=== PATIENT | female | born 1975 | race Caucasian/White ===

== ENCOUNTER 2017-12-12 21:51 | Emergency (ER) | payer MEDICAID, SELFPAY ==
[2017-12-12 21:52] VITALS: BP 132/83; PULSE 81; RESP 16; TEMP 36.1; BMI 29.5
--- NOTE | 2017-12-12 22:10 | ED.DCSUM_ITS ---
- ER Visit Summary Date of Service: 12/12/17 Chief Complaint: Headache History of Present Illness: The patient is a 42 F presenting with headache. She states this has been ongoing for over a month. She states that she has a history of migraine headaches. She is seen by neurology at [facility]. She was seen by her neurologist yesterday and had 2 nerve blocks. She is scheduled for surgery on December 21 for her migraines. She denies fever. Denies numbness or weakness. Denies new complaints. Physical Examination: Vitals are stable. Patient is afebrile. Alert no acute distress. HEENT exam is unremarkable. Neck is supple. No meningismus Lungs are clear and equal bilaterally. Heart is regular rate and rhythm. Abdomen is soft nontender nondistended. Extremities are unremarkable. Skin is warm and dry. No focal neurologic deficit. Remainder of exam is unremarkable. Emergency Department Course and Treatment: Patient is given Dilaudid, Zofran, Toradol IM due to multiple allergies. On repeat evaluation, she is resting comfortably. She continues to complain of headache but is comfortable with discharge home. She states this is typical pain for her and it has been ongoing for over a month. She will follow-up with her neurologist in [place]. She is advised to return to ED for any worsening complaints. Disposition: Discharge home Impression: Headache This note was generated with [employer] dictation software. It may contain incorrect words, spelling, and punctuation that were not noted in review of the chart prior to signing ED Disposition - Plan for ED Patient: Chief Complaint: Headache Referrals: Jimenez Stewart Jr., MD [Primary Care Provider] -
[2017-12-12] MEDS: Ketorolac 60 MG/2 ML Vial IM (22:14)
[2017-12-12] MEDS: HYDROmorphone 1 MG/ML Syringe IM (22:14)
[2017-12-12] MEDS: Ondansetron 4 MG/2 ML Vial IM (22:36)
--- NOTE | 2017-12-12 22:57 | ED.DEP ---
ED Disposition - Plan for ED Patient: Chief Complaint: Headache Instructions: ED Headache Migraine Referrals: Jimenez Stewart Jr., MD [Primary Care Provider] -
[2017-12-12 23:04] VITALS: BP 107/68; PULSE 68; RESP 17; O2SAT 98
--- NOTE | 2017-12-12 23:05 | ED.RN ---
PT GIVEN WRITTEN AND VERBAL DISCHARGE INSTRUCTIONS. PT VERBALIZES UNDERSTANDING AND DENIES ANY FURTHER QUESTIONS. IV D/C BY KENYETTA VARGAS RN. PT EDUCATED NOT TO DRIVE AFTER HAVING NARCOTIC MEDICATION. PT FATHER TAKING HER HOME AND IS PRESENT AT BEDSIDE. PT AMBULATORY OUT OF DEPT WITHOUT ASSISTANCE NEEDED FROM STAFF. PT REPORTS NO IMPROVEMENT IN HER HEADACHE.
== END 2017-12-12 23:09 | disposition home or self-care (01) ==
PROVIDERS: Emergency Provider Emergency Medicine; Family Provider Internal Medicine; PCP Internal Medicine
DX: R51 Headache (principal); Z79.899 Other long term (current) drug therapy
CPT/HCPCS: 96372; 99284; J7030; A4216

== ENCOUNTER 2018-05-06 21:33 | Emergency (ER) | payer MEDICAID, SELFPAY ==
[2018-05-06 21:34] VITALS: BP 116/65; PULSE 83; RESP 14; TEMP 36.2; O2SAT 100; BMI 26.2
[2018-05-06 21:39] VITALS: BP 120/60; PULSE 80; RESP 14; O2SAT 98
[2018-05-06] MEDS: Ketorolac 60 MG/2 ML Vial IM (21:50)
[2018-05-06] MEDS: Ondansetron 4 MG/2 ML Vial IM (21:50)
--- NOTE | 2018-05-06 21:53 | ED.VISSUMM ---
- ER Visit Summary Date of Service: 05/06/18 Chief Complaint: Headache History of Present Illness: The patient is a 42 F with a headache for 3 days. The pain is mostly frontal bilaterally. Worse with light and sound. Associated with nausea. She tried [id number] remedies but nothing seems to help. She has multiple medication allergies. Physical Examination: Afebrile and vital signs unremarkable. Cranial nerves grossly intact. Nonfocal neurologic exam grossly. Skin appears normal. Sitting comfortably. Alert and oriented. Test Results: None indicated Emergency Department Course and Treatment: Patient has a recurrent migraine. She has multiple medication allergies. During her last visit she was treated with Zofran, Toradol, and Dilaudid. Patient received the same today. Was advised to follow-up with her primary care doctor. Return for any new or worsening issues. Treatment Plan: As above Disposition: Discharged Impression: 1. Migraine This note was generated with [employer] dictation software. It may contain incorrect words, spelling, and punctuation that were not noted in review of the chart prior to signing ED Disposition - Plan for ED Patient: Chief Complaint: Headache Referrals: Jimenez Stewart Jr., MD [Primary Care Provider] -
[2018-05-06] MEDS: HYDROmorphone 0.5 MG/0.5 ML SYRINGE SC (21:54)
--- NOTE | 2018-05-06 21:55 | ED.DEP ---
ED Disposition - Plan for ED Patient: Chief Complaint: Headache Instructions: ED Headache Migraine Referrals: Jimenez Stewart Jr., MD [Primary Care Provider] -
[2018-05-06 22:11] VITALS: RESP 18
== END 2018-05-06 22:11 | disposition home or self-care (01) ==
LOC: ED 21:57
PROVIDERS: Emergency Provider Emergency Medicine; Family Provider Internal Medicine; PCP Internal Medicine
DX: G43.909 Migraine, unspecified, not intractable, without status migrainosus (principal); G40.909 Epilepsy, unspecified, not intractable, without status epilepticus; I34.1 Nonrheumatic mitral (valve) prolapse; Z79.899 Other long term (current) drug therapy
CPT/HCPCS: 96372; 99282; J2405

== ENCOUNTER 2018-05-07 22:32 | Emergency (ER) | payer MEDICAID, SELFPAY ==
[2018-05-07 22:34] VITALS: BP 116/80; PULSE 73; RESP 14; TEMP 36.4; O2SAT 98; BMI 29.2
--- NOTE | 2018-05-07 22:49 | ED.VISSUMM ---
- ER Visit Summary Date of Service: 05/07/18 Chief Complaint: Migraine headache History of Present Illness: The patient is a 42 F history of migraine headaches for years. She has had extensive evaluation include infusions at the [facility]. States the last several days she has had recurrent migraines. Associated photophobia. She denies vomiting. She denies fever. She denies any recent head trauma. No sinus congestion. No family history of intracranial bleeds. She has had prior imaging in the past. Physical Examination: Well-appearing middle-age female. Seated in a darkened room. Vital signs are stable. She is afebrile. She does not look septic or toxic. She is in no acute distress. H EENT exam pupils round reactive light. Extra motions are intact. No facial droop. Normal speech. No frontal or maxillary sinus tenderness. No signs of trauma. Neck nontender. No lymphadenopathy. No meningismus. Able to touch chin to chest. Lungs clear to auscultation bilaterally. Heart regular rhythm no murmur. Abdomen soft nontender. She is moving all 4 extremities. They are neurovascularly intact. 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 Bilateral dorsi and plantar flexion. Back nontender. Neurologically she is awake alert with 0. Fingertip to nose and heel to rico all within normal limits. Test Results: None Emergency Department Course and Treatment: Patient has frequent visits to [facility] ER. She requested Dilimanid I explained I do not use that to treat chronic headaches. She will be given IM Toradol and p.o. Reglan. She does not want an IV. She does not want IV fluids. She wants her injections and wants to be discharged home. Treatment Plan: Continue her current medications at home. Disposition: Discharge Impression: Acute cephalgia with a history of migraine headaches This note was generated with [employer] dictation software. It may contain incorrect words, spelling, and punctuation that were not noted in review of the chart prior to signing ED Disposition - Plan for ED Patient: Chief Complaint: Headache Referrals: Jimenez Stewart Jr., MD [Primary Care Provider] -
--- NOTE | 2018-05-07 22:52 | ED.DCSUM_ITS ---
- ER Visit Summary Date of Service: 05/07/18 Chief Complaint: Migraine headache History of Present Illness: The patient is a 42 F history of migraine headaches for years. She has had extensive evaluation include infusions at the [facility]. States the last several days she has had recurrent migraines. Associated photophobia. She denies vomiting. She denies fever. She denies any recent head trauma. No sinus congestion. No family history of intracranial bleeds. She has had prior imaging in the past. Physical Examination: Well-appearing middle-age female. Seated in a darkened room. Vital signs are stable. She is afebrile. She does not look septic or toxic. She is in no acute distress. H EENT exam pupils round reactive light. Extra motions are intact. No facial droop. Normal speech. No frontal or maxillary sinus tenderness. No signs of trauma. Neck nontender. No lymphadenopathy. No meningismus. Able to touch chin to chest. Lungs clear to auscultation bilaterally. Heart regular rhythm no murmur. Abdomen soft nontender. She is moving all 4 extremities. They are neurovascularly intact. 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 Bilateral dorsi and plantar flexion. Back nontender. Neurologically she is awake alert with 0. Fingertip to nose and heel to rico all within normal limits. Test Results: None Emergency Department Course and Treatment: Patient has frequent visits to [facility] ER. She requested Dilimanid I explained I do not use that to treat chronic headaches. She will be given IM Toradol and p.o. Reglan. She does not want an IV. She does not want IV fluids. She wants her injections and wants to be discharged home. Treatment Plan: Continue her current medications at home. Disposition: Discharge Impression: Acute cephalgia with a history of migraine headaches This note was generated with [employer] dictation software. It may contain incorrect words, spelling, and punctuation that were not noted in review of the chart prior to signing ED Disposition - Plan for ED Patient: Chief Complaint: Headache Referrals: Jimenez Stewart Jr., MD [Primary Care Provider] -
--- NOTE | 2018-05-07 22:52 | ED.DEP ---
ED Disposition - Plan for ED Patient: Disposition: Home or Assisted Living Chief Complaint: Headache Instructions: ED Headache Migraine Referrals: Jimenez Stewart Jr., MD [Primary Care Provider] - As Needed Additional Instructions: Follow-up with your doctors as needed.
[2018-05-07] MEDS: Ketorolac 60 MG/2 ML Vial IM (23:12)
[2018-05-07 23:16] VITALS: BP 110/77; PULSE 63; RESP 16; O2SAT 99
== END 2018-05-07 23:35 | disposition home or self-care (01) ==
PROVIDERS: Emergency Provider Emergency Medicine; Family Provider Internal Medicine; PCP Internal Medicine
DX: G43.909 Migraine, unspecified, not intractable, without status migrainosus (principal); G40.909 Epilepsy, unspecified, not intractable, without status epilepticus; Z79.899 Other long term (current) drug therapy
CPT/HCPCS: 96372; 99282

== ENCOUNTER 2018-09-24 20:50 | Emergency (ER) | payer MEDICAID, SELFPAY ==
[2018-09-24 20:51] VITALS: BP 112/68; PULSE 77; RESP 18; TEMP 36.2; O2SAT 95; BMI 30.3
[2018-09-24] MEDS: Metoclopramide 10 MG Tablet PO (21:15)
[2018-09-24] MEDS: Ketorolac 60 MG/2 ML Vial IM (21:16)
--- NOTE | 2018-09-24 22:31 | ED.VISSUMM ---
- ER Visit Summary Date of Service: 09/24/18 Chief Complaint: Headache History of Present Illness: The patient is a 43 F who presents with a headache. She said this headache for months. She has a history of a chronic migraine. This is similar to her previous migraines. She has had nausea with vomiting with blurred vision. She has had Botox, continuous infusions as well as a nerve block to help with her headaches. She took multiple bottles of Excedrin over the past couple of days to help with her headache is not getting any better. Denies any fevers. Physical Examination: Vital signs reviewed. HEENT exam unremarkable. Heart is regular rate and rhythm without murmurs. Lungs are clear to auscultation. Abdomen is soft and nontender. Extremities reveal no edema. Skin exam normal. Neurologic exam normal. Test Results: None performed Emergency Department Course and Treatment: Patient was given Toradol and Reglan which did not help. I offered to insert an IV and give her IV steroids and magnesium but she did not want an IV. I re-medicate her with Toradol and then discharged home. She has been seen here many times for migraines in the past. I do not feel imaging is necessary. She will need to call her neurologist and other doctors for follow-up appointments and for further pain medications. Treatment Plan: [] Disposition: Discharge Impression: Migraine headache This note was generated with [employer] dictation software. It may contain incorrect words, spelling, and punctuation that were not noted in review of the chart prior to signing ED Disposition - Plan for ED Patient: Referrals: Jimenez Stewart Jr., MD [Primary Care Provider] -
[2018-09-24] MEDS: Ketorolac 15 MG/ML Vial IM (22:33)
--- NOTE | 2018-09-24 22:33 | ED.DEP ---
ED Disposition - Plan for ED Patient: Disposition: Home or Assisted Living Instructions: ED Headache Migraine Referrals: Jimenez Stewart Jr., MD [Primary Care Provider] -
[2018-09-24 22:59] VITALS: BP 98/65; PULSE 77; RESP 16; O2SAT 95
--- NOTE | 2018-09-24 23:00 | ED.RN ---
PT REFUSED IV, REQUESTED ANOTHER SHOT OF TORADOL
== END 2018-09-24 23:00 | disposition home or self-care (01) ==
PROVIDERS: Emergency Provider Emergency Medicine; Family Provider Internal Medicine; PCP Internal Medicine
DX: G43.909 Migraine, unspecified, not intractable, without status migrainosus (principal); Z79.899 Other long term (current) drug therapy
CPT/HCPCS: 96372; 99283

== ENCOUNTER → 2018-10-18 12:25 | Outpatient (CLI) | payer MEDICAID, SELFPAY ==
[2018-09-24 20:51] VITALS: BMI 30.3
--- NOTE | 2018-10-18 12:28 | VDLE_ITS ---
Reason For Study: Edema RIGHT LEFT CFV is compressible, spontaneous, phasic, GSV is normal. competent and demonstrates normal CFV is compressible, spontaneous, phasic, augmentation. competent, and demonstrates normal Procedure augmentation. Exam performed in department. FV is compressible, spontaneous, phasic, The exam was diagnostic. competent and demonstrates normal A preliminary report was called and/or faxed augmentation. to Dr Mead @ [phone] @ 1:15 pm. POP V is compressible, spontaneous, phasic, competent and demonstrates normal augmentation. T/P Trunk is compressible. PTV is compressible. LT PerV is compressible. Interpretation Summary Deep veins of the left lower extremity are patent and compressible segmentally. There is no evidence of left lower extremity deep vein thrombosis. Valvular competence appears intact within the proximal deep venous system on the left . The left greater saphenous vein appears patent and compressible segmentally. Ordering Physician: Stan Mead Referring Physician: Jimenez Stewart Performed By: Trang Monsalve, LORI, RVT
== END ==
PROVIDERS: Family Provider Internal Medicine; PCP Internal Medicine; Referring Provider Podiatrist; Visit Provider Podiatrist
DX: R60.0 Localized edema (principal)
CPT/HCPCS: 93971

== ENCOUNTER → 2018-10-18 14:39 | Outpatient (CLI) | payer MEDICAID, SELFPAY ==
[2018-09-24 20:51] VITALS: BMI 30.3
--- NOTE | 2018-10-18 15:10 | CT_ITS ---
STUDY: CT LEFT FOOT REASON FOR EXAM: Female, 43 years old. Remote injury. Continued pain and limited range of motion. RADIATION DOSAGE (If Supplied By Facility): CTDIvol = ( 15.35 ) mGy, DLP = ( 331.96 ) mGycm TECHNIQUE: Thin section transaxial imaging of the foot was obtained, with sagittal and coronal reconstructed images. Individualized dose optimization techniques were used for this CT. COMPARISON: None. FINDINGS: Normal talus, calcaneus, and tarsal bones. Normal visualized tibiotalar, subtalar, talonavicular, calcaneocuboid. The patient is status post open reduction and internal fixation with arthrodesis at the first cuneiform first metatarsal joint using screw and plate fixation device. Normal metatarsi. Normal metatarsophalangeal joint of the great toe. Normal tibial and fibular sesamoid bones. Normal interphalangeal joint of the great toe. Normal phalanges of the great toe. Normal second through fifth metatarsophalangeal joints. Normal interphalangeal joints and phalanges of the lesser toes. Soft tissue swelling. CT/Extremity Lower without Contra IMPRESSION: Status post open reduction internal fixation and fusion at the first cuneiform metatarsal joint with screw and plate fixation device. Soft tissue swelling. Electronically Signed: Go Armas, at 9:32 EDT , Service support ,
== END ==
PROVIDERS: Family Provider Internal Medicine; PCP Internal Medicine; Referring Provider Podiatrist; Visit Provider Podiatrist
DX: M19.072 Primary osteoarthritis, left ankle and foot (principal); M96.0 Pseudarthrosis after fusion or arthrodesis; R60.0 Localized edema; I82.402 Acute embolism and thrombosis of unspecified deep veins of left lower extremity
CPT/HCPCS: 73700; 93971

== ENCOUNTER 2018-10-22 14:27 | Emergency (ER) | payer MEDICAID, SELFPAY ==
[2018-10-22 14:27] VITALS: BP 111/68; PULSE 79; RESP 14; TEMP 36.6; O2SAT 99; BMI 26.0
--- NOTE | 2018-10-22 14:43 | ED.VISSUMM ---
- ER Visit Summary Date of Service: 10/22/18 Chief Complaint: Intractable migraine History of Present Illness: The patient is a 43 F with history of chronic migraines who presents for 2 months of an intractable migraine headache. Patient states she was seen by her neurologist 5 days ago, and at that time was prescribed a new migraine medication but has not yet arrived in the mail. Patient has pain all over with associated nausea, vomiting and photophobia. Patient states this is typical for her migraines, however this is worse than normal and lasting longer than normal as well. She states she is refractory to all migraine treatments, including Botox, infusions, sphenopalatine blocks, and most medications. Patient states magnesium and steroids do not work. Patient states she just is looking for little relief and what she received at her last visit here helped. Physical Examination: Vital signs: afebrile, hemodynamically stable, no hypoxia on room air General: well nourished, well developed, in no distress, tolerating bright lights on in the room Skin: warm, dry, no rash, no pallor HEENT: normocephalic and atraumatic; PERRL, EOMI, moist mucous membranes, neck is supple without any meningismus Cardiovascular: regular rate and rhythm without murmurs, no peripheral edema, 2+ pulses all distal extremities Respiratory: No increased work of breathing, lungs are clear to auscultation bilaterally, no rales, rhonchi or wheezing Abdominal: Abdomen is soft, nontender with normoactive bowel sounds, no guarding or rebound, no masses MSK: Moves all extremities, no deformities, normal strength Neuro: Awake and alert, oriented ?4. No facial droop, sensation and motor function intact and symmetric Test Results: Medications Given Discontinued Medications Sodium Chloride () 1,000 mls @ 999 mls/hr IV .Q1H1M ONE Stop: 10/22/18 15:43 Last Admin: 10/22/18 15:01 Dose: 999 mls/hr Ketorolac Tromethamine (Toradol) 30 mg IV X1 ONE Stop: 10/22/18 14:44 Last Admin: 10/22/18 15:01 Dose: 30 mg Metoclopramide HCl (Reglan) 10 mg IV X1 ONE Stop: 10/22/18 14:44 Last Admin: 10/22/18 15:01 Dose: 10 mg Emergency Department Course and Treatment: Patient is complaining of a severe migraine headache with associated photophobia, however she appears comfortable with the lights on. Patient was offered multiple interventions, including a migraine cocktail, steroids, magnesium, and a sphenopalatine block, and she stated none of these would help. When asked what her goal for the visit was, she stated that her occasions she got at her last visit helped. Chart review shows she got Toradol and Reglan at that time. Patient was given Toradol and Reglan. On reevaluation, patient's pain was now rated 7 out of 10, and she stated that was much better. She felt that was adequate improvement and requested discharge and states she is going to go home and take a nap. Patient was discharged in improved condition, still tolerating the lights on without any difficulty and with no focal neuro deficits. Treatment Plan: [] Disposition: [] Impression: Chronic migraines, intractable migraine headache This note was generated with [employer] dictation software. It may contain incorrect words, spelling, and punctuation that were not noted in review of the chart prior to signing ED Disposition - Plan for ED Patient: Disposition: Home or Assisted Living Instructions: ED Headache Migraine Referrals: Jimenez Stewart Jr., MD [NON-STAFF] - As Needed Additional Instructions: Please follow-up with your neurologist if you continue to have poorly controlled migraine headaches, especially if the new medication does not work. If you have any worsening of your condition or any new concerning symptoms, please return immediately to the emergency department for another evaluation.
[2018-10-22] MEDS: 0.9% Normal Saline 1,000 ML 999 ML IV (15:01)
[2018-10-22] MEDS: Metoclopramide 10 MG/2 ML Vial IV (15:01)
[2018-10-22] MEDS: Ketorolac 30 MG/ML Syringe IV (15:01)
== END 2018-10-22 16:26 | disposition home or self-care (01) ==
PROVIDERS: Emergency Provider Emergency Medicine
DX: G43.919 Migraine, unspecified, intractable, without status migrainosus (principal)
CPT/HCPCS: 96361; 96374; 96375; 99283; J7030; A4216

== ENCOUNTER 2019-04-11 11:40 | Emergency (ER) | payer MEDICAID, SELFPAY ==
[2019-02-16 13:22] VITALS: BMI 26.0
[2019-04-11 11:41] VITALS: BP 111/71; PULSE 87; RESP 17; TEMP 36.1; O2SAT 100; BMI 24.5
[2019-04-11 12:42] VITALS: O2SAT 100
--- NOTE | 2019-04-11 12:42 | EKG12_ITS ---
Test Reason : PALPS Blood Pressure : / mmHG Vent. Rate : 078 BPM Atrial Rate : 078 BPM P-R Int : 180 ms QRS Dur : 096 ms QT Int : 378 ms P-R-T Axes : 035 -32 038 degrees QTc Int : 430 ms Normal sinus rhythm Left axis deviation Low voltage QRS Possible Anterolateral infarct , age undetermined Abnormal ECG Confirmed by CANDELARIA GOLDSMITH, TOMAS ([id number]), writer editor RHIANNON BADILLO ([id number]) on 04/12/2019 11:46:34 AM Referred By: FLOR Confirmed By:TOMAS GAONA MD
--- NOTE | 2019-04-11 12:45 | RAD_ITS ---
STUDY: X-RAY CHEST REASON FOR EXAM: Female, 43 years old. Nausea and shortness of breath. TECHNIQUE: Single frontal view of the chest. COMPARISON: September 08, 2014 FINDINGS: Low volume inspiration. There is no demonstrated pleural abnormality. Normal size heart. Normal mediastinum and padmini. Normal visualized pulmonary arteries. Normal visualized aortic arch and descending thoracic aorta. Normal visualized thoracic spine. Normal visualized ribs, clavicles, and shoulders. There is no demonstrated abnormality of the visualized soft tissue structures of the upper abdomen. RAD/Chest 1 View (Portable) IMPRESSION: No active or acute cardiopulmonary disease. Electronically Signed: Fletcher Burden MD at 13:00 EDT , Service support ,
--- NOTE | 2019-04-11 12:49 | ED.DCSUM_ITS ---
- ER Visit Summary Date of Service: 04/11/19 Chief Complaint: Heart racing History of Present Illness: The patient is a 43 F history of seizure disorder on medications. States she times her heart was racing. No chest pain. She is never happened before. No history of DVT or PE. No recent travel or surgery. No leg pain or swelling. No hemoptysis. Currently she states she still feels like her heart is racing even though her heart rates in the 70s. She denies any nausea, vomiting or diarrhea. No fever or chills. No melena. Physical Examination: Middle-aged female. No acute distress. Vital signs are stable. She is afebrile. Her heart rate 87 and her pulse ox is 90% on room air no signs of hypoxia. H EENT exam unremarkable. Neck nontender no thyromegaly. No lymphadenopathy. Lungs clear to auscultation bilaterally. Heart regular rate and rhythm rate about 80 no murmur S1 nontender. Abdomen soft nontender. Normal bowel sounds no peritoneal signs. All 4 extremities. Neurovascular intact. Calves are nontender without edema or cords. Neurologically she is awake and alert with no focal motor deficits. Test Results: EKG shows sinus rhythm rate is 78 with no acute signs of DE or ischemia. CBC normal hemoglobin 13. Chemistries unremarkable normal gap and creatinine. Troponin normal. Chest x-ray normal cardiac silhouette mediastinum read by myself portable one view. Emergency Department Course and Treatment: Exam is normal currently heart rates in the 70s to 80s range. There is no murmur. She will undergo cardiac work-up. Repeat exam at 15 10 PM patient is doing well. She and I went over all the test results. She is comfortable being discharged home. Treatment Plan: Follow-up with a local primary care physician. Return if feeling worse. Disposition: Discharge Impression: Palpitations with heart racing of uncertain etiology and resolved This note was generated with [employer] dictation software. It may contain incorrect words, spelling, and punctuation that were not noted in review of the chart prior to signing ED Disposition - Plan for ED Patient: Referrals: Rae Aguayo NP-C [Primary Care Provider] -
[2019-04-11 13:00] VITALS: BP 115/74; PULSE 72; RESP 17; O2SAT 100
[2019-04-11 13:05] LABS: Absolute Lymphocyte Count 1.02 X10^3/uL (0.83-4.51); Absolute Neutrophil Count 4.7 X10^3/uL (2.0-7.7); Basophil# 0.02 X10^3/uL; Basophil% 0.3 % (0-1); Eosinophil# 0.17 X10^3/uL; Eosinophils% 2.7 % (0-5); Hematocrit 41.5 % (37-47); Hemoglobin 13.6 g/dL (12.0-15.0); Lymphocyte # 1.02 X10^3/ul (4.0); Lymphocyte % 16.3 % (19-41); Mean Corp Hgb Conc 32.8 g/dL (32-36); Mean Corpuscular Hgb 29.5 pg (27.0-32.0); Monocyte# 0.37 X10^3/uL; Monocyte% 5.9 % (0-10); NRBC Flagged by Analyzer 0 % (0-5); Neutrophil # 4.67 X10^3/uL (2.7-7.7); Neutrophil % 74.6 % (47-70); Platelet Count 199 K/mm3 (150-450); RBC Distribution Width CV 12.9 % (11.6-14.6); RBC Distribution Width SD 42.4 fl (35.1-43.9); Red Blood Count 4.61 M/mm3 (4.2-5.4); White Blood Count 6.3 K/mm3 (4.4-11.0)
[2019-04-11 13:21] LABS: Anion Gap 5 (5-15); BUN 13 mg/dL (7-18); BUN/Creat Ratio 15.5 RATIO (10-20); Chloride 108 mmol/L (98-107); Creatinine, Serum 0.84 mg/dL (0.55-1.02); EST Glomerular Filtration Rate 78 mL/min (>60); Est Glom Filt Rate - Afr Amer 95 mL/min (>60); Estimated Creatinine Clearance 64.49 ml/min; Glucose 95 mg/dL (74-106); Potassium 3.8 mmol/L (3.5-5.1); Sodium Level 140 mmol/L (136-145)
[2019-04-11 14:08] VITALS: BP 106/75; PULSE 69; RESP 18; O2SAT 100
--- NOTE | 2019-04-11 14:14 | ED.DEP ---
ED Disposition - Plan for ED Patient: Disposition: Home or Assisted Living Instructions: Palpitations Referrals: Rae Aguayo NP-C [Primary Care Provider] - As soon as possible Additional Instructions: Follow-up with primary care provider. Return if worse.
== END 2019-04-11 14:20 | disposition home or self-care (01) ==
PROVIDERS: Emergency Provider Emergency Medicine; Family Provider Family Medicine; PCP Family Medicine
DX: R00.0 Tachycardia, unspecified (principal); R00.2 Palpitations; G40.909 Epilepsy, unspecified, not intractable, without status epilepticus; Z79.899 Other long term (current) drug therapy
CPT/HCPCS: 71045; 80048; 84484; 85025; 93005; 99284; A4216

== ENCOUNTER 2019-04-24 19:20 | Emergency (ER) | payer MEDICAID, SELFPAY ==
[2019-04-24 19:22] VITALS: BP 122/82; PULSE 95; RESP 16; TEMP 37; O2SAT 100; BMI 31.4
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
[2019-04-24] MEDS: Ondansetron ODT 4 MG Tablet PO (19:45)
[2019-04-24] MEDS: Naproxen 500 MG Tablet PO (19:45)
[2019-04-24 19:56] VITALS: BP 113/80; PULSE 87; RESP 16; O2SAT 98
== END 2019-04-24 19:58 | disposition home or self-care (01) ==
PROVIDERS: Emergency Provider Emergency Medicine; Family Provider Family Medicine; PCP Family Medicine
DX: S06.0X1A Concussion with loss of consciousness of 30 minutes or less, initial encounter (principal); Y04.2XXA Assault by strike against or bumped into by another person, initial encounter; Y93.89 Activity, other specified; Y92.89 Other specified places as the place of occurrence of the external cause; Y99.8 Other external cause status
CPT/HCPCS: 99283

== ENCOUNTER 2019-05-03 17:47 | Emergency (ER) | payer MEDICAID, SELFPAY ==
[2019-05-03 17:48] VITALS: BP 118/82; PULSE 71; RESP 18; TEMP 36.6; O2SAT 100; BMI 26.0
--- NOTE | 2019-05-03 18:20 | CT_ITS ---
STUDY: CT BRAIN WITHOUT CONTRAST REASON FOR EXAM: Female, 43 years old. Headaches with dizziness RADIATION DOSAGE (If Supplied By Facility): CTDIvol = ( 44.99 ) mGy, DLP = ( 745.49 ) mGycm TECHNIQUE: Transaxial CT imaging of the brain was performed without administration of intravenous contrast material. Individualized dose optimization techniques were used for this CT. COMPARISON: No relevant priors. FINDINGS: Normal soft tissue structures. Normal calvarium. Normal size ventricles and extra-axial spaces for the patient's age. Normal white matter tracts of the cerebral hemispheres. Normal basal ganglia and thalami. Normal brainstem. Normal cerebellum. There is no intracranial hemorrhage. There are no findings of an acute ischemic infarction. Large mucous retention cyst noted in the right maxillary sinus CT/Brain/Head without Contrast IMPRESSION: Normal unenhanced CT scan of the brain. Right maxillary sinus mucous retention cyst Electronically Signed: Stan Shields MD at 19:11 EDT , Service support ,
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
[2019-05-03 19:31] VITALS: RESP 16
== END 2019-05-03 19:31 | disposition home or self-care (01) ==
LOC: ED 18:41
PROVIDERS: Emergency Provider Emergency Medicine; Family Provider Family Medicine; PCP Family Medicine
DX: F07.81 Postconcussional syndrome (principal)
CPT/HCPCS: 70450; 99282

== ENCOUNTER → 2019-09-13 | Outpatient (CLI) | payer MEDICAID, SELFPAY ==
[2019-09-13 13:32] VITALS: BMI 26.0
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
== END | disposition home or self-care (01) ==
LOC: HPRAD 13:41
PROVIDERS: PCP Family Medicine; Referring Provider Physician Assistant; Visit Provider Physician Assistant
DX: S69.91XA Unspecified injury of right wrist, hand and finger(s), initial encounter (principal)
CPT/HCPCS: 73130

== ENCOUNTER → 2019-09-30 | Outpatient (CLI) | payer MEDICAID, SELFPAY ==
[2019-09-13 13:32] VITALS: BMI 26.0
--- NOTE | 2019-09-30 15:21 | MRI_ITS ---
STUDY: MRI RIGHT HAND REASON FOR EXAM: Female, 44 years old. RIGHT HAND PAIN ATTENTION FIRST METACARPAL AND CMC TECHNIQUE: Standardized fat and water weighted pulse sequences were obtained in all 3 orthogonal planes. COMPARISON: X-ray of the right hand dated December 14, 2016 and September 13, 2019 FINDINGS: FIRST DIGIT: Benign enchondromatosis throughout the shaft of the metacarpal bone of the thumb with chondroid lobular matrix minimal cortical thinning/scalloping, but no malignant features such as bony destruction or cortical breakthrough. There is mild enhancement on the postcontrast study. There is mild to moderate narrowing of the CMC articulation associated with subchondral cystic changes, tiny effusion, and mild synovitis and edema at the periphery of the joint. Minimal lateral subluxation of the metacarpal bone is also present. Normal interphalangeal joint. Normal proximal, and distal phalanges. Normal flexor and extensor tendons. There is no soft tissue abnormality. The remaining joints and osseous structures are within normal limits. No occult fractures are seen. No marrow edema. Normal carpal bones. Normal radiocarpal articulation. A large oblique tear is present through the body and ulnar side of the triangle fiber cartilage complex resulting in a small amount of fluid at the undersurface. Normal visualized thenar and hypothenar muscles. Normal lumbricalis and interosseous muscles. There are no solid, cystic or lipomatous masses. No focal or suspicious enhancement of the synovium or bony structures or soft tissue structures of the then was seen in the first CMC articulation. MRI/Upper Ext No Joint W/WO Cont IMPRESSION: 1. Mild to moderate degenerative changes of the first CMC articulation 2. 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 3. Mild synovitis of the first CMC 4. Large oblique tear of the triangle fibrocartilage complex. Electronically Signed: Ivan Parker MD at 16:42 EST , Service support ,
== END | disposition home or self-care (01) ==
LOC: MRI 15:21
PROVIDERS: PCP Family Medicine; Referring Provider Physician Assistant; Visit Provider Physician Assistant
DX: M19.041 Primary osteoarthritis, right hand (principal); M85.641 Other cyst of bone, right hand; M79.644 Pain in right finger(s)
CPT/HCPCS: 73220; A9575

== ENCOUNTER 2020-01-23 22:10 | Emergency (ER) | payer MEDICAID, SELFPAY ==
[2019-11-11 09:16] VITALS: BMI 26.0
[2020-01-23 22:12] VITALS: BP 134/63; PULSE 78; RESP 17; TEMP 36.1; O2SAT 100; BMI 33.0
--- NOTE | 2020-01-23 22:32 | RAD_ITS ---
STUDY: X-RAY - RIGHT ELBOW REASON FOR EXAM: Female, 44 years old. FALL, PAIN IN ELBOW WITH NUMBNESS. TECHNIQUE: 3 view(s) of the elbow. COMPARISON: None. FINDINGS: Normal visualized humerus, radius and ulna. Normal radiocapitellar and ulnotrochlear articulations. The soft tissue structures are unremarkable. RAD/Elbow min 3 Views IMPRESSION: Normal x-ray examination of the elbow. Electronically Signed: Elier Gaytan MD at 22:59 EDT , Service support ,
--- NOTE | 2020-01-23 23:11 | ED.DCSUM_ITS ---
- ER Visit Summary Date of Service: 01/23/20 Chief Complaint: Fall History of Present Illness: The patient is a 44 F with a mechanical fall from standing. She landed on her right elbow. She has pain with movement of her right elbow and with pronation supination. She also has some numbness down her right ulnar forearm. She did not hit her head or neck. Did not lose consciousness. No other complaints. Physical Examination: Afebrile and vital signs unremarkable. Head and neck a traumatic. Right elbow has tenderness over the olecranon process and pain with range of motion and supination pronation. Ulnar distribution paresthesias noted. Test Results: X-rays negative. No posterior fat pad noted. Emergency Department Course and Treatment: Patient was placed in a sling. X- rays were unremarkable. There is no obvious fracture, but there may be a small fracture that is not visualized on the x-rays today. Outpatient follow-up. She has neuropraxia which I suspect will resolve with time. She was placed in a sling. She has follow-up with Dr. Randolph for her hand scheduled already and will follow-up for her elbow at that time. Treatment Plan: As above Disposition: Discharge Impression: Right elbow injury, neuropraxia This note was generated with [employer] dictation software. It may contain incorrect words, spelling, and punctuation that were not noted in review of the chart prior to signing ED Disposition - Plan for ED Patient: Referrals: Rae Aguayo NP-C [Primary Care Provider] -
--- NOTE | 2020-01-23 23:13 | ED.DEP ---
ED Disposition - Plan for ED Patient: Instructions: ED ELBOW CONTUSION Referrals: Irene Randolph DO [STAFF PHYSICIAN] -
== END 2020-01-23 23:19 | disposition home or self-care (01) ==
LOC: ED 22:52
PROVIDERS: Emergency Provider Emergency Medicine; PCP Family Medicine
DX: S44.01XA Injury of ulnar nerve at upper arm level, right arm, initial encounter (principal); W18.30XA Fall on same level, unspecified, initial encounter; Y93.89 Activity, other specified; Y92.89 Other specified places as the place of occurrence of the external cause; Y99.8 Other external cause status
CPT/HCPCS: 73080; 99283

== ENCOUNTER 2020-02-01 11:48 | Day surgery (SDC) | payer MEDICAID, SELFPAY ==
[2019-11-11 09:16] VITALS: BMI 26.0
[2020-02-01 12:11] VITALS: BP 101/71; PULSE 86; RESP 16; TEMP 36.8; O2SAT 100; BMI 32.3
[2020-02-01] MEDS: Lactated Ringers 1,000 ML 100 ML IV (12:25)
[2020-02-01] MEDS: Cefazolin 2 GM in 0.9% Normal Saline 100 ML IV (14:18)
[2020-02-01] MEDS: Mupirocin Ointment 22gm Tube 1 APPLIC (14:44)
--- NOTE | 2020-02-01 14:56 | DCINST_ITS ---
Discharge Diet: No Restrictions Discharge Activity: Return to Normal Activity, May not drive while taking narcotic pain medications. May shower in (days): 1 Ice area for (Minutes): 20 - Ice area for 20 minutes each hour while awake Weight Bearing Status: Weight bearing as tolerated Keep extremity elevated above heart level: Operative Extremity Call your doctor if your incision/area has: Continuous Slow Oozing, Sudden Increased Bleeding, Increased Pain/ Swelling, Increased Redness, Foul Smelling Discharge Call your doctor if you observe: Fever of 101 or Higher, Coldness, Increased Pain, Numbness or Tingling, Change in Color Suture Line Care: Avoid Pulling/Pushing Change Dressing in (Days):: 0 Remove Dressing in (days):: 4 Cleanse incision/area with: Soap & Water Additional Dressing/Incision Instructions:: Keep dressing clean and dry until taken off in 4 days. Can clean with soap and water and apply bandage/dressing once dry Allergies/Adverse Reactions: Allergies aspirin Allergy (Verified 02/01/20 12:10) Rash codeine Allergy (Verified 02/01/20 12:10) Rash morphine Allergy (Verified 02/01/20 12:10) Rash Penicillins Allergy (Verified 02/01/20 12:10) Rash diphenhydramine HCl [From Benadryl] Adverse Reaction (Verified 02/01/20 12:10) Other promethazine HCl [From Phenergan] Adverse Reaction (Verified 02/01/20 12:10) Other SEAFOOD Allergy (Uncoded 02/01/20 12:10) Rash Medications to take at Discharge Lamotrigine [Lamictal] 600 mg PO TID 06/06/13 Oxycodone HCl/Acetaminophen [Oxycodone-Acetaminophen 5-325] 1 each PO Q6H PRN PRN #14 tablet 02/01/20 The following prescriptions were given: Oxycodone HCl/Acetaminophen [Oxycodone-Acetaminophen 5-325] 1 each PO Q6H PRN PRN #14 tablet PRN Reason: Pain Score 4-10/10 Transmission Status: Sent to [facility] Primary Care Physician: Care Physician,No Primary [Primary Care Provider] - Test Results: Test results from this visit will be discussed in further detail at your follow- up appointment, if applicable. Please Follow Up With: Brenden Peacock PA When: 1 week
[2020-02-01 15:02] VITALS: BP 101/71; BP 115/78; PULSE 102; RESP 16; TEMP 36.5; O2SAT 93
--- NOTE | 2020-02-01 15:06 | HP.PCM_ITS ---
History and Physical I have re-examined the patient. There are no clinical changes since date of exam. Intake Intake Visit Reasons: Right Hand Allergies aspirin Allergy (Verified 10/04/19 13:24) Rash codeine Allergy (Verified 10/04/19 13:24) Rash morphine Allergy (Verified 10/04/19 13:24) Rash Penicillins Allergy (Verified 10/04/19 13:24) Rash diphenhydramine HCl [From Benadryl] Adverse Reaction (Verified 10/04/19 13:24) Other promethazine HCl [From Phenergan] Adverse Reaction (Verified 10/04/19 13:24) Other SEAFOOD Allergy (Uncoded 05/03/19 17:48) Rash PFSH Medical History (Updated 09/13/19 @ 13:43 by Gregoria Ewing) History of epilepsy (Chronic) Social History (Updated 11/11/19 @ 09:[address] Irene Randolph, ) Smoking Status: Never smoker HPI HPI Details: Patient was informed that this visit will be billed to patient. This visit was conducted during COVID-19 pandemic. SRI CHACON, is a 44 F who presents to the office today for continued right thumb and wrist pain. She had a dequervains inj on 10/21/2019. She had relief for about 18hrs. She is using heat and ice as well as otc nsaids with no relief. She stopped wearing the thumb spica splint due to no relief. She does have some tingling but her biggest complaint is pain in the thumb and wrist with radiating pain into the elbow. She states her pain is constant and she has swelling in the thumb and wrist that can come and go but is more constant lately. 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 Assessment & Plan Problems 1. CMC arthritis M19.049 2. De Quervain's disease (radial styloid tenosynovitis) M65.4 Plan do exercises as you can still working at [employer] put on surgical list will call when elective cases back on wear splint as needed [facility] meloxicam All questions answered. Patient in agreement of plan.Follow up when elective cases back on- or sooner if pain, swelling, numbness or associated symptoms, or concerns develop. Coding Level of Care Code 5-10 minutes Diagnoses CMC arthritis M19.049 De Quervain's disease (radial styloid tenosynovitis) M65.4 Procedure Criteria Procedure Type: Elective COVID Risk Discussion: The surgeon/proceduralist and patient have discussed in detail the risk of exposure to and/or potential harm posed by the COVID-19 virus with having a surgery/procedure at this time versus the risk of delaying the surgery/procedure. It is not possible to know either the risk of delaying the surgery or procedure or chance of getting an infection with perfect accuracy, but a joint decision was made between the patient and the surgeon/proceduralist to proceed at this time with the scheduled surgery/procedure as indicated on the consent form.
[2020-02-01 15:15] VITALS: BP 101/71; BP 109/71; PULSE 96; RESP 17; O2SAT 96
[2020-02-01 15:26] VITALS: BP 101/71; BP 112/74; PULSE 85; RESP 16; TEMP 36.7; O2SAT 97
--- NOTE | 2020-02-01 15:36 | OP.PCM_ITS ---
Report of Operation Date of Procedure: 02/01/20 Pre-Operative Diagnosis: right dequervains tenosynovitis Post-Operative Diagnosis: same Surgery/Procedure Performed:: right first extensor marley release/wrist Type of Anesthesia:: General Anesthesiologist: Khurram Ho Estimated Blood Loss (mL): min Fluids Replaced: 500cc Description of Procedure: Preop note Patient is a 44-year-old female with continued right wrist pain recalcitrant to conservative treatment consistent with de Quervain's tenosynovitis. Risk benefits and alternatives were discussed with patient. Risk include but not limited to blood loss, blood clot, infection, neurovascular, failure procedure, loss of life and loss of limb. Patient is aware would like to proceed with right de Quervain's release first compartment. Operative note Patient seen and examined preoperative holding area. Right wrist was marked. Patient brought to the operating room placed supine on the operating table. Signed, anesthesia, antibiotics administered. The right arm was prepped and draped usual sterile technique with a tourniquet around her upper arm. All bony prominences well-padded SCDs placed on bilateral lower extremity. We then marked out our radial styloid her transverse incision over the extensor tendon the first marley. The right arm is an elevated single knee and triggers rates her pressure of 250 torr. We then timeout was performed. Then created a incision with about a centimeter with a 15 blade dissect down tenotomies protecting all nerve at structures down to the extensor marley over the first compartment at the wrist. This was released in its entirety and then the wrist extensor the thumb extensors extremely were brought out of the incision flexion- extension there is no catching. When irrigated the incision with copious amounts of sterile saline. The incision was closed with 4-0 nylon. Sterile dressings were applied. Patient tolerated procedure well no complication transferred recovery room in stable condition. Tourniquet was deflated for total working time of 10 minutes. Postoperative note Patient to keep the right wrist clean and dry Follow-up in 2 weeks Call with increased pain numbness tingling or other issues arise Pharmacy has prescriptions Dragon disclaimer This note was generated with [employer] dictation software. It may contain incorrect words, spelling, and punctuation that were not noted in checking the note before signing.
[2020-02-01 15:45] VITALS: BP 101/71
== END 2020-02-01 15:54 | disposition home or self-care (01) ==
LOC: SDC 11:48 → AC 11:50
PROVIDERS: Anesthesiology; Referring Provider Orthopaedic Surgery; Visit Provider Orthopaedic Surgery
PROC: (CPT 26055; principal; 2020-02-01 13:20)
DX: M65.4 Radial styloid tenosynovitis [de Quervain] (principal); M19.049 Primary osteoarthritis, unspecified hand; G40.909 Epilepsy, unspecified, not intractable, without status epilepticus; Z11.59 Encounter for screening for other viral diseases; Z79.899 Other long term (current) drug therapy
CPT/HCPCS: 01810; 25000; 87635; G2023; J7120; A4216; J2405; U0003

== ENCOUNTER 2020-03-16 09:00 | Outpatient (RCR) | payer MEDICAID, SELFPAY ==
[2020-02-14 08:20] VITALS: BMI 32.3
--- NOTE | 2020-02-28 12:01 | HP.OTEVAL ---
Patient's Visit Information SRI CHACON is a 44 year old F, referred to Occupational Therapy by Dr. Irene Randolph DO, with a diagnosis of Dequervains tenosynovitis release. Date of Evaluation: 02/28/20 Occupational Therapist: Janeth Jason, NEGRITO/Demetri, CHT - Subjective This 44 year old female was seen for OT eval with dx of dequervains tenosynovitis s/p release. pt struggled with pain and failed conservative tx. pt decided to have sx and arrives with wrap on right wrist. pt is worried about returning to her job as she works long hours. pt states some pain with movement but she continues to work through the discomfort. - Pain right wrist 3 Pain Intensity Range: 8 - ROM Wrist: right 50/30 left 75/70 - Strength Project Management Consultant: right 5# left 45# Lateral Pinch: right 6# left 10# Tripod Pinch: right 4# left 12# Tip-to-Tip Pinch: right 4# left 6# - Sensation Thumb: right 4.56 left 2.83 Index: right 4.56 left 2.83 Middle: right 3.84 left 2.83 Ring: right 2.83 left 2.83 Little: right 2.83 left 2.83 - Quick DASH-Disab of Arm,Shoulder& Hand Quick DASH Score: 71.6650 - Goals Goal:: Pt alexei demo a increase in right winding operator strength by 30# to increase pts ind. with ADls and IADls by d/c Goal:: pt will demo a increase in right wrist ROM equal to left by d/c to increase pts ind. with ADls and IADls by d/c Goal:: pt will report no pain greater than 1/10 with use of right UE with ADLs and IADls by d/c Goal:: pt will demo a understanding of scar mtg by end of 2nd session to decrease risk of scar adhesions. - Rehabilitation General Assessment: pt s/p 3 weeks 6 days from right first extensor release on 02/01/20. pt demo with limited right wrist ROM and weakness causing increase need of assistance with IADLs. Pt would benefit from skilled OT services 2x week for 6 weeks to return pt to IND level with ADls and IADls. Today therapist ed. pt on scar mtg, ROM and visual compensatory irvin. 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 pt demo undersanding and agree to POC. Rehabilitation Potential: Good - Anticipated Interventions A/AAROM/PROM, Strengthening, Scar Care, Desensitization, Sensory Retraining, Modalities, Fine Motor Coord/Isiah - Visit Plan Frequency: 2x /Week Duration: 6 Weeks TEXT: Thank you for the opportunity to evaluate your patient. For Medicare and Medicare HMO plans, please review the plan of care and approve it. It will need to be FAXED BACK to us at [phone] for Medicare purposes. Please let me know if there are questions or concerns regarding this plan of care. Physician Signature: Date:
--- NOTE | 2020-07-10 13:02 | HP.OT.NRP ---
SRI CHACON was seen in my office for initial evaluation on 02/28/20. The following Plan of Care was established for this patient: Initial Frequency: 2x /Week Initial Duration: 6 Weeks Plan: cont Lat Epic stretchses, eccentric Anticipated Interventions: A/AAROM/PROM, Strengthening, Scar Care, Desensitization, Sensory Retraining, Modalities, Fine Motor Coord/Isiah This patient was last seen in our office 03/16/20. Pertinent comments regarding their Occupational therapy will appear below: pt was seen for 5 OT sessions- last two scheduled visits NO SHOW- pt was making little progress and rec'd return to for further eval. unsure if pt followed with pt d/c from OT due to time lapse in services. At this point I will be discontinuing this patient from occupational therapy. I would be happy to see this patient again in the future if found appropriate by the physician. Thank you! Janeth Jason, OTR/L, CHT
== END 2020-03-16 19:00 | disposition home or self-care (01) ==
LOC: OT 09:00
PROVIDERS: Referring Provider Orthopaedic Surgery; Visit Provider Orthopaedic Surgery
DX: Z98.890 Other specified postprocedural states (principal)
CPT/HCPCS: 97035; 97110; 97140; 97166; 97530

== ENCOUNTER → 2020-04-30 | Outpatient (CLI) | payer MEDICAID, SELFPAY ==
[2020-04-30 13:40] VITALS: BMI 32.3
[2020-04-30 16:56] LABS: AST(SGOT) 17 U/L (15-37); Alanine Aminotransfer ALT/SGPT 18 U/L (13-56); Albumin, Serum 3.7 g/dL (3.2-5.0); Alkaline Phosphatase 73 U/L (45-117); Anion Gap 3 (5-15); BUN 17 mg/dL (7-18); CRP 3.14 mg/L (0.0-3.0); Calcium,Total 8.7 mg/dL (8.5-10.1); Chloride 109 mmol/L (98-107); Creatinine, Serum 0.89 mg/dL (0.55-1.02); EST Glomerular Filtration Rate 72 mL/min (>60); Est Glom Filt Rate - Afr Amer 87 mL/min (>60); Globulin 3.6 g/dL (2.2-4.2); Glucose 88 mg/dL (74-106); Potassium 3.8 mmol/L (3.5-5.1); Protein, Total 7.3 g/dL (6.4-8.2); Rheumatoid Factor < 10.0 IU/mL (<15); Sodium Level 140 mmol/L (136-145)
[2020-04-30 17:05] LABS: Absolute Neutrophil Count 4.8 X10^3/uL (2.0-7.7); Basophil# 0.02 X10^3/uL; Basophil% 0.3 % (0-1); Eosinophil# 0.47 X10^3/uL; Eosinophils% 6.4 % (0-5); Hematocrit 42.5 % (37-47); Hemoglobin 13.9 g/dL (12.0-15.0); Lymphocyte % 20.4 % (19-41); Mean Corp Hgb Conc 32.7 g/dL (32-36); Mean Corpuscular Volume 91.6 fL (81-99); Mean Platelet Vol. 9.5 fl (6.2-12.0); Monocyte# 0.59 X10^3/uL; NRBC Flagged by Analyzer 0 % (0-5); Neutrophil # 4.75 X10^3/uL (2.7-7.7); Neutrophil % 64.6 % (47-70); Platelet Count 283 K/mm3 (150-450); RBC Distribution Width CV 12.5 % (11.6-14.6); RBC Distribution Width SD 41.3 fl (35.1-43.9); Red Blood Count 4.64 M/mm3 (4.2-5.4); White Blood Count 7.4 K/mm3 (4.4-11.0)
[2020-04-30 17:27] LABS: Erythrocyte Sedimentation Rate 14 mm/hr (0-20)
[2020-05-03 06:50] LABS: CCP IgG Antibodies 4 units (0-19)
[2020-05-03 10:31] LABS: ANTINUCLEAR ANTIBODIES DIRECT Negative (Negative)
== END | disposition home or self-care (01) ==
LOC: LAB 15:28
PROVIDERS: Referring Provider Physician Assistant; Visit Provider Physician Assistant
DX: M25.50 Pain in unspecified joint (principal)
CPT/HCPCS: 36415; 80053; 85025; 85652; 86038; 86140; 86200; 86431

== ENCOUNTER → 2020-06-13 07:27 | Outpatient (CLI) | payer MEDICAID, SELFPAY ==
[2020-03-12 09:20] VITALS: BMI 32.3
[2020-04-30 13:40] VITALS: BMI 32.3
--- NOTE | 2020-06-13 14:16 | NEURO ---
NCS and/or EMG Patient Report Ordering Doctor: Brenden Peacock DATE OF SERVICE: 06/13/20 Dominique Perkins is a 45-year-old female presents for electrodiagnostic testing of the right upper limb. She reports numbness and tingling in the right hand with pain radiating up to the shoulder and elbow. Electrodiagnostic findings: Right median motor nerve demonstrates normal distal latency with normal amplitude and borderline reduced conduction velocity. Normal right ulnar motor responses noted. Sensory responses are within normal limits. Normal median ulnar F waves. Needle EMG, all muscles tested in the right upper limb, as well as the right cervical paraspinals, showed no evidence of denervation with normal motor unit action potentials. Electrodiagnostic impression: This is a normal electrodiagnostic study in the right upper limb. There is no electrodiagnostic evidence for peripheral neuropathy, including carpal tunnel syndrome. There is no electrodiagnostic evidence for cervical radiculopathy. If there are any further questions, please do not hesitate to contact me.
== END ==
PROVIDERS: Referring Provider Physician Assistant; Visit Provider Physician Assistant
DX: R20.2 Paresthesia of skin (principal)
CPT/HCPCS: 95886; 95910

== ENCOUNTER 2020-08-08 17:30 | Outpatient (RCR) | payer MEDICAID, SELFPAY ==
[2020-04-30 13:40] VITALS: BMI 32.3
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
== END 2020-08-08 19:00 | disposition home or self-care (01) ==
LOC: PT 17:30
PROVIDERS: Referring Provider Orthopaedic Surgery; Visit Provider Orthopaedic Surgery
DX: M50.30 Other cervical disc degeneration, unspecified cervical region (principal); R20.2 Paresthesia of skin
CPT/HCPCS: 97012; 97035; 97110; 97112; 97140; 97162; 97164

== ENCOUNTER 2020-09-28 09:17 | Emergency (ER) | payer MEDICAID, SELFPAY ==
[2020-04-30 13:40] VITALS: BMI 32.3
[2020-09-28 09:18] VITALS: BP 133/83; PULSE 74; RESP 16; TEMP 36.1; O2SAT 98; BMI 24.1
--- NOTE | 2020-09-28 09:29 | ED.DCSUM_ITS ---
History of Present Illness Chief Complaint: Headache Informant: Patient Onset: Days Context: Gradual Timing: Continuous Quality: Similar Prior Headaches, Throbbing Location: Global Current Severity: Moderate Maximum Severity: Severe Worsened by: Sound and light Relieved by: Nothing Associated Symptoms: Nausea, Vomiting, Blurred Vision, Photophobia. Negative for: Fever, Sore Throat, Sinus Pressure, Numbness, Tingling, Preceding Aura, Visual Changes, Visual Loss Injury: - - No history of trauma Narrative: Patient is a 45-year-old woman who has had chronic migraine since age of 15. She is seen by a specialist at [facility]. This headache is no different. She states it is not the worst she has had. The headache is global throbbing associated with sonophobia, photophobia and nausea. Patient denies rhinorrhea, congestion or postnasal drainage. She denies sore throat. She denies neck stiffness. She denies trouble with speech or swallowing. She denies loss of taste or smell. She denies vomiting or diarrhea. She denies dysuria, frequency, urgency or hematuria. She denies paresthesia, anesthesia medics. She denies problems with clumsiness or unsteadiness. Prior similar symptoms: Yes Recent Illness/Hospitalization: No - Past Medical History (1) Chronic migraine Status: Chronic (2) History of concussion Status: Acute Past Medical History - Allergies and Home Meds Allergies/Adverse Reactions: Allergies aspirin Allergy (Verified 09/28/20 09:18) Rash codeine Allergy (Verified 09/28/20 09:18) Rash morphine Allergy (Verified 09/28/20 09:18) Rash Penicillins Allergy (Verified 09/28/20 09:18) Rash diphenhydramine HCl [From Benadryl] Adverse Reaction (Verified 09/28/20 09:18) Other promethazine HCl [From Phenergan] Adverse Reaction (Verified 09/28/20 09:18) Other SEAFOOD Allergy (Uncoded 09/28/20 09:18) Rash Primary Care Physician: Care Physician,No Primary [Primary Care Provider] - Prior records reviewed: Yes Surgical History: noncontributory Lives: With Family Smoking Status: Never smoker Alcohol: None Drugs: None Review of Systems General: Denies: Chills, Fever, Malaise, Subjective Eyes: Reports: - - Photophobia. Denies: Visual changes - bilaterally, Blurred Vision - bilaterally ENT: Reports: - - Sonophobia. Denies: Bilateral ear pain, Rhinorrhea, Sore throat Cardiovascular: Denies: Chest pain, Palpitations Respiratory: Denies: Dyspnea, Cough, Dyspnea on exertion Gastrointestinal: Reports: Nausea. Denies: Abdominal pain, Vomiting, Diarrhea Genitourinary: Denies: Dysuria, Hematuria, Frequency Musculoskeletal: Denies: Myalgias, Arthralgias, Neck pain, Back pain Skin: Denies: Rash, Wounds Neurological: Reports: Headache. Denies: Weakness, Parasthesia Endocrine: Denies: Polyuria, Polydipsia Hematologic: Denies: Easy bruising, Easy bleeding Physical Exam Vital Signs/Narrative: Vital Signs Temp Pulse Resp BP Pulse Ox 09/28/20 09:18 96.9 F L 74 16 133/83 H 98 Inital Vital Signs reviewed: Yes General: Well nourished, Well developed. Negative for: Obese, Cachectic, Contractures Head: NC, AT. Negative for: Trauma, Tenderness, Temporary Artery Tenderness, Vesicular Rash, Sinus Tenderness Eyes: Perrl, EOMI. Negative for: Pale conjunctiva, Scleral icterus ENT: Moist mucous membranes, No rhinorrhea, TM's clear. Negative for: Dry mucous membranes, Nasal congestion Neck: Supple, No Lymphadenopathy, No JVD, Nontender, No Meningismus Cardiovascular: Regular rate, Regular rhythm, No murmurs, Normal S1, Normal S2 Respiratory: No distress, CTA bilaterally, Chest nontender Abdomen: Soft, Nontender, Nondistended, Normal bowel sounds Back: Nontender, Normal Inspection Extremities: Nontender, No edema Skin: Normal color, No rash Neuro: Alert, Oriented x3, Cranial nerves II-XII grossly intact, Normal Strength, Normal Sensation Psychological: Normal affect Diagnostic/Tx/Re-eval - Medical Decision Making Patient was treated with IV Toradol, Reglan and Cogentin. She lists Phenergan as an allergy. She has taken NSAIDs in the past. Her allergy to aspirin is not anaphylactic or significant. Patient was assessed at 1025. She is sitting up smiling. She reports her headache is resolved. She was asked if she feels comfortable going home. She states she would like to go home. ED Disposition - Plan for ED Patient: Disposition: Home or Assisted Living Diagnosis: Headache, migraine, intractable, with status migrainosus Instructions: ED, Migraine (Classical) Referrals: Care Physician,No Primary [Primary Care Provider] - As Needed
[2020-09-28] MEDS: Ketorolac 15 MG/ML Vial IV (09:44)
[2020-09-28] MEDS: Metoclopramide 10 MG/2 ML Vial IV (09:45)
[2020-09-28 10:43] VITALS: BP 115/61; PULSE 75; RESP 18; O2SAT 100
== END 2020-09-28 10:44 | disposition home or self-care (01) ==
PROVIDERS: Emergency Provider Emergency Medicine
DX: G43.911 Migraine, unspecified, intractable, with status migrainosus (principal); E66.9 Obesity, unspecified
CPT/HCPCS: 96374; 96375; 99283; A4216

== ENCOUNTER 2020-12-16 14:58 | Emergency (ER) | payer MEDICAID, SELFPAY ==
[2020-12-16 14:59] VITALS: BP 100/72; PULSE 89; RESP 15; TEMP 36.4; O2SAT 99; BMI 28.7
--- NOTE | 2020-12-16 15:10 | RAD_ITS ---
STUDY: X-RAY - LEFT HAND REASON FOR EXAM: Female, 45 years old. Fall with hand injury, pain TECHNIQUE: 3 view(s) of the hand. COMPARISON: None. FINDINGS: Please see the impression. RAD/Hand Min 3 Views IMPRESSION: No acute fracture or dislocation in the left hand. No osseous erosion. No radiopaque foreign body. Electronically Signed: Paco Hall MD at 15:39 EDT Tel , Service support ,
[2020-12-16] MEDS: Acetaminophen 500 MG Tablet 1000 MG PO (15:18)
--- NOTE | 2020-12-16 15:40 | EDS_ITS ---
HPI History of Present Illness Chief Complaint: Upper Extremity Injury Informant: patient Narrative Narrative: 45-year-old female presents with concern for left hand pain. States that she fell and her hand was in a closed fist and struck the ground. States that she heard a cracking noise and is concerned that she broke her hand. States that she has pain with movement which she describes as sharp in nature. Denies any numbness or tingling. Denies any head injury or loss of consciousness PFSH PFS Medical History History of epilepsy Migraines Home Medications lamotrigine 600 mg PO TID 06/06/13 [History Last Taken 02/01/20 09:00] escitalopram oxalate 10 mg PO DAILY 09/28/20 [History Last Taken Unknown] rimegepant [Nurtec ODT] 75 mg PO Q48H 12/16/20 [History Last Taken Unknown] Allergy/AdvReac Type Severity Reaction Status Date / Time aspirin Allergy Rash Verified 12/16/20 14:59 codeine Allergy Rash Verified 12/16/20 14:59 morphine Allergy Rash Verified 12/16/20 14:59 Penicillins Allergy Rash Verified 12/16/20 14:59 diphenhydramine HCl AdvReac Other Verified 12/16/20 14:59 [From Benadryl] promethazine HCl AdvReac Other Verified 12/16/20 14:59 [From Phenergan] SEAFOOD Allergy Rash Uncoded 12/16/20 14:59 no significant family history no surgical history Social History Smoking Status: Never smoker ROS ROS ED Constitutional Constitutional ED: Denies chills, fever(s) or sweats Eyes Eyes: Denies blurry vision, change in vision or diplopia ENT ENT ED: Denies rhinorrhea or sore throat Cardiovascular Cardiovascular: Denies chest pain, orthopnea, palpitations or racing heartbeat Respiratory/Chest Respiratory/Chest: Denies cough, dyspnea, dyspnea on exertion, orthopnea or sputum Gastrointestinal Gastrointestinal: Denies abdominal pain, constipation, diarrhea, melena, nausea or vomiting Genitourinary Genitourinary ED: Denies dysuria, hematuria or urinary frequency Musculoskeletal Musculoskeletal: Reports other Details: left hand pain ; Denies arthralgias, myalgias or neck pain Integumentary Denies rash Neurologic Neurologic: Denies headache(s), paresthesias or weakness Psychiatric Psychiatric: Denies anxiety or depression Hematologic/Lymphatic Hematologic/Lymphatic: Denies easy bleeding or easy bruising Allergic/Immunologic Allergic/Immunologic ED: Denies mouth swelling or tongue swelling EXAM Physical Exam Const Vital Signs: 12/16/20 14:59 Temperature 97.6 F L Temperature Source Temporal Pulse Rate 89 Respiratory Rate 15 Blood Pressure 100/72 Blood Pressure Mean 81 Pulse Ox 99 Oxygen Delivery Method Room Air Positive well nourished and well developed General Appearance ED: well developed HEENT Reports TM's clear and moist mucous membranes normocephalic and atraumatic Tympanic Membrane ED: Yes TM's clear Eyes PERRL and EOMs intact bilaterally Neck no lymphadenopathy, supple and no JVD Chest Wall inspection of chest normal Resp normal respiratory effort and clear to auscultation bilaterally Cardio regular rate, S1 normal heart sound, S2 normal heart sound and no murmurs Peripheral Pulses: pulses 2+ throughout GI soft to palpation, non-tender and non-distended Back/Spine no CVA tenderness and no thoracic nor lumbar tenderness Extremity Extremity Narrative: TTP of the left fourth and fifth metacarpals without obvious deformity or overlying skin changes. General Extremety ED: Negative for edema or tenderness General Extremity: Negative for edema Neuro oriented x3, CN's II-XII intact bilaterally and no sensory deficits noted Sensorium / Orientation: alert Motor Exam: strength 5/5 throughout Psych mental status grossly normal Skin no rashes or lesions noted MDM MDM MDM Narrative Medical decision making narrative: Patient appears well nontoxic. Vital signs within normal limits. X-ray interpreted by myself shows no evidence of acute fracture dislocation. Radiology concurs. Patient be placed in an Rachid wrap. Advised on rest, ice, compression, elevation. Advised on Tylenol at home. Aske d to return for new or worsening symptoms. Patient agreeable and discharged home in stable condition. Discharge Plan Triage Chief Complaint: Upper Extremity Injury ED Provider: Mandeep Rios Dx/Rx/DC Orders Clinical Impression: Contusion of hand, left Instructions: ED Hand Contusion Prescriptions: No Action lamotrigine 200 MG tablet 600 mg PO TID RF: 0 escitalopram oxalate 10 MG tablet 10 mg PO DAILY RF: 0 Nurtec ODT 75 mg Tablet,Disintegrating 75 mg PO Q48H RF: 0 Primary Care Provider: Care Physician,No Primary Referrals: Joanne Dyson MD [STAFF PHYSICIAN] - 3-5 Days Care Physician,No Primary [Primary Care Provider] - Disposition Disposition: Home, self care
[2020-12-16 16:26] VITALS: BP 100/72; PULSE 89; RESP 18
== END 2020-12-16 16:28 | disposition home or self-care (01) ==
PROVIDERS: Emergency Provider Emergency Medicine
DX: S60.222A Contusion of left hand, initial encounter (principal); W18.30XA Fall on same level, unspecified, initial encounter; Y93.89 Activity, other specified; Y92.89 Other specified places as the place of occurrence of the external cause; Y99.8 Other external cause status
CPT/HCPCS: 73130; 99283

== ENCOUNTER 2021-01-24 12:59 | Emergency (ER) | payer MEDICAID, SELFPAY ==
[2021-01-24 13:02] VITALS: BP 109/75; PULSE 73; RESP 18; TEMP 36.3; O2SAT 98; BMI 32.5
--- NOTE | 2021-01-24 13:08 | EKG12_ITS ---
Test Reason : CP Blood Pressure : / mmHG Vent. Rate : 065 BPM Atrial Rate : 065 BPM P-R Int : 180 ms QRS Dur : 086 ms QT Int : 378 ms P-R-T Axes : 052 -19 038 degrees QTc Int : 393 ms Normal sinus rhythm Inferior infarct , age undetermined Possible Anterior infarct , age undetermined Abnormal ECG Confirmed by GLENN GOLDSMITH, ANGE ([id number]), book or script editor ANGELINE FRAZIER ([id number]) on 01/28/2021 10:57:29 A M Referred By: GLORIA Confirmed By:ASHWINI ELIZABETH MD
--- NOTE | 2021-01-24 13:09 | EDS_ITS ---
HPI History of Present Illness Chief Complaint: Chest Pain Informant: patient Onset/Context/Timing Onset: Today Activity at onset: sudden Timing: Intermittent Quality: Positive for Sharp and Stabbing Location: Left Parasternal Current Severity: Moderate Maximum Severity: Moderate Worsened By: Nothing Relieved By: Nothing Associated Symptoms: Negative for Nausea, Vomiting, Diaphoresis and Dyspnea Narrative Narrative: Patient is a 45-year-old female with medical history significant for migraine and epilepsy presents to the emergency department chest pain. Patient states that she had at this morning when she woke up. She describes an intermittent, sharp, stabbing pain in her left chest. She states it comes in waves and will last a few seconds. She is never had pain like this before. She states that she also feels like at times her heart is racing. She denies nausea or vomiting. She denies fevers or chills. She denies cough. She has no history of coronary vascular disease. [facility] Medical History History of epilepsy Migraines Home Medications lamotrigine 600 mg PO TID 06/06/13 [History Last Taken 02/01/20 09:00] escitalopram oxalate 10 mg PO DAILY 09/28/20 [History Last Taken Unknown] rimegepant [Nurtec ODT] 75 mg PO Q48H 12/16/20 [History Last Taken Unknown] naproxen 500 mg PO BID #14 tab 01/24/21 [Rx Last Taken Unknown] Allergy/AdvReac Type Severity Reaction Status Date / Time aspirin Allergy Rash Verified 01/24/21 13:02 codeine Allergy Rash Verified 01/24/21 13:02 morphine Allergy Rash Verified 01/24/21 13:02 Penicillins Allergy Rash Verified 01/24/21 13:02 diphenhydramine HCl AdvReac Other Verified 01/24/21 13:02 [From Benadryl] promethazine HCl AdvReac Other Verified 01/24/21 13:02 [From Phenergan] SEAFOOD Allergy Rash Uncoded 01/24/21 13:02 Social History Smoking Status: Never smoker ROS ROS ED Constitutional Constitutional ED: Denies chills or fever(s) Eyes Eyes: Denies blurry vision or change in vision ENT ENT ED: Denies ear pain or sore throat Cardiovascular Cardiovascular: Reports chest pain; Denies palpitations Respiratory/Chest Respiratory/Chest: Denies cough, dyspnea or dyspnea on exertion Gastrointestinal Gastrointestinal: Denies abdominal pain, nausea or vomiting Genitourinary Genitourinary ED: Denies dysuria or urinary frequency Musculoskeletal Musculoskeletal: Denies arthralgias or myalgias Integumentary Denies rash Neurologic Neurologic: Denies headache(s) or paresthesias Psychiatric Psychiatric: Denies anxiety or depression Endocrine Endocrinology: Denies polydipsia or polyuria Allergic/Immunologic Allergic/Immunologic ED: Denies urticaria EXAM Physical Exam Const Vital Signs: 01/24/21 13:02 01/24/21 13:45 01/24/21 13:46 Temperature 97.3 F L Temperature Source Temporal Pulse Rate 73 Respiratory Rate 18 Respiratory Effort Normal Non-Labored Blood Pressure 109/75 Blood Pressure Mean 86 Pulse Ox 98 100 Oxygen Delivery Method Room Air Room Air Positive well nourished and well developed General Appearance ED: well developed HEENT Reports normocephalic, head/scalp atraumatic and moist mucous membranes Eyes PERRL and EOMs intact bilaterally Neck no lymphadenopathy and supple General: Negative for tenderness Chest Wall inspection of chest normal Resp normal respiratory effort and clear to auscultation bilaterally Cardio regular rate, regular rhythm and no murmurs GI normal to inspection, nondistended, normoactive bowel sounds Palpation: Negative for tender, guarding or rebound tenderness present Back/Spine no CVA tenderness Cervical Spine: Negative for cervical spine tenderness Thoracic Spine / Upper Back: Negative for thoracic spinal tenderness Extremity normal to inspection General Extremety ED: Negative for tenderness Neuro oriented x3 and CN's II-XII intact bilaterally Neuro Narrative: No focal deficits appreciated. Sensorium / Orientation: alert Psych mental status grossly normal Skin no rashes or lesions noted, no wounds and skin turgor normal Heart Score History: Slightly/Non-Suspicious ECG: Normal Age: </= 45 years Risk Factors: No Risk Factors Troponin: </= Normal Limit Score: 0 MDM MDM MDM Narrative Medical decision making narrative: Patient presents with intermittent sharp, stabbing pain in her chest. She is not tachycardic, tachypneic, or hypoxic. EKG was obtained on arrival. There is no evidence of acute ischemia. It was unchanged from prior. Chest x-ray shows no evidence of volume overload, pneumothorax, or other dangerous process. Labs including D-dimer were negative. Cardiac enzymes are normal. The patient has a heart score of 0. I do feel that her pain is muscular in nature. I do not suspect a dangerous cause of her symptoms. I will treat her with anti-inflammatories. The patient will be discharged home. Impression Atypical chest pain Lab Data Attestation: I reviewed the patient's lab results. Labs: Laboratory Results - last 24 hr 01/24/21 01/24/21 01/24/21 13:43 13:43 13:43 WBC 6.0 RBC 4.59 Hgb 13.4 Hct 41.0 MCV 89.3 MCH 29.2 MCHC 32.7 RDW Std Deviation 41.1 RDW Coeff of Kg 12.5 Plt Count 241 MPV 9.2 Immature Gran % (Auto) 0.300 Neut % (Auto) 56.9 Lymph % (Auto) 25.5 [place] % (Auto) 10.0 Eos % (Auto) 7.0 H Baso % (Auto) 0.3 Absolute Neuts (auto) 3.4 Absolute Lymphs (auto) 1.53 Nucleated RBC % 0 D-Dimer Quant (PE/DVT) 0.47 Sodium 139 Potassium 3.9 Chloride 107 Carbon Dioxide 26.0 Anion Gap 6 BUN 13 Creatinine 0.77 Estim Creat Clear Calc 68.89 Est GFR (MDRD) Af Amer 103 Est GFR (MDRD) Non-Af 85 BUN/Creatinine Ratio 16.8 Glucose 75 Calcium 8.9 Magnesium 2.3 Troponin I < 0.015 Radiography Chest X-Ray - ED: 1 View, Read by ED Physician, Normal, Heart, Lungs, Mediastinum and Bony Structures Diagnostic Testing: Radiology Impression Chest X-Ray 01/24/21 13:15 IMPRESSION: No acute abnormality is present. Electronically Signed: Go Armas MD at 13:36 EDT , Service support , EKG Initial EKG: Attestation: I personally reviewed and interpreted this EKG as follows: Interpretation: Sinus Rhythm and No Acute Injury Pattern Prior EKG tracings: available for review Prior: Unchanged Discharge Plan Triage Chief Complaint: Chest Pain ED Provider: Skyler Tobias Dx/Rx/DC Orders Instructions: ED Chest Pain, Noncardiac Prescriptions: New naproxen 500 MG tablet 500 mg PO BID Qty: 14 RF: 0 No Action lamotrigine 200 MG tablet 600 mg PO TID RF: 0 escitalopram oxalate 10 MG tablet 10 mg PO DAILY RF: 0 Nurtec ODT 75 mg Tablet,Disintegrating 75 mg PO Q48H RF: 0 Primary Care Provider: Care Physician,No Primary Referrals: Care Physician,No Primary [Primary Care Provider] -
--- NOTE | 2021-01-24 13:15 | RAD_ITS ---
STUDY: X-RAY CHEST REASON FOR EXAM: Female, 45 years old. Chest pain TECHNIQUE: Single AP portable view of the chest. COMPARISON: Comparison is made with prior examination dated 04/11/2019. FINDINGS: EKG electrodes are seen. The lungs are clear and expanded. There is no demonstrated pleural abnormality. Normal size heart. Normal mediastinum and padmini. Normal visualized pulmonary arteries. There is atherosclerotic tortuosity of the aortic arch and descending thoracic aorta. Normal visualized thoracic spine. Normal visualized ribs, clavicles, and shoulders. There is no demonstrated abnormality of the visualized soft tissue structures of the upper abdomen. RAD/Chest 1 View (Portable) IMPRESSION: No acute abnormality is present. Electronically Signed: Go Armas MD at 13:36 EDT , Service support ,
[2021-01-24 13:45] VITALS: O2SAT 100
[2021-01-24] MEDS: 0.9% Normal Saline 1,000 ML 150 ML IV (13:48)
[2021-01-24 13:50] LABS: Absolute Lymphocyte Count 1.53 X10^3/uL (0.83-4.51); Absolute Neutrophil Count 3.4 X10^3/uL (2.0-7.7); Basophil# 0.02 X10^3/uL; Basophil% 0.3 % (0-1); Eosinophil# 0.42 X10^3/uL; Hemoglobin 13.4 g/dL (12.0-15.0); Lymphocyte # 1.53 X10^3/ul (0.83-4.51); Lymphocyte % 25.5 % (19-41); Mean Corp Hgb Conc 32.7 g/dL (32-36); Mean Corpuscular Hgb 29.2 pg (27.0-32.0); Mean Corpuscular Volume 89.3 fL (81-99); Mean Platelet Vol. 9.2 fl (6.2-12.0); NRBC Flagged by Analyzer 0 % (0-5); Neutrophil % 56.9 % (47-70); Platelet Count 241 K/mm3 (150-450); RBC Distribution Width CV 12.5 % (11.6-14.6); RBC Distribution Width SD 41.1 fl (35.1-43.9); Red Blood Count 4.59 M/mm3 (4.2-5.4)
[2021-01-24 14:01] LABS: D-Dimer Quantitative (DVT/PE) 0.47 FEU/ug/m (0.27-0.49)
[2021-01-24 14:07] LABS: Anion Gap 6 (5-15); BUN 13 mg/dL (7-18); BUN/Creat Ratio 16.8 RATIO (10-20); Calcium,Total 8.9 mg/dL (8.5-10.1); Chloride 107 mmol/L (98-107); Creatinine, Serum 0.77 mg/dL (0.55-1.02); EST Glomerular Filtration Rate 85 mL/min (>60); Est Glom Filt Rate - Afr Amer 103 mL/min (>60); Estimated Creatinine Clearance 68.89 ml/min; Glucose 75 mg/dL (74-106); Magnesium 2.3 mg/dL (1.6-2.6); Potassium 3.9 mmol/L (3.5-5.1); Sodium Level 139 mmol/L (136-145)
[2021-01-24 14:52] VITALS: BP 105/78; PULSE 79; RESP 16; O2SAT 99
== END 2021-01-24 14:52 | disposition home or self-care (01) ==
LOC: ED 13:15
PROVIDERS: Emergency Provider Emergency Medicine
DX: R07.89 Other chest pain (principal); G43.909 Migraine, unspecified, not intractable, without status migrainosus; Z79.899 Other long term (current) drug therapy
CPT/HCPCS: 71045; 80048; 83735; 84484; 85025; 85379; 93005; 96360; 99284; J7030; A4216

== ENCOUNTER 2021-03-14 02:14 | Emergency (ER) | payer MEDICAID, SELFPAY ==
[2021-03-14 02:15] VITALS: BP 109/69; PULSE 87; RESP 18; TEMP 36.7; O2SAT 100; BMI 34.1
--- NOTE | 2021-03-14 02:26 | RAD_ITS ---
STUDY: X-RAY - RIGHT WRIST REASON FOR EXAM: Female, 45 years old. injury TECHNIQUE: 3 view(s) of the wrist were obtained. COMPARISON: None. FINDINGS: Normal visualized distal radius and ulna. Normal radiocarpal articulation. Normal distal radioulnar articulation. Normal carpal bones. Normal carpal articulations. There is degenerative arthrosis of the carpometacarpal articulation of the thumb. Normal second through fifth carpometacarpal articulations. Normal visualized metacarpal bones. The soft tissue structures are unremarkable. RAD/Wrist min 3 Views IMPRESSION: No acute findings. Degenerative change of the first carpometacarpal joint Electronically Signed: Ryan Mancia DO at 3:22 EDT Tel , Service support ,
--- NOTE | 2021-03-14 02:27 | EDS_ITS ---
HPI History of Present Illness Chief Complaint: Upper Extremity Injury Informant: patient Narrative Narrative: 45-year-old female states that yesterday she fell and struck her right wrist and hand on the ground. She states she had surgery a year ago to repair a tendon. Today she went to work hurting her. She notes some bruising along the lateral aspect of the wrist and hand. [facility] Medical History History of epilepsy Migraines Home Medications lamotrigine 600 mg PO TID 06/06/13 [History Last Taken 02/01/20 09:00] escitalopram oxalate 10 mg PO DAILY 09/28/20 [History Last Taken Unknown] rimegepant [Nurtec ODT] 75 mg PO Q48H 12/16/20 [History Last Taken Unknown] Allergy/AdvReac Type Severity Reaction Status Date / Time aspirin Allergy Rash Verified 03/14/21 02:18 codeine Allergy Rash Verified 03/14/21 02:18 morphine Allergy Rash Verified 03/14/21 02:18 Penicillins Allergy Rash Verified 03/14/21 02:18 diphenhydramine HCl AdvReac Other Verified 03/14/21 02:18 [From Benadryl] promethazine HCl AdvReac Other Verified 03/14/21 02:18 [From Phenergan] SEAFOOD Allergy Rash Uncoded 03/14/21 02:18 Social History (Updated 03/14/21 @ 02:[address] Roberto Serrano DO) Smoking Status: Never smoker substance use type: does not use ROS ROS ED Constitutional Constitutional ED: Denies chills or weight loss Eyes Eyes: Denies change in vision or diplopia ENT ENT ED: Denies ear pain, rhinorrhea or sore throat Cardiovascular Cardiovascular: Denies chest pain, orthopnea, palpitations or racing heartbeat Respiratory/Chest Respiratory/Chest: Denies cough, dyspnea or orthopnea Gastrointestinal Gastrointestinal: Denies abdominal pain, diarrhea, nausea or vomiting Genitourinary Genitourinary ED: Denies dysuria, hematuria or urinary frequency Musculoskeletal Musculoskeletal: Reports other Details: See history of present illness ; Denies arthralgias or myalgias Integumentary Denies abscess or rash Neurologic Neurologic: Denies headache(s) or weakness Psychiatric Psychiatric: Denies anxiety, depression, suicidal ideation or suicidal thoughts Endocrine Endocrinology: Denies polydipsia, polyphagia or polyuria Allergic/Immunologic Allergic/Immunologic ED: Denies mouth swelling, tongue swelling or urticaria EXAM Physical Exam Const Vital Signs: 03/14/21 02:15 Temperature 98.0 F Temperature Source Oral Pulse Rate 87 Respiratory Rate 18 Blood Pressure 109/69 Blood Pressure Mean 82 Pulse Ox 100 Oxygen Delivery Method Room Air Positive well nourished and well developed General Appearance ED: well developed HEENT Reports normocephalic, head/scalp atraumatic and moist mucous membranes Eyes PERRL and EOMs intact bilaterally Neck no lymphadenopathy, supple and no JVD Resp normal respiratory effort and clear to auscultation bilaterally Cardio regular rate, regular rhythm and no murmurs GI normal to inspection, nondistended, normoactive bowel sounds and non-tender Palpation: soft Back/Spine no CVA tenderness and normal ROM Extremity Extremity Narrative: On the volar and lateral aspect of the right wrist is an area of ecchymosis. There is no loss of tendon function. Neurovascular intact. General Extremety ED: Negative for edema General Extremity: Negative for edema Neuro oriented x3 and CN's II-XII intact bilaterally Sensorium / Orientation: alert Motor Exam: strength 5/5 throughout Psych mental status grossly normal Mood & Affect: Negative for depressed or tearful Skin no rashes or lesions noted and no wounds MDM MDM MDM Narrative Medical decision making narrative: My interpretation of the plain films of the right wrist is no acute fracture. Noted first CMC arthritis and was relayed to the patient. Patient be discharged home with supportive care Discharge Plan Triage Chief Complaint: Upper Extremity Injury ED Provider: Roberto Serrano Dx/Rx/DC Orders Clinical Impression: Contusion of right wrist Instructions: Bone Contusion Prescriptions: No Action lamotrigine 200 MG tablet 600 mg PO TID RF: 0 escitalopram oxalate 10 MG tablet 10 mg PO DAILY RF: 0 Nurtec ODT 75 mg Tablet,Disintegrating 75 mg PO Q48H RF: 0 Primary Care Provider: Jimenez Cabrera MEDICAL RECORDS RECEPTIONIST Referrals: Care Physician,No Primary [NON-STAFF] - Activity Restrictions/Additional Instructions: Follow-up with your hand surgeon in 10 to 14 days if not improved Disposition Disposition: Home, Self Care
[2021-03-14 02:57] VITALS: BP 109/69; PULSE 87; RESP 18; O2SAT 100
== END 2021-03-14 02:57 | disposition home or self-care (01) ==
PROVIDERS: Emergency Provider Emergency Medicine; PCP Nurse Practitioner Family
DX: S60.211A Contusion of right wrist, initial encounter (principal); M18.9 Osteoarthritis of first carpometacarpal joint, unspecified; W18.30XA Fall on same level, unspecified, initial encounter; Y93.89 Activity, other specified; Y92.89 Other specified places as the place of occurrence of the external cause; Y99.8 Other external cause status
CPT/HCPCS: 73110; 99282

== ENCOUNTER 2021-03-30 22:46 | Emergency (ER) | payer MEDICAID, SELFPAY ==
[2021-03-30 22:47] VITALS: BP 104/89; PULSE 82; RESP 17; TEMP 36.1; O2SAT 98; BMI 32.8
--- NOTE | 2021-03-30 22:57 | RAD_ITS ---
STUDY: X-RAY CHEST REASON FOR EXAM: Female, 45 years old. Dyspnea TECHNIQUE: Portable, approximately chest radiograph COMPARISON: 01/24/2021 FINDINGS: The lungs are clear and expanded. There is no demonstrated pleural abnormality. Normal size heart. Normal mediastinum and padmini. Normal visualized pulmonary arteries. Normal visualized aortic arch and descending thoracic aorta. Normal visualized thoracic spine. Normal visualized ribs, clavicles, and shoulders. There is no demonstrated abnormality of the visualized soft tissue structures of the upper abdomen. RAD/Chest 1 View (Portable) IMPRESSION: No acute abnormal cardiopulmonary finding. Electronically Signed: Bob Tran MD at 0:14 EDT Tel , Service support ,
--- NOTE | 2021-03-30 22:59 | EDS_ITS ---
HPI History of Present Illness Chief Complaint: Shortness of Breath Informant: patient Onset/Context/Timing Onset: Hours (3) Context: sudden Timing: Continuous Quality: Positive for Dyspnea on exertion Worsened by: Nothing Relieved by: Nothing Associated Symptoms Negative for cough, rhinorrhea, post nasal drip, ear pain, fever, sore throat, subjective, chills or sweats Narrative Narrative: Patient presents with shortness of breath that has been getting worse over the past 3 hours. Patient states she was at work when she started feeling shortness of breath. Patient states she feels like there is a heaviness on her chest. Patient states nothing makes it worse and nothing makes it better. Patient states it has been constant. Patient denies any cough. Patient denies any COVID-19 exposures. Patient denies any nausea or vomiting. PE Risk Factors: Negative for Cancer, OCP + Smoking + > 35, Prior DVT or PE, Recent surgery and Recent travel [facility] Medical History (Updated 03/31/21 @ 00:[address] Thomas Atwood, ) History of epilepsy Migraines Home Medications rimegepant [Nurtec ODT] 75 mg PO Q48H 12/16/20 [History Last Taken Unknown] lamotrigine 200 mg tablet,extended release 24 hr 200 mg PO TID 03/18/21 [History Last Taken Unknown] Allergy/AdvReac Type Severity Reaction Status Date / Time aspirin Allergy Rash Verified 03/30/21 22:47 codeine Allergy Rash Verified 03/30/21 22:47 morphine Allergy Rash Verified 03/30/21 22:47 Penicillins Allergy Rash Verified 03/30/21 22:47 diphenhydramine HCl AdvReac Other Verified 03/30/21 22:47 [From Benadryl] promethazine HCl AdvReac Other Verified 03/30/21 22:47 [From Phenergan] SEAFOOD Allergy Rash Uncoded 03/30/21 22:47 Surgical History History of hysterectomy Social History Smoking Status: Never smoker substance use type: does not use ROS ROS ED Constitutional Constitutional ED: Denies chills or fever(s) Eyes Eyes: Reports blurry vision; Denies diplopia ENT ENT ED: Denies rhinorrhea or sore throat Cardiovascular Cardiovascular: Reports chest pain; Denies palpitations Respiratory/Chest Respiratory/Chest: Reports dyspnea; Denies cough Gastrointestinal Gastrointestinal: Denies nausea or vomiting Genitourinary Genitourinary ED: Denies dysuria or hematuria Musculoskeletal Musculoskeletal: Denies back pain or neck pain Integumentary Denies abscess or rash Neurologic Neurologic: Denies headache(s) or weakness Allergic/Immunologic Allergic/Immunologic ED: Denies mouth swelling or urticaria EXAM Physical Exam Const Vital Signs: 03/30/21 22:47 03/30/21 23:29 Temperature 96.9 F L Temperature Source Temporal Pulse Rate 82 Respiratory Rate 17 Respiratory Effort Short of Breath Respiratory Depth Normal Respiratory Pattern Normal Blood Pressure 104/89 H Blood Pressure Mean 94 Pulse Ox 98 Oxygen Delivery Method Room Air Room Air Positive well nourished and well developed General Appearance ED: well developed HEENT Reports moist mucous membranes Neck supple and no JVD Resp normal respiratory effort and clear to auscultation bilaterally Auscultation: diminished lung sounds diffuse Cardio regular rate, regular rhythm and no murmurs GI normal to inspection, nondistended, normoactive bowel sounds and non-tender Palpation: soft Extremity normal to inspection General Extremety ED: Negative for edema or tenderness General Extremity: Negative for edema Neuro oriented x3, CN's II-XII intact bilaterally and no sensory deficits noted Sensorium / Orientation: alert Motor Exam: strength 5/5 throughout Psych mental status grossly normal Skin no rashes or lesions noted MDM MDM MDM Narrative Medical decision making narrative: COVID-19 rapid antigen was obtained was negative. Portable 1 view chest x-ray was obtained. On my interpretation, lung kat are clear. There is normal cardiac silhouette. Bony thorax is normal. There is no acute process noted. Radiologist also interpreted the x-ray and agrees. CBC and comprehensive metabolic profile were obtained and were within normal limits. Patient was given albuterol inhaler. Patient was feeling slightly better after this. Patient was advised of her findings. Patient was instructed to continue her albuterol inhaler every 4 hours as needed. Patient was instructed to follow-up with her primary care physician in 5 to 7 days. Patient understood and was agreeable with the plan. All questions were answered. Lab Data Attestation: I reviewed the patient's lab results. Labs: Laboratory Results - last 24 hr 03/30/21 03/30/21 23:20 23:20 WBC 5.2 RBC 4.36 Hgb 12.7 Hct 39.2 MCV 89.9 MCH 29.1 MCHC 32.4 RDW Std Deviation 41.5 RDW Coeff of Kg 12.6 Plt Count 214 MPV 9.4 Immature Gran % (Auto) 0.200 Neut % (Auto) 59.0 Lymph % (Auto) 23.0 [place] % (Auto) 10.8 H Eos % (Auto) 6.4 H Baso % (Auto) 0.6 Absolute Neuts (auto) 3.1 Absolute Lymphs (auto) 1.19 Nucleated RBC % 0 Sodium 141 Potassium 3.9 Chloride 109 H Carbon Dioxide 26.0 Anion Gap 6 BUN 20 H Creatinine 0.66 Estim Creat Clear Calc 80.37 Est GFR (MDRD) Af Amer 124 Est GFR (MDRD) Non-Af 102 BUN/Creatinine Ratio 30.4 H Glucose 104 Calcium 8.7 Total Bilirubin 0.60 AST 12 L ALT 18 Alkaline Phosphatase 65 Total Protein 6.8 Albumin 3.6 Globulin 3.2 Albumin/Globulin Ratio 1.1 Radiography Chest X-Ray - ED: 1 View, Read by ED Physician, Read by Radiologist and Normal Diagnostic Testing: Radiology Impression Chest X-Ray 03/30/21 22:57 IMPRESSION: No acute abnormal cardiopulmonary finding. Electronically Signed: Bob Tran MD at 0:14 EDT Tel , Service support , Discharge Plan Triage Chief Complaint: Shortness of Breath ED Provider: Thomas Atwood Dx/Rx/DC Orders Clinical Impression: Acute dyspnea Instructions: ED Dyspnea Prescriptions: No Action lamotrigine 200 mg tablet extended release 24hr 200 mg PO TID RF: 0 Nurtec ODT 75 mg Tablet,Disintegrating 75 mg PO Q48H RF: 0 Stand Alone Forms: Work Status Form Primary Care Provider: Jimenez Cabrera NP Referrals: Jimenez Cabrera NP, [employer] [Primary Care Provider] - 3-5 Days Disposition Disposition: Home, Self Care
[2021-03-30 23:29] VITALS: O2SAT 100
[2021-03-30 23:36] LABS: Absolute Lymphocyte Count 1.19 X10^3/uL (0.83-4.51); Absolute Neutrophil Count 3.1 X10^3/uL (2.0-7.7); Basophil# 0.03 X10^3/uL; Basophil% 0.6 % (0-1); Eosinophil# 0.33 X10^3/uL; Eosinophils% 6.4 % (0-5); Hematocrit 39.2 % (37-47); Hemoglobin 12.7 g/dL (12.0-15.0); Lymphocyte # 1.19 X10^3/ul (0.83-4.51); Mean Corp Hgb Conc 32.4 g/dL (32-36); Mean Corpuscular Hgb 29.1 pg (27.0-32.0); Mean Corpuscular Volume 89.9 fL (81-99); Mean Platelet Vol. 9.4 fl (6.2-12.0); Monocyte# 0.56 X10^3/uL; Monocyte% 10.8 % (0-10); NRBC Flagged by Analyzer 0 % (0-5); Neutrophil # 3.06 X10^3/uL (2.7-7.7); Platelet Count 214 K/mm3 (150-450); RBC Distribution Width CV 12.6 % (11.6-14.6); RBC Distribution Width SD 41.5 fl (35.1-43.9); Red Blood Count 4.36 M/mm3 (4.2-5.4); White Blood Count 5.2 K/mm3 (4.4-11.0)
[2021-03-30 23:44] LABS: ALB/GLOB Ratio 1.1 RATIO (0.9-2.4); AST(SGOT) 12 U/L (15-37); Alanine Aminotransfer ALT/SGPT 18 U/L (13-56); Albumin, Serum 3.6 g/dL (3.2-5.0); Alkaline Phosphatase 65 U/L (45-117); Anion Gap 6 (5-15); BUN 20 mg/dL (7-18); BUN/Creat Ratio 30.4 RATIO (10-20); Calcium,Total 8.7 mg/dL (8.5-10.1); Chloride 109 mmol/L (98-107); Creatinine, Serum 0.66 mg/dL (0.55-1.02); EST Glomerular Filtration Rate 102 mL/min (>60); Est Glom Filt Rate - Afr Amer 124 mL/min (>60); Estimated Creatinine Clearance 80.37 ml/min; Globulin 3.2 g/dL (2.2-4.2); Glucose 104 mg/dL (74-106); Potassium 3.9 mmol/L (3.5-5.1); Protein, Total 6.8 g/dL (6.4-8.2); Sodium Level 141 mmol/L (136-145)
== END 2021-03-31 00:52 | disposition home or self-care (01) ==
PROVIDERS: Emergency Provider Emergency Medicine; PCP Nurse Practitioner Family
DX: R06.00 Dyspnea, unspecified (principal); R06.02 Shortness of breath; G43.909 Migraine, unspecified, not intractable, without status migrainosus; G40.909 Epilepsy, unspecified, not intractable, without status epilepticus; Z79.899 Other long term (current) drug therapy
CPT/HCPCS: 71045; 80053; 85025; 87426; 99283; A4216

== ENCOUNTER → 2021-04-11 | Outpatient (CLI) | payer MEDICAID, SELFPAY | END | disposition home or self-care (01) | LOC: LABSPEC 04-12 07:57 | PROVIDERS: PCP Nurse Practitioner Family; Referring Provider Physician Assistant; Visit Provider Physician Assistant | DX: Z20.822 Contact with and (suspected) exposure to COVID-19 (principal) | CPT/HCPCS: 87635; U0005; U0003 ==

== ENCOUNTER 2021-11-14 13:00 | Outpatient (RCR) | payer MEDICAID, SELFPAY ==
--- NOTE | 2021-10-08 08:52 | HP.OTEVAL ---
Patient's Visit Information SRI CHACON is a 46 year old F, referred to Occupational Therapy by WARD TRAMMELL, with a diagnosis of right cmc arthritis. Date of Evaluation: 10/08/21 Occupational Therapist: Janeth Jason, SEBASTIANR/Demetri, CHT - Subjective This 46 year old female was seen for OT eval with dx of arthritis of CMC joint right hand- pt states she has sx 2020. pt arrives to initial OT eval 10 weeks and 5 days s/p. per pt Dr. garcia her thumb. pt is unable to recall sx irvin. pt arrives in short thumb orthosis. pt did see Therapist at other facility for 3 sessions. pt works at [employer] and hopes to return to work November. pt states she can see her fingers move but is unable to feel her hand. 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 pt states she did see neurologist due to pts lack of sensation but neurologist stated nerves would take some time to repair. pt has hx of epilepsy. - ADLs Dressing: Button shirt Fasteners: Tie shoes, Buttons, Zippers, Snaps Eating: Use silverware, Cut food, Drink from glass Bathing: Handle washcloth & soap, Squeeze shampoo bottle Kitchen: Chop with knife, Peel fruits & vegetables, Open jars, Open bottle caps, Ziplock bags, Lift gallon of milk Household: Vacuum, Sweep/mop Miscellaneous: Unlock front door, Open medication bottle, Hold change, Take things out of wallet, Carry shopping bag, Write, Use computer keyboard Comments: pt has hx of epilepsy. 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 Left: 18.92 sec. - Quick DASH-Disab of Arm,Shoulder& Hand Quick DASH Score: 88.3325 - Goals Goal:100% adherence to protocol: Yes Comment: cmc arthroplasty Goal:Daily scar massage when approriate: Yes Goal:ROM equal to unaffected hand: Yes Goal:Aurist/Pinch strength at least 75% of unaffected hand: Yes Goal:No pain with affected hand use: Yes Goal:Full use of affected hand in daily activities including: Yes Goal:Improvement in sensation documented by Ruffin-Balaji: Yes - Rehabilitation General Assessment: pt demo with limited right thumb wrist ROM and weakness following sx. pt demo tremor in right UE with FM testing- pt is limited with functional use of right hand with ADls and IADls and would benefit from skilled OT services 2-3x week for 6 weeks to return pt to using right UE with daily tasks. Pt demo understanding and agree to POC. Rehabilitation Potential: Good - Anticipated Interventions A/AAROM/PROM, Strengthening, Scar Care, Modalities, Orthoses, Joint Protection/Energy Conservation, Ergonomic Education, Fine Motor Coord/Isiah, Education re assistive Equipment, Education re Diagnosis, Home Program - Visit Plan Frequency: 2-3x /Week Duration: 6 Weeks General Plan: initiate strengthening and weaning out of orthosis for light daily tasks-. use orthosis with heavy tasks. sensory re-ed. TEXT: Thank you for the opportunity to evaluate your patient. For Medicare and Medicare HMO plans, please review the plan of care and approve it. It will need to be FAXED BACK to us at [phone] for Medicare purposes. Please let me know if there are questions or concerns regarding this plan of care. Physician Signature: Date:
--- NOTE | 2021-12-06 12:03 | HP.OT.NRP ---
SRI CHACON was seen in my office for initial evaluation on 10/08/21. The following Plan of Care was established for this patient: Initial Frequency: 2-3x /Week Initial Duration: 6 Weeks Plan: cont POC Anticipated Interventions: A/AAROM/PROM, Strengthening, Scar Care, Modalities, Orthoses, Joint Protection/Energy Conservation, Ergonomic Education, Fine Motor Coord/Isiah, Education re assistive Equipment, Education re Diagnosis, Home Program This patient was last seen in our office 11/14/21. Pertinent comments regarding their Occupational therapy will appear below: pt attended 4/12 visits with multiple cancelations and no show apts- Due to pts attendance pt is d/c at this time. At this point I will be discontinuing this patient from occupational therapy. I would be happy to see this patient again in the future if found appropriate by the physician. Thank you! Janeth Jason, OTR/L, CHT
== END 2021-11-14 19:00 | disposition home or self-care (01) ==
LOC: OT 13:00
PROVIDERS: PCP Nurse Practitioner Family
DX: M18.11 Unilateral primary osteoarthritis of first carpometacarpal joint, right hand (principal)
CPT/HCPCS: 97110; 97166; 97530

== ENCOUNTER 2021-12-15 14:09 | Emergency (ER) | payer MEDICAID, SELFPAY ==
[2021-12-15 14:11] VITALS: BP 158/80; PULSE 115; RESP 18; TEMP 36.8; O2SAT 95; BMI 25.4
--- NOTE | 2021-12-15 14:19 | RAD_ITS ---
STUDY: X-RAY - RIGHT WRIST REASON FOR EXAM: Female, 46 years old. pain TECHNIQUE: 3 view(s) of the wrist were obtained. COMPARISON: 03/14/2021 FINDINGS: Normal visualized distal radius and ulna. Normal radiocarpal articulation. Normal distal radioulnar articulation. Normal carpal bones. Normal carpal articulations. Normal carpometacarpal articulation of the thumb. Normal second through fifth carpometacarpal articulations. Normal visualized metacarpal bones. The soft tissue structures are unremarkable. RAD/Wrist min 3 Views IMPRESSION: Normal x-ray examination of the wrist. Electronically Signed: Quintin Wilkes MD at 16:32 EDT ,
--- NOTE | 2021-12-15 14:19 | EX.ED.UPPERE ---
HPI History of Present Illness Chief Complaint: Upper Extremity Injury Informant: patient Narrative Narrative: -year-old female presents the emergency room with pain and redness at prior surgical site of the right wrist. Patient cannot tell me what her diagnosis was other than she had surgery at [facility] in July. She states that she has just gone back to work and now notes pain in the thumb and along the incision and some erythema. She called her surgeon and was sent to the emergency department on this weekend. [facility] Medical History History of epilepsy Migraines Home Medications rimegepant [Nurtec ODT] 75 mg PO Q48H 12/16/20 [History Last Taken Unknown] lamotrigine 200 mg tablet,extended release 24 hr 200 mg PO TID 03/18/21 [History Last Taken Unknown] trazodone 50 mg tablet 50 mg PO DAILY tab 04/05/21 [History Last Taken Unknown] cephalexin 500 mg PO Q6 #28 capsule 12/15/21 [Rx Last Taken Unknown] Allergy/AdvReac Type Severity Reaction Status Date / Time aspirin Allergy Rash Verified 12/15/21 14:11 codeine Allergy Rash Verified 12/15/21 14:11 morphine Allergy Rash Verified 12/15/21 14:11 Penicillins Allergy Rash Verified 12/15/21 14:11 diphenhydramine HCl AdvReac Other Verified 12/15/21 14:11 [From Benadryl] promethazine HCl AdvReac Other Verified 12/15/21 14:11 [From Phenergan] SEAFOOD Allergy Rash Uncoded 12/15/21 14:11 Surgical History H/O wrist surgery History of hysterectomy Social History Smoking Status: Never smoker substance use type: does not use ROS ROS ED Constitutional Constitutional ED: Reports chills; Denies fever(s) or weight loss Eyes Eyes: Denies change in vision or diplopia ENT ENT ED: Denies ear pain, rhinorrhea or sore throat Cardiovascular Cardiovascular: Denies chest pain, orthopnea, palpitations or racing heartbeat Respiratory/Chest Respiratory/Chest: Denies cough, dyspnea or orthopnea Gastrointestinal Gastrointestinal: Denies abdominal pain, diarrhea, nausea or vomiting Genitourinary Genitourinary ED: Denies dysuria, hematuria or urinary frequency Musculoskeletal Musculoskeletal: Reports other Details: See history of present illness ; Denies arthralgias or myalgias Integumentary Reports rash; Denies abscess Neurologic Neurologic: Denies headache(s) or weakness Psychiatric Psychiatric: Denies anxiety, depression, suicidal ideation or suicidal thoughts Endocrine Endocrinology: Denies polydipsia, polyphagia or polyuria Allergic/Immunologic Allergic/Immunologic ED: Denies mouth swelling, tongue swelling or urticaria EXAM Physical Exam Const Vital Signs: 12/15/21 14:11 Temperature 98.2 F Temperature Source Temporal Pulse Rate 115 H Respiratory Rate 18 Blood Pressure 158/80 H Blood Pressure Mean 106 Pulse Ox 95 Oxygen Delivery Method Room Air Positive well nourished and well developed General Appearance ED: well developed HEENT Reports normocephalic, head/scalp atraumatic and moist mucous membranes normocephalic and atraumatic Eyes PERRL and EOMs intact bilaterally Neck no lymphadenopathy, supple and no JVD Resp normal respiratory effort and clear to auscultation bilaterally Cardio regular rate, regular rhythm and no murmurs GI normal to inspection, nondistended, normoactive bowel sounds and non-tender Palpation: soft Back/Spine no CVA tenderness and normal ROM Extremity Extremity Narrative: There is a well-healed surgical incision along the right thumb and wrist. There is an area just medial to the scar that appears more irritated than cellulitic. General Extremety ED: Negative for edema General Extremity: Negative for edema Neuro oriented x3 and CN's II-XII intact bilaterally Sensorium / Orientation: alert Motor Exam: strength 5/5 throughout Psych mental status grossly normal Mood & Affect: Negative for depressed or tearful Skin no rashes or lesions noted and no wounds MDM MDM MDM Narrative Medical decision making narrative: My interpretation of the plain films of the right wrist is no acute fracture no acute process. Write for the patient to have some Keflex I would encourage her to follow-up with her hand surgeon Discharge Plan Triage Chief Complaint: Upper Extremity Injury Other Complaint: Cellulitis ED Provider: Roberto Serrano Dx/Rx/DC Orders Clinical Impression: Acute pain of right wrist Prescriptions: New cephalexin [cephalexin] 500 MG capsule 500 mg PO Q6 Qty: 28 RF: 0 No Action lamotrigine 200 mg tablet extended release 24hr 200 mg PO TID RF: 0 trazodone 50 mg tablet 50 mg PO DAILY RF: 0 Nurtec ODT 75 mg Tablet,Disintegrating 75 mg PO Q48H RF: 0 Primary Care Provider: Jimenez Cabrera NP Referrals: Jimenez Cabrera NP, AUTOMOBILE GLASS TECHNICIAN-C [Primary Care Provider] - Activity Restrictions/Additional Instructions: Please follow-up with your surgeon Disposition Disposition: Home, Self Care
== END 2021-12-15 15:46 | disposition home or self-care (01) ==
LOC: ED 14:26
PROVIDERS: Emergency Provider Emergency Medicine; PCP Nurse Practitioner Family; Visit Provider Emergency Medicine
DX: M25.531 Pain in right wrist (principal); G43.909 Migraine, unspecified, not intractable, without status migrainosus; Z79.899 Other long term (current) drug therapy; L03.90 Cellulitis, unspecified
CPT/HCPCS: 73110; 99282

== ENCOUNTER 2022-03-27 10:26 | Emergency (ER) | payer MEDICAID, SELFPAY ==
[2022-03-27 10:28] VITALS: BP 128/86; PULSE 102; RESP 18; TEMP 36; O2SAT 98; BMI 25.9
--- NOTE | 2022-03-27 10:35 | EKG12_ITS ---
Test Reason : PALPS Blood Pressure : / mmHG Vent. Rate : 081 BPM Atrial Rate : 081 BPM P-R Int : 170 ms QRS Dur : 082 ms QT Int : 354 ms P-R-T Axes : 046 -36 033 degrees QTc Int : 411 ms Sinus rhythm with marked sinus arrhythmia Left axis deviation Low voltage QRS Cannot rule out Anterior infarct , age undetermined Abnormal ECG Confirmed by CANDELARIA GOLDSMITH, TOMAS ([id number]), editor dictionary ANGELINE FRAZIER ([id number]) on 03/28/2022 9:47:18 AM Referred By: COMPA Confirmed By:TOAMS GAONA MD
--- NOTE | 2022-03-27 10:43 | ED.RN ---
pt reports feeling fatigued. started on zoloft. denies other sx
--- NOTE | 2022-03-27 10:52 | EDS_ITS ---
HPI History of Present Illness Chief Complaint: General Illness Informant: patient Onset/Context/Timing Onset: Yesterday Context: Gradual Onset Timing: Continuous Current Severity: Mild Maximum Severity: Mild Narrative Narrative: 46-year-old female history of seizure disorder and migraine headaches. States that she just felt tired last 2 days beginning yesterday. She denies any nausea vomiting or diarrhea. She denies any fever or chills. She denies any melena. She denies any cough or shortness of breath. No chest pain. No weight loss. States she just feels drained. She denies any urinary symptoms. Prior similar symptoms: No Recent Illness/Hospitalization: No PFSH PFSH Medical History History of epilepsy Migraines Home Medications rimegepant 75 mg disintegrating tablet (Nurtec ODT) 75 mg PO Q48H 12/16/20 [History Last Taken Unknown] lamotrigine 200 mg tablet,extended release 24 hr 200 mg PO TID 03/18/21 [History Last Taken Unknown] trazodone 50 mg tablet 50 mg PO DAILY 04/05/21 [History Last Taken Unknown] sertraline 50 mg tablet (Zoloft) 50 mg PO DAILY 03/27/22 [History Last Taken Unknown] Allergy/AdvReac Type Severity Reaction Status Date / Time aspirin Allergy Rash Verified 03/27/22 10:29 codeine Allergy Rash Verified 03/27/22 10:29 morphine Allergy Rash Verified 03/27/22 10:29 Penicillins Allergy Rash Verified 03/27/22 10:29 diphenhydramine HCl AdvReac Other Verified 03/27/22 10:29 [From Benadryl] promethazine HCl AdvReac Other Verified 03/27/22 10:29 [From Phenergan] SEAFOOD Allergy Rash Uncoded 03/27/22 10:29 Surgical History H/O wrist surgery History of hysterectomy Social History Smoking Status: Never smoker substance use type: does not use ROS ROS ED ROS Narrative Tired and fatigued. Review of Systems ROS Unobtainable: Denies due to encephalopathy Constitutional Constitutional ED: Denies chills or fever(s) Eyes Eyes: Denies blurry vision ENT ENT ED: Denies ear pain Cardiovascular Cardiovascular: Denies chest pain Respiratory/Chest Respiratory/Chest: Denies cough or dyspnea Gastrointestinal Gastrointestinal: Denies abdominal pain, constipation, diarrhea, melena, nausea or vomiting Genitourinary Genitourinary ED: Denies dysuria or hematuria Musculoskeletal Musculoskeletal: Denies arthralgias Integumentary Denies abscess Neurologic Neurologic: Denies headache(s) Psychiatric Psychiatric: Denies anxiety Endocrine Endocrinology: Denies cold intolerance Hematologic/Lymphatic Hematologic/Lymphatic: Reports none Allergic/Immunologic Allergic/Immunologic ED: Denies mouth swelling or tongue swelling EXAM Physical Exam Narrative Exam Narrative: 46-year-old female no acute distress. Vital signs stable afebrile. Pulse ox 90% on room air no signs hypoxia. H EENT exam unremarkable. Moist mucous membranes. Neck nontender no lymphadenopathy. Lungs clear to auscultation bilaterally. Heart regular rhythm no murmur rate about 85. Abdomen soft nontender normal bowel sounds no peritoneal signs. Moving all 4 extremities. Calves are nontender no edema or cords. Normal motor strength. Dorsi plantarflexion intact. Back nontender. Neurologically she is awake and alert focal motor deficits. Const Vital Signs: 03/27/22 10:28 03/27/22 10:42 Temperature 96.8 F L Temperature Source Temporal Pulse Rate 102 H Respiratory Rate 18 Respiratory Effort Normal Respiratory Pattern Normal Blood Pressure 128/86 H Blood Pressure Mean 100 Pulse Ox 98 Oxygen Delivery Method Room Air Positive well nourished and well developed; Negative for obese, cachectic, contractures or unkempt General Appearance ED: well developed and NAD; Negative for unkempt, cachectic, contractures, cyanotic or diaphoretic Nutritional Appearance: Negative for cachectic or obese HEENT Reports moist mucous membranes Negative for trauma or tenderness Eyes PERRL and EOMs intact bilaterally General Eye ED: Negative for pale conjunctiva or scleral icterus Neck no lymphadenopathy, supple and no JVD General: Negative for tenderness Chest Wall inspection of chest normal and palpation of chest normal Chest: Negative for other Resp normal respiratory effort and clear to auscultation bilaterally Effort and Inspection: Negative for retractions Auscultation: Negative for rales, rhonchi or wheezes Cardio regular rate, regular rhythm, S1 normal heart sound, S2 normal heart sound and no murmurs GI normal to inspection, nondistended, normoactive bowel sounds, non-tender, non- distended and no masses Inspection: Negative for abdominal distention Auscultation: normoactive bowel sounds Palpation: soft; Negative for tender or guarding Back/Spine no CVA tenderness General Back: Negative for CVA tenderness Cervical Spine: Negative for cervical spine tenderness Thoracic Spine / Upper Back: Negative for thoracic spinal tenderness Lumbar Spine / Lower Back: Negative for lumbar spinal tenderness Extremity normal to inspection General Extremety ED: Negative for edema or tenderness General Extremity: Negative for edema Neuro oriented x3 and CN's II-XII intact bilaterally Sensorium / Orientation: alert; Negative for orientation impaired, lethargic or stuporous Motor Exam: strength 5/5 throughout Psych mental status grossly normal Appearance: Negative for unkempt Attitude: No agitated Mood & Affect: Negative for depressed or anxious Skin no rashes or lesions noted, no wounds and skin turgor normal General Skin Exam: elasticity normal Lesions: No lesion noted Rashes: No rashes noted Trauma: Negative for abrasion Wounds: Negative for wounds noted MDM MDM MDM Narrative Medical decision making narrative: 46-year-old female with generalized fatigue. Exam benign. Screening labs will be obtained. Repeat exam patient is doing well at 1:05 PM. She will be discharged home. We went over all of her normal blood test, EKG and chest x-ray. Lab Data Attestation: I reviewed the patient's lab results. Lab results narrative: CBC shows white count 7. H&H 13 and 40. Platelets 245. Electrolytes unremarkable gap of 6 normal BUN and creatinine. Normal liver enzymes. Glucose of 118. Labs are unremarkable. Labs: Laboratory Results - last 24 hr 03/27/22 03/27/22 11:00 11:00 WBC 7.3 RBC 4.64 Hgb 13.6 Hct 40.4 MCV 87.1 MCH 29.3 MCHC 33.7 RDW Std Deviation 39.6 RDW Coeff of Kg 12.5 Plt Count 245 MPV 8.9 Sodium 138 Potassium 3.8 Chloride 109 H Carbon Dioxide 23.0 Anion Gap 6 BUN 12 Creatinine 0.80 Estim Creat Clear Calc 65.60 Est GFR (MDRD) Af Amer 98 Est GFR (MDRD) Non-Af 81 BUN/Creatinine Ratio 15.0 Glucose 118 H Calcium 9.1 Total Bilirubin 0.50 AST 13 L ALT 16 Alkaline Phosphatase 75 Total Protein 7.2 Albumin 3.4 Globulin 3.8 Albumin/Globulin Ratio 0.9 Radiography Chest X-Ray - ED: 1 View, Read by ED Physician, Read by Radiologist, Heart, Lungs, Mediastinum, Bony Structures, No Acute Disease and Chronic Changes Diagnostic Testing: Clinical Impression(s) from Imaging Studies Chest X-Ray 03/27/22 11:00 IMPRESSION: Normal x-ray examination of the chest. Electronically Signed: Go Armas MD at 11:13 EDT , Chest x-ray, portable, single view interpreted by myself and radiologist shows no acute abnormality. Rhythm Strip Rhythm Strip: Sinus Rhythm Rate: 81 Ectopy: None EKG Initial EKG: Attestation: I personally reviewed and interpreted this EKG as follows: Interpretation: Sinus Rhythm and No Acute Injury Pattern Comments: Normal sinus rhythm rate 81 no acute signs of acute SC or ischem ia. Discharge Plan Triage Chief Complaint: General Illness ED Provider: Davon Hawkins Dx/Rx/DC Orders Clinical Impression: Fatigue Instructions: ED Weakness (Uncertain Cause) Prescriptions: No Action lamotrigine 200 mg tablet extended release 24hr 200 mg PO TID Label Comments: TAKE 2 TABLETS BY MOUTH TWICE DAILY trazodone 50 mg tablet 50 mg PO DAILY Nurtec ODT 75 mg Tablet,Disintegrating 75 mg PO Q48H sertraline [Zoloft] 50 mg Tablet 50 mg PO DAILY Primary Care Provider: Jimenez Cabrera ELECTRONICS PRODUCTION SUPERVISOR Referrals: Jimenez Cabrera ELECTRONICS PRODUCTION SUPERVISOR, ELECTRONICS PRODUCTION SUPERVISOR-C [Primary Care Provider] - 1 Week if not improving Activity Restrictions/Additional Instructions: Your lab work, chest x-ray and EKG were unremarkable today. Follow-up with your primary care physician if not improving. Disposition Disposition: Home, Self Care
--- NOTE | 2022-03-27 11:00 | RAD_ITS ---
STUDY: X-RAY CHEST REASON FOR EXAM: Female, 46 years old. Fatigue TECHNIQUE: Single AP portable view of the chest. COMPARISON: Comparison is made with prior study dated 03/30/2021. FINDINGS: EKG electrodes are seen. The lungs are clear and expanded. There is no demonstrated pleural abnormality. Normal size heart. Normal mediastinum and padmini. Normal visualized pulmonary arteries. Normal visualized aortic arch and descending thoracic aorta. Normal visualized thoracic spine. Normal visualized ribs, clavicles, and shoulders. There is no demonstrated abnormality of the visualized soft tissue structures of the upper abdomen. RAD/Chest 1 View (Portable) IMPRESSION: Normal x-ray examination of the chest. Electronically Signed: Go Armas MD at 11:13 EDT ,
[2022-03-27 11:10] LABS: Hematocrit 40.4 % (37-47); Hemoglobin 13.6 g/dL (12.0-15.0); Mean Corp Hgb Conc 33.7 g/dL (32-36); Mean Corpuscular Hgb 29.3 pg (27.0-32.0); Mean Corpuscular Volume 87.1 fL (81-99); Mean Platelet Vol. 8.9 fl (6.2-12.0); Platelet Count 245 K/mm3 (150-450); RBC Distribution Width CV 12.5 % (11.6-14.6); RBC Distribution Width SD 39.6 fl (35.1-43.9); Red Blood Count 4.64 M/mm3 (4.2-5.4); White Blood Count 7.3 K/mm3 (4.4-11.0)
[2022-03-27 11:27] LABS: ALB/GLOB Ratio 0.9 RATIO (0.9-2.4); AST(SGOT) 13 U/L (15-37); Alanine Aminotransfer ALT/SGPT 16 U/L (13-56); Albumin, Serum 3.4 g/dL (3.2-5.0); Alkaline Phosphatase 75 U/L (45-117); Anion Gap 6 (5-15); BUN 12 mg/dL (7-18); Calcium,Total 9.1 mg/dL (8.5-10.1); Chloride 109 mmol/L (98-107); EST Glomerular Filtration Rate 81 mL/min (>60); Est Glom Filt Rate - Afr Amer 98 mL/min (>60); Globulin 3.8 g/dL (2.2-4.2); Glucose 118 mg/dL (74-106); Potassium 3.8 mmol/L (3.5-5.1); Protein, Total 7.2 g/dL (6.4-8.2); Sodium Level 138 mmol/L (136-145)
[2022-03-27 12:27] VITALS: RESP 16
[2022-03-27 13:08] VITALS: RESP 16
== END 2022-03-27 13:14 | disposition home or self-care (01) ==
PROVIDERS: Emergency Provider Emergency Medicine; PCP Nurse Practitioner Family; Visit Provider Emergency Medicine
DX: G40.909 Epilepsy, unspecified, not intractable, without status epilepticus (principal); R53.83 Other fatigue; Z79.899 Other long term (current) drug therapy
CPT/HCPCS: 71045; 80053; 85027; 93005; 99283; A4216

== ENCOUNTER 2023-01-12 10:42 | Emergency (ER) | payer MEDICAID, SELFPAY ==
[2023-01-12 10:42] VITALS: BP 130/96; PULSE 78; RESP 16; TEMP 36.3; O2SAT 100; BMI 26.4
--- NOTE | 2023-01-12 11:02 | RAD_ITS ---
STUDY: X-RAY - RIGHT TIBIA AND FIBULA REASON FOR EXAM: Female, 47 years old. Injury/Pain TECHNIQUE: 3 view(s) of the tibia and fibula were obtained. COMPARISON: None. FINDINGS: Normal visualized tibia. Normal visualized fibula. The soft tissue structures are unremarkable. RAD/Tibia & Fibula 2 Views IMPRESSION: Normal x-ray examination of the tibia and fibula. Electronically Signed: Go Armas MD at 11:31 EDT ,
--- NOTE | 2023-01-12 11:12 | RAD_ITS ---
STUDY: X-RAY - RIGHT ANKLE REASON FOR EXAM: Female, 47 years old. Pain and swelling following a recent fall. TECHNIQUE: 3 view(s) of the ankle. COMPARISON: None. FINDINGS: Normal visualized distal tibia and fibula. Normal medial and lateral malleoli. Normal tibiotalar articulation and ankle mortise. Normal visualized talus and calcaneus. The visualized subtalar, talonavicular, calcaneocuboid and tarsal articulations are normal. Diffuse soft tissue swelling more prominent overlying the lateral malleolus. RAD/Ankle min 3 Views IMPRESSION: Soft tissue swelling more prominent overlying the lateral malleolus. Electronically Signed: Go Armas MD at 11:30 EDT ,
--- NOTE | 2023-01-12 11:33 | ED.VIS.LOWEX ---
HPI History of Present Illness HPI Narrative: Patient presents with right ankle injury that occurred yesterday. Patient states she fell and twisted her right ankle. Patient is unsure if it was an inversion or eversion injury. Patient describes her pain as stabbing and throbbing. Patient states her pain is worse with weightbearing. Patient denies any paresthesias or weakness. Patient denies any head injury or loss of consciousness. Patient denies any other injuries. Chief Complaint: Lower Extremity Injury Informant: patient Occured/Mechanism Mechanism/Context: Yes fall Onset/Context/Timing Onset: Yesterday Context: Sudden Onset Timing: Continuous Quality of Pain: Stabbing and Throbbing Location: Right ankle Worsened by: Weightbearing Relieved by: Nothing Associated Symptoms Associated Symptoms: Negative for Parasthesia, Weakness or Loss of Funtion PFSH [facility] Medical History History of epilepsy Migraines Home Medications rimegepant 75 mg disintegrating tablet (Nurtec ODT) 75 mg PO Q48H 12/16/20 [History Last Taken Unknown] lamotrigine 200 mg tablet,extended release 24 hr 200 mg PO TID 03/18/21 [History Last Taken Unknown] trazodone 50 mg tablet 50 mg PO DAILY 04/05/21 [History Last Taken Unknown] sertraline 50 mg tablet (Zoloft) 50 mg PO DAILY 03/27/22 [History Last Taken Unknown] Allergy/AdvReac Type Severity Reaction Status Date / Time aspirin Allergy Rash Verified 01/12/23 10:44 codeine Allergy Rash Verified 01/12/23 10:44 Fish Containing Products Allergy Rash Verified 01/12/23 10:44 morphine Allergy Rash Verified 01/12/23 10:44 Penicillins Allergy Rash Verified 01/12/23 10:44 shellfish derived Allergy Rash Verified 01/12/23 10:44 diphenhydramine HCl AdvReac Other Verified 01/12/23 10:44 [From Benadryl] promethazine HCl AdvReac Other Verified 01/12/23 10:44 [From Phenergan] Surgical History H/O wrist surgery History of hysterectomy Social History Smoking Status: Never smoker substance use type: does not use ROS ROS ED Constitutional Constitutional ED: Denies chills or fever(s) Eyes Eyes: Denies blurry vision or change in vision ENT ENT ED: Denies rhinorrhea or sore throat Cardiovascular Cardiovascular: Denies chest pain or palpitations Respiratory/Chest Respiratory/Chest: Denies cough or dyspnea Gastrointestinal Gastrointestinal: Denies nausea or vomiting Genitourinary Genitourinary ED: Denies dysuria or hematuria Musculoskeletal Musculoskeletal: Denies back pain or neck pain Integumentary Denies abscess or rash Neurologic Neurologic: Denies headache(s) or weakness Allergic/Immunologic Allergic/Immunologic ED: Denies mouth swelling or urticaria EXAM Physical Exam Const Vital Signs: 01/12/23 10:42 Temperature 97.4 F L Temperature Source Temporal Pulse Rate 78 Respiratory Rate 16 Blood Pressure 130/96 H Blood Pressure Mean 107 Pulse Ox 100 Oxygen Delivery Method Room Air Positive well nourished and well developed General Appearance ED: well developed and NAD Neck full ROM and supple Extremity Extremity Narrative: There is tenderness and edema over the lateral malleolus of the right ankle. There is no tenderness medially. There is no obvious deformity noted. Range of motion was limited in all motions of the right ankle secondary to pain. Pedal pulses are equal bilaterally. Sensation was intact to light touch in all digits. Capillary refill was less than 2 seconds in all digits. There is some mild tenderness over the proximal fibula. There is also some mild tenderness over the fifth metatarsal. Neuro oriented x3, CN's II-XII intact bilaterally, moves all extremities and no sensory deficits noted Sensorium / Orientation: alert Motor Exam: strength 5/5 throughout Psych mental status grossly normal MDM MDM MDM Narrative Medical decision making narrative: Differential diagnosis includes right ankle sprain, right ankle fracture, proximal fibula fracture, and fifth metatarsal fracture. X-rays of the right ankle will be obtained to assess for fracture. X-rays of the tibia and fibula will be obtained to assess for proximal fibula fracture. Radiography Diagnostic Testing: Clinical Impression(s) from Imaging Studies Tibia/Fibula X-Ray 01/12/23 11:02 IMPRESSION: Normal x-ray examination of the tibia and fibula. Electronically Signed: Go Armas MD at 11:31 EDT , Ankle X-Ray 01/12/23 11:12 IMPRESSION: Soft tissue swelling more prominent overlying the lateral malleolus. Electronically Signed: Go Armas MD at 11:30 EDT , X-rays of the right ankle were obtained. There are 3 views. On my independent interpretation, there is no acute fracture. There is no dislocation. There is some mild soft tissue swelling. Radiologist also interpreted the x-rays and agrees. X-rays of the right tibia and fibula were obtained. There are 2 views. On my independent interpretation, there is no acute fracture. There is no dislocation. There is no soft tissue swelling. Radiologist also interpreted the x-rays and agrees. Treatment and Re-Evaluation Narrative: Patient was advised of her findings. Patient was instructed to ice and elevate the right ankle. Patient was given an Aircast. Patient was given crutches. Patient was instructed to take Tylenol or ibuprofen as needed for pain. Patient was instructed to follow-up with her primary care physician in 5 to 7 days. Patient understood and was agreeable with the plan. All questions were answered. Discharge Plan Triage Chief Complaint: Lower Extremity Injury ED Provider: Thomas Atwood Dx/Rx/DC Orders Clinical Impression: Right ankle sprain, Fall Instructions: ED Ankle Sprain (Adult) Prescriptions: No Action lamotrigine 200 mg tablet extended release 24hr 200 mg PO TID Label Comments: TAKE 2 TABLETS BY MOUTH TWICE DAILY trazodone 50 mg tablet 50 mg PO DAILY Nurtec ODT 75 mg Tablet,Disintegrating 75 mg PO Q48H sertraline [Zoloft] 50 mg Tablet 50 mg PO DAILY Stand Alone Forms: ED Work / School Excuse Primary Care Provider: Jimenez Cabrera NP Referrals: Jimenez Cabrera DRYING ROOM ATTENDANT, DRYING ROOM ATTENDANT-C [Primary Care Provider] - 5-7 Days Disposition Disposition: Home, Self Care
== END 2023-01-12 11:55 | disposition home or self-care (01) ==
PROVIDERS: Emergency Provider Emergency Medicine; PCP Nurse Practitioner Family; Visit Provider Emergency Medicine
DX: S93.401A Sprain of unspecified ligament of right ankle, initial encounter (principal); W19.XXXA Unspecified fall, initial encounter
CPT/HCPCS: 73590; 73610; 99283

== ENCOUNTER 2023-08-24 12:52 | Emergency (ER) | payer MEDICAID, SELFPAY ==
[2023-08-24 12:53] VITALS: BP 105/86; PULSE 92; RESP 18; TEMP 35.9; O2SAT 97; BMI 32.3
== END 2023-08-24 15:05 | disposition left against medical advice (07) ==
LOC: ED 15:11
PROVIDERS: PCP Nurse Practitioner Family
DX: Z53.21 Procedure and treatment not carried out due to patient leaving prior to being seen by health care provider (principal)

== ENCOUNTER 2023-09-19 22:49 | Emergency (ER) | payer MEDICAID, SELFPAY ==
[2023-09-19 22:50] VITALS: BP 115/68; PULSE 90; RESP 20; TEMP 36.6; O2SAT 98; BMI 32.8
--- NOTE | 2023-09-19 23:03 | RAD_ITS ---
INDICATION: Pain, no known injury EXAMINATION/TECHNIQUE: X-RAY - LEFT XR Knee Complete 4 Views or More 4 VIEWS COMPARISON: 09/14/2023 FINDINGS: SOFT TISSUES: No soft tissue swelling or gas. Small suprapatellar effusion. BONES/JOINTS: No acute fracture. Joint spaces anatomically aligned. No sclerotic or destructive changes observed. RAD/Knee 4 or More Views IMPRESSION: No acute bony injury. Suprapatellar effusion. Electronically Signed: Chavez Fajardo MD at 23:42 EST ,
--- NOTE | 2023-09-19 23:03 | ED.VIS.LOWEX ---
HPI History of Present Illness Chief Complaint: Lower Extremity Injury Detail of Chief Complaint: Left knee pain Informant: patient Onset/Context/Timing Onset: - (Acute on chronic) Narrative Narrative: Patient presents with acute on chronic left knee pain. Her left knee is been bothering her for several weeks and she was seen by [facility] recently. X-rays did show some fluid collection and they were concerned based on her history that she might have a meniscus tear. She is scheduled for an MRI on the . Patient states tonight she stepped and felt something rip in her knee. She now has increased pain. She is currently on Celebrex with Tylenol for breakthrough pain. She has reported allergies to morphine and codeine which cause rash. She has a history of seizures so I am not able to use tramadol at this time. [facility] Medical History History of epilepsy Migraines Home Medications rimegepant 75 mg disintegrating tablet (Nurtec ODT) 75 mg PO Q48H 12/16/20 [History Last Taken Unknown] lamotrigine 200 mg tablet,extended release 24 hr 200 mg PO TID 03/18/21 [History Last Taken Unknown] trazodone 50 mg tablet 50 mg PO DAILY 04/05/21 [History Last Taken Unknown] sertraline 50 mg tablet (Zoloft) 50 mg PO DAILY 03/27/22 [History Last Taken Unknown] celecoxib 200 mg capsule 200 mg PO BID Pain #30 caps 09/14/23 [Rx Last Taken Unknown] hydrocodone-acetaminophen 5-325mg 5mg-325mg 1 tab PO Q6H PRN PRN Pain 3 days #12 TABLETS 09/19/23 [Rx Last Taken Unknown] Allergy/AdvReac Type Severity Reaction Status Date / Time aspirin Allergy Rash Verified 09/19/23 22:51 codeine Allergy Rash Verified 09/19/23 22:51 Fish Containing Products Allergy Rash Verified 09/19/23 22:51 morphine Allergy Rash Verified 09/19/23 22:51 Penicillins Allergy Rash Verified 09/19/23 22:51 shellfish derived Allergy Rash Verified 09/19/23 22:51 diphenhydramine HCl AdvReac Other Verified 09/19/23 22:51 [From Benadryl] promethazine HCl AdvReac Other Verified 09/19/23 22:51 [From Phenergan] Surgical History H/O wrist surgery History of hysterectomy Social History Smoking Status: Never smoker substance use type: does not use ROS ROS ED Constitutional Constitutional ED: Denies chills or fever(s) Eyes Eyes: Denies discharge from eye(s) ENT ENT ED: Denies discharge from eye(s), rhinorrhea or sore throat Cardiovascular Cardiovascular: Denies chest pain Respiratory/Chest Respiratory/Chest: Denies cough or dyspnea Gastrointestinal Gastrointestinal: Denies abdominal pain, nausea or vomiting Musculoskeletal Musculoskeletal: Reports extremity pain; Denies back pain Integumentary Denies Abrasions or rash Neurologic Neurologic: Denies headache(s), paresthesias or weakness Allergic/Immunologic Allergic/Immunologic ED: Denies lip swelling or urticaria EXAM Physical Exam Const Vital Signs: 09/19/23 22:50 Temperature 98 F Temperature Source Oral Pulse Rate 90 Respiratory Rate 20 H Blood Pressure 115/68 Blood Pressure Mean 83 Pulse Ox 98 Oxygen Delivery Method Room Air Positive well nourished and well developed General Appearance ED: well developed Chest Wall inspection of chest normal and palpation of chest normal Resp normal respiratory effort and clear to auscultation bilaterally Cardio regular rate and regular rhythm Extremity Extremity Narrative: Mild edema noted to the left knee. Diffuse tenderness to palpation. Ligaments appear tight on testing. Strong distal pulses. No erythema or excessive skin warmth. Skin Lesions: no lesions Rashes: no rashes MDM MDM MDM Narrative Medical decision making narrative: Patient was observed ambulating to the room with antalgic gait. With patient having increased pain after stepping wrong today repeat knee x-rays will be obtained to ensure no acute bony injury. Treatment and Re-Evaluation Narrative: Left knee x-rays per my interpretation reveal no acute bony injury. No significant change when compared to prior images. Test results discussed with the patient. She now has a friend at bedside that is able to drive her home. She will try [place] for pain and first dose will be given here. She states with codeine and morphine in the past she got a rash but denies any shortness of breath or difficulty swallowing. She will closely monitor her symptoms. Rachid wrap will be applied to the knee and she will be given crutches. She may weight-bear as tolerated. She is to follow-up for her MRI on Thursday as scheduled. Discharge Plan Triage Chief Complaint: Lower Extremity Injury ED Provider: Carla Moore Dx/Rx/DC Orders Clinical Impression: Left knee sprain Instructions: ED Knee Sprain Prescriptions: New hydrocodone-acetaminophen 5-325 mg tablet 1 tab PO Q6H PRN PRN (Reason: Pain) 3 Days Qty: 12 0RF No Action lamotrigine 200 mg tablet extended release 24hr 200 mg PO TID Patient Comments: TAKE 2 TABLETS BY MOUTH TWICE DAILY trazodone 50 mg tablet 50 mg PO DAILY celecoxib 200 mg capsule 200 mg PO BID Qty: 30 0RF Rx Instructions: Do not take in conjunction with other NSAIDs. Tylenol is okay. Nurtec ODT 75 mg Tablet,Disintegrating 75 mg PO Q48H sertraline [Zoloft] 50 mg Tablet 50 mg PO DAILY Stand Alone Forms: ED Work / School Excuse Primary Care Provider: Jimenez Caberra NP Referrals: Jimenez Cabrera CONSULTING SALES MANAGER, CONSULTING SALES MANAGER-C [Primary Care Provider] - Activity Restrictions/Additional Instructions: Follow-up for your MRI on Thursday as scheduled. Disposition Disposition: Home, Self Care
--- OUTSIDE RECORDS SUMMARY | 2023-09-19 23:52 | XMS RPT_ITS | CCD ---
Author Name Unknown Address [address] [place] [address] Organization [facility] Care Team Providers Care Chick Room Supervisor Name Role Phone Ludwig Mace Unavailable Alberto Matamoros MD Unavailable Zaida Masters Jr. Primary Care Provider Terry Boykin MD, Zaida Barahona Primary Care Provider Terry Boykin MD, Zaida Barahona Primary Care Provider Terry Boykin MD, Zaida Barahona Primary Care Provider Unavailable Primary Care Provider Unavailabl e YESICA BEAN Attending Unavailable YESICA BEAN Referring Unavailable ZAIDA MASTERS JR Primary Care Unavailable [facility], EL[facility] Care Physician DAYAN HUMMEL Attending Unavailab rohit GIBSON APRN-SAND CONTROL WORKER, [facility] Care Unavailabl e DAYAN HUMMEL Attending Unavailab le [facility], [facility] Care Unavailabl e TESTWHIT JAQUEZ Attending Unavailable TESTRAKE, WHIT Referring Unavailable TESTRAKE, WHIT Referring Unavailable TESTRARIZWAN, WIHT Attending Unavailable TESTRAKE, WHIT Referring Unavailable TESTRAKE, WHIT Referring Unavailable RONNIE DAVISON Attending Unavailable LORI CORRAL Referring Unavailable CHAY KENDRICK Referring Unavailable OROZCO, URIEL Referring Unavailable OROZCO, URIEL Attending Unavailable OROZCO, URIEL Referring Unavailable OROZCO, URIEL Referring Unavailable OROZCO, URIEL Attending Unavailable CHAY KENDRICK Referring Unavailable OROZCO, URIEL Referring Unavailable TESTRAKE, WHIT Referring Unavailable Allergies Allergy Classification Reported Allergen(s) Allergy Type Date of Onset Reaction(s) Facility (3 sources) penicillin; Translations: [Penicillin -class of antibiotic- (substance)] Drug Allergy 12-23-19 17 HIVES, VOMITING [facility] Work Phone: (1 source) Adrenergic Beta-Antagonists drug allergy 03-08-20 19 heart races [facility] Work Phone: (1 source) diphenhydrAMINE Drug Allergy 03-08-20 19 nasty personality [facility] Work Phone: (1 source) Morphine Drug Allergy 03-08-20 19 throat closes [facility] Work Phone: (1 source) Penicillins (Antibiotic) drug allergy 03-08-20 19 throat closes [facility] Work Phone: (1 source) Promethazine Drug Allergy 03-08-20 19 heart race [facility] Work Phone: (20 sources) Aspirin; Translations: [ASPIRIN] Drug Allergy 09-24-19 19 Rash [facility] (20 sources) Codeine; Translations: [CODEINE] [facility] diphenhydrAMINE; Translations: [DIPHENHYDRAMINE HCL] Drug Allergy 07-01-20 06 Mental Status Change [facility] Work Phone: (20 sources) Morphine; Translations: [MORPHINE] Drug Allergy 07-01-20 06 Swelling [facility] Work Phone: (20 sources) Penicillin G; Translations: [PENICILLIN G] Drug Allergy 07-01-20 06 Hives, Swelling [facility] Work Phone: (20 sources) Promethazine; Translations: [PROMETHAZINE HCL] Drug Allergy 07-01-20 06 Intolerance [facility] (10 sources) Salicylic Acid; Translations: [SALICYLATES] Drug Allergy 07-01-20 [facility] Work Phone: (20 sources) Shellfish; Translations: [SHELLFISH DERIVED] Drug Allergy 10-20-19 Anaphylaxis [facility] (19 sources) Salicylate product Propensity to adverse reactions 07-01-20 [facility] Work Phone: (2 sources) diphenhydrAMINE; Translations: [diphenhydramine] Drug Allergy COMBATIVE [facility] (2 sources) Metoprolol; Translations: [metoprolol] Drug Allergy CHEST ON FIRE [facility] (2 sources) Promethazine; Translations: [promethazine] Drug Allergy DE LA CRUZ VEINS [facility] (2 sources) Seafood Food allergy ANAPHYLACTIC [facility] (2 sources) Shellfish; Translations: [shellfish] Food allergy ANAPHYLACTIC [facility] (4 sources) Fish; Translations: [FISH CONTAINING PRODUCTS] Drug Allergy 01-13-20 Rash [facility] Medications Current Medications Medication Drug Class(es) Dates Sig (Normalized) Sig (Original) escitalopram 20 mg oral tablet (2 sources) Serotonin Reuptake Inhibitor Start: 10-30-2020 escitalopram 20 mg oral tablet Dose : 20 mg = 1 tab(s), Oral, qDay, # 90 tab(s), 0 Refill(s), Pharmacy: [id number], Depressed state, 153, cm, 10/30/20 15:10:00 EDT, Height, kg, 10/30/20 15:10:00 EDT, Dosing Weight Start Date: 10/30/20 Status: Ordered 24 hr lamoTRIgine 300 mg extended release oral tablet (20 sources) Mood Stabilizer, Anti-epileptic Agent Start: 12-31-2022 End: 06-29-2023 take 2 tablets by mouth once daily in the evening LAMICTAL XR 200 mg 24 hr tablet Indications: Seizure (HCC) Take 2 tablets by mouth every evening. 180 tablet 1 12/31/2022 06/29/2023 Active Completed/Discontinued Medications Medication Drug Class(es) Dates Sig (Normalized) Sig (Original) acetaminophen 325 mg / oxyCODONE hydrochloride 5 mg oral tablet (1 source) Opioid Agonist Start: 12-16-2016 End: 12-19-2016 OXYCODONE-ACETAMIN OPHEN 5-325 MG TABS Take one tablet every 6 hours as needed for pain OXYCODONE-ACETAMIN OPHEN [id number] Chencho MENDEZ ARIPiprazole 2 mg oral tablet (11 sources) Atypical Antipsychotic Start: 12-06-2021 End: 11-28-2022 ARIPiprazole (ABILIFY) 2 mg tablet atogepant (QULIPTA) 60 mg tablet (12 sources) Start: 11-19-2022 take 1 tablet by mouth once daily atogepant (QULIPTA) 60 mg tablet Take 1 tablet (60 mg) by mouth once daily. 30 tablet 5 11/19/2022 Active Problems Active Problems Problem Classification Problem Date Documented Date Episodic/Chronic Acquired foot deformities (2 sources) Hallux valgus 05-25-2018 Chronic Asthma (20 sources) Asthma; Translations: [Unspecified asthma, uncomplicated] Onset: 07-17-2007 01-05-2018 Chronic Cardiac dysrhythmias (1 source) Palpitations; Translations: [Palpitations] Episodic Ectopic (2 sources) Tubal 05-02-2015 Episodic Epilepsy; convulsions (3 sources) Seizure disorder; Translations: [Epilepsy, unspecified, not intractable, without status epilepticus] Chronic Essential hypertension (20 sources) Essential hypertension; Translations: [Essential (primary) hypertension] Onset: 01-01-2018 01-01-2018 Chronic Headache; including migraine (20 sources) Migraine; Translations: [Migraine, unspecified, not intractable, without status migrainosus] Onset: 02-01-2013 02-01-2013 Chronic Headache; including migraine (2 sources) Medication overuse headache; Translations: [Drug-induced headache, not elsewhere classified, not intractable] Onset: 11-19-2022 Episodic Heart valve disorders (20 sources) Non-rheumatic mitral valve prolapse; Translations: [Nonrheumatic mitral (valve) prolapse] Onset: 06-15-2017 12-24-2017 Chronic Immunizations and screening for infectious disease (1 source) Contact with or exposure to other viral diseases; Translations: [Exposure to COVID-19 virus] Episodic Mood disorders (20 sources) Depressive disorder; Translations: [Depression] Onset: 01-01-2018 01-01-2018 Chronic Neoplasms of unspecified nature or uncertain behavior (2 sources) Intracranial tumor 07-08-2014 Chronic Nonspecific chest pain (1 source) Chest pain; Translations: [Chest pain, unspecified] Episodic Nutritional deficiencies (2 sources) Vitamin D deficiency; Translations: [Vitamin D deficiency, unspecified] Onset: 01-01-2023 12-31-2022 Chronic Osteoarthritis (1 source) Arthritis of first carpometacarpal joint of right hand; Translations: [Unilateral primary osteoarthritis of first carpometacarpal joint, right hand] Chronic Other connective tissue disease (1 source) Pain in right hand; Translations: [Pain in right hand] Episodic Other connective tissue disease (1 source) Peroneal tendinitis of right lower limb; Translations: [Peroneal tendinitis, right leg] 03-10-2023 Episodic Other connective tissue disease (2 sources) Foot pain 05-25-2018 Episodic Other nervous system disorders (1 source) Chronic pain; Translations: [Other chronic pain] Chronic Other nervous system disorders (1 source) Numbness of hand; Translations: [Anesthesia of skin] Episodic Other nervous system disorders (1 source) Skin sensation disturbance; Translations: [Unspecified disturbances of skin sensation] Episodic Other non-traumatic joint disorders (3 sources) Acute ankle pain; Translations: [Pain in right ankle and joints of right foot] 03-10-2023 Episodic Other upper respiratory infections (2 sources) Sore throat symptom; Translations: [Acute pharyngitis, unspecified] 04-28-2023 Episodic Residual codes; unclassified (2 sources) Insomnia 05-25-2018 Episodic Spondylosis; intervertebral disc disorders; other back problems (6 sources) Chronic neck pain; Translations: [Cervicalgia] Onset: 08-24-2023 Episodic Thyroid disorders (1 source) Acquired hypothyroidism; Translations: [Hypothyroidism, unspecified] Chronic Viral infection (1 source) Viral disease; Translations: [Viral infection, unspecified] Episodic Past or Other Problems Problem Classification Problem Date Documented Da te Episodic/Chronic Epilepsy; convulsions (20 sources) Seizure; Translations: [Unspecified convulsions] Onset: 06-02-2014 06-02-2014 Episodic Open wounds of extremities (2 sources) Unspecified open wound of right thumb without damage to nail, initial encounter; Translations: [Laceration of thumb] Onset: 12-16-2016 12-16-2016 Episodic Other non-traumatic joint disorders (1 source) Pain in right ankle and joints of right foot; Translations: [Acute right ankle pain] Onset: 04-10-2023 Episodic Sprains and strains (12 sources) Sprain of right ankle; Translations: [Sprain of unspecified ligament of right ankle, initial encounter] Onset: 10-18-2007 Episodic Unclassified (1 source) Problem Results Test Name Value Interpretation Reference Range Facil ity Vital Signs Date Time Vital Sign Value Performing Clinician Facility 04-28-2023 09:12-0400 Body temperature 97.59 [degF] Stan Rodgers BARN HAND.SAND CONTROL WORKER Work Phone: [facility] 04-28-2023 09:12-0400 Body weight 79.74 kg Stan Rodgers BARN HAND.SAND CONTROL WORKER Work Phone: [facility] 04-28-2023 09:12-0400 Diastolic blood pressure 64 mm[Hg] Stan Rodgers BARN HAND.SAND CONTROL WORKER Work Phone: [facility] 04-28-2023 09:12-0400 Heart rate 91 /min Stan Rodgers BARN HAND.SAND CONTROL WORKER Work Phone: [facility] 04-28-2023 09:12-0400 Respiratory rate 18 /min Stan Rodgers BARN HAND.SAND CONTROL WORKER Work Phone: [facility] 04-28-2023 09:12-0400 SaO2% (BldA) [Mass fraction] 98 % Stan Rodgers BARN HAND.SAND CONTROL WORKER Work Phone: [facility] 04-28-2023 09:12-0400 Systolic blood pressure 108 mm[Hg] Stan Rodgers BARN HAND.SAND CONTROL WORKER Work Phone: [facility] 12-24-2022 11:22-0400 Body temperature 97.39 [degF] Misha Chambers BARN HAND.SAND CONTROL WORKER Work Phone: [facility] 12-24-2022 11:22-0400 Body weight 81.65 kg Misha Chambers BARN HAND.SAND CONTROL WORKER Work Phone: [facility] 12-24-2022 11:22-0400 Diastolic blood pressure 80 mm[Hg] Misha Reyes BARN HAND.SAND CONTROL WORKER Work Phone: [facility] 12-24-2022 11:22-0400 Heart rate 75 /min Misha Chambers BARN HAND.SAND CONTROL WORKER Work Phone: [facility] 12-24-2022 11:22-0400 Respiratory rate 21 /min Misha Reyes BARN HAND.SAND CONTROL WORKER Work Phone: [facility] 12-24-2022 11:22-0400 SaO2% (BldA) [Mass fraction] 100 % Misha Chambers BARN HAND.SAND CONTROL WORKER Work Phone: [facility] 12-24-2022 11:22-0400 Systolic blood pressure 102 mm[Hg] Misha Chambers BARN HAND.SAND CONTROL WORKER Work Phone: [facility] 11-28-2022 08:43-0400 Body height 154.9 cm Uriel Orozco MD Work Phone: [facility] 11-28-2022 08:43-0400 Body weight 63.5 kg Uriel Orozco MD Work Phone: [facility] 11-28-2022 08:43-0400 Diastolic blood pressure 87 mm[Hg] Uriel Orozco MD Work Phone: [facility] 11-28-2022 08:43-0400 Heart rate 68 /min Uriel Orozco MD Work Phone: [facility] 11-28-2022 08:43-0400 SaO2% (BldA) [Mass fraction] 100 % Uriel Orozco MD Work Phone: [facility] 11-28-2022 08:43-0400 Systolic blood pressure 120 mm[Hg] Uriel Orozco MD Work Phone: [facility] 11-19-2022 15:30-0400 Body height 154.9 cm Yesica Bean MD Work Phone: [facility] 11-19-2022 15:30-0400 Body weight 80.74 kg Yesica Bean MD Work Phone: [facility] 11-19-2022 15:30-0400 Diastolic blood pressure 75 mm[Hg] Yesica Bean MD Work Phone: [facility] 11-19-2022 15:30-0400 Heart rate 79 /min Yesica Bean MD Work Phone: [facility] 11-19-2022 15:30-0400 Systolic blood pressure 109 mm[Hg] Yesica Bean MD Work Phone: [facility] 09-25-2022 09:57-0500 Body temperature 98.71 [degF] Precious Athy PA-C Work Phone: [facility] 09-25-2022 09:57-0500 Diastolic blood pressure 84 mm[Hg] Precious Athy PA-C Work Phone: [facility] 09-25-2022 09:57-0500 Heart rate 74 /min Precious Athy PA-C Work Phone: [facility] 09-25-2022 09:57-0500 Respiratory rate 18 /min Precious Athy PA-C Work Phone: [facility] 09-25-2022 09:57-0500 SaO2% (BldA) [Mass fraction] 99 % Precious Athy PA-C Work Phone: [facility] 09-25-2022 09:57-0500 Systolic blood pressure 136 mm[Hg] Precious Athy PA-C Work Phone: [facility] 05-06-2022 10:26-0400 Body temperature 97.59 [degF] Steph Shaw BARN HAND.SAND CONTROL WORKER Work Phone: [facility] 05-06-2022 10:26-0400 Body weight 80.02 kg Steph Shaw BARN HAND.SAND CONTROL WORKER Work Phone: [facility] 05-06-2022 10:26-0400 Diastolic blood pressure 76 mm[Hg] Steph Shaw BARN HAND.SAND CONTROL WORKER Work Phone: [facility] 05-06-2022 10:26-0400 Heart rate 76 /min Steph Shaw BARN HAND.SAND CONTROL WORKER Work Phone: [facility] 05-06-2022 10:26-0400 Respiratory rate 16 /min Steph Shaw BARN HAND.SAND CONTROL WORKER Work Phone: [facility] 05-06-2022 10:26-0400 SaO2% (BldA) [Mass fraction] 98 % Steph Shaw BARN HAND.SAND CONTROL WORKER Work Phone: [facility] 05-06-2022 10:26-0400 Systolic blood pressure 128 mm[Hg] Steph Shaw BARN HAND.SAND CONTROL WORKER Work Phone: [facility] 02-27-2022 08:51-0400 Heart rate 64 /min Jimena Hackberry BARN HAND.SAND CONTROL WORKER Work Phone: [facility] 02-27-2022 08:51-0400 Respiratory rate 16 /min Jimena Dion BARN HAND.SAND CONTROL WORKER Work Phone: [facility] 02-27-2022 08:51-0400 SaO2% (BldA) [Mass fraction] 99 % Jimena Hackberry BARN HAND.SAND CONTROL WORKER Work Phone: [facility] 01-07-2022 10:25-0400 Body temperature 97.39 [degF] Lori Praisler-Wood BARN HAND.SAND CONTROL WORKER Work Phone: [facility] 01-07-2022 10:25-0400 Body weight 81.1 kg Lori Praisler-Wood BARN HAND.SAND CONTROL WORKER Work Phone: [facility] 01-07-2022 10:25-0400 Diastolic blood pressure 72 mm[Hg] Lori Praisler-Wood BARN HAND.SAND CONTROL WORKER Work Phone: [facility] 01-07-2022 10:25-0400 Heart rate 93 /min Lori Praisler-Wood BARN HAND.SAND CONTROL WORKER Work Phone: [facility] 01-07-2022 10:25-0400 Respiratory rate 20 /min Lori MckeonKyung BARN HAND.SAND CONTROL WORKER Work Phone: [facility] 01-07-2022 10:25-0400 SaO2% (BldA) [Mass fraction] 96 % Lori Mckeongloria-Alex BARN HAND.SAND CONTROL WORKER Work Phone: [facility] 01-07-2022 10:25-0400 Systolic blood pressure 114 mm[Hg] Lori MckeonKyung BARN HAND.SAND CONTROL WORKER Work Phone: [facility] 01-01-2022 13:00-0400 Body temperature 97.3 [degF] Neur Infusion Work Phone: [facility] 01-01-2022 13:00-0400 Diastolic blood pressure 78 mm[Hg] Neur Infusion Work Phone: [facility] 01-01-2022 13:00-0400 Heart rate 70 /min Ne[facility] Infusion Work Phone: [facility] 01-01-2022 13:00-0400 Systolic blood pressure 109 mm[Hg] Ne[facility] Infusion Work Phone: [facility] 11-11-2021 14:38-0400 Body height 154.9 cm Austin Go Jr., MD Work Phone: [facility] 11-11-2021 14:38-0400 Body weight 81.19 kg Austin Go Jr., MD Work Phone: [facility] 11-11-2021 14:38-0400 Respiratory rate 16 /min Austin Go Jr., MD Work Phone: [facility] 06-11-2017 15:25-0400 BMI (Body Mass Index) 27.21 kg/m2 Ludwig MENDEZ [facility] Work Phone: 06-11-2017 15:25-0400 Body Temperature 97.4 [degF] Ludwig MENDEZ [facility] Work Phone: 06-11-2017 15:25-0400 BP Diastolic 74 mm[Hg] Ludwig MENDEZ [facility] Work Phone: 06-11-2017 15:25-0400 BP Systolic 106 mm[Hg] Ludwig MENDEZ [facility] Work Phone: 06-11-2017 15:25-0400 Height 154.94 cm Ludwig MENDEZ [facility] Work Phone: 06-11-2017 15:25-0400 Pulse (Heart Rate) 82 /min Ludwig MENDEZ [facility] Work Phone: 06-11-2017 15:25-0400 Respiratory Rate 14 /min Ludwig MENDEZ [facility] Work Phone: 06-11-2017 15:25-0400 Weight 65.32 kg Ludwig MENDEZ [facility] Work Phone: NEGATED: Highlighted [id number] 14:09-0400 BMI (Body Mass Index) 31.16 kg/m2 Lauren Sharma [facility] Work Phone: NEGATED: Highlighted [id number] 14:09-0400 Body weight 72.12 kg Lauren Sharma [facility] Work Phone: NEGATED: Highlighted [id number] 14:09-0400 Body weight 72 kg Lauren Sharma CORPORATE SECURITIES RESEARCH ANALYST [facility] Work Phone: NEGATED: Highlighted [id number] 14:09-0400 BP Diastolic 74 mm[Hg] Lauren Sharma [facility] Work Phone: NEGATED: Highlighted [id number] 14:09-0400 BP Systolic 107 mm[Hg] Lauren Sharma CORPORATE SECURITIES RESEARCH ANALYST [facility] Work Phone: NEGATED: Highlighted [id number] 14:09-0400 Height 152.4 cm Lauren Sharma CORPORATE SECURITIES RESEARCH ANALYST [facility] Work Phone: NEGATED: Highlighted [id number] 14:09-0400 Height 152 cm Lauren Sharma CORPORATE SECURITIES RESEARCH ANALYST [facility] Work Phone: NEGATED: Highlighted [id number] 14:09-0400 Pulse (Heart Rate) 70 /min Lauren Sharma LPN [facility] Work Phone: Encounters Encounter Date Encounter Type Care Provider Facility Start: 08-24-2023 End: 08-24-2023 ambulatory LORI CORRAL Facility:[facility] Start: 04-28-2023 End: 04-28-2023 ambulatory WHIT PURI Facility:[facility] Start: 04-28-2023 End: 04-28-2023 Office outpatient visit 15 minutes Stan Rodgers APRN.SAND CONTROL WORKER Work Phone: [facility] Procedures Date Procedure Procedure Detail Performing Clinician Start: 04-28-2023 STREP A MOLECULAR (POC) [facility] Provider Start: 04-10-2023 Mri any jt lower ext rem w/o contrast matrl Whit Puri Work Phone: Start: 02-17-2023 Radiologic examinati on tibia & fibula 2 views Whit Puri Work Phone: Start: 02-11-2023 Radex ankle complete minimum 3 views Whit Puri Work Phone: Start: 02-27-2022 Radex spine cervical 6 or more views Jimena Ashley BARN HAND.SAND CONTROL WORKER Work Phone: Start: 03-08-2019 End: 03-08-2019 Blood pressure within normal parameters - no follow-up required Alberto Matamoros MD Work Phone: Start: 03-08-2019 End: 03-08-2019 BMI documented as above normal parameters - follow-up documented Alberto Matamoros MD Work Phone: Start: 03-08-2019 End: 03-08-2019 Documentation of current medications Alberto Matamoros MD Work Phone: Start: 03-08-2019 End: 03-08-2019 Pain assessment documented as positive - follow-up documented Alberto Matamoros MD Work Phone: Start: 03-08-2019 End: 03-08-2019 Tobacco non-user Alberto Matamoros MD Work Phone: Start: 03-15-2018 Cardiovascular stres s testing DAYAN FISH BARN HAND-SAND CONTROL WORKER Start: 01-05-2018 Colonoscopy Austin Banerjee Jr., MD Work Phone: Start: 12-25-2017 Mammography Austin Banerjee Jr., MD Work Phone: Abdominal hysterectomy Abdominal hysterectomy DAYAN FISH BARN HAND-SAND CONTROL WORKER Cardiac catheterization ROXA NNE FISH BARN HAND-SAND CONTROL WORKER section DAYAN FIS H BARN HAND-SAND CONTROL WORKER Colonoscopy DAYAN FISH BARN HAND-SAND CONTROL WORKER Hysterectomy DAYAN FISH BARN HAND-SAND CONTROL WORKER Ligation of fallopia n tube DAYAN FISH BARN HAND-SAND CONTROL WORKER NEGATED: Highlighted rowStart: 03-08-2019 End: 03-08-2019 Documentation of current medications Lauren Sharma LPN Plan of Treatment Date Care Activity Detail Author Start: 12-26-2025 DIABETES SCREEN DIABETES SCREEN [facility] Start: 12-26-2025 Diabetes Screening Diabetes Screening [facility] Start: 11-14-2025 Urine microalbumin profile [facility] Start: 12-02-2024 DIABETES SCREEN DIABETES SCREEN [facility] Start: 04-28-2024 BP Controlled (<130/80) BP Controlled (<130/80) [facility] Start: 04-04-2024 DIABETES SCREEN DIABETES SCREEN [facility] Start: 12-27-2023 BP CONTROLLED (<130/80) BP CONTROLLED (<130/80) [facility] Start: 05-06-2023 BP CONTROLLED (<130/80) BP CONTROLLED (<130/80) [facility] Start: 04-10-2023 Covid-19 Vaccine ( season) Covid-19 Vaccine () [facility] Start: 04-10-2023 Influenza vaccination [facility] Start: 01-07-2023 BP CONTROLLED (<130/80) BP CONTROLLED (<130/80) [facility] Start: 11-28-2022 End: 01-28-2023 lamoTRIgine [Mass/volume] in Serum or Plasma LAMOTRIGINE Lab Routine Seizure (HCC) Expected: 11/28/2022, Expires: 01/28/2023 [facility] Work Phone: Immunizations Immunization Date Immunization Notes Care Provider Fa cornelio 12-24-2020 COVID-19 vaccine, ag e 12+ yr (PFIZER-BIONTECH - PURPLE TOP) Austin Go Jr., MD Work Phone: [facility] 12-03-2020 COVID-19 vaccine, ag e 12+ yr (PFIZER-BIONTECH - PURPLE TOP) Austin Go Jr., MD Work Phone: [facility] 11-15-2015 tetanus toxoid, redu bin diphtheria toxoid, and acellular pertussis vaccine, adsorbed Austin Go Jr., MD Work Phone: [facility] Work Phone: 07-26-2006 diphtheria and tetan us toxoids, adsorbed for pediatric use Austin Go Jr., MD Work Phone: [facility] Work Phone: Payers Date Payer Category Payer Medicaid [id number] 2006 Medicaid [employer] [id number] 2006-Present [phone] [address] [place] [address] Medicaid [id number] 2006 Medicaid [id number] 2006 Medicaid [id number] 1974 Unknown [id number] 1974 Unknown [id number] Social History Date Type Detail Facility Start: 07-12-2019 Tobacco smoking stat [facility] Never smoked tobacco [facility] Start: 11-11-2021 End: 02-11-2023 Alcohol intake Current drinker of alcohol (finding) [facility] Start: 04-02-2021 History SDOH Alcohol Frequency 5 [facility] Start: 04-02-2021 History SDOH Alcohol Std Drinks 1 [facility] Start: 11-29-2010 History SDOH Alcohol Comment rare [facility] Start: 04-02-2021 History SDOH Social Connections Membership 2 [facility] Start: 04-02-2021 History SDOH Social Connections Living 98 [facility] Start: 04-02-2021 History SDOH Physica l Activity DPW 7 [facility] Start: 04-02-2021 History SDOH Physica l Activity MPS 15 [facility] Start: 04-02-2021 Education 12 [facility] Start: 1975 Sex Assigned At Female C [facility] Start: 11-01-2021 End: 12-25-2022 Exposure to SARS-CoV-2 (event) Not sure [facility] Start: 12-28-2021 End: 01-07-2022 Exposure to SARS-CoV-2 (event) Yes [facility] Work Phone: Start: 04-02-2021 End: 12-25-2022 History of Social function [facility] Start: 04-02-2021 End: 12-25-2022 Social connection and isolation panel [facility] Do you belong to any clubs or organizations such as sabianist groups, unions, fraternal or athletic groups, or school groups? No [facility] Are you now , , , , never or living with a partner? Refused [facility] How often to you hav e a drink containing alcohol? 4 or more times a week [facility] How many standard drinks containing alcohol do you have on a typical day? 1 or 2 [facility] How often do you hav e 6 or more drinks on 1 occasion? Never [facility] How hard is it for y ou to pay for the very basics like food, housing, medical care, and heating Not hard at all [facility] Do you feel stress - tense, restless, nervous, or anxious, or unable to sleep at night because your mind is troubled all the time - these days [OSQ] Very much [facility] (I/We) worried ashleigh er (my/our) food would run out before (I/we) got money to buy more. Never true [facility] Start: 06-17-2021 Gender identity Identifies as female gender (finding) [facility] NEGATED: Highlighted rowStart: 03-08-2019 End: 03-08-2019 Alcohol use Alcohol use [facility] Work Phone: NEGATED: Highlighted rowStart: 03-08-2019 End: 03-08-2019 Details of drug misuse behavior Details of drug misuse behavior [facility] Work Phone: NEGATED: Highlighted rowStart: 03-08-2019 End: 03-08-2019 Employment detail Employment detail [facility] Work Phone: NEGATED: Highlighted rowStart: 03-08-2019 End: 03-08-2019 How many days of moderate to strenuous exercise, like a brisk walk, did you do in the last 7 days? How many days of moderate to strenuous exercise, like a brisk walk, did you do in the last 7 days? [facility] Work Phone: NEGATED: Highlighted rowStart: 03-08-2019 End: 03-08-2019 Assertion Never smoker [facility] Work Phone: Medical Equipment Procedure Code Equipment Code Equipment Origin al Text Equipment Identifier Dates Desdemona Juggerkno t 1 Short Suture Soft Rigid Drill Bit 1.45mm [id number] Start: 07-25-2021 Unknown Unknown 05/28/18 Unknown Unknown FDA Start: 05-28-2018 FDA Start: 05-28-2018 FDA Start: 05-28-2018 FDA Start: 05-28-2018 Unknown Unknown 05/28/18 Unknown Unknown FDA Start: 05-28-2018 FDA Start: 05-28-2018 FDA Start: 05-28-2018 FDA Start: 05-28-2018 Clinical Notes 02-01-2013 to 08-24-2023 Stan Rodgers APRN.SAND CONTROL WORKER - 04/28/2023 9:[address] - 04/10/2023 8:00 AM EDT Note Date & Type Note Facility 08-24-2023 Note HNO ID: [id number] Author: WILFRID BUSTAMANTE RT(R) Service: Radiology Author Type: Technologist Type: Progress Notes Filed: 08/24/2023 15:48 Note Text: Radiology Service Progress Note PATIENT NAME: Sri Chacon DATE OF SERVICE: August 24, 2023 TIME: 3:34 PM PATIENT IDENTITY VERIFICATION COMPLETED USING TWO (2) IDENTIFIERS: Name and Date of confirmed by patient verbally. FALL SCREENING: Has the patient had 2 falls in the last year or 1 fall with injury or currently using an Ambulatory Assistive Device (Walker, Cane, Wheelchair, Crutches, etc.)? No PATIENT GENDER DATA: Female. status: : No status: NO. PATIENT RELEVANT IMPLANT DATA REVIEWED: Yes RADIOLOGY DEPARTMENT: General X-ray: Exam(s) Completed: Spine X-Ray(s): Lumbar AP / LAT / L5-S1 PERIPHERAL IV DATA: Not applicable SIGNED BY: RT Jeremy(R) August 24, 2023 3:34 PM [facility] 08-24-2023 Note HNO ID: [id number] Author: LORI CORRAL APRN.SAND CONTROL WORKER Service: ? Author Type: Nurse Practitioner Type: Progress Notes Filed: 08/24/2023 16:31 Note Text: Subjective HPI Sri Chacon is a 48 year old female who presents with bilateral low back pain radiates to bilateral legs for the past month. Rates pain 8/10. Denies injury. Has taken tylenol and advil without relief. Tried heating pad. Works long hours on her feet 02/03 Has had some numbness, tingling in bilateral feet. Review of Systems Constitutional: Negative for chills and fever. Respiratory: Negative. Cardiovascular: Negative. Musculoskeletal: Positive for back pain. Negative for falls and joint pain. Skin: Positive for itching and rash. Neurological: Positive for tingling and sensory change. Negative for speech change, focal weakness and weakness. BP 125/82 Pulse 75 Temp 36.1 ?C (97 ?F) Resp 18 Wt 77.7 kg (171 lb 3.2 oz) SpO2 98% BMI 32.35 kg/m? PAST MEDICAL HISTORY Diagnosis Date Calculus of kidney 07/03/2006 Calculus of ureter 03/16/2008 Convulsions (HCC) 02/01/2013 Depression Essential hypertension 01/01/2018 Gallstone 12/25/2017 Hydronephrosis 03/16/2008 Hypothyroidism IBS (irritable bowel syndrome) Lactose intolerance in adult 01/21/2018 Migraine 02/01/2013 Nonrheumatic mitral (valve) prolapse 06/15/2017 Seizure disorder ([facility]) last 04/2021 Traumatic brain injury ([facility]) Unspecified asthma(493.90) Unspecified ectopic without intrauterine Ectopic PAST SURGICAL HISTORY Procedure Laterality Date CYSTOSCOPY,URETEROSCOPY,LITHOTRI PSY DILATION AND CURETTAGE DXAND/THER NONOBSTETRIC 1995 Dilation AND curettage PAST SURGICAL HISTORY OF 1999 C section PAST SURGICAL HISTORY OF 2009 heart cath PAST SURGICAL HISTORY OF 1991 right knee surgery with muscle and scar tissue removal post fx PAST SURGICAL HISTORY OF Right hand marley Dr. Nguyen PAST SURGICAL HISTORY OF Right 2020 right thumb CMC arthroplasty TOTAL ABDOMINAL HYSTERECT W/WO RMVL TUBE OVARY 01/2005 Hysterectomy, ALLY ALLERGIES Asa [Salicylates], Aspirin, Benadryl [Diphenhydramine Hcl], Codeine, Fish Containing Products, Morphine, Penicillin G, Phenergan [Promethazine Hcl], and Shellfish Derived MEDICATIONS zonisamide (ZONEGRAN) 100 mg capsule Take 2 capsules by mouth every evening. LAMICTAL XR 300 mg 24 hr tablet Take 1 tablet by mouth every morning. LAMICTAL XR 200 mg 24 hr tablet Take 2 tablets by mouth every evening. cholecalciferol, Vitamin D3, (VITAMIN D3) 1,250 mcg (50,000 unit) cap capsule Take 1 capsule by mouth one time a week for 12 doses. DO NOT REFILL atogepant (QULIPTA) 60 mg tablet Take 1 tablet (60 mg) by mouth once daily. lidocaine (XYLOCAINE) 5 % ointment Apply to affected area three times daily. levothyroxine (SYNTHROID) 75 mcg tablet Take 1 tablet by mouth once daily. Take on empty stomach. For Thyroid FAMILY HISTORY Problem Relation Age of Onset Arthritis Mother Cataract Mother other (pacemaker, defibrillator) Mother other (mitral valve) Father Cataract Maternal Grandmother Social History Tobacco Use Smoking status: Never Smokeless tobacco: Never Vaping Use Vaping Use: Never used Substance Use Topics Alcohol use: Yes Comment: rare Drug use: No Objective Physical Exam Vitals and nursing note reviewed. Constitutional: Appearance: Normal appearance. She is obese. Cardiovascular: Rate and Rhythm: Normal rate and regular rhythm. Heart sounds: Normal heart sounds. Pulmonary: Effort: Pulmonary effort is normal. No respiratory distress. Breath sounds: Normal breath sounds. No wheezing or rales. Musculoskeletal: Lumbar back: Tenderness present. No swelling, edema, deformity or bony tenderness. Decreased range of motion. Positive right straight leg raise test and positive left straight leg raise test. Back: Skin: General: Skin is warm and dry. Findings: Erythema and rash present. Neurological: Mental Status: She is alert. ASSESSMENT/PLAN: 1. Bilateral sciatica - ICD9: 724.3, ICD10: M54.31, M54.32 (primary diagnosis) - XR LUMBAR GENERAL 3V AP/LAT/L5-S1 FINDINGS: There are five onb-fhs-umsnqed lumbar vertebrae. No subluxation seen. Sclerosis along the superior endplate of the L1 vertebral body, seen on lateral view. The disc spaces are well preserved. There is no significant osteophyte formation. IMPRESSION: Sclerosis along the superior endplate of L1 vertebral body. Consider follow-up. Poolroom/Poolhall Manager: FLORENCE Transcribe Date/Time: Aug 24 2023 3:50P Dictated by : FILEMON BURT MD 2. Acute bilateral low back pain with bilateral sciatica - ICD9: 724.2, 724.3, ICD10: M54.42, M54.41 - XR LUMBAR GENERAL 3V AP/LAT/L5-S1 - PREDNISONE 10 MG TABLET - [facility] - CYCLOBENZAPRINE 10 MG TABLET- caution advised due to drowsiness associated with this medication. - patient adv (more content not included)... [facility] 05-18-2023 Note HNO ID: [id number] Author: Ronnie Davison, PT Service: ? Author Type: Physical Therapist Type: Progress Notes Filed: 05/18/2023 3:23 PM Note Text: 05/18/2023 [facility]IL[facility] SPORTS THERAPY PHYSICAL THERAPY DISCONTINUANCE OF CARE Plan of Care Period: Start of Care Date: 03/13/23 Last Visit Date: 03/13/2023 Therapy Program: Patient did not return for follow up care as planned. Please refer to last visit note for interventions provided for this episode of care. Assessment: Unable to formally assess goal achievement. Reason for Discontinuation of Care: Patient has not returned to therapy or scheduled additional follow-up appointments. Ronnie Davison, PT [facility] 04-28-2023 Note HNO ID: [id number] Author: Stan Rodgers APRN.SAND CONTROL WORKER Service: ? Author Type: Nurse Practitioner Type: Progress Notes Filed: 04/28/2023 9:46 AM Note Text: Subjective HPI Nontoxic-appearing female presents to urgent care with chief complaint of upper respiratory tract like infection. Duration of symptoms 3 days. Associated symptoms sore throat, nasal congestion, nasal discharge and nonproductive cough. Patient denies the use of any qkkz-woo-fizqtxr medications or home remedies for symptom management. Patient states recent sick contacts with similar signs and symptoms. Patient denies any productive cough, fever, chest pain, shortness of breath, pleuritic pain, rash, abdominal pain, nausea, vomiting or change in bowel or bladder habit. Past medical history prescription medication use allergies reviewed. .Patient presents with: Sore Throat: ST, ADDISON and sinus x 3 days PAST MEDICAL HISTORY Diagnosis Date Calculus of kidney 07/03/2006 Calculus of ureter 03/16/2008 Convulsions (HCC) 02/01/2013 Depression Essential hypertension 01/01/2018 Gallstone 12/25/2017 Hydronephrosis 03/16/2008 Hypothyroidism IBS (irritable bowel syndrome) Lactose intolerance in adult 01/21/2018 Migraine 02/01/2013 Nonrheumatic mitral (valve) prolapse 06/15/2017 Seizure disorder (HCC) last 04/2021 Traumatic brain injury (HCC) Unspecified asthma(493.90) Unspecified ectopic without intrauterine Ectopic PAST SURGICAL HISTORY Procedure Laterality Date CYSTOSCOPY,URETEROSCOPY,LITHOTRI PSY DILATION AND CURETTAGE DXAND/THER NONOBSTETRIC 1995 Dilation AND curettage PAST SURGICAL HISTORY OF 1999 C section PAST SURGICAL HISTORY OF 2009 heart cath PAST SURGICAL HISTORY OF 1991 right knee surgery with muscle and scar tissue removal post fx PAST SURGICAL HISTORY OF Right hand marley Dr. Nguyen PAST SURGICAL HISTORY OF Right 2020 right thumb CMC arthroplasty TOTAL ABDOMINAL HYSTERECT W/WO RMVL TUBE OVARY 01/2005 Hysterectomy, ALLY ALLERGIES Asa [Salicylates], Aspirin, Benadryl [Diphenhydramine Hcl], Codeine, Fish Containing Products, Morphine, Penicillin G, Phenergan [Promethazine Hcl], and Shellfish Derived MEDICATIONS zonisamide (ZONEGRAN) 100 mg capsule Take 2 capsules by mouth every evening. LAMICTAL XR 300 mg 24 hr tablet Take 1 tablet by mouth every morning. LAMICTAL XR 200 mg 24 hr tablet Take 2 tablets by mouth every evening. atogepant (QULIPTA) 60 mg tablet Take 1 tablet (60 mg) by mouth once daily. levothyroxine (SYNTHROID) 75 mcg tablet Take 1 tablet by mouth once daily. Take on empty stomach. For Thyroid cholecalciferol, Vitamin D3, (VITAMIN D3) 1,250 mcg (50,000 unit) cap capsule Take 1 capsule by mouth one time a week for 12 doses. DO NOT REFILL lidocaine (XYLOCAINE) 5 % ointment Apply to affected area three times daily. FAMILY HISTORY Problem Relation Age of Onset Arthritis Mother Cataract Mother other (pacemaker, defibrillator) Mother other (mitral valve) Father Cataract Maternal Grandmother Social History Tobacco Use Smoking status: Never Smokeless tobacco: Never Vaping Use Vaping Use: Never used Substance Use Topics Alcohol use: Yes Comment: rare Drug use: No BP 108/64 Pulse 91 Temp 36.4 ?C (97.6 ?F) (Tympanic) Resp 18 Wt 79.7 kg (175 lb 12.8 oz) SpO2 98% BMI 33.22 kg/m? Review of Systems Constitutional: Positive for malaise/fatigue. Negative for chills and fever. HENT: Positive for congestion and ear pain. Negative for ear discharge, sinus pain and sore throat. Eyes: Negative for blurred vision, pain, discharge and redness. Respiratory: Positive for cough. Negative for hemoptysis, sputum production, shortness of breath, wheezing and stridor. Cardiovascular: Negative for chest pain. Gastrointestinal: Negative for abdominal pain, diarrhea, nausea and vomiting. Musculoskeletal: Positive for myalgias. Skin: Negative for itching and rash. Neurological: Positive for headaches. Negative for dizziness. Objective Physical Exam Constitutional: General: She is not in acute distress. Appearance: She is not diaphoretic. HENT: Head: Normocephalic. Jaw: No trismus, tenderness, swelling or pain on movement. Right Ear: Tympanic membrane, ear canal and external ear normal. Left Ear: Tympanic membrane, ear canal and external ear normal. Nose: Congestion present. Mouth/Throat: Mouth: Mucous membranes are moist. Pharynx: Oropharynx is clear. Uvula midline. No pharyngeal swelling, oropharyngeal exudate, posterior oropharyngeal erythema or uvula swelling. Eyes: Conjunctiva/sclera: Conjunctivae normal. Pupils: Pupils are equal, round, and reactive to light. Cardiovascular: Rate and Rhythm: Normal rate and regular rhythm. Heart sounds: Normal heart sounds. Pulmonary: Effort: Pulmonary effort is normal. No tachypnea, accessory muscle usage or respiratory distress. B (more content not included)... [facility] 04-28-2023 History of Present illness Narrative Subjective HPI Nontoxic-appearing female presents to urgent care with chief complaint of upper respiratory tract like infection. Duration of symptoms 3 days. Associated symptoms sore throat, nasal congestion, nasal discharge and nonproductive cough. Patient denies the use of any yyby-nml-coqjkmm medications or home remedies for symptom management. Patient states recent sick contacts with similar signs and symptoms. Patient denies any productive cough, fever, chest pain, shortness of breath, pleuritic pain, rash, abdominal pain, nausea, vomiting or change in bowel or bladder habit. Past medical history prescription medication use allergies reviewed. .Patient presents with: Sore Throat: ST, ADDISON and sinus x 3 days PAST MEDICAL HISTORY Diagnosis Date Calculus of kidney 07/03/2006 Calculus of ureter 03/16/2008 Convulsions (HCC) 02/01/2013 Depression Essential hypertension 01/01/2018 Gallstone 12/25/2017 Hydronephrosis 03/16/2008 Hypothyroidism IBS (irritable bowel syndrome) Lactose intolerance in adult 01/21/2018 Migraine 02/01/2013 Nonrheumatic mitral (valve) prolapse 06/15/2017 Seizure disorder (HCC) last 04/2021 Traumatic brain injury (HCC) Unspecified asthma(493.90) Unspecified ectopic without intrauterine Ectopic PAST SURGICAL HISTORY Procedure Laterality Date CYSTOSCOPY,URETEROSCOPY,LITHOTRI PSY DILATION & CURETTAGE DX&/THER NONOBSTETRIC 1995 Dilation & curettage PAST SURGICAL HISTORY OF 1999 C section PAST SURGICAL HISTORY OF 2009 heart cath PAST SURGICAL HISTORY OF 1991 right knee surgery with muscle and scar tissue removal post fx PAST SURGICAL HISTORY OF Right hand marley Dr. Nguyen PAST SURGICAL HISTORY OF Right 2020 right thumb CMC arthroplasty TOTAL ABDOMINAL HYSTERECT W/WO RMVL TUBE OVARY 01/2005 Hysterectomy, ALLY ALLERGIES Asa [Salicylates], Aspirin, Benadryl [Diphenhydramine Hcl], Codeine, Fish Containing Products, Morphine, Penicillin G, Phenergan [Promethazine Hcl], and Shellfish Derived MEDICATIONS zonisamide (ZONEGRAN) 100 mg capsule Take 2 capsules by mouth every evening. LAMICTAL XR 300 mg 24 hr tablet Take 1 tablet by mouth every morning. LAMICTAL XR 200 mg 24 hr tablet Take 2 tablets by mouth every evening. atogepant (QULIPTA) 60 mg tablet Take 1 tablet (60 mg) by mouth once daily. levothyroxine (SYNTHROID) 75 mcg tablet Take 1 tablet by mouth once daily. Take on empty stomach. For Thyroid cholecalciferol, Vitamin D3, (VITAMIN D3) 1,250 mcg (50,000 unit) cap capsule Take 1 capsule by mouth one time a week for 12 doses. DO NOT REFILL lidocaine (XYLOCAINE) 5 % ointment Apply to affected area three times daily. FAMILY HISTORY Problem Relation Age of Onset Arthritis Mother Cataract Mother other (pacemaker, defibrillator) Mother other (mitral valve) Father Cataract Maternal Grandmother Social History Tobacco Use Smoking status: Never Smokeless tobacco: Never Vaping Use Vaping Use: Never used Substance Use Topics Alcohol use: Yes Comment: rare Drug use: No BP 108/64 Pulse 91 Temp 36.4 C (97.6 F) (Tympanic) Resp 18 Wt 79.7 kg (175 lb 12.8 oz) SpO2 98% BMI 33.22 kg/m Review of Systems Constitutional: Positive for malaise/fatigue. Negative for chills and fever. HENT: Positive for congestion and ear pain. Negative for ear discharge, sinus pain and sore throat. Eyes: Negative for blurred vision, pain, discharge and redness. Respiratory: Positive for cough. Negative for hemoptysis, sputum production, shortness of breath, wheezing and stridor. Cardiovascular: Negative for chest pain. Gastrointestinal: Negative for abdominal pain, diarrhea, nausea and vomiting. Musculoskeletal: Positive for myalgias. Skin: Negative for itching and rash. Neurological: Positive for headaches. Negative for dizziness. Objective Physical Exam Constitutional: General: She is not in acute distress. Appearance: She is not diaphoretic. HENT: Head: Normocephalic. Jaw: No trismus, tenderness, swelling or pain on movement. Right Ear: Tympanic membrane, ear canal and external ear normal. Left Ear: Tympanic membrane, ear canal and external ear normal. Nose: Congestion present. Mouth/Throat: Mouth: Mucous membranes are moist. Pharynx: Oropharynx is clear. Uvula midline. No pharyngeal swelling, oropharyngeal exudate, posterior oropharyngeal erythema or uvula swelling. Eyes: Conjunctiva/sclera: Conjunctivae normal. Pupils: Pupils are equal, round, and reactive to light. Cardiovascular: Rate and Rhythm: Normal rate and regular rhythm. Heart sounds: Normal heart sounds. Pulmonary: Effort: Pulmonary effort is normal. No tachypnea, accessory muscle usage or respiratory distress. Breath sounds: Normal breath sounds. No stridor. No wheezing, rhonchi or rales. Abdominal: General: There is no distension. Palpations: Abdomen is soft. Tenderness: There is no abdominal tenderness. There is no guarding or rebound. Musculoskeletal: Cervical back: Normal range of motion and neck supple. No edema, erythema, rigidity or tenderness. No pain with movement. Normal range of motion. Lymphadenopathy: Cervical: No cervical adenopathy. Skin: General: Skin is warm and dry. Neurological: Mental Status: She is alert and oriented to person, place, and time. ASSESSMENT/PLAN: 1. Sore throat - ICD9: 462, ICD10: J02.9 (primary diagnosis) 2. URI with cough and congestion - ICD9: 465.9, ICD10: J06.9 - Discussed viral etiology and rationale for treatment. - Rapid strep negative in office today - Symptomatic treatment with prn analgesia - Supportive care with fluids and rest Home COVID test negative. Patient will follow up with primary care provider as needed. Patient was instructed to immediately proceed to emergency room for any new, worsening, or symptoms lasting longer than anticipated. The patient's clinical presentation is otherwise unremarkable at this time. Based on exam and clinical finding, the patient is stable for discharge. Plan of care was discussed with patient. Patient verbalizes understanding and agrees to plan of care. This note was generated using [employer] software. It may contain errors in wording, punctuation, or spelling. Stan Rodgers APRN.CNP documented in this encounter [facility] 04-10-2023 Note HNO ID: [id number] Author: Carla Villegas CT Service: ? Author Type: Technologist Type: Progress Notes Filed: 04/10/2023 8:06 AM Note Text: Radiology Service Progress Note PATIENT NAME: Sri Chacon DATE OF SERVICE: April 10, 2023 TIME: 8:05 AM PATIENT IDENTITY VERIFICATION COMPLETED USING TWO (2) IDENTIFIERS: Name and Date of confirmed by patient verbally and Name and Date of confirmed by identification band. FALL SCREENING: Has the patient had 2 falls in the last year or 1 fall with injury or currently using an Ambulatory Assistive Device (Walker, Cane, Wheelchair, Crutches, etc.)? Yes, Patient High Risk for Falls What interventions were put in place to prevent falls during this visit? Yellow Falls Risk Wristband Applied and Increased Observations by Caregivers PATIENT GENDER DATA: Female. status: : No status: NO. PATIENT RELEVANT IMPLANT DATA REVIEWED: Yes RADIOLOGY DEPARTMENT: MR; Exam(s) Completed: Lower MSK: Ankle/Hind Foot, right PERIPHERAL IV DATA: Not applicable SIGNED BY: JUANPABLO Rosario April 10, 2023 8:05 AM [facility] 04-10-2023 History of Present illness Narrative Radiology Service Progress Note PATIENT NAME: Sri Chacon DATE OF SERVICE: April 10, 2023 TIME: 8:05 AM PATIENT IDENTITY VERIFICATION COMPLETED USING TWO (2) IDENTIFIERS: Name and Date of confirmed by patient verbally and Name and Date of confirmed by identification band. FALL SCREENING: Has the patient had 2 falls in the last year or 1 fall with injury or currently using an Ambulatory Assistive Device (Walker, Cane, Wheelchair, Crutches, etc.)? Yes, Patient High Risk for Falls What interventions were put in place to prevent falls during this visit? [place] Falls Risk Wristband Applied and Increased Observations by Caregivers PATIENT GENDER DATA: Female. status: : No status: NO. PATIENT RELEVANT IMPLANT DATA REVIEWED: Yes RADIOLOGY DEPARTMENT: MR; Exam(s) Completed: Lower MSK: Ankle/Hind Foot, right PERIPHERAL IV DATA: Not applicable SIGNED BY: JUANPABLO Rosario April 10, 2023 8:05 AM documented in this encounter [facility] 04-08-2023 Note ORIGINAL NM MYOCARDIAL SPECT STRESS/REST CLINICAL STATEMENT: CP TECHNIQUE: Lexiscan dose:0.4 mg Radiopharmaceutical (stress): Tc-99m Sestamibi Dose:30.9 mCi Radiopharmaceutical (rest): Tc-99m Sestamibi Dose:10.6 mCi SPECT acquisition and processing Reconstruction and reorientation of SPECT images into short axis, vertical and horizontal long axis planes Quantitative LVEF assessment COMPARISON:2018 REPORT:Overall, image quality is good. Rotating planar images show no significant patient motion. SPECT perfusion images during rest and stress show relatively homogenous radiotracer uptake, no defects to suggest ischemia or infarction. GATED SPECT images show normal LV size and function. LVEF calculated at greater than 70%. IMPRESSION: 1. No evidence for ischemia. 2. No evidence for infarction. 3. Normal LV size and function. 4. No changes compared to prior report from 2018. Interpreted By: Pedro Mendoza Preliminary Report By: Pedro Mendoza Electronically Signed By: Pedro Mendoza Dictated Date: 04/08/2023 6:22:42 PM Prelim Date: 04/08/2023 6:22:42 PM Sign Date: 04/08/2023 6:25:39 PM Ordering Provider:Dayan Yoder [facility] 08-22-2023 Miscellaneous Notes* Telephone Encounter - Carolyn Bhatti - 03/31/2023 11:02 AM EDT No Show Documentation Sri Chacon no showed for an appointment on 03/31/2023 with Iveth Vasquez APRN.CNP at 10:40 am. She was scheduled for a new patient to establish. Resources discussed/offered to patient: n/a No show determined to be fault of patient: n/a New patient to establish care. This is the patients first no show in the last 12 months. Patient was rescheduled for n/a. Letter mailed : N/A Is this the Third or Fourth No Show ? No Carolyn Bhatti March 31, 2023 11:02 AM [facility] NoteHNO ID: [id number] Author: Ronnie Davison PT Service: ? Author Type: Physical Therapist Type: Progress Notes Filed: 03/13/2023 10:53 AM Note Text: Episode Visit Count: 1 Therapist That Will Accept/Oversee The Plan Of Care: Ronnie Davison PT, DPT Start of Care Date: 03/13/23 Onset Date: 02/06/23 Plan of Care Certification Date: 03/13/23 Next Certification Due Date: 04/17/23 Patient Identified by Name and Date of : Yes REHABILITATION AND SPORTS THERAPY PHYSICAL THERAPY EVALUATION PLAN OF CARE: Assessment: Sri Chacon presents with diagnosis of R Ankle Sprain that interferes with standing, walking, walking in the house, walking in the community, stair negotiation, lifting, physical activities, recreational activities, working, sleeping, driving, weight bearing . She presents with impairments in ADL's/IADLs, balance, coordination, flexibility, gait, independence in exercise, joint mobility, overall function, patient reported outcome measures, range of motion, soft tissue healing, strength, symptom management, and tissue tenderness. PROMIS? (Patient-Reported Outcomes Measurement Information System) scores were reviewed and self efficacy domain identified as a rehabilitation concern. Prognosis for therapy is Good due to: current objective clinical presentation, acuteness of condition, good support system/ coping skills . She will benefit from skilled therapy services to meet the goals established for this plan of care as noted below. Goals for Episode of Care: created on 03/13/23 through 05/13/23 Christian in home exercise program. Patient will decrease pain rating by 2 points to meet minimal clinical important difference for numeric pain rating scale. Patient will increase active ROM of R Ankle to WNL/compared to Left Ankle to allow pt to to improve performance of ADLs, to improve gait mechanics / gait pattern , and to decrease falls risks . Patient will demonstrate increase in R Ankle/Foot strength to 5/5 during manual muscle testing in order to improve function for home management tasks, leisure / recreation skills, light functional tasks, moderate to heavy functional tasks, prior functional tasks, and work tasks. Perform prolonged walking and standing with decreased report of symptoms/pain in 6-8 weeks. Pt. will be able to ambulate independently without use of R Pneumatic Boot. Normal gait. Reciprocal stair negotiation. Patient will report no falls. Patient Goals: Relieve pain and get back to PLOF/hiking. Planned Interventions, Frequency, and Duration: Current Frequency: 2x/week Duration: 4 weeks Total Number of Visits Planned: 8 Planned Treatment Interventions: Therapeutic exercise (47163), Neuromuscular re-education (92837), Manual therapy (46762), Therapeutic activities (79729), Self-custodial management (14896), Gait Training (08626), Patient/Family/Caregiver Education, Body Mechanics Training PLAN FOR NEXT VISIT: Manual as needed; possible gentle joint mobs for pain; foot/ankle active motion ANDstrengthening as able. Patient demonstrates good understanding of plan of care and treatment. The above goals and plan of care were discussed and agreed upon by patient/family. SUBJECTIVE: Patient reports walking outside and was completing a step down and the R foot gave out; this ADRIEN happened about a month ago; patient was unable to walk initially; went to the ER, was put on crutches and an air cast; saw Dr. Puri on 02/11/23 and was put in pneumatic boot ever since; Dr. Puri is currently ordering an MRI due to possible tearing of ligaments per patient. Current complaint is intense pain with weightbearing and prolong stand/walking. Has been off the cruthces for about a week. Patient Goals: Relieve pain and get back to PLOF/hiking. Functional Limitations: standing, walking, walking in the house, walking in the community, stair negotiation, lifting, physical activities, recreational activities, working, sleeping, driving, weight bearing Prior Level of Function: Independent without limitations Relevant History Past Relevant Medical Conditions: Per review with patient no issues were identified, Comments Relevant Medical Conditions Comments: Epilepsy, chronic migraines. Past Relevant Surgical Conditions: Comments Relevant Surgical Conditions Comments: Previous L Broken Ankle with subsequent injury and surgery. 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. Recreation / Current Exercise: unable to right now. Hobbies / Interests: Hiking/snowboarding Home Environment Equipment Owned: Crutch(es), Other: See Comment (Boot) Intake Information: Prescription present Previous Treatment: NSAIDs , Ice , Heat Falls Interview: Fall with injury in the last year Falls Intervention: More thorough falls assessment to be performed Pain: Pain Pain Level: 9 Pain Location: Ankle - Right, Foot - Right (more content not included)...[facility]08-04-2023 History of Present illness Narrative* Ronnie Davison PT - 03/13/2023 8:30 AM EDT Episode Visit Count: 1 Therapist That Will Accept/Oversee The Plan Of Care: Ronnie Davison PT, DPT Start of Care Date: 03/13/23 Onset Date: 02/06/23 Plan of Care Certification Date: 03/13/23 Next Certification Due Date: 04/17/23 Patient Identified by Name and Date of : Yes REHABILITATION AND SPORTS THERAPY PHYSICAL THERAPY EVALUATION PLAN OF CARE: Assessment: Sri Chacon presents with diagnosis of R Ankle Sprain that interferes with standing, walking, walking in the house, walking in the community, stair negotiation, lifting, physical activities, recreational activities, working, sleeping, driving, weight bearing . She presents with impairments in ADL's/IADLs, balance, coordination, flexibility, gait, independence in exercise, joint mobility, overall function, patient reported outcome measures, range of motion, soft tissue healing, strength, symptom management, and tissue tenderness. PROMIS (Patient-Reported Outcomes Measurement Information System) scores were reviewed and self efficacy domain identified as a rehabilitation concern.Prognosis for therapy is Good due to: current objective clinical presentation, acuteness of condition, good support system/ coping skills . She will benefit from skilled therapy services to meet the goals established for this plan of care as noted below. Goals for Episode of Care: created on 03/13/23 through 05/13/23 Christian in home exercise program. Patient will decrease pain rating by 2 points to meet minimal clinical important difference for numeric pain rating scale. Patient will increase active ROM of R Ankle to WNL/compared to Left Ankle to allow pt to to improveperformance of ADLs, to improve gait mechanics / gait pattern , and to decrease falls risks . Patient will demonstrate increase in R Ankle/Foot strength to 5/5 during manual muscle testing in order to improve function for home management tasks, leisure / recreation skills, light functional tasks, moderate to heavy functional tasks, prior functional tasks, and work tasks. Perform prolonged walking and standing with decreased report of symptoms/pain in 6-8 weeks. Pt. will be able to ambulate independently without use of R Pneumatic Boot. Normal gait. Reciprocal stair negotiation. Patient will report no falls. Patient Goals: Relieve pain and get back to PLOF/hiking. Planned Interventions, Frequency, and Duration: Current Frequency: 2x/week Duration: 4 weeks Total Number of Visits Planned: 8 Planned Treatment Interventions: Therapeutic exercise (00773), Neuromuscular re- education (50675), Manual therapy (42191), Therapeutic activities (52858), Self- custodial management (26604), Gait Training (18887), Patient/Family/Caregiver Education, Body Mechanics Training PLAN FOR NEXT VISIT: Manual as needed; possible gentle joint mobs for pain; foot/ankle active motion &strengthening as able. Patient demonstrates good understanding of plan of care and treatment. The above goals and plan of care were discussed and agreed upon by patient/family. SUBJECTIVE: Patient reports walking outside and was completing a step down and the R foot gave out; this ADRIEN happened about a month ago; patient was unable to walk initially; went to the ER, was put on crutches and an air cast; saw Dr. Puri on 02/11/23 and was put in pneumatic boot ever since; Dr. Puri is currently ordering an MRI due to possible tearing of ligaments per patient. Current complaint is intense pain with weightbearing and prolong stand/walking. Has been off the cruthces for about a week. Patient Goals: Relieve pain and get back to PLOF/hiking. Functional Limitations: standing, walking, walking in the house, walking in the community, stair negotiation, lifting, physical activities, recreational activities, working, sleeping, driving, weightbearing Prior Level of Function: Independent without limitations Relevant History Past Relevant Medical Conditions: Per review with patient no issues were identified, Comments Relevant Medical Conditions Comments: Epilepsy, chronic migraines. Past Relevant Surgical Conditions: Comments Relevant Surgical Conditions Comments: Previous L Broken Ankle with subsequent injury and surgery. 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. Recreation / Current Exercise: unable to right now. Hobbies / Interests: Hiking/snowboarding Home Environment Equipment Owned: Crutch(es), Other: See Comment (Boot) Intake Information: Prescription present Previous Treatment: NSAIDs , Ice , Heat Falls Interview: Fall with injury in the last year Falls Intervention: More thorough falls assessment to be performed Pain: Pain Pain Level: 9 Pain Location: Ankle - Right, Foot - Right Description: Throbbing, Stabbing, Aching Frequency: Continuous, With movement, Standing, Walking Post Treatment Pain Post Treatment Pain Level: No Change Post Treatment Pain Location: Ankle - Right, Foot - Right Post Treatment Pain Description: Stabbing, Throbbing Post Treatment Symptoms: Same as beginning of eval. PROMIS Scales Higher is Better 03/11/2023 09/30/2021 Phys Func - Score 55 (within normal limits) 31 (moderate dysfunction) Phys Func - Percentile 69 % 3 % Self-Eff Symptom - Score 32 (Low) 32 (Low) Self-Eff Symptom - Percentile 4 % 4 % T-scores: mean of general population = 50. 5 points is clinically meaningfully difference Percentiles provide an indication of how the patient's score ranks in relation to the general population. Higher percentile rankings indicate better function/quality of life. 50th percentile is the average of the general population and indicates half of respondents had a worse score. OBJECTIVE MEASURES WITH LEVEL OF FUNCTION: Ankle Observations Weight Bearing Status: Other (See Comment) (FWB) R Ankle Presents with: Swelling, Atrophy R Ankle Girth - Figure 8 (cm): 16 R Ankle Palpation Tenderness: Anterior talofibular ligament, Calcaneofibular ligament, Posterior talofibular ligament, Fibula, Peroneal tendon, Lateral malleolus, Medial malleolus (Sinus Tarsi) Ankle Brace/Support: Boot (Pneumatic Boot) R Foot Observations: Slight Swelling. LE AROM R Ankle Dorsiflexion: 5 Degrees R Ankle Plantar Flexion: 20 Degrees R Ankle Inversion: 5 R Ankle Eversion: 5 LE Strength R Ankle Dorsiflexion (L4): 3-/5 R Ankle Plantar Flexion: 3-/5 R Ankle Inversion: 3-/5 R Ankle Eversion: 3-/5 R Great Toes Extension (L5, S1): 3/5 L Ankle Dorsiflexion (L4): 4+/5 L Ankle Plantar Flexion: 4+/5 L Ankle Inversion: 4+/5 L Ankle Eversion: 4+/5 L Great Toes Extension (L5, S1): 5/5 Special Tests - Ankle Ankle Special Tests: Anterior Drawer for ATFL laxity, Syndesmosis Squeeze Test, Syndesmosis External Rotation, Comments, Klieger's Test Anterior Drawer for ATFL laxity: Right positive Syndesmosis External Rotation: Right positive Syndesmosis Squeeze Test: Right positive Klieger's Test: Right Positive Special Tests Comments: Talar Tilt (R +). Gait Weight Bearing Status: FWB Gait: Independent (Pneumatic Boot on R Foot) Gait Deviations: Right Lower Extremity, General Deviations Gait Deviations Right Lower Extremity: Stance time decreased, Push off during terminal stance decreased, Weight bearing decreased General Deviations/Observations: Antalgic gait Education: Education Learning/educational needs: Health promotion, Safety, Home exercise program, Plan of Care, Gait Training, Body Mechanics TREATMENT: PT Treatment Interventions: Therapeutic Exercise, Self-Long Term Management Evaluation Therapeutic Exercise: 1: *Ankle Pumps: 1x20, Right 2: *Ankle Circles: 1x20 Cw/Ccw, Right 3: *Ankle Alphabets: 1 Set, Right. 4: *Ankle PF: 1x10, YTB, RLE. 5: *Ankle DF:1x10 YTB, RLE. 6: *Towel Scrunches:1x10, RLE. Skilled Intervention: Patient was educated in proper exercise technique and purpose for exercises. Reviewed and educated patient on additions/changes for home exercise program as above (*). Skilled judgment was provided in selection of appropriate interventions. Provided written instruction for home exercise program to facilitate proper performance and compliance. Correct performance of therapeutic exercises was facilitated with verbal, visual, and tactile cuing. Self-Long Term Management: 1: Discussion and education on musculature surrounding ankle and all the different actions consistent with her painful and weak motion. Discussion of importance of the ankle with proprioception and balance. Discussed and educated on POC, HEP, and Role of PT in treating acute ankle sprains. Education on discomfort vs. sharp pain, stretch feeling vs. sharp pain, and patient was constantly reminded that he should stop any activity or exercise that increases her pain. Advice on working and only doing what she can tolerate on the R Ankle due to occupation requiring increased WB. Skilled Intervention: Skilled judgment in the selection of proper modification for activity of daily living/home management based on clinical presentation, deficits, and needs. Reviewed patient specific diagnosis in relation to activities of daily living/home management. Activity progression based on professional judgement. Billing * Evaluation Low Complexity: 1 Unit Therapeutic Exercise Treatment Minutes: 15 Self-Care/Home Management Treatment Minutes: 8 Total Treatment Time Minutes (timed/untimed): 43 Session Start Time : 829 Session Stop Time : 912 Ronnie Davison PT [facility] NoteHNO ID: [id number] Author: Whit Puri Service: ? Author Type: Physician Type: Progress Notes Filed: 03/10/2023 9:17 AM Note Text: FOLLOW UP PODIATRIC OFFICE VISIT Chief Complaint: This 47 year old who presents for follow up:right ankle sprain Patient presents to clinic for follow-up right ankle sprain. She was last seen on February 11 at which time we placed her in a pneumatic boot. She is wearing the pneumatic boot and she feels it is helping a little but not significantly. Patient has tried 600 mg ibuprofen three times daily but she does not feel it is helping. Patient is icing her foot daily which is not helping. She was ordered physical therapy but she did not get scheduled until this coming Thursday. Patient states the pain is 9/10. Patient states the pain is constant and even present at rest. PAIN EVALUATION 03/09/2023 2058 Pain Level: 9 Pain Location: Ankle-Right Description: Aching;Burning;Cramping;Crushing;Cutting;Dull;Pulsating;Radiating;Sharp;Sanjuana oting;Stabbing;Stabbing/Not Incision;Throbbing Duration Units: Weeks Frequency: Continuous Comments: Nothing helps No results found for: HBA1C PCP: No primary care provider on file. PAST MEDICAL HISTORY Diagnosis Date Calculus of kidney 07/03/2006 Calculus of ureter 03/16/2008 Convulsions (HCC) 02/01/2013 Depression Essential hypertension 01/01/2018 Gallstone 12/25/2017 Hydronephrosis 03/16/2008 Hypothyroidism IBS (irritable bowel syndrome) Lactose intolerance in adult 01/21/2018 Migraine 02/01/2013 Nonrheumatic mitral (valve) prolapse 06/15/2017 Seizure disorder ([facility]) last 04/2021 Traumatic brain injury ([facility]) Unspecified asthma(493.90) Unspecified ectopic without intrauterine Ectopic Current Outpatient Medications Medication Sig LAMICTAL XR 300 mg 24 hr tablet Take 1 tablet by mouth every morning. LAMICTAL XR 200 mg 24 hr tablet Take 2 tablets by mouth every evening. zonisamide (ZONEGRAN) 100 mg capsule Take 1 capsule by mouth every morning AND 4 capsules every evening. cholecalciferol, Vitamin D3, (VITAMIN D3) 1,250 mcg (50,000 unit) cap capsule Take 1 capsule by mouth one time a week for 12 doses. DO NOT REFILL atogepant (QULIPTA) 60 mg tablet Take 1 tablet (60 mg) by mouth once daily. lidocaine (XYLOCAINE) 5 % ointment Apply to affected area three times daily. levothyroxine (SYNTHROID) 75 mcg tablet Take 1 tablet by mouth once daily. Take on empty stomach. For Thyroid No current facility-administered medications for this visit. ALLERGIES Allergen Reactions Asa [Salicylates] Swelling Aspirin Rash Benadryl [Diphenhyd* Mental Status Change Codeine Hives swelling-airway/face Morphine Swelling Penicillin G Hives, Swelling Phenergan [Prometha* Intolerance mental status change Shellfish Derived Anaphylaxis PAST SURGICAL HISTORY Procedure Laterality Date CYSTOSCOPY,URETEROSCOPY,LITHOTRIPSY DILATION AND CURETTAGE DXAND/THER NONOBSTETRIC 1995 Dilation AND curettage PAST SURGICAL HISTORY OF 1999 C section PAST SURGICAL HISTORY OF 2009 heart cath PAST SURGICAL HISTORY OF 1991 right knee surgery with muscle and scar tissue removal post fx PAST SURGICAL HISTORY OF Right hand marley Dr. Nguyen PAST SURGICAL HISTORY OF Right 2020 right thumb CMC arthroplasty TOTAL ABDOMINAL HYSTERECT W/WO RMVL TUBE OVARY 01/2005 Hysterectomy, [facility] Physical Exam: OBJECTIVE: Constitutional: Pt is a well developed 47 year old female who is alert, oriented, cooperative and in no apparent distress. Eyes: Following during examination. No redness or drainage. Respiratory: RR normal and nonlabored. Even breathing. No evidence of distress. Psychology: Patient is engaged during conversation. Normal affect and mood. Does not appear depressed or anxious. NVSI unchanged from previous visit. Dermatological: Nails 1-5 b/l are normal. Webspaces clean and dry 1-4 b/l. Skin appears well hydrated and supple. good color, texture, turgor. No open lesions present. No callosities present. Musculoskeletal/Orthopaedic: Patient has pain to palpation of right lateral ankle along sinus tarsi (atfl) and peroneal tendon No laxity with anterior drawer compared to left lwoer extremity Pain with resisted eversion of right ankle Xrays reviewed of ankle and tibia fibula dated February 11. No acute fracture. Soft-tissue swelling noted to the lateral aspet of right ankle ASSESSMENT: (S93.401A) Sprain of right ankle, unspecified ligament, initial encounter (primary encounter diagnosis) (M76.71) Peroneal tendinitis of right lower extremity (M25.571) Acute right ankle pain PLAN: Discussed right ankle pain. She continues to have pain along the lateral ankle (ATFL and peroneal tendon) She has tried boot for one month. She has been taking ibuprofen 600 mg tid x 1 month. She is icing her ankle. She has no improvement She continues to have conside (more content not included)...[facility]08-01-2023 NoteHNO ID: [id number] Author: Shawanda Boudreaux LPN Service: ? Author Type: LICENSED NURSE Type: Progress Notes Filed: 03/10/2023 9:17 AM Note Text: AMB ROOMING INTAKE FLOWSHEET DATA Pain Pain Level: 9 Pain Location: Ankle-Right Description: Aching, Burning, Cramping, Crushing, Cutting, Dull, Pulsating, Radiating, Sharp, Shooting, Stabbing, Stabbing/Not Incision, Throbbing Duration Units: Weeks Frequency: Continuous Comments: Nothing helps Patient presents with: Right Foot - Established Patient, Follow Up, Pain, Swelling, Numbness, Fracture Shawanda Boudreaux [facility]08-01-2023 History of Present illness Narrative* Whit Puri - 03/10/2023 9:05 AM EDT Images from the original note were not included. FOLLOW UP PODIATRIC OFFICE VISIT Chief Complaint: This 47 year old who presents for follow up:right ankle sprain Patient presents to clinic for follow-up right ankle sprain. She was last seen on February 11 at whichtime we placed her in a pneumatic boot. She is wearing the pneumatic boot and she feels it is helping a little but not significantly. Patient has tried 600 mg ibuprofen three times daily but she does not feel it is helping. Patient is icing her foot daily which is not helping. She was ordered physical therapy but she did not get scheduled until this coming Thursday. Patient states the pain is 9/10. Patient states the pain is constant and even present at rest. PAIN EVALUATION 03/09/20232057 Pain Level: 9 Pain Location: Ankle-Right Description: Aching;Burning;Cramping;Crushing;Cutting;Dull;Pulsating;Radiating;Sharp;Shooting ;Stabbing;Stabbing/Not Incision;Throbbing Duration Units: Weeks Frequency: Continuous Comments: Nothing helps No results found for: HBA1C PCP: No primary care provider on file. PAST MEDICAL HISTORY Diagnosis Date Calculus of kidney 07/03/2006 Calculus of ureter 03/16/2008 Convulsions (HCC) 02/01/2013 Depression Essential hypertension 01/01/2018 Gallstone 12/25/2017 Hydronephrosis 03/16/2008 Hypothyroidism IBS (irritable bowel syndrome) Lactose intolerance in adult 01/21/2018 Migraine 02/01/2013 Nonrheumatic mitral (valve) prolapse 06/15/2017 Seizure disorder ([facility]) last 04/2021 Traumatic brain injury ([facility]) Unspecified asthma(493.90) Unspecified ectopic without intrauterine Ectopic Current Outpatient Medications Medication Sig LAMICTAL XR 300 mg 24 hr tablet Take 1 tablet by mouth every morning. LAMICTAL XR 200 mg 24 hr tablet Take 2 tablets by mouth every evening. zonisamide (ZONEGRAN) 100 mg capsule Take 1 capsule by mouth every morning AND 4 capsules every evening. cholecalciferol, Vitamin D3, (VITAMIN D3) 1,250 mcg (50,000 unit) cap capsule Take 1 capsule by mouth one time a week for 12 doses. DO NOT REFILL atogepant (QULIPTA) 60 mg tablet Take 1 tablet (60 mg) by mouth once daily. lidocaine (XYLOCAINE) 5 % ointment Apply to affected area three times daily. levothyroxine (SYNTHROID) 75 mcg tablet Take 1 tablet by mouth once daily. Take on empty stomach. For Thyroid No current facility-administered medications for this visit. ALLERGIES Allergen Reactions Asa [Salicylates] Swelling Aspirin Rash Benadryl [Diphenhyd* Mental Status Change Codeine Hives swelling-airway/face Morphine Swelling Penicillin G Hives, Swelling Phenergan [Prometha* Intolerance mental status change Shellfish Derived Anaphylaxis PAST SURGICAL HISTORY Procedure Laterality Date CYSTOSCOPY,URETEROSCOPY,LITHOTRIPSY DILATION & CURETTAGE DX&/THER NONOBSTETRIC 1995 Dilation & curettage PAST SURGICAL HISTORY OF 1999 C section PAST SURGICAL HISTORY OF 2009 heart cath PAST SURGICAL HISTORY OF 1991 right knee surgery with muscle and scar tissue removal post fx PAST SURGICAL HISTORY OF Right hand marley Dr. Nguyen PAST SURGICAL HISTORY OF Right 2020 right thumb CMC arthroplasty TOTAL ABDOMINAL HYSTERECT W/WO RMVL TUBE OVARY 01/2005 Hysterectomy, [facility] Physical Exam: OBJECTIVE: Constitutional: Pt is a well developed 47 year old female who is alert, oriented, cooperative and in no apparent distress. Eyes: Following during examination. No redness or drainage. Respiratory: RR normal and nonlabored. Even breathing. No evidence of distress. Psychology: Patient is engaged during conversation. Normal affect and mood. Does not appear depressed or anxious. NVSI unchanged from previous visit. Dermatological: Nails 1-5 b/l are normal. Webspaces clean and dry 1-4 b/l. Skin appears well hydrated and supple. good color, texture, turgor. No open lesions present. No callosities present. Musculoskeletal/Orthopaedic: Patient has pain to palpation of right lateral ankle along sinus tarsi (atfl) and peroneal tendon No laxity with anterior drawer compared to left lwoer extremity Pain with resisted eversion of right ankle Xrays reviewed of ankle and tibia fibula dated February 11. No acute fracture. Soft-tissue swelling noted to the lateral aspet of right ankle ASSESSMENT: (S93.401A) Sprain of right ankle, unspecified ligament, initial encounter (primary encounter diagnosis) (M76.71) Peroneal tendinitis of right lower extremity (M25.571) Acute right ankle pain PLAN: Discussed right ankle pain. She continues to have pain along the lateral ankle (ATFL and peroneal tendon) She has tried boot for one month. She has been taking ibuprofen 600 mg tid x 1 month. She is icing her ankle. She has no improvement She continues to have consider amount of pain to the right ankle. I do feel mri is necessary to evaluate for any split tear of the peroneal brevis or longus vs tearing of the ATFL Would have her continue with boot Will call with results of mri Whit Puri DPM * Shawanda Boudreaux LPN - 03/10/2023 8:36 AM EDT AMB ROOMING INTAKE FLOWSHEET DATA Pain Pain Level: 9 Pain Location: Ankle-Right Description: Aching, Burning, Cramping, Crushing, Cutting, Dull, Pulsating, Radiating, Sharp, Shooting, Stabbing, Stabbing/Not Incision, Throbbing Duration Units: Weeks Frequency: Continuous Comments: Nothing helps Patient presents with: Right Foot - Established Patient, Follow Up, Pain, Swelling, Numbness, Fracture Shawanda Boudreaux LPN documented in this encounterTrihealth07-24-2023 NoteHNO ID: [id number] Author: Charity Santoyo Service: ? Author Type: ? Type: Progress Notes Filed: 03/02/2023 4:23 PM Note Text: POPULATION HEALTH NAVIGATION OUTREACH Action/FYI Patient Outreach: Spoke with patient to schedule in RST. Pt scheduled RST PT Consult. Patient Identified by Name and : YES, via phone Outreach Outcome/Action Spoke to patient / parent / legal guardian: Patient scheduled Did you use a PCP flex slot to schedule this appointment? No Reason for Outreach Care Gap or Scheduling/Wellness visits Payer: Payor: [facility] MEDICAID / [facility] / Product Type: Medicaid / Care Gap Reviewed:: Specialty Scheduling Reminder: Reminder note to check Health Maintenance for items below Health Maintenance items due: HEPATITIS B(1 of 3 - 3-dose series) Never done PNEUMOCOCCAL(1 - PCV) Never done SPIROMETRY Never done HEPATITIS C SCREENING Never done MAMMOGRAM due on 12/25/2018 LIPID SCREEN Never done COLORECTAL CANCER SCREENING due on 2019 COVID-19 VACCINE(3 - Pfizer series) due on 02/18/2021 ANNUAL PCP TEAM CHRONIC DISEASE VISIT due on 04/04/2022 Navigation Signature: Charity Dixon March 02, 2023 4:22 [facility]07-24-2023 NotePatient Outreach (NETNAV) SRI CHACON ([id number]) 1975 F Date Time Provider Department 03/02/23 NO PCP NETNAV During your visit today, we recorded the following information about you: Charity Santoyo 03/02/2023 4:23 PM Signed POPULATION HEALTH NAVIGATION OUTREACH Action/ Patient Outreach: Spoke with patient to schedule in RST. Pt scheduled RST PT Consult. Patient Identified by Name and : YES, via phone Outreach Outcome/Action Spoke to patient / parent / legal guardian: Patient scheduled Did you use a PCP flex slot to schedule this appointment? No Reason for Outreach Care Gap or Scheduling/Wellness visits Payer: Payor: [facility] MEDICAID / [facility] / Product Type: Medicaid / Care Gap Reviewed:: Specialty Scheduling Reminder: Reminder note to check Health Maintenance for items below Health Maintenance items due: HEPATITIS B(1 of 3 - 3-dose series) Never done PNEUMOCOCCAL(1 - PCV) Never done SPIROMETRY Never done HEPATITIS C SCREENING Never done MAMMOGRAM due on 12/25/2018 LIPID SCREEN Never done COLORECTAL CANCER SCREENING due on 2019 COVID-19 VACCINE(3 - Pfizer series) due on 02/18/2021 ANNUAL PCP TEAM CHRONIC DISEASE VISIT due on 04/04/2022 Navigation Signature: Charity Germain Pss March 02, 2023 4:22 PM Allergies As of Date: 03/02/2023 Noted Allergy Reaction ASA (SALICYLATES) 07/01/2006 7 - Swelling ASPIRIN 09/24/2018 2 - Rash BENADRYL (DIPHENHYDRAMINE HCL) 07/01/2006 1 - Mental Status Change CODEINE 07/08/2006 4 - Hives Comments: swelling-airway/face MORPHINE 07/01/2006 7 - Swelling PENICILLIN G 07/01/2006 4 - Hives 7 - Swelling PHENERGAN (PROMETHAZINE HCL) 07/01/2006 5 - Intolerance Comments: mental status change SHELLFISH DERIVED 10/19/2018 10 - Anaphylaxis Date Reviewed: 02/11/2023 Reviewed by: Shawanda Boudreaux LPN - Fully Assessed Prescriptions as of 03/02/2023 - LAMICTAL XR 300 mg 24 hr tablet Take 1 tablet by mouth every morning. - LAMICTAL XR 200 mg 24 hr tablet Take 2 tablets by mouth every evening. - zonisamide (ZONEGRAN) 100 mg capsule Take 1 capsule by mouth every morning AND 4 capsules every evening. - cholecalciferol, Vitamin D3, (VITAMIN D3) 1,250 mcg (50,000 unit) cap capsule Take 1 capsule by mouth one time a week for 12 doses. DO NOT REFILL - atogepant (QULIPTA) 60 mg tablet Take 1 tablet (60 mg) by mouth once daily. - lidocaine (XYLOCAINE) 5 % ointment Apply to affected area three times daily. - levothyroxine (SYNTHROID) 75 mcg tablet Take 1 tablet by mouth once daily. Take on empty stomach. For Thyroid Problem List As Of Date 03/02/2023 Noted Resolved Calculus of kidney [N20.0] 07/03/2006 12/26/2017 Asthma [J45.909] 07/17/2007 Sprain of ankle, unspecified site [S93.409A] 10/18/2007 12/24/2017 Renal colic [N23] 01/21/2008 12/24/2017 Hydronephrosis [N13.30] 03/16/2008 12/24/2017 Calculus of ureter [N20.1] 03/16/2008 12/26/2017 Gross hematuria [R31.0] 05/02/2009 12/24/2017 Microscopic hematuria [R31.29] 05/02/2009 12/24/2017 Right flank pain [R10.9] 05/02/2009 12/24/2017 Hyperactivity of bladder [N31.8] 05/02/2009 12/24/2017 Renal calculus, right [N20.0] 07/31/2010 12/24/2017 Pelvic pain in female [R10.2] 08/27/2011 12/24/2017 Pain in joint, lower leg [M25.569] 12/29/2012 12/24/2017 Convulsions (HCC) [R56.9] 02/01/2013 12/26/2017 Migraine [G43.909] 02/01/2013 Other convulsions (HCC) [R56.9] 06/02/2014 Nonrheumatic mitral (valve) prolapse [I34.1] 06/15/2017 Essential hypertension [I10] 01/01/2018 Depression [F32.A] 01/01/2018 Encounter Status:Closed by CHARITY SANTOYO on 03/02/23[facility]07-[facility]23 NoteHNO ID: [id number] Author: RT Shanae(R) Service: ? Author Type: Warehouse Administrator Type: Progress Notes Filed: 02/17/2023 4:25 PM Note Text: Radiology Service Progress Note PATIENT NAME: Sri Chacon DATE OF SERVICE: February 17, 2023 TIME: 4:12 PM PATIENT IDENTITY VERIFICATION COMPLETED USING TWO (2) IDENTIFIERS: Name and Date of confirmed by patient verbally. FALL SCREENING: Has the patient had 2 falls in the last year or 1 fall with injury or currently using an Ambulatory Assistive Device (Walker, Cane, Wheelchair, Crutches, etc.)? No PATIENT GENDER DATA: Female. status: : No status: NO. PATIENT RELEVANT IMPLANT DATA REVIEWED: Yes RADIOLOGY DEPARTMENT: General X-ray: Exam(s) Completed: Lower Extremity X-Ray(s): Tibia Fibula, Right PERIPHERAL IV DATA: Not applicable SIGNED BY: RT Shanae(R) February 17, 2023 4:12 [facility]07-05-2023 NoteHNO ID: [id number] Author: Brianna Ty RN Service: ? Author Type: Registered Nurse Type: Progress Notes Filed: 02/11/2023 10:24 AM Note Text: Per Dr. Puri, Sri was provided with Small Airselect boot and ankle brace, size Medium, and instructed/educated in its application, wear, and care. All questions were answered, and patient was able to demonstrate competence with the necessary skills to utilize the above equipment. Patient signed DJO Patient agreement. [employer] to bill patient's insurance for products. Brianna Ty RNGood [facility]aritan Hospital07-05-2023 NoteHNO ID: [id number] Author: Whit Puri Service: ? Author Type: Physician Type: Progress Notes Filed: 02/11/2023 10:24 AM Note Text: Initial Podiatric Office Visit: Chief Complaint: This 47 year old female who presents with chief complaint:right ankle injury HPI Patient presents to clinic for evaluation of her right ankle A few weeks ago, she sustained a fall. She is unsure of what possition her foot rolled but when she fell, she heard a pop and she went to stand up and could not do so She presented to the emergency room at [facility]. She had xrays that were negative. She was given crutches and a brace. She is here for follow-up with new xrays She continues to complain of pain. Patient states the pain is mostly to the lateral aspect of right ankle. PAIN EVALUATION 02/09/2023 1246 Pain Level: 9 Pain Location: Ankle-Right Description: Contraction;Cramping;Crushing;Cutting;Pulsating;Sharp;Stabbing/Not Incision Frequency: Continuous No results found for: HBA1C PCP: No primary care provider on file. PAST MEDICAL HISTORY Diagnosis Date Calculus of kidney 07/03/2006 Calculus of ureter 03/16/2008 Convulsions (HCC) 02/01/2013 Depression Essential hypertension 01/01/2018 Gallstone 12/25/2017 Hydronephrosis 03/16/2008 Hypothyroidism IBS (irritable bowel syndrome) Lactose intolerance in adult 01/21/2018 Migraine 02/01/2013 Nonrheumatic mitral (valve) prolapse 06/15/2017 Seizure disorder (HCC) last 04/2021 Traumatic brain injury (HCC) Unspecified asthma(493.90) Unspecified ectopic without intrauterine Ectopic Current Outpatient Medications Medication Sig LAMICTAL XR 300 mg 24 hr tablet Take 1 tablet by mouth every morning. LAMICTAL XR 200 mg 24 hr tablet Take 2 tablets by mouth every evening. zonisamide (ZONEGRAN) 100 mg capsule Take 1 capsule by mouth every morning AND 4 capsules every evening. cholecalciferol, Vitamin D3, (VITAMIN D3) 1,250 mcg (50,000 unit) cap capsule Take 1 capsule by mouth one time a week for 12 doses. DO NOT REFILL atogepant (QULIPTA) 60 mg tablet Take 1 tablet (60 mg) by mouth once daily. levothyroxine (SYNTHROID) 75 mcg tablet Take 1 tablet by mouth once daily. Take on empty stomach. For Thyroid lidocaine (XYLOCAINE) 5 % ointment Apply to affected area three times daily. No current facility-administered medications for this visit. ALLERGIES Allergen Reactions Asa [Salicylates] Swelling Aspirin Rash Benadryl [Diphenhyd* Mental Status Change Codeine Hives swelling-airway/face Morphine Swelling Penicillin G Hives, Swelling Phenergan [Prometha* Intolerance mental status change Shellfish Derived Anaphylaxis PAST SURGICAL HISTORY Procedure Laterality Date CYSTOSCOPY,URETEROSCOPY,LITHOTRIPSY DILATION AND CURETTAGE DXAND/THER NONOBSTETRIC 1995 Dilation AND curettage PAST SURGICAL HISTORY OF 1999 C section PAST SURGICAL HISTORY OF 2009 heart cath PAST SURGICAL HISTORY OF 1991 right knee surgery with muscle and scar tissue removal post fx PAST SURGICAL HISTORY OF Right hand marley Dr. Nguyen PAST SURGICAL HISTORY OF Right 2020 right thumb CMC arthroplasty TOTAL ABDOMINAL HYSTERECT W/WO RMVL TUBE OVARY 01/2005 Hysterectomy, [facility] FAMILY HISTORY Problem Relation Age of Onset Arthritis Mother Cataract Mother other (pacemaker, defibrillator) Mother other (mitral valve) Father Cataract Maternal Grandmother Social History Tobacco Use Smoking status: Never Smokeless tobacco: Never Vaping Use Vaping Use: Never used Substance Use Topics Alcohol use: Yes Comment: rare Drug use: No REVIEW OF SYSTEMS GENERAL: Negative for Malaise, significant weight loss, fever RESPIRATORY: Negative for cough, wheezing and shortness of breath CARDIOVASCULAR: Negative for chest pain, leg swelling and palpitations GI: Negative for abdominal discomfort, blood in stools or black stools and change in bowel habits : Negative for dysuria, frequency and incontinence MUSCULOSKELETAL: + right ankle pain. SKIN: Negative for lesions, rash, and itching. HEMATOLOGY/LYMPHOLOGY Negative for prolonged bleeding, bruising easily, and swollen nodes. ENDOCRINE: Negative for cold or heat intolerance, polyuria, polydipsia and goiter. NEURO: negative Physical Exam: Constitutional: Pt is a well developed 47 year old female who is alert, oriented and cooperative Eyes: Following during examination. No redness or drainage. Respiratory: RR normal and nonlabored. Even breathing. No evidence of distress or shortness of breath. Psychology: Patient is engaged during conversation. Normal affect and mood. Does not appear depressed or anxious during encounter. Vascular: Dorsalis pedis and posterior tibial pulses palpable as b/l Capillary Fill time < 5 seconds to digits 1-5 b/l Skin temperature warm to warm proximal to distal b/l Hair growth present to digits (more content not included)...[facility]07-05-2023 NoteHNO ID: [id number] Author: Shawanda Boudreaux LPN Service: ? Author Type: LICENSED NURSE Type: Progress Notes Filed: 02/11/2023 10:24 AM Note Text: AMB ROOMING INTAKE FLOWSHEET DATA Pain Pain Level: 9 Pain Location: Ankle-Right Description: Contraction, Cramping, Crushing, Cutting, Pulsating, Sharp, Stabbing/Not Incision Frequency: Continuous Patient presents with: Right Ankle - New, Pain, Ankle Pain Patient present office 2-3 weeks post fall after concrete step gave way. Patient states she felt an pop and ankle during fall was unable to stand following and ankle turned black and purple. Patient complains of pain 9/10 on pain scale. Patient present to [facility] following fall for evaluation. Patient present to office with crutches and splint to right ankle. [facility] NoteHNO ID: [id number] Author: Wilfrid Bustamante RT(R) Service: Radiology Author Type: Technologist Type: Progress Notes Filed: 02/11/2023 7:43 AM Note Text: Radiology Service Progress Note PATIENT NAME: Sri Chacon DATE OF SERVICE: February 11, 2023 TIME: 7:34 AM PATIENT IDENTITY VERIFICATION COMPLETED USING TWO (2) IDENTIFIERS: Name and Date of confirmed by patient verbally. FALL SCREENING: Has the patient had 2 falls in the last year or 1 fall with injury or currently using an Ambulatory Assistive Device (Walker, Cane, Wheelchair, Crutches, etc.)? Yes, Patient High Risk for Falls What interventions were put in place to prevent falls during this visit? Instructed Patient to Call for Help if Needed, Offered Assistance with Transfers/Clothing, and Increased Observations by Caregivers PATIENT GENDER DATA: Female. status: : No status: NO. PATIENT RELEVANT IMPLANT DATA REVIEWED: Yes RADIOLOGY DEPARTMENT: General X-ray: Exam(s) Completed: Lower Extremity X-Ray(s): Ankle, Right PERIPHERAL IV DATA: Not applicable SIGNED BY: RT Jeremy(R) February 11, 2023 7:34 [facility]07-05-2023 History of Present illness Narrative* Brianna Ty RN - 02/11/2023 9:[address] Puri, Sri was provided with Small Airselect boot and ankle brace, size Medium, and instructed/educated in its application, wear, and care. All questions were answered, and patient was able to demonstrate competence with the necessary skills to utilize the above equipment. Patient signed DJO Patient agreement. [employer] to bill patient's insurance for products. Brianna Ty RN * Whit Puri - 02/11/2023 8:25 AM EDT Images from the original note were not included. Initial Podiatric Office Visit: Chief Complaint: This 47 year old female who presents with chief complaint:right ankle injury HPI Patient presents to clinic for evaluation of her right ankle A few weeks ago, she sustained a fall. She is unsure of what possition her foot rolled but when shefell, she heard a pop and she went to stand up and could not do so She presented to the emergency room at [facility]. She had xrays that were negative. She was given crutches and a brace. She is here for follow-up with new xrays She continues to complain of pain. Patient states the pain is mostly to the lateral aspect of rightankle. PAIN EVALUATION 02/09/2023 1246 Pain Level: 9 Pain Location: Ankle-Right Description: Contraction;Cramping;Crushing;Cutting;Pulsating;Sharp;Stabbing/Not Incision Frequency: Continuous No results found for: HBA1C PCP: No primary care provider on file. PAST MEDICAL HISTORY Diagnosis Date Calculus of kidney 07/03/2006 Calculus of ureter 03/16/2008 Convulsions (HCC) 02/01/2013 Depression Essential hypertension 01/01/2018 Gallstone 12/25/2017 Hydronephrosis 03/16/2008 Hypothyroidism IBS (irritable bowel syndrome) Lactose intolerance in adult 01/21/2018 Migraine 02/01/2013 Nonrheumatic mitral (valve) prolapse 06/15/2017 Seizure disorder ([facility]) last 04/2021 Traumatic brain injury ([facility]) Unspecified asthma(493.90) Unspecified ectopic without intrauterine Ectopic Current Outpatient Medications Medication Sig LAMICTAL XR 300 mg 24 hr tablet Take 1 tablet by mouth every morning. LAMICTAL XR 200 mg 24 hr tablet Take 2 tablets by mouth every evening. zonisamide (ZONEGRAN) 100 mg capsule Take 1 capsule by mouth every morning AND 4 capsules every evening. cholecalciferol, Vitamin D3, (VITAMIN D3) 1,250 mcg (50,000 unit) cap capsule Take 1 capsule by mouth one time a week for 12 doses. DO NOT REFILL atogepant (QULIPTA) 60 mg tablet Take 1 tablet (60 mg) by mouth once daily. levothyroxine (SYNTHROID) 75 mcg tablet Take 1 tablet by mouth once daily. Take on empty stomach. For Thyroid lidocaine (XYLOCAINE) 5 % ointment Apply to affected area three times daily. No current facility-administered medications for this visit. ALLERGIES Allergen Reactions Asa [Salicylates] Swelling Aspirin Rash Benadryl [Diphenhyd* Mental Status Change Codeine Hives swelling-airway/face Morphine Swelling Penicillin G Hives, Swelling Phenergan [Prometha* Intolerance mental status change Shellfish Derived Anaphylaxis PAST SURGICAL HISTORY Procedure Laterality Date CYSTOSCOPY,URETEROSCOPY,LITHOTRIPSY DILATION & CURETTAGE DX&/THER NONOBSTETRIC 1995 Dilation & curettage PAST SURGICAL HISTORY OF 1999 C section PAST SURGICAL HISTORY OF 2009 heart cath PAST SURGICAL HISTORY OF 1991 right knee surgery with muscle and scar tissue removal post fx PAST SURGICAL HISTORY OF Right hand marley Dr. Nguyen PAST SURGICAL HISTORY OF Right 2020 right thumb CMC arthroplasty TOTAL ABDOMINAL HYSTERECT W/WO RMVL TUBE OVARY 01/2005 Hysterectomy, [facility] FAMILY HISTORY Problem Relation Age of Onset Arthritis Mother Cataract Mother other (pacemaker, defibrillator) Mother other (mitral valve) Father Cataract Maternal Grandmother Social History Tobacco Use Smoking status: Never Smokeless tobacco: Never Vaping Use Vaping Use: Never used Substance Use Topics Alcohol use: Yes Comment: rare Drug use: No REVIEW OF SYSTEMS GENERAL: Negative for Malaise, significant weight loss, fever RESPIRATORY: Negative for cough, wheezing and shortness of breath CARDIOVASCULAR: Negative for chest pain, leg swelling and palpitations GI: Negative for abdominal discomfort, blood in stools or black stools and change in bowel habits : Negative for dysuria, frequency and incontinence MUSCULOSKELETAL: + right ankle pain. SKIN: Negative for lesions, rash, and itching. HEMATOLOGY/LYMPHOLOGY Negative for prolonged bleeding, bruising easily, and swollen nodes. ENDOCRINE: Negative for cold or heat intolerance, polyuria, polydipsia and goiter. NEURO: negative Physical Exam: Constitutional: Pt is a well developed 47 year old female who is alert, oriented and cooperative Eyes: Following during examination. No redness or drainage. Respiratory: RR normal and nonlabored. Even breathing. No evidence of distress or shortness of breath. Psychology: Patient is engaged during conversation. Normal affect and mood. Does not appear depressed or anxious during encounter. Vascular: Dorsalis pedis and posterior tibial pulses palpable as b/l Capillary Fill time < 5 seconds to digits 1-5 b/l Skin temperature warm to warm proximal to distal b/l Hair growth present to digits Neurological: intact light touch/epicritic sensation b/l intact protective sensation no significant neurological deficits Dermatological: Nails 1-5 b/l appear normal. Webspaces clean and dry 1-4 b/l. Skin appears well hydrated and supple. good color, texture, turgor. No open lesions present. No callosities present. Musculoskeletal/Orthopaedic: Patient has pain to palpation of right lateral ankle along aftl. She does have pain with proximal squeeze of right lower leg Bustamante test produces plantarflexion b/l No laxity with anterior drawer Foot type is neutral structurally AJ ROM is full with knee extended and flexed 1st MPJ is full when loaded and no pain or crepitus are noted with ROM. MTJ, STJ are full and free of pain and crepitus. +5/5 muscle strength dorsiflexion, plantarflexion, inversion, eversion b/l Radiographs: 3 views right ankle ordered February 11, 2023: I have personally reviewed and interpreted these XR myself: no acute fracture ASSESSMENT: (S93.401A) Sprain of right ankle, unspecified ligament, initial encounter (primary encounter diagnosis) PLAN: 1. History and physical examination performed. 2. XR reviewed with patient and interpreted today 3. She does have pain to proximal tibia/fibula. Will get proximal tibial fibula xray. Suspect low risk for fracture 4. Suspect more soft-tissue sprain. Will place her in boot and can transition to ankle brace as pain improves. Will make referral to therapy. 5. Discussed risk of dvt while in boot. Discussed lovenox vs aspirin. She is allergic to aspirin. She is going to monitor for any signs and symptoms of calf pain or shortness of breath. If any pain develops, present to ed 6. F/u in 2 weeks. If no improvement, consider mri. Whit Puri DPM Podiatry [address] [facility] [address] Dept: [phone] Dept * Shawanda Boudreaux LPN - 02/11/2023 8:06 AM EDT AMB ROOMING INTAKE FLOWSHEET DATA Pain Pain Level: 9 Pain Location: Ankle-Right Description: Contraction, Cramping, Crushing, Cutting, Pulsating, Sharp, Stabbing/Not Incision Frequency: Continuous Patient presents with: Right Ankle - New, Pain, Ankle Pain Patient present office 2-3 weeks post fall after concrete step gave way. Patient states she felt anpop and ankle during fall was unable to stand following and ankle turned black and purple. Patient complains of pain 9/10 on pain scale. Patient present to [facility] following fall for evaluation. Patient present to office with crutches and splint to right ankle. Shawanda Boudreaux LPN documented in this encounterTrihealth07-05-2023 Instructions* Patient Instructions* Whit Puri - 02/11/2023 8:36 AM EDT Recommend boot immobilization until pain is tolerable and can tranition into lace up ankle brace. Cannot drive with boot on. If you develop any calf pain or shortness of breath, present to ED. Will make referral to physical therapy. Ice ankle x 10 minutes in cold water bath tub. Follow-up in 2-3 weeks documented in this encounterTrihealth07-05-2023 History of Present illness Narrative* Wilfrid Bustamante RT(Alise) - 02/11/2023 8:00 AM EDT Radiology Service Progress Note PATIENT NAME: Sri Chacon DATE OF SERVICE: February 11, 2023 TIME: 7:34 AM PATIENT IDENTITY VERIFICATION COMPLETED USING TWO (2) IDENTIFIERS: Name and Date of confirmedby patient verbally. FALL SCREENING: Has the patient had 2 falls in the last year or 1 fall with injury or currently using an Ambulatory Assistive Device (Walker, Cane, Wheelchair, Crutches, etc.)? Yes, Patient High Riskfor Falls What interventions were put in place to prevent falls during this visit? Instructed Patient to Callfor Help if Needed, Offered Assistance with Transfers/Clothing, and Increased Observations by Caregivers PATIENT GENDER DATA: Female. status: : No status: NO. PATIENT RELEVANT IMPLANT DATA REVIEWED: Yes RADIOLOGY DEPARTMENT: General X-ray: Exam(s) Completed: Lower Extremity X- Ray(s): Ankle, Right PERIPHERAL IV DATA: Not applicable SIGNED BY: RT Jeremy(Alise) February 11, 2023 7:34 AM documented in this encounterTrihealth05-31-2023 Miscellaneous Notes* Telephone Encounter - Sloane Holland RN - 01/07/2023 8:53 AM EDT I spoke with Sri she confirmed she is taking ZNS 100 mg qhs, two 50 mg tablets. she agreed to take ZNS 100 mg capsules and take 2 capsules (200 mg at night). Sloane Holland RN * Telephone Encounter - Alexandrea Salinas - 01/07/2023 8:48 AM EDT Patient returned call. Please call back [phone]. * Telephone Encounter - Iliana Christensen - 01/07/2023 8:04 AM EDT Patient returning nurse, she cn be reached at [phone] Please call before 1pm * Telephone Encounter - Sloane Holland RN - 01/06/2023 4:55 PM EDT Call was made to Sri , no answer. Message was left requesting a return call. Sloane Schmidt RN * Telephone Encounter - Uriel Orozco MD - 01/06/2023 2:07 PM EDT Her prior prescription for ZNS was to take 4 capsules at night. Please confirm that she was only taking 2 of the 50 mg capsules at night, rather than 4 of the 50 mg capsules. If she was really only taking 100 mg at night, then she should start using the 100 mg capsules and take 2 capsules (200 mg at night). Uriel Orozco MD * Telephone Encounter - Iliana Christensen - 01/02/2023 2:35 PM EDT Patient calling back regarding recommendation, she can be reached at [phone] * Telephone Encounter - Sloane Holland RN - 01/02/2023 12:18 PM EDT I spoke with Sri, she confirmed ZNS 50 mg tablets. She take 100 mg at night. She confirmed taking Lamictal 200/200 She prefers Lamictal She was informed Rx for vitamin D3 supplements, to take once per week for 12 weeks. Sloane Holland RN * Telephone Encounter - Sloane Holland RN - 01/02/2023 11:24 AM EDT Call was made to Sri , no answer. Message was left requesting a return call. Sloane Schmidt RN * Telephone Encounter - Sloane Holland RN - 01/01/2023 1:56 PM EDT I spoke with Sri, stated she is unable to talk, she will give the office a call later. Sloane Holland RN * Telephone Encounter - Uriel Orozco MD - 12/31/2022 10:29 AM EDT Bloodwork reviewed: Component Lamotrigine Zonisamide Vitamin D 25 Hydroxy Latest Ref Rng & Units 1.0 - 13.0 ug/mL 10.0 - 40.0 ug/mL 31.0 - 80.0 ng/mL 12/02/2021 2.0 <2.6 (L) 18.8 (L) 12/01/2022 12.9 <2.6 (L) 12/26/2022 <2.6 (L) 10.3 (L) Please call patient and confirm her zonisamide dose. Ask her to check the tablet size to make sure she is using 100 mg tablets and not 50 mg tablets. Assuming she is taking 400 mg of ZNS at night, ask her to increase ZNS to 100 mg in AM and 400 mg in PM. After two weeks, she should decrease LTG XR from 400 mg BID to 300 mg in AM and 400 mg in PM. I sent new prescriptions for LTG XR 300 mg tablets (confirm that she still wants brand-name) [facility] I also sent Rx for vitamin D3 supplements, to take once per week for 12 weeks. We should repeat levels in one month. Orders entered. She should call if she has more seizures. I would order video-EEG if she had more seizures. Uriel Orozco MD documented in this encounterTrihealth05-19-2023 NoteHNO ID: [id number] Author: Uriel Orozco MD Service: ? Author Type: Physician Type: Progress Notes Filed: 12/26/2022 8:12 PM Note Text: [facility] EPILEPSY CLINIC NOTE - RETURN VISIT Chief complaint: seizures LAST SEEN: 11/28/2022 INTERVAL HISTORY: At 11/28/2022 visit, patient had reported no seizures since 09/25/2022. Lamictal XR 400mg BID and ZNS 400mg QHS were continued. ASM levels and long EEG were ordered. Today, patient endorses that she had two seizures early 11/2022, on the same day. Does report that she is currently driving. Long EEG completed 12/25/22 - WNL Continues to struggle with constant migraine, following with Dr. Bean. She is taking: LTG 400 BID (8A, 3-4P) ZNS 400 qhs (1030P) -she did not take PM ZNS the night before 12/01 blood draw, because she thought we wanted her to hold her dose. No seizures since early 11/2022, same day. She does not always have a warning before her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 unclear, but had 3 seizures in one month; ZNS was increased Seen 12/09/2013 - no motor seizures but did have 3 auras over 3 months; ZNS was increased to 100 mg qhs Seen 06/02/2014 - two seizures in the 4 weeks prior; she had tunnel vision, then lightheadedness, then passed out; her 14yo daughter witnessed them; she was shaking for a few minutes, fell and was confused. She awoke on the floor. She attributed seizures to stress. No changes were made to AEDs. Current AEDs: LTG XR 400 mg BID ZNS 400 mg qHS Past AEDs: TPM (hives) The patient forgets a dose: daughter helps her remember Patient's preference regarding generic AEDs: prefers brand for LTG Side effects: none On exam, alert, oriented. Normal speech, language. Visual kat full. EOMs full. No significant nystagmus. Face symmetric. Hearing normal. No dysmetria. No pronator drift. Gait steady, including tandem. No Romberg sign. 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 Reports seizures every few months PLAN: 1. ASM levels 2. Long EEG 3. Continue current doses of medication 4. RTC in 1 month I spent a total of 20 minutes on the date of the service which included preparing to see the patient, [id number] patient care, completing clinical documentation, obtaining and/or reviewing separately obtained history, performing a medically appropriate examination, counseling and educating the pat ient/family/caregiver, and ordering medications, tests, or procedures. Chay Kendrick PA-C Attending Note I have personally performed a face to face assessment of the patient and have reviewed the XOCHITL note. I performed a substantive portion of the visit including all aspects of the interval history, assessment and plan. Briefly, 47yo RH woman with possible epilepsy since 2007, with infrequent motor seizures in the past. I last saw her in 2015; she is now reporting seizures every 2-3 months, on LTG and ZNS. Will check levels, long EEG with f/u in 4-6 weeks. Would proceed to inpatient video-EEG if long EEG is normal. Uriel Orozco MD Epilepsy Staff EPILEPSY CLASSIFICATION SUMMARY Epilepsy Classification: Focal Epilepsy (possible) Onset Age: 32 years (2007) Handedness: Right Seizure Classification: Aura -> Dialeptic seizure -> Generalized motor seizure Etiology: Unknown Risk Factors: TBI in 1993 Family History: no seizures Seizure Frequency: Persistent (>_ 1 per 6 months, less than one daily) Details: 1-2/month EEG (04/21/2012, [facility]): Normal Routine EEG (07/28/2013, [facility]): Normal MRI (01/17/2010, [facility]): Normal MRI brain wo (07/28/2013): Normal MRI brain wwo (03/26/2015): unremarkable MRI brain (10/31/2020, [facility]): Normal Associated Medical Conditions: Migraine, Vasovagal syncope, Atrial fibrillation Previous Neurosurgery: None Previous Antiepileptic Treatments: (include dates, maximum dose) - Topiramate - Lamotrigine - Zonisamide documented in this encounterTrihealth04-12-2023 NoteHNO ID: [id number] Author: Yesica Bean MD Service: ? Author Type: Physician Type: Progress Notes Filed: 12/17/2022 9:12 PM Note Text: PROGRESS NOTE-HEADACHE MEDICINE SERVICE DATE: 11/19/2022 Location: [facility] Participants: patient, her mother and provider ASSESSMENT: Chronic Migraine without aura Epilepsy [facility] RECOMMENDATIONS: 1. Dr. Ludwig to re-assess for TAURUS stimulator 2. Sphenopalatine ganglion block 3. Migraine prevention: - trial Qulipta 60 mg 4. Migraine abortive: - Decrease Excedrin use to 10 days a month. - Trial of Benadryl 50 mg IM. 5. migraine surgery again discussed 4. Follow up in 2 months HPI: This is a follow up. Last seen 14 months ago. Daily migraine for the last 3 years.Excedrin daily. Vyepti worsen her mood and did not help. Migraine characteristics: see note from March 19, 2021. Previous therapies: 1. Toradol IM helps, TAURUS block helps for 2 weeks 2. she was evalauted by Dr. Ludwig and was a candidate for TAURUS stimulator but never submitted(2014) 3. Botox: 5 cycles of Botox therapy with me, she says that the effect lasted for 1 month each time, with more than 50% reduction of her migraines during that month. But then the effect wore off. Last Botox was on 10/23/2015 4. Infusion therapy: infusions here for 2 days. Effect lasted for 2 months, then she was back to daily migraines.Most recent infusion therapy in 2019, did not help. 5. ED Migraine cocktail: IV works Dilaudid, Nalbuphine, usuallly to [facility] since it is the closest to home 6. Emgality: not on formulary 7. Zonisamide 8. Verapamil 9. Pindolol 10.Ajovy for 3 months- no help 11.Periactin- not helpful 12.Aimovig 70 mg- no help 13.Cannabinoid products- no help 14.Nurtec- ineffective 15. Her insurance will not pay the [place] inpatient headache program. 16. Vyepti: 2 doses. Current Medication review: 1. Zonisamide for seizures 2. Lamictal for seizures Current Outpatient Medications Medication Sig LAMICTAL XR 200 mg 24 hr tablet Take 2 tablets by mouth twice daily. zonisamide (ZONEGRAN) 100 mg capsule Take 4 capsules by mouth once daily. atogepant (QULIPTA) 60 mg tablet Take 1 tablet (60 mg) by mouth once daily. (Patient not taking: Reported on 11/28/2022) lidocaine (XYLOCAINE) 5 % ointment Apply to affected area three times daily. levothyroxine (SYNTHROID) 75 mcg tablet Take 1 tablet by mouth once daily. Take on empty stomach. For Thyroid No current facility-administered medications for this visit. PAST MEDICAL HISTORY Diagnosis Date Calculus of kidney 07/03/2006 Calculus of ureter 03/16/2008 Convulsions (HCC) 02/01/2013 Depression Essential hypertension 01/01/2018 Gallstone 12/25/2017 Hydronephrosis 03/16/2008 Hypothyroidism IBS (irritable bowel syndrome) Lactose intolerance in adult 01/21/2018 Migraine 02/01/2013 Nonrheumatic mitral (valve) prolapse 06/15/2017 Seizure disorder (HCC) last 04/2021 Traumatic brain injury (HCC) Unspecified asthma(493.90) Unspecified ectopic without intrauterine Ectopic Vitals: BP 109/75 Pulse 79 Ht 154.9 cm (5' 1 ) Wt 80.7 kg (178 lb) BMI 33.63 kg/m? ALLERGIES Asa (Salicylates) Swelling Benadryl (Diphenhyd* Mental Status Change Codeine Hives Comment:swelling-airway/face Morphine Swelling Penicillin G Hives, Swelling Phenergan (Prometha* Intolerance Comment:mental status change Seafood [Other] Anaphylaxis IMAGING 1. MRI brain 2013 was normal 2. 10/2018 CT head: normal 3. Oct 31 2020 MRI BRAIN WO/W IVCON -Normal Of the 30 minute long appointment visit, I spent at least 50% of the [id number] time in counseling, explanation of diagnosis, planning of further management, and answering all questions. Yesica Bean MD [facility]04-12-2023 History of Present illness Narrative* Yesica Bean MD - 11/19/2022 3:48 PM EDT PROGRESS NOTE-HEADACHE MEDICINE SERVICE DATE: 11/19/2022 Location: [facility] Participants: patient, her mother and provider ASSESSMENT: Chronic Migraine without aura Epilepsy [facility] RECOMMENDATIONS: 1. Dr. Ludwig to re-assess for TAURUS stimulator 2. Sphenopalatine ganglion block 3. Migraine prevention: - trial Qulipta 60 mg 4. Migraine abortive: - Decrease Excedrin use to 10 days a month. - Trial of Benadryl 50 mg IM. 5. migraine surgery again discussed 4. Follow up in 2 months HPI: This is a follow up. Last seen 14 months ago. Daily migraine for the last 3 years.Excedrin daily. Vyepti worsen her mood and did not help. Migraine characteristics: see note from March 19, 2021. Previous therapies: 1. Toradol IM helps, TAURUS block helps for 2 weeks 2. she was evalauted by Dr. Ludwig and was a candidate for TAURUS stimulator but never submitted(2014) 3. Botox: 5 cycles of Botox therapy with me, she says that the effect lasted for 1 month each time,with more than 50% reduction of her migraines during that month. But then the effect wore off. LastBotox was on 10/23/2015 4. Infusion therapy: infusions here for 2 days. Effect lasted for 2 months, then she was back to daily migraines.Most recent infusion therapy in 2019, did not help. 5. ED Migraine cocktail: IV works Dilaudid, Nalbuphine, usuallly to [facility] since it is the closest to home 6. Emgality: not on formulary 7. Zonisamide 8. Verapamil 9. Pindolol 10.Ajovy for 3 months- no help 11.Periactin- not helpful 12.Aimovig 70 mg- no help 13.Cannabinoid products- no help 14.Nurtec- ineffective 15. Her insurance will not pay the [place] inpatient headache program. 16. Vyepti: 2 doses. Current Medication review: 1. Zonisamide for seizures 2. Lamictal for seizures Current Outpatient Medications Medication Sig LAMICTAL XR 200 mg 24 hr tablet Take 2 tablets by mouth twice daily. zonisamide (ZONEGRAN) 100 mg capsule Take 4 capsules by mouth once daily. atogepant (QULIPTA) 60 mg tablet Take 1 tablet (60 mg) by mouth once daily. (Patient not taking: Reported on 11/28/2022) lidocaine (XYLOCAINE) 5 % ointment Apply to affected area three times daily. levothyroxine (SYNTHROID) 75 mcg tablet Take 1 tablet by mouth once daily. Take on empty stomach. For Thyroid No current facility-administered medications for this visit. PAST MEDICAL HISTORY Diagnosis Date Calculus of kidney 07/03/2006 Calculus of ureter 03/16/2008 Convulsions (HCC) 02/01/2013 Depression Essential hypertension 01/01/2018 Gallstone 12/25/2017 Hydronephrosis 03/16/2008 Hypothyroidism IBS (irritable bowel syndrome) Lactose intolerance in adult 01/21/2018 Migraine 02/01/2013 Nonrheumatic mitral (valve) prolapse 06/15/2017 Seizure disorder (HCC) last 04/2021 Traumatic brain injury (HCC) Unspecified asthma(493.90) Unspecified ectopic without intrauterine Ectopic Vitals: BP 109/75 Pulse 79 Ht 154.9 cm (5' 1 ) Wt 80.7 kg (178 lb) BMI 33.63 kg/m ALLERGIES Asa (Salicylates) Swelling Benadryl (Diphenhyd* Mental Status Change Codeine Hives Comment:swelling-airway/face Morphine Swelling Penicillin G Hives, Swelling Phenergan (Prometha* Intolerance Comment:mental status change Seafood [Other] Anaphylaxis IMAGING 1. MRI brain 2013 was normal 2. 10/2018 CT head: normal 3. Oct 31 2020 MRI BRAIN WO/W IVCON -Normal Of the 30 minute long appointment visit, I spent at least 50% of the [id number] time in counseling, explanation of diagnosis, planning of further management, and answering all questions. Yesica Bean MD [facility] documented in this encounterTrihealth02-17-2023 Miscellaneous Notes* Telephone Encounter - Sloane Holland RN - 09/26/2022 2:19 PM EST I spoke with Sri, she was transferred to schedulers for an appointment. Thanks Sloane GAONA * Telephone Encounter - Uriel Orozco MD - 09/25/2022 4:26 PM EST She should schedule a return visit. Uriel Orozco MD * Telephone Encounter - Sloane Holland RN - 09/25/2022 1:08 PM EST 09/10/2021 KRISTEN ASSESSMENT: Sri Chacon is a 46 year old RH female with history of seizures, CAD, arthritis, chronic headaches.Continues to report seizures and feeling in a brain fog. Smiling and animated on video. Reports continued chronic headaches and her mind is racing all of the time. No side effects. Discussed trying an increase in ZNS for which she agreed.. PLAN: - LABS: ZNS, cmp, ltg - Medications: -increase ZNS to 300mg QHS for two weeks -If doing well, may increase ZNS to 400mg QHS and continue at this dose. RFS adjusted. -continue with Lamictal ER 400mg BID. -continue with all other daily medications. -Follow all seizure precautions. -Should not be driving with active seizures. - Consults: none - Follow up: 1 month f/u on med increase with me I spoke with Sri, stated she had two seizure on 09/24/2022. Sri stated she does not remember anything. Seizure witnessed by her daughter. Both seizure 3 PM & 10 PM patient experienced shaking. Triggers: unknown, denies miss doses of medication, lack of sleep or illness. Denies incontinence of urine or tongue biting. Last seizure 06/2022 Per Sri ZNS 400 mg qhs LTG 400/400 Patient transferred to schedulers Sloane Holland RN * Telephone Encounter - Charity Rahman - 09/25/2022 12:01 PM EST Seizure activity: Name of Caller : Sri Chacon Relationship to patient: Self Contact phone number: [phone] Date of seizure: 09/24/22 Duration: 6 minutes Back to Baseline (Yes/No): yes Emergency treatment needed (Yes/No): no Patient of Dr. Orozco documented in this encounterTrihealth02-16-2023 NoteHNO ID: [id number] Author: Precious Vargas PA-C Service: ? Author Type: Physician [employer] Type: Progress Notes Filed: 09/25/2022 11:14 AM Note Text: This note was created using frentingter. Subjective Sri Chacon is a 47 year old female. HPI Patient presents with a chief complaint of headache. She has a history of chronic daily migraines and this feels similar. She denies any thunderclap onset. No weakness numbness or tingling. No blurred or double vision. She states she typically does get auras before her migraines. She is treated with botox for her migraines. She also takes excedrin. She also has a history of seizures. She did have a seizure yesterday that was witnessed at her home. No injury from this. She is on Lamictal and Zonegran per neurology. She states she had not had a seizure in about 2 months. Denies any fever, cough or congestion. No sore throat. No urinary complaints. She needed a note for work so came in for evaluation. Review of Systems Constitutional: Negative. HENT: Negative. Respiratory: Negative. Cardiovascular: Negative. Gastrointestinal: Negative. Genitourinary: Negative. Musculoskeletal: Negative. Skin: Negative. Neurological: Positive for seizures and headaches. Negative for dizziness, syncope, facial asymmetry, speech difficulty, weakness, light-headedness and numbness. PAST MEDICAL HISTORY Diagnosis Date Calculus of kidney 07/03/2006 Calculus of ureter 03/16/2008 Convulsions ([facility]) 02/01/2013 Depression Essential hypertension 01/01/2018 Gallstone 12/25/2017 Hydronephrosis 03/16/2008 Hypothyroidism IBS (irritable bowel syndrome) Lactose intolerance in adult 01/21/2018 Migraine 02/01/2013 Nonrheumatic mitral (valve) prolapse 06/15/2017 Seizure disorder ([facility]) last 04/2021 Traumatic brain injury Unspecified asthma(493.90) Unspecified ectopic without intrauterine Ectopic Current Outpatient Medications Medication Sig Dispense Refill zonisamide (ZONEGRAN) 50 mg capsule Take 4 capsules by mouth twice daily. 240 capsule 1 LAMICTAL XR 200 mg 24 hr tablet Take 2 tablets by mouth twice daily. 360 tablet 1 lidocaine (XYLOCAINE) 5 % ointment Apply to affected area three times daily. 60 g 3 ARIPiprazole (ABILIFY) 2 mg tablet levothyroxine (SYNTHROID) 75 mcg tablet Take 1 tablet by mouth once daily. Take on empty stomach. For Thyroid 30 tablet 5 cholecalciferol, Vitamin D3, (VITAMIN D3) 1,250 mcg (50,000 unit) cap capsule Take 1 capsule by mouth one time a week. 4 capsule 4 No current facility-administered medications for this visit. PAST SURGICAL HISTORY Procedure Laterality Date CYSTOSCOPY,URETEROSCOPY,LITHOTRIPSY DILATION AND CURETTAGE DXAND/THER NONOBSTETRIC 1995 Dilation AND curettage PAST SURGICAL HISTORY OF 1999 C section PAST SURGICAL HISTORY OF 2009 heart cath PAST SURGICAL HISTORY OF 1991 right knee surgery with muscle and scar tissue removal post fx PAST SURGICAL HISTORY OF Right hand marley Dr. Nguyen PAST SURGICAL HISTORY OF Right 2020 right thumb CMC arthroplasty TOTAL ABDOMINAL HYSTERECT W/WO RMVL TUBE OVARY 01/2005 Hysterectomy, [facility] FAMILY HISTORY Problem Relation Age of Onset Arthritis Mother Cataract Mother other (pacemaker, defibrillator) Mother other (mitral valve) Father Cataract Maternal Grandmother Social History Tobacco Use Smoking status: Never Smokeless tobacco: Never Vaping Use Vaping Use: Never used Substance Use Topics Alcohol use: Yes Comment: rare Drug use: No Objective BP 136/84 Pulse 74 Temp 37.1 ?C (98.7 ?F) (Tympanic) Resp 18 SpO2 99% Physical Exam Vitals reviewed. Constitutional: Appearance: Normal appearance. HENT: Head: Normocephalic and atraumatic. Right Ear: Tympanic membrane, ear canal and external ear normal. Left Ear: Tympanic membrane, ear canal and external ear normal. Nose: Nose normal. Mouth/Throat: Mouth: Mucous membranes are moist. Pharynx: Oropharynx is clear. Cardiovascular: Rate and Rhythm: Normal rate and regular rhythm. Heart sounds: Normal heart sounds. Pulmonary: Effort: Pulmonary effort is normal. Breath sounds: Normal breath sounds. Musculoskeletal: Cervical back: Neck supple. Skin: General: Skin is warm and dry. Neurological: Mental Status: She is alert and oriented to person, place, and time. GCS: GCS eye subscore is 4. GCS verbal subscore is 5. GCS motor subscore is 6. Cranial Nerves: Cranial nerves 2-12 are intact. Sensory: Sensation is intact. Motor: Motor function is intact. Coordination: Romberg sign negative. Goilzs-Tsxb-Omhsoa Test normal. Gait: Gait is intact. Assessment and Plan ASSESSMENT/PLAN: 1. Chronic migraine with aura - ICD9: 346.00, ICD10: G43.109 (primary diagnosis) Patient states Toradol has helped her in the past for headaches. She was given an injection here. No red flag symptoms today. Recommended follow-u (more content not included)...[facility]02-16-2023 History of Present illness Narrative* Precious Vargas PA-C - 09/25/2022 11:08 AM EST This note was created using NoteWriter. Subjective Sri Chacon is a 47 year old female. HPI Patient presents with a chief complaint of headache. She has a history of chronic daily migraines and this feels similar. She denies any thunderclap onset. No weakness numbness or tingling. No blurred or double vision. She states she typically does get auras before her migraines. She is treated with botox for her migraines. She also takes excedrin. She also has a history of seizures. She did havea seizure yesterday that was witnessed at her home. No injury from this. She is on Lamictal and Zonegran per neurology. She states she had not had a seizure in about 2 months. Denies any fever, coughor congestion. No sore throat. No urinary complaints. She needed a note for work so came in for eval uation. Review of Systems Constitutional: Negative. HENT: Negative. Respiratory: Negative. Cardiovascular: Negative. Gastrointestinal: Negative. Genitourinary: Negative. Musculoskeletal: Negative. Skin: Negative. Neurological: Positive for seizures and headaches. Negative for dizziness, syncope, facial asymmetry, speech difficulty, weakness, light-headedness and numbness. PAST MEDICAL HISTORY Diagnosis Date Calculus of kidney 07/03/2006 Calculus of ureter 03/16/2008 Convulsions ([facility]) 02/01/2013 Depression Essential hypertension 01/01/2018 Gallstone 12/25/2017 Hydronephrosis 03/16/2008 Hypothyroidism IBS (irritable bowel syndrome) Lactose intolerance in adult 01/21/2018 Migraine 02/01/2013 Nonrheumatic mitral (valve) prolapse 06/15/2017 Seizure disorder ([facility]) last 04/2021 Traumatic brain injury Unspecified asthma(493.90) Unspecified ectopic without intrauterine Ectopic Current Outpatient Medications Medication Sig Dispense Refill zonisamide (ZONEGRAN) 50 mg capsule Take 4 capsules by mouth twice daily. 240 capsule 1 LAMICTAL XR 200 mg 24 hr tablet Take 2 tablets by mouth twice daily. 360 tablet 1 lidocaine (XYLOCAINE) 5 % ointment Apply to affected area three times daily. 60 g 3 ARIPiprazole (ABILIFY) 2 mg tablet levothyroxine (SYNTHROID) 75 mcg tablet Take 1 tablet by mouth once daily. Take on empty stomach. For Thyroid 30 tablet 5 cholecalciferol, Vitamin D3, (VITAMIN D3) 1,250 mcg (50,000 unit) cap capsule Take 1 capsule by mouth one time a week. 4 capsule 4 No current facility-administered medications for this visit. PAST SURGICAL HISTORY Procedure Laterality Date CYSTOSCOPY,URETEROSCOPY,LITHOTRIPSY DILATION & CURETTAGE DX&/THER NONOBSTETRIC 1995 Dilation & curettage PAST SURGICAL HISTORY OF 1999 C section PAST SURGICAL HISTORY OF 2009 heart cath PAST SURGICAL HISTORY OF 1991 right knee surgery with muscle and scar tissue removal post fx PAST SURGICAL HISTORY OF Right hand marley Dr. Nguyen PAST SURGICAL HISTORY OF Right 2020 right thumb CMC arthroplasty TOTAL ABDOMINAL HYSTERECT W/WO RMVL TUBE OVARY 01/2005 Hysterectomy, [facility] FAMILY HISTORY Problem Relation Age of Onset Arthritis Mother Cataract Mother other (pacemaker, defibrillator) Mother other (mitral valve) Father Cataract Maternal Grandmother Social History Tobacco Use Smoking status: Never Smokeless tobacco: Never Vaping Use Vaping Use: Never used Substance Use Topics Alcohol use: Yes Comment: rare Drug use: No Objective BP 136/84 Pulse 74 Temp 37.1 C (98.7 F) (Tympanic) Resp 18 SpO2 99% Physical Exam Vitals reviewed. Constitutional: Appearance: Normal appearance. HENT: Head: Normocephalic and atraumatic. Right Ear: Tympanic membrane, ear canal and external ear normal. Left Ear: Tympanic membrane, ear canal and external ear normal. Nose: Nose normal. Mouth/Throat: Mouth: Mucous membranes are moist. Pharynx: Oropharynx is clear. Cardiovascular: Rate and Rhythm: Normal rate and regular rhythm. Heart sounds: Normal heart sounds. Pulmonary: Effort: Pulmonary effort is normal. Breath sounds: Normal breath sounds. Musculoskeletal: Cervical back: Neck supple. Skin: General: Skin is warm and dry. Neurological: Mental Status: She is alert and oriented to person, place, and time. GCS: GCS eye subscore is 4. GCS verbal subscore is 5. GCS motor subscore is 6. Cranial Nerves: Cranial nerves 2-12 are intact. Sensory: Sensation is intact. Motor: Motor function is intact. Coordination: Romberg sign negative. Hjhfny-Ouqv-Vpriyy Test normal. Gait: Gait is intact. Assessment and Plan ASSESSMENT/PLAN: 1. Chronic migraine with aura - ICD9: 346.00, ICD10: G43.109 (primary diagnosis) Patient states Toradol has helped her in the past for headaches. She was given an injection here. No red flag symptoms today. Recommended follow-up with neurology. - KETOROLAC 60 MG/2 ML INTRAMUSCULAR SOLUTION 2. Seizure disorder (HCC) - ICD9: 345.90, ICD10: G40.909 Patient states she has chronic seizure disorder and had a seizure yesterday. No injury from this. Seizure lasted 5 to 6 minutes. She states she had a grand mal seizure, which is typically what she has chronically.. She has been taking her medications as prescribed. Recommended she call neurology today to let them know she did have a seizure. Discussed if she has another one would recommend being seen in the emergency department. She was agreeable with plan. Precious Vargas PA-C documented in this encounterTrihealth01-03-2023 Miscellaneous Notes* Telephone Encounter - Sloane Holland RN - 08/12/2022 11:04 AM EST I spoke with the pharmacy manager at [facility], she stated ZNS 100 mg is on back order until september. Stated ZNS 50 mg is available, requesting a new RX. Sloane Holland RN * Telephone Encounter - Jesica Mayorga - 08/12/2022 9:49 AM EST Medication Concern Person Calling [facility] Name of medication Zonisamide 100mg Concern with medication med b/o; available in only [address] Orozco documented in this encounterTrihealth01-02-2023 Miscellaneous Notes* Telephone Encounter - Daniel Shaw APRN.GEMMA - 08/11/2022 11:24 PM EST The following approved medication requests have been transmitted electronically. Requested Prescriptions Signed Prescriptions Disp Refills zonisamide (ZONEGRAN) 100 mg capsule 360 capsule 1 Sig: Take two pills twice a day(400mg) Authorizing Provider: DANIEL SHAW LAMICTAL XR 200 mg 24 hr tablet 360 tablet 1 Sig: Take 2 tablets by mouth twice daily. Authorizing Provider: DANIEL SHAW APRN.CNP documented in this encounterTrihealth09-27-2022 Instructions* Patient Instructions* Steph Shaw APRN.CNP - 05/06/2022 11:07 AM EDT R.I.C.E. The general care of your injury includes the following: Resting, Icing, Compressing and Elevating the injured area. Remember this as RICE. REST: Limit the use of the injured body part. ICE: By applying ice to the affected area, swelling and pain can be reduced. Place some ice cubes in a re-sealable (Ziploc) bag and add some water. Put a thin washcloth between the bag and your skin.Apply the ice bag to the area for at least 20 minutes. Do this at least 4 times per day. Using the ice for longer times and more frequently is OK. NEVER APPLY ICE DIRECTLY TO THE SKIN. COMPRESS: Compression means to apply pressure around the injured area such as with a splint, cast or an lashaun bandage. Compression decreases swelling and improves comfort. Compression should be tight enough to relieve swelling but not so tight as to decrease circulation. Increasing pain, numbness, tingling, or change in skin color, are all signs of decreased circulation. ELEVATE: Elevate the injured part. For example, elevate your foot by placing it on a chair while sitting, or propping it up on pillows when lying down. documented in this encounterTrihealth09-27-2022 History of Present illness Narrative* Steph Shaw APRN.CNP - 05/06/2022 10:34 AM EDT Images from the original note were not included. This note was created using sougouriter. Subjective Sri Chacon is a 46 year old female. 46 year old female with [facility] migraines, HTN and asthma presents with complaints of right hand and thumb pain. Right hand Chronic at baseline, but has had exacerbation States over the past week she has had pain with lifting. She works at [employer] and states that lifting 24 and 48 packs of water bottles at a time She has felt a pop. +twinges of pain Denies known trauma or injury +diffuse pain +swelling at the thumb Denies weakness. States that she had surgery on right hand, July [address] Go, States that she had surgery in 2016 after trauma, hand went through [facility]. She recently returned to work in March. She is being seen next , for the second time in pain management to establish care. The history is provided by the patient. No language and literature division chair was used. Musculoskeletal Problem This is a chronic problem. The current episode started in the past 7 days. The problem occurs constantly. The problem has been unchanged. Pertinent negatives include no abdominal pain, anorexia, arthralgias, change in bowel habit, chest pain, chills, congestion, coughing, diaphoresis, fatigue, fever, headaches, joint swelling, myalgias, nausea, neck pain, numbness, rash, sore throat, swollen glands, urinary symptoms, vertigo, visual change, vomiting or weakness. Exacerbated by: movement, touching, and use of hand. She has tried NSAIDs and rest for the symptoms. The treatment provided no relief. PAST MEDICAL HISTORY Diagnosis Date Calculus of kidney 07/03/2006 Calculus of ureter 03/16/2008 Convulsions ([facility]) 02/01/2013 Depression Essential hypertension 01/01/2018 Gallstone 12/25/2017 Hydronephrosis 03/16/2008 Hypothyroidism IBS (irritable bowel syndrome) Lactose intolerance in adult 01/21/2018 Migraine 02/01/2013 Nonrheumatic mitral (valve) prolapse 06/15/2017 Seizure disorder ([facility]) last 04/2021 Traumatic brain injury ([facility]) Unspecified asthma(493.90) Unspecified ectopic without intrauterine Ectopic PAST SURGICAL HISTORY Procedure Laterality Date CYSTOSCOPY,URETEROSCOPY,LITHOTRIPSY DILATION & CURETTAGE DX&/THER NONOBSTETRIC 1995 Dilation & curettage PAST SURGICAL HISTORY OF 1999 C section PAST SURGICAL HISTORY OF 2009 heart cath PAST SURGICAL HISTORY OF 1991 right knee surgery with muscle and scar tissue removal post fx PAST SURGICAL HISTORY OF Right hand marley Dr. Nguyen PAST SURGICAL HISTORY OF Right 2020 right thumb CMC arthroplasty TOTAL ABDOMINAL HYSTERECT W/WO RMVL TUBE OVARY 01/2005 Hysterectomy, ALLY ALLERGIES Asa [Salicylates], Aspirin, Benadryl [Diphenhydramine Hcl], Codeine, Morphine, PenicillinG, Phenergan [Promethazine Hcl], and Shellfish Derived MEDICATIONS zonisamide (ZONEGRAN) 100 mg capsule Take three pills(300mg) at bedtime for 2 weeks. Then increase to two pills twice a day(400mg) cholecalciferol, Vitamin D3, (VITAMIN D3) 1,250 mcg (50,000 unit) cap capsule Take 1 capsule by mouth one time a week. predniSONE (DELTASONE) 10 mg tablet Take 4 tabs daily for 3 days, then 2 tabs daily for 3 days, then 1 tab daily for 3 days with food. lidocaine (XYLOCAINE) 5 % ointment Apply to affected area three times daily. ARIPiprazole (ABILIFY) 2 mg tablet levothyroxine (SYNTHROID) 75 mcg tablet Take 1 tablet by mouth once daily. Take on empty stomach. For Thyroid diphenhydrAMINE (BENADRYL) 50 mg/mL injection Inject 50 mg intramuscularly every 6 hours as needed (at migraine onset). Syringe with Needle, Disp, 3 mL 23 x 1 1 Each as needed. LAMICTAL XR 200 mg 24 hr tablet Take 2 tablets by mouth twice daily. FAMILY HISTORY Problem Relation Age of Onset Arthritis Mother Cataract Mother other (pacemaker, defibrillator) Mother other (mitral valve) Father Cataract Maternal Grandmother Social History Tobacco Use Smoking status: Never Smokeless tobacco: Never Vaping Use Vaping Use: Never used Substance Use Topics Alcohol use: Yes Comment: rare Drug use: No Review of Systems Constitutional: Negative for chills, diaphoresis, fatigue and fever. HENT: Negative for congestion and sore throat. Eyes: Negative for pain, discharge, redness and itching. Respiratory: Negative for apnea, cough, choking and chest tightness. Cardiovascular: Negative for chest pain, palpitations and leg swelling. Gastrointestinal: Negative for abdominal pain, anorexia, change in bowel habit, nausea and vomiting. Musculoskeletal: Negative for arthralgias, joint swelling, myalgias and neck pain. Skin: Negative for color change, pallor and rash. Allergic/Immunologic: Negative for environmental allergies, food allergies and immunocompromised state. Neurological: Negative for vertigo, weakness, numbness and headaches. Hematological: Negative for adenopathy. Does not bruise/bleed easily. Psychiatric/Behavioral: Negative for agitation and behavioral problems. Objective BP 128/76 Pulse 76 Temp 36.4 C (97.6 F) Resp 16 Wt 80 kg (176 lb 6.4 oz) SpO2 98% BMI 33.33 kg/m Physical Exam Vitals and nursing note reviewed. Constitutional: General: She is not in acute distress. Appearance: Normal appearance. She is normal weight. She is not ill-appearing, toxic-appearing or diaphoretic. HENT: Head: Normocephalic and atraumatic. Right Ear: Ear canal and external ear normal. Left Ear: Ear canal and external ear normal. Nose: Nose normal. No congestion or rhinorrhea. Mouth/Throat: Mouth: Mucous membranes are moist. Pharynx: No oropharyngeal exudate or posterior oropharyngeal erythema. Eyes: General: Right eye: No discharge. Left eye: No discharge. Extraocular Movements: Extraocular movements intact. Conjunctiva/sclera: Conjunctivae normal. Pupils: Pupils are equal, round, and reactive to light. Cardiovascular: Rate and Rhythm: Normal rate and regular rhythm. Pulses: Normal pulses. Heart sounds: Normal heart sounds. No murmur heard. No friction rub. Pulmonary: Effort: Pulmonary effort is normal. No respiratory distress. Breath sounds: Normal breath sounds. No stridor. No wheezing, rhonchi or rales. Chest: Chest wall: No tenderness. Abdominal: General: Abdomen is flat. There is no distension. Palpations: Abdomen is soft. There is no mass. Tenderness: There is no abdominal tenderness. There is no right CVA tenderness, left CVA tenderness, guarding or rebound. Hernia: No hernia is present. Musculoskeletal: General: No swelling, tenderness, deformity or signs of injury. Normal range of motion. Hands: Cervical back: Normal range of motion and neck supple. No rigidity. Right lower leg: No edema. Left lower leg: No edema. Lymphadenopathy: Cervical: No cervical adenopathy. Skin: General: Skin is warm and dry. Capillary Refill: Capillary refill takes less than 2 seconds. Coloration: Skin is not jaundiced or pale. Findings: No bruising, erythema, lesion or rash. Neurological: General: No focal deficit present. Mental Status: She is alert and oriented to person, place, and time. Cranial Nerves: No cranial nerve deficit. Sensory: No sensory deficit. Motor: No weakness. Coordination: Coordination normal. Gait: Gait normal. Psychiatric: Mood and Affect: Mood normal. Behavior: Behavior normal. Thought Content: Thought content normal. Judgment: Judgment normal. Assessment and Plan ASSESSMENT/PLAN: 1. Right hand pain - ICD9: 729.5, ICD10: M79.641 Acute on chronic exacerbation Denies known trauma or injury Has had surgery in 2017 art and again last year Currently enrolling in pain management. - XR HAND GENERAL 3V PA/LAT/OBL RIGHT-obtained and no acute process - KETOROLAC 60 MG/2 ML INTRAMUSCULAR SOLUTION=administered here in clinic RX Prednisone RICE therapy Patient was provided with an off the shelf thumb spica splint Steph Shaw APRN.SAND CONTROL WORKER documented in this encounterTrihealth07-21-2022 History of Present illness Narrative* RT Cristóbal(R) - 02/27/2022 10:00 AM EDT Radiology Service Progress Note PATIENT NAME: Sri Chacon DATE OF SERVICE: February 27, 2022 TIME: 10:02 AM PATIENT IDENTITY VERIFICATION COMPLETED USING TWO (2) IDENTIFIERS: Name and Date of confirmedby patient verbally. FALL SCREENING: Has the patient had 2 falls in the last year or 1 fall with injury or currently using an Ambulatory Assistive Device (Walker, Cane, Wheelchair, Crutches, etc.)? No PATIENT GENDER DATA: Female. status: : No status: NO. PATIENT RELEVANT IMPLANT DATA REVIEWED: Not Applicable RADIOLOGY DEPARTMENT: General X-ray: Exam(s) Completed: Spine X-Ray(s): Cervical AP / LAT / OBL / FLEX-EXT PERIPHERAL IV DATA: Not applicable SIGNED BY: RT Cristóbal(R) February 27, 2022 10:02 AM documented in this encounterTrihealth07-21-2022 History of Present illness Narrative* Jimena Ashley APRN.SAND CONTROL WORKER - 02/27/2022 8:57 AM EDT [facility] Today's Date: 02/27/2022 Last Visit: N/A Name: Sri Chacon : 1975 Purpose: New Patient Evaluation Chief complaint: RIGHT thumb and hand pain Interval History: N/A Initial HPI: (Obtained on 02/27/2022) Sri Chacon is a 46 year old year-old female; PMH significantfor epilepsy, Migraine, HTN, MVP, depression, hx of suicidal ideation, asthma; who presents having been referred by Austin Go Jr., for evaluation and management of the above-mentioned chief complaint. This has been present for the past 5 years. The onset of symptoms was sudden onset and was with associated trauma. In 2017 patient injured herself with a service dismantler and has reported N/T since the injection. Patient underwent RIGHT Thumb CMC arthroplasty on 07/25/[address] Go. 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 Treatments to date include the following: Medications (See below), Surgery (See below), Modalities (eg. Heat, Ice), Physical Therapy and Occupational Therapy. Pain Description: o Timing: constant o Character: Burning, Throbbing, Spasms, Numb, Sharp, Stinging, Shooting, Cramps, Aching and Dull o Primary Location: RIGHT thumb, wrist and hand, neck pain o Radiation: goes every where, up to my elbow o Exacerbating factors: lifting and physical activity o Relieving factors: Nothing o Interferes with: physical activity, work and lifting o The patient reports hx of insomnia, states I can stay up for days, I sleep about 1 hour for 4 days o The patient denies difficulty with bowel or bladder control, unintentional weight loss and fevers, chills, or night sweats. o Complains of weakness in the RIGHT hand Current Status: INTAKE PAIN ASSESSMENT 01/07/2022 02/27/2022 Are you having pain associated with your visit today? Yes, Provider notified Yes, Provider notified Pain Scales Verbal (Numeric Rating or Visual Analog Scale) Verbal (Numeric Rating or Visual Analog Scale) Pain Level 1 9 Pain Location Throat Hand-Right Description Aching Stabbing;Throbbing Duration Amount of Time 1 8 Duration Units Days Months Frequency Continuous Continuous Intervention/Comfort measure Medication Relaxation Comments - Nothing helps Pain Assessment (RN/CORPORATE SECURITIES RESEARCH ANALYST) - - Current Pain Medications: o Opioids: o NSAIDS: o Anti-depressants: Abilify, lamictal, trazodone o Anti-convulsants: Zonegran o Muscle relaxants: o Others: Analgesia: not adequate Current Anti-Coagulant Use: No PAST Pain Medications (for the chief complaint(s)): Opioids: Percocet (Oxycodone) NSAIDS: Motrin (Ibuprofen), Naprosyn (Naproxen) and Voltaren (Diclofenac) Anti-depressants: Cymbalta Anti-convulsants: Neurontin (Gabapentin), Lyrica (Pregabalin), Cymbalta (Duloxetine) and Topamax (Topiramate) Muscle Relaxants: none Others: Aspercreme, biofreeze Allergies: ALLERGIES Allergen Reactions Asa [Salicylates] Swelling Aspirin Rash Benadryl [Diphenhyd* Mental Status Change Codeine Hives swelling-airway/face Morphine Swelling Penicillin G Hives, Swelling Phenergan [Prometha* Intolerance mental status change Shellfish Derived Anaphylaxis Data Reviewed: Reviewed personally on today's date 02/27/2022 Relevant Imaging: MRI Spine Report No resulted procedures found. XR RIGHT hand 05/21/21: PA/LAT/OBLIQ films of the right hand shows stage 3 thumb CMC arthritis. There are lytic lesions within the thumb metacarpal with cortical thinning. There is no soft tissue swelling. Electrodiagnostic Study (EMG): 09/27/21L RUE Normal study Recent labs: Creatinine Date Value Ref Range Status 12/02/2021 0.83 0.58 - 0.96 mg/dL Final @lastegfr(gfr)@ No results found for: PCGLUCOSE Pain Procedures: DATE PROCEDURE IMPROVEMENT None to date at this practice Compliance: PDMP website checked and validated. All prescriptions have been APPROPRIATELY filled. No suspiciousactivity was identified. 02/27/2022 by Jimena Ashley APRN.SAND CONTROL WORKER RX Oxycodone 5/325, #12 tabs, 07/25/21 Last Drug screen: Not Applicable Risk Assessment: DARREL-7: DARREL - 7 SCORES 09/09/2021 02/27/2022 DARREL-7 Score 19 21 (0-4) minimal anxiety, (5-9) mild anxiety, (10-14) moderate anxiety, (15-21) severe anxiety PHQ-9: PHQ-9 04/02/2021 09/09/2021 02/27/2022 Score 6 14 17 (0-4) minimal depression, (5-9) mild depression, (10-14) moderate depression, (15-19) moderately severe depression, (20-27) severe depression Opioid Risk Tool: Family History of Substance Abuse: Yes Alcohol: 1 -Female Personal History of Substance Abuse: Yes Alcohol: 3 - Yes Age between 16-45: 0 - No History of Pre-Adolescence Sexual Abuse: 0 - No Psychological Disease: Yes ADD/ADHD/OCD/Bipolar/Schizophrenia: No Depression: 1 - Yes Risk Total: 5 Total Score Risk Category: Moderate Risk 4-7 (0-3, low risk or no risk; 4-7, moderate risk, 8+, high risk) Current Medications, Past Medical History, Past Surgical History, Family History, Social History and Review of Systems: On today's date, 02/27/2022, noted above, I have confirmed and edited as necessary, the PFSH and ROS obtained by others. Physical Exam: 02/27/22 0851 Pulse: 64 Resp: 16 SpO2: 99% Constitutional:obese HEENT: Normal Cephalic, Atraumatic, Non-icteric sclera Eyes: Conjunctiva clear. No discharge from eyes Cardiovascular: Appears well perfused Lymphatic: No visible regional lymphadenopathy Skin: No visible rashes or ecchymosis Psychiatric: Full affect, Alert, Pleasant RIGHT Wrist/Hand: Inspection: ? Neurovascularly intact ? No Thenar wasting ? There are no joint enlargements appreciated Palpation: ? No pain over the anatomic snuff box, radial collateral ligament, ulnar collateral ligament, firstmetacarpal-phalangeal (MCP) joint; + tenderness with edema to the first carpal-metacarpal (CMC), Neurological: ? Hand intrinsic strength is normal (4+/5) with the following resisted motions: Thumb adduction, Thumb abduction, Thumb and 5th digit opposition, Jonas pinch, OK sign, patient is guarded Range of Motion: ? Active and Passive: Wrist and all digits have normal range with no pain during motion or at end ranges Special Tests: ? Lv: Negative ? Tinel: Negative ? Phalen: Negative Median Nerve compression at the carpal tunnel: Negative Diagnoses: (R20.9) Disturbance of skin sensation (primary encounter diagnosis) (M18.11) Arthritis of carpometacarpal (CMC) joint of right thumb (G89.29) Other chronic pain (M54.2, G89.29) Chronic neck pain Impression & Plan: 46 year old female with significant past medical history for epilepsy, Migraine, HTN, MVP, depression, hx of suicidal ideation, asthma, who presents with complaint(s) of RIGHT thumb and pain for ~ 5 years after an injury with a service dismantler. She underwent RIGHT Thumb CMC arthroplasty on 07/25/[address] Go. EMG of the right upper extremity did not demonstrate any evidence of radiculopathy or peripheral nerve entrapment or neuropathy. Patient has history of epilepsy which is managed by her neurologist. Last seizure was approximately4 months ago. She is on antiepileptic medications currently. She reports that she has tried gabapentin, Lyrica, Cymbalta and Topamax in the past with no meaningful relief. For now we will hold on anyAED's. Reports she has tried ibuprofen, Motrin [id number] Aleve and Naprosyn with no meaningful relief. She has tolerated these medications without any side effects, She does have aspirin listed as anallergy. She has been released to work with no restrictions. 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 Srishantel Chacon would benefit from the following to decrease pain, improve function and/or work participation, and improve quality of life: Medications: Refill: Signed Prescriptions Disp Refills meloxicam (MOBIC) 15 mg tablet 30 tablet 2 Sig: Take 1 tablet by mouth once daily as needed for pain (with food). lidocaine (XYLOCAINE) 5 % ointment 60 g 3 Sig: Apply to affected area three times daily. DARREL-7/PHQ-2, and ORT: 02/27/2022 Completed and reviewed, high depression/anxiety scores, she is managed by psychiatry. Had her medications recently adjusted. ORT is risk moderate risk. Functional Religious: No changes-continue current regimen and Home Exercise Program under provider supervisions Additional Studies: XR Cervical Spine Referrals: None Additional: Patient reports she tolerated ibuprofen, motrin, aleve without difficulty or adverse side effects. She has ASA listed as an allergy, we will trial her on Meloxicam, but we reviewed signs and symptomsto monitor for in regards to potential allergy. If any concerns she will discontinue. She may continue Tylenol 1 g p.o. 3 times daily as needed pain We will also trial topical lidocaine ointment as needed for additional pain relief. She will continue her home exercise program that she is learned previously with OT continue wearing her brace underthe guidance of her orthopedic surgeon. She reports complaints of intermittent neck pain we will order an x-ray for now. Patient is happy and agreeable with this plan. All questions were answered and patient verbalized understanding. Depending on response to the above plan, consider: Follow-up: 6-8 weeks for evaluation of response to treatment plan and optimization Attribution: In addition to reviewing the information noted above, some elements copied from my most recent clinical note(s), including the physical exam (completed in entirety today), and the impression and plan sections, have been updated where appropriate. All reflect current medical decision making from today's date. Jimena Ashley APRN.SAND CONTROL WORKER Pain Management [facility] * Bonnie Reyez MA - 02/27/2022 8:46 AM EDT Review of Systems Constitutional: Negative for activity change, chills, fever and unexpected weight change. Gastrointestinal: Negative for bowel retention or incontinence Genitourinary: Negative for difficulty urinating. Negative for bladder retention or incontinence Musculoskeletal: Positive for arthralgias, back pain, neck pain and neck stiffness. Negative for gait problem, joint swelling and myalgias. Neurological: Positive for weakness, numbness and headaches. Psychiatric/Behavioral: Positive for dysphoric mood, sleep disturbance and suicidal ideas. The patient is nervous/anxious. documented in this encounterTrihealth05-31-2022 History of Present illness Narrative* Lori Praisler-Wood, BARN HAND.SAND CONTROL WORKER - 01/07/2022 10:41 AM EDT Subjective Sri Chacon is a 46 year old female who presents with cough, sore throat, and chills for 1 day. 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 Denies congestion, runny nose, ear pain, or shortness of breath. Reports ibuprofen provides mild relief of symptoms. The history is provided by the patient. No language and literature division chair was used. Sore Throat This is a new problem. The current episode started yesterday. The problem has been unchanged. Therehas been no fever. The pain is mild. Associated symptoms include coughing. Pertinent negatives include no congestion, ear pain, shortness of breath or trouble swallowing. Exposure to: COVID-19 and RSV. She has tried NSAIDs for the symptoms. The treatment provided mild relief. Cough Associated symptoms include chills and sore throat. Pertinent negatives include no chest pain, no ear pain and no shortness of breath. Review of Systems Constitutional: Positive for chills. Negative for fever. HENT: Positive for sore throat. Negative for congestion, ear pain, sinus pain and trouble swallowing. Respiratory: Positive for cough. Negative for shortness of breath. Cardiovascular: Negative for chest pain. BP 114/72 Pulse 93 Temp 36.3 C (97.4 F) Resp 20 Wt 81.1 kg (178 lb 12.8 oz) SpO2 96% BMI 33.78 kg/m PAST MEDICAL HISTORY Diagnosis Date Calculus of kidney 07/03/2006 Calculus of ureter 03/16/2008 Convulsions (HCC) 02/01/2013 Depression Essential hypertension 01/01/2018 Gallstone 12/25/2017 Hydronephrosis 03/16/2008 Hypothyroidism IBS (irritable bowel syndrome) Lactose intolerance in adult 01/21/2018 Migraine 02/01/2013 Nonrheumatic mitral (valve) prolapse 06/15/2017 Seizure disorder ([facility]) last 04/2021 Traumatic brain injury ([facility]) Unspecified asthma(493.90) Unspecified ectopic without intrauterine Ectopic PAST SURGICAL HISTORY Procedure Laterality Date CYSTOSCOPY,URETEROSCOPY,LITHOTRIPSY DILATION & CURETTAGE DX&/THER NONOBSTETRIC 1995 Dilation & curettage PAST SURGICAL HISTORY OF 1999 C section PAST SURGICAL HISTORY OF 2009 heart cath PAST SURGICAL HISTORY OF 1991 right knee surgery with muscle and scar tissue removal post fx PAST SURGICAL HISTORY OF Right hand marley Dr. Nguyen PAST SURGICAL HISTORY OF Right 2020 right thumb CMC arthroplasty TOTAL ABDOMINAL HYSTERECT W/WO RMVL TUBE OVARY 01/2005 Hysterectomy, ALLY ALLERGIES Asa [Salicylates], Aspirin, Benadryl [Diphenhydramine Hcl], Codeine, Morphine, PenicillinG, Phenergan [Promethazine Hcl], and Shellfish Derived MEDICATIONS ARIPiprazole (ABILIFY) 2 mg tablet zonisamide (ZONEGRAN) 100 mg capsule Take three pills(300mg) at bedtime for 2 weeks. Then increase to two pills twice a day(400mg) cholecalciferol, Vitamin D3, (VITAMIN D3) 1,250 mcg (50,000 unit) cap capsule Take 1 capsule by mouth one time a week. levothyroxine (SYNTHROID) 75 mcg tablet Take 1 tablet by mouth once daily. Take on empty stomach. For Thyroid diphenhydrAMINE (BENADRYL) 50 mg/mL injection Inject 50 mg intramuscularly every 6 hours as needed (at migraine onset). Syringe with Needle, Disp, 3 mL 23 x 1 1 Each as needed. LAMICTAL XR 200 mg 24 hr tablet Take 2 tablets by mouth twice daily. FAMILY HISTORY Problem Relation Age of Onset Arthritis Mother Cataract Mother other (pacemaker, defibrillator) Mother other (mitral valve) Father Cataract Maternal Grandmother Social History Tobacco Use Smoking status: Never Smoker Smokeless tobacco: Never Used Substance Use Topics Alcohol use: Yes Comment: rare Drug use: No Objective Physical Exam Vitals and nursing note reviewed. Constitutional: Appearance: Normal appearance. HENT: Right Ear: Tympanic membrane, ear canal and external ear normal. Left Ear: Tympanic membrane, ear canal and external ear normal. Nose: Nose normal. Mouth/Throat: Mouth: Mucous membranes are moist. Pharynx: Uvula midline. Posterior oropharyngeal erythema (mild) present. No pharyngeal swelling. Cardiovascular: Rate and Rhythm: Normal rate and regular rhythm. Pulmonary: Effort: Pulmonary effort is normal. Breath sounds: Normal breath sounds. No wheezing, rhonchi or rales. Neurological: Mental Status: She is alert. ASSESSMENT/PLAN: 1. Viral illness - ICD9: 079.99, ICD10: B34.9 (primary diagnosis) - Discussed viral etiology and rationale for treatment. - Symptomatic treatment with prn analgesia - Supportive care with fluids and rest - COVID WITH FLUA+B, ROUTINE 2. Exposure to COVID-19 virus - ICD9: V01.79, ICD10: Z20.822 - COVID WITH FLUA+B, ROUTINE TRINIDAD Vogel Student TEACHING PROVIDER (Physician/PA/[employer]) NOTE OF PERSONAL INVOLVEMENT IN CARE: I have personally seen and examined the patient and performed the medical decision-making components. I have reviewed the Advanced Practice Registered Nurse ([employer]) Student's documentation and verified the findings in the note as written. Any additions or changes are noted in bold/italics. Signature: Lori Corral Date: 01/07/2022 Time: 10:49 AM documented in this encounterTrihealth05-31-2022 Instructions* Patient Instructions* Cristiane Romero - 01/07/2022 10:40 AM EDT ASSESSMENT/PLAN: 1. Viral illness - ICD9: 079.99, ICD10: B34.9 (primary diagnosis) - Discussed viral etiology and rationale for treatment. - Symptomatic treatment with prn analgesia - Supportive care with fluids and rest - COVID WITH FLUA+B, ROUTINE 2. Exposure to COVID-19 virus - ICD9: V01.79, ICD10: Z20.822 - COVID WITH FLUA+B, ROUTINE TRINIDAD Vogel Student How to Manage Common Symptoms Associated with COVID for Adults Fever- Fever is a temperature over 100.4 F and can occur when the body is fighting an infection. Tohelp treat a fever: Drink plenty of fluids and stay well hydrated. Eat small amounts of easy to digest food. Rest. Your body needs rest to recover, but getting up and moving around the house frequently is a good idea. You should try to continue doing your normal daily activities (bathing, toileting, grooming, cooking), though you will probably feel tired, and need to rest often. Avoid any heavy activity or exercise, as this will increase your body temperature. Dress in light clothing and stay covered in a light sheet. Keep the room temperature cool. Take a slightly warm (not cold or cool) bath, or apply damp washcloths to the forehead and wrists. Cough- Cough is a common symptom associated with COVID and can be bothersome. To help treat a cough: Stay well hydrated. Try warm water or tea with lemon and/or honey to help soothe the cough. Use a humidifier to add moisture to the air. Try a product with menthol, like a cough drop or a rub for your chest such as Vicks, which can helpreduce cough. Try cough drops. Avoid smoking and other strong odors or perfumes. Try breathing exercises to keep your lungs open and clear. Take a big deep breath through your noseand hold for 5 seconds before slowly releasing. Repeat frequently, while you are awake. Congestion- Runny nose or nasal congestion can occur with COVID. Treatment can help relieve symptoms: Try OTC nasal saline spray, or nasal saline rinse to relieve mucus congestion. Nasal strips can help keep nasal passages open, to increase airflow. Elevating your head with an extra pillow in bed can help reduce congestion. Using a humidifier can increase moisture in the air, and make breathing easier. Sore Throat- Another common symptom with COVID, can be managed at home by: Stay well hydrated. Gargle with salt water mix teaspoon salt with 1 cup of warm water and gargle. This helps to loosen mucus in the back of the throat and may reduce discomfort. Try ice chips, popsicles or lozenges to soothe the throat. Nausea/Vomiting/Diarrhea- These are common symptoms, and staying hydrated is most important. If you are nauseous or vomiting, start with small sips of water every 10-15 minutes and increase astolerated. You can try sucking an ice cube too. If tolerating, you can try pedialyte or Gatorade, or flat sprite or robert-fidelia. Start slowly and increase as you are able to. Instead of meals, try smaller, more frequent snacks. Try eating bland foods like crackers, toast, rice, and applesauce. Avoid spicy, greasy or fried foods and dairy containing foods. Even if you aren't feeling hungry due to lack of smell or taste, it is important to try to take in some food when you are able. After drinking and eating, rest in an upright position for up to two hours as needed to help decrease nauseous feelings. Try closing your eyes, avoid moving and watching TV. Avoid strong odors that can make you feel more nauseated. When to seek emergency medical attention Look for emergency warning signs for COVID-19. If having any of these symptoms, seek emergency medical care immediately: Trouble breathing Persistent pain or pressure in the chest New confusion Inability to wake or stay awake Bluish lips or face *This list is not all possible symptoms. Please call your medical provider for any other symptoms that are severe or concerning to you. documented in this encounterTrihealth05-25-2022 Nurse Note* Lay Nicole - 01/01/2022 1:30 PM EDT patient reported no active infections at this time. patient states no open skin/wounds as well. patient confirmed not taking any antibiotics nor steroids currently. Female. status: : No status: NO. documented in this encounterTrihealth05-09-2022 Miscellaneous Notes* Telephone Encounter - Rozina Singh [facility] - 12/16/2021 8:25 AM EDT ----- Message from Yaw Zaragoza sent at 12/16/2021 8:03 AM EDT ----- Regarding: Orthopedics / Open Hand: Finger Pain / Recent ED Visit Patient has been identified by name and Date of (Y/N): Y Patient: Sri Chacon Date of : 1975 Previous Provider Seen: Dr Go Body Part(s) Identified: Right thumb Diagnosis/Reason For Visit: Infection Reason for the call/escalation: Patient was in emergency over the weekend, contacted Dr Go and he told her to go to emergency for the infection If reason for call/escalation is discharge from ED/ER or Hospital, which facility was the patient seen at: Didn't specify and nothing in EPIC Was an appointment scheduled (Y/N): N Person calling if other than patient: N/A Return call to if other than patient: N/A Best contact number: [phone] Thank you, Yaw Mila December 16, 2021 8:03 AM documented in this encounterTrihealth04-28-2022 Miscellaneous Notes* Telephone Encounter - Chelsie Cardona Ma - 12/05/2021 4:06 PM EDT Pt notified of results via Numerous. Chelsie Cardona Ma * Telephone Encounter - Dayan Casas MA - 12/05/2021 1:02 PM EDT Attempted to contact patient; phone rang fast busy. Will try again. Dayan Casas MA * Telephone Encounter - Ana Awad APRN.CNP - 12/05/2021 10:04 AM EDT Can you please call the patient and let her know that I reviewed her lab results. Vitamin D is low but has improved in the past 4 months. I want her to continue to take the once weekly supplement. TSH has improved but is still elevated. I would like to go ahead and increase her Synthroid to 75 mcg. Get repeat labs in 6 weeks. Please let me know if she has any questions. Thank you. The following approved medication requests have been transmitted electronically. Signed Prescriptions Disp Refills levothyroxine (SYNTHROID) 75 mcg tablet 30 tablet 5 Sig: Take 1 tablet by mouth once daily. Take on empty stomach. For Thyroid Authorizing Provider: ANA AWAD APRN.CNP documented in this encounterTrihealth04-04-2022 History of Present illness Narrative* Austin Go Jr., MD - 11/11/2021 2:49 PM EDT 11/11/2021 :1975 Sri Chacon HISTORY OF CHIEF COMPLAINT: She sees me in follow-up today for right thumb CMC arthroplasty. She is3-1/2 months out from surgery. On her last visit she complains of numbness to all 5 fingers. I was unable to get any two-point discrimination on her as she cannot feel any of the skin pricks. I sent her for nerve conduction study and EMG which was normal. She continues to have numbness in the hand but her pain is better in her thumb. PAST MEDICAL HISTORY Diagnosis Date Calculus of kidney 07/03/2006 Calculus of ureter 03/16/2008 Convulsions ([facility]) 02/01/2013 Depression Essential hypertension 01/01/2018 Gallstone 12/25/2017 Hydronephrosis 03/16/2008 Hypothyroidism IBS (irritable bowel syndrome) Lactose intolerance in adult 01/21/2018 Migraine 02/01/2013 Nonrheumatic mitral (valve) prolapse 06/15/2017 Seizure disorder ([facility]) last 04/2021 Traumatic brain injury ([facility]) Unspecified asthma(493.90) Unspecified ectopic without intrauterine Ectopic PAST SURGICAL HISTORY Procedure Laterality Date CYSTOSCOPY,URETEROSCOPY,LITHOTRIPSY DILATION & CURETTAGE DX&/THER NONOBSTETRIC 1995 Dilation & curettage PAST SURGICAL HISTORY OF 1999 C section PAST SURGICAL HISTORY OF 2009 heart cath PAST SURGICAL HISTORY OF 1991 right knee surgery with muscle and scar tissue removal post fx PAST SURGICAL HISTORY OF Right hand marley Dr. Nguyen PAST SURGICAL HISTORY OF Right 2020 right thumb CMC arthroplasty TOTAL ABDOMINAL HYSTERECT W/WO RMVL TUBE OVARY 01/2005 Hysterectomy, ALLY Social History Tobacco Use Smoking status: Never Smoker Smokeless tobacco: Never Used Substance Use Topics Alcohol use: Yes Comment: rare Drug use: No Medications: Current Outpatient Medications Medication Sig Dispense Refill zonisamide (ZONEGRAN) 100 mg capsule Take three pills(300mg) at bedtime for 2 weeks. Then increase to two pills twice a day(400mg) 360 capsule 3 LAMICTAL XR 200 mg 24 hr tablet Take 2 tablets by mouth twice daily. 360 tablet 3 cholecalciferol, Vitamin D3, (VITAMIN D3) 1,250 mcg (50,000 unit) cap capsule Take 1 capsule by mouth one time a week. 4 capsule 4 diphenhydrAMINE (BENADRYL) 50 mg/mL injection Inject 50 mg intramuscularly every 6 hours as needed (at migraine onset). 4 mL 5 Syringe with Needle, Disp, 3 mL 23 x 1 1 Each as needed. 4 Each 5 levothyroxine (SYNTHROID) 50 mcg tablet Take 1 tablet by mouth once daily. Take on empty stomach. For Thyroid. 30 tablet 3 No current facility-administered medications for this visit. ALLERGIES Allergen Reactions Asa [Salicylates] Swelling Aspirin Rash Benadryl [Diphenhyd* Mental Status Change Codeine Hives swelling-airway/face Morphine Swelling Penicillin G Hives, Swelling Phenergan [Prometha* Intolerance mental status change Shellfish Derived Anaphylaxis Resp 16 Ht 154.9 cm (5' 1 ) Wt 81.2 kg (179 lb) BMI 33.82 kg/m PHYSICAL EXAMINATION: General: she is a well developed, well nourished female Psyche: she is alert and oriented and cooperative to our examination Skin: Skin condition is healthy without rashes or erythema. Cadiovascular: There is a palpable radial pulse and brisk cap refill distally. Neck: Supple with no JVD Lymph: There is no palpable epitrochlear Pulmonary: she has non labored breathing. There is no evidence of cyanosis. There is no clubbing ofhis fingernails. she has no pursed lips. Neuro: she is alert and oriented x3. There are no focal neurologic deficits. See sensation exam below. Head: Normocephalic and atraumatic Musculoskeletal: There is no swelling or ecchymosis. There are no skin lacerations or abrasions. There are no Heberden's or Shanna's nodes. There is no boutonniere or swan-neck deformity of the fingers. There is no ulnar drift of the fingers. There is no intrinsic muscular atrophy. There is a negative shoulder sign over the thumb CMC joint. There is no dorsal subluxation of the ulnar head. She has no instability at the thumb CMC joint. She has full range of motion of the fingers. REVIEW OF STUDIES: There is electrodiagnostic evidence of peripheral nerve entrapment, plexopathy, or radiculopathy affecting the right arm. Patient was unable to activate APB ( seemed guard without effort) so im not able to comment on its motor units but there was spontaneous activity with it. ASSESSMENT: 1. Numbness of right hand PLAN: I have no restrictions for her at this time. I will see her back as needed. All of the patients questions were answered to her satisfaction. I reviewed diagnosis with patient verbally. We discussed her treatment options in depth and established a course of treatment suited to her. Scribe Attestation Statement: Scribe Statement: I, Erica Nguyen MA, am scribing for, and in the presence of Austin Go MD, Scribe: Erica Nguyen MA Clinician Attestation Statement: The information in this document, created by the medical surgical tech for me, accurately reflects the services I personally performed and the decisions made by me. I have reviewed and approved this document for accuracy. Austin Go MD Please note: This note has been produced using speech recognition software and may contain errors related to that system including grammar, punctuation, spelling, gender and words and phrases that may be inappropriate. documented in this encounterTrihealth06-25-2013 History of Past illness Narrative* Problem Noted Date Resolved Date Convulsions 02/01/2013 12/26/2017 Pain in joint, lower leg 12/29/2012 018 Pelvic pain in female 08/27/2011 12/24/2017 Renal calculus, right 07/31/2010 12/24/2017 Gross hematuria 05/02/2009 12/24/2017 Microscopic hematuria 05/02/2009 12/24/2017 Right flank pain 05/02/2009 12/24/2017 Hyperactivity of bladder 05/02/2009 018 Hydronephrosis 03/16/2008 12/24/2017 Calculus of ureter 03/16/2008 12/26/2017 Renal colic 01/21/2008 12/24/2017 Sprain of ankle, unspecified site 10/18/2007 12/24/2017 Calculus of kidney 07/03/2006 12/26/2017 documented as of this encounter (statuses as of 11/11/2021) [facility] of Past illness Narrative* Problem Noted Date Resolved Date Convulsions 02/01/2013 12/26/2017 Pain in joint, lower leg 12/29/2012 018 Pelvic pain in female 08/27/2011 12/24/2017 Renal calculus, right 07/31/2010 12/24/2017 Gross hematuria 05/02/2009 12/24/2017 Microscopic hematuria 05/02/2009 12/24/2017 Right flank pain 05/02/2009 12/24/2017 Hyperactivity of bladder 05/02/2009 018 Hydronephrosis 03/16/2008 12/24/2017 Calculus of ureter 03/16/2008 12/26/2017 Renal colic 01/21/2008 12/24/2017 Sprain of ankle, unspecified site 10/18/2007 12/24/2017 Calculus of kidney 07/03/2006 12/26/2017 documented as of this encounter (statuses as of 12/05/2021) [facility] of Past illness Narrative* Problem Noted Date Resolved Date Convulsions 02/01/2013 12/26/2017 Pain in joint, lower leg 12/29/2012 018 Pelvic pain in female 08/27/2011 12/24/2017 Renal calculus, right 07/31/2010 12/24/2017 Gross hematuria 05/02/2009 12/24/2017 Microscopic hematuria 05/02/2009 12/24/2017 Right flank pain 05/02/2009 12/24/2017 Hyperactivity of bladder 05/02/2009 018 Hydronephrosis 03/16/2008 12/24/2017 Calculus of ureter 03/16/2008 12/26/2017 Renal colic 01/21/2008 12/24/2017 Sprain of ankle, unspecified site 10/18/2007 12/24/2017 Calculus of kidney 07/03/2006 12/26/2017 documented as of this encounter (statuses as of 12/16/2021) [facility] of Past illness Narrative* Problem Noted Date Resolved Date Convulsions 02/01/2013 12/26/2017 Pain in joint, lower leg 12/29/2012 018 Pelvic pain in female 08/27/2011 12/24/2017 Renal calculus, right 07/31/2010 12/24/2017 Gross hematuria 05/02/2009 12/24/2017 Microscopic hematuria 05/02/2009 12/24/2017 Right flank pain 05/02/2009 12/24/2017 Hyperactivity of bladder 05/02/2009 018 Hydronephrosis 03/16/2008 12/24/2017 Calculus of ureter 03/16/2008 12/26/2017 Renal colic 01/21/2008 12/24/2017 Sprain of ankle, unspecified site 10/18/2007 12/24/2017 Calculus of kidney 07/03/2006 12/26/2017 documented as of this encounter (statuses as of 01/01/2022) [facility] of Past illness Narrative* Problem Noted Date Resolved Date Convulsions 02/01/2013 12/26/2017 Pain in joint, lower leg 12/29/2012 018 Pelvic pain in female 08/27/2011 12/24/2017 Renal calculus, right 07/31/2010 12/24/2017 Gross hematuria 05/02/2009 12/24/2017 Microscopic hematuria 05/02/2009 12/24/2017 Right flank pain 05/02/2009 12/24/2017 Hyperactivity of bladder 05/02/2009 018 Hydronephrosis 03/16/2008 12/24/2017 Calculus of ureter 03/16/2008 12/26/2017 Renal colic 01/21/2008 12/24/2017 Sprain of ankle, unspecified site 10/18/2007 12/24/2017 Calculus of kidney 07/03/2006 12/26/2017 documented as of this encounter (statuses as of 01/01/2022) [facility] of Past illness Narrative* Problem Noted Date Resolved Date Convulsions 02/01/2013 12/26/2017 Pain in joint, lower leg 12/29/2012 018 Pelvic pain in female 08/27/2011 12/24/2017 Renal calculus, right 07/31/2010 12/24/2017 Gross hematuria 05/02/2009 12/24/2017 Microscopic hematuria 05/02/2009 12/24/2017 Right flank pain 05/02/2009 12/24/2017 Hyperactivity of bladder 05/02/2009 018 Hydronephrosis 03/16/2008 12/24/2017 Calculus of ureter 03/16/2008 12/26/2017 Renal colic 01/21/2008 12/24/2017 Sprain of ankle, unspecified site 10/18/2007 12/24/2017 Calculus of kidney 07/03/2006 12/26/2017 documented as of this encounter (statuses as of 01/07/2022) [facility] of Past illness Narrative* Problem Noted Date Resolved Date Convulsions 02/01/2013 12/26/2017 Pain in joint, lower leg 12/29/2012 018 Pelvic pain in female 08/27/2011 12/24/2017 Renal calculus, right 07/31/2010 12/24/2017 Gross hematuria 05/02/2009 12/24/2017 Microscopic hematuria 05/02/2009 12/24/2017 Right flank pain 05/02/2009 12/24/2017 Hyperactivity of bladder 05/02/2009 018 Hydronephrosis 03/16/2008 12/24/2017 Calculus of ureter 03/16/2008 12/26/2017 Renal colic 01/21/2008 12/24/2017 Sprain of ankle, unspecified site 10/18/2007 12/24/2017 Calculus of kidney 07/03/2006 12/26/2017 documented as of this encounter (statuses as of 01/07/2022) [facility] of [facility] illness Narrative* Problem Noted Date Resolved Date Convulsions 02/01/2013 12/26/2017 Pain in joint, lower leg 12/29/2012 018 Pelvic pain in female 08/27/2011 12/24/2017 Renal calculus, right 07/31/2010 12/24/2017 Gross hematuria 05/02/2009 12/24/2017 Microscopic hematuria 05/02/2009 12/24/2017 Right flank pain 05/02/2009 12/24/2017 Hyperactivity of bladder 05/02/2009 018 Hydronephrosis 03/16/2008 12/24/2017 Calculus of ureter 03/16/2008 12/26/2017 Renal colic 01/21/2008 12/24/2017 Sprain of ankle, unspecified site 10/18/2007 12/24/2017 Calculus of kidney 07/03/2006 12/26/2017 documented as of this encounter (statuses as of 02/27/2022) [facility] of Past illness Narrative* Problem Noted Date Resolved Date Convulsions 02/01/2013 12/26/2017 Pain in joint, lower leg 12/29/2012 018 Pelvic pain in female 08/27/2011 12/24/2017 Renal calculus, right 07/31/2010 12/24/2017 Gross hematuria 05/02/2009 12/24/2017 Microscopic hematuria 05/02/2009 12/24/2017 Right flank pain 05/02/2009 12/24/2017 Hyperactivity of bladder 05/02/2009 018 Hydronephrosis 03/16/2008 12/24/2017 Calculus of ureter 03/16/2008 12/26/2017 Renal colic 01/21/2008 12/24/2017 Sprain of ankle, unspecified site 10/18/2007 12/24/2017 Calculus of kidney 07/03/2006 12/26/2017 documented as of this encounter (statuses as of 02/28/2022) [facility] of Past illness Narrative* Problem Noted Date Resolved Date Convulsions 02/01/2013 12/26/2017 Pain in joint, lower leg 12/29/2012 018 Pelvic pain in female 08/27/2011 12/24/2017 Renal calculus, right 07/31/2010 12/24/2017 Gross hematuria 05/02/2009 12/24/2017 Microscopic hematuria 05/02/2009 12/24/2017 Right flank pain 05/02/2009 12/24/2017 Hyperactivity of bladder 05/02/2009 018 Hydronephrosis 03/16/2008 12/24/2017 Calculus of ureter 03/16/2008 12/26/2017 Renal colic 01/21/2008 12/24/2017 Sprain of ankle, unspecified site 10/18/2007 12/24/2017 Calculus of kidney 07/03/2006 12/26/2017 documented as of this encounter (statuses as of 05/06/2022) [facility] of [facility] illness Narrative* Problem Noted Date Resolved Date Convulsions 02/01/2013 12/26/2017 Pain in joint, lower leg 12/29/2012 018 Pelvic pain in female 08/27/2011 12/24/2017 Renal calculus, right 07/31/2010 12/24/2017 Gross hematuria 05/02/2009 12/24/2017 Microscopic hematuria 05/02/2009 12/24/2017 Right flank pain 05/02/2009 12/24/2017 Hyperactivity of bladder 05/02/2009 018 Hydronephrosis 03/16/2008 12/24/2017 Calculus of ureter 03/16/2008 12/26/2017 Renal colic 01/21/2008 12/24/2017 Sprain of ankle, unspecified site 10/18/2007 12/24/2017 Calculus of kidney 07/03/2006 12/26/2017 documented as of this encounter (statuses as of 08/14/2022) [facility] of [facility] illness Narrative* Problem Noted Date Resolved Date Convulsions 02/01/2013 12/26/2017 Pain in joint, lower leg 12/29/2012 018 Pelvic pain in female 08/27/2011 12/24/2017 Renal calculus, right 07/31/2010 12/24/2017 Gross hematuria 05/02/2009 12/24/2017 Microscopic hematuria 05/02/2009 12/24/2017 Right flank pain 05/02/2009 12/24/2017 Hyperactivity of bladder 05/02/2009 018 Hydronephrosis 03/16/2008 12/24/2017 Calculus of ureter 03/16/2008 12/26/2017 Renal colic 01/21/2008 12/24/2017 Sprain of ankle, unspecified site 10/18/2007 12/24/2017 Calculus of kidney 07/03/2006 12/26/2017 documented as of this encounter (statuses as of 08/15/2022) [facility] Narrative* Problem Noted Date Resolved Date Convulsions 02/01/2013 12/26/2017 Pain in joint, lower leg 12/29/2012 018 Pelvic pain in female 08/27/2011 12/24/2017 Renal calculus, right 07/31/2010 12/24/2017 Gross hematuria 05/02/2009 12/24/2017 Microscopic hematuria 05/02/2009 12/24/2017 Right flank pain 05/02/2009 12/24/2017 Hyperactivity of bladder 05/02/2009 018 Hydronephrosis 03/16/2008 12/24/2017 Calculus of ureter 03/16/2008 12/26/2017 Renal colic 01/21/2008 12/24/2017 Sprain of ankle, unspecified site 10/18/2007 12/24/2017 Calculus of kidney 07/03/2006 12/26/2017 documented as of this encounter (statuses as of 09/25/2022) [facility] History of Past illness Narrative* Problem Noted Date Resolved Date Convulsions 02/01/2013 12/26/2017 Pain in joint, lower leg 12/29/2012 018 Pelvic pain in female 08/27/2011 12/24/2017 Renal calculus, right 07/31/2010 12/24/2017 Gross hematuria 05/02/2009 12/24/2017 Microscopic hematuria 05/02/2009 12/24/2017 Right flank pain 05/02/2009 12/24/2017 Hyperactivity of bladder 05/02/2009 018 Hydronephrosis 03/16/2008 12/24/2017 Calculus of ureter 03/16/2008 12/26/2017 Renal colic 01/21/2008 12/24/2017 Sprain of ankle, unspecified site 10/18/2007 12/24/2017 Calculus of kidney 07/03/2006 12/26/2017 documented as of this encounter (statuses as of 09/26/2022) [facility] History of Past illness Narrative* Problem Noted Date Resolved Date Convulsions 02/01/2013 12/26/2017 Pain in joint, lower leg 12/29/2012 018 Pelvic pain in female 08/27/2011 12/24/2017 Renal calculus, right 07/31/2010 12/24/2017 Gross hematuria 05/02/2009 12/24/2017 Microscopic hematuria 05/02/2009 12/24/2017 Right flank pain 05/02/2009 12/24/2017 Hyperactivity of bladder 05/02/2009 018 Hydronephrosis 03/16/2008 12/24/2017 Calculus of ureter 03/16/2008 12/26/2017 Renal colic 01/21/2008 12/24/2017 Sprain of ankle, unspecified site 10/18/2007 12/24/2017 Calculus of kidney 07/03/2006 12/26/2017 documented as of this encounter (statuses as of 11/28/2022) [facility] History of Past illness Narrative* Problem Noted Date Resolved Date Convulsions 02/01/2013 12/26/2017 Pain in joint, lower leg 12/29/2012 018 Pelvic pain in female 08/27/2011 12/24/2017 Renal calculus, right 07/31/2010 12/24/2017 Gross hematuria 05/02/2009 12/24/2017 Microscopic hematuria 05/02/2009 12/24/2017 Right flank pain 05/02/2009 12/24/2017 Hyperactivity of bladder 05/02/2009 018 Hydronephrosis 03/16/2008 12/24/2017 Calculus of ureter 03/16/2008 12/26/2017 Renal colic 01/21/2008 12/24/2017 Sprain of ankle, unspecified site 10/18/2007 12/24/2017 Calculus of kidney 07/03/2006 12/26/2017 documented as of this encounter (statuses as of 12/18/2022) [facility] History of Past illness Narrative* Problem Noted Date Resolved Date Convulsions 02/01/2013 12/26/2017 Pain in joint, lower leg 12/29/2012 018 Pelvic pain in female 08/27/2011 12/24/2017 Renal calculus, right 07/31/2010 12/24/2017 Gross hematuria 05/02/2009 12/24/2017 Microscopic hematuria 05/02/2009 12/24/2017 Right flank pain 05/02/2009 12/24/2017 Hyperactivity of bladder 05/02/2009 018 Hydronephrosis 03/16/2008 12/24/2017 Calculus of ureter 03/16/2008 12/26/2017 Renal colic 01/21/2008 12/24/2017 Sprain of ankle, unspecified site 10/18/2007 12/24/2017 Calculus of kidney 07/03/2006 12/26/2017 documented as of this encounter (statuses as of 12/24/2022) [facility] History of Past illness Narrative* Problem Noted Date Resolved Date Convulsions 02/01/2013 12/26/2017 Pain in joint, lower leg 12/29/2012 018 Pelvic pain in female 08/27/2011 12/24/2017 Renal calculus, right 07/31/2010 12/24/2017 Gross hematuria 05/02/2009 12/24/2017 Microscopic hematuria 05/02/2009 12/24/2017 Right flank pain 05/02/2009 12/24/2017 Hyperactivity of bladder 05/02/2009 018 Hydronephrosis 03/16/2008 12/24/2017 Calculus of ureter 03/16/2008 12/26/2017 Renal colic 01/21/2008 12/24/2017 Sprain of ankle, unspecified site 10/18/2007 12/24/2017 Calculus of kidney 07/03/2006 12/26/2017 documented as of this encounter (statuses as of 02/11/2023) [facility] History of Past illness Narrative* Problem Noted Date Diagnosed Date Resolved Date Convulsions 02/01/2013 12/26/2017 Pain in joint, lower leg 12/29/2012 Pelvic pain in female 08/27/20112017 Renal calculus, right 07/31/20102017 Gross hematuria 05/02/2009 12/24/2017 Microscopic hematuria 05/02/20092017 Right flank pain 05/02/2009 12/24/2017 Hyperactivity of bladder 05/02/2009 Hydronephrosis 03/16/2008 12/24/2017 Calculus of ureter 03/16/2008 8 Renal colic 01/21/2008 12/24/2017 Sprain of ankle, unspecified site 10/18/2007 12/24/2017 Calculus of kidney 07/03/2006 8 documented as of this encounter (statuses as of 03/10/2023) [facility] History of Past illness Narrative* Problem Noted Date Diagnosed Date Resolved Date Convulsions 02/01/2013 12/26/2017 Pain in joint, lower leg 12/29/2012 Pelvic pain in female 08/27/20112017 Renal calculus, right 07/31/20102017 Gross hematuria 05/02/2009 12/24/2017 Microscopic hematuria 05/02/20092017 Right flank pain 05/02/2009 12/24/2017 Hyperactivity of bladder 05/02/2009 Hydronephrosis 03/16/2008 12/24/2017 Calculus of ureter 03/16/2008 8 Renal colic 01/21/2008 12/24/2017 Calculus of kidney 07/03/2006 8 documented as of this encounter (statuses as of 03/13/2023) [facility] History of Past illness Narrative* Problem Noted Date Diagnosed Date Resolved Date Convulsions 02/01/2013 12/26/2017 Pain in joint, lower leg 12/29/2012 Pelvic pain in female 08/27/20112017 Renal calculus, right 07/31/20102017 Gross hematuria 05/02/2009 12/24/2017 Microscopic hematuria 05/02/20092017 Right flank pain 05/02/2009 12/24/2017 Hyperactivity of bladder 05/02/2009 Hydronephrosis 03/16/2008 12/24/2017 Calculus of ureter 03/16/2008 8 Renal colic 01/21/2008 12/24/2017 Calculus of kidney 07/03/2006 8 documented as of this encounter (statuses as of 03/26/2023) [facility] History of Past illness Narrative* Problem Noted Date Diagnosed Date Resolved Date Convulsions 02/01/2013 12/26/2017 Pain in joint, lower leg 12/29/2012 Pelvic pain in female 08/27/20112017 Renal calculus, right 07/31/20102017 Gross hematuria 05/02/2009 12/24/2017 Microscopic hematuria 05/02/20092017 Right flank pain 05/02/2009 12/24/2017 Hyperactivity of bladder 05/02/2009 Hydronephrosis 03/16/2008 12/24/2017 Calculus of ureter 03/16/2008 8 Renal colic 01/21/2008 12/24/2017 Calculus of kidney 07/03/2006 8 documented as of this encounter (statuses as of 03/31/2023) [facility] History of Past illness Narrative* Problem Noted Date Diagnosed Date Resolved Date Convulsions 02/01/2013 12/26/2017 Pain in joint, lower leg 12/29/2012 Pelvic pain in female 08/27/20112017 Renal calculus, right 07/31/20102017 Gross hematuria 05/02/2009 12/24/2017 Microscopic hematuria 05/02/20092017 Right flank pain 05/02/2009 12/24/2017 Hyperactivity of bladder 05/02/2009 Hydronephrosis 03/16/2008 12/24/2017 Calculus of ureter 03/16/2008 8 Renal colic 01/21/2008 12/24/2017 Calculus of kidney 07/03/2006 8 documented as of this encounter (statuses as of 04/28/2023) [facility] History of Past illness Narrative* Problem Noted Date Diagnosed Date Resolved Date Convulsions 02/01/2013 12/26/2017 Pain in joint, lower leg 12/29/2012 Pelvic pain in female 08/27/20112017 Renal calculus, right 07/31/20102017 Gross hematuria 05/02/2009 12/24/2017 Microscopic hematuria 05/02/20092017 Right flank pain 05/02/2009 12/24/2017 Hyperactivity of bladder 05/02/2009 Hydronephrosis 03/16/2008 12/24/2017 Calculus of ureter 03/16/2008 8 Renal colic 01/21/2008 12/24/2017 Calculus of kidney 07/03/2006 8 documented as of this encounter (statuses as of 06/14/2023) [facility] History of Past illness Narrative* Problem Noted Date Diagnosed Date Resolved Date Convulsions 02/01/2013 12/26/2017 Pain in joint, lower leg 12/29/2012 Pelvic pain in female 08/27/20112017 Renal calculus, right 07/31/20102017 Gross hematuria 05/02/2009 12/24/2017 Microscopic hematuria 05/02/20092017 Right flank pain 05/02/2009 12/24/2017 Hyperactivity of bladder 05/02/2009 Hydronephrosis 03/16/2008 12/24/2017 Calculus of ureter 03/16/2008 8 Renal colic 01/21/2008 12/24/2017 Calculus of kidney 07/03/2006 8 documented as of this encounter (statuses as of 06/14/2023) [facility] [place] [facility] Plan note Future Appointments Appointment Date:04/08/2023 08:30:00 AM Scheduled Provider: Location:[facility] Appointment Type:NM Myocardial Spect Rest/Stress Ema Appointment Date:04/08/2023 10:00:00 AM Scheduled Provider: Location:[facility] Appointment Type:CV Procedure - AOH Echo Future Scheduled Tests Radiology* NM Myocardial Spect Rest/Stress 04/08/23 [facility] Evaluation note* Diagnosis Numbness of right hand- Primary [facility]* Diagnosis Hypothyroidism, acquired- Primary Unspecified hypothyroidism [facility]* Diagnosis Intractable chronic migraine without aura and with status migrainosus- Primary Chronic migraine without aura, with intractable migraine, so stated, with status migrainosus [facility]* Diagnosis Viral illness- Primary Unspecified viral infection, in conditions classified elsewhere and of unspecified site Exposure to COVID-19 virus [facility]* Diagnosis Disturbance of skin sensation- Primary Arthritis of carpometacarpal (CMC) joint of right thumb Other chronic pain Chronic neck pain Cervicalgia [facility]* Diagnosis [facility] Right hand pain- Primary Pain in limb documented in this encounter [facility] note* Diagnosis Seizure (HCC) Other convulsions documented in this encounter [facility] note* Diagnosis Seizure (HCC) Other convulsions documented in this encounter [facility] note* Diagnosis Chronic migraine with aura- Primary Seizure disorder (HCC) Unspecified epilepsy without mention of intractable epilepsy documented in this encounter [facility] note* Diagnosis Seizure (HCC)- Primary Other convulsions documented in this encounter [facility] note* Diagnosis Intractable chronic migraine without aura and without status migrainosus- Primary Chronic migraine without aura, with intractable migraine, so stated, without mention of status migrainosus Medication overuse headache Drug induced headache, not elsewhere classified documented in this encounter [facility] note* Diagnosis Unspecified migraine- Primary documented in this encounter [facility] note* Diagnosis Sprain of right ankle, unspecified ligament, initial encounter- Primary documented in this encounter [facility] note* Diagnosis Sprain of right ankle, unspecified ligament, initial encounter- Primary Peroneal tendinitis of right lower extremity Other enthesopathy of ankle and tarsus Acute right ankle pain documented in this encounter [facility] note* Diagnosis Sprain of right ankle, unspecified ligament, initial encounter- Primary documented in this encounter [facility] note* Diagnosis Vitamin D deficiency- Primary Unspecified vitamin D deficiency Seizure (HCC) Other convulsions documented in this encounter [facility] note* Diagnosis Sore throat- Primary Acute pharyngitis URI with cough and congestion documented in this encounter [facility] note* Diagnosis Sprain of right ankle, unspecified ligament, initial encounter documented in this encounter [facility] note* Diagnosis Acute right ankle pain documented in this encounter [facility] note* Diagnosis Acute right ankle pain documented in this encounter [facility] course Narrative No data available for this section [facility] Hospital Discharge instructions No data available for this section [facility] Progress note No data available for this section [facility] Reason for referral (narrative)* Diagnostic Procedure Only (Routine) - Closed Specialty Diagnoses / Procedures Referred By Contac t Referred To Contact XR IMAGING Diagnoses Chronic neck pain Procedures XR CERV OTHER 6V AP/LAT/FLX/EXT/OBL RADEX SPINE CERVICAL 6 OR MORE VIEWS Jimena Ashley, [employer] [address] [place] [address] Xr Imaging Referral ID Status Reason Start Date Expiration Date V isits Requested Visits Authorized [id number] Closed Auto-Generate d Referral 02/27/2022 03/29/2023 1 1 [facility] for referral (narrative)* Diagnostic Procedure Only (Routine) - Closed Specialty Diagnoses / Procedures Referred By Contac t Referred To Contact XR IMAGING Diagnoses Chronic neck pain Procedures XR CERV OTHER 6V AP/LAT/FLX/EXT/OBL RADEX SPINE CERVICAL 6 OR MORE VIEWS Jimena Ashley, [employer] [address] [place] [address] Xr Imaging Referral ID Status Reason Start Date Expiration Date V isits Requested Visits Authorized [id number] Closed Auto-Generate d Referral 02/27/2022 03/29/2023 1 1 [facility] for referral (narrative)* Diagnostic Procedure Only (Urgent) - Closed Specialty Diagnoses / Procedures Referred By Contac t Referred To Contact XR IMAGING Diagnoses Right hand pain Procedures XR HAND GENERAL 3V PA/LAT/OBL RIGHT RADEX HAND MINIMUM 3 VIEWS Steph Shaw, [employer] [address] [place] [address] Xr Imaging Referral ID Status Reason Start Date Expiration Date V isits Requested Visits Authorized [id number] Closed Auto-Generate d Referral 05/06/2022 06/05/2023 1 1 [facility] for referral (narrative)* Outpatient Procedure (Routine) - Authorized Specialty Diagnoses / Procedures Referred By Contac t Referred To Contact [facility] Diagnoses Seizure (HCC) Procedures EPIL EEG LONG EEG EXTENDED MONITORING 61-119 MINUTES ELECTROENCEPHALOGRAM REC COMA/SLEEP ONLY Chay Kendrick PA-C [id number] [facility] [address] [place] [address] Referral ID Status Reason Start Date Expiration Date Visits Requested Visits Authorized [id number] Authorized Auto-Generat ed Referral 11/28/2022 11/29/2023 1 1 [facility] for referral (narrative)* Diagnostic Procedure Only (Routine) - Closed Specialty Diagnoses / Procedures Referred By Contac t Referred To Contact XR IMAGING Diagnoses Sprain of right ankle, unspecified ligament, initial encounter Procedures XR TIBIA FIBULA 2V AP/LAT RIGHT RADIOLOGIC EXAMINATION TIBIA & FIBULA 2 VIEWS Whit Puri [address] [place] [address] [place] [address] Referral ID Status Reason Start Date Expiration Date V isits Requested Visits Authorized [id number] Closed Auto-Generate d Referral 02/11/2023 03/12/2024 1 1 [facility] for referral (narrative)* Diagnostic Procedure Only (Routine) - Closed Specialty Diagnoses / Procedures Referred By Contac t Referred To Contact XR IMAGING Diagnoses Acute right ankle pain Procedures XR ANKLE GENERAL 3V AP/LAT/OBL RIGHT RADEX ANKLE COMPLETE MINIMUM 3 VIEWS Whit Puri [address] [place] [address] [place] [address] Referral ID Status Reason Start Date Expiration Date V isits Requested Visits Authorized [id number] Closed Auto-Generate d Referral 02/06/2023 03/07/2024 1 1 [facility] for visit Narrative* Diagnostic Procedure Only (Routine) - Closed Specialty Diagnoses / Procedures Referred By Contac t Referred To Contact XR IMAGING Diagnoses Chronic neck pain Procedures XR CERV OTHER 6V AP/LAT/FLX/EXT/OBL RADEX SPINE CERVICAL 6 OR MORE VIEWS Jimena Ashley, [employer] [address] [place] [address] Xr Imaging Referral ID Status Reason Start Date Expiration Date V isits Requested Visits Authorized [id number] Closed Auto-Generate d Referral 02/27/2022 03/29/2023 1 1 [facility] for visit Narrative* Diagnostic Procedure Only (Routine) - Closed Specialty Diagnoses / Procedures Referred By Contac t Referred To Contact XR IMAGING Diagnoses Sprain of right ankle, unspecified ligament, initial encounter Procedures XR TIBIA FIBULA 2V AP/LAT RIGHT RADIOLOGIC EXAMINATION TIBIA & FIBULA 2 VIEWS Whit Puri [address] [place] [address] [place] [address] Referral ID Status Reason Start Date Expiration Date V isits Requested Visits Authorized [id number] Closed Auto-Generate d Referral 02/11/2023 03/12/2024 1 1 [facility] for visit Narrative* Diagnostic Procedure Only (Routine) - Closed Specialty Diagnoses / Procedures Referred By Contac t Referred To Contact XR IMAGING Diagnoses Acute right ankle pain Procedures XR ANKLE GENERAL 3V AP/LAT/OBL RIGHT RADEX ANKLE COMPLETE MINIMUM 3 VIEWS Whit Puri [address] [place] [address] [place] [address] Referral ID Status Reason Start Date Expiration Date V isits Requested Visits Authorized [id number] Closed Auto-Generate d Referral 02/06/2023 03/07/2024 1 1 [facility] Chief Complaint Chief Complaint Description Start Date right thumb finger pain Preliminary chief co mplaint data, not yet signed by the author as of Instructions Instruction Description Start Date Patient advised to follow-up with Primary Care Physician for BMI management. 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 Review of System There may be information available, but it has not been provided by the sender. Family History There may be information available, but it has not been provided by the sender.No Family History Records Found No data available for this section No data available for this section No Family History Records FoundNo Family History Records FoundNo Family History Records Found History of Present Illness There may be information available, but it has not been provided by the sender. Medications Administered Section Inactive Administered Medications - up to 3 most recent administrations Medication Order MAR Action Action Date Dose Rate Site eptinezumab-jjmr 100 mg in NaCl 0.9% 100 mL (VYEPTI) 100 mg, INTRAVENOUS, at 200 mL/hr, Administer over 30 Minutes, ONCE, 1 dose, On Thu01/01/22 at 1400, Administer with 0.2 micron filter. Flush with 20 mL NaCl 0.9% after infusion. EXP: (8 hr). New Bag/Syringe/Bottle 01/01/2022 2:25 PM EDT 100 mg 200 mL/hr Inactive Administered Medications - up to 3 most recent administrations Medication Order MAR Action Action Date Dose Rate Site keTORolac 60 mg injection (TORADOL) 60 mg, INTRAMUSCULAR, ONCE, 1 dose, On Thu05/06/22 at 1100, Ketorolac (Toradol) is indicated for the short-term (up to 5 days) management of moderately severe acute pain. Continuation of ketorolac (Toradol) beyond 5 days increases the risk of developing serious adverse events. Please verify the duration of therapy for ketorolac (Toradol)., If ordered PRN for pain, patient/guardian may elect to receive this medication for higher pain levels INSTEAD of the opioid, if preferred: Yes Given 05/06/2022 10:47 AM EDT 60 mg Buttocks, Right Inactive Administered Medications - up to 3 most recent administrations Medication Order MAR Action Action Date Dose Rate Site keTORolac 60 mg injection (TORADOL) 60 mg, INTRAMUSCULAR, ONCE, 1 dose, On Judy 09/25/22 at 1030, Ketorolac (Toradol) is indicated for the short-term (up to 5 days) management of moderately severe acute pain. Continuation of ketorolac (Toradol) beyond 5 days increases the risk of developing serious adverse events. Please verify the duration of therapy for ketorolac (Toradol)., If ordered PRN for pain, patient/guardian may elect to receive this medication for higher pain levels INSTEAD of the opioid, if preferred: Yes Given 09/25/2022 10:29 AM EST 60 mg Buttocks, Left Health Concerns Infection Onset Date Last Indicated Resolved Time COVID-19 Rule-Out 01/07/2022 01/07/2022 Summary Purpose Reason for Referral Specialty Diagnoses / Procedures Referred By Jordyn connolly Referred To Contact [facility] Diagnoses Sprain of right ankle, unspecified ligament, initial encounter Procedures CONSULT TO PHYSICAL THERAPY PHYSICAL THERAPY EVALUATION HIGH COMPLEX 45 MINS Whit Puri [address] [place] [address] [facility] [address] [place] [address] Referral ID Status Reason Start Date Expiration Date Visits Requested Visits Authorized [id number] Pending Review Auto-Generat ed Referral 02/11/2023 02/11/2024 1 1 Specialty Diagnoses / Procedures Referred By Jordyn Referred To Contact XR IMAGING Diagnoses Sprain of right ankle, unspecified ligament, initial encounter Procedures XR TIBIA FIBULA 2V AP/LAT RIGHT RADIOLOGIC EXAMINATION TIBIA & FIBULA 2 VIEWS Whit Puri [address] [place] [address] Xr Imaging Referral ID Status Reason Start Date Expiration Date Visits Requested Visits Authorized [id number] Pending Review Auto-Generat ed Referral 02/11/2023 03/12/2024 1 1 Specialty Diagnoses / Procedures Referred By Jordyn connolly Referred To Contact MR IMAGING Diagnoses Acute right ankle pain Procedures MRI ANKLE WO IVCON RIGHT MRI ANY JT LOWER EXTREM W/O CONTRAST MATRL Jaxson Whit [address] [place] [address] Mr Imaging Referral ID Status Reason Start Date Expiration Date Visits Requested Visits Authorized [id number] Pending Review Auto-Generat ed Referral 03/10/2023 04/08/2024 1 1 Specialty Diagnoses / Procedures Referred By Contac t Referred To Contact [facility] Diagnoses Sprain of right ankle, unspecified ligament, initial encounter Procedures PT REHAB FOLLOW UP ORDER THERAPEUTIC EXERCISES RE, EA 15 MIN. Whit Puri [address] [place] [address] [facility] [id number] [place] [address] Referral ID Status Reason Start Date Expiration Date Visits Requested Visits Authorized [id number] Pending Review PCP Requested Referral Auto-Generate d Referral 03/13/2023 06/11/2023 1 1 Specialty Diagnoses / Procedures Referred By Contac t Referred To Contact Diagnoses Seizure (HCC) Uriel Orozco MD [address] [facility] [address] [place] [address] Referral ID Status Reason Start Date Expiration Date Visits Re quested Visits Authorized [id number] Closed 1 1 Referral ID Status Reason Start Date Expiration Date Visits Re quested Visits Authorized [id number] Closed 1 1 Specialty Diagnoses / Procedures Referred By Contac t Referred To Contact MR IMAGING Diagnoses Acute right ankle pain Procedures MRI ANKLE WO IVCON RIGHT MRI ANY JT LOWER EXTREM W/O CONTRAST Whit Taylor [address] [place] [address] [place] [address] Referral ID Status Reason Start Date Expiration Date V isits Requested Visits Authorized [id number] Closed Auto-Generate d Referral 03/26/2023 05/25/2023 1 1 Additional Source Comments Reason for Visit (unrecogniz ed section and content) Reason Comments Follow Up Reason Comments Results Orders Reason Comments Appointment Reason Comments Appointment ER f/u- scheduled Reason Comments Infusion Headaches Specialty Diagnoses / Procedures Referred By Contac t Referred To Contact Neurology / NEUROLOGY Diagnoses vyepti Procedures INFUSION [place] [address] [facility] [address] [facility] [place] [address] Referral ID Status Reason Start Date Expiration Date V isits Requested Visits Authorized [id number] Pending Review 01/01/2022 04/01/2022 1 1 Reason Comments Sore Throat pain rated 1, 1 day covid exposure , chills Cough intermittent SOB, ch est pain Reason Comments Appointment Referral to PM Reason Comments New Patient Reason Comments Pain Pt reported Hx surge ry 07/25/22, wearing a brace (RT) hand pain rated 9, x1 day. Reason Onset Date Comments Refill Request 08/10/2022 Reason Comments Medication Concern Zonisamide Reason Comments Headache Pt reported [place], unkn own time period. Reason Comments Seizures Seizure Reason Comments Follow Up Seizures Reason Comments Headache migraine Reason Comments New Pain Ankle Pain Reason Comments Established Patient Follow Up Pain Swelling Numbness Fracture Reason Comments PT Eval Specialty Diagnoses / Procedures Referred By Jordyn t Referred To Contact [facility] Diagnoses Sprain of right ankle, unspecified ligament, initial encounter Procedures CONSULT TO PHYSICAL THERAPY PHYSICAL THERAPY EVALUATION HIGH COMPLEX 45 MINS Whit Puri [address] [place] [id number] [facility] [address] [place] [address] Referral ID Status Reason Start Date Expiration Date V isits Requested Visits Authorized [id number] Closed Auto-Generate d Referral 08/10/2022 08/09/2023 1 1 Reason Comments Results Reason Comments Missed Appointment New patient missed a ppointment. Reason Comments Sore Throat ST, [place]DIS[place] and sinus x 3 days Specialty Diagnoses / Procedures Referred By Contac t Referred To Contact [facility] Diagnoses Acute right ankle pain Procedures MRI ANKLE WO IVCON RIGHT MRI ANY JT LOWER EXTREM W/O CONTRAST MATRL Whit Puri [address] [place] [address] Mr Imaging [id number] Referral ID Status Reason Start Date Expiration Date V isits Requested Visits Authorized [id number] Closed Auto-Generate d Referral 03/26/2023 05/25/2023 1 1 Source Comments (unrecognize d section and content) In the event this informatio n is protected by the Federal Confidentiality of Alcohol and Drug Abuse Patient Records regulations: The Federal rules restrict any use of the information to criminally investigate or prosecute any alcohol or drug abuse patient.TrihealthIn the event this information is protected by the Federal Confidentiality of Alcohol and Drug Abuse Patient Records regulations: The Federal rules restrict any use of the information to criminally investigate or prosecute any alcohol or drug abuse patient.TrihealthIn the event this information is protected by the Federal Confidentiality of Alcohol and Drug Abuse Patient Records regulations: The Federal rules restrict any use of the information to criminally investigate or prosecute any alcohol or drug abuse patient.TrihealthIn the event this information is protected by the Federal Confidentiality of Alcohol and Drug Abuse Patient Records regulations: The Federal rules restrict any use of the information to criminally investigate or prosecute any alcohol or drug abuse patient.TrihealthIn the event this information is protected by the Federal Confidentiality of Alcohol and Drug Abuse Patient Records regulations: The Federal rules restrict any use of the information to criminally investigate or prosecute any alcohol or drug abuse patient.TrihealthIn the event this information is protected by the Federal Confidentiality of Alcohol and Drug Abuse Patient Records regulations: The Federal rules restrict any use of the information to criminally investigate or prosecute any alcohol or drug abuse patient.TrihealthIn the event this information is protected by the Federal Confidentiality of Alcohol and Drug Abuse Patient Records regulations: The Federal rules restrict any use of the information to criminally investigate or prosecute any alcohol or drug abuse patient.TrihealthIn the event this information is protected by the Federal Confidentiality of Alcohol and Drug Abuse Patient Records regulations: The Federal rules restrict any use of the information to criminally investigate or prosecute any alcohol or drug abuse patient.TrihealthIn the event this information is protected by the Federal Confidentiality of Alcohol and Drug Abuse Patient Records regulations: The Federal rules restrict any use of the information to criminally investigate or prosecute any alcohol or drug abuse patient.TrihealthIn the event this information is protected by the Federal Confidentiality of Alcohol and Drug Abuse Patient Records regulations: The Federal rules restrict any use of the information to criminally investigate or prosecute any alcohol or drug abuse patient.TrihealthIn the event this information is protected by the Federal Confidentiality of Alcohol and Drug Abuse Patient Records regulations: The Federal rules restrict any use of the information to criminally investigate or prosecute any alcohol or drug abuse patient.TrihealthIn the event this information is protected by the Federal Confidentiality of Alcohol and Drug Abuse Patient Records regulations: The Federal rules restrict any use of the information to criminally investigate or prosecute any alcohol or drug abuse patient.TrihealthIn the event this information is protected by the Federal Confidentiality of Alcohol and Drug Abuse Patient Records regulations: The Federal rules restrict any use of the information to criminally investigate or prosecute any alcohol or drug abuse patient.TrihealthIn the event this information is protected by the Federal Confidentiality of Alcohol and Drug Abuse Patient Records regulations: The Federal rules restrict any use of the information to criminally investigate or prosecute any alcohol or drug abuse patient.TrihealthIn the event this information is protected by the Federal Confidentiality of Alcohol and Drug Abuse Patient Records regulations: The Federal rules restrict any use of the information to criminally investigate or prosecute any alcohol or drug abuse patient.TrihealthIn the event this information is protected by the Federal Confidentiality of Alcohol and Drug Abuse Patient Records regulations: The Federal rules restrict any use of the information to criminally investigate or prosecute any alcohol or drug abuse patient.TrihealthIn the event this information is protected by the Federal Confidentiality of Alcohol and Drug Abuse Patient Records regulations: The Federal rules restrict any use of the information to criminally investigate or prosecute any alcohol or drug abuse patient.TrihealthIn the event this information is protected by the Federal Confidentiality of Alcohol and Drug Abuse Patient Records regulations: The Federal rules restrict any use of the information to criminally investigate or prosecute any alcohol or drug abuse patient.TrihealthIn the event this information is protected by the Federal Confidentiality of Alcohol and Drug Abuse Patient Records regulations: The Federal rules restrict any use of the information to criminally investigate or prosecute any alcohol or drug abuse patient.TrihealthIn the event this information is protected by the Federal Confidentiality of Alcohol and Drug Abuse Patient Records regulations: The Federal rules restrict any use of the information to criminally investigate or prosecute any alcohol or drug abuse patient.TrihealthIn the event this information is protected by the Federal Confidentiality of Alcohol and Drug Abuse Patient Records regulations: The Federal rules restrict any use of the information to criminally investigate or prosecute any alcohol or drug abuse patient.TrihealthIn the event this information is protected by the Federal Confidentiality of Alcohol and Drug Abuse Patient Records regulations: The Federal rules restrict any use of the information to criminally investigate or prosecute any alcohol or drug abuse patient.TrihealthIn the event this information is protected by the Federal Confidentiality of Alcohol and Drug Abuse Patient Records regulations: The Federal rules restrict any use of the information to criminally investigate or prosecute any alcohol or drug abuse patient.TrihealthIn the event this information is protected by the Federal Confidentiality of Alcohol and Drug Abuse Patient Records regulations: The Federal rules restrict any use of the information to criminally investigate or prosecute any alcohol or drug abuse patient.TrihealthIn the event this information is protected by the Federal Confidentiality of Alcohol and Drug Abuse Patient Records regulations: The Federal rules restrict any use of the information to criminally investigate or prosecute any alcohol or drug abuse patient.TrihealthIn the event this information is protected by the Federal Confidentiality of Alcohol and Drug Abuse Patient Records regulations: The Federal rules restrict any use of the information to criminally investigate or prosecute any alcohol or drug abuse patient.TrihealthIn the event this information is protected by the Federal Confidentiality of Alcohol and Drug Abuse Patient Records regulations: The Federal rules restrict any use of the information to criminally investigate or prosecute any alcohol or drug abuse patient.[facility] Teams (unrecognized sec tion and content) Chick Room Supervisor Relationship Specialty Start Date End Date Zaida Masters Jr. PCP - General Internal Medicine 08/27/12 Chick Room Supervisor Relationship Specialty Start Date End Date Zaida Masters Jr. PCP - General Internal Medicine 08/27/12 Chick Room Supervisor Relationship Specialty Start Date End Date Zaida Masters Jr. PCP - General Internal Medicine 08/27/12 Chick Room Supervisor Relationship Specialty Start Date End Date Zaida Masters Jr. PCP - General Internal Medicine 08/27/12 Chick Room Supervisor Relationship Specialty Start Date End Date Zaida Masters Jr. PCP - General Internal Medicine 08/27/12 Chick Room Supervisor Relationship Specialty Start Date End Date Zaida Masters Jr., MD PCP - General Internal Medicine 08/27/12 Chick Room Supervisor Relationship Specialty Start Date End Date Zaida Masters Jr., MD PCP - General Internal Medicine 08/27/12 Chick Room Supervisor Relationship Specialty Start Date End Date Zaida Masters Jr., MD PCP - General Internal Medicine 08/27/12 Chick Room Supervisor Relationship Specialty Start Date End Date Zaida Masters Jr., MD PCP - General Internal Medicine 08/27/12 Chick Room Supervisor Relationship Specialty Start Date End Date Zaida Masters Jr., MD PCP - General Internal Medicine 08/27/12 INFORMATION SOURCE (unrecogn ized section and content) DATE CREATED AUTHOR AUTHOR'S ORGANNAE ATION 04/10/2023 [facility] DATE CREATED AUTHOR AUTHOR'S ORGANIZ ATION 08/25/2023 [facility] DATE CREATED AUTHOR AUTHOR'S ORGANIZ ATION 08/27/2023 [facility] FOR RECORDS PERTAINING TO PATIENTS WHO ARE OR HAVE BEEN ENROLLED IN A CHEMICAL DEPENDENCY/SUBSTANCEABUSE PROGRAM, SOME INFORMATION MAY BE OMITTED. This clinical summary was aggregated from multiple sources. Caution should be exercised in using it in the provision of clinical care. This summary normalizes information from multiple sources, and as a consequence, information in this document may materially change the coding, format and clinical context of patient data. In addition, data may be omitted in some cases. CLINICAL DECISIONS SHOULD BE BASED ON THE PRIMARY CLINICAL RECORDS. [facility]. provides no warranty or guarantee of the accuracy or completeness of information in this document.
[2023-09-19] MEDS: HYDROcodone Bitartrate/Apap 5/325 Tablet PO (23:57)
== END 2023-09-20 00:04 | disposition home or self-care (01) ==
LOC: ED 23:50
PROVIDERS: Emergency Provider Emergency Medicine; PCP Nurse Practitioner Family; Visit Provider Emergency Medicine
DX: S83.92XA Sprain of unspecified site of left knee, initial encounter (principal); G89.29 Other chronic pain; X58.XXXA Exposure to other specified factors, initial encounter
CPT/HCPCS: 73564; 99282

== ENCOUNTER → 2023-09-23 | Outpatient (CLI) | payer MEDICAID, SELFPAY ==
--- OUTSIDE RECORDS SUMMARY | 2023-09-23 06:35 | XMS RPT_ITS | CCD ---
Author Name Unknown Address [address] [place] [address] Organization [facility] Care Team Providers Care Product Lister Name Role Phone Ludwig Mace Unavailable Alberto Matamoros MD Unavailable Zaida Masters Jr. Primary Care Provider Terry Boykin MD, Zaida Barahona Primary Care Provider Terry Boykin MD, Zaida Barahona Primary Care Provider Terry Boykin MD, Zaida Barahona Primary Care Provider Unavailable Primary Care Provider Unavailabl e YESICA BEAN Attending Unavailable YESICA BEAN Referring Unavailable ZAIDA MASTERS JR Primary Care Unavailable [facility] CHILD SUPPORT INVESTIGATOR-GEMMA, ELIZ [facility] Care Physician DAYAN HUMMEL Attending Unavailab rohit GIBSON APRN-GIN OPERATOR, [facility] Care Unavailabl e DAYAN HUMMEL Attending Unavailab le [facility] CHILD SUPPORT IN[facility], [facility] Care Unavailabl e TESTWHIT JAQUEZ Attending Unavailable TESTRAKE, WHIT Referring Unavailable TESTRAKE, WHIT Referring Unavailable TESTRARIZWAN, WHIT Attending Unavailable TESTRAKE, WHIT Referring Unavailable TESTRAKE, [...] (substance)] Drug Allergy 12-23-19 17 HIVES, VOMITING [facility] Work Phone: (1 source) Adrenergic Beta-Antagonists drug allergy 03-08-20 19 heart races [facility] Work Phone: (1 source) diphenhydrAMINE Drug Allergy 03-08-20 19 nasty personality [facility] Work Phone: (1 source) Morphine Drug Allergy 03-08-20 19 throat closes [facility] Work Phone: (1 source) Penicillins (Antibiotic) drug allergy 03-08-20 19 throat closes [facility] Work Phone: (1 source) Promethazine Drug Allergy 03-08-20 19 heart race [facility] Work Phone: (20 sources) Aspirin; Translations: [ASPIRIN] Drug Allergy 09-24-19 19 Rash [facility] (20 sources) Codeine; Translations: [CODEINE] [facility] ([facility] sources) diphenhydrAMINE; Translations: [DIPHENHYDRAMINE HCL] Drug Allergy 07-01-20 06 Mental Status Change [facility] Work Phone: (20 sources) Morphine; Translations: [MORPHINE] Drug Allergy 07-01-20 06 Swelling [facility] Work Phone: (20 sources) Penicillin G; Translations: [PENICILLIN G] Drug Allergy 07-01-20 06 Hives, Swelling [facility] Work Phone: (20 sources) Promethazine; Translations: [PROMETHAZINE HCL] Drug Allergy 07-01-20 06 Intolerance [facility] (10 sources) Salicylic Acid; Translations: [SALICYLATES] Drug Allergy 07-01-20 [facility] Work Phone: (20 sources) Shellfish; Translations: [SHELLFISH DERIVED] Drug Allergy 10-20-19 Anaphylaxis [facility] (19 sources) Salicylate product Propensity to adverse reactions 07-01-20 [facility] Work Phone: (2 sources) diphenhydrAMINE; Translations: [diphenhydramine] Drug Allergy COMBATIVE [facility] (2 sources) Metoprolol; Translations: [metoprolol] Drug Allergy CHEST ON FIRE [facility] (2 sources) Promethazine; Translations: [promethazine] Drug Allergy DE [place] VEINS [facility] (2 sources) Seafood Food allergy ANAPHYLACTIC [facility] (2 sources) Shellfish; Translations: [shellfish] Food allergy ANAPHYLACTIC [facility] (4 sources) Fish; Translations: [FISH CONTAINING PRODUCTS] Drug Allergy 01-13-20 Rash [facility] Medications Current Medications Medication Drug Class(es) Dates Sig (Normalized) Sig (Original) escitalopram 20 mg oral tablet (2 sources) Serotonin Reuptake Inhibitor Start: 10-30-2020 escitalopram 20 mg oral tablet Dose : 20 mg = 1 tab(s), Oral, qDay, # 90 tab(s), 0 Refill(s), Pharmacy: [facility] [id number], Depressed state, 153, cm, 10/30/20 15:10:00 [...] hours as needed for pain OXYCODONE-ACETAMIN OPHEN [id number] Chencho MENDEZ ARIPiprazole 2 mg oral tablet [...] 09:12-0400 Body temperature 97.59 [degF] Stan Rodgers CHILD SUPPORT INVESTIGATOR.GIN OPERATOR Work Phone: [facility] 04-28-2023 09:12-0400 Body weight 79.74 kg Stan Rodgers CHILD SUPPORT INVESTIGATOR.GIN OPERATOR Work Phone: [facility] 04-28-2023 09:12-0400 Diastolic blood pressure 64 mm[Hg] Stan Rodgers CHILD SUPPORT INVESTIGATOR.GIN OPERATOR Work Phone: [facility] 04-28-2023 09:12-0400 Heart rate 91 /min Stan Rodgers CHILD SUPPORT INVESTIGATOR.GIN OPERATOR Work Phone: [facility] 04-28-2023 09:12-0400 Respiratory rate 18 /min Stan Rodgers CHILD SUPPORT INVESTIGATOR.GIN OPERATOR Work Phone: [facility] 04-28-2023 09:12-0400 SaO2% (BldA) [Mass fraction] 98 % Stan Rodgers CHILD SUPPORT INVESTIGATOR.GIN OPERATOR Work Phone: [facility] 04-28-2023 09:12-0400 Systolic blood pressure 108 mm[Hg] Stan Rodgers CHILD SUPPORT INVESTIGATOR.GIN OPERATOR Work Phone: [facility] 12-24-2022 11:22-0400 Body temperature 97.39 [degF] Misha Chambers CHILD SUPPORT INVESTIGATOR.GIN OPERATOR Work Phone: [facility] 12-24-2022 11:22-0400 Body weight 81.65 kg Misha Chambers CHILD SUPPORT INVESTIGATOR.GIN OPERATOR Work Phone: [facility] 12-24-2022 11:22-0400 Diastolic blood pressure 80 mm[Hg] Misha Reyse CHILD SUPPORT INVESTIGATOR.GIN OPERATOR Work Phone: [facility] 12-24-2022 11:22-0400 Heart rate 75 /min Misha Chambers CHILD SUPPORT INVESTIGATOR.GIN OPERATOR Work Phone: [facility] 12-24-2022 11:22-0400 Respiratory rate 21 /min Misha Reyes CHILD SUPPORT INVESTIGATOR.GIN OPERATOR Work Phone: [facility] 12-24-2022 11:22-0400 SaO2% (BldA) [Mass fraction] 100 % Misha Chambers CHILD SUPPORT INVESTIGATOR.GIN OPERATOR Work Phone: [facility] 12-24-2022 11:22-0400 Systolic blood pressure 102 mm[Hg] Misha Chambers CHILD SUPPORT INVESTIGATOR.GIN OPERATOR Work Phone: [facility] 11-28-2022 08:43-0400 Body height 154.9 cm Uriel Orozco MD Work Phone: [facility] 11-28-2022 08:43-0400 Body weight 63.5 kg Uriel Orozco MD Work Phone: [facility] 11-28-2022 08:43-0400 Diastolic blood pressure 87 mm[Hg] Uriel Orozco MD Work Phone: [facility] 11-28-2022 08:43-0400 Heart rate 68 /min Uriel Orozco MD Work Phone: [facility] 11-28-2022 08:43-0400 SaO2% (BldA) [Mass fraction] 100 % Uriel Orozco MD Work Phone: [facility] 11-28-2022 08:43-0400 Systolic blood pressure 120 mm[Hg] Uriel Orozco MD Work Phone: [facility] 11-19-2022 15:30-0400 Body height 154.9 cm Yesica Bean MD Work Phone: [facility] 11-19-2022 15:30-0400 Body weight 80.74 kg Yesica Bean MD Work Phone: [facility] 11-19-2022 15:30-0400 Diastolic blood pressure 75 mm[Hg] Yesica Bean MD Work Phone: [facility] 11-19-2022 15:30-0400 Heart rate 79 /min Yesica Bean MD Work Phone: [facility] 11-19-2022 15:30-0400 Systolic blood pressure 109 mm[Hg] Yesica Bean MD Work Phone: [facility] 09-25-2022 09:57-0500 Body temperature 98.71 [degF] Precious Athy PA-C Work Phone: [facility] 09-25-2022 09:57-0500 Diastolic blood pressure 84 mm[Hg] Precious Athy PA-C Work Phone: [facility] 09-25-2022 09:57-0500 Heart rate 74 /min Precious Athy PA-C Work Phone: [facility] 09-25-2022 09:57-0500 Respiratory rate 18 /min Precious Athy PA-C Work Phone: [facility] 09-25-2022 09:57-0500 SaO2% (BldA) [Mass fraction] 99 % Precious Athy PA-C Work Phone: [facility] 09-25-2022 09:57-0500 Systolic blood pressure 136 mm[Hg] Precious Athy PA-C Work Phone: [facility] 05-06-2022 10:26-0400 Body temperature 97.59 [degF] Steph Shaw CHILD SUPPORT INVESTIGATOR.GIN OPERATOR Work Phone: [facility] 05-06-2022 10:26-0400 Body weight 80.02 kg Steph Shaw CHILD SUPPORT INVESTIGATOR.GIN OPERATOR Work Phone: [facility] 05-06-2022 10:26-0400 Diastolic blood pressure 76 mm[Hg] Steph Shaw CHILD SUPPORT INVESTIGATOR.GIN OPERATOR Work Phone: [facility] 05-06-2022 10:26-0400 Heart rate 76 /min Steph Shaw CHILD SUPPORT INVESTIGATOR.GIN OPERATOR Work Phone: [facility] 05-06-2022 10:26-0400 Respiratory rate 16 /min Steph Shaw CHILD SUPPORT INVESTIGATOR.GIN OPERATOR Work Phone: [facility] 05-06-2022 10:26-0400 SaO2% (BldA) [Mass fraction] 98 % Steph Shaw CHILD SUPPORT INVESTIGATOR.GIN OPERATOR Work Phone: [facility] 05-06-2022 10:26-0400 Systolic blood pressure 128 mm[Hg] Steph Shaw CHILD SUPPORT INVESTIGATOR.GIN OPERATOR Work Phone: [facility] 02-27-2022 08:51-0400 Heart rate 64 /min Jimena [place] CHILD SUPPORT INVESTIGATOR.GIN OPERATOR Work Phone: [facility] 02-27-2022 08:51-0400 Respiratory rate 16 /min Jimena Dion CHILD SUPPORT INVESTIGATOR.GIN OPERATOR Work Phone: [facility] 02-27-2022 08:51-0400 SaO2% (BldA) [Mass fraction] 99 % Jimena [place] CHILD SUPPORT INVESTIGATOR.GIN OPERATOR Work Phone: [facility] 01-07-2022 10:25-0400 Body temperature 97.39 [degF] Lori Praisler-Wood CHILD SUPPORT INVESTIGATOR.GIN OPERATOR Work Phone: [facility] 01-07-2022 10:25-0400 Body weight 81.1 kg Lori Praisler-Wood CHILD SUPPORT INVESTIGATOR.GIN OPERATOR Work Phone: [facility] 01-07-2022 10:25-0400 Diastolic blood pressure 72 mm[Hg] Lori Praisler-Wood CHILD SUPPORT INVESTIGATOR.GIN OPERATOR Work Phone: [facility] 01-07-2022 10:25-0400 Heart rate 93 /min Lori Praisler-Wood CHILD SUPPORT INVESTIGATOR.GIN OPERATOR Work Phone: [facility] 01-07-2022 10:25-0400 Respiratory rate 20 /min Lori MckeonKyung CHILD SUPPORT INVESTIGATOR.GIN OPERATOR Work Phone: [facility] 01-07-2022 10:25-0400 SaO2% (BldA) [Mass fraction] 96 % Lori Mckeongloria-Alex CHILD SUPPORT INVESTIGATOR.GIN OPERATOR Work Phone: [facility] 01-07-2022 10:25-0400 Systolic blood pressure 114 mm[Hg] Lori MckeonKyung CHILD SUPPORT INVESTIGATOR.GIN OPERATOR Work Phone: [facility] 01-01-2022 13:00-0400 Body temperature 97.3 [degF] Neur Infusion Work Phone: [facility] 01-01-2022 13:00-0400 Diastolic blood pressure 78 mm[Hg] Neur Infusion Work Phone: [facility] 01-01-2022 13:00-0400 Heart rate 70 /min Neur Infusion Work Phone: [facility] 01-01-2022 13:00-0400 Systolic blood pressure 109 mm[Hg] Neur Infusion Work Phone: [facility] 11-11-2021 14:38-0400 Body height 154.9 cm Austin Go Jr., MD Work Phone: [facility] 11-11-2021 14:38-0400 Body weight 81.19 kg Austin Go Jr., MD Work Phone: [facility] 11-11-2021 14:38-0400 Respiratory rate 16 /min Austin Go Jr., MD Work Phone: [facility] 06-11-2017 15:25-0400 BMI (Body Mass Index) 27.21 kg/m2 Ludwig MENDEZ [facility] Work Phone: 06-11-2017 15:25-0400 Body Temperature 97.4 [degF] Ludwig MENDEZ [facility] Work Phone: 06-11-2017 15:25-0400 BP Diastolic 74 mm[Hg] Ludwig MENDEZ [facility] Work Phone: 06-11-2017 15:25-0400 BP Systolic 106 mm[Hg] Ludwig MENDEZ [facility] Work Phone: 06-11-2017 15:25-0400 Height 154.94 cm Ludwig MENDEZ [facility] Work Phone: 06-11-2017 15:25-0400 Pulse (Heart Rate) 82 /min Ludwig MENDEZ [facility] Work Phone: 06-11-2017 15:25-0400 Respiratory Rate 14 /min Ludwig MENDEZ [facility] Work Phone: 06-11-2017 15:25-0400 Weight 65.32 kg Ludwig MENDEZ [facility] Work Phone: NEGATED: Highlighted [id number] 14:09-0400 BMI (Body Mass Index) 31.16 kg/m2 Lauren Sharma [facility] Work Phone: NEGATED: Highlighted [id number] 14:09-0400 Body weight 72.12 kg Lauren Sharma [facility] Work Phone: NEGATED: Highlighted [id number] 14:09-0400 Body weight 72 kg Lauren Sharma BALE OPENER [facility] Work Phone: NEGATED: Highlighted [id number] 14:09-0400 BP Diastolic 74 mm[Hg] Lauren Sharma [facility] Work Phone: NEGATED: Highlighted [id number] 14:09-0400 BP Systolic 107 mm[Hg] Lauren Sharma BALE OPENER [facility] Work Phone: NEGATED: Highlighted [id number] 14:09-0400 Height 152.4 cm Lauren Sharma BALE OPENER [facility] Work Phone: NEGATED: Highlighted [id number] 14:09-0400 Height 152 cm Lauren Sharma BALE OPENER [facility] Work Phone: NEGATED: Highlighted [id number] 14:09-0400 Pulse (Heart Rate) 70 /min Lauren Sharma LPN [facility] Work Phone: Encounters Encounter Date Encounter Type Care Provider Facility Start: 08-24-2023 End: 08-24-2023 ambulatory LORI CORRAL Facility:[facility] Start: 04-28-2023 End: 04-28-2023 ambulatory WHIT PURI Facility:[facility] Start: 04-28-2023 End: 04-28-2023 Office outpatient visit 15 minutes Stan Rodgers APRN.GIN OPERATOR Work Phone: [facility] Procedures Date Procedure Procedure Detail [...] cervical 6 or more views Jimena Ashley CHILD SUPPORT INVESTIGATOR.GIN OPERATOR Work Phone: Start: 03-08-2019 End: 03-08-2019 Blood [...] 03-15-2018 Cardiovascular stres s testing DAYAN FISH CHILD SUPPORT INVESTIGATOR-GIN OPERATOR Start: 01-05-2018 Colonoscopy Austin Banerjee Jr., MD Work Phone: Start: 12-25-2017 Mammography Austin Banerjee Jr., MD Work Phone: Abdominal hysterectomy Abdominal hysterectomy DAYAN FISH CHILD SUPPORT INVESTIGATOR-GIN OPERATOR Cardiac catheterization ROXA NNE FISH CHILD SUPPORT INVESTIGATOR-GIN OPERATOR section DAYAN FIS H CHILD SUPPORT INVESTIGATOR-GIN OPERATOR Colonoscopy DAYAN FISH CHILD SUPPORT INVESTIGATOR-GIN OPERATOR Hysterectomy DAYAN FISH CHILD SUPPORT INVESTIGATOR-GIN OPERATOR Ligation of fallopia n tube DAYAN FISH CHILD SUPPORT INVESTIGATOR-GIN OPERATOR NEGATED: Highlighted rowStart: 03-08-2019 End: 03-08-2019 Documentation of current medications Lauren Sharma LPN Plan of Treatment Date Care Activity Detail Author Start: 12-26-2025 DIABETES SCREEN DIABETES SCREEN [facility] Start: 12-26-2025 Diabetes Screening Diabetes Screening [facility] Start: 11-14-2025 Urine microalbumin profile [facility] Start: 12-02-2024 DIABETES SCREEN DIABETES SCREEN [facility] Start: 04-28-2024 BP Controlled (<130/80) BP Controlled (<130/80) [facility] Start: 04-04-2024 DIABETES SCREEN DIABETES SCREEN [facility] Start: 12-27-2023 BP CONTROLLED (<130/80) BP CONTROLLED (<130/80) [facility] Start: 05-06-2023 BP CONTROLLED (<130/80) BP CONTROLLED (<130/80) [facility] Start: 04-10-2023 Covid-19 Vaccine ( season) Covid-19 Vaccine () [facility] Start: 04-10-2023 Influenza vaccination [facility] Start: 01-07-2023 BP CONTROLLED (<130/80) BP CONTROLLED (<130/80) [facility] Start: 11-28-2022 End: 01-28-2023 lamoTRIgine [Mass/volume] in Serum or Plasma LAMOTRIGINE Lab Routine Seizure (HCC) Expected: 11/28/2022, Expires: 01/28/2023 [facility] Work Phone: Immunizations Immunization Date Immunization Notes Care Provider Fa cornelio 12-24-2020 COVID-19 vaccine, ag e 12+ yr (PFIZER-BIONTECH - PURPLE TOP) Austin Go Jr., MD Work Phone: [facility] 12-03-2020 COVID-19 vaccine, ag e 12+ yr (PFIZER-BIONTECH - PURPLE TOP) Austin Go Jr., MD Work Phone: [facility] 11-15-2015 tetanus toxoid, redu bin diphtheria toxoid, and acellular pertussis vaccine, adsorbed Austin Go Jr., MD Work Phone: [facility] Work Phone: 07-26-2006 diphtheria and tetan us toxoids, adsorbed for pediatric use Austin Go Jr., MD Work Phone: [facility] Work Phone: Payers Date Payer Category Payer Medicaid [id number] 2006 Medicaid [employer] [id number] 2006-Present [phone] [address] [place] [address] Medicaid [id number] 2006 Medicaid [id number] 2006 Medicaid [id number] 1974 Unknown [id number] 1974 Unknown [id number] Social History Date Type Detail Facility Start: 07-12-2019 Tobacco smoking stat [facility] Never smoked tobacco [facility] Start: 11-11-2021 End: 02-11-2023 Alcohol intake Current drinker of alcohol (finding) [facility] Start: 04-02-2021 History SDOH Alcohol Frequency 5 [facility] Start: 04-02-2021 History SDOH Alcohol Std Drinks 1 [facility] Start: 11-29-2010 History SDOH Alcohol Comment rare [facility] Start: 04-02-2021 History SDOH Social Connections Membership 2 [facility] Start: 04-02-2021 History SDOH Social Connections Living 98 [facility] Start: 04-02-2021 History SDOH Physica l Activity DPW 7 [facility] Start: 04-02-2021 History SDOH Physica l Activity MPS 15 [facility] Start: 04-02-2021 Education 12 [facility] Start: 1975 Sex Assigned At Female C [facility] Start: 11-01-2021 End: 12-25-2022 Exposure to SARS-CoV-2 (event) Not sure [facility] Start: 12-28-2021 End: 01-07-2022 Exposure to SARS-CoV-2 (event) Yes [facility] Work Phone: Start: 04-02-2021 End: 12-25-2022 History of Social function [facility] Start: 04-02-2021 End: 12-25-2022 Social connection and isolation panel [facility] Do you belong to any clubs or organizations such as hinduism groups, unions, fraternal or athletic groups, or school groups? No [facility] Are you now , , , , never or living with a partner? Refused [facility] How often to you hav e a drink containing alcohol? 4 or more times a week [facility] How many standard drinks containing alcohol do you have on a typical day? 1 or 2 [facility] How often do you hav e 6 or more drinks on 1 occasion? Never [facility] How hard is it for y ou to pay for the very basics like food, housing, medical care, and heating Not hard at all [facility] Do you feel stress - tense, restless, nervous, or anxious, or unable to sleep at night because your mind is troubled all the time - these days [OSQ] Very much [facility] (I/We) worried ashleigh er (my/our) food would run out before (I/we) got money to buy more. Never true [facility] Start: 06-17-2021 Gender identity Identifies as female gender (finding) [facility] NEGATED: Highlighted rowStart: 03-08-2019 End: 03-08-[address] [facility] Work Phone: NEGATED: Highlighted rowStart: 03-08-2019 End: 03-08-2019 Details of drug misuse behavior Details of drug misuse behavior [facility] Work Phone: NEGATED: Highlighted rowStart: 03-08-2019 End: 03-08-[address] Employment detail Employment detail [facility] Work Phone: NEGATED: Highlighted rowStart: 03-08-2019 End: 03-08-2019 How many days of moderate to strenuous exercise, like a brisk walk, did you do in the last 7 days? How many days of moderate to strenuous exercise, like a brisk walk, did you do in the last [address]? [facility] Work Phone: NEGATED: Highlighted rowStart: 03-08-2019 End: 03-08-[address] [facility] Work Phone: Medical Equipment Procedure Code Equipment Code Equipment Origin al Text Equipment Identifier Dates [place] Juggerkno t 1 Short Suture Soft Rigid Drill Bit 1.45mm [id number] Start: 07-25-2021 Unknown Unknown 05/28/18 Unknown Unknown FDA Start: 05-28-2018 FDA Start: 05-28-2018 FDA Start: 05-28-2018 FDA Start: 05-28-2018 Unknown Unknown 05/28/18 Unknown Unknown FDA Start: 05-28-2018 FDA Start: 05-28-2018 FDA Start: 05-28-2018 FDA Start: 05-28-2018 Clinical Notes 02-01-2013 to 08-24-2023 Stan Rodgers APRN.GIN OPERATOR - 04/28/2023 9:[address] - 04/10/2023 8:00 AM EDT Note Date & Type Note Facility 08-24-2023 Note HNO ID: [id number] Author: WILFRID BUSTAMANTE RT(R) Service: Radiology Author [...] RT Jeremy(R) August 24, 2023 3:34 PM [facility] 08-24-2023 Note HNO ID: [id number] Author: LORI CORRAL APRN.GIN OPERATOR Service: ? Author Type: Nurse Practitioner Type: [...] Nonrheumatic mitral (valve) prolapse 06/15/2017 Seizure disorder ([facility]) last 04/2021 Traumatic brain injury ([facility]) Unspecified asthma(493.90) Unspecified ectopic without intrauterine Ectopic [...] GENERAL 3V AP/LAT/L5-S1 FINDINGS: There are five qgs-ypl-bbqrqah lumbar vertebrae. No subluxation seen. Sclerosis along the superior endplate of the L1 vertebral body, seen on lateral view. The disc spaces are well preserved. There is no significant osteophyte formation. IMPRESSION: Sclerosis along the superior endplate of L1 vertebral body. Consider follow-up. Instrumentation Supervisor: FLORENCE Transcribe Date/Time: Aug 24 2023 3:50P Dictated by : FILMEON BURT MD 2. Acute bilateral low back pain with bilateral sciatica - ICD9: 724.2, 724.3, ICD10: M54.42, M54.41 - XR LUMBAR GENERAL 3V AP/LAT/L5-S1 - PREDNISONE 10 MG TABLET - [facility] - CYCLOBENZAPRINE 10 MG TABLET- caution advised due to drowsiness associated with this medication. - patient adv (more content not included)... [facility] 05-18-2023 Note HNO ID: [id number] Author: Ronnie Davison, PT Service: ? Author Type: Physical Therapist Type: Progress Notes Filed: 05/18/2023 3:23 PM Note Text: 05/18/2023 [facility] PHYSICAL THERAPY [...] scheduled additional follow-up appointments. Ronnie Davison, PT [facility] 04-28-2023 Note HNO ID: [id number] Author: Stan Rodgers APRN.GIN OPERATOR Service: ? Author Type: Nurse Practitioner Type: Progress Notes Filed: 04/28/2023 9:46 AM Note Text: Subjective HPI Nontoxic-appearing female presents to urgent care with chief complaint of upper respiratory tract like infection. Duration of symptoms 3 days. Associated symptoms sore throat, nasal congestion, nasal discharge and nonproductive cough. Patient denies the use of any tbzj-wds-jhfrzej medications or home remedies for symptom management. [...] respiratory distress. B (more content not included)... [facility] 04-28-2023 History of Present illness Narrative Subjective HPI Nontoxic-appearing female presents to urgent care with chief complaint of upper respiratory tract like infection. Duration of symptoms 3 days. Associated symptoms sore throat, nasal congestion, nasal discharge and nonproductive cough. Patient denies the use of any iuvz-orw-yxlmgjk medications or home remedies for symptom management. [...] of care. This note was generated using [employer] software. It may contain errors in wording, punctuation, or spelling. Stan Rodgers APRN.CNP documented in this encounter [facility] 04-10-2023 Note HNO ID: [id number] Author: Carla Villegas CT Service: ? Author [...] JUANPABLO Rosario April 10, 2023 8:05 AM [facility] 04-10-2023 History of Present illness Narrative Radiology [...] 2023 8:05 AM documented in this encounter [facility] 04-08-2023 Note ORIGINAL NM MYOCARDIAL SPECT STRESS/REST [...] Date: 04/08/2023 6:25:39 PM Ordering Provider:Dayan Yoder [facility] 08-22-2023 Miscellaneous Notes* Telephone Encounter - Carolyn [...] 31, 2023 11:02 AM [facility] NoteHNO ID: [id number] Author: Ronnie Davison PT Service: ? Author [...] of Care: created on 03/13/23 through 05/13/23 [place] in home exercise program. Patient will decrease [...] Planned: 8 Planned Treatment Interventions: Therapeutic exercise (26136), Neuromuscular re-education (25181), Manual therapy (92351), Therapeutic activities (65403), Self-long term management (10494), Gait Training (45742), Patient/Family/Caregiver Education, Body Mechanics Training PLAN FOR [...] Ankle with subsequent injury and surgery. 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 Recreation / Current Exercise: unable to right [...] Right, Foot - Right (more content not included)...[facility] History of Present illness Narrative* Ronnie Davison [...] of Care: created on 03/13/23 through 05/13/23 [place] in home exercise program. Patient will decrease [...] Planned: 8 Planned Treatment Interventions: Therapeutic exercise (41085), Neuromuscular re- education (48430), Manual therapy (79247), Therapeutic activities (97896), Self- long term management (15444), Gait Training (40150), Patient/Family/Caregiver Education, Body Mechanics Training PLAN FOR [...] and the R foot gave out; this ADIREN happened about a month ago; patient was [...] Ankle with subsequent injury and surgery. 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 Recreation / Current Exercise: unable to right [...] Mechanics TREATMENT: PT Treatment Interventions: Therapeutic Exercise, Self-Custodial Management Evaluation Therapeutic Exercise: 1: *Ankle Pumps: [...] facilitated with verbal, visual, and tactile cuing. Self-Custodial Management: 1: Discussion and education on musculature [...] 912 Ronnie Davison PT documented in this encounterMedina Hospital08-01-2023 NoteHNO ID: [id number] Author: Whit Puri Service: ? Author Type: [...] Nonrheumatic mitral (valve) prolapse 06/15/2017 Seizure disorder ([facility]) last 04/2021 Traumatic brain injury ([facility]) Unspecified asthma(493.90) Unspecified ectopic without intrauterine Ectopic [...] continues to have conside (more content not included)...[facility]08-01-2023 NoteHNO ID: [id number] Author: Shawanda Boudreaux LPN Service: ? Author [...] Up, Pain, Swelling, Numbness, Fracture Shawanda Boudreaux [facility]08-01-2023 History of Present illness Narrative* Whit [...] Nonrheumatic mitral (valve) prolapse 06/15/2017 Seizure disorder ([facility]) last 04/2021 Traumatic brain injury ([facility]) Unspecified asthma(493.90) Unspecified ectopic without intrauterine Ectopic [...] HYSTERECT W/WO RMVL TUBE OVARY 01/2005 Hysterectomy, [facility] Physical Exam: OBJECTIVE: Constitutional: Pt is a [...] Fracture Shawanda Boudreaux LPN documented in this encounterMedina Hospital07-24-2023 NoteHNO ID: [id number] Author: Charity Santoyo Service: ? Author Type: [...] Care Gap or Scheduling/Wellness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 Referral ID Status Reason Start Date Expiration Date V isits Requested Visits Authorized [id number] Closed Auto-Generate d Referral 02/27/2022 03/29/2023 1 1 [facility] for referral (narrative)* Diagnostic Procedure Only (Routine) - Closed Specialty Diagnoses / Procedures Referred By Contac t Referred To Contact XR IMAGING Diagnoses Chronic neck pain Procedures XR CERV OTHER 6V AP/LAT/FLX/EXT/OBL RADEX SPINE CERVICAL 6 OR MORE VIEWS Jimena Ashley, CHILD SUPPORT INVESTIGATOR.GIN OPERATOR [address] [place] [address] Xr Imaging Referral ID Status Reason Start Date Expiration Date V isits Requested Visits Authorized [id number] Closed Auto-Generate d Referral 02/27/2022 03/29/2023 1 1 [facility] for referral (narrative)* Diagnostic Procedure Only (Urgent) - Closed Specialty Diagnoses / Procedures Referred By Contac t Referred To Contact XR IMAGING Diagnoses Right hand pain Procedures XR HAND GENERAL 3V PA/LAT/OBL RIGHT RADEX HAND MINIMUM 3 VIEWS Steph Shaw, CHILD SUPPORT INVESTIGATOR.GIN OPERATOR [address] [place] [address] Xr Imaging Referral ID Status Reason Start Date Expiration Date V isits Requested Visits Authorized [id number] Closed Auto-Generate d Referral 05/06/2022 06/05/2023 1 1 [facility] for referral (narrative)* Outpatient Procedure (Routine) - Authorized Specialty Diagnoses / Procedures Referred By Contac t Referred To Contact [facility] Diagnoses Seizure (HCC) Procedures EPIL EEG LONG EEG EXTENDED MONITORING 61-119 MINUTES ELECTROENCEPHALOGRAM REC COMA/SLEEP ONLY Chay Kendrick PA-C [id number] [facility] [address] [place] [address] Referral ID Status Reason Start Date Expiration Date Visits Requested Visits Authorized [id number] Authorized Auto-Generat ed Referral 11/28/2022 11/29/2023 1 1 [facility] for referral (narrative)* Diagnostic Procedure Only (Routine) - Closed Specialty Diagnoses / Procedures Referred By Contac t Referred To Contact XR IMAGING Diagnoses Sprain of right ankle, unspecified ligament, initial encounter Procedures XR TIBIA FIBULA 2V AP/LAT RIGHT RADIOLOGIC EXAMINATION TIBIA & FIBULA 2 VIEWS Whit Puri [address] [place] [address] [place] [address] Referral ID Status Reason Start Date Expiration Date V isits Requested Visits Authorized [id number] Closed Auto-Generate d Referral 02/11/2023 03/12/2024 1 1 [facility] for referral (narrative)* Diagnostic Procedure Only (Routine) - Closed Specialty Diagnoses / Procedures Referred By Contac t Referred To Contact XR IMAGING Diagnoses Acute right ankle pain Procedures XR ANKLE GENERAL 3V AP/LAT/OBL RIGHT RADEX ANKLE COMPLETE MINIMUM 3 VIEWS Whit Puri [address] [place] [address] [place] [address] Referral ID Status Reason Start Date Expiration Date V isits Requested Visits Authorized [id number] Closed Auto-Generate d Referral 02/06/2023 03/07/2024 1 1 [facility] for visit Narrative* Diagnostic Procedure Only (Routine) - Closed Specialty Diagnoses / Procedures Referred By Contac t Referred To Contact XR IMAGING Diagnoses Chronic neck pain Procedures XR CERV OTHER 6V AP/LAT/FLX/EXT/OBL RADEX SPINE CERVICAL 6 OR MORE VIEWS Jimena Ashley, CHILD SUPPORT INVESTIGATOR.GIN OPERATOR [address] [place] [address] Xr Imaging Referral ID Status Reason Start Date Expiration Date V isits Requested Visits Authorized [id number] Closed Auto-Generate d Referral 02/27/2022 03/29/2023 1 1 [facility] for visit Narrative* Diagnostic Procedure Only (Routine) - Closed Specialty Diagnoses / Procedures Referred By Contac t Referred To Contact XR IMAGING Diagnoses Sprain of right ankle, unspecified ligament, initial encounter Procedures XR TIBIA FIBULA 2V AP/LAT RIGHT RADIOLOGIC EXAMINATION TIBIA & FIBULA 2 VIEWS Whit Puri [address] [place] [address] [place] [address] Referral ID Status Reason Start Date Expiration Date V isits Requested Visits Authorized [id number] Closed Auto-Generate d Referral 02/11/2023 03/12/2024 1 1 [facility] for visit Narrative* Diagnostic Procedure Only (Routine) - Closed Specialty Diagnoses / Procedures Referred By Contac t Referred To Contact XR IMAGING Diagnoses Acute right ankle pain Procedures XR ANKLE GENERAL 3V AP/LAT/OBL RIGHT RADEX ANKLE COMPLETE MINIMUM 3 VIEWS Whit Puri [address] [place] [address] [place] [address] Referral ID Status Reason Start Date Expiration Date V isits Requested Visits Authorized [id number] Closed Auto-Generate d Referral 02/06/2023 03/07/2024 1 1 [facility] Chief Complaint Chief Complaint Description Start Date right thumb finger pain Preliminary chief co mplaint data, not yet signed by the author as of Instructions Instruction Description Start Date Patient advised to follow-up with Primary Care Physician for BMI management. Advance Directives No Advanced Directives Records FoundDocuments on File Type Date Recorded Patient [employer] Expl anation Advance Directive(s) 07/25/2021 8:48 AM Advance Directive(s) 01/05/2018 10:23 AM Documents on File Type Date Recorded Patient [employer] Expl anation Advance Directive(s) 07/25/2021 8:48 AM [...] MINS Whit Puri [address] [place] [address] [facility] [address] [place] [address] Referral ID Status Reason Start Date Expiration Date Visits Requested Visits Authorized [id number] Pending Review Auto-Generat ed Referral 02/11/2023 02/11/2024 1 1 Specialty Diagnoses / Procedures Referred By Jordyn Referred To Contact XR IMAGING Diagnoses Sprain of right ankle, unspecified ligament, initial encounter Procedures XR TIBIA FIBULA 2V AP/LAT RIGHT RADIOLOGIC EXAMINATION TIBIA & FIBULA 2 VIEWS Whit Puri [address] [place] [address] Xr Imaging Referral ID Status Reason Start Date Expiration Date Visits Requested Visits Authorized [id number] Pending Review Auto-Generat ed Referral 02/11/2023 03/12/2024 1 1 Specialty Diagnoses / Procedures Referred By Jordyn connolly Referred To Contact MR IMAGING Diagnoses Acute right ankle pain Procedures MRI ANKLE WO IVCON RIGHT MRI ANY JT LOWER EXTREM W/O CONTRAST MATRL Jaxson Whit [address] [place] [address] Mr Imaging Referral ID Status Reason Start Date Expiration Date Visits Requested Visits Authorized [id number] Pending Review Auto-Generat ed Referral 03/10/2023 04/08/2024 1 1 Specialty Diagnoses / Procedures Referred By Contac t Referred To Contact [facility] Diagnoses Sprain of right ankle, unspecified ligament, initial encounter Procedures PT REHAB FOLLOW UP ORDER THERAPEUTIC EXERCISES RE, EA 15 MIN. Whit Puri [address] [place] [address] [facility] [id number] [place] [address] Referral ID Status Reason Start Date Expiration Date Visits Requested Visits Authorized [id number] Pending Review PCP Requested Referral Auto-Generate d Referral 03/13/2023 06/11/2023 1 1 Specialty Diagnoses / Procedures Referred By Contac t Referred To Contact Diagnoses Seizure (HCC) Uriel Orozco MD [address] [facility] [address] [place] [address] Referral ID Status Reason Start Date Expiration Date Visits Re quested Visits Authorized [id number] Closed 1 1 Referral ID Status Reason Start Date Expiration Date Visits Re quested Visits Authorized [id number] Closed 1 1 Specialty Diagnoses / Procedures Referred By Contac t Referred To Contact MR IMAGING Diagnoses Acute right ankle pain Procedures MRI ANKLE WO IVCON RIGHT MRI ANY JT LOWER EXTREM W/O CONTRAST Whit Taylor [address] [place] [address] [place] [address] Referral ID Status Reason Start Date Expiration Date V isits Requested Visits Authorized [id number] Closed Auto-Generate d Referral 03/26/2023 05/25/2023 1 1 Additional Source Comments Reason for Visit (unrecogniz ed section and content) Reason Comments Follow Up Reason Comments Results Orders Reason Comments Appointment Reason Comments Appointment ER f/u- scheduled Reason Comments Infusion Headaches Specialty Diagnoses / Procedures Referred By Contac t Referred To Contact Neurology / NEUROLOGY Diagnoses vyepti Procedures INFUSION [place] [address] Ne[facility] [address] [address] [facility] [place] [address] Referral ID Status Reason Start Date Expiration Date V isits Requested Visits Authorized [id number] Pending Review 01/01/2022 04/01/2022 1 1 Reason [...] MINS Whit Puri [address] [place] [id number] [facility] [address] [place] [address] Referral ID Status Reason Start Date Expiration Date V isits Requested Visits Authorized [id number] Closed Auto-Generate d Referral 08/10/2022 08/09/2023 1 [...] MATRL Whit Puri [address] [place] [address] Mr Imaging [facility] Referral ID Status Reason Start Date Expiration Date V isits Requested Visits Authorized [id number] Closed Auto-Generate d Referral 03/26/2023 05/25/2023 1 1 Source Comments (unrecognize d section and content) In the event this informatio n is protected by the Federal Confidentiality of Alcohol and Drug Abuse Patient Records regulations: The Federal rules restrict any use of the information to criminally investigate or prosecute any alcohol or drug abuse patient.[facility] event this information is protected by the Federal Confidentiality of Alcohol and Drug Abuse Patient Records regulations: The Federal rules restrict any use of the information to criminally investigate or prosecute any alcohol or drug abuse patient.[facility] the event this information is protected by the Federal Confidentiality of Alcohol and Drug Abuse Patient Records regulations: The Federal rules restrict any use of the information to criminally investigate or prosecute any alcohol or drug abuse patient.[facility] the event this information is protected by the Federal Confidentiality of Alcohol and Drug Abuse Patient Records regulations: The Federal rules restrict any use of the information to criminally investigate or prosecute any alcohol or drug abuse patient.[facility] the event this information is protected by the Federal Confidentiality of Alcohol and Drug Abuse Patient Records regulations: The Federal rules restrict any use of the information to criminally investigate or prosecute any alcohol or drug abuse patient.[facility] the event this information is protected by the Federal Confidentiality of Alcohol and Drug Abuse Patient Records regulations: The Federal rules restrict any use of the information to criminally investigate or prosecute any alcohol or drug abuse patient.[facility] the event this information is protected by the Federal Confidentiality of Alcohol and Drug Abuse Patient Records regulations: The Federal rules restrict any use of the information to criminally investigate or prosecute any alcohol or drug abuse patient.[facility] the event this information is protected by the Federal Confidentiality of Alcohol and Drug Abuse Patient Records regulations: The Federal rules restrict any use of the information to criminally investigate or prosecute any alcohol or drug abuse patient.[facility] the event this information is protected by the Federal Confidentiality of Alcohol and Drug Abuse Patient Records regulations: The Federal rules restrict any use of the information to criminally investigate or prosecute any alcohol or drug abuse patient.[facility] the event this information is protected by the Federal Confidentiality of Alcohol and Drug Abuse Patient Records regulations: The Federal rules restrict any use of the information to criminally investigate or prosecute any alcohol or drug abuse patient.[facility] the event this information is protected by the Federal Confidentiality of Alcohol and Drug Abuse Patient Records regulations: The Federal rules restrict any use of the information to criminally investigate or prosecute any alcohol or drug abuse patient.[facility] the event this information is protected by the Federal Confidentiality of Alcohol and Drug Abuse Patient Records regulations: The Federal rules restrict any use of the information to criminally investigate or prosecute any alcohol or drug abuse patient.[facility] the event this information is protected by the Federal Confidentiality of Alcohol and Drug Abuse Patient Records regulations: The Federal rules restrict any use of the information to criminally investigate or prosecute any alcohol or drug abuse patient.[facility] the event this information is protected by the Federal Confidentiality of Alcohol and Drug Abuse Patient Records regulations: The Federal rules restrict any use of the information to criminally investigate or prosecute any alcohol or drug abuse patient.[facility] the event this information is protected by the Federal Confidentiality of Alcohol and Drug Abuse Patient Records regulations: The Federal rules restrict any use of the information to criminally investigate or prosecute any alcohol or drug abuse patient.[facility] the event this information is protected by the Federal Confidentiality of Alcohol and Drug Abuse Patient Records regulations: The Federal rules restrict any use of the information to criminally investigate or prosecute any alcohol or drug abuse patient.[facility] the event this information is protected by the Federal Confidentiality of Alcohol and Drug Abuse Patient Records regulations: The Federal rules restrict any use of the information to criminally investigate or prosecute any alcohol or drug abuse patient.[facility] the event this information is protected by the Federal Confidentiality of Alcohol and Drug Abuse Patient Records regulations: The Federal rules restrict any use of the information to criminally investigate or prosecute any alcohol or drug abuse patient.[facility] the event this information is protected by the Federal Confidentiality of Alcohol and Drug Abuse Patient Records regulations: The Federal rules restrict any use of the information to criminally investigate or prosecute any alcohol or drug abuse patient.[facility] the event this information is protected by the Federal Confidentiality of Alcohol and Drug Abuse Patient Records regulations: The Federal rules restrict any use of the information to criminally investigate or prosecute any alcohol or drug abuse patient.[facility] the event this information is protected by the Federal Confidentiality of Alcohol and Drug Abuse Patient Records regulations: The Federal rules restrict any use of the information to criminally investigate or prosecute any alcohol or drug abuse patient.[facility] the event this information is protected by the Federal Confidentiality of Alcohol and Drug Abuse Patient Records regulations: The Federal rules restrict any use of the information to criminally investigate or prosecute any alcohol or drug abuse patient.[facility] the event this information is protected by the Federal Confidentiality of Alcohol and Drug Abuse Patient Records regulations: The Federal rules restrict any use of the information to criminally investigate or prosecute any alcohol or drug abuse patient.[facility] the event this information is protected by the Federal Confidentiality of Alcohol and Drug Abuse Patient Records regulations: The Federal rules restrict any use of the information to criminally investigate or prosecute any alcohol or drug abuse patient.[facility] the event this information is protected by the Federal Confidentiality of Alcohol and Drug Abuse Patient Records regulations: The Federal rules restrict any use of the information to criminally investigate or prosecute any alcohol or drug abuse patient.[facility] the event this information is protected by the Federal Confidentiality of Alcohol and Drug Abuse Patient Records regulations: The Federal rules restrict any use of the information to criminally investigate or prosecute any alcohol or drug abuse patient.[facility] the event this information is protected by the Federal Confidentiality of Alcohol and Drug Abuse Patient Records regulations: The Federal rules restrict any use of the information to criminally investigate or prosecute any alcohol or drug abuse patient.[facility] Teams (unrecognized sec tion and content) Product Lister Relationship Specialty Start Date End Date Zaida Masters Jr. PCP - General Internal Medicine 08/27/12 Product Lister Relationship Specialty Start Date End Date Zaida Masters Jr. PCP - General Internal Medicine 08/27/12 Product Lister Relationship Specialty Start Date End Date Zaida Masters Jr. PCP - General Internal Medicine 08/27/12 Product Lister Relationship Specialty Start Date End Date Zaida Masters Jr. PCP - General Internal Medicine 08/27/12 Product Lister Relationship Specialty Start Date End Date Zaida Masters Jr. PCP - General Internal Medicine 08/27/12 Product Lister Relationship Specialty Start Date End Date Zaida Masters Jr., MD PCP - General Internal Medicine 08/27/12 Product Lister Relationship Specialty Start Date End Date Zaida Masters Jr., MD PCP - General Internal Medicine 08/27/12 Product Lister Relationship Specialty Start Date End Date Zaida Masters Jr., MD PCP - General Internal Medicine 08/27/12 Product Lister Relationship Specialty Start Date End Date Zaida Masters Jr., MD PCP - General Internal Medicine 08/27/12 Product Lister Relationship Specialty Start Date End Date Zaida Masters Jr., MD PCP - General Internal Medicine 08/27/12 INFORMATION SOURCE (unrecogn ized section and content) DATE CREATED AUTHOR AUTHOR'S ORGANNAE ATION 04/10/2023 [facility] [place] DATE CREATED AUTHOR AUTHOR'S ORGANIZ ATION 08/25/2023 [facility] DATE CREATED AUTHOR AUTHOR'S ORGANIZ ATION 08/27/2023 [facility] FOR RECORDS PERTAINING TO PATIENTS WHO [...] BE BASED ON THE PRIMARY CLINICAL RECORDS. [employer] [facility] provides no warranty or guarantee of the accuracy or completeness of information in this document.
--- NOTE | 2023-09-23 06:47 | MRI_ITS ---
STUDY: MRI LEFT KNEE REASON FOR EXAM: Female, 48 years old. Pain in left knee. TECHNIQUE: Standardized fat and water weighted pulse sequences were obtained in all 3 orthogonal planes. COMPARISON: Left knee radiographs dated 09/19/2023. FINDINGS: There is a low-grade partial tear of the posterior medial meniscal root (coronal T2 series 6 image 14; sagittal PD series 3 image 20). Normal hyaline cartilage of the medial femorotibial compartment. Normal medial femoral condyle and tibial plateau. Normal medial collateral ligamentous complex (MCL). Normal distal semimembranosus, gracilis and semitendinosus tendons. Normal lateral meniscus. Normal hyaline cartilage of the lateral femorotibial compartment. Normal lateral femoral condyle and tibial plateau. Normal proximal tibiofibular articulation. Normal lateral collateral ( fibular ) ligament. Normal popliteus tendon. Normal biceps femoris tendon. Normal anterior cruciate ligament (ACL). Normal posterior cruciate ligament (PCL). There is low-grade chondromalacia patellae. Congruent patellofemoral articulation. Normal medial and lateral patellar retinaculum. Normal quadriceps tendon. Normal patellar tendon. Normal Hoffa''s fat pad. There is a small joint effusion. There is no popliteal cyst. The soft tissues are unremarkable. The otherwise visualized osseous structures are unremarkable. MRI/Lower Ext Joint Only (Routine) IMPRESSION: Low-grade partial tear of the posterior medial meniscal root. Low-grade chondromalacia patellae. Small joint effusion. Electronically Signed: Sacha Nazario MD at 8:29 EST ,
== END | disposition home or self-care (01) ==
LOC: MRI 06:32
PROVIDERS: PCP Nurse Practitioner Family; Referring Provider Physician Assistant; Visit Provider Physician Assistant
DX: M23.92 Unspecified internal derangement of left knee (principal)
CPT/HCPCS: 73721

== ENCOUNTER → 2023-09-28 | Outpatient (CLI) | payer MEDICAID, SELFPAY ==
[2023-09-28 17:06] LABS: Uric Acid 5.4 mg/dL (2.6-6.0)
--- OUTSIDE RECORDS SUMMARY | 2023-09-28 18:23 | XMS RPT_ITS | CCD ---
Author Name Unknown Address [address] [place] [address] Organization [facility] Care Team Providers Care Automotive Heavy Mechanic Name Role Phone Ludwig Mace Unavailable Alberto Matamoros MD Unavailable Zaida Masters Jr. Primary Care Provider [phone] Terry Boykin MD, Zaida Barahona Primary Care Provider Terry Boykin MD, Zaida Barahona Primary Care Provider Terry Boykin MD, Zaida Barahona Primary Care Provider Unavailable Primary Care Provider Unavailabl e YESICA BEAN Attending Unavailable YESICA BEAN Referring Unavailable ZAIDA MASTERS JR Primary Care Un[facility] RECONNAISSANCE VEHICLE DRIVER-GEMMA, ELIZ [facility] Care Physician DAYAN HUMMEL Attending Unavailab rohit GIBSON APRN-SENIOR ELECTRICAL CONTROLS ENGINEER, [facility] Care Unavailabl e DAYAN HUMMEL Attending Unavailab le [facility] ARMOR RECONNAISSANCE VEHICLE [facility], [facility] Care Unavailabl e TESTWHIT JAQUEZ Attending Unavailable TESTRAKE, WHIT Referring Unavailable TESTRAKE, WHIT Referring Unavailable TESTRAWHIT ASTORGA Attending Unavailable TESTRAKE, WHIT Referring Unavailable TESTRAKE, [...] (substance)] Drug Allergy 12-23-19 17 [facility] Work Phone: (1 source) Adrenergic Beta-Antagonists drug allergy 03-08-20 19 heart races [facility] Work Phone: (1 source) diphenhydrAMINE Drug Allergy 03-08-20 19 nasty personality [facility] Work Phone: (1 source) Morphine Drug Allergy 03-08-20 19 throat closes [facility] Work Phone: (1 source) Penicillins (Antibiotic) drug allergy 03-08-20 19 throat closes [facility] Work Phone: (1 source) Promethazine Drug Allergy 03-08-20 19 heart race [facility] Work Phone: (20 sources) Aspirin; Translations: [ASPIRIN] Drug Allergy 09-24-19 19 Rash [facility] (20 sources) Codeine; Translations: [CODEINE] Drug [facility]20 [facility] (20 sources) diphenhydrAMINE; Translations: [DIPHENHYDRAMINE HCL] Drug Allergy 07-01-20 06 Mental Status Change [facility] Work Phone: (20 sources) Morphine; Translations: [MORPHINE] Drug Allergy 07-01-20 06 Swelling [facility] Work Phone: (20 sources) Penicillin G; Translations: [PENICILLIN G] Drug Allergy 07-01-20 06 Hives, Swelling [facility] Work Phone: (20 sources) Promethazine; Translations: [PROMETHAZINE HCL] Drug Allergy 07-01-20 06 Intolerance [facility] (10 sources) Salicylic Acid; Translations: [SALICYLATES] Drug Allergy 07-01-20 [facility] Work Phone: (20 sources) Shellfish; Translations: [SHELLFISH DERIVED] Drug Allergy 10-20-19 Anaphylaxis [facility] (19 sources) Salicylate product Propensity to adverse reactions 07-01-20 [facility] Work Phone: (2 sources) diphenhydrAMINE; Translations: [diphenhydramine] Drug Allergy COMBATIVE [facility] (2 sources) Metoprolol; Translations: [metoprolol] Drug Allergy CHEST ON FIRE [facility] (2 sources) Promethazine; Translations: [promethazine] Drug Allergy DE LA CRUZ VEINS [facility] (2 sources) Seafood Food allergy ANAPHYLACTIC [facility] (2 sources) Shellfish; Translations: [shellfish] Food allergy ANAPHYLACTIC [facility] (4 sources) Fish; Translations: [FISH CONTAINING PRODUCTS] Drug Allergy 01-13-20 Rash [facility] Medications Current Medications Medication Drug Class(es) Dates Sig (Normalized) Sig (Original) escitalopram 20 mg oral tablet (2 sources) Serotonin Reuptake Inhibitor Start: 10-30-2020 escitalopram 20 mg oral tablet Dose : 20 mg = 1 tab(s), Oral, qDay, # 90 tab(s), 0 Refill(s), Pharmacy: [id number], Depressed state, 153, cm, 10/30/20 [...] hours as needed for pain OXYCODONE-ACETAMIN OPHEN [id number] Chencho MENDEZ ARIPiprazole 2 mg oral tablet [...] 09:12-0400 Body temperature 97.59 [degF] Stan Rodgers ARMOR RECONNAISSANCE VEHICLE DRIVER.SENIOR ELECTRICAL CONTROLS ENGINEER Work Phone: [facility] 04-28-2023 09:12-0400 Body weight 79.74 kg Stan Rodgers ARMOR RECONNAISSANCE VEHICLE DRIVER.SENIOR ELECTRICAL CONTROLS ENGINEER Work Phone: [facility] 04-28-2023 09:12-0400 Diastolic blood pressure 64 mm[Hg] Stan Rodgers ARMOR RECONNAISSANCE VEHICLE DRIVER.SENIOR ELECTRICAL CONTROLS ENGINEER Work Phone: [facility] 04-28-2023 09:12-0400 Heart rate 91 /min Stan Rodgers ARMOR RECONNAISSANCE VEHICLE DRIVER.SENIOR ELECTRICAL CONTROLS ENGINEER Work Phone: [facility] 04-28-2023 09:12-0400 Respiratory rate 18 /min Stan Rodgers ARMOR RECONNAISSANCE VEHICLE DRIVER.SENIOR ELECTRICAL CONTROLS ENGINEER Work Phone: [facility] 04-28-2023 09:12-0400 SaO2% (BldA) [Mass fraction] 98 % Stan Rodgers ARMOR RECONNAISSANCE VEHICLE DRIVER.SENIOR ELECTRICAL CONTROLS ENGINEER Work Phone: [facility] 04-28-2023 09:12-0400 Systolic blood pressure 108 mm[Hg] Stan Rodgers ARMOR RECONNAISSANCE VEHICLE DRIVER.SENIOR ELECTRICAL CONTROLS ENGINEER Work Phone: [facility] 12-24-2022 11:22-0400 Body temperature 97.39 [degF] Misha Chambers ARMOR RECONNAISSANCE VEHICLE DRIVER.SENIOR ELECTRICAL CONTROLS ENGINEER Work Phone: [facility] 12-24-2022 11:22-0400 Body weight 81.65 kg Misha Chambers ARMOR RECONNAISSANCE VEHICLE DRIVER.SENIOR ELECTRICAL CONTROLS ENGINEER Work Phone: [facility] 12-24-2022 11:22-0400 Diastolic blood pressure 80 mm[Hg] Misha Reyes ARMOR RECONNAISSANCE VEHICLE DRIVER.SENIOR ELECTRICAL CONTROLS ENGINEER Work Phone: [facility] 12-24-2022 11:22-0400 Heart rate 75 /min Misha Chambers ARMOR RECONNAISSANCE VEHICLE DRIVER.SENIOR ELECTRICAL CONTROLS ENGINEER Work Phone: [facility] 12-24-2022 11:22-0400 Respiratory rate 21 /min Misha Reyes ARMOR RECONNAISSANCE VEHICLE DRIVER.SENIOR ELECTRICAL CONTROLS ENGINEER Work Phone: [facility] 12-24-2022 11:22-0400 SaO2% (BldA) [Mass fraction] 100 % Misha Chambers ARMOR RECONNAISSANCE VEHICLE DRIVER.SENIOR ELECTRICAL CONTROLS ENGINEER Work Phone: [facility] 12-24-2022 11:22-0400 Systolic blood pressure 102 mm[Hg] Misha Chambers ARMOR RECONNAISSANCE VEHICLE DRIVER.SENIOR ELECTRICAL CONTROLS ENGINEER Work Phone: [facility] 11-28-2022 08:43-0400 Body height 154.9 cm Urile Orozco MD Work Phone: [facility] 11-28-2022 08:43-0400 Body weight 63.5 kg Uriel Orozco MD Work Phone: [facility] 11-28-2022 08:43-0400 Diastolic blood pressure 87 mm[Hg] Uriel Orozco MD Work Phone: [facility] 11-28-2022 08:43-0400 Heart rate 68 /min Uriel Orozco MD Work Phone: [facility] 11-28-2022 08:43-0400 SaO2% (BldA) [Mass fraction] 100 % Uriel Orozco MD Work Phone: [facility] 11-28-2022 08:43-0400 Systolic blood pressure 120 mm[Hg] Uriel Orozco MD Work Phone: [facility] 11-19-2022 15:30-0400 Body height 154.9 cm Yesica Bean MD Work Phone: [facility] 11-19-2022 15:30-0400 Body weight 80.74 kg Yesica Bean MD Work Phone: [facility] 11-19-2022 15:30-0400 Diastolic blood pressure 75 mm[Hg] Yesica Bean MD Work Phone: [facility] 11-19-2022 15:30-0400 Heart rate 79 /min Yesica Bean MD Work Phone: [facility] 11-19-2022 15:30-0400 Systolic blood pressure 109 mm[Hg] Yesica Bean MD Work Phone: [facility] 09-25-2022 09:57-0500 Body temperature 98.71 [degF] Precious Athy PA-C Work Phone: [facility] 09-25-2022 09:57-0500 Diastolic blood pressure 84 mm[Hg] Precious Athy PA-C Work Phone: [facility] 09-25-2022 09:57-0500 Heart rate 74 /min Precious Athy PA-C Work Phone: [facility] 09-25-2022 09:57-0500 Respiratory rate 18 /min Precious Athy PA-C Work Phone: [facility] 09-25-2022 09:57-0500 SaO2% (BldA) [Mass fraction] 99 % Precious Athy PA-C Work Phone: [facility] 09-25-2022 09:57-0500 Systolic blood pressure 136 mm[Hg] Precious Athy PA-C Work Phone: [facility] 05-06-2022 10:26-0400 Body temperature 97.59 [degF] Steph Shaw ARMOR RECONNAISSANCE VEHICLE DRIVER.SENIOR ELECTRICAL CONTROLS ENGINEER Work Phone: [facility] 05-06-2022 10:26-0400 Body weight 80.02 kg Steph Shaw ARMOR RECONNAISSANCE VEHICLE DRIVER.SENIOR ELECTRICAL CONTROLS ENGINEER Work Phone: [facility] 05-06-2022 10:26-0400 Diastolic blood pressure 76 mm[Hg] Steph Shaw ARMOR RECONNAISSANCE VEHICLE DRIVER.SENIOR ELECTRICAL CONTROLS ENGINEER Work Phone: [facility] 05-06-2022 10:26-0400 Heart rate 76 /min Steph Shaw ARMOR RECONNAISSANCE VEHICLE DRIVER.SENIOR ELECTRICAL CONTROLS ENGINEER Work Phone: [facility] 05-06-2022 10:26-0400 Respiratory rate 16 /min Steph Shaw ARMOR RECONNAISSANCE VEHICLE DRIVER.SENIOR ELECTRICAL CONTROLS ENGINEER Work Phone: [facility] 05-06-2022 10:26-0400 SaO2% (BldA) [Mass fraction] 98 % Steph Shaw ARMOR RECONNAISSANCE VEHICLE DRIVER.SENIOR ELECTRICAL CONTROLS ENGINEER Work Phone: [facility] 05-06-2022 10:26-0400 Systolic blood pressure 128 mm[Hg] Steph Shaw ARMOR RECONNAISSANCE VEHICLE DRIVER.SENIOR ELECTRICAL CONTROLS ENGINEER Work Phone: [facility] 02-27-2022 08:51-0400 Heart rate 64 /min Jimena Orlando ARMOR RECONNAISSANCE VEHICLE DRIVER.SENIOR ELECTRICAL CONTROLS ENGINEER Work Phone: [facility] 02-27-2022 08:51-0400 Respiratory rate 16 /min Jimena Dion ARMOR RECONNAISSANCE VEHICLE DRIVER.SENIOR ELECTRICAL CONTROLS ENGINEER Work Phone: [facility] 02-27-2022 08:51-0400 SaO2% (BldA) [Mass fraction] 99 % Jimena Orlando ARMOR RECONNAISSANCE VEHICLE DRIVER.SENIOR ELECTRICAL CONTROLS ENGINEER Work Phone: [facility] 01-07-2022 10:25-0400 Body temperature 97.39 [degF] Lori Praisler-Wood ARMOR RECONNAISSANCE VEHICLE DRIVER.SENIOR ELECTRICAL CONTROLS ENGINEER Work Phone: [facility] 01-07-2022 10:25-0400 Body weight 81.1 kg Lori Praisler-Wood ARMOR RECONNAISSANCE VEHICLE DRIVER.SENIOR ELECTRICAL CONTROLS ENGINEER Work Phone: [facility] 01-07-2022 10:25-0400 Diastolic blood pressure 72 mm[Hg] Lori Praisler-Wood ARMOR RECONNAISSANCE VEHICLE DRIVER.SENIOR ELECTRICAL CONTROLS ENGINEER Work Phone: [facility] 01-07-2022 10:25-0400 Heart rate 93 /min Lori Praisler-Wood ARMOR RECONNAISSANCE VEHICLE DRIVER.SENIOR ELECTRICAL CONTROLS ENGINEER Work Phone: [facility] 01-07-2022 10:25-0400 Respiratory rate 20 /min Lori MckeonKyung ARMOR RECONNAISSANCE VEHICLE DRIVER.SENIOR ELECTRICAL CONTROLS ENGINEER Work Phone: [facility] 01-07-2022 10:25-0400 SaO2% (BldA) [Mass fraction] 96 % Lori Mckeongloria-Alex ARMOR RECONNAISSANCE VEHICLE DRIVER.SENIOR ELECTRICAL CONTROLS ENGINEER Work Phone: [facility] 01-07-2022 10:25-0400 Systolic blood pressure 114 mm[Hg] Lori MckeonKyung ARMOR RECONNAISSANCE VEHICLE DRIVER.SENIOR ELECTRICAL CONTROLS ENGINEER Work Phone: [facility] 01-01-2022 13:00-0400 Body temperature 97.3 [degF] Neur Infusion Work Phone: [facility] 01-01-2022 13:00-0400 Diastolic blood pressure 78 mm[Hg] Neur Infusion Work Phone: [facility] 01-01-2022 13:00-0400 Heart rate 70 /min Neur Infusion Work Phone: [facility] 01-01-2022 13:00-0400 Systolic blood pressure 109 mm[Hg] Neur Infusion Work Phone: [facility] 11-11-2021 14:38-0400 Body height 154.9 cm Austin Go Jr., MD Work Phone: [facility] 11-11-2021 14:38-0400 Body weight 81.19 kg Austin Go Jr., MD Work Phone: [facility] 11-11-2021 14:38-0400 Respiratory rate 16 /min Austin Go Jr., MD Work Phone: [facility] 06-11-2017 15:25-0400 BMI (Body Mass Index) 27.21 kg/m2 Ludwig MENDEZ [facility] Work Phone: 06-11-2017 15:25-0400 Body Temperature 97.4 [degF] Ludwig MENDEZ [facility] Work Phone: 06-11-2017 15:25-0400 BP Diastolic 74 mm[Hg] Ludwig [facility] Work Phone: 06-11-2017 15:25-0400 BP Systolic 106 mm[Hg] Ludwig [facility] Work Phone: 06-11-2017 15:25-0400 Height 154.94 cm Ludwig [facility] Work Phone: 06-11-2017 15:25-0400 Pulse (Heart Rate) 82 /min Ludwig [facility] Work Phone: 06-11-2017 15:25-0400 Respiratory Rate 14 /min Ludwig [facility] Work Phone: 06-11-2017 15:25-0400 Weight 65.32 kg Ludwig [facility] Work Phone: NEGATED: Highlighted [id number] 14:09-0400 BMI (Body Mass Index) 31.16 kg/m2 Lauren Sharma [facility] Work Phone: NEGATED: Highlighted [id number] 14:09-0400 Body weight 72.12 kg Lauren Sharma [facility] Work Phone: NEGATED: Highlighted [id number] 14:09-0400 Body weight 72 kg Lauren Sharma ENGINEERING PROFESSOR [facility] Work Phone: NEGATED: Highlighted [id number] 14:09-0400 BP Diastolic 74 mm[Hg] Lauren Sharma [facility] Work Phone: NEGATED: Highlighted [id number] 14:09-0400 BP Systolic 107 mm[Hg] Lauren Sharma ENGINEERING PROFESSOR [facility] Work Phone: NEGATED: Highlighted [id number] 14:09-0400 Height 152.4 cm Lauren Sharma ENGINEERING PROFESSOR [facility] Work Phone: NEGATED: Highlighted [id number] 14:09-0400 Height 152 cm Lauren Sharma ENGINEERING PROFESSOR [facility] Work Phone: NEGATED: Highlighted [id number] 14:09-0400 Pulse (Heart Rate) 70 /min Lauren Sharma LPN [facility] Work Phone: Encounters Encounter Date Encounter Type Care Provider Facility Start: 08-24-2023 End: 08-24-2023 ambulatory LORI CORRAL Facility:[facility] Start: 04-28-2023 End: 04-28-2023 ambulatory WHIT PURI Facility:[facility] Start: 04-28-2023 End: 04-28-2023 Office outpatient visit 15 minutes Stan Rodgers APRN.SENIOR ELECTRICAL CONTROLS ENGINEER Work Phone: [facility] Procedures Date Procedure Procedure Detail [...] cervical 6 or more views Jimena Ashley ARMOR RECONNAISSANCE VEHICLE DRIVER.SENIOR ELECTRICAL CONTROLS ENGINEER Work Phone: Start: 03-08-2019 End: 03-08-2019 Blood [...] 03-15-2018 Cardiovascular stres s testing DAYAN FISH ARMOR RECONNAISSANCE VEHICLE DRIVER-SENIOR ELECTRICAL CONTROLS ENGINEER Start: 01-05-2018 Colonoscopy Austin Banerjee Jr., MD Work Phone: Start: 12-25-2017 Mammography Austin Banerjee Jr., MD Work Phone: Abdominal hysterectomy Abdominal hysterectomy DAYAN FISH ARMOR RECONNAISSANCE VEHICLE DRIVER-SENIOR ELECTRICAL CONTROLS ENGINEER Cardiac catheterization ROXA NNE FISH ARMOR RECONNAISSANCE VEHICLE DRIVER-SENIOR ELECTRICAL CONTROLS ENGINEER section DAYAN FIS H ARMOR RECONNAISSANCE VEHICLE DRIVER-SENIOR ELECTRICAL CONTROLS ENGINEER Colonoscopy DAYAN FISH ARMOR RECONNAISSANCE VEHICLE DRIVER-SENIOR ELECTRICAL CONTROLS ENGINEER Hysterectomy DAYAN FISH ARMOR RECONNAISSANCE VEHICLE DRIVER-SENIOR ELECTRICAL CONTROLS ENGINEER Ligation of fallopia n tube DAYAN FISH ARMOR RECONNAISSANCE VEHICLE DRIVER-SENIOR ELECTRICAL CONTROLS ENGINEER NEGATED: Highlighted rowStart: 03-08-2019 End: 03-08-2019 Documentation of current medications Lauren Sharma LPN Plan of Treatment Date Care Activity Detail Author Start: 12-26-2025 DIABETES SCREEN DIABETES SCREEN [facility] Start: 12-26-2025 Diabetes Screening Diabetes Screening [facility] Start: 11-14-2025 Urine microalbumin profile [facility] Start: 12-02-2024 DIABETES SCREEN DIABETES SCREEN [facility] Start: 04-28-2024 BP Controlled (<130/80) BP Controlled (<130/80) [facility] Start: 04-04-2024 DIABETES SCREEN DIABETES SCREEN [facility] Start: 12-27-2023 BP CONTROLLED (<130/80) BP CONTROLLED (<130/80) [facility] Start: 05-06-2023 BP CONTROLLED (<130/80) BP CONTROLLED (<130/80) [facility] Start: 04-10-2023 Covid-19 Vaccine ( season) Covid-19 Vaccine () [facility] Start: 04-10-2023 Influenza vaccination [facility] Start: 01-07-2023 BP CONTROLLED (<130/80) BP CONTROLLED (<130/80) [facility] Start: 11-28-2022 End: 01-28-2023 lamoTRIgine [Mass/volume] in Serum or Plasma LAMOTRIGINE Lab Routine Seizure (HCC) Expected: 11/28/2022, Expires: 01/28/2023 [facility] Work Phone: Immunizations Immunization Date Immunization Notes Care Provider Fa cornelio 12-24-2020 COVID-19 vaccine, ag e 12+ yr (PFIZER-BIONTECH - PURPLE TOP) Austin Go Jr., MD Work Phone: [facility] 12-03-2020 COVID-19 vaccine, ag e 12+ yr (PFIZER-BIONTECH - PURPLE TOP) Austin Go Jr., MD Work Phone: [facility] 11-15-2015 tetanus toxoid, redu bin diphtheria toxoid, and acellular pertussis vaccine, adsorbed Austin Go Jr., MD Work Phone: [facility] Work Phone: 07-26-2006 diphtheria and tetan us toxoids, adsorbed for pediatric use Austin Go Jr., MD Work Phone: [facility] Work Phone: Payers Date Payer Category Payer Medicaid [id number] 2006 Medicaid [employer] [id number] 2006-Present [phone] [address] [place] [address] Medicaid [id number] 2006 Medicaid [id number] 2006 Medicaid [id number] 1975 Unknown [id number] 1974 Unknown [id number] Social History Date Type Detail Facility Start: 07-12-[address] [facility] Never smoked tobacco [facility] Start: 11-11-2021 End: 02-11-2023 Alcohol intake Current drinker of alcohol (finding) [facility] Start: 04-02-2021 History SDOH Alcohol Frequency 5 [facility] Start: 04-02-2021 History SDOH Alcohol Std Drinks 1 [facility] Start: 11-29-2010 History SDOH Alcohol Comment rare [facility] Start: 04-02-2021 History SDOH Social Connections Membership 2 [facility] Start: 04-02-2021 History SDOH Social Connections Living 98 [facility] Start: 04-02-2021 History SDOH Physica l Activity DPW 7 [facility] Start: 04-02-2021 History SDOH Physica l Activity MPS 15 [facility] Start: 04-02-2021 Education 12 [facility] Start: 1975 Sex Assigned At Female C [facility] Start: 11-01-2021 End: 12-25-2022 Exposure to SARS-CoV-2 (event) Not sure [facility] Start: 12-28-2021 End: 01-07-2022 Exposure to SARS-CoV-2 (event) Yes [facility] Work Phone: Start: 04-02-2021 End: 12-25-2022 History of Social function [facility] Start: 04-02-2021 End: 12-25-2022 Social connection and isolation panel [facility] Do you belong to any clubs or organizations such as anabaptist groups, unions, fraternal or athletic groups, or school groups? No [facility] Are you now , , , , never or living with a partner? Refused [facility] How often to you hav e a drink containing alcohol? 4 or more times a week [facility] How many standard drinks containing alcohol do you have on a typical day? 1 or 2 [facility] How often do you hav e 6 or more drinks on 1 occasion? Never [facility] How hard is it for y ou to pay for the very basics like food, housing, medical care, and heating Not hard at all [facility] Do you feel stress - tense, restless, nervous, or anxious, or unable to sleep at night because your mind is troubled all the time - these days [OSQ] Very much [facility] (I/We) worried ashleigh er (my/our) food would run out before (I/we) got money to buy more. Never true [facility] Start: 06-17-2021 Gender identity Identifies as female gender (finding) [facility] NEGATED: Highlighted rowStart: 03-08-2019 End: 03-08-2019 Alcohol use Alcohol use [facility] Work Phone: NEGATED: Highlighted rowStart: 03-08-2019 End: 03-08-2019 Details of drug misuse behavior Details of drug misuse behavior [facility] Work Phone: NEGATED: Highlighted rowStart: 03-08-2019 End: 03-08-2019 Employment detail Employment detail [facility] Work Phone: NEGATED: Highlighted rowStart: 03-08-2019 End: 03-08-2019 How many days of moderate to strenuous exercise, like a brisk walk, did you do in the last 7 days? How many days of moderate to strenuous exercise, like a brisk walk, did you do in the last 7 days? [facility] Work Phone: NEGATED: Highlighted rowStart: 03-08-2019 End: 03-08-2019 Assertion Never smoker [facility] Work Phone: Medical Equipment Procedure Code Equipment Code Equipment Origin al Text Equipment Identifier Dates Savannah Juggerkno t 1 Short Suture Soft Rigid Drill Bit 1.45mm [id number] Start: 07-25-2021 Unknown Unknown 05/28/18 Unknown Unknown FDA Start: 05-28-2018 FDA Start: 05-28-2018 FDA Start: 05-28-2018 FDA Start: 05-28-2018 Unknown Unknown 05/28/18 Unknown Unknown FDA Start: 05-28-2018 FDA Start: 05-28-2018 FDA Start: 05-28-2018 FDA Start: 05-28-2018 Clinical Notes 02-01-2013 to 08-24-2023 Stan Rodgers APRN.SENIOR ELECTRICAL CONTROLS ENGINEER - 04/28/2023 9:[address] - 04/10/2023 8:00 AM EDT Note Date & Type Note Facility 08-24-2023 Note HNO ID: [id number] Author: WILFRID BUSTAMANTE RT(R) Service: Radiology Author [...] RT Jeremy(R) August 24, 2023 3:[address] [facility] 08-24-2023 Note HNO ID: [id number] Author: LORI CORRAL APRN.SENIOR ELECTRICAL CONTROLS ENGINEER Service: ? Author Type: Nurse Practitioner Type: [...] Nonrheumatic mitral (valve) prolapse 06/15/2017 Seizure disorder ([facility]) last 04/2021 Traumatic brain injury ([facility]) Unspecified asthma(493.90) Unspecified ectopic without intrauterine Ectopic [...] GENERAL 3V AP/LAT/L5-S1 FINDINGS: There are five [id number] lumbar vertebrae. No subluxation seen. Sclerosis along the superior endplate of the L1 vertebral body, seen on lateral view. The disc spaces are well preserved. There is no significant osteophyte formation. IMPRESSION: Sclerosis along the superior endplate of L1 vertebral body. Consider follow-up. Crop Grain Or Livestock Farm Manager: FLORENCE Transcribe Date/Time: Aug 24 2023 [...] - patient adv (more content not included)... [facility] 05-18-2023 Note HNO ID: [id number] Author: Ronnie Davison, PT Service: ? Author Type: Physical Therapist Type: Progress Notes Filed: 05/18/2023 3:23 PM Note Text: 05/18/[address] [facility] PHYSICAL THERAPY DISCONTINUANCE [...] scheduled additional follow-up appointments. Ronnie Davison, PT [facility] 04-28-2023 Note HNO ID: [id number] Author: Stan Rodgers APRN.SENIOR ELECTRICAL CONTROLS ENGINEER Service: ? Author Type: Nurse Practitioner Type: Progress Notes Filed: 04/28/2023 9:46 AM Note Text: Subjective HPI Nontoxic-appearing female presents to urgent care with chief complaint of upper respiratory tract like infection. Duration of symptoms 3 days. Associated symptoms sore throat, nasal congestion, nasal discharge and nonproductive cough. Patient denies the use of any [id number] medications or home remedies for symptom management. [...] respiratory distress. B (more content not included)... [facility] 04-28-2023 History of Present illness Narrative Subjective HPI Nontoxic-appearing female presents to urgent care with chief complaint of upper respiratory tract like infection. Duration of symptoms 3 days. Associated symptoms sore throat, nasal congestion, nasal discharge and nonproductive cough. Patient denies the use of any [id number] medications or home remedies for symptom management. [...] of care. This note was generated using Te[employer] To [employer] software. It may contain errors in wording, punctuation, or spelling. Stan Rodgers APRN.CNP documented in this encounter [facility] 04-10-2023 Note HNO ID: [id number] Author: Carla Villegas CT Service: ? Author [...] JUANPABLO Rosario April 10, 2023 8:[address] [facility] 04-10-2023 History of Present illness Narrative Radiology [...] 2023 8:05 AM documented in this encounter [facility] 04-08-2023 Note ORIGINAL NM MYOCARDIAL SPECT STRESS/REST [...] Date: 04/08/2023 6:25:39 PM Ordering Provider:Dayan Yoder [facility] 08-22-2023 Miscellaneous Notes* Telephone Encounter - [...] 31, 2023 11:02 AM documented in this encounterAvita Health System08-04-2023 NoteHNO ID: [id number] Author: Ronnie Davison PT Service: ? Author [...] of Care: created on 03/13/23 through 05/13/23 [place] in home exercise program. Patient will decrease [...] Planned: 8 Planned Treatment Interventions: Therapeutic exercise (18530), Neuromuscular re-education (80408), Manual therapy (10181), Therapeutic activities (26524), Self-longterm management (58692), Gait Training (99818), Patient/Family/Caregiver Education, Body Mechanics Training PLAN FOR [...] Ankle with subsequent injury and surgery. 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 Recreation / Current Exercise: unable to right [...] Right, Foot - Right (more content not included)...[facility]08-04-2023 History of Present illness Narrative* Ronnie Davison [...] of Care: created on 03/13/23 through 05/13/23 [place] in home exercise program. Patient will decrease [...] Planned: 8 Planned Treatment Interventions: Therapeutic exercise (27730), Neuromuscular re- education (06743), Manual therapy (37541), Therapeutic activities (45264), Self- longterm management (29131), Gait Training (64024), Patient/Family/Caregiver Education, Body Mechanics Training PLAN FOR [...] Ankle with subsequent injury and surgery. 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 Recreation / Current Exercise: unable to right [...] Mechanics TREATMENT: PT Treatment Interventions: Therapeutic Exercise, Self-Mcc Management Evaluation Therapeutic Exercise: 1: *Ankle Pumps: [...] facilitated with verbal, visual, and tactile cuing. Self-Mcc Management: 1: Discussion and education on musculature [...] 912 Ronnie Davison PT documented in this encounterAvita Health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 right lower extremity Other enthesopathy of ankle and tarsus Acute right ankle pain documented in this encounter [facility] note* Diagnosis Sprain of right ankle, unspecified ligament, initial encounter- Primary documented in this encounter [facility] note* Diagnosis Vitamin D deficiency- Primary Unspecified vitamin D deficiency Seizure (HCC) Other convulsions documented in this encounter [facility] note* Diagnosis Sore throat- Primary Acute pharyngitis URI with cough and congestion documented in this encounter [facility] note* Diagnosis Sprain of right ankle, unspecified ligament, initial encounter documented in this encounter [facility] note* Diagnosis Acute right ankle pain documented in this encounter [facility] note* Diagnosis Acute right ankle pain documented in this encounter [facility] course Narrative No data available for this section [facility] Hospital Discharge instructions No data available for this section [facility] Progress note No data available for this section [facility] Reason for referral (narrative)* Diagnostic Procedure Only (Routine) - Closed Specialty Diagnoses / Procedures Referred By Contac t Referred To Contact XR IMAGING Diagnoses Chronic neck pain Procedures XR CERV OTHER 6V AP/LAT/FLX/EXT/OBL RADEX SPINE CERVICAL 6 OR MORE VIEWS Jimena Ashley, [employer] VEHICLE DRIVER.SENIOR ELECTRICAL CONTROLS ENGINEER [address] [place] [address] Xr Imaging Referral ID Status Reason Start Date Expiration Date V isits Requested Visits Authorized [id number] Closed Auto-Generate d Referral 02/27/2022 03/29/2023 1 1 Electronically signed by Jimena Ashley [employer]HICLE DRIVER.SENIOR ELECTRICAL CONTROLS ENGINEER at 02/27/2022 9:44 AM EDT [facility] for referral (narrative)* Diagnostic Procedure Only (Routine) - Closed Specialty Diagnoses / Procedures Referred By Contac t Referred To Contact XR IMAGING Diagnoses Chronic neck pain Procedures XR CERV OTHER 6V AP/LAT/FLX/EXT/OBL RADEX SPINE CERVICAL 6 OR MORE VIEWS Jimena Ashley, [employer] VEHICLE DRIVER.SENIOR ELECTRICAL CONTROLS ENGINEER [address] [place] [address] Xr Imaging Referral ID Status Reason Start Date Expiration Date V isits Requested Visits Authorized [id number] Closed Auto-Generate d Referral 02/27/2022 03/29/2023 1 1 Electronically signed by Jimena Ashley [employer]HICLE DRIVER.SENIOR ELECTRICAL CONTROLS ENGINEER at 02/27/2022 9:59 AM EDT [facility] for referral (narrative)* Diagnostic Procedure Only (Urgent) - Closed Specialty Diagnoses / Procedures Referred By Contac t Referred To Contact XR IMAGING Diagnoses Right hand pain Procedures XR HAND GENERAL 3V PA/LAT/OBL RIGHT RADEX HAND MINIMUM 3 VIEWS Steph Shaw, [employer] VEHICLE DRIVER.SENIOR ELECTRICAL CONTROLS ENGINEER [address] [place] [address] Xr Imaging Referral ID Status Reason Start Date Expiration Date V isits Requested Visits Authorized [id number] Closed Auto-Generate d Referral 05/06/2022 06/05/2023 1 1 Electronically signed by Steph Shaw [employer]HICLE DRIVER.SENIOR ELECTRICAL CONTROLS ENGINEER at 05/06/2022 10:38 AM EDT [facility] for referral (narrative)* Outpatient Procedure (Routine) - Authorized Specialty Diagnoses / Procedures Referred By Contac t Referred To Contact [facility] Diagnoses Seizure (HCC) Procedures EPIL EEG LONG EEG EXTENDED MONITORING 61-119 MINUTES ELECTROENCEPHALOGRAM REC COMA/SLEEP ONLY Chay Kendrick PA-C [id number] [facility] [place] [address] [place] [address] Referral ID Status Reason Start Date Expiration Date Visits Requested Visits Authorized [id number] Authorized Auto-Generat ed Referral 11/28/2022 11/29/2023 1 1 [facility] for referral (narrative)* Diagnostic Procedure Only (Routine) - Closed Specialty Diagnoses / Procedures Referred By Contac t Referred To Contact XR IMAGING Diagnoses Sprain of right ankle, unspecified ligament, initial encounter Procedures XR TIBIA FIBULA 2V AP/LAT RIGHT RADIOLOGIC EXAMINATION TIBIA & FIBULA 2 VIEWS Whit Puri [address] [place] [address] [place] [address] Referral ID Status Reason Start Date Expiration Date V isits Requested Visits Authorized [id number] Closed Auto-Generate d Referral 02/11/2023 03/12/2024 1 1 [facility] for referral (narrative)* Diagnostic Procedure Only (Routine) - Closed Specialty Diagnoses / Procedures Referred By Contac t Referred To Contact XR IMAGING Diagnoses Acute right ankle pain Procedures XR ANKLE GENERAL 3V AP/LAT/OBL RIGHT RADEX ANKLE COMPLETE MINIMUM 3 VIEWS Whit Puri [address] [place] [address] [place] [address] Referral ID Status Reason Start Date Expiration Date V isits Requested Visits Authorized [id number] Closed Auto-Generate d Referral 02/06/2023 03/07/2024 1 1 [facility] for visit Narrative* Diagnostic Procedure Only (Routine) - Closed Specialty Diagnoses / Procedures Referred By Contac t Referred To Contact XR IMAGING Diagnoses Chronic neck pain Procedures XR CERV OTHER 6V AP/LAT/FLX/EXT/OBL RADEX SPINE CERVICAL 6 OR MORE VIEWS Jimena Ashley, [employer] VEHICLE DRIVER.SENIOR ELECTRICAL CONTROLS ENGINEER [address] [place] [address] Xr Imaging Referral ID Status Reason Start Date Expiration Date V isits Requested Visits Authorized [id number] Closed Auto-Generate d Referral 02/27/2022 03/29/2023 1 1 [facility] for visit Narrative* Diagnostic Procedure Only (Routine) - Closed Specialty Diagnoses / Procedures Referred By Contac t Referred To Contact XR IMAGING Diagnoses Sprain of right ankle, unspecified ligament, initial encounter Procedures XR TIBIA FIBULA 2V AP/LAT RIGHT RADIOLOGIC EXAMINATION TIBIA & FIBULA 2 VIEWS Whit Puri [address] [place] [address] [place] [address] Referral ID Status Reason Start Date Expiration Date V isits Requested Visits Authorized [id number] Closed Auto-Generate d Referral 02/11/2023 03/12/2024 1 1 [facility] for visit Narrative* Diagnostic Procedure Only (Routine) - Closed Specialty Diagnoses / Procedures Referred By Contac t Referred To Contact XR IMAGING Diagnoses Acute right ankle pain Procedures XR ANKLE GENERAL 3V AP/LAT/OBL RIGHT RADEX ANKLE COMPLETE MINIMUM 3 VIEWS Whit Puri [address] [place] [address] [place] [address] Referral ID Status Reason Start Date Expiration Date V isits Requested Visits Authorized [id number] Closed Auto-Generate d Referral 02/06/2023 03/07/2024 1 1 [facility] Chief Complaint Chief Complaint Description Start Date right thumb finger pain Preliminary chief co mplaint data, not yet signed by the author as of Instructions Instruction Description Start Date Patient advised to follow-up with Primary Care Physician for BMI management. 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 Advance Directive(s) 07/25/2021 8:48 AM [...] MINS Whit Puri [address] [place] [address] [facility] [place] [address] [place] [address] Referral ID Status Reason Start Date Expiration Date Visits Requested Visits Authorized [id number] Pending Review Auto-Generat ed Referral 02/11/2023 02/11/2024 1 1 Specialty Diagnoses / Procedures Referred By Jordyn Referred To Contact XR IMAGING Diagnoses Sprain of right ankle, unspecified ligament, initial encounter Procedures XR TIBIA FIBULA 2V AP/LAT RIGHT RADIOLOGIC EXAMINATION TIBIA & FIBULA 2 VIEWS Whit Puri [address] [place] [address] Xr Imaging Referral ID Status Reason Start Date Expiration Date Visits Requested Visits Authorized [id number] Pending Review Auto-Generat ed Referral 02/11/2023 03/12/2024 1 1 Specialty Diagnoses / Procedures Referred By Jordyn connolly Referred To Contact MR IMAGING Diagnoses Acute right ankle pain Procedures MRI ANKLE WO IVCON RIGHT MRI ANY JT LOWER EXTREM W/O CONTRAST MATRL Jaxson Whit [address] [place] [address] Mr Imaging Referral ID Status Reason Start Date Expiration Date Visits Requested Visits Authorized [id number] Pending Review Auto-Generat ed Referral 03/10/2023 04/08/2024 1 1 Specialty Diagnoses / Procedures Referred By Contac t Referred To Contact [facility] Diagnoses Sprain of right ankle, unspecified ligament, initial encounter Procedures PT REHAB FOLLOW UP ORDER THERAPEUTIC EXERCISES RE, EA 15 MIN. Whit Puri [address] [place] [address] [facility] [id number] [place] [address] Referral ID Status Reason Start Date Expiration Date Visits Requested Visits Authorized [id number] Pending Review PCP Requested Referral Auto-Generate d Referral 03/13/2023 06/11/2023 1 1 Specialty Diagnoses / Procedures Referred By Contac t Referred To Contact Diagnoses Seizure (HCC) Uriel Orozco [facility] [address] [place] [address] Referral ID Status Reason Start Date Expiration Date Visits Re quested Visits Authorized [id number] Closed 1 1 Referral ID Status Reason Start Date Expiration Date Visits Re quested Visits Authorized [id number] Closed 1 1 Specialty Diagnoses / Procedures Referred By Contac t Referred To Contact MR IMAGING Diagnoses Acute right ankle pain Procedures MRI ANKLE WO IVCON RIGHT MRI ANY JT LOWER EXTREM W/O CONTRAST Whit Taylor [address] [place] [address] [place] [address] Referral ID Status Reason Start Date Expiration Date V isits Requested Visits Authorized [id number] Closed Auto-Generate d Referral 03/26/2023 05/25/2023 1 1 Additional Source Comments Reason for Visit (unrecogniz ed section and content) Reason Comments Follow Up Reason Comments Results Orders Reason Comments Appointment Reason Comments Appointment ER f/u- scheduled Reason Comments Infusion Headaches Specialty Diagnoses / Procedures Referred By Contac t Referred To Contact Neurology / NEUROLOGY Diagnoses vyepti Procedures INFUSION [place] [address] [facility] [address] [facility] [place] [address] Referral ID Status Reason Start Date Expiration Date V isits Requested Visits Authorized [id number] Pending Review 01/01/2022 04/01/2022 1 1 Reason [...] MINS Whit Puri [address] [place] [id number] [facility] [place] [address] [place] [address] Referral ID Status Reason Start Date Expiration Date V isits Requested Visits Authorized [id number] Closed Auto-Generate d Referral 08/10/2022 08/09/2023 1 [...] MATRL Whit Puri [address] [place] [address] Mr Imaging [facility] Referral ID Status Reason Start Date Expiration Date V isits Requested Visits Authorized [id number] Closed Auto-Generate d Referral 03/26/2023 05/25/2023 1 1 Source Comments (unrecognize d section and content) In the event this informatio n is protected by the Federal Confidentiality of Alcohol and Drug Abuse Patient Records regulations: The Federal rules restrict any use of the information to criminally investigate or prosecute any alcohol or drug abuse patient.[facility] the event this information is protected by the Federal Confidentiality of Alcohol and Drug Abuse Patient Records regulations: The Federal rules restrict any use of the information to criminally investigate or prosecute any alcohol or drug abuse patient.[facility] the event this information is protected by the Federal Confidentiality of Alcohol and Drug Abuse Patient Records regulations: The Federal rules restrict any use of the information to criminally investigate or prosecute any alcohol or drug abuse patient.[facility] the event this information is protected by the Federal Confidentiality of Alcohol and Drug Abuse Patient Records regulations: The Federal rules restrict any use of the information to criminally investigate or prosecute any alcohol or drug abuse patient.[facility] the event this information is protected by the Federal Confidentiality of Alcohol and Drug Abuse Patient Records regulations: The Federal rules restrict any use of the information to criminally investigate or prosecute any alcohol or drug abuse patient.[facility] the event this information is protected by the Federal Confidentiality of Alcohol and Drug Abuse Patient Records regulations: The Federal rules restrict any use of the information to criminally investigate or prosecute any alcohol or drug abuse patient.[facility] the event this information is protected by the Federal Confidentiality of Alcohol and Drug Abuse Patient Records regulations: The Federal rules restrict any use of the information to criminally investigate or prosecute any alcohol or drug abuse patient.[facility] the event this information is protected by the Federal Confidentiality of Alcohol and Drug Abuse Patient Records regulations: The Federal rules restrict any use of the information to criminally investigate or prosecute any alcohol or drug abuse patient.[facility] the event this information is protected by the Federal Confidentiality of Alcohol and Drug Abuse Patient Records regulations: The Federal rules restrict any use of the information to criminally investigate or prosecute any alcohol or drug abuse patient.[facility] the event this information is protected by the Federal Confidentiality of Alcohol and Drug Abuse Patient Records regulations: The Federal rules restrict any use of the information to criminally investigate or prosecute any alcohol or drug abuse patient.[facility] the event this information is protected by the Federal Confidentiality of Alcohol and Drug Abuse Patient Records regulations: The Federal rules restrict any use of the information to criminally investigate or prosecute any alcohol or drug abuse patient.[facility] the event this information is protected by the Federal Confidentiality of Alcohol and Drug Abuse Patient Records regulations: The Federal rules restrict any use of the information to criminally investigate or prosecute any alcohol or drug abuse patient.[facility] the event this information is protected by the Federal Confidentiality of Alcohol and Drug Abuse Patient Records regulations: The Federal rules restrict any use of the information to criminally investigate or prosecute any alcohol or drug abuse patient.[facility] the event this information is protected by the Federal Confidentiality of Alcohol and Drug Abuse Patient Records regulations: The Federal rules restrict any use of the information to criminally investigate or prosecute any alcohol or drug abuse patient.[facility] the event this information is protected by the Federal Confidentiality of Alcohol and Drug Abuse Patient Records regulations: The Federal rules restrict any use of the information to criminally investigate or prosecute any alcohol or drug abuse patient.[facility] the event this information is protected by the Federal Confidentiality of Alcohol and Drug Abuse Patient Records regulations: The Federal rules restrict any use of the information to criminally investigate or prosecute any alcohol or drug abuse patient.[facility] the event this information is protected by the Federal Confidentiality of Alcohol and Drug Abuse Patient Records regulations: The Federal rules restrict any use of the information to criminally investigate or prosecute any alcohol or drug abuse patient.[facility] the event this information is protected by the Federal Confidentiality of Alcohol and Drug Abuse Patient Records regulations: The Federal rules restrict any use of the information to criminally investigate or prosecute any alcohol or drug abuse patient.[facility] the event this information is protected by the Federal Confidentiality of Alcohol and Drug Abuse Patient Records regulations: The Federal rules restrict any use of the information to criminally investigate or prosecute any alcohol or drug abuse patient.[facility] the event this information is protected by the Federal Confidentiality of Alcohol and Drug Abuse Patient Records regulations: The Federal rules restrict any use of the information to criminally investigate or prosecute any alcohol or drug abuse patient.[facility] the event this information is protected by the Federal Confidentiality of Alcohol and Drug Abuse Patient Records regulations: The Federal rules restrict any use of the information to criminally investigate or prosecute any alcohol or drug abuse patient.[facility] the event this information is protected by the Federal Confidentiality of Alcohol and Drug Abuse Patient Records regulations: The Federal rules restrict any use of the information to criminally investigate or prosecute any alcohol or drug abuse patient.[facility] the event this information is protected by the Federal Confidentiality of Alcohol and Drug Abuse Patient Records regulations: The Federal rules restrict any use of the information to criminally investigate or prosecute any alcohol or drug abuse patient.[facility] the event this information is protected by the Federal Confidentiality of Alcohol and Drug Abuse Patient Records regulations: The Federal rules restrict any use of the information to criminally investigate or prosecute any alcohol or drug abuse patient.[facility] the event this information is protected by the Federal Confidentiality of Alcohol and Drug Abuse Patient Records regulations: The Federal rules restrict any use of the information to criminally investigate or prosecute any alcohol or drug abuse patient.[facility] SystemIn the event this information is protected by the Federal Confidentiality of Alcohol and Drug Abuse Patient Records regulations: The Federal rules restrict any use of the information to criminally investigate or prosecute any alcohol or drug abuse patient.[facility] SystemIn the event this information is protected by the Federal Confidentiality of Alcohol and Drug Abuse Patient Records regulations: The Federal rules restrict any use of the information to criminally investigate or prosecute any alcohol or drug abuse patient.[facility] Teams (unrecognized sec tion and content) [employer] Relationship Specialty Start Date End Date Zaida Masters Jr. 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 DATE CREATED AUTHOR AUTHOR'S ORGANIZ ATION 08/27/2023 [facility] FOR RECORDS PERTAINING TO PATIENTS WHO ARE [...] BE BASED ON THE PRIMARY CLINICAL RECORDS. [facility]. provides no warranty or guarantee of the accuracy or completeness of information in this document.
== END | disposition home or self-care (01) ==
LOC: LAB 15:29
PROVIDERS: PCP Nurse Practitioner Family; Referring Provider Orthopaedic Surgery; Visit Provider Orthopaedic Surgery
DX: M25.562 Pain in left knee (principal)
CPT/HCPCS: 36415; 84550

== ENCOUNTER 2023-10-06 10:01 | Outpatient (RCR) | payer MEDICAID, SELFPAY ==
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
--- NOTE | 2023-10-21 10:51 | HP.PT.NRP ---
Patient Information Patient Information: SRI CHACON was seen in my office for initial evaluation on 10/06/23. The following Plan of Care was established for this patient: POC Established Initial Frequency: 2-3x /Week Initial Duration: 4-6 Weeks Anticipated Interventions Patient/Client Instruction: Educate patient on: Condition, Plan of Care and Risk Factors For the Purpose of:: To improve self management Therapeutic Exercise to Include: Strength training, Body mechanics, Postural training, Flexibilty training, Gait and locomotor training, Neuromotor development, In an aquatic setting and Dynamic Lumbar Stabilization For the Purpose of:: To decrease pain, To increase ROM, To improve muscle performance and motor function, To increase tolerance to activity/condition/position, To improve ability of physical actions for home/community/work/leisure and To improve gait and locomotor functions Manual Therapy Techniques to Include: Soft tissue mobilization For the Purpose of:: To decrease pain and To improve nutrient delivery to tissue Cryotherapy (ice pack, ice massage): Yes Thermo therapy (hot pack): Yes Ultrasound (thermal/non thermal): Yes For the Purpose of:: To decrease pain, To decrease swelling/inflammation and To improve nutrient delivery to tissue Last Seen Last Seen: This patient was last seen in our office . Pertinent comments regarding their Physical therapy will appear below: Patient was seen for Initial Evaluation and then cancelled all subsequent visits apparently due to needing to address her knee problem first. At this point I will be discontinuing this patient from physical therapy. I would be happy to see this patient again in the future if found appropriate by the physician. Thank you! Vida Bonilla, PT, Cert MDT Balance/Gait/Functional tests Balance/Special Test Scores Oswestry Low Back Score: 25
== END 2023-10-06 19:00 | disposition home or self-care (01) ==
LOC: PT 10:01
PROVIDERS: PCP Nurse Practitioner Family; Referring Provider Orthopaedic Surgery; Visit Provider Orthopaedic Surgery
DX: M51.36 Other intervertebral disc degeneration, lumbar region (principal); S83.242D Other tear of medial meniscus, current injury, left knee, subsequent encounter
CPT/HCPCS: 97162

== ENCOUNTER → 2023-10-20 | Outpatient (CLI) | payer MEDICAID, SELFPAY ==
[2023-10-20 19:49] LABS: Amphetamine Urine VISTA NEGATIVE (<1000 ng/mL); Barbiturate Urine VISTA NEGATIVE (< 200 ng/mL); Benzodiazepine Urine VISTA NEGATIVE (< 200 ng/mL); Cocaine Urine VISTA NEGATIVE (< 300 ng/mL); Ecstacy Urine VISTA NEGATIVE (< 500 ng/mL); Methadone Urine VISTA NEGATIVE (< 300 ng/mL); PCP Urine VISTA NEGATIVE (< 25 ng/mL); THC Urine VISTA NEGATIVE (< 50 ng/mL); Vista UDS pH Range 4
== END | disposition home or self-care (01) ==
LOC: LAB 15:14
PROVIDERS: PCP Nurse Practitioner Family; Referring Provider Anesthesiology; Visit Provider Anesthesiology
DX: G89.29 Other chronic pain (principal)
CPT/HCPCS: 80307

== ENCOUNTER 2023-12-17 14:30 | Outpatient (RCR) | payer MEDICAID, SELFPAY ==
--- NOTE | 2023-10-30 15:38 | HP.PTEVAL_ITS ---
Patient's Visit Information Visit Information Visit Information: SRI CHACON is a 48 year old F referred to Physical Therapy by Dr. Joni Landis MD with a diagnosis of L meniscal tear/ knee injruy. Date of Evaluation: 10/29/23 Physical Therapist: Shan Minor DPT Visit Plan Frequency: 2x /Week Duration: 2 Months Plan: -low level quad strengthening -weight shifting/pre-gait act (working towards no AD, pt WBAT) -hamstring stretching -gait training with decreasing level of AD -standing balance act Pt requires high amount of education on pain and discomfort to expect, working on ROM, strength, and full WB, possible patellar tendon irritation ? (HEP: table HS stretch, quad set, LAQ, seated and supine heel slides, SLR, hip ABD) Subjective Subjective: Pt presents to PT with R knee pain, pt squatted down at work and felt some pain. Pt went in to work the next day and felt her knee blew when squatting down, meaning it gave out and she had to use her arms to pull herself up. Pt has been off of work since . Pt has hx of seizures, last one was 5 months ago. Denies any new numbness and tingling in RLE. Pt is unable to sleep a full night d/t pain. Went to pain management earlier this week, had an injection but felt it did not help. Denies any change with ice, heat, and pain medication. Pt using crutches all the time, sitting to shower, no stairs in house. 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 Major goals are to: prep for surgery, decreased pain Pain Left Knee: Pain Intensity (Out of 10): 9 Pain Intensity Range: 6 and 10 Objective Objective: ROM: lacking 30 deg ext, 90 deg flex (R WNL) MMT: L - knee ext 3/5 pain, knee flex 3+/5 pain, hip ABD 3/5, hip flex 3+/5 SLR: approx. 30 degrees knee ext lag PALPATION: TTP in HS, ant knee and patellar tendon, quadriceps tendon GAIT: antalgic with elia axillary crutches, using TTWB with knee bent constantly, but is WBAT Pt appears to hypersensitivity to pain, within the chronic phase of injury. Pt has limitations in ROM possibly exacerbated by hamstring tightness and amb. without an AD. Balance/Special Test Scores Lower Extremity Functional Score: 11 Goals Goal 1:: Pt will achieve full knee ROM (0-0-120) Goal Time Frame: 6-8 Weeks Goal 2:: Pt will demonstrate equal LE WB with STS Goal Time Frame: 2-4 Weeks Goal 3:: Pt will demonstrate 4/5 global R hip and knee strength Goal Time Frame: 6-8 Weeks Goal 4:: Pt will be able to amb. for >100ft with no AD Goal Time Frame: 6-8 Weeks Rehabilitation Potential Physical Therapy Diagnosis: Pt presents to PT with L knee pain, decreased tissue extensibility, weakness, and altered gait mechanics. Pt would benefit from skilled PT services to improve strength, gait mechanics, hamstring length, and overall ROM. Rehabilitation Potential: Fair Anticipated Interventions Patient/Client Instruction: Educate patient on: Condition, Plan of Care and Benefits of Fitness Program For the Purpose of:: To decrease pain, To increase ROM, To improve nutrient delivery to tissue, To improve muscle performance and motor function, To improve ability to perform ADL's, To increase tolerance to activity/condition/position, To improve performance and independence with ADL's, To improve ability of physical actions for home/community/work/leisure, To improve gait and locomotor functions, To improve health of tissue, To decrease soft tissue restriction, To increase flexibility/ROM, To improve endurance, To improve balance, To improve safety with gait, To assume or resume ADL's, To improve safety, To improve health and function, To foster healthy habits, To facilitate caregiver knowledge, To improve self management, To prevent re-injury, To improve ability to perform tasks related to life management and To improve tolerance to ADL's Therapeutic Exercise to Include: Strength training, Balance training, Flexibilty training, Gait and locomotor training, Neuromotor development, In an aquatic setting, Passive ROM and Active ROM For the Purpose of:: To decrease pain, To decrease swelling/inflammation, To increase ROM, To improve nutrient delivery to tissue, To increase oxygenation perfusion, To improve muscle performance and motor function, To increase tolerance to activity/condition/position, To improve performance and independence with ADL's, To improve ability of physical actions for home/comm unity/work/leisure, To improve gait and locomotor functions, To improve health of tissue, To decrease soft tissue restriction, To increase flexibility/ROM, To improve endurance, To improve balance, To improve safety with gait, To assume or resume ADL's, To improve self management, To prevent re-injury, To improve ability to perform tasks related to life management and To improve tolerance to ADL's Functional Training to Include: Gait training For the Purpose of:: To improve ability of physical actions for home/community/work/leisure, To improve gait and locomotor functions and To improve safety Manual Therapy Techniques to Include: Mobilization, Passive ROM and Soft tissue mobilization For the Purpose of:: To decrease pain, To decrease swelling/inflammation, To increase ROM, To decrease soft tissue restriction and To increase flexibility/ROM Assistive Devices: Cane For the Purpose of:: To improve gait and locomotor functions and To improve safety with gait Iontophoresis (with Dexamethozone, with Acetic acid): Yes TENS: Yes Cryotherapy (ice pack, ice massage): Yes Thermo therapy (hot pack): Yes Ultrasound (thermal/non thermal): Yes For the Purpose of:: To decrease pain, To decrease swelling/inflammation and To increase ROM Text: Thank you for the opportunity to evaluate your patient. For Medicare and Medicare HMO plans, please review the plan of care and approve it. It will need to be FAXED BACK to us at [phone] for Medicare purposes. For Medicare only, by signing this I certify the plan of care. Please let me know if there are questions or concerns regarding this plan of care. Physician Signature: Date:
--- NOTE | 2023-12-17 15:01 | HP.PTDCSUM ---
Discharge Summary D/C summary: It has been my pleasure to treat SRI CHACON referred by Dr. Joni Landis MD, with the diagnosis of L meniscal tear/ knee injruy for a total of 6 visit(s). Discharge Date: 12/17/23 Please see the following information for a summary of their discharge status. Subjective Subjective: Pt. is here today for her re assessment. Pt. reports having minimal to no relief with PT. She is still very limited with her ROM and unable to effectively bear wt. She reports that her knee wants to give out on her frequently. Pt. reports 9/10 pain pre treatment today. Pain Left Knee: Pain Intensity (Out of 10): 9 Overall Improvement % Improvement: 0 Objective Objective/Function: ROM: PROM in supine: 0-30-70deg. Pt. very guarded and painful with any mobility. Seated she was able to get to PROM of 0-20-80deg. GAIT: pt. is very hesitant to apply any weight to her L LE. She reports having to have the crutches or her leg gives out on her. MMT: in seated position. Pt. has 3-/5 in available range both of knee ext and flexion. She is able to complete a SLR, but maintains a large extensor lag. She has a constant 9/10 pain at rest and increases to 10/10 with any mobility. She has not tolerated therapy very well. I talked with her about really trying to work on her ROM. Pt. reports understanding, but reports being limited by severe pain. She reports having a nerve block without relief as well. She is to follow back up with physician next week to determine best course of action. Goals Goal 1:: Pt will achieve full knee ROM (0-0-120) Goal Progress: Not Progressing Goal 2:: Pt will demonstrate equal LE WB with STS Goal Progress: Not Progressing Goal 3:: Pt will demonstrate 4/5 global R hip and knee strength Goal Progress: Not Progressing Goal 4:: Pt will be able to amb. for >100ft with no AD Goal Progress: Not Progressing Plan Plan: Pt. to be DC from PT back to physician due to minimal benefit from PT. D/C Information d/c sentence: If there are questions or concerns regarding this patient's physical therapy, please feel free to call me at [phone]. Thank you for the referral of this patient. Sincerely, Shan Reeceos, DPT Balance/Gait/Functional tests Balance/Special Test Scores Lower Extremity Functional Score: 11 Improvement % Improvement: 0
== END 2023-12-17 19:00 | disposition home or self-care (01) ==
LOC: PT 14:30
PROVIDERS: PCP Nurse Practitioner Family; Referring Provider Orthopaedic Surgery Sports Medicine; Visit Provider Orthopaedic Surgery Sports Medicine
DX: S83.242D Other tear of medial meniscus, current injury, left knee, subsequent encounter (principal)
CPT/HCPCS: 97110; 97161; 97530

== ENCOUNTER 2025-03-06 10:39 | Emergency (ER) | payer MEDICAID, SELFPAY ==
[2025-03-06 10:39] VITALS: BP 132/58; PULSE 83; RESP 16; TEMP 36.7; O2SAT 96; BMI 26.8
--- NOTE | 2025-03-06 11:08 | CT_ITS ---
PROCEDURE: ABDOMEN/PELVIS W IV CONT ONLY 03/06/2025 REASON FOR EXAM: RIGHT FLANK PAIN, BRBPR TECHNIQUE: ABDOMEN/PELVIS W IV CONT ONLY Coronal and Sagittal reconstruction series were provided. CONTRAST: 104 cc, Isovue 370 One or more dose reduction techniques were used (e.g., Automated exposure control, adjustment of the mA and/or kV according to patient size, use of iterative reconstruction technique. RADIATION DOSE SUMMARY: DLP: 1158 mGycm COMPARISON: None FINDINGS: Lung bases: Clear Liver: Unremarkable Gallbladder: Unremarkable Spleen: Unremarkable Pancreas: Unremarkable Adrenals: Unremarkable Kidneys: There is a 1.2 cm stone in the right renal collecting system. There is moderate dilation of the right ureter with a 0.2 cm stone in the distal right ureter, 2 cm from the bladder base, image 99/125. There is no stone or hydronephrosis on the left. Bladder: Unremarkable Reproductive Organs: Surgically absent Bowel: Gas and stool is noted throughout the colon. Small bowel loops are not distended. Appendix: Unremarkable Lymph nodes: There is no pathologic adenopathy by size criteria. Vasculature: There is no significant atherosclerosis Peritoneum / Retroperitoneum: There is no free air or free fluid Bones: There is no acute bony abnormality. CT/Abdomen/Pelvis W IV Cont ONLY IMPRESSION: There is a 1.2 cm stone in the right renal collecting system. There is moderate dilation of the right ureter with a 0.2 cm stone in the distal right ureter, 2 cm from the bladder base, image 99/125. Critical results were discussed with Dr. Weiss by Dr. Matos at the time o f dictation. Reading Location: [facility]
--- NOTE | 2025-03-06 11:09 | ED.VIS.GI ---
HPI HPI - GI History of Present Illness Chief Complaint: Abd Pain Informant: patient Narrative Narrative: Patient is a 49-year-old female with history of renal stones, depression, hypertension, gallstones, hypothyroidism, IBS, migraines, traumatic brain injury, chronic pain (stomach and bilateral knees as well as migraines) multiple knee surgeries and prior hysterectomy presenting with right sided abdominal pain. States the pain started about 3 days ago. She states the pain is in her right back and radiates around her stomach. She describes it as a sharp and stabbing pain that also feels pulling. She is a feels different than her kidney stone pain. Denies associated rash. Also notes around same time she developed bright red blood per rectum. She states she has pain when she wipes even if she does not have a bowel movement. States her bowel movements are okay denies any hard or painful bowel movements. Denies any clots. Has never had this before. She states the pain is constant with no aggravating or alleviating factors. No urinary symptoms such as dysuria, hematuria or frequency. Denies any vaginal bleeding. Has tried [id number] Tylenol and ibuprofen with no relief. Came for further evaluation. Does report 1 transient fever when this first started. No other complaints or concerns reported at this time. Had colonoscopy on 01/20/2025?procedure report reviewed. Performed with Dr. Ho. She found nonbleeding internal hemorrhoids and one 6 to 10 mm polyp of the rectum which was removed. [facility] Medical History Tear of medial meniscus of left knee Migraines History of epilepsy Home Medications ?Medication ?Instructions ?Recorded ?Last Taken ?Type rimegepant 75 mg disintegrating 75 mg PO Q48H 12/16/20 Unknown History tablet (Nurtec ODT) lamotrigine 200 mg tablet,extended 200 mg PO TID 03/18/21 03/05/25 History release 24 hr trazodone 50 mg tablet 50 mg PO DAILY 04/05/21 03/05/25 History sertraline 50 mg tablet (Zoloft) 50 mg PO DAILY 03/27/22 03/05/25 History celecoxib 200 mg capsule 200 mg PO BID Pain #30 caps 09/14/23 03/05/25 Rx levothyroxine 88 mcg tablet 88 mcg PO DAILY 03/06/25 03/05/25 History Allergy/AdvReac Type Severity Reaction Status Date / Time aspirin Allergy Rash Verified 03/06/25 10:39 codeine Allergy Rash Verified 03/06/25 10:39 Fish Containing Products Allergy Rash Verified 03/06/25 10:39 morphine Allergy Rash Verified 03/06/25 10:39 Penicillins Allergy Rash Verified 03/06/25 10:39 shellfish derived Allergy Rash Verified 03/06/25 10:39 diphenhydramine HCl (From AdvReac Other Verified 03/06/25 10:39 Benadryl) promethazine HCl (From AdvReac Other Verified 03/06/25 10:39 Phenergan) Surgical History H/O wrist surgery History of hysterectomy Social History Smoking Status: Never smoker substance use type: does not use ROS ROS ED Constitutional Constitutional ED: Reports fever(s) Cardiovascular Cardiovascular: Denies chest pain Respiratory/Chest Respiratory/Chest: Denies cough Gastrointestinal Gastrointestinal: Reports abdominal pain and other Details: Bright red blood per rectum ; Denies diarrhea, melena, nausea or vomiting Genitourinary Genitourinary ED: Denies dysuria, hematuria or urinary frequency Musculoskeletal Musculoskeletal: Reports other Details: Right flank pain ; Denies arthralgias or myalgias Integumentary Denies rash Neurologic Neurologic: Denies weakness Hematologic/Lymphatic Hematologic/Lymphatic: Denies easy bleeding or easy bruising EXAM Physical Exam Const Vital Signs: 03/06/25 10:39 03/06/25 12:39 03/06/25 14:00 Temperature 98.0 F Temperature Source Oral Pulse Rate 83 88 Respiratory Rate 16 16 Blood Pressure 132/58 H 134/78 H 139/87 H Blood Pressure Mean 82 96 104 Pulse Ox 96 98 100 Oxygen Delivery Method Room Air Room Air Positive well nourished and well developed General Appearance ED: well developed and NAD HEENT Reports moist mucous membranes normocephalic and atraumatic Eyes PERRL Neck supple Resp normal respiratory effort and clear to auscultation bilaterally Cardio regular rate and regular rhythm GI non-tender and non-distended GI Narrative: Abdomen is soft on exam however patient reports pain in her right upper quadrant with palpation. Negative Sutton sign. Palpation: soft and tender RLQ; Negative for guarding or rigid Back/Spine Back/Spine Narrative: Does not display discomfort when I palpate her CVA but she states it is painful General Back: CVA tenderness right Extremity full ROM Extremity Narrative: Hinged knee brace in place on the left lower General Extremety ED: Negative for edema General Extremity: Negative for edema Neuro moves all extremities Sensorium / Orientation: alert, oriented to person and oriented to place Motor Exam: Negative for general weakness Psych mental status grossly normal and thought process normal Skin no wounds Rashes: no rashes MDM MDM MDM Narrative Medical decision making narrative: Patient presenting for worsening right flank pain. She states it radiates across her upper abdomen and not down which is different than her prior kidney stones. Differential includes muscle skeletal pain, thoracic radiculopathy, renal colic, pyelonephritis, TAIWO, pancreatitis and biliary colic. Patient given IV 0.5 mg Dilaudid, Zofran and fluids in the emergency room however on repeat evaluation she states her pain is quite severe and medication is not helped yet. She is redosed with 1 mg IV Dilaudid and given Toradol. Her CBC and CMP largely normal. Normal kidney function. Urinalysis does show positive nitrates with greater than 100 red blood cells but no bacteria seen. CT of the abdomen and pelvis shows a 1.2 cm stone of the right renal collecting system as well as moderate dilation of the right ureter with 0.2 cm stone of the distal ureter on the right approximately 2 cm away from the bladder. Likely this is the cause of her consolation of symptoms. Given then exceedingly large stone at the bladder pelvis, intractable pain and nitrates concerning for associated infection I do think she benefit from admission. Unfortunately do not have urology coverage here today. Patient receives her other outpatient care through [facility] will contact the transfer line. Patient given IV Rocephin in the emergency room. Case discussed with hospitalist at [facility], Dr. Mahoney. She is excepted to the medicine service there. Patient agreed with this plan of care. Lab Data Attestation: I reviewed the patient's lab results. Labs: Laboratory Results - last 24 hr 03/06/25 03/06/25 03/06/25 11:18 11:18 11:33 WBC Cancelled 6.8 Corrected WBC Cancelled RBC Cancelled 4.49 Hgb Cancelled 13.2 Hct Cancelled 40.0 MCV Cancelled 89.1 MCH Cancelled 29.4 MCHC Cancelled 33.0 RDW Std Deviation Cancelled 42.0 RDW Coeff of Kg Cancelled 12.9 Plt Count Cancelled 223 MPV Cancelled 9.2 Immature Gran % (Auto) Cancelled 0.400 Neut % (Auto) Cancelled 56.2 Lymph % (Auto) Cancelled 27.9 Baxter % (Auto) Cancelled 8.9 Eos % (Auto) Cancelled 6.2 H Baso % (Auto) Cancelled 0.4 Absolute Neuts (auto) Cancelled 3.8 Absolute Lymphs (auto) Cancelled 1.89 Total Counted Cancelled Neutrophils % (Manual) Cancelled Band Neutrophils % Cancelled Lymphocytes % (Manual) Cancelled Monocytes % (Manual) Cancelled Eosinophils % (Manual) Cancelled Basophils % (Manual) Cancelled Metamyelocytes % Cancelled Myelocytes % Cancelled Promyelocytes % Cancelled Blast Cells % Cancelled Plasma Cell % (Manual) Cancelled Other Cells % Cancelled Nucleated RBC % Cancelled 0 Nucleated RBCs/100 WBC Cancelled Differential Comment Cancelled Diff Path Review Cancelled Hypersegmented Neuts Cancelled Atypical Lymphocytes Cancelled Reactive Lymphocytes Cancelled Smudge Cells Cancelled Toxic Granulation Cancelled Toxic Vacuolation Cancelled Dohle Bodies Cancelled Kizzy Rods Cancelled Platelet Estimate Cancelled Plt Morphology Comment Cancelled RBC Morphology Cancelled Cancelled Polychromasia Cancelled Hypochromasia Cancelled Basophilic Stippling Cancelled Anisocytosis Cancelled Microcytosis Cancelled Macrocytosis Cancelled Spherocytes Cancelled Sickle Cells Cancelled Target Cells Cancelled Tear Drop Cells Cancelled Ovalocytes Cancelled Stomatocytes Cancelled [place] Bodies Cancelled Sinclair Cells Cancelled Bite Cells Cancelled Crenated Cell Cancelled Acanthocytes (Spur) Cancelled Rouleaux Cancelled Schistocytes Cancelled Sodium 140 Potassium 4.4 Chloride 106 Carbon Dioxide 23.5 Anion Gap 10 BUN 13 Creatinine 0.76 Estim Creat Clear Calc 76.11 Est GFR (MDRD) Non-Af 96 BUN/Creatinine Ratio 17.4 Glucose 93 Calcium 9.2 Total Bilirubin 0.49 AST 27 ALT 14 Alkaline Phosphatase 104 Total Protein 7.2 Albumin 3.9 Globulin 3.2 Albumin/Globulin Ratio 1.2 Lipase 24 Urine Color Urine Clarity Urine pH Ur Specific [place] Urine Protein Urine Glucose (UA) Urine Ketones Urine Occult Blood Urine Nitrite Urine Bilirubin Urine Urobilinogen Ur Leukocyte Esterase Urine RBC Urine WBC Ur Squamous Epith Cells Urine Bacteria Urine Mucus 03/06/25 12:09 WBC Corrected WBC RBC Hgb Hct MCV MCH MCHC RDW Std Deviation RDW Coeff of Kg Plt Count MPV Immature Gran % (Auto) Neut % (Auto) Lymph % (Auto) Baxter % (Auto) Eos % (Auto) Baso % (Auto) Absolute Neuts (auto) Absolute Lymphs (auto) Total Counted Neutrophils % (Manual) Band Neutrophils % Lymphocytes % (Manual) Monocytes % (Manual) Eosinophils % (Manual) Basophils % (Manual) Metamyelocytes % Myelocytes % Promyelocytes % Blast Cells % Plasma Cell % (Manual) Other Cells % Nucleated RBC % Nucleated RBCs/100 WBC Differential Comment Diff Path Review Hypersegmented Neuts Atypical Lymphocytes Reactive Lymphocytes Smudge Cells Toxic Granulation Toxic Vacuolation Dohle Bodies Kizzy Rods Platelet Estimate Plt Morphology Comment RBC Morphology Polychromasia Hypochromasia Basophilic Stippling Anisocytosis Microcytosis Macrocytosis Spherocytes Sickle Cells Target Cells Tear Drop Cells Ovalocytes Stomatocytes [place] Bodies Sinclair Cells Bite Cells Crenated Cell Acanthocytes (Spur) Rouleaux Schistocytes Sodium Potassium Chloride Carbon Dioxide Anion Gap BUN Creatinine Estim Creat Clear Calc Est GFR (MDRD) Non-Af BUN/Creatinine Ratio Glucose Calcium Total Bilirubin AST ALT Alkaline Phosphatase Total Protein Albumin Globulin Albumin/Globulin Ratio Lipase Urine Color Yellow Urine Clarity Sl. Cloudy Urine pH 6.5 Ur Specific [place] 1.015 Urine Protein 100 H Urine Glucose (UA) Normal Urine Ketones Negative Urine Occult Blood 250 H Urine Nitrite Positive H Urine Bilirubin Negative Urine Urobilinogen Normal Ur Leukocyte Esterase 25 H Urine RBC > 100 SEEN Urine WBC 0 SEEN Ur Squamous Epith Cells 0-5 SEEN Urine Bacteria 0 SEEN Urine Mucus 0 SEEN Radiography Diagnostic Testing: Clinical Impression(s) from Imaging Studies Abdomen/Pelvis CT 03/06/25 11:08 IMPRESSION: There is a 1.2 cm stone in the right renal collecting system. There is moderate dilation of the right ureter with a 0.2 cm stone in the distal right ureter, 2 cm from the bladder base, image 99/125. Critical results were discussed with Dr. Weiss by Dr. Matos at the time of dictation. Reading Location: [facility] Management Discussion w/another healthcare provider: Hospitalist Discharge Plan Triage Chief Complaint: Abd Pain ED Provider: Hailee Weiss Dx/Rx/DC Orders Clinical Impression: Right flank pain, UTI (urinary tract infection), Renal colic on right side, Ureterolithiasis, Calculus of renal pelvis Prescriptions: No Action lamotrigine 200 mg tablet extended release 24hr 200 mg PO TID Patient Comments: TAKE 2 TABLETS BY MOUTH TWICE DAILY trazodone 50 mg tablet 50 mg PO DAILY celecoxib 200 mg capsule 200 mg PO BID Qty: 30 0RF Rx Instructions: Do not take in conjunction with other NSAIDs. Tylenol is okay. Nurtec ODT 75 mg Tablet,Disintegrating 75 mg PO Q48H sertraline [Zoloft] 50 mg Tablet 50 mg PO DAILY levothyroxine 88 mcg tablet 88 mcg PO DAILY Primary Care Provider: Jimenez Cabrera NP Referrals: Jimenez Cabrera NP, REGULATORY ADMINISTRATOR-C [Primary Care Provider] - Print Language: Chilean Disposition Disposition: Acute Care Hospital Discharge Location: [facility]
[2025-03-06 11:41] LABS: Hematocrit 40.0 % (37-47); Hemoglobin 13.2 g/dL (12.0-15.0); Immature Granulocytes Count 0.030 X10^3/uL (0.0-0.0); Mean Corp Hgb Conc 33.0 g/dL (32-36); Mean Corpuscular Volume 89.1 fL (81-99); Mean Platelet Vol. 9.2 fl (6.2-12.0); NRBC Flagged by Analyzer 0 % (0-5); Platelet Count 223 K/mm3 (150-450); RBC Distribution Width CV 12.9 % (11.6-14.6); RBC Distribution Width SD 42.0 fl (35.1-43.9); Red Blood Count 4.49 M/mm3 (4.2-5.4); White Blood Count 6.8 K/mm3 (4.4-11.0)
[2025-03-06 11:56] LABS: AST(SGOT) 27 U/L (<=31); Alanine Aminotransfer ALT/SGPT 14 U/L (<=34); Albumin, Serum 3.9 g/dL (3.5-5.0); Alkaline Phosphatase 104 U/L (35-104); Anion Gap 10 (5-15); BUN 13 mg/dL (4-19); BUN/Creat Ratio 17.4 RATIO (10-20); Calcium,Total 9.2 mg/dL (7.6-11.0); Carbon Dioxide 23.5 mmol/L (21.0-32.0); Chloride 106 mmol/L (98-108); Estimated Creatinine Clearance 76.11 ml/min (50-250); Globulin 3.2 g/dL (2.2-4.2); Glucose 93 mg/dL (70-99); Lipase 24 U/L (13-75); Potassium 4.4 mmol/L (3.3-5.1)
[2025-03-06] MEDS: 0.9% Normal Saline (1000mL) 1,000 ML 125 ML IV (12:12)
[2025-03-06 12:18] LABS: Mucous, Urine 0 SEEN /hpf (<or=2+)
[2025-03-06 12:30] LABS: Color, Urine Yellow (Yellow); Glucose, Dipstick Normal (Normal); Ketone-Dipstick Negative (Negative); Leukocyte Esterase-Dipstick 25 /ul (Negative); Nitrite-Dipstick Positive (Negative); Occult Blood-Urine 250 /ul (Negative); Protein-Dipstick 100 mg/dl (Negative); Specific Gravity, Urine 1.015 (1.002-1.030); Urine Bilirubin Dipstick Negative (Negative)
[2025-03-06 12:39] VITALS: BP 134/78; PULSE 88; RESP 16; O2SAT 98
[2025-03-06 12:39] LABS: Red Blood Cells-Urine > 100 SEEN /hpf (0-5); Squamous Epithelial Cells - UA 0-5 SEEN /hpf (5-10)
[2025-03-06 14:00] VITALS: BP 139/87; O2SAT 100
--- NOTE | 2025-03-06 14:03 | PCA ---
CALLED [facility] @ [phone] FAXED FACESHEET AND PUSHED IMAGES THEY ACCPETED HER @ [phone] ETA IS [phone]
--- NOTE | 2025-03-06 15:39 | PCA ---
STILL WAITING ON BED, PUT RIDE ON WILL CALL
[2025-03-06 16:00] VITALS: BP 129/81; PULSE 70; O2SAT 99
--- NOTE | 2025-03-06 16:49 | PCA ---
CC CALLED WITH A BED ASSIGNMENT [facility] AND IT IS 475 BED 2
[2025-03-06 18:00] VITALS: BP 156/72; PULSE 78; RESP 18; O2SAT 98
--- NOTE | 2025-03-06 18:31 | CM.ED ---
Social Work SW met with patient due to admitting to suicidal ideations during triage assessment. Patient states that she has chronic suicidal ideations, that she does have a method but no intent. Patient states she has had suicidal ideations much of her life, that if she did not have her and grandchildren that she would not be here. However, patient states that she has custody of her two grandchildren, age 1 and 3, and she would never hurt herself because of them. Patient states that she recently began an IOP program and has a safety plan. Patient feels that her recent focus on her mental health has helped and she is discovering who she is. Patient denies need for additional resources, thanked SW for coming to talk. Opal Alexander, COMMERCIAL SEWING INSTRUCTOR, INTERFACE DEVELOPER
[2025-03-06 18:55] VITALS: BP 156/72; PULSE 78; RESP 18; TEMP 36.6; O2SAT 98
--- OUTSIDE RECORDS SUMMARY | 2025-03-06 22:14 | XMS RPT_ITS | CCD ---
Author Organization [facility] Care Team Providers Care Clothing Sales Assistant Name Role Phone Ludwig Mace Unavailable Alberto Matamoros MD Unavailable [phone] Terry Boykin, Jimenez Barahona Primary Care Provider Terry Boykin MD, Jimenez Barahona Primary Care Provider Terry Boykin MD, Jimenez Barahona Primary Care Provider Terry Boykin MD, Jimenez Barahona Primary Care Provider Unavailable Primary Care Provider Unavailabl e ARTHUR CASINO GAMING INSPECTOR-SPOOL TENDER, ELIZ Primary Care Physician [phone] DAIJA CARRANZA, DAYAN Attending Unavailab rohit GIBSON APRN-GEMMA, ELIZ Primary Care Unavailabl e DAIJA MENDEZ-GEMMA, DAYAN Attending Unavailab rohit BALGUSTABO DUMASN-SPOOL TENDER, ELIZ Primary Care Unavailabl e Deborah ADDICTION TREATMENT COUNSELOR, ADDICTION TREATMENT COUNSELOR-C Jimenez Ibarra Primary Care Pr ovider Deborah MOODY, ADDICTION TREATMENT COUNSELOR-C Jimenez Ibarra Referring Provi ian ANDREA Portillo Attending Provider [phone] Dr. Delgado Engle Attending Provider Dr. Vince Wall Attending Provider Deborah MOODY, ADDICTION TREATMENT COUNSELOR-C Jimenez Ibarra Primary Care Pr ovider Deborah MOODY, ADDICTION TREATMENT COUNSELOR-C Jimenez Ibarra Referring Provi ian ANDREA Portillo Attending Provider [phone] Dr. Delgado Engle Attending Provider Dr. Vince Wall Attending Provider [phone] MD Joni Landis Attending Provider Unavailable Primary Care Provider Unavailslade Stewart Jr., MD, Jimenez Barahona Primary Care Provider YESICA BEAN Attending Unavailable SELF Referring Unavailable Vince Wall Attending Unavailable Vince Wall Referring Unavailable Faulk ADDICTION TREATMENT COUNSELOR, Jimenez Ibarra Primary Care Unav ailable Vince Wall Referring Unavailable Faulk ADDICTION TREATMENT COUNSELOR, Jimenez Ibarra Primary Care Unav ailable Vince Wall Attending Unavailable Deborah ADDICTION TREATMENT COUNSELOR, Jimenez Fred Primary Care Unav ailable PraysonGordy Attending Unavailable PraysonFeiGordy Referring Unavailable Deborah ADDICTION TREATMENT COUNSELOR, Jimenez Ibarra Primary Care Unav ailable NellastLyudmila Attending Unavailable Nellast Lyudmila Referring Unavailable Carla Moore Attending Unavailable Deborah ADDICTION TREATMENT COUNSELOR, Jimenez Ibarra Primary Care Unav ailable Deborah ADDICTION TREATMENT COUNSELOR, Jimenez Ibarra Referring Unav ailable Faulk ADDICTION TREATMENT COUNSELOR, Jimenez Ibarra Primary Care Unav ailable Vince Wall Attending Unavailable Deborah ADDICTION TREATMENT COUNSELOR, Jimenez Sancheznis Referring Unav ailable Deborah ADDICTION TREATMENT COUNSELOR, Jimenez Ibarra Primary Care Unav ailable Joni Landis Attending Unavailable Deborah ADDICTION TREATMENT COUNSELOR, Jimenez Fred Referring Unav ailable Faulk ADDICTION TREATMENT COUNSELOR, Jimenez Ibarra Primary Care Unav ailable Joni Landis Attending Unavailable Vince Wall Attending Unavailable Faulk ADDICTION TREATMENT COUNSELOR, Jimenez Sancheznis Referring Unav ailable Deborah ADDICTION TREATMENT COUNSELOR, Jimenez Ibarra Primary Care Unav ailable Faulk ADDICTION TREATMENT COUNSELOR, Jimenez Ibarra Primary Care Unav ailable Joni Landis Attending Unavailable Joni Landis Referring Unavailable Queden CASINO GAMING INSPECTOR.Iveth MENENDEZ Primary Care Provider IVETH HERNANDEZ Primary Care Unavailable PROVIDER, UNKNOWN Referring Unavailable RONNIE PETTIT Attending Unavailable IRENE RANDOLPH Referring Unavailab RONNIE Rollins Attending Unavailable ELIZABETH BROWN Referring Unavailable RONNIE PETTIT Attending Unavailable ELIZABETH BROWN Referring Unavailable RONNIE PETTIT Attending Unavailable IRENE RANDOLPH Referring Unavailab le IRENE RANDOLPH Referring Unavailab le IVETH HERNANDEZ A Primary Care Unavailable YEVGENIY CUMMINS Attending Unavailable ANAYA BARTLETT Attending Unavailable ANAYA BARTLETT Referring Unavailable BENDARAM, DEBBIE BE Referring Unavaila ble SARIKA ALVARADO Attending Unavailable CHICORELLI, IRENE DARLING Attending Unavailab le CHICORELLI, IRENE DARLING Referring Unavailab le SAMANRONNIE Attending Unavailable STEPHANIE, ELIZABETH Referring Unavailable QUEDEN, IVETH A Primary Care Unavailable QUEDEN, IVETH A Attending Unavailable QUEDEN, IVETH A Referring Unavailable CHICORELLI, IRENE DARLING Attending Unavailab le BEANYESICA Referring Unavailable QUEDEN, IVETH A Primary Care Unavailable QUEDEN, IVETH A Referring Unavailable SANIA PRICE Attending Unavailable CHICORELLI, IRENE DARLING Referring Unavailab le QUEDEN, IVETH A Primary Care Unavailable BENDARAM, DEBBIE BE Attending Unavaila ble CHICORELLIIRENE Referring Unavailab le CHICORELLI, IRENE DARLING Attending Unavailab le CHICORELLIIRENE Referring Unavailab le CHICORELLI, IRENE DARLING Referring Unavailab le RONNIE PETTIT Attending Unavailable STEPHANIE, ELIZABETH Referring Unavailable SAMANRONNIE Attending Unavailable STEPHANIE, ELIZABETH Referring Unavailable SAMAN, RONNIE Attending Unavailable STEPHANIE, ELIZABETH Referring Unavailable SAMAN, RONNIE Attending Unavailable STEPHANIE, ELIZABETH Referring Unavailable SAMAN, RONNIE Attending Unavailable CHICORELLI, IRENE DARLING Referring Unavailab le SAMAN, RONNIE Attending Unavailable CHICORELLIIRENE Referring Unavailab le ALEXOPOULOS VKRISTIN Attending Unavailab le HUNTER, GILMAR R Admitting Unavailable CHICORELLI, IRENE DARLING Attending Unavailab le CHICORELLI, IRENE DARLING Admitting Unavailab le CHICORELLIIRENE Admitting Unavailab le CHICORELLI, IRENE DARLING Attending Unavailab le SAMAN, RONNIE Attending Unavailable STEPHANIE, ELIZABETH Referring Unavailable SAMAN, RONNIE Attending Unavailable STEPHANIE, ELIZABETH Referring Unavailable SAMAN, RONNIE Attending Unavailable CORPUS CHRISTI, ELIZABETH Referring Unavailable SAMAN, RONNIE Attending Unavailable CORPUS CHRISTI, ELIZABETH Referring Unavailable CHICORELLIIRENE Referring Unavailab le QUEDEN, IVETH A Primary Care Unavailable STEPHANIE, ELIZABETH Attending Unavailable CHICORELIRENE POLO Referring Unavailab le CHICORELLI, IRENE DARLING Referring Unavailab le CHICORELLI, IRENE DARLING Attending Unavailab le SIERRA THOMPSON Attending Unavailable ANAYA BARTLETT Attending Unavailable ZHANNA SHAH Attending Unavailable QUEDEN, IVETH A Primary Care Unavailable QUEDEN, IVETH A Referring Unavailable CHICORELLI, IRENE DARLING Attending Unavailab le CHICORELLI, IRENE DARLING Referring Unavailab le QUEDEN, IVETH A Primary Care Unavailable CHICORELLI, IRENE DARLING Referring Unavailab le TIZZANO, DARIAN Abdi Attending Unavailable QUEDEN, IVETH A Primary Care Unavailable TIZZANODARIAN Referring Unavailable QUEDEN, IVETH A Primary Care Unavailable CHICORELLI, IRENE DARLING Attending Unavailab le QUEDEN, IVETH A Primary Care Unavailable ALBERTSANIA Attending Unavailable ALBERTSANIA Referring Unavailable QUEDEN, IVETH A Primary Care Unavailable TIZZANODARIAN Attending Unavailable QUEDEN, IVETH A Primary Care Unavailable URIEL GREENWOOD Attending Unavailable CHICORELLI, IRENE DARLING Attending Unavailab SEVEN Soria Referring Unavailable CHICORELLI, IRENE DARLING Referring Unavailab le CHICORELLI, IRENE DARLING Attending Unavailab le QUEDEN, IVETH A Primary Care Unavailable QUEDEN, IVETH A Referring Unavailable ELIZABETH BROWN Referring Unavailable STEPH NEELY Attending Unavailable SIERRA THOMPSON Referring Unavailable CHICORELLI, IRENE DARLING Referring Unavailab le CHICORELLI, IRENE DARLING Attending Unavailab le RESHMA LYMAN Attending Unavailable QUEDEN, IVETH A Primary Care Unavailable HODAKIEVICANI Attending Unavailab le QUEDEN, IVETH A Primary Care Unavailable ANA JONES Attending Unavail able PREBISHFRIDA Attending Unavailable QUEDEN, IVETH A Primary Care Unavailable JOSE RODRIGUEZ Attending Unava ilZHANNA Ochoa Referring Unavailable QUEDEN, IVETH A Primary Care Unavailable SELF Referring Unavailable QUEDEN, IVETH A Attending Unavailable PREBISHFRIDA Attending Unavailable SELF Referring Unavailable QUEDEN, IVETH A Primary Care Unavailable QUEDEN, IVETH A Primary Care Unavailable GLORIA MSITH Attending Unavailable QUEDEN, IVETH A Primary Care Unavailable PREBISH, FRIDA Referring Unavailable HODAKIEVANI DOWD Attending Unavailab Porter, Jimenez Ibarra Primary Care Provi ian Dr. Hailee Weiss DO Emergency Provider Allergies Allergy Classification Reported Allergen(s) Allergy Type Date of Onset Reaction(s) Facility Aspirin (2 sources) Aspirin Drug Allergy 09-24-19 19 Rash [facility] diphenhydrAMINE (2 sources) diphenhydrAMINE Drug Allergy 07-01-20 06 Mental Status Change [facility] Opioid Agonists (4 sources) Codeine Drug Allergy 07-01-20 06 Hives, Swelling [facility] Penicillins (antibiotic) (2 sources) Penicillins Drug Allergy 07-01-20 06 Hives, Swelling [facility] Promethazine (2 sources) Promethazine Drug Allergy 07-01-20 06 Intolerance [facility] Shellfish (2 sources) Shellfish Food Allergy 10-20-19 19 Anaphylaxis [facility] (3 sources) penicillin; Translations: [Penicillin -class of antibiotic- (substance)] Drug Allergy 12-23-19 17 HIVES, VOMITING [facility] Work Phone: (1 source) Adrenergic Beta-Antagonists drug allergy 03-08-20 19 heart races [facility] Work Phone: (1 source) diphenhydrAMINE Drug Allergy 03-08-20 19 nasty personality [facility] Work Phone: (1 source) Morphine Drug Allergy 03-08-20 19 throat closes [facility] Work Phone: (1 source) Penicillins (Antibiotic) drug allergy 03-08-20 19 throat closes [facility] Work Phone: (1 source) Promethazine Drug Allergy 03-08-20 19 heart race [facility] Work Phone: (20 sources) Aspirin; Translations: [aspirin] Drug Allergy 09-24-19 19 Rash [facility] (20 sources) Codeine; Translations: [codeine] Drug Allergy 07-08-20 06 Hives, Swelling [facility] (20 sources) diphenhydrAMINE; Translations: [DIPHENHYDRAMINE HCL] Drug Allergy 07-01-20 06 Mental Status Change [facility] Work Phone: (20 sources) Morphine; Translations: [morphine] Drug Allergy 07-01-20 Swelling [facility] Work Phone: (20 sources) Penicillin G; Translations: [PENICILLIN G] Drug Allergy 07-01-20 06 Hives, Swelling [facility] Work Phone: (20 sources) Promethazine; Translations: [PROMETHAZINE HCL] Drug Allergy 07-01-20 Intolerance, Mental Status Change [facility] (9 sources) Salicylic Acid; Translations: [SALICYLATES] Drug Allergy 07-01-20 Swelling [facility] Work Phone: (20 sources) Shellfish; Translations: [SHELLFISH DERIVED] Drug Allergy 10-20-19 19 Anaphylaxis [facility] Comment on above: FROM SEAFOOD ALLERGY (12 sources) Penicillins; Translations: [Penicillins] Allergy to substance 04-11-20 [facility] (5 sources) Seafood Allergy to substance 04-11-20 Rash, ANAPHYLACTIC [facility] (20 sources) Salicylate product Propensity to adverse reactions 07-01-20 Swelling [facility] Work Phone: (10 sources) Fish Containing Products; Translations: [FISH CONTAINING PRODUCTS] Allergy to substance 01-13-20 [facility] Comment on above: FROM SEAFOOD ALLERGY (2 sources) diphenhydrAMINE; Translations: [diphenhydramine] Drug Allergy COMBATIVE [facility] (2 sources) Metoprolol; Translations: [metoprolol] Drug Allergy CHEST ON FIRE [facility] (2 sources) Promethazine; Translations: [promethazine] Drug Allergy DE [place] CR[place] VEINS [facility] (2 sources) Shellfish; Translations: [shellfish] Food allergy ANAPHYLACTIC [facility] (20 sources) Fish Drug Allergy 01-13-20 Rash [facility] (1 source) Aspirin Drug Allergy 12-21-19 [facility] (1 source) Codeine Drug Allergy 12-21-19 [facility] (1 source) diphenhydrAMINE Drug Allergy 12-21-19 [facility] (1 source) Morphine Drug Allergy 12-21-19 [facility] (1 source) Promethazine Drug Allergy 12-21-19 [facility] (1 source) Fish Containing Products Drug allergy (disorder) 12-21-19 [facility] Repository Medications Current Medications Medication Drug Class(es) Dates Sig (Normalized) Sig (Original) acetaminophen 325 mg / oxyCODONE hydrochloride 5 mg oral tablet (4 sources) Opioid Agonist Start: 10-04-2024 End: 10-09-2024 take 1 tablet by mouth every six hours as needed for pain oxyCODONE-acetamino phen (PERCOCET) 5-325 mg tablet Indications: Postoperative pain Take 1 tablet by mouth every 6 hours as needed for pain for up to 5 days. 10 tablet 10/04/2024 11:36 AM EST 10/04/2024 10/09/2024 Active Start: 04-27-2024 End: 05-04-2024 take 1 tablet by mouth every eight hours as needed for pain oxyCODONE-acetaminophen (PERCOCET) 5-325 mg tablet Indications: Tear of medial meniscus of left knee, current, unspecified tear type, initial encounter , S/P arthroscopy of knee Take 1 tablet by mouth every 8 hours as needed for pain for up to 7 days. 15 tablet 04/27/2024 05/04/2024 Active Start: 12-16-2016 End: 12-19-2016 OXYCODONE-ACETAMINOPHEN 5-32 5 MG TABS Take one tablet every 6 hours as needed for pain OXYCODONE-ACETAMINOPHEN [id number] Chencho MENDEZ celecoxib 200 mg oral capsule (7 sources) Nonsteroidal Anti-inflammatory Drug Start: 09-14-2023 take 1 capsule by mouth twice daily Celecoxib 200 mg capsule Active 200 mg PO TWICE A DAY 30 0 September 14, 2023 1:00am Left knee pain Pain in left knee Pain Do not take in conjunction with other NSAIDs. Tylenol is okay. cephalexin 500 mg oral capsule (2 sources) Cephalosporin Antibacterial Start: 12-15-2021 take 500 mg by mouth every six hours Cephalexin Active 500 MG PO EVERY 6 HOURS December 15, 2021 2:23pm Start: 12-16-2016 End: 12-26-2016 CEPHALEXIN 500 MG CAPS Take one cap every 12 hours CEPHALEXIN [id number] Chencho MENDEZ escitalopram 20 mg oral tablet (14 sources) Serotonin Reuptake Inhibitor Start: 10-30-2020 escitalopram 20 mg oral tablet Dose : 20 mg = 1 tab(s), Oral, qDay, # 90 tab(s), 0 Refill(s), Pharmacy: [id number], Depressed state, 153, cm, 10/30/20 15:10:00 EDT, Height, kg, 10/30/20 15:10:00 EDT, Dosing Weight Start Date: 10/30/20 Status: Ordered Start: 09-28-2020 End: 03-18-2021 take 1 tablet by mouth once daily Escitalopram Oxalate 10 MG tablet Discontinued 10 mg PO DAILY September 28, 2020 1:00am March 18, 2021 8:06am meloxicam 15 mg oral tablet (5 sources) Nonsteroidal Anti-inflammatory Drug Start: 09-10-2020 End: 03-29-2022 meloxicam 15 mg oral tablet 0 Refill(s) Start Date: 09/10/20 Status: Ordered Comment on above: Take 1 tablet by brady th once daily as needed for pain (with food). pindolol 5 mg oral tablet (3 sources) beta-Adrenergic Lyndsey Start: 03-19-2023 pindol ol 5 mg oral tablet Dose : 5 mg = 1 tab(s), Oral, BID, # 60 tab(s), 3 Refill(s), Pharmacy: [id number], 155, cm, 03/19/23 14:38:00 EDT, Height, kg, 03/19/23 14:38:00 EDT, Dosing Weight Start Date: 03/19/23 Status: Ordered Start: 12-16-2016 PINDOLOL TABS as directed PINDOLOL TABS [id number] Deja Sexton LPN polyethylene glycol 3350 663382 mg / potassium chloride 2970 mg / sodium bicarbonate 6740 mg / sodium chloride 5860 mg / sodium sulfate 66625 mg powder for oral solution (1 source) Osmotic Laxative Start: 12-07-2024 End: 12-07-2024 peg 3350-Electrolytes (GOLYTELY) 236-22.74-6.74 -5.86 gram suspension Indications: Screening for colon cancer Take 4,000 mL by mouth one time only for 1 dose. Refer to printed prep instructions from your provider. 4000 mL 12/07/2024 12/07/2024 Active rimegepant 75 mg disintegrating oral tablet (14 sources) Start: 10-30-2020 Rimegepant (Nurtec Odt) 75 mg Tablet,Disintegrating Active 75 mg PO Q48H December 16, 2020 12:00am sertraline 50 mg oral tablet (10 sources) Serotonin Reuptake Inhibitor Start: 03-27-2022 take 1 tablet by mouth once daily Sertraline (Zoloft) 50 mg Tablet Active 50 mg PO DAILY March 27, 2022 12:00am traMADol hydrochloride 50 mg oral tablet (7 sources) Opioid Agonist Start: 10-12-2024 End: 10-17-2024 take 1 tablet by mouth every eight hours as needed for pain traMADol (ULTRAM) 50 mg tablet Indications: Chronic pain of left knee , Arthrofibrosis of knee joint, left , Postoperative pain Take 1 tablet by mouth every 8 hours as needed for pain for up to 5 days. 15 tablet 10/12/2024 10/17/2024 Active Start: 10-04-2024 End: 10-04-2024 take 1 dose by mouth once 50 mg, ORAL, ONCE, 1 dose, O n 10/04/24 at 1100, Recovery or Phase I (only) Start: 08-19-2024 End: 08-29-2024 take 1 tablet by mouth every four hours as needed for pain traMADol (ULTRAM) 50 mg tablet Indications: Chronic pain of left knee Take 1 tablet by mouth every 4 hours as needed for pain for up to 10 days. for pain. 30 tablet 1 08/19/2024 08/29/2024 Active Start: 07-15-2024 End: 07-20-2024 take 1 tablet by mouth every eight hours as needed for pain traMADol (ULTRAM) 50 mg tablet Indications: Postoperative pain Take 1 tablet by mouth every 8 hours as needed for pain for up to 5 days. for pain. 15 tablet 07/15/2024 07/20/2024 Active traZODone hydrochloride 50 mg oral tablet (12 sources) Serotonin Reuptake Inhibitor Start: 04-05-2021 take 1 tablet by mouth once daily Trazodone 50 mg tablet Active 50 mg PO DAILY April 05, 2021 12:00am Completed/Discontinued Medications Medication Drug Class(es) Dates Sig (Normalized) Sig (Original) acetaminophen 500 mg oral tablet (1 source) Start: 10-04-2024 End: 10-04-2024 1,000 mg, ORAL, DIRECTED, Starting on Thu10/04/24 at 0830, Until Thu10/04/24 at 1027, pre o[ med, Preprocedure acetaminophen 325 mg / HYDROcodone bitartrate 5 mg oral tablet (7 sources) Opioid Agonist Start: 09-19-2023 End: 09-28-2023 Hydrocodone-Acetami nophen 5-325 mg tablet Discontinued 1 {tbl} PO EVERY 6 HOURS NEEDED as needed for Pain 12 3 0 September 19, 2023 September 28, 2023 3:48pm Sprain of left knee Sprain of unspecified site of left knee, initial encounter Start: 09-19-2023 End: 09-28-2023 take 1 tablet by mouth every six hours as needed Hydrocodone-Acetaminophen Discontinued 1 TABLET PO EVERY 6 HOURS NEEDED 12 3 September 19, 2023 September 28, 2023 3:48pm amitriptyline hydrochloride 25 mg oral tablet (9 sources) Tricyclic Antidepressant Start: 07-15-2024 End: 10-13-2024 take 1 tablet by mouth once daily at bedtime amitriptyline (ELAVIL) 25 mg tablet Indications: Mood disorder (HCC) , PTSD (post-traumatic stress disorder) Take 1 tablet by mouth daily at bedtime. 30 tablet 2 07/15/2024 08/23/2024 Discontinued ARIPiprazole 2 mg oral tablet (11 sources) Atypical Antipsychotic Start: 12-06-2021 End: 11-28-2022 ARIPiprazole (ABILIFY) 2 mg tablet atogepant (QULIPTA) 60 mg tablet (20 sources) Start: 01-16-2025 take 1 tablet by mouth once daily atogepant (QULIPTA) 60 mg tablet Indications: Intractable chronic migraine without aura and without status migrainosus Take 1 tablet (60 mg) by mouth once daily. 30 tablet 5 08/25/2024 Suspended Start: 08-25-2024 take 1 tablet by brady th once daily atogepant (QULIPTA) 60 mg tablet Indications: Intractable chronic migraine without aura and without status migrainosus Take 1 tablet (60 mg) by mouth once daily. 30 tablet 5 08/25/2024 Active Start: 11-19-2022 End: 06-19-2024 take 1 tablet by mouth once daily atogepant (QULIPTA) 60 mg tablet Take 1 tablet (60 mg) by mouth once daily. 30 tablet 5 11/19/2022 06/19/2024 Discontinued (Discontinued by Patient) Start: 11-19-2022 take 1 tablet by brady th once daily atogepant (QULIPTA) 60 mg tablet Take 1 tablet (60 mg) by mouth once daily. 30 tablet 5 11/19/2022 Active Start: 11-19-2022 take 1 tablet by brady th once daily atogepant (QULIPTA) 60 mg tablet Indications: Migraine without aura and without status migrainosus, not intractable Take 1 tablet (60 mg) by mouth once daily. 30 tablet 5 11/19/2022 Active Comment on above: Take 1 tablet (60 mg ) by mouth once daily. calcium chloride 0.0014 meq/ml / potassium chloride 0.004 meq/ml / sodium chloride 0.103 meq/ml / sodium lactate 0.028 meq/ml injectable solution (3 sources) Start: End: take 30 mL intravenously every hour 30 mL/hr, INTRAVENOUS, CONTINUOUS, Starting on Thu01/20/25 at 0800, Until Thu01/20/25 at 0845, Preprocedure Start: 10-04-2024 End: 10-05-2024 take 5-30 mL intravenously every hour 5-30 mL/hr, INTRAVENOUS, CONTINUOUS, Starting on Thu10/04/24 at 1100, Until Thu10/05/24 at 0302, Recovery or Phase I (only) cholecalciferol 1.25 mg oral capsule (20 sources) Vitamin D Start: 12-31-2022 End: 06-19-2024 take 1 capsule by mouth every week cholecalciferol, Vitamin D3, (VITAMIN D3) 1,250 mcg (50,000 unit) cap capsule Indications: Vitamin D deficiency Take 1 capsule by mouth one time a week for 12 doses. DO NOT REFILL 12 capsule 12/31/2022 06/19/2024 Discontinued (Erroneous entry) Start: 08-08-2021 End: 11-28-2022 take 1 capsule by mouth every week cholecalciferol, Vitamin D3, (VITAMIN D3) 1,250 mcg (50,000 unit) cap capsule Indications: Vitamin D insufficiency Take 1 capsule by mouth one time a week. 4 capsule 4 08/08/2021 11/28/2022 Discontinued (Course of therapy completed) Comment on above: Take 1 capsule by mo uth one time a week. Take 1 capsule by mo uth one time a week for 12 doses. DO NOT REFILL cyclobenzaprine hydrochloride 10 mg oral tablet (11 sources) Muscle Relaxant Start: 2023 End: 2023 take 1 tablet by mouth once daily at bedtime cyclobenzaprine (FLEXERIL) 10 mg tablet Indications: Acute bilateral low back pain with bilateral sciatica Take 1 tablet by mouth daily at bedtime. 9 tablet 08/24/2023 04/04/2024 Discontinued (Course of therapy completed) 1 ml diphenhydrAMINE hydrochloride 50 mg/ml injection (20 sources) Histamine-1 Receptor Antagonist Start: 2024 End: 2024 inject 50 mg by intramuscular injection every six hours as needed, then inject 200 mg by intramuscular injection once daily as needed diphenhydrAMINE (BENADRYL) 50 mg/mL injection Indications: Intractable chronic migraine without aura and without status migrainosus Inject 50 mg intramuscularly every 6 hours as needed (at migraine onset). Max 200mg per day. Max dispense 16 mL per month 16 mL 5 09/12/2024 10/12/2024 Start: 08-25-2024 End: 09-09-2024 inject 50 mg by intramuscular injection every six hours as needed diphenhydrAMINE (BENADRYL) 50 mg/mL injection Indications: Intractable chronic migraine without aura and without status migrainosus Inject 50 mg intramuscularly every 6 hours as needed (at migraine onset). 4 mL 5 08/25/2024 09/09/2024 Discontinued Start: 09-30-2021 End: 08-13-2022 inject 50 mg by intramuscular injection every six hours as needed diphenhydrAMINE (BENADRYL) 50 mg/mL injection Indications: Intractable chronic migraine without aura and without status migrainosus Inject 50 mg intramuscularly every 6 hours as needed (at migraine onset). 4 mL 5 09/30/2021 08/13/2022 Discontinued (Course of therapy completed) Comment on above: Inject 50 mg intramu scularly every 6 hours as needed (at migraine onset). ergocalciferol 1.25 mg oral capsule (20 sources) Provitamin D2 Compound Start: End: take 1 capsule by mouth every week ergocalciferol 50,000 unit capsule (VITAMIN D2, DRISDOL) Indications: Vitamin D deficiency Take 1 capsule by mouth one time a week. 12 capsule 12/12/2024 03/12/2025 Suspended 1 ml fentaNYL 0.05 mg/ml injection (2 sources) Opioid Agonist Start: End: 50 mcg, INTRAVENOUS, EVERY 10 MINUTES NEEDED, 4 doses, Starting on Thu10/04/24 at 1032, Until Thu10/05/24 at 0302, Moderate Pain (4-6) - Parenteral, Severe Pain (>/=7) - Parenteral, FIRST LINE THERAPY, Every 10 minutes., Recovery or Phase I (only) Start: 10-04-2024 End: 10-04-2024 50 mcg, INTRAVENOUS, ONCE, 1 dose, On Thu10/04/24 at 0900, for block, Preprocedure FLUoxetine 40 mg oral capsule (20 sources) Serotonin Reuptake Inhibitor Start: 08-23-2024 End: 02-19-2025 take 1 capsule by mouth once daily FLUoxetine (PROZAC) 40 mg capsule Indications: Mood disorder , PTSD (post-traumatic stress disorder) Take 1 capsule by mouth once daily. 90 capsule 1 08/23/2024 Suspended Start: 07-15-2024 End: 01-11-2025 take 1 capsule by mouth once daily FLUoxetine (PROZAC) 20 mg capsule Indications: Mood disorder (HCC) , PTSD (post-traumatic stress disorder) Take 1 capsule by mouth once daily. 90 capsule 1 07/15/2024 08/23/2024 Discontinued Start: 06-22-2024 End: 12-19-2024 take 1 capsule by mouth once daily FLUoxetine (PROZAC) 10 mg capsule Take 1 capsule by mouth once daily. 90 capsule 1 06/22/2024 07/15/2024 Discontinued FREMANEZUMAB-VFRM (1 source) Start: 03-08-2019 AJOVY 225 MG/1.5ML SOSY give injection to self 1 x month FREMANEZUMAB-VFRM [id number] Alberto Matamoros MD 2 ml ketorolac tromethamine 30 mg/ml injection (2 sources) Nonsteroidal Anti-inflammatory Drug, Cyclooxygenase Inhibitor Start: 09-25-2022 End: 09-25-2022 keTORolac 60 mg injection (TORADOL) Start: 05-06-2022 End: 05-06-2022 keTORolac 60 mg injection (T ORADOL) lamoTRIgine 100 mg oral tablet (20 sources) Mood Stabilizer, Anti-epileptic Agent Start: 08-10-2024 End: 02-21-2025 take 1 tablet by mouth twice daily lamoTRIgine (LAMICTAL) 100 mg tablet Take 1 tablet by mouth two times a day. To start on or after 08/10/2024, after completing titration schedule. 180 tablet 1 08/25/2024 Suspended Start: 06-22-2024 End: 08-25-2024 lamoTRIgine (LAMICTAL) 25 mg tablet Week 1: 1 tablet in the PM only; Week 2: 1 tablet twice daily; Week 3: 1 tablet in the AM, 2 tablets in the PM; Week 4: 2 tablets twice daily; Week 5: 2 tablets in the AM, 3 tablets in the PM; Week 6: 3 tablets twice daily; Week 7: 3 tablets in the AM, 4 tablets in the PM; Week 8: 4 tablets twice daily. Then start new RX for 100mg tablets. 252 tablet 06/22/2024 08/25/2024 Discontinued Start: 05-25-2024 End: 11-21-2024 take 2 tablets by mouth once daily in the evening LAMICTAL XR 200 mg 24 hr tablet Indications: Seizure (HCC) Take 2 tablets by mouth every evening. 180 tablet 1 05/25/2024 06/19/2024 Discontinued Start: 12-31-2022 End: 06-29-2023 take 2 tablets by mouth once daily in the evening LAMICTAL XR 200 mg 24 hr tablet Indications: Seizure (HCC) Take 2 tablets by mouth every evening. 180 tablet 1 12/31/2022 Active Start: 12-31-2022 End: 04-04-2024 take 1 tablet by mouth once daily in the morning LAMICTAL XR 300 mg 24 hr tablet Indications: Seizure (HCC) Take 1 tablet by mouth every morning. 90 tablet 1 12/31/2022 04/04/2024 Discontinued (Dosage adjustment) Start: 08-11-2022 End: 02-07-2023 take 2 tablets by mouth twice daily LAMICTAL XR 200 mg 24 hr tablet Indications: Seizure (HCC) Take 2 tablets by mouth twice daily. 360 tablet 1 08/11/2022 12/31/2022 Discontinued Start: 09-10-2021 End: 12-09-2021 take 2 tablets by mouth twice daily LAMICTAL XR 200 mg 24 hr tablet Indications: Seizure (HCC) Take 2 tablets by mouth twice daily. 360 tablet 3 09/10/2021 Active Start: 03-18-2021 take 1 tablet by brady th three times daily Lamotrigine 200 mg tablet extended release 24hr Active 200 mg PO THREE TIMES A DAY March 18, 2021 12:00am Start: 03-08-2019 take 1 tablet by brady th once daily LAMICTAL XR 200 MG [id number] take as directed by mouth 1800mg per day LAMOTRIGINE [id number] Alberto Matamoros MD Start: 12-16-2016 LAMICTAL XR XR 24H-TAB as directed LAMOTRIGINE [id number] Deja Sexton LPN Start: 03-09-2014 take 2 tablets by mo uth three times daily LaMICtal XR 200 mg oral tablet, extended release 2 tab(s), Oral, TID, 0 Refill(s) Start Date: 03/09/14 Status: Ordered Start: 06-06-2013 End: 03-18-2021 take 3 tablets by mouth three times daily Lamotrigine 200 MG tablet Discontinued 600 mg PO THREE TIMES A DAY June 06, 2013 12:00am March 18, 2021 8:06am EPILEPSY Start: 06-06-2013 End: 03-18-2021 take 600 mg by mouth three times daily Lamotrigine Discontinued 600 MG PO THREE TIMES A DAY June 06, 2013 12:00am March 18, 2021 8:06am Comment on above: Take 2 tablets by mo [facility] twice daily. Take 1 tablet by brady every morning. Take 2 tablets by mo [facility] every evening. levothyroxine sodium 0.088 mg oral tablet (20 sources) l-Thyroxine Start: take 1 tablet by mouth once daily levothyroxine (SYNTHROID) 88 mcg tablet Indications: Hypothyroidism, unspecified type Take 1 tablet by mouth once daily. 90 tablet 1 12/12/2024 Suspended Start: 06-22-2024 End: 12-12-2024 take 1 tablet by mouth once daily before breakfast levothyroxine (SYNTHROID) 75 mcg tablet Take 1 tablet by mouth daily before breakfast. 90 tablet 06/22/2024 12/12/2024 Discontinued Start: 12-05-2021 End: 04-04-2024 take 1 tablet by mouth once daily for thyroid dysfunction levothyroxine (SYNTHROID) 75 mcg tablet Indications: Hypothyroidism, acquired Take 1 tablet by mouth once daily. Take on empty stomach. For Thyroid 30 tablet 5 12/05/2021 04/04/2024 Discontinued (Discontinued by another Health Care Provider) Start: 08-08-2021 End: 12-05-2021 take 1 tablet by mouth once daily for thyroid dysfunction levothyroxine (SYNTHROID) 50 mcg tablet Indications: Hypothyroidism, acquired Take 1 tablet by mouth once daily. Take on empty stomach. For Thyroid. 30 tablet 3 08/08/2021 12/05/2021 Discontinued Comment on above: Take 1 tablet by brady once daily. Take on empty stomach. For Thyroid. Take 1 tablet by brady once daily. Take on empty stomach. For Thyroid lidocaine hydrochloride 0.02 mg/mg topical gel (20 sources) Antiarrhythmic, Amide Local Anesthetic Start: 10-26-2024 End: 10-26-2024 lidocaine 4 % (40 mg/mL) 5 mL (XYLOCAINE) Start: 10-26-2024 End: 10-26-2024 5 mL, MUCOUS MEMBRANE (TOPIC AL MOUTH & THROAT), ONCE, 1 dose, On Thu10/26/24 at 1130 Start: 10-26-2024 End: 10-26-2024 lidocaine urojet 2 % 6 mL to pical gel (GLYDO) Start: 10-26-2024 End: 10-26-2024 apply 1 dose topically once 6 mL, TOPICAL, ONCE, 1 dos e, On Thu10/26/24 at 1130, Bilateral nares Start: 02-27-2022 End: 04-04-2024 lidocaine (XYLOCAINE) 5 % oi ntment Indications: Disturbance of skin sensation , Arthritis of carpometacarpal (CMC) joint of right thumb Apply to affected area three times daily. 60 g 3 02/27/2022 04/04/2024 Discontinued (Course of therapy completed) Comment on above: Apply to affected ar ea three times daily. methylPREDNISolone (5 sources) Corticosteroid Start: 08-19-2024 End: 08-25-2024 methylPREDNISolone (MEDROL, FRED,) 4 mg Dose-Pack Take as directed/ indicated on box 21 tablet 08/19/2024 08/25/2024 Discontinued (Course of therapy completed) Start: 04-05-2021 End: 04-05-2021 Depo-Medrol (methylprednisol one acetate) 40 mg/mL suspension for injection Discontinued 20 MG INTRAARTIC ONCE 0.5 April 05, 2021 12:16pm April 05, 2021 12:53pm 5 ml midazolam 1 mg/ml injection (1 source) Benzodiazepine Start: 10-04-2024 End: 10-04-2024 2 mg, INTRAVENOUS, ONCE, 1 dose, On Thu10/04/24 at 0830, midazolam for block, Preprocedure Start: 10-04-2024 End: 10-04-2024 2 mg, INTRAVENOUS, ONCE, 1 d ose, On Thu10/04/24 at 0830, midazolam for block, Preprocedure mirtazapine 7.5 mg oral tablet (20 sources) Start: 08-23-2024 End: 06-04-2025 take 1 tablet by mouth once daily at bedtime Mirtazapine (REMERON) 7.5 mg tablet Indications: Mood disorder Take 1 tablet by mouth daily at bedtime. 90 tablet 1 12/06/2024 06/04/2025 Suspended naproxen 500 mg oral tablet (12 sources) Nonsteroidal Anti-inflammatory Drug Start: 04-24-2019 End: 09-13-2019 take 1 tablet by mouth twice daily Naproxen 500 MG tablet Discontinued 500 mg PO TWICE A DAY April 24, 2019 12:00am September 13, 2019 2:42pm ondansetron 4 mg disintegrating oral tablet (12 sources) Serotonin-3 Receptor Antagonist Start: 04-24-2019 End: 09-13-2019 take 1 tablet by mouth every eight hours as needed for nausea Ondansetron 4 MG tablet Discontinued 4 mg PO EVERY 8 HOURS NEEDED as needed for Nausea April 24, 2019 12:00am September 13, 2019 2:42pm pantoprazole 20 mg delayed release oral tablet (20 sources) Proton Pump Inhibitor Start: 12-06-2024 take 1 tablet by mouth once daily before breakfast pantoprazole DR (PROTONIX) 20 mg tablet Indications: Generalized abdominal pain Take 1 tablet by mouth daily before breakfast. 90 tablet 12/06/2024 Suspended predniSONE 10 mg oral tablet (3 sources) Start: 05-06-2022 End: 08-13-2022 predniSONE (DELTASONE) 10 mg tablet Take 4 tabs daily for 3 days, then 2 tabs daily for 3 days, then 1 tab daily for 3 days with food. 21 tablet 0 05/06/2022 08/13/2022 Discontinued (Course of therapy completed) Comment on above: Take 4 tabs daily fo r 3 days, then 2 tabs daily for 3 days, then 1 tab daily for 3 days with food. pregabalin 50 mg oral capsule (17 sources) Start: 02-20-2025 End: 05-21-2025 take 1 capsule by mouth three times daily pregabalin (LYRICA) 50 mg capsule Indications: Chronic pain of left knee Take 1 capsule by mouth three times a day for 90 days. 90 capsule 2 02/20/2025 05/21/2025 Suspended Start: 01-10-2025 End: 02-20-2025 take 1 capsule by mouth three times daily pregabalin (LYRICA) 25 mg capsule Indications: Chronic pain of left knee Take 1 capsule by mouth three times a day for 30 days. 90 capsule 01/10/2025 02/20/2025 Discontinued 72 hr scopolamine 0.0139 mg/hr transdermal system (1 source) Anticholinergic Start: 10-04-2024 End: 10-05-2024 1 Patch, TRANSDERMAL, Administer over 24 Hours, ONCE, 1 dose, On Thu10/04/24 at 0830, Apply patch behind ear. Each time a new patch is needed it should be placed behind the alternate ear from the previous patch. Remove old patch. Each transdermal system contains 1.5 mg scopolamine base and delivers 1 mg over 3 days., Preprocedure Syringe with Needle, Disp, 3 mL 23 x 1 (20 sources) Start: 08-30-2024 Syringe with N eedle, Disp, 3 mL 23 x 1 Indications: Intractable chronic migraine without aura and without status migrainosus 1 Each as directed. 4 Each 08/30/2024 Suspended Start: 08-30-2024 Syringe with N eedle, Disp, 3 mL 23 x 1 Indications: Intractable chronic migraine without aura and without status migrainosus 1 Each as directed. 4 Each 08/30/2024 Active Start: 08-25-2024 End: 08-29-2024 Syringe with Needle, Disp, 3 mL 23 x 1 Indications: Intractable chronic migraine without aura and without status migrainosus 1 Each as directed. 4 Each 08/25/2024 08/29/2024 Discontinued Start: 08-25-2024 Syringe with N eedle, Disp, 3 mL 23 x 1 Indications: Intractable chronic migraine without aura and without status migrainosus 1 Each as directed. 4 Each 08/25/2024 Active Start: 09-30-2021 End: 08-13-2022 Syringe with Needle, Disp, 3 mL 23 x 1 Indications: Intractable chronic migraine without aura and without status migrainosus 1 Each as needed. 4 Each 09/30/2021 08/13/2022 Discontinued (Course of therapy completed) Start: 09-30-2021 Syringe with N eedle, Disp, 3 mL 23 x 1 Indications: Intractable chronic migraine without aura and without status migrainosus 1 Each as needed. 4 Each 09/30/2021 Active Comment on above: 1 Each as needed. triamcinolone acetonide 0.25 mg/ml topical cream (15 sources) Corticosteroid Start: 08-24-2023 End: 04-04-2024 triamcinolone (KENALOG) 0.025 % cream Indications: Rash Apply 1 application to affected area two times a day. 30 g 08/24/2023 04/04/2024 Discontinued (Discontinued by another Health Care Provider) Start: 10-21-2019 End: 10-21-2019 Kenalog (triamcinolone aceto nide) 40 mg/mL suspension for injection Discontinued 40 MG INTRAARTIC ONCE 1 October 21, 2019 8:03am October 21, 2019 8:47am Start: 10-04-2019 End: 10-04-2019 Kenalog (triamcinolone aceto nide) 40 mg/mL suspension for injection Discontinued 20 MG INTRAARTIC ONCE 0.5 October 04, 2019 2:04pm October 04, 2019 3:00pm VERAPAMIL HCL TABS (1 source) Calcium Channel Lyndsey Start: 12-16-2016 VERAPAMIL HCL TABS as directed VERAPAMIL HCL TABS [id number] Deja Sexton LPN zonisamide 100 mg oral capsule (20 sources) Anti-epileptic Agent Start: 05-25-2024 End: 11-21-2024 take 2 capsules by mouth once daily in the evening zonisamide (ZONEGRAN) 100 mg capsule Indications: Seizure (HCC) Take 2 capsules by mouth every evening. 180 capsule 1 05/25/2024 06/22/2024 Discontinued Start: 03-25-2023 End: 09-21-2023 take 2 capsules by mouth once daily in the evening zonisamide (ZONEGRAN) 100 mg capsule Indications: Seizure (HCC) Take 2 capsules by mouth every evening. 180 capsule 1 03/25/2023 Active Start: 12-31-2022 End: 06-29-2023 take 1 capsule by mouth once daily in the morning, then take 4 capsules by mouth once daily in the evening zonisamide (ZONEGRAN) 100 mg capsule Indications: Seizure (HCC) Take 1 capsule by mouth every morning AND 4 capsules every evening. 150 capsule 5 12/31/2022 01/06/2023 Discontinued Start: 11-28-2022 End: 05-27-2023 take 4 capsules by mouth once daily zonisamide (ZONEGRAN) 100 mg capsule Indications: Seizure (HCC) Take 4 capsules by mouth once daily. 120 capsule 5 11/28/2022 12/31/2022 Discontinued Start: 08-13-2022 End: 11-28-2022 take 4 capsules by mouth twice daily zonisamide (ZONEGRAN) 50 mg capsule Indications: Seizure (HCC) Take 4 capsules by mouth twice daily. 240 capsule 1 08/13/2022 11/28/2022 Discontinued Start: 08-11-2022 End: 08-13-2022 zonisamide (ZONEGRAN) 100 mg capsule Indications: Seizure (HCC) Take two pills twice a day(400mg) 360 capsule 1 08/11/2022 08/13/2022 Discontinued Start: 09-10-2021 End: 08-10-2022 zonisamide (ZONEGRAN) 100 mg capsule Indications: Seizure (HCC) Take three pills(300mg) at bedtime for 2 weeks. Then increase to two pills twice a day(400mg) 360 capsule 3 09/10/2021 08/10/2022 Discontinued Comment on above: Take three pills(300 mg) at bedtime for 2 weeks. Then increase to two pills twice a day(400mg) Take two pills twice a day(400mg) Take 4 capsules by m outh twice daily. Take 4 capsules by m outh once daily. Take 1 capsule by mo uth every morning AND 4 capsules every evening. Take 2 capsules by m outh every evening. Problems Active Problems Problem Classification Problem Date Documented Da te Episodic/Chronic Abdominal pain (20 sources) Right flank pain; Translations: [Unspecified abdominal pain] Onset: 9 Resolved: 8 12-24-2017 Episodic Acquired foot deformities (2 sources) Hallux valgus 05-25-2018 Chronic Administrative/social admission (7 sources) Feigning of symptoms; Translations: [Malingerer [conscious simulation]] 10-12-2023 Episodic Anxiety disorders (19 sources) Generalized anxiety disorder; Translations: [Generalized anxiety disorder] Onset: 5 01-10-2025 Chronic Asthma (20 sources) Asthma; Translations: [Unspecified asthma, uncomplicated] Onset: 7 01-05-2018 Chronic Cardiac dysrhythmias (1 source) Palpitations; Translations: [Palpitations] Episodic Delirium, dementia, and amnestic and other cognitive disorders (12 sources) Postconcussion syndrome; Translations: [Postconcussional syndrome] 05-04-2019 Chronic E Codes: Fall (9 sources) Fall; Translations: [Unspecified fall, initial encounter] 01-12-2023 Episodic Ectopic (2 sources) Tubal 05-02-2015 Episodic Epilepsy; convulsions (3 sources) Seizure disorder; Translations: [Epilepsy, unspecified, not intractable, without status epilepticus] Chronic Essential hypertension (20 sources) Essential hypertension; Translations: [Essential (primary) hypertension] Onset: 8 01-01-2018 Chronic Gastrointestinal hemorrhage (6 sources) Gastrointestinal hemorrhage; Translations: [Hemorrhage of anus and rectum] Onset: 5 12-07-2024 Episodic Headache; including migraine (20 sources) Migraine; Translations: [Migraine, unspecified, not intractable, without status migrainosus] Onset: 3 02-01-2013 Chronic Headache; including migraine (1 source) Medication overuse headache; Translations: [Drug-induced headache, not elsewhere classified, not intractable] Episodic Heart valve disorders (20 sources) Non-rheumatic mitral valve prolapse; Translations: [Nonrheumatic mitral (valve) prolapse] Onset: 7 12-24-2017 Chronic Immunizations and screening for infectious disease (16 sources) Contact with or exposure to other viral diseases; Translations: [Exposure to COVID-19 virus] Onset: 5 Episodic Intracranial injury (20 sources) History of concussion injury of brain; Translations: [Personal history of traumatic brain injury] Onset: 5 05-03-2019 Episodic Joint disorders and dislocations; trauma-related (2 sources) Chondromalacia of left patella; Translations: [Chondromalacia patellae, left knee] Onset: 4 03-30-2024 Chronic Malaise and fatigue (10 sources) Fatigue; Translations: [Other fatigue] 04-04-2022 Episodic Menopausal disorders (1 source) Menopausal and female climacteric states; Translations: [Vasomotor symptoms due to menopause] Onset: 5 Chronic Miscellaneous mental health disorders (20 sources) Dissociative convulsions; Translations: [Conversion disorder with seizures or convulsions] Onset: 4 06-20-2024 Chronic Mood disorders (20 sources) Depressive disorder; Translations: [Depression] Onset: 8 01-01-2018 Chronic Mood disorders (1 source) Mood disorders; Translations: [Depression, unspecified depression type] Onset: 4 Neoplasms of unspecified nature or uncertain behavior (2 sources) Intracranial tumor 07-08-2014 Chronic Nonspecific chest pain (1 source) Chest pain; Translations: [Chest pain, unspecified] Episodic Nutritional deficiencies (5 sources) Vitamin D deficiency; Translations: [Vitamin D deficiency, unspecified] Onset: 5 12-31-2022 Chronic Open wounds of extremities (14 sources) Unspecified open wound of right thumb without damage to nail, initial encounter; Translations: [Laceration of thumb] Onset: 7 12-16-2016 Episodic Osteoarthritis (13 sources) Arthritis of first carpometacarpal joint of right hand; Translations: [Unilateral primary osteoarthritis of first carpometacarpal joint, right hand] Chronic Other aftercare (1 source) Other long term acute care registered nurse (current) drug therapy; Translations: [Medication management] Onset: 5 Episodic Other connective tissue disease (2 sources) Pain in right hand; Translations: [Pain in right hand] Episodic Other connective tissue disease (1 source) Peroneal tendinitis of right lower limb; Translations: [Peroneal tendinitis, right leg] 03-10-2023 Episodic Other connective tissue disease (2 sources) Foot pain 05-25-2018 Episodic Other connective tissue disease (1 source) Pain in left lower limb; Translations: [Pain in left leg] 02-10-2024 Episodic Other connective tissue disease (2 sources) Pain of left calf; Translations: [Pain in left lower leg] 04-21-2024 Episodic Other connective tissue disease (1 source) Swelling of left lower limb; Translations: [Other specified soft tissue disorders] 02-28-2025 Episodic Other gastrointestinal disorders (3 sources) Dysphagia; Translations: [Dysphagia, unspecified] 12-07-2024 Episodic Other gastrointestinal disorders (2 sources) Dysphagia, unspecified; Translations: [Dysphagia, unspecified type] Onset: 5 Episodic Other injuries and conditions due to external causes (12 sources) Avulsion of skin; Translations: [Other injury of unspecified body region, initial encounter] 11-16-2015 Episodic Other liver diseases (1 source) Alkaline phosphatase raised; Translations: [Abnormal levels of other serum enzymes] 12-06-2024 Episodic Other liver diseases (2 sources) Abnormal levels of other serum enzymes; Translations: [Elevated alkaline phosphatase level] Onset: 5 Episodic Other lower respiratory disease (12 sources) Dyspnea; Translations: [Dyspnea, unspecified] 03-31-2021 Episodic Other lower respiratory disease (3 sources) Hemoptysis; Translations: [Hemoptysis] 12-07-2024 Episodic Other lower respiratory disease (2 sources) Hemoptysis; Translations: [Coughing up blood] Onset: Episodic Other nervous system disorders (1 source) Chronic pain; Translations: [Other chronic pain] Chronic Other nervous system disorders (3 sources) Other chronic pain; Translations: [Other chronic pain] Onset: Chronic Other nervous system disorders (3 sources) Chronic pain syndrome; Translations: [Chronic pain syndrome] 01-10-2025 Chronic Other nervous system disorders (2 sources) Complex regional pain syndrome type I of left lower limb; Translations: [Complex regional pain syndrome I of left lower limb] 02-28-2025 Chronic Other nervous system disorders (1 source) Complex regional pain syndrome I of left lower limb; Translations: [Complex regional pain syndrome type 1 of left lower extremity] Onset: Chronic Other nervous system disorders (1 source) Chronic pain syndrome; Translations: [Chronic pain syndrome] Onset: 5 Chronic Other nervous system disorders (1 source) Numbness of hand; Translations: [Anesthesia of skin] Episodic Other nervous system disorders (1 source) Skin sensation disturbance; Translations: [Unspecified disturbances of skin sensation] Episodic Other nervous system disorders (1 source) Taste sense altered; Translations: [Parageusia] 02-27-2024 Episodic Other nervous system disorders (3 sources) Postoperative pain ; Translations: [Other acute postprocedural pain] 07-14-2024 Episodic Other non-traumatic joint disorders (20 sources) Arthrofibrosis of left knee; Translations: [Ankylosis, left knee] Onset: 5 05-19-2024 Chronic Other non-traumatic joint disorders (1 source) Ankylosis, left knee; Translations: [Arthrofibrosis of knee joint, left] Onset: Chronic Other non-traumatic joint disorders (11 sources) Pain in wrist; Translations: [Pain in right wrist] 12-23-2021 Episodic Other non-traumatic joint disorders (3 sources) Acute ankle pain; Translations: [Pain in right ankle and joints of right foot] 03-10-2023 Episodic Other nutritional; endocrine; and metabolic disorders (1 source) Obese class II; Translations: [Obesity, Class II, BMI 35-39.9] Onset: 5 03-06-2025 Chronic Other nutritional; endocrine; and metabolic disorders (2 sources) Body mass index 25-29 - overweight; Translations: [Overweight] 08-02-2024 Episodic Other screening for suspected conditions (not mental disorders or infectious disease) (20 sources) Patient encounter status; Translations: [Encounter for screening for malignant neoplasm of colon] Onset: 5 12-07-2024 Episodic Other upper respiratory infections (2 sources) Sore throat symptom; Translations: [Acute pharyngitis, unspecified] 04-28-2023 Episodic Residual codes; unclassified (2 sources) Insomnia 05-25-2018 Episodic Residual codes; unclassified (1 source) Chill; Translations: [Chills (without fever)] 02-27-2024 Episodic Residual codes; unclassified (3 sources) History of arthroscopy of knee joint; Translations: [Other specified postprocedural states] 04-27-2024 Episodic Spondylosis; intervertebral disc disorders; other back problems (2 sources) Degeneration of lumbar intervertebral disc; Translations: [Other intervertebral disc degeneration, lumbar region] Onset: 4 09-28-2023 Chronic Spondylosis; intervertebral disc disorders; other back problems (10 sources) Chronic neck pain; Translations: [Cervicalgia] Episodic Suicide and intentional self-inflicted injury (2 sources) Suicidal thoughts; Translations: [Suicidal ideations] Onset: 5 01-10-2025 Episodic Superficial injury; contusion (20 sources) Contusion of hand; Translations: [Contusion of left hand, initial encounter] 12-17-2020 Episodic Thyroid disorders (20 sources) Acquired hypothyroidism; Translations: [Hypothyroidism, unspecified] Onset: 4 Chronic Unclassified (11 sources) Transformed migraine; Translations: [Chronic migraine] 09-28-2020 Unclassified (12 sources) No history of clinical finding in subject; Translations: [No significant past medical history] 04-24-2019 Unclassified (4 sources) Chronic pain of left knee 09-28-2024 Unclassified (7 sources) Patient encounter status 12-08-2024 Unclassified (1 source) Left knee pain, unspecified chronicity 01-11-2025 Unclassified (1 source) Chronic migraine with aura without status migrainosus, not intractable; Translations: [Chronic migraine with aura without status migrainosus, not intractable] Onset: 4 Urinary tract infections (1 source) Urinary tract infectious disease; Translations: [Urinary tract infection, site not specified] 03-06-2025 Episodic Viral infection (1 source) Viral disease; Translations: [Viral infection, unspecified] Episodic Past or Other Problems Problem Classification Problem Date Documented Date Episodic/Chronic Calculus of urinary tract (20 sources) Kidney stone; Translations: [Calculus of kidney] Onset: 07-03-2006 Resolved: 12-26-2017 12-26-2017 Episodic Epilepsy; convulsions (20 sources) Seizure; Translations: [Unspecified convulsions] Onset: 02-01-2013 Resolved: 12-26-2017 06-02-2014 Episodic Genitourinary symptoms and ill-defined conditions (20 sources) Aaron hematuria; Translations: [Gross hematuria] Onset: 05-02-2009 Resolved: 12-24-2017 12-24-2017 Episodic Joint disorders and dislocations; trauma-related (20 sources) Tear of medial meniscus of knee; Translations: [Other tear of medial meniscus, current injury, left knee, initial encounter] Onset: 2024 10-15-2023 Episodic Other connective tissue disease (1 source) Pain in left lower leg; Translations: [Pain of left calf] Onset: 07-14-2024 Episodic Other diseases of bladder and urethra (20 sources) Overactive bladder; Translations: [Other neuromuscular dysfunction of bladder]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 Swelling SHELLFISH DERIVED 10/19/2018 10 - Anaphylaxis BENADRYL (DIPHENHYDRAMINE HCL) 07/01/2006 1 - Mental Status Change PHENERGAN (PROMETHAZINE HCL) 07/01/2006 1 - Mental Status Change ASPIRIN 09/24/2018 2 - Rash Date Reviewed: 12/07/2024 Reviewed by: Zhanna Shah APRN.SPOOL TENDER - Fully Assessed Reason for Visit: Patient Question [1473] Cmt: Diagnostic mammogram. Prescriptions as of 12/08/2024 - Mirtazapine (REMERON) 7.5 mg tablet Take 1 tablet by mouth daily at bedtime. - pantoprazole DR (PROTONIX) 20 mg tablet Take 1 tablet by mouth daily before breakfast. - Syringe with Needle, Disp, 3 mL 23 x 1 1 Each as directed. - lamoTRIgine (LAMICTAL) 100 mg tablet Take 1 tablet by mouth two times a day. To start on or after 08/10/2024, after completing titration schedule. - atogepant (QULIPTA) 60 mg tablet Take 1 tablet (60 mg) by mouth once daily. - FLUoxetine (PROZAC) 40 mg capsule Take 1 capsule by mouth once daily. - ergocalciferol 50,000 unit capsule (VITAMIN D2, DRISDOL) Take 1 capsule by mouth one time a week. - levothyroxine (SYNTHROID) 75 mcg tablet Take 1 tablet by mouth daily before breakfast. Problem List As Of Date 12/07/2024 Noted Resolved Calculus of kidney [N20.0] 07/03/2006 12/26/2017 Asthma [J45.909] 07/17/2007 Sprain of right ankle [S93.401A] 10/18/2007 Renal colic [N23] 01/21/2008 12/24/2017 Hydronephrosis [N13.30] [...] Essential hypertension [I10] 01/01/2018 Depression [F32.A] 01/01/2018 Chronic pain of left knee [M25.562, G89.29] 2024 Tear of medial meniscus of left knee, current [*2024 Seizure-like activity (HCC) [R56.9] 06/19/2024 Psychogenic nonepileptic seizure [F44.5] 06/20/2024 Mood disorder (HCC) [F39] 06/21/2024 Hypothyroidism [E03.9] 06/21/2024 Acute medial meniscus tear of left knee [S83.24*08/08/2024 Arthrofibrosis of knee joint, left [M24.662] 10/05/2024 Encounter Status:Closed by VERONIKA GUALLPA on 12/07/[address] [facility] Comprehensive metabolic 2000 panelOrdered By: Mali Orozco on 12-07-2024 Albumin [Mass/Vol] 4.4 g/dL 3.9 - 4.9 g/dL [facility] ALP [Catalytic activity/Vol] 105 U/L 34 - 123 U/L [facility] ALT [Catalytic activity/Vol] 21 U/L 7 - 38 U/L [facility] Anion gap [Moles/Vol] 11 mmol/L 8 - 15 mmol/L [facility] AST [Catalytic activity/Vol] 19 U/L 13 - 35 U/L [facility] Bilirubin [Mass/Vol] 0.5 mg/dL 0.2 - 1 .3 mg/dL [facility] Calcium [Mass/Vol] 10.1 mg/dL 8.5 - 10. 2 mg/dL [facility] Chloride [Moles/Vol] 101 mmol/L 98 - 10 7 mmol/L [facility] CO2 [Moles/Vol] 27 mmol/L 22 - 30 mmol/L [facility] Creatinine [Mass/Vol] 0.88 mg/dL 0.58 - 0.96 mg/dL [facility] GFR/1.73 sq M.predicted among non-blacks MDRD (S/P/Bld) [Vol rate/Area] 80 mL/min/{1.73_m2} - PINF [facility] Comment on above: Estimated Glomerular Filtration Rate (eGFR) is calculated using the 2020 CKD-EPI creatinine equation. This equation utilizes serum creatinine, sex, and age as parameters. The creatinine assay has traceable calibration to isotope dilution-mass spectrometry. Refer to KDIGO guidelines for clinical interpretation. In patients with unstable renal function, e.g. those with acute kidney injury, the eGFR may not accurately reflect actual GFR. Glucose [Mass/Vol] 95 mg/dL 74 - 99 mg/dL [facility] Comment on above: The [place] Diabete s Association (ADA) provides guidance for cutoff values for fasting glucose and random glucose. The ADA defines fasting as no caloric intake for at least 8 hours. Fasting plasma glucose results between 100 to 125 mg/dL indicate increased risk for diabetes (prediabetes). Fasting plasma glucose results greater than or equal to 126 mg/dL meet the criteria for diagnosis of diabetes. In the absence of unequivocal hyperglycemia, results should be confirmed by repeat testing. In a patient with classic symptoms of hyperglycemia or hyperglycemic crisis, random plasma glucose results greater than or equal to 200 mg/dL meet the criteria for diagnosis of diabetes. Reference: Standards of Medical Care in Diabetes 2016, [place] Diabetes Association. Diabetes Care. 2016.39(Suppl 1). Interpretation and review of laboratory results Normal [facility] Potassium [Moles/Vol] 4.5 mmol/L 3.7 - 5.1 mmol/L [facility] Protein [Mass/Vol] 7.9 g/dL 6.3 - 8.0 g/dL [facility] Sodium [Moles/Vol] 139 mmol/L 136 - 144 mmol/L [facility] Urea nitrogen [Mass/Vol] 21 mg/dL 7 - 21 mg/dL [facility] Comprehensive metabolic 2000 panelon 12-07-2024 Albumin [Mass/Vol] 4.4 g/dL Normal 3.9-4.9 [facility] Comment on above: Order Comment: Speci men Type: BLOOD SPECIMENOrdering Facility: [facility] Address: [address] [place] [address] Performed By: #### 2 4323-8 ####[facility] MILLTOWNCLIA [id number] [place] [address] [place] ALP [Catalytic activity/Vol] 105 U/L Normal 34-123 [facility] Comment on above: Order Comment: Speci men Type: BLOOD SPECIMENOrdering Facility: [facility] Address: [address] [place] [address] Performed By: #### 2 4323-8 ####[facility]CLIA [id number] [place] [address] [place] ALT [Catalytic activity/Vol] 21 U/L Normal 7-38 [facility] Comment on above: Order Comment: Speci men Type: BLOOD SPECIMENOrdering Facility: [facility] Address: [address] [place] [address] Performed By: #### 2 4323-8 ####[facility] [id number] [place] [address] [place] Anion gap [Moles/Vol] 11 mmol/L Normal 8-15 [facility] Comment on above: Order Comment: Speci men Type: BLOOD SPECIMENOrdering Facility: [facility] Address: [address] [place] [address] Performed By: #### 2 4323-8 ####[facility] FL[facility]AWNCLIA [id number] [place] [address] [place] AST [Catalytic activity/Vol] 19 U/L Normal 13-35 [facility] Comment on above: Order Comment: Speci men Type: BLOOD SPECIMENOrdering Facility: [facility] Address: [address] [place] [address] Performed By: #### 2 4323-8 ####[facility] ADAMNIKOALYLIA [id number] [place] [address] [place] Bilirubin [Mass/Vol] 0.5 mg/dL Normal 0.2-1.3 [facility] Comment on above: Order Comment: Speci men Type: BLOOD SPECIMENOrdering Facility: [facility] Address: [address] [place] [address] Performed By: #### 2 4323-8 ####[facility]ENTERCHARLESA [id number] [place] [address] [place] Calcium [Mass/Vol] 10.1 mg/dL Normal 8.5-10.2 [facility] Comment on above: Order Comment: Speci men Type: BLOOD SPECIMENOrdering Facility: [facility] Address: [address] [place] [address] Performed By: #### 2 4323-8 ####[facility]ENTERMANUEL [id number] [place] [address] [place] Chloride [Moles/Vol] 101 mmol/L Normal 98-107 [facility] Comment on above: Order Comment: Speci men Type: BLOOD SPECIMENOrdering Facility: [facility] Address: [address] [place] [address] Performed By: #### 2 4323-8 ####[facility]ERNCLIA [id number] [place] [address] [place] CO2 [Moles/Vol] 27 mmol/L Normal 22-30 [facility] Comment on above: Order Comment: Speci men Type: BLOOD SPECIMENOrdering Facility: [facility] Address: [address] [place] [address] Performed By: #### 2 4323-8 ####[facility]ERNCLIA [id number] [place] [address] [place] Creatinine [Mass/Vol] 0.88 mg/dL Normal 0.58-0.96 [facility] Comment on above: Order Comment: Speci men Type: BLOOD SPECIMENOrdering Facility: [facility] Address: [address] [place] [address] Performed By: #### 2 4323-8 ####[facility] [id number] [place] [address] [place] Creatinine and Glomerular filtration rate.predicted panel (S/P/Bld) 80 mL/min/1.73m??? Normal >=60 [facility] Comment on above: Order Comment: Cassandra cunningham Type: BLOOD SPECIMENOrdering Facility: [facility] Address: [address] [place] [address] Result Comment: Ninfa mated Glomerular Filtration Rate (eGFR) is calculated using the 2020 CKD-EPI creatinine equation. This equation utilizes serum creatinine, sex, and age as parameters. The creatinine assay has traceable calibration to isotope dilution-mass spectrometry. Refer to KDIGO guidelines for clinical interpretation. In patients with unstable renal function, e.g. those with acute kidney injury, the eGFR may not accurately reflect actual GFR. Performed By: #### 2 4323-8 ####[facility] HOSPITALLI [id number] [place] [address] [place] Glucose [Mass/Vol] 95 mg/dL Normal 74-99 [facility] Comment on above: Order Comment: Makedai octavio Type: BLOOD SPECIMENOrdering Facility: [facility] Address: [address] [place] [address] Result Comment: The [place] Diabetes Association (ADA) provides guidance for cutoff values for fasting glucose and random glucose. The ADA defines fasting as no caloric intake for at least 8 hours. Fasting plasma glucose results between 100 to 125 mg/dL indicate increased risk for diabetes (prediabetes).Fasting plasma glucose results greater than or equal to 126 mg/dL meet the criteria for diagnosis of diabetes. In the absence of unequivocal hyperglycemia, results should be confirmed by repeat testing. In a patient with classic symptoms of hyperglycemia or hyperglycemic crisis, random plasma glucose results greater than or equal to 200 mg/dL meet the criteria for diagnosis of diabetes.Reference: Standards of Medical Care in Diabetes 2016, [place] Diabetes Association. Diabetes Care. 2016.39(Suppl 1). Performed By: #### 2 4323-8 ####[facility] MILLTOWNCLIA [id number] [place] [address] [place] Potassium [Moles/Vol] 4.5 mmol/L Normal 3.7-5.1 [facility] Comment on above: Order Comment: Speci men Type: BLOOD SPECIMENOrdering Facility: [facility] Address: [address] [place] [address] Performed By: #### 2 4323-8 ####[facility] FLORIDAWSCLIA [id number] [place] [address] [place] Protein [Mass/Vol] 7.9 g/dL Normal 6.3-8.0 [facility] Comment on above: Order Comment: Makedai octavio Type: BLOOD SPECIMENOrdering Facility: [facility] Address: [address] [place] [address] Performed By: #### 2 4323-8 ####[facility] HOSPITALLIA [id number] [place] [address] [place] Sodium [Moles/Vol] 139 mmol/L Normal 136-144 [facility] Comment on above: Order Comment: Speci men Type: BLOOD SPECIMENOrdering Facility: [facility] Address: [address] [place] [address] Performed By: #### 2 4323-8 ####[facility]ENTERNCLIA [id number] [place] [address] [place] Urea nitrogen [Mass/Vol] 21 mg/dL Normal 7-21 [facility] Comment on above: Order Comment: Speci men Type: BLOOD SPECIMENOrdering Facility: [facility] Address: [address] [place] [address] Performed By: #### 2 4323-8 ####[facility] [id number] [place] [address] [place] GGTon 12-07-2024 Gamma glutamyl transferase [Catalytic activity/Vol] 27 U/L 6 - 46 U/L [facility] GGT SerPl-cCncon 12-07-2024 Gamma glutamyl transferase [Catalytic activity/Vol] 27 U/L Normal 6-46 [facility] Comment on above: Order Comment: Speci men Type: BLOOD SPECIMENOrdering Facility: [facility] Address: [address] [place] [address] Performed By: #### 2 4331-1 ####[facility] LABCLIA [id number] [place] [address] [place] [facility] [id number] [place] [address] [place]#### TSH, 3024-7, 2324-2 ####[facility] LABCLIA [id number] [place] [address] [place] Gamma glutamyl transferase [ Catalytic activity/Vol]on 12-07-2024 Interpretation and review of laboratory results Normal [facility] HCV Ab Ql (S)on 12-07-2024 Interpretation and review of laboratory results Normal [facility] HCV Ab Ser Qlon 12-07-2024 HCV Ab Ql (S) Negative Normal Negative [facility] Comment on above: Order Comment: Speci men Type: BLOOD SPECIMENOrdering Facility: [facility] Address: [address] [place] [address] Result Comment: The result suggests no evidence of infection with Hepatitis C virus. Should recent infection be suspected, repeat testing may be considered 4-6 weeks after this draw. Performed By: #### 1 6128-1 ####[facility] LABCLIA [id number] [place] [address] [place] HEPATITIS C ANTIBODY IA WITH CONFIRMATIONon 12-07-2024 HCV Ab Ql (S) Negative Negative [facility] Comment on above: The result suggests no evidence of infection with Hepatitis C virus. Should recent infection be suspected, repeat testing may be considered 4-6 weeks after this draw. HIV 1+2 Ab IA Qlon HIV 1 and 2 Ab IA.rapid Nom (S/P/Bld) [facility] Comment on above: Test not indicated. HIV 1+2 Ab+HIV1 p24 Ag IA Ql Non-Reactive Nonreactive [facility] HIV immunoassay testing algorithm interpretation (S/P/Bld) [Interp] [facility] Comment on above: No evidence of HIV-1 or HIV-2 infection. Should recent infection be suspected, repeat testing may be considered 2-3 weeks after this draw. [place] Rev. Code 3701.243(E): This information has been disclosed to you from confidential records protected from disclosure by state law. You shall make no further disclosure of this information without the specific, written, and informed release of the individual to whom it pertains or as otherwise permitted by state law. A general authorization for the release of medical or other information is not sufficient for the purpose of the release of HIV test results or diagnoses. [facility] HIV 1 and 2 Ab IA.rapid Nom (S/P/Bld) Normal [facility] Comment on above: Order Comment: Speci men Type: BLOOD SPECIMENOrdering Facility: [facility] Address: [address] [place] [address] Result Comment: Test not indicated. Performed By: #### 3 1201-7 ####[facility] LABIA [id number] [place] [address] [place] HIV 1+2 Ab+HIV1 p24 Ag IA Ql Non-Reactive Normal Nonreactive [facility] Comment on above: Order Comment: Speci men Type: BLOOD SPECIMENOrdering Facility: [facility] Address: [address] [place] [address] Performed By: #### 3 1201-7 ####[facility] [id number] [place] [address] [place] HIV immunoassay testing algorithm interpretation (S/P/Bld) [Interp] Normal [facility] Comment on above: Order Comment: Speci men Type: BLOOD SPECIMENOrdering Facility: [facility] Address: [address] [place] [address] [place] [address] Result Comment: No e vidence of HIV-1 or HIV-2 infection. Should recent infection be suspected, repeat testing may be considered 2-3 weeks after this draw.[place] Rev. Code 3701.243(E): This information has been disclosed to you from confidential records protected from disclosure by state law. You shall make no further disclosure of this information without the specific, written, and informed release of the individual to whom it pertains or as otherwise permitted by state law. A general authorization for the release of medical or other information is not sufficient for the purpose of the release of HIV test results or diagnoses. Performed By: #### 3 1201-7 ####[facility] LABIA [id number] [place] [id number] [place] Lipid 1996 panelon 5 Cholesterol [Mass/Vol] 235 mg/dL High NINF - 200 mg/dL [facility] Comment on above: <200 mg/dL, Desirabl e 200-239 mg/dL, Borderline high >239 mg/dL, High Cholesterol in HDL [Mass/Vol] 52 mg/dL 39 - PINF mg/dL [facility] Comment on above: 40-59 mg/dL, Accepta ble >59 mg/dL, High: Negative risk factor for coronary heart disease <40 mg/dL, Low: Positive risk factor for coronary heart disease Cholesterol in LDL [Mass/Vol] 168 mg/dL High NINF - 100 mg/dL [facility] Comment on above: <100 mg/dL, Optimal 100-129 mg/dL, Near optimal/above optimal 130-159 mg/dL, Borderline high 160-189 mg/dL, High >189 mg/dL, Very high Secondary prevention optimal LDL Cholesterol levels are recommended to be <70 mg/dL LDL cholesterol is calculated using the Mccabe-NIH equation. Cholesterol in LDL/Cholesterol in HDL [Mass ratio] 3.23 {ratio} High NINF - 2.54 [facility] Comment on above: Reference: 1. National Cholesterol Education Program ATP III Guideline At-A-Glance Quick Desk Reference: National Heart, Lung, and Blood [place]. National Institutes of Health. 2001: NIH Publication No. 01-3305. 2. An International Atherosclerosis Society position paper: global recommendations for the management of dyslipidemia: executive summary, Atherosclerosis. 2014: 232(2):410-413. Cholesterol in VLDL [Mass/Vol] 17 mg/dL NINF - 30 mg/dL [facility] Cholesterol non HDL [Mass/Vol] 183 mg/dL High NINF - 130 mg/dL [facility] Comment on above: <130 mg/dL, Optimal 130-159 mg/dL, Near optimal/above optimal 160-189 mg/dL, Borderline high 190-219 mg/dL, High >219 mg/dL, Very high Secondary prevention optimal non HDL Cholesterol levels are recommended to be <100 mg/dL Cholesterol.total/Chol esterol in HDL [Mass ratio] 4.52 {ratio} NINF - 5.10 [facility] Fasting Time 12 hrs [facility] Interpretation and review of laboratory results Abnormal [facility] Triglyceride [Mass/Vol] 86 mg/dL NINF - 150 mg/dL [facility] Comment on above: <150 mg/dL, Normal 150-199 mg/dL, Borderline high 200-499 mg/dL, High >499 mg/dL, Very high Cholesterol [Mass/Vol] 235 mg/dL High <200 [facility] Comment on above: Order Comment: Speci men Type: BLOOD SPECIMENOrdering Facility: [facility] Address: [address] [place] [address] Result Comment: <200 mg/dL, Desirable 200-239 mg/dL, Borderline high>239 mg/dL, High Performed By: #### 2 4331-1 ####[facility] LABCLIA [id number] [place] [address] [place] [facility] [id number] [place] [address] [place]#### TSHRF, 3024-7, 2324-2 ####[facility] LABCLIA [id number] [address] [address] [place] Cholesterol in HDL [Mass/Vol] 52 mg/dL Normal >39 [facility] Comment on above: Order Comment: Speci men Type: BLOOD SPECIMENOrdering Facility: [facility] Address: [address] [place] [address] Result Comment: 40-5 9 mg/dL, Acceptable>59 mg/dL, High: Negative risk factor for coronary heart disease<40 mg/dL, Low: Positive risk factor for coronary heart disease Performed By: #### 2 4331-1 ####[facility] LABCLIA [id number] [place] [id number] [place] [id number] [place] [address] [place]#### DILEEP, 3023-, 2323-09 ####[facility] LABIA [id number] [address] [address] [place] Cholesterol in LDL [Mass/Vol] 168 mg/dL High <100 [facility] Comment on above: Order Comment: Speci men Type: BLOOD SPECIMENOrdering Facility: [facility] Address: [address] [place] [address] Result Comment: <100 mg/dL, Optimal 100-129 mg/dL, Near optimal/above optimal 130-159 mg/dL, Borderline high 160-189 mg/dL, High>189 mg/dL, Very highSecondary prevention optimal LDL Cholesterol levels are recommended to be <70 mg/dLLDL cholesterol is calculated using the Mccabe-NIH equation. Performed By: #### 2 4331-1 ####[facility] LABIA [id number] [address] [address] [facility] [id number] [place] [address] [place]#### TSHRF, 3024-02, 2323-09 ####[facility] LABCLIA [id number] [place] [id number] [place] Cholesterol in LDL/Cholesterol in HDL [Mass ratio] 3.23 {ratio} High <2.54 [facility] Comment on above: Order Comment: Speci men Type: BLOOD SPECIMENOrdering Facility: [facility] Address: [address] [place] [address] Result Comment: Refe matthiasce:1. National Cholesterol Education Program ATP III Guideline At-A-Glance Quick Desk Reference: National Heart, Lung, and Blood [place]. National Institutes of Health. 2001: NIH Publication No. 01-3305.2. An International Atherosclerosis Society position paper: global recommendations for the management of dyslipidemia: executive summary, Atherosclerosis. 2014: 232(2):410-413. Performed By: #### 2 4331-1 ####[facility] LABCLIA [id number] [place] [id number] [place] [facility] [id number] [place] [address] [place]#### DILEEP, 3024-02, 2323-09 ####[facility] LABCLIA [id number] [place] [id number] [place] Cholesterol in VLDL [Mass/Vol] 17 mg/dL Normal <30 [facility] Comment on above: Order Comment: Speci men Type: BLOOD SPECIMENOrdering Facility: [facility] Address: [address] [place] [address] Performed By: #### 2 4331-1 ####[facility] LABCLIA [id number] [place] [id number] [place] [facility] [id number] [place] [address] [place]#### DILEEP, 3024-02, 2323-09 ####[facility] LABCLIA [id number] [address] [place] [address] [place] Cholesterol non HDL [Mass/Vol] 183 mg/dL High <130 [facility] Comment on above: Order Comment: Speci men Type: BLOOD SPECIMENOrdering Facility: [facility] Address: [address] [place], [place] [address] Result Comment: <130 mg/dL, Optimal 130-159 mg/dL, Near optimal/above optimal 160-189 mg/dL, Borderline high 190-219 mg/dL, High>219 mg/dL, Very highSecondary prevention optimal non HDL Cholesterol levels are recommended to be <100 mg/dL Performed By: #### 2 4331-1 ####[facility] LABCLIA [id number] [address] [place] [address] [place] [id number] [place] [address] [place]#### TSHSUE, 3024-02, 2323-09 ####[facility] LABCLIA [id number] [address] [place] [address] [place] Cholesterol.total/Chol esterol in HDL [Mass ratio] 4.52 {ratio} Normal <5.10 [facility] Comment on above: Order Comment: Speci men Type: BLOOD SPECIMENOrdering Facility: [facility] Address: [address] [place] [address] Performed By: #### 2 4331-1 ####[facility] LABCLIA [id number] [address] [place] [address] [place] [id number] [place] [address] [place]#### TSHRF, 3024-02, 2323-09 ####[facility] LABCLIA [id number] [address] [place] [address] [place] FASTING TIME 12 hrs Normal [facility] Comment on above: Order Comment: Speci men Type: BLOOD SPECIMENOrdering Facility: [facility] Address: [address] [place] [address] Performed By: #### 2 4331-1 ####[facility] LABCLIA [id number] [address] [place] [address] [place] [facility] [id number] [place] [address] [place]#### TSHRF, 4-7, 2323-09 ####[facility] LABCLIA [id number] [address], [facility] [place] Triglyceride [Mass/Vol] 86 mg/dL Normal <150 [facility] Comment on above: Order Comment: Speci men Type: BLOOD SPECIMENOrdering Facility: [facility] Address: [address] [place] [address] Result Comment: <150 mg/dL, Normal 150-199 mg/dL, Borderline high 200-499 mg/dL, High>499 mg/dL, Very high Performed By: #### 2 4331-1 ####[facility] LABCLIA [id number] [place] [id number] [place] [facility] [id number] [place] [address] [place]#### TSHRF, 3023-7, 2323-09 ####[facility] LABCLIA [id number] [address] [address] [place] No Panel Informationon 12-07 [facility] T4 Free SerPl-mCncon 025 Free T4 [Mass/Vol] 0.8 ng/dL Low 0.9-1.7 [facility] Comment on above: Order Comment: Speci men Type: BLOOD SPECIMENOrdering Facility: [facility] Address: [address] [place] [id number] Performed By: #### 2 4331-1 ####[facility] LABCLIA [id number] [address] [address] [place] [facility] [id number] [place] [address] [place]#### TSHRF, 3024-7, 2324-2 ####[facility] LABCLIA [id number] [address] [address] [place] TSH W/REFLEX FT4on 5 Interpretation and review of laboratory results Abnormal [facility] TSH Qn 7.44 m[IU]/L High [facility] Comment on above: If the patient is pr egnant, TSH reference range varies by gestational period: First Trimester (weeks 9-12): 0.180-2.990 mIU/L Second Trimester: 0.110-3.980 mIU/L Third Trimester: 0.480-4.710 mIU/L Fredy Mosquera et al. A Practical Approach for the Verifications and Determination of Site- and Trimester-Specific Reference Intervals for Thyroid Function tests in . Thyroid, 2019:29:3:412-420. Keith Mendez, et al. 2017 Guidelines of the [place] Thyroid Association for the Diagnosis and Management of Thyroid Disease during and the . Thyroid, 2017:27:3:315-389. [facility] TSH Qn 7.440 m[IU]/L High 0.270-4.200 [facility] Comment on above: Order Comment: Speci men Type: BLOOD SPECIMENOrdering Facility: [facility] Address: [address] [place] [address] Result Comment: If t he patient is , TSH reference range varies by gestational period:First Trimester (weeks 9-12): 0.180-2.990 mIU/LSecond Trimester: 0.110-3.980 mIU/LThird Trimester: 0.480-4.710 mIU/LDzahira Mosquera et al. A Practical Approach for the Verifications and Determination of Site- and Trimester-Specific Reference Intervals for Thyroid Function tests in . Thyroid, 2019:29:3:412-420. Keith E, et al. 2017 Guidelines of the [place] Thyroid Association for the Diagnosis and Management of Thyroid Disease during and the . Thyroid, 2017:27:3:315-389. Performed By: #### 2 4331-1 ####[facility] LABCLIA [id number] [address] OF [facility] [id number] [address] OF [place]#### TSHRF, 3024-7, 2324-2 ####[facility] LABCLIA [id number] [address] [place] VITAMIN D 25 HYDROXYon 12-07 25-hydroxyvitamin D3 [Mass/Vol] 16.3 ng/mL Low 31.0 - 80.0 ng/mL [facility] Comment on above: Classification of 25 [place] Vitamin D status: Deficiency/Insufficiency: < or = 30 ng/ml. Sufficiency/Optimal Levels: 31-80 ng/mL Toxicity: > 100 ng/mL. Test performed by chemiluminescent immunoassay. CNOVon 12-06-2024 CNTYRON Office Visit (STANLEY TELLO) SRI CHACON ([id number]) 1975 F Date Time Provider Department 12/06/24 2:20 PM IVETH HERNANDEZ During your visit today, we recorded the following information about you: Temperature Pulse Respiration Blood pressure 98.2 degrees 76/minute 18/minute 120/74 Iveth Hernandez, CASINO GAMING INSPECTOR.SPOOL TENDER 12/08/2024 1:16 PM Signed [facility] Iveth Hernandez CASINO GAMING INSPECTOR-SPOOL TENDER [address] [place] [address] Dept Dept. Visit Date: December 06, 2024 Ms.Tina Alise Chacon Date of : 1975 MRN/E #: [id number] Chief Complaint: Patient presents with: Establish Care History of Present Illness Sri is a 49-year-old female with a history of epilepsy, chronic migraines, and hypothyroidism, presenting for an initial visit and evaluation of abdominal pain. I reviewed past medical, surgical, social, and family histories today and updated chart. Allergies, chronic medications, and supplements were also reviewed. Recording using [employer] software for draft documentation of the visit was discussed with the patient/authorized videotape sales representative; all questions welcomed and answered. Patient/authorized videotape sales representative agreed to proceed Abdominal Pain: - Persistent abdominal pain described as a twisting and stabbing sensation, x years. - Pain is constant, worsens after eating and drinking. - Denies acid reflux or positional relief. - Occasional nausea; denies severe constipation. - No relief from ghfg-yqc-aypyhks medications. Chronic Migraines: - Chronic migraines since age 15, occurring all day and all night. - Currently taking Qulipta without relief. - Followed by Dr. Bean for migraine management. Epilepsy: - Managed by Dr. Acosta. - Recent seizures characterized by convulsions and staring episodes, lasting approximately 10 minutes. - Experiences confusion and emotional distress post-seizure. - Currently on Lamictal 100 mg BID. Hypothyroidism: - Last TSH checked in June was elevated at 7.3. - Followed by Dr. Griffiths, with labs ordered to be redone in July. Depression: - Managed with Lamictal, Remeron, and Prozac. - Last seen by psychiatry at [facility]. Liver Enzyme Elevation: - Recent labs from September showed elevated alkaline phosphatase. - Other liver enzymes (AST, ALT, bilirubin) were normal. 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 - Underwent three surgeries (April 07, June 30, and September 30). - Currently in physical therapy without significant improvement. - Scheduled to see a specialist in [place] for further evaluation. PAST MEDICAL HISTORY Diagnosis Date Calculus of kidney 07/03/2006 Calculus of ureter 03/16/2008 Convulsions (HCC) 02/01/2013 Depression Essential hypertension 01/01/2018 Gallstone 12/25/2017 Hydronephrosis 03/16/2008 Hypothyroidism IBS (irritable bowel syndrome) Lactose intolerance in adult 01/21/2018 Migraine 02/01/2013 Nonrheumatic mitral (valve) prolapse 06/15/2017 Seizure disorder (HCC) last 04/2021 Traumatic brain injury (HCC) Unspecified asthma(493.90) Unspecified ectopic without intrauterine (HCC) Ectopic PAST SURGICAL HISTORY Procedure Laterality Date ARTHROSCOPY KNEE DIAGNOSTIC W/WO SYNOVIAL BX SPX Left 06/30/2024 Dr. Mccracken ARTHROSCOPY KNEE W/MENISCUS RPR MEDIAL/LATERAL Left 04/07/2024 Left knee arthroscopy medial meniscus root/posterior horn repair CYSTOSCOPY,URETEROSCOPY ,LITHOTRIPSY DILATION AND CURETTAGE DXAND/THER NONOBSTETRIC 1995 Dilation [...] Social History Tobacco Use Smoking status: Never Passive exposure: Never Smokeless tobacco: Never Vaping Use Vaping status: Never Used Substance Use Topics Alcohol use: Yes Comment: rare Drug use: Never Social History Social History Narrative Not on file Family History Reviewed Including Cardiac Diseases, Psychiatric Diseases, AND Substance Abuse Problem: Arthritis Relation: Mother Age of Onset: (Not Specified) Problem: Cataract Relation: Mother Age of Onset: (Not Specified) Problem: other (pacemaker, defibrillator) Relation: Mother Age of Onset: (Not Specified) Problem: other (mitral valve) Relation: Father Age of Onset: (Not Specified) Problem: Cataract Relation: Maternal Grandmother Age of Onset: (Not Specified) (more content not included)... Normal [facility] Tele[facility] ([facility]) SRI CHACON ([id number]) 1975 F Date Time Provider Department 12/01/24 ANI RAJPUT [facility] During your visit today, we recorded the following information about you: Angeline Julien 12/01/2024 1:42 PM Signed Called patient and left voicemail to reschedule injection with Karen. Angeline Julien Allergies As of Date: 12/01/2024 Noted Allergy Reaction CODEINE 07/08/2006 4 - Hives 7 - Swelling Comments: swelling-airway/face MORPHINE 07/01/2006 7 - Swelling PENICILLIN G 07/01/2006 4 - Hives 7 - Swelling SHELLFISH DERIVED 10/19/2018 10 - Anaphylaxis BENADRYL (DIPHENHYDRAMINE HCL) 07/01/2006 1 - Mental Status Change PHENERGAN (PROMETHAZINE HCL) 07/01/2006 1 - Mental Status Change ASPIRIN 09/24/2018 2 - Rash Date Reviewed: 10/26/2024 Reviewed by: Ani Rajput, CASINO GAMING INSPECTOR.SPOOL TENDER - Fully Assessed Reason for Visit: Appointment [186] Prescriptions as of 12/01/2024 - Syringe with Needle, Disp, 3 mL 23 x 1 1 Each as directed. - lamoTRIgine (LAMICTAL) 100 mg tablet Take 1 tablet by mouth two times a day. To start on or after 08/10/2024, after completing titration schedule. - atogepant (QULIPTA) 60 mg tablet Take 1 tablet (60 mg) by mouth once daily. - Mirtazapine (REMERON) 7.5 mg tablet Take 1 tablet by mouth daily at bedtime. - FLUoxetine (PROZAC) 40 mg capsule Take 1 capsule by mouth once daily. - ergocalciferol 50,000 unit capsule (VITAMIN D2, DRISDOL) Take 1 capsule by mouth one time a week. - levothyroxine (SYNTHROID) 75 mcg tablet Take 1 tablet by mouth daily before breakfast. Problem List As Of Date 12/01/2024 Noted Resolved Calculus of kidney [N20.0] 07/03/2006 12/26/2017 Asthma [J45.909] 07/17/2007 Sprain of right ankle [S93.401A] 10/18/2007 Renal colic [N23] 01/21/2008 12/24/2017 Hydronephrosis [N13.30] [...] Essential hypertension [I10] 01/01/2018 Depression [F32.A] 01/01/2018 Chronic pain of left knee [M25.562, G89.29] 2024 Tear of medial meniscus of left knee, current [*2024 Seizure-like activity (HCC) [R56.9] 06/19/2024 Psychogenic nonepileptic seizure [F44.5] 06/20/2024 Mood disorder (HCC) [F39] 06/21/2024 Hypothyroidism [E03.9] 06/21/2024 Acute medial meniscus tear of left knee [S83.24*08/08/2024 Arthrofibrosis of knee joint, left [M24.662] 10/05/2024 Encounter Status:Closed by ANGELINE JULIEN on 12/01/24 [facility] CNTHERAPYon 10-20-2024 CNTHERAPY Normal [facility] CNOVon 10-19-2024 CNOV Normal [facility] CNPNon 10-19-2024 CNPN Normal [facility] CNTHERAPYon 10-18-2024 CNTHERAPY Normal [facility] CNPNon 10-12-2024 CNPN Normal [facility] CNTHERAPYon 10-12-2024 CNTHERAPY Normal [facility] [id number] 10-05-2024 [id number] Normal [facility] CNTHERAPYon 10-05-2024 CNTHERAPY Normal [facility] ANES POSTPROC EVALon 025 ANES POSTPROC EVAL HNO ID: [id number] Author: VINCE RAI MD Service: Anesthesiology Author Type: Anesthesiologist Type: Anesthesia Postprocedure Evaluation Filed: 10/04/2024 14:03 Note Text: POST ANESTHESIA EVALUATION NOTE : 1975 Procedure Summary Date: 10/04/24 Room / Location: [place] [address] / [facility] Anesthesia Start: 946 Anesthesia Stop: 1030 Procedure: MANIPULATION KNEE JOINT UNDER GENERAL ANES- with steroid injection (Left: Knee) Diagnosis: Chronic pain of left knee Arthrofibrosis of knee joint, left (Chronic pain of left knee [M25.562, G89.29]) (Arthrofibrosis of knee joint, left [M24.662]) Surgeons: Irene Randolph DO Responsible Provider: Vince Rai MD Anesthesia Type: general ASA Status: 3 Anesthesia Type: general Airway Type: LMA Last Vitals Vitals Value Taken Time BP 126/73 10/04/24 1124 Temp 36 ?C (96.8 ?F) 10/04/24 1028 HR SpO2 77 10/04/24 1124 Resp 16 10/04/24 1124 SpO2 99 % 10/04/24 1124 Post Anesthesia Patient Status Patient Evaluation: PACU. PACU/ICU Patient Condition: stable. Anticipated Disposition: phase 2 then home. Neurological Status: aware and responsive. Pulmonary Status: breathing comfortably on room air Airway Control: returned to baseline unsupported. Cardiovascular Status: stable. Pain Management: clinically adequate - multimodal analgesia pain management approach Postoperative Hydration: acceptable. Intraoperative Events: no significant anesthesia events Recommendation: continue current plan of care. Anesthesia Observations No Documentation SIGNATURE: Vince Rai MD PATIENT NAME: Sri Chacon DATE: October 04, 2024 TIME: 2:03 PM CSN: [id number] [facility] ANES PRE-OPon 10-04-2024 ANES PRE-OP HNO ID: [id number] Author: VINCE RAI MD Service: Anesthesiology Author Type: Anesthesiologist Type: Anesthesia Preprocedure Evaluation Filed: 10/04/2024 08:19 Note Text: ANESTHESIOLOGY DAY OF SURGERY NOTE : 1975 Procedure Information Date/Time: 10/04/24 0912 Procedures: ARTHROSCOPY KNEE SYNOVECTOMY MAJOR (Left: Knee) MANIPULATION KNEE JOINT UNDER GENERAL ANES (Left: Knee) - Needs long acting post op block, Dr. Dia informed ARTHROSCOPY KNEE LYSIS OF ADHESIONS (Left) Location: [facility] OR / [facility] Surgeons: Irene Randolph DO Estimated body mass index is 25.51 kg/m? as calculated from the following: Height as of this encounter: 154.9 cm (5' 1). Weight as of this encounter: 61.2 kg (135 lb). Most recent hematocrit and potassium results: Hematocrit 45.4 09/26/2024 Potassium 4.3 09/26/2024 Relevant Problems CARDIO (+) Essential hypertension (+) Migraine (+) Nonrheumatic mitral (valve) prolapse ENDO (+) Hypothyroidism NEURO-PSYCH (+) Migraine (+) Other convulsions (+) Psychogenic nonepileptic seizure PULMONARY (+) Asthma I - PHYSICAL EVALUATION AIRWAY Patient intubated: No. Tracheostomy tube not present Mallampati: II. TM distance: >3 FB. Neck ROM: full ROM without neurological symptoms. Short neck: no. Thick neck: no Additional exam findings: yes. CARDIOVASCULAR Rhythm: regular PULMONARY Breath sounds clear to auscultation. II - ANESTHESIA PLAN ASA Score: 3 Anesthetic Plan: general Airway type: LMA NPO Status: adequate Beta Lyndsey Monitoring Plan Monitoring plan: Standard ASA. Post Procedure Analgesic Plan Postoperative analgesic plan: parenteral or oral opioids. Patient / Surrogate agrees to blood products: blood products not planned DNR status not reviewed with patient and/or family prior to surgery. Significant changes in the patient condition since the History and Physical, not otherwise documented in primary service progress note: no. Potential Anesthesia issues that may suggest increased risk of complications or contraindication to planned procedure: none. Vitals Value Taken Time BP 131/71 10/04/24754 Pulse 79 10/04/24754 Resp 18 10/04/24754 Temp 36.5 ?C (97.7 ?F) 10/04/24754 SpO2 97 % 10/04/24754 Facility-Administered Medications as of 10/04/2024 Medication Dose Route Frequency - lidocaine (PF) 10 mg/mL (1 %) 1-2 mg injection (XYLOCAINE) 0.1-0.2 mL INTRADERMAL PRN - NaCl 0.9% iv flush bag 20 mL INTRAVENOUS PRN - clindamycin iv piggyback 600 mg in D5W 50 mL (CLEOCIN) 600 mg INTRAVENOUS ONCE - acetaminophen 1,000 mg tab(s) (TYLENOL) 1,000 mg ORAL As Directed - lactated ringers iv infusion 5-30 mL/hr INTRAVENOUS CONTINUOUS - scopolamine (delivers 1 mg over 3 days) 1 Patch (TRANSDERM-SCOP) 1 Patch TRANSDERMAL ONCE - scopolamine - VERIFY patch OTHER q 8 H - [START ON 10/05/2024] scopolamine - REMOVE PATCH OTHER ONCE - midazolam (PF) 2 mg injection (VERSED) 2 mg INTRAVENOUS ONCE Outpatient Medications as of 10/04/2024 Medication Sig - diphenhydrAMINE (BENADRYL) 50 mg/mL injection Inject 50 mg intramuscularly every 6 hours as needed (at migraine onset). Max 200mg per day. Max dispense 16 mL per month - Syringe with Needle, Disp, 3 mL 23 x 1 1 Each as directed. - lamoTRIgine (LAMICTAL) 100 mg tablet Take 1 tablet by mouth two times a day. To start on or after 08/10/2024, after completing titration schedule. - atogepant (QULIPTA) 60 mg tablet Take 1 tablet (60 mg) by mouth once daily. - FLUoxetine (PROZAC) 40 mg capsule Take 1 capsule by mouth once daily. - ergocalciferol 50,000 unit capsule (VITAMIN D2, DRISDOL) Take 1 capsule by mouth one time a week. I have interviewed and examined the patient. I have reviewed the medical record and/or the pre-anesthesia evaluation, pertinent labs, and test results. This contains updated information obtained within 48 hours of Surgery/Procedure. SIGNATURE: Vince Rai MD PATIENT NAME: Sri Chacon DATE: October 04, 2024 TIME: 8:18 AM CSN: [id number] [facility] NURSING PROGon 10-04-2024 NURSING PROG HNO ID: [id number] Author: MARION LIMA RN Service: ? Author Type: Registered Nurse Type: Nursing Progress Note Filed: 10/04/2024 09:29 Note Text: Dr. Rai at bedside for Ultrasound guided Left adductor nerve block. RN at bedside, pt monitored throughout, BP 135/63 Pulse 76 Temp 36.5 ?C (97.7 ?F) (Temporal Artery) Resp 19 Ht 154.9 cm (5' 1) Wt 61.2 kg (135 lb) SpO2 100% BMI 25.51 kg/m? . Pt medicated with 2 mg iv versed, 50 mcg fentanyl . Pt tolerated procedure without difficulty. Family called to bedside at completion of procedure. [facility] OPERATIVE NOon 10-04-2024 OPERATIVE NO HNO ID: [id number] Author: IRENE RANDOLPH DO Service: Orthopaedic Surgery Author Type: Physician Type: Operative Report Filed: 10/04/2024 10:43 Note Text: OPERATIVE/PROCEDURE REPORT LOG ID: [id number] SURGERY/PROCEDURE DATE: 10/04/2024 INCISION/PROCEDURE START TIME: 10:04 AM INCISION CLOSE/PROCEDURE END TIME: 10:19 AM SURGEON(S)/PROCEDURALIS T(S) AND CERAMICS ARTIST(S): Surgeons and Role: * Irene Randolph DO - Primary Physician Aviation Safety Officer: Elizabeth Karimi PA-C Registered Nurse [employer] Officer: Dania Moore RN SURGERY/PROCEDURE(S): Left knee evalution under anesthesia, manipulation under anesthesia, intraarticular knee injction ANESTHESIA: General SURGERY/PROCEDURE DETAILS: Preop note Patient is a 49-year-old female well-known to me in clinic had a meniscus repair and then developed some synovitis post op the first time taken her to the OR scoped her knee she had little synovitis she did get debilitated for the last 10 to 15 degrees of flexion at that time and was sent to PT. Patient then returned and for the last 2 months has been unable to sting her leg PT has been working with her as well as we have in the office to work on the brace and to work on ways to get her drain patient states is a mechanical block. We discussed options for manipulation versus open lysis of adhesions pending her evaluation under anesthesia. Patient is aware would like proceed with a left knee evaluation under anesthesia possible manipulation under anesthesia with possible arthroscopic lysis of adhesions repair as indicated. Rheum labs negative. Operative note Patient seen and examined. The whole preoperative holding her. Left knee was marked. Patient received a preop regional block. Patient brought to the operating room placed supine on the operating table. [place], anesthesia, antibiotics were ministered. After patient was asleep she was able to upon evaluation she had full extension of her left knee with no mechanical blocks whatsoever. We compared this to her right knee and they were comparable if not anatomic compared to her contralateral. We then flexed her knee as far as it would go in flexion of her left there is slight cracking popping the last 5 degrees of flexion but this was again anatomic compared to her right knee after the last 5 degrees of manipulation. She had good patella mobility of her left knee we did then under sterile conditions perform a left intra-articular Kenalog injection. Patient was placed back in her T ROM in full extension upon awake patient had 0 pain. Patient is to see physical therapy tomorrow and call and her therapist was notified of no blocks to extension once patient was asleep. Patient Toller procedure well no complications respiratory room stable condition. Postoperative note Percocet Weight-bear as tolerated with T ROM locked in extension locked in extension for the next 6 weeks at night and while ambulating Physical therapy for aggressive range of motion in both extension and in flexion is again no blocks to range of motion after during our evaluation under anesthesia except in the last 3 degrees of flexion Call with increased pain numbness ting or further issues arise Jovan disclaimer comment: Please note this report has been produced using speech recognition software and may contain errors related to that system including errors in grammar, punctuation, and spelling, as well as words and phrases that may be inappropriate. If there are any questions or concerns please feel free to contact the dictating provider for clarification. PRE-OP/PRE-PROCEDURE DIAGNOSIS: left knee arthrofibrosis POST-OP/POST-PROCEDURE DIAGNOSIS: Same as Preop ESTIMATED BLOOD LOSS: 0 ml SPECIMENS: None IMPLANTABLE DEVICES: NONE DRAINS: None COMPLICATIONS: None PARTICIPATION IN SURGERY/PROCEDURE: I/primary surgeon/proceduralist performed the procedure with assistance. No qualified resident/fellow was available. SIGNATURE: Irene Randolph DO PATIENT NAME: Sri Chacon DATE: October 04, 2024 TIME: 10:31 AM [facility] PHOTO KNEE LEFTon 10-04-2024 [facility] Radiology Study observation (narrative) [facility] B. burgdorferi IgG and IgM p selvin (S)on 09-30-2024 B. burgdorferi IgG+IgM Qn (S) Negative Normal Negative [facility] Comment on above: Order Comment: Cassandra cunningham Type: BLOOD SPECIMENOrdering Facility: [facility] Address: [address] [place] [address] Result Comment: Rece nt infection with B. burgdorferi sensu lato cannot be excluded if the specimen collected within four weeks after the onset of signs and symptoms or within six weeks after a known tick exposure. Clinical and epidemiological correlation is required. Performed By: #### 3 4942-3 ####[facility] LABCLIA [id number] [place] [address] [place] CK SerPl-cCncon 09-30-2024 CK [Catalytic activity/Vol] 41 U/L Low 42-196 [facility] Comment on above: Order Comment: Cassandra cunningham Type: BLOOD SPECIMENOrdering Facility: [facility] Address: [address] [place] [address] Performed By: #### 1 988-5, 3084-1, 2157-6, 02497-0 ####[facility] LABCLIA [id number] [place] [address] [place] CRP SerPl-mCncon 09-30-2024 CRP [Mass/Vol] 0.5 mg/dL Normal <0.9 [facility] Comment on above: Order Comment: Cassandra cunningham Type: BLOOD SPECIMENOrdering Facility: [facility] Address: [address] [place] [address] Performed By: #### 1 988-5, 3084-1, 2157-6, 52352-9 ####[facility] [id number] [place] [address] [place] Cyclic citrullinated peptide IgG Qnon 09-30-2024 CCP ANTIBODY IGG QUALITATIVE Negative Normal Negative [facility] Comment on above: Order Comment: Speci men Type: BLOOD SPECIMENOrdering Facility: [facility] Address: [address] [place] [address] Performed By: #### 3 3935-8 ####[facility] [id number] [place] [address] [place] ESR Westergren method (Bld) [Velocity]on 09-30-2024 ESR (Bld) [Velocity] 16 mm/h Normal 0-20 [facility] Comment on above: Order Comment: Speci men Type: BLOOD SPECIMENOrdering Facility: [facility] Address: [address] [place] [address] Performed By: #### 4 537-7 ####[facility] [id number] [place] [address] [place] Nuclear Ab IA Ql (S)on 09-30 NIKKI SCR QUAL Negative Normal Negative [facility] Comment on above: Order Comment: Speci men Type: BLOOD SPECIMENOrdering Facility: [facility] Address: [address] [place] [address] Result Comment: The qualitative antinuclear antibody screen test performed using the following antigens: dsDNA, Chromatin, Ribosomal P, SS-A 60, SS-A 52, SS-B, Sm, SmRNP, CONDOM[employer]IUM ASSOCIATION MANAGER A, CONDOMINIUM ASSOCIATION MANAGER 68, Scl-70, Gracie-1, and Centromere B. Methodology: Multiplex flow immunoassay. Performed By: #### 4 7383-5 ####[facility] [id number] [place] [address] [place] Rheumatoid fact SerPl-aCncon 09-30-2024 Rheumatoid factor Qn [IU]/mL Normal <16 [facility] Comment on above: Order Comment: Speci men Type: BLOOD SPECIMENOrdering Facility: [facility] Address: [address] [place] [address] Performed By: #### 1 988-5, 3084-1, 2157-6, 16150-4 ####[facility] LABIA [id number] [place] [address] [place] Urate SerPl-mCncon Urate [Mass/Vol] 5.2 mg/dL Normal 2.5-6.6 [facility] Comment on above: Order Comment: Speci men Type: BLOOD SPECIMENOrdering Facility: [facility] Address: [address] [place] [address] Performed By: #### 1 988-5, 3084-1, 7-6, 52863-8 ####[facility] LABIA [id number] [place] [address] [place] cCP IgG SerPl-aCncon 025 Cyclic citrullinated peptide IgG Qn <15 Normal <20 [facility] Comment on above: Order Comment: Speci men Type: BLOOD SPECIMENOrdering Facility: [facility] Address: [address] [place] [address] Performed By: #### 3 3935-8 ####[facility] LABIA [id number] [place] [address] [place] HISTORY PHYSICALon 5 HISTORY PHYSICAL Normal [facility] CBC panel Auto (Bld)on 09-26 Erythrocyte distribution width (RBC) [Ratio] 13.1 % Normal 11.5-15.0 [facility] Comment on above: Order Comment: Speci men Type: BLOOD SPECIMENOrdering Facility: [facility] Address: [address] [place] [address] Performed By: #### 5 8410-2 ####[facility]ITALTOWNCLIA [id number] [place] [address] [place] Hematocrit (Bld) [Volume fraction] 45.4 % Normal 36.0-46.0 [facility] Comment on above: Order Comment: Speci men Type: BLOOD SPECIMENOrdering Facility: [facility] Address: [address] [place] [address] Performed By: #### 5 8410-2 ####[facility]ENTERCORALIA [id number] [place] [address] [place] Hemoglobin (Bld) [Mass/Vol] 14.8 g/dL Normal 11.5-15.5 [facility] Comment on above: Order Comment: Speci men Type: BLOOD SPECIMENOrdering Facility: [facility] Address: [address] [place] [address] Performed By: #### 5 8410-2 ####[facility] H[facility]ITALLIA [id number] [place] [address] [place] [facility] MCH (RBC) [Entitic mass] 28.7 pg Normal 26.0-34.0 [facility] Comment on above: Order Comment: Speci men Type: BLOOD SPECIMENOrdering Facility: [facility] Address: [address] [place] [address] Performed By: #### 5 8410-2 ####[facility]ERC[facility]ALIA [id number] [place] [address] [place] MCHC (RBC) [Mass/Vol] 32.6 g/dL Normal 30.5-36.0 [facility] Comment on above: Order Comment: Speci men Type: BLOOD SPECIMENOrdering Facility: [facility] Address: [address] [place] [address] Performed By: #### 5 8410-2 ####[facility]ENTERNCLIA [id number] [place] [address] [place] MCV (RBC) [Entitic vol] 88.2 fL Normal 80.0-100.0 [facility] Comment on above: Order Comment: Speci men Type: BLOOD SPECIMENOrdering Facility: [facility] Address: [address] [place] [address] Performed By: #### 5 8410-2 ####[facility] [id number] [place] [address] [place] Nucleated RBC (Bld) [#/Vol] 10*3/uL Normal <0.01 [facility] Comment on above: Order Comment: Speci men Type: BLOOD SPECIMENOrdering Facility: [facility] Address: [address] [place] [address] Performed By: #### 5 8410-2 ####[facility]ENTERNCBEAV[facility] [id number] [place] [address] [place] Platelet mean volume (Bld) [Entitic vol] 9.0 fL Normal 9.0-12.7 [facility] Comment on above: Order Comment: Speci men Type: BLOOD SPECIMENOrdering Facility: [facility] Address: [address] [place] [address] Performed By: #### 5 8410-2 ####[facility] HOSPITALLIA [id number] [place] [address] [place] Platelets (Bld) [#/Vol] 285 10*3/uL Normal 150-400 [facility] Comment on above: Order Comment: Speci men Type: BLOOD SPECIMENOrdering Facility: [facility] Address: [address] [place] [address] Performed By: #### 5 8410-2 ####[facility]ENTERNCLIA [id number] [place] [address] [place] RBC (Bld) [#/Vol] 5.15 10*6/uL Normal 3.90-5.20 [facility] Comment on above: Order Comment: Speci men Type: BLOOD SPECIMENOrdering Facility: [facility] Address: [address] [place] [address] Performed By: #### 5 8410-2 ####[facility] ADAMWNCLIA [id number] [place] [address] [place] WBC (Bld) [#/Vol] 6.17 10*3/uL Normal 3.70-11.00 [facility] Comment on above: Order Comment: Speci men Type: BLOOD SPECIMENOrdering Facility: [facility] Address: [address] [place] [address] Performed By: #### 5 8410-2 ####[facility] FLORIDAWNCLIA [id number] [place] [address] [place] Comprehensive metabolic 2000 panelon 09-26-2024 Albumin [Mass/Vol] 4.5 g/dL Normal 3.9-4.9 [facility] Comment on above: Order Comment: Speci men Type: BLOOD SPECIMENOrdering Facility: [facility] Address: [address] [place] [address] Performed By: #### 2 4323-8 ####[facility]ERNCLIA [id number] [place] [address] [place] ALP [Catalytic activity/Vol] 148 U/L High 34-123 [facility] Comment on above: Order Comment: Speci men Type: BLOOD SPECIMENOrdering Facility: [facility] Address: [address] [place] [address] Performed By: #### 2 4323-8 ####[facility]ENTERNCLIA [id number] [place] [address] [place] ALT [Catalytic activity/Vol] 24 U/L Normal 7-38 [facility] Comment on above: Order Comment: Speci men Type: BLOOD SPECIMENOrdering Facility: [facility] Address: [address] [place] [address] Performed By: #### 2 4323-8 ####[facility] MILLTOWNCLIA [id number] [place] [address] [place] Anion gap [Moles/Vol] 10 mmol/L Normal 8-15 [facility] Comment on above: Order Comment: Speci men Type: BLOOD SPECIMENOrdering Facility: [facility] Address: [address] [place] [address] Performed By: #### 2 4323-8 ####[facility] MILLTOWNCLIA [id number] [place] [address] [place] AST [Catalytic activity/Vol] 20 U/L Normal 13-35 [facility] Comment on above: Order Comment: Speci men Type: BLOOD SPECIMENOrdering Facility: [facility] Address: [address] [place] [address] Performed By: #### 2 4323-8 ####[facility]ENTERNCLIA [id number] [place] [address] [place] Bilirubin [Mass/Vol] 0.6 mg/dL Normal 0.2-1.3 [facility] Comment on above: Order Comment: Speci men Type: BLOOD SPECIMENOrdering Facility: [facility] Address: [address] [place] [address] Performed By: #### 2 4323-8 ####[facility] MILLTOWNCLIA [id number] [place] [address] [place] Calcium [Mass/Vol] 10.1 mg/dL Normal 8.5-10.2 [facility] Comment on above: Order Comment: Speci men Type: BLOOD SPECIMENOrdering Facility: [facility] Address: [address] [place] [address] Performed By: #### 2 4323-8 ####[facility] MILLTOWNCLIA [id number] [place] [address] [place] Chloride [Moles/Vol] 102 mmol/L Normal 98-107 [facility] Comment on above: Order Comment: Speci men Type: BLOOD SPECIMENOrdering Facility: [facility] Address: [address] [place] [address] Performed By: #### 2 4323-8 ####[facility] [id number] [place] [address] [place] CO2 [Moles/Vol] 27 mmol/L Normal 22-30 [facility] Comment on above: Order Comment: Speci men Type: BLOOD SPECIMENOrdering Facility: [facility] Address: [address] [place] [address] Performed By: #### 2 4323-8 ####[facility] [id number] [place] [address] [place] Creatinine [Mass/Vol] 0.95 mg/dL Normal 0.58-0.96 [facility] Comment on above: Order Comment: Speci men Type: BLOOD SPECIMENOrdering Facility: [facility] Address: [address] [place] [address] Performed By: #### 2 4323-8 ####[facility] [id number] [address] OF [facility] Creatinine and Glomerular filtration rate.predicted panel (S/P/Bld) 73 mL/min/1.73m??? Normal >=60 [facility] Comment on above: Order Comment: Speci men Type: BLOOD SPECIMENOrdering Facility: [facility] Address: [address] [place] [address] Result Comment: Ninfa mated Glomerular Filtration Rate (eGFR) is calculated using the 2020 CKD-EPI creatinine equation. This equation utilizes serum creatinine, sex, and age as parameters. The creatinine assay has traceable calibration to isotope dilution-mass spectrometry. Refer to KDIGO guidelines for clinical interpretation. In patients with unstable renal function, e.g. those with acute kidney injury, the eGFR may not accurately reflect actual GFR. Performed By: #### 2 4323-8 ####[facility]ENTERNCA [id number] [place] [address] [place] Glucose [Mass/Vol] 99 mg/dL Normal 74-99 [facility] Comment on above: Order Comment: Cassandra cunningham Type: BLOOD SPECIMENOrdering Facility: [facility] Address: [address] [place] [address] Result Comment: The [place] Diabetes Association (ADA) provides guidance for cutoff values for fasting glucose and random glucose. The ADA defines fasting as no caloric intake for at least 8 hours. Fasting plasma glucose results between 100 to 125 mg/dL indicate increased risk for diabetes (prediabetes).Fasting plasma glucose results greater than or equal to 126 mg/dL meet the criteria for diagnosis of diabetes. In the absence of unequivocal hyperglycemia, results should be confirmed by repeat testing. In a patient with classic symptoms of hyperglycemia or hyperglycemic crisis, random plasma glucose results greater than or equal to 200 mg/dL meet the criteria for diagnosis of diabetes.Reference: Standards of Medical Care in Diabetes 2016, [place] [employer]. Diabetes Care. 2016.39(Suppl 1). Performed By: #### 2 4323-8 ####[facility]ENTERNCLIA [id number] [place] [address] [place] Potassium [Moles/Vol] 4.3 mmol/L Normal 3.7-5.1 [facility] Comment on above: Order Comment: Cassandra cunningham Type: BLOOD SPECIMENOrdering Facility: [facility] Address: [address] [place], [place] [address] Performed By: #### 2 4323-8 ####[facility] [id number] [place] [address] [place] Protein [Mass/Vol] 7.8 g/dL Normal 6.3-8.0 [facility] Comment on above: Order Comment: Cassandra cunningham Type: BLOOD SPECIMENOrdering Facility: [facility] Address: [address] [place], [place] [address] [address] Performed By: #### 2 4323-8 ####[facility] ADAMBrooklynNCLIA [id number] [place] [address] [place] Sodium [Moles/Vol] 139 mmol/L Normal 136-144 [facility] Comment on above: Order Comment: Speci men Type: BLOOD SPECIMENOrdering Facility: [facility] Address: [facility] [place] [address] Performed By: #### 2 4323-8 ####[facility] ADAMCOATESVILLENCLIA [id number] [place] [address] [place] Urea nitrogen [Mass/Vol] 14 mg/dL Normal 7-21 [facility] Comment on above: Order Comment: Speci men Type: BLOOD SPECIMENOrdering Facility: [facility] Address: [facility] [place] [address] Performed By: #### 2 4323-8 ####[facility] ADAMST. VINCENT CARMEL HOSPITALLIA [id number] [place] [address] [place] CNCOon 09-22-[address] [facility] CNOVon 09-22-2024 CNOV Office Visit (SPAGWO ) SRI CHACON ([id number]) 1975 F Date Time Provider Department 09/22/24 10:45 AM FRIDA VARGAS During your visit today, we recorded the following information about you: Pulse Respiration Normal [facility] CNPNon 09-22-2024 GEMMAN Telephone (SPAGWO) SRI CHACON ([id number]) 1975 F Date Time Provider Department 09/22/24 FRIDA VARGAS During your visit today, we recorded the following information about you: Sylvia Bass 09/22/2024 11:16 AM Signed Procedure(s) being scheduled: Sphenopalatine ganglion block NONE at N/A 1.Are you diabetic No 2. Are you on any blood thinners? No 3. Are you taking any aspirin? No 4. Are you currently taking any antibiotics? No 5. Do you have any allergies to latex? No 6. Do you have any allergies to seafood or shellfish? Yes 7. Do you have any allergies to x-ray dye? No 8. Does this procedure require a trash truck driver? Yes If yes, has patient been notified that a trash truck driver is needed and must be present at check in? yes 9. Were the pre-procedure instructions explained and provided to the patient? Yes 10. Do you have a pacemaker? No 11. Do you have an internal stimulator of any kind? No Sylvia Bass Allergies As of Date: 09/22/2024 Noted Allergy Reaction CODEINE 07/08/2006 4 - Hives 7 - Swelling Comments: swelling-airway/face MORPHINE 07/01/2006 7 - Swelling PENICILLIN G 07/01/2006 4 - Hives 7 - Swelling SHELLFISH DERIVED 10/19/2018 10 - Anaphylaxis BENADRYL (DIPHENHYDRAMINE HCL) 07/01/2006 1 - Mental Status Change PHENERGAN (PROMETHAZINE HCL) 07/01/2006 1 - Mental Status Change ASPIRIN 09/24/2018 2 - Rash Date Reviewed: 09/22/2024 Reviewed by: Frida Vargas APRN.SPOOL TENDER - Fully Assessed Reason for Visit: Injections [199] Prescriptions as of 09/22/2024 - diphenhydrAMINE (BENADRYL) 50 mg/mL injection Inject 50 mg intramuscularly every 6 hours as needed (at migraine onset). Max 200mg per day. Max dispense 16 mL per month - Syringe with Needle, Disp, 3 mL 23 x 1 1 Each as directed. - lamoTRIgine (LAMICTAL) 100 mg tablet Take 1 tablet by mouth two times a day. To start on or after 08/10/2024, after completing titration schedule. - atogepant (QULIPTA) 60 mg tablet Take 1 tablet (60 mg) by mouth once daily. - Mirtazapine (REMERON) 7.5 mg tablet Take 1 tablet by mouth daily at bedtime. - FLUoxetine (PROZAC) 40 mg capsule Take 1 capsule by mouth once daily. - ergocalciferol 50,000 unit capsule (VITAMIN D2, DRISDOL) Take 1 capsule by mouth one time a week. - levothyroxine (SYNTHROID) 75 mcg tablet Take 1 tablet by mouth daily before breakfast. Problem List As Of Date 09/22/2024 Noted Resolved Calculus of kidney [N20.0] 07/03/2006 12/26/2017 Asthma [J45.909] 07/17/2007 Sprain of right ankle [S93.401A] 10/18/2007 Renal colic [N23] 01/21/2008 12/24/2017 Hydronephrosis [N13.30] [...] Essential hypertension [I10] 01/01/2018 Depression [F32.A] 01/01/2018 Chronic pain of left knee [M25.562, G89.29] 2024 Tear of medial meniscus of left knee, current [*2024 Seizure-like activity (HCC) [R56.9] 06/19/2024 Psychogenic nonepileptic seizure [F44.5] 06/20/2024 Mood disorder (HCC) [F39] 06/21/2024 Hypothyroidism [E03.9] 06/21/2024 Acute medial meniscus tear of left knee [S83.24*08/08/2024 Encounter Status:Closed by SYLVIA BASS on 09/22/24 [facility] CNOVon 09-21-2024 CNOV Normal [facility] CNTHERAPYon 09-12-2024 CNTHERAPY Normal [facility] CNPNon 09-05-2024 CNPN Telephone (AGSPINE3) SRI CHACON ([id number]) 1975 F Date Time Provider Department 09/05/24 FRIDA VARGAS [facility] During your visit today, we recorded the following information about you: Patience Choudhary 09/05/2024 1:21 PM Signed ----- Message from Joya Sainz sent at 09/05/2024 11:12 AM EST ----- Regarding: Spine and Pain/Consult to Pain Mgt/[place] area Contact: Subject Line Format: Orthopedics / [Provider Name or Open AND Body Part] / [Issue] Patient has been identified by name and Date of (Y/N): Y Patient: Sri Chacon Date of : 1975 Previous Provider Seen: Dr Ricci 09/2021 Diagnosis/Reason For Visit: Chronic Migraine Reason for the call/escalation: can not find appt. in [place] area, Patient said she was told to schedule with Jimena. Patient has a consult to Pain Management but would like seen in [place] area. If reason for call/escalation is discharge from ED/ER or Hospital, which facility was the patient seen at: N Was an appointment scheduled (Y/N): N Person calling if other than patient: Pt Return call to if other than patient: Pt Best contact number: [phone] Thank you, Joya Weaver September 05, 2024 11:14 AM Sylvia Bass 09/05/2024 1:50 PM Signed Patient has been scheduled for 09/22/24. Not a new patient, last seen February 2022. Sylvia Bass Allergies As of Date: 09/05/2024 Noted Allergy Reaction CODEINE 07/08/2006 4 - Hives 7 - Swelling Comments: swelling-airway/face MORPHINE 07/01/2006 7 - Swelling PENICILLIN G 07/01/2006 4 - Hives 7 - Swelling SHELLFISH DERIVED 10/19/2018 10 - Anaphylaxis BENADRYL (DIPHENHYDRAMINE HCL) 07/01/2006 1 - Mental Status Change PHENERGAN (PROMETHAZINE HCL) 07/01/2006 1 - Mental Status Change ASPIRIN 09/24/2018 2 - Rash Date Reviewed: 08/19/2024 Reviewed by: Alice Leija MA - Fully Assessed Reason for Visit: Returning Patient's Call [408] New Patient [172] Prescriptions as of 09/05/2024 - Syringe with Needle, Disp, 3 mL 23 x 1 1 Each as directed. - lamoTRIgine (LAMICTAL) 100 mg tablet Take 1 tablet by mouth two times a day. To start on or after 08/10/2024, after completing titration schedule. - diphenhydrAMINE (BENADRYL) 50 mg/mL injection Inject 50 mg intramuscularly every 6 hours as needed (at migraine onset). - atogepant (QULIPTA) 60 mg tablet Take 1 tablet (60 mg) by mouth once daily. - Mirtazapine (REMERON) 7.5 mg tablet Take 1 tablet by mouth daily at bedtime. - FLUoxetine (PROZAC) 40 mg capsule Take 1 capsule by mouth once daily. - ergocalciferol 50,000 unit capsule (VITAMIN D2, DRISDOL) Take 1 capsule by mouth one time a week. - levothyroxine (SYNTHROID) 75 mcg tablet Take 1 tablet by mouth daily before breakfast. Problem List As Of Date 09/05/2024 Noted Resolved Calculus of kidney [N20.0] 07/03/2006 12/26/2017 Asthma [J45.909] 07/17/2007 Sprain of right ankle [S93.401A] 10/18/2007 Renal colic [N23] 01/21/2008 12/24/2017 Hydronephrosis [N13.30] [...] Essential hypertension [I10] 01/01/2018 Depression [F32.A] 01/01/2018 Chronic pain of left knee [M25.562, G89.29] 2024 Tear of medial meniscus of left knee, current [*2024 Seizure-like activity (HCC) [R56.9] 06/19/2024 Psychogenic nonepileptic seizure [F44.5] 06/20/2024 Mood disorder (HCC) [F39] 06/21/2024 Hypothyroidism [E03.9] 06/21/2024 Acute medial meniscus tear of left knee [S83.24*08/08/2024 Encounter Status:Closed by PATIENCE CHOUDHARY on 09/05/24 [facility] Micah 09-01-2024 CNPN Telephone (NEADFV) SRI CHACON ([id number]) 1975 F Date Time Provider Department 09/01/24 YESICA BEAN NEKEISHAFV During your visit today, we recorded the following information about you: Bonnie Talavera 09/01/2024 12:22 PM Signed Per pharmac[facility]Leia at [facility] at [phone] patient at filled diphenhydrAMINE (BENADRYL) 50 mg/mL injection on 08/26, 08/28, 08/29 and 09/01. Is she okay to take it this often? Lay Mcintosh, RN 09/01/2024 12:59 PM Signed Phoned Leia at the pharmacy. States patients son has picked up the bendaryl for her on 08/26, 08/28, 08/29, 09/01 getting 4 vials each time. Pharmacist states she is going to hold off on filling the medication for the patient at this time. Secure chat sent to Dr. Bean. Lay Mcintosh, RN 09/09/2024 9:17 AM Signed Confirmed with provider, limit for IM benadryl is 16 vials a month. Allergies As of Date: 09/01/2024 Noted Allergy Reaction CODEINE 07/08/2006 4 - Hives 7 - Swelling Comments: swelling-airway/face MORPHINE 07/01/2006 7 - Swelling PENICILLIN G 07/01/2006 4 - Hives 7 - Swelling SHELLFISH DERIVED 10/19/2018 10 - Anaphylaxis BENADRYL (DIPHENHYDRAMINE HCL) 07/01/2006 1 - Mental Status Change PHENERGAN (PROMETHAZINE HCL) 07/01/2006 1 - Mental Status Change ASPIRIN 09/24/2018 2 - Rash Date Reviewed: 08/19/2024 Reviewed by: Alice Leija MA - Fully Assessed Reason for Visit: update [Other] Visit Diagnosis:Intractable chronic migraine without aura and without status migrainosus [G43.719] Order(s):diphenhydrAMIN E (BENADRYL) 50 mg/mL injectionInject 50 mg intramuscularly every 6 hours as needed (at migraine onset). Max 200mg per day. Max dispense 16 mL per monthDisp: 16 mLRfl: 5 Prescriptions as of 09/12/2024 - diphenhydrAMINE (BENADRYL) 50 mg/mL injection Inject 50 mg intramuscularly every 6 hours as needed (at migraine onset). Max 200mg per day. Max dispense 16 mL per month - Syringe with Needle, Disp, 3 mL 23 x 1 1 Each as directed. - lamoTRIgine (LAMICTAL) 100 mg tablet Take 1 tablet by mouth two times a day. To start on or after 08/10/2024, after completing titration schedule. - atogepant (QULIPTA) 60 mg tablet Take 1 tablet (60 mg) by mouth once daily. - Mirtazapine (REMERON) 7.5 mg tablet Take 1 tablet by mouth daily at bedtime. - FLUoxetine (PROZAC) 40 mg capsule Take 1 capsule by mouth once daily. - ergocalciferol 50,000 unit capsule (VITAMIN D2, DRISDOL) Take 1 capsule by mouth one time a week. - levothyroxine (SYNTHROID) 75 mcg tablet Take 1 tablet by mouth daily before breakfast. Problem List As Of Date 09/01/2024 Noted Resolved Calculus of kidney [N20.0] 07/03/2006 12/26/2017 Asthma [J45.909] 07/17/2007 Sprain of right ankle [S93.401A] 10/18/2007 Renal colic [N23] 01/21/2008 12/24/2017 Hydronephrosis [N13.30] [...] Essential hypertension [I10] 01/01/2018 Depression [F32.A] 01/01/2018 Chronic pain of left knee [M25.562, G89.29] 2024 Tear of medial meniscus of left knee, current [*2024 Seizure-like activity (HCC) [R56.9] 06/19/2024 Psychogenic nonepileptic seizure [F44.5] 06/20/2024 Mood disorder (HCC) [F39] 06/21/2024 Hypothyroidism [E03.9] 06/21/2024 Acute medial meniscus tear of left knee [S83.24*08/08/2024 Prescriptions ordered this encounter Disp Refills Start End DIPHENHYDRAMINE 50 MG/ML INJECTION S* 16 mL 5 09/12/2024 10/12/2024 Route: INTRAMUSCULA Sig: Inject 50 mg intramuscularly every 6 hours as needed (at migraine onset). Max 200mg per day. Max dispense 16 mL per month Medications Discontinued During This Encounter Prescriptions - diphenhydrAMINE (BENADRYL) 50 mg/mL injection (Discontinued) Inject 50 mg intramuscularly every 6 hours as needed (at migraine onset). Encounter Status:Closed by YESICA BEAN on 09/12/24 [facility] [id number] 08-31-2024 [id number] Normal [facility] CNPTOUTREACHon 08-31-2024 CNPTOUTREACH Normal [facility] CNTHERAPYon 08-31-2024 CNTHERAPY Normal [facility] CNOVon 08-19-2024 CNOV Normal [facility] CNTHERAPYon 08-15-2024 CNTHERAPY Normal [facility] CNTHERAPYon 08-11-2024 CNTHERAPY Normal [facility] CNTHERAPYon 08-08-2024 CNTHERAPY Normal [facility] CNOVon 08-02-2024 CNOV Normal [facility] CNTHERAPYon 08-02-2024 CNTHERAPY Normal [facility] CNTHERAPYon 07-27-2024 CNTHERAPY Normal [facility] [id number] 07-21-2024 [id number] Normal [facility] CNTHERAPYon 07-21-2024 CNTHERAPY Normal [facility] THERAPY NTon 07-21-2024 THERAPY NT Normal [facility] CNOVon 07-14-2024 CNOV Normal [facility] US LEG VEIN DVT UNL VAS LABo n 07-14-2024 US LEG VEIN DVT UNL VAS LAB Normal [facility] US Lower extremity veinon Non-Invasive Vascular Laboratory [facility] Lower Extremity Venous Duplex Unilateral - Left Date of service/time: 07/14/2024 1:23:18 PM Name: MS. SRI CHACON Date of : 1975 Age: 49 years Gender: F Clinical Indication Post high risk surgical procedure and lower extremity pain. TECHNIQUE -------- A venous duplex ultrasound examination was performed, including grayscale imaging with compression maneuvers and color Doppler and spectral Doppler examination with augmentation maneuvers and response to respiration of the below mentioned veins. FINDINGS -------- RIGHT SIDE Common femoral vein Doppler: normal flow. LEFT SIDE Distal external iliac vein Doppler: normal flow. Compression: normal. Common femoral vein Doppler: normal flow. Compression: normal. Femoral vein Doppler: normal flow. Compression: normal. Popliteal vein Doppler: normal flow. Compression: normal. Posterior tibial veins Compression: normal. Peroneal veins Compression: normal. Great saphenous vein Compression: normal. Small saphenous vein Compression: normal. IMPRESSION Compared to prior study of 04/21/2024, Remains negative for thrombosis. RIGHT SIDE - DEEP VEINS Spontaneous and respirophasic flow noted in the common femoral vein. LEFT SIDE - DEEP VEINS Negative for acute deep vein thrombosis. LEFT SIDE - SUPERFICIAL VEINS Negative for superficial thrombophlebitis in the great saphenous vein and small saphenous vein. Technologist: Deborah Hanson RVT [facility] Ordering physician: IRENE RANDOLPH Interpreting physician: JERMAIN rGeen DO Final See Link below for Image [facility] ANES POSTPROC EVALon 024 ANES POSTPROC EVAL Normal [facility] ANES PRE-OPon 06-30-2024 ANES PRE-OP Normal [facility] OPERATIVE NOon 06-30-2024 OPERATIVE NO Normal [facility] HISTORY PHYSICALon HISTORY PHYSICAL Normal [facility] ALLIED HEALTHon 06-22-2024 ALLIED HEALTH Normal [facility] ALLIED HEALTH Normal [facility] CNDSon 06-22-2024 CNDS Normal [facility] NURSING PROGon 06-22-2024 NURSING PROG Normal [facility] SOCIAL WORKon 06-22-2024 SOCIAL WORK Normal [facility] CNPNon 06-21-2024 CNPN Normal [facility] CONSULTon 06-21-2024 CONSULT Normal [facility] CONSULT PROGon 06-21-2024 CONSULT PROG Normal [facility] SOCIAL WORKon 06-21-2024 SOCIAL WORK Normal [facility] CONSULTon 06-20-2024 CONSULT Normal [facility] THYROID PEROXIDASE ANTIBODYo n 06-20-2024 TPO Ab Qn 337.4 [IU]/mL High <5.6 [facility] Comment on above: Order Comment: Speci men Type: BLOOD SPECIMENOrdering Facility: [facility] Address: [address] [place] [address] Result Comment: Thyr oid Peroxidase Antibody test is used as an aid in diagnosis of autoimmune thyroid disease. Clinical correlation is required. Performed By: #### M ICRO ####[facility] LABCLIA [id number] [place] [address] [place] CBC W Auto Differential pane l (Bld)on 06-19-2024 Basophils (Bld) [#/Vol] 0.03 10*3/uL Normal <0.11 [facility] Comment on above: Order Comment: Speci men Type: BLOOD SPECIMENOrdering Facility: [facility] Address: [address] [place] [address] Performed By: #### 5 7021-8 ####[facility] LABIA [id number] [place] [address] [place] Basophils/100 WBC (Bld) 0.4 % Normal [facility] Comment on above: Order Comment: Speci men Type: BLOOD SPECIMENOrdering Facility: [facility] Address: [address] [place] [address] Performed By: #### 5 7021-8 ####[facility] LABCLIA [id number] [place] [address] [place] Differential cell count method Nom (Bld) Auto Normal [facility] Comment on above: Order Comment: Speci men Type: BLOOD SPECIMENOrdering Facility: [facility] Address: [address] [place] [address] Performed By: #### 5 7021-8 ####[facility] LABIA [id number] [place] [address] [place] Eosinophils (Bld) [#/Vol] 0.45 10*3/uL Normal <0.46 [facility] Comment on above: Order Comment: Speci men Type: BLOOD SPECIMENOrdering Facility: [facility] Address: [address] [place] [address] Performed By: #### 5 7021-8 ####[facility] LABCLIA [id number] [place] [address] [place] Eosinophils/100 WBC (Bld) 6.7 % Normal [facility] Comment on above: Order Comment: Speci men Type: BLOOD SPECIMENOrdering Facility: [facility] Address: [address] [place] [address] Performed By: #### 5 7021-8 ####[facility] LABCLIA [id number] [place] [address] [place] Erythrocyte distribution width (RBC) [Ratio] 13.6 % Normal 11.5-15.0 [facility] Comment on above: Order Comment: Speci men Type: BLOOD SPECIMENOrdering Facility: [facility] Address: [address] [place] [address] Performed By: #### 5 7021-8 ####[facility] LABIA [id number] [place] [address] [place] Hematocrit (Bld) [Volume fraction] 41.8 % Normal 36.0-46.0 [facility] Comment on above: Order Comment: Speci men Type: BLOOD SPECIMENOrdering Facility: [facility] Address: [address] [place] [address] Performed By: #### 5 7021-8 ####[facility] LABCLIA [id number] [place] [address] [place] Hemoglobin (Bld) [Mass/Vol] 13.7 g/dL Normal 11.5-15.5 [facility] Comment on above: Order Comment: Speci men Type: BLOOD SPECIMENOrdering Facility: [facility] Address: [address] [place] [address] Performed By: #### 5 7021-8 ####[facility] LABIA [id number] [place] [id number] [address] [place] Immature granulocytes (Bld) [#/Vol] 10*3/uL Normal <0.10 [facility] Comment on above: Order Comment: Speci men Type: BLOOD SPECIMENOrdering Facility: [facility] Address: [address] [place] [address] Performed By: #### 5 7021-8 ####[facility] LABCLIA [id number] [place] [address] [place] Immature granulocytes/100 WBC (Bld) 0.3 % Normal [facility] Comment on above: Order Comment: Speci men Type: BLOOD SPECIMENOrdering Facility: [facility] Address: [address] [place] [address] Performed By: #### 5 7021-8 ####[facility] LABCLIA [id number] [place] [address] [place] Lymphocytes (Bld) [#/Vol] 2.32 10*3/uL Normal 1.00-4.00 [facility] Comment on above: Order Comment: Speci men Type: BLOOD SPECIMENOrdering Facility: [facility] Address: [address] [place] [address] Performed By: #### 5 7021-8 ####[facility] LABCLIA [id number] [place] [address] [place] Lymphocytes/100 WBC (Bld) 34.7 % Normal [facility] Comment on above: Order Comment: Speci men Type: BLOOD SPECIMENOrdering Facility: [facility] Address: [address] [place] [address] Performed By: #### 5 7021-8 ####[facility] LABCLIA [id number] [place] [address] [place] MCH (RBC) [Entitic mass] 28.8 pg Normal 26.0-34.0 [facility] Comment on above: Order Comment: Speci men Type: BLOOD SPECIMENOrdering Facility: [facility] Address: [address] [place] [address] Performed By: #### 5 7021-8 ####[facility] LABCLIA [id number] [place] [address] [place] MCHC (RBC) [Mass/Vol] 32.8 g/dL Normal 30.5-36.0 [facility] Comment on above: Order Comment: Speci men Type: BLOOD SPECIMENOrdering Facility: [facility] Address: [address] [place] [address] Performed By: #### 5 7021-8 ####[facility] LABIA [id number] [place] [address] [place] MCV (RBC) [Entitic vol] 87.8 fL Normal 80.0-100.0 [facility] Comment on above: Order Comment: Speci men Type: BLOOD SPECIMENOrdering Facility: [facility] Address: [address] [place] [address] Performed By: #### 5 7021-8 ####[facility] LABIA [id number] [place] [address] [place] Monocytes (Bld) [#/Vol] 0.71 10*3/uL Normal <0.87 [facility] Comment on above: Order Comment: Speci men Type: BLOOD SPECIMENOrdering Facility: [facility] Address: [address] [place] [address] Performed By: #### 5 7021-8 ####[facility] LABCLIA [id number] [place] [address] [place] Monocytes/100 WBC (Bld) 10.6 % Normal [facility] Comment on above: Order Comment: Speci men Type: BLOOD SPECIMENOrdering Facility: [facility] Address: [address] [place] [address] Performed By: #### 5 7021-8 ####[facility] LABCLIA [id number] [place] [address] [place] Neutrophils (Bld) [#/Vol] 3.15 10*3/uL Normal 1.45-7.50 [facility] Comment on above: Order Comment: Speci men Type: BLOOD SPECIMENOrdering Facility: [facility] Address: [address] [place] [address] Performed By: #### 5 7021-8 ####[facility] LABCLIA [id number] [place] [address] [place] Neutrophils/100 WBC (Bld) 47.3 % Normal [facility] Comment on above: Order Comment: Speci men Type: BLOOD SPECIMENOrdering Facility: [facility] Address: [address] [place] [address] Performed By: #### 5 7021-8 ####[facility] LABCLIA [id number] [place] [address] [place] Nucleated RBC (Bld) [#/Vol] 10*3/uL Normal <0.01 [facility] Comment on above: Order Comment: Speci men Type: BLOOD SPECIMENOrdering Facility: [facility] Address: [address] [place] [address] Performed By: #### 5 7021-8 ####[facility] LABCLIA [id number] [place] [address] [place] Nucleated RBC/100 WBC (Bld) [Ratio] 0.0 /100 WBC Normal [facility] Comment on above: Order Comment: Speci men Type: BLOOD SPECIMENOrdering Facility: [facility] Address: [address] [place] [address] Performed By: #### 5 7021-8 ####[facility] LABCLIA [id number] [place] [address] [place] Platelet mean volume (Bld) [Entitic vol] 9.2 fL Normal 9.0-12.7 [facility] Comment on above: Order Comment: Speci men Type: BLOOD SPECIMENOrdering Facility: [facility] Address: [address] [place] [address] Performed By: #### 5 7021-8 ####[facility] LABIA [id number] [place] [address] [place] Platelets (Bld) [#/Vol] 260 10*3/uL Normal 150-400 [facility] Comment on above: Order Comment: Speci men Type: BLOOD SPECIMENOrdering Facility: [facility] Address: [address] [place] [address] Performed By: #### 5 7021-8 ####[facility] LABIA [id number] [place] [address] [place] RBC (Bld) [#/Vol] 4.76 10*6/uL Normal 3.90-5.20 [facility] Comment on above: Order Comment: Speci men Type: BLOOD SPECIMENOrdering Facility: [facility] Address: [address] [place] [address] Performed By: #### 5 7021-8 ####[facility] LABIA [id number] [place] [address] [place] WBC (Bld) [#/Vol] 6.68 10*3/uL Normal 3.70-11.00 [facility] Comment on above: Order Comment: Speci men Type: BLOOD SPECIMENOrdering Facility: [facility] Address: [address] [place] [address] Performed By: #### 5 7021-8 ####[facility] LABIA [id number] [place] [address] [place] Comprehensive metabolic 2000 panelon 06-19-2024 Albumin [Mass/Vol] 4.0 g/dL Normal 3.9-4.9 [facility] Comment on above: Order Comment: Speci men Type: BLOOD SPECIMENOrdering Facility: [facility] Address: [address] [place] [address] Performed By: #### 3 026-2, 18707-6, 19972-1, 2777-1, 3016-3, 3051-0 ####[facility] LABCLIA [id number] [address] [address] [place] ALP [Catalytic activity/Vol] 87 U/L Normal 34-123 [facility] Comment on above: Order Comment: Speci men Type: BLOOD SPECIMENOrdering Facility: [facility] Address: [address] [place] [address] Performed By: #### 3 026-2, 10387-4, 04682-6, 2777-1, 3016-3, 3051-0 ####[facility] LABIA [id number] [place] [address] [place] ALT [Catalytic activity/Vol] 15 U/L Normal 7-38 [facility] Comment on above: Order Comment: Speci men Type: BLOOD SPECIMENOrdering Facility: [facility] Address: [address] [place] [address] Performed By: #### 3 026-2, 14537-0, 93657-3, 2777-1, 3016-3, 3051-0 ####[facility] LABIA [id number] [place] [id number] [place] Anion gap [Moles/Vol] 13 mmol/L Normal 8-15 [facility] Comment on above: Order Comment: Speci men Type: BLOOD SPECIMENOrdering Facility: [facility] Address: [address] [place], [place] [address] Performed By: #### 3 026-2, 11989-1, 93757-6, 2777-1, 3016-3, 3051-0 ####[facility] LABCLIA [id number] [place] [id number] [place] AST [Catalytic activity/Vol] 16 U/L Normal 13-35 [facility] Comment on above: Order Comment: Speci men Type: BLOOD SPECIMENOrdering Facility: [facility] Address: [address] [place] [address] Performed By: #### 3 026-2, 00340-0, 84402-2, 2777-1, 3016-3, 3051-0 ####[facility] LABCLIA [id number] [address] [address] [place] Bilirubin [Mass/Vol] 0.3 mg/dL Normal 0.2-1.3 [facility] Comment on above: Order Comment: Speci men Type: BLOOD SPECIMENOrdering Facility: [facility] Address: [address] [place] [address] Performed By: #### 3 026-2, 85940-1, 23063-5, 7-1, 3016-3, 3051-0 ####[facility] LABCLIA [id number] [place] [address] [place] Calcium [Mass/Vol] 9.4 mg/dL Normal 8.5-10.2 [facility] Comment on above: Order Comment: Speci men Type: BLOOD SPECIMENOrdering Facility: [facility] Address: [facility] [place] [address] Performed By: #### 3 026-2, 78813-8, 61430-2, 2777-1, 3016-3, 3051-0 ####[facility] LABCLIA [id number] [place] [id number] [place] Chloride [Moles/Vol] 107 mmol/L Normal 98-107 [facility] Comment on above: Order Comment: Speci men Type: BLOOD SPECIMENOrdering Facility: [facility] Address: [facility] [place] [address] Performed By: #### 3 026-2, 17168-8, 87387-7, 2777-1, 3016-3, 3051-0 ####[facility] LABCLIA [id number] [place] [address] [place] CO2 [Moles/Vol] 24 mmol/L Normal 22-30 [facility] Comment on above: Order Comment: Speci men Type: BLOOD SPECIMENOrdering Facility: [facility] Address: [address] [place] [address] Performed By: #### 3 026-2, 62010-2, 68289-8, 2777-1, 3016-3, 3051-0 ####[facility] LABCLIA [id number] [place] [address] [place] Creatinine [Mass/Vol] 1.08 mg/dL High 0.58-0.96 [facility] Comment on above: Order Comment: Speci men Type: BLOOD SPECIMENOrdering Facility: [facility] Address: [address] [place] [address] Performed By: #### 3 026-2, 93994-0, 61753-7, 2777-1, 3016-3, 3051-0 ####[facility] LABIA [id number] [address] Creatinine and Glomerular filtration rate.predicted panel (S/P/Bld) 63 mL/min/1.73m??? Normal >=60 [facility] Comment on above: Order Comment: Speci men Type: BLOOD SPECIMENOrdering Facility: [facility] Address: [address] [place] [address] Result Comment: Ninfa mated Glomerular Filtration Rate (eGFR) is calculated using the 2020 CKD-EPI creatinine equation. This equation utilizes serum creatinine, sex, and age as parameters. The creatinine assay has traceable calibration to isotope dilution-mass spectrometry. Refer to KDIGO guidelines for clinical interpretation. In patients with unstable renal function, e.g. those with acute kidney injury, the eGFR may not accurately reflect actual GFR. Performed By: #### 3 026-2, 57570-0, 76864-1, 2777-1, 3016-3, 3051-0 ####[facility] LABCLIA [id number] [address] [place] [address] [place] Glucose [Mass/Vol] 92 mg/dL Normal 74-99 [facility] Comment on above: Order Comment: Speci men Type: BLOOD SPECIMENOrdering Facility: [facility] Address: [address] [id number] Result Comment: The [place] Diabetes [employer] (ADA) provides guidance for cutoff values for fasting glucose and random glucose. The ADA defines fasting as no caloric intake for at least 8 hours. Fasting plasma glucose results between 100 to 125 mg/dL indicate increased risk for diabetes (prediabetes).Fasting plasma glucose results greater than or equal to 126 mg/dL meet the criteria for diagnosis of diabetes. In the absence of unequivocal hyperglycemia, results should be confirmed by repeat testing. In a patient with classic symptoms of hyperglycemia or hyperglycemic crisis, random plasma glucose results greater than or equal to 200 mg/dL meet the criteria for diagnosis of diabetes.Reference: Standards of Medical Care in Diabetes 2016, [place] [employer]. Diabetes Care. 2016.39(Suppl 1). Performed By: #### 3 026-2, 90061-5, 62698-7, 2777-1, 3016-3, 3051-0 ####[facility] LABIA [id number] [place] [id number] [place] Potassium [Moles/Vol] 4.0 mmol/L Normal 3.7-5.1 [facility] Comment on above: Order Comment: Speci men Type: BLOOD SPECIMENOrdering Facility: [facility] Address: [address] [place] [address] Performed By: #### 3 026-2, 24943-9, 02376-5, 2777-1, 3016-3, 3051-0 ####[facility] LABIA [id number] [place] [id number] [place] Protein [Mass/Vol] 6.6 g/dL Normal 6.3-8.0 [facility] Comment on above: Order Comment: Speci men Type: BLOOD SPECIMENOrdering Facility: [facility] Address: [address] [place], [place] [id number] Performed By: #### 3 026-2, 61885-9, 28485-6, 2777-1, 3016-3, 3051-0 ####[facility] [id number] [place] [id number] [place] Sodium [Moles/Vol] 144 mmol/L Normal 136-144 [facility] Comment on above: Order Comment: Speci men Type: BLOOD SPECIMENOrdering Facility: [facility] Address: [address] [place] [address] Performed By: #### 3 026-2, 20123-1, 67380-4, 2777-1, 3016-3, 3051-0 ####[facility] [id number] [place] [address] [place] Urea nitrogen [Mass/Vol] 16 mg/dL Normal 7-21 [facility] Comment on above: Order Comment: Speci men Type: BLOOD SPECIMENOrdering Facility: [facility] Address: [address] [place] [address] Performed By: #### 3 026-2, 41057-8, 76931-5, 2777-1, 3016-3, 3051-0 ####[facility] [id number] [place] [address] [place] HCG Preg Ur Qlon 06-19-2024 HCG ( test) Ql (U) Negative Normal Negative [facility] Comment on above: Order Comment: Speci men Type: URINE SPECIMENOrdering Facility: [facility] Address: [address] [place] [address] Result Comment: This test is intended to aid in the early detection of . Very dilute urine samples, as indicated by a low specific gravity, may not contain videotape sales representative levels of hCG. This test detects intact hCG only. This test does not reliably detect hCG degradation products, including free-beta subunit and beta-core fragment. Therefore, this test may show reduced reactivity in urine after 8 weeks gestation. A number of conditions other than , including trophoblastic disease and certain non-trophoblastic neoplasms cause elevated levels of hCG. As with any assay employing mouse antibodies, the possibility exists for interference by human anti-mouse antibodies (HAMA) in the specimen. The test provides a presumptive diagnosis for . Performed By: #### 2 106-3 ####[facility] LABCLIA [id number] [place] [address] [place] HISTORY PHYSICALon HISTORY PHYSICAL Normal [facility] Magnesium SerPl-mCncon 06-19 Magnesium [Mass/Vol] 2.5 mg/dL High 1.7-2.3 [facility] Comment on above: Order Comment: Speci men Type: BLOOD SPECIMENOrdering Facility: [facility] Address: [address] [place] [address] Performed By: #### 3 026-2, 39429-7, 06497-4, 2777-1, 3016-3, 3051-0 ####[facility] LABCLIA [id number] [place] [address] [place] NURSING PROGon 06-19-2024 NURSING PROG Normal [facility] PT panel Coag (PPP)on 2023 INR Coag (PPP) [Relative time] 0.9 {INR} Normal 0.9-1.3 [facility] Comment on above: Order Comment: Specmarvin cunningham Type: BLOOD SPECIMENOrdering Facility: [facility] Address: [address] [place] [address] Result Comment: Caro min K Antagonist (VKA) Therapeutic Range: INR 2 to 3 (Target INR of 2.5)Note: For patients treated with VKA drugs, such as warfarin, the [place] [employer] 2012 Guideline recommends a therapeutic INR range of 2 to 3 (target INR of 2.5). This recommendation includes high-risk patients with antiphospholipid syndrome with previous arterial or venous thromboembolism, current-generation mechanical or bioprosthetic aortic heart valve replacement.Note: Patients with mechanical aortic valve replacement and additional risk factors for thromboembolic events (atrial fibrillation, previous thromboembolism, LV dysfunction, hypercoagulable conditions) or an older generation mechanical AVR (i.e., ball in-Cage) or any mechanical MVR should have a INR therapeutic range of 2.5 to 3.5 (target INR of 3).Olvin GH, et al. Chest 2012, 141:7S-47SNishimura RA, et al. [facility] 2017, 70: 252-289 Performed By: #### 3 4528-0, 72025-2 ####[facility] LABIA [id number] [place] [address] [place] PT Coag (PPP) [Time] 10.0 s Normal 9.7-13.0 [facility] Comment on above: Order Comment: Speci men Type: BLOOD SPECIMENOrdering Facility: [facility] Address: [address] [place] [address] Performed By: #### 3 4528-0, 48984-5 ####[facility] [id number] [place] [address] [place] Phosphate SerPl-mCncon 06-19 Phosphate [Mass/Vol] 3.0 mg/dL Normal 2.7-4.8 [facility] Comment on above: Order Comment: Speci men Type: BLOOD SPECIMENOrdering Facility: [facility] Address: [address] [place] [address] Performed By: #### 3 026-2, 52427-7, 23483-3, 2777-1, 3016-3, 3051-0 ####[facility] LABR[facility] [id number] [place] [address] [place] T3Free SerPl-mCncon 06-19-20 24 Free T3 [Mass/Vol] 3.3 pg/mL Normal 2.3-4.1 [facility] Comment on above: Order Comment: Speci men Type: BLOOD SPECIMENOrdering Facility: [facility] Address: [address] [place] [address] Performed By: #### 3 026-2, 85160-4, 89244-2, 2777-1, 3016-3, 3051-0 ####[facility] LABCLIA [id number] [place] [id number] [place] T4 SerPl-mCncon 06-19-2024 T4 [Mass/Vol] 5.6 ug/dL Normal 5.5-10.2 [facility] Comment on above: Order Comment: Speci men Type: BLOOD SPECIMENOrdering Facility: [facility] Address: [address] [place] [address] Performed By: #### 3 026-2, 76090-8, 17226-5, 2777-1, 3016-3, 3051-0 ####[facility] LABIA [id number] [place] [address] [place] TOXICOLOGY SCREEN, ROUTINE U RINEon 06-19-2024 Amphetamines Confirm (U) [Mass/Vol] Negative Normal Negative [facility] Comment on above: Order Comment: Speci men Type: URINE SPECIMENOrdering Facility: [facility] Address: [address] [place] [address] Result Comment: Cuto ff threshold at 1000 ng/mL. Performed By: #### U TOX2 ####[facility] LABIA [id number] [place] [address] [place] BARBITURATES, URINE Negative Normal Negative [facility] Comment on above: Order Comment: Speci men Type: URINE SPECIMENOrdering Facility: [facility] Address: [address] [place] [address] Result Comment: Cuto ff threshold at 200 ng/mL. Performed By: #### U TOX2 ####[facility] LABIA [id number] [place] [address] [place] BENZODIAZEPINES, UR Negative Normal Negative [facility] Comment on above: Order Comment: Speci men Type: URINE SPECIMENOrdering Facility: [facility] Address: [address] [place] [address] Result Comment: Cuto ff threshold at 200 ng/mL. Performed By: #### U TOX2 ####[facility] LABCLIA [id number] [place] [address] [place] Cannabinoids Screen Ql (U) Negative Normal Negative [facility] Comment on above: Order Comment: Speci men Type: URINE SPECIMENOrdering Facility: [facility] Address: [address] [place] [address] Result Comment: Cuto ff threshold at 50 ng/mL. Performed By: #### U TOX2 ####[facility] LABCLIA [id number] [place] [address] [place] Cocaine Ql (U) Negative Normal Negative [facility] Comment on above: Order Comment: Speci men Type: URINE SPECIMENOrdering Facility: [facility] Address: [address] [place] [address] Result Comment: Cuto ff threshold at 300 ng/mL. Performed By: #### U TOX2 ####[facility] LABCLIA [id number] [place] [address] [place] Ethanol (U) [Mass/Vol] <11 Normal <11 [facility] Comment on above: Order Comment: Speci men Type: URINE SPECIMENOrdering Facility: [facility] Address: [address] [place] [address] Performed By: #### U TOX2 ####[facility] LABCLIA [id number] [place] [address] [place] Opiates Screen Ql (U) Negative Normal Negative [facility] Comment on above: Order Comment: Speci men Type: URINE SPECIMENOrdering Facility: [facility] Address: [address] [place] [address] Result Comment: Cuto ff threshold at 300 ng/mL. Performed By: #### U TOX2 ####[facility] LABCLIA [id number] [place] [address] [place] oxyCODONE cutoff Screen (U) [Mass/Vol] Negative Normal Negative [facility] Comment on above: Order Comment: Speci men Type: URINE SPECIMENOrdering Facility: [facility] Address: [address] [place] [address] Result Comment: Cuto ff threshold at 100 ng/mL. Performed By: #### U TOX2 ####[facility] LABCLIA [id number] [place] [address] [place] [facility] Phencyclidine Ql (U) Negative Normal Negative [facility] Comment on above: Order Comment: Speci men Type: URINE SPECIMENOrdering Facility: [facility] Address: [address] [place] [address] Result Comment: Cuto ff threshold at 25 ng/mL. Performed By: #### U TOX2 ####[facility] LABCLIA [id number] [place] [address] [place] TSH SerPl-aCncon 06-19-2024 TSH Qn 7.390 m[IU]/L High 0.270-4.200 [facility] Comment on above: Order Comment: Speci men Type: BLOOD SPECIMENOrdering Facility: [facility] Address: [address] [place] [address] Result Comment: If t he patient is , TSH reference range varies by gestational period:First Trimester (weeks 9-12): 0.180-2.990 mIU/LSecond Trimester: 0.110-3.980 mIU/LThird Trimester: 0.480-4.710 mIU/Tutu Mosquera et al. A Practical Approach for the Verifications and Determination of Site- and Trimester-Specific Reference Intervals for Thyroid Function tests in . Thyroid, 2019:29:3:412-420. Keith E, et al. 2017 Guidelines of the [place] Thyroid Association for the Diagnosis and Management of Thyroid Disease during and the . Thyroid, 2017:27:3:315-389. Performed By: #### 3 026-2, 33817-6, 98517-7, 2777-1, 3016-3, 3051-0 ####[facility] LABCLIA [id number] [place] [address] [place] Zonisamide SerPl-mCncon 11-1 Zonisamide [Mass/Vol] 4.7 ug/mL Low 10.0-40.0 [facility] Comment on above: Order Comment: Speci men Type: BLOOD SPECIMENOrdering Facility: [facility] Address: [address] [place] [address] Result Comment: This test was developed, and its performance characteristics determined by the [facility] Department of Pathology and Laboratory Medicine. It has not been cleared or approved by the FDA. The [facility] Department of Pathology and Laboratory Medicine is regulated under CLIA as qualified to perform high-complexity testing. This test is used for clinical purposes. It should not be regarded as investigational or for research. Performed By: #### 2 9620-2 ####[facility] LABCLIA [id number] [place] [address] [place] aPTT PPPon 06-19-2024 aPTT Coag (PPP) [Time] 28.4 s Normal 23.0-32.4 [facility] Comment on above: Order Comment: Speci men Type: BLOOD SPECIMENOrdering Facility: [facility] Address: [address] [place] [address] Performed By: #### 3 4528-0, 29827-8 ####[facility] LABCLIA [id number] [place] [address] [place] CNOVon 06-16-2024 CNOV Normal [facility] CNTHERAPYon 06-07-2024 CNTHERAPY Normal [facility] CNTHERAPYon 06-03-2024 CNTHERAPY Normal [facility] CNTHERAPYon 05-31-2024 CNTHERAPY Normal [facility] THERAPY NTon 05-31-2024 THERAPY NT Normal [facility] Zonisamide SerPl-mCncon 10-2 Zonisamide [Mass/Vol] <2.5 Low 10.0-40.0 [facility] Comment on above: Order Comment: Speci men Type: BLOOD SPECIMENOrdering Facility: [facility] Address: [address] [place] [address] Result Comment: This test was developed, and its performance characteristics determined by the [facility] Department of Pathology and Laboratory Medicine. It has not been cleared or approved by the FDA. The [facility] Department of Pathology and Laboratory Medicine is regulated under CLIA as qualified to perform high-complexity testing. This test is used for clinical purposes. It should not be regarded as investigational or for research. Performed By: #### 6 948-4, 48915-6 ####[facility] LABIA [id number] [place] [address] [place] lamoTRIgine SerPl-mCncon lamoTRIgine [Mass/Vol] <0.5 Low 1.0-13.0 [facility] Comment on above: Order Comment: Cassandra cunningham Type: BLOOD SPECIMENOrdering Facility: [facility] Address: [address] [place] [address] Result Comment: This test was developed, and its performance characteristics determined by the [facility] Department of Pathology and Laboratory Medicine. It has not been cleared or approved by the FDA. The [facility] Department of Pathology and Laboratory Medicine is regulated under CLIA as qualified to perform high-complexity testing. This test is used for clinical purposes. It should not be regarded as investigational or for research. Performed By: #### 6 948-4, 64265-3 ####[facility] LABIA [id number] [place] [address] [place] CNPNon 05-25-2024 CNPN Normal [facility] CNOVon 05-19-2024 CNOV Normal [facility] CNPNon 05-19-2024 CNPN Normal [facility] [id number] 2024 [id number] Normal [facility] CNTHERAPYon 2024 CNTHERAPY Normal [facility] THERAPY NTon 2024 THERAPY NT Normal [facility] CNPNon 04-27-2024 CNPN Normal [facility] CNCOon 04-21-2024 CNCO Letter Text Normal [facility] CNOVon 04-21-2024 CNOV Normal [facility] US LEG VEIN DVT UNL VAS LABo n 04-21-2024 US LEG VEIN DVT UNL VAS LAB Normal [facility] US Lower extremity veinon Non-Invasive Vascular Laboratory [facility] Lower Extremity Venous Duplex Unilateral - Left Date of service/time: 04/21/2024 11:43:58 AM Name: MS. SRI CHACON Date of : 1975 Age: 48 years Gender: F Clinical Indication Lower extremity pain. Left TECHNIQUE -------- A venous duplex ultrasound examination was performed, including grayscale imaging with compression maneuvers and color Doppler and spectral Doppler examination with augmentation maneuvers and response to respiration of the below mentioned veins. FINDINGS -------- RIGHT SIDE Common femoral vein Doppler: normal flow. LEFT SIDE Distal external iliac vein Doppler: normal flow. Compression: normal. Common femoral vein Doppler: normal flow. Compression: normal. Femoral vein Doppler: normal flow. Compression: normal. Popliteal vein Doppler: normal flow. Compression: normal. Posterior tibial veins Compression: normal. Peroneal veins Compression: normal. Great saphenous vein Compression: normal. Small saphenous vein Compression: normal. IMPRESSION RIGHT SIDE - DEEP VEINS Spontaneous and respirophasic flow noted in the common femoral vein. LEFT SIDE - DEEP VEINS Negative for acute deep vein thrombosis. LEFT SIDE - SUPERFICIAL VEINS Negative for superficial thrombophlebitis in the great saphenous vein and small saphenous vein. Technologist: Deborah Hanson RVT, RDMS Ordering physician: IRENE RANDOLPH Interpreting physician: JERMAIN Green DO Final See Link below for Image [facility] ANES POSTPROC EVALon 024 ANES POSTPROC EVAL Normal [facility] ANES PRE-OPon 04-07-2024 ANES PRE-OP Normal [facility] OPERATIVE NOon 04-07-2024 OPERATIVE NO Normal [facility] HISTORY PHYSICALon HISTORY PHYSICAL Normal [facility] CNPNon 04-01-2024 CNPN Normal [facility] CNOVon 03-30-2024 CNOV Normal [facility] XR Knee - left 4 Viewson IMPRESSION: Normal radiographs of both knees. Telecom Network Manager: GPX SoftwareAraceli Transcribe Date/Time: Feb 04 2024 6:29P Dictated by : STELLA HANSON MD This examination was interpreted and the report reviewed and electronically signed by: STELLA HANSON MD on Feb 04 2024 6:29PM [facility] DIVISION OF RADIOLOGY * * *Final Report* * * DATE OF EXAM: Feb 04 2024 8:47AM M2X 5202 - XR KNEE 4V AP/PA BOTH+LAT/RACQUEL LT / PROCEDURE REASON: Left knee pain, unspecified chronicity * * * * Physician Interpretation * * * * Examination: Both knees History: chronic knee pain, torn ligaments Left knee pain, unspecified chronicity Technique: XR KNEE 4V AP/PA BOTH+LAT/RACQUEL LT -- Comparison: No prior images are available for comparison at this time. FINDING/ RESULT: Images show normal appearing bones, joint spaces, and alignment bilaterally. No joint effusions. DIVISION OF RADIOLOGY Provider, [facility] - 02/04/2024 * * *Final Report* * * DATE OF EXAM: Feb 04 2024 8:47AM M2X 5202 - XR KNEE 4V AP/PA BOTH+LAT/RACQUEL LT / PROCEDURE REASON: Left knee pain, unspecified chronicity * * * * Physician Interpretation * * * * Examination: Both knees History: chronic knee pain, torn ligaments Left knee pain, unspecified chronicity Technique: XR KNEE 4V AP/PA BOTH+LAT/RACQUEL LT -- Comparison: No prior images are available for comparison at this time. FINDING/ RESULT: Images show normal appearing bones, joint spaces, and alignment bilaterally. No joint effusions. IMPRESSION IMPRESSION: Normal radiographs of both knees. Telecom Network Manager: [employer] Transcribe Date/Time: Feb 04 2024 6:29P Dictated by : STELLA HANSON MD This examination was interpreted and the report reviewed and electronically signed by: STELLA HANSON MD on Feb 04 2024 6:29PM EST [facility] Radiology Study observation (narrative) [facility] XR Knee - left 4 ViewsOrdere d By: [facility] Provider on 02-04-2024 [facility] Orthopedic Visit Reporton Orthopedic Visit Report [facility] [address] [place] [address] [address] [place] [address] OFFICE VISIT Date of Service: 12/21/23 MR#: [id number] Acct: [id number] Name: SRI CHACON Rep #: [id number] : 1975 Provider: Dr. Joni mcclellan MD Age/Sex: 48/F Location: [facility].MICHAEL Status: Signed Intake Vital Signs 09/19/23 22:50 12/10/23 15:08 Height 5 ft 1 in 5 ft 1 in Intake Visit Reasons: LEFT KNEE Chief Complaint: Is patient in pain?: Yes Pain scale (1-10): 9 Allergies aspirin Allergy (Verified 12/21/23 14:41) Rash codeine Allergy (Verified 12/21/23 14:41) Rash Fish Containing Products Allergy (Verified 12/21/23 14:41) Rash morphine Allergy (Verified 12/21/23 14:41) Rash Penicillins Allergy (Verified 12/21/23 14:41) Rash shellfish derived Allergy (Verified 12/21/23 14:41) Rash diphenhydramine HCl [From Benadryl] Adverse Reaction (Verified 12/21/23 14:41) Other promethazine HCl [From Phenergan] Adverse Reaction (Verified 12/21/23 14:41) Other Medications rimegepant 75 mg disintegrating tablet (Nurtec ODT) 75 mg PO Q48H 12/16/20 [History Confirmed 12/21/23] lamotrigine 200 mg tablet,extended release 24 hr 200 mg PO TID 03/18/21 [History Confirmed 12/21/23] trazodone 50 mg tablet 50 mg PO DAILY 04/05/21 [History Confirmed 12/21/23] sertraline 50 mg tablet (Zoloft) 50 mg PO DAILY 03/27/22 [History Confirmed 12/21/23] celecoxib 200 mg capsule 200 mg PO BID Pain #30 caps 09/14/23 [Rx Confirmed 12/21/23] PFSH Medical History History of epilepsy Migraines Tear of medial meniscus of left knee Surgical History H/O wrist surgery History of hysterectomy Social History Smoking Status: Never smoker substance use type: does not use HPI LEFT KNEE Details: This documentation accurately reflects the service provided and the decisions made by me, Dr. Joni Landis MD 12/21/23 6840. Part of today???s visit was documented by [ ], acting as scribe. SRI CHACON is a 48 year old F here today for follow-up left knee pain. The patient has failed a course now 6 weeks of 6 visits of physical therapy. They were also seeing the pain specialist with Dr. Pablo. They tried some injections but the patient has had really no relief with any forms of treatment. Still complaining about knee pain that was worse after an injury. Patient finds it difficult to be back at work they are not taking her back to work with the crutches and brace but the brace was helping a little bit. Ortho Exam General General: Yes no acute distress Neurologic: Yes alert and Yes oriented x3 Psychologic: Yes reasonable and appropriate Right Knee Patella Translation: 2 Left Knee Skin/Wound: Yes CDI, No ecchymosis, No erythema and No swelling Examination: Yes med jt line tenderness, Yes Lat jt line tenderness, Yes TTP inf pole patella, No Crepitus, Yes Pain with flexion, No Millicent's Test, No TTP Patellar tendon, No TTP Tibial tubercle, No TTP Pes Anserine and No Illiotibial band tenderness Quad Atrophy: No Stability: NML: Anterior Drawer, NML: Kindra, NML: Posterior Drawer, NML: Valgus 0, NML: Valgus 30, NML: Varus 0 and NML: Varus 30 Apprehension with Lateral Translation: No Patella Translation: 2 Patellar Tilt Normal: Yes Patella Grind: No KNEE: rom today 10 Coding Level of Care Code Off vis,est,level 3 Diagnoses Tear of medial meniscus of left knee S83.242A Malingering Z76.5 Acute pain of left knee M25.562 Chronicity: acute Assessment and Plan Assessment and Plan (1) Tear of medial meniscus of left knee: Status: Acute Plan: 48-year-old female with ongoing left knee pain. She has mild effusion could be from a secondary process like a rheumatoid arthritis or other problems that could be causing effusion of the knee but the patient refuses to accept those potential diagnosis and declined a consult to rheumatology. Patient is pretty adamant about going ahead with the surgery but I would be very cautious about proceeding with knee scope and medial meniscus repair vs partial meniscectomy in this patient and I would not feel comfortable doing the operation. I have a low suspicion that this would help the patient given my current exam and impression. The patient could try some Euflexxa injections I think that is most next reasonable thing to try so we will submit for insurance approval for that and also make her provide referral to [facility] Dr. Avilez as she really is desiring surgery. (2) Malingering: Status: Acute (3) Left knee pain: Status: Acute Qualifiers: Chronicity: acute Qualified Code(s): M25.562 - Pain in left knee 12/21/23 1506 Date (more content not included)... Normal [facility] PT D/C Summary (1)on 024 PT D/C Summary (1) [facility] Physical Therapy [address] [place] [address] / REHABILITATION SERVICES DISCHARGE SUMMARY MR#: [id number] Acct: [id number] Name: SRI CHACON Rep #: [id number] : 1975 48 From: Shan Minor DPT Referring Dr.: Dr. Joni Landis MD Status: R EG RCR Insurance: [facility] SELF PAY INSURANCE Discharge Summary D/C summary: It has been my pleasure to treat SRI CHACON referred by Dr. Joni Landis MD, with the diagnosis of L meniscal tear/ knee injruy for a total of 6 visit(s). Discharge Date: 12/17/23 Please see the following information for a summary of their discharge status. Subjective Subjective: Pt. is here today for her re assessment. Pt. reports having minimal to no relief with PT. She is still very limited with her ROM and unable to effectively bear wt. She reports that her knee wants to give out on her frequently. Pt. reports 9/10 pain pre treatment today. Pain Left Knee: Pain Intensity (Out of 10): 9 Overall Improvement % Improvement: 0 Objective Objective/Function: ROM: PROM in supine: 0-30-70deg. Pt. very guarded and painful with any mobility. Seated she was able to get to PROM of 0-20-80deg. GAIT: pt. is very hesitant to apply any weight to her L LE. She reports having to have the crutches or her leg gives out on her. MMT: in seated position. Pt. has 3-/5 in available range both of knee ext and flexion. She is able to complete a SLR, but maintains a large extensor lag. She has a constant 9/10 pain at rest and increases to 10/10 with any mobility. She has not tolerated therapy very well. I talked with her about really trying to work on her ROM. Pt. reports understanding, but reports being limited by severe pain. She reports having a nerve block without relief as well. She is to follow back up with physician next week to determine best course of action. Goals Goal 1:: Pt will achieve full knee ROM (0-0-120) Goal Progress: Not Progressing Goal 2:: Pt will demonstrate equal LE WB with STS Goal Progress: Not Progressing Goal 3:: Pt will demonstrate 4/5 global R hip and knee strength Goal Progress: Not Progressing Goal 4:: Pt will be able to amb. for >100ft with no AD Goal Progress: Not Progressing Plan Plan: Pt. to be DC from PT back to physician due to minimal benefit from PT. D/C Information d/c sentence: If there are questions or concerns regarding this patient's physical therapy, please feel free to call me at [phone]. Thank you for the referral of this patient. Sincerely, Shan Minor DPT Balance/Gait/Functional tests Balance/Special Test Scores Lower Extremity Functional Score: 11 Improvement % Improvement: 0 12/17/23 1501 CC: ANN Cabrera; Dr. Joni Landis MD CLS Signed Normal [facility] Inital Evaluation (1) - PTon 10-30-2023 Inital Evaluation (1) - PT [facility] Physical Therapy [facility] [address] [place] [address] / REHABILITATION SERVICES INITIAL EVALUATION MR#: [id number] Acct: [id number] Name: SRI CHACON Rep #: [id number] : 1975 48 From: Shan BUTLERT Referring Dr.: Dr. Joni Landis MD Status: R EG RCR Insurance: [facility] [employer]UR[employer] Patient's Visit Information Visit Information Visit Information: SRI CHACON is a 48 year old F referred to Physical Therapy by Dr. Joni Landis MD with a diagnosis of L meniscal tear/ knee injruy. Date of Evaluation: 10/29/23 Physical Therapist: Shan Minor DPT Visit Plan Frequency: 2x /Week Duration: 2 Months Plan: -low level quad strengthening -weight shifting/pre-gait act (working towards no AD, pt WBAT) -hamstring stretching -gait training with decreasing level of AD -standing balance act Pt requires high amount of education on pain and discomfort to expect, working on ROM, strength, and full WB, possible patellar tendon irritation ? (HEP: table HS stretch, quad set, LAQ, seated and supine heel slides, SLR, hip ABD) Subjective Subjective: Pt presents to PT with R knee pain, pt squatted down at work and felt some pain. Pt went in to work the next day and felt her knee blew when squatting down, meaning it gave out and she had to use her arms to pull herself up. Pt has been off of work since . Pt has hx of seizures, last one was 5 months ago. Denies any new numbness and tingling in RLE. Pt is unable to sleep a full night d/t pain. Went to pain management earlier this week, had an injection but felt it did not help. Denies any change with ice, heat, and pain medication. Pt using crutches all the time, sitting to shower, no stairs in house. 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 Major goals are to: prep for surgery, decreased pain Pain Left Knee: Pain Intensity (Out of 10): 9 Pain Intensity Range: 6 and 10 Objective Objective: ROM: lacking 30 deg ext, 90 deg flex (R WNL) MMT: L - knee ext 3/5 pain, knee flex 3+/5 pain, hip ABD 3/5, hip flex 3+/5 SLR: approx. 30 degrees knee ext lag PALPATION: TTP in HS, ant knee and patellar tendon, quadriceps tendon GAIT: antalgic with elia axillary crutches, using TTWB with knee bent constantly, but is WBAT Pt appears to hypersensitivity to pain, within the chronic phase of injury. Pt has limitations in ROM possibly exacerbated by hamstring tightness and amb. without an AD. Balance/Special Test Scores Lower Extremity Functional Score: 11 Goals Goal 1:: Pt will achieve full knee ROM (0-0-120) Goal Time Frame: 6-8 Weeks Goal 2:: Pt will demonstrate equal LE WB with STS Goal Time Frame: 2-4 Weeks Goal 3:: Pt will demonstrate 4/5 global R hip and knee strength Goal Time Frame: 6-8 Weeks Goal 4:: Pt will be able to amb. for >100ft with no AD Goal Time Frame: 6-8 Weeks Rehabilitation Potential Physical Therapy Diagnosis: Pt presents to PT with L knee pain, decreased tissue extensibility, weakness, and altered gait mechanics. Pt would benefit from skilled PT services to improve strength, gait mechanics, hamstring length, and overall ROM. Rehabilitation Potential: Fair Anticipated Interventions Patient/Client Instruction: Educate patient on: Condition, Plan of Care and Benefits of Fitness Program For the Purpose of:: To decrease pain, To increase ROM, To improve nutrient delivery to tissue, To improve muscle performance and motor function, To improve ability to perform ADL's, To increase tolerance to activity/condition/posi tion, To improve performance and independence with ADL's, To improve ability of physical actions for home/community/work/lei sure, To improve gait and locomotor functions, To improve health of tissue, To decrease soft tissue restriction, To increase flexibility/ROM, To improve endurance, To improve balance, To improve safety with gait, To assume or resume ADL's, To improve safety, To improve health and function, To foster healthy habits, To facilitate caregiver knowledge, To improve self management, To prevent re-injury, To improve ability to perform tasks related to life management and To improve tolerance to ADL's Therapeutic Exercise to Include: Strength training, Balance training, Flexibilty training, Gait and locomotor training, Neuromotor development, In an aquatic setting, Passive ROM and Active ROM For the Purpose of:: To decrease pain, To decrease swelling/inflammation, To increase ROM, To improve nutrient delivery to tissue, To increase oxygenation perfusion, To improve muscle performance and motor function, To increase tolerance to activity/condition/posi tion, To improve performance and independence with ADL's, To improve ability of physical actions for home/community/work/lei sure, To improve gait and locomotor functions, To improve health of tissue, T (more content not included)... [facility] TEST Normal [facility] Comment on above: Order Comment: [id number] URINE TOX RUN LOWEST TEST Result Comment: [id number] 6+OXYCODONE-BUND (ng/mL) DRUG RESULT SCREEN CUTOFF ____ Amphetamines,Urine Negative ng/mL 1000 Amphetamine test includes Amphetamine and Methamphetamine. Barbiturates Negative ng/mL 200 Benzodiazepines Negative ng/mL 200 Cannabinoid Negative ng/mL 20 Cocaine (Metab) Negative ng/mL 300 Opiates Negative ng/mL 300 Opiates test includes Codeine, Morphine, Hydromorphone, Hydrocodone. Oxycodone/Oxymorphone,Urine Negative ng/mL 300 Test includes Oxycodone and Oxymorphone. TESTING PERFORMED AT [facility]. ORIGINAL REPORT ON FILE IN LAB CONTAINS ADDITIONAL TEST SITE INFORMATION. Performed By: #### L 801.1541, L505.5000 #### [facility] Laboratory [address] [place], [address] Laboratory - Drug toxicology Ordered By: Gordy Ruiz on 10-20-2023 Amphetamines Ql (U) Negative <1000 ng/mL [facility] Benzodiazepines Ql (U) Negative < 200 ng/mL [facility] Cannabinoids Screen Ql (U) Negative < 50 ng/mL [facility] Cocaine Ql (U) Negative < 300 ng/mL [facility] Opiates Ql (U) Negative < 300 ng/mL [facility] No Panel InformationOrdered By: Gordy Ruiz on 10-20-2023 MDMA (Ecstasy) Screen Negative < 500 ng/mL [facility] Miscellaneous Test See comment [facility] Comment on above: [id number] 6+OXYCODONE-B UND (ng/mL) DRUG RESULT SCREEN CUTOFF____ Amphetamines,Urine Negative ng/mL 1000 Amphetamine test includes Amphetamine and Methamphetamine.Barbiturates Negative ng/mL 200Benzodiazepines Negative ng/mL 200Cannabinoid Negative ng/mL 20Cocaine (Metab) Negative ng/mL 300Opiates Negative ng/mL 300 Opiates test includes Codeine, Morphine, Hydromorphone, Hydrocodone. Oxycodone/Oxymorphone,Urine Negative ng/mL 300 Test includes Oxycodone and Oxymorphone. TESTING PERFORMED AT [facility]. ORIGINAL REPORT ON FILE IN LAB CONTAINS ADDITIONAL TEST SITE INFORMATION. Urine Barbiturates Screen Negative < 200 ng/mL [facility] Urine Drug Screen Comment [facility] Comment on above: CONFIRMATORY TESTING FOR ALL POSITIVE URINE DRUG SCREENRESULTS WILL ONLY BE SENT OUT UPON PHYSICIAN ORDER. VISTA Urine Drug Screen methods provide only preliminaryanalytical test results. A more specific alternate chemicalmethod must be used in order to obtain a confirmedanalytical result. Gas chromatography/mass spectrometery(GC/MS) is the preferred confirmatory method. Clinicalconsideration and professional judgement should be appliedto any drug of abuse test result, particularly whenpreliminary positive results are used. URINE TCA TESTING MUST BE ORDERED SEPARATELY. USE TESTMNEMONIC: [facility] Urine Methadone Screen Negative < 300 ng/mL [facility] Urine Drug Screen (VISTA)on 10-20-2023 AMPHETAMINES Negative Normal <1000 ng/mL [facility] Comment on above: Order Comment: UNK Performed By: #### L 801.1541, L505.5000 #### [facility] Laboratory [address] [facility] [address] BARBITIURATES Negative Normal < 200 ng/mL [facility] Comment on above: Order Comment: UNK Performed By: #### L 801.1541, L505.5000 #### [facility] Laboratory [address] [facility] [address] BENZODIAZIPINE Negative Normal < 200 ng/mL [facility] Comment on above: Order Comment: UNK Performed By: #### L 801.1541, L505.5000 #### [facility] [address] [facility] [address] COCAINE Negative Normal < 300 ng/mL [facility] Comment on above: Order Comment: UNK Performed By: #### L 801.1541, L505.5000 #### [facility] [address] [facility] [address] ECSTACY Negative Normal < 500 ng/mL [facility] Comment on above: Order Comment: UNK Performed By: #### L 801.1541, L505.5000 #### [facility] [address] [place], [address] METHADONE Negative Normal < 300 ng/mL [facility] Comment on above: Order Comment: UNK Performed By: #### L 801.1541, L505.5000 #### [facility] [address] [place], [address] OPIATES Negative Normal < 300 ng/mL [facility] Comment on above: Order Comment: UNK Performed By: #### L 801.1541, L505.5000 #### [facility] [address] [place], [address] PCP Negative Normal < 25 ng/mL [facility] Comment on above: Order Comment: UNK Performed By: #### L 801.1541, L505.5000 #### [facility] [address] [place], [address] THC Negative Normal < 50 ng/mL [facility] Comment on above: Order Comment: UNK Performed By: #### L 801.1541, L505.5000 #### [facility] [address] [place], [address] VISTA UDS PH 4 Normal [facility] Comment on above: Order Comment: UNK Performed By: #### L 801.1541, L505.5000 #### [facility] [address] [place], [address] Urine phencyclidine (PCP) de tectionOrdered By: Gordy Ruiz on 10-20-2023 Phencyclidine Ql (U) Negative < 25 ng/mL [facility] Orthopedic Visit Reporton Orthopedic Visit Report [facility] [address] [place] [address] [address] [place] [address] OFFICE VISIT Date of Service: 10/15/23 MR#: [id number] Acct: [id number] Name: SRI CHACON Rep #: [id number] : 1975 Provider: Dr. Joni mcclellan MD Age/Sex: 48/F Location: [facility]HAEL Status: Signed Intake Vital Signs 09/19/23 22:50 Height 5 ft 1 in Intake Visit Reasons: LEFT KNEE Chief Complaint: Accompanied by: Friend Is patient in pain?: Yes Pain scale (1-10): 10 Allergies aspirin Allergy (Verified 10/15/23 13:37) Rash codeine Allergy (Verified 10/15/23 13:37) Rash Fish Containing Products Allergy (Verified 10/15/23 13:37) Rash morphine Allergy (Verified 10/15/23 13:37) Rash Penicillins Allergy (Verified 10/15/23 13:37) Rash shellfish derived Allergy (Verified 10/15/23 13:37) Rash diphenhydramine HCl [From Benadryl] Adverse Reaction (Verified 10/15/23 13:37) Other promethazine HCl [From Phenergan] Adverse Reaction (Verified 10/15/23 13:37) Other Medications rimegepant 75 mg disintegrating tablet (Nurtec ODT) 75 mg PO Q48H 12/16/20 [History Confirmed 10/15/23] lamotrigine 200 mg tablet,extended release 24 hr 200 mg PO TID 03/18/21 [History Confirmed 10/15/23] trazodone 50 mg tablet 50 mg PO DAILY 04/05/21 [History Confirmed 10/15/23] sertraline 50 mg tablet (Zoloft) 50 mg PO DAILY 03/27/22 [History Confirmed 10/15/23] celecoxib 200 mg capsule 200 mg PO BID Pain #30 caps 09/14/23 [Rx Confirmed 10/15/23] [facility] Medical History (Updated 10/15/23 @ 13:43 by Joni Landis MD) History of epilepsy Migraines Tear of medial meniscus of left knee Surgical History H/O wrist surgery History of hysterectomy Social History Smoking Status: Never smoker substance use type: does not use HPI LEFT KNEE Details: This documentation accurately reflects the service provided and the decisions made by me, Dr. Joni Landis MD 10/15/23 0684. Part of today???s visit was documented by [ ], acting as scribe. SRI CHACON is a 48 year old F here today for L knee pain... no injury, just came on, tried an injection. not improving. whole knee and posteriorly. locking. popping. 'i cried' hard to sleep. 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 was gaving some problems before on the knee hard to get back up. tx - no brace. Ortho Exam General General: Yes no acute distress Neurologic: Yes alert and Yes oriented x3 Psychologic: Yes reasonable and appropriate Right Knee Patella Translation: 2 Left Knee Skin/Wound: Yes CDI, No ecchymosis, No erythema and No swelling Knee ROM: Yes ROM-Flexion 0-140 Examination: Yes med jt line tenderness, Yes Lat jt line tenderness, Yes TTP inf pole patella, No Crepitus, Yes Pain with flexion, No Millicent's Test, No TTP Patellar tendon, No TTP Tibial tubercle, No TTP Pes Anserine and No Illiotibial band tenderness Quad Atrophy: No Stability: NML: Anterior Drawer, NML: Kindra, NML: Posterior Drawer, NML: Valgus 0, NML: Valgus 30, NML: Varus 0 and NML: Varus 30 Apprehension with Lateral Translation: No Patella Translation: 2 Patellar Tilt Normal: Yes Patella Grind: No KNEE: nvi, very overt limp, normal alignment. Supplemental Info [facility] Imaging Services [address] [place] [address] Knee 4 or More Views MR#: [id number] Acct: [id number] Name: SRI CHACON Rep #: [id number] : 1975 F 48 From: Chavez Fajardo MD PCP: Jimenez Cabrera NP-C Status: PRE ER Study: Knee 4 or More Views Date of Exam: 09/19/23 Exam# [id number] Ordering [place]: [place] [id number] INDICATION: Pain, no known injury EXAMINATION/TECHNIQUE: X-RAY - LEFT XR Knee Complete 4 Views or More 4 VIEWS COMPARISON: 09/14/2023 FINDINGS: SOFT TISSUES: No soft tissue swelling or gas. Small suprapatellar effusion. BONES/JOINTS: No acute fracture. Joint spaces anatomically aligned. No sclerotic or destructive changes observed. RAD/Knee 4 or More Views IMPRESSION: No acute bony injury. Suprapatellar effusion. Electronically Signed: Chavez Fajardo MD at 23:42 EST Reading Location ID and State: [address] [place] [address] Tel , Service support , [facility] Imaging Services [address] [place] [address] Lower Ext Joint Only (Routine) MR#: [id number] Acct: [id number] Name: SRI CHACON (more content not included)... Normal [facility] Orthopedic Visit Reporton Orthopedic Visit Report [facility] [address] [place] [address] [address] [place] [address] OFFICE VISIT Date of Service: 10/12/23 MR#: [id number] Acct: [id number] Name: SRI CHACON Rep #: [id number] : 1975 Provider: Dr. Vince sung DO Age/Sex: 48/F Location: [facility]HAEL Status: Signed Intake Vital Signs 09/19/23 22:50 Height 5 ft 1 in Intake Visit Reasons: LEFT KNEE Chief Complaint: Is patient in pain?: Yes Pain scale (1-10): 10 Allergies aspirin Allergy (Verified 10/12/23 09:18) Rash codeine Allergy (Verified 10/12/23 09:18) Rash Fish Containing Products Allergy (Verified 10/12/23 09:18) Rash morphine Allergy (Verified 10/12/23 09:18) Rash Penicillins Allergy (Verified 10/12/23 09:18) Rash shellfish derived Allergy (Verified 10/12/23 09:18) Rash diphenhydramine HCl [From Benadryl] Adverse Reaction (Verified 10/12/23 09:18) Other promethazine HCl [From Phenergan] Adverse Reaction (Verified 10/12/23 09:18) Other Medications rimegepant 75 mg disintegrating tablet (Nurtec ODT) 75 mg PO Q48H 12/16/20 [History Confirmed 10/12/23] lamotrigine 200 mg tablet,extended release 24 hr 200 mg PO TID 03/18/21 [History Confirmed 10/12/23] trazodone 50 mg tablet 50 mg PO DAILY 04/05/21 [History Confirmed 10/12/23] sertraline 50 mg tablet (Zoloft) 50 mg PO DAILY 03/27/22 [History Confirmed 10/12/23] celecoxib 200 mg capsule 200 mg PO BID Pain #30 caps 09/14/23 [Rx Confirmed 10/12/23] PFSH Medical History History of epilepsy Migraines Surgical History H/O wrist surgery History of hysterectomy Social History Smoking Status: Never smoker substance use type: does not use HPI LEFT KNEE Details: This documentation accurately reflects the service provided and the decisions made by me, Dr. Vince Wall, DO 10/12/23 0803. Part of today???s visit was documented by Tangela Carrero ATC, acting as scribe. SRI CHACON is a 48 year old F here today for continued left knee pain: To recall from last visit 09/28/2023. Xrays and MRI was reviewed. The MRI showed a possible small root tear of her meniscus along with softening of the cartilage . I did not think this would explain her symptoms ,her pain is out of proportion she requested pain medication and requested to be off work. Due to her hypersensitivity to light touch I recommend uric acid test -this was done and was within normal range We did discuss and perform a left knee intra-articular steroid injection. She was already on max dose of Celebrex 200 mg twice a day. I explained to her I cannot provide her with narcotic pain medication I did write her a return to work in 1 week any further extension will need to come from her PCP. I did not feel orthopedic surgical intervention is warranted or will help her. 10/12/23 Patient had a steroid injection to left knee on her last visit 09/28/2023. She comes in today ambulating with crutches and she states she uses these all of the time. Patient states that the injection did not give her any relief. She states it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 CMP, ADIFF, TSH, MG, PBNP #### [address] [address] GFR 100 ml/min/1.73sqm Normal [facility] ([place]) Comment on above: Result Comment: GFR Population mean for , Non- Americans Ages 20-29 = 116 mL/min/1.73 sq.m. Ages 30-39 = 107 mL/min/1.73 sq.m. Ages 40-49 = 99 mL/min/1.73 sq.m. Ages 50-59 = 93 mL/min/1.73 sq.m. Ages 60-69 = 85 mL/min/1.73 sq.m. Ages 70+ = 75 mL/min/1.73 sq.m. Chronic Kidney Disease: Less than 60 mL/min/1.73 square meters End Stage Renal Disease: Less than 15 mL/min/1.73 square meters Performed By: #### A TRACEY, GFR, CBC, LIPID, CMP, ADIFF, TSH, MG, PBNP #### [address] [address] .NEUABSon 03-19-2023 Neutrophil, Absolute 4.5 10 3/mcL Normal 2.9-6.2 [facility] [facility] ([place]) Comment on above: Performed By: #### A TRACEY, GFR, CBC, LIPID, CMP, ADIFF, TSH, MG, PBNP #### [address] [address] CBCon 03-19-2023 Erythrocyte distribution width (RBC) [Ratio] 12.7 % Normal 11.5-14.5 [facility] ([place]) Comment on above: Performed By: #### A TRACEY, GFR, CBC, LIPID, CMP, ADIFF, TSH, MG, PBNP #### [address] [address] Hematocrit (Bld) [Volume fraction] 39.4 % Normal 37.0-47.0 [facility] ([place]) Comment on above: Performed By: #### A TRACEY, GFR, CBC, LIPID, CMP, ADIFF, TSH, MG, PBNP #### [address] [address] Hgb 13.4 G/dL Normal 12.0-16.0 [facility] ([place]) Comment on above: Performed By: #### A TRACEY, GFR, CBC, LIPID, CMP, ADIFF, TSH, MG, PBNP #### [address] [address] MCH (RBC) [Entitic mass] 29.2 pg Normal 27.0-31.2 [facility] ([place]) Comment on above: Performed By: #### A TRACEY, GFR, CBC, LIPID, CMP, ADIFF, TSH, MG, PBNP #### [address] [address] MCHC 34.1 G/dL Normal 33.0-37.0 [facility] ([place]) Comment on above: Performed By: #### A TRACEY, GFR, CBC, LIPID, CMP, ADIFF, TSH, MG, PBNP #### [address] [address] MCV (RBC) [Entitic vol] 85.5 fL Normal 80.0-94.0 [facility] ([place]) Comment on above: Performed By: #### A TRACEY, GFR, CBC, LIPID, CMP, ADIFF, TSH, MG, PBNP #### [address] [address] Platelet 246 10 3/mcL Normal 130-400 [facility] ([place]) Comment on above: Performed By: #### A TRACEY, GFR, CBC, LIPID, CMP, ADIFF, TSH, MG, PBNP #### [place] [address] Platelet mean volume (Bld) [Entitic vol] 7.5 fL Normal 7.4-10.4 [facility] ([place]) Comment on above: Performed By: #### A TRACEY, GFR, CBC, LIPID, CMP, ADIFF, TSH, MG, PBNP #### [place] [address] RBC 4.61 10 6/mcL Normal 4.20-5.40 [facility] ([place]) Comment on above: Performed By: #### A TRACEY, GFR, CBC, LIPID, CMP, ADIFF, TSH, MG, PBNP #### [place] [address] WBC 7.6 10 3/mcL Normal 4.6-10.8 [facility] ([place]) Comment on above: Performed By: #### A TRACEY, GFR, CBC, LIPID, CMP, ADIFF, TSH, MG, PBNP #### [place] [id number] CMPon 03-19-2023 Albumin Level 3.8 G/dL Normal 3.5-5.0 [facility] ([place]) Comment on above: Performed By: #### A TRACEY, GFR, CBC, LIPID, CMP, ADIFF, TSH, MG, PBNP #### [place] [id number] Albumin/Globulin [Mass ratio] 1.2 {ratio} Normal 1.1-2.5 [facility] ([place]) Comment on above: Performed By: #### A TRACEY, GFR, CBC, LIPID, CMP, ADIFF, TSH, MG, PBNP #### [place] [id number] ALP [Catalytic activity/Vol] 76 U/L Normal 40-135 [facility] ([place]) Comment on above: Performed By: #### A TRACEY, GFR, CBC, LIPID, CMP, ADIFF, TSH, MG, PBNP #### [address] [address] ALT [Catalytic activity/Vol] 20 U/L Normal 14-59 [facility] ([place]) Comment on above: Performed By: #### A TRACEY, GFR, CBC, LIPID, CMP, ADIFF, TSH, MG, PBNP #### [address] [address] AST [Catalytic activity/Vol] 15 U/L Normal 10-40 [facility] ([place]) Comment on above: Performed By: #### A TRACEY, GFR, CBC, LIPID, CMP, ADIFF, TSH, MG, PBNP #### [address] [address] Bili Total 0.4 mg/dL Normal 0.2-1.0 [facility] ([place]) Comment on above: Result Comment: Use of this assay is not recommended for patients undergoing treatment with eltrombopag due to the potential for falsely elevated results. Performed By: #### A TRACEY, GFR, CBC, LIPID, CMP, ADIFF, TSH, MG, PBNP #### [address] [address] BUN/Creatinine Ratio 21 ratio Normal 7-27 [facility] ([place]) Comment on above: Performed By: #### A TRACEY, GFR, CBC, LIPID, CMP, ADIFF, TSH, MG, PBNP #### [address] [address] Calcium [Mass/Vol] 9.0 mg/dL Normal 8.4-10.2 [facility] ([place]) Comment on above: Performed By: #### A TRACEY, GFR, CBC, LIPID, CMP, ADIFF, TSH, MG, PBNP #### [address] [address] Chloride [Moles/Vol] 106 mmol/L Normal 98-107 [facility] ([place]) Comment on above: Performed By: #### A TRACEY, GFR, CBC, LIPID, CMP, ADIFF, TSH, MG, PBNP #### [address] [address] CO2 [Moles/Vol] 28 mmol/L Normal 22-29 [facility] ([place]) Comment on above: Performed By: #### A TRACEY, GFR, CBC, LIPID, CMP, ADIFF, TSH, MG, PBNP #### [address] [address] Creatinine [Mass/Vol] 0.75 mg/dL Normal 0.55-1.02 [facility] ([place]) Comment on above: Performed By: #### A TRACEY, GFR, CBC, LIPID, CMP, ADIFF, TSH, MG, PBNP #### [address] [address] Electrolyte Balance 9.0 mEq/L Normal 4.0-15.0 [facility] ([place]) Comment on above: Performed By: #### A TRACEY, GFR, CBC, LIPID, CMP, ADIFF, TSH, MG, PBNP #### [address] [address] Globulin 3.2 G/dL Normal [facility] ([place]) Comment on above: Performed By: #### A TRACEY, GFR, CBC, LIPID, CMP, ADIFF, TSH, MG, PBNP #### [address] [address] Glucose [Mass/Vol] 85 mg/dL Normal 70-105 [facility] ([place]) Comment on above: Performed By: #### A TRACEY, GFR, CBC, LIPID, CMP, ADIFF, TSH, MG, PBNP #### [address] [address] Potassium [Moles/Vol] 4.1 mmol/L Normal 3.5-5.1 [facility] ([place]) Comment on above: Performed By: #### A TRACEY, GFR, CBC, LIPID, CMP, ADIFF, TSH, MG, PBNP #### [address] [address] Sodium [Moles/Vol] 143 mmol/L Normal 136-145 [facility] ([place]) Comment on above: Performed By: #### A TRACEY, GFR, CBC, LIPID, CMP, ADIFF, TSH, MG, PBNP #### [address] [address] Total Protein 7.0 G/dL Normal 6.4-8.2 [facility] ([place]) Comment on above: Performed By: #### A TRACEY, GFR, CBC, LIPID, CMP, ADIFF, TSH, MG, PBNP #### [address] [address] Urea nitrogen [Mass/Vol] 16 mg/dL Normal 7-18 [facility] ([place]) Comment on above: Performed By: #### A TRACEY, GFR, CBC, LIPID, CMP, ADIFF, TSH, MG, PBNP #### [address] [address] LABORATORYOrdered By: SYSTEM SYSTEM on 03-19-2023 Albumin BCP dye [Mass/Vol] 3.8 G/dL Invalid Interpretation Code 3.5 - 5.0 G/dL AO ADM SS Albumin/Globulin [Mass ratio] 1.2 {ratio} Invalid Interpretation Code 1.1 - 2.5 ratio AO ADM SS ALP [Catalytic activity/Vol] 76 U/L Invalid Interpretation Code 40 - 135 U/L AO ADM SS ALT With P-5'-P [Catalytic activity/Vol] 20 U/L Invalid Interpretation Code 14 - 59 U/L AO ADM SS AST With P-5'-P [Catalytic activity/Vol] 15 U/L Invalid Interpretation Code 10 - 40 U/L AO ADM SS Basophil, Absolute 0.0 103/mcL Invalid Interpretation Code 0.0 - 0.2 10^3/mcL AO Workflow SS Basophils/100 WBC (Bld) 0.5 % Invalid Interpretation Code 0.0 - 2.5 % AO Workflow SS Bilirubin [Mass/Vol] 0.4 mg/dL Invalid Interpretation Code 0.2 - 1.0 mg/dL AO ADM SS Comment on above: Interpretive Data: U se of this assay is not recommended for patients undergoing treatment with eltrombopag due to the potential for falsely elevated results. Calcium [Mass/Vol] 9.0 mg/dL Invalid Interpretation Code 8.4 - 10.2 mg/dL AO ADM SS Chloride [Moles/Vol] 106 mmol/L Invalid Interpretation Code 98 - 107 mmol/L AO ADM SS CO2 [Moles/Vol] 28 mmol/L Invalid Interpretation Code 22 - 29 mmol/L AO ADM SS Creatinine [Mass/Vol] 0.75 mg/dL Invalid Interpretation Code 0.55 - 1.02 mg/dL AO ADM SS Electrolyte Balance 9.0 mEq/L Invalid Interpretation Code 4.0 - 15.0 mEq/L AO ADM SS Eosinophil, Absolute 0.6 103/mcL Invalid Interpretation Code 0.0 - 0.4 10^3/mcL AO Workflow SS Eosinophils/100 WBC (Bld) 7.5 % Invalid Interpretation Code 0.0 - 7.0 % AO Workflow SS Erythrocyte distribution width (RBC) [Ratio] 12.7 % Invalid Interpretation Code 11.5 - 14.5 % AO Workflow SS GFR/1.73 sq M.predicted among blacks MDRD (S/P/Bld) [Vol rate/Area] 100 ml/min/1.73sqm Invalid Interpretation Code AO Chemistry S Comment on above: Interpretive Data: GFR Population mean for , Non- Americans Ages 20-29 = 116 mL/min/1.73 sq.m. Ages 30-39 = 107 mL/min/1.73 sq.m. Ages 40-49 = 99 mL/min/1.73 sq.m. Ages 50-59 = 93 mL/min/1.73 sq.m. Ages 60-69 = 85 mL/min/1.73 sq.m. Ages 70+ = 75 mL/min/1.73 sq.m. Chronic Kidney Disease: Less than 60 mL/min/1.73 square meters End Stage Renal Disease: Less than 15 mL/min/1.73 square meters GFR/1.73 sq M.predicted among non-blacks MDRD (S/P/Bld) [Vol rate/Area] 82 ml/min/1.73sqm Invalid Interpretation Code AO Chemistry S Comment on above: Interpretive Data: GFR Population mean for , Non- Americans Ages 20-29 = 116 mL/min/1.73 sq.m. Ages 30-39 = 107 mL/min/1.73 sq.m. Ages 40-49 = 99 mL/min/1.73 sq.m. Ages 50-59 = 93 mL/min/1.73 sq.m. Ages 60-69 = 85 mL/min/1.73 sq.m. Ages 70+ = 75 mL/min/1.73 sq.m. Chronic Kidney Disease: Less than 60 mL/min/1.73 square meters End Stage Renal Disease: Less than 15 mL/min/1.73 square meters Globulin 3.2 G/dL Invalid Interpretation Code AO ADM SS Glucose [Mass/Vol] 85 mg/dL Invalid Interpretation Code 70 - 105 mg/dL AO ADM SS Hematocrit (Bld) [Volume fraction] 39.4 % Invalid Interpretation Code 37.0 - 47.0 % AO Workflow SS Hemoglobin (Bld) [Mass/Vol] 13.4 G/dL Invalid Interpretation Code 12.0 - 16.0 G/dL AO Workflow SS Lymphocyte, Absolute 1.8 103/mcL Invalid Interpretation Code 0.8 - 3.9 10^3/mcL AO Workflow SS Lymphocytes/100 WBC (Bld) 24.2 % Invalid Interpretation Code 10.0 - 50.0 % AO Workflow SS Magnesium [Mass/Vol] 2.1 mg/dL Invalid Interpretation Code 1.8 - 2.4 mg/dL AO ADM SS MCH (RBC) [Entitic mass] 29.2 pg Invalid Interpretation Code 27.0 - 31.2 pg AO Workflow SS MCHC 34.1 G/dL Invalid Interpretation Code 33.0 - 37.0 G/dL AO Workflow SS MCV (RBC) [Entitic vol] 85.5 fL Invalid Interpretation Code 80.0 - 94.0 fL AO Workflow SS Monocyte, Absolute 0.7 103/mcL Invalid Interpretation Code 0.2 - 1.0 10^3/mcL AO Workflow SS Monocytes/100 WBC (Bld) 8.8 % Invalid Interpretation Code 1.7 - 13.0 % AO Workflow SS Natriuretic peptide.B prohormone N-Terminal [Mass/Vol] 69 pg/mL Invalid Interpretation Code 0 - 125 pg/mL AO ADM SS Comment on above: Interpretive Data: N T-proBNP results of less than 300 pg/mL effectively rules out acute congestive heart failure with 99% negative predictive value. Neutrophil, Absolute 4.5 103/mcL Invalid Interpretation Code 2.9 - 6.2 10^3/mcL AO Workflow SS Neutrophils/100 WBC (Bld) 59.0 % Invalid Interpretation Code 37.0 - 80.0 % AO Workflow SS Platelet mean volume (Bld) [Entitic vol] 7.5 fL Invalid Interpretation Code 7.4 - 10.4 fL AO Workflow SS Platelets (Bld) [#/Vol] 246 103/mcL Invalid Interpretation Code 130 - 400 10^3/mcL AO Workflow SS Potassium [Moles/Vol] 4.1 mmol/L Invalid Interpretation Code 3.5 - 5.1 mmol/L AO ADM SS Protein [Mass/Vol] 7.0 G/dL Invalid Interpretation Code 6.4 - 8.2 G/dL AO ADM SS RBC (Bld) [#/Vol] 4.61 106/mcL Invalid Interpretation Code 4.20 - 5.40 10^6/mcL AO Workflow SS Sodium [Moles/Vol] 143 mmol/L Invalid Interpretation Code 136 - 145 mmol/L AO ADM SS TSH Qn 5.16 m[IU]/L Invalid Interpretation Code 0.36 - 3.74 mcIU/mL AO ADM SS Urea nitrogen [Mass/Vol] 16 mg/dL Invalid Interpretation Code 7 - 18 mg/dL AO ADM SS Urea nitrogen/Creatinine [Mass ratio] 21 ratio Invalid Interpretation Code 7 - 27 ratio AO ADM SS WBC (Bld) [#/Vol] 7.6 103/mcL Invalid Interpretation Code 4.6 - 10.8 10^3/mcL AO Workflow SS LABORATORYOrdered By: Marilynn Murry on 03-19-2023 Cholesterol [Mass/Vol] 199 mg/dL Invalid Interpretation Code 0 - 200 mg/dL AO ADM SS Comment on above: Interpretive Data: C holesterol Reference Interval: Less than 200 Desirable 200-239 Borderline high risk 240 and above High risk Cholesterol in HDL [Mass/Vol] 50 mg/dL Invalid Interpretation Code 40 - 60 mg/dL AO ADM SS Cholesterol in LDL [Mass/Vol] 126 mg/dL Invalid Interpretation Code 0 - 130 mg/dL AO ADM SS Triglyceride [Mass/Vol] 115 mg/dL Invalid Interpretation Code 0 - 150 mg/dL AO ADM SS Comment on above: Interpretive Data: T riglyceride Reference Interval: Less than 150 Normal 150-199 Borderline high risk 200-499 High risk 500 or higher Very high risk LIPIDon 03-19-2023 Cholesterol [Mass/Vol] 199 mg/dL Normal 0-200 [facility] ([place]) Comment on above: Result Comment: Chol esterol Reference Interval: Less than 200 Desirable 200-239 Borderline high risk 240 and above High risk Performed By: #### A TRACEY, GFR, CBC, LIPID, CMP, ADIFF, TSH, MG, PBNP #### [address] [address] Cholesterol in HDL [Mass/Vol] 50 mg/dL Normal 40-60 [facility] ([place]) Comment on above: Performed By: #### A TRACEY, GFR, CBC, LIPID, CMP, ADIFF, TSH, MG, PBNP #### [address] [address] Cholesterol in LDL [Mass/Vol] 126 mg/dL Normal 0-130 [facility] ([place]) Comment on above: Performed By: #### A TRACEY, GFR, CBC, LIPID, CMP, ADIFF, TSH, MG, PBNP #### [address] [address] Triglyceride [Mass/Vol] 115 mg/dL Normal 0-150 [facility] ([place]) Comment on above: Result Comment: Trig lyceride Reference Interval: Less than 150 Normal 150-199 Borderline high risk 200-499 High risk 500 or higher Very high risk Performed By: #### A TRACEY, GFR, CBC, LIPID, CMP, ADIFF, TSH, MG, PBNP #### [address] [address] MGon 03-19-2023 Magnesium [Mass/Vol] 2.1 mg/dL Normal 1.8-2.4 [facility] ([place]) Comment on above: Performed By: #### A TRACEY, GFR, CBC, LIPID, CMP, ADIFF, TSH, MG, PBNP #### [address] [address] PBNPon 03-19-2023 Natriuretic peptide B (Bld) [Mass/Vol] 69 pg/mL Normal 0-125 [facility] ([place]) Comment on above: Result Comment: NT-p roBNP results of less than 300 pg/mL effectively rules out acute congestive heart failure with 99% negative predictive value. Performed By: #### A TRACEY, GFR, CBC, LIPID, CMP, ADIFF, TSH, MG, PBNP #### [place] [address] [place], [place] [address] TSHon 03-19-2023 TSH Qn 5.16 m[IU]/L High 0.36-3.74 [facility] ([place]) Comment on above: Performed By: #### A TRACEY, GFR, CBC, LIPID, CMP, ADIFF, TSH, MG, PBNP #### [place] [address] [place], [place] [address] XR TIBIA FIBULA 2V AP/LAT RI GHTon 02-17-2023 [facility] XR ANKLE GENERAL 3V AP/LAT/O BL RIGHTon 02-11-2023 [facility] LAMOTRIGINEon 01-03-2023 lamoTRIgine [Mass/Vol] 0.9 ug/mL Low 1.0 - 13.0 ug/mL [facility] ZONISAMIDEon 01-03-2023 Zonisamide [Mass/Vol] Low 10.0 - 40.0 ug/mL [facility] VITAMIN D 25 HYDROXYon 01-01 25-hydroxyvitamin D3 [Mass/Vol] 12.2 ng/mL Low 31.0 - 80.0 ng/mL [facility] XR HAND GENERAL 3V PA/LAT/OB L RIGHTon 05-06-2022 [facility] XR Hand - right PA and Later al and Obliqueon 05-06-2022 IMPRESSION: 1. 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 2. 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 [employer] Network Manager: PSCB Transcribe Date/Time: May 06 2022 10:57A Dictated by : KAYLAN GILMAN MD This examination was interpreted and the report reviewed and electronically signed by: KAYLAN GILMAN MD on May 06 2022 11:01AM [facility] DIVISION OF RADIOLOGY * * *Final Report* * * DATE OF EXAM: May 06 2022 10:54AM WOX 5346 - XR HAND 3V PA/LAT/OBL RT / PROCEDURE REASON: Right hand pain * * * * Physician Interpretation * * * * CLINICAL INDICATION: Pain TECHNIQUE: 3 view radiographic study of the right hand COMPARISON: Radiograph dated August 07, 2021 FINDINGS: Postsurgical changes from resection of the trapezium. Expansile lucent lesion with endosteal scalloping within the proximal to mid first metacarpal bone most suggestive of an enchondroma. No new osseous abnormality identified. DIVISION OF RADIOLOGY Provider, Madelaine Bibi [facility] - 05/06/2022 * * *Final Report* * * DATE OF EXAM: May 06 2022 10:54AM WOX [id number] - XR HAND 3V PA/LAT/OBL RT / PROCEDURE REASON: Right hand pain * * * * Physician Interpretation * * * * CLINICAL INDICATION: Pain TECHNIQUE: 3 view radiographic study of the right hand COMPARISON: Radiograph dated August 07, 2021 FINDINGS: Postsurgical changes from resection of the trapezium. Expansile lucent lesion with endosteal scalloping within the proximal to mid first metacarpal bone most suggestive of an enchondroma. No new osseous abnormality identified. IMPRESSION IMPRESSION: 1. 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 2. 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 Tele[employer] Network Manager: FLORENCE Transcribe Date/Time: May 06 2022 10:57A Dictated by : KAYLAN GILMAN MD This examination was interpreted and the report reviewed and electronically signed by: KAYLAN GILMAN MD on May 06 2022 11:01AM EST [facility] Radiology Study observation (narrative) [facility] XR Hand - right PA and Later al and ObliqueOrdered By: Ccf Provider on 05-06-2022 [facility] Basophil percentageon 2021 Bilirubin [Mass/Vol] 0.50 mg/dL 0.20-1.00 [facility] Work Phone: Comment on above: For patients on eltr ombopag therapy, use of Dimension Wren TBIL is not recommended. Chloride [Moles/Vol] 109 mmol/L 98-107 [facility] Work Phone: Glucose [Mass/Vol] 118 mg/dL 74-[address] [facility] Work Phone: [phone] Comment on above: Fasting Glucose resu lt from 100 to 125 mg/dL suggests IMPAIRED HOMEOSTASIS per A.D.A. criteria. Potassium [Moles/Vol] 3.8 mmol/L 3.5-5.1 [facility] Work Phone: [phone] Protein [Mass/Vol] 7.2 g/dL 6.4-8.[address] [facility] Work Phone: [phone] Sodium [Moles/Vol] 138 mmol/L 136-[address] [facility] Work Phone: [phone] WBC (Bld) [#/Vol] 7.3 10*3/uL 4.4-11.[address] [facility] Work Phone: [phone] Blood erythrocytes count (nu mber/volume)on 03-27-2022 RBC (Bld) [#/Vol] 4.64 10*6/uL 4.2-5.4 [facility] Work Phone: [phone] Blood hemoglobin measurement (mass/volume)on 03-27-2022 Hemoglobin (Bld) [Mass/Vol] 13.6 g/dL 12.0-15.0 [facility] Work Phone: [phone] Blood platelet mean volumeon 03-27-2022 Platelet mean volume (Bld) [Entitic vol] 8.9 fL 6.2-12.0 [facility] Work Phone: [phone] Determination of erythrocyte mean corpuscular volume (MCV)on 03-27-2022 MCV (RBC) [Entitic vol] 87.1 fL 81-99 [facility] Work Phone: [phone] Hematocrit Auto (Bld) [Volum e fraction]on 03-27-2022 Hematocrit (Bld) [Volume fraction] 40.4 % 37-47 [facility] Work Phone: [phone] Laboratory - Chemistry and C hemistry - challengeon 03-27-2022 ALP [Catalytic activity/Vol] 75 U/L 45-117 [facility] Work Phone: [phone] ALT [Catalytic activity/Vol] 16 U/L 13-56 [facility] Phone: [phone] CO2 [Moles/Vol] 23.0 mmol/L 21.0-32.0 [facility] Work Phone: [phone] Globulin (S) [Mass/Vol] 3.8 g/dL 2.2-4.2 [facility] Work Phone: [phone] Urea nitrogen/Creatinine [Mass ratio] 15.0 mg/mg 10-20 [facility] Work Phone: [phone] Laboratory - Hematology and Cell countson 03-27-2022 Erythrocyte distribution width (RBC) [Entitic vol] 39.6 fL 35.1-43.9 [facility] Work Phone: [phone] Erythrocyte distribution width (RBC) [Ratio] 12.5 % 11.6-14.6 [facility] Work Phone: [phone] MCH (RBC) [Entitic mass] 29.3 pg 27.0-32.0 [facility] Work Phone: [phone] MCHC Auto (RBC) [Mass/Vol]on 03-27-2022 MCHC (RBC) [Mass/Vol] 33.7 g/dL 32-36 [facility] Work Phone: No Panel Informationon 03-27 Estimated Creatinine Clearance Calc 65.60 ml/min [facility] Work Phone: [phone] Estimated GFR (MDRD) Amer 98 mL/min >60 [facility] Work Phone: [phone] Comment on above: GFR Calc Estimated GFR (MDRD) Non-Af Amer 81 mL/min >60 [facility] Work Phone: [phone] Comment on above: Non- GFR Calc Platelets bldon 03-27-2022 Platelets (Bld) [#/Vol] 245 10*3/uL 150-450 [facility] Work Phone: [phone] Serum or plasma albumin dennis urement (mass/volume)on 03-27-2022 Albumin [Mass/Vol] 3.4 g/dL 3.2-5.[address] [facility] Work Phone: Serum or plasma albumin/glob ulin mass ratioon 03-27-2022 Albumin/Globulin [Mass ratio] 0.9 {ratio} 0.9-2.4 [facility] Work Phone: Serum or plasma calcium dennis urement (mass/volume)on 03-27-2022 Calcium [Mass/Vol] 9.1 mg/dL 8.5-10.1 [facility] [place] Phone: [phone] Serum or plasma creatinine m easurement (mass/volume)on 03-27-2022 Creatinine [Mass/Vol] 0.80 mg/dL 0.55-1.02 [facility] Work Phone: Comment on above: The validity of the calculated GFR & GFRAA in patients over 70 years has not been determined. Clinical correlation is essential. Serum or plasma urea nitroge n measurement (mass/volume)on 03-27-2022 Urea nitrogen [Mass/Vol] 12 mg/dL 7-18 [facility] Work Phone: Thin prep Papanicolaou smear with manual screeningon 03-27-2022 Thin prep Papanicolaou smear with manual screening 13 U/L 15-37 [facility] Work Phone: Thin prep Papanicolaou smear with manual screening 6 5-15 [facility] Work Phone: No Panel Informationon 02-27 [facility] Clinical Summary: HMSPatient IDon 03-08-2019 SOP [facility] Work Phone: Office Visit: New - 1st visi t with practice, Rm: 3on 03-08-2019 NEGATED: Highlighted rowTobacco smoking status NHIS Tobacco smoking status NHIS [facility] Work Phone: Office Visit: [facility]: R thumb l aceration healed but increased painon 06-11-2017 Documentation of current medications (procedure) Done Invalid Interpretation Code [facility] Work Phone: Fall risk assessment No Invalid Interpretation Code [facility] Work Phone: Tobacco smoking status NHIS Never Invalid Interpretation Code [facility] Work Phone: Tobacco use [facility] Never smoker Invalid Interpretation Code [facility] Work Phone: Vital Signs Date Time Vital Sign Value Performing Clinician Facility 03-06-2025 18:55-0400 Body temperature 98 [degF] Jimenez Francispkins ADDICTION TREATMENT COUNSELOR-C Work Phone: [facility] 03-06-2025 18:55-0400 Diastolic blood pressure 72 mm[Hg] Jimenez Francispkins ADDICTION TREATMENT COUNSELOR-C Work Phone: [facility] 03-06-2025 18:55-0400 Heart rate 78 /min Jimenez Francispkins ADDICTION TREATMENT COUNSELOR-C Work Phone: [facility] 03-06-2025 18:55-0400 Respiratory rate 18 /min Jimenez Francispkins ADDICTION TREATMENT COUNSELOR-C Work Phone: [facility] 03-06-2025 18:55-0400 SaO2% (BldA) [Mass fraction] 98 % Jimenez Deborah ADDICTION TREATMENT COUNSELOR-C Work Phone: [facility] 03-06-2025 18:55-0400 Systolic blood pressure 156 mm[Hg] Jimenez Francispkins ADDICTION TREATMENT COUNSELOR-C Work Phone: [facility] 03-06-2025 10:39-0400 Body height 154.94 cm Jimenez Faulk ADDICTION TREATMENT COUNSELOR-C Work Phone: [facility] 03-06-2025 10:39-0400 Body mass index (BMI) [Ratio] 26.8 kg/m2 Jimenez Deborah ADDICTION TREATMENT COUNSELOR-C Work Phone: [facility] 03-06-2025 10:39-0400 Body weight 64.41 kg Jimenez Deborah ADDICTION TREATMENT COUNSELOR-C Work Phone: [facility] 03-06-2025 10:25-0400 Body mass index (BMI) [Ratio] 36.66 kg/m2 Allyn Allen APRN.SPOOL TENDER Work Phone: [facility] 03-06-2025 10:25-0400 Body temperature 97.11 [degF] Allyn Swank CASINO GAMING INSPECTOR.SPOOL TENDER Work Phone: [facility] 03-06-2025 10:25-0400 Body weight 88 kg Allyn Swank CASINO GAMING INSPECTOR.SPOOL TENDER Work Phone: [facility] 03-06-2025 10:25-0400 Diastolic blood pressure 80 mm[Hg] Allyn Swank CASINO GAMING INSPECTOR.SPOOL TENDER Work Phone: [facility] 03-06-2025 10:25-0400 Heart rate 94 /min Allyn Swank CASINO GAMING INSPECTOR.SPOOL TENDER Work Phone: [facility] 03-06-2025 10:25-0400 Respiratory rate 16 /min Allyn Swank CASINO GAMING INSPECTOR.SPOOL TENDER Work Phone: [facility] 03-06-2025 10:25-0400 SaO2% (BldA) [Mass fraction] 98 % Allyn Swank CASINO GAMING INSPECTOR.SPOOL TENDER Work Phone: [facility] 03-06-2025 10:25-0400 Systolic blood pressure 132 mm[Hg] Allyn Swank CASINO GAMING INSPECTOR.SPOOL TENDER Work Phone: [facility] 02-13-2025 11:12-0400 Body mass index (BMI) [Ratio] 35.71 kg/m2 Darian Ames MD Work Phone: [facility] 02-13-2025 11:12-0400 Body weight 85.73 kg Darian Ames MD Work Phone: [facility] 02-13-2025 11:12-0400 Diastolic blood pressure 84 mm[Hg] Darian Ames MD Work Phone: [facility] 02-13-2025 11:12-0400 Systolic blood pressure 126 mm[Hg] Darian Ames MD Work Phone: [facility] 01-20-2025 09:05-0400 Diastolic blood pressure 82 mm[Hg] Candis Gamez MD Work Phone: [facility] 01-20-2025 09:05-0400 Heart rate 69 /min Candis Gamez MD Work Phone: [facility] 01-20-2025 09:05-0400 Respiratory rate 15 /min Candis Gamez MD Work Phone: [facility] 01-20-2025 09:05-0400 SaO2% (BldA) [Mass fraction] 99 % Candis Gamez MD Work Phone: [facility] 01-20-2025 09:05-0400 Systolic blood pressure 117 mm[Hg] Candis Gamez MD Work Phone: [facility] 01-20-2025 08:42-0400 Body temperature 97.5 [degF] Candis Gamez MD Work Phone: [facility] 01-20-2025 07:53-0400 Body height 154.9 cm Candis Gamez MD Work Phone: [facility] 01-20-2025 07:53-0400 Body mass index (BMI) [Ratio] 36.47 kg/m2 Candis Gamez MD Work Phone: [facility] 01-20-2025 07:53-0400 Body weight 87.54 kg Candis Gamez MD Work Phone: [facility] 01-10-2025 09:33-0400 Body height 154.9 cm Geneva Albert PA-C Work Phone: [facility] 01-10-2025 09:33-0400 Body mass index (BMI) [Ratio] 36.49 kg/m2 Sania Albert PA-C Work Phone: [facility] 01-10-2025 09:33-0400 Body weight 87.6 kg Sania Albert PA-C Work Phone: [facility] 01-10-2025 09:33-0400 Diastolic blood pressure 76 mm[Hg] Geneva Albert PA-C Work Phone: [facility] 01-10-2025 09:33-0400 Heart rate 80 /min Sania Albert PA-C Work Phone: [facility] 01-10-2025 09:33-0400 SaO2% (BldA) [Mass fraction] 98 % Sania Cuevair PA-C Work Phone: [facility] 01-10-2025 09:33-0400 Systolic blood pressure 113 mm[Hg] Sania Cuevair PA-C Work Phone: [facility] 01-09-2025 16:01-0400 Body height 154.9 cm Ani Hodakievic CASINO GAMING INSPECTOR.SPOOL TENDER Work Phone: [facility] 01-09-2025 16:01-0400 Body mass index (BMI) [Ratio] 25.51 kg/m2 Ani Hodakievic CASINO GAMING INSPECTOR.SPOOL TENDER Work Phone: [facility] 01-09-2025 16:01-0400 Body weight 61.24 kg Ani Hodakievic CASINO GAMING INSPECTOR.SPOOL TENDER Work Phone: [facility] 12-15-2024 10:20-0400 Heart rate 85 /min Frida Prebish CASINO GAMING INSPECTOR.SPOOL TENDER Work Phone: [facility] 12-15-2024 10:20-0400 Respiratory rate 16 /min Frida Prebish CASINO GAMING INSPECTOR.SPOOL TENDER Work Phone: [facility] 12-15-2024 10:20-0400 SaO2% (BldA) [Mass fraction] 98 % Frida Prebish CASINO GAMING INSPECTOR.SPOOL TENDER Work Phone: [facility] 12-07-2024 09:34-0400 Body mass index (BMI) [Ratio] 25.51 kg/m2 Zhanna Pablo CASINO GAMING INSPECTOR.SPOOL TENDER Work Phone: [facility] 12-07-2024 09:34-0400 Body weight 61.24 kg Zhanna Pablo CASINO GAMING INSPECTOR.SPOOL TENDER Work Phone: [facility] 12-07-2024 09:34-0400 Diastolic blood pressure 83 mm[Hg] Zhanna Pablo CASINO GAMING INSPECTOR.SPOOL TENDER Work Phone: [facility] 12-07-2024 09:34-0400 Heart rate 89 /min Zhanna Pablo CASINO GAMING INSPECTOR.SPOOL TENDER Work Phone: [facility] 12-07-2024 09:34-0400 Respiratory rate 14 /min Zhanna Pablo CASINO GAMING INSPECTOR.SPOOL TENDER Work Phone: [facility] 12-07-2024 09:34-0400 SaO2% (BldA) [Mass fraction] 96 % Zhanna Pablo CASINO GAMING INSPECTOR.SPOOL TENDER Work Phone: [facility] 12-07-2024 09:34-0400 Systolic blood pressure 124 mm[Hg] Zhanna Pablo CASINO GAMING INSPECTOR.SPOOL TENDER Work Phone: [facility] 12-06-2024 13:51-0400 Body temperature 98.2 [degF] Iveth Queden CASINO GAMING INSPECTOR.SPOOL TENDER Work Phone: [facility] 12-06-2024 13:51-0400 Diastolic blood pressure 74 mm[Hg] Iveth Queden CASINO GAMING INSPECTOR.SPOOL TENDER Work Phone: [facility] 12-06-2024 13:51-0400 Heart rate 76 /min Iveth Queden CASINO GAMING INSPECTOR.SPOOL TENDER Work Phone: [facility] 12-06-2024 13:51-0400 Respiratory rate 18 /min Iveth Queden CASINO GAMING INSPECTOR.SPOOL TENDER Work Phone: [facility] 12-06-2024 13:51-0400 SaO2% (BldA) [Mass fraction] 98 % Iveth Queden CASINO GAMING INSPECTOR.SPOOL TENDER Work Phone: [facility] 12-06-2024 13:51-0400 Systolic blood pressure 120 mm[Hg] Iveth Queden CASINO GAMING INSPECTOR.SPOOL TENDER Work Phone: [facility] 10-26-2024 11:14-0400 Heart rate 86 /min Ani Hodakievic CASINO GAMING INSPECTOR.SPOOL TENDER Work Phone: [facility] 10-26-2024 11:14-0400 Respiratory rate 16 /min Ani Hodakievic CASINO GAMING INSPECTOR.SPOOL TENDER Work Phone: [facility] 10-26-2024 11:14-0400 SaO2% (BldA) [Mass fraction] 99 % Ani Tessy CASINO GAMING INSPECTOR.SPOOL TENDER Work Phone: [facility] 10-04-2024 11:24-0500 Diastolic blood pressure 73 mm[Hg] Irene Schroederorelli DO Work Phone: [facility] 10-04-2024 11:24-0500 Respiratory rate 16 /min Irene Eldaorelli DO Work Phone: [facility] 10-04-2024 11:24-0500 SaO2% (BldA) [Mass fraction] 99 % Irene Eldaorelli DO Work Phone: [facility] 10-04-2024 11:24-0500 Systolic blood pressure 126 mm[Hg] Irene Schroederorelli DO Work Phone: [facility] 10-04-2024 11:00-0500 Heart rate 70 /min Irene Eldaorelli DO Work Phone: [facility] 10-04-2024 10:28-0500 Body temperature 96.8 [degF] Irene Eldaorelli DO Work Phone: [facility] 10-04-2024 07:55-0500 Body height 154.9 cm Irene Eldaorelli DO Work Phone: [facility] 10-04-2024 07:55-0500 Body mass index (BMI) [Ratio] 25.51 kg/m2 Irene Chicorelli DO Work Phone: [facility] 10-04-2024 07:55-0500 Body weight 61.24 kg Irene Chicorelli DO Work Phone: [facility] 09-27-2024 08:00-0500 Body height 154.9 cm [facility] 09-27-2024 08:00-0500 Body mass index (BMI) [Ratio] 25.51 kg/m2 [facility] 09-27-2024 08:00-0500 Body weight 61.24 kg [facility] 09-27-2024 08:00-0500 Respiratory rate 18 /min [facility] 09-22-2024 10:07-0500 Heart rate 91 /min Frida Prebish CASINO GAMING INSPECTOR.SPOOL TENDER Work Phone: [facility] 09-22-2024 10:07-0500 Respiratory rate 18 /min Frida Prebish CASINO GAMING INSPECTOR.SPOOL TENDER Work Phone: [facility] 09-22-2024 10:07-0500 SaO2% (BldA) [Mass fraction] 95 % Frida Prebish CASINO GAMING INSPECTOR.SPOOL TENDER Work Phone: [facility] 08-02-2024 10:05-0500 Body height 154.9 cm Debbie Pichardo MD Work Phone: [facility] 08-02-2024 10:05-0500 Body mass index (BMI) [Ratio] 25.51 kg/m2 Debbie Pichardo MD Work Phone: [facility] 08-02-2024 10:05-0500 Body weight 61.24 kg Debbie Pichardo MD Work Phone: [facility] Comment on above: self-reported 08-02-2024 10:05-0500 Diastolic blood pressure 72 mm[Hg] Debbie Pichardo MD Work Phone: [facility] 08-02-2024 10:05-0500 Heart rate 97 /min Debbie Pichardo MD Work Phone: [facility] 08-02-2024 10:05-0500 Respiratory rate 19 /min Debbie Pichardo MD Work Phone: [facility] 08-02-2024 10:05-0500 SaO2% (BldA) [Mass fraction] 97 % Debbie Pichardo MD Work Phone: [facility] 08-02-2024 10:05-0500 Systolic blood pressure 118 mm[Hg] Debbie Pichardo MD Work Phone: [facility] 06-29-2024 11:07-0500 Body height 154.9 cm [facility] 06-29-2024 11:07-0500 Body mass index (BMI) [Ratio] 34.96 kg/m2 [facility] 06-29-2024 11:07-0500 Body weight 83.92 kg [facility] 06-29-2024 11:07-0500 Respiratory rate 18 /min [facility] 04-04-2024 10:27-0400 Body height 154.9 cm [facility] 04-04-2024 10:270400 Body mass index (BMI) [Ratio] 26.45 kg/m2 [facility] 04-04-2024 10:0400 Body weight 63.5 kg [facility] Comment on above: patient reported, pr evious weight 190? 04-04-2024 10:270400 Respiratory rate 18 /min [facility] 02-27-2024 15:19-0400 Body mass index (BMI) [Ratio] 36.12 kg/m2 Quintin Mcguire MD Work Phone: [facility] 02-27-2024 15:19-0400 Body temperature 97.59 [degF] Quintin Mcguire MD Work Phone: [facility] 02-27-2024 15:19-0400 Body weight 86.7 kg Quintin Mcguire MD Work Phone: [facility] 02-27-2024 15:19-0400 Diastolic blood pressure 72 mm[Hg] Quintin Mcguire MD Work Phone: [facility] 02-27-2024 15:19-0400 Heart rate 88 /min Quintin Mcguire MD Work Phone: [facility] 02-27-2024 15:19-0400 Respiratory rate 16 /min Quintin Mcguire MD Work Phone: [facility] 02-27-2024 15:19-0400 SaO2% (BldA) [Mass fraction] 97 % Quintin Mcguire MD Work Phone: [facility] 02-27-2024 15:19-0400 Systolic blood pressure 122 mm[Hg] Quintin Mcguire MD Work Phone: [facility] 09-19-2023 22:50-0500 Body height 154.94 cm ADDICTION TREATMENT COUNSELOR-C Jimenez Cabrera ADDICTION TREATMENT COUNSELOR Work Phone: [facility] 09-19-2023 22:50-0500 Body mass index (BMI) [Ratio] 32.8 kg/m2 ADDICTION TREATMENT COUNSELOR-C Jimenez Deborah ADDICTION TREATMENT COUNSELOR Work Phone: [facility] 09-19-2023 22:50-0500 Body temperature 98 [degF] ADDICTION TREATMENT COUNSELOR-C Jimenez Faulk ADDICTION TREATMENT COUNSELOR Work Phone: [facility] 09-19-2023 22:50-0500 Body weight 78.8 kg ADDICTION TREATMENT COUNSELOR-C Jimenez Tinsleykins ADDICTION TREATMENT COUNSELOR Work Phone: [facility] 09-19-2023 22:50-0500 Diastolic blood pressure 68 mm[Hg] ADDICTION TREATMENT COUNSELOR-C Jimenez Tinsleykins ADDICTION TREATMENT COUNSELOR Work Phone: [facility] 09-19-2023 22:50-0500 Heart rate 90 /min ADDICTION TREATMENT COUNSELOR-C Jimenez Tinsleykins ADDICTION TREATMENT COUNSELOR Work Phone: [facility] 09-19-2023 22:50-0500 Respiratory rate 20 /min ADDICTION TREATMENT COUNSELOR-C Jimenez Tinsleykins ADDICTION TREATMENT COUNSELOR Work Phone: [facility] 09-19-2023 22:50-0500 SaO2% (BldA) [Mass fraction] 98 % ADDICTION TREATMENT COUNSELOR-C Jimenez Tinsleykins ADDICTION TREATMENT COUNSELOR Work Phone: [facility] 09-19-2023 22:50-0500 Systolic blood pressure 115 mm[Hg] ADDICTION TREATMENT COUNSELOR-C Jimenez Faulk ADDICTION TREATMENT COUNSELOR Work Phone: [facility] 08-24-2023 12:53-0500 Body height 154.94 cm [facility] 08-24-2023 12:53-0500 Body mass index (BMI) [Ratio] 32.3 kg/m2 [facility] 08-24-2023 12:53-0500 Body temperature 96.6 [degF] [facility] 08-24-2023 12:53-0500 Body weight 77.79 kg [facility] 08-24-2023 12:53-0500 Diastolic blood pressure 86 mm[Hg] [facility] 08-24-2023 12:53-0500 Heart rate 92 /min [facility] 08-24-2023 12:53-0500 Respiratory rate 18 /min [facility] 08-24-2023 12:53-0500 SaO2% (BldA) [Mass fraction] 97 % [facility] 08-24-2023 12:53-0500 Systolic blood pressure 105 mm[Hg] [facility] 04-28-2023 09:12-0400 Body temperature 97.59 [degF] Stan Vishal CASINO GAMING INSPECTOR.SPOOL TENDER Work Phone: [facility] 04-28-2023 09:12-0400 Body weight 79.74 kg Stan Rodgers CASINO GAMING INSPECTOR.SPOOL TENDER Work Phone: [facility] 04-28-2023 09:12-0400 Diastolic blood pressure 64 mm[Hg] Stan Pendlejo CASINO GAMING INSPECTOR.SPOOL TENDER Work Phone: [facility] 04-28-2023 09:12-0400 Heart rate 91 /min Stan Pendkathy CASINO GAMING INSPECTOR.SPOOL TENDER Work Phone: [facility] 04-28-2023 09:12-0400 Respiratory rate 18 /min Stan Pendkathy CASINO GAMING INSPECTOR.SPOOL TENDER Work Phone: [facility] 04-28-2023 09:12-0400 SaO2% (BldA) [Mass fraction] 98 % Stan Rodgers CASINO GAMING INSPECTOR.SPOOL TENDER Work Phone: [facility] 04-28-2023 09:12-0400 Systolic blood pressure 108 mm[Hg] Stan Pendlebury CASINO GAMING INSPECTOR.SPOOL TENDER Work Phone: [facility] 01-12-2023 10:42-0400 Body height 154.94 cm [facility] 01-12-2023 10:42-0400 Body mass index (BMI) [Ratio] 26.4 kg/m2 [facility] 01-12-2023 10:42-0400 Body temperature 97.4 [degF] [facility] 01-12-2023 10:42-0400 Body weight 63.5 kg [facility] 01-12-2023 10:42-0400 Diastolic blood pressure 96 mm[Hg] [facility] 01-12-2023 10:42-0400 Heart rate 78 /min [facility] 01-12-2023 10:42-0400 Respiratory rate 16 /min [facility] 01-12-2023 10:42-0400 SaO2% (BldA) [Mass fraction] 100 % [facility] 01-12-2023 10:42-0400 Systolic blood pressure 130 mm[Hg] [facility] 12-24-2022 11:22-0400 Body temperature 97.39 [degF] Misha Reyes CASINO GAMING INSPECTOR.SPOOL TENDER Work Phone: [facility] 12-24-2022 11:22-0400 Body weight 81.65 kg Misha Reyes CASINO GAMING INSPECTOR.SPOOL TENDER Work Phone: [facility] 12-24-2022 11:22-0400 Diastolic blood pressure 80 mm[Hg] Misha Reyes CASINO GAMING INSPECTOR.SPOOL TENDER Work Phone: [facility] 12-24-2022 11:22-0400 Heart rate 75 /min Misha Reyes CASINO GAMING INSPECTOR.SPOOL TENDER Work Phone: [facility] 12-24-2022 11:22-0400 Respiratory rate 21 /min Misha Reyes CASINO GAMING INSPECTOR.SPOOL TENDER Work Phone: [facility] 12-24-2022 11:22-0400 SaO2% (BldA) [Mass fraction] 100 % Misha Reyes CASINO GAMING INSPECTOR.SPOOL TENDER Work Phone: [facility] 12-24-2022 11:22-0400 Systolic blood pressure 102 mm[Hg] Misha Reyes CASINO GAMING INSPECTOR.SPOOL TENDER Work Phone: [facility] 11-28-2022 08:43-0400 Body height 154.9 cm Uriel Greenwood MD Work Phone: [facility] 11-28-2022 08:43-0400 Body weight 63.5 kg Uriel Greenwood MD Work Phone: [facility] 11-28-2022 08:43-0400 Diastolic blood pressure 87 mm[Hg] Uriel Greenwood MD Work Phone: [facility] 11-28-2022 08:43-0400 Heart rate 68 /min Uriel Greenwood MD Work Phone: [facility] 11-28-2022 08:43-0400 SaO2% (BldA) [Mass fraction] 100 % Uriel Greenwood MD Work Phone: [facility] 11-28-2022 08:43-0400 Systolic blood pressure 120 mm[Hg] Uriel Greenwood MD Work Phone: [facility] 11-19-2022 15:30-0400 Body height 154.9 cm Yesica Bean MD Work Phone: [facility] 11-19-2022 15:30-0400 Body weight 80.74 kg Yesica Bean MD Work Phone: [facility] 11-19-2022 15:30-0400 Diastolic blood pressure 75 mm[Hg] Yesica Bean MD Work Phone: [facility] 11-19-2022 15:30-0400 Heart rate 79 /min Yesica Bean MD Work Phone: [facility] 11-19-2022 15:30-0400 Systolic blood pressure 109 mm[Hg] Yesica Bean MD Work Phone: [facility] 09-25-2022 09:57-0500 Body temperature 98.71 [degF] Precious Vargas PA-C Work Phone: [facility] 09-25-2022 09:57-0500 Diastolic blood pressure 84 mm[Hg] Precious Athy PA-C Work Phone: [facility] 09-25-2022 09:57-0500 Heart rate 74 /min Precious Athy PA-C Work Phone: [facility] 09-25-2022 09:57-0500 Respiratory rate 18 /min Precious Athy PA-C Work Phone: [facility] 09-25-2022 09:57-0500 SaO2% (BldA) [Mass fraction] 99 % Precious Athy PA-C Work Phone: [facility] 09-25-2022 09:57-0500 Systolic blood pressure 136 mm[Hg] Precious Athy PA-C Work Phone: [facility] 05-06-2022 10:26-0400 Body temperature 97.59 [degF] Steph Shaw CASINO GAMING INSPECTOR.SPOOL TENDER Work Phone: [facility] 05-06-2022 10:26-0400 Body weight 80.02 kg Steph Shaw CASINO GAMING INSPECTOR.SPOOL TENDER Work Phone: [facility] 05-06-2022 10:26-0400 Diastolic blood pressure 76 mm[Hg] Steph Shaw CASINO GAMING INSPECTOR.SPOOL TENDER Work Phone: [facility] 05-06-2022 10:26-0400 Heart rate 76 /min Steph Shaw CASINO GAMING INSPECTOR.SPOOL TENDER Work Phone: [facility] 05-06-2022 10:26-0400 Respiratory rate 16 /min Steph Shaw CASINO GAMING INSPECTOR.SPOOL TENDER Work Phone: [facility] 05-06-2022 10:26-0400 SaO2% (BldA) [Mass fraction] 98 % Steph Shaw CASINO GAMING INSPECTOR.SPOOL TENDER Work Phone: [facility] 05-06-2022 10:26-0400 Systolic blood pressure 128 mm[Hg] Steph Shaw CASINO GAMING INSPECTOR.SPOOL TENDER Work Phone: [facility] 03-27-2022 13:08-0400 Respiratory rate 16 /min [facility] Work Phone: 03-27-2022 10:28-0400 Body height 154.94 cm [facility] Work Phone: 03-27-2022 10:28-0400 Body mass index (BMI) [Ratio] 25.9 kg/m2 [facility] Work Phone: 03-27-2022 10:28-0400 Body temperature 96.8 [degF] [facility] Work Phone: 03-27-2022 10:28-0400 Body weight 62.14 kg [facility] Work Phone: 03-27-2022 10:28-0400 Diastolic blood pressure 86 mm[Hg] [facility] Work Phone: 03-27-2022 10:28-0400 Heart rate 102 /min [facility] Work Phone: 03-27-2022 10:28-0400 SaO2% (BldA) [Mass fraction] 98 % [facility] Work Phone: 03-27-2022 10:28-0400 Systolic blood pressure 128 mm[Hg] [facility] Work Phone: 02-27-2022 08:51-0400 Heart rate 64 /min Jimena Ashley CASINO GAMING INSPECTOR.SPOOL TENDER Work Phone: [facility] 02-27-2022 08:51-0400 Respiratory rate 16 /min Jimena Ashley CASINO GAMING INSPECTOR.SPOOL TENDER Work Phone: [facility] 02-27-2022 08:51-0400 SaO2% (BldA) [Mass fraction] 99 % Jimena Ashley CASINO GAMING INSPECTOR.SPOOL TENDER Work Phone: [facility] 01-07-2022 10:25-0400 Body temperature 97.39 [degF] Lori Corral CASINO GAMING INSPECTOR.SPOOL TENDER Work Phone: [facility] 01-07-2022 10:25-0400 Body weight 81.1 kg Lori Praisler-Wood CASINO GAMING INSPECTOR.SPOOL TENDER Work Phone: [facility] 01-07-2022 10:25-0400 Diastolic blood pressure 72 mm[Hg] Lori Praisler-Wood CASINO GAMING INSPECTOR.SPOOL TENDER Work Phone: [facility] 01-07-2022 10:25-0400 Heart rate 93 /min Lori Praisler-Wood CASINO GAMING INSPECTOR.SPOOL TENDER Work Phone: [facility] 01-07-2022 10:25-0400 Respiratory rate 20 /min Lori Praisler-Wood CASINO GAMING INSPECTOR.SPOOL TENDER Work Phone: [facility] 01-07-2022 10:25-0400 SaO2% (BldA) [Mass fraction] 96 % Lori Praisler-Wood CASINO GAMING INSPECTOR.SPOOL TENDER Work Phone: [facility] 01-07-2022 10:25-0400 Systolic blood pressure 114 mm[Hg] Lori Praisler-Wood CASINO GAMING INSPECTOR.[facility] Work Phone: [facility] 01-01-2022 13:00-0400 Body temperature 97.3 [degF] [facility] Work Phone: [facility] 01-01-2022 13:00-0400 Diastolic blood pressure 78 mm[Hg] [facility] Work Phone: [facility] 01-01-2022 13:00-0400 Heart rate 70 /min [facility] Work Phone: [facility] 01-01-2022 13:00-0400 Systolic blood pressure 109 mm[Hg] [facility] Work Phone: [facility] 12-15-2021 14:11-0400 Body height 154.94 cm [facility] Work Phone: 12-15-2021 14:11-0400 Body mass index (BMI) [Ratio] 25.4 kg/m2 [facility] Work Phone: 12-15-2021 14:11-0400 Body temperature 98.2 [degF] [facility] Work Phone: 12-15-2021 14:11-0400 Body weight 61.23 kg [facility] Work Phone: 12-15-2021 14:11-0400 Diastolic blood pressure 80 mm[Hg] [facility] Work Phone: 12-15-2021 14:11-0400 Heart rate 115 /min [facility] Work Phone: 12-15-2021 14:11-0400 Respiratory rate 18 /min [facility] Work Phone: 12-15-2021 14:11-0400 SaO2% (BldA) [Mass fraction] 95 % [facility] Work Phone: 12-15-2021 14:11-0400 Systolic blood pressure 158 mm[Hg] [facility] Work Phone: 11-11-2021 14:38-0400 Body height 154.9 cm Austin Go Jr., MD Work Phone: [facility] 11-11-2021 14:38-0400 Body weight 81.19 kg Austin Go Jr., MD Work Phone: [facility] 11-11-2021 14:38-0400 Respiratory rate 16 /min Austin Go Jr., MD Work Phone: [facility] 06-11-2017 15:25-0400 BMI (Body Mass Index) 27.21 kg/m2 Ludwig MENDEZ [facility] Work Phone: 06-11-2017 15:25-0400 Body Temperature 97.4 [degF] Ludwig MENDEZ [facility] Work Phone: 06-11-2017 15:25-0400 BP Diastolic 74 mm[Hg] Ludwig MENDEZ [facility] Work Phone: 06-11-2017 15:25-0400 BP Systolic 106 mm[Hg] Ludwig MENDEZ [facility] Work Phone: 06-11-2017 15:25-0400 Height 154.94 cm Ludwig MENDEZ [facility] Work Phone: 06-11-2017 15:25-0400 Pulse (Heart Rate) 82 /min Ludwig MENDEZ [facility] Work Phone: 06-11-2017 15:25-0400 Respiratory Rate 14 /min Ludwig MENDEZ [facility] Work Phone: 06-11-2017 15:25-0400 Weight 65.32 kg Ludwig MENDEZ [facility] Work Phone: NEGATED: Highlighted [id number] 14:09-0400 BMI (Body Mass Index) 31.16 kg/m2 Lauren Sharma TURNTABLE ENGINEER [facility] Work Phone: NEGATED: Highlighted [id number] 14:09-0400 Body weight 72.12 kg Lauren Sharma TURNTABLE ENGINEER [facility] Work Phone: NEGATED: Highlighted [id number] 14:09-0400 Body weight 72 kg Lauren Sharma TURNTABLE ENGINEER [facility] Work Phone: NEGATED: Highlighted [id number] 14:09-0400 BP Diastolic 74 mm[Hg] Lauren Sharma TURNTABLE ENGINEER [facility] Work Phone: NEGATED: Highlighted [id number] 14:09-0400 BP Systolic 107 mm[Hg] Lauren Sharma LPN [facility] Work Phone: NEGATED: Highlighted [id number] 14:09-0400 Height 152.4 cm Lauren Sharma TURNTABLE ENGINEER [facility] Work Phone: NEGATED: Highlighted [id number] 14:09-0400 Height 152 cm Lauren Bowland [facility] Work Phone: NEGATED: Highlighted [id number] 14:09-0400 Pulse (Heart Rate) 70 /min Lauren Sharma LPN [facility] Work Phone: Encounters Encounter Date Encounter Type Care Provider Facility Start: 03-06-2025 End: 03-06-2025 ambulatory Janett Dash [facility] Work Phone: [facility] Comment on above: IOP packet Start: 03-06-2025 End: 03-06-2025 E-mail encounter from caregiver Janett Dash [facility] Work Phone: [facility] Start: 03-06-2025 End: 03-06-2025 Patient encounter procedure Allyn Allen CASINO GAMING INSPECTOR.SPOOL TENDER Work Phone: [facility] Comment on above: Flank pain (Primary Dx); Rectal bleeding Start: 03-06-2025 End: 03-06-2025 Emergency department patient visit Jimenez Cabrera ADDICTION TREATMENT COUNSELOR-C Work Phone: -Emergency Department Work Phone: Start: 03-04-2025 End: 03-04-2025 ambulatory Carolee Sharma RN NURSE [employer]HER Comment on above: Rectal Bleeding Start: 03-03-2025 ambulatory IRENE RANDOLPH Facility:[facility] Start: 03-03-2025 End: 03-03-2025 Subsequent hospital visit by physician Mri Radio [facility] (I-Stat/1.5t) Work Phone: Radiology Comment on above: Chronic migraine wit h aura without status migrainosus, not intractable [G43.E09] Start: 03-02-2025 End: 03-02-2025 E-mail encounter from caregiver Janett Dash [facility] Work Phone: [facility] Start: 03-02-2025 End: 03-02-2025 ambulatory Janett Dash [facility] Work Phone: [facility] Comment on above: Master Treatment Sri n Start: 03-01-2025 End: 03-01-2025 ambulatory IRENE RANDOLPH Facility:[facility] Start: 02-28-2025 ambulatory GLORIA SMITH [facility] Start: 02-27-2025 End: 02-27-2025 ambulatory IVETH HERNANDEZ Facility:[facility] Start: 02-27-2025 End: 02-27-2025 ambulatory DARIAN AMES Facility:[facility] Start: 02-24-2025 ambulatory VIETH A DAVID Facili ty:[facility] Start: 02-20-2025 End: 02-20-2025 [facility] Sania Price PA-C Work Phone: Neurology Pain Comment on above: Chronic pain syndrom e (Primary Dx); Chronic pain of left knee; Medication management; Major depressive disorder, single episode, severe without psychotic features (HCC); Generalized anxiety disorder Start: 02-17-2025 End: 02-17-2025 Patient encounter procedure Irene Randolph DO Work Phone: Orthopaedics Comment on above: Chronic migraine wit h aura without status migrainosus, not intractable (Primary Dx); Complex regional pain syndrome type 1 of left lower extremity; Chronic migraine without aura without status migrainosus, not intractable; Swelling of left lower extremity; History of traumatic brain injury Start: 02-17-2025 End: 02-17-2025 ambulatory IRENE RANDOLPH Facility:[facility] Start: 02-16-2025 End: 02-24-2025 ambulatory [facility] Provider [facility] Comment on above: Info for IOP and Saf ety plan Start: 02-16-2025 End: 02-24-2025 E-mail encounter from caregiver [facility] Provider [facility] Start: 02-14-2025 ambulatory DARIAN AMES Facil ity:[facility] Start: 02-14-2025 End: 02-14-2025 Patient encounter [facility] Start: 02-14-2025 End: 02-14-2025 Subsequent hospital visit by physician Screen Mammo [facility] Mammogram Start: 02-13-2025 End: 02-13-2025 Patient encounter procedure Darian Ames MD Work Phone: OB/Gynecology Comment on above: Encounter for gyneco logical examination (general) (routine) without abnormal findings (Primary Dx); Encounter for screening mammogram for breast cancer Start: 02-13-2025 End: 02-13-2025 Patient encounter status Darian Ames MD Work Phone: [facility] Start: 02-13-2025 End: 02-13-2025 ambulatory DARIAN AMES Facility:[facility] Start: 02-13-2025 Encounter for gynecological examination (general) (routine) without abnormal findings DARIAN AMES [facility] Start: 01-20-2025 ambulatory IVETH Moctezuma ty:[facility] Start: 01-20-2025 End: 01-20-2025 Subsequent hospital visit by physician Candis Gamez MD Work Phone: LD SURGERY Comment on above: Left lower quadrant abdominal pain [R10.32] Start: 01-17-2025 ambulatory IVETH HERNANDEZ Facili ty:[facility] Start: 01-17-2025 End: 01-17-2025 [facility] Work Phone: Radiology Comment on above: Encounter for screen ing mammogram for breast cancer [Z12.31] Start: 01-12-2025 End: 01-12-2025 Patient encounter procedure Elizabeth Karimi PA-C Work Phone: Orthopaedics Comment on above: Chronic pain of left knee (Primary Dx); Arthrofibrosis of knee joint, left Start: 01-12-2025 End: 01-12-2025 ambulatory IVETH HERNANDEZ Facility: Start: 01-12-2025 End: 01-12-2025 Subsequent hospital visit by physician [facility] Work Phone: Radiology Comment on above: Left knee pain, unsp ecified chronicity [M25.562] Start: 01-10-2025 End: 01-11-2025 Patient encounter procedure Nopcp (Historical) [facility] Comment on above: Chronic pain of left knee (Primary Dx); Medication management; Major depressive disorder, single episode, severe without psychotic features (HCC); Generalized anxiety disorder; Suicidal ideation; Personal history of traumatic brain injury; Chronic pain syndrome Left knee pain, unsp ecified chronicity (Primary Dx) Start: 01-10-2025 End: 01-10-2025 ambulatory Nopcp (Historical) [facility] Start: 01-09-2025 End: 01-09-2025 Telemedicine consultation with patient Ani Villanueva Tessy CASINO GAMING INSPECTOR.SPOOL TENDER Work Phone: [facility] Start: 01-09-2025 End: 01-09-2025 ambulatory Ani Villanueva Tessy CASINO GAMING INSPECTOR.SPOOL TENDER Work Phone: [facility] Comment on above: Intractable chronic migraine without aura and with status migrainosus (Primary Dx) Start: 12-15-2024 End: 12-15-2024 Patient encounter procedure Frida Vargas CASINO GAMING INSPECTOR.SPOOL TENDER Work Phone: [facility] Comment on above: Intractable chronic migraine without aura and with status migrainosus (Primary Dx) Start: 12-15-2024 End: 12-15-2024 ambulatory FRIDA PREBISH Facility:[facility] Start: 12-12-2024 End: 12-12-2024 Follow-up encounter Iveth Hernandez APRN.SPOOL TENDER Work Phone: [facility] Start: 12-12-2024 End: 12-12-2024 Telephone encounter Iveth Hernandez CASINO GAMING INSPECTOR.SPOOL TENDER Work Phone: [facility] Comment on above: Patient Question Start: 12-07-2024 End: 12-07-2024 Telephone encounter Iveth Hernandez APRN.SPOOL TENDER Work Phone: [facility] Comment on above: Patient Question (Di agnostic mammogram. ) Start: 12-07-2024 End: 12-07-2024 Patient encounter procedure Zhanna Shah CASINO GAMING INSPECTOR.SPOOL TENDER Work Phone: General Surgery Comment on above: Left lower quadrant abdominal pain (Primary Dx); Screening for colon cancer; BRBPR (bright red blood per rectum); Coughing up blood; Dysphagia, unspecified type Start: 12-07-2024 End: 12-07-2024 ambulatory IVETH HERNANDEZ Facility:[facility] Start: 12-06-2024 End: 12-06-2024 Patient encounter procedure Iveth Cuate David DRUMMONDSPOOL TENDER Work Phone: [facility] Comment on above: Well adult exam ([facility] Dx); Elevated alkaline phosphatase level; Chronic pain of left knee; Migraine without aura and without status migrainosus, not intractable; Seizure-like activity (HCC); Essential hypertension; Mild intermittent asthma without complication (HCC); Hypothyroidism, unspecified type; Depression, unspecified depression type; Mood disorder; Generalized abdominal pain; Encounter for screening mammogram for breast cancer; Abnormal mammogram of right breast; Special screening examination for viral disease; Screening for lipid disorders; Screening for colon cancer; Vitamin D deficiency Start: 12-06-2024 End: 12-06-2024 Patient encounter status Iveth Hernandez APRN.SPOOL TENDER Work Phone: [facility] Start: 12-06-2024 End: 12-06-2024 ambulatory IVETH HERNANDEZ Facility:[facility] Start: 12-06-2024 Encounter for genera l adult medical examination without abnormal findings IVETHCADEN HERNANDEZ [facility] Start: 12-01-2024 End: 03-01-2025 Telephone encounter Yesica Bean MD Work Phone: Neurology Comment on above: Patient Question Start: 10-26-2024 End: 10-26-2024 [facility] visit, estab pt Ani Rajput APRN.CNP Work Phone: [facility] Comment on above: Established Patient; Headache; Injections (Sphenopalatine/) Start: 10-26-2024 End: 10-26-2024 Patient encounter procedure Ani Rajput APRN.CNP Work Phone: [facility] Start: 10-26-2024 End: 10-26-2024 ambulatory FRIDA PREBISH Facility:[facility] Start: 10-20-2024 End: 10-20-2024 ambulatory Ronnie Pettit PT Work Phone: [facility] Comment on above: Chronic pain of left knee (Primary Dx); Arthrofibrosis of knee joint, left Start: 10-19-2024 End: 10-19-2024 ambulatory IRENE RANDOLPH Facility:[facility] Start: 10-19-2024 End: 10-19-2024 Patient encounter procedure Irene Randolph DO Work Phone: Orthopaedics Comment on above: Chronic pain of left knee (Primary Dx) Start: 10-19-2024 End: 10-20-2024 Telephone encounter Irene Randolph DO Work Phone: [facility] Comment on above: Patient Question Start: 10-18-2024 End: 10-18-2024 ambulatory Ronnie Pettit PT Work Phone: [facility] Comment on above: Chronic pain of left knee (Primary Dx); Arthrofibrosis of knee joint, left Start: 10-12-2024 End: 10-13-2024 Telephone encounter Irene Randolph DO Work Phone: Orthopaedics Comment on above: post op pain Start: 10-12-2024 End: 10-12-2024 ambulatory Ronnie Pettit PT Work Phone: [facility] Comment on above: Chronic pain of left knee (Primary Dx); Arthrofibrosis of knee joint, left Start: 10-05-2024 End: 10-05-2024 ambulatory Ronnieissa Pettit PT Work Phone: [facility] Comment on above: Chronic pain of left knee (Primary Dx); Arthrofibrosis of knee joint, left Start: 10-04-2024 End: 10-04-2024 Subsequent hospital visit by physician Irene Randolph DO Work Phone: Surgery Comment on above: Chronic pain of left knee [M25.562, G89.29], Arthrofibrosis of knee joint, left [M24.662] Start: 09-30-2024 End: 09-30-2024 ambulatory IRENE RANDOLPH Facility:[facility] Start: 09-29-2024 End: 11-29-2024 Follow-up encounter Yesica Bean MD Work Phone: Neurology Start: 09-28-2024 End: 09-28-2024 Orders Only Elizabeth Karimi PA-C Work Phone: Orthopaedics Comment on above: Chronic pain of left knee (Primary Dx); Arthrofibrosis of knee joint, left Start: 09-27-2024 Encounter for other preprocedural examination RONNIE PETTIT [facility] Start: 09-27-2024 End: 09-27-2024 [facility] [place]est[facility] Comment on above: Preop examination (P rimary Dx); Seizure-like activity (HCC); Psychogenic nonepileptic seizure; Hypothyroidism, unspecified type; Mood disorder (HCC); Intractable chronic migraine without aura and with status migrainosus Start: 09-27-2024 End: 09-27-2024 Preprocedural examination done Pac [facility] Work Phone: Start: 09-26-2024 End: 09-26-2024 ambulatory YESICA BEAN Facility:[facility] Start: 09-23-2024 End: 09-23-2024 Orders Only Irene Randolph DO Work Phone: Orthopaedics Comment on above: Chronic pain of left knee (Primary Dx); Arthrofibrosis of knee joint, left Start: 09-22-2024 End: 09-22-2024 Telephone encounter Frida Vargas APRN.CNP Work Phone: [facility] Comment on above: Injections Start: 09-22-2024 End: 09-22-2024 Patient encounter procedure Frida Vargas APRN.CNP Work Phone: [facility] Comment on above: Intractable chronic migraine without aura and with status migrainosus (Primary Dx) Start: 09-22-2024 End: 09-22-2024 ambulatory FRIDA VARGAS Facility:[facility] Start: 09-21-2024 End: 09-21-2024 ambulatory IRENE RANDOLPH Facility:[facility] Start: 09-21-2024 End: 09-21-2024 Patient encounter procedure Twylaandrea Randolph DO Work Phone: Orthopaedics Comment on above: Arthrofibrosis of kn ee joint, left (Primary Dx); Chronic pain of left knee Start: 09-12-2024 End: 09-12-2024 ambulatory Ronnie Pettit PT Work Phone: [facility] Comment on above: Chronic pain of left knee (Primary Dx) Start: 09-05-2024 End: 09-05-2024 Telephone encounter Frida Vargas APRN.SPOOL TENDER Work Phone: [facility] Comment on above: Returning Patient's Call; New Patient Start: 09-01-2024 End: 09-12-2024 Telephone encounter Yesica Bean MD Work Phone: Neurology Comment on above: update Start: 08-31-2024 End: 08-31-2024 ambulatory Ronnie Pettit PT Work Phone: [facility] Comment on above: Chronic pain of left knee (Primary Dx); Acute medial meniscus tear of left knee, initial encounter Start: 08-31-2024 End: 08-31-2024 Patient encounter procedure No Pcp CASINO GAMING INSPECTOR [facility] Start: 08-29-2024 End: 08-30-2024 Refill Yesica Bean MD Work Phone: Neurology Start: 08-25-2024 End: 08-25-2024 ambulatory Sarika Alvarado MD Work Phone: Endocrinology Comment on above: Overweight (BMI 25.0 -29.9) Intractable chronic migraine without aura and without status migrainosus (Primary Dx) Start: 08-25-2024 End: 08-25-2024 Telemedicine consultation with patient Sariak Alvarado MD Work Phone: Endocrinology Start: 08-23-2024 End: 08-23-2024 ambulatory ANAYA BARTLETT Facility:[facility] Start: 08-19-2024 End: 08-19-2024 ambulatory IRENE SCHROEDERREYNAMELANI Facility:[facility] Start: 08-19-2024 End: 08-19-2024 Patient encounter procedure Irene Randolph DO Work Phone: Orthopaedics Comment on above: Chronic pain of left knee (Primary Dx) Start: 08-15-2024 End: 08-15-2024 ambulatory Ronnie Pettit PT Work Phone: [facility] Comment on above: Chronic pain of left knee (Primary Dx); Acute medial meniscus tear of left knee, initial encounter Start: 08-11-2024 End: 08-11-2024 ambulatory Ronnie Pettit PT Work Phone: [facility] Comment on above: Chronic pain of left knee (Primary Dx); Acute medial meniscus tear of left knee, initial encounter Start: 08-08-2024 End: 08-08-2024 ambulatory Ronnie Pettit PT Work Phone: [facility] Comment on above: Chronic pain of left knee (Primary Dx); Acute medial meniscus tear of left knee, initial encounter Start: 08-02-2024 End: 08-02-2024 Patient encounter procedure Debbie Pichardo MD Work Phone: Endocrinology Comment on above: Overweight (BMI 25.0 -29.9) (Primary Dx); Subclinical hypothyroidism; Ton thyroiditis Start: 08-02-2024 End: 08-02-2024 ambulatory Steph Neely PT [facility] Comment on above: Tear of medial menis cus of left knee, current, unspecified tear type, initial encounter (Primary Dx); Chronic pain of left knee; Acute medial meniscus tear of left knee, initial encounter; Sprain of right ankle, unspecified ligament, initial encounter Start: 07-27-2024 End: 07-27-2024 ambulatory Ronnie Pettit PT Work Phone: [facility] Comment on above: Tear of medial menis cus of left knee, current, unspecified tear type, initial encounter Start: 07-21-2024 End: 07-21-2024 ambulatory Ronnie Pettit PT Work Phone: [facility] Comment on above: Chronic pain of left knee (Primary Dx); Acute medial meniscus tear of left knee, initial encounter Start: 07-18-2024 End: 07-18-2024 [facility] Uriel Greenwood MD Work Phone: Neurology Comment on above: Psychogenic nonepile ptic seizure (Primary Dx); Severe episode of recurrent major depressive disorder, with psychotic features (HCC) Start: 07-15-2024 End: 07-15-2024 ambulatory ANAYA BARTLETT Facility:[facility] Start: 07-14-2024 End: 07-15-2024 Refill Irene Randolph DO Work Phone: Orthopaedics Comment on above: Prescription Refills Pain of left calf (P rimary Dx); S/P arthroscopy of knee Start: 06-30-2024 End: 06-30-2024 ambulatory IRENE RANDOLPH Facility:[facility] Start: 06-29-2024 Encounter for other preprocedural examination RONNIE SAMAN [facility] Start: 06-29-2024 End: 06-29-2024 Preprocedural examination done [facility] Work Phone: Start: 06-29-2024 End: 06-29-[address] 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) Start: 06-21-2024 End: 06-21-2024 Telephone encounter Chloé Taylor MD Work Phone: Endocrinology Start: 06-19-2024 End: 06-22-2024 ambulatory KRISTIN ALEXANDER V Facility:[facility] Start: 06-17-2024 End: 06-17-2024 Orders Only Irene Randolph DO Work Phone: Orthopaedics Comment on above: 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) Start: 06-16-2024 End: 06-16-2024 ambulatory IRENE SCHROEDERREYNAMELANI Facility:[facility] Start: 06-16-2024 End: 06-16-2024 Patient encounter procedure Irene Randolph DO Work Phone: Orthopaedics Comment on above: 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); S/P arthroscopy of knee Start: 06-07-2024 End: 06-07-2024 ambulatory Ronnie Pettit PT Work Phone: [facility] Comment on above: Chronic pain of left knee (Primary Dx); Acute medial meniscus tear of left knee, initial encounter Start: 06-03-2024 End: 06-03-2024 ambulatory Ronnie Pettit PT Work Phone: [facility] Comment on above: Chronic pain of left knee (Primary Dx); Acute medial meniscus tear of left knee, initial encounter Start: 05-31-2024 End: 05-31-2024 ambulatory Ronnie Pettit PT Work Phone: [facility] Comment on above: Chronic pain of left knee (Primary Dx); Acute medial meniscus tear of left knee, initial encounter Start: 05-30-2024 End: 05-30-2024 ambulatory Sierra Thompson PA-C Work Phone: Neurology Comment on above: Seizure (HCC) (Prima ry Dx) Start: 05-30-2024 End: 05-30-2024 Telemedicine consultation with patient Realbraxton Thompson PA-C Work Phone: Neurology Start: 05-25-2024 End: 10-14-2024 Telephone encounter Uriel Greenwood MD Work Phone: Neurology Comment on above: Medication Authoriza tion (Lamictal XR) Start: 05-24-2024 End: 05-25-2024 Refill Uriel Greenwood MD Work Phone: Neurology Comment on above: Refill Request Start: 05-19-2024 End: 05-24-2024 Telephone encounter Tania BRINK Navigation Comment on above: Patient Question Start: 05-19-2024 End: 05-19-2024 ambulatory IRENE SCHROEDERSAQIB Facility:[facility] Start: 05-19-2024 End: 05-19-2024 Patient encounter procedure Irene Schroederreynamelani DO Work Phone: Orthopaedics Comment on above: 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) Start: 2024 End: 2024 ambulatory Ronnie Pettit PT Work Phone: [facility] Comment on above: Chronic pain of left knee (Primary Dx); Acute medial meniscus tear of left knee, initial encounter Start: 04-27-2024 End: 04-27-2024 Telephone encounter Isabel Dahl RN Orthopaedics Start: 04-21-2024 End: 04-21-2024 ambulatory [facility] ELDASAQIB Facility:[facility] Start: 04-21-2024 End: 04-21-2024 ambulatory TWYLA CHICSAQIB Facility:[facility] Start: 04-21-2024 End: 04-21-2024 Patient encounter procedure Irene Randolph DO Work Phone: Orthopaedics Comment on above: Pain of left calf (P rimary Dx); Chronic pain of left knee; Acute medial meniscus tear of left knee, initial encounter Start: 04-07-2024 End: 04-07-2024 ambulatory TWYLA CHICSAQIB Facility:[facility] Start: 04-04-2024 End: 04-04-2024 Admission to establishment [facility] [place] [facility] Start: 04-04-2024 End: 04-04-2024 ambulatory TWYLA CHICREYNA Facility:[facility] Start: 04-04-2024 End: 04-04-2024 Anesthesia consultation [facility] Comment on above: Preop examination (P rimary Dx); Intractable chronic migraine without aura and with status migrainosus Start: 04-04-2024 End: 04-04-2024 Preprocedural examination done [facility] Work Phone: Start: 04-01-2024 End: 04-01-2024 Orders Only Irene Randolph DO Work Phone: Orthopaedics Comment on above: Tear of medial menis cus of left knee, current, unspecified tear type, initial encounter (Primary Dx) Appointment Start: 03-30-2024 End: 03-30-2024 ambulatory TWYLAPHONG RANDOLPH Facility:[facility] Start: 03-30-2024 End: 03-30-2024 Patient encounter procedure Irene Randolph DO Work Phone: Orthopaedics Comment on above: Chronic pain of left knee (Primary Dx); Chondromalacia of left patella; Tear of medial meniscus of left knee, current, unspecified tear type, initial encounter Start: 02-27-2024 End: 02-27-2024 Patient encounter procedure Quintin Mcguire MD Work Phone: [facility] Comment on above: Taste sense altered (Primary Dx); Chills Start: 02-10-2024 End: 02-10-2024 Subsequent hospital visit by physician Ch[facility] Suresh Casas Work Phone: Radiology Comment on above: Left leg pain [M79.6 05] Start: 02-05-2024 Telephone encounter Seven lutz MD Work Phone: Orthopaedics Comment on above: Appointment Start: 02-04-2024 End: 02-04-2024 Patient encounter procedure Seven Hernandez MD Work Phone: Orthopaedic Surgery [facility] Comment on above: Chronic pain of left knee (Primary Dx) Start: 02-04-2024 End: 02-04-2024 Subsequent hospital visit by physician Chasidy [facility] 1 Xray [facility] Comment on above: Left knee pain, unsp ecified chronicity [M25.562] Start: 01-11-2024 Orders Only Seven Hernandez MD Work Phone: Orthopaedics Comment on above: Left knee pain, unsp ecified chronicity (Primary Dx) Start: 12-21-2023 End: 12-21-2023 ambulatory Jimenez Cabrera ADDICTION TREATMENT COUNSELOR Facility:[facility] Start: 12-17-2023 End: 12-17-2023 ambulatory ADDICTION TREATMENT COUNSELOR-C Jimenez Francispkins ADDICTION TREATMENT COUNSELOR Work Phone: [facility] Work Phone: Start: 12-17-2023 End: 12-17-2023 Discharged Recurring ADDICTION TREATMENT COUNSELOR-C Jimenez Deborah ADDICTION TREATMENT COUNSELOR Work Phone: [facility]-Physical Therapy Work Phone: Start: 10-20-2023 End: 10-20-2023 ambulatory ADDICTION TREATMENT COUNSELOR-C Jimenez Cabrera ADDICTION TREATMENT COUNSELOR Work Phone: [facility] Work Phone: Start: 10-20-2023 End: 10-20-2023 Patient encounter procedure ADDICTION TREATMENT COUNSELOR-C Jimenez Deborah ADDICTION TREATMENT COUNSELOR Work Phone: [facility] Work Phone: Start: 10-20-2023 End: 10-20-2023 ambulatory Jimenez Cabrera ADDICTION TREATMENT COUNSELOR Facility:[facility] Start: 10-15-2023 End: 10-15-2023 Patient encounter procedure ADDICTION TREATMENT COUNSELOR-C Jimenez Faulk ADDICTION TREATMENT COUNSELOR Work Phone: [facility] Work Phone: Start: 10-15-2023 End: 10-15-2023 ambulatory Jimenez Cabrera ADDICTION TREATMENT COUNSELOR Facility:[facility] Start: 10-12-2023 End: 10-12-2023 Patient encounter procedure ADDICTION TREATMENT COUNSELOR-C Jimenez Deborah ADDICTION TREATMENT COUNSELOR Work Phone: [facility] Work Phone: Start: 10-12-2023 End: 10-12-2023 ambulatory Jimenez Cabrera ADDICTION TREATMENT COUNSELOR Facility:[facility] Start: 10-06-2023 End: 10-06-2023 Discharged Recurring ADDICTION TREATMENT COUNSELOR-C Jimenez Cabrera ADDICTION TREATMENT COUNSELOR Work Phone: [facility] Work Phone: Start: 10-06-2023 End: 10-06-2023 ambulatory ADDICTION TREATMENT COUNSELOR-C Jimenez Cabrera ADDICTION TREATMENT COUNSELOR Work Phone: [facility] Work Phone: Start: 09-28-2023 End: 09-28-2023 ambulatory ADDICTION TREATMENT COUNSELOR-C Jimenez Cabrera ADDICTION TREATMENT COUNSELOR Work Phone: [facility] Work Phone: Start: 09-28-2023 End: 09-28-2023 Patient encounter procedure ADDICTION TREATMENT COUNSELOR-C Jimenez Cabrera ADDICTION TREATMENT COUNSELOR Work Phone: [facility] Work Phone: Start: 09-28-2023 End: 09-28-2023 Patient encounter procedure ADDICTION TREATMENT COUNSELOR-C Jimenez Cabrera ADDICTION TREATMENT COUNSELOR Work Phone: [facility] Work Phone: Start: 09-28-2023 End: 09-28-2023 ambulatory [facility] Facility:[facility] Start: 09-28-2023 End: 09-28-2023 ambulatory [facility] Facility:[facility] Start: 09-23-2023 End: 09-23-2023 ambulatory ADDICTION TREATMENT COUNSELOR-C Jimenez Cabrera ADDICTION TREATMENT COUNSELOR Work Phone: [facility] Work Phone: Start: 09-23-2023 End: 09-23-2023 Patient encounter procedure ADDICTION TREATMENT COUNSELOR-C Jimenez Cabrera ADDICTION TREATMENT COUNSELOR Work Phone: [facility] Work Phone: Start: 09-23-2023 End: 09-23-2023 ambulatory Jimenez Cabrera ADDICTION TREATMENT COUNSELOR Facility:[facility] Start: 09-19-2023 End: 09-20-2023 Emergency department patient visit ADDICTION TREATMENT COUNSELOR-C Jimenez Cabrera ADDICTION TREATMENT COUNSELOR Work Phone: [facility] Work Phone: Start: 09-14-2023 End: 09-14-2023 Patient encounter procedure ADDICTION TREATMENT COUNSELOR-C Jimenez Cabrera ADDICTION TREATMENT COUNSELOR Work Phone: [facility] Work Phone: Start: 08-24-2023 End: 08-24-2023 Subsequent hospital visit by physician [facility] Work Phone: Radiology Comment on above: Bilateral sciatica [ M54.31, M54.32] Start: 08-24-2023 End: 08-24-2023 Emergency department patient visit [facility] Work Phone: Start: 04-28-2023 End: 04-28-2023 Office outpatient visit 15 minutes Stan Rodgers APRN.SPOOL TENDER Work Phone: [facility] Comment on above: Sore throat (Primary Dx); URI with cough and congestion Start: 04-10-2023 End: 04-10-2023 Subsequent hospital visit by physician Mri [facility] Wstr (I-Stat/1.5t) Work Phone: Radiology Comment on above: Acute right ankle pa in [M25.571] Start: 04-08-2023 End: 04-09-2023 ambulatory DAYAN FISH CASINO GAMING INSPECTOR-SPOOL TENDER Facility:B Start: 04-08-2023 End: 04-08-2023 Patient encounter procedure DAYAN FISH CASINO GAMING INSPECTOR-SPOOL TENDER [facility] Start: 03-31-2023 Telephone encounter Iveth Hernandez APRN.SPOOL TENDER Work Phone: [facility] Comment on above: Missed Appointment ( New patient missed appointment.) Start: 03-19-2023 End: 03-20-2023 ambulatory DAYAN FISH CASINO GAMING INSPECTOR-SPOOL TENDER Facility:B Start: 03-19-2023 End: 03-19-2023 Patient encounter procedure DAYAN FISH CASINO GAMING INSPECTOR-SPOOL TENDER [facility] Start: 03-13-2023 End: 03-13-2023 ambulatory Ronnie Pettit PT Work Phone: [facility] Comment on above: Sprain of right ankl e, unspecified ligament, initial encounter (Primary Dx) Start: 03-10-2023 End: 03-10-2023 Patient encounter procedure Brenden Ramirezalison Work Phone: Podiatry Comment on above: Sprain of right ankl e, unspecified ligament, initial encounter (Primary Dx); Peroneal tendinitis of right lower extremity; Acute right ankle pain Start: 02-17-2023 End: 02-17-2023 Subsequent hospital visit by physician [facility] Work Phone: Radiology Comment on above: Sprain of right ankl e, unspecified ligament, initial encounter [S93.401A] Start: 02-11-2023 End: 02-11-2023 Patient encounter procedure Brenden Puri Work Phone: Podiatry Comment on above: Sprain of right ankl e, unspecified ligament, initial encounter (Primary Dx) Start: 02-11-2023 End: 02-11-2023 Subsequent hospital visit by physician [facility] Work Phone: Radiology Comment on above: Acute right ankle pa in [M25.571] Start: 01-12-2023 End: 01-12-2023 Emergency department patient visit [facility] Start: 12-31-2022 Telephone encounter Uriel trimble MD Work Phone: Neurology Comment on above: Results Start: 12-24-2022 End: 12-24-2022 Patient encounter procedure Misha Chambers APRN.CNP Work Phone: [facility] Comment on above: Unspecified migraine (Primary Dx) Start: 11-28-2022 End: 11-28-2022 Patient encounter procedure Uriel Greenwood MD Work Phone: Neurology Comment on above: Seizure (HCC) (Prima ry Dx) Start: 11-19-2022 End: 11-19-2022 Patient encounter procedure Yesica Bean MD Work Phone: Neurology Comment on above: Intractable chronic migraine without aura and without status migrainosus (Primary Dx); Medication overuse headache Start: 09-25-2022 Telephone encounter Uriel trimble MD Work Phone: Neurology Comment on above: Seizures (Seizure ) Start: 09-25-2022 End: 09-25-2022 Patient encounter procedure Precious Alise Vargas PA-C Work Phone: [facility] Comment on above: Chronic migraine wit h aura (Primary Dx); Seizure disorder (HCC) Start: 08-12-2022 Telephone encounter Uriel trimble MD Work Phone: Neurology Comment on above: Medication Concern ( Zonisamide) Start: 08-10-2022 Refill Shy Leong CASINO GAMING INSPECTOR.SPOOL TENDER Work Phone: Neurology Comment on above: Refill Request Start: 05-06-2022 End: 05-06-2022 Subsequent hospital visit by physician [facility] Work Phone: Radiology Comment on above: Right hand pain [M79 .641] Start: 05-06-2022 End: 05-06-2022 Patient encounter procedure Steph Shaw CASINO GAMING INSPECTOR.SPOOL TENDER Work Phone: [facility] Comment on above: Right hand pain (Sarah veronika Dx) Start: 03-27-2022 End: 03-27-2022 Emergency department patient visit [facility] Start: 02-27-2022 End: 02-27-2022 Subsequent hospital visit by physician [facility] Work Phone: Radiology Comment on above: Chronic neck pain [M 54.2, G89.29] Start: 02-27-2022 End: 02-27-2022 Patient encounter procedure Jimena Ashley CASINO GAMING INSPECTOR.SPOOL TENDER Work Phone: [facility] Comment on above: Disturbance of skin sensation (Primary Dx); Arthritis of carpometacarpal (CMC) joint of right thumb; Other chronic pain; Chronic neck pain Start: 01-07-2022 Telephone encounter Austin Chaves MD Work Phone: [facility] Comment on above: Appointment (Referra l to PM ) Start: 01-07-2022 End: 01-07-2022 Patient encounter procedure Lori Corral APRN.SPOOL TENDER Work Phone: [facility] Comment on above: Viral illness (Prima ry Dx); Exposure to COVID-19 virus Start: 01-01-2022 End: 01-01-2022 Orders Only Yesica Bean MD Work Phone: Neurology Comment on above: Intractable chronic migraine without aura and with status migrainosus (Primary Dx) Start: 12-16-2021 Telephone encounter Austin Chaves MD Work Phone: [facility] Comment on above: Appointment Appointment (ER f/u- scheduled ) Start: 12-15-2021 End: 12-15-2021 Emergency department patient visit [facility] Start: 12-05-2021 Telephone encounter Ana tobin APRN.SPOOL TENDER Work Phone: [facility] Comment on above: Results; Orders Start: 11-14-2021 End: 11-14-2021 Discharged Recurring [facility] Start: 11-11-2021 End: 11-11-2021 Patient encounter procedure Austin Go MD Work Phone: [facility] Comment on above: Numbness of right addison nd (Primary Dx) Start: 03-08-2019 End: 03-08-2019 Patient encounter procedure Alberto Matamoros MD Work Phone: [facility] Work Phone: Procedures Date Procedure Procedure Detail Performing Clinician Start: 03-06-2025 Measurement of occul t blood in stool specimen using immunoassay Jimenez AYERSC Work Phone: Start: 03-06-2025 Urnls dip stick/tabl et reagent auto microscopy Jimenez Cabrera ADDICTION TREATMENT COUNSELOR-C Work Phone: Start: 03-06-2025 Estimated creatinine clearance Jimenez Cabrera NP-C Work Phone: Start: 03-06-2025 Computed tomography of abdomen and pelvis with intravenous contrast Jimenez Cabrera ADDICTION TREATMENT COUNSELOR-C Work Phone: Start: 03-03-2025 Mri brain brain stem w/o contrast material Irene Darling Agustín DO Work Phone: Start: 01-20-2025 Colonoscopy flx dx w/collj spec when pfrmd Candis Gamez MD Work Phone: Start: 01-20-2025 Esophagoscp rig transoral hypopharynx crv esoph Candis Gamez MD Work Phone: Start: 01-20-2025 Colonoscopy Candis Gamez MD Work Phone: Start: 01-17-2025 Digital breast tomosynthesis bilateral Iveth Hernandez CASINO GAMING INSPECTOR.SPOOL TENDER Work Phone: Start: 12-15-2024 Follow-up visit Follow Up FRIDA VANESSA BANGURASH Start: 12-07-2024 Lipid 1996 panel - S francisco or Plasma Iveth Hernandez CASINO GAMING INSPECTOR.SPOOL TENDER Work Phone: Start: 10-04-2024 PHOTO KNEE LEFT [facility] Pro vider Start: 02-04-2024 Radiologic exam knee complete 4/more views Seven Hernandez MD Work Phone: Start: 09-23-2023 MRI of joint of lowe r extremity ADDICTION TREATMENT COUNSELOR-C Jimenez Cabrera ADDICTION TREATMENT COUNSELOR Work Phone: Start: 09-19-2023 Radiologic examinati on of knee ADDICTION TREATMENT COUNSELOR-C Jimenez Cabrera ADDICTION TREATMENT COUNSELOR Work Phone: Start: 09-14-2023 X-ray of lumbar spin e, two or three views ADDICTION TREATMENT COUNSELOR-C Jimenez Francispkins ADDICTION TREATMENT COUNSELOR Work Phone: Start: 09-14-2023 Radiologic examinati on of knee ADDICTION TREATMENT COUNSELOR-C Jimenez Cabrera ADDICTION TREATMENT COUNSELOR Work Phone: Start: 08-24-2023 Radex spine lumbosac ral 2/3 views Lori Corral CASINO GAMING INSPECTOR.SPOOL TENDER Work Phone: Start: 04-28-2023 STREP A MOLECULAR (POC) [facility] Provider Start: 04-10-2023 Mri any jt lower ext rem w/o contrast matrl Brenden Puri Work Phone: Start: 02-17-2023 Radiologic examinati on tibia & fibula 2 views Brenden Puri Work Phone: Start: 02-11-2023 Radex ankle complete minimum 3 views Brenden Puri Work Phone: Start: 01-12-2023 Radiography of ankle Start: 01-12-2023 Plain X-ray of tibia and fibula Start: 05-06-2022 Radex hand minimum 3 views Steph Shaw CASINO GAMING INSPECTOR.SPOOL TENDER Work Phone: Start: 03-27-2022 Plain chest X-ray Start: 02-27-2022 Radex spine cervical 6 or more views Jimena Ashley CASINO GAMING INSPECTOR.SPOOL TENDER Work Phone: Start: 12-15-2021 Plain x-ray of wrist Start: 03-08-2019 End: 03-08-2019 Blood pressure within [...] Start: 03-15-2018 Cardiovascular stres s testing DAYAN DAIJA CASINO GAMING INSPECTOR-SPOOL TENDER Start: 01-05-2018 Colonoscopy Austni Banerjee Jr., MD Work Phone: Start: 12-25-2017 Mammography Austin Banerjee Jr., MD Work Phone: Abdominal hysterectomy Abdominal hysterectomy DAYAN CHOE CASINO GAMING INSPECTOR-SPOOL TENDER Cardiac catheterization SHARON CHOE CASINO GAMING INSPECTOR-SPOOL TENDER section DAYAN Vance CASINO GAMING INSPECTOR-SPOOL TENDER Colonoscopy DAYAN CHOE CASINO GAMING INSPECTOR-SPOOL TENDER Hysterectomy DAYAN CHOE CASINO GAMING INSPECTOR-SPOOL TENDER Ligation of fallopia n tube DAYANIRENE CHOE CASINO GAMING INSPECTOR-SPOOL TENDER NEGATED: Highlighted rowStart: 03-08-2019 End: 03-08-2019 Documentation of current medications Lauren Sharma LPN Plan of Treatment Date Care Activity Detail Author Start: 01-20-2030 Screening for malignant neoplasm of colon [facility] Start: 12-07-2029 Lipid panel Lipid Screening [facility] Start: 12-08-2027 Diabetes Screening Diabetes Screening [facility] Start: 09-26-2027 Diabetes Screening Diabetes Screening [facility] Start: 06-19-2027 Diabetes Screening Diabetes Screening [facility] Start: 01-20-2026 Screening for malignant neoplasm of colon [facility] Start: 01-17-2026 Screening for malignant neoplasm of breast Mammogram Screening [facility] Start: 01-10-2026 BP Controlled (<130/80) BP Controlled (<130/80) [facility] Start: 01-10-2026 zzBP Controlled (<130/80) (Retired) zzBP Controlled (<130/80) (Retired) [facility] Start: 12-26-2025 DIABETES SCREEN DIABETES SCREEN [facility] Start: 12-26-2025 Diabetes Screening Diabetes Screening [facility] Start: 12-06-2025 Annual PCP Team Chronic Disease Visit Annual PCP Team Chronic Disease Visit [facility] Start: 11-14-2025 Urine microalbumin profile [facility] Start: 08-02-2025 BP Controlled (<130/80) BP Controlled (<130/80) [facility] Start: 08-02-2025 End: 11-01-2025 Thyrotropin [Units/volume] in Serum or Plasma THYROID STIMULATING HORMONE Lab Routine Subclinical hypothyroidism Ton thyroiditis Expected: 08/02/2025, Expires: 11/01/2025 [facility] Work Phone: Comment on above: Expected: 08/02/2025, Expires: Start: 08-02-2025 End: 11-01-2025 Thyroxine (T4) free [Mass/volume] in Serum or Plasma T4 FREE/FREE THYROXINE Lab Routine Subclinical hypothyroidism Ton thyroiditis Expected: 08/02/2025, Expires: 11/01/2025 [facility] Comment on above: Expected: 08/02/2025, Expires: Start: 08-02-2025 End: 08-02-2025 ambulatory 08/02/2025 10:00 AM EST Results Only [facility] [address] [place] [address] [facility] Start: 05-02-2025 End: 05-02-2025 Patient encounter procedure 05/02/2025 10:30 AM EDT Office Visit Neurology [address] [place] [address] [place] [address] [place] [address] headache-follow up Neurology Comment on above: headache-follow up Start: 04-12-2025 End: 04-12-2025 Patient encounter procedure 04/12/2025 9:00 AM EDT Appointment [facility] [address] [place] [address] [employer] [facility] Comment on above: [employer] Start: 04-11-2025 End: 04-11-2025 Patient encounter procedure 04/11/2025 9:00 AM EDT Appointment [facility] [address] [facility] [place] [address] [employer] [facility] Comment on above: [employer] Start: 04-10-2025 Influenza vaccination [facility] Start: 04-06-2025 End: 04-06-2025 Patient encounter procedure 04/06/2025 9:00 AM EDT Appointment [facility] [address] [facility] [place] [address] [employer] [facility] Comment on above: [employer] Start: 04-05-2025 End: 04-05-2025 ambulatory 04/05/2025 10:00 AM EDT [facility] Neurology Pain [address] [address] [place] [address] Sania Price PA-C [address] [place] [address] Neurology Pain Start: 04-04-2025 End: 04-04-2025 Patient encounter procedure 04/04/2025 9:00 AM EDT Appointment [facility] [address] [place] [address] [employer] [facility] Comment on above: [employer] Start: 04-03-2025 End: 04-03-2025 Patient encounter procedure 04/03/2025 9:00 AM EDT Appointment [facility] [address] [place] [address] [employer] [facility] Comment on above: [employer] Start: 03-30-2025 End: 03-30-2025 Patient encounter procedure 03/30/2025 9:00 AM EDT Appointment [facility] [address] [place] [address] [employer] [facility] Comment on above: [employer] Start: 03-29-2025 End: 03-29-2025 Patient encounter procedure 03/29/2025 9:00 AM EDT Appointment [facility] [address] [place], [place] [id number] [employer] [facility] Comment on above: [employer] Start: 03-28-2025 End: 03-28-2025 Patient encounter procedure 03/28/2025 9:00 AM EDT Appointment [facility] [address] [place] [address] [employer] [facility] Comment on above: [employer] Start: 03-27-2025 End: 03-27-2025 Patient encounter procedure 03/27/2025 9:00 AM EDT Appointment [facility] [address] [place] [address] [employer] [facility] Comment on above: [employer] Start: 03-23-2025 End: 03-23-2025 Patient encounter procedure 03/23/2025 9:00 AM EDT Appointment [facility] [address] [place] [address] [employer] [facility] Comment on above: [employer] Start: 03-22-2025 End: 03-22-2025 Patient encounter procedure 03/22/2025 9:00 AM EDT Appointment [facility] [address] [facility] [place] [address] [employer] [facility] Comment on above: [employer] Start: 03-21-2025 End: 03-21-2025 Patient encounter procedure Gastro[facility] [place] Comment on above: New patient [employer] f/u Start: 03-20-2025 End: 03-20-2025 Patient encounter procedure 03/20/2025 9:00 AM EDT Appointment [facility] [address] [facility] [place] [address] [employer] [facility] Comment on above: [employer] [facility] Start: 03-16-2025 End: 03-16-2025 Patient encounter procedure 03/16/2025 9:00 AM EDT Appointment [facility] [address] [place] [address] [employer] [facility] Comment on above: [employer] [facility] Start: 03-15-2025 End: 03-15-2025 Patient encounter procedure 03/15/2025 9:00 AM EDT Appointment [facility] 1 [facility] [place] [address] [employer] [facility] Comment on above: [employer] Start: 03-14-2025 End: 03-14-2025 Patient encounter procedure 03/14/2025 9:00 AM EDT Appointment [facility] [address] [facility] [place] [address] [employer] [facility] Comment on above: [employer] [facility] Start: 03-13-2025 End: 03-13-2025 Patient encounter procedure 03/13/2025 9:00 AM EDT Appointment [facility] [address] [facility] [place] [address] [employer] [facility] Comment on above: [employer] [facility] Start: 03-10-2025 End: 03-10-2025 ambulatory 03/10/2025 12:45 PM EDT [facility] Orthopaedics [address] [address] Irene Randolph [address] [place] [address] MRI results Orthopaedics Comment on above: MRI results Start: 03-09-2025 End: 03-09-2025 Patient encounter procedure 03/09/2025 9:00 AM EDT Appointment [facility] [address] [facility] [place] [address] [employer] [facility] Comment on above: [facility] Start: 03-08-2025 End: 03-08-2025 Patient encounter procedure Neurology Comment on above: headache-follow up [facility] [facility] Start: 03-07-2025 End: 03-07-2025 Patient encounter procedure [facility] Comment on above: 3 MTH F/U Thyroid [employer] [facility] Start: 03-06-2025 Bacteria identified in Urine by Culture Urine Culture [facility] Start: 03-06-2025 End: 03-06-2025 Patient encounter procedure 03/06/2025 12:30 PM EDT Office Visit Urgent Care [address] [place] [id number] Allyn Allen APRN.SPOOL TENDER [address] [place], [place] [address] Flank pain (Primary Dx); Rectal bleeding [facility]gent [facility] [place] Comment on above: Flank pain (Primary Dx); Rectal bleeding Start: 03-06-2025 [facility] Start: 03-06-2025 Subsequent hospital visit by physician 03/06/2025 9:00 AM EDT Hospital Encounter [facility] [address] [place] [address] [facility] Start: 03-03-2025 End: 03-03-2025 Patient encounter procedure 03/03/2025 11:00 AM EDT Appointment Radiology [address] [place], [place] [id number] Chronic migraine with aura without status migrainosus, not intractable [G43.E09] Radiology Comment on above: Chronic migraine with aura without statu s migrainosus, not intractable [G43.E09] Start: 03-02-2025 End: 03-02-2025 Patient encounter procedure 03/02/2025 9:00 AM EDT Appointment [facility] [address] [place] [address] [employer] [facility] Comment on above: [facility] Start: 03-01-2025 End: 03-01-2025 ambulatory 03/01/2025 9:00 AM EDT [facility] Neurology Pain [address] [place] [address] Yevgeniy Cummins DO [address] [place] [address] Chronic migraine with aura without status migrainosus, not intractable [G43.E09] Neurology Pain Comment on above: Chronic migraine with aura without statu s migrainosus, not intractable [G43.E09] Start: 02-28-2025 End: 02-28-2025 Patient encounter procedure 02/28/2025 1:30 PM EDT Appointment [facility] 1 [facility] [place] [address] Gloria Smith, CASINO GAMING INSPECTOR.SPOOL TENDER [address] [facility] [place] [address] H & P [facility] Comment on above: H & P Start: 02-28-2025 Subsequent hospital visit by physician 02/28/2025 1:30 PM EDT Hospital Encounter [facility] 1 [facility] [place] [address] Gloria Smith, CASINO GAMING INSPECTOR.SPOOL TENDER [address] [place] [address] [facility] Start: 02-27-2025 End: 02-27-2025 Patient encounter procedure 02/27/2025 9:30 AM EDT Office Visit OB/Gynecology [address] [place] [address] Darian Ames MD [address] [place] [address] discuss hormone replacement medications OB/Gynecology Comment on above: discuss hormone replacement medications Start: 02-26-2025 BP Controlled (<130/80) BP Controlled (<130/80) [facility] Start: 02-24-2025 End: 02-24-2025 Patient encounter procedure 02/24/2025 9:00 AM EDT Appointment Formerly [facility] [address] [place] [address] Ana Jones [facility] Assessment Formerly [facility] Comment on above: Assessment Start: 02-21-2025 End: 02-21-2025 Patient encounter procedure 02/21/2025 11:00 AM EDT Office Visit Neurology Pain [address] [place] [address] [place] [address] [place] [address] Chronic pain of left knee [M25.562, G89.29] Neurology Pain Comment on above: Chronic pain of left knee [M25.562, G89. 29] Start: 02-20-2025 End: 02-20-2025 ambulatory 02/20/2025 11:30 AM EDT [facility] Neurology Pain [address] [place] [address] Sania Price PA-C [address] [place] [address] Chronic pain of left knee [M25.562, G89.29] Neurology Pain Comment on above: Chronic pain of left knee [M25.562, G89. 29] Start: 02-17-2025 End: 02-17-2025 Patient encounter procedure 02/17/2025 10:00 AM EDT Office Visit Orthopaedics [address] [address] Irene Randolph DO [address] [place] [address] 6 week f/u, left knee Orthopaedics Comment on above: 6 week f/u, left knee Start: 02-14-2025 End: 02-14-2025 Patient encounter procedure 02/14/2025 9:10 AM EDT Appointment Mammogram [address] [place] [address] Encounter for gynecological examination (general) (routine) without abnormal findings [Z01.419]; Encounter for screening mammogram for breast cancer [Z12.31] Mammogram Comment on above: Encounter for gynecological examination (general) (routine) without abnormal findings [Z01.419]; Encounter for screening mammogram for breast cancer [Z12.31] Start: 02-13-2025 End: 02-13-2025 Patient encounter procedure 02/13/2025 11:10 AM EDT Office Visit OB/Gynecology [address] [place], [place] [address] Darian Ames MD [address] [place] [address] ANNUAL OB/Gynecology Comment on above: ANNUAL Start: 02-08-2025 End: 02-08-2025 Patient encounter procedure 02/08/2025 9:00 AM EDT Office Visit Pain Management [address] [facility] [address] [place] [address] Bob Esquivel MD [address] [facility] [id number] [place], [place] [id number] Intractable chronic migraine without aura and with status migrainosus [G43.711] Pain Management Comment on above: Intractable chronic migraine without aur a and with status migrainosus [G43.711] Start: 01-31-2025 End: 01-31-2025 Patient encounter procedure Gastroenterology [place] Comment on above: New patient Start: 01-26-2025 End: 04-27-2025 TSH W/REFLEX FT4 TSH W/REFLEX FT4 Lab Routine Hypothyroidism, unspecified type Expected: 01/26/2025 (Approximate), Expires: 04/27/2025 [facility] Work Phone: Comment on above: Expected: 01/26/2025 (Approximate), Expi res: 04/27/2025 Start: 01-23-2025 End: 01-23-2025 Patient encounter procedure 01/23/2025 10:30 AM EDT Office Visit Neurology [address] [place] [address] [place] [id number] [place] [address] headache-follow up Neurology Comment on above: headache-follow up Start: 01-20-2025 End: 01-20-2025 Patient encounter procedure 01/20/2025 8:00 AM EDT Appointment [facility] SURGERY [address] [place] [address] Candis Gamez MD [address] [place] [phone] Davonte Shah pt; colon and EGD LD SURGERY Comment on above: Davonte Shah pt; colon and EGD Start: 01-17-2025 End: 01-17-2025 Patient encounter procedure Mammogram Comment on above: Encounter for screening mammogram for br east cancer [Z12.31] *Needs U/S schedule Comp- VERY VERY LATE Follow up (2018) due for bilat Encounter for screen ing mammogram for breast cancer [Z12.31]; Abnormal mammogram of right breast [R92.8] Comp- VERY VERY LATE Follow up (2018) due for bilat Start: 01-12-2025 End: 01-12-2025 Patient encounter procedure Radiology Comment on above: left knee LT Knee pain, not be nding, not straight, still in brace and on crutches L knee. Start: 01-11-2025 End: 01-11-2025 ambulatory 01/11/2025 11:15 AM EDT Procedure [facility] [address] [place] [address] Ani Rajput, ANDREA.SPOOL TENDER [address] [place] [address] AUTH GOOD NPCR LMS - Sphenopalatine ganglion block (3 of 3); seafood & shellfish allergy [facility] Comment on above: AUTH GOOD NPCR LMS - Sphenopalatine gang lion block (3 of 3); seafood & shellfish allergy Start: 01-10-2025 End: 01-10-2025 Anesthesia consultation 01/10/2025 11:59 PM EDT Anesthesia Event Neurology Pain [address] [place] [address] Jose Rodriguez MD [facility] [place] [address] Neurology Pain Start: 01-10-2025 End: 04-11-2025 TOXICOLOGY SCREEN, ROUTINE URINE TOXICOLOGY SCREEN, ROUTINE URINE Lab Routine Chronic pain of left knee Medication management Expected: 01/10/2025, Expires: 04/11/2025 [facility] Work Phone: Comment on above: Expected: 01/10/2025, Expires: Start: 01-10-2025 End: 01-10-2025 Patient encounter procedure 01/10/2025 10:00 AM EDT Office Visit Neurology Pain [address] [place] [address] Sania Price PA-C [address] [place], [place] [address] Chronic pain of left knee [M25.562, G89.29] Neurology Pain Comment on above: Chronic pain of left knee [M25.562, G89. 29] Start: 01-09-2025 End: 01-09-2025 Follow-up encounter 01/09/2025 4:00 PM EDT [facility] [address] [place] [address] Ani Rajput, CASINO GAMING INSPECTOR.SPOOL TENDER [facility] [place] [phone] Block follow up VV (between the 2nd and 3rd ones) [facility] Comment on above: Block follow up VV (between the 2nd and 3rd ones) Start: 12-21-2024 End: 12-21-2024 ambulatory [facility] Comment on above: Sphenopalatine ganglion block (3 of 3); seafood & shellfish allergy Sphenopalatine gangl ion block (2 of 3); seafood & shellfish allergy Start: 12-20-2024 End: 12-20-2024 Patient encounter procedure 12/20/2024 2:00 PM EDT Office Visit Neurology Pain [address] [place] [address] [place] [address] [place], [place] [phone] Chronic pain of left knee [M25.562, G89.29] Neurology Pain Comment on above: Chronic pain of left knee [M25.562, G89. 29] Start: 12-15-2024 End: 12-15-2024 Patient encounter procedure 12/15/2024 10:30 AM EDT Office Visit [facility] [address] [place] [address] Frida Vargas APRN.SPOOL TENDER [address] [place] [address] Nerve blocks follow up [facility] Comment on above: Nerve blocks follow up Start: 12-13-2024 End: 12-13-2024 ambulatory 12/13/2024 1:45 PM EDT Procedure [facility] [address] [place] [phone] Steve Thomson APRN.SPOOL TENDER [address] [place] [phone] AUTH GOOD NPCR LMS - Sphenopalatine ganglion block (2 of 3); seafood & shellfish allergy [facility] Comment on above: AUTH GOOD NPCR LMS - Sphenopalatine gang lion block (2 of 3); seafood & shellfish allergy Start: 12-12-2024 End: 12-12-2024 ambulatory [facility] Comment on above: Dx: Chronic pain of left knee [M25.562, G89.29 (ICD-10-CM)]; Arthrofibrosis of knee joint, left [M24.662 (ICD-10-CM)] My knee Start: 12-09-2024 End: 12-09-2024 ambulatory 12/09/2024 1:45 PM EDT OT/PT/Speech Visit [facility] [address] [place], [place] [phone] Ronnie Pettit, PT [address] [place], [place] [phone] Dx: Chronic pain of left knee [M25.562, G89.29 (ICD-10-CM)]; Arthrofibrosis of knee joint, left [M24.662 (ICD-10-CM)] [facility] Comment on above: Dx: Chronic pain of left knee [M25.562, G89.29 (ICD-10-CM)]; Arthrofibrosis of knee joint, left [M24.662 (ICD-10-CM)] Start: 12-07-2024 End: 12-07-2024 ambulatory 12/07/2024 1:30 PM EDT OT/PT/Speech Visit [facility] [address] [place] [address] Ronnie Pettit, PT [address] [place] [address] Dx: Chronic pain of left knee [M25.562, G89.29 (ICD-10-CM)]; Arthrofibrosis of knee joint, left [M24.662 (ICD-10-CM)] [facility] Comment on above: Dx: Chronic pain of left knee [M25.562, G89.29 (ICD-10-CM)]; Arthrofibrosis of knee joint, left [M24.662 (ICD-10-CM)] Start: 12-07-2024 End: 12-07-2024 ambulatory 12/07/2024 11:15 AM EDT OT/PT/Speech Visit [facility] [address] [place] [address] Steph Neely, PT My knee [facility] Comment on above: My knee Start: 12-06-2024 End: 12-06-2024 Patient encounter procedure 12/06/2024 2:20 PM EDT Office Visit [address] [phone] Iveth Hernandez, CASINO GAMING INSPECTOR.[facility] [address] [place] [address] est care physical [facility] Comment on above: est care physical Start: 12-05-2024 End: 12-05-2024 ambulatory 12/05/2024 2:15 PM EDT OT/PT/Speech Visit [facility] [address] [place], [place] [phone] Ronnie Pettit, PT [address] [place] [address] Dx: Chronic pain of left knee [M25.562, G89.29 (ICD-10-CM)]; Arthrofibrosis of knee joint, left [M24.662 (ICD-10-CM)] [facility] Comment on above: Dx: Chronic pain of left knee [M25.562, G89.29 (ICD-10-CM)]; Arthrofibrosis of knee joint, left [M24.662 (ICD-10-CM)] Start: 12-02-2024 DIABETES SCREEN DIABETES SCREEN [facility] Start: 12-01-2024 End: 12-01-2024 ambulatory 12/01/2024 2:15 PM EDT OT/PT/Speech Visit [facility] [address] [place], [place] [phone] Ronnie Pettit, PT [address] [place], [place] [phone] Dx: Chronic pain of left knee [M25.562, G89.29 (ICD-10-CM)]; Arthrofibrosis of knee joint, left [M24.662 (ICD-10-CM)] [facility] Comment on above: Dx: Chronic pain of left knee [M25.562, G89.29 (ICD-10-CM)]; Arthrofibrosis of knee joint, left [M24.662 (ICD-10-CM)] Start: 12-01-2024 End: 12-01-2024 Patient encounter procedure 12/01/2024 9:00 AM EDT Office Visit Neurology Pain [address] [place] [address] [place] [address] [place] [address] Chronic pain of left knee [M25.562, G89.29] Neurology Pain Comment on above: Chronic pain of left knee [M25.562, G89. 29] Start: 11-30-2024 End: 11-30-2024 ambulatory 11/30/2024 11:30 AM EDT Procedure [facility] [place] [address] Ani Rajput, ANDREA.SPOOL TENDER [facility] [place] [phone] Sphenopalatine ganglion block (3 of 3); seafood & shellfish allergy [facility] Comment on above: Sphenopalatine ganglion block (3 of 3); seafood & shellfish allergy Start: 11-28-2024 End: 11-28-2024 ambulatory 11/28/2024 2:15 PM EDT OT/PT/Speech Visit [facility] [address] [facility] [place], [place] [phone] Ronnie Pettit, PT [address] [place], [place] [phone] Dx: Chronic pain of left knee [M25.562, G89.29 (ICD-10-CM)]; Arthrofibrosis of knee joint, left [M24.662 (ICD-10-CM)] [facility] Comment on above: Dx: Chronic pain of left knee [M25.562, G89.29 (ICD-10-CM)]; Arthrofibrosis of knee joint, left [M24.662 (ICD-10-CM)] Start: 11-25-2024 End: 11-25-2024 ambulatory 11/25/2024 1:45 PM EDT OT/PT/Speech Visit [facility] [address] [facility] [place] [place] [phone] Ronnie Pettit, PT [address] [place], [place] [phone] Dx: Chronic pain of left knee [M25.562, G89.29 (ICD-10-CM)]; Arthrofibrosis of knee joint, left [M24.662 (ICD-10-CM)] [facility] Comment on above: Dx: Chronic pain of left knee [M25.562, G89.29 (ICD-10-CM)]; Arthrofibrosis of knee joint, left [M24.662 (ICD-10-CM)] Start: 11-23-2024 End: 11-23-2024 ambulatory 11/23/2024 1:30 PM EDT OT/PT/Speech Visit [facility] [address] [place] [address] Ronnie Pettit, PT [address] [place], [place] [phone] Dx: Chronic pain of left knee [M25.562, G89.29 (ICD-10-CM)]; Arthrofibrosis of knee joint, left [M24.662 (ICD-10-CM)] [facility] Comment on above: Dx: Chronic pain of left knee [M25.562, G89.29 (ICD-10-CM)]; Arthrofibrosis of knee joint, left [M24.662 (ICD-10-CM)] Start: 11-21-2024 End: 11-21-2024 ambulatory 11/21/2024 2:15 PM EDT OT/PT/Speech Visit [facility] [address] [place] [address] Ronnie Pettit, PT [address] [place], [place] [phone] Dx: Chronic pain of left knee [M25.562, G89.29 (ICD-10-CM)]; Arthrofibrosis of knee joint, left [M24.662 (ICD-10-CM)] [facility] Comment on above: Dx: Chronic pain of left knee [M25.562, G89.29 (ICD-10-CM)]; Arthrofibrosis of knee joint, left [M24.662 (ICD-10-CM)] Start: 11-18-2024 End: 11-18-2024 ambulatory 11/18/2024 1:45 PM EDT OT/PT/Speech Visit [facility] [address] [place] [address] Ronnie Pettit, PT [address] [place] [address] Dx: Chronic pain of left knee [M25.562, G89.29 (ICD-10-CM)]; Arthrofibrosis of knee joint, left [M24.662 (ICD-10-CM)] [facility] Comment on above: Dx: Chronic pain of left knee [M25.562, G89.29 (ICD-10-CM)]; Arthrofibrosis of knee joint, left [M24.662 (ICD-10-CM)] Start: 11-17-2024 End: 11-17-2024 ambulatory 11/17/2024 12:15 PM EDT OT/PT/Speech Visit [facility] [address] [place], [place] [phone] Ronnie Pettit, PT [address] [place] [address] Dx: Chronic pain of left knee [M25.562, G89.29 (ICD-10-CM)]; Arthrofibrosis of knee joint, left [M24.662 (ICD-10-CM)] [facility] Comment on above: Dx: Chronic pain of left knee [M25.562, G89.29 (ICD-10-CM)]; Arthrofibrosis of knee joint, left [M24.662 (ICD-10-CM)] Start: 11-16-2024 End: 11-16-2024 ambulatory 11/16/2024 11:30 AM EDT Procedure [facility] [address] [place] [address] Ani Rajput APRN.SPOOL TENDER [address] [place] [address] Sphenopalatine ganglion block (2 of 3); seafood & shellfish allergy [facility] Comment on above: Sphenopalatine ganglion block (2 of 3); seafood & shellfish allergy Start: 11-14-2024 End: 11-14-2024 ambulatory 11/14/2024 2:45 PM EDT OT/PT/Speech Visit [facility] [address] [facility] [place], [place] [phone] Sonia Collins, SALON CUSTOMER EXPERIENCE SPECIALIST [address] [place] [address] Dx: Chronic pain of left knee [M25.562, G89.29 (ICD-10-CM)]; Arthrofibrosis of knee joint, left [M24.662 (ICD-10-CM)] [facility] Comment on above: Dx: Chronic pain of left knee [M25.562, G89.29 (ICD-10-CM)]; Arthrofibrosis of knee joint, left [M24.662 (ICD-10-CM)] Start: 11-11-2024 End: 11-11-2024 ambulatory 11/11/2024 1:45 PM EDT OT/PT/Speech Visit [facility] [address] [place], [place] [phone] Ronnie Pettit, PT [address] [place], [place] [phone] Dx: Chronic pain of left knee [M25.562, G89.29 (ICD-10-CM)]; Arthrofibrosis of knee joint, left [M24.662 (ICD-10-CM)] [facility] Comment on above: Dx: Chronic pain of left knee [M25.562, G89.29 (ICD-10-CM)]; Arthrofibrosis of knee joint, left [M24.662 (ICD-10-CM)] Start: 11-11-2024 End: 11-11-2024 ambulatory 11/11/2024 11:30 AM EDT OT/PT/Speech Visit [facility] [address] [facility] [place] [address] Ronnie Pettit, PT [address] [place], [place] [phone] Dx: Chronic pain of left knee [M25.562, G89.29 (ICD-10-CM)]; Arthrofibrosis of knee joint, left [M24.662 (ICD-10-CM)] [facility] Comment on above: Dx: Chronic pain of left knee [M25.562, G89.29 (ICD-10-CM)]; Arthrofibrosis of knee joint, left [M24.662 (ICD-10-CM)] Start: 11-09-2024 End: 11-09-2024 ambulatory 11/09/2024 2:15 PM EDT OT/PT/Speech Visit [facility] [address] [facility] [place], [place] [phone] Ronnie Pettit, PT [address] [place], [place] [phone] Dx: Chronic pain of left knee [M25.562, G89.29 (ICD-10-CM)]; Arthrofibrosis of knee joint, left [M24.662 (ICD-10-CM)] [facility] Comment on above: Dx: Chronic pain of left knee [M25.562, G89.29 (ICD-10-CM)]; Arthrofibrosis of knee joint, left [M24.662 (ICD-10-CM)] Start: 11-07-2024 End: 11-07-2024 ambulatory 11/07/2024 2:45 PM EDT OT/PT/Speech Visit [facility] [address] [place] [address] Sonia Collins, SALON CUSTOMER EXPERIENCE SPECIALIST [address] [place] [address] Dx: Chronic pain of left knee [M25.562, G89.29 (ICD-10-CM)]; Arthrofibrosis of knee joint, left [M24.662 (ICD-10-CM)] [facility] Comment on above: Dx: Chronic pain of left knee [M25.562, G89.29 (ICD-10-CM)]; Arthrofibrosis of knee joint, left [M24.662 (ICD-10-CM)] Start: 11-04-2024 End: 11-04-2024 ambulatory 11/04/2024 1:45 PM EDT OT/PT/Speech Visit [facility] [address] [place] [address] Ronnie Pettit, PT [address] [place] [address] Dx: Chronic pain of left knee [M25.562, G89.29 (ICD-10-CM)]; Arthrofibrosis of knee joint, left [M24.662 (ICD-10-CM)] [facility] Comment on above: Dx: Chronic pain of left knee [M25.562, G89.29 (ICD-10-CM)]; Arthrofibrosis of knee joint, left [M24.662 (ICD-10-CM)] Start: 11-02-2024 End: 11-02-2024 ambulatory 11/02/2024 1:30 PM EDT OT/PT/Speech Visit [facility] [address] [place] [address] Ronnie Pettit, PT [address] [place] [address] Dx: Chronic pain of left knee [M25.562, G89.29 (ICD-10-CM)]; Arthrofibrosis of knee joint, left [M24.662 (ICD-10-CM)] [facility] Comment on above: Dx: Chronic pain of left knee [M25.562, G89.29 (ICD-10-CM)]; Arthrofibrosis of knee joint, left [M24.662 (ICD-10-CM)] Start: 10-31-2024 End: 10-31-2024 ambulatory 10/31/2024 11:30 AM EDT OT/PT/Speech Visit [facility] [address] [place] [address] Ronnie Pettit, PT [address] [place] [address] Dx: Chronic pain of left knee [M25.562, G89.29 (ICD-10-CM)]; Arthrofibrosis of knee joint, left [M24.662 (ICD-10-CM)] [facility] Comment on above: Dx: Chronic pain of left knee [M25.562, G89.29 (ICD-10-CM)]; Arthrofibrosis of knee joint, left [M24.662 (ICD-10-CM)] Start: 10-28-2024 End: 10-28-2024 Patient encounter procedure 10/28/2024 2:00 PM EDT Office Visit [facility] [address] [place] [address] Iveth Hernandez, CASINO GAMING INSPECTOR.[facility] [address] [place], [place] [phone] est care physical [facility] Comment on above: est care physical Start: 10-27-2024 End: 10-27-2024 ambulatory 10/27/2024 2:15 PM EDT OT/PT/Speech Visit [facility] [address] [facility] [address] Ronnie Pettit, PT [address] [place] [address] Dx: Chronic pain of left knee [M25.562, G89.29 (ICD-10-CM)]; Arthrofibrosis of knee joint, left [M24.662 (ICD-10-CM)] [facility] Comment on above: Dx: Chronic pain of left knee [M25.562, G89.29 (ICD-10-CM)]; Arthrofibrosis of knee joint, left [M24.662 (ICD-10-CM)] Start: 10-26-2024 End: 10-26-2024 ambulatory [facility] Comment on above: Sphenopalatine ganglion block (1 of 3); seafood & shellfish allergy AUTH GOOD NPCR LMS - Sphenopalatine ganglion block (1 of 3); seafood & shellfish allergy Start: 10-24-2024 End: 10-24-2024 ambulatory [facility] Comment on above: Dx: Chronic pain of left knee [M25.562, G89.29 (ICD-10-CM)]; Arthrofibrosis of knee joint, left [M24.662 (ICD-10-CM)] Start: 10-20-2024 End: 10-20-2024 ambulatory 10/20/2024 2:15 PM EDT OT/PT/Speech Visit [facility] [address] [facility] [place] [address] Ronnie Pettit, PT [address] [place], [place] [phone] Dx: Chronic pain of left knee [M25.562, G89.29 (ICD-10-CM)]; Arthrofibrosis of knee joint, left [M24.662 (ICD-10-CM)] [facility] Comment on above: Dx: Chronic pain of left knee [M25.562, G89.29 (ICD-10-CM)]; Arthrofibrosis of knee joint, left [M24.662 (ICD-10-CM)] Start: 10-19-2024 End: 10-19-2024 Patient encounter procedure Orthopaedics Comment on above: follow up after labs 1st post op Lt knee manipulation 10/04/24 Start: 10-19-2024 End: 01-18-2025 Borrelia burgdorferi IgG and IgM panel - Serum LYME AB LATE >30 DAYS SYMPTOMS Lab Routine Chronic pain of left knee Arthrofibrosis of knee joint, left Expected: 10/19/2024, Expires: 01/18/2025 [facility] Comment on above: Expected: 10/19/2024, Expires: Start: 10-19-2024 End: 09-21-2025 C reactive protein [Mass/volume] in Serum or Plasma C-REACTIVE PROTEIN Lab Routine Chronic pain of left knee Arthrofibrosis of knee joint, left Expected: 10/19/2024, Expires: 09/21/2025 [facility] Comment on above: Expected: 10/19/2024, Expires: Start: 10-19-2024 End: 09-21-2025 Creatine kinase [Enzymatic activity/volume] in Serum or Plasma CREATINE KINASE/CK Lab Routine Chronic pain of left knee Arthrofibrosis of knee joint, left Expected: 10/19/2024, Expires: 09/21/2025 [facility] Comment on above: Expected: 10/19/2024, Expires: Start: 10-19-2024 End: 09-21-2025 Cyclic citrullinated peptide IgG Ab [Units/volume] in Serum or Plasma CCP ANTIBODY IGG Lab Routine Chronic pain of left knee Arthrofibrosis of knee joint, left Expected: 10/19/2024, Expires: 09/21/2025 [facility] Comment on above: Expected: 10/19/2024, Expires: Start: 10-19-2024 End: 09-21-2025 Erythrocyte sedimentation rate SEDIMENTATION RATE, WESTERGREN Lab Routine Chronic pain of left knee Arthrofibrosis of knee joint, left Expected: 10/19/2024, Expires: 09/21/2025 [facility] Comment on above: Expected: 10/19/2024, Expires: Start: 10-19-2024 End: 09-21-2025 Nuclear Ab [Presence] in Serum by Immunoassay NIKKI PANEL BLOOD SCRN Lab Routine Chronic pain of left knee Arthrofibrosis of knee joint, left Expected: 10/19/2024, Expires: 09/21/2025 [facility] Comment on above: Expected: 10/19/2024, Expires: Start: 10-19-2024 End: 09-21-2025 Rheumatoid factor [Units/volume] in Serum or Plasma RHEUMATOID FACTOR Lab Routine Chronic pain of left knee Arthrofibrosis of knee joint, left Expected: 10/19/2024, Expires: 09/21/2025 [facility] Work Phone: Comment on above: Expected: 10/19/2024, Expires: Start: 10-19-2024 End: 09-21-2025 Urate [Mass/volume] in Serum or Plasma URIC ACID Lab Routine Chronic pain of left knee Arthrofibrosis of knee joint, left Expected: 10/19/2024, Expires: 09/21/2025 [facility] Comment on above: Expected: 10/19/2024, Expires: Start: 10-18-2024 End: 10-18-2024 ambulatory 10/18/2024 3:00 PM EDT OT/PT/Speech Visit [facility] [address] [place] [phone] Ronnie Pettit, PT [address] [place] [address] Dx: Chronic pain of left knee [M25.562, G89.29 (ICD-10-CM)]; Arthrofibrosis of knee joint, left [M24.662 (ICD-10-CM)] [facility] Comment on above: Dx: Chronic pain of left knee [M25.562, G89.29 (ICD-10-CM)]; Arthrofibrosis of knee joint, left [M24.662 (ICD-10-CM)] Start: 10-17-2024 End: 10-17-2024 Patient encounter procedure 10/17/2024 11:30 AM EDT Office Visit Orthopaedics [address] [address] Pawel Gonzales PA-C [address] [place] [address] 1st post op Lt knee manipulation 10/04/24 Orthopaedics Comment on above: 1st post op Lt knee manipulation 10/04/24 Start: 10-14-2024 End: 10-14-2024 ambulatory 10/14/2024 11:15 AM EST OT/PT/Speech Visit [facility] [address] [place] [address] Ronnie Pettit, PT [address] [place], [place] [phone] Dx: Chronic pain of left knee [M25.562, G89.29 (ICD-10-CM)]; Arthrofibrosis of knee joint, left [M24.662 (ICD-10-CM)] [facility] Comment on above: Dx: Chronic pain of left knee [M25.562, G89.29 (ICD-10-CM)]; Arthrofibrosis of knee joint, left [M24.662 (ICD-10-CM)] Start: 10-12-2024 End: 10-12-2024 ambulatory 10/12/2024 11:30 AM EST OT/PT/Speech Visit [facility] [address] [place] [place], [place] [phone] Ronnie Pettit, PT [address] [place], [place] [phone] Dx: Chronic pain of left knee [M25.562, G89.29 (ICD-10-CM)]; Arthrofibrosis of knee joint, left [M24.662 (ICD-10-CM)] [facility] Comment on above: Dx: Chronic pain of left knee [M25.562, G89.29 (ICD-10-CM)]; Arthrofibrosis of knee joint, left [M24.662 (ICD-10-CM)] Start: 10-10-2024 End: 10-10-2024 ambulatory 10/10/2024 5:15 PM EST OT/PT/Speech Visit [facility] [address] [facility] [place] [address] Ronnie Pettit, PT [address] [place] [address] Dx: Chronic pain of left knee [M25.562, G89.29 (ICD-10-CM)]; Arthrofibrosis of knee joint, left [M24.662 (ICD-10-CM)] [facility] Comment on above: Dx: Chronic pain of left knee [M25.562, G89.29 (ICD-10-CM)]; Arthrofibrosis of knee joint, left [M24.662 (ICD-10-CM)] Start: 10-05-2024 End: 10-05-2024 ambulatory 10/05/2024 2:15 PM EST OT/PT/Speech Visit [facility] [address] [facility] [place] [address] Ronnie Pettit, PT [address] [place], [place] [address] Dx: Chronic pain of left knee [M25.562, G89.29 (ICD-10-CM)]; Acute medial meniscus tear of left knee, initial encounter [S83.242A (ICD-10-CM)] [facility] Comment on above: Dx: Chronic pain of left knee [M25.562, G89.29 (ICD-10-CM)]; Acute medial meniscus tear of left knee, initial encounter [S83.242A (ICD-10-CM)] Start: 10-04-2024 End: 10-04-2024 Admission to same day surgery center 10/04/2024 11:37 AM EST - 10/04/2024 1:12 PM EST Surgery Surgery [address] [place] [address] Irene Randolph DO [address] [place] [address] MANIPULATION KNEE JOINT UNDER GENERAL ANES Surgery Comment on above: MANIPULATION KNEE JOINT UNDER GENERAL AN ES Start: 10-04-2024 End: 10-04-2024 Arthroscopy knee synovectomy 2/>compartments ARTHROSCOPY KNEE SYNOVECTOMY MAJOR Chronic pain of left knee Arthrofibrosis of knee joint, left 10/04/2024 11:37 AM EST ME OR Start: 10-04-2024 End: 10-04-2024 Manipulation knee joint under general anesthesia MANIPULATION KNEE JOINT UNDER GENERAL ANES Chronic pain of left knee Arthrofibrosis of knee joint, left 10/04/2024 11:37 AM EST ME OR Start: 10-04-2024 Subsequent hospital visit by physician 10/04/2024 11:37 AM EST Hospital Encounter Surgery [address] [place] [address] Irene Randolph DO [address] [place] [address] Chronic pain of left knee [M25.562, G89.29], Arthrofibrosis of knee joint, left [M24.662] Surgery Comment on above: Chronic pain of left knee [M25.562, G89. 29], Arthrofibrosis of knee joint, left [M24.662] Start: 10-04-2024 End: 10-04-2024 Admission to same day surgery center 10/04/2024 9:45 AM EST - 10/04/2024 11:20 AM EST Surgery Surgery [address] [place] [address] Irene Randolph DO [address] [place] [address] ARTHROSCOPY KNEE SYNOVECTOMY MAJOR Surgery Comment on above: ARTHROSCOPY KNEE SYNOVECTOMY MAJOR Start: 10-04-2024 End: 10-04-2024 Arthroscopy knee synovectomy 2/>compartments ARTHROSCOPY KNEE SYNOVECTOMY MAJOR Chronic pain of left knee Arthrofibrosis of knee joint, left 10/04/2024 9:45 AM EST ME OR Start: 10-04-2024 End: 10-04-2024 Manipulation knee joint under general anesthesia MANIPULATION KNEE JOINT UNDER GENERAL ANES Chronic pain of left knee Arthrofibrosis of knee joint, left 10/04/2024 9:45 AM EST ME OR Start: 10-04-2024 Subsequent hospital visit by physician 10/04/2024 9:45 AM EST Hospital Encounter Surgery [address] [place] [address] Irene Randolph DO [address] [place] [address] Chronic pain of left knee [M25.562, G89.29], Arthrofibrosis of knee joint, left [M24.662] Surgery Comment on above: Chronic pain of left knee [M25.562, G89. 29], Arthrofibrosis of knee joint, left [M24.662] Start: 09-26-2024 End: 09-26-2024 ambulatory 09/26/2024 11:00 AM EST Results Only [facility] [address] [place] [address] [facility] Start: 09-25-2024 End: 12-25-2024 CBC panel - Blood by Automated count COMPLETE BLOOD COUNT Lab Routine Intractable chronic migraine without aura and without status migrainosus Expected: 09/25/2024, Expires: 12/25/2024 [facility] Work Phone: Comment on above: Expected: 09/25/2024, Expires: Start: 09-25-2024 End: 12-25-2024 Comprehensive metabolic 2000 panel - Serum or Plasma COMPREHENSIVE METABOLIC PANEL Lab Routine Intractable chronic migraine without aura and without status migrainosus Expected: 09/25/2024, Expires: 12/25/2024 [facility] Comment on above: Expected: 09/25/2024, Expires: Start: 09-22-2024 End: 09-22-2024 Patient encounter procedure 09/22/2024 10:45 AM EST Office Visit [facility] [address] [place] [address] Frida Vargas APRN.SPOOL TENDER [address] [place] [address] Intractable chronic migraine without aura and without status migrainosus; patient last seen February 2022 [facility] Comment on above: Intractable chronic migraine without aur a and without status migrainosus; patient last seen February 2022 Start: 09-21-2024 End: 09-21-2024 Patient encounter procedure 09/21/2024 9:00 AM EST Office Visit Orthopaedics [address] [address] Irene Randolph DO [address] [place] [address] post op - left knee manip Orthopaedics Comment on above: post op - left knee manip Start: 09-20-2024 End: 09-20-2024 ambulatory 09/20/2024 10:45 AM EST OT/PT/Speech Visit [facility] [address] [place] [address] Ronnie Pettit, PT [address] [place] [address] S83.242A (ICD-10-CM) - Tear of medial meniscus of left knee, current, unspecified tear type, initial encounter [facility] Comment on above: S83.242A (ICD-10-CM) - Tear of medial me niscus of left knee, current, unspecified tear type, initial encounter Start: 09-15-2024 End: 09-15-2024 ambulatory 09/15/2024 10:00 AM EST OT/PT/Speech Visit [facility] [address] [facility] [address] Ronnie Pettit, PT [address] [place] [address] S83.242A (ICD-10-CM) - Tear of medial meniscus of left knee, current, unspecified tear type, initial encounter [facility] Comment on above: S83.242A (ICD-10-CM) - Tear of medial me niscus of left knee, current, unspecified tear type, initial encounter Start: 09-12-2024 End: 09-12-2024 ambulatory 09/12/2024 2:15 PM EST OT/PT/Speech Visit [facility] [address] [place] [address] Ronnie Pettit, PT [address] [place] [address] S83.242A (ICD-10-CM) - Tear of medial meniscus of left knee, current, unspecified tear type, initial encounter [facility] Comment on above: S83.242A (ICD-10-CM) - Tear of medial me niscus of left knee, current, unspecified tear type, initial encounter Start: 09-07-2024 End: 09-07-2024 ambulatory 09/07/2024 2:15 PM EST OT/PT/Speech Visit [facility] [address] [place] [address] Ronnie Pettit, PT [address] [place] [address] S83.242A (ICD-10-CM) - Tear of medial meniscus of left knee, current, unspecified tear type, initial encounter [facility] Comment on above: S83.242A (ICD-10-CM) - Tear of medial me niscus of left knee, current, unspecified tear type, initial encounter Start: 09-05-2024 End: 09-05-2024 ambulatory 09/05/2024 2:15 PM EST OT/PT/Speech Visit [facility] [address] [place] [address] Ronnie Pettit, PT [address] [facility] [place] [facility] [place] [address] S83.242A (ICD-10-CM) - Tear of medial meniscus of left knee, current, unspecified tear type, initial encounter [facility] Comment on above: S83.242A (ICD-10-CM) - Tear of medial me niscus of left knee, current, unspecified tear type, initial encounter Start: 08-31-2024 End: 08-31-2024 ambulatory 08/31/2024 2:15 PM EST OT/PT/Speech Visit [facility] [address] [place] [address] Ronnie Pettit, PT [address] [place] [address] S83.242A (ICD-10-CM) - Tear of medial meniscus of left knee, current, unspecified tear type, initial encounter [facility] Comment on above: S83.242A (ICD-10-CM) - Tear of medial me niscus of left knee, current, unspecified tear type, initial encounter Start: 08-31-2024 End: 08-31-2024 Documentation procedure 08/31/2024 Plan of Care Documentation [facility] [address] [place] [address] [facility] Start: 08-29-2024 End: 08-29-2024 ambulatory 08/29/2024 2:15 PM EST OT/PT/Speech Visit [facility] [address] [place] [address] Ronnie Pettit, PT [address] [facility] [place] [address] S83.242A (ICD-10-CM) - Tear of medial meniscus of left knee, current, unspecified tear type, initial encounter [facility] Comment on above: S83.242A (ICD-10-CM) - Tear of medial me niscus of left knee, current, unspecified tear type, initial encounter Start: 08-25-2024 End: 08-25-2024 ambulatory 08/25/2024 9:[address] [facility] [employer] [facility] Neurology [address] [place] [address] [place] [address] [facility] [place] [address] chronic migraines Neurology Comment on above: chronic migraines Start: 08-25-2024 End: 08-25-2024 Patient encounter procedure 08/25/2024 8:[address] [facility] [employer] [facility] Endocrinology [address] [place] [address] Sarika Alvarado MD [address] [place] [address] Consult to Endocrine Medical Weight Management Endocrinology Comment on above: Consult to Endocrine Medical Weight Stephanie elsaent Start: 08-24-2024 End: 08-24-2024 ambulatory 08/24/2024 2:15 PM EST OT/PT/Speech Visit [facility] [address] [place] [address] Ronnie Pettit, PT [address] [place] [address] S83.242A (ICD-10-CM) - Tear of medial meniscus of left knee, current, unspecified tear type, initial encounter [facility] Comment on above: S83.242A (ICD-10-CM) - Tear of medial me niscus of left knee, current, unspecified tear type, initial encounter Start: 08-22-2024 End: 08-22-2024 ambulatory 08/22/2024 2:15 PM EST OT/PT/Speech Visit [facility] [address] [place] [address] Ronnie Pettit, PT [address] [facility] [place] [address] S83.242A (ICD-10-CM) - Tear of medial meniscus of left knee, current, unspecified tear type, initial encounter [facility] Comment on above: S83.242A (ICD-10-CM) - Tear of medial me niscus of left knee, current, unspecified tear type, initial encounter Start: 08-18-2024 End: 08-18-2024 Patient encounter procedure 08/18/2024 10:15 AM EST Office Visit Orthopaedics [address] [place] [address] Irene Randolph DO [address] [place] [address] 2nd post op Orthopaedics Comment on above: 2nd post op Start: 08-17-2024 End: 08-17-2024 ambulatory 08/17/2024 2:15 PM EST OT/PT/Speech Visit [facility] [address] [place] [address] Ronnie Pettit, PT [address] [facility] [place] [address] S83.242A (ICD-10-CM) - Tear of medial meniscus of left knee, current, unspecified tear type, initial encounter [facility] Comment on above: S83.242A (ICD-10-CM) - Tear of medial me niscus of left knee, current, unspecified tear type, initial encounter Start: 08-15-2024 End: 08-15-2024 ambulatory 08/15/2024 4:30 PM EST OT/PT/Speech Visit [facility] [address] [place] [address] Ronnie Pettit, PT [address] [place] [address] S83.242A (ICD-10-CM) - Tear of medial meniscus of left knee, current, unspecified tear type, initial encounter [facility] Comment on above: S83.242A (ICD-10-CM) - Tear of medial me niscus of left knee, current, unspecified tear type, initial encounter Start: 08-11-2024 End: 08-11-2024 ambulatory 08/11/2024 3:00 PM EST OT/PT/Speech Visit [facility] [address] [place] [address] Ronnie Pettit, PT [address] [place] [address] S83.242A (ICD-10-CM) - Tear of medial meniscus of left knee, current, unspecified tear type, initial encounter [facility] Comment on above: S83.242A (ICD-10-CM) - Tear of medial me niscus of left knee, current, unspecified tear type, initial encounter Start: 08-08-2024 End: 08-08-2024 ambulatory 08/08/2024 3:45 PM EST OT/PT/Speech Visit [facility] [address] [place] [address] Ronnie Pettit, PT [address] [place] [address] S83.242A (ICD-10-CM) - Tear of medial meniscus of left knee, current, unspecified tear type, initial encounter [facility] Comment on above: S83.242A (ICD-10-CM) - Tear of medial me niscus of left knee, current, unspecified tear type, initial encounter Start: 08-02-2024 End: 08-02-2024 Patient encounter procedure 08/02/2024 10:40 AM EST Office Visit Endocrinology [address] [place] [address] Debbie Pichardo MD [address] [facility] [place] [address] Please schedule an appointment with any endocrine provider to be seen in 6-8 weeks if possible - subclinical hypothyroidism Endocrinology Comment on above: Please schedule an appointment with any endocrine provider to be seen in 6-8 weeks if possible - subclinical hypothyroidism Start: 08-02-2024 End: 08-02-2024 ambulatory 08/02/2024 9:00 AM EST OT/PT/Speech Visit [facility] [address] [place] [facility] [place] [address] Steph Neely, PT S83.242A (ICD-10-CM) - Tear of medial meniscus of left knee, current, unspecified tear type, initial encounter [facility] Comment on above: S83.242A (ICD-10-CM) - Tear of medial me niscus of left knee, current, unspecified tear type, initial encounter Start: 07-29-2024 End: 07-29-2024 ambulatory 07/29/2024 8:00 AM EST OT/PT/Speech Visit [facility] [address] [place] [address] Charity Jensen, PT S83.242A (ICD-10-CM) - Tear of medial meniscus of left knee, current, unspecified tear type, initial encounter [facility] Comment on above: S83.242A (ICD-10-CM) - Tear of medial me niscus of left knee, current, unspecified tear type, initial encounter Start: 07-27-2024 End: 07-27-2024 ambulatory 07/27/2024 3:00 PM EST OT/PT/Speech Visit [facility] [address] [place] [address] Ronnie Pettit, PT [address] [facility] [place] [address] S83.242A (ICD-10-CM) - Tear of medial meniscus of left knee, current, unspecified tear type, initial encounter [facility] Comment on above: S83.242A (ICD-10-CM) - Tear of medial me niscus of left knee, current, unspecified tear type, initial encounter Start: 07-21-2024 End: 07-21-2024 Anesthesia consultation 07/21/2024 10:00 AM EST OT/PT/Speech Visit [facility] [address] [facility] [place] [address] Ronnie Pettit, PT [address] [place] [address] Left Knee - Post Op 2 weeks post op Left knee manipulation under anesthesia [facility] Comment on above: Left Knee - Post Op 2 weeks post op Left knee manipulation under anesthesia Start: 07-18-2024 End: 07-18-2024 Follow-up encounter 07/18/2024 2:20 PM EST [facility] Neurology [address] [id number] Uriel Greenwood MD [address] [facility] [address] [place] [address] Follow up Neurology Comment on above: Follow up Start: 07-14-2024 End: 07-14-2024 Patient encounter procedure 07/14/2024 3:00 PM EST Office Visit Orthopaedics [address] [place] [address] Irene Randolph DO [address] [facility] [place] [address] 1st post op Lt knee synovectomy 06/30/24 Orthopaedics Comment on above: 1st post op Lt knee synovectomy 06/30/24 Start: 06-30-2024 End: 06-30-2024 Admission to same day surgery center 06/30/2024 8:45 AM EST - 06/30/2024 10:15 AM EST Surgery Ambulatory Surgery [address] [place] [address] Irene Randolph, [address] [place] [address] ARTHROSCOPY KNEE SYNOVECTOMY MAJOR Ambulatory Surgery Comment on above: ARTHROSCOPY KNEE SYNOVECTOMY MAJOR Start: 06-30-2024 End: 06-30-2024 Anesthesia consultation 06/30/2024 8:45 AM EST Anesthesia Event Ambulatory Surgery [address] [place] [address] Kody Lowe, [facility] [address] [id number] Ambulatory Surgery Start: 06-30-2024 End: 06-30-2024 Arthroscopy knee synovectomy 2/>compartments ARTHROSCOPY KNEE SYNOVECTOMY MAJOR Fibrosis of left knee joint 06/30/2024 8:45 AM EST [facility] Start: 06-30-2024 Subsequent hospital visit by physician 06/30/2024 8:45 AM EST Hospital Encounter Ambulatory Surgery [address] [place] [address] Irene Randolph, [address] [facility] [place] [place] [id number] Fibrosis of left knee joint [M24.662] Ambulatory Surgery Comment on above: Fibrosis of left knee joint [M24.662] Start: 06-21-2024 End: 06-21-2024 ambulatory 06/21/2024 2:15 PM EST OT/PT/Speech Visit [facility] [address] [place] [address] Ronnie Pettit, PT [address] [place], [place] [id number] M25.562,G89.29 (ICD-10-CM) - Chronic pain of left knee [facility] Comment on above: M25.562,G89.29 (ICD-10-CM) - Chronic abby n of left knee Start: 06-19-2024 Subsequent hospital visit by physician 06/19/2024 Hospital Encounter HOSP MAIN [facility]060 [address] [id number] Gilmar Hunter MD [address] [place] [address] Unspecified convulsions [R56.9] [facility]060 Comment on above: Unspecified convulsions [R56.9] Start: 06-19-2024 End: 06-19-2024 Patient encounter procedure 06/19/2024 10:00 AM EST Office Visit Neurology [address] [id number] ADMIT Neurology Comment on above: ADMIT Start: 06-17-2024 End: 06-17-2024 ambulatory 06/17/2024 2:30 PM EST OT/PT/Speech Visit [facility] [address] [place] [address] Ronnie Pettit, PT [address] [place] [address] M25.562,G89.29 (ICD-10-CM) - Chronic pain of left knee [facility] Comment on above: M25.562,G89.29 (ICD-10-CM) - Chronic abby n of left knee Start: 06-16-2024 End: 06-16-2024 Patient encounter procedure 06/16/2024 10:00 AM EST Office Visit Orthopaedics [address] [place] [address] Irene Randolph DO [address] [place] [address] Post op Orthopaedics Comment on above: Post op Start: 06-14-2024 End: 06-14-2024 ambulatory 06/14/2024 2:15 PM EST OT/PT/Speech Visit [facility] [address] [place] [address] Ronnie Pettit, PT [address] [facility] [place] [facility] [place] [address] M25.562,G89.29 (ICD-10-CM) - Chronic pain of left knee [facility] Comment on above: M25.562,G89.29 (ICD-10-CM) - Chronic abby n of left knee Start: 06-10-2024 End: 06-10-2024 ambulatory 06/10/2024 2:00 PM EDT OT/PT/Speech Visit [facility] [address] [facility] [place] [address] Sonia Collins, [employer] CUST[employer]ER EXPERIENCE SPECIALIST [address] [place] [address] M25.562,G89.29 (ICD-10-CM) - Chronic pain of left knee [facility] Comment on above: M25.562,G89.29 (ICD-10-CM) - Chronic abby n of left knee Start: 06-07-2024 End: 06-07-2024 ambulatory 06/07/2024 2:15 PM EDT OT/PT/Speech Visit [facility] [address] [facility] [place] [address] Ronnie Pettit, PT [address] [facility] [place] [facility] [place] [address] M25.562,G89.29 (ICD-10-CM) - Chronic pain of left knee [facility] Comment on above: M25.562,G89.29 (ICD-10-CM) - Chronic abby n of left knee Start: 06-03-2024 End: 06-03-2024 ambulatory 06/03/2024 1:00 PM EDT OT/PT/Speech Visit [facility] [address] [facility] [place] [address] Ronnie Pettit, PT [address] [place] [address] M25.562,G89.29 (ICD-10-CM) - Chronic pain of left knee [facility] Comment on above: M25.562,G89.29 (ICD-10-CM) - Chronic abby n of left knee Start: 05-31-2024 End: 05-31-2024 ambulatory [facility] Comment on above: M25.562,G89.29 (ICD-10-CM) - Chronic abby n of left knee Start: 05-30-2024 End: 08-29-2024 lamoTRIgine [Mass/volume] in Serum or Plasma LAMOTRIGINE Lab Routine Seizure (HCC) Expected: 05/30/2024, Expires: 08/29/2024 [facility] Work Phone: Comment on above: Expected: 05/30/2024, Expires: Start: 05-30-2024 End: 08-29-2024 Zonisamide [Mass/volume] in Serum or Plasma ZONISAMIDE Lab Routine Seizure (HCC) Expected: 05/30/2024, Expires: 08/29/2024 [facility] Comment on above: Expected: 05/30/2024, Expires: 5 Start: 05-30-2024 End: 05-30-2024 Follow-up encounter 05/30/2024 10:30 AM EDT [facility] Neurology [address] [place], [place] [id number] Sierra Thompson PA-C [address] [facility] [address] [place] [id number] follow up Neurology Comment on above: follow up Start: 05-24-2024 End: 05-24-2024 ambulatory 05/24/2024 2:00 PM EDT OT/PT/Speech Visit [facility] [address] [place], [place] [address] Sonia Collins, ISELA [address] [place] [address] M25.562,G89.29 (ICD-10-CM) - Chronic pain of left knee [facility] Comment on above: M25.562,G89.29 (ICD-10-CM) - Chronic abby n of left knee Start: 05-19-2024 End: 05-19-2024 Patient encounter procedure 05/19/2024 9:15 AM EDT Office Visit Orthopaedics [address] [place] [address] Irene Randolph DO [address] [place] [address] 1st post op Lt medial meniscal repair 04/07/24 Orthopaedics Comment on above: 1st post op Lt medial meniscal repair Start: 2024 Pneumococcal Vaccine: 50+ (1 of 1 - PCV) Pneumococcal Vaccine: 50+ (1 of 1 - PCV) [facility] Start: 2024 Shingrix Vaccine (1 of 2) Shingrix Vaccine (1 of 2) [facility] Start: 2024 End: 2024 ambulatory 2024 10:00 AM EDT OT/PT/Speech Visit [facility] [address] [place], [place] [id number] Ronnie Pettit, PT [address] [place], [place] [id number] Chronic pain of left knee [M25.562, G89.29]; Acute medial meniscus tear of left knee, initial encounter [S83.242A] [facility] Comment on above: Chronic pain of left knee [M25.562, G89. 29]; Acute medial meniscus tear of left knee, initial encounter [S83.242A] Start: 04-28-2024 BP Controlled (<130/80) BP Controlled (<130/80) [facility] Start: 04-21-2024 End: 04-21-2024 Patient encounter procedure 04/21/2024 10:45 AM EDT Office Visit Orthopaedics [address] [place] [address] Irene Randolph DO [address] [address] 1st post op Lt medial meniscal repair 04/07/24 Orthopaedics Comment on above: 1st post op Lt medial meniscal repair Start: 04-10-2024 Covid-19 Vaccine ( season) Covid-19 Vaccine ( season) [facility] Start: 04-10-2024 Covid-19 Vaccine () Covid-19 Vaccine () [facility] Start: 04-10-2024 Influenza vaccination [facility] Start: 04-07-2024 End: 04-07-2024 Admission to same day surgery center 04/07/2024 7:30 AM EDT - 04/07/2024 9:05 AM EDT Surgery Ambulatory Surgery [address] [place] [address] Irene Randolph DO [address] [place] [address] ARTHROSCOPY, KNEE MENISCUS REPAIR MEDIAL OR LATERAL Ambulatory Surgery Comment on above: ARTHROSCOPY, KNEE MENISCUS REPAIR MEDIAL OR LATERAL Start: 04-07-2024 End: 04-07-2024 Arthroscopy knee w/meniscus rpr medial/lateral ARTHROSCOPY, KNEE MENISCUS REPAIR MEDIAL OR LATERAL Tear of medial meniscus of left knee, current, unspecified tear type, initial encounter 04/07/2024 7:30 AM EDT [facility] Start: 04-07-2024 Subsequent hospital visit by physician 04/07/2024 7:30 AM EDT Hospital Encounter Ambulatory Surgery [address] [place] [address] Irene Randolph DO [address] [place] [address] Tear of medial meniscus of left knee, current, unspecified tear type, initial encounter [S83.242A] Ambulatory Surgery Comment on above: Tear of medial meniscus of left knee, cu rrent, unspecified tear type, initial encounter [S83.242A] Start: 04-04-2024 DIABETES SCREEN DIABETES SCREEN [facility] Start: 03-30-2024 End: 03-30-2024 Patient encounter procedure 03/30/2024 11:00 AM EDT Office Visit Orthopaedics [address] [address] Irene Randolph, DO [address] [place], [place] [id number] Left knee pain Orthopaedics Comment on above: Left knee pain Start: 03-17-2024 End: 03-17-2024 Patient encounter procedure 03/17/2024 10:15 AM EDT Office Visit Orthopaedics [address] [place] [address] Irene Randolph, DO [address] [facility] [address] [place] [address] Left knee pain Orthopaedics Comment on above: Left knee pain Start: 02-04-2024 End: 02-04-2024 Patient encounter procedure 02/04/2024 9:00 AM EDT Office Visit Orthopaedic Surgery [facility] [address] [place] [address] Seven Hernandez MD [address] [place] [address] NEW CONSULT FOR LT KNEE IN PAIN Orthopaedic Surgery [facility] Comment on above: NEW CONSULT FOR LT KNEE IN PAIN Start: 12-27-2023 BP CONTROLLED (<130/80) BP CONTROLLED (<130/80) [facility] Start: 10-20-2023 Procedure [facility] Start: 10-15-2023 Patient referral [facility] Work Phone: Start: 09-19-2023 [facility] Start: 05-06-2023 BP CONTROLLED (<130/80) BP CONTROLLED (<130/80) [facility] Start: 04-10-2023 Covid-19 Vaccine () Covid-19 Vaccine () [facility] Start: 04-10-2023 Influenza vaccination [facility] Start: 01-07-2023 BP CONTROLLED (<130/80) BP CONTROLLED (<130/80) [facility] Start: 11-28-2022 End: 01-28-2023 lamoTRIgine [Mass/volume] in Serum or Plasma LAMOTRIGINE Lab Routine Seizure (HCC) Expected: 11/28/2022, Expires: 01/28/2023 [facility] Work Phone: Comment on above: Expected: 11/28/2022, Expires: 3 Start: 11-28-2022 End: 01-28-2023 Zonisamide [Mass/volume] in Serum or Plasma ZONISAMIDE Lab Routine Seizure (HCC) Expected: 11/28/2022, Expires: 01/28/2023 [facility] Work Phone: Comment on above: Expected: 11/28/2022, Expires: 3 Start: 04-10-2022 Influenza vaccination [facility] Start: 04-04-2022 ANNUAL PCP TEAM CHRONIC DISEASE VISIT ANNUAL PCP TEAM CHRONIC DISEASE VISIT [facility] Start: 01-07-2022 End: 01-21-2022 Influenza virus A and B RNA and SARS-CoV-2 (COVID-19) N gene panel - Respiratory specimen by ANU with probe detection COVID WITH FLUA+B, ROUTINE Microbiology Routine Viral illness Exposure to COVID-19 virus Expected: 01/07/2022, Expires: 01/21/2022 [facility] Work Phone: Comment on above: Expected: 01/07/2022, Expires: 2 Start: 01-04-2022 End: 03-06-2022 T4 FREE/FREE THYROX T4 FREE/FREE THYROX Lab Routine Hypothyroidism, acquired Expected: 01/04/2022, Expires: 03/06/2022 [facility] Work Phone: Comment on above: Expected: 01/04/2022, Expires: 2 Start: 01-04-2022 End: 03-06-2022 Thyrotropin [Units/volume] in Serum or Plasma TSH BLD Lab Routine Hypothyroidism, acquired Expected: 01/04/2022, Expires: 03/06/2022 [facility] Work Phone: Comment on above: Expected: 01/04/2022, Expires: 2 Start: 12-15-2021 Plain x-ray of wrist Wrist min 3 Views [facility] Work Phone: Start: 05-26-2021 COVID-19 VACCINE (3 - Booster for Pfizer series) COVID-19 VACCINE (3 - Booster for Pfizer series) [facility] Start: 02-18-2021 COVID-19 VACCINE (3 - Booster for Pfizer series) COVID-19 VACCINE (3 - Booster for Pfizer series) [facility] Start: 02-18-2021 COVID-19 VACCINE (3 - Pfizer series) COVID-19 VACCINE (3 - Pfizer series) [facility] Start: 2019 COLOGUARD (FIT-DNA) COLOGUARD (FIT-DNA) [facility] Start: 2019 Colonoscopy COLONOSCOPY [facility] Start: 2019 COLORECTAL CANCER SCREENING COLORECTAL CANCER SCREENING [facility] Start: [address] COLONOGRAPHY [facility] Start: 2019 FECAL OCCULT BLOOD FECAL OCCULT BLOOD [facility] Start: 2019 Lipid 1996 panel - Serum or Plasma Lipid Screening [facility] Start: 2019 Lipid panel Lipid Screening [facility] Start: 2019 LIPID SCREEN LIPID SCREEN [facility] Start: 2019 Screening for malignant neoplasm of colon [facility] Start: 2019 SIGMOIDOSCOPY SIGMOIDOSCOPY [facility] Start: 03-08-2019 End: 03-08-2019 Appointment Appointment [facility] Work Phone: Start: 03-08-2019 End: 03-08-2019 Mri upper extrem other than jt w/o & w/contras MRI right hand with and without contrast [facility] Work Phone: Start: 03-08-2019 End: 03-08-2019 Radex hand minimum 3 views XR HAND 3+ VWS-RT [facility] Work Phone: Start: 12-25-2018 Mammography [facility] Start: 12-25-2018 Screening for malignant neoplasm of breast Mammogram Screening [facility] Start: 07-10-2017 End: 07-10-2017 Appointment Appointment [facility] Work Phone: Start: 06-11-2017 End: 06-11-2017 Appointment Appointment [facility] Work Phone: Start: 1993 Hepatitis B Vaccine (1 of 3 - 19+ 3-dose series) Hepatitis B Vaccine (1 of 3 - 19+ 3-dose series) [facility] Start: 1993 ONE PNEUMOVAX PRIOR TO AGE 65 ONE PNEUMOVAX PRIOR TO AGE 65 [facility] Start: 1992 Anxiety Screening Anxiety Screening [facility] Start: 1992 BP CONTROLLED (<130/80) BP CONTROLLED (<130/80) [facility] Start: 1992 HEPATITIS C SCREENING HEPATITIS C SCREENING [facility] Start: 1992 Hepatitis C screening Hepatitis C Screening [facility] Start: 1992 SPIROMETRY SPIROMETRY [facility] Start: 1980 PNEUMOCOCCAL (1 - PCV) PNEUMOCOCCAL (1 - PCV) [facility] Start: 1980 Pneumococcal vaccination Pneumococcal Vaccine (1 - PCV) [facility] Start: 1974 HEPATITIS B (1 of 3 - 3-dose series) HEPATITIS B (1 of 3 - 3-dose series) [facility] Start: 1974 Hepatitis B Vaccine (1 of 3 - 3-dose series) Hepatitis B Vaccine (1 of 3 - 3-dose series) [facility] End: 01-05-2026 DBT Breast - bilateral diagnostic for implant MARNIE DIAG W ELIO BILATERAL Radiology Routine Encounter for screening mammogram for breast cancer Abnormal mammogram of right breast 1 Occurrences starting 12/06/2024 until 01/05/2026 [facility] Comment on above: 1 Occurrences starting 12/06/2024 until 01/05/2026 End: 01-05-2026 DBT Breast - bilateral screening MARNIE SCREENING W ELIO Radiology Routine Encounter for screening mammogram for breast cancer 1 Occurrences starting 12/06/2024 until 01/05/2026 [facility] Work Phone: Comment on above: 1 Occurrences starting 12/06/2024 until 01/05/2026 End: 03-15-2026 DBT Breast - bilateral screening MARNIE SCREENING W ELIO Radiology Routine Encounter for gynecological examination (general) (routine) without abnormal findings Encounter for screening mammogram for breast cancer 1 Occurrences starting 02/13/2025 until 03/15/2026 [facility] Work Phone: Comment on above: 1 Occurrences starting 02/13/2025 until 03/15/2026 End: 12-07-2025 EGD DIAGNOSTIC EGD DIAGNOSTIC Endoscopy Routine Coughing up blood Dysphagia, unspecified type 1 Occurrences starting 12/07/2024 until 12/07/2025 [facility] Comment on above: 1 Occurrences starting 12/07/2024 until 12/07/2025 EGD DIAGNOSTIC EGD DIAGNOSTIC Endoscopy Routine Coughing up blood Dysphagia, unspecified type 01/20/2025 8:40 AM EDT [facility] End: 05-31-2025 EPIL EEG LEAD PLACEMENT EPIL EEG LEAD PLACEMENT NEUROLOGY Routine Seizure (HCC) 1 Occurrences starting 05/31/2024 until 05/31/2025 [facility] Comment on above: 1 Occurrences starting 05/31/2024 until 05/31/2025 End: 11-29-2023 EPIL EEG LONG EPIL EEG LONG NEUROLOGY Routine Seizure (HCC) 1 Occurrences starting 11/28/2022 until 11/29/2023 [facility] Work Phone: Comment on above: 1 Occurrences starting 11/28/2022 until 11/29/2023 EPIL VEEG ADMIT TO EMU/PMU EPIL VEEG ADMIT TO EMU/PMU NEUROLOGY Routine Seizure (HCC) Ordered: 05/31/2024 [facility] Comment on above: Ordered: 05/31/2024 End: 12-07-2025 Flexible sigmoidoscopy study COLONOSCOPY DIAGNOSTIC Endoscopy Routine Left lower quadrant abdominal pain BRBPR (bright red blood per rectum) 1 Occurrences starting 12/07/2024 until 12/07/2025 [facility] Work Phone: Comment on above: 1 Occurrences starting 12/07/2024 until 12/07/2025 Flexible sigmoidosco py study COLONOSCOPY DIAGNOSTIC Endoscopy Routine Left lower quadrant abdominal pain BRBPR (bright red blood per rectum) 01/20/2025 8:40 AM EDT [facility] Work Phone: Injection anes agent sphenopalatine ganglion SPHENOPALATINE GANGLION BLOCK Procedures Routine Intractable chronic migraine without aura and with status migrainosus Ordered: 10/26/2024 [facility] Work Phone: Comment on above: Ordered: 10/26/2024 End: 03-19-2026 MR Brain WO contrast MRI BRAIN WO IVCON Radiology Routine Chronic migraine with aura without status migrainosus, not intractable 1 Occurrences starting 02/17/2025 until 03/19/2026 [facility] Work Phone: Comment on above: 1 Occurrences starting 02/17/2025 until 03/19/2026 MR Lower Extremity Joint [facility] End: 04-08-2024 MRI ANKLE WO IVCON RIGHT MRI ANKLE WO IVCON RIGHT Radiology Routine Acute right ankle pain 1 Occurrences starting 03/10/2023 until 04/08/2024 [facility] Work Phone: Comment on above: 1 Occurrences starting 03/10/2023 until 04/08/2024 Patient Education [facility] Work Phone: Patient referral [facility] Work Phone: SARS-CoV-2 (COVID-19 ) RNA [Presence] in Respiratory specimen by ANU with probe detection COVID NAAT, UPPER RESPIRATORY, ROUTINE Microbiology Routine Taste sense altered Chills 02/27/2024 3:31 PM EDT [facility] Work Phone: Tissue Pathology bio psy report [facility] Work Phone: Comment on above: Release Upon Ordering for 1 Occurrences starting 01/20/2025, 1 completed Urine culture [facility] End: 01-05-2026 US Breast - right limited US BREAST LTD RIGHT Radiology Routine Encounter for screening mammogram for breast cancer Abnormal mammogram of right breast 1 Occurrences starting 12/06/2024 until 01/05/2026 [facility] Comment on above: 1 Occurrences starting 12/06/2024 until 01/05/2026 End: 05-21-2025 US Lower extremity vein - left US DVT LOWER LEFT Radiology STAT Pain of left calf 1 Occurrences starting 04/21/2024 until 05/21/2025 [facility] Work Phone: Comment on above: 1 Occurrences starting 04/21/2024 until 05/21/2025 End: 02-09-2025 XR Knee - left 4 Views XR KNEE GENERAL 4V AP BOTH/PA BOTH/LAT/MERC LEFT Radiology Routine Left knee pain, unspecified chronicity 1 Occurrences starting 01/11/2024 until 02/09/2025 [facility] Work Phone: Comment on above: 1 Occurrences starting 01/11/2024 until 02/09/2025 XR Knee - left 4 Views XR KNEE G ENERAL 4V AP BOTH/PA BOTH/LAT/MERC LEFT Radiology Routine Left knee pain, unspecified chronicity 01/12/2025 10:37 AM EDT [facility] Work Phone: End: 02-09-2026 XR Knee - left 4 Views XR KNEE GENERAL 4V AP BOTH/PA BOTH/LAT/MERC LEFT Radiology Routine Left knee pain, unspecified chronicity 1 Occurrences starting 01/11/2025 until 02/09/2026 [facility] Work Phone: Comment on above: 1 Occurrences starting 01/11/2025 until 02/09/2026 XR Pelvis and Hip - left AP and Lateral frog XR HIP GENERAL 3V PELV/AP/LAT LEFT Radiology Routine Left leg pain 02/10/2024 9:53 AM EDT [facility] Work Phone: End: 03-12-2024 XR TIBIA FIBULA 2V AP/LAT RIGHT XR TIBIA FIBULA 2V AP/LAT RIGHT Radiology Routine Sprain of right ankle, unspecified ligament, initial encounter 1 Occurrences starting 02/11/2023 until 03/12/2024 [facility] Work Phone: Comment on above: 1 Occurrences starting 02/11/2023 until 03/12/2024 [facility] Immunizations Immunization Date Immunization Notes Care Provider Fa cili 12-24-2020 COVID-19 vaccine, ag e 12+ yr (PFIZER-BIONTECH - PURPLE TOP) Austin Go Jr., MD Work Phone: [facility] 12-03-2020 COVID-19 vaccine, ag e 12+ yr (PFIZER-BIONTECH - PURPLE TOP) Austin Go Jr., MD Work Phone: [facility] 11-15-2015 tetanus toxoid, redu bin diphtheria toxoid, and acellular pertussis vaccine, adsorbed Austin Go Jr., MD Work Phone: [facility] Work Phone: 07-26-2006 diphtheria and tetan us toxoids, adsorbed for pediatric use Austin Go Jr., MD Work Phone: [facility] Work Phone: Payers Date Payer Category Payer Private Health Insurance [id number] 2023 Unknown [id number] 2023 Self-pay [id number] 2006 Unknown SELF PAY INSURANCE [id number] 2006 Unknown [id number] 2006 Medicaid [employer] [id number] 2006-Present [phone] [address] [place] [address] Medicaid [id number] 2006 Medicaid [id number] 1974 Unknown [id number] 1974 Unknown [id number] Unknown [id number] 462 Unknown [id number] 462 Unknown [id number] 462 Unknown [id number] 462 Unknown [id number] 462 Unknown [id number] 462 Unknown [id number] 462 Unknown [id number] 462 Unknown [id number] 462 Unknown [id number] 462 Social History Date Type Detail Facility Start: 07-12-2019 End: 08-02-2024 Tobacco smoking status MAIS Never smoked tobacco [facility] Start: 11-11-2021 End: 03-06-2025 Alcohol intake Current drinker of alcohol (finding) [facility] Start: 04-02-2021 History SDOH Alcohol Frequency 5 [facility] Start: 04-02-2021 History SDOH Alcohol Std Drinks 1 [facility] Start: 11-29-2010 History SDOH Alcohol Comment rare [facility] Start: 04-02-2021 History SDOH Social Connections Membership 2 [facility] Start: 04-02-2021 History SDOH Social Connections Living 98 [facility] Start: 04-02-2021 History SDOH Physica l Activity DPW 7 [facility] Start: 04-02-2021 History SDOH Physica l Activity MPS 15 [facility] Start: 04-02-2021 Education 12 [facility] Start: 1975 Sex Assigned At Female C [facility] Start: 11-01-2021 End: 12-25-2022 Exposure to SARS-CoV-2 (event) Not sure [facility] Start: 04-11-2021 End: 09-19-2023 Tobacco smoking status NHIS Unknown if ever smoked [facility] Start: 09-28-2020 None [facility] Start: 09-28-2020 With Family [facility] Start: 12-16-2020 Non-smoker [facility] Start: 12-28-2021 End: 01-07-2022 Exposure to SARS-CoV-2 (event) Yes [facility] Work Phone: Start: 04-02-2021 End: 12-25-2022 History of Social function [facility] Start: 04-02-2021 End: 12-25-2022 Social connection and isolation panel [facility] Do you belong to any clubs or organizations such as zoroastrian groups, unions, fraternal or athletic groups, or school groups? No [facility] Are you now , , , , never or living with a partner? Refused [facility] How often to you hav e a drink containing alcohol? 4 or more times a week [facility] How many standard drinks containing alcohol do you have on a typical day? 1 or 2 [facility] How often do you hav e 6 or more drinks on 1 occasion? Never [facility] How hard is it for y ou to pay for the very basics like food, housing, medical care, and heating Not hard at all [facility] Do you feel stress - tense, restless, nervous, or anxious, or unable to sleep at night because your mind is troubled all the time - these days [OSQ] Very much [facility] (I/We) worried wheth er (my/our) food would run out before (I/we) got money to buy more. Never true [facility] Start: 06-17-2021 Gender identity Identifies as female gender (finding) [facility] Start: 08-02-2024 Tobacco use and exposure Smokeless tobacco non-user [facility] NEGATED: Highlighted rowStart: 03-08-2019 End: 03-08-2019 Alcohol use Alcohol use [facility] Work Phone: NEGATED: Highlighted rowStart: 03-08-2019 End: 03-08-2019 Details of drug misuse behavior Details of drug misuse behavior [facility] Work Phone: NEGATED: Highlighted rowStart: 03-08-2019 End: 03-08-2019 Employment detail Employment detail [facility] Work Phone: NEGATED: Highlighted rowStart: 03-08-2019 End: 03-08-2019 How many days of moderate to strenuous exercise, like a brisk walk, did you do in the last 7 days? How many days of moderate to strenuous exercise, like a brisk walk, did you do in the last 7 days? [facility] Work Phone: NEGATED: Highlighted rowStart: 03-08-2019 End: 03-08-2019 Assertion Never smoker [facility] Work Phone: NEGATED: Highlighted row [facility] NEGATED: Highlighted rowStart: NINF History of tobacco use Passive smoker [facility] Medical Equipment Procedure Code Equipment Code Equipment Origin al Text Equipment Identifier Dates [place] Top Juggerkno t 1 Short Suture Soft Rigid Drill Bit 1.45mm [id number] Start: 07-25-2021 Unknown Unknown 05/28/18 Unknown Unknown FDA Start: 05-28-2018 FDA Start: 05-28-2018 FDA Start: 05-28-2018 FDA Start: 05-28-2018 Unknown Unknown 05/28/18 Unknown Unknown FDA Start: 05-28-2018 FDA Start: 05-28-2018 FDA Start: 05-28-2018 FDA Start: 05-28-2018 Device Fast-Fix 360d Reverse Curve Fixation Meniscal Repair System - [id number] Start: 04-07-2024 Device Fast-Fix 360d Reverse Curve Fixation Meniscal Repair System - [id number] Start: 04-07-2024 Device Fast-Fix 360d Reverse Curve Fixation Meniscal Repair System - [id number] Start: 04-07-2024 Functional Status Date Assessment Result Facility 06-22-2024 Are you deaf, or do you have serious difficulty hearing No 06/22/2024 2:04 PM Deja Taylor RN No [facility] 06-22-2024 Are you blind, or do you have serious difficulty seeing, even when wearing glasses No 06/22/2024 2:04 PM Deja Taylor, RN No [facility] 06-22-2024 Do you have serious difficulty walking or climbing stairs No 06/22/2024 2:04 PM Deja Taylor, RN No [facility] 06-22-2024 Do you have difficul ty dressing or bathing No 06/22/2024 2:04 PM Deja Taylor, RN No [facility] 06-22-2024 Because of a physica l, mental, or emotional condition, do you have difficulty doing errands alone such as visiting a physician's office or shopping No 06/22/2024 2:04 PM Deja Taylor RN No [facility] 02-28-2015 Are you deaf, or do you have serious difficulty hearing No 02/28/2015 10:05 AM Rae Greenwood Ma No [facility] 02-28-2015 Are you blind, or do you have serious difficulty seeing, even when wearing glasses No 02/28/2015 10:05 AM Rae Greenwood Ma No [facility] 02-28-2015 Do you have serious difficulty walking or climbing stairs Yes 02/28/2015 10:05 AM EDT Rae Duarte Ma Yes [facility] 02-28-2015 Do you have difficul ty dressing or bathing No 02/28/2015 10:05 AM EDT Rae Duarte Ma No [facility] 02-28-2015 Because of a physica l, mental, or emotional condition, do you have difficulty doing errands alone such as visiting a physician's office or shopping No 02/28/2015 10:05 AM EDT Rae Duarte Ma No [facility] Mental Status Date Assessment Result Facility 06-22-2024 Because of a physica l, mental, or emotional condition, do you have serious difficulty concentrating, remembering, or making decisions No 06/22/2024 2:04 PM Deja Taylor RN No [facility] 03-27-2022 Cognitive function Level Of Cons ciousness Awake;Alert;Appropriate;Fol lows Commands [facility] Work Phone: 02-28-2015 Because of a physica l, mental, or emotional condition, do you have serious difficulty concentrating, remembering, or making decisions Yes 02/28/2015 10:05 AM Rae Greenwood Ma Yes [facility] Clinical Notes 02-01-2013 to 03-06-2025 Note Date & Type Note Facility 03-06-2025 Discharge summary Note Date/Time March 06, 2025 4:39pm [facility] Medical Records Department [address] [place] [address] Emergency Department Summary 03/06/25 MR#: [id number] Acct: [id number] Name: SRI CHACON Rep #:[id number] : 1975 49 From: Hailee Delgado PCP: Jimenez Cabrera, FRASNISCO-C Sta tus:REG ER Location: ED HPI HPI - GI History of Present Illness Chief Complaint: Abd Pain Informant: patient Narrative Narrative: Patient is a 49-year-old female with history of renal stones, depression, hypertension, gallstones, hypothyroidism, IBS, migraines, traumatic brain injury, chronic pain (stomach and bilateral knees as well as migraines) multipleknee surgeries and prior hysterectomy presenting with right sided abdominal pain. States the pain started about 3 days ago. She states the pain is in her right back and radiates around her stomach. She describes it as a sharp and stabbing pain that also feels pulling. She is a feels different than her kidneystone pain. Denies associated rash. Also notes around same time she developed bright red blood per rectum. She states she has pain when she wipes even if shedoes not have a bowel movement. States her bowel movements are okay denies any hard or painful bowel movements. Denies any clots. Has never had this before. She states the pain is constant with no aggravating or alleviating factors. No urinary symptoms such as dysuria, hematuria or frequency. Denies any vaginal bleeding. Has tried [id number] Tylenol and ibuprofen with no relief. Came for further evaluation. Does report 1 transient fever when this first started. No other complaints or concerns reported at this time. Had colonoscopy on 01/20/2025?procedure report reviewed. Performed with Dr. Gamez. She found nonbleeding internal hemorrhoids and one 6 to 10 mm polyp of the rectum which was removed. [facility] Medical History Tear of medial meniscus of left knee Migraines History of epilepsy Home Medications ?Medication ?Instructions ?Recorded ?Last Taken ?Type rimegepant 75 mg disintegrating 75 mg PO Q48H 12/16/20 Unknown History tablet (Nurtec ODT) lamotrigine 200 mg tablet,extended 200 mg PO TID 03/1803/05/25 History release 24 hr trazodone 50 mg tablet 50 mg PO DAILY 04/05/2102/08 History sertraline 50 mg tablet (Zoloft) 50 mg PO DAILY 03/05/25 History celecoxib 200 mg capsule 200 mg PO BID Pain #30 caps 09/14/23 03/05/25 Rx levothyroxine 88 mcg tablet 88 mcg PO DAILY 03/06/25 0 03/05/25 History Allergy/AdvReac Type Severity Reaction Status Date / Time aspirin Allergy Rash Verified 03/06/25 10:39 codeine Allergy Rash Verified 03/06/25 10:39 Fish Containing Products Allergy Rash Verified 03/06/25 10:39 morphine Allergy Rash Verified 03/06/25 10:39 Penicillins Allergy Rash Verified 03/06/25 10:39 shellfish derived Allergy Rash Verified 03/06/25 10:39 diphenhydramine HCl (From AdvReac Other Verified 03/06/25 10:39 Benadryl) promethazine HCl (From AdvReac Other Verified 03/06/25 10:39 Phenergan) Surgical History H/O wrist surgery History of hysterectomy Social History Smoking Status: Never smoker substance use type: does not use ROS ROS ED Constitutional Constitutional ED: Reports fever(s) Cardiovascular Cardiovascular: Denies chest pain Respiratory/Chest Respiratory/Chest: Denies cough Gastrointestinal Gastrointestinal: Reports abdominal pain and other Details: Bright red blood perrectum ; Denies diarrhea, melena, nausea or vomiting Genitourinary Genitourinary ED: Denies dysuria, hematuria or urinary frequency Musculoskeletal Musculoskeletal: Reports other Details: Right flank pain ; Denies arthralgias or myalgias Integumentary Denies rash Neurologic Neurologic: Denies weakness Hematologic/Lymphatic Hematologic/Lymphatic: Denies easy bleeding or easy bruising EXAM Physical Exam Const Vital Signs: 03/06/25 10:39 03/06/25 12:39 03/06/25 14:00 Temperature 98.0 F Temperature Source Oral Pulse Rate 83 88 Respiratory Rate 16 16 Blood Pressure 132/58 H 134/78 H 139/87 H Blood Pressure Mean 82 96 104 Pulse Ox 96 98 100 Oxygen Delivery Method Room Air Room Air Positive well nourished and well developed General Appearance ED: well developed and NAD HEENT Reports moist mucous membranes normocephalic and atraumatic Eyes PERRL Neck supple Resp normal respiratory effort and clear to auscultation bilaterally Cardio regular rate and regular rhythm GI non-tender and non-distended GI Narrative: Abdomen is soft on exam however patient reports pain in her right upper quadrantwith palpation. Negative Sutton sign. Palpation: soft and tender RLQ; Negative for guarding or rigid Back/Spine Back/Spine Narrative: Does not display discomfort when I palpate her CVA but she states it is painful General Back: CVA tenderness right Extremity full ROM Extremity Narrative: Hinged knee brace in place on the left lower General Extremety ED: Negative for edema General Extremity: Negative for edema Neuro moves all extremities Sensorium / Orientation: alert, oriented to person and oriented to place Motor Exam: Negative for general weakness Psych mental status grossly normal and thought process normal Skin no wounds Rashes: no rashes MDM MDM MDM Narrative Medical decision making narrative: Patient presenting for worsening right flank pain. She states it radiates across her upper abdomen and not down which is different than her prior kidney stones. Differential includes muscle skeletal pain, thoracic radiculopathy, renal colic,pyelonephritis, TAIWO, pancreatitis and biliary colic. Patient given IV 0.5 mg Dilaudid, Zofran and fluids in the emergency room however on repeat evaluation she states her pain is quite severe and medication is not helped yet. She is redosed with 1 mg IV Dilaudid and given Toradol. Her CBC and CMP largelynormal. Normal kidney function. Urinalysis does show positive nitrates with greater than 100 red blood cells but no bacteria seen. CT of the abdomen and pelvis shows a 1.2 cm stone of the right renal collecting system as well as moderate dilation of the right ureter with 0.2 cm stone of the distal ureter on the right approximately 2 cm away from the bladder. Likely this is the cause of her consolation of symptoms. Given then exceedinglylarge stone at the bladder pelvis, intractable pain and nitrates concerning for associated infection I do think she benefit from admission. Unfortunately do not have urology coverage here today. Patient receives her other outpatient care through [facility] will contact the transfer line. Patient given IV Rocephin in the emergency room. Case discussed with hospitalist at [facility], Dr. Mahoney. She is exceptedto the medicine service there. Patient agreed with this plan of care. Lab Data Attestation: I reviewed the patient's lab results. Labs: Laboratory Results - last 24 hr 03/06/25 03/06/25 03/06/25 11:18 11:18 11:33 WBC Cancelled 6.8 Corrected WBC Cancelled RBC Cancelled 4.49 Hgb Cancelled 13.2 Hct Cancelled 40.0 MCV Cancelled 89.1 MCH Cancelled 29.4 MCHC Cancelled 33.0 RDW Std Deviation Cancelled 42.0 RDW Coeff of Kg Cancelled 12.9 Plt Count Cancelled 223 MPV Cancelled 9.2 Immature Gran % (Auto) Cancelled 0.400 Neut % (Auto) Cancelled 56.2 Lymph % (Auto) Cancelled 27.9 Beadle % (Auto) Cancelled 8.9 Eos % (Auto) Cancelled 6.2 H Baso % (Auto) Cancelled 0.4 Absolute Neuts (auto) Cancelled 3.8 Absolute Lymphs (auto) Cancelled 1.89 Total Counted Cancelled Neutrophils % (Manual) Cancelled Band Neutrophils % Cancelled Lymphocytes % (Manual) Cancelled Monocytes % (Manual) Cancelled Eosinophils % (Manual) Cancelled Basophils % (Manual) Cancelled Metamyelocytes % Cancelled Myelocytes % Cancelled Promyelocytes % Cancelled Blast Cells % Cancelled Plasma Cell % (Manual) Cancelled Other Cells % Cancelled Nucleated RBC % Cancelled 0 Nucleated RBCs/100 WBC Cancelled Differential Comment Cancelled Diff Path Review Cancelled Hypersegmented Neuts Cancelled Atypical Lymphocytes Cancelled Reactive Lymphocytes Cancelled Smudge Cells Cancelled Toxic Granulation Cancelled Toxic Vacuolation Cancelled Dohle Bodies Cancelled Kizzy Rods Cancelled Platelet Estimate Cancelled Plt Morphology Comment Cancelled RBC Morphology Cancelled Cancelled Polychromasia Cancelled Hypochromasia Cancelled Basophilic Stippling Cancelled Anisocytosis Cancelled Microcytosis Cancelled Macrocytosis Cancelled Spherocytes Cancelled Sickle Cells Cancelled Target Cells Cancelled Tear Drop Cells Cancelled Ovalocytes Cancelled Stomatocytes Cancelled [place] Bodies Cancelled Ingrid Cells Cancelled Bite Cells Cancelled Crenated Cell Cancelled Acanthocytes (Spur) Cancelled Rouleaux Cancelled Schistocytes Cancelled Sodium 140 Potassium 4.4 Chloride 106 Carbon Dioxide 23.5 Anion Gap 10 BUN 13 Creatinine 0.76 Estim Creat Clear Calc 76.11 Est GFR (MDRD) Non-Af 96 BUN/Creatinine Ratio 17.4 Glucose 93 Calcium 9.2 Total Bilirubin 0.49 AST 27 ALT 14 Alkaline Phosphatase 104 Total Protein 7.2 Albumin 3.9 Globulin 3.2 Albumin/Globulin Ratio 1.2 Lipase 24 Urine Color Urine Clarity Urine pH Ur Specific [place] Urine Protein Urine Glucose (UA) Urine Ketones Urine Occult Blood Urine Nitrite Urine Bilirubin Urine Urobilinogen Ur Leukocyte Esterase Urine RBC Urine WBC Ur Squamous Epith Cells Urine Bacteria Urine Mucus 03/06/25 12:09 WBC Corrected WBC RBC Hgb Hct MCV MCH MCHC RDW Std Deviation RDW Coeff of Kg Plt Count MPV Immature Gran % (Auto) Neut % (Auto) Lymph % (Auto) Beadle % (Auto) Eos % (Auto) Baso % (Auto) Absolute Neuts (auto) Absolute Lymphs (auto) Total Counted Neutrophils % (Manual) Band Neutrophils % Lymphocytes % (Manual) Monocytes % (Manual) Eosinophils % (Manual) Basophils % (Manual) Metamyelocytes % Myelocytes % Promyelocytes % Blast Cells % Plasma Cell % (Manual) Other Cells % Nucleated RBC % Nucleated RBCs/100 WBC Differential Comment Diff Path Review Hypersegmented Neuts Atypical Lymphocytes Reactive Lymphocytes Smudge Cells Toxic Granulation Toxic Vacuolation Dohle Bodies Kizzy Rods Platelet Estimate Plt Morphology Comment RBC Morphology Polychromasia Hypochromasia Basophilic Stippling Anisocytosis Microcytosis Macrocytosis Spherocytes Sickle Cells Target Cells Tear Drop Cells Ovalocytes Stomatocytes Martinez-[place] Bodies Ingrid Cells Bite Cells Crenated Cell Acanthocytes (Spur) Rouleaux Schistocytes Sodium Potassium Chloride Carbon Dioxide Anion Gap BUN Creatinine Estim Creat Clear Calc Est GFR (MDRD) Non-Af BUN/Creatinine Ratio Glucose Calcium Total Bilirubin AST ALT Alkaline Phosphatase Total Protein Albumin Globulin Albumin/Globulin Ratio Lipase Urine Color Yellow Urine Clarity Sl. Cloudy Urine pH 6.5 Ur Specific [place] 1.015 Urine Protein 100 H Urine Glucose (UA) Normal Urine Ketones Negative Urine Occult Blood 250 H Urine Nitrite Positive H Urine Bilirubin Negative Urine Urobilinogen Normal Ur Leukocyte Esterase 25 H Urine RBC > 100 SEEN Urine WBC 0 SEEN Ur Squamous Epith Cells 0-5 SEEN Urine Bacteria 0 SEEN Urine Mucus 0 SEEN Radiography Diagnostic Testing: Clinical Impression(s) from Imaging Studies Abdomen/Pelvis CT 03/06/25 11:08 IMPRESSION: There is a 1.2 cm stone in the right renal collecting system. There is moderate dilation of the right ureter with a 0.2 cm stone in the distal right ureter, 2 cm from the bladder base, image 99/125. Critical results were discussed with Dr. Weiss by Dr. Matos at the time ofdictation. Reading Location: [facility] Management Discussion w/another healthcare provider: Hospitalist Discharge Plan Triage Chief Complaint: Abd Pain ED Provider: Hailee Weiss Dx/Rx/DC Orders Clinical Impression: Right flank pain, UTI (urinary tract infection), Renal colic on right side, Ureterolithiasis, Calculus of renal pelvis Prescriptions: No Action lamotrigine 200 mg tablet extended release 24hr 200 mg PO TID Patient Comments: TAKE 2 TABLETS BY MOUTH TWICE DAILY trazodone 50 mg tablet 50 mg PO DAILY celecoxib 200 mg capsule 200 mg PO BID Qty: 30 0RF Rx Instructions: Do not take in conjunction with other NSAIDs. Tylenol is okay. Nurtec ODT 75 mg Tablet,Disintegrating 75 mg PO Q48H sertraline [Zoloft] 50 mg Tablet 50 mg PO DAILY levothyroxine 88 mcg tablet 88 mcg PO DAILY Primary Care Provider: Jimenez Cabrera NP Referrals: Jimenez Cabrera ADDICTION TREATMENT COUNSELOR, ADDICTION TREATMENT COUNSELOR-C [Primary Care Provider] - Print Language: Singaporean Disposition Disposition: Acute Care Hospital Discharge Location: [facility] What to do if you have Problems For any increased pain, shortness of breath, bleeding, nausea or vomiting, chestpain, or any unexpected problems, contact your Primary Care Provider. Call [facility] ([phone]) or report to the closest Emergency Room. Call 911 if necessary. 03/06/25 1611 <Electronically signed by Hailee Weiss DO> Cosigner Signature (if applicable): CC: ADDICTION TREATMENT COUNSELOR-Emeli Cabrera ~ Signed ADDENDUM by Dr. Hailee Weiss DO on 03/06/25 at 1639 Chaperoned rectal exam? Patient has some nonthrombosed nonbleeding external hemorrhoids. There is mild tenderness on rectal exam. No obvious fissures. On internal rectal exam there is dark red blood present. 03/06/25 1638<Electronically signed by Hailee Weiss DO> Cosigner Signature (if applicable): cc: ADDICTION TREATMENT COUNSELOR-Emeli Cabrera ~* Signed [facility] Work Phone: [phone] Discharge summary [facility] Medical Records Department [address] [place] [address] Emergency Department Summary 03/06/25 MR#: [id number] Acct: [id number] Name: SRI CHACON Rep #:[id number] : 1975 49 From: Hailee Delgado PCP: Jimenez Cabrera, ANN Parrish tus:REG ER Location: ED HPI HPI - GI History of Present Illness Chief Complaint: Abd Pain Informant: patient Narrative Narrative: Patient is a 49-year-old female with history of renal stones, depression, hypertension, gallstones,hypothyroidism, IBS, migraines, traumatic brain injury, chronic pain (stomach and bilateral knees as well as migraines) multipleknee surgeries and prior hysterectomy presenting with right sided abdominal pain. States the pain started about 3 days ago. She states the pain is in her right back and radiates around her stomach. She describes it as a sharp and stabbing pain that also feels pulling. She is a feels different than her kidneystone pain. Denies associated rash. Also notes around same time she developed bright red blood per rectum. She states she has pain when she wipes even if shedoes not have a bowel movement. States her bowel movements are okay denies any hard or painful bowel movements. Denies any clots. Has never had this before. She states the pain is constant with no aggravating or alleviating factors. No urinary symptoms such as dysuria, hematuria or frequency. Denies any vaginal bleeding. Has tried [id number] Tylenol and ibuprofen with no relief. Came for further evaluation. Does report 1 transient fever when this first started. No other complaints or concerns reported at this time. Had colonoscopy on 01/20/2025?procedure report reviewed. Performed with Dr. Gamez. She found nonbleeding internal hemorrhoids and one 6 to 10 mm polyp of the rectum which was removed. [facility] Medical History Tear of medial meniscus of left knee Migraines History of epilepsy Home Medications ?Medication ?Instructions ?Recorded ?Last Taken ?Type rimegepant 75 mg disintegrating 75 mg PO Q48H 12/16/20 Unknown History tablet (Nurtec ODT) lamotrigine 200 mg tablet,extended 200 mg PO TID 03/1803/05/25 History release 24 hr trazodone 50 mg tablet 50 mg PO DAILY 04/05/2102/08 History sertraline 50 mg tablet (Zoloft) 50 mg PO DAILY 03/05/25 History celecoxib 200 mg capsule 200 mg PO BID Pain #30 caps 09/14/23 03/05/25 Rx levothyroxine 88 mcg tablet 88 mcg PO DAILY 03/06/25 0 03/05/25 History Allergy/AdvReac Type Severity Reaction Status Date / Time aspirin Allergy Rash Verified 03/06/25 10:39 codeine Allergy Rash Verified 03/06/25 10:39 Fish Containing Products Allergy Rash Verified 03/06/25 10:39 morphine Allergy Rash Verified 03/06/25 10:39 Penicillins Allergy Rash Verified 03/06/25 10:39 shellfish derived Allergy Rash Verified 03/06/25 10:39 diphenhydramine HCl (From AdvReac Other Verified 03/06/25 10:39 Benadryl) promethazine HCl (From AdvReac Other Verified 03/06/25 10:39 Phenergan) Surgical History H/O wrist surgery History of hysterectomy Social History Smoking Status: Never smoker substance use type: does not use ROS ROS ED Constitutional Constitutional ED: Reports fever(s) Cardiovascular Cardiovascular: Denies chest pain Respiratory/Chest Respiratory/Chest: Denies cough Gastrointestinal Gastrointestinal: Reports abdominal pain and other Details: Bright red blood perrectum ; Denies diarrhea, melena, nausea or vomiting Genitourinary Genitourinary ED: Denies dysuria, hematuria or urinary frequency Musculoskeletal Musculoskeletal: Reports other Details: Right flank pain ; Denies arthralgias or myalgias Integumentary Denies rash Neurologic Neurologic: Denies weakness Hematologic/Lymphatic Hematologic/Lymphatic: Denies easy bleeding or easy bruising EXAM Physical Exam Const Vital Signs: 03/06/25 10:39 03/06/25 12:39 03/06/25 14:00 Temperature 98.0 F Temperature Source Oral Pulse Rate 83 88 Respiratory Rate 16 16 Blood Pressure 132/58 H 134/78 H 139/87 H Blood Pressure Mean 82 96 104 Pulse Ox 96 98 100 Oxygen Delivery Method Room Air Room Air Positive well nourished and well developed General Appearance ED: well developed and NAD HEENT Reports moist mucous membranes normocephalic and atraumatic Eyes PERRL Neck supple Resp normal respiratory effort and clear to auscultation bilaterally Cardio regular rate and regular rhythm GI non-tender and non-distended GI Narrative: Abdomen is soft on exam however patient reports pain in her right upper quadrantwith palpation. Negative Sutton sign. Palpation: soft and tender RLQ; Negative for guarding or rigid Back/Spine Back/Spine Narrative: Does not display discomfort when I palpate her CVA but she states it is painful General Back: CVA tenderness right Extremity full ROM Extremity Narrative: Hinged knee brace in place on the left lower General Extremety ED: Negative for edema General Extremity: Negative for edema Neuro moves all extremities Sensorium / Orientation: alert, oriented to person and oriented to place Motor Exam: Negative for general weakness Psych mental status grossly normal and thought process normal Skin no wounds Rashes: no rashes MDM MDM MDM Narrative Medical decision making narrative: Patient presenting for worsening right flank pain. She states it radiates across her upper abdomen and not down which is different than her prior kidney stones. Differential includes muscle skeletal pain, thoracic radiculopathy, renal colic,pyelonephritis, TAIWO, pancreatitis and biliary colic. Patient given IV 0.5 mg Dilaudid, Zofran and fluids in the emergency room however on repeat evaluation she states her pain is quite severe and medication is not helped yet. She is redosed with 1 mg IV Dilaudid and given Toradol. Her CBC and CMP largelynormal. Normal kidney function. Urinalysis does show positive nitrates with greater than 100 red blood cells but no bacteria seen. CT of the abdomen and pelvis shows a 1.2 cm stone of the right renal collecting system aswell as moderate dilation of the right ureter with 0.2 cm stone of the distal ureter on the right approximately 2 cm away from the bladder. Likely this is the cause of her consolation of symptoms. Given then exceedinglylarge stone at the bladder pelvis, intractable pain and nitrates concerning for associated infection I do think she benefit from admission. Unfortunately do not have urology coverage here today. Patient receives her other outpatient care through [facility] will contact the transfer line. Patient given IV Rocephin in the emergency room. Case discussed with hospitalist at [facility], Dr. Mahoney. She is exceptedto the medicine service there. Patient agreed with this plan of care. Lab Data Attestation: I reviewed the patient's lab results. Labs: Laboratory Results - last 24 hr 03/06/25 03/06/25 03/06/25 11:18 11:18 11:33 WBC Cancelled 6.8 Corrected WBC Cancelled RBC Cancelled 4.49 Hgb Cancelled 13.2 Hct Cancelled 40.0 MCV Cancelled 89.1 MCH Cancelled 29.4 MCHC Cancelled 33.0 RDW Std Deviation Cancelled 42.0 RDW Coeff of Kg Cancelled 12.9 Plt Count Cancelled 223 MPV Cancelled 9.2 Immature Gran % (Auto) Cancelled 0.400 Neut % (Auto) Cancelled 56.2 Lymph % (Auto) Cancelled 27.9 Beadle % (Auto) Cancelled 8.9 Eos % (Auto) Cancelled 6.2 H Baso % (Auto) Cancelled 0.4 Absolute Neuts (auto) Cancelled 3.8 Absolute Lymphs (auto) Cancelled 1.89 Total Counted Cancelled Neutrophils % (Manual) Cancelled Band Neutrophils % Cancelled Lymphocytes % (Manual) Cancelled Monocytes % (Manual) Cancelled Eosinophils % (Manual) Cancelled Basophils % (Manual) Cancelled Metamyelocytes % Cancelled Myelocytes % Cancelled Promyelocytes % Cancelled Blast Cells % Cancelled Plasma Cell % (Manual) Cancelled Other Cells % Cancelled Nucleated RBC % Cancelled 0 Nucleated RBCs/100 WBC Cancelled Differential Comment Cancelled Diff Path Review Cancelled Hypersegmented Neuts Cancelled Atypical Lymphocytes Cancelled Reactive Lymphocytes Cancelled Smudge Cells Cancelled Toxic Granulation Cancelled Toxic Vacuolation Cancelled Dohle Bodies Cancelled Kizzy Rods Cancelled Platelet Estimate Cancelled Plt Morphology Comment Cancelled RBC Morphology Cancelled Cancelled Polychromasia Cancelled Hypochromasia Cancelled Basophilic Stippling Cancelled Anisocytosis Cancelled Microcytosis Cancelled Macrocytosis Cancelled Spherocytes Cancelled Sickle Cells Cancelled Target Cells Cancelled Tear Drop Cells Cancelled Ovalocytes Cancelled Stomatocytes Cancelled [place] Bodies Cancelled Ingrid Cells Cancelled Bite Cells Cancelled Crenated Cell Cancelled Acanthocytes (Spur) Cancelled Rouleaux Cancelled Schistocytes Cancelled Sodium 140 Potassium 4.4 Chloride 106 Carbon Dioxide 23.5 Anion Gap 10 BUN 13 Creatinine 0.76 Estim Creat Clear Calc 76.11 Est GFR (MDRD) Non-Af 96 BUN/Creatinine Ratio 17.4 Glucose 93 Calcium 9.2 Total Bilirubin 0.49 AST 27 ALT 14 Alkaline Phosphatase 104 Total Protein 7.2 Albumin 3.9 Globulin 3.2 Albumin/Globulin Ratio 1.2 Lipase 24 Urine Color Urine Clarity Urine pH Ur Specific [place] Urine Protein Urine Glucose (UA) Urine Ketones Urine Occult Blood Urine Nitrite Urine Bilirubin Urine Urobilinogen Ur Leukocyte Esterase Urine RBC Urine WBC Ur Squamous Epith Cells Urine Bacteria Urine Mucus 03/06/25 12:09 WBC Corrected WBC RBC Hgb Hct MCV MCH MCHC RDW Std Deviation RDW Coeff of Kg Plt Count MPV Immature Gran % (Auto) Neut % (Auto) Lymph % (Auto) Beadle % (Auto) Eos % (Auto) Baso % (Auto) Absolute Neuts (auto) Absolute Lymphs (auto) Total Counted Neutrophils % (Manual) Band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 andconsents to proceed with the evaluation remotely. Recording using [employer] software for draft documentation of the visit was discussed with the patient/authorized videotape sales representative; all questions welcomed and answered. Patient/authorized videotape sales representative agreed to proceed SUBJECTIVE: Sri Chacon presents for a follow-up appointment for chronic pain. Since the last visit, Sri Chacon states the pain has been stable. Patient was last seen on 01/10/25 by this provider Was started on lyrica at last visit Taking prozac, lamictal, remeron, for mental health Sri Chacon is a 49-year-old female with a history of chronic migraines and knee pain, presenting for follow-up. Sri reports no change in her condition since the last visit in early January. She has been taking pregabalin but reports no improvement in symptoms. She does not endorse any side effects from the medication. She describes her knee pain as really bad and constant, with a severity rating of over 10 out of 10 in the past week. She does not identify any specific triggers and states that nothing, including heat, alleviates the pain. She continues to experience chronic migraines, which have been present 02/03 since age 15 following trauma. She is currently taking Prozac, Lamictal, and Remeron for mental health management and does not report any new health issues or concerns. She mentions that she eats once a day, if at all, and expresses a lack of interest in eating. She describes persistent abdominal pain, stating, my tummy, all it does is hurt, hurt, hurt, hurt, if I eat something, it hurts, if I don't eat nothing, it hurts. She describes the pain as feeling like somebody's twisting it. Sri has not completed the previously ordered toxicology screen and has not scheduled an appointment with pain psychology, citing difficulties in getting a response. She is currently raising her [id number]-biv granddaughter, who has been ill with strep throat and other issues. PDMP website checked and validated. All prescriptions have been APPROPRIATELY filled. No suspiciousactivity was identified. 02/20/2025 by Sania Price PA-C Current Outpatient Medications Medication Sig Dispense Refill pregabalin (LYRICA) 25 mg capsule Take 1 capsule by mouth three times a day for 30 days. 90 capsule0 levothyroxine (SYNTHROID) 88 mcg tablet Take 1 tablet by mouth once daily. 90 tablet 1 ergocalciferol 50,000 unit capsule (VITAMIN D2, DRISDOL) Take 1 capsule by mouth one time a week. 12 capsule 0 Mirtazapine (REMERON) 7.5 mg tablet Take 1 tablet by mouth daily at bedtime. [address] (PROTONIX) 20 mg tablet Take 1 tablet by mouth daily before breakfast. 90 tablet 0 Syringe with Needle, Disp, 3 mL 23 x 1 1 Each as directed. 4 Each 5 lamoTRIgine (LAMICTAL) 100 mg tablet Take 1 tablet by mouth two times a day. To start on or after 08/10/2024, after completing titration schedule. 180 tablet 1 atogepant (QULIPTA) 60 mg tablet Take 1 tablet (60 mg) by mouth once daily. 30 tablet 5 FLUoxetine (PROZAC) 40 mg capsule Take 1 capsule by mouth once daily. 90 capsule 1 No current facility-administered medications for this visit. REVIEW OF SYSTEMS: REVIEW OF SYSTEMS PAIN ASSESSMENT: CURRENTLY HAVING PAIN; see HPI Past Medical History: PAST MEDICAL HISTORY Diagnosis Date Calculus of kidney 07/03/2006 Calculus of ureter 03/16/2008 Convulsions (HCC) 02/01/2013 Depression Essential hypertension 01/01/2018 Gallstone 12/25/2017 Hydronephrosis 03/16/2008 Hypothyroidism IBS (irritable bowel syndrome) Lactose intolerance in adult 01/21/2018 Migraine 02/01/2013 Nonrheumatic mitral (valve) prolapse 06/15/2017 Seizure disorder (HCC) last 04/2021 Traumatic brain injury (HCC) Unspecified asthma(493.90) Unspecified ectopic without intrauterine (HCC) Ectopic Past Surgical History: PAST SURGICAL HISTORY Procedure Laterality Date ARTHROSCOPY KNEE DIAGNOSTIC W/WO SYNOVIAL BX SPX Left 06/30/2024 Dr. Mccracken ARTHROSCOPY KNEE DIAGNOSTIC W/WO SYNOVIAL BX SPX Left 10/04/2024 ARTHROSCOPY KNEE W/MENISCUS RPR MEDIAL/LATERAL Left 04/07/2024 Left knee arthroscopy medial meniscus root/posterior horn repair COLONOSCOPY SCREENING 01/20/2025 CYSTOSCOPY,URETEROSCOPY,LITHOTRIPSY DILATION & CURETTAGE DX&/THER NONOBSTETRIC 1995 Dilation & curettage EGD W/O BRSH SPEC VARICIES INJ 01/20/2025 PAST SURGICAL HISTORY OF 1999 C section PAST SURGICAL HISTORY OF 2009 heart cath PAST SURGICAL HISTORY OF 1991 right knee surgery with muscle and scar tissue removal post fx PAST SURGICAL HISTORY OF Right hand marley Dr. Nguyen PAST SURGICAL HISTORY OF Right 2020 right thumb CMC arthroplasty TOTAL ABDOMINAL HYSTERECT W/WO RMVL TUBE OVARY 01/2005 Hysterectomy, ALLY Family History: FAMILY HISTORY Problem Relation Age of Onset Arthritis Mother Cataract Mother other (pacemaker, defibrillator) Mother other (mitral valve) Father Cataract Maternal Grandmother Difficulty with anesthesia No Family History Thyroid No Family History Social History: Social History Tobacco Use Smoking status: Never Passive exposure: Never Smokeless tobacco: Never Vaping Use Vaping status: current everyday user Substances: Flavoring Substance Use Topics Alcohol use: Yes Comment: rare Drug use: Never OBJECTIVE: LMP 02/07/2000 PHYSICAL EXAMINATION: GENERAL APPEARANCE: Well appearing, well-hydrated, well nourished and alert ASSESSMENT: Chronic pain syndrome (primary encounter diagnosis) Chronic pain of left knee Medication management Major depressive disorder, single episode, severe without psychotic features (hcc) Generalized anxiety disorder PLAN: 1. Chronic pain syndrome (G89.4) 2. Chronic pain of left knee (M25.562) - Pain remains severe, rated over 10/10, with no specific triggers identified. - Current management with pregabalin 25 mg TID is ineffective; no reported side effects. - Increased pregabalin dosage to 50 mg TID. - Advised patient to send a message in one month to reassess efficacy and consider further dosage increase. - Discussed importance of completing urine toxicology screen; patient to visit a [facility] lab to complete this. - Encouraged patient to follow up with pain psychology; provided contact number [phone] for scheduling. - follow up in 4-6 weeks for medication management 3. Medication management (Z79.899) - Current medications include pregabalin, Prozac, Lamictal, and Remeron. - No additional medications for pain or mental health reported. - Sent updated pregabalin prescription to pharmacy. 4. Major depressive disorder, single episode, severe without psychotic features (HCC) (F32.2) 5. Generalized anxiety disorder (F41.1) - Continues on Prozac, Lamictal, and Remeron. - Discussed potential benefits of dietary modifications and probiotics on mood and pain management. - Advised patient to eat small, frequent meals and avoid inflammatory foods. Medical Decision Making: Problems: Low: Stable chronic illness Data: Unique source(s) for external note(s) reviewed: 1 Unique test(s) ordered: 1 Risk: Moderate: Drug management Medical Decision Making Level: 3 - Low Sania Price PA-C Important Patient Information: 1. To schedule Pain Recovery appointments or post-injection office visits, please call: [phone] 2. The nursing staff and medical assistants are a part of your pain recovery team and will be handling your phone calls and inquiries. 3. Your study results and treatment plan will be discussed during a follow-up appointment. If you do not have a follow-up appointment and wish to discuss any issues directly with me, please call: [phone] to set-up an appointment. 4. MyChart is best used for refill requests or yes or no questions. Anything more complicated will likely require a follow-up appointment that you can schedule by [phone]. 5. If you are scheduled for a ketamine infusion, you will be contacted regarding specific scheduling instructions in the future by our department. There is no need to contact our department regardingthe scheduling process or your estimated wait; you will be contacted once there is an opening. documented in this encounterOhio[facility] Note[facility] History of Present illness Narrative* Irene Randolph, - 02/17/2025 10:02 AM EDT Images from the original note were not included. Follow Up Visit Chief Complaint Sri Chacon is a 49-year-old female with a history of chronic migraines, presenting for follow-up of left knee pain and limited range of motion. Patient presents with: Left Knee - Post Op, Knee Pain History of Present Illness PAIN EVALUATION 02/17/2025 1001 Pain Level: 10 Pain Location: Knee-Left Description: Stabbing;Sharp Duration Amount of Time: -- ongoing Frequency: Continuous Intervention/Comfort measure: Medication;Relaxation;Reposition;Cold;Heat HPI: Sri Chacon is a 49 year old female for a follow up visit left knee arthroscopy with medial meniscus repair on 04/07/2024 with subsequent JUAN and extensive synovectomy on 06/30/2024. She underwent a repeat JUAN on 10/04/2024. Pain history is noted as above. She states she is still taking Lyrica as prescribed without pain relief. She does use ice and heat as needed as well. Is there any overall improvement in your condition? No Any new injury, since being seen last: No Left Knee Pain and Limited ROM: - Underwent left knee arthroscopy in March, followed by manipulation. - Persistent inability to fully extend the knee despite following post-operative instructions. - Reports popping sensation in the knee, causing significant pain and swelling. - Describes sudden jerking movements due to the popping, with associated pain. - Denies improvement with physical therapy; discontinued due to lack of progress. - Currently using a brace prescribed in January, but reports it is ineffective. Chronic Migraines: - Experiences chronic migraines all day and all night. - Denies any history of seizures. REVIEW OF SYMPTOMS: Patient did not have, and does not currently have, any weight loss, malaise, fever, chills, headache, chest pain, chest pressure, palpitations, cough, shortness of breath, orthopnea, paroxsymal nocturnal dyspnea, nausea, vomiting, diarrhea, constipation, melena, hematochezia, urinary difficulties, prolonged bleeding, easily bruising, heat or cold intolerance, new onset joint pain or swelling, newonset extremity weakness or numbness, new onset auditory or visual disturbances, lightheadedness, dizziness, partial loss of consciousness or full loss of consciousness. Head: (+) chronic migraines Musculoskeletal: (+) left knee pain, (+) left knee swelling, (+) left knee popping, (+) left knee limited range of motion, (+) pain to light touch left knee Neurological: (-) seizures Current Outpatient Medications Medication Sig levothyroxine (SYNTHROID) 88 mcg tablet Take 1 tablet by mouth once daily. ergocalciferol 50,000 unit capsule (VITAMIN D2, DRISDOL) Take 1 capsule by mouth one time a week. Mirtazapine (REMERON) 7.5 mg tablet Take 1 tablet by mouth daily at bedtime. pantoprazole DR (PROTONIX) 20 mg tablet Take 1 tablet by mouth daily before breakfast. Syringe with Needle, Disp, 3 mL 23 x 1 1 Each as directed. lamoTRIgine (LAMICTAL) 100 mg tablet Take 1 tablet by mouth two times a day. To start on or after 08/10/2024, after completing titration schedule. atogepant (QULIPTA) 60 mg tablet Take 1 tablet (60 mg) by mouth once daily. FLUoxetine (PROZAC) 40 mg capsule Take 1 capsule by mouth once daily. pregabalin (LYRICA) 50 mg capsule Take 1 capsule by mouth three times a day for 90 days. No current facility-administered medications for this visit. Physical Exam Vitals: LMP 02/07/2000 Psych: Pleasant, good affect and mood General Appearance: Well appearing, alert, in no acute distress, well-hydrated, well nourished.. Skin: Skin color, texture, turgor normal, no suspicious rashes or lesions. Peripheral Pulses: Normal. Neurologic: Gait normal. Reflexes normal and symmetric. Sensation grossly intact.. Lymph Nodes: No cervical lymphadenopathy, No supraclavicular lymphadenopathy, No axillary lymphadenopathy., and No inguinal lymphadenopathy.. Respiratory: No recent pulmonary infection, hemoptysis, chronic cough, or shortness of breath at rest Rheumatologic: Joint deformities: left leg pain, overall pain in left leg, headaches Right Knee Exam Right knee exam is normal. Muscle Strength The patient has normal right knee strength. Tenderness The patient is experiencing no tenderness. Range of Motion Extension: normal Flexion: normal Tests Kindra: Anterior - negative Posterior - negative Drawer: Anterior - negative Posterior - negative Other Erythema: absent Sensation: normal Pulse: present Swelling: none Left Knee Exam Tenderness The patient is experiencing tenderness in the medial joint line and lateral joint line. Range of Motion Extension: abnormal Flexion: abnormal Other Erythema: absent Scars: present Sensation: normal Pulse: present Swelling: none Comments: Neg homans bilaterally Assessment and Plan Radiographs: No imaging to review. Tests (June) Left Knee Arthroscopy: Minimal scar tissue identified; no additional abnormalities. (March) Left Knee Arthroscopy: No significant structural abnormalities identified. Impression: 1. Chronic migraine with aura without status migrainosus, not intractable (G43.E09) 2. Chronic migraine without aura without status migrainosus, not intractable (G43.709) - Chronic migraines persistent day and night. - Referred to pain recovery clinic for comprehensive management. 3. Complex regional pain syndrome type 1 of left lower extremity (G90.522) 4. Swelling of left lower extremity (M79.89) - Persistent pain and swelling in the left knee despite previous arthroscopy and manipulation. - Pain to light touch and intermittent popping sensation noted. - Referred to chronic regional pain syndrome clinic for further evaluation and management. - Discontinue current brace; provided a left simple hinge brace for support. 5. History of traumatic brain injury (Z87.820) - Ordered MRI of the brain to rule out neurological causes for knee symptoms. - Follow-up virtual visit scheduled post-MRI to discuss findings and next steps. Today, in detail, through a thorough evaluation, we discussed possible etiologies of pain and our plans for further diagnostic and therapeutic interventions. We discussed strategies for decreasing pain and improving strength, stability and motion. Patient's questions were answered in detailed. Patient verbalizes understanding and agrees with the treatment plan as discussed. Recording using ambient InstantLuxe software for draft documentation of the visit was discussed with the patient/authorized videotape sales representative; all questions welcomed and answered. Patient/authorized videotape sales representative agreed to proceed Irene Randolph D.O. M.P.H. documented in this encounterOhio[facility]07-07-2025 NoteMer[facility]07-07-2025 History of Present illness Narrative* Darian Ames MD - 02/13/2025 10:57 AM EDT Sri is a 49 year old who presents for an annual gynecologic exam without complaints. Hx ofTAH/BSO OB History Gravida2 Para2 Term1 Preterm1 AB1 Living1 SAB0 IAB0 Ectopic1 Multiple2 Live Births1 [employer] History LMP: 02/07/2000, Hysterectomy Age at Menarche: 7 Age at First : Age at Menopause: [employer] History Comments: Sexual Activity: Yes; No partner data on record Contraception: Surgical PAST MEDICAL HISTORY Diagnosis Date Calculus of kidney 07/03/2006 Calculus of ureter 03/16/2008 Convulsions (HCC) 02/01/2013 Depression Essential hypertension 01/01/2018 Gallstone 12/25/2017 Hydronephrosis 03/16/2008 Hypothyroidism IBS (irritable bowel syndrome) Lactose intolerance in adult 01/21/2018 Migraine 02/01/2013 Nonrheumatic mitral (valve) prolapse 06/15/2017 Seizure disorder (HCC) last 04/2021 Traumatic brain injury (HCC) Unspecified asthma(493.90) Unspecified ectopic without intrauterine (HCC) Ectopic PAST SURGICAL HISTORY Procedure Laterality Date ARTHROSCOPY KNEE DIAGNOSTIC W/WO SYNOVIAL BX SPX Left 06/30/2024 Dr. Mccracken ARTHROSCOPY KNEE DIAGNOSTIC W/WO SYNOVIAL BX SPX Left 10/04/2024 ARTHROSCOPY KNEE W/MENISCUS RPR MEDIAL/LATERAL Left 04/07/2024 Left knee arthroscopy medial meniscus root/posterior horn repair COLONOSCOPY SCREENING 01/20/2025 CYSTOSCOPY,URETEROSCOPY,LITHOTRIPSY DILATION & CURETTAGE DX&/THER NONOBSTETRIC 1996 Dilation & curettage EGD W/O BRSH SPEC VARICIES INJ 01/20/2025 PAST SURGICAL HISTORY OF 1999 C section [...] other (mitral valve) Father Cataract Maternal Grandmother Difficulty with anesthesia No Family History Thyroid No Family History SOCIAL HISTORY Social History Tobacco Use Smoking status: Never Passive exposure: Never Smokeless tobacco: Never Vaping Use Vaping status: current everyday user Substances: Flavoring Substance Use Topics Alcohol use: Yes Comment: rare Drug use: Never REVIEW OF SYSTEMS Abdomen: No abdominal pain, nausea, vomiting, diarrhea, or constipation. No bloating, early satiety, indigestion, or increased flatulence. Bladder: No dysuria, gross hematuria, urinary frequency, urinary urgency, or incontinence. Breast: No breast lumps, nipple d/c, overlying skin changes, redness or skin retraction. Allergies and current medication updated:Yes SENSITIVE EXAM: The sensitive examination was discussed with the Patient or Patient's Authorized Single Spindle Screw Machine Operator. As applicable, any other physician, advance practice provider, medical student, or other health professional student that will be observing or involved in the sensitive examination for educational or training purposes was discussed with the Patient or Authorized Single Spindle Screw Machine Operator. The Patient or Authorized Single Spindle Screw Machine Operator has agreed to proceed with the sensitive examination. (Sensitive examination includes inspection and/or palpation of the breasts, pelvis, prostate and anorectal regions). EXAM: BP 126/84 Wt 189 lb (85.7kg) LMP 02/07/2000 GENERAL: pleasant, female in no apparent distress HEENT: Normocephalic, atraumatic, mucus membranes moist, and no lesions NECK: Supple, full range of motion, no adenopathy, and thyroid normal DERMATOLOGY: Normal, without lesions, non-icteric, and non-hirsute BREAST: soft, non-tender, symmetric, no dominant mass, normal nipple-areolar complex, no lymphadenopathy, and no nipple discharge CHEST: Normal inspiratory effort ABDOMEN: soft, non-tender, and no masses PELVIC: external genitalia normal, normal Bartholin's glands, urethra, [place] Mills's glands, no vulvar lesions, good vaginal support, physiologic discharge present, normal appearing perineal body and perianal region BIMANUAL: no adnexal masses, non-tender, and uterus surgically absent ASSESSMENT/PLAN: 1) Health maintenance: Mammogram ordered. 4) Follow up one year or sooner as needed Darian Ames MD documented in this encounterOhiohealth [facility]06-23-2025 NoteMer[facility]06-13-[facility] Nurse Note* Gibran Matthew RN - 01/20/2025 9:10 AM EDT Pt and brother Ajit advised that per Dr. Jennifer GOLDSMITH, pt is to take lamictal dose when she gets home, and she is to rest for today. [facility]06-13-2025 Nurse Note* Gibran Matthew RN - 01/20/2025 9:10 AM EDT Pt and brother Ajit advised that per Dr. Jennifer GOLDSMITH, pt is to take lamictal dose when she gets home, and she is to rest for today. documented in this encounterOhiohealth Dublin [facility]06-13-2025 Attending History and physical note* Candis Gamez MD - 01/20/2025 8:00 AM EDT UPDATED HISTORY AND PHYSICAL EXAMINATION SERVICE DATE: 01/20/2025 SERVICE TIME: 7:55 Participation of a fellow, resident, medical student, or advanced practice provider student in performing the sensitive examination was discussed with the patient or authorized videotape sales representative. The patient or authorized videotape sales representative has agreed to proceed with the sensitive examination. PHYSICAL EXAM MUST BE COMPLETED ON ADMISSION The History and Physical (completed in the past 30 days) has been reviewed and the patient has beenexamined. The contents accurately reflect the patient's condition with the following additions or revisions since the H&P was completed. Examination indicates no changes. This H&P can be found in the Electronic Medical Record . SIGNATURE: Candis Gamez MD PATIENT NAME: Sri Chacon DATE: January 20, 2025 TIME: 7:55 AM Source Note - Candis Gamez MD - 01/20/2025 8:00 AM EDT HISTORY AND PHYSICAL Sri Chacon : 1975 REFERRING PHYSICIAN: Iveth Hernandez [address] [place] [id number] CHIEF COMPLAINT: Patient presents with: Consult: Overdue for colonoscopy HPI: Sri is a 49 year old female referred for endoscopy. Sri notes abdominal pain. -LLQ feels like someone is twisting-radiates through whole stomach -lays down to try to help -never goes away -trying not to eat and drink to avoid the pain and diarrhea -sees GI 01/31. Sri notes diarrhea when the pain is really bad Sri denies constipation. Sri denies melena. rSi notes bright red blood per rectum. -on toilet paper a couple of times -denies straining Sri denies hemorrhoids. Sri denies family history of colon issues. Sri denies heartburn. -Sri notes unintentional weight loss- unable to give me an amount of weight lost- -Sri notes coughing up blood-x 3 mos all through the day -denies smoking/vape -denies nausea/vomiting -denies upper abdominal pain Sri notes dysphagia. -feels like drink sticks when using a straw -points to her throat Sri denies a history of ulcers/ peptic ulcer disease. Sri has a hx of seizures & migraines. She follows with [facility] neurology. Last OV 08/02. Last seizure 2-3 mos ago. Sri has undergone prior endoscopy. Last colonoscopy was 12/[address] Rubio at [facility]. Sedation: MAC Impression: - The entire examined colon is normal. Biopsied. CONVERTED FINAL DIAGNOSIS Random colon, biopsy - Colonic mucosa with no diagnostic alteration. DSA/glw 01/06/2018 CURRENT MEDICATIONS Current Outpatient Medications Medication Sig Mirtazapine (REMERON) 7.5 mg tablet Take 1 tablet by mouth daily at bedtime. pantoprazole DR (PROTONIX) 20 mg tablet Take 1 tablet by mouth daily before breakfast. Syringe with Needle, Disp, 3 mL 23 x 1 1 Each as directed. lamoTRIgine (LAMICTAL) 100 mg tablet Take 1 tablet by mouth two times a day. To start on or after 08/10/2024, after completing titration schedule. atogepant (QULIPTA) 60 mg tablet Take 1 tablet (60 mg) by mouth once daily. FLUoxetine (PROZAC) 40 mg capsule Take 1 capsule by mouth once daily. peg 3350-Electrolytes (GOLYTELY) 236-22.74-6.74 -5.86 gram suspension Take 4,000 mL by mouth one time only for 1 dose. Refer to printed prep instructions from your provider. ergocalciferol 50,000 unit capsule (VITAMIN D2, DRISDOL) Take 1 capsule by mouth one time a week. levothyroxine (SYNTHROID) 75 mcg tablet Take 1 tablet by mouth daily before breakfast. No current facility-administered medications for this visit. ALLERGIES: Codeine, Morphine, Penicillin G, Shellfish Derived, Benadryl [Diphenhydramine Hcl], Phenergan [Promethazine Hcl], and Aspirin PAST MEDICAL HISTORY PAST MEDICAL HISTORY Diagnosis Date Calculus of kidney 07/03/2006 Calculus of ureter 03/16/2008 Convulsions (HCC) 02/01/2013 Depression Essential hypertension 01/01/2018 Gallstone 12/25/2017 Hydronephrosis 03/16/2008 Hypothyroidism IBS (irritable bowel syndrome) Lactose intolerance in adult 01/21/2018 Migraine 02/01/2013 Nonrheumatic mitral (valve) prolapse 06/15/2017 Seizure disorder (HCC) last 04/2021 Traumatic brain injury (HCC) Unspecified asthma(493.90) Unspecified ectopic without intrauterine (HCC) Ectopic PAST SURGICAL HISTORY PAST SURGICAL HISTORY Procedure Laterality Date ARTHROSCOPY KNEE DIAGNOSTIC W/WO SYNOVIAL BX SPX Left 06/30/2024 Dr. Mccracken ARTHROSCOPY KNEE W/MENISCUS RPR MEDIAL/LATERAL Left 04/07/2024 Left knee arthroscopy medial meniscus root/posterior horn repair CYSTOSCOPY,URETEROSCOPY,LITHOTRIPSY DILATION & CURETTAGE DX&/THER NONOBSTETRIC 1995 [...] TUBE OVARY 01/2005 Hysterectomy, ALLY FAMILY HISTORY FAMILY HISTORY Problem Relation Age of Onset Arthritis Mother Cataract Mother other (pacemaker, defibrillator) Mother other (mitral valve) Father Cataract Maternal Grandmother Difficulty with anesthesia No Family History Thyroid No Family History SOCIAL HISTORY Social History Tobacco Use Smoking status: Never Passive exposure: Never Smokeless tobacco: Never Vaping Use Vaping status: Never Used Substance Use Topics Alcohol use: Yes Comment: rare Drug use: Never REVIEW OF SYMPTOMS: The review of systems data was entered by the nurse and reviewed by me PHYSICAL EXAMINATION: General: The patient is 49 year old, female well nourished, well hydrated in no acute distress. Thepatient is oriented to time, place, and person. VITALS: Blood pressure 124/83, pulse 89, resp. rate 14, weight 61.2 kg (135 lb), SpO2 96%. Body mass index is 25.51 kg/m . HEENT: Normal cephalic, ataumatic, pupils are equally round, sclera are anicteric, mucous membranesare moist, oropharynx is clear. Neck has no masses, asymmetry or lymphadenopathy. Respiratory: Clear to auscultation and percussion. Normal respiratory excursion and pattern. Cardiac: Examination is regular rate and rhythm. Normal S1/S2 Abdominal exam: Soft, nontender, with no palpable masses. No hepatosplenomegaly. No palpable hernias. Extremities: no clubbing, cyanosis or edema. No adenopathy. LABORATORY VALUES: As Noted RADIOLOGIC STUDIES: As Noted Assessment IMPRESSION: LLQ pain, BRBPR, coughing up blood, dysphagia PLAN: I have reviewed my findings with the surgeon. Will plan for upper and lower endoscopy. We discussed the risks and benefits of the planned endoscopy in terms understandable to the patient. I have informed the patient that complications can occur including failure to complete the endoscopy and p erforation. Sri had the opportunity to ask questions concerning the planned endoscopy. Sri freelyconsents to surgery. I plan to use Golytely bowel preparation I have explained to the patient the difference between IV conscious sedation and MAC anesthesia - and I have offered either, according to the patient's wishes. I have explained that with IV conscioussedation there is no anesthesia provider available and therefore there is a limitation of the amount of IV medications that can be given and that the patient may wake up in the middle of the procedure and/or experience pain/discomfort during the procedure. Further discussion was done and the patient was given the opportunity to ask questions and all questions were answered. MAC anesthesia- allergy to benadryl & morphine. Sri was counseled that if there are changes in his/her medical condition, to let the office know if surgery should proceed. If there are changes in patient's medical condition from time of this encounter to the day of the procedure that preclude anesthesia, patient may have procedure cancelled forpatient's safety. Diagnoses: (R10.32) Left lower quadrant abdominal pain (primary encounter diagnosis) (Z12.11) Screening for colon cancer (K62.5) BRBPR (bright red blood per rectum) (R04.2) Coughing up blood (R13.10) Dysphagia, unspecified type Consultation requested by Iveth Hernandez for an opinion regarding screen for colon cancer. My finalrecommendations will be communicated back to the requesting physician by way of shared Medical record or letter to requesting physician via [place] mail. Portions of this documentation were copied and pasted from previous office visit notes in order to provide a cohesive continuity of the history. The note has been reviewed and edited and updated as necessary. Zhanna Shah APRN.SPOOL TENDER [facility] Work Phone: [phone]) 416-406906-13-2025 History and physical note* Candis Gamez MD - 01/20/2025 8:00 AM EDT HISTORY AND PHYSICAL Sri Chacon : 1975 REFERRING PHYSICIAN: Iveth Hernandez [address] [place] [id number] CHIEF COMPLAINT: Patient presents with: Consult: Overdue for colonoscopy HPI: Sri is a 49 year old female referred for endoscopy. rSi notes abdominal pain. -LLQ feels like someone is twisting-radiates through whole stomach -lays down to try to help -never goes away -trying not to eat and drink to avoid the pain and diarrhea -sees GI 01/31. Sri notes diarrhea when the pain is really bad Sri denies constipation. Sri denies melena. Sri notes bright red blood per rectum. -on toilet paper a couple of times -denies straining Sri denies hemorrhoids. Sri denies family history of colon issues. Sri denies heartburn. -Sri notes unintentional weight loss- unable to give me an amount of weight lost- -Sri notes coughing up blood-x 3 mos all through the day -denies smoking/vape -denies nausea/vomiting -denies upper abdominal pain Sri notes dysphagia. -feels like drink sticks when using a straw -points to her throat Sri denies a history of ulcers/ peptic ulcer disease. Sri has a hx of seizures & migraines. She follows with [facility]. Last OV 08/02. Last seizure 2-3 mos ago. Sri has undergone prior endoscopy. Last colonoscopy was 12/[address] Rubio at [facility]. Sedation: MAC Impression: - The entire examined colon is normal. Biopsied. CONVERTED FINAL DIAGNOSIS Random colon, biopsy - Colonic mucosa with no diagnostic alteration. DSA/glw 01/06/2018 CURRENT MEDICATIONS Current Outpatient Medications Medication Sig Mirtazapine (REMERON) 7.5 mg tablet Take 1 tablet by mouth daily at bedtime. pantoprazole DR (PROTONIX) 20 mg tablet Take 1 tablet by mouth daily before breakfast. Syringe with Needle, Disp, 3 mL 23 x 1 1 Each as directed. lamoTRIgine (LAMICTAL) 100 mg tablet Take 1 tablet by mouth two times a day. To start on or after 08/10/2024, after completing titration schedule. atogepant (QULIPTA) 60 mg tablet Take 1 tablet (60 mg) by mouth once daily. FLUoxetine (PROZAC) 40 mg capsule Take 1 capsule by mouth once daily. peg 3350-Electrolytes (GOLYTELY) 236-22.74-6.74 -5.86 gram suspension Take 4,000 mL by mouth one time only for 1 dose. Refer to printed prep instructions from your provider. ergocalciferol 50,000 unit capsule (VITAMIN D2, DRISDOL) Take 1 capsule by mouth one time a week. levothyroxine (SYNTHROID) 75 mcg tablet Take 1 tablet by mouth daily before breakfast. No current facility-administered medications for this visit. ALLERGIES: Codeine, Morphine, Penicillin G, Shellfish Derived, Benadryl [Diphenhydramine Hcl], Phenergan [Promethazine Hcl], and Aspirin PAST MEDICAL HISTORY PAST MEDICAL HISTORY Diagnosis Date Calculus of kidney 07/03/2006 Calculus of ureter 03/16/2008 Convulsions (HCC) 02/01/2013 Depression Essential hypertension 01/01/2018 Gallstone 12/25/2017 Hydronephrosis 03/16/2008 Hypothyroidism IBS (irritable bowel syndrome) Lactose intolerance in adult 01/21/2018 Migraine 02/01/2013 Nonrheumatic mitral (valve) prolapse 06/15/2017 Seizure disorder (HCC) last 04/2021 Traumatic brain injury (HCC) Unspecified asthma(493.90) Unspecified ectopic without intrauterine (HCC) Ectopic PAST SURGICAL HISTORY PAST SURGICAL HISTORY Procedure Laterality Date ARTHROSCOPY KNEE DIAGNOSTIC W/WO SYNOVIAL BX SPX Left 06/30/2024 Dr. Mccracken ARTHROSCOPY KNEE W/MENISCUS RPR MEDIAL/LATERAL Left 04/07/2024 Left knee arthroscopy medial meniscus root/posterior horn repair CYSTOSCOPY,URETEROSCOPY,LITHOTRIPSY DILATION & CURETTAGE DX&/THER NONOBSTETRIC 1995 [...] TUBE OVARY 01/2005 Hysterectomy, ALLY FAMILY HISTORY FAMILY HISTORY Problem Relation Age of Onset Arthritis Mother Cataract Mother other (pacemaker, defibrillator) Mother other (mitral valve) Father Cataract Maternal Grandmother Difficulty with anesthesia No Family History Thyroid No Family History SOCIAL HISTORY Social History Tobacco Use Smoking status: Never Passive exposure: Never Smokeless tobacco: Never Vaping Use Vaping status: Never Used Substance Use Topics Alcohol use: Yes Comment: rare Drug use: Never REVIEW OF SYMPTOMS: The review of systems data was entered by the nurse and reviewed by me PHYSICAL EXAMINATION: General: The patient is 49 year old, female well nourished, well hydrated in no acute distress. Thepatient is oriented to time, place, and person. VITALS: Blood pressure 124/83, pulse 89, resp. rate 14, weight 61.2 kg (135 lb), SpO2 96%. Body mass index is 25.51 kg/m . HEENT: Normal cephalic, ataumatic, pupils are equally round, sclera are anicteric, mucous membranesare moist, oropharynx is clear. Neck has no masses, asymmetry or lymphadenopathy. Respiratory: Clear to auscultation and percussion. Normal respiratory excursion and pattern. Cardiac: Examination is regular rate and rhythm. Normal S1/S2 Abdominal exam: Soft, nontender, with no palpable masses. No hepatosplenomegaly. No palpable hernias. Extremities: no clubbing, cyanosis or edema. No adenopathy. LABORATORY VALUES: As Noted RADIOLOGIC STUDIES: As Noted Assessment IMPRESSION: LLQ pain, BRBPR, coughing up blood, dysphagia PLAN: I have reviewed my findings with the surgeon. Will plan for upper and lower endoscopy. We discussed the risks and benefits of the planned endoscopy in terms understandable to the patient. I have informed the patient that complications can occur including failure to complete the endoscopy and p erforation. Sri had the opportunity to ask questions concerning the planned endoscopy. Sri freelyconsents to surgery. I plan to use Golytely bowel preparation I have explained to the patient the difference between IV conscious sedation and MAC anesthesia - and I have offered either, according to the patient's wishes. I have explained that with IV conscioussedation there is no anesthesia provider available and therefore there is a limitation of the amount of IV medications that can be given and that the patient may wake up in the middle of the procedure and/or experience pain/discomfort during the procedure. Further discussion was done and the patient was given the opportunity to ask questions and all questions were answered. MAC anesthesia- allergy to benadryl & morphine. Sri was counseled that if there are changes in his/her medical condition, to let the office know if surgery should proceed. If there are changes in patient's medical condition from time of this encounter to the day of the procedure that preclude anesthesia, patient may have procedure cancelled forpatient's safety. Diagnoses: (R10.32) Left lower quadrant abdominal pain (primary encounter diagnosis) (Z12.11) Screening for colon cancer (K62.5) BRBPR (bright red blood per rectum) (R04.2) Coughing up blood (R13.10) Dysphagia, unspecified type Consultation requested by Iveth Hernandez for an opinion regarding screen for colon cancer. My finalrecommendations will be communicated back to the requesting physician by way of shared Medical record or letter to requesting physician via [place] mail. Portions of this documentation were copied and pasted from previous office visit notes in order to provide a cohesive continuity of the history. The note has been reviewed and edited and updated as necessary. Zhanna Shah APRN.SPOOL TENDER [facility]06-13-2025 History and physical note* Candis Gamez MD - 01/20/2025 8:00 AM EDT UPDATED HISTORY AND PHYSICAL EXAMINATION SERVICE DATE: 01/20/2025 SERVICE TIME: 7:55 Participation of a fellow, resident, medical student, or advanced practice provider student in performing the sensitive examination was discussed with the patient or authorized videotape sales representative. The patient or authorized videotape sales representative has agreed to proceed with the sensitive examination. PHYSICAL EXAM MUST BE COMPLETED ON ADMISSION The History and Physical (completed in the past 30 days) has been reviewed and the patient has beenexamined. The contents accurately reflect the patient's condition with the following additions or revisions since the H&P was completed. Examination indicates no changes. This H&P can be found in the Electronic Medical Record . SIGNATURE: Candis Gamez MD PATIENT NAME: Sri Chacon DATE: January 20, 2025 TIME: 7:55 AM Source Note - Candis Gamez MD - 01/20/2025 8:00 AM EDT HISTORY AND PHYSICAL Sri Chacon : 1975 REFERRING PHYSICIAN: Iveth Hernandez [address] [place] [id number] CHIEF COMPLAINT: Patient presents with: Consult: Overdue for colonoscopy HPI: Sri is a 49 year old female referred for endoscopy. Sri notes abdominal pain. -LLQ feels like someone is twisting-radiates through whole stomach -lays down to try to help -never goes away -trying not to eat and drink to avoid the pain and diarrhea -sees GI 01/31. Sri notes diarrhea when the pain is really bad Sri denies constipation. Sri denies melena. Sri notes bright red blood per rectum. -on toilet paper a couple of times -denies straining Sri denies hemorrhoids. Sri denies family history of colon issues. Sri denies heartburn. -Sri notes unintentional weight loss- unable to give me an amount of weight lost- -Sri notes coughing up blood-x 3 mos all through the day -denies smoking/vape -denies nausea/vomiting -denies upper abdominal pain Sri notes dysphagia. -feels like drink sticks when using a straw -points to her throat Sri denies a history of ulcers/ peptic ulcer disease. Sri has a hx of seizures & migraines. She follows with [facility] neurology. Last OV 08/02. Last seizure 2-3 mos ago. Sri has undergone prior endoscopy. Last colonoscopy was 12/[address] Rubio at [facility]. Sedation: MAC Impression: - The entire examined colon is normal. Biopsied. CONVERTED FINAL DIAGNOSIS Random colon, biopsy - Colonic mucosa with no diagnostic alteration. DSA/glw 01/06/2018 CURRENT MEDICATIONS Current Outpatient Medications Medication Sig Mirtazapine (REMERON) 7.5 mg tablet Take 1 tablet by mouth daily at bedtime. pantoprazole DR (PROTONIX) 20 mg tablet Take 1 tablet by mouth daily before breakfast. Syringe with Needle, Disp, 3 mL 23 x 1 1 Each as directed. lamoTRIgine (LAMICTAL) 100 mg tablet Take 1 tablet by mouth two times a day. To start on or after 08/10/2024, after completing titration schedule. atogepant (QULIPTA) 60 mg tablet Take 1 tablet (60 mg) by mouth once daily. FLUoxetine (PROZAC) 40 mg capsule Take 1 capsule by mouth once daily. peg 3350-Electrolytes (GOLYTELY) 236-22.74-6.74 -5.86 gram suspension Take 4,000 mL by mouth one time only for 1 dose. Refer to printed prep instructions from your provider. ergocalciferol 50,000 unit capsule (VITAMIN D2, DRISDOL) Take 1 capsule by mouth one time a week. levothyroxine (SYNTHROID) 75 mcg tablet Take 1 tablet by mouth daily before breakfast. No current facility-administered medications for this visit. ALLERGIES: Codeine, Morphine, Penicillin G, Shellfish Derived, Benadryl [Diphenhydramine Hcl], Phenergan [Promethazine Hcl], and Aspirin PAST MEDICAL HISTORY PAST MEDICAL HISTORY Diagnosis Date Calculus of kidney 07/03/2006 Calculus of ureter 03/16/2008 Convulsions (HCC) 02/01/2013 Depression Essential hypertension 01/01/2018 Gallstone 12/25/2017 Hydronephrosis 03/16/2008 Hypothyroidism IBS (irritable bowel syndrome) Lactose intolerance in adult 01/21/2018 Migraine 02/01/2013 Nonrheumatic mitral (valve) prolapse 06/15/2017 Seizure disorder (HCC) last 04/2021 Traumatic brain injury (HCC) Unspecified asthma(493.90) Unspecified ectopic without intrauterine (HCC) Ectopic PAST SURGICAL HISTORY PAST SURGICAL HISTORY Procedure Laterality Date ARTHROSCOPY KNEE DIAGNOSTIC W/WO SYNOVIAL BX SPX Left 06/30/2024 Dr. Mccracken ARTHROSCOPY KNEE W/MENISCUS RPR MEDIAL/LATERAL Left 04/07/2024 Left knee arthroscopy medial meniscus root/posterior horn repair CYSTOSCOPY,URETEROSCOPY,LITHOTRIPSY DILATION & CURETTAGE DX&/THER NONOBSTETRIC 1995 [...] TUBE OVARY 01/2005 Hysterectomy, ALLY FAMILY HISTORY FAMILY HISTORY Problem Relation Age of Onset Arthritis Mother Cataract Mother other (pacemaker, defibrillator) Mother other (mitral valve) Father Cataract Maternal Grandmother Difficulty with anesthesia No Family History Thyroid No Family History SOCIAL HISTORY Social History Tobacco Use Smoking status: Never Passive exposure: Never Smokeless tobacco: Never Vaping Use Vaping status: Never Used Substance Use Topics Alcohol use: Yes Comment: rare Drug use: Never REVIEW OF SYMPTOMS: The review of systems data was entered by the nurse and reviewed by me PHYSICAL EXAMINATION: General: The patient is 49 year old, female well nourished, well hydrated in no acute distress. Thepatient is oriented to time, place, and person. VITALS: Blood pressure 124/83, pulse 89, resp. rate 14, weight 61.2 kg (135 lb), SpO2 96%. Body mass index is 25.51 kg/m . HEENT: Normal cephalic, ataumatic, pupils are equally round, sclera are anicteric, mucous membranesare moist, oropharynx is clear. Neck has no masses, asymmetry or lymphadenopathy. Respiratory: Clear to auscultation and percussion. Normal respiratory excursion and pattern. Cardiac: Examination is regular rate and rhythm. Normal S1/S2 Abdominal exam: Soft, nontender, with no palpable masses. No hepatosplenomegaly. No palpable hernias. Extremities: no clubbing, cyanosis or edema. No adenopathy. LABORATORY VALUES: As Noted RADIOLOGIC STUDIES: As Noted Assessment IMPRESSION: LLQ pain, BRBPR, coughing up blood, dysphagia PLAN: I have reviewed my findings with the surgeon. Will plan for upper and lower endoscopy. We discussed the risks and benefits of the planned endoscopy in terms understandable to the patient. I have informed the patient that complications can occur including failure to complete the endoscopy and p erforation. Sri had the opportunity to ask questions concerning the planned endoscopy. Sri freelyconsents to surgery. I plan to use Golytely bowel preparation I have explained to the patient the difference between IV conscious sedation and MAC anesthesia - and I have offered either, according to the patient's wishes. I have explained that with IV conscioussedation there is no anesthesia provider available and therefore there is a limitation of the amount of IV medications that can be given and that the patient may wake up in the middle of the procedure and/or experience pain/discomfort during the procedure. Further discussion was done and the patient was given the opportunity to ask questions and all questions were answered. MAC anesthesia- allergy to benadryl & morphine. Sri was counseled that if there are changes in his/her medical condition, to let the office know if surgery should proceed. If there are changes in patient's medical condition from time of this encounter to the day of the procedure that preclude anesthesia, patient may have procedure cancelled forpatient's safety. Diagnoses: (R10.32) Left lower quadrant abdominal pain (primary encounter diagnosis) (Z12.11) Screening for colon cancer (K62.5) BRBPR (bright red blood per rectum) (R04.2) Coughing up blood (R13.10) Dysphagia, unspecified type Consultation requested by Iveth Hernandez for an opinion regarding screen for colon cancer. My finalrecommendations will be communicated back to the requesting physician by way of shared Medical record or letter to requesting physician via [place] mail. Portions of this documentation were copied and pasted from previous office visit notes in order to provide a cohesive continuity of the history. The note has been reviewed and edited and updated as necessary. Zhanna Shah APRN.SPOOL TENDER * Candis Gamez MD - 01/20/2025 8:00 AM EDT HISTORY AND PHYSICAL Sri Chacon : 1975 REFERRING PHYSICIAN: Iveth Hernandez [address] [place] [id number] CHIEF COMPLAINT: Patient presents with: Consult: Overdue for colonoscopy HPI: Sri is a 49 year old female referred for endoscopy. Sri notes abdominal pain. -LLQ feels like someone is twisting-radiates through whole stomach -lays down to try to help -never goes away -trying not to eat and drink to avoid the pain and diarrhea -sees GI 01/31. Sri notes diarrhea when the pain is really bad Sri denies constipation. Sri denies melena. Sri notes bright red blood per rectum. -on toilet paper a couple of times -denies straining Sri denies hemorrhoids. Sri denies family history of colon issues. Sri denies heartburn. -Sri notes unintentional weight loss- unable to give me an amount of weight lost- -Sri notes coughing up blood-x 3 mos all through the day -denies smoking/vape -denies nausea/vomiting -denies upper abdominal pain Sri notes dysphagia. -feels like drink sticks when using a straw -points to her throat Sri denies a history of ulcers/ peptic ulcer disease. Sri has a hx of seizures & migraines. She follows with [facility]. Last OV 08/02. Last seizure 2-3 mos ago. Sri has undergone prior endoscopy. Last colonoscopy was 12/[address] Rubio at [facility]. Sedation: MAC Impression: - The entire examined colon is normal. Biopsied. CONVERTED FINAL DIAGNOSIS Random colon, biopsy - Colonic mucosa with no diagnostic alteration. DSA/glw 01/06/2018 CURRENT MEDICATIONS Current Outpatient Medications Medication Sig Mirtazapine (REMERON) 7.5 mg tablet Take 1 tablet by mouth daily at bedtime. pantoprazole DR (PROTONIX) 20 mg tablet Take 1 tablet by mouth daily before breakfast. Syringe with Needle, Disp, 3 mL 23 x 1 1 Each as directed. lamoTRIgine (LAMICTAL) 100 mg tablet Take 1 tablet by mouth two times a day. To start on or after 08/10/2024, after completing titration schedule. atogepant (QULIPTA) 60 mg tablet Take 1 tablet (60 mg) by mouth once daily. FLUoxetine (PROZAC) 40 mg capsule Take 1 capsule by mouth once daily. peg 3350-Electrolytes (GOLYTELY) 236-22.74-6.74 -5.86 gram suspension Take 4,000 mL by mouth one time only for 1 dose. Refer to printed prep instructions from your provider. ergocalciferol 50,000 unit capsule (VITAMIN D2, DRISDOL) Take 1 capsule by mouth one time a week. levothyroxine (SYNTHROID) 75 mcg tablet Take 1 tablet by mouth daily before breakfast. No current facility-administered medications for this visit. ALLERGIES: Codeine, Morphine, Penicillin G, Shellfish Derived, Benadryl [Diphenhydramine Hcl], Phenergan [Promethazine Hcl], and Aspirin PAST MEDICAL HISTORY PAST MEDICAL HISTORY Diagnosis Date Calculus of kidney 07/03/2006 Calculus of ureter 03/16/2008 Convulsions (HCC) 02/01/2013 Depression Essential hypertension 01/01/2018 Gallstone 12/25/2017 Hydronephrosis 03/16/2008 Hypothyroidism IBS (irritable bowel syndrome) Lactose intolerance in adult 01/21/2018 Migraine 02/01/2013 Nonrheumatic mitral (valve) prolapse 06/15/2017 Seizure disorder (HCC) last 04/2021 Traumatic brain injury (HCC) Unspecified asthma(493.90) Unspecified ectopic without intrauterine (HCC) Ectopic PAST SURGICAL HISTORY PAST SURGICAL HISTORY Procedure Laterality Date ARTHROSCOPY KNEE DIAGNOSTIC W/WO SYNOVIAL BX SPX Left 06/30/2024 Dr. Mccracken ARTHROSCOPY KNEE W/MENISCUS RPR MEDIAL/LATERAL Left 04/07/2024 Left knee arthroscopy medial meniscus root/posterior horn repair CYSTOSCOPY,URETEROSCOPY,LITHOTRIPSY DILATION & CURETTAGE DX&/THER NONOBSTETRIC 1995 [...] TUBE OVARY 01/2005 Hysterectomy, ALLY FAMILY HISTORY FAMILY HISTORY Problem Relation Age of Onset Arthritis Mother Cataract Mother other (pacemaker, defibrillator) Mother other (mitral valve) Father Cataract Maternal Grandmother Difficulty with anesthesia No Family History Thyroid No Family History SOCIAL HISTORY Social History Tobacco Use Smoking status: Never Passive exposure: Never Smokeless tobacco: Never Vaping Use Vaping status: Never Used Substance Use Topics Alcohol use: Yes Comment: rare Drug use: Never REVIEW OF SYMPTOMS: The review of systems data was entered by the nurse and reviewed by me PHYSICAL EXAMINATION: General: The patient is 49 year old, female well nourished, well hydrated in no acute distress. Thepatient is oriented to time, place, and person. VITALS: Blood pressure 124/83, pulse 89, resp. rate 14, weight 61.2 kg (135 lb), SpO2 96%. Body mass index is 25.51 kg/m . HEENT: Normal cephalic, ataumatic, pupils are equally round, sclera are anicteric, mucous membranesare moist, oropharynx is clear. Neck has no masses, asymmetry or lymphadenopathy. Respiratory: Clear to auscultation and percussion. Normal respiratory excursion and pattern. Cardiac: Examination is regular rate and rhythm. Normal S1/S2 Abdominal exam: Soft, nontender, with no palpable masses. No hepatosplenomegaly. No palpable hernias. Extremities: no clubbing, cyanosis or edema. No adenopathy. LABORATORY VALUES: As Noted RADIOLOGIC STUDIES: As Noted Assessment IMPRESSION: LLQ pain, BRBPR, coughing up blood, dysphagia PLAN: I have reviewed my findings with the surgeon. Will plan for upper and lower endoscopy. We discussed the risks and benefits of the planned endoscopy in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 Comments 5 High Risk 12 No question data found. (All drug screens are appropriate unless indicated otherwise) Notabl e Events During Course of Treatment: Treatment History: PAIN PROCEDURES: DATE PROCEDURE IMPROVEMENT 10/26/2024 Corbin sahu NB No relief Data Reviewed Today: Allergies: ALLERGIES Allergen Reactions Codeine Hives, Swelling swelling-airway/face Morphine Swelling Penicillin G Hives, Swelling Shellfish Derived Anaphylaxis Benadryl [Diphenhyd* Mental Status Change Phenergan [Prometha* Mental Status Change Aspirin Rash Social History Tobacco Use Smoking status: Never Passive exposure: Never Smokeless tobacco: Never Vaping Use Vaping status: Never Used Substance Use Topics Alcohol use: Yes Comment: rare Drug use: Never 12/06/2024 12/14/2024 INTAKE PAIN ASSESSMENT Are you having pain associated with your visit today? No Yes, Provider notified Pain Scales Verbal (Numeric Rating or Visual Analog Scale) Pain Level 10 Pain Location Head Knee-Left Description Contraction;Crushing;Cutting;Pressure;Pulsating;Radiating;Sharp;Shooting;Stabbin g;Stiffness;Tenderness;Throbbing Duration Units Months Frequency Continuous Compliance: PDMP website checked and validated on 12/15/2024 by Frida Vargas APRN.SPOOL TENDER All prescriptions have been APPROPRIATELY filled. No suspicious activity was identified. 02/27/2022 09/22/2024 AG SPINE COMBINATION Questionnaire GREENLIGHT Completed Date 02/27/2022 Questionnaire Opiod Risk Tool Opiod Risk Tool Completed Date 02/27/2022 09/22/2024 Comments 5 High Risk 12 (All drug screens are appropriate unless indicated otherwise) Risk Assessment: DARREL-7: 07/10/2024 08/23/2024 11/29/2024 DARREL - 7 SCORES Score 18 18 18 (0-4) minimal anxiety, (5-9) mild anxiety, (10-14) moderate anxiety, (15-21) severe anxiety PHQ-9: 09/19/2024 10/19/2024 11/30/2024 PHQ-9 Score 17 21 21 (0-4) minimal depression, (5-9) mild depression, (10-14) moderate depression, (15-19) moderately severe depression, (20-27) severe depression Diagnostic Studies: Relevant Imaging: MRI Spine Report No resulted procedures found. Electrodiagnostic Study (EMG): None Recent Labs: Creatinine Date Value Ref Range Status 12/07/2024 0.88 0.58 - 0.96 mg/dL Final No results found for: EGFR No results found for: PCGLUCOSE Current Medications, Past Medical History, Past Surgical History, Family History, Social History and Review of Systems: On today's date, noted above, I have confirmed and edited as necessary, the PFSH and ROS obtained by others. Physical Exam: 12/15/24 1020 Pulse: 85 Resp: 16 SpO2: 98% Physical Exam Vitals reviewed. Constitutional: General: She is not in acute distress. Appearance: She is not ill-appearing. HENT: Head: Normocephalic and atraumatic. Eyes: Conjunctiva/sclera: Conjunctivae normal. Cardiovascular: Pulses: Normal pulses. Pulmonary: Effort: Pulmonary effort is normal. No respiratory distress. Skin: General: Skin is warm and dry. Neurological: Mental Status: She is alert and oriented to person, place, and time. Psychiatric: Mood and Affect: Mood and affect normal. Behavior: Behavior normal. Behavior is cooperative. IMPRESSION: 49 year old female presents with complaint(s) of Migraine pain. Patient has a personal series of 3 sphenopalatine nerve blocks with no relief. we will continue with the series and evaluate after the next injection. I did discuss briefly and I sent a message to her neurologist that maybeketamine might be an option for her to help her with her migraines. If the sphenopalatine teen nerve block does not work at the second injection I will refer the patient to chronic pain clinic at [facility] to see if they have other options to help her with her pain. Patient stated understanding with this plan. We also briefly discussed opioid therapy and I explained the risk of potential migraines with opioid use and at this time we will avoid. Diagnoses: (G43.711) Intractable chronic migraine without aura and with status migrainosus (primaryencounter diagnosis) PLAN: Sri Chacon would benefit from the following to reach personal goals for decreasing pain, improving function and work participation, and/or improving quality of life: Medications: No Changes - Continue Current Medications Interventional Procedures: Continue with the series Sphenopalatine ganglion block NONE at N/A Certified Drug Counselor Needed: Nerve Blocks - YES (Exception: Occipital Nerve Blocks - NO) Anticoagulant - Hold Needed: N/A (Not currently on Anticoagulants) Anticoagulant - Currently Taking: None Allergies (relevant): None Scheduling - Mobility (Can Patient independently transfer on/off an OR or Procedure table?): YES (May schedule at any location) Scheduling - Additional Info: None X 3 2 weeks apart Studies: None Functional Pentecostalism: NONE Referrals: No additional considerations at present Follow-up: virtual visit after next Depending on response to the above plan, consider: tbd Compliance and Clinic Policies Reviewed and/or Discussed Today: None Attribution: In addition to reviewing the information noted above, some elements copied from my most recent clinical note(s), including the physical exam (completed in entirety today), and the impression and plan sections, have been updated where appropriate. All reflect current medical decision making from today's date. Frida Vargas APRN.[facility] * Bonnie Muse MA - 12/15/2024 10:18 AM EDT Review of Systems Constitutional: Negative for activity change, chills, fever and unexpected weight change. Gastrointestinal: Negative for bowel retention or incontinence Genitourinary: Negative for difficulty urinating. Negative for bladder retention or incontinence Musculoskeletal: Positive for arthralgias, gait problem, joint swelling and myalgias. Negative for back pain, neck pain and neck stiffness. Neurological: Positive for headaches. Negative for weakness and numbness. Psychiatric/Behavioral: Positive for dysphoric mood and sleep disturbance. Negative for suicidal ideas. The patient is nervous/anxious. documented in this encounter[facility]25 NoteHNO ID: [id number] Author: BONNIE MUSE MA Service: ? Author Type: Business Continuity Director Type: Progress Notes Filed: 12/15/2024 12:44 Note Text: Review of Systems Constitutional: Negative for activity change, chills, fever and unexpected weight change. Gastrointestinal: Negative for bowel retention or incontinence Genitourinary: Negative for difficulty urinating. Negative for bladder retention or incontinence Musculoskeletal: Positive for arthralgias, gait problem, joint swelling and myalgias. Negative for back pain, neck pain and neck stiffness. Neurological: Positive for headaches. Negative for weakness and numbness. Psychiatric/Behavioral: Positive for dysphoric mood and sleep disturbance. Negative for suicidal ideas. The patient is nervous/anxious.[facility]05-05-2025 Telephone encounter Note* Telephone Encounter - Iveth Hernandez APRN.CNP - 12/12/2024 1:46 PM EDT Please see other encounter that addressed this. [facility]05-[facility] Miscellaneous Notes* Telephone Encounter - Iveth Hernandez APRN.CNP - 12/12/2024 1:46 PM EDT Please see other encounter that addressed this. * Telephone Encounter - Veronika Guallpa MA - 12/12/2024 11:36 AM EDT Pt. Carmelo on vm stating she is trying to figure out what we are going to do with my blood work. No other information given. I am assuming it is for her thyroid. Please advise. Veronika Guallpa MA documented in this encounterOhio[facility]05-05-2025 Telephone encounter Note * Telephone Encounter - Veronika Guallpa MA - 12/12/2024 11:36 AM EDT Pt. Carmelo on vm stating she is trying to figure out what we are going to do with my blood work. No other information given. I am assuming it is for her thyroid. Please advise. Veronika Guallpa MA [facility]05-05-2025 Telephone encounter Note* Telephone Encounter - Iveth Hernandez APRN.CNP - 12/12/2024 8:41 AM EDT TSH was high and free T4 was low- increasing Levothyroxine to 88 mcg daily in the morning. Rx sent in and recheck in 6 weeks- orders placed. Vitamin D was very low- starting on a high dose weekly replacement for 12 weeks. Rx sent in. CMP is back in normal range including liver enzymes. GGT test was also normal. HIV, Hep C negative. Lipid panel is elevated but her overall risk is still low. Recommend working on diet (since unable to exercise currently). Follow low fat diet. [facility]05-05-[facility] Miscellaneous Notes* Telephone Encounter - Iveth Hernandez APRN.CNP - 12/12/2024 8:41 AM EDT TSH was high and free T4 was low- increasing Levothyroxine to 88 mcg daily in the morning. Rx sent in and recheck in 6 weeks- orders placed. Vitamin D was very low- starting on a high dose weekly replacement for 12 weeks. Rx sent in. CMP is back in normal range including liver enzymes. GGT test was also normal. HIV, Hep C negative. Lipid panel is elevated but her overall risk is still low. Recommend working on diet (since unable to exercise currently). Follow low fat diet. documented in this encounterOhio[facility]04-30-2025 NoteMer[facility] Procedure note* Zhanna Shah APRN.GEMMA - 12/07/2024 9:38 AM EDT REVIEW OF SYSTEMS: General: The patient denies fatigue, denies weight loss, denies weight gain, denies feeling hot, and denies feelings of cold. Eyes: The patient denies glaucoma, denies eye injury/surgery, wears glasses or contacts. Ear/Nose/Throat: The patient denies allergies, denies hayfever, denies ear infections, and denies bloody noses. Cardiovascular: The patient denies chest pain, denies heart disease, denies high blood pressure,denies cardiac stent, denies prior heart attack, denies irregular heart beat, denies high cholesterol, denies poor circulation, denies heart failure, other cardiac issues, denies claudication, denies cold feet, denies peripheral arterial stent. Respiratory: The patient denies tuberculosis, denies pneumonia, denies frequent cough, denies pulmonary embolism, denies shortness of breath, and notes coughing up blood. Gastrointestinal: The patient denies difficulty swallowing, denies acid reflux, denies ulcers, denies vomiting, denies jaundice/hepatitis, denies gallbladder problems, denies black or tarry stools, denies hemorrhoids, denies bleeding from rectum, denies diverticulitis, denies constipation, denies diarrhea, denies loss of stool control, and denies hernias. Kidney/Bladder: The patient notes kidney stones, denies urine infections, and denies bloody urine. Skin: The patient denies a history of skin cancer, denies bleeding/changing moles, and denies a history of skin rash. Neurologic: The patient notes a history of epilepsy/convulsions, notes headaches, denies head/spinal injuries, and denies stroke/TIA. Psychiatric: The patient denies psychiatric medications, notes depression, and denies voices, denies substance abuse. Endocrine: The patient denies thyroid disorders, denies diabetes, and denies hormonal problems. Hematologic: The patient denies a history of bruising, denies bleeding, and denies anemia, denies blood clots. Infections: The patient denies a history of measles and mumps, denies rheumatic fever, and denies sexually transmitted diseases. Musculoskeletal: The patient denies back pain/injury, denies back problems, denies sciatica, notes knee/foot trouble, denies arthritis, or denies gout. When was patient's last Mammogram screening? 2018 Last Colonoscopy: 2018 Bernice Graf RN [facility]04-30-[facility] Procedure note* Zhanna Shah APRN.SPOOL TENDER - 12/07/2024 9:38 AM EDT REVIEW OF SYSTEMS: General: The patient denies fatigue, denies weight loss, denies weight gain, denies feeling hot, and denies feelings of cold. Eyes: The patient denies glaucoma, denies eye injury/surgery, wears glasses or contacts. Ear/Nose/Throat: The patient denies allergies, denies hayfever, denies ear infections, and denies bloody noses. Cardiovascular: The patient denies chest pain, denies heart disease, denies high blood pressure,denies cardiac stent, denies prior heart attack, denies irregular heart beat, denies high cholesterol, denies poor circulation, denies heart failure, other cardiac issues, denies claudication, denies cold feet, denies peripheral arterial stent. Respiratory: The patient denies tuberculosis, denies pneumonia, denies frequent cough, denies pulmonary embolism, denies shortness of breath, and notes coughing up blood. Gastrointestinal: The patient denies difficulty swallowing, denies acid reflux, denies ulcers, denies vomiting, denies jaundice/hepatitis, denies gallbladder problems, denies black or tarry stools, denies hemorrhoids, denies bleeding from rectum, denies diverticulitis, denies constipation, denies diarrhea, denies loss of stool control, and denies hernias. Kidney/Bladder: The patient notes kidney stones, denies urine infections, and denies bloody urine. Skin: The patient denies a history of skin cancer, denies bleeding/changing moles, and denies a history of skin rash. Neurologic: The patient notes a history of epilepsy/convulsions, notes headaches, denies head/spinal injuries, and denies stroke/TIA. Psychiatric: The patient denies psychiatric medications, notes depression, and denies voices, denies substance abuse. Endocrine: The patient denies thyroid disorders, denies diabetes, and denies hormonal problems. Hematologic: The patient denies a history of bruising, denies bleeding, and denies anemia, denies blood clots. Infections: The patient denies a history of measles and mumps, denies rheumatic fever, and denies sexually transmitted diseases. Musculoskeletal: The patient denies back pain/injury, denies back problems, denies sciatica, notes knee/foot trouble, denies arthritis, or denies gout. When was patient's last Mammogram screening? 2018 Last Colonoscopy: 2018 Bernice Graf RN documented in this encounterOhio[facility]04-30-2025 History of Present illness Narrative* Zhanna Shah APRN.CNP - 12/07/2024 9:30 AM EDT HISTORY AND PHYSICAL Sri Chacon : 1975 REFERRING PHYSICIAN: Iveth Hernandez [address] [place] [id number] CHIEF COMPLAINT: Patient presents with: Consult: Overdue for colonoscopy HPI: Sri is a 49 year old female referred for endoscopy. Sri notes abdominal pain. -LLQ feels like someone is twisting-radiates through whole stomach -lays down to try to help -never goes away -trying not to eat and drink to avoid the pain and diarrhea -sees GI 01/31. Sri notes diarrhea when the pain is really bad Sri denies constipation. Sri denies melena. Sri notes bright red blood per rectum. -on toilet paper a couple of times -denies straining Sri denies hemorrhoids. Sri denies family history of colon issues. Sri denies heartburn. -Sri notes unintentional weight loss- unable to give me an amount of weight lost- -Sri notes coughing up blood-x 3 mos all through the day -denies smoking/vape -denies nausea/vomiting -denies upper abdominal pain Sri notes dysphagia. -feels like drink sticks when using a straw -points to her throat Sri denies a history of ulcers/ peptic ulcer disease. Sri has a hx of seizures & migraines. She follows with [facility] neurology. Last OV 08/02. Last seizure 2-3 mos ago. Sri has undergone prior endoscopy. Last colonoscopy was 12/[address] Rubio at [facility]. Sedation: MAC Impression: - The entire examined colon is normal. Biopsied. CONVERTED FINAL DIAGNOSIS Random colon, biopsy - Colonic mucosa with no diagnostic alteration. DSA/glw 01/06/2018 Current Outpatient Medications Medication Sig Mirtazapine (REMERON) 7.5 mg tablet Take 1 tablet by mouth daily at bedtime. pantoprazole DR (PROTONIX) 20 mg tablet Take 1 tablet by mouth daily before breakfast. Syringe with Needle, Disp, 3 mL 23 x 1 1 Each as directed. lamoTRIgine (LAMICTAL) 100 mg tablet Take 1 tablet by mouth two times a day. To start on or after 08/10/2024, after completing titration schedule. atogepant (QULIPTA) 60 mg tablet Take 1 tablet (60 mg) by mouth once daily. FLUoxetine (PROZAC) 40 mg capsule Take 1 capsule by mouth once daily. peg 3350-Electrolytes (GOLYTELY) 236-22.74-6.74 -5.86 gram suspension Take 4,000 mL by mouth one time only for 1 dose. Refer to printed prep instructions from your provider. ergocalciferol 50,000 unit capsule (VITAMIN D2, DRISDOL) Take 1 capsule by mouth one time a week. levothyroxine (SYNTHROID) 75 mcg tablet Take 1 tablet by mouth daily before breakfast. No current facility-administered medications for this visit. ALLERGIES: Codeine, Morphine, Penicillin G, Shellfish Derived, Benadryl [Diphenhydramine Hcl], Phenergan [Promethazine Hcl], and Aspirin PAST MEDICAL HISTORY Diagnosis Date Calculus of kidney 07/03/2006 Calculus of ureter 03/16/2008 Convulsions (HCC) 02/01/2013 Depression Essential hypertension 01/01/2018 Gallstone 12/25/2017 Hydronephrosis 03/16/2008 Hypothyroidism IBS (irritable bowel syndrome) Lactose intolerance in adult 01/21/2018 Migraine 02/01/2013 Nonrheumatic mitral (valve) prolapse 06/15/2017 Seizure disorder (HCC) last 04/2021 Traumatic brain injury (HCC) Unspecified asthma(493.90) Unspecified ectopic without intrauterine (HCC) Ectopic PAST SURGICAL HISTORY Procedure Laterality Date ARTHROSCOPY KNEE DIAGNOSTIC W/WO SYNOVIAL BX SPX Left 06/30/2024 Dr. Mccracken ARTHROSCOPY KNEE W/MENISCUS RPR MEDIAL/LATERAL Left 04/07/2024 Left knee arthroscopy medial meniscus root/posterior horn repair CYSTOSCOPY,URETEROSCOPY,LITHOTRIPSY DILATION & CURETTAGE DX&/THER NONOBSTETRIC 1995 [...] other (mitral valve) Father Cataract Maternal Grandmother Difficulty with anesthesia No Family History Thyroid No Family History Social History Tobacco Use Smoking status: Never Passive exposure: Never Smokeless tobacco: Never Vaping Use Vaping status: Never Used Substance Use Topics Alcohol use: Yes Comment: rare Drug use: Never REVIEW OF SYMPTOMS: The review of systems data was entered by the nurse and reviewed by me PHYSICAL EXAMINATION: General: The patient is 49 year old, female well nourished, well hydrated in no acute distress. Thepatient is oriented to time, place, and person. VITALS: Blood pressure 124/83, pulse 89, resp. rate 14, weight 61.2 kg (135 lb), SpO2 96%. Body mass index is 25.51 kg/m . HEENT: Normal cephalic, ataumatic, pupils are equally round, sclera are anicteric, mucous membranesare moist, oropharynx is clear. Neck has no masses, asymmetry or lymphadenopathy. Respiratory: Clear to auscultation and percussion. Normal respiratory excursion and pattern. Cardiac: Examination is regular rate and rhythm. Normal S1/S2 Abdominal exam: Soft, nontender, with no palpable masses. No hepatosplenomegaly. No palpable hernias. Extremities: no clubbing, cyanosis or edema. No adenopathy. LABORATORY VALUES: As Noted RADIOLOGIC STUDIES: As Noted Assessment IMPRESSION: LLQ pain, BRBPR, coughing up blood, dysphagia PLAN: I have reviewed my findings with the surgeon. Will plan for upper and lower endoscopy. We discussed the risks and benefits of the planned endoscopy in terms understandable to the patient. I have informed the patient that complications can occur including failure to complete the endoscopy and p erforation. Sri had the opportunity to ask questions concerning the planned endoscopy. Sri freelyconsents to surgery. I plan to use Golytely bowel preparation I have explained to the patient the difference between IV conscious sedation and MAC anesthesia - and I have offered either, according to the patient's wishes. I have explained that with IV conscioussedation there is no anesthesia provider available and therefore there is a limitation of the amount of IV medications that can be given and that the patient may wake up in the middle of the procedure and/or experience pain/discomfort during the procedure. Further discussion was done and the patient was given the opportunity to ask questions and all questions were answered. MAC anesthesia- allergy to benadryl & morphine. Sri was counseled that if there are changes in his/her medical condition, to let the office know if surgery should proceed. If there are changes in patient's medical condition from time of this encounter to the day of the procedure that preclude anesthesia, patient may have procedure cancelled forpatient's safety. Diagnoses: (R10.32) Left lower quadrant abdominal pain (primary encounter diagnosis) (Z12.11) Screening for colon cancer (K62.5) BRBPR (bright red blood per rectum) (R04.2) Coughing up blood (R13.10) Dysphagia, unspecified type Consultation requested by Iveth Hernandez for an opinion regarding screen for colon cancer. My finalrecommendations will be communicated back to the requesting physician by way of shared Medical record or letter to requesting physician via US mail. Portions of this documentation were copied and pasted from previous office visit notes in order to provide a cohesive continuity of the history. The note has been reviewed and edited and updated as necessary. Zhanna Shah APRN.CNP documented in this encounterOhiohealth [facility]04-30-2025 NoteMer[facility]04-30-[facility] Telephone encounter Note* Telephone Encounter - Veronika Guallpa MA - 12/07/2024 9:10 AM EDT Pt. Lm on stating she needs diagnostic mammogram ordered. Please advise. Veronika Guallpa MA [facility]04-30-2025 Miscellaneous Notes* Telephone Encounter - Veronika Guallap MA - 12/07/2024 9:10 AM EDT Pt. Lm on vm stating she needs diagnostic mammogram ordered. Please advise. Veronika Guallpa MA documented in this encounterOhiohealth Dublin [facility]04-29-2025 Instructions* Patient Instructions* Iveth Hernandez APRN.CNP - 12/06/2024 2:15 PM EDT Pneumonia vaccine Shingles vaccine [facility] [address] [place] [address] Appointment: [phone] Desk: [phone] documented in this encounterOhiohealth Dublin [facility] Hospital04-29-2025 NoteHNO ID: [id number] Author: IVETH HERNANDEZ APRN.CNP Service: ? Author Type: Nurse Practitioner Type: Progress Notes Filed: 12/08/2024 13:16 Note Text: [facility] Iveth Hernandez APRN-SPOOL TENDER [address] [place] [address] Dept Dept. Visit Date: December 06, 2024 Ms.Tina Alise Chacon Date of : 1975 MRN/E #: [id number] Chief Complaint: Patient presents with: Establish Care History of Present Illness Sri is a 49-year-old female with a history of epilepsy, chronic migraines, and hypothyroidism, presenting for an initial visit and evaluation of abdominal pain. I reviewed past medical, surgical, social, and family histories today and updated chart. Allergies, chronic medications, and supplements were also reviewed. Recording using [employer] software for draft documentation of the visit was discussed with the patient/authorized videotape sales representative; all questions welcomed and answered. Patient/authorized videotape sales representative agreed to proceed Abdominal Pain: - Persistent abdominal pain described as a twisting and stabbing sensation, x years. - Pain is constant, worsens after eating and drinking. - Denies acid reflux or positional relief. - Occasional nausea; denies severe constipation. - No relief from [id number] medications. Chronic Migraines: - Chronic migraines since age 15, occurring all day and all night. - Currently taking Qulipta without relief. - Followed by Dr. Bean for migraine management. Epilepsy: - Managed by Dr. Acosta. - Recent seizures characterized by convulsions and staring episodes, lasting approximately 10 minutes. - Experiences confusion and emotional distress post-seizure. - Currently on Lamictal 100 mg BID. Hypothyroidism: - Last TSH checked in June was elevated at 7.3. - Followed by Dr. Griffiths, with labs ordered to be redone in July. Depression: - Managed with Lamictal, Remeron, and Prozac. - Last seen by psychiatry at [facility]. Liver Enzyme Elevation: - Recent labs from September showed elevated alkaline phosphatase. - Other liver enzymes (AST, ALT, bilirubin) were normal. 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 - Underwent three surgeries (April 07, June 30, and September 30). - Currently in physical therapy without significant improvement. - Scheduled to see a specialist in [place] for further evaluation. PAST MEDICAL HISTORY Diagnosis Date Calculus of kidney 07/03/2006 Calculus of ureter 03/16/2008 Convulsions (HCC) 02/01/2013 Depression Essential hypertension 01/01/2018 Gallstone 12/25/2017 Hydronephrosis 03/16/2008 Hypothyroidism IBS (irritable bowel syndrome) Lactose intolerance in adult 01/21/2018 Migraine 02/01/2013 Nonrheumatic mitral (valve) prolapse 06/15/2017 Seizure disorder (HCC) last 04/2021 Traumatic brain injury ([facility]) Unspecified asthma(493.90) Unspecified ectopic without intrauterine (HCC) Ectopic PAST SURGICAL HISTORY Procedure Laterality Date ARTHROSCOPY KNEE DIAGNOSTIC W/WO SYNOVIAL BX SPX Left 06/30/2024 Dr. Mccracken ARTHROSCOPY KNEE W/MENISCUS RPR MEDIAL/LATERAL Left 04/07/2024 Left knee arthroscopy medial meniscus root/posterior horn repair CYSTOSCOPY,URETEROSCOPY,LITHOTRIPSY DILATION AND CURETTAGE DXAND/THER NONOBSTETRIC 1995 [...] Social History Tobacco Use Smoking status: Never Passive exposure: Never Smokeless tobacco: Never Vaping Use Vaping status: Never Used Substance Use Topics Alcohol use: Yes Comment: rare Drug use: Never Social History Social History Narrative Not on file Family History Reviewed Including Cardiac Diseases, Psychiatric Diseases, AND Substance Abuse Problem: Arthritis Relation: Mother Age of Onset: (Not Specified) Problem: Cataract Relation: Mother Age of Onset: (Not Specified) Problem: other (pacemaker, defibrillator) Relation: Mother Age of Onset: (Not Specified) Problem: other (mitral valve) Relation: Father Age of Onset: (Not Specified) Problem: Cataract Relation: Maternal Grandmother Age of Onset: (Not Specified) Problem: Difficulty with anesthesia Relation: No Family History Age of Onset: (Not Specified) Problem: Thyroid Relation: No Family History Age of Onset: (Not Specified) ALLERGIES Allergen Reactions Codeine Hives, Swelling swelling-airway/face Morphine Swelling (more content not included)...[facility] 12-06-2024 History of Present illness Narrative* Iveth Hernandez APRN.SPOOL TENDER - 12/06/2024 1:53 PM EDT [facility] Iveth Hernandez CASINO GAMING INSPECTOR-SPOOL TENDER [address] [place] [address] Dept Dept. Visit Date: December 06, 2024 Ms.Tina Alise Chacon Date of : 1975 MRN/E #: [id number] Chief Complaint: Patient presents with: Establish Care History of Present Illness Sri is a 49-year-old female with a history of epilepsy, chronic migraines, and hypothyroidism, presenting for an initial visit and evaluation of abdominal pain. I reviewed past medical, surgical, social, and family histories today and updated chart. Allergies, chronic medications, and supplements were also reviewed. Recording using [employer] software for draft documentation of the visit was discussed with the patient/authorized videotape sales representative; all questions welcomed and answered. Patient/authorized videotape sales representative agreed to proceed Abdominal Pain: - Persistent abdominal pain described as a twisting and stabbing sensation, x years. - Pain is constant, worsens after eating and drinking. - Denies acid reflux or positional relief. - Occasional nausea; denies severe constipation. - No relief from [id number] medications. Chronic Migraines: - Chronic migraines since age 15, occurring all day and all night. - Currently taking Qulipta without relief. - Followed by Dr. Bean for migraine management. Epilepsy: - Managed by Dr. Acosta. - Recent seizures characterized by convulsions and staring episodes, lasting approximately 10 minutes. - Experiences confusion and emotional distress post-seizure. - Currently on Lamictal 100 mg BID. Hypothyroidism: - Last TSH checked in June was elevated at 7.3. - Followed by Dr. Griffiths, with labs ordered to be redone in July. Depression: - Managed with Lamictal, Remeron, and Prozac. - Last seen by psychiatry at [facility]. Liver Enzyme Elevation: - Recent labs from September showed elevated alkaline phosphatase. - Other liver enzymes (AST, ALT, bilirubin) were normal. 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 - Underwent three surgeries (April 07, June 30, and September 30). - Currently in physical therapy without significant improvement. - Scheduled to see a specialist in [place] for further evaluation. PAST MEDICAL HISTORY Diagnosis Date Calculus of kidney 07/03/2006 Calculus of ureter 03/16/2008 Convulsions (HCC) 02/01/2013 Depression Essential hypertension 01/01/2018 Gallstone 12/25/2017 Hydronephrosis 03/16/2008 Hypothyroidism IBS (irritable bowel syndrome) Lactose intolerance in adult 01/21/2018 Migraine 02/01/2013 Nonrheumatic mitral (valve) prolapse 06/15/2017 Seizure disorder (HCC) last 04/2021 Traumatic brain injury (HCC) Unspecified asthma(493.90) Unspecified ectopic without intrauterine (HCC) Ectopic PAST SURGICAL HISTORY Procedure Laterality Date ARTHROSCOPY KNEE DIAGNOSTIC W/WO SYNOVIAL BX SPX Left 06/30/2024 Dr. Mccracken ARTHROSCOPY KNEE W/MENISCUS RPR MEDIAL/LATERAL Left 04/07/2024 Left knee arthroscopy medial meniscus root/posterior horn repair CYSTOSCOPY,URETEROSCOPY,LITHOTRIPSY DILATION & CURETTAGE DX&/THER NONOBSTETRIC 1995 [...] Social History Tobacco Use Smoking status: Never Passive exposure: Never Smokeless tobacco: Never Vaping Use Vaping status: Never Used Substance Use Topics Alcohol use: Yes Comment: rare Drug use: Never Social History Social History Narrative Not on file Family History Reviewed Including Cardiac Diseases, Psychiatric Diseases, & Substance Abuse Problem: Arthritis Relation: Mother Age of Onset: (Not Specified) Problem: Cataract Relation: Mother Age of Onset: (Not Specified) Problem: other (pacemaker, defibrillator) Relation: Mother Age of Onset: (Not Specified) Problem: other (mitral valve) Relation: Father Age of Onset: (Not Specified) Problem: Cataract Relation: Maternal Grandmother Age of Onset: (Not Specified) Problem: Difficulty with anesthesia Relation: No Family History Age of Onset: (Not Specified) Problem: Thyroid Relation: No Family History Age of Onset: (Not Specified) ALLERGIES Allergen Reactions Codeine Hives, Swelling swelling-airway/face Morphine Swelling Penicillin G Hives, Swelling Shellfish Derived Anaphylaxis Benadryl [Diphenhyd* Mental Status Change Phenergan [Prometha* Mental Status Change Aspirin Rash Current Outpatient Medications Medication Sig Syringe with Needle, Disp, 3 mL 23 x 1 1 Each as directed. lamoTRIgine (LAMICTAL) 100 mg tablet Take 1 tablet by mouth two times a day. To start on or after 08/10/2024, after completing titration schedule. atogepant (QULIPTA) 60 mg tablet Take 1 tablet (60 mg) by mouth once daily. FLUoxetine (PROZAC) 40 mg capsule Take 1 capsule by mouth once daily. ergocalciferol 50,000 unit capsule (VITAMIN D2, DRISDOL) Take 1 capsule by mouth one time a week. levothyroxine (SYNTHROID) 75 mcg tablet Take 1 tablet by mouth daily before breakfast. Mirtazapine (REMERON) 7.5 mg tablet Take 1 tablet by mouth daily at bedtime. pantoprazole DR (PROTONIX) 20 mg tablet Take 1 tablet by mouth daily before breakfast. No current facility-administered medications for this visit. Review of Systems Review of Systems Neurological: (+) migraines, (+) seizures, (+) confusion Gastrointestinal: (+) abdominal pain, (+) nausea, (+) decreased appetite, (-) acid reflux Vital Signs BP 120/74 Pulse 76 Temp (Src) 98.2 (Oral) Resp 18 SpO2 98% Physical Exam GENERAL: NAD, alert and oriented. SKIN: Unremarkable, no rash or skin lesions. HEAD: Normocephalic. EYES: PERRLA, EOMI, conjunctiva clear. EARS: External ears normal, canals clear, TM's normal. NOSE/SINUSES: Nares normal. Septum midline. OROPHARYNX: Lips, mucosa, and tongue normal, good dentition. No oral lesions noted. NECK: Supple, no lymphadenopathy, normal thyroid, no carotid bruits. LUNGS: Clear to auscultation bilaterally, no wheezes/rhonchi/rales. HEART: Regular rate and rhythm, no murmurs. No ectopy. ABDOMEN: Soft, non-tender, non-distended. Bowel sounds normal. EXTREMITIES: Left knee in immobilizer NEURO: Awake, alert and oriented x3, cranial nerves II-XII grossly intact, using crutches with walking Visit Diagnoses (Z00.00) Well adult exam (primary encounter diagnosis) (R74.8) Elevated alkaline phosphatase level (M25.562, G89.29) Chronic pain of left knee (G43.009) Migraine without aura and without status migrainosus, not intractable (R56.9) Seizure-like activity (HCC) (I10) Essential hypertension (J45.20) Mild intermittent asthma without complication (HCC) (E03.9) Hypothyroidism, unspecified type (F32.A) Depression, unspecified depression type (F39) Mood disorder (R10.84) Generalized abdominal pain (Z12.31) Encounter for screening mammogram for breast cancer (R92.8) Abnormal mammogram of right breast (Z11.59) Special screening examination for viral disease (Z13.220) Screening for lipid disorders (Z12.11) Screening for colon cancer (E55.9) Vitamin D deficiency Assessment and Plan 1. Well adult exam (Z00.00) - Conducted comprehensive physical examination. - Ordered mammogram. - Discussed and ordered hepatitis C and HIV screenings. - Scheduled follow-up in 3 months. 2. Elevated alkaline phosphatase level (R74.8) - Previous labs from September showed elevated alkaline phosphatase. - Ordered repeat metabolic panel and GGT to differentiate between hepatic and bone origin. 3. Chronic pain of left knee (M25.562) - History of three surgeries on left knee; physical therapy not effective. - Planning to consult a specialist in [place] for further evaluation and potential fourth surgery. 4. Migraine without aura and without status migrainosus, not intractable (G43.009) - Chronic migraines since age 15, persistent day and night. - Currently on Ubrelvy and Qulipta, with reported ineffectiveness. - Follow-up with Dr. Bean, neurologist specializing in chronic migraines, scheduled later this summer. 5. Seizure-like activity (HCC) (R56.9) - Currently on Lamictal 100 mg BID. - Recent seizures characterized by convulsions and altered mental status, lasting approximately 10 minutes. - Unable to drive due to seizure activity. - Follow-up with Dr. Acosta, neurologist specializing in epilepsy, scheduled later this summer. 6. Essential hypertension (I10) - Blood pressure within normal limits during examination. - Continue current management. 7. Mild intermittent asthma without complication (HCC) (J45.20) - History of asthma; discussed eligibility for pneumonia vaccine. 8. Hypothyroidism, unspecified type (E03.9) - Last TSH in June was elevated at 7.3. - Ordered repeat TSH to assess current thyroid function. 9. Depression, unspecified depression type (F32.A) 10. Mood disorder (F39) - Currently on Lamictal 100 mg BID, Remeron at bedtime, and Prozac. - Refilled Remeron prescription. - No recent follow-up with psychiatry. 11. Generalized abdominal pain (R10.84) - Persistent abdominal pain, described as cramping and stabbing, worsens after eating. - Ordered trial of Protonix once daily. - Referred to [facility] for further evaluation and potential endoscopy. 12. Encounter for screening mammogram for breast cancer (Z12.31) 13. Abnormal mammogram of right breast (R92.8) - Ordered screening mammogram. - Previous abnormal mammogram findings to be monitored. 14. Special screening examination for viral disease (Z11.59) - Ordered hepatitis C and HIV screenings. 15. Screening for lipid disorders (Z13.220) - Ordered fasting lipid panel. 16. Screening for colon cancer (Z12.11) - Discussed and referred to Dr. Candis Gamez for colonoscopy. 17. Vitamin D deficiency (E55.9) - Previously on high-dose vitamin D. - Ordered vitamin D level to assess current status. Discussed above plan with patient and is agreeable with above plan. Follow up visit Return in about 3 months (around 03/07/2025) for Thyroid problem. Iveth Hernandez APRN.SPOOL TENDER, signed on December 06, 2024 1:56 PM documented in [facility] Telephone encounter Note * Telephone Encounter - Juan Curz RN - 12/02/2024 12:[address] Bean recommended follow up appointment to discuss further interventions. Schedulers scheduled patient for follow up visit. [facility] Work Phone: [phone] Miscellaneous Notes* Telephone Encounter - Juan Cruz RN - 12/02/2024 12:[address] Bean recommended follow up appointment to discuss further interventions. Schedulers scheduled patient for follow up visit. * Telephone Encounter - Zeny Juarez - 12/01/2024 9:42 AM EDT Patient continues to have headaches 24/7, even after injections. Nothing is touching it. Wonders if she should have a brain scan done. Wonders what else can be done? Patient can be reached at [phone] documented in this encounterOhio[facility]04-24-2025 Telephone encounter Note * Telephone Encounter - Zeny Juarez - 12/01/2024 9:42 AM EDT Patient continues to have headaches 24/7, even after injections. Nothing is touching it. Wonders if she should have a brain scan done. Wonders what else can be done? Patient can be reached at [phone] [facility]03-19-2025 NoteHNO ID: [id number] Author: ANI RAJPUT APRN.CNP Service: ? Author Type: Nurse Practitioner Type: Procedures Filed: 10/26/2024 11:36 Note Text: [facility] Patient name: Sri Chacon Patient Date of : 1975 Today's Date: 10/26/2024 Provider performing procedure: Ani Rajput APRN.SPOOL TENDER Procedure: sphenopalatine block She is here today for her 1st SPB for the ongoing headaches. Injectate: A total of 1 cc of 4% lidocaine per nare Diagnosis (Indication for procedure): headache Comments: none HPI: Sri Chacon is an 49 year old FEMALE who presents today, in pain, for the procedure noted above. PAST MEDICAL HISTORY Diagnosis Date Calculus of kidney 07/03/2006 Calculus of ureter 03/16/2008 Convulsions (HCC) 02/01/2013 Depression Essential hypertension 01/01/2018 Gallstone 12/25/2017 Hydronephrosis 03/16/2008 Hypothyroidism IBS (irritable bowel syndrome) Lactose intolerance in adult 01/21/2018 Migraine 02/01/2013 Nonrheumatic mitral (valve) prolapse 06/15/2017 Seizure disorder (HCC) last 04/2021 Traumatic brain injury ([facility]) Unspecified asthma(493.90) Unspecified ectopic without intrauterine Ectopic PAST SURGICAL HISTORY Procedure Laterality Date ARTHROSCOPY KNEE DIAGNOSTIC W/WO SYNOVIAL BX SPX Left 06/30/2024 Dr. Mccracken ARTHROSCOPY KNEE W/MENISCUS RPR MEDIAL/LATERAL Left 04/07/2024 Left knee arthroscopy medial meniscus root/posterior horn repair CYSTOSCOPY,URETEROSCOPY,LITHOTRIPSY DILATION AND CURETTAGE DXAND/THER NONOBSTETRIC 1995 [...] other (mitral valve) Father Cataract Maternal Grandmother Difficulty with anesthesia No Family History Thyroid No Family History Social History Tobacco Use Smoking status: Never Passive exposure: Never Smokeless tobacco: Never Vaping Use Vaping status: Never Used Substance Use Topics Alcohol use: Yes Comment: rare Drug use: No Current Outpatient Medications on File Prior to Visit Medication Sig Syringe with Needle, Disp, 3 mL 23 x 1 1 Each as directed. lamoTRIgine (LAMICTAL) 100 mg tablet Take 1 tablet by mouth two times a day. To start on or after 08/10/2024, after completing titration schedule. atogepant (QULIPTA) 60 mg tablet Take 1 tablet (60 mg) by mouth once daily. FLUoxetine (PROZAC) 40 mg capsule Take 1 capsule by mouth once daily. Mirtazapine (REMERON) 7.5 mg tablet Take 1 tablet by mouth daily at bedtime. ergocalciferol 50,000 unit capsule (VITAMIN D2, DRISDOL) Take 1 capsule by mouth one time a week. levothyroxine (SYNTHROID) 75 mcg tablet Take 1 tablet by mouth daily before breakfast. No current facility-administered medications on file prior to visit. ALLERGIES Allergen Reactions Codeine Hives, Swelling swelling-airway/face Morphine Swelling Penicillin G Hives, Swelling Shellfish Derived Anaphylaxis Benadryl [Diphenhyd* Mental Status Change Phenergan [Prometha* Mental Status Change Aspirin Rash Data Reviewed: Current Medications, Past Medical History, Past Surgical History, Family History, Social History and Review of Systems: On Today's date, noted in the attribution, I have confirmed and edited as necessary, the PFSH and ROS obtained by others. Objective Exam: Vitals: As per nursing documentation Constitutional: Normal Appearance, Oriented to Time, Place and Person Head: No lacerations, no external signs of trauma Eyes: Conjunctiva clear. No discharge from the eyes Cardiovascular: Appears well-perfused Pulmonary: Non-labored respirations Abdominal: Non-distended Skin: No visible rashes or ecchymosis Psychiatric: Mood appropriate for given condition Neurological: Gross movements are limited by pain, but otherwise unremarkable Assessment and Plan: -repeat SPB as needed pending outcome of the SPB done today [facility] protocol documentation / Pre-Procedure Checklist: done at 1129 Consent: Obtained verbally prior to procedure I had a nice discussion with the patient today about their current pain and the pathology that could be causing it We discussed different treatment options, including risks, benefits and alternatives. We agreed to proceed as previously discussed, or the plan was modified in accordance with the comments noted above Patient identifiers, including name and date of , were confirmed After dis (more content not included)...[facility]03-19-2025 Procedure note* Ani Rajput APRN.SPOOL TENDER - 10/26/2024 11:30 AM EDT Procedure(s): SPHENOPALATINE GANGLION BLOCK Pre-Procedure Diagnose(s): Chronic migraine without aura, with intractable migraine, so stated, with status migrainosus Post-Procedure Diagnose(s): Chronic migraine without aura, with intractable migraine, so stated, with status migrainosus [facility] Patient name: Sri Chacon Patient Date of : 1975 Today's Date: 10/26/2024 Provider performing procedure: Ani Rajput APRN.SPOOL TENDER Procedure: sphenopalatine block She is here today for her 1st SPB for the ongoing headaches. Injectate: A total of 1 cc of 4% lidocaine per nare Diagnosis (Indication for procedure): headache Comments: none HPI: Sri Chacon is an 49 year old FEMALE who presents today, in pain, for the procedure noted above. PAST MEDICAL HISTORY Diagnosis Date Calculus of kidney 07/03/2006 Calculus of ureter 03/16/2008 Convulsions (HCC) 02/01/2013 Depression Essential hypertension 01/01/2018 Gallstone 12/25/2017 Hydronephrosis 03/16/2008 Hypothyroidism IBS (irritable bowel syndrome) Lactose intolerance in adult 01/21/2018 Migraine 02/01/2013 Nonrheumatic mitral (valve) prolapse 06/15/2017 Seizure disorder (HCC) last 04/2021 Traumatic brain injury (HCC) Unspecified asthma(493.90) Unspecified ectopic without intrauterine Ectopic PAST SURGICAL HISTORY Procedure Laterality Date ARTHROSCOPY KNEE DIAGNOSTIC W/WO SYNOVIAL BX SPX Left 06/30/2024 Dr. Mccracken ARTHROSCOPY KNEE W/MENISCUS RPR MEDIAL/LATERAL Left 04/07/2024 Left knee arthroscopy medial meniscus root/posterior horn repair CYSTOSCOPY,URETEROSCOPY,LITHOTRIPSY DILATION & CURETTAGE DX&/THER NONOBSTETRIC 1996 Dilation & curettage PAST SURGICAL HISTORY OF 1999 C section PAST SURGICAL HISTORY OF 2009 heart cath PAST SURGICAL HISTORY OF 1991 right knee surgery with muscle and scar tissue removal post fx PAST SURGICAL HISTORY OF Right hand marley Dr. Ngueyn PAST SURGICAL HISTORY OF Right 2020 right thumb [facility] arthroplasty TOTAL ABDOMINAL HYSTERECT W/WO RMVL TUBE OVARY 01/2005 Hysterectomy, [facility] FAMILY HISTORY Problem Relation Age of Onset Arthritis Mother Cataract Mother other (pacemaker, defibrillator) Mother other (mitral valve) Father Cataract Maternal Grandmother Difficulty with anesthesia No Family History Thyroid No Family History Social History Tobacco Use Smoking status: Never Passive exposure: Never Smokeless tobacco: Never Vaping Use Vaping status: Never Used Substance Use Topics Alcohol use: Yes Comment: rare Drug use: No Current Outpatient Medications on File Prior to Visit Medication Sig Syringe with Needle, Disp, 3 mL 23 x 1 1 Each as directed. lamoTRIgine (LAMICTAL) 100 mg tablet Take 1 tablet by mouth two times a day. To start on or after 08/10/2024, after completing titration schedule. atogepant (QULIPTA) 60 mg tablet Take 1 tablet (60 mg) by mouth once daily. FLUoxetine (PROZAC) 40 mg capsule Take 1 capsule by mouth once daily. Mirtazapine (REMERON) 7.5 mg tablet Take 1 tablet by mouth daily at bedtime. ergocalciferol 50,000 unit capsule (VITAMIN D2, DRISDOL) Take 1 capsule by mouth one time a week. levothyroxine (SYNTHROID) 75 mcg tablet Take 1 tablet by mouth daily before breakfast. No current facility-administered medications on file prior to visit. ALLERGIES Allergen Reactions Codeine Hives, Swelling swelling-airway/face Morphine Swelling Penicillin G Hives, Swelling Shellfish Derived Anaphylaxis Benadryl [Diphenhyd* Mental Status Change Phenergan [Prometha* Mental Status Change Aspirin Rash Data Reviewed: Current Medications, Past Medical History, Past Surgical History, Family History, Social History and Review of Systems: On Today's date, noted in the attribution, I have confirmed and edited as necessary, the PFSH and ROS obtained by others. Objective Exam: Vitals: As per nursing documentation Constitutional: Normal Appearance, Oriented to Time, Place and Person Head: No lacerations, no external signs of trauma Eyes: Conjunctiva clear. No discharge from the eyes Cardiovascular: Appears well-perfused Pulmonary: Non-labored respirations Abdominal: Non-distended Skin: No visible rashes or ecchymosis Psychiatric: Mood appropriate for given condition Neurological: Gross movements are limited by pain, but otherwise unremarkable Assessment and Plan: -repeat SPB as needed pending outcome of the SPB done today [facility] protocol documentation / Pre-Procedure Checklist: done at 1129 Consent: Obtained verbally prior to procedure I had a nice discussion with the patient today about their current pain and the pathology that could be causing it We discussed different treatment options, including risks, benefits and alternatives. We agreed to proceed as previously discussed, or the plan was modified in accordance with the comments noted above Patient identifiers, including name and date of , were confirmed After discussing risks and benefits, reviewing patient's allergy list to ensure all medications being given are tolerated to the best of our known information, the in-office procedure of sphenopalatine Injections was performed at the locations noted below. With the patient in supine position, the nares were anesthetized with a 2% lidocaine gel on a cotton tipped applicator. Once adequate anesthesia was obtained, the sphenocath was advanced along the superior medial aspect of the left nares until resistance was met. The catheter was withdrawn slightlyand then the inner catheter was deployed. The patient was then asked to inhale and the 1mL of 4% lidocaine was injected. The procedure was repeated on the right side. The patient was then asked to lie flat for 10 minutes then was discharged in good condition. The patient was noted to have tolerated the procedure well and was discharged after an appropriate period of post-procedure observation. The patient was instructed to contact us if there were any complications. The patient was advised to follow-up with the requesting physician within one to two weeks or as per their requested follow-up plan. Post procedure visit summary with written instructions was offered to the patient. Time Started 1133 Time Ended 1137 ASSESSMENT/PLAN: 1. Intractable chronic migraine without aura and with status migrainosus - ICD9: 346.73, ICD10: G43.711 SPB #1 - SPHENOPALATINE GANGLION BLOCK - LIDOCAINE 2 % MUCOSAL JELLY IN APPLICATOR - LIDOCAINE HCL 4 % (40 MG/ML) MUCOSAL SOLUTION Ani Rajput APRN.GEMMA Rajput APRN.GEMMA Pain Management [facility]03-19-2025 Procedure note* Ani Rajput APRN.SPOOL TENDER - 10/26/2024 11:30 AM EDTProcedure(s): SPHENOPALATINE GANGLION BLOCK Pre-Procedure Diagnose(s): Chronic migraine without aura, with intractable migraine, so stated, with status migrainosus Post-Procedure Diagnose(s): Chronic migraine without aura, with intractable migraine, so stated, with status migrainosus [facility] Patient name: Sri Chacon Patient Date of : 1975 Today's Date: 10/26/2024 Provider performing procedure: Ani Rajput APRN.SPOOL TENDER Procedure: sphenopalatine block She is here today for her 1st SPB for the ongoing headaches. Injectate: A total of 1 cc of 4% lidocaine per nare Diagnosis (Indication for procedure): headache Comments: none HPI: Sri Chacon is an 49 year old FEMALE who presents today, in pain, for the procedure noted above. PAST MEDICAL HISTORY Diagnosis Date Calculus of kidney 07/03/2006 Calculus of ureter 03/16/2008 Convulsions (HCC) 02/01/2013 Depression Essential hypertension 01/01/2018 Gallstone 12/25/2017 Hydronephrosis 03/16/2008 Hypothyroidism IBS (irritable bowel syndrome) Lactose intolerance in adult 01/21/2018 Migraine 02/01/2013 Nonrheumatic mitral (valve) prolapse 06/15/2017 Seizure disorder (HCC) last 04/2021 Traumatic brain injury (HCC) Unspecified asthma(493.90) Unspecified ectopic without intrauterine Ectopic PAST SURGICAL HISTORY Procedure Laterality Date ARTHROSCOPY KNEE DIAGNOSTIC W/WO SYNOVIAL BX SPX Left 06/30/2024 Dr. Mccracken ARTHROSCOPY KNEE W/MENISCUS RPR MEDIAL/LATERAL Left 04/07/2024 Left knee arthroscopy medial meniscus root/posterior horn repair CYSTOSCOPY,URETEROSCOPY,LITHOTRIPSY DILATION & CURETTAGE DX&/THER NONOBSTETRIC 1995 [...] other (mitral valve) Father Cataract Maternal Grandmother Difficulty with anesthesia No Family History Thyroid No Family History Social History Tobacco Use Smoking status: Never Passive exposure: Never Smokeless tobacco: Never Vaping Use Vaping status: Never Used Substance Use Topics Alcohol use: Yes Comment: rare Drug use: No Current Outpatient Medications on File Prior to Visit Medication Sig Syringe with Needle, Disp, 3 mL 23 x 1 1 Each as directed. lamoTRIgine (LAMICTAL) 100 mg tablet Take 1 tablet by mouth two times a day. To start on or after 08/10/2024, after completing titration schedule. atogepant (QULIPTA) 60 mg tablet Take 1 tablet (60 mg) by mouth once daily. FLUoxetine (PROZAC) 40 mg capsule Take 1 capsule by mouth once daily. Mirtazapine (REMERON) 7.5 mg tablet Take 1 tablet by mouth daily at bedtime. ergocalciferol 50,000 unit capsule (VITAMIN D2, DRISDOL) Take 1 capsule by mouth one time a week. levothyroxine (SYNTHROID) 75 mcg tablet Take 1 tablet by mouth daily before breakfast. No current facility-administered medications on file prior to visit. ALLERGIES Allergen Reactions Codeine Hives, Swelling swelling-airway/face Morphine Swelling Penicillin G Hives, Swelling Shellfish Derived Anaphylaxis Benadryl [Diphenhyd* Mental Status Change Phenergan [Prometha* Mental Status Change Aspirin Rash Data Reviewed: Current Medications, Past Medical History, Past Surgical History, Family History, Social History and Review of Systems: On Today's date, noted in the attribution, I have confirmed and edited as necessary, the PFSH and ROS obtained by others. Objective Exam: Vitals: As per nursing documentation Constitutional: Normal Appearance, Oriented to Time, Place and Person Head: No lacerations, no external signs of trauma Eyes: Conjunctiva clear. No discharge from the eyes Cardiovascular: Appears well-perfused Pulmonary: Non-labored respirations Abdominal: Non-distended Skin: No visible rashes or ecchymosis Psychiatric: Mood appropriate for given condition Neurological: Gross movements are limited by pain, but otherwise unremarkable Assessment and Plan: -repeat SPB as needed pending outcome of the SPB done today [place] protocol documentation / Pre-Procedure Checklist: done at 1129 Consent: Obtained verbally prior to procedure I had a nice discussion with the patient today about their current pain and the pathology that could be causing it We discussed different treatment options, including risks, benefits and alternatives. We agreed to proceed as previously discussed, or the plan was modified in accordance with the comments noted above Patient identifiers, including name and date of , were confirmed After discussing risks and benefits, reviewing patient's allergy list to ensure all medications being given are tolerated to the best of our known information, the in-office procedure of sphenopalatine Injections was performed at the locations noted below. With the patient in supine position, the nares were anesthetized with a 2% lidocaine gel on a cotton tipped applicator. Once adequate anesthesia was obtained, the sphenocath was advanced along the superior medial aspect of the left nares until resistance was met. The catheter was withdrawn slightlyand then the inner catheter was deployed. The patient was then asked to inhale and the 1mL of 4% lidocaine was injected. The procedure was repeated on the right side. The patient was then asked to lie flat for 10 minutes then was discharged in good condition. The patient was noted to have tolerated the procedure well and was discharged after an appropriate period of post-procedure observation. The patient was instructed to contact us if there were any complications. The patient was advised to follow-up with the requesting physician within one to two weeks or as per their requested follow-up plan. Post procedure visit summary with written instructions was offered to the patient. Time Started 1133 Time Ended 1137 ASSESSMENT/PLAN: 1. Intractable chronic migraine without aura and with status migrainosus - ICD9: 346.73, ICD10: G43.711 SPB #1 - SPHENOPALATINE GANGLION BLOCK - LIDOCAINE 2 % MUCOSAL JELLY IN APPLICATOR - LIDOCAINE HCL 4 % (40 MG/ML) MUCOSAL SOLUTION Ani Rajput APRN.GEMMA Rajput APRN.GEMMA Pain Management [facility] documented in this encounterOhio[facility]25 Instructions* Patient Instructions* Ani Rajput APRN.CNP - 10/26/2024 11:16 AM EDT No food or drink for 30-60 minutes following today's procedure or until throat no longer numb Ice and heat as tolerated Activity as tolerated documented in this encounterOhiohealth Dublin [facility] Hospital03-19-2025 NoteHNO ID: [id number] Author: CHANELL HERNANDEZ LPN Service: ? Author Type: LICENSED NURSE Type: Progress Notes Filed: 10/26/2024 11:36 Note Text: Review of Systems Constitutional: Positive for activity change. Negative for chills, fever and unexpected weight change. Gastrointestinal: Negative for bowel retention or incontinence Genitourinary: Negative for difficulty urinating. Negative for bladder retention or incontinence Musculoskeletal: Positive for arthralgias, back pain, gait problem, joint swelling, myalgias, neck pain and neck stiffness. Neurological: Positive for weakness, numbness and headaches. Psychiatric/Behavioral: Positive for dysphoric mood and sleep disturbance. Negative for suicidal ideas. The patient is nervous/anxious.[facility]03-19-2025 History of Present illness Narrative* Chanell Hernandez LPN - 10/26/2024 11:14 AM EDT Review of Systems Constitutional: Positive for activity change. Negative for chills, fever and unexpected weight change. Gastrointestinal: Negative for bowel retention or incontinence Genitourinary: Negative for difficulty urinating. Negative for bladder retention or incontinence Musculoskeletal: Positive for arthralgias, back pain, gait problem, joint swelling, myalgias, neck pain and neck stiffness. Neurological: Positive for weakness, numbness and headaches. Psychiatric/Behavioral: Positive for dysphoric mood and sleep disturbance. Negative for suicidal ideas. The patient is nervous/anxious. documented in this encounterOhiohealth Dublin [facility]03-13-2025 NoteMer[facility] History of Present illness Narrative* Ronnie Pettit, PT - 10/20/2024 2:08 PM EDT Episode Visit Count: 4 Therapist That Will Accept/Oversee The Plan Of Care: Ronnie Pettit PT. Start of Care Date: 10/05/24 Onset Date: 09/19/23 Plan of Care Certification Date: 10/05/24 Next Certification Due Date: 11/16/24 Patient Identified by Name and Date of : Yes REHABILITATION AND SPORTS THERAPY PHYSICAL THERAPY TREATMENT NOTE ASSESSMENT: Sri Chacon tolerated the session with expected muscle soreness. She demonstrated decreases in L Knee EXT range of motion following passive stretching. The patient will continue to benefit from ongoing skilled physical therapy to progress toward set goals and to continue with post-operative protocol. PLAN FOR NEXT VISIT: Push L Knee Ext A/AA/PROM. SUBJECTIVE: 16 days post-op. States appt with surgeon did not go that well. States L Knee still does not want to stay straight. Reports having a pain mgmt appointment in December. Pain: Pain Pain Level: 10 Pain Location: Knee - Left Description: Aching Post Treatment Pain Post Treatment Pain Level: No Change Post Treatment Pain Location: Knee - Left OBJECTIVE MEASURES WITH LEVEL OF FUNCTION: LE AROM L Knee Extension: -4 Degrees (Ankle Propped. Following Passive Stretching.) LE PROM L Knee Extension: 0 Degrees L Knee Flexion: 85 Degrees (Seated; Very Guarded.) LE Strength L LE Strength: Significant Quad Lag with SLR. TREATMENT: Therapeutic Exercise: 2: Supine L Knee Extension Stretch with Weight: 2x3Min, 5#. (Prop under heel.) 3: Prone L Knee Ext Hangs: 2x3Min, 3# cuff. 4: Supine L SLR: 3x6-8, no weight. 5: Supine L SAQ: 3x10. 6: Seated L Knee Ext with OP: 3x10, 5-sec. Skilled Intervention: Patient was educated in proper exercise technique and purpose for exercises. Skilled judgment was used in selection of appropriate interventions. Correct performance of therapeutic exercises was facilitated with verbal and tactile cuing. Billing Therapeutic Exercise Treatment Minutes: 40 Skilled Treatment Time Minutes (timed and untimed codes): 40 Total Session Time (minutes): 40 Session Start Time : 1415 Session Stop Time : 1455 Ronnie Pettit PT documented in this encounterOhiohealth Dublin [facility]03-13-2025 Telephone encounter Note * Telephone Encounter - Ling Simmons RN - 10/20/2024 12:48 PM EDT I sent her to pain management. Were deferring any further pain treatment to that team. Thanks, Irene Randolph DO [facility]03-13-2025 Miscellaneous Notes* Telephone Encounter - Ling Simmons RN - 10/20/2024 12:48 PM EDT I sent her to pain management. Were deferring any further pain treatment to that team. Thanks, Irene Randolph DO * Telephone Encounter - Liane High - 10/19/2024 4:07 PM EDT During scheduling, patient asked if Dr Randolph was going to be prescribing her any additional medication to help manage her pain. Patient is asking if something stronger than Tramadol can be prescribed Liane High documented in this encounterOhiohealth Dublin [facility]03-12-2025 Telephone encounter Note * Telephone Encounter - Liane High - 10/19/2024 4:07 PM EDT During scheduling, patient asked if Dr Randolph was going to be prescribing her any additional medication to help manage her pain. Patient is asking if something stronger than Tramadol can be prescribed Liane High [facility]03-12-2025 NoteMer[facility]03-12-2025 History of Present illness Narrative* EldaIrene stephens, DO - 10/19/2024 3:33 PM EDT Images from the original note were not included. Follow Up Visit Chief Complaint Sri Chacon is a 49 year old female who presents today for follow up office visit. Patient presents with: Left Knee - Knee Pain, Post Op History of Present Illness PAIN EVALUATION 10/19/2024 1104 Pain Level: 10 Pain Location: Knee-Left Description: Aching;Contraction;Cramping;Crushing;Cutting;Pressure;Pulsating;Radiating;Sharp; Shooting;Spasm;Stabbing;Throbbing Duration Units: Months Frequency: Continuous HPI: Sri Chacon is a 49 year old female for a follow up visit s/p Left knee evalution under anesthesia, manipulation under anesthesia, intraarticular knee injction on 10/04/2024. Patient states thatshe is in horrible pains. She is taking tramadol for the pain and getting no relief. Pain history is noted as above. Denies calf pain, numbness, tingling, fever, chills or other constitutional symptoms. Discussed that there was no block to motion in left leg after patient had anesthesia/ went to sleep. Patient today states knee still will not straighten, is in 10/10 pain and nothing is working. Is there any overall improvement in your condition? No Any new injury, since being seen last: No REVIEW OF SYMPTOMS: Patient did not have, and does not currently have, any weight loss, malaise, fever, chills, headache, chest pain, chest pressure, palpitations, cough, shortness of breath, orthopnea, paroxsymal nocturnal dyspnea, nausea, vomiting, diarrhea, constipation, melena, hematochezia, urinary difficulties, prolonged bleeding, easily bruising, heat or cold intolerance, new onset joint pain or swelling, newonset extremity weakness or numbness, new onset auditory or visual disturbances, lightheadedness, dizziness, partial loss of consciousness or full loss of consciousness. Current Outpatient Medications Medication Sig Syringe with Needle, Disp, 3 mL 23 x 1 1 Each as directed. lamoTRIgine (LAMICTAL) 100 mg tablet Take 1 tablet by mouth two times a day. To start on or after 08/10/2024, after completing titration schedule. atogepant (QULIPTA) 60 mg tablet Take 1 tablet (60 mg) by mouth once daily. FLUoxetine (PROZAC) 40 mg capsule Take 1 capsule by mouth once daily. Mirtazapine (REMERON) 7.5 mg tablet Take 1 tablet by mouth daily at bedtime. ergocalciferol 50,000 unit capsule (VITAMIN D2, DRISDOL) Take 1 capsule by mouth one time a week. levothyroxine (SYNTHROID) 75 mcg tablet Take 1 tablet by mouth daily before breakfast. No current facility-administered medications for this visit. Physical Exam Vitals: There were no vitals taken for this visit. Psych: Pleasant, good affect and mood General Appearance: Well appearing, alert, in no acute distress, well-hydrated, well nourished.. Skin: Skin color, texture, turgor normal, no suspicious rashes or lesions. Peripheral Pulses: Normal. Neurologic: Gait normal. Reflexes normal and symmetric. Sensation grossly intact.. Lymph Nodes: No cervical lymphadenopathy, No supraclavicular lymphadenopathy, No axillary lymphadenopathy., and No inguinal lymphadenopathy.. Respiratory: No recent pulmonary infection, hemoptysis, chronic cough, or shortness of breath at rest Rheumatologic: Joint deformities: left knee pain Right Knee Exam Right knee exam is normal. Muscle Strength The patient has normal right knee strength. Tenderness The patient is experiencing no tenderness. Range of Motion Extension: normal Flexion: normal Tests Kindra: Anterior - negative Posterior - negative Drawer: Anterior - negative Posterior - negative Other Erythema: absent Sensation: normal Pulse: present Swelling: none Left Knee Exam Tenderness The patient is experiencing tenderness in the medial joint line and lateral joint line. Range of Motion Extension: abnormal Flexion: abnormal Other Erythema: absent Scars: present Sensation: normal Pulse: present Swelling: none Comments: Neg homans bilaterally Assessment and Plan Radiographs: I have reviewed the images with the patient and family. Reviewed intra-op images of patient with fully straight and fully flexed knee while asleep prior toany manipulation/ evaluation Impression: Encounter Diagnosis ICD-10-CM 1. Chronic pain of left knee M25.562 [facility] TO [facility] G89.29 Today, in detail, through a thorough evaluation, we discussed possible etiologies of pain and our plans for further diagnostic and therapeutic interventions. We discussed strategies for decreasing pain and improving strength, stability and motion. Patient's questions were answered in detailed. Patient verbalizes understanding and agrees with the treatment plan as discussed. Pain management referral as nothing structural going on within knee during surgical evaluation under anesthesia Showed patient intra-op images to patient that she had full extension once she was asleep Discussed with PT that she has no mechanical blocks and should be able to proceed with full rom andis being sent to pain Patient aware and in agreement of plan. All questions answered. Irene Randolph D.O. M.P.H. documented in this encounterOhiohealth Dublin [facility]03-11-2025 NoteMer[facility]03-11-2025 History of Present illness Narrative* Ronnie Pettit, PT - 10/18/2024 2:36 PM EDT Episode Visit Count: 3 Therapist That Will Accept/Oversee The Plan Of Care: Ronnie Pettit, PT. Start of Care Date: 10/05/24 Onset Date: 09/19/23 Plan of Care Certification Date: 10/05/24 Next Certification Due Date: 11/16/24 Patient Identified by Name and Date of : Yes REHABILITATION AND SPORTS THERAPY PHYSICAL THERAPY TREATMENT NOTE ASSESSMENT: Sri Chacon tolerated the session with increased symptoms & expected muscle soreness. She demonstrated increased pain with seated knee flexion prom today. The patient will continue to benefit from ongoing skilled physical therapy to progress toward set goals and to continue with post- operative protocol. PLAN FOR NEXT VISIT: Assess how appointment went with Dr. Randolph. SUBJECTIVE: 2 Weeks status post last procedure; no change in pain; see's Dr. Randolph tomorrow. Only completes exercises 2x/a day 25% of the time. She was prescribed 3x a day. Today is only the 3rdtime seeing patient, was written plan for 3x/week, has had to cancel twice. States she was precribed Toradol and it does not help with pain. Pain: Pain Pain Level: 10 Pain Location: Knee - Left Description: Aching Post Treatment Pain Post Treatment Pain Level: Worse Post Treatment Pain Location: Knee - Left Post Treatment Pain Description: Aching OBJECTIVE MEASURES WITH LEVEL OF FUNCTION: Decreased WB on left lower extremity when arriving to session on B Crutches. Slight deviation to the right side/uninvolved. LE AROM L LE AROM: Knee Ext: Started at -10 with knee ext stretch with heel propped, therapist able to get to 0 deg with overpressure, -3 with patient ther-ex stretches. TREATMENT: Therapeutic Exercise: 2: Supine L Knee Extension Stretch with Weight: 2x3Min, 5#. (Prop under heel.) 4: Longsit L Quad Set, no prop: 3x10, 1-2sec holds. (VC/TC to try and get heel off table.) 5: Prone L Knee Ext Hangs: 2x3Min, 3# cuff. 6: Seated L Knee Ext with OP: 3x10, 5-sec. 7: *Re-discussed importance of HEP completion and adherance. Discussed needing to complete 2-3x a day more often. Skilled Intervention: Patient was educated in proper exercise technique and purpose for exercises. Skilled judgment was used in selection of appropriate interventions. Correct performance of therapeutic exercises was facilitated with verbal and tactile cuing. Manual Therapy: 1: PROM for L Knee Ext in supine heel propped: 3x10, 5-sec holds with increased therapist push. 2: PROM for L Knee Ext, heel under prop: Therapist OP/sustained holds: 3x1 Min. Able to achieve 0 deg. 3: PROM in Sitting, L Knee Ext/Flexion: 3x10. Skilled Intervention: Manual skills to improve joint mobility, ROM, and decrease pain. Utilized anatomy knowledge of the therapist, and assessment of patient's response to intervention. Billing Therapeutic Exercise Treatment Minutes: 25 Manual TherapyTreatment Minutes: 15 Skilled Treatment Time Minutes (timed and untimed codes): 40 Total Session Time (minutes): 40 Session Start Time : 1454 Session Stop Time : 1534 Ronnie Pettit PT documented in this encounterOhiohealth [facility]03-06-2025 Telephone encounter Note * Telephone Encounter - Ling Simmons RN - 10/13/2024 8:15 AM EST Spoke with patient and relayed message. Patient verbalized understanding. [facility]03-06-2025 Miscellaneous Notes* Telephone Encounter - Ling Simmons RN - 10/13/2024 8:15 AM EST Spoke with patient and relayed message. Patient verbalized understanding. * Telephone Encounter - Elizabeth Karimi PA-C - 10/12/2024 4:01 PM EST PDMP website checked and validated. All prescriptions have been APPROPRIATELY filled. No suspiciousactivity was identified. 10/12/2024 by Elizabeth Karimi PA-C The following approved medication requests have been transmitted electronically. Requested Prescriptions Signed Prescriptions Disp Refills traMADol (ULTRAM) 50 mg tablet 15 tablet 0 Sig: Take 1 tablet by mouth every 8 hours as needed for pain for up to 5 days. Authorizing Provider: ELIZABETH KARIMI PA-C * Telephone Encounter - Ling Simmons RN - 10/12/2024 8:50 AM EST Spoke with patient She is having pain and trouble sleeping and was asking if she could get something to help Has been taking OTC Tylenol and/or ibuprofen, they are not helping Please advise documented in this encounterOhiohealth [facility]03-05-2025 Telephone encounter Note * Telephone Encounter - Elizabeth Karimi PA-C - 10/12/2024 4:01 PM EST PDMP website checked and validated. All prescriptions have been APPROPRIATELY filled. No suspiciousactivity was identified. 10/12/2024 by Elizabeth Karimi PA-C The following approved medication requests have been transmitted electronically. Requested Prescriptions Signed Prescriptions Disp Refills traMADol (ULTRAM) 50 mg tablet 15 tablet 0 Sig: Take 1 tablet by mouth every 8 hours as needed for pain for up to 5 days. Authorizing Provider: ELIZABETH KARIMI PA-C [facility]03-05-2025 NoteMer[facility]03-05-20[facility] History of Present illness Narrative* Ronnie Pettit, PT - 10/12/2024 11:36 AM EST Episode Visit Count: 2 Therapist That Will Accept/Oversee The Plan Of Care: Ronnie Pettit PT. Start of Care Date: 10/05/24 Onset Date: 09/19/23 Plan of Care Certification Date: 10/05/24 Next Certification Due Date: 11/16/24 Patient Identified by Name and Date of : Yes REHABILITATION AND SPORTS THERAPY PHYSICAL THERAPY TREATMENT NOTE ASSESSMENT: Sri Chacon tolerated the session with increased symptoms and expected muscle soreness. She demonstrated increased guarding into L Knee Ext at beginning of session; improvements throughout session. The patient will continue to benefit from ongoing skilled physical therapy to progress toward set goals and to continue with post-operative protocol. PLAN FOR NEXT VISIT: Push L Knee Ext A/AA/PROM. SUBJECTIVE: Reports doing exercises and crying during because they are hard and cause some irritation. States surgical team is sending pain med script today. Reports putting weight down during crutchwalking at home. Canceled mondays appt. Pain: Pain Pain Level: 10 Pain Location: Knee - Left Description: Aching, Throbbing Post Treatment Pain Post Treatment Pain Level: No Change Post Treatment Pain Location: Knee - Left Post Treatment Pain Description: Aching OBJECTIVE MEASURES WITH LEVEL OF FUNCTION: LE AROM L LE AROM: Knee Ext: Started -4 Knee Ext with LLLD Knee Ext and Quad Sets, improved to -2 followingtime. L Knee Extension: -2 Degrees (Ankle Propped.) TREATMENT: Therapeutic Exercise: 2: Supine L Knee Extension Stretch with Weight: 2x3Min, 5#. (Prop under heel) 3: Supine L Knee Extension Stretch w/o weight: 1x3Min. (Prop under heel) 4: Longsit L Quad Set, no prop: 3x10, 1-2sec holds. (VC/TC to try and get heel off table.) 5: Prone L Knee Ext Hangs: 2x3Min, 3# cuff. 6: Seated L Knee Extension Stretch with Chair: x3Min, 5#. Skilled Intervention: Patient was educated in proper exercise technique and purpose for exercises. Skilled judgment was used in selection of appropriate interventions. Correct performance of therapeutic exercises was facilitated with verbal and tactile cuing. Manual Therapy: 1: PROM for L Knee Ext in supine heel propped: 3x10, 5-sec holds with increased therapist push. 2: PROM in Sitting, L Knee Ext/Flexion: 3x10. Skilled Intervention: Manual skills to improve joint mobility, ROM, and decrease pain. Utilized anatomy knowledge of the therapist, and assessment of patient's response to intervention. Billing Therapeutic Exercise Treatment Minutes: 26 Manual TherapyTreatment Minutes: 12 Skilled Treatment Time Minutes (timed and untimed codes): 38 Total Session Time (minutes): 38 Session Start Time : 1135 Session Stop Time : 1213 Decreased visit time due to patient arriving late to appointment. Ronnie Pettit PT documented in this encounterOhiohealth [facility]03-05-2025 Telephone encounter Note * Telephone Encounter - Ling Simmons RN - 10/12/2024 8:50 AM EST Spoke with patient She is having pain and trouble sleeping and was asking if she could get something to help Has been taking OTC Tylenol and/or ibuprofen, they are not helping Please advise [facility]02-[facility] NoteMer[facility]02-[facility] History of Present illness Narrative* Ronnie Pettit PT - 10/05/2024 2:03 PM EST Images from the original note were not included. Episode Visit Count: 5 Therapist That Will Accept/Oversee The Plan Of Care: Ronnie Pettit PT. Start of Care Date: 10/05/24 Onset Date: 09/19/23 Plan of Care Certification Date: 10/05/24 Next Certification Due Date: 11/16/24 Patient Identified by Name and Date of : Yes REHABILITATION AND SPORTS THERAPY PHYSICAL THERAPY RE-EVALUATION PLAN OF CARE: Assessment: Sri Chacon presents with diagnosis of manipulation under anesthesia, intraarticular knee injection yesterday (10/04/24.) with prior history of 06/30/24: Left knee manipulation under anesthesia: and extensive synovectomy: 04/07/24: S/P Left knee medial meniscus repair. Current status inte rferes with standing, walking, walking in the community, stair negotiation, physical activities, working, squatting, weight bearing . The patient presents with impairments in ADL's, gait, independence in exercise, joint mobility, overall function, range of motion, soft tissue healing, strength, symptom management, and tissue tenderness. PROMIS (Patient-Reported Outcomes Measurement Information System) scores were reviewed and identified as a rehabilitation concern. Prognosis for therapy is Fair due to: limited compliance with previous therapy, chronic nature of impairments, limited support system, Prognosis may be improved by current objective clinical presentation.The patient will benefit from skilled therapy services to meet the goals established for this plan of care as noted below. Goals for Episode of Care: established 10/05/24 Patient reported outcome of pain Interference will decrease T -score by a minimum of 5 points. Patient reported outcome of physical function will increase T-score by a minimum 5 points. [place] in home exercise program. Increase ROM of L Knee to 0-115 degrees for improvement in ambulation ability & functional activities. Increased strength of LLE to 5/5 MMT for improved ADLs and ability for return to work. Normalize Gait without Assistive Device. Time Frame for Goals and Treatment : 01/02/25 Planned Interventions, Frequency, and Duration: Current Frequency: 2x/week (2-3x/week.) Duration: 8 weeks Total Number of Visits Planned: 24 Planned Treatment Interventions: Therapeutic exercise (65163), Neuromuscular re- education (07448), Manual therapy (52463), Therapeutic activities (20852), Self- residential management (67257), Patient/Family/Caregiver Education, Gait Training (72245) PLAN FOR NEXT VISIT: Assess compliance with HEP; push L Knee A/AA/PROM, ashley. extension. Gait. Patient demonstrates good understanding of plan of care and treatment. The above goals and plan of care were discussed and agreed upon by patient/family. SUBJECTIVE: Three total operations so far under the L Knee since 04/07/24. 04/07/24: left knee arthroscopy medialmeniscus root/posterior horn repair. On 06/30/24 Left knee manipulation under anesthesia: and extensive synovectomy. Yesterday (10/04/24), manipulation under anesthesia, intraarticular knee injection.All operations with Dr. Randolph. Dr. Randolph messaged myself yesterday with the following -- No block to extension, once asleep went completely straight, only slight flexion loss of 5 deg thatwas gently manipulated. Patient arrives on elia crutches NWB on LLE. States couldn't sleep great last night, denies pillow under the knee at home. Rx'd Oxycodone, has not taken any yet. Functional Limitations: standing, walking, walking in the community, stair negotiation, physical activities, working, squatting, weight bearing Prior Level of Function: Independent without limitations Relevant History Past Relevant Medical Conditions: Per review with patient no issues were identified Employment: Unemployed (Unable to work currently) Intake Information: Prescription present Previous Treatment: Physical Therapy , Surgery , Steroids , Injections , Pain meds Pain: Pain Pain Level: 10 Pain Location: Knee - Left Description: Aching, Throbbing Post Treatment Pain Post Treatment Pain Level: No Change Post Treatment Pain Location: Knee - Left Post Treatment Pain Description: Aching PROMIS Scales 09/12/2024 08/14/2024 07/20/2024 Higher is Better Phys Func - T Score 22 (severe dysfunction) 19 (severe dysfunction) 23 (severe dysfunction) Phys Func - Percentile 0 0 0 Self-Eff Symptom - T Score 31 (Low) 32 (Low) 35 (Low) Self-Eff Symptom - Percentile 3 4 7 Proxy-reported T-scores: mean of general population = 50. 5 points is clinically meaningfully difference Percentiles provide an indication of how the patient's score ranks in relation to the general population. Higher percentile rankings indicate better function/quality of life. 50th percentile is the average of the general population and indicates half of respondents had a worse score. OBJECTIVE MEASURES WITH LEVEL OF FUNCTION: LE AROM L Knee Extension: -2 Degrees (Ankle Propped) L Knee Flexion: (Not completed actively in supine.) LE PROM L Knee Extension: 0 Degrees L Knee Flexion: 85 Degrees (Seated; Very Guarded.) LE Strength L LE Strength: Able to complete partial range of L SLR with moderate lag. Gait Weight Bearing Status: FWB Gait Device: Crutches Gait Observation: Use of B Crutches. Came in NWB on LLE; Left the session WB on LLE with step-to pattern and antalgic limp, TROM locked in extension. Education: TREATMENT: PT Treatment Interventions: Therapeutic Exercise Evaluation Therapeutic Exercise: 1: *L Longsit Quad Set w/ Prop Under Heel: x10, 5-sec. 2: *Supine L Knee Extension Stretch with Weight: x3Min, 2#. (Prop under heel) 3: *Supine L Knee Extension Stretch w/o weight: 2x3Min. (Prop under heel) 4: *Seated L Knee Extension Stretch with Chair: x3Min. 5: *L Supine Single Leg Ankle Pumps with heel propped: x20. 6: *L Prone Knee Extension Hang: Not completed today, discussed for home HEP. 7: Discussed importance of HEP adherance and pushing herself outside of PT. 8: Discussed POC of 3x a week & importance of Knee Ext, Gait & Quad Control. 9: Discussed and educated patient on WB orders per the surgeon and use of TROM at home. Skilled Intervention: Patient was educated in proper exercise technique and purpose for exercises. Reviewed and educated patient on additions/changes for home exercise program as above (*). Skilled judgment was used in selection of appropriate interventions. Provided written instruction for home exercise program to facilitate proper performance and compliance. Correct performance of therapeutic exercises was facilitated with verbal and tactile cuing. Patient education as noted. Billing * Re-Evaluation Complexity: 1 Unit Therapeutic Exercise Treatment Minutes: 24 Skilled Treatment Time Minutes (timed and untimed codes): 40 Total Session Time (minutes): 40 Session Start Time : 1410 Session Stop Time : 1450 Ronnie Pettit PT documented in this encounter[facility] NoteHNO ID: [id number] Author: VINCE RAI MD Service: Anesthesiology Author Type: Anesthesiologist Type: Anesthesia Procedure Notes Filed: 10/04/2024 14:03 Note Text: ANESTHESIOLOGY PROCEDURE NOTE Peripheral Nerve Block General Information Procedure Start Time/Medication Administration: 10/04/2024 9:57 AM Procedure End time: 10/04/2024 10:00 AM Patient location during procedure: pre-op Timeout Performed Pre-procedure: timeout performed Consent Obtained: Yes (via Surgical Consent) Patient identity confirmed: patient sedated or unresponsive Reason for block: post-op pain management/at surgeon's request Staffing Anesthesiologist: Vince Rai MD Performed by: anesthesiologist Preparation Sterility Preparation: hand hygiene performed prior to procedure, surgical cap used, mask used, sterile drape used during line insertion, skin prep agent completely dried prior to procedure Site Prep: Chloraprep Pre-Procedure Neuro Exam Location: LLE Sensory: intact Motor: intact Procedure Details Patient Position: supine Monitoring: Pulse OX, EKG and NIBP Block Type Lower Extremity: femoral Laterality: left Injection Technique: single-shot Ultrasound Guided: Yes Image in Chart: yes Local Infiltration: Yes Needle Needle Type: echogenic (Pajunk) Needle Gauge: 21 G Needle Length: 100 mm Assessment Injection assessment: negative aspiration, no paresthesia on injection, incremental injection and local visualized surrounding nerve on ultrasound Post-Procedure Neuro Exam Expected Regional Anesthesia: Yes Medications Administered dexamethasone sodium phosphate injection (DECADRON) - peripheral nerve block 4 mg - 10/04/2024 9:57:00 AM ropivacaine (PF) 2 mg/mL (0.2 %) injection (NAROPIN) - peripheral nerve block 30 mL - 10/04/2024 9:57:00 AM Comments Surgeon wants long acting block , so we did a femoral nerve block after D/W the patient SIGNATURE: Vince Rai MD PATIENT NAME: Sri Chacon DATE: October 04, 2024 TIME: 2:01 PM CSN: [id number] NoteHNO ID: [id number] Author: ?, ?, ? Service: Pharmacy Author Type: ? Type: Plan of Care Filed: 10/04/2024 11:45 Note Text: PHARMACY BEDSIDE DELIVERY SERVICE Patient Name: Sri Chacon The marked outpatient medications were Filled at: [facility] and delivered to the patient's bedside to pharm p/u Medication List START taking these medications oxyCODONE-acetaminophen 5-325 mg tablet Commonly known as: PERCOCET Take 1 tablet by mouth every 6 hours as needed for pain for up to 5 days. X CONTINUE taking these medications diphenhydrAMINE 50 mg/mL injection Commonly known as: BENADRYL Inject 50 mg intramuscularly every 6 hours as needed (at migraine onset). Max 200mg per day. Max dispense 16 mL per month ergocalciferol (vitamin D2) 50,000 unit capsule Commonly known as: DrisdoL Take 1 capsule by mouth one time a week. FLUoxetine 40 mg capsule Commonly known as: PROzac Take 1 capsule by mouth once daily. lamoTRIgine 100 mg tablet Commonly known as: LaMICtal Take 1 tablet by mouth two times a day. To start on or after 08/10/2024, after completing titration schedule. levothyroxine 75 mcg tablet Commonly known as: SYNTHROID Take 1 tablet by mouth daily before breakfast. Mirtazapine 7.5 mg tablet Commonly known as: Remeron Take 1 tablet by mouth daily at bedtime. QULIPTA 60 mg tablet Generic drug: atogepant Take 1 tablet (60 mg) by mouth once daily. Syringe with Needle (Disp) 3 mL 23 x 1 1 Each as directed. You might also be taking other medications not listed above. If you have questions about any of your other medications, talk to the person who prescribed them or your Primary Care Provider. Daysi Valadez PAGER: [phone] October 04, 2024 11:45 [id number] Plan of care note* Plan of Care - Daysi Valadez - 10/04/2024 11:45 AM EST Images from the original note were not included. PHARMACY BEDSIDE DELIVERY SERVICE Patient Name: Sri Chacon The marked outpatient medications were Filled at: [facility] and delivered to the patient's bedside to pharm p/u Medication List START taking these medications oxyCODONE-acetaminophen 5-325 mg tablet Commonly known as: PERCOCET Take 1 tablet by mouth every 6 hours as needed for pain for up to 5 days. X CONTINUE taking these medications diphenhydrAMINE 50 mg/mL injection Commonly known as: BENADRYL Inject 50 mg intramuscularly every 6 hours as needed (at migraine onset). Max 200mg per day. Max dispense 16 mL per month ergocalciferol (vitamin D2) 50,000 unit capsule Commonly known as: DrisdoL Take 1 capsule by mouth one time a week. FLUoxetine 40 mg capsule Commonly known as: PROzac Take 1 capsule by mouth once daily. lamoTRIgine 100 mg tablet Commonly known as: LaMICtal Take 1 tablet by mouth two times a day. To start on or after 08/10/2024, after completing titration schedule. levothyroxine 75 mcg tablet Commonly known as: SYNTHROID Take 1 tablet by mouth daily before breakfast. Mirtazapine 7.5 mg tablet Commonly known as: Remeron Take 1 tablet by mouth daily at bedtime. QULIPTA 60 mg tablet Generic drug: atogepant Take 1 tablet (60 mg) by mouth once daily. Syringe with Needle (Disp) 3 mL 23 x 1 1 Each as directed. You might also be taking other medications not listed above. If you have questions about any of your other medications, talk to the person who prescribed them or your Primary Care Provider. Daysi Valadez PAGER: [phone] October 04, 2024 11:45 AM [facility]02-[facility] Miscellaneous Notes* Plan of Care - Daysi Valadez - 10/04/2024 11:45 AM EST Images from the original note were not included. PHARMACY BEDSIDE DELIVERY SERVICE Patient Name: Sri Chacon The marked outpatient medications were Filled at: [place] and delivered to the patient's bedside to pharm p/u Medication List START taking these medications oxyCODONE-acetaminophen 5-325 mg tablet Commonly known as: PERCOCET Take 1 tablet by mouth every 6 hours as needed for pain for up to 5 days. X CONTINUE taking these medications diphenhydrAMINE 50 mg/mL injection Commonly known as: BENADRYL Inject 50 mg intramuscularly every 6 hours as needed (at migraine onset). Max 200mg per day. Max dispense 16 mL per month ergocalciferol (vitamin D2) 50,000 unit capsule Commonly known as: DrisdoL Take 1 capsule by mouth one time a week. FLUoxetine 40 mg capsule Commonly known as: PROzac Take 1 capsule by mouth once daily. lamoTRIgine 100 mg tablet Commonly known as: LaMICtal Take 1 tablet by mouth two times a day. To start on or after 08/10/2024, after completing titration schedule. levothyroxine 75 mcg tablet Commonly known as: SYNTHROID Take 1 tablet by mouth daily before breakfast. Mirtazapine 7.5 mg tablet Commonly known as: Remeron Take 1 tablet by mouth daily at bedtime. QULIPTA 60 mg tablet Generic drug: atogepant Take 1 tablet (60 mg) by mouth once daily. Syringe with Needle (Disp) 3 mL 23 x 1 1 Each as directed. You might also be taking other medications not listed above. If you have questions about any of your other medications, talk to the person who prescribed them or your Primary Care Provider. Daysi Valadez PAGER: [phone] October 04, 2024 11:45 AM documented in this encounterOhio[facility]02-[facility]-2025 NoteHNO ID: [id number] Author: DEYVI COTO APRN.AUTOMATIC LATHE SETTER Service: Anesthesiology Author Type: Nurse Rehabilitator Type: Anesthesia Procedure Notes Filed: 10/04/2024 10:03 Note Text: ANESTHESIOLOGY PROCEDURE NOTE Airway General Information Procedure Start Time/Medication Administration: 10/04/2024 9:52 AM Procedure End Time: 10/04/2024 9:52 AM Patient location during procedure: OR Timeout Performed Pre-procedure: timeout performed Consent Obtained: Yes Patient identity confirmed: arm band and care cps team lead Staffing AUTOMATIC LATHE SETTER: Deyvi Coto APRN.AUTOMATIC LATHE SETTER Performed by: JUN Indications and Patient Condition Indications for airway management: anesthesia Preoxygenated: yes anesthesia circuit Patient position: sniffing Method: asleep Cricoid Pressure: No Final Airway Details Final airway type: supraglottic airway Number of attempts at approach: 1 Final Supraglottic Airway: i-gel Size 3 Seal Adequate: yes SIGNATURE: Deyvi Coto APRN.AUTOMATIC LATHE SETTER PATIENT NAME: Sri Chacon DATE: October 04, 2024 TIME: 10:03 AM CSN: [id number] Surgery Surgical operation note* Operative Report - Irene Randolph DO - 10/04/2024 9:47 AM EST OPERATIVE/PROCEDURE REPORT LOG ID: [id number] SURGERY/PROCEDURE DATE: 10/04/2024 INCISION/PROCEDURE START TIME: 10:04 AM INCISION CLOSE/PROCEDURE END TIME: 10:19 AM SURGEON(S)/PROCEDURALIST(S) AND CERAMICS ARTIST(S): Surgeons and Role: * Irene Randolph DO - Primary Physician Aviation Safety Officer: Elizabeth Karimi PA-C Registered Nurse [employer] Officer: Dania Moore RN SURGERY/PROCEDURE(S): Left knee evalution under anesthesia, manipulation under anesthesia, intraarticular knee injction ANESTHESIA: General SURGERY/PROCEDURE DETAILS: Preop note Patient is a 49-year-old female well-known to me in clinic had a meniscus repair and then developedsome synovitis post op the first time taken her to the OR scoped her knee she had little synovitis she did get debilitated for the last 10 to 15 degrees of flexion at that time and was sent to PT. Patient then returned and for the last 2 months has been unable to sting her leg PT has been working with her as well as we have in the office to work on the brace and to work on ways to get her drain patient states is a mechanical block. We discussed options for manipulation versus open lysis of adhesions pending her evaluation under anesthesia. Patient is aware would like proceed with a left knee evaluation under anesthesia possible manipulation under anesthesia with possible arthroscopic lysis of adhesions repair as indicated. Rheum labs negative. Operative note Patient seen and examined. The whole preoperative holding her. Left knee was marked. Patient received a preop regional block. Patient brought to the operating room placed supine on the operating table. [place], anesthesia, antibiotics were ministered. After patient was asleep she was able to upon eval uation she had full extension of her left knee with no mechanical blocks whatsoever. We compared this to her right knee and they were comparable if not anatomic compared to her contralateral. We thenflexed her knee as far as it would go in flexion of her left there is slight cracking popping the last 5 degrees of flexion but this was again anatomic compared to her right knee after the last 5 degrees of manipulation. She had good patella mobility of her left knee we did then under sterile conditions perform a left intra-articular Kenalog injection. Patient was placed back in her T ROM in fullextension upon awake patient had 0 pain. Patient is to see physical therapy tomorrow and call and her therapist was notified of no blocks to extension once patient was asleep. Patient Toller procedure well no complications respiratory room stable condition. Postoperative note Percocet Weight-bear as tolerated with T ROM locked in extension locked in extension for the next 6 weeks atnight and while ambulating Physical therapy for aggressive range of motion in both extension and in flexion is again no blocksto range of motion after during our evaluation under anesthesia except in the last 3 degrees of flexion Call with increased pain numbness ting or further issues arise Dragon disclaimer comment: Please note this report has been produced using speech recognition software and may contain errors related to that system including errors in grammar, punctuation, and spelling, as well as words and phrases that may be inappropriate. If there are any questions or concernsplease feel free to contact the dictating provider for clarification. PRE-OP/PRE-PROCEDURE DIAGNOSIS: left knee arthrofibrosis POST-OP/POST-PROCEDURE DIAGNOSIS: Same as Preop ESTIMATED BLOOD LOSS: 0 ml SPECIMENS: None IMPLANTABLE DEVICES: NONE DRAINS: None COMPLICATIONS: None PARTICIPATION IN SURGERY/PROCEDURE: I/primary surgeon/proceduralist performed the procedure with assistance. No qualified resident/fellow was available. SIGNATURE: Irene Randolph DO PATIENT NAME: Sri Chacon DATE: October 04, 2024 TIME: 10:31 AM [facility] Surgical operation note* Operative Report - Irene Randolph DO - 10/04/2024 9:47 AM EST OPERATIVE/PROCEDURE REPORT LOG ID: [id number] SURGERY/PROCEDURE DATE: 10/04/2024 INCISION/PROCEDURE START TIME: 10:04 AM INCISION CLOSE/PROCEDURE END TIME: 10:19 AM SURGEON(S)/PROCEDURALIST(S) AND CERAMICS ARTIST(S): Surgeons and Role: * Irene Randolph DO - Primary Physician Aviation Safety Officer: Elizabeth Karimi PA-C Registered Nurse [employer] Officer: Dania Moore RN SURGERY/PROCEDURE(S): Left knee evalution under anesthesia, manipulation under anesthesia, intraarticular knee injction ANESTHESIA: General SURGERY/PROCEDURE DETAILS: Preop note Patient is a 49-year-old female well-known to me in clinic had a meniscus repair and then developedsome synovitis post op the first time taken her to the OR scoped her knee she had little synovitis she did get debilitated for the last 10 to 15 degrees of flexion at that time and was sent to PT. Patient then returned and for the last 2 months has been unable to sting her leg PT has been working with her as well as we have in the office to work on the brace and to work on ways to get her drain patient states is a mechanical block. We discussed options for manipulation versus open lysis of adhesions pending her evaluation under anesthesia. Patient is aware would like proceed with a left knee evaluation under anesthesia possible manipulation under anesthesia with possible arthroscopic lysis of adhesions repair as indicated. Rheum labs negative. Operative note Patient seen and examined. The whole preoperative holding her. Left knee was marked. Patient received a preop regional block. Patient brought to the operating room placed supine on the operating table. [place], anesthesia, antibiotics were ministered. After patient was asleep she was able to upon eval uation she had full extension of her left knee with no mechanical blocks whatsoever. We compared this to her right knee and they were comparable if not anatomic compared to her contralateral. We thenflexed her knee as far as it would go in flexion of her left there is slight cracking popping the last 5 degrees of flexion but this was again anatomic compared to her right knee after the last 5 degrees of manipulation. She had good patella mobility of her left knee we did then under sterile conditions perform a left intra-articular Kenalog injection. Patient was placed back in her T ROM in fullextension upon awake patient had 0 pain. Patient is to see physical therapy tomorrow and call and her therapist was notified of no blocks to extension once patient was asleep. Patient Toller procedure well no complications respiratory room stable condition. Postoperative note Percocet Weight-bear as tolerated with T ROM locked in extension locked in extension for the next 6 weeks atnight and while ambulating Physical therapy for aggressive range of motion in both extension and in flexion is again no blocksto range of motion after during our evaluation under anesthesia except in the last 3 degrees of flexion Call with increased pain numbness ting or further issues arise Jovan disclaimer comment: Please note this report has been produced using speech recognition software and may contain errors related to that system including errors in grammar, punctuation, and spelling, as well as words and phrases that may be inappropriate. If there are any questions or concernsplease feel free to contact the dictating provider for clarification. PRE-OP/PRE-PROCEDURE DIAGNOSIS: left knee arthrofibrosis POST-OP/POST-PROCEDURE DIAGNOSIS: Same as Preop ESTIMATED BLOOD LOSS: 0 ml SPECIMENS: None IMPLANTABLE DEVICES: NONE DRAINS: None COMPLICATIONS: None PARTICIPATION IN SURGERY/PROCEDURE: I/primary surgeon/proceduralist performed the procedure with assistance. No qualified resident/fellow was available. SIGNATURE: Irene Randolph DO PATIENT NAME: Sri Chacon DATE: October 04, 2024 TIME: 10:31 AM documented in this encounterOhio[facility] Nurse Note* Marion Lima RN - 10/04/2024 9:[address] Rai at bedside for Ultrasound guided Left adductor nerve block. RN at bedside, pt monitoredthroughout, BP 135/63 Pulse 76 Temp 36.5 C (97.7 F) (Temporal Artery) Resp 19 Ht 154.9 cm (5' 1) Wt 61.2 kg (135 lb) SpO2 100% BMI 25.51 kg/m . Pt medicated with 2 mg iv versed, 50 mcgfentanyl . Pt tolerated procedure without difficulty. Family called to bedside at completion of procedure. [facility] Nurse Note* Marion Lima RN - 10/04/2024 9:[address] Rai at bedside for Ultrasound guided Left adductor nerve block. RN at bedside, pt monitoredthroughout, BP 135/63 Pulse 76 Temp 36.5 C (97.7 F) (Temporal Artery) Resp 19 Ht 154.9 cm (5' 1) Wt 61.2 kg (135 lb) SpO2 100% BMI 25.51 kg/m . Pt medicated with 2 mg iv versed, 50 mcgfentanyl . Pt tolerated procedure without difficulty. Family called to bedside at completion of procedure. documented in this encounterOhio[facility]25 NoteHNO ID: [id number] Author: VINCE RAI MD Service: Anesthesiology Author Type: Anesthesiologist Type: Anesthesia Procedure Notes Filed: 10/04/2024 08:53 Note Text: ANESTHESIOLOGY PROCEDURE NOTE Peripheral Nerve Block General Information Procedure Start Time/Medication Administration: 10/04/2024 8:36 AM Procedure End time: 10/04/2024 8:39 AM Patient location during procedure: pre-op Timeout Performed Pre-procedure: timeout performed Consent Obtained: Yes Patient identity confirmed: arm band Reason for block: post-op pain management/at surgeon's request Staffing Anesthesiologist: Vince Rai MD Performed by: anesthesiologist Preparation Sterility Preparation: hand hygiene performed prior to procedure, sterile gloves, drapes, and procedure tray, gown used during line insertion, surgical cap used, mask used, sterile drape used during line insertion, skin prep agent completely dried prior to procedure Site Prep: Chloraprep Pre-Procedure Neuro Exam Location: LLE Sensory: intact Motor: intact Procedure Details Patient Position: supine Monitoring: Pulse OX, EKG and NIBP Block Type Lower Extremity: distal femoral (adductor canal) Laterality: left Injection Technique: single-shot Ultrasound Guided: Yes Image in Chart: yes Local Infiltration: Yes Needle Needle Gauge: 21 G Needle Length: 83 mm Needle Localization: ultrasound Assessment Injection assessment: negative aspiration, no paresthesia on injection, incremental injection and local visualized surrounding nerve on ultrasound Post-Procedure Neuro Exam Expected Regional Anesthesia: Yes Medications Administered lidocaine 100 mg/5 mL (2 %) IV syringe - EPIDURAL 3 mL - 10/04/2024 8:36:00 AM ropivacaine (PF) 5 mg/mL (0.5 %) injection (NAROPIN) - peripheral nerve block 20 mL - 10/04/2024 8:36:00 AM dexamethasone sodium phosphate injection (DECADRON) - peripheral nerve block 4 mg - 10/04/2024 8:36:00 AM SIGNATURE: Vince Rai MD PATIENT NAME: Sri Chacon DATE: October 04, 2024 TIME: 8:52 AM CSN: [id number] Attending History and physical note* Irene Randolph DO - 10/04/2024 8:47 AM EST UPDATED HISTORY AND PHYSICAL EXAMINATION SERVICE DATE: 10/04/2024 SERVICE TIME: 8:47 AM PHYSICAL EXAM MUST BE COMPLETED ON ADMISSION The History and Physical (completed in the past 30 days) has been reviewed and the patient has beenexamined. The contents accurately reflect the patient's condition with the following additions or revisions since the H&P was completed. Examination indicates no changes. This H&P can be found in the Electronic Medical Record. SIGNATURE: Irene Randolph DO PATIENT NAME: Sri Chacon DATE: October 04, 2024 TIME: 8:47 AM Source Note - Marcy Salinas APRN.CNP - 09/27/2024 8:00 AM EST Images from the original note were not included. [facility] HISTORY AND PHYSICAL EXAMINATION SERVICE DATE: 09/27/2024 SERVICE TIME: 7:57 AM Patient has been identified by name and date of : Yes Reason for contact: PACC visit Accompanied by: Self This is a virtual visit using [employer] Video Visit. It required patient- provider interaction for the medical decision making as documented below. I have communicated my name and active licensure. The patient's identity and physical location wereverified at the time of this visit. Either the patient or their legal videotape sales representative has been informed of the risks and benefits of and alternatives to treatment through a remote evaluation and consents to proceed with the evaluation remotely. PRIMARY CARE PHYSICIAN: No primary care provider on file. REASON FOR VISIT: Sri Chacon is a 49 year old female who is scheduled for Left - ARTHROSCOPY KNEE SYNOVECTOMY MAJOR- (Possible) Left - MANIPULATION KNEE JOINT UNDER GENERAL ANES at the request of Dr. Irene Randolph for consultation. My final recommendation will be communicated back to the requesting physician by way ofshared medical record or letter. Assessment Other convulsions PNES Assessment: seizures since 2007. Seizures described as aura of feeling lightheaded, weird, tunnelvision, progressing to staring unresponsive, then GTC. Seizures lasting 2-3 minutes and occurring every 3-4 mos. History suggestive of post-traumatic focal epilepsy, with secondarily generalized motor seizures, however, prior EEG and MRI have been normal. Had EEG 06/19- Patient noted to have four typical events without EEG change. Following with neurology- last OV 07/18/2024 States has not had any convulsions or seizure like activity since EEG done 06/19. Hypothyroidism Assessment: Following with endocrinology . Last OV 08/02/2024. Per note... She does not have any symptoms concerning for hypothyroidism, and rather has a combination of non specific symptoms Her TSH levels are also stably elevated over the years. TPO antibodies slightly better than in ut this might not be much beneficial in predicting outcomes at this time She can repeat labs in one year from now Mood disorder (HCC) Assessment: Started on Prozac by psychiatry while admitted 06/19 Migraines Following with neuro. Managed on medication States had chronic daily migraines [place] Activity Status Index: METS: Walk indoors, such as around the house (1.75 METs) Do light work around the house, such as dusting or washing dishes (2.70 METs) Take care of self; that is eating, dressing, bathing, using the toilet (2.75 METs) Walk a block or two on level ground (2.75 METs) Climb a flight of stairs or walk up a hill (5.50 METs) DASI Score: 15.45 Patient is partially dependent (using crutches). Clinical Frailty Scale: 3. Well, with treated comorbid disease STOP-Bang Score: Denies snoring loudly Denies feeling tired, fatigued, or sleepy during the daytime Has not been observed to stop breathing or choking/gasping during sleep Denies having high blood pressure BMI less than or equal to 35 kg/m^2 Patient 50 years old or younger Does not have a large neck Non-male patient STOP-Bang Score: 0 [id number] Score: Age: <65 Sex: female CHF history: No Hypertension history: No Stroke/TIA/thromboembolism history: No Vascular disease history: No Diabetes history: No [id number] Score: 1 ANESTHESIA FINDINGS: Intubation History: No history of difficult intubation Significant Anesthesia Considerations: per surgeon note- Needs long acting post op block, Dr. Dia informed none Airway History: No history of difficult airway I - PHYSICAL EVALUATION AIRWAY Patient intubated: No. Tracheostomy tube not present Mallampati: II. TM distance: >3 FB. Neck ROM: full ROM without neurological symptoms. Mouth opening: adequate. Short neck: no. Thick neck: no DENTAL Dentures, upper: partial. II - ANESTHESIA PLAN Anesthetic plan additional comments: *PACC/TCI - anesthesia choice. Beta Lyndsey Monitoring Plan Post Procedure Analgesic Plan Prepared for surgery: This patient is optimally prepared for surgery. CONSULTS: Patient does not require consults for optimization at this time. The Following Tests/Procedures Have Been Initiated: No orders of the defined types were placed in this encounter. Planned Anesthetic: Per anesthesia choice Subjective CHIEF COMPLAINT: Pre-op visit HPI: 49 year old female with chronic left knee pain and instability. S/p Left knee arthroscopy, medial meniscus root /posterior horn repair on 04/07/24 and then had a manipulation on 06/30/2024 with no success. Scheduled for above procedure REVIEW OF SYSTEMS: PAIN ASSESSMENT: General: No weight loss, malaise or fevers. Neuro: Negative for TIA's + PNES + migraines- daily Respiratory: No history of current cough or dyspnea, or pneumonia in the past 6 weeks. No history of respiratory/pulmonary symptoms or problems. Cardiovascular: No history of HTN requiring medication, no history of angina, CHF, IA, cardiac surgery or stents. Denies rest pain, gangrene or revascularization/amputation for PVD. No history of cardiovascular symptoms or problems. GI: No history of GI symptoms or problems. No history of esophageal varices, recent ascites, or ETOH greater than 2 drinks per day. 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 : Denies, No LMP recorded. Patient has had a hysterectomy. Endocrine: Hypothyroidism Hematology: No history of bleeding or clotting disorder. Pt is not taking anti- coagulation or platelet medications. No history of hematological symptoms or problems. Oncology: No history of CA metastasis, chemo within 30 days, or radiotherapy within 90 days. Has not lost 10% of body wt in 6 months. No history of oncological symptoms or problems. Implanted Devices: No Psych: Anxiety, Depression Marijuana use: No Musculoskeletal: See HPI Skin: Negative for lesions, rash and itching. The patient has the following: ACTIVE PROBLEM LIST Asthma Sprain of Right Ankle Migraine Other Convulsions Nonrheumatic Mitral (Valve) Prolapse Essential Hypertension Depression Chronic Pain of Left Knee Tear of Medial Meniscus of Left Knee, Current Seizure-Like Activity (Hcc) Psychogenic Nonepileptic Seizure Mood Disorder (Hcc) Hypothyroidism Acute Medial Meniscus Tear of Left Knee Covid Immunization Dates Current Care Gaps Covid-19 Vaccine () Overdue since 04/10/2024 12/24/2020 Imm Admin: COVID-19 original vaccine, age 12+ yr, monovalent (PFIZER- BIONTECH - PURPLE TOP) 12/03/2020 Imm Admin: COVID-19 original vaccine, age 12+ yr, monovalent (PFIZER- BIONTECH - PURPLE TOP) PAST MEDICAL HISTORY Diagnosis Date Calculus of kidney 07/03/2006 Calculus of ureter 03/16/2008 Convulsions (HCC) 02/01/2013 Depression Essential hypertension 01/01/2018 Gallstone 12/25/2017 Hydronephrosis 03/16/2008 Hypothyroidism IBS (irritable bowel syndrome) Lactose intolerance in adult 01/21/2018 Migraine 02/01/2013 Nonrheumatic mitral (valve) prolapse 06/15/2017 Seizure disorder (HCC) last 04/2021 Traumatic brain injury (HCC) Unspecified asthma(493.90) Unspecified ectopic without intrauterine Ectopic PAST SURGICAL HISTORY Procedure Laterality Date ARTHROSCOPY KNEE DIAGNOSTIC W/WO SYNOVIAL BX SPX Left 06/30/2024 Dr. Mccracken ARTHROSCOPY KNEE W/MENISCUS RPR MEDIAL/LATERAL Left 04/07/2024 Left knee arthroscopy medial meniscus root/posterior horn repair CYSTOSCOPY,URETEROSCOPY,LITHOTRIPSY DILATION & CURETTAGE DX&/THER NONOBSTETRIC 1995 [...] other (mitral valve) Father Cataract Maternal Grandmother Difficulty with anesthesia No Family History Thyroid No Family History Social History Tobacco Use Smoking status: Never Passive exposure: Never Smokeless tobacco: Never Vaping Use Vaping status: Never Used Substance Use Topics Alcohol use: Yes Comment: rare Drug use: No Prior to Admission medications as of 09/27/24 0800 Medication Sig Last Dose Taking diphenhydrAMINE (BENADRYL) 50 mg/mL injection Inject 50 mg intramuscularly every 6 hours as needed (at migraine onset). Max 200mg per day. Max dispense 16 mL per month Yes Syringe with Needle, Disp, 3 mL 23 x 1 1 Each as directed. lamoTRIgine (LAMICTAL) 100 mg tablet Take 1 tablet by mouth two times a day. To start on or after 08/10/2024, after completing titration schedule. Yes atogepant (QULIPTA) 60 mg tablet Take 1 tablet (60 mg) by mouth once daily. Yes Mirtazapine (REMERON) 7.5 mg tablet Take 1 tablet by mouth daily at bedtime. FLUoxetine (PROZAC) 40 mg capsule Take 1 capsule by mouth once daily. Yes ergocalciferol 50,000 unit capsule (VITAMIN D2, DRISDOL) Take 1 capsule by mouth one time a week. Yes levothyroxine (SYNTHROID) 75 mcg tablet Take 1 tablet by mouth daily before breakfast. No medication comments found. ALLERGIES Allergen Reactions Codeine Hives, Swelling swelling-airway/face Morphine Swelling Penicillin G Hives, Swelling Shellfish Derived Anaphylaxis Benadryl [Diphenhyd* Mental Status Change Phenergan [Prometha* Mental Status Change Aspirin Rash Objective PHYSICAL EXAM: VITALS: Resp 18 Ht 5' 1 (1.55m) Wt 135 lb (61.2kg) BMI 25.52 kg/(m^2). VIDEO EXAM: (if completed, performed via video enabled technology) GENERAL: alert and appropriate, in no distress SKIN: no rash noted OROPHARYNX: moist mucus membranes NECK: full ROM, no cervical LNs noted RESPIRATORY: breathing non-labored CHEST: equal chest rise with normal respiratory effort HEART: No JVD, edema or cyanosis noted ABDOMEN: soft and non-tender NEUROLOGIC: no obvious deficit Diagnostic tests reviewed for today's visit: Lab Value Units Date High Low HB 14.8 g/dL 09/26/2024 15.5 11.5 HCT 45.4 % 09/26/2024 46.0 36.0 WBC 6.17 k/uL 09/26/2024 11.00 3.70 PLT 285 k/uL 09/26/2024 400 150 NA 139 mmol/L 09/26/2024 144 136 K 4.3 mmol/L 09/26/2024 5.1 3.7 GLUC 99 mg/dL 09/26/2024 99 74 BUN 14 mg/dL 09/26/2024 21 7 CREAT 0.95 mg/dL 09/26/2024 0.96 0.58 PTSEC 10.0 sec 06/20/2024 13.0 9.7 INR 0.9 no uni* 06/20/2024 1.3 0.9 APTT 28.4 sec 06/20/2024 32.4 23.0 ALT 24 U/L 09/26/2024 38 7 AST 20 U/L 09/26/2024 35 13 TBILI 0.6 mg/dL 09/26/2024 1.3 0.2 TSH 7.390 mIU/L 06/20/2024 4.200 0.270 Instructions Given to Patient: Instructions located in the after visit summary. Patient given verbal and written preop instructions and voices comprehension and compliance. SIGNATURE: Marcy Salinas APRN.CNP PATIENT NAME: Sri Chacon DATE: 09/27/2024 [facility]02-25-2025 History and physical note* Irene Randolph DO - 10/04/2024 8:47 AM EST UPDATED HISTORY AND PHYSICAL EXAMINATION SERVICE DATE: 10/04/2024 SERVICE TIME: 8:47 AM PHYSICAL EXAM MUST BE COMPLETED ON ADMISSION The History and Physical (completed in the past 30 days) has been reviewed and the patient has beenexamined. The contents accurately reflect the patient's condition with the following additions or revisions since the H&P was completed. Examination indicates no changes. This H&P can be found in the Electronic Medical Record. SIGNATURE: Irene Randolph DO PATIENT NAME: Sri Chacon DATE: October 04, 2024 TIME: 8:47 AM Source Note - Marcy Salinas APRN.SPOOL TENDER - 09/27/2024 8:00 AM EST Images from the original note were not included. [facility] HISTORY AND PHYSICAL EXAMINATION SERVICE DATE: 09/27/2024 SERVICE TIME: 7:57 AM Patient has been identified by name and date of : Yes Reason for contact: PACC visit Accompanied by: Self This is a virtual visit using [employer] Video Visit. It required patient- provider interaction for the medical decision making as documented below. I have communicated my name and active licensure. The patient's identity and physical location wereverified at the time of this visit. Either the patient or their legal videotape sales representative has been informed of the risks and benefits of and alternatives to treatment through a remote evaluation and consents to proceed with the evaluation remotely. PRIMARY CARE PHYSICIAN: No primary care provider on file. REASON FOR VISIT: Sri Chacon is a 49 year old female who is scheduled for Left - ARTHROSCOPY KNEE SYNOVECTOMY MAJOR- (Possible) Left - MANIPULATION KNEE JOINT UNDER GENERAL ANES at the request of Dr. Irene Randolph for consultation. My final recommendation will be communicated back to the requesting physician by way ofshared medical record or letter. Assessment Other convulsions PNES Assessment: seizures since 2007. Seizures described as aura of feeling lightheaded, weird, tunnelvision, progressing to staring unresponsive, then GTC. Seizures lasting 2-3 minutes and occurring every 3-4 mos. History suggestive of post-traumatic focal epilepsy, with secondarily generalized motor seizures, however, prior EEG and MRI have been normal. Had EEG 06/19- Patient noted to have four typical events without EEG change. Following with neurology- last OV 07/18/2024 States has not had any convulsions or seizure like activity since EEG done 11/10. Hypothyroidism Assessment: Following with endocrinology . Last OV 08/02/2024. Per note... She does not have any symptoms concerning for hypothyroidism, and rather has a combination of non specific symptoms Her TSH levels are also stably elevated over the years. TPO antibodies slightly better than in ut this might not be much beneficial in predicting outcomes at this time She can repeat labs in one year from now Mood disorder (HCC) Assessment: Started on Prozac by psychiatry while admitted 06/19 Migraines Following with neuro. Managed on medication States had chronic daily migraines [place] Activity Status Index: METS: Walk indoors, such as around the house (1.75 METs) Do light work around the house, such as dusting or washing dishes (2.70 METs) Take care of self; that is eating, dressing, bathing, using the toilet (2.75 METs) Walk a block or two on level ground (2.75 METs) Climb a flight of stairs or walk up a hill (5.50 METs) DASI Score: 15.45 Patient is partially dependent (using crutches). Clinical Frailty Scale: 3. Well, with treated comorbid disease STOP-Bang Score: Denies snoring loudly Denies feeling tired, fatigued, or sleepy during the daytime Has not been observed to stop breathing or choking/gasping during sleep Denies having high blood pressure BMI less than or equal to 35 kg/m^2 Patient 50 years old or younger Does not have a large neck Non-male patient STOP-Bang Score: 0 [id number] Score: Age: <65 Sex: female CHF history: No Hypertension history: No Stroke/TIA/thromboembolism history: No Vascular disease history: No Diabetes history: No [id number] Score: 1 ANESTHESIA FINDINGS: Intubation History: No history of difficult intubation Significant Anesthesia Considerations: per surgeon note- Needs long acting post op block, Dr. Dia informed none Airway History: No history of difficult airway I - PHYSICAL EVALUATION AIRWAY Patient intubated: No. Tracheostomy tube not present Mallampati: II. TM distance: >3 FB. Neck ROM: full ROM without neurological symptoms. Mouth opening: adequate. Short neck: no. Thick neck: no DENTAL Dentures, upper: partial. II - ANESTHESIA PLAN Anesthetic plan additional comments: *PACC/TCI - anesthesia choice. Beta Lyndsey Monitoring Plan Post Procedure Analgesic Plan Prepared for surgery: This patient is optimally prepared for surgery. CONSULTS: Patient does not require consults for optimization at this time. The Following Tests/Procedures Have Been Initiated: No orders of the defined types were placed in this encounter. Planned Anesthetic: Per anesthesia choice Subjective CHIEF COMPLAINT: Pre-op visit HPI: 49 year old female with chronic left knee pain and instability. S/p Left knee arthroscopy, medial meniscus root /posterior horn repair on 04/07/24 and then had a manipulation on 06/30/2024 with no success. Scheduled for above procedure REVIEW OF SYSTEMS: PAIN ASSESSMENT: General: No weight loss, malaise or fevers. Neuro: Negative for TIA's + PNES + migraines- daily Respiratory: No history of current cough or dyspnea, or pneumonia in the past 6 weeks. No history of respiratory/pulmonary symptoms or problems. Cardiovascular: No history of HTN requiring medication, no history of angina, CHF, IA, cardiac surgery or stents. Denies rest pain, gangrene or revascularization/amputation for PVD. No history of cardiovascular symptoms or problems. GI: No history of GI symptoms or problems. No history of esophageal varices, recent ascites, or ETOH greater than 2 drinks per day. 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 : Denies, No LMP recorded. Patient has had a hysterectomy. Endocrine: Hypothyroidism Hematology: No history of bleeding or clotting disorder. Pt is not taking anti- coagulation or platelet medications. No history of hematological symptoms or problems. Oncology: No history of CA metastasis, chemo within 30 days, or radiotherapy within 90 days. Has not lost 10% of body wt in 6 months. No history of oncological symptoms or problems. Implanted Devices: No Psych: Anxiety, Depression Marijuana use: No Musculoskeletal: See HPI Skin: Negative for lesions, rash and itching. The patient has the following: ACTIVE PROBLEM LIST Asthma Sprain of Right Ankle Migraine Other Convulsions Nonrheumatic Mitral (Valve) Prolapse Essential Hypertension Depression Chronic Pain of Left Knee Tear of Medial Meniscus of Left Knee, Current Seizure-Like Activity (Hcc) Psychogenic Nonepileptic Seizure Mood Disorder (Hcc) Hypothyroidism Acute Medial Meniscus Tear of Left Knee Covid Immunization Dates Current Care Gaps Covid-19 Vaccine () Overdue since 04/10/2024 12/24/2020 Imm Admin: COVID-19 original vaccine, age 12+ yr, monovalent (PFIZER- BIONTECH - PURPLE TOP) 12/03/2020 Imm Admin: COVID-19 original vaccine, age 12+ yr, monovalent (PFIZER- BIONTECH - PURPLE TOP) PAST MEDICAL HISTORY Diagnosis Date Calculus of kidney 07/03/2006 Calculus of ureter 03/16/2008 Convulsions (HCC) 02/01/2013 Depression Essential hypertension 01/01/2018 Gallstone 12/25/2017 Hydronephrosis 03/16/2008 Hypothyroidism IBS (irritable bowel syndrome) Lactose intolerance in adult 01/21/2018 Migraine 02/01/2013 Nonrheumatic mitral (valve) prolapse 06/15/2017 Seizure disorder ([facility]) last 04/2021 Traumatic brain injury ([facility]) Unspecified asthma(493.90) Unspecified ectopic without intrauterine Ectopic PAST SURGICAL HISTORY Procedure Laterality Date ARTHROSCOPY KNEE DIAGNOSTIC W/WO SYNOVIAL BX SPX Left 06/30/2024 Dr. Mccracken ARTHROSCOPY KNEE W/MENISCUS RPR MEDIAL/LATERAL Left 04/07/2024 Left knee arthroscopy medial meniscus root/posterior horn repair CYSTOSCOPY,URETEROSCOPY,LITHOTRIPSY DILATION & CURETTAGE DX&/THER NONOBSTETRIC 1995 [...] other (mitral valve) Father Cataract Maternal Grandmother Difficulty with anesthesia No Family History Thyroid No Family History Social History Tobacco Use Smoking status: Never Passive exposure: Never Smokeless tobacco: Never Vaping Use Vaping status: Never Used Substance Use Topics Alcohol use: Yes Comment: rare Drug use: No Prior to Admission medications as of 09/27/24 0800 Medication Sig Last Dose Taking diphenhydrAMINE (BENADRYL) 50 mg/mL injection Inject 50 mg intramuscularly every 6 hours as needed (at migraine onset). Max 200mg per day. Max dispense 16 mL per month Yes Syringe with Needle, Disp, 3 mL 23 x 1 1 Each as directed. lamoTRIgine (LAMICTAL) 100 mg tablet Take 1 tablet by mouth two times a day. To start on or after 08/10/2024, after completing titration schedule. Yes atogepant (QULIPTA) 60 mg tablet Take 1 tablet (60 mg) by mouth once daily. Yes Mirtazapine (REMERON) 7.5 mg tablet Take 1 tablet by mouth daily at bedtime. FLUoxetine (PROZAC) 40 mg capsule Take 1 capsule by mouth once daily. Yes ergocalciferol 50,000 unit capsule (VITAMIN D2, DRISDOL) Take 1 capsule by mouth one time a week. Yes levothyroxine (SYNTHROID) 75 mcg tablet Take 1 tablet by mouth daily before breakfast. No medication comments found. ALLERGIES Allergen Reactions Codeine Hives, Swelling swelling-airway/face Morphine Swelling Penicillin G Hives, Swelling Shellfish Derived Anaphylaxis Benadryl [Diphenhyd* Mental Status Change Phenergan [Prometha* Mental Status Change Aspirin Rash Objective PHYSICAL EXAM: VITALS: Resp 18 Ht 5' 1 (1.55m) Wt 135 lb (61.2kg) BMI 25.52 kg/(m^2). VIDEO EXAM: (if completed, performed via video enabled technology) GENERAL: alert and appropriate, in no distress SKIN: no rash noted OROPHARYNX: moist mucus membranes NECK: full ROM, no cervical LNs noted RESPIRATORY: breathing non-labored CHEST: equal chest rise with normal respiratory effort HEART: No JVD, edema or cyanosis noted ABDOMEN: soft and non-tender NEUROLOGIC: no obvious deficit Diagnostic tests reviewed for today's visit: Lab Value Units Date High Low HB 14.8 g/dL 09/26/2024 15.5 11.5 HCT 45.4 % 09/26/2024 46.0 36.0 WBC 6.17 k/uL 09/26/2024 11.00 3.70 PLT 285 k/uL 09/26/2024 400 150 NA 139 mmol/L 09/26/2024 144 136 K 4.3 mmol/L 09/26/2024 5.1 3.7 GLUC 99 mg/dL 09/26/2024 99 74 BUN 14 mg/dL 09/26/2024 21 7 CREAT 0.95 mg/dL 09/26/2024 0.96 0.58 PTSEC 10.0 sec 06/20/2024 13.0 9.7 INR 0.9 no uni* 06/20/2024 1.3 0.9 APTT 28.4 sec 06/20/2024 32.4 23.0 ALT 24 U/L 09/26/2024 38 7 AST 20 U/L 09/26/2024 35 13 TBILI 0.6 mg/dL 09/26/2024 1.3 0.2 TSH 7.390 mIU/L 06/20/2024 4.200 0.270 Instructions Given to Patient: Instructions located in the after visit summary. Patient given verbal and written preop instructions and voices comprehension and compliance. SIGNATURE: Marcy Salinas APRN.CNP PATIENT NAME: Sri Chacon DATE: 09/27/2024 [facility] History and physical note * Marcy Salinas APRN.CNP - 09/27/2024 8:00 AM EST Images from the original note were not included. Center for Per[facility] HISTORY AND PHYSICAL EXAMINATION SERVICE DATE: 09/27/2024 SERVICE TIME: 7:57 AM Patient has been identified by name and date of : Yes Reason for contact: PACC visit Accompanied by: Self This is a virtual visit using [employer]-Lay[employer] Zoom Video Visit. It required patient- provider interaction for the medical decision making as documented below. I have communicated my name and active licensure. The patient's identity and physical location wereverified at the time of this visit. Either the patient or their legal videotape sales representative has been informed of the risks and benefits of and alternatives to treatment through a remote evaluation and consents to proceed with the evaluation remotely. PRIMARY CARE PHYSICIAN: No primary care provider on file. REASON FOR VISIT: Sri Chacon is a 49 year old female who is scheduled for Left - ARTHROSCOPY KNEE SYNOVECTOMY MAJOR- (Possible) Left - MANIPULATION KNEE JOINT UNDER GENERAL ANES at the request of Dr. Irene Randolph for consultation. My final recommendation will be communicated back to the requesting physician by way ofshared medical record or letter. Assessment Other convulsions PNES Assessment: seizures since 2007. Seizures described as aura of feeling lightheaded, weird, tunnelvision, progressing to staring unresponsive, then GTC. Seizures lasting 2-3 minutes and occurring every 3-4 mos. History suggestive of post-traumatic focal epilepsy, with secondarily generalized motor seizures, however, prior EEG and MRI have been normal. Had EEG 06/19- Patient noted to have four typical events without EEG change. Following with neurology- last OV 07/18/2024 States has not had any convulsions or seizure like activity since EEG done 06/19. Hypothyroidism Assessment: Following with endocrinology . Last OV 08/02/2024. Per note... She does not have any symptoms concerning for hypothyroidism, and rather has a combination of non specific symptoms Her TSH levels are also stably elevated over the years. TPO antibodies slightly better than in ut this might not be much beneficial in predicting outcomes at this time She can repeat labs in one year from now Mood disorder (HCC) Assessment: Started on Prozac by psychiatry while admitted 06/19 Migraines Following with neuro. Managed on medication States had chronic daily migraines [place] Activity Status Index: METS: Walk indoors, such as around the house (1.75 METs) Do light work around the house, such as dusting or washing dishes (2.70 METs) Take care of self; that is eating, dressing, bathing, using the toilet (2.75 METs) Walk a block or two on level ground (2.75 METs) Climb a flight of stairs or walk up a hill (5.50 METs) DASI Score: 15.45 Patient is partially dependent (using crutches). Clinical Frailty Scale: 3. Well, with treated comorbid disease STOP-Bang Score: Denies snoring loudly Denies feeling tired, fatigued, or sleepy during the daytime Has not been observed to stop breathing or choking/gasping during sleep Denies having high blood pressure BMI less than or equal to 35 kg/m^2 Patient 50 years old or younger Does not have a large neck Non-male patient STOP-Bang Score: 0 [id number] Score: Age: <65 Sex: female CHF history: No Hypertension history: No Stroke/TIA/thromboembolism history: No Vascular disease history: No Diabetes history: No [id number] Score: 1 ANESTHESIA FINDINGS: Intubation History: No history of difficult intubation Significant Anesthesia Considerations: per surgeon note- Needs long acting post op block, Dr. Dia informed none Airway History: No history of difficult airway I - PHYSICAL EVALUATION AIRWAY Patient intubated: No. Tracheostomy tube not present Mallampati: II. TM distance: >3 FB. Neck ROM: full ROM without neurological symptoms. Mouth opening: adequate. Short neck: no. Thick neck: no DENTAL Dentures, upper: partial. II - ANESTHESIA PLAN Anesthetic plan additional comments: *PACC/TCI - anesthesia choice. Beta Lyndsey Monitoring Plan Post Procedure Analgesic Plan Prepared for surgery: This patient is optimally prepared for surgery. CONSULTS: Patient does not require consults for optimization at this time. The Following Tests/Procedures Have Been Initiated: No orders of the defined types were placed in this encounter. Planned Anesthetic: Per anesthesia choice Subjective CHIEF COMPLAINT: Pre-op visit HPI: 49 year old female with chronic left knee pain and instability. S/p Left knee arthroscopy, medial meniscus root /posterior horn repair on 04/07/24 and then had a manipulation on 06/30/2024 with no success. Scheduled for above procedure REVIEW OF SYSTEMS: PAIN ASSESSMENT: General: No weight loss, malaise or fevers. Neuro: Negative for TIA's + PNES + migraines- daily Respiratory: No history of current cough or dyspnea, or pneumonia in the past 6 weeks. No history of respiratory/pulmonary symptoms or problems. Cardiovascular: No history of HTN requiring medication, no history of angina, CHF, IA, cardiac surgery or stents. Denies rest pain, gangrene or revascularization/amputation for PVD. No history of cardiovascular symptoms or problems. GI: No history of GI symptoms or problems. No history of esophageal varices, recent ascites, or ETOH greater than 2 drinks per day. 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 : Denies, No LMP recorded. Patient has had a hysterectomy. Endocrine: Hypothyroidism Hematology: No history of bleeding or clotting disorder. Pt is not taking anti- coagulation or platelet medications. No history of hematological symptoms or problems. Oncology: No history of CA metastasis, chemo within 30 days, or radiotherapy within 90 days. Has not lost 10% of body wt in 6 months. No history of oncological symptoms or problems. Implanted Devices: No Psych: Anxiety, Depression Marijuana use: No Musculoskeletal: See HPI Skin: Negative for lesions, rash and itching. The patient has the following: ACTIVE PROBLEM LIST Asthma Sprain of Right Ankle Migraine Other Convulsions Nonrheumatic Mitral (Valve) Prolapse Essential Hypertension Depression Chronic Pain of Left Knee Tear of Medial Meniscus of Left Knee, Current Seizure-Like Activity (Hcc) Psychogenic Nonepileptic Seizure Mood Disorder (Hcc) Hypothyroidism Acute Medial Meniscus Tear of Left Knee Covid Immunization Dates Current Care Gaps Covid-19 Vaccine ( season) Overdue since 04/10/2024 12/24/2020 Imm Admin: COVID-19 original vaccine, age 12+ yr, monovalent (PFIZER- BIONTECH - PURPLE TOP) 12/03/2020 Imm Admin: COVID-19 original vaccine, age 12+ yr, monovalent (PFIZER- BIONTECH - PURPLE TOP) PAST MEDICAL HISTORY Diagnosis Date Calculus of kidney 07/03/2006 Calculus of ureter 03/16/2008 Convulsions (HCC) 02/01/2013 Depression Essential hypertension 01/01/2018 Gallstone 12/25/2017 Hydronephrosis 03/16/2008 Hypothyroidism IBS (irritable bowel syndrome) Lactose intolerance in adult 01/21/2018 Migraine 02/01/2013 Nonrheumatic mitral (valve) prolapse 06/15/2017 Seizure disorder (HCC) last 04/2021 Traumatic brain injury (HCC) Unspecified asthma(493.90) Unspecified ectopic without intrauterine Ectopic PAST SURGICAL HISTORY Procedure Laterality Date ARTHROSCOPY KNEE DIAGNOSTIC W/WO SYNOVIAL BX SPX Left 06/30/2024 Dr. Mccracken ARTHROSCOPY KNEE W/MENISCUS RPR MEDIAL/LATERAL Left 04/07/2024 Left knee arthroscopy medial meniscus root/posterior horn repair CYSTOSCOPY,URETEROSCOPY,LITHOTRIPSY DILATION & CURETTAGE DX&/THER NONOBSTETRIC 1995 [...] other (mitral valve) Father Cataract Maternal Grandmother Difficulty with anesthesia No Family History Thyroid No Family History Social History Tobacco Use Smoking status: Never Passive exposure: Never Smokeless tobacco: Never Vaping Use Vaping status: Never Used Substance Use Topics Alcohol use: Yes Comment: rare Drug use: No Prior to Admission medications as of 09/27/24 0800 Medication Sig Last Dose Taking diphenhydrAMINE (BENADRYL) 50 mg/mL injection Inject 50 mg intramuscularly every 6 hours as needed (at migraine onset). Max 200mg per day. Max dispense 16 mL per month Yes Syringe with Needle, Disp, 3 mL 23 x 1 1 Each as directed. lamoTRIgine (LAMICTAL) 100 mg tablet Take 1 tablet by mouth two times a day. To start on or after 08/10/2024, after completing titration schedule. Yes atogepant (QULIPTA) 60 mg tablet Take 1 tablet (60 mg) by mouth once daily. Yes Mirtazapine (REMERON) 7.5 mg tablet Take 1 tablet by mouth daily at bedtime. FLUoxetine (PROZAC) 40 mg capsule Take 1 capsule by mouth once daily. Yes ergocalciferol 50,000 unit capsule (VITAMIN D2, DRISDOL) Take 1 capsule by mouth one time a week. Yes levothyroxine (SYNTHROID) 75 mcg tablet Take 1 tablet by mouth daily before breakfast. No medication comments found. ALLERGIES Allergen Reactions Codeine Hives, Swelling swelling-airway/face Morphine Swelling Penicillin G Hives, Swelling Shellfish Derived Anaphylaxis Benadryl [Diphenhyd* Mental Status Change Phenergan [Prometha* Mental Status Change Aspirin Rash Objective PHYSICAL EXAM: VITALS: Resp 18 Ht 5' 1 (1.55m) Wt 135 lb (61.2kg) BMI 25.52 kg/(m^2). VIDEO EXAM: (if completed, performed via video enabled technology) GENERAL: alert and appropriate, in no distress SKIN: no rash noted OROPHARYNX: moist mucus membranes NECK: full ROM, no cervical LNs noted RESPIRATORY: breathing non-labored CHEST: equal chest rise with normal respiratory effort HEART: No JVD, edema or cyanosis noted ABDOMEN: soft and non-tender NEUROLOGIC: no obvious deficit Diagnostic tests reviewed for today's visit: Lab Value Units Date High Low HB 14.8 g/dL 09/26/2024 15.5 11.5 HCT 45.4 % 09/26/2024 46.0 36.0 WBC 6.17 k/uL 09/26/2024 11.00 3.70 PLT 285 k/uL 09/26/2024 400 150 NA 139 mmol/L 09/26/2024 144 136 K 4.3 mmol/L 09/26/2024 5.1 3.7 GLUC 99 mg/dL 09/26/2024 99 74 BUN 14 mg/dL 09/26/2024 21 7 CREAT 0.95 mg/dL 09/26/2024 0.96 0.58 PTSEC 10.0 sec 06/20/2024 13.0 9.7 INR 0.9 no uni* 06/20/2024 1.3 0.9 APTT 28.4 sec 06/20/2024 32.4 23.0 ALT 24 U/L 09/26/2024 38 7 AST 20 U/L 09/26/2024 35 13 TBILI 0.6 mg/dL 09/26/2024 1.3 0.2 TSH 7.390 mIU/L 06/20/2024 4.200 0.270 Instructions Given to Patient: Instructions located in the after visit summary. Patient given verbal and written preop instructions and voices comprehension and compliance. SIGNATURE: Marcy Salinas APRN.CNP PATIENT NAME: Sri Chacon DATE: 09/27/2024 [facility]02-18-2025 History and physical note* Maryc Salinas APRN.CNP - 09/27/2024 8:00 AM EST Images from the original note were not included. [facility] Pre[facility]Anesthesia [facility] HISTORY AND PHYSICAL EXAMINATION SERVICE DATE: 09/27/2024 SERVICE TIME: 7:57 AM Patient has been identified by name and date of : Yes Reason for contact: PACC visit Accompanied by: Self This is a virtual visit using Am[employer] Video Visit. It required patient- provider interaction for the medical decision making as documented below. I have communicated my name and active licensure. The patient's identity and physical location wereverified at the time of this visit. Either the patient or their legal videotape sales representative has been informed of the risks and benefits of and alternatives to treatment through a remote evaluation and consents to proceed with the evaluation remotely. PRIMARY CARE PHYSICIAN: No primary care provider on file. REASON FOR VISIT: Sri Chacon is a 49 year old female who is scheduled for Left - ARTHROSCOPY KNEE SYNOVECTOMY MAJOR- (Possible) Left - MANIPULATION KNEE JOINT UNDER GENERAL ANES at the request of Dr. Irene Randolph for consultation. My final recommendation will be communicated back to the requesting physician by way ofshared medical record or letter. Assessment Other convulsions PNES Assessment: seizures since 2007. Seizures described as aura of feeling lightheaded, weird, tunnelvision, progressing to staring unresponsive, then GTC. Seizures lasting 2-3 minutes and occurring every 3-4 mos. History suggestive of post-traumatic focal epilepsy, with secondarily generalized motor seizures, however, prior EEG and MRI have been normal. Had EEG 06/19- Patient noted to have four typical events without EEG change. Following with neurology- last OV 07/18/2024 States has not had any convulsions or seizure like activity since EEG done 06/19. Hypothyroidism Assessment: Following with endocrinology . Last OV 08/02/2024. Per note... She does not have any symptoms concerning for hypothyroidism, and rather has a combination of non specific symptoms Her TSH levels are also stably elevated over the years. TPO antibodies slightly better than in ut this might not be much beneficial in predicting outcomes at this time She can repeat labs in one year from now Mood disorder (HCC) Assessment: Started on Prozac by psychiatry while admitted 06/19 Migraines Following with neuro. Managed on medication States had chronic daily migraines [place] Activity Status Index: METS: Walk indoors, such as around the house (1.75 METs) Do light work around the house, such as dusting or washing dishes (2.70 METs) Take care of self; that is eating, dressing, bathing, using the toilet (2.75 METs) Walk a block or two on level ground (2.75 METs) Climb a flight of stairs or walk up a hill (5.50 METs) DASI Score: 15.45 Patient is partially dependent (using crutches). Clinical Frailty Scale: 3. Well, with treated comorbid disease STOP-Bang Score: Denies snoring loudly Denies feeling tired, fatigued, or sleepy during the daytime Has not been observed to stop breathing or choking/gasping during sleep Denies having high blood pressure BMI less than or equal to 35 kg/m^2 Patient 50 years old or younger Does not have a large neck Non-male patient STOP-Bang Score: 0 [id number] Score: Age: <65 Sex: female CHF history: No Hypertension history: No Stroke/TIA/thromboembolism history: No Vascular disease history: No Diabetes history: No [id number] Score: 1 ANESTHESIA FINDINGS: Intubation History: No history of difficult intubation Significant Anesthesia Considerations: per surgeon note- Needs long acting post op block, Dr. Dia informed none Airway History: No history of difficult airway I - PHYSICAL EVALUATION AIRWAY Patient intubated: No. Tracheostomy tube not present Mallampati: II. TM distance: >3 FB. Neck ROM: full ROM without neurological symptoms. Mouth opening: adequate. Short neck: no. Thick neck: no DENTAL Dentures, upper: partial. II - ANESTHESIA PLAN Anesthetic plan additional comments: *PACC/TCI - anesthesia choice. Beta Lyndsey Monitoring Plan Post Procedure Analgesic Plan Prepared for surgery: This patient is optimally prepared for surgery. CONSULTS: Patient does not require consults for optimization at this time. The Following Tests/Procedures Have Been Initiated: No orders of the defined types were placed in this encounter. Planned Anesthetic: Per anesthesia choice Subjective CHIEF COMPLAINT: Pre-op visit HPI: 49 year old female with chronic left knee pain and instability. S/p Left knee arthroscopy, medial meniscus root /posterior horn repair on 04/07/24 and then had a manipulation on 06/30/2024 with no success. Scheduled for above procedure REVIEW OF SYSTEMS: PAIN ASSESSMENT: General: No weight loss, malaise or fevers. Neuro: Negative for TIA's + PNES + migraines- daily Respiratory: No history of current cough or dyspnea, or pneumonia in the past 6 weeks. No history of respiratory/pulmonary symptoms or problems. Cardiovascular: No history of HTN requiring medication, no history of angina, CHF, IA, cardiac surgery or stents. Denies rest pain, gangrene or revascularization/amputation for PVD. No history of cardiovascular symptoms or problems. GI: No history of GI symptoms or problems. No history of esophageal varices, recent ascites, or ETOH greater than 2 drinks per day. 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 : Denies, No LMP recorded. Patient has had a hysterectomy. Endocrine: Hypothyroidism Hematology: No history of bleeding or clotting disorder. Pt is not taking anti- coagulation or platelet medications. No history of hematological symptoms or problems. Oncology: No history of CA metastasis, chemo within 30 days, or radiotherapy within 90 days. Has not lost 10% of body wt in 6 months. No history of oncological symptoms or problems. Implanted Devices: No Psych: Anxiety, Depression Marijuana use: No Musculoskeletal: See HPI Skin: Negative for lesions, rash and itching. The patient has the following: ACTIVE PROBLEM LIST Asthma Sprain of Right Ankle Migraine Other Convulsions Nonrheumatic Mitral (Valve) Prolapse Essential Hypertension Depression Chronic Pain of Left Knee Tear of Medial Meniscus of Left Knee, Current Seizure-Like Activity (Hcc) Psychogenic Nonepileptic Seizure Mood Disorder (Hcc) Hypothyroidism Acute Medial Meniscus Tear of Left Knee Covid Immunization Dates Current Care Gaps Covid-19 Vaccine ( season) Overdue since 04/10/2024 12/24/2020 Imm Admin: COVID-19 original vaccine, age 12+ yr, monovalent (PFIZER- BIONTECH - PURPLE TOP) 12/03/2020 Imm Admin: COVID-19 original vaccine, age 12+ yr, monovalent (PFIZER- BIONTECH - PURPLE TOP) PAST MEDICAL HISTORY Diagnosis Date Calculus of kidney 07/03/2006 Calculus of ureter 03/16/2008 Convulsions (HCC) 02/01/2013 Depression Essential hypertension 01/01/2018 Gallstone 12/25/2017 Hydronephrosis 03/16/2008 Hypothyroidism IBS (irritable bowel syndrome) Lactose intolerance in adult 01/21/2018 Migraine 02/01/2013 Nonrheumatic mitral (valve) prolapse 06/15/2017 Seizure disorder (HCC) last 04/2021 Traumatic brain injury (HCC) Unspecified asthma(493.90) Unspecified ectopic without intrauterine Ectopic PAST SURGICAL HISTORY Procedure Laterality Date ARTHROSCOPY KNEE DIAGNOSTIC W/WO SYNOVIAL BX SPX Left 06/30/2024 Dr. Mccracken ARTHROSCOPY KNEE W/MENISCUS RPR MEDIAL/LATERAL Left 04/07/2024 Left knee arthroscopy medial meniscus root/posterior horn repair CYSTOSCOPY,URETEROSCOPY,LITHOTRIPSY DILATION & CURETTAGE DX&/THER NONOBSTETRIC 1995 [...] other (mitral valve) Father Cataract Maternal Grandmother Difficulty with anesthesia No Family History Thyroid No Family History Social History Tobacco Use Smoking status: Never Passive exposure: Never Smokeless tobacco: Never Vaping Use Vaping status: Never Used Substance Use Topics Alcohol use: Yes Comment: rare Drug use: No Prior to Admission medications as of 09/27/24 0800 Medication Sig Last Dose Taking diphenhydrAMINE (BENADRYL) 50 mg/mL injection Inject 50 mg intramuscularly every 6 hours as needed (at migraine onset). Max 200mg per day. Max dispense 16 mL per month Yes Syringe with Needle, Disp, 3 mL 23 x 1 1 Each as directed. lamoTRIgine (LAMICTAL) 100 mg tablet Take 1 tablet by mouth two times a day. To start on or after 08/10/2024, after completing titration schedule. Yes atogepant (QULIPTA) 60 mg tablet Take 1 tablet (60 mg) by mouth once daily. Yes Mirtazapine (REMERON) 7.5 mg tablet Take 1 tablet by mouth daily at bedtime. FLUoxetine (PROZAC) 40 mg capsule Take 1 capsule by mouth once daily. Yes ergocalciferol 50,000 unit capsule (VITAMIN D2, DRISDOL) Take 1 capsule by mouth one time a week. Yes levothyroxine (SYNTHROID) 75 mcg tablet Take 1 tablet by mouth daily before breakfast. No medication comments found. ALLERGIES Allergen Reactions Codeine Hives, Swelling swelling-airway/face Morphine Swelling Penicillin G Hives, Swelling Shellfish Derived Anaphylaxis Benadryl [Diphenhyd* Mental Status Change Phenergan [Prometha* Mental Status Change Aspirin Rash Objective PHYSICAL EXAM: VITALS: Resp 18 Ht 5' 1 (1.55m) Wt 135 lb (61.2kg) BMI 25.52 kg/(m^2). VIDEO EXAM: (if completed, performed via video enabled technology) GENERAL: alert and appropriate, in no distress SKIN: no rash noted OROPHARYNX: moist mucus membranes NECK: full ROM, no cervical LNs noted RESPIRATORY: breathing non-labored CHEST: equal chest rise with normal respiratory effort HEART: No JVD, edema or cyanosis noted ABDOMEN: soft and non-tender NEUROLOGIC: no obvious deficit Diagnostic tests reviewed for today's visit: Lab Value Units Date High Low HB 14.8 g/dL 09/26/2024 15.5 11.5 HCT 45.4 % 09/26/2024 46.0 36.0 WBC 6.17 k/uL 09/26/2024 11.00 3.70 PLT 285 k/uL 09/26/2024 400 150 NA 139 mmol/L 09/26/2024 144 136 K 4.3 mmol/L 09/26/2024 5.1 3.7 GLUC 99 mg/dL 09/26/2024 99 74 BUN 14 mg/dL 09/26/2024 21 7 CREAT 0.95 mg/dL 09/26/2024 0.96 0.58 PTSEC 10.0 sec 06/20/2024 13.0 9.7 INR 0.9 no uni* 06/20/2024 1.3 0.9 APTT 28.4 sec 06/20/2024 32.4 23.0 ALT 24 U/L 09/26/2024 38 7 AST 20 U/L 09/26/2024 35 13 TBILI 0.6 mg/dL 09/26/2024 1.3 0.2 TSH 7.390 mIU/L 06/20/2024 4.200 0.270 Instructions Given to Patient: Instructions located in the after visit summary. Patient given verbal and written preop instructions and voices comprehension and compliance. SIGNATURE: Marcy Salinas APRN.CNP PATIENT NAME: Sri Chacon DATE: 09/27/2024 [facility] Instructions* Patient Instructions* Marcy Salinas APRN.SPOOL TENDER - 09/27/2024 7:54 AM EST Images from the original note were not included. [facility] PATIENT PREOPERATIVE INSTRUCTIONS Irene Randolph,* scheduled you for your procedure at this surgery center: : [phone] -- [address] [facility] [address]. Please read below carefully for your personalized instructions. Arrival Time for Surgery: - The Surgery Center or hospital where you are having surgery will call the afternoon before surgery (or Thursday for Thursday surgery) with a scheduled arrival time. - If you have not heard by 4 pm, please contact the surgery center above. Please be aware that emergency situations arise, which may delay or change your surgical time. If this happens, we will notify you as soon as possible and regret any inconvenience. Dietary Restrictions: - No solid food after midnight. - You may have 12 ounces of clear liquids (water, clear juices such as apple juice or gatorade, carbonated beverages, clear tea, black coffee, jello) until 2 hours before scheduled arrival at facility. No milk or cream No pulp juices Medications: Unless instructed differently below, stay on all of your medications until your surgery. Approved medications to take the morning of surgery with a sip of water: Levothyroxine, Fluoxetine,Lamotrigine If you are currently using a [id number] injectable or oral medication for diabetes or weight loss such as Dulaglutide (Trulicity), Exenatide (Byetta, Bydureon), Liraglutide (Victoza, Saxenda), Semaglutide (Ozempic, Wegovy, Rybelsus), or Tirzepatide (Mounjaro), the medicine should be stopped at least 7 days before surgery. These medicines can cause food to remain in your stomach for a very longtime and increase the risks from surgery and anesthesia. Not stopping the medication for a long enough time may result in your surgery being rescheduled. If you start any new medications after today's visit, please contact the surgeon's office. Blood Thinning Medications: - Stop NSAIDS (Ibuprofen, Advil, Aleve, Motrin, Celebrex, Mobic, etc.) 7 days before surgery, as directed by your surgeon. - Stop Aspirin 7 days before surgery, as directed by your surgeon. - Stop ALL herbal and dietary supplements 7 days before surgery. - You may take Tylenol (Acetaminophen) or any of your pain medications that do not contain aspirin or NSAIDS as needed. Important Reminders: - If you use CPAP/BIPAP, bring the machine with you to the surgery center. - If you are prescribed inhalers for breathing, continue using them. - Candy, mints, and tobacco products are NOT permitted the morning of surgery. - Hearing aids, dentures and glasses may be worn the morning of surgery. - NO jewelry, body piercings, makeup, hairpins or contacts are to be worn the day of surgery. If you develop symptoms such as a fever, cold, or flu, or have other changes to your health within TWO DAYS of scheduled surgery or the morning of surgery, please contact the surgery center above. Personal Belongings: -Please have photo ID and insurance cards. -If you do not have a copy of advance directives on file with us, please bring a copy with you on the day of surgery. - Leave ALL valuables and money at home or with family members. For Outpatient Procedures: - YOU MUST HAVE A RESPONSIBLE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 Sylvia Bass [facility]01-27-[facility] Miscellaneous Notes* Telephone Encounter - Sylvia Bass - 09/05/2024 1:49 PM EST Patient has been scheduled for 09/22/24. Not a new patient, last seen February 2022. Sylvia Bass * Telephone Encounter - Patience Choudhary - 09/05/2024 1:21 PM EST ----- Message from Joya Sainz sent at 09/05/2024 11:12 AM EST ----- Regarding: Spine and Pain/Consult to Pain Mgt/[place] area Contact: Subject Line Format: Orthopedics / [Provider Name or Open & Body Part] / [Issue] Patient has been identified by name and Date of (Y/N): Y Patient: Sri Chacon Date of : 1975 Previous Provider Seen: Dr Ricci 09/2021 Diagnosis/Reason For Visit: Chronic Migraine Reason for the call/escalation: can not find appt. in [facility], Patient said she was told to schedule with Jimena. Patient has a consult to Pain Management but would like seen in [facility]. If reason for call/escalation is discharge from ED/ER or Hospital, which facility was the patient seen at: N Was an appointment scheduled (Y/N): N Person calling if other than patient: Pt Return call to if other than patient: Pt Best contact number: [phone] Thank you, Joya Weaver September 05, 2024 11:14 AM documented in this encounterOhio[facility]01-27-2025 Telephone encounter Note * Telephone Encounter - Patience Choudhary - 09/05/2024 1:21 PM EST ----- Message from Joya Sainz sent at 09/05/2024 11:12 AM EST ----- Regarding: Spine and Pain/Consult to Pain t/[facility] Contact: Subject Line Format: Orthopedics / [Provider Name or Open & Body Part] / [Issue] Patient has been identified by name and Date of (Y/N): Y Patient: Sri Chacon Date of : 1975 Previous Provider Seen: Dr Ricci 09/2021 Diagnosis/Reason For Visit: Chronic Migraine Reason for the call/escalation: can not find appt. in [facility], Patient said she was told to schedule with Jimena. Patient has a consult to Pain Management but would like seen in [facility]. If reason for call/escalation is discharge from ED/ER or Hospital, which facility was the patient seen at: N Was an appointment scheduled (Y/N): N Person calling if other than patient: Pt Return call to if other than patient: Pt Best contact number: [phone] Thank you, Joya Weaver September 05, 2024 11:14 AM [facility]01-[facility] Telephone encounter Note* Telephone Encounter - Lay Mcintosh, RN - 09/01/2024 12:38 PM EST Phoned Leia at the pharmacy. States patients son has picked up the bendaryl for her on 08/26, 08/28, 08/29, 09/01 getting 4 vials each time. Pharmacist states she is going to hold off on filling the medication for the patient at this time. Secure chat sent to Dr. Bean. [facility] Telephone encounter Note* Telephone Encounter - Bonnie Talavera - 09/01/2024 12:20 PM EST Per pharmacist, Leia at [facility] pharmacy at [phone] patient at filled diphenhydrAMINE (BENADRYL) 50 mg/mL injection on 08/26, 08/28, 08/29 and 09/01. Is she okay to take it this often? [facility] History of Present illness Narrative* Margarita Chao - 08/31/2024 3:38 PM EST POPULATION HEALTH NAVIGATION OUTREACH Action/[facility] Support: Called pt to schedule an appt in Pain Management. Lvm for pt to call [phone] for scheduling. Reason for Outreach Care Gap/HCC or Scheduling Wellness Visits Care Gaps due: N/A Patient Contacted: Unable or unnecessary to reach patient: Left message Q-Layert message sent Navigation Signature: Margarita Chao August 31, 2024 3:38 PM documented in this encounterOhiohealth Dublin [facility]01-22-2025 [facility] History of Present illness Narrative* Ronnie Pettit, PT - 08/31/2024 2:19 PM EST Images from the original note were not included. Episode Visit Count: 3 Therapist That Will Accept/Oversee The Plan Of Care: Ronnie Pettit PT. Start of Care Date: 07/21/24 Onset Date: 09/19/23 Plan of Care Certification Date: 09/02/24 Next Certification Due Date: 10/07/24 REHABILITATION AND SPORTS THERAPY PHYSICAL THERAPY PROGRESS REPORT PLAN OF CARE UPDATE: Assessment: Sri Chacon demonstrates improvements in improved weightbearing through left lower extremity during ambulation. Was improving L Knee Ext A/AA/PROM, however from absence last two weeks, she did worseand loss all progress made prior to previous appointments. No improvement in L Knee Flexion ROM, pain during gait, overall pain severity & frequency, sleeping tolerance. States she is in pain 24/7 and rates at 10/10 Numeric Pain Rating Scale. Pain during HEP, however states compliance. Currently, measured at 0-10-82. 10 degree contracture and loss of full knee extension with 82 degrees of knee flexion (passive). The patient has very slowly progressed toward goals. Patient continues to present with impairments in ADL's, gait, independence in exercise, joint mobility, overall function, range of motion, soft tissue healing, strength, symptom management, and tissue tenderness that interfere with . Current progn osis is Poor due to: clinical presentation, chronic nature of impairments, decreased motivation, limited tolerance to activity . The patient will benefit from continued skilled therapy services to meet the updated goals for thisplan of care as noted below. Updated: 08/31/24. Goals for Episode of Care: established 07/21/24 Patient reported outcome of physical function will increase T-score by a minimum 5 points. (NOT MET) [place] in home exercise program. (Reports compliance - per patient) Patient will decrease pain rating by 2 points to meet minimal clinical important difference for numeric pain rating scale. (NOT MET) Increase ROM of L Knee to 0-5-120 degrees for improvement in ambulation ability & functional activities. ((Progressing Towards, Not Met Currently) Increased strength of LLE to 5/5 MMT for improved ADLs and ability for return to work. ((Progressing Towards, Not Met Currently) Normalize Gait without Assistive Device. ((Progressing Towards, Not Met Currently) Patient Goals: Alleviate Pain, Improve Function. Time Frame for Goals and Treatment : 10/19/24 Planned Interventions, Frequency, and Duration: 2x/week, 3 weeks Total Number of Visits Planned: 5 Patient to be seen for Therapeutic exercise (73226), Neuromuscular re-education (19889), Manual therapy (71272), Therapeutic activities (15737), Self-residential management (56096), Patient/Family/Caregiver Education, Gait Training (92498) PLAN FOR NEXT VISIT: A/AA/PROM for L Knee. SUBJECTIVE: 62 days s/p Left knee manipulation. Patient reports Dr. Randolph wants to do another manipulation to straighten & bend the knee. Another visit on 09/21/24. Patient has been unable tocome to appointments recently due to her rides showing up late per report. Pain: Pain Pain Level: 10 Pain Location: Knee - Left Description: Aching, Throbbing Post Treatment Pain Post Treatment Pain Level: No Change Post Treatment Pain Location: Knee - Left PROMIS Scales 08/14/2024 07/20/2024 2024 Higher is Better Phys Func - T Score 19 (severe dysfunction) 23 (severe dysfunction) 19 (severe dysfunction) Phys Func - Percentile 0 0 0 Self-Eff Symptom - T Score 32 (Low) 35 (Low) 36 (Low) Self-Eff Symptom - Percentile 4 7 8 T-scores: mean of general population = 50. 5 points is clinically meaningfully difference Percentiles provide an indication of how the patient's score ranks in relation to the general population. Higher percentile rankings indicate better function/quality of life. 50th percentile is the average of the general population and indicates half of respondents had a worse score. OBJECTIVE MEASURES WITH LEVEL OF FUNCTION: LE AROM L Knee Extension: -10 Degrees (-15 at start of session, -10 (best) after exercises.) L Knee Flexion: 80 Degrees (Supine AAROM with strap.) LE PROM L Knee Extension: -8 Degrees L Knee Flexion: 82 Degrees Gait Weight Bearing Status: FWB Gait Device: Crutches Gait Deviations Left Lower Extremity: Foot clearance decreased, Stance time decreased, Weight bearing decreased Gait Observation: Use of B Crutches. Slight trunk lean to R for decrease WB on Left. TREATMENT: Therapeutic Exercise: 1: Re-assessment per above, discussion on goals and patient progress. 2: Supine PROM Knee Flexion/Extension: 2x10 each. 3: L Heel SLides with R Foot OP: 2x15. (w/ strap) 4: L Quad Sets: 3x10, 5-sec holds. On 1/2 foam roller. (5# cuff added on top of knee) 5: L Knee Ext Stretch: x3min, 5#cuff, on full foam roller. 6: L SLR: 3x10. Skilled Intervention: Patient was educated in proper exercise technique and purpose for exercises. Skilled judgment was used in selection of appropriate interventions. Billing Therapeutic Exercise Treatment Minutes: 40 Skilled Treatment Time Minutes (timed and untimed codes): 40 Total Session Time (minutes): 40 Session Start Time : 1415 Session Stop Time : 1455 Ronnie Pettit PT documented in this encounterOhio[facility]01-20-2025 Telephone encounter Note * Telephone Encounter - Kelsie Ballesteros - 08/29/2024 1:39 PM EST Patient called stating that last week [facility] did not have the correct size syringe/needles so they gave her larger ones which did not work for her. She needs a new script sent to [facility]. [facility]01-[facility] Miscellaneous Notes* Telephone Encounter - Kelsie Ballesteros - 08/29/2024 1:39 PM EST Patient called stating that last week [facility] did not have the correct size syringe/needles so they gave her larger ones which did not work for her. She needs a new script sent to [facility]. documented in this encounterOhio[facility]01-16-2025 Instructions* Patient Instructions* Yesica Bean MD - 08/25/2024 10:07 AM EST QULIPTA What is this drug used for? It is used to prevent migraine headaches. What do I need to tell my doctor BEFORE I take this drug? If you are allergic to this drug; any part of this drug; or any other drugs, foods, or substances. Tell your doctor about the allergy and what signs you had. If you have any of these health problems: Kidney disease or liver disease. This is not a list of all drugs or health problems that interact with this drug. Tell your doctor and pharmacist about all of your drugs (prescription or OTC, natural products, vitamins) and health problems. You must check to make sure that it is safe for you to take this drug with all of your drugs and health problems. Do not start, stop, or change the dose of any drug withoutchecking with your doctor. What are some things I need to know or do while I take this drug? Tell all of your health care providers that you take this drug. This includes your doctors, nurses,pharmacists, and dentists. If you drink grapefruit juice or eat grapefruit often, talk with your doctor. Many other drugs interact with this drug. If you are taking this drug to treat chronic migraine, some drugs must not be taken with this drug. Be sure your doctor and pharmacist know all the other drugs you take. Tell your doctor if you are , plan on getting , or are breast- feeding. You will need to talk about the benefits and risks to you and the baby. What are some side effects that I need to call my doctor about right away? WARNING/CAUTION: Even though it may be rare, some people may have very bad and sometimes deadly side effects when taking a drug. Tell your doctor or get medical help right away if you have any of thefollowing signs or symptoms that may be related to a very bad side effect: Signs of an allergic reaction, like rash; hives; itching; red, swollen, blistered, or peeling skin with or without fever; wheezing; tightness in the chest or throat; trouble breathing, swallowing, ortalking; unusual hoarseness; or swelling of the mouth, face, lips, tongue, or throat. What are some other side effects of this drug? All drugs may cause side effects. However, many people have no side effects or only have minor sideeffects. Call your doctor or get medical help if any of these side effects or any other side effects bother you or do not go away: Upset stomach. Constipation. Feeling sleepy. Feeling tired or weak. These are not all of the side effects that may occur. If you have questions about side effects, call your doctor. Call your doctor for medical advice about side effects. You may report side effects to your national health agency. How is this drug best taken? Use this drug as ordered by your doctor. Read all information given to you. Follow all instructionsclosely. Take with or without food. If you are on dialysis and are taking this drug on the day you get dialysis, take it after your dialysis. If you have questions, talk with your doctor. What do I do if I miss a dose? Take a missed dose as soon as you think about it. If it is close to the time for your next dose, skip the missed dose and go back to your normal time. Do not take 2 doses at the same time or extra doses. How do I store and/or throw out this drug? Store at room temperature in a dry place. Do not store in a bathroom. Keep all drugs in a safe place. Keep all drugs out of the reach of children and pets. Throw away unused or drugs. Do not flush down a toilet or pour down a drain unless you are told to do so. Check with your pharmacist if you have questions about the best way to throw out drugs. There may be drug take-back programs in your area. BENADRYL What do I need to tell my doctor BEFORE I take this drug? If you are allergic to this drug; any part of this drug; or any other drugs, foods, or substances. Tell your doctor about the allergy and what signs you had. If you are breast-feeding or plan to breast-feed. You may need to avoid breast-feeding. If the patient is a premature baby or a . Do not give this form of this drug to a premature baby or a . This is not a list of all drugs or health problems that interact with this drug. Tell your doctor and pharmacist about all of your drugs (prescription or OTC, natural products, vitamins) and health problems. You must check to make sure that it is safe for you to take this drug with all of your drugs and health problems. Do not start, stop, or change the dose of any drug withoutchecking with your doctor. What are some things I need to know or do while I take this drug? All products: Tell all of your health care providers that you take this drug. This includes your doctors, nurses,pharmacists, and dentists. Do not take more than what your doctor told you to take. Taking more than you are told may raise your chance of severe side effects. Do not take this drug for longer than you were told by your doctor. Avoid driving and doing other tasks or actions that call for you to be alert until you see how thisdrug affects you. Do not use with other products that have ?i?h??h?dr?mi?e. Avoid drinking alcohol while taking this drug. Talk with your doctor before you use marijuana, other forms of cannabis, or prescription or OTC drugs that may slow your actions. If you are 60 or older, use this drug with care. You could have more side effects. If the patient is a child, use this drug with care. The risk of some side effects may be higher in children. Tell your doctor if you are or plan on getting . You will need to talk about the benefits and risks of using this drug while you are . Products for sleep problems: This drug is not for use in children younger than 12 years of age. However, the doctor may decide the benefits of taking this drug outweigh the risks. If your child has been given this drug, ask the doctor for information about the benefits and risks. Talk with the doctor if you have questions about giving this drug to your child. All other products: Different brands of this drug may be for use in different ages of children. Talk with the doctor before giving this drug to a child. Do not use to make a child sleepy. Talk with the doctor. What are some side effects that I need to call my doctor about right away? WARNING/CAUTION: Even though it may be rare, some people may have very bad and sometimes deadly side effects when taking a drug. Tell your doctor or get medical help right away if you have any of thefollowing signs or symptoms that may be related to a very bad side effect: Signs of an allergic reaction, like rash; hives; itching; red, swollen, blistered, or peeling skin with or without fever; wheezing; tightness in the chest or throat; trouble breathing, swallowing, ortalking; unusual hoarseness; or swelling of the mouth, face, lips, tongue, or throat. Severe dizziness or passing out. Change in balance. Feeling less alert. What are some other side effects of this drug? All drugs may cause side effects. However, many people have no side effects or only have minor sideeffects. Call your doctor or get medical help if any of these side effects or any other side effects bother you or do not go away: Feeling dizzy or sleepy. Thickening of mucus in nose or throat. Feeling nervous and excitable. Upset stomach or throwing up. These are not all of the side effects that may occur. If you have questions about side effects, call your doctor. Call your doctor for medical advice about side effects. You may report side effects to your national health agency. How is this drug best taken? Use this drug as ordered by your doctor. Read all information given to you. Follow all instructionsclosely. All oral products: Take with or without food. Take with food if it causes an upset stomach. Products for sleep problems: Take this drug at bedtime. Chewable tablets and oral-disintegrating tablets: Chew well or let dissolve in the mouth. If you have phenylketonuria (PKU), talk with your doctor. Some products have phenylalanine. Oral strip: Place oral strip on your tongue and let dissolve. All liquid products: Measure liquid doses carefully. Use the measuring device that comes with this drug. If there is none, ask the pharmacist for a device to measure this drug. If you have phenylketonuria (PKU), talk with your doctor. Some products have phenylalanine. Liquid (suspension): Shake well before use. Injection: It is given as a shot into a muscle or vein. This drug may cause tissue damage if it is given into the skin or into the fatty part under the skin. Talk with the doctor. What do I do if I miss a dose? Products for sleep problems: This drug is taken on an as needed basis. Do not take more often than told by the doctor. All other oral products: If you take this drug on a regular basis, take a missed dose as soon as you think about it. If it is close to the time for your next dose, skip the missed dose and go back to your normal time. Do not take 2 doses at the same time or extra doses. Many times this drug is taken on an as needed basis. Do not take more often than told by the doctor. Injection: Call your doctor to find out what to do. How do I store and/or throw out this drug? All oral products: Store at room temperature protected from light. Store in a dry place. Do not store in a bathroom. All liquid products: Do not freeze. Liquid (suspension): Throw away any part not used after 8 weeks. Injection: If you need to store this drug at home, talk with your doctor, nurse, or pharmacist about how to store it. All products: Keep all drugs in a safe place. Keep all drugs out of the reach of children and pets. Throw away unused or drugs. Do not flush down a toilet or pour down a drain unless you are told to do so. Check with your pharmacist if you have questions about the best way to throw out drugs. There may be drug take-back programs in your area. General drug facts If your symptoms or health problems do not get better or if they become worse, call your doctor. Do not share your drugs with others and do not take anyone else's drugs. Some drugs may have another patient information leaflet. If you have any questions about this drug,please talk with your doctor, nurse, pharmacist, or other health care provider. If you think there has been an overdose, call your poison control center or get medical care right away. Be ready to tell or show what was taken, how much, and when it happened. documented in this encounterOhiohealth [facility]01-16-2025 NoteHNO ID: [id number] Author: YESICA BEAN MD Service: ? Author Type: Physician Type: Progress Notes Filed: 08/25/2024 10:08 Note Text: DISTANCE HEALTH VISIT I have communicated my name and active licensure. The patient's identity and physical location were verified at the time of this visit. Either the patient or their legal videotape sales representative has been informed of the risks and benefits of -- and alternatives to -- treatment through a remote evaluation and consents to proceed with the evaluation remotely. Total time spent on medical discussion: 40 minutes Yesica Bean MD PROGRESS NOTE-HEADACHE MEDICINE SERVICE DATE: August 25, 2024 Participants: patient and provider HPI: This is a follow up. Last seen on 11/19/2022. June 2024 CMP, CBC, with high creatinine. Daily migraine for the last 3 years.Excedrin daily use has escalated. Migraine characteristics: see note from March 19, [...] 6. Emgality: not on formulary 7. Zonisamide for seizures did not help her headaches 8. Verapamil 9. Pindolol 10.Ajovy for 3 months- no help 11.Periactin- not helpful 12.Aimovig 70 mg- no help 13.Cannabinoid products- no help 14.Nurtec- ineffective 15. Her insurance will not pay the [place] inpatient headache program. 16. Vyepti: 2 doses.Worsen her mood and did not help. 17. Dr. Ludwig assess for TAURUS stimulator but deemed not viable with medical insurance Current Medication review: 1. Lamictal 100 mg for seizures 2. Excedrin daily, she says a large bottle is only lasting her a week and a half. 3. Medrol pack dose ends today Current Outpatient Medications Medication Sig lamoTRIgine (LAMICTAL) 100 mg tablet Take 1 tablet by mouth two times a day. To start on or after 08/10/2024, after completing titration schedule. Mirtazapine (REMERON) 7.5 mg tablet Take 1 tablet by mouth daily at bedtime. FLUoxetine (PROZAC) 40 mg capsule Take 1 capsule by mouth once daily. methylPREDNISolone (MEDROL, FRED,) 4 mg Dose-Pack Take as directed/ indicated on box traMADol (ULTRAM) 50 mg tablet Take 1 tablet by mouth every 4 hours as needed for pain for up to 10 days. for pain. ergocalciferol 50,000 unit capsule (VITAMIN D2, DRISDOL) Take 1 capsule by mouth one time a week. levothyroxine (SYNTHROID) 75 mcg tablet Take 1 tablet by mouth daily before breakfast. No current facility-administered medications for this visit. PAST MEDICAL HISTORY Diagnosis Date Calculus of kidney 07/03/2006 Calculus of ureter 03/16/2008 Convulsions (HCC) 02/01/2013 Depression Essential hypertension 01/01/2018 Gallstone 12/25/2017 Hydronephrosis 03/16/2008 Hypothyroidism IBS (irritable bowel syndrome) Lactose intolerance in adult 01/21/2018 Migraine 02/01/2013 Nonrheumatic mitral (valve) prolapse 06/15/2017 Seizure disorder ([facility]) last 04/2021 Traumatic brain injury ([facility]) Unspecified asthma(493.90) Unspecified ectopic without intrauterine Ectopic ALLERGIES Asa (Salicylates) Swelling Benadryl (Diphenhyd* Mental Status Change Codeine Hives Comment:swelling-airway/face Morphine Swelling Penicillin G Hives, Swelling Phenergan (Prometha* Intolerance Comment:mental status change Seafood [Other] Anaphylaxis IMAGING 1. MRI brain 2012 was normal 2. 10/2018 CT head: normal 3. Oct 31 2020 MRI BRAIN WO/W IVCON -Normal PHYSICAL EXAM: via virtual observation General appearance: Well appearing, alert, in no acute distress, well-hydrated, well nourished. Skin: no jaundice Head: Normocephalic, no masses, atraumatic. Eyes: Anicteric sclera. Extraocular movements are grossly intact. 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 I did not see on the last note epilepsy note from July 2024 that they excluded an epilepsy disorder and she was actually told to continue on Lamictal. RECOMMENDATIONS: 1. Consult to pain clinic locally for a trial of Sphenopalatine ganglion block 2. CMP, CBC in 1 month. Last creatinine was high. If it remains high then I will refer her to nephrology. 3. Migraine prevention: - trial Qulipta 60 mg. Written inf (more content not included)...[id number] History of Present illness Narrative* Yesica Bean MD - 08/25/2024 9:34 AM EST DISTANCE HEALTH VISIT I have communicated my name and active licensure. The patient's identity and physical location wereverified at the time of this visit. Either the patient or their legal videotape sales representative has been informed of the risks and benefits of -- and alternatives to -- treatment through a remote evaluation andconsents to proceed with the evaluation remotely. Total time spent on medical discussion: 40 minutes Yesica Bean MD PROGRESS NOTE-HEADACHE MEDICINE SERVICE DATE: August 25, 2024 Participants: patient and provider HPI: This is a follow up. Last seen on 11/19/2022. June 2024 CMP, CBC, with high creatinine. Daily migraine for the last 3 years.Excedrin daily use has escalated. Migraine characteristics: see note from March 19, 2021. Previous therapies: 1. Toradol IM helps, TAURUS block helps for 2 weeks 2. she was evalauted by Dr. Lduwig and was a candidate for TAURUS stimulator [...] 6. Emgality: not on formulary 7. Zonisamide for seizures did not help her headaches 8. Verapamil 9. Pindolol 10.Ajovy for 3 months- no help 11.Periactin- not helpful 12.Aimovig 70 mg- no help 13.Cannabinoid products- no help 14.Nurtec- ineffective 15. Her insurance will not pay the [place] inpatient headache program. 16. Vyepti: 2 doses.Worsen her mood and did not help. 17. Dr. Ludwig assess for TAURUS stimulator but deemed not viable with medical insurance Current Medication review: 1. Lamictal 100 mg for seizures 2. Excedrin daily, she says a large bottle is only lasting her a week and a half. 3. Medrol pack dose ends today Current Outpatient Medications Medication Sig lamoTRIgine (LAMICTAL) 100 mg tablet Take 1 tablet by mouth two times a day. To start on or after 08/10/2024, after completing titration schedule. Mirtazapine (REMERON) 7.5 mg tablet Take 1 tablet by mouth daily at bedtime. FLUoxetine (PROZAC) 40 mg capsule Take 1 capsule by mouth once daily. methylPREDNISolone (MEDROL, FRED,) 4 mg Dose-Pack Take as directed/ indicated on box traMADol (ULTRAM) 50 mg tablet Take 1 tablet by mouth every 4 hours as needed for pain for up to 10days. for pain. ergocalciferol 50,000 unit capsule (VITAMIN D2, DRISDOL) Take 1 capsule by mouth one time a week. levothyroxine (SYNTHROID) 75 mcg tablet Take 1 tablet by mouth daily before breakfast. No current facility-administered medications for this visit. [...] Unspecified asthma(493.90) Unspecified ectopic without intrauterine Ectopic ALLERGIES Asa (Salicylates) Swelling Benadryl (Diphenhyd* Mental Status Change Codeine Hives Comment:swelling-airway/face Morphine Swelling Penicillin G Hives, Swelling Phenergan (Prometha* Intolerance Comment:mental status change Seafood [Other] Anaphylaxis IMAGING 1. MRI brain 2012 was normal 2. 10/2018 CT head: normal 3. Oct 31 2020 MRI BRAIN WO/W IVCON -Normal PHYSICAL EXAM: via virtual observation General appearance: Well appearing, alert, in no acute distress, well-hydrated, well nourished. Skin: no jaundice Head: Normocephalic, no masses, atraumatic. Eyes: Anicteric sclera. Extraocular movements are grossly intact. 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 I did not see on the last note epilepsy note from July 2024 that they excluded an epilepsy disorder and she was actually told to continue on Lamictal. RECOMMENDATIONS: 1. Consult to pain clinic locally for a trial of Sphenopalatine ganglion block 2. CMP, CBC in 1 month. Last creatinine was high. If it remains high then I will refer her to nephrology. 3. Migraine prevention: - trial Qulipta 60 mg. Written information provided 4. Migraine abortive: - Decrease Excedrin use to 10 days a month. - Trial of Benadryl 50 mg IM. Written information provided 5. Follow up in 2 months Yesica Bean MD [facility] Neurological [place] documented in this encounterOhio[facility]01-[facility] NoteMer[facility] History of Present illness Narrative* Sarika Alvarado MD - 08/25/2024 8:47 AM EST Images from the original note were not included. [facility] CONSULT - NEW VISIT I have communicated my name and active licensure. The patient's identity and physical location wereverified at the time of this visit. Either the patient or their legal videotape sales representative has been informed of the risks and benefits of -- and alternatives to -- treatment through a remote evaluation andconsents to proceed with the evaluation remotely. REASON OF VISIT: weight management/obesity and management of its comorbidities REFERRING PHYSICIAN: Debbie Pichardo Consultation requested for an opinion regarding weight management, and my final recommendations will be communicated back to the requesting physician by way of shared medical record or letter via [place] mail. HISTORY OF PRESENT ILLNESS: Patient is a 49 year old female who presents for evaluation of obesity/weight management. Comorbidities: migraine, seizure like activity, HTN, Hypothyroidism, Depression She was seen by Dr. Pichardo on Aug 02, 2024 for hypothyroidism and weight gain. The visit was started at 8:45 am, and the patient signed off at 8:52 am, did not come back to the visit. . Pertinent medications causing weight gain: Remeron Prozac Pertinent medications causing weight loss: NA Patient goals: 90 lb Prior Medications for weight Loss, side-effects, and/or contra-indications: Several OTC weight loss medications WEIGHT HISTORY AND TRAJECTORY: Since she had , and hysterectomy, she feels uncomfortable with skin sagging over her abdomen. Previous attempt for weight loss: OTC weight loss medications Current weight: 135 lbs Lifestyle Factors Diet and Eating behaviors 24h food recall was not provided. Appetite Control -information was not provided Exercise -- information was not provided -- physical limitations: Sleep Information was not provided Stress -- high Social History Smoking: Tobacco Use: Never Patient Entered Data 03/11/2023 03/26/2024 06/27/2024 PROMIS 10 Health, in general Excellent Very good Good Quality of life, in general Fair Good Fair Physical health, in general Excellent Fair Fair Mental health, in general Fair Poor Poor Social activities satisfaction Excellent Excellent Excellent Performing ADL's Mostly A little Not at all Social role satisfaction Excellent Excellent Excellent Pain, on average 10 - Worst Imaginable Pain 10 - Worst Imaginable Pain 10 - Worst Imaginable Pain Fatigue, on average Moderate Severe Severe Emotional problems Always Always Always PHYSICAL Score 42.3 (Good) 26.7 (Poor) 23.5 (Poor) MENTAL Score 38.8 (Fair) 38.8 (Fair) 36.3 (Fair) No data to display No data to display 10/15/2020 10/17/2022 04/04/2024 Sleep Apnea Questionnaire Snore Loudly No No No Tired, fatigued or sleepy in daytime Yes Yes No Stop breathing or choking/gasping during sleep No No No High blood pressure No No No Probability of moderate-severe sleep apnea (%) SAPS V2 12.57 (Sleep study not recommended) 16 (Sleep study not recommended) 14 (Sleep study not recommended) No data to display No data to display No data to display Review of Systems MEDICATIONS: Current Outpatient Medications on File Prior to Visit Medication Sig Mirtazapine (REMERON) 7.5 mg tablet Take 1 tablet by mouth daily at bedtime. FLUoxetine (PROZAC) 40 mg capsule Take 1 capsule by mouth once daily. methylPREDNISolone (MEDROL, FRED,) 4 mg Dose-Pack Take as directed/ indicated on box traMADol (ULTRAM) 50 mg tablet Take 1 tablet by mouth every 4 hours as needed for pain for up to 10days. for pain. lamoTRIgine (LAMICTAL) 100 mg tablet Take 1 tablet by mouth two times a day. To start on or after 08/10/2024, after completing titration schedule. Patient should start on August 10, 2024. (Patient not taking: Reported on 08/02/2024 Patient should start on August 10, 2024.) ergocalciferol 50,000 unit capsule (VITAMIN D2, DRISDOL) Take 1 capsule by mouth one time a week. levothyroxine (SYNTHROID) 75 mcg tablet Take 1 tablet by mouth daily before breakfast. lamoTRIgine (LAMICTAL) 25 mg tablet Week 1: 1 tablet in the PM only; Week 2: 1 tablet twice daily; Week 3: 1 tablet in the AM, 2 tablets in the PM; Week 4: 2 tablets twice daily; Week 5: 2 tablets inthe AM, 3 tablets in the PM; Week 6: 3 tablets twice daily; Week 7: 3 tablets in the AM, 4 tablets in the PM; Week 8: 4 tablets twice daily. Then start new RX for 100mg tablets. (Patient taking differently: Take 50-75 mg by mouth two times a day. Week 1: 1 tablet in the PM only; Week 2: 1 tablet twice daily; Week 3: 1 tablet in the AM, 2 tablets in the PM; Week 4: 2 tablets twice daily; Week 5: 2tablets in the AM, 3 tablets in the PM; Week 6: 3 tablets twice daily; Week 7: 3 tablets in the AM,4 tablets in the PM; Week 8: 4 tablets twice daily. Then start new RX for 100mg tablets.) No current facility-administered medications on file prior to visit. SIGNIFICANT PAST MEDICAL AND SURGICAL HISTORY: PAST MEDICAL HISTORY Diagnosis Date Calculus of kidney 07/03/2006 Calculus of ureter 03/16/2008 Convulsions (HCC) 02/01/2013 Depression Essential hypertension 01/01/2018 Gallstone 12/25/2017 Hydronephrosis 03/16/2008 Hypothyroidism IBS (irritable bowel syndrome) Lactose intolerance in adult 01/21/2018 Migraine 02/01/2013 Nonrheumatic mitral (valve) prolapse 06/15/2017 Seizure disorder (HCC) last 04/2021 Traumatic brain injury (HCC) Unspecified asthma(493.90) Unspecified ectopic without intrauterine Ectopic PAST SURGICAL HISTORY Procedure Laterality Date ARTHROSCOPY KNEE DIAGNOSTIC W/WO SYNOVIAL BX SPX Left 06/30/2024 Dr. Mccracken ARTHROSCOPY KNEE W/MENISCUS RPR MEDIAL/LATERAL Left 04/07/2024 Left knee arthroscopy medial meniscus root/posterior horn repair CYSTOSCOPY,URETEROSCOPY,LITHOTRIPSY DILATION & CURETTAGE DX&/THER NONOBSTETRIC 1995 [...] RMVL TUBE OVARY 01/2005 Hysterectomy, ALLY FAMILY HISTORY: FAMILY HISTORY Problem Relation Age of Onset Arthritis Mother Cataract Mother other (pacemaker, defibrillator) Mother other (mitral valve) Father Cataract Maternal Grandmother Difficulty with anesthesia No Family History Thyroid No Family History SOCIAL HISTORY: Social History Tobacco Use Smoking status: Never Passive exposure: Never Smokeless tobacco: Never Vaping Use Vaping status: Never Used Substance Use Topics Alcohol use: Yes Comment: rare Drug use: No PHYSICAL EXAM: Vital Signs There were no vitals taken for this visit. General: no acute distress, feeling well Neurologic: alert and oriented to time, space and place Eyes: no exophthalmia, no lig lag, extraocular movements intact. No redness. Psychiatry: normal affect, agitated PERTINENT LABORATORY AND IMAGING: All pertinent laboratory results were reviewed. Please see HPI for further details. Lab Results Component Value Date TSH 7.390 (H) 06/19/2024 TSH 6.550 (H) 12/02/2021 TSH 8.510 (H) 08/01/2021 FREET4 1.0 12/02/2021 FREET4 0.9 07/18/2021 FREET4 0.9 04/04/2021 Lab Results Component Value Date TPROT 6.6 06/19/2024 TPROT 7.3 12/26/2022 TPROT 6.8 12/02/2021 ALB 4.0 06/19/2024 ALB 4.4 12/26/2022 ALB 4.2 12/02/2021 CA 9.4 06/19/2024 CA 9.8 12/26/2022 CA 9.6 12/02/2021 TBILI 0.3 06/19/2024 TBILI 0.4 12/26/2022 TBILI 0.5 12/02/2021 ALKPHOS 87 06/19/2024 ALKPHOS 79 12/26/2022 ALKPHOS 80 12/02/2021 AST 16 06/19/2024 AST 16 12/26/2022 AST 18 12/02/2021 ALT 15 06/19/2024 ALT 12 12/26/2022 ALT 9 12/02/2021 GLUC 92 06/19/2024 GLUC 89 12/26/2022 GLUC 75 12/02/2021 BUN 16 06/19/2024 BUN 15 12/26/2022 BUN 16 12/02/2021 CREAT 1.08 (H) 06/19/2024 CREAT 0.86 12/26/2022 CREAT 0.83 12/02/2021 NA 144 06/19/2024 NA 139 12/26/2022 NA 139 12/02/2021 K 4.0 06/19/2024 K 4.5 12/26/2022 K 4.3 12/02/2021 CHLOR 107 06/19/2024 CHLOR 104 12/26/2022 CHLOR 104 12/02/2021 CO2 24 06/19/2024 CO2 25 12/26/2022 CO2 22 12/02/2021 ANION 13 06/19/2024 ANION 10 12/26/2022 ANION 13 12/02/2021 EGFROTH 63 06/19/2024 EGFROTH 83 12/26/2022 EGFROTH 88 12/02/2021 No results found for: CHOL, TG, HDL, NONHDL, FASTTIME, VLDL, TCHDL, LDL, LDLHDL Contraindications IMPRESSION/PLAN: Encounter Diagnosis ICD-10-CM 1. Overweight (BMI 25.0-29.9) E66.3 Patient comes today for evaluation of obesity and its comorbidities. Diagnosis: overweight with a BMI of 25.51 kg/m2 . Pertinent comorbidities include: : migraine, seizure like activity, HTN, Hypothyroidism, Depression. Patient wants to lose weight down to 90lbs, and use weight loss medications. She is very concerned that her skin is sagging over her abdomen. She feels she did everything right in diet and exercise (without giving details), and declined any referrals for dietitian or leather crafter, or psychologist. I have explained that her expectation to lose weight down to 90 lbs may not be realistic, and we need to shift focus on how to improve her overall health and fitneweight related ss. Also, AOMs are not recommended for her BMI range patients (BMI > 30 or BMI> 27 and commobidities) , and we willneed to focus on lifestyle modifications. She signed off and ended the visit abruptly. She may need to work on possible body image issue and learn about healthy weight loss, and nutrition and exercise to support that. Our goal is to treat obesity to decrease long-term medical complications, comorbidities and improvelifestyle. Today discussion included obesity set point, metabolic adaptation, weight plateau, lifestyle intervention and the possibility of pharmacotherapy. Plan -- Goal: -- engage in sustainable lifestyle changes -- -- Lifestyle Intervention/Weight Loss Program involving dietary changes, personalized exercise program and consideration of anti-obesity medications -- Diet: -- Dietitian consult: Yes recommended -- Diet: Low carb and Mediterranean -- Appetite control and behavior changes -- psychology referral is available for eating behavior issues -- Exercise -- discussed basic exercise recommendations (aerobic/resistance training), the role of exercise on weight loss, maintenance, and muscle mass preservation -- senior sustainability advisor consult: Yes recommended -- -- Sleep: -- sleep hygiene -- -- Stress: -- discussed the effect of stress and its relationship with weight gain -- Weight Loss Medication/Anti-Obesity Medication: -- Medications: not qualified -- Bariatric consideration: -- BMI referral: No -- Follow up: -- as needed -- Other pertinent medical comorbidities -- hypothyroidism- seeing a concrete form setter - Order placed Medications to Start Taking None No orders of the defined types were placed in this encounter. -- OTHER MEDICAL PROBLEMS/ISSUES Patient to continue to follow up with their Primary Care Provider and with other consultants regarding their other medical problems. All questions answered today. Sarika Alvarado MD [facility] Medical Decision Making: Problems: Moderate: 2+ stable chronic illnesses Data: Assessment requiring an independent historian(s) Risk: Moderate: Management significantly limited by SDCA Medical Decision Making Level: 4 - Moderate documented in this encounterOhiohealth [facility]01-14-2025 NoteMer[facility]01-10-20[facility] NoteMer[facility]01-10-2025 History of Present illness Narrative* Irene Randolph DO - 08/19/2024 9:20 AM EST Images from the original note were not included. Follow Up Visit Chief Complaint Sri Chacon is a 49 year old female who presents today for follow up office visit. Patient presents with: Left Knee - Knee Pain, Post Op, Follow Up History of Present Illness PAIN EVALUATION 08/19/2024 [id number] Pain Level: 10 Pain Location: Knee-Left Description: Aching;Contraction;Cramping;Crushing;Cutting;Pressure;Pulsating;Sharp;Shooting;S pasm;Stabbing;Tenderness Duration Units: Months Frequency: Continuous Comments: Keeps me up all day and. Night HPI: Sri Chacon is a 49 year old female for a follow up visit 6 weeks s/p Left knee manipulation under anesthesia, left knee extensive synovectomy on 06/30/2024. Patient states that she continues to have severe pain. Range of motion is not where it should be. She wears the brace, is on crutches and in physical therapy. Nothing helps with the pain.Pain history is noted as above. Denies calf pain, numbness, tingling, fever, chills or other constitutional symptoms. Is there any overall improvement in your condition? No Any new injury, since being seen last: No REVIEW OF SYMPTOMS: Patient did not have, and does not currently have, any weight loss, malaise, fever, chills, headache, chest pain, chest pressure, palpitations, cough, shortness of breath, orthopnea, paroxsymal nocturnal dyspnea, nausea, vomiting, diarrhea, constipation, melena, hematochezia, urinary difficulties, prolonged bleeding, easily bruising, heat or cold intolerance, new onset joint pain or swelling, newonset extremity weakness or numbness, new onset auditory or visual disturbances, lightheadedness, dizziness, partial loss of consciousness or full loss of consciousness. Current Outpatient Medications Medication Sig ergocalciferol 50,000 unit capsule (VITAMIN D2, DRISDOL) Take 1 capsule by mouth one time a week. levothyroxine (SYNTHROID) 75 mcg tablet Take 1 tablet by mouth daily before breakfast. lamoTRIgine (LAMICTAL) 100 mg tablet Take 1 tablet by mouth two times a day. To start on or after 08/10/2024, after completing titration schedule. Syringe with Needle, Disp, 3 mL 23 x 1 1 Each as directed. diphenhydrAMINE (BENADRYL) 50 mg/mL injection Inject 50 mg intramuscularly every 6 hours as needed (at migraine onset). atogepant (QULIPTA) 60 mg tablet Take 1 tablet (60 mg) by mouth once daily. Mirtazapine (REMERON) 7.5 mg tablet Take 1 tablet by mouth daily at bedtime. FLUoxetine (PROZAC) 40 mg capsule Take 1 capsule by mouth once daily. traMADol (ULTRAM) 50 mg tablet Take 1 tablet by mouth every 4 hours as needed for pain for up to 10days. for pain. No current facility-administered medications for this visit. Physical Exam Vitals: There were no vitals taken for this visit. Psych: Pleasant, good affect and mood General Appearance: Well appearing, alert, in no acute distress, well-hydrated, well nourished.. Skin: Skin color, texture, turgor normal, no suspicious rashes or lesions. Peripheral Pulses: Normal. Neurologic: Gait normal. Reflexes normal and symmetric. Sensation grossly intact.. Lymph Nodes: No cervical lymphadenopathy, No supraclavicular lymphadenopathy, No axillary lymphadenopathy., and No inguinal lymphadenopathy.. Respiratory: No recent pulmonary infection, hemoptysis, chronic cough, or shortness of breath at rest Rheumatologic: Joint deformities: left knee pain Right Knee Exam Right knee exam is normal. Muscle Strength The patient has normal right knee strength. Tenderness The patient is experiencing no tenderness. Range of Motion Extension: normal Flexion: normal Tests Kindra: Anterior - negative Posterior - negative Drawer: Anterior - negative Posterior - negative Other Erythema: absent Sensation: normal Pulse: present Swelling: none Left Knee Exam Range of Motion Extension: abnormal Flexion: abnormal Tests Kindra: Anterior - negative Posterior - negative Drawer: Anterior - negative Posterior - negative Other Erythema: absent Scars: present Sensation: normal Pulse: present Swelling: none Comments: Neg homans bilaterally Assessment and Plan Radiographs: I have independently reviewed films and my findings are the same. and I have reviewed the images with the patient and family. Impression: Encounter Diagnosis ICD-10-CM 1. Chronic pain of left knee M25.562 HINGED KNEE BRACE G89.29 traMADol (ULTRAM) 50 mg tablet Today, in detail, through a thorough evaluation, we discussed possible etiologies of pain and our plans for further diagnostic and therapeutic interventions. We discussed strategies for decreasing pain and improving strength, stability and motion. Patient's questions were answered in detailed. Patient verbalizes understanding and agrees with the treatment plan as discussed. Dynamic extension brace Wear brace locked in extension at night and while ambulating, able to getpatient close to extensionin office and reapplied brace and showed patient what she needs to do at home to get full extension Needs compliance emphasis Medrol dose pack Follow up in 4 weeks to see if improvement in motion tramadol Irene AndersonO. M.P.H. documented in this encounterOhiohealth [facility]01-06-2025 NoteMer[facility]01-06-2025 History of Present illness Narrative* Ronnie Pettit, PT - 08/15/2024 4:31 PM EST Episode Visit Count: 2 Therapist That Will Accept/Oversee The Plan Of Care: Ronnie Pettit PT. Start of Care Date: 07/21/24 Onset Date: 09/19/23 Plan of Care Certification Date: 07/21/24 Next Certification Due Date: 09/02/24 Patient Identified by Name and Date of : Yes [facility] PHYSICAL THERAPY TREATMENT NOTE ASSESSMENT: Sri Chacon tolerated the session with expected muscle soreness. She demonstrated improvements in L Knee Ext range of motion & decreased knee flexion aarom and prom. The patient willcontinue to benefit from ongoing skilled physical therapy to progress toward set goals and to continue with post- operative protocol. PLAN FOR NEXT VISIT: Advance ROM as tolerated. SUBJECTIVE: Patient reports L Knee continues to be a 10/10 NPRS and keeps her up at night. Arrives WBAT on B Crutches, better than previous. Pain: Pain Pain Level: 10 Pain Location: Knee - Left Description: Aching Post Treatment Pain Post Treatment Pain Level: Worse Post Treatment Pain Location: Knee - Left OBJECTIVE MEASURES WITH LEVEL OF FUNCTION: In prone; L Heel higher than R - due to L Knee in bent position. LE AROM L Knee Extension: -5 Degrees L Knee Flexion: 70 Degrees (Supine AAROM with strap.) LE PROM L Knee Flexion: 80 Degrees TREATMENT: Therapeutic Exercise: 1: Prone L Knee Hangs: x4 Min, 4#. 2: Seated PROM Knee Flexion/Extension: 2x10. 3: L knee supine SAQ with small whole foam roller: 3x15. 4: L Knee Ext Stretch: x3min, 5#cuff, on full foam roller. 5: L Quad Sets: 2x10, 5-sec holds. On full foam roller 7: L Heel Slides AAROM: x10. 8: Discussed not needing to continue putting LEELA wrap around knee. Skilled Intervention: Patient was educated in proper exercise technique and purpose for exercises. Skilled judgment was used in selection of appropriate interventions. Gait Training: Pre gait training: Sagital and Frontal Plane Weight Shifts onto the LLE, completed to as tolerated:1 Minute Each. Distance (feet): 4 Laps of 12 Feet in // Bars. Gait Cues: Therapist demonstrated gait corrections and gave verbal cues throughout. She was encouraged to improve symmetrical step lengths, L Knee flexion during swing without circumduction. Assistive Device: UE Assist on // Bars. Assist Level: SBA Skilled Intervention: Patient was provided stand by assist during pre-gait/gait training to preventfalls and insure safety. Facilitated proper gait cycle with the use of verbal and visual cues for correction of gait deviations identified in the objective section above. Gait belt utilized during session for safety. Billing Therapeutic Exercise Treatment Minutes: 30 Gait Training Treatment Minutes: 10 Skilled Treatment Time Minutes (timed and untimed codes): 40 Total Session Time (minutes): 40 Session Start Time : 1630 Session Stop Time : 1710 Ronnie Pettit PT documented in this encounterOhio[facility] History of Present illness Narrative* Ronnie Pettit, PT - 08/11/2024 3:04 PM EST Episode Visit Count: 5 Therapist That Will Accept/Oversee The Plan Of Care: Ronnie Pettit PT. Start of Care Date: 07/21/24 Onset Date: 09/19/23 Plan of Care Certification Date: 07/21/24 Next Certification Due Date: 09/02/24 REHABILITATION AND SPORTS THERAPY PHYSICAL THERAPY TREATMENT NOTE ASSESSMENT: Sri Chacon tolerated the session with expected muscle soreness. She demonstrated difficulty with equal stride length - provided verbal and visual cues throughout.. The patient will continue to benefit from ongoing skilled physical therapy to progress toward set goals and to continue with post- operative protocol. PLAN FOR NEXT VISIT: Seated PROM; Gait Advances w/ Crutches; Progress Knee Flex & Ext Motion. SUBJECTIVE: 10/10 NPRS today; states it feels like her knee is being ripped apart. Not putting any weight on her LLE on B Crutches walking from waiting room. Pain: Pain Pain Level: 10 Pain Location: Knee - Left Description: Aching OBJECTIVE MEASURES WITH LEVEL OF FUNCTION: Non-symmetrical weight distribution during squats. Moderate deviation to the Right Side. LE PROM L Knee Flexion: 83 Degrees TREATMENT: Therapeutic Exercise: 1: Sci-FIt: 5 Min, Level 2.0, Seat 10. Used for L Knee ROM. 2: 4 F Left Jenni: 2x6. 3: Standing L ABD: 3x8. 4: MiniSquats TRX: 3x8. 7: Discussed importance of ice & elevation. Discussed importance of weightbearing at home as much as tolerated for progression in gait. Skilled Intervention: Patient was educated in proper exercise technique and purpose for exercises. Skilled judgment was used in selection of appropriate interventions. Gait Training: Pre gait training: Sagital and Frontal Plane Weight Shifts onto the LLE, completed to as tolerated:2 Minutes Each. Distance (feet): 6 Laps of 12 Feet in // Bars. Gait Cues: Therapist demonstrated gait corrections and gave verbal cues throughout. She was encouraged to improve heel to toe pattern and symmetrical step lengths. Assistive Device: UE Assist on // Bars. Assist Level: SBA Skilled Intervention: Patient was provided stand by assist during pre-gait/gait training to preventfalls and insure safety. Facilitated proper gait cycle with the use of verbal cues for correction of gait deviations identified in the objective section above. Gait belt utilized during session for safety. Billing Therapeutic Exercise Treatment Minutes: 23 Gait Training Treatment Minutes: 15 Skilled Treatment Time Minutes (timed and untimed codes): 38 Total Session Time (minutes): 38 Session Start Time : 1500 Session Stop Time : 1538 Ronnie Pettit PT documented in this encounterOhiohealth Dublin [facility]12-30-2024 NoteMer[facility]12-30-[facility] History of Present illness Narrative* Ronnie Pettit, PT - 08/08/2024 3:33 PM EST Episode Visit Count: 4 Therapist That Will Accept/Oversee The Plan Of Care: Ronnie Pettit PT. Start of Care Date: 07/21/24 Onset Date: 09/19/23 Plan of Care Certification Date: 07/21/24 Next Certification Due Date: 09/02/24 REHABILITATION AND SPORTS THERAPY PHYSICAL THERAPY TREATMENT NOTE ASSESSMENT: Sri Chacon tolerated the session with expected muscle soreness and weightbearing through the left lower extremity. She demonstrated ability to weightbear through the left lower extremity without B crutches however did have increased pain with walking. The patient will continue to benefit from ongoing skilled physical therapy to progress toward set goals and to continue with post-operative protocol. PLAN FOR NEXT VISIT: Gait Advances; Progress Knee Flex & Ext Motion. SUBJECTIVE: States 10/10 pain rated on NPRS today. L Knee keeps her up at night. States trying to put weight through the LLE, however it won't let her. Pain: Pain Pain Level: 10 Pain Location: Knee - Left Description: Aching Post Treatment Pain Post Treatment Pain Level: No Change Post Treatment Pain Location: Knee - Left OBJECTIVE MEASURES WITH LEVEL OF FUNCTION: In prone; L Heel higher than R - due to L Knee in bent position. LE AROM L Knee Extension: -7 Degrees L Knee Flexion: 78 Degrees (AAROM) Gait Weight Bearing Status: WBAT Gait: Stand By Assistance Gait Device: Parallel Bars Gait Deviations: Left Lower Extremity Gait Deviations Left Lower Extremity: Knee flexion during stance increased, Lacks full knee extension during terminal swing, Stance time decreased, Weight bearing decreased TREATMENT: Therapeutic Exercise: 1: Sci-FIt: 5 Min, Level 2.0, Seat 10. Used for L Knee ROM. 2: L Heel Slides with Strap: 1x15. 3: Lknee supine SAQ with small whole foam roller: 4x10 4: Prone L Knee Han x 4min, 4#. 5: Supine LLLD Ext Stretch: 4 Min, 5#cuff. Skilled Intervention: Patient was educated in proper exercise technique and purpose for exercises. Skilled judgment was used in selection of appropriate interventions. Gait Training: Pre gait training: Sagital and Frontal Plane Weight Shifts onto the LLE, completed to as tolerated:2x10 each. Distance (feet): 8 Laps of 12 Feet in // Bars. Gait Cues: Therapist demonstrated gait corrections and gave verbal cues throughout. She was encouraged to improve heel to toe pattern and symmetrical step lengths. Assistive Device: UE Assist on // Bars. Assist Level: SBA Skilled Intervention: Patient was provided stand by assist during pre-gait/gait training to preventfalls and insure safety. Facilitated proper gait cycle with the use of verbal and visual cues for correction of gait deviations identified in the objective section above. Gait belt utilized during session for safety. Billing Therapeutic Exercise Treatment Minutes: 25 Gait Training Treatment Minutes: 15 Skilled Treatment Time Minutes (timed and untimed codes): 40 Total Session Time (minutes): 40 Session Start Time : 1533 Session Stop Time : 1613 Ronnie Pettit PT documented in this encounterOhiohealth Dublin [facility]12-24-2024 Instructions* Patient Instructions* Debbie Pichardo MD - 08/02/2024 10:46 AM EST Please do labs annually. Orders placed for next year Can follow up in one year if significantly abnormal than what it is now documented in this encounterOhiohealth Dublin [facility] Hospital12-24-2024 NoteMer[facility]12-24-2024 History of Present illness Narrative* Debbie Pichardo MD - 08/02/2024 10:32 AM EST [facility] Initial Clinic Visit Note Referred by: Giancarlo Fernando PA-C My final recommendations will be communicated back to the requesting provider by way of shared Medical record or a letter via [place] mail Subjective: Sri Chacon is a 49 year old female here for evaluation of abnormal thyroid labs Patient appears to have abnromal thyroid labs consistent with subclinical hypothyroidism atleast since 2020, and in March 2021 she was found to have elevated TPO antibodies Cause of hypothyroidism: Ton's disease Never used any thyroid medications in the past No recent fever., sore throat, neck pain or other sickness. She has a hx of gluten sensitivity, epilepsy on antiseizure medications General symptoms: Fatigue: okay Weight change: not in the recent past Appetite change: low appetite Menstrual irregularities: total hysterectomy along with ovaries at the age of 25 years, due to tubal rupture and then had heavy bleeding post Change in bowel habits: no Temperature intolerance: heat intolerance and sweating On Apr 04 2024, she had a left knee surgery for treatment of injury at work that happened in Sep 2023, and had another repair of that knee in Jun 2024. She is using crutches now No supplement use FH: no thyroid or autoimmune issues REVIEW OF SYSTEMS: GENERAL:No weight loss, malaise or fevers HEENT:Negative for frequent or significant headaches, No changes in hearing or vision, no nose bleeds or other nasal problems NECK:Negative for lumps, goiter, pain and significant neck swelling RESPIRATORY: Negative for cough, hemoptysis, wheezing or shortness of breath CARDIOVASCULAR: Negative for chest pain, leg swelling or palpitations GASTROINTESTINAL: No nausea, vomiting, or persistent diarrhea GENITOURINARY: no dysuria, Polyuria, no changes in urinary frequency MUSCULOSKELETAL:no muscle aches, arthralgia NEUROLOGIC: no numbness, tingling, no Paresthesias, no headaches SKIN:Negative for lesions, rash, and itching PSYCHIATRIC: Negative for sleep disturbance, mood disorder and recent psychosocial stressors. HEMATOLOGIC/LYMPHATIC/IMMUNOLOGIC:Negative for prolonged bleeding, bruising easily ENDOCRINE: Negative for cold or heat intolerance or goiter ALLERGIES: ALLERGIES Allergen Reactions Codeine Hives, Swelling swelling-airway/face Morphine Swelling Penicillin G Hives, Swelling Shellfish Derived Anaphylaxis Benadryl [Diphenhyd* Mental Status Change Phenergan [Prometha* Mental Status Change Aspirin Rash MEDICATIONS: Current Outpatient Medications on File Prior to Visit Medication Sig amitriptyline (ELAVIL) 25 mg tablet Take 1 tablet by mouth daily at bedtime. FLUoxetine (PROZAC) 20 mg capsule Take 1 capsule by mouth once daily. ergocalciferol 50,000 unit capsule (VITAMIN D2, DRISDOL) Take 1 capsule by mouth one time a week. levothyroxine (SYNTHROID) 75 mcg tablet Take 1 tablet by mouth daily before breakfast. lamoTRIgine (LAMICTAL) 25 mg tablet Week 1: 1 tablet in the PM only; Week 2: 1 tablet twice daily; Week 3: 1 tablet in the AM, 2 tablets in the PM; Week 4: 2 tablets twice daily; Week 5: 2 tablets inthe AM, 3 tablets in the PM; Week 6: 3 tablets twice daily; Week 7: 3 tablets in the AM, 4 tablets in the PM; Week 8: 4 tablets twice daily. Then start new RX for 100mg tablets. (Patient taking differently: Take 50-75 mg by mouth two times a day. Week 1: 1 tablet in the PM only; Week 2: 1 tablet twice daily; Week 3: 1 tablet in the AM, 2 tablets in the PM; Week 4: 2 tablets twice daily; Week 5: 2tablets in the AM, 3 tablets in the PM; Week 6: 3 tablets twice daily; Week 7: 3 tablets in the AM,4 tablets in the PM; Week 8: 4 tablets twice daily. Then start new RX for 100mg tablets.) [START ON 08/10/2024] lamoTRIgine (LAMICTAL) 100 mg tablet Take 1 tablet by mouth two times a day. Tostart on or after 08/10/2024, after completing titration schedule. Patient should start on August. (Patient not taking: Reported on 08/02/2024 Patient should start on August 10, 2024.) No current facility-administered medications on file prior to visit. PAST MEDICAL HISTORY: PAST MEDICAL HISTORY Diagnosis Date Calculus of kidney 07/03/2006 Calculus of ureter 03/16/2008 Convulsions (HCC) 02/01/2013 Depression Essential hypertension 01/01/2018 Gallstone 12/25/2017 Hydronephrosis 03/16/2008 Hypothyroidism IBS (irritable bowel syndrome) Lactose intolerance in adult 01/21/2018 Migraine 02/01/2013 Nonrheumatic mitral (valve) prolapse 06/15/2017 Seizure disorder (HCC) last 04/2021 Traumatic brain injury (HCC) Unspecified asthma(493.90) Unspecified ectopic without intrauterine Ectopic PAST SURGICAL HISTORY: PAST SURGICAL HISTORY Procedure Laterality Date ARTHROSCOPY KNEE DIAGNOSTIC W/WO SYNOVIAL BX SPX Left 06/30/2024 Dr. Mccracken ARTHROSCOPY KNEE W/MENISCUS RPR MEDIAL/LATERAL Left 04/07/2024 Left knee arthroscopy medial meniscus root/posterior horn repair CYSTOSCOPY,URETEROSCOPY,LITHOTRIPSY DILATION & CURETTAGE DX&/THER NONOBSTETRIC 1995 [...] RMVL TUBE OVARY 01/2005 Hysterectomy, ALLY FAMILY HISTORY: FAMILY HISTORY Problem Relation Age of Onset Arthritis Mother Cataract Mother other (pacemaker, defibrillator) Mother other (mitral valve) Father Cataract Maternal Grandmother Difficulty with anesthesia No Family History Thyroid No Family History SOCIAL HISTORY: Social History Tobacco Use Smoking status: Never Passive exposure: Never Smokeless tobacco: Never Vaping Use Vaping status: Never Used Substance Use Topics Alcohol use: Yes Comment: rare Drug use: No PHYSICAL EXAM: BP 118/72 (BP Site: Right Arm, BP Position: Sitting, BP Cuff Size: Regular Adult) Pulse 97 Resp19 Ht 154.9 cm (5' 1) Wt 61.2 kg (135 lb) SpO2 97% BMI 25.51 kg/m Last 3 Encounter Wt Readings: Date: Wt: 08/02/2024 61.2 kg (135 lb) 06/29/2024 83.9 kg (185 lb) 05/31/2024 84 kg (185 lb 3 oz) General: Alert and oriented x3, no acute distress, using crutches to walk Eyes: Anicteric sclera. Extraocular movements are intact. Neck supple, no cervical lymphadenopathy Thyroid: normal size, normal texture, no palpable nodules Lungs: Breathing unlabored Heart regular rate and rhythm Musculoskeletal: Muscular strength intact, No joint swelling, deformity, or tenderness Neuro: Gait normal. Sensation grossly intact. No focal findings Extremities: has left leg wrapped in brace, dressing noted, has tremors on bilateral outstretched arms Skin: no rashes/ erythema LAB: TSH Date Value Ref Range Status 06/19/2024 7.390 (H) 0.270 - 4.200 mIU/L Final Comment: If the patient is , TSH reference range varies by gestational period: First Trimester (weeks 9-12): 0.180-2.990 mIU/L Second Trimester: 0.110-3.980 mIU/L Third Trimester: 0.480-4.710 mIU/L Fredy Mosquera et al. A Practical Approach for the Verifications and Determination of Site- and Trimester-Specific Reference Intervals for Thyroid Function tests in . Thyroid, 2019:29:3:412-420.Keith Mendez, et al. 2017 Guidelines of the [place] [employer] for the Diagnosis and Management of Thyroid Disease during and the . Thyroid, 2017:27:3:315-389. Free T4 Date Value Ref Range Status 12/02/2021 1.0 0.9 - 1.7 ng/dL Final Latest Reference Range & Units 10/17/20 11:40 04/04/21 08:08 07/18/21 12:06 08/01/21 13:54 12/02/21 12:14 06/19/24 19:57 06/20/24 19:25 Free T4 0.9 - 1.7 ng/dL 0.9 0.9 1.0 TSH 0.270 - 4.200 mIU/L 6.060 (H) 8.790 (H) 8.510 (H) 6.550 (H) 7.390 (H) T3 79 - 165 ng/dL 123 Free T3 2.3 - 4.1 pg/mL 3.3 THYROID PEROXIDASE ANTIBODY <5.6 IU/mL 442.7 (H) 337.4 (H) (H): Data is abnormally high ASSESSMENT/PLAN: Subclinical hypothyroidism: Ton's disease: Pathophysiology of the condition reviewed. She does not have any symptoms concerning for hypothyroidism, and rather has a combination of non specific symptoms Her TSH levels are also stably elevated over the years. TPO antibodies slightly better than in 202ut this might not be much beneficial in predicting outcomes at this time Discussed no indication for treatment and reviewed monitoring with labs annually, or sooner if any symptoms concerning for thyroid abnormality, few symptoms reviewed with her today. She can repeat labs in one year from now, ordered today Follow up in 1 year with labs Medical Decision Making: Problems: Moderate: 1+ chronic illnesses with change Data: Unique test result(s) reviewed: 3+ Unique test(s) ordered: 2 Independent interpretation of test from other physician/QHCP Risk: Moderate: Moderate risk from testing/treatment Medical Decision Making Level: 4 - Moderate Debbie Pichardo MD Endocrinology Associate Staff [facility] Endocrinology [facility] Metabolism [place] [phone] documented in this encounterOhiohealth Dublin [facility] Hospital12-24-2024 NoteMer[facility]12-24-2024 History of Present illness Narrative* Steph Neely, PT - 08/02/2024 9:01 AM EST Episode Visit Count: 3 Therapist That Will Accept/Oversee The Plan Of Care: Ronnie Pettit PT. Start of Care Date: 07/21/24 Onset Date: 09/19/23 Plan of Care Certification Date: 07/21/24 Next Certification Due Date: 09/02/24 REHABILITATION AND SPORTS THERAPY PHYSICAL THERAPY TREATMENT NOTE ASSESSMENT: Sri Chacon tolerated the session with increased symptoms. She demonstrated difficultywith progressing AAROM and AROM with heel slides and quad sets, requiring encouragement. Pt. Reports 10/10 pain with each exercise, but non-verbals not consistent with expressions of severe pain. Subjective report of I'll just do it. The patient will continue to benefit from ongoing skilled physical therapy to progress toward set goals. Current Frequency: 2x/week PLAN FOR NEXT VISIT: Gait Advances to WBAT &/or weight shifts; Possible Posterior Knee Massage; Progress Knee Flex & Ext Motion. SUBJECTIVE: Pt. states that she is in a lot of pain with the exercises, but she does them. Patient Goals: Alleviate Pain, Improve Function. Functional Limitations: standing, walking, walking in the community, stair negotiation, physical activities, working, sleeping, squatting, kneeling Pain: Pain Pain Level: 10 Pain Location: Knee - Left Description: Aching Post Treatment Pain Post Treatment Pain Level: No Change Post Treatment Pain Location: Knee - Left OBJECTIVE MEASURES WITH LEVEL OF FUNCTION: TREATMENT: Therapeutic Exercise: 1: Sci-FIt: 5 Min, Level 0, Seat 12. Used for L Knee ROM. 2: L Supine Quad Set w/ heel propped: 2x10, 5-sec holds. 3: Lknee supine SAQ with folded pillow 4x8 4: supine L heel slide 4x8 5: supine hip IR and ER log rolls, knee extended 10x each 6: supine gastrocnemius stretch with strap 3x30 sec each LE 7: sit <> stand slow, chair with arm rests 3x5 Skilled Intervention: Patient was educated in proper exercise technique and purpose for exercises. Skilled judgment was used in selection of appropriate interventions. Correct performance of therapeutic exercises was facilitated with verbal, visual, and tactile cuing. Educated patient on rationale for performing exercises in regards to decreasing fatigue , includingbalance, increase ease of ADL, and ROM and function . Patient education as noted. Billing Therapeutic Exercise Treatment Minutes: 38 Skilled Treatment Time Minutes (timed and untimed codes): 38 Total Session Time (minutes): 38 Session Start Time : 0900 Session Stop Time : 937 Steph Neely PT documented in this encounterOhiohealth Dublin [facility] Hospital12-18-2024 NoteMer[facility]12-18-2024 History of Present illness Narrative* Ronnie Pettit, PT - 07/27/2024 3:00 PM EST Episode Visit Count: 2 Therapist That Will Accept/Oversee The Plan Of Care: Ronnie Pettit PT. Start of Care Date: 07/21/24 Onset Date: 09/19/23 Plan of Care Certification Date: 07/21/24 Next Certification Due Date: 09/02/24 REHABILITATION AND SPORTS THERAPY PHYSICAL THERAPY TREATMENT NOTE ASSESSMENT: Sri Chacon tolerated the session with increased symptoms. She demonstrated improvements in L Knee AROM, however still severely limited. Better L Knee Ext The patient will continue to benefit from ongoing skilled physical therapy to progress toward set goals and to continue with post-operative protocol. PLAN FOR NEXT VISIT: Gait Advances to WBAT &/or weight shifts; Possible Posterior Knee Massage; Progress Knee Flex & Ext Motion. SUBJECTIVE: States left knee popped while laying in bed yesterday, pain was severe and she states it lasting for > 2 hrs. Reports exercises were hard but she did/pushed through them. Pain: Pain Pain Level: (Over a 10/10 NPRS today per patient.) Pain Location: Knee - Left Post Treatment Pain Post Treatment Pain Level: 10 (States >11/10 per patient.) Post Treatment Pain Location: Knee - Left OBJECTIVE MEASURES WITH LEVEL OF FUNCTION: LE AROM L Knee Extension: -15 Degrees L Knee Flexion: 77 Degrees (AAROM.) LE PROM L Knee Extension: -8 Degrees (Manual Therapist OP) L Knee Flexion: 78 Degrees TREATMENT: Therapeutic Exercise: 1: Sci-FIt: 5 Min, Level 0, Seat 12. Used for L Knee ROM. 2: L Seated Knee Ext Self-Manual OP: 1x10, 5-sec holds. (L Foot on Stool.) 3: L Seated Knee Extension with RLE Assisted TKE, GTB: 3x10. (L Foot on Stool) 4: Prone L Knee Han x 4min, 4#. 5: L Heel Slides with Strap + Slide Board: 2x15. 6: L Supine Quad Set w/ heel propped: 2x10, 5-sec holds. Poor Contraction. 7: L Knee PROM for Extension, ankle propped, pt. in supine: 2x10, 3-5 hold. Skilled Intervention: Patient was educated in proper exercise technique and purpose for exercises. Skilled judgment was used in selection of appropriate interventions. Billing Therapeutic Exercise Treatment Minutes: 40 Skilled Treatment Time Minutes (timed and untimed codes): 40 Total Session Time (minutes): 40 Session Start Time : 9 Session Stop Time : 153 Ronnie Pettit PT documented in this encounterOhiohealth Dublin [facility] Hospital12-12-2024 History of Present illness Narrative* Ronnie Pettit PT - 07/21/2024 10:37 AM EST Program_ID:[id number] Access Code: [email or web address] URL: [email or web address] Date: 07-21-2024 Prepared By: Ronnie Pettit Program Notes Exercises - Quad Set w/ Towel Roll Under Heel - 5 x daily - 7 x weekly - 2-3 sets - 10 reps - Long Sitting Quad Set - 5 x daily - 7 x weekly - 2-3 sets - 10 reps - Supine Knee Extension Stretch on Towel Roll - 3 x daily - 7 x weekly - 1-2 sets - reps - Seated Knee Extension Stretch with Chair - 3 x daily - 7 x weekly - 2-4 sets - reps - Supine Heel Slide with Strap - 3 x daily - 7 x weekly - 2-3 sets - 10-15 reps - Supine Single Leg Ankle Pumps - 3 x daily - 7 x weekly - 3 sets - 25 reps - Supine Ankle Circles - 3 x daily - 7 x weekly - 3 sets - 25 reps * Ronnie Pettit, PT - 07/21/2024 9:47 AM EST Images from the original note were not included. Episode Visit Count: 1 Therapist That Will Accept/Oversee The Plan Of Care: Ronnie Pettit PT. Start of Care Date: 07/21/24 Onset Date: 09/19/23 Plan of Care Certification Date: 07/21/24 Next Certification Due Date: 09/02/24 Patient Identified by Name and Date of : Yes REHABILITATION AND SPORTS THERAPY PHYSICAL THERAPY Re-EVALUATION PLAN OF CARE: Assessment: Sri Chacon presents with diagnosis of status-post 3 weeks Left knee manipulation under anesthesia: and extensive synovectomy, S/P Left knee medial meniscus repair. Current status interferes with standing, walking, walking in the community, stair negotiation, physical activities, working, sleeping, squatting, kneeling . The patient presents with impairments in ADL's, gait, independence in exercise, joint mobility, overall function, range of motion, soft tissue healing, strength, symptom management, and tissue tenderness . PROMIS (Patient-Reported Outcomes Measurement Information System) scores were reviewed and identified as a rehabilitation concern. Prognosis for therapy is Fair due to: clinical presentation, limited compliance with previous therapy .The patient will benefit from skilled therapy services to meet the goals established for this plan of care as noted below. Goals for Episode of Care: established 07/21/24 Patient reported outcome of physical function will increase T-score by a minimum 5 points. [place] in home exercise program. Patient will decrease pain rating by 2 points to meet minimal clinical important difference for numeric pain rating scale. Increase ROM of L Knee to 0-5-120 degrees for improvement in ambulation ability & functional activities. Increased strength of LLE to 5/5 MMT for improved ADLs and ability for return to work. Normalize Gait without Assistive Device. Patient Goals: Alleviate Pain, Improve Function. Time Frame for Goals and Treatment : 10/19/24 Planned Interventions, Frequency, and Duration: Current Frequency: 2x/week Duration: 6 weeks Total Number of Visits Planned: 12 Planned Treatment Interventions: Therapeutic exercise (83496), Neuromuscular re- education (70809), Manual therapy (38755), Therapeutic activities (53280), Self- residential management ([id number]), Patient/Family/Caregiver Education PLAN FOR NEXT VISIT: Review, correct and progress HEP to tolerance. Prone Ext Hangs, Prone PROM Knee Flexion. Patient demonstrates good understanding of plan of care and treatment. The above goals and plan of care were discussed and agreed upon by patient/family. SUBJECTIVE: Prior Left Knee Arthroscopy medial meniscus root/posterior horn repair with Dr. Randolph on 04/07/24, no improvement in pain post-op and moderate deficits in ROM. Comes in now following, Left knee manipulation under anesthesia, and extensive synovectomy on 06/30/[address] Randolph. Patient reports this surgery is worse than the first. 05/19 NPRS. On Pain Meds (Toradol) & Icing. Tried putting weight through LLE, didn't work per patient, was extremely painful. Currently NWB on B Crutch. Was having L Calf Pain following the procedure, Neg US DVT. Patient Goals: Alleviate Pain, Improve Function. Functional Limitations: standing, walking, walking in the community, stair negotiation, physical activities, working, sleeping, squatting, kneeling Prior Level of Function: Independent without limitations Relevant History Past Relevant Medical Conditions: Per review with patient no issues were identified Employment: Unemployed Recreation / Current Exercise: unable to right now. Intake Information: Prescription present Previous Treatment: Ice , Physical Therapy , Surgery , Immobilizer/brace Falls Interview: No positive findings with falls interview Pain: Pain Pain Level: 10 Pain Location: Knee - Left Post Treatment Pain Post Treatment Pain Level: 10 Post Treatment Pain Location: Knee - Left PROMIS Scales 07/20/2024 2024 03/26/2024 Higher is Better Phys Func - Score 23 (severe dysfunction) 19 (severe dysfunction) 27 (severe dysfunction) Phys Func - Percentile 0 0 1 Self-Eff Symptom - Score 35 (Low) 36 (Low) Self-Eff Symptom - Percentile 7 8 T-scores: mean of general population = 50. 5 points is clinically meaningfully difference Percentiles provide an indication of how the patient's score ranks in relation to the general population. Higher percentile rankings indicate better function/quality of life. 50th percentile is the average of the general population and indicates half of respondents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 (ZONEGRAN) 100 mg capsule 180 capsule 1 Sig: Take 2 capsules by mouth every evening. Authorizing Provider: DANIEL SHAW APRN.CNP * Telephone Encounter - Alexandrea Salinas - 05/25/2024 12:49 PM EDT Prescription Refill: Patient using new pharmacy Requested by: patient Please E-Scribe Caller Contact Number: [facility] Number: [phone] Generic/ brand: Generic 30 or 90 day supply requested: 90 Last appointment: 12/26/22 Next Appointment: None, Patient needs appointment, sent message to S51 to contact patient to schedule annual visit. Patient of Dr. Greenwood documented in this encounterOhiohealth Dublin [facility] Hospital10-16-2024 Telephone encounter Note * Telephone Encounter - Alexandrea Salinas - 05/25/2024 12:49 PM EDT Prescription Refill: Patient using new pharmacy Requested by: patient Please E-Scribe Caller Contact Number: [employer] [facility] Number: [phone] Generic/ brand: Generic 30 or 90 day supply requested: 90 Last appointment: 12/26/22 Next Appointment: None, Patient needs appointment, sent message to S51 to contact patient to schedule annual visit. Patient of Dr. Greenwood [facility]10-14-2024 Telephone encounter Note* Telephone Encounter - Alice Leija MA - 05/23/2024 8:[address] Randolph asked for patient to have dynamic extension brace. This was submitted to the rep 05/19/24. The rep will contact the patient for next steps. Alice Leija MA May 23, 2024 8:03 AM [facility]10-14-2024 Miscellaneous Notes* Telephone Encounter - Alice Leija MA - 05/23/2024 8:[address] Randolph asked for patient to have dynamic extension brace. This was submitted to the rep 05/19/24. The rep will contact the patient for next steps. Alice Leija MA May 23, 2024 8:03 AM * Telephone Encounter - Meeta Kirk MA - 05/19/2024 12:02 PM EDT Pt was just in the office and was told something about a hinge brace. She is still in her post op brace. Is she to have a hinge brace? Please contact her to clarify. Meeta Kirk MA documented in this encounterOhiohealth Dublin [facility] Hospital10-10-2024 Telephone encounter Note * Telephone Encounter - Tania Umanzor MSW - 05/19/2024 12:40 PM EDT Patient called Sw to ask if [facility] [place] offers transportation to medical appts. This Sw noted no, [facility] [place] does not provide transportation to medical appts. Patient notes that she has been having trouble with rides from her Medicaid Managed Care plan. Patient states that she will try her insurance for ride to upcoming appts. Sw also noted [place] as another option for rides to appts and see if she can utilize those rides with cost help from [employer]. Patient notes that she will check with insurance and [employer] Medicaid plan for ride to upcoming appts. [facility]10-10-2024 Miscellaneous Notes* Telephone Encounter - Tania Umanzor MSW - 05/19/2024 12:40 PM EDT Patient called Sw to ask if [facility] [place] offers transportation to medical appts. This Sw noted no, [facility] [place] does not provide transportation to medical appts. Patient notes that she has been having trouble with rides from her Medicaid Managed Care plan. Patient states that she will try her insurance for ride to upcoming appts. Sw also noted [place] as another option for rides to appts and see if she can utilize those rides with cost help from [employer]. Patient notes that she will check with insurance and [employer] Medicaid plan for ride to upcoming appts. documented in this encounterOhiohealth Dublin [facility] Hospital10-10-2024 Telephone encounter Note * Telephone Encounter - Meeta Kirk MA - 05/19/2024 12:02 PM EDT Pt was just in the office and was told something about a hinge brace. She is still in her post op brace. Is she to have a hinge brace? Please contact her to clarify. Meeta Kirk MA [facility]10-10-2024 NoteMer[facility]10-10-2024 History of Present illness Narrative* Irene Randolph DO - 05/19/2024 9:11 AM EDT Images from the original note were not included. Follow Up Visit Chief Complaint Sri Chacon is a 49 year old female who presents today for follow up office visit. Patient presents with: Left Knee - Post Op History of Present Illness PAIN EVALUATION 05/13/2024 1228 Pain Level: 10 Pain Location: Knee-Left Description: Aching;Contraction;Cramping;Crushing;Cutting;Pressure;Shooting;Spasm;Stabbing;Th robbing Duration Units: Months Frequency: Continuous HPI: Sri Chacon is a 49 year old female for a follow up visit 6 weeks 1 day post op left knee arthroscopy, medial meniscus root/posterior horn repair. Pain history is noted as above. Patient statesshe has had no improvement since last visit. Arrives in TROM brace and using crutches. Has only gone to one PT session, Is there any overall improvement in your condition? No Any new injury, since being seen last: No REVIEW OF SYMPTOMS: Patient did not have, and does not currently have, any weight loss, malaise, fever, chills, headache, chest pain, chest pressure, palpitations, cough, shortness of breath, orthopnea, paroxsymal nocturnal dyspnea, nausea, vomiting, diarrhea, constipation, melena, hematochezia, urinary difficulties, prolonged bleeding, easily bruising, heat or cold intolerance, new onset joint pain or swelling, newonset extremity weakness or numbness, new onset auditory or visual disturbances, lightheadedness, dizziness, partial loss of consciousness or full loss of consciousness. Current Outpatient Medications Medication Sig zonisamide (ZONEGRAN) 100 mg capsule Take 2 capsules by mouth every evening. LAMICTAL XR 200 mg 24 hr tablet Take 2 tablets by mouth every evening. cholecalciferol, Vitamin D3, (VITAMIN D3) 1,250 mcg (50,000 unit) cap capsule Take 1 capsule by mouth one time a week for 12 doses. DO NOT REFILL atogepant (QULIPTA) 60 mg tablet Take 1 tablet (60 mg) by mouth once daily. (Patient not taking: Reported on 04/21/2024) No current facility-administered medications for this visit. Physical Exam Vitals: There were no vitals taken for this visit. Psych: Pleasant, good affect and mood General Appearance: Well appearing, alert, in no acute distress, well-hydrated, well nourished.. Skin: Skin color, texture, turgor normal, no suspicious rashes or lesions. Peripheral Pulses: Normal. Neurologic: Gait normal. Reflexes normal and symmetric. Sensation grossly intact.. Lymph Nodes: No cervical lymphadenopathy, No supraclavicular lymphadenopathy, No axillary lymphadenopathy., and No inguinal lymphadenopathy.. Respiratory: No recent pulmonary infection, hemoptysis, chronic cough, or shortness of breath at rest Rheumatologic: Joint deformities: left knee Right Knee Exam Right knee exam is normal. Muscle Strength The patient has normal right knee strength. Tenderness The patient is experiencing no tenderness. Range of Motion Extension: normal Flexion: normal Tests Kindra: Anterior - negative Posterior - negative Drawer: Anterior - negative Posterior - negative Other Erythema: absent Sensation: normal Pulse: present Swelling: none Left Knee Exam Muscle Strength The patient has normal left knee strength. Tenderness The patient is experiencing no tenderness. Range of Motion Extension: abnormal Flexion: abnormal Tests Kindra: Anterior - negative Posterior - negative Drawer: Anterior - negative Posterior - negative Other Erythema: absent Scars: present Sensation: normal Pulse: present Swelling: none Comments: Neg homans bilaterally 20 deg flexn contracture, steri strips still on skin Neg homans/ no calf pain Assessment and Plan Radiographs: No imaging to review. Impression: Encounter Diagnosis ICD-10-CM 1. 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 We discussed strategies for decreasing pain and improving strength, stability and motion. Patient's questions were answered in detailed. Patient verbalizes understanding and agrees with the treatment plan as discussed. Brace at night as flexion contracture of left knee Discussed need to be compliant with PT, extension Staff message sent PT, Discussed ok to shower, wear trom to sleep, how to get to full extension, etc Patient aware and in agreement of plan. All questions answered. Irene Randolph D.O. M.P.HKarishma documented in this encounterOhiohealth Dublin [facility] Hospital10-03-2024 History of Present illness Narrative* Ronnie Pettit, PT - 2024 10:33 AM EDT Program_ID:[id number] Access Code: [email or web address] URL: [email or web address] Date: 2024 Prepared By: Ronnie Pettit Program Notes Exercises - Supine Quadricep Sets - 2 x daily - 7 x weekly - 2 sets - 10 reps - Supine Knee Extension Stretch on Towel Roll - 3 x daily - 7 x weekly - 1-2 sets - reps - Seated Knee Extension Stretch with Chair - 3 x daily - 7 x weekly - 2-4 sets - reps - Supine Heel Slide with Strap - 2 x daily - 7 x weekly - 2 sets - 10-15 reps - Gluteal Sets - 2 x daily - 7 x weekly - 3 sets - 10 reps - Supine Single Leg Ankle Pumps - 2 x daily - 7 x weekly - 3 sets - 20 reps Patient Education - cc Gait Training Crutches Toe Touch Weight Bearing TTWB * Ronnie Pettit, PT - 2024 9:49 AM EDT Images from the original note were not included. Episode Visit Count: 1 Therapist That Will Accept/Oversee The Plan Of Care: Ronnie Pettit PT. Start of Care Date: 05/12/24 Onset Date: 09/19/23 Plan of Care Certification Date: 05/12/24 Next Certification Due Date: 06/17/24 Patient Identified by Name and Date of : Yes REHABILITATION AND SPORTS THERAPY PHYSICAL THERAPY EVALUATION PLAN OF CARE: Assessment: Sri Chacon presents status-post 35 days since Left Knee Arthroscopy medial meniscus root/posterior horn repair with Dr. Randolph. Her post-op status interferes with standing, walking,walking in the community, stair negotiation, physical activities, working, sleeping, squatting, kneeling . The patient presents with impairments in ADL's, gait, independence in exercise, joint mobility, overall function, range of motion, soft tissue healing, strength, symptom management, and tissuetenderness. PROMIS (Patient-Reported Outcomes Measurement Information System) scores were reviewed and identified as a rehabilitation concern. Prognosis for therapy is Fair due to: clinical presentation .The patient will benefit from skilled therapy services to meet the goals established for this plan of care as noted below. Goals for Episode of Care: established 05/12/24 Patient reported outcome of physical function will increase T-score by a minimum 5 points. [place] in home exercise program. Patient will decrease pain rating by 2 points to meet minimal clinical important difference for numeric pain rating scale. Increase ROM of L Knee Flexion & Extension to 0-120 degrees for improvement in ambulation ability. Increased strength of LLE to 5/5 MMT for improved ADLs and ability for return to work. Normalize Gait without Assistive Device. Patient Goals: Alleviate Pain; Improve function. Time Frame for Goals and Treatment : 08/12/24 Planned Interventions, Frequency, and Duration: Current Frequency: 2x/week Duration: 4 weeks Total Number of Visits Planned: 8 Planned Treatment Interventions: Therapeutic exercise (71197), Neuromuscular re- education (04064), Manual therapy (13999), Therapeutic activities (27220), Self- residential management (28312), Patient/Family/Caregiver Education, Gait Training (13990) PLAN FOR NEXT VISIT: Knee Ext ROM, advances in TTWB gait.. Patient demonstrates good understanding of plan of care and treatment. The above goals and plan of care were discussed and agreed upon by patient/family. SUBJECTIVE: Patient reports squatting on 09/19/23, got stuck and could not rise up. Saw multiple surgeons. Now, Patient comes to PT following Left Knee Arthroscopy medial meniscus root/posterior horn repair with Dr. Randolph on 8/29/24. Pain has been bad since surgery. Reports 10/10 pain today. Has tried to TTWB every day, however unable to tolerate. On B Crutches, NWB with TROM on. Sees Dr. Randolph within the next week, states they may go back in and redo parts of the surgery. States nothing OTC helps. Patient Goals: Alleviate Pain; Improve function. Functional Limitations: standing, walking, walking in the community, stair negotiation, physical activities, working, sleeping, squatting, kneeling Prior Level of Function: Independent without limitations Relevant History Employment: Unemployed Intake Information: Prescription present Previous Treatment: Ice Falls Interview: No positive findings with falls interview Pain: Pain Pain Level: 10 Pain Location: Knee - Left Description: Sharp Frequency: Continuous Post Treatment Pain Post Treatment Pain Level: No Change Post Treatment Pain Location: Knee - Left PROMIS Scales 2024 03/26/2024 03/11/2023 Higher is Better Phys Func - Score 19 (severe dysfunction) 27 (severe dysfunction) 55 (within normal limits) Phys Func - Percentile 0 1 69 Self-Eff Symptom - Score 36 (Low) 32 (Low) Self-Eff Symptom - Percentile 8 4 T-scores: mean of general population = 50. 5 points is clinically meaningfully difference Percentiles provide an indication of how the patient's score ranks in relation to the general population. Higher percentile rankings indicate better function/quality of life. 50th percentile is the average of the general population and indicates half of respondents had a worse score. OBJECTIVE MEASURES WITH LEVEL OF FUNCTION: Knee Observations L Knee Presents with: Incision L Incision: Clean, dry, no drainage. Appropriate post-op healing. Bandages still on. Knee Brace: Post-op brace (Unlocked) (-10 to 60) LE AROM L Knee Extension: -30 Degrees L Knee Flexion: 58 Degrees (AAROM w/ Strap.) LE PROM L Knee Extension: -23 Degrees L Knee Flexion: 65 Degrees LE Joint Mobility L Patellar Mobility: WNL LE Strength L LE Strength: Grossly limited due to post-op status. Able to achieve 1/2 a Left SLR in Supine. Gait Weight Bearing Status: TTWB Gait Observation: Ambulates NWB majority of the time; able to demo multiple steps of TTWB on the LLE on B Crutches. Education: Education Learning Preferences: Demonstration, Explanation, Printed Materials Barriers: None Learning/educational needs: Procedure / Surgery, Home exercise program, Safety, Plan of Care, Gait Training Education Provided: Yes, see treatment interventions for education provided Education Provided To: Patient Education Mode/Type: Demonstration, Explanation/Discussion, Literature/Printed Materials Response to Education/Teach Back: States/Identifies TREATMENT: PT Treatment Interventions: Therapeutic Exercise, Manual Therapy, Gait Training Evaluation Therapeutic Exercise: 1: *LLLD Knee Ext Stretch in Supine: 2 Min, No Weight, PT OP. 2: *L Quad Set w/ Ankle Propped: x10, 5-sec holds. 3: *L Heel Slides with Strap: x10. 4: *Glute Sets: x10, 5-sec hold. 5: *Ankle Pumps with LLE Propped: 1x10. 6: Discussed evaluation findings, rehab process, how to complete HEP and handout provided. Discussed sleeping position, rationale for why not to put any prop/pillow under the knee during resting aswell as to keep toes pointed toward ceiling for no hip ER. Skilled Intervention: Patient was educated in proper exercise technique and purpose for exercises. Reviewed and educated patient on additions/changes for home exercise program as above (*). Skilled judgment was used in selection of appropriate interventions. Provided written instruction for home exercise program to facilitate proper performance and compliance. Correct performance of therapeutic exercises was facilitated with verbal, visual, and tactile cuing. Manual Therapy: 1: L Knee Ext Manual PROM with Ankle Propped: 2x10, 3-sec holds. 2: L Knee Flex Manual PROM with Slide Board Assist: 2x10, 3-sec holds. Skilled Intervention: Manual skills to improve joint mobility, ROM, and decrease pain. Utilized anatomy knowledge of the therapist, and assessment of patient's response to intervention. Gait Trainin: *Resized Crutches; demonstration and discussion of TTWB. CCRST handout provided. Skilled Intervention: Patient was provided supervision during pre-gait/gait training to prevent falls and insure safety. Billing * Evaluation Low Complexity: 1 Unit Therapeutic Exercise Treatment Minutes: 15 Manual TherapyTreatment Minutes: 10 Gait Training Treatment Minutes: 5 Skilled Treatment Time Minutes (timed and untimed codes): 45 Total Session Time (minutes): 50 Session Start Time : 0955 Session Stop Time : 1045 Ronnie Pettit PT, DPT. documented in this encounterOhiohealth Dublin [facility] Hospital10-03-2024 NoteMer[facility]09-18-2024 Note* Addendum Note - Elizabeth Karimi PA-C - 04/27/2024 9:20 AM EDTAddended by: ELIZABETH KARIMI on: 04/27/2024 09:20 AM Modules accepted: Orders [facility]09-18-2024 Miscellaneous Notes* Addendum Note - Elizabeth Karimi PA-C - 04/27/2024 9:20 AM EDTAddended by: ELIZABETH KARIMI on: 04/27/2024 09:20 AM Modules accepted: Orders * Telephone Encounter - Elizabeth Karimi PA-C - 04/27/2024 9:20 AM EDT PDMP website checked and validated. All prescriptions have been APPROPRIATELY filled. No suspiciousactivity was identified. 04/27/2024 by Elizabeth Karimi PA-C The following approved medication requests have been transmitted electronically. Requested Prescriptions Signed Prescriptions Disp Refills oxyCODONE-acetaminophen (PERCOCET) 5-325 mg tablet 15 tablet 0 Sig: Take 1 tablet by mouth every 8 hours as needed for pain for up to 7 days. Authorizing Provider: ELIZABETH KARIMI PA-C * Telephone Encounter - Isabel Dahl RN - 04/27/2024 8:49 AM EDT Patient called in and c/o ongoing right knee pain s/p surgery, pt states she is having spasms and she is unable to sleep due to the pain. Pt is requesting pain medication to be called into [facility] in [place], she gets no relief from Tylenol or Motrin. Pt is scheduled for PT to being 3 and f/u with Dr Randolph on 05/19 but needs pain control before then. documented in this encounterOhiohealth Dublin [facility] Hospital09-18-2024 Telephone encounter Note * Telephone Encounter - Elizabeth Karimi PA-C - 04/27/2024 9:20 AM EDT PDMP website checked and validated. All prescriptions have been APPROPRIATELY filled. No suspiciousactivity was identified. 04/27/2024 by Elizabeth Karimi PA-C The following approved medication requests have been transmitted electronically. Requested Prescriptions Signed Prescriptions Disp Refills oxyCODONE-acetaminophen (PERCOCET) 5-325 mg tablet 15 tablet 0 Sig: Take 1 tablet by mouth every 8 hours as needed for pain for up to 7 days. Authorizing Provider: ELIZABETH KARIMI PA-C [facility]09-18-2024 Telephone encounter Note* Telephone Encounter - Isabel Dahl RN - 04/27/2024 8:49 AM EDT Patient called in and c/o ongoing right knee pain s/p surgery, pt states she is having spasms and she is unable to sleep due to the pain. Pt is requesting pain medication to be called into [facility] in [place], she gets no relief from Tylenol or Motrin. Pt is scheduled for PT to being 89 and f/u with Dr Randolph on 05/19 but needs pain control before then. [facility]09-12-2024 NoteMer[facility]09-12-2024 History of Present illness Narrative* Irene Randolph DO - 04/21/2024 10:38 AM EDT Images from the original note were not included. Follow Up Visit Chief Complaint Sri Chacon is a 48 year old female who presents today for follow up office visit. Patient presents with: Left Knee - Established Patient, Post Op History of Present Illness PAIN EVALUATION 04/14/2024 1650 04/21/2024 1040 Pain Level: 10 8 Pain Location: Knee-Left Knee-Left Description: Aching;Contraction;Cramping;Cutting;Pressure;Pulsating;Sharp;Throbbing Throbbing Duration Amount of Time: -- -- post op Duration Units: Months -- Frequency: Continuous Continuous Intervention/Comfort measure: Medication Medication HPI: Sri Chacon is a 48 year old female for a follow up visit 2 weeks post op left knee arthroscopy medial meniscus root/posterior horn repair. Pain history is noted as above. Left knee follow up Is there any overall improvement in your condition? Yes Any new injury, since being seen last: No REVIEW OF SYMPTOMS: Patient did not have, and does not currently have, any weight loss, malaise, fever, chills, headache, chest pain, chest pressure, palpitations, cough, shortness of breath, orthopnea, paroxsymal nocturnal dyspnea, nausea, vomiting, diarrhea, constipation, melena, hematochezia, urinary difficulties, prolonged bleeding, easily bruising, heat or cold intolerance, new onset joint pain or swelling, newonset extremity weakness or numbness, new onset auditory or visual disturbances, lightheadedness, dizziness, partial loss of consciousness or full loss of consciousness. Current Outpatient Medications Medication Sig zonisamide (ZONEGRAN) 100 mg capsule Take 2 capsules by mouth every evening. LAMICTAL XR 200 mg 24 hr tablet Take 2 tablets by mouth every evening. cholecalciferol, Vitamin D3, (VITAMIN D3) 1,250 mcg (50,000 unit) cap capsule Take 1 capsule by mouth one time a week for 12 doses. DO NOT REFILL atogepant (QULIPTA) 60 mg tablet Take 1 tablet (60 mg) by mouth once daily. (Patient not taking: Reported on 04/21/2024) No current facility-administered medications for this visit. Physical Exam Vitals: There were no vitals taken for this visit. Psych: Pleasant, good affect and mood General Appearance: Well appearing, alert, in no acute distress, well-hydrated, well nourished.. Skin: Skin color, texture, turgor normal, no suspicious rashes or lesions. Peripheral Pulses: Normal. Neurologic: Gait normal. Reflexes normal and symmetric. Sensation grossly intact.. Lymph Nodes: No cervical lymphadenopathy, No supraclavicular lymphadenopathy, No axillary lymphadenopathy., and No inguinal lymphadenopathy.. Respiratory: No recent pulmonary infection, hemoptysis, chronic cough, or shortness of breath at rest Rheumatologic: Joint deformities: left knee pain Right Knee Exam Right knee exam is normal. Muscle Strength The patient has normal right knee strength. Tenderness The patient is experiencing no tenderness. Range of Motion Extension: normal Flexion: normal Tests Kindra: Anterior - negative Posterior - negative Drawer: Anterior - negative Posterior - negative Other Erythema: absent Sensation: normal Pulse: present Swelling: none Left Knee Exam Range of Motion Extension: abnormal Flexion: abnormal Other Erythema: absent Scars: present Sensation: normal Pulse: present Swelling: mild Comments: Neg homans bilaterally Left leg calf pain Able to get full extension with assistance on table left leg No signs of infection Assessment and Plan Radiographs: I have reviewed the images with the patient and family. Impression: Encounter Diagnosis ICD-10-CM 1. Pain of left calf M79.662 US DVT LOWER LEFT US LEG VEIN DVT UNL VAS LAB 2. Chronic pain of left knee M25.562 CONSULT TO PHYSICAL THERAPY G89.29 3. Acute medial meniscus tear of left knee, initial encounter S83.242A CONSULT TO PHYSICAL THERAPY Today, in detail, through a thorough evaluation, we discussed possible etiologies of pain and our plans for further diagnostic and therapeutic interventions. We discussed strategies for decreasing pain and improving strength, stability and motion. Patient's questions were answered in detailed. Patient verbalizes understanding and agrees with the treatment plan as discussed. Follow up in 4 weeks trom to hinged and progress to wbat Left knee images reviewed Discussed importance of extension extension extension Brace not fitting appr, so refitted it PT rx given Calf pain, neg doppler today Patient aware and in agreement of plan. All questions answered. Irene Randolph D.O. M.P.H. documented in this [facility] History and physical note* Marcy Salinas APRN.SPOOL TENDER - 04/04/2024 10:30 AM EDT Images from the original note were not included. [facility] HISTORY AND PHYSICAL EXAMINATION SERVICE DATE: 04/04/2024 SERVICE TIME: 10:23 AM Patient has been identified by name and date of : Yes Reason for contact: PACC visit Accompanied by: Self This is a virtual visit using [employer] Video Visit. It required patient- provider interaction for the medical decision making as documented below. I have communicated my name and active licensure. The patient's identity and physical location wereverified at the time of this visit. Either the patient or their legal videotape sales representative has been informed of the risks and benefits of and alternatives to treatment through a remote evaluation and consents to proceed with the evaluation remotely. PRIMARY CARE PHYSICIAN: No primary care provider on file. REASON FOR VISIT: Sri Chacon is a 48 year old female who is scheduled for Left - ARTHROSCOPY, KNEE MENISCUS REPAIR MEDIAL OR LATERAL at the request of Dr. Irene Randolph for consultation. My final recommendation will be communicated back to the requesting physician by way of shared medical record or letter. Assessment Other convulsions (HCC) Assessment: saw neurology 12/26/2022. 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 Last OV 02/2023- weight 190 and weight 08/2023 was 171lb . Patient states has never been 190lb and has lost weight and current weight 140 [place] Activity Status Index: METS: Walk indoors, such as around the house (1.75 METs) Do light work around the house, such as dusting or washing dishes (2.70 METs) Take care of self; that is eating, dressing, bathing, using the toilet (2.75 METs) Walk a block or two on level ground (2.75 METs) Do moderate work around the house, such as vacuuming, sweeping floors, or carrying in groceries (3.50 METs) Do yardwork, such as raking leaves, weeding, or pushing a power mower (4.50 METs) Climb a flight of stairs or walk up a hill (5.50 METs) DASI Score: 23.45 Patient denies any chest pain or undue shortness of breath with the above physical activity. Clinical Frailty Scale: 2. Well STOP-Bang Score: Denies snoring loudly Denies feeling tired, fatigued, or sleepy during the daytime Has not been observed to stop breathing or choking/gasping during sleep Denies having high blood pressure BMI less than or equal to 35 kg/m^2 Patient 50 years old or younger Does not have a large neck Non-male patient STOP-Bang Score: 0 ANESTHESIA FINDINGS: Intubation History: No history of difficult intubation Significant Anesthesia Considerations: none Airway History: No history of difficult airway I - PHYSICAL EVALUATION AIRWAY Patient intubated: No. Tracheostomy tube not present Mallampati: I. TM distance: >3 FB. Neck ROM: full ROM without neurological symptoms. Mouth opening: adequate. Short neck: no. Thick neck: no DENTAL Dentures, upper: partial. II - ANESTHESIA PLAN Anesthetic plan additional comments: *PACC/TCI - anesthesia choice. Beta Lyndsey Monitoring Plan Post Procedure Analgesic Plan Prepared for surgery: This patient is optimally prepared for surgery. CONSULTS: Patient does not require consults for optimization at this time. The Following Tests/Procedures Have Been Initiated: Labs not indicated per PACC protocol, EKG not indicated per PACC protocol Planned Anesthetic: Per anesthesia choice Subjective CHIEF COMPLAINT: Pre-op visit HPI: 48 year old female with left knee pain that started 09/2023 after fall. Has attempted conservative treatment without relief. Elected fro above surgery REVIEW OF SYSTEMS: PAIN ASSESSMENT: General: No weight loss, malaise or fevers. Neuro: No history of TIA's, stroke, HORTICULTURE WORKER tumor, impaired sensorium, hemiplegia, paraplegia or quadraplegia. No neurological symptoms or problems. + Migraines- daily Respiratory: No history of current cough or dyspnea, or pneumonia in the past 6 weeks. No history of respiratory/pulmonary symptoms or problems. Cardiovascular: No history of HTN requiring medication, no history of angina, CHF, IA, cardiac surgery or stents. Denies rest pain, gangrene or revascularization/amputation for PVD. No history of cardiovascular symptoms or problems. GI: No history of GI symptoms or problems. No history of esophageal varices, recent ascites, or ETOH greater than 2 drinks per day. 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 : N/A, No LMP recorded. Patient has had a hysterectomy. Endocrine: No history of diabetes. Has not taken steroids within the past 30 days. No history of endocrinological symptoms or problems. Hematology: No history of bleeding or clotting disorder. Pt is not taking anti- coagulation or platelet medications. No history of hematological symptoms or problems. Oncology: No history of CA metastasis, chemo within 30 days, or radiotherapy within 90 days. Has not lost 10% of body wt in 6 months. No history of oncological symptoms or problems. Psych: No history of psychiatric symptoms or problems. Musculoskeletal: See HPI Skin: Negative for lesions, rash and itching. The patient has the following: ACTIVE PROBLEM LIST Asthma Sprain of Right Ankle Migraine Other Convulsions Nonrheumatic Mitral (Valve) Prolapse Essential Hypertension Depression Covid Immunization Dates Overdue - Covid-19 Vaccine () Overdue since 04/10/2023 12/24/2020 Imm Admin: COVID-19 original vaccine, age 12+ yr, monovalent (PFIZER- BIONTECH - PURPLE TOP) 12/03/2020 Imm Admin: COVID-19 original vaccine, age 12+ yr, monovalent (PFIZER- BIONTECH - PURPLE TOP) PAST MEDICAL HISTORY 07/03/2006: Calculus of kidney 03/16/2008: Calculus of ureter 02/01/2013: Convulsions (HCC) No date: Depression 01/01/2018: Essential hypertension 12/25/2017: Gallstone 03/16/2008: Hydronephrosis No date: Hypothyroidism No date: IBS (irritable bowel syndrome) 01/21/2018: Lactose intolerance in adult 02/01/2013: Migraine 06/15/2017: Nonrheumatic mitral (valve) prolapse No date: Seizure disorder (HCC) Comment: last 04/2021 No date: Traumatic brain injury (HCC) No date: Unspecified asthma(493.90) No date: Unspecified ectopic without intrauterine Comment: Ectopic PAST SURGICAL HISTORY No date: CYSTOSCOPY,URETEROSCOPY,LITHOTRIPSY 1995: DILATION & CURETTAGE DX&/THER NONOBSTETRIC Comment: Dilation & curettage 1999: PAST SURGICAL HISTORY OF Comment: C section 2009: PAST SURGICAL HISTORY OF Comment: heart cath 1991: PAST SURGICAL HISTORY OF Comment: right knee surgery with muscle and scar tissue removal post fx No date: PAST SURGICAL HISTORY OF; Right Comment: hand marley Dr. Nguyen 2020: PAST SURGICAL HISTORY OF; Right Comment: right thumb CMC arthroplasty 01/2005: TOTAL ABDOMINAL HYSTERECT W/WO RMVL TUBE OVARY Comment: Hysterectomy, [facility] FAMILY HISTORY Problem Relation Age of Onset Arthritis Mother Cataract Mother other (pacemaker, defibrillator) Mother other (mitral valve) Father Cataract Maternal Grandmother Difficulty with anesthesia No Family History Social History Tobacco Use Smoking status: Never Smokeless tobacco: Never Vaping Use Vaping status: Never Used Substance Use Topics Alcohol use: Yes Comment: rare Drug use: No Prior to Admission medications as of 02/04/24 1423 Medication Sig Last Dose Taking zonisamide (ZONEGRAN) 100 mg capsule Take 2 capsules by mouth every evening. Yes LAMICTAL XR 200 mg 24 hr tablet Take 2 tablets by mouth every evening. Yes cholecalciferol, Vitamin D3, (VITAMIN D3) 1,250 mcg (50,000 unit) cap capsule Take 1 capsule by mouth one time a week for 12 doses. DO NOT REFILL Yes atogepant (QULIPTA) 60 mg tablet Take 1 tablet (60 mg) by mouth once daily. No medication comments found. ALLERGIES Allergen Reactions Asa [Salicylates] Swelling Aspirin Rash Benadryl [Diphenhyd* Mental Status Change Codeine Hives swelling-airway/face Fish Containing Pro* Rash Morphine Swelling Penicillin G Hives, Swelling Phenergan [Prometha* Intolerance mental status change Shellfish Derived Anaphylaxis Objective PHYSICAL EXAM: VITALS: Resp 18 Ht 5' 1 (1.55m) Wt 140 lb (63.5kg) BMI 26.47 kg/(m^2). VIDEO EXAM: (if completed, performed via video enabled technology) GENERAL: alert and appropriate, in no distress SKIN: no rash noted EYES: no injection and visual acuity is grossly normal OROPHARYNX: moist mucus membranes NECK: full ROM, no cervical LNs noted RESPIRATORY: breathing non-labored CHEST: equal chest rise with normal respiratory effort HEART: 76 bpm palpated by patient, no edema or JVD ABDOMEN: soft and non-tender NEUROLOGIC: no obvious deficit Diagnostic tests reviewed for today's visit: No new labs or tests Instructions Given to Patient: Instructions located in the after visit summary. Patient given verbal and written preop instructions and voices comprehension and compliance. SIGNATURE: Marcy Salinas APRN.CNP PATIENT NAME: Sri Chacon DATE: 04/04/2024 TIME: [facility]08-26-[facility]24 History and physical note* Marcy Salinas APRN.CNP - 04/04/2024 10:30 AM EDT Images from the original note were not included. [facility] HISTORY AND PHYSICAL EXAMINATION SERVICE DATE: 04/04/2024 SERVICE TIME: 10:23 AM Patient has been identified by name and date of : Yes Reason for contact: PACC visit Accompanied by: Self This is a virtual visit using [employer] Zoom Video Visit. It required patient- provider interaction for the medical decision making as documented below. I have communicated my name and active licensure. The patient's identity and physical location wereverified at the time of this visit. Either the patient or their legal videotape sales representative has been informed of the risks and benefits of and alternatives to treatment through a remote evaluation and consents to proceed with the evaluation remotely. PRIMARY CARE PHYSICIAN: No primary care provider on file. REASON FOR VISIT: Sri Chacon is a 48 year old female who is scheduled for Left - ARTHROSCOPY, KNEE MENISCUS REPAIR MEDIAL OR LATERAL at the request of Dr. Irene Randolph for consultation. My final recommendation will be communicated back to the requesting physician by way of shared medical record or letter. Assessment Other convulsions (HCC) Assessment: saw neurology 12/26/2022. 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 Last OV 02/2023- weight 190 and weight 08/2023 was 171lb . Patient states has never been 190lb and has lost weight and current weight 140 [place] Activity Status Index: METS: Walk indoors, such as around the house (1.75 METs) Do light work around the house, such as dusting or washing dishes (2.70 METs) Take care of self; that is eating, dressing, bathing, using the toilet (2.75 METs) Walk a block or two on level ground (2.75 METs) Do moderate work around the house, such as vacuuming, sweeping floors, or carrying in groceries (3.50 METs) Do yardwork, such as raking leaves, weeding, or pushing a power mower (4.50 METs) Climb a flight of stairs or walk up a hill (5.50 METs) DASI Score: 23.45 Patient denies any chest pain or undue shortness of breath with the above physical activity. Clinical Frailty Scale: 2. Well STOP-Bang Score: Denies snoring loudly Denies feeling tired, fatigued, or sleepy during the daytime Has not been observed to stop breathing or choking/gasping during sleep Denies having high blood pressure BMI less than or equal to 35 kg/m^2 Patient 50 years old or younger Does not have a large neck Non-male patient STOP-Bang Score: 0 ANESTHESIA FINDINGS: Intubation History: No history of difficult intubation Significant Anesthesia Considerations: none Airway History: No history of difficult airway I - PHYSICAL EVALUATION AIRWAY Patient intubated: No. Tracheostomy tube not present Mallampati: I. TM distance: >3 FB. Neck ROM: full ROM without neurological symptoms. Mouth opening: adequate. Short neck: no. Thick neck: no DENTAL Dentures, upper: partial. II - ANESTHESIA PLAN Anesthetic plan additional comments: *PACC/TCI - anesthesia choice. Beta Lyndsey Monitoring Plan Post Procedure Analgesic Plan Prepared for surgery: This patient is optimally prepared for surgery. CONSULTS: Patient does not require consults for optimization at this time. The Following Tests/Procedures Have Been Initiated: Labs not indicated per PACC protocol, EKG not indicated per PACC protocol Planned Anesthetic: Per anesthesia choice Subjective CHIEF COMPLAINT: Pre-op visit HPI: 48 year old female with left knee pain that started 09/2023 after fall. Has attempted conservative treatment without relief. Elected fro above surgery REVIEW OF SYSTEMS: PAIN ASSESSMENT: General: No weight loss, malaise or fevers. Neuro: No history of TIA's, stroke, HORTICULTURE WORKER tumor, impaired sensorium, hemiplegia, paraplegia or quadraplegia. No neurological symptoms or problems. + Migraines- daily Respiratory: No history of current cough or dyspnea, or pneumonia in the past 6 weeks. No history of respiratory/pulmonary symptoms or problems. Cardiovascular: No history of HTN requiring medication, no history of angina, CHF, IA, cardiac surgery or stents. Denies rest pain, gangrene or revascularization/amputation for PVD. No history of cardiovascular symptoms or problems. GI: No history of GI symptoms or problems. No history of esophageal varices, recent ascites, or ETOH greater than 2 drinks per day. 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 : N/A, No LMP recorded. Patient has had a hysterectomy. Endocrine: No history of diabetes. Has not taken steroids within the past 30 days. No history of endocrinological symptoms or problems. Hematology: No history of bleeding or clotting disorder. Pt is not taking anti- coagulation or platelet medications. No history of hematological symptoms or problems. Oncology: No history of CA metastasis, chemo within 30 days, or radiotherapy within 90 days. Has not lost 10% of body wt in 6 months. No history of oncological symptoms or problems. Psych: No history of psychiatric symptoms or problems. Musculoskeletal: See HPI Skin: Negative for lesions, rash and itching. The patient has the following: ACTIVE PROBLEM LIST Asthma Sprain of Right Ankle Migraine Other Convulsions Nonrheumatic Mitral (Valve) Prolapse Essential Hypertension Depression Covid Immunization Dates Overdue - Covid-19 Vaccine () Overdue since 04/10/2023 12/24/2020 Imm Admin: COVID-19 original vaccine, age 12+ yr, monovalent (MADS - PURPLE TOP) 12/03/2020 Imm Admin: COVID-19 original vaccine, age 12+ yr, monovalent (MADS - PURPLE TOP) PAST MEDICAL HISTORY 07/03/2006: Calculus of kidney 03/16/2008: Calculus of ureter 02/01/2013: Convulsions (HCC) No date: Depression 01/01/2018: Essential hypertension 12/25/2017: Gallstone 03/16/2008: Hydronephrosis No date: Hypothyroidism No date: IBS (irritable bowel syndrome) 01/21/2018: Lactose intolerance in adult 02/01/2013: Migraine 06/15/2017: Nonrheumatic mitral (valve) prolapse No date: Seizure disorder (HCC) Comment: last 04/2021 No date: Traumatic brain injury (HCC) No date: Unspecified asthma(493.90) No date: Unspecified ectopic without intrauterine Comment: Ectopic PAST SURGICAL HISTORY No date: CYSTOSCOPY,URETEROSCOPY,LITHOTRIPSY 1995: DILATION & CURETTAGE DX&/THER NONOBSTETRIC Comment: Dilation & curettage 1999: PAST SURGICAL HISTORY OF Comment: C section 2009: PAST SURGICAL HISTORY OF Comment: heart cath 1991: PAST SURGICAL HISTORY OF Comment: right knee surgery with muscle and scar tissue removal post fx No date: PAST SURGICAL HISTORY OF; Right Comment: hand marley Dr. Nguyen 2020: PAST SURGICAL HISTORY OF; Right Comment: right thumb CMC arthroplasty 01/2005: TOTAL ABDOMINAL HYSTERECT W/WO RMVL TUBE OVARY Comment: Hysterectomy, [facility] FAMILY HISTORY Problem Relation Age of Onset Arthritis Mother Cataract Mother other (pacemaker, defibrillator) Mother other (mitral valve) Father Cataract Maternal Grandmother Difficulty with anesthesia No Family History Social History Tobacco Use Smoking status: Never Smokeless tobacco: Never Vaping Use Vaping status: Never Used Substance Use Topics Alcohol use: Yes Comment: rare Drug use: No Prior to Admission medications as of 02/04/24 1423 Medication Sig Last Dose Taking zonisamide (ZONEGRAN) 100 mg capsule Take 2 capsules by mouth every evening. Yes LAMICTAL XR 200 mg 24 hr tablet Take 2 tablets by mouth every evening. Yes cholecalciferol, Vitamin D3, (VITAMIN D3) 1,250 mcg (50,000 unit) cap capsule Take 1 capsule by mouth one time a week for 12 doses. DO NOT REFILL Yes atogepant (QULIPTA) 60 mg tablet Take 1 tablet (60 mg) by mouth once daily. No medication comments found. ALLERGIES Allergen Reactions Asa [Salicylates] Swelling Aspirin Rash Benadryl [Diphenhyd* Mental Status Change Codeine Hives swelling-airway/face Fish Containing Pro* Rash Morphine Swelling Penicillin G Hives, Swelling Phenergan [Prometha* Intolerance mental status change Shellfish Derived Anaphylaxis Objective PHYSICAL EXAM: VITALS: Resp 18 Ht 5' 1 (1.55m) Wt 140 lb (63.5kg) BMI 26.47 kg/(m^2). VIDEO EXAM: (if completed, performed via video enabled technology) GENERAL: alert and appropriate, in no distress SKIN: no rash noted EYES: no injection and visual acuity is grossly normal OROPHARYNX: moist mucus membranes NECK: full ROM, no cervical LNs noted RESPIRATORY: breathing non-labored CHEST: equal chest rise with normal respiratory effort HEART: 76 bpm palpated by patient, no edema or JVD ABDOMEN: soft and non-tender NEUROLOGIC: no obvious deficit Diagnostic tests reviewed for today's visit: No new labs or tests Instructions Given to Patient: Instructions located in the after visit summary. Patient given verbal and written preop instructions and voices comprehension and compliance. SIGNATURE: Marcy Salinas APRN.CNP PATIENT NAME: Sri Chacon DATE: 04/04/2024 TIME: [facility] Instructions* Patient Instructions* Marcy Salinas APRN.CNP - 04/04/2024 10:22 AM EDT PATIENT PREOPERATIVE INSTRUCTIONS Irene Randolph,* scheduled you for your procedure at this surgery center: [facility]: [phone] --[id number] [id number]. Please read below carefully for your personalized instructions. Arrival Time for Surgery: - The Surgery Center or hospital where you are having surgery will call the afternoon before surgery (or Thursday for Thursday surgery) with a scheduled arrival time. - If you have not heard by 4 pm, please contact the surgery center above. Please be aware that emergency situations arise, which may delay or change your surgical time. If this happens, we will notify you as soon as possible and regret any inconvenience. Dietary Restrictions: - No solid food after midnight. - You may have 12 ounces of clear liquids (water, clear juices such as apple juice or gatorade, carbonated beverages, clear tea, black coffee, jello) until 2 hours before scheduled arrival at facility. No milk or cream No pulp juices Medications: Unless instructed differently below, stay on all of your medications until your surgery. Approved medications to take the morning of surgery with a sip of water: Lamictal If you start any new medications after today's visit, please contact the surgeon's office. Blood Thinning Medications: - Stop NSAIDS (Ibuprofen, Advil, Aleve, Motrin, Celebrex, Mobic, etc.) 7 days before surgery, as directed by your surgeon. - Stop Aspirin 7 days before surgery, as directed by your surgeon. - Stop Vitamin E, ALL multi-vitamins, herbals and dietary supplements 7 days before surgery. - You may take Tylenol (Acetaminophen) or any of your pain medications that do not contain aspirin or NSAIDS as needed. Important Reminders: - If you are prescribed inhalers for breathing, continue using them. - Candy, mints, and tobacco products are NOT permitted the morning of surgery. - Hearing aids, dentures and glasses may be worn the morning of surgery. - NO jewelry, body piercings, makeup, hairpins or contacts are to be worn the day of surgery. If you develop symptoms such as a fever, cold, or flu, or have other changes to your health within TWO DAYS of scheduled surgery or the morning of surgery, please contact the surgery center above. Personal Belongings: -Please have photo ID and insurance cards. -If you do not have a copy of advance directives on file with us, please bring a copy with you on the day of surgery. - Leave ALL valuables and money at home or with family members. For Outpatient Procedures: - YOU MUST HAVE A RESPONSIBLE ROVING TELLER TAKE YOU HOME. A QA ARCHITECT OR GIS DATABASE ADMINISTRATOR CANNOT BE MADE A RESPONSIBLE ROVING TELLER. - We recommend that a responsible person stays with you overnight to take care of you. - You cannot stay in a hotel alone after outpatient surgery. You will not be permitted to have yoursurgery, if you do not have someone to take care of you. If you already have an Advance Directive, please fax a copy to [phone] or email to for it to be added to your chart. If you do not have an Advance Directive, you can find the appropriate form and more information at [email or web address]. We recommend that youcomplete the Advance Directive form found on the website and bring it with you the day of your surgery. It can be witnessed and scanned into your chart that day. documented in this encounterOhio[facility]24 Telephone encounter Note * Telephone Encounter - Camelia Meadows - 04/01/2024 1:14 PM EDT Pt called in and stated that she is disappointed with the communication and how short notice it wasto get into PT prior to surgery. Referral for prehab was placed today and surgery is on 04/07/24. Due to short notice pt was scheduled for first available in [place] tomorrow. ab [facility]08-23-[facility]24 Miscellaneous Notes* Telephone Encounter - Camelia Meadows - 04/01/2024 1:14 PM EDT Pt called in and stated that she is disappointed with the communication and how short notice it wasto get into PT prior to surgery. Referral for prehab was placed today and surgery is on 04/07/24. Due to short notice pt was scheduled for first available in [place] tomorrow. ab documented in this encounterOhiohealth Dublin [facility]08-21-2024 [facility] History of Present illness Narrative* Irene Randolph DO - 03/30/2024 11:26 AM EDT Images from the original note were not included. Reason for Visit/Chief Complaint Sri Chacon is a 48 year old female who presents today for a new evaluation of following complaint: Patient presents with: Left Knee - Knee Pain, New, Swelling History of Present Illness: PAIN EVALUATION 03/26/2024 0917 Pain Level: 10 Pain Location: Knee-Left Description: Crushing;Cutting;Pressure;Pulsating;Radiating;Sharp;Shooting;Stabbing;Throbbing; Tightness Duration Units: Months Frequency: Continuous HPI: Sri Chacon is a 48 year old female presenting today with left knee pain. Patient has been experiencing knee pain since 09/19/23 when she sustained a fall. She has been seen by 4 other orthopedic providers that have treated her conservatively. Patient is here asking if there is anything surgical that can be done and she is using a brace and crutches. She states her knee continues to give out. Pain history is noted as above. Denies calf pain, numbness, tingling, fever, chills or other constitutional symptoms. Previous Treatments: Ice: Yes Heat: No Brace: Yes, hinge foldover NSAIDs: Yes, ibuprofen PRN Injections: Yes, outside of [facility] Surgeries: No Physical Therapy: Yes x6 weeks Review of Systems: Patient did not have, and does not currently have, any weight loss, malaise, fever, chills, headache, chest pain, chest pressure, palpitations, cough, shortness of breath, orthopnea, paroxsymal nocturnal dyspnea, nausea, vomiting, diarrhea, constipation, melena, hematochezia, urinary difficulties, prolonged bleeding, easily bruising, heat or cold intolerance, new onset joint pain or swelling, newonset extremity weakness or numbness, new onset auditory or visual disturbances, lightheadedness, dizziness, partial loss of consciousness or full loss of consciousness. Current Outpatient Medications on File Prior to Visit Medication Sig atogepant (QULIPTA) 60 mg tablet Take 1 tablet (60 mg) by mouth once daily. triamcinolone (KENALOG) 0.025 % cream Apply 1 application to affected area two times a day. cyclobenzaprine (FLEXERIL) 10 mg tablet Take 1 tablet by mouth daily at bedtime. zonisamide (ZONEGRAN) 100 mg capsule Take 2 [...] Apply to affected area three times daily. (Patient not taking: Reported on 02/27/2024) levothyroxine (SYNTHROID) 75 mcg tablet Take 1 tablet by mouth once daily. Take on empty stomach. For Thyroid No current facility-administered medications on file prior to visit. ALLERGIES Allergen Reactions Asa [Salicylates] Swelling Aspirin Rash Benadryl [Diphenhyd* Mental Status Change Codeine Hives swelling-airway/face Fish Containing Pro* Rash Morphine Swelling Penicillin G Hives, Swelling Phenergan [Prometha* Intolerance mental status change Shellfish Derived Anaphylaxis Physical Exam: Vitals: There were no vitals taken for this visit. Psych: Pleasant, good affect and mood General Appearance: Well appearing, alert, in no acute distress, well-hydrated, well nourished.. Skin: Skin color, texture, turgor normal, no suspicious rashes or lesions. Peripheral Pulses: Normal. Neurologic: Gait normal. Reflexes normal and symmetric. Sensation grossly intact.. Lymph Nodes: No cervical lymphadenopathy, No supraclavicular lymphadenopathy, No axillary lymphadenopathy., and No inguinal lymphadenopathy.. Respiratory: No recent pulmonary infection, hemoptysis, chronic cough, or shortness of breath at rest Rheumatologic: Joint deformities: left knee pain Right Knee Exam Right knee exam is normal. Muscle Strength The patient has normal right knee strength. Tenderness The patient is experiencing no tenderness. Range of Motion Extension: normal Flexion: normal Tests Kindra: Anterior - negative Posterior - negative Drawer: Anterior - negative Posterior - negative Other Erythema: absent Sensation: normal Pulse: present Swelling: none Left Knee Exam Tenderness The patient is experiencing tenderness in the medial joint line. Range of Motion Extension: normal Flexion: abnormal Tests Millicent: Medial - positive Kindra: Anterior - negative Posterior - negative Drawer: Anterior - negative Posterior - negative Other Erythema: absent Sensation: normal Pulse: present Swelling: mild Comments: Neg homans bilaterally Imaging: Mri shows med men root tear and pf chondro Assessment and Plan: Impression: Encounter Diagnosis ICD-10-CM 1. Chronic pain of left knee M25.562 G89.29 2. Chondromalacia of left patella M22.42 3. Tear of medial meniscus of left knee, current, unspecified tear type, initial encounter S83.242A Plan: Today, in detail, through a thorough evaluation, we discussed possible etiologies of pain and our plans for further diagnostic and therapeutic interventions. We discussed strategies for decreasing pain and improving strength, stability and motion. Patient's questions were answered in detailed. Patient verbalizes understanding and agrees with the treatment plan as discussed. Risks and benefits vs alternatives to treatment were discussed with patient. Risks including but not limited to blood loss, blood clot, infection, neurovascular injury, failure of procedure, need forrevision operation, loss of life and loss of limb. Patient aware of risks and benefits and agrees to proceed with written consent for surgical intervention. Discussed med men repair postop protocol Discussed needs crutches/ trom Patient aware and in agreement of plan. All questions answered. Irene Randolph D.O. M.P.H. documented in this encounterOhiohealth Dublin [facility]07-20-2024 History of Present illness Narrative* Quintin Mcguire MD - 02/27/2024 3:31 PM EDT Patient presents with: Chills: abdominal burning, strange taste x 2 days HPI: Feeling off for a couple days. Positive symptoms: hot/Chills, Mt Dew and water taste like blood, abdominal burning, chronic Headaches, Nausea, epistaxis last week Negative symptoms: Cough, Sore throat, Nasal Congestion, Rhinorrhea, Vomiting, Diarrhea, , OTC: Tylenol Her grandson was isolated for a GI infection but she was not around him. MEDICATIONS: Current Outpatient Medications Medication Sig zonisamide (ZONEGRAN) 100 mg capsule Take 2 capsules by mouth every evening. LAMICTAL XR 200 mg 24 hr tablet Take 2 tablets by mouth every evening. cholecalciferol, Vitamin D3, (VITAMIN D3) 1,250 mcg (50,000 unit) cap capsule Take 1 capsule by mouth one time a week for 12 doses. DO NOT REFILL atogepant (QULIPTA) 60 mg tablet Take 1 tablet (60 mg) by mouth once daily. triamcinolone (KENALOG) 0.025 % cream Apply 1 application to affected area two times a day. cyclobenzaprine (FLEXERIL) 10 mg tablet Take 1 tablet by mouth daily at bedtime. LAMICTAL XR 300 mg 24 hr tablet Take 1 tablet by mouth every morning. lidocaine (XYLOCAINE) 5 % ointment Apply to affected area three times daily. (Patient not taking: Reported on 02/27/2024) levothyroxine (SYNTHROID) 75 mcg tablet Take 1 tablet by mouth once daily. Take on empty stomach. For Thyroid No current facility-administered medications for this visit. ALLERGIES: ALLERGIES Allergen Reactions Asa [Salicylates] Swelling Aspirin Rash Benadryl [Diphenhyd* Mental Status Change Codeine Hives swelling-airway/face Fish Containing Pro* Rash Morphine Swelling Penicillin G Hives, Swelling Phenergan [Prometha* Intolerance mental status change Shellfish Derived Anaphylaxis VITALS: BP 122/72 Pulse 88 Temp 36.4 C (97.6 F) Resp 16 Wt 86.7 kg (191 lb 2.2 oz) SpO2 97% BMI36.12 kg/m PHYSICAL EXAM: GEN: Pleasant, in no acute distress. Ambulates with crutches, wearing knee brace. HEENT: PERRL, EOMI, conjunctiva clear Ears: canals clear. TMs without erythema, bulge, or effusion Sinuses: non-tender frontal sinus, non-tender maxillary sinuses Throat: moist mucous membranes, no erythema, no exudate Neck: supple, no thyromegaly, no lymphadenopathy HEART: regular rate and rhythm, no murmurs LUNGS: clear to auscultation, no wheezes or crackles, no increased WOB ABD: Soft, non-distended, non-tender, no masses ASSESSMENT/PLAN: 1. Taste sense altered - ICD9: 781.1, ICD10: R43.2 (primary diagnosis) 2. Chills - ICD9: 780.64, ICD10: R68.83 Will assess for COVID - COVID NAAT, UPPER RESPIRATORY, ROUTINE Denies prior taste alteration with migraine or seizure. Quintin Mcguire MD documented in this encounterOhiohealth [facility]07-03-2024 History of Present illness Narrative* Charity Lynn, RT(R) - 02/10/2024 9:40 AM EDT Radiology Service Progress Note PATIENT NAME: Sri Chacon DATE OF SERVICE: February 10, 2024 TIME: 9:55 AM PATIENT IDENTITY VERIFICATION COMPLETED USING TWO (2) IDENTIFIERS: Name and Date of confirmedby patient verbally. FALL SCREENING: Has the patient had 2 falls in the last year or 1 fall with injury or currently using an Ambulatory Assistive Device (Walker, Cane, Wheelchair, Crutches, etc.)? Yes, Patient High Riskfor Falls What interventions were put in place to prevent falls during this visit? Offered Assistance with Transfers/Clothing and Increased Observations by Caregivers PATIENT GENDER DATA: Female. status: : No status: NO. PATIENT RELEVANT IMPLANT DATA REVIEWED: Not Applicable PATIENT PRESENTS WITH AN IMPLANTABLE OR ATTACHED MANAGER FOOD SAFETY: No RADIOLOGY DEPARTMENT: General X-ray: Exam(s) Completed: Pelvis X-Ray: Pelvis with Hip Left PERIPHERAL IV DATA: Not applicable SIGNED BY: RT Adam(R) February 10, 2024 9:55 AM documented in this encounterOhiohealth Dublin [facility]06-28-2024 Telephone encounter Note * Telephone Encounter - Joanne Rivera MA - 02/05/2024 11:39 AM EDT Patient saw Dr. Hernandez yesterday. Records obtained from [facility]. [facility]06-[facility] Miscellaneous Notes* Telephone Encounter - Joanne Rivera MA - 02/05/2024 11:39 AM EDT Patient saw Dr. Hernandez yesterday. Records obtained from [facility]. * Telephone Encounter - James Gonzalez - 02/05/2024 11:22 AM EDT Fax packet received from Dr. Joni Landis to refer patient to Dr. Hernandez. Please contact her for an appt. She lives in [place] so that is closest. documented in this encounterOhiohealth Dublin [facility]06-28-2024 Telephone encounter Note * Telephone Encounter - James Gonzalez - 02/05/2024 11:22 AM EDT Fax packet received from Dr. Joni Landis to refer patient to Dr. Hernandez. Please contact her for an appt. She lives in [place] so that is closest. [facility]06-[facility] History of Present illness Narrative* Seven Hernandez MD - 02/04/2024 8:51 AM EDT Seven Hernandez MD Department of Orthopaedics Orthopaedic Surgery [facility] [address] [facility] [address] Dept: [phone] Dept February 04, 2024 CHIEF COMPLAINT: New and Knee Pain of the Left Knee HPI Patient is here today for left knee pain. Patient fell in September, she has had two surgeries (not with [facility]) and has done physical therapy and injections post-op with no relief. Pain is constant, nothing seems to help it. ASSESSMENT: M25.562, G89.29 Chronic pain of left knee (primary encounter diagnosis) PLAN: She has been getting seen by an outside orthopedic provider who sounds like they have had her go through physical therapy, NSAIDs, multiple cortisone injections and more recently an MRI of the knee. She also mentioned some sort of a lumbar nerve block for the knee which I not quite sure what that would be. They then told her they could not do anymore for the leg. Since she is already had multimodality treatments and an MRI, all of which I do not have [facility] reviewing at this visit date, I would like to get all of that on board so I know exactly what were talking about here. I can then provide her some options after reviewing everything has been done to thispoint in time. FOLLOW UP INSTRUCTIONS: Will have her back in the office after I can review all of her medical history for the knee. Ms. Sri Chacon was advised as to contrast therapies and/or to take analgesics/anti-inflammatoriesas needed and all contraindications were reviewed. OBJECTIVE: Ms. Sri Chacon is a pleasant 48 year old in no apparent distress. Gen:There were no vitals taken for this visit. nl development, non obese, no deformities ENT: Normocephalic, normal hearing, moist mucosa CV: Pulses:DP/PT= 2+ and symmetric, capillary refill < 2 secs, no peripheral edema/varicosities Skin: no rash, bruising or lesions. Good turgor. Psych: cooperative and appropriate, alert and oriented x 3, good mood and affect. Musculoskeletal: Patient arrives in a wheelchair, with crutches and a knee brace on the left knee. There is no obvious effusion. She has some mild soft tissue tenderness surrounding the patella and slightly on the medial joint line and medial distal femoral condyle. IMAGING: IMPRESSION: Normal radiographs of both knees. Telecom Network Manager: FLORENCE Transcribe Date/Time: Feb 04 2024 6:29P Dictated by : STELLA HANSON MD This examination was interpreted and the report reviewed and electronically signed by: STELLA HANSON MD on Feb 04 2024 6:29PM EST Results-Findings * * *Final Report* * * DATE OF EXAM: Feb 04 2024 8:47AM M2X 5202 - XR KNEE 4V AP/PA BOTH+LAT/RACQUEL LT / PROCEDURE REASON: Left knee pain, unspecified chronicity * * * * Physician Interpretation * * * * Examination: Both knees History: chronic knee pain, torn ligaments Left knee pain, unspecified chronicity Technique: XR KNEE 4V AP/PA BOTH+LAT/RACQUEL LT -- Comparison: No prior images are available for comparison at this time. FINDING/ RESULT: Images show normal appearing bones, joint spaces, and alignment bilaterally. No joint effusions Will get her images scanned from an outside source. Supporting Subjective Information Below: Past Medical History: PAST MEDICAL HISTORY Diagnosis Date Calculus of kidney 07/03/2006 Calculus of ureter 03/16/2008 Convulsions (HCC) 02/01/2013 Depression Essential hypertension 01/01/2018 Gallstone 12/25/2017 Hydronephrosis 03/16/2008 Hypothyroidism IBS (irritable bowel syndrome) Lactose intolerance in adult 01/21/2018 Migraine 02/01/2013 Nonrheumatic mitral (valve) prolapse 06/15/2017 Seizure disorder (HCC) last 04/2021 Traumatic brain injury ([facility]) Unspecified asthma(493.90) Unspecified ectopic without intrauterine Ectopic Past Surgical History: PAST SURGICAL HISTORY Procedure Laterality Date CYSTOSCOPY,URETEROSCOPY,LITHOTRIPSY [...] W/WO RMVL TUBE OVARY 01/2005 Hysterectomy, ALLY Family History: FAMILY HISTORY Problem Relation Age of Onset Arthritis Mother Cataract Mother other (pacemaker, defibrillator) Mother other (mitral valve) Father Cataract Maternal Grandmother Social History: Social History Tobacco Use Smoking status: Never Smokeless tobacco: Never Vaping Use Vaping Use: Never used Substance Use Topics Alcohol use: Yes Comment: rare Drug use: No Medications: Current Outpatient Medications Medication Sig zonisamide (ZONEGRAN) 100 mg capsule Take 2 capsules by mouth every evening. LAMICTAL XR 200 mg 24 hr tablet [...] Apply to affected area three times daily. triamcinolone (KENALOG) 0.025 % cream Apply 1 application to affected area two times a day. cyclobenzaprine (FLEXERIL) 10 mg tablet Take 1 tablet by mouth daily at bedtime. LAMICTAL XR 300 mg 24 hr tablet Take 1 tablet by mouth every morning. levothyroxine (SYNTHROID) 75 mcg tablet Take 1 tablet by mouth once daily. Take on empty stomach. For Thyroid No current facility-administered medications for this visit. Allergies: Asa [Salicylates], Aspirin, Benadryl [Diphenhydramine Hcl], Codeine, Fish Containing Products, Morphine, Penicillin G, Phenergan [Promethazine Hcl], and Shellfish Derived ROS: General (negative for fatigue, malaise, weight loss/gain) HEENT (negative for headache, earache, recent vision changes, sinus pain, sore throat) Respiratory (no recent shortness of breath, hemoptysis) CV (negative for chest tightness, palpitations) Musculoskeletal (see HPI) Psych (no depression, anxiety) Seven Hernandez MD documented in this encounterOhiohealth Dublin [facility]06-27-2024 History of Present illness Narrative* Nanci Land RT(R) - 02/04/2024 8:45 AM EDT Radiology Service Progress Note PATIENT NAME: Sri Chacon DATE OF SERVICE: February 04, 2024 TIME: 8:39 AM PATIENT IDENTITY VERIFICATION COMPLETED USING TWO (2) IDENTIFIERS: Name and Date of confirmedby patient verbally. FALL SCREENING: Has the patient had 2 falls in the last year or 1 fall with injury or currently using an Ambulatory Assistive Device (Walker, Cane, Wheelchair, Crutches, etc.)? No PATIENT GENDER DATA: Female. status: : No status: NO. PATIENT RELEVANT IMPLANT DATA REVIEWED: Not Applicable PATIENT PRESENTS WITH AN IMPLANTABLE OR ATTACHED MANAGER FOOD SAFETY: No RADIOLOGY DEPARTMENT: General X-ray: Exam(s) Completed: Lower Extremity X- Ray(s): Knee, AP / Lat / Tunne / Merchant Left PERIPHERAL IV DATA: Not applicable SIGNED BY: RT Baudilio(R) February 04, 2024 8:39 AM documented in this encounterOhiohealth Dublin [facility]05-09-2024 Discharge summary Author Shan Minor [facility] December 17, 2023 3:01pm Note Date/Time December 17, 2023 3:01pm [facility] Physical Therapy [facility] [address] [place] [address]. [address] [place] [address] / REHABILITATION SERVICES DISCHARGE SUMMARY MR#: [id number] Acct: [id number] Name: SRI CHACON MARTHA Rep #: [id number] : 1975 48 From: Shan BUTLER T Referring Dr.: Dr. Joni Landis MD Status: REG RCR Insurance: [facility] SEL[employer] PAY INSURANCE Discharge Summary D/C summary: It has been my pleasure to treat SRI CHACON referred by Dr. Joni Landis MD, with the diagnosis of L meniscal tear/ knee injruy for a total of 6 visit(s). Discharge Date: 12/17/23 Please see the following information for a summary of their discharge status. Subjective Subjective: Pt. is here today for her re assessment. Pt. reports having minimal to no relief with PT. She is still very limited with her ROM and unable to effectively bear wt. She reports that her knee wants to give out on her frequently. Pt. reports 9/10 pain pre treatment today. Pain Left Knee: Pain Intensity (Out of 10): 9 Overall Improvement % Improvement: 0 Objective Objective/Function: ROM: PROM in supine: 0-30-70deg. Pt. very guarded and painful with any mobility. Seated she was able to get to PROM of 0-20-80deg. GAIT: pt. is very hesitant to apply any weight to her L LE. She reports having to have the crutches or her leg gives out on her. MMT: in seated position. Pt. has 3-/5 in available range both of knee ext and flexion. She is able to complete a SLR, but maintains a large extensor lag. She has a constant 9/10 pain at rest and increases to 10/10 with any mobility. She has not tolerated therapy very well. I talked with her about really trying to work on her ROM. Pt. reports understanding, but reports being limited by severe pain. She reports having a nerve block without relief as well. She is to follow back up with physician next week to determine best course of action. Goals Goal 1:: Pt will achieve full knee ROM (0-0-120) Goal Progress: Not Progressing Goal 2:: Pt will demonstrate equal LE WB with STS Goal Progress: Not Progressing Goal 3:: Pt will demonstrate 4/5 global R hip and knee strength Goal Progress: Not Progressing Goal 4:: Pt will be able to amb. for >100ft with no AD Goal Progress: Not Progressing Plan Plan: Pt. to be DC from PT back to physician due to minimal benefit from PT. D/C Information d/c sentence: If there are questions or concerns regarding this patient's physical therapy, please feel free to call me at [phone]. Thank you for the referral of thispatient. Sincerely, Shan Minor, DPT Balance/Gait/Functional tests Balance/Special Test Scores Lower Extremity Functional Score: 11 Improvement % Improvement: 0 <Electronically signed by Shan Minor DPT> 12/17/23 1501 CC: ANN Cabrera; Dr. Joni Landis MD ~ CLS Signed [facility] Work Phone: [phone] Discharge summary Author Vida Bonilla [facility] October 21, 2023 10:51am Note Date/Time October 21, 2023 10: 51am [facility] Physical Therapy [facility] [address] [place] [address]. [address] [place] [address] / REHABILITATION SERVICES DISCHARGE SUMMARY MR#: [id number] Acct: [id number] Name: SRI CHACON Rep #: [id number] : 1975 48 From: Vida Bonilla PT, Cert. T Referring Dr.: Dr. Vince Wall, DO Status: REG [facility] Insurance: [facility] SELF PAY INSURANCE Patient Information Patient Information: SRI CHACON was seen in my office for initial evaluation on 10/06/23. The following Plan of Care was established for this patient: POC Established Initial Frequency: 2-3x /Week Initial Duration: 4-6 Weeks Anticipated Interventions Patient/Client Instruction: Educate patient on: Condition, Plan of Care and Risk Factors For the Purpose of:: To improve self management Therapeutic Exercise to Include: Strength training, Body mechanics, Postural training, Flexibilty training, Gait and locomotor training, Neuromotor development, In an aquatic setting and Dynamic Lumbar Stabilization For the Purpose of:: To decrease pain, To increase ROM, To improve muscle performance and motor function, To increase tolerance to activity/condition/position, To improve ability of physical actions for home/community/work/leisure and To improve gait and locomotor functions Manual Therapy Techniques to Include: Soft tissue mobilization For the Purpose of:: To decrease pain and To improve nutrient delivery to tissue Cryotherapy (ice pack, ice massage): Yes Thermo therapy (hot pack): Yes Ultrasound (thermal/non thermal): Yes For the Purpose of:: To decrease pain, To decrease swelling/inflammation and To improve nutrient delivery to tissue Last Seen Last Seen: This patient was last seen in our office . Pertinent comments regarding their Physical therapy will appear below: Patient was seen for Initial Evaluation and then cancelled all subsequent visitsapparently due to needing to address her knee problem first. At this point I will be discontinuing this patient from physical therapy. I would be happy to see this patient again in the future if found appropriate by the physician. Thank you! Vida Bonilla PT, Cert MDT Balance/Gait/Functional tests Balance/Special Test Scores Oswestry Low Back Score: 25 <Electronically signed by Caroline Tuttle PT. MDT> 10/21/23 1051 CC: ANN Cabrera; Dr. Vince Wall, DO ~ STEF Signed [facility] Work Phone: 1(520) 103-511001-15-2024 History of Present illness Narrative* Mindy Bustamante RT(R) - 08/24/2023 3:40 PM EST Radiology Service Progress Note PATIENT NAME: Sri [...] RT Jeremy(R) August 24, 2023 3:34 PM documented in this encounterOhiohealth Dublin Methodist Hospital09-19-2023 History of Present illness Narrative* Stan Rodgers APRN.SPOOL TENDER - 04/28/2023 9:36 AM EDT Subjective HPI Nontoxic-appearing female presents to urgent care with chief complaint of upper respiratory tract like infection. Duration of symptoms 3 days. Associated symptoms sore throat, nasal congestion, nasaldischarge and nonproductive cough. Patient denies the use of any jjpg-mli-vukkmtj medications or home remedies for symptom management. [...] Nonrheumatic mitral (valve) prolapse 06/15/2017 Seizure disorder ([facility]) last 04/2021 Traumatic brain injury ([facility]) Unspecified asthma(493.90) Unspecified ectopic without intrauterine [...] of care. This note was generated using [employer] software. It may contain errors in wording, punctuation, or spelling. Stan Rodgers APRN.GEMMA documented in this encounterOhiohealth Dublin Methodist Hospital09-01-2023 History of Present illness Narrative* Carla Villegas CT - 04/10/2023 8:00 AM EDT Radiology Service Progress Note PATIENT NAME: Sri Chacon DATE OF SERVICE: April 10, 2023 TIME: 8:05 AM PATIENT IDENTITY VERIFICATION COMPLETED USING TWO (2) IDENTIFIERS: Name and Date of confirmedby patient verbally and Name and Date of [...] 10, 2023 8:05 AM documented in this encounterOhiohealth Dublin Methodist Hospital08-30-2023 Note ORIGINAL NM MYOCARDIAL SPECT STRESS/REST CLINICAL STATEMENT: CP TECHNIQUE: Lexiscan dose:0.4 mg Radiopharmaceutical (stress): Tc-99m Sestamibi Dose:30.9 mCi Radiopharmaceutical (rest): Tc-99m Sestamibi Dose:10.6 mCi SPECT acquisition and processing Reconstruction and reorientation of SPECT images into short axis, vertical and horizontal long axisplanes Quantitative LVEF assessment COMPARISON:2018 REPORT:Overall, image quality [...] Sign Date: 04/08/2023 6:25:39 PM Ordering Provider:Dayan [facility]08-30-2023 Note* Exam Date Time Procedure Performing Provider Status 04/08/23 9:50 AM Echocardiogram, Adult (AOH) Auth (Verified) [facility] 08-22-2023 Miscellaneous Notes* Telephone Encounter - Carolyn Bhtati - 03/31/2023 11:02 AM EDT No Show Documentation Sri Chacon no showed for an appointment on 03/31/2023 with Iveth Hernandez APRN.CNP at 10:40 am. She was scheduled for a new patient to establish. Resources discussed/offered to patient: n/a No show determined to be fault of patient: n/a New patient to establish care. This is the patients first no show in the last 12 months. Patient was rescheduled for n/a. Letter mailed : N/A Is this the Third or Fourth No Show? No Carolyn Bhatti March 31, 2023 11:02 AM documented in this encounterOhiohealth Dublin Methodist Hospital08-04-2023 History of Present illness Narrative* Ronnie Pettit PT - 03/13/2023 8:30 AM EDT Episode Visit Count: 1 Therapist That Will Accept/Oversee The Plan Of Care: Ronnie Pettit PT, DPT Start of Care Date: 03/13/23 [...] of Care: created on 03/13/23 through 05/13/23 [place] in home exercise program. Patient will decrease [...] Planned: 8 Planned Treatment Interventions: Therapeutic exercise (77701), Neuromuscular re- education (33650), Manual therapy (42287), Therapeutic activities (77475), Self- residential management (14498), Gait Training (69578), Patient/Family/Caregiver Education, Body Mechanics Training PLAN FOR [...] Ankle with subsequent injury and surgery. 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 Recreation / Current Exercise: unable to [...] Mechanics TREATMENT: PT Treatment Interventions: Therapeutic Exercise, Self-Skilled Nursing Management Evaluation Therapeutic Exercise: 1: *Ankle Pumps: [...] facilitated with verbal, visual, and tactile cuing. Self-Skilled Nursing Management: 1: Discussion and education on musculature [...] 829 Session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 in limb Chronic pain of left knee Pain in joint, lower leg Acute medial meniscus tear of left knee, initial encounter [facility] Diagnosis Bilateral sciatica Sciatica Acute bilateral low back pain with bilateral sciatica Preop examination- Primary Preoperative examination, unspecified Intractable chronic migraine without aura and with status migrainosus Chronic migraine without aura, with intractable migraine, so stated, with status migrainosus [facility] Diagnosis Preop examination- Primary Preoperative examination, unspecified Intractable chronic migraine without aura and with status migrainosus Chronic migraine without aura, with intractable migraine, so stated, with status migrainosus Tear of medial meniscus of left knee, current, unspecified tear type, initial encounter- Primary S/P arthroscopy of knee Other postprocedural status [facility] Diagnosis Right hand pain Pain in limb Preop examination- Primary Preoperative examination, unspecified Intractable chronic migraine without aura and with status migrainosus Chronic migraine without aura, with intractable migraine, so stated, with status migrainosus [facility]* Diagnosis Preop examination- Primary Preoperative examination, unspecified Intractable chronic migraine without aura and with status migrainosus Chronic migraine without aura, with intractable migraine, so stated, with status migrainosus Chronic pain of left knee- Primary Pain in joint, lower leg Acute medial meniscus tear of left knee, initial encounter [facility]* Diagnosis Preop examination- Primary Preoperative examination, unspecified Intractable chronic migraine without aura and with status migrainosus Chronic migraine without aura, with intractable migraine, so stated, with status migrainosus Fibrosis of left knee joint- Primary [facility]* Diagnosis Preop examination- Primary Preoperative examination, unspecified Intractable chronic migraine without aura and with status migrainosus Chronic migraine without aura, with intractable migraine, so stated, with status migrainosus Seizure (HCC) Other convulsions [facility]* Diagnosis Preop examination- Primary Preoperative examination, unspecified Intractable chronic migraine without aura and with status migrainosus Chronic migraine without aura, with intractable migraine, so stated, with status migrainosus Seizure (HCC)- Primary Other convulsions [facility]* Diagnosis Preop examination- Primary Preoperative examination, unspecified Intractable chronic migraine without aura and with status migrainosus Chronic migraine without aura, with intractable migraine, so stated, with status migrainosus Chronic pain of left knee- Primary Pain in joint, lower leg Acute medial meniscus tear of left knee, initial encounter [facility]* Diagnosis Preop examination- Primary Preoperative examination, unspecified Intractable chronic migraine without aura and with status migrainosus Chronic migraine without aura, with intractable migraine, so stated, with status migrainosus Chronic pain of left knee- Primary Pain in joint, lower leg Acute medial meniscus tear of left knee, initial encounter [facility]* Diagnosis Preop examination- Primary Preoperative examination, unspecified Intractable chronic migraine without aura and with status migrainosus Chronic migraine without aura, with intractable migraine, so stated, with status migrainosus Chronic pain of left knee- Primary Pain in joint, lower leg Acute medial meniscus tear of left knee, initial encounter [facility] Diagnosis Preop examination- Primary Preoperative examination, unspecified Intractable chronic migraine without aura and with status migrainosus Chronic migraine without aura, with intractable migraine, so stated, with status migrainosus Fibrosis of left knee joint- Primary S/P arthroscopy of knee Other postprocedural status [facility] Diagnosis Preop examination- Primary Preoperative examination, unspecified Intractable chronic migraine without aura and with status migrainosus Chronic migraine without aura, with intractable migraine, so stated, with status migrainosus Fibrosis of left knee joint- Primary Fibrosis of left knee joint [facility] Diagnosis Preop examination- Primary Preoperative examination, unspecified Intractable chronic migraine without aura and with status migrainosus Chronic migraine without aura, with intractable migraine, so stated, with status migrainosus Pre-op evaluation- Primary Preoperative examination, unspecified Hypothyroidism, unspecified type Mood disorder (HCC) Unspecified episodic mood disorder Fibrosis of left knee joint * Assessment & Plan Note - Marcy Salinas APRN.CNP - 06/29/2024 11:20 AM EST Associated Problem(s): Mood disorder (HCC) Assessment: Started on Prozac by psychiatry while admitted 06/19 Following up with psych * Assessment & Plan Note - Marcy Salinas APRN.CNP - 06/29/2024 11:20 AM EST Associated Problem(s): Hypothyroidism Assessment: TSH thyroid hormone was elevated ( 7.390), with normal Free T3, T4. Started on Levothyroxine 06/19 while admitted for EEG * Assessment & Plan Note - Marcy Salinas APRN.CNP - 06/29/2024 11:19 AM EST Associated Problem(s): Other convulsions Assessment: seizures since 2007. Seizures described as aura of feeling lightheaded, weird, tunnelvision, progressing to staring unresponsive, then GTC. Seizures lasting 2-3 minutes and occurring every 3-4 mos. Last seizure was a few months ago when she reported 4 seizures in one day. History suggestive of post-traumatic focal epilepsy, with secondarily generalized motor seizures, however, prior EEG and MRI have been normal. Had EEG 06/19- Patient noted to have four typical events without EEG change. Medications adjusted. On Lamotigine States has not had any convulsions or seizure like activity since EEG done 06/19. States episode prior to that 2 months prior. 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 Pre-op evaluation- Primary Preoperative examination, unspecified Hypothyroidism, unspecified type Mood disorder (HCC) Unspecified episodic mood disorder [facility] [place] [facility]* Diagnosis Preop examination- Primary Preoperative examination, unspecified Intractable chronic migraine without aura and with status migrainosus Chronic migraine without aura, with intractable migraine, so stated, with status migrainosus Pre-op evaluation- Primary Preoperative examination, unspecified Hypothyroidism, unspecified type Mood disorder (HCC) Unspecified episodic mood disorder Postoperative pain Other acute postoperative pain [facility] [place] [facility]* Diagnosis Preop examination- Primary Preoperative examination, unspecified Intractable chronic migraine without aura and with status migrainosus Chronic migraine without aura, with intractable migraine, so stated, with status migrainosus Pre-op evaluation- Primary Preoperative examination, unspecified Hypothyroidism, unspecified type Mood disorder (HCC) Unspecified episodic mood disorder Psychogenic nonepileptic 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, with psychotic features (HCC) documented [facility] [place] [facility]* Diagnosis Preop examination- Primary Preoperative examination, unspecified Intractable chronic migraine without aura and with status migrainosus Chronic migraine without aura, with intractable migraine, so stated, with status migrainosus Pre-op evaluation- Primary Preoperative examination, unspecified Hypothyroidism, unspecified type Mood disorder (HCC) Unspecified episodic mood disorder Chronic pain of left knee- Primary Pain in joint, lower leg Acute medial meniscus tear of left knee, initial encounter [facility] [place] [facility]* Diagnosis Preop examination- Primary Preoperative examination, unspecified Intractable chronic migraine without aura and with status migrainosus Chronic migraine without aura, with intractable migraine, so stated, with status migrainosus Pre-op evaluation- Primary Preoperative examination, unspecified Hypothyroidism, unspecified type Mood disorder (HCC) Unspecified episodic mood disorder Tear of medial meniscus of left knee, current, unspecified tear type, initial encounter [facility] Diagnosis Preop examination- Primary Preoperative examination, unspecified Intractable chronic migraine without aura and with status migrainosus Chronic migraine without aura, with intractable migraine, so stated, with status migrainosus Pre-op evaluation- Primary Preoperative examination, unspecified Hypothyroidism, unspecified type Mood disorder (HCC) Unspecified episodic mood disorder Pain of left calf- Primary Pain in limb S/P arthroscopy of knee Other postprocedural status documented [facility] [place] [facility]* Diagnosis Preop examination- Primary Preoperative examination, unspecified Intractable chronic migraine without aura and with status migrainosus Chronic migraine without aura, with intractable migraine, so stated, with status migrainosus Pre-op evaluation- Primary Preoperative examination, unspecified Hypothyroidism, unspecified type Mood disorder (HCC) Unspecified episodic mood disorder Tear of medial meniscus of left knee, current, unspecified tear type, initial encounter- Primary Chronic pain of left knee Pain in joint, lower leg Acute medial meniscus tear of left knee, initial encounter Sprain of right ankle, unspecified ligament, initial encounter [facility] Diagnosis Preop examination- Primary Preoperative examination, unspecified Intractable chronic migraine without aura and with status migrainosus Chronic migraine without aura, with intractable migraine, so stated, with status migrainosus Pre-op evaluation- Primary Preoperative examination, unspecified Hypothyroidism, unspecified type Mood disorder (HCC) Unspecified episodic mood disorder Overweight (BMI 25.0-29.9)- Primary Overweight Subclinical hypothyroidism Other specified acquired hypothyroidism Ton thyroiditis [facility] [place] [facility]* Diagnosis Preop examination- Primary Preoperative examination, unspecified Intractable chronic migraine without aura and with status migrainosus Chronic migraine without aura, with intractable migraine, so stated, with status migrainosus Pre-op evaluation- Primary Preoperative examination, unspecified Hypothyroidism, unspecified type Mood disorder (HCC) Unspecified episodic mood disorder Chronic pain of left knee- Primary Pain in joint, lower leg Acute medial meniscus tear of left knee, initial encounter documented in this encounter [facility] note* Diagnosis Preop examination- Primary Preoperative examination, unspecified Intractable chronic migraine without aura and with status migrainosus Chronic migraine without aura, with intractable migraine, so stated, with status migrainosus Pre-op evaluation- Primary Preoperative examination, unspecified Hypothyroidism, unspecified type Mood disorder (HCC) Unspecified episodic mood disorder Chronic pain of left knee- Primary Pain in joint, lower leg Acute medial meniscus tear of left knee, initial encounter documented in this encounter [facility] note* Diagnosis Preop examination- Primary Preoperative examination, unspecified Intractable chronic migraine without aura and with status migrainosus Chronic migraine without aura, with intractable migraine, so stated, with status migrainosus Pre-op evaluation- Primary Preoperative examination, unspecified Hypothyroidism, unspecified type Mood disorder (HCC) Unspecified episodic mood disorder Chronic pain of left knee- Primary Pain in joint, lower leg Acute medial meniscus tear of left knee, initial encounter documented in this encounter [facility] note* Diagnosis Preop examination- Primary Preoperative examination, unspecified Intractable chronic migraine without aura and with status migrainosus Chronic migraine without aura, with intractable migraine, so stated, with status migrainosus Pre-op evaluation- Primary Preoperative examination, unspecified Hypothyroidism, unspecified type Mood disorder (HCC) Unspecified episodic mood disorder Overweight (BMI 25.0-29.9) Overweight documented in this encounter [facility] note* Diagnosis Preop examination- Primary Preoperative examination, unspecified Intractable chronic migraine without aura and with status migrainosus Chronic migraine without aura, with intractable migraine, so stated, with status migrainosus Pre-op evaluation- Primary Preoperative examination, unspecified Hypothyroidism, unspecified type Mood disorder (HCC) Unspecified episodic mood disorder Intractable chronic migraine without aura and without status migrainosus- Primary Chronic migraine without aura, with intractable migraine, so stated, without mention of status migrainosus documented in this encounter [facility] note* Diagnosis Preop examination- Primary Preoperative examination, unspecified Intractable chronic migraine without aura and with status migrainosus Chronic migraine without aura, with intractable migraine, so stated, with status migrainosus Pre-op evaluation- Primary Preoperative examination, unspecified Hypothyroidism, unspecified type Mood disorder (HCC) Unspecified episodic mood disorder Chronic pain of left knee- Primary Pain in joint, lower leg documented in this encounter [facility] note* Diagnosis Preop examination- Primary Preoperative examination, unspecified Intractable chronic migraine without aura and with status migrainosus Chronic migraine without aura, with intractable migraine, so stated, with status migrainosus Pre-op evaluation- Primary Preoperative examination, unspecified Hypothyroidism, unspecified type Mood disorder (HCC) Unspecified episodic mood disorder Intractable chronic migraine without aura and without status migrainosus Chronic migraine without aura, with intractable migraine, so stated, without mention of status migrainosus documented in this encounter [facility] note* Diagnosis Preop examination- Primary Preoperative examination, unspecified Intractable chronic migraine without aura and with status migrainosus Chronic migraine without aura, with intractable migraine, so stated, with status migrainosus Pre-op evaluation- Primary Preoperative examination, unspecified Hypothyroidism, unspecified type Mood disorder (HCC) Unspecified episodic mood disorder Chronic pain of left knee- Primary Pain in joint, lower leg Acute medial meniscus tear of left knee, initial encounter documented in this encounter [facility] note* Diagnosis Preop examination- Primary Preoperative examination, unspecified Intractable chronic migraine without aura and with status migrainosus Chronic migraine without aura, with intractable migraine, so stated, with status migrainosus Pre-op evaluation- Primary Preoperative examination, unspecified Hypothyroidism, unspecified type Mood disorder (HCC) Unspecified episodic mood disorder Intractable chronic migraine without aura and without status migrainosus Chronic migraine without aura, with intractable migraine, so stated, without mention of status migrainosus documented in this encounter [facility] note* Diagnosis Preop examination- Primary Preoperative examination, unspecified Intractable chronic migraine without aura and with status migrainosus Chronic migraine without aura, with intractable migraine, so stated, with status migrainosus Pre-op evaluation- Primary Preoperative examination, unspecified Hypothyroidism, unspecified type Mood disorder (HCC) Unspecified episodic mood disorder Chronic pain of left knee- Primary Pain in joint, lower leg documented in this encounter [facility] note* Diagnosis Preop examination- Primary Preoperative examination, unspecified Intractable chronic migraine without aura and with status migrainosus Chronic migraine without aura, with intractable migraine, so stated, with status migrainosus Pre-op evaluation- Primary Preoperative examination, unspecified Hypothyroidism, unspecified type Mood disorder (HCC) Unspecified episodic mood disorder Arthrofibrosis of knee joint, left- Primary Chronic pain of left knee Pain in joint, lower leg documented in this encounter [facility] note* Diagnosis Preop examination- Primary Preoperative examination, unspecified Intractable chronic migraine without aura and with status migrainosus Chronic migraine without aura, with intractable migraine, so stated, with status migrainosus Pre-op evaluation- Primary Preoperative examination, unspecified Hypothyroidism, unspecified type Mood disorder (HCC) Unspecified episodic mood disorder Intractable chronic migraine without aura and with status migrainosus- Primary Chronic migraine without aura, with intractable migraine, so stated, with status migrainosus [facility] [place] [facility]* Diagnosis Preop examination- Primary Preoperative examination, unspecified Intractable chronic migraine without aura and with status migrainosus Chronic migraine without aura, with intractable migraine, so stated, with status migrainosus Pre-op evaluation- Primary Preoperative examination, unspecified Hypothyroidism, unspecified type Mood disorder (HCC) Unspecified episodic mood disorder Chronic pain of left knee- Primary Pain in joint, lower leg Arthrofibrosis of knee joint, left Chronic pain of left knee Pain in joint, lower leg Arthrofibrosis of knee joint, left [facility] [place] [facility]* Diagnosis Preop examination- Primary Preoperative examination, unspecified Intractable chronic migraine without aura and with status migrainosus Chronic migraine without aura, with intractable migraine, so stated, with status migrainosus Pre-op evaluation- Primary Preoperative examination, unspecified Hypothyroidism, unspecified type Mood disorder (HCC) Unspecified episodic mood disorder Preop examination- Primary Preoperative examination, unspecified Seizure-like activity (HCC) Other convulsions Psychogenic nonepileptic seizure Hypothyroidism, unspecified type Mood disorder (HCC) Unspecified episodic mood disorder Intractable chronic migraine without aura and with status migrainosus Chronic migraine without aura, with intractable migraine, so stated, with status migrainosus Chronic pain of left knee Pain in joint, lower leg Arthrofibrosis of knee joint, left Intractable chronic migraine without aura and with status migrainosus- Primary Chronic migraine without aura, with intractable migraine, so stated, with status migrainosus [facility]- Primary Preoperative examination, unspecified Intractable chronic migraine without aura and with status migrainosus Chronic migraine without aura, with intractable migraine, so stated, with status migrainosus Pre-op evaluation- Primary Preoperative examination, unspecified Hypothyroidism, unspecified type Mood disorder (HCC) Unspecified episodic mood disorder Chronic pain of left knee- Primary Pain in joint, lower leg Arthrofibrosis of knee joint, left Chronic pain of left knee Pain in joint, lower leg Arthrofibrosis of knee joint, left Intractable chronic migraine without aura and with status migrainosus- Primary Chronic migraine without aura, with intractable migraine, so stated, with status migrainosus [facility] [place] [facility] Diagnosis Preop examination- Primary Preoperative examination, unspecified Intractable chronic migraine without aura and with status migrainosus Chronic migraine without aura, with intractable migraine, so stated, with status migrainosus Pre-op evaluation- Primary Preoperative examination, unspecified Hypothyroidism, unspecified type Mood disorder (HCC) Unspecified episodic mood disorder Postoperative pain- Primary Other acute postoperative pain Intractable chronic migraine without aura and with status migrainosus- Primary Chronic migraine without aura, with intractable migraine, so stated, with status migrainosus Intractable chronic migraine without aura and with status migrainosus- Primary Chronic migraine without aura, with intractable migraine, so stated, with status [facility]- Primary Preoperative examination, unspecified Intractable chronic migraine without aura and with status migrainosus Chronic migraine without aura, with intractable migraine, so stated, with status migrainosus Pre-op evaluation- Primary Preoperative examination, unspecified Hypothyroidism, unspecified type Mood disorder (HCC) Unspecified episodic mood disorder Chronic pain of left knee- Primary Pain in joint, lower leg Arthrofibrosis of knee joint, left Intractable chronic migraine without aura and with status migrainosus- Primary Chronic migraine without aura, with intractable migraine, so stated, with status migrainosus Intractable chronic migraine without aura and with status migrainosus- Primary Chronic migraine without aura, with intractable migraine, so stated, with status migrainosus [facility]op [facility]- Primary Preoperative examination, unspecified Intractable chronic migraine without aura and with status migrainosus Chronic migraine without aura, with intractable migraine, so stated, with status migrainosus Pre-op evaluation- Primary Preoperative examination, unspecified Hypothyroidism, unspecified type Mood disorder (HCC) Unspecified episodic mood disorder Chronic pain of left knee- Primary Pain in joint, lower leg Arthrofibrosis of knee joint, left Intractable chronic migraine without aura and with status migrainosus- Primary Chronic migraine without aura, with intractable migraine, so stated, with status migrainosus Intractable chronic migraine without aura and with status migrainosus- Primary Chronic migraine without aura, with intractable migraine, so stated, with status migrainosus Intractable chronic migraine without aura and with status migrainosus- Primary Chronic migraine without aura, with intractable migraine, so stated, with status migrainosus [facility] [place] [facility] Diagnosis Preop examination- Primary Preoperative examination, unspecified Intractable chronic migraine without aura and with status migrainosus Chronic migraine without aura, with intractable migraine, so stated, with status migrainosus Pre-op evaluation- Primary Preoperative examination, unspecified Hypothyroidism, unspecified type Mood disorder (HCC) Unspecified episodic mood disorder Chronic pain of left knee- Primary Pain in joint, lower leg Arthrofibrosis of knee joint, left Postoperative pain Other acute postoperative pain Intractable chronic migraine without aura and with status migrainosus- Primary Chronic migraine without aura, with intractable migraine, so stated, with status migrainosus Intractable chronic migraine without aura and with status migrainosus- Primary Chronic migraine without aura, with intractable migraine, so stated, with status migrainosus Intractable chronic migraine without aura and with status migrainosus- Primary Chronic migraine without aura, with intractable migraine, so stated, with status migrainosus [facility] [place] [facility]* Diagnosis Preop examination- Primary Preoperative examination, unspecified Intractable chronic migraine without aura and with status migrainosus Chronic migraine without aura, with intractable migraine, so stated, with status migrainosus Seizure (HCC) Other convulsions Pre-op evaluation- Primary Preoperative examination, unspecified Hypothyroidism, unspecified type Mood disorder (HCC) Unspecified episodic mood disorder Intractable chronic migraine without aura and with status migrainosus- Primary Chronic migraine without aura, with intractable migraine, so stated, with status migrainosus Intractable chronic migraine without aura and with status migrainosus- Primary Chronic migraine without aura, with intractable migraine, so stated, with status migrainosus Intractable chronic migraine without aura and with status migrainosus- Primary Chronic migraine without aura, with intractable migraine, so stated, with status migrainosus [facility] [place] [facility]* Diagnosis Preop examination- Primary Preoperative examination, unspecified Intractable chronic migraine without aura and with status migrainosus Chronic migraine without aura, with intractable migraine, so stated, with status migrainosus Pre-op evaluation- Primary Preoperative examination, unspecified Hypothyroidism, unspecified type Mood disorder (HCC) Unspecified episodic mood disorder Chronic pain of left knee- Primary Pain in joint, lower leg Arthrofibrosis of knee joint, left Intractable chronic migraine without aura and with status migrainosus- Primary Chronic migraine without aura, with intractable migraine, so stated, with status migrainosus Intractable chronic migraine without aura and with status migrainosus- Primary Chronic migraine without aura, with intractable migraine, so stated, with status migrainosus Intractable chronic migraine without aura and with status migrainosus- Primary Chronic migraine without aura, with intractable migraine, so stated, with status migrainosus [facility] [place] [facility]* Diagnosis Preop examination- Primary Preoperative examination, unspecified Intractable chronic migraine without aura and with status migrainosus Chronic migraine without aura, with intractable migraine, so stated, with status migrainosus Pre-op evaluation- Primary Preoperative examination, unspecified Hypothyroidism, unspecified type Mood disorder (HCC) Unspecified episodic mood disorder Chronic pain of left knee- Primary Pain in joint, lower leg Arthrofibrosis of knee joint, left Intractable chronic migraine without aura and with status migrainosus- Primary Chronic migraine without aura, with intractable migraine, so stated, with status migrainosus Intractable chronic migraine without aura and with status migrainosus- Primary Chronic migraine without aura, with intractable migraine, so stated, with status migrainosus Intractable chronic migraine without aura and with status migrainosus- Primary Chronic migraine without aura, with intractable migraine, so stated, with status migrainosus [facility] Preop examination- Primary Preoperative examination, unspecified Intractable chronic migraine without aura and with status migrainosus Chronic migraine without aura, with intractable migraine, so stated, with status migrainosus Pre-op evaluation- Primary Preoperative examination, unspecified Hypothyroidism, unspecified type Mood disorder (HCC) Unspecified episodic mood disorder Chronic pain of left knee- Primary Pain in joint, lower leg Intractable chronic migraine without aura and with status migrainosus- Primary Chronic migraine without aura, with intractable migraine, so stated, with status migrainosus Intractable chronic migraine without aura and with status migrainosus- Primary Chronic migraine without aura, with intractable migraine, so stated, with status migrainosus Intractable chronic migraine without aura and with status migrainosus- Primary Chronic migraine without aura, with intractable migraine, so stated, with status migrainosus [facility] Diagnosis Preop examination- Primary Preoperative examination, unspecified Intractable chronic migraine without aura and with status migrainosus Chronic migraine without aura, with intractable migraine, so stated, with status migrainosus Pre-op evaluation- Primary Preoperative examination, unspecified Hypothyroidism, unspecified type Mood disorder (HCC) Unspecified episodic mood disorder Intractable chronic migraine without aura and with status migrainosus- Primary Chronic migraine without aura, with intractable migraine, so stated, with status migrainosus Intractable chronic migraine without aura and with status migrainosus- Primary Chronic migraine without aura, with intractable migraine, so stated, with status migrainosus Intractable chronic migraine without aura and with status migrainosus- Primary Chronic migraine without aura, with intractable migraine, so stated, with status migrainosus [facility] Preop examination- Primary Preoperative examination, unspecified Intractable chronic migraine without aura and with status migrainosus Chronic migraine without aura, with intractable migraine, so stated, with status migrainosus Pre-op evaluation- Primary Preoperative examination, unspecified Hypothyroidism, unspecified type Mood disorder Unspecified episodic mood disorder Left lower quadrant abdominal pain- Primary Screening for colon cancer Special screening for malignant neoplasms, colon BRBPR (bright red blood per rectum) Hemorrhage of rectum and anus Coughing up blood Hemoptysis, unspecified Dysphagia, unspecified type Intractable chronic migraine without aura and with status migrainosus- Primary Chronic migraine without aura, with intractable migraine, so stated, with status migrainosus Intractable chronic migraine without aura and with status migrainosus- Primary Chronic migraine without aura, with intractable migraine, so stated, with status migrainosus [facility] [place] [facility]* Diagnosis Preop examination- Primary Preoperative examination, unspecified Intractable chronic migraine without aura and with status migrainosus Chronic migraine without aura, with intractable migraine, so stated, with status migrainosus Pre-op evaluation- Primary Preoperative examination, unspecified Hypothyroidism, unspecified type Mood disorder Unspecified episodic mood disorder Well adult exam- Primary Routine general medical examination at a health care facility Elevated alkaline phosphatase level Other nonspecific abnormal serum enzyme levels Chronic pain of left knee Pain in joint, lower leg Migraine without aura and without status migrainosus, not intractable Migraine without aura, without mention of intractable migraine without mention of status migrainosus Seizure-like activity (HCC) Other convulsions Essential hypertension Unspecified essential hypertension Mild intermittent asthma without complication (HCC) Unspecified asthma Hypothyroidism, unspecified type Depression, unspecified depression type Mood disorder Unspecified episodic mood disorder Generalized abdominal pain Abdominal pain, generalized Encounter for screening mammogram for breast cancer Abnormal mammogram of right breast Special screening examination for viral disease Special screening examination for unspecified viral disease Screening for lipid disorders Screening for colon cancer Special screening for malignant neoplasms, colon Vitamin D deficiency Unspecified vitamin D deficiency Intractable chronic migraine without aura and with status migrainosus- Primary Chronic migraine without aura, with intractable migraine, so stated, with status migrainosus Intractable chronic migraine without aura and with status migrainosus- Primary Chronic migraine without aura, with intractable migraine, so stated, with status migrainosus [facility] [place] [facility]* Diagnosis Preop examination- Primary Preoperative examination, unspecified Intractable chronic migraine without aura and with status migrainosus Chronic migraine without aura, with intractable migraine, so stated, with status migrainosus Pre-op evaluation- Primary Preoperative examination, unspecified Hypothyroidism, unspecified type Mood disorder Unspecified episodic mood disorder Hypothyroidism, unspecified type- Primary Vitamin D deficiency Unspecified vitamin D deficiency Intractable chronic migraine without aura and with status migrainosus- Primary Chronic migraine without aura, with intractable migraine, so stated, with status migrainosus Intractable chronic migraine without aura and with status migrainosus- Primary Chronic migraine without aura, with intractable migraine, so stated, with status migrainosus [facility] Diagnosis Preop examination- Primary Preoperative examination, unspecified Intractable chronic migraine without aura and with status migrainosus Chronic migraine without aura, with intractable migraine, so stated, with status migrainosus Pre-op evaluation- Primary Preoperative examination, unspecified Hypothyroidism, unspecified type Mood disorder Unspecified episodic mood disorder Intractable chronic migraine without aura and with status migrainosus- Primary Chronic migraine without aura, with intractable migraine, so stated, with status migrainosus Intractable chronic migraine without aura and with status migrainosus- Primary Chronic migraine without aura, with intractable migraine, so stated, with status migrainosus Intractable chronic migraine without aura and with status migrainosus- Primary Chronic migraine without aura, with intractable migraine, so stated, with status migrainosus [facility] [place] [facility]* Diagnosis Preop examination- Primary Preoperative examination, unspecified Intractable chronic migraine without aura and with status migrainosus Chronic migraine without aura, with intractable migraine, so stated, with status migrainosus Pre-op evaluation- Primary Preoperative examination, unspecified Hypothyroidism, unspecified type Mood disorder Unspecified episodic mood disorder Intractable chronic migraine without aura and with status migrainosus- Primary Chronic migraine without aura, with intractable migraine, so stated, with status migrainosus Intractable chronic migraine without aura and with status migrainosus- Primary Chronic migraine without aura, with intractable migraine, so stated, with status [facility]rainosus [facility]- Primary Preoperative examination, unspecified Intractable chronic migraine without aura and with status migrainosus Chronic migraine without aura, with intractable migraine, so stated, with status migrainosus Pre-op evaluation- Primary Preoperative examination, unspecified Hypothyroidism, unspecified type Mood disorder Unspecified episodic mood disorder Left knee pain, unspecified chronicity [facility] [place] [facility]* Diagnosis Preop examination- Primary Preoperative examination, unspecified Intractable chronic migraine without aura and with status migrainosus Chronic migraine without aura, with intractable migraine, so stated, with status migrainosus Pre-op evaluation- Primary Preoperative examination, unspecified Hypothyroidism, unspecified type Mood disorder Unspecified episodic mood disorder Chronic pain of left knee- Primary Pain in joint, lower leg Arthrofibrosis of knee joint, left [facility] [place] [facility]* Diagnosis Preop examination- Primary Preoperative examination, unspecified Intractable chronic migraine without aura and with status migrainosus Chronic migraine without aura, with intractable migraine, so stated, with status migrainosus Pre-op evaluation- Primary Preoperative examination, unspecified Hypothyroidism, unspecified type Mood disorder Unspecified episodic mood disorder Encounter for screening mammogram for breast cancer Abnormal mammogram of right breast documented in this encounter [facility] note* Diagnosis Preop examination- Primary Preoperative examination, unspecified Intractable chronic migraine without aura and with status migrainosus Chronic migraine without aura, with intractable migraine, so stated, with status migrainosus Pre-op evaluation- Primary Preoperative examination, unspecified Hypothyroidism, unspecified type Mood disorder Unspecified episodic mood disorder Encounter for screening mammogram for breast cancer Abnormal mammogram of right breast documented in this encounter [facility] note* Diagnosis Preop examination- Primary Preoperative examination, unspecified Intractable chronic migraine without aura and with status migrainosus Chronic migraine without aura, with intractable migraine, so stated, with status migrainosus Pre-op evaluation- Primary Preoperative examination, unspecified Hypothyroidism, unspecified type Mood disorder Unspecified episodic mood disorder Left lower quadrant abdominal pain BRBPR (bright red blood per rectum) Hemorrhage of rectum and anus Coughing up blood Hemoptysis, unspecified Dysphagia, unspecified type documented in this encounter [facility] note* Diagnosis Preop examination- Primary Preoperative examination, unspecified Intractable chronic migraine without aura and with status migrainosus Chronic migraine without aura, with intractable migraine, so stated, with status migrainosus Pre-op evaluation- Primary Preoperative examination, unspecified Hypothyroidism, unspecified type Mood disorder Unspecified episodic mood disorder Chronic pain of left knee- Primary Pain in joint, lower leg Medication management Encounter for long-term (current) use of other medications Major depressive disorder, single episode, severe without psychotic features (HCC) Major depressive disorder, single episode, severe, without mention of psychotic behavior Generalized anxiety disorder Suicidal ideation Personal history of traumatic brain injury Chronic pain syndrome documented in this encounter [facility] note* Diagnosis Preop examination- Primary Preoperative examination, unspecified Intractable chronic migraine without aura and with status migrainosus Chronic migraine without aura, with intractable migraine, so stated, with status migrainosus Pre-op evaluation- Primary Preoperative examination, unspecified Hypothyroidism, unspecified type Mood disorder Unspecified episodic mood disorder Left knee pain, unspecified chronicity- Primary documented in this encounter [facility] note* Diagnosis Preop examination- Primary Preoperative examination, unspecified Intractable chronic migraine without aura and with status migrainosus Chronic migraine without aura, with intractable migraine, so stated, with status migrainosus Pre-op evaluation- Primary Preoperative examination, unspecified Hypothyroidism, unspecified type Mood disorder Unspecified episodic mood disorder Encounter for gynecological examination (general) (routine) without abnormal findings- Primary Encounter for screening mammogram for breast cancer documented in this encounter [facility] note* Diagnosis Preop examination- Primary Preoperative examination, unspecified Intractable chronic migraine without aura and with status migrainosus Chronic migraine without aura, with intractable migraine, so stated, with status migrainosus Pre-op evaluation- Primary Preoperative examination, unspecified Hypothyroidism, unspecified type Mood disorder Unspecified episodic mood disorder Encounter for gynecological examination (general) (routine) without abnormal findings Encounter for screening mammogram for breast cancer documented in this encounter [facility] note* Diagnosis Preop examination- Primary Preoperative examination, unspecified Intractable chronic migraine without aura and with status migrainosus Chronic migraine without aura, with intractable migraine, so stated, with status migrainosus Pre-op evaluation- Primary Preoperative examination, unspecified Hypothyroidism, unspecified type Mood disorder Unspecified episodic mood disorder Chronic pain syndrome- Primary Chronic pain of left knee Pain in joint, lower leg Medication management Encounter for long-term (current) use of other medications Major depressive disorder, single episode, severe without psychotic features ([facility]) Major depressive disorder, single episode, severe, without mention of psychotic behavior Generalized anxiety disorder documented in this encounter [facility] note* Diagnosis Preop examination- Primary Preoperative examination, unspecified Intractable chronic migraine without aura and with status migrainosus Chronic migraine without aura, with intractable migraine, so stated, with status migrainosus Pre-op evaluation- Primary Preoperative examination, unspecified Hypothyroidism, unspecified type Mood disorder Unspecified episodic mood disorder Chronic migraine with aura without status migrainosus, not intractable- Primary Complex regional pain syndrome type 1 of left lower extremity Chronic migraine without aura without status migrainosus, not intractable Chronic migraine without aura, without mention of intractable migraine without mention of status migrainosus Swelling of left lower extremity Swelling of limb History of traumatic brain injury Personal history of traumatic brain injury [facility] Diagnosis Preop examination- Primary Preoperative examination, unspecified Intractable chronic migraine without aura and with status migrainosus Chronic migraine without aura, with intractable migraine, so stated, with status migrainosus Pre-op evaluation- Primary Preoperative examination, unspecified Hypothyroidism, unspecified type Mood disorder Unspecified episodic mood disorder Chronic migraine with aura without status migrainosus, not intractable [facility] Diagnosis Preop examination- Primary Preoperative examination, unspecified Intractable chronic migraine without aura and with status migrainosus Chronic migraine without aura, with intractable migraine, so stated, with status migrainosus Pre-op evaluation- Primary Preoperative examination, unspecified Hypothyroidism, unspecified type Mood disorder Unspecified episodic mood disorder Flank pain- Primary Abdominal pain, unspecified site Rectal bleeding Hemorrhage of rectum and anus [facility] Narrative No data available for this section [facility] Hospital Discharge instructions Additional Instructions Your lab work, chest x-ray and EKG were unremarkable today. Follow-up with your primary care physician if not improving.[facility] Work Phone: Hospital Discharge instructions No data available for this section [facility] Hospital Discharge instructions Additional Instructions Follow-up for your MRI on Thursday as scheduled.[facility] Work Phone: Progress note No data available for this section [facility] Reason for referral (narrative)* Diagnostic Procedure Only (Routine) - Closed Specialty Diagnoses / Procedures Referred By Contac t Referred To Contact XR IMAGING Diagnoses Chronic neck pain Procedures XR CERV OTHER 6V AP/LAT/FLX/EXT/OBL RADEX SPINE CERVICAL 6 OR MORE VIEWS Jimena Ashley, CASINO GAMING INSPECTOR.SPOOL TENDER [address] [place] [address] Xr Imaging Referral ID Status Reason Start Date Expiration Date V isits Requested Visits Authorized [id number] Closed Auto-Generate d Referral 02/27/2022 03/29/2023 1 1 [facility] for referral (narrative)* Diagnostic Procedure Only (Routine) - Closed Specialty Diagnoses / Procedures Referred By Contac t Referred To Contact XR IMAGING Diagnoses Chronic neck pain Procedures XR CERV OTHER 6V AP/LAT/FLX/EXT/OBL RADEX SPINE CERVICAL 6 OR MORE VIEWS Jimena Ashley, CASINO GAMING INSPECTOR.SPOOL TENDER [address] [place] [address] Xr Imaging Referral ID Status Reason Start Date Expiration Date V isits Requested Visits Authorized [id number] Closed Auto-Generate d Referral 02/27/2022 03/29/2023 1 1 [facility] for referral (narrative)* Diagnostic Procedure Only (Urgent) - Closed Specialty Diagnoses / Procedures Referred By Contac t Referred To Contact XR IMAGING Diagnoses Right hand pain Procedures XR HAND GENERAL 3V PA/LAT/OBL RIGHT RADEX HAND MINIMUM 3 VIEWS Steph Shaw CASINO GAMING INSPECTOR.SPOOL TENDER [address] [place] [address] Xr Imaging Referral ID Status Reason Start Date Expiration Date V isits Requested Visits Authorized [id number] Closed Auto-Generate d Referral 05/06/2022 06/05/2023 1 1 [facility] for referral (narrative)* Outpatient Procedure (Routine) - Authorized Specialty Diagnoses / Procedures Referred By Contac t Referred To Contact [facility] Diagnoses Seizure (HCC) Procedures EPIL EEG LONG EEG EXTENDED MONITORING 61-119 MINUTES ELECTROENCEPHALOGRAM REC COMA/SLEEP ONLY Soila Kendrick PA-C [address] [place] [address] [facility] [address] [place] [address] Referral ID Status Reason Start Date Expiration Date Visits Requested Visits Authorized [id number] Authorized Auto-Generat ed Referral 11/28/2022 11/29/2023 1 1 [facility] for referral (narrative)* Diagnostic Procedure Only (Routine) - Closed Specialty Diagnoses / Procedures Referred By Contac t Referred To Contact XR IMAGING Diagnoses Sprain of right ankle, unspecified ligament, initial encounter Procedures XR TIBIA FIBULA 2V AP/LAT RIGHT RADIOLOGIC EXAMINATION TIBIA & FIBULA 2 VIEWS Brenden Puri [address] [place] [address] [place] [address] Referral ID Status Reason Start Date Expiration Date V isits Requested Visits Authorized [id number] Closed Auto-Generate d Referral 02/11/2023 03/12/2024 1 1 [facility] for referral (narrative)* Diagnostic Procedure Only (Routine) - Closed Specialty Diagnoses / Procedures Referred By Contac t Referred To Contact XR IMAGING Diagnoses Acute right ankle pain Procedures XR ANKLE GENERAL 3V AP/LAT/OBL RIGHT RADEX ANKLE COMPLETE MINIMUM 3 VIEWS Brenden Puri [address] [place] [address] [place] [address] Referral ID Status Reason Start Date Expiration Date V isits Requested Visits Authorized [id number] Closed Auto-Generate d Referral 02/06/2023 03/07/2024 1 1 T [facility] for referral (narrative)* Diagnostic Procedure Only (Routine) - Pending Review Specialty Diagnoses / Procedures Referred By Contac t Referred To Contact XR IMAGING Diagnoses Left knee pain, unspecified chronicity Procedures XR KNEE GENERAL 4V AP BOTH/PA BOTH/LAT/MERC LEFT RADIOLOGIC EXAM KNEE COMPLETE 4/MORE VIEWS Seven Hernandez MD [address] [place] [address] [place] [address] Referral ID Status Reason Start Date Expiration Date Visits Requested Visits Authorized [id number] Pending Review Auto-Generat ed Referral 01/11/2024 02/09/2025 1 1 [facility] for referral (narrative)* Diagnostic Procedure Only (Routine) - Closed Specialty Diagnoses / Procedures Referred By Contac t Referred To Contact XR IMAGING Diagnoses Left knee pain, unspecified chronicity Procedures XR KNEE GENERAL 4V AP BOTH/PA BOTH/LAT/MERC LEFT RADIOLOGIC EXAM KNEE COMPLETE 4/MORE VIEWS Seven Hernandez MD [address] [place] [address] [place] [address] Referral ID Status Reason Start Date Expiration Date V isits Requested Visits Authorized [id number] Closed Auto-Generate d Referral 01/11/2024 02/09/2025 1 1 [facility] for referral (narrative)* Outpatient Procedure (Routine) - Closed Specialty Diagnoses / Procedures Referred By Contac t Referred To Contact [facility] Diagnoses Pain of left calf Procedures US LEG VEIN DVT UNL VAS LAB DUP-SCAN XTR VEINS UNILATERAL/LIMITED STUDY Irene Randolph DO [address] [place] [address] [facility] [address] [place] [address] Referral ID Status Reason Start Date Expiration Date V isits Requested Visits Authorized [id number] Closed Auto-Generate d Referral 04/21/2024 04/21/2025 1 1 * Physical Therapy (Routine) - Authorized Specialty Diagnoses / Procedures Referred By Contac t Referred To Contact [facility] Diagnoses Chronic pain of left knee Acute medial meniscus tear of left knee, initial encounter Procedures CONSULT TO PHYSICAL THERAPY PHYSICAL THERAPY EVALUATION HIGH COMPLEX 45 MINS Irene Randolph DO [address] [place] [address] [facility] [address] [place] [address] Referral ID Status Reason Start Date Expiration Date Visits Requested Visits Authorized [id number] Authorized Auto-Generat ed Referral 08/10/2023 08/09/2024 1 1 * Diagnostic Procedure Only (Urgent) - New Request Specialty Diagnoses / Procedures Referred By Contac t Referred To Contact US IMAGING Diagnoses Pain of left calf Procedures US DVT LOWER LEFT DUP-SCAN XTR VEINS UNILATERAL/LIMITED STUDY Irene Randolph DO [address] [place] [address] [place] [address] Referral ID Status Reason Start Date Expiration Date Visits Requested Visits Authorized [id number] New Request Auto-Generat ed Referral 04/21/2024 05/21/2025 1 1 [facility] for referral (narrative)* Diagnostic Procedure Only (Urgent) - Closed Specialty Diagnoses / Procedures Referred By Contac t Referred To Contact XR IMAGING Diagnoses Bilateral sciatica Acute bilateral low back pain with bilateral sciatica Procedures XR LUMBAR GENERAL 3V AP/LAT/L5-S1 RADEX SPINE LUMBOSACRAL 2/3 VIEWS Lori Corral, ANDREA.SPOOL TENDER [address] [place] [address] [place] [address] Referral ID Status Reason Start Date Expiration Date V isits Requested Visits Authorized [id number] Closed Auto-Generate d Referral 08/24/2023 09/22/2024 1 1 [facility] for referral (narrative)* Diagnostic Procedure Only (Urgent) - Closed Specialty Diagnoses / Procedures Referred By Contac t Referred To Contact XR IMAGING Diagnoses Right hand pain Procedures XR HAND GENERAL 3V PA/LAT/OBL RIGHT RADEX HAND MINIMUM 3 VIEWS Steph Shaw, CASINO GAMING INSPECTOR.SPOOL TENDER [address] [place] [address] [facility] [address] Referral ID Status Reason Start Date Expiration Date V isits Requested Visits Authorized [id number] Closed Auto-Generate d Referral 05/06/2022 06/05/2023 1 1 [facility] for referral (narrative)* Outpatient Procedure (Routine) - New Request Specialty Diagnoses / Procedures Referred By Jordyn t Referred To Contact [facility] [place] Diagnoses Seizure (HCC) Procedures EPIL EEG LEAD PLACEMENT EEG EXTENDED MONITORING 61-119 MINUTES ELECTROENCEPHALOGRAM REC COMA/SLEEP ONLY Sierra Thompson PA-C [address] [facility] [address] [place] [address] Referral ID Status Reason Start Date Expiration Date Visits Requested Visits Authorized [id number] New Request Auto-Generat ed Referral 05/31/2025 1 1 [facility] for referral (narrative)* Outpatient Procedure (Routine) - Closed Specialty Diagnoses / Procedures Referred By Jordyn connolly Referred To Contact [facility] [place] Diagnoses Pain of left calf Procedures US LEG VEIN DVT UNL VAS LAB DUP-SCAN XTR VEINS UNILATERAL/LIMITED STUDY Irene Randolph DO [address] [place] [address] [facility] [address] [place] [address] Referral ID Status Reason Start Date Expiration Date V isits Requested Visits Authorized [id number] Closed Auto-Generate d Referral 07/14/2024 07/14/2025 1 1 [facility] for referral (narrative)No reason for referral information [facility] Work Phone: Reason for visit Narrative* Diagnostic Procedure Only (Routine) - Closed Specialty Diagnoses / Procedures Referred By Contac t Referred To Contact XR IMAGING Diagnoses Chronic neck pain Procedures XR CERV OTHER 6V AP/LAT/FLX/EXT/OBL RADEX SPINE CERVICAL 6 OR MORE VIEWS Jimena Ashley, CASINO GAMING INSPECTOR.SPOOL TENDER [address] [place] [address] Xr Imaging Referral ID Status Reason Start Date Expiration Date V isits Requested Visits Authorized [id number] Closed Auto-Generate d Referral 02/27/2022 03/29/2023 1 1 [facility] for visit Narrative* Diagnostic Procedure Only (Routine) - Closed Specialty Diagnoses / Procedures Referred By Contac t Referred To Contact XR IMAGING Diagnoses Sprain of right ankle, unspecified ligament, initial encounter Procedures XR TIBIA FIBULA 2V AP/LAT RIGHT RADIOLOGIC EXAMINATION TIBIA & FIBULA 2 VIEWS Brenden Puri [address] [place] [address] Xr Imaging [facility] Referral ID Status Reason Start Date Expiration Date V isits Requested Visits Authorized [id number] Closed Auto-Generate d Referral 02/11/2023 03/12/2024 1 1 [facility] for visit Narrative* Diagnostic Procedure Only (Routine) - Closed Specialty Diagnoses / Procedures Referred By Contac t Referred To Contact XR IMAGING Diagnoses Acute right ankle pain Procedures XR ANKLE GENERAL 3V AP/LAT/OBL RIGHT RADEX ANKLE COMPLETE MINIMUM 3 VIEWS Brenden Puri [address] [place] [address] [place] [address] Referral ID Status Reason Start Date Expiration Date V isits Requested Visits Authorized [id number] Closed Auto-Generate d Referral 02/06/2023 03/07/2024 1 1 [facility] for visit Narrative* Diagnostic Procedure Only (Routine) - Closed Specialty Diagnoses / Procedures Referred By Contac t Referred To Contact XR IMAGING Diagnoses Left leg pain Procedures XR HIP GENERAL 3V PELV/AP/LAT LEFT RADEX HIP UNILATERAL WITH PELVIS 2-3 VIEWS Seven Hernandez MD [address] [place] [address] [place] [address] Referral ID Status Reason Start Date Expiration Date V isits Requested Visits Authorized [id number] Closed Auto-Generate d Referral 02/09/2024 03/10/2025 1 1 [facility] for visit Narrative* Diagnostic Procedure Only (Urgent) - Closed Specialty Diagnoses / Procedures Referred By Contac t Referred To Contact XR IMAGING Diagnoses Bilateral sciatica Acute bilateral low back pain with bilateral sciatica Procedures XR LUMBAR GENERAL 3V AP/LAT/L5-S1 RADEX SPINE LUMBOSACRAL 2/3 VIEWS Lori Corral, CASINO GAMING INSPECTOR.SPOOL TENDER [address] [place] [address] [place] [address] Referral ID Status Reason Start Date Expiration Date V isits Requested Visits Authorized [id number] Closed Auto-Generate d Referral 08/24/2023 09/22/2024 1 1 [facility] for visit Narrative* Diagnostic Procedure Only (Urgent) - Closed Specialty Diagnoses / Procedures [facility] To Contact [facility] Diagnoses Right hand pain Procedures XR HAND GENERAL 3V PA/LAT/OBL RIGHT RADEX HAND MINIMUM 3 VIEWS Steph Shaw, CASINO GAMING INSPECTOR.SPOOL TENDER [address] [place] [address] [place] [address] Referral ID Status Reason Start Date Expiration Date V isits Requested Visits Authorized [id number] Closed Auto-Generate d Referral 05/06/2022 06/05/2023 1 1 [facility] for visit Narrative* Auth/Cert (Routine) Specialty Diagnoses / Procedures Referred By Mabelac t Referred To Contact Diagnoses Chronic pain of left knee Arthrofibrosis of knee joint, left Chronic pain of left knee [M25.562, G89.29] Arthrofibrosis of knee joint, left [M24.662] Procedures MANIPULATION KNEE JOINT UNDER GENERAL ANESTHESIA ARTHROSCOPY KNEE SYNOVECTOMY 2/>COMPARTMENTS ARTHROSCOPY KNEE W/LYSIS ADHESIONS W/WO MANJ SPX ARTHROSCOPY KNEE SYNOVECTOMY MAJOR MANIPULATION KNEE JOINT UNDER GENERAL ANES ARTHROSCOPY KNEE LYSIS OF ADHESIONS Surgery [address] [place] [address] Referral ID Status Reason Start Date Expiration Date Visits Re quested Visits Authorized [id number] 1 1 [facility] for visit Narrative* Diagnostic Procedure Only (Routine) - Closed Specialty Diagnoses / Procedures Referred By Jordyn connolly Referred To Contact XR IMAGING Diagnoses Left knee pain, unspecified chronicity Procedures XR KNEE GENERAL 4V AP BOTH/PA BOTH/LAT/MERC LEFT RADIOLOGIC EXAM KNEE COMPLETE 4/MORE VIEWS Elizabeth Karimi PA-C [address] [place] [address] Phone: tel: fax: [place] [address] Referral ID Status Reason Start Date Expiration Date V isits Requested Visits Authorized [id number] Closed Auto-Generate d Referral 01/11/2025 02/09/2026 1 1 [facility] for visit Narrative* Diagnostic Procedure Only (Routine) - Authorized Specialty Diagnoses / Procedures Referred By Jordyn connolly Referred To Contact [facility] Diagnoses Encounter for screening mammogram for breast cancer Abnormal mammogram of right breast Procedures US BREAST LTD RIGHT US BREAST UNI REAL TIME WITH IMAGE LIMITED Iveth Hernandez CASINO GAMING INSPECTOR.SPOOL TENDER [address] [place] [address] Phone: tel: fax: [facility] [address] [place] [address] Referral ID Status Reason Start Date Expiration Date Visits Requested Visits Authorized [id number] Authorized Auto-Generat ed Referral 12/06/2024 01/05/2026 1 1 [facility] for visit Narrative* Diagnostic Procedure Only (Routine) - Closed Specialty Diagnoses / Procedures Referred By Jordyn t Referred To Contact [facility] Diagnoses Encounter for screening mammogram for breast cancer Abnormal mammogram Abnormal mammogram of right breast Procedures MARNIE DIAG W ELIO BILATERAL DIGITAL BREAST TOMOSYNTHESIS BILATERAL Iveth Hernandez, CASINO GAMING INSPECTOR.SPOOL TENDER [address] [place] [address] Phone: tel: fax: [facility] [address] [place] [address] Referral ID Status Reason Start Date Expiration Date V isits Requested Visits Authorized [id number] Closed Auto-Generate d Referral 12/06/2024 01/05/2026 1 1 [facility] for visit Narrative* Outpatient Procedure (Routine) - Closed Specialty Diagnoses / Procedures Referred By Jordyn connolly Referred To Contact [facility] Diagnoses Coughing up blood Dysphagia, unspecified type Procedures EGD DIAGNOSTIC ESOPHAGOGASTRODUODENOSC OPY TRANSORAL DIAGNOSTIC Zhanna Shah APRN.SPOOL TENDER [address] [address] Phone: tel: fax: [facility] [address] [place] [address] Referral ID Status Reason Start Date Expiration Date V isits Requested Visits Authorized [id number] Closed Auto-Generate d Referral 12/07/2024 12/07/2025 1 1 [facility] MRI/CT (Routine) - Closed Specialty Diagnoses / Procedures Referred By Jordyn connolly Referred To Contact [facility] IM[facility] Diagnoses Chronic migraine with aura without status migrainosus, not intractable Procedures MRI BRAIN WO IVCON MRI BRAIN BRAIN STEM W/O CONTRAST MATERIAL Irene Randolph, DO [address] [place] [address] Phone: tel: fax: [place] [address] Referral ID Status Reason Start Date Expiration Date V isits Requested Visits Authorized [id number] Closed Auto-Generate d Referral 02/28/2025 04/29/2025 1 1 [facility] Chief Complaint Chief Complaint Description Start Date right thumb finger pain Preliminary chief co mplaint data, not yet signed by the author as of Instructions Instruction Description Start Date Patient advised to follow-up with Primary Care Physician for BMI management. 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 Advance Directive(s) 07/25/2021 8:48 AM Advance Directive(s) 01/05/2018 10:23 AM Advance Directive Response Recorded Date/ Time Living Will No March 27 10:42am Power of Iron Pourer No March 27, 10:42am Advance Directive Response Recorded Date/ Time Living Will No January 12, 2023 1 0:52am Power of Iron Pourer No January 12, 2023 10:52am Advance Directive Response Recorded Date/ Time Living Will No January 12, 2023 9 :52am Power of Iron Pourer No January 12, 2023 9:52am Advance Directive Response Recorded Date/ Time Living Will No September 19 11:05pm Power of Iron Pourer No September 19, 2023 11:05pm Advance Directive Response Recorded Date/ Time Living Will No September 20 12:05am Power of Iron Pourer No September 20, 2023 12:05am Advance Directive Response Recorded Date/ Time Living Will No December 10, 2023 3: 08pm Power of Iron Pourer No December 10, 2023 3:08pm Advance Directive Response Recorded Date/ Time Do you have a Healthcare Power of Iron Pourer? No March 06, 2025 10:39am Date Activated Date Inactivated Comments 03/06/2025 9:01 PM Question Answer Comments Full Code Order Discussed With: Patient Assessments There may be information available, but it has not been provided by the sender. Review of System There may be information available, but it has not been provided by the sender. Family History There may be information available, but it has not been provided by the sender. No data available for this section No data available for this section No Family History Records FoundNo Family History Records FoundNo Family History Records FoundNo Family History Records FoundNo Family History Records FoundNo Family History Records Found History of Present Illness There may be information available, but it has not been provided by the sender. Chief Complaint and Reason for Visit Chief Complaint RT HAND/ PT BRING RX Chief Complaint RT HAND/ PT BRING RX right wrist pain, redness Chief Complaint right wrist pain, re dness feeling tired intermittent palpitations Chief Complaint right ankle Chief Complaint gen pain Chief Complaint gen pain LEFT KNEE RM 4 L knee pain INTERNAL DERANGEMENT OF LEFT KNEE LEFT KNEE Reason for Visit Lumbar pain Left knee pain Chief Complaint gen pain LEFT KNEE RM 4 L knee pain INTERNAL DERANGEMENT OF LEFT KNEE LEFT KNEE Reason for Visit Lumbar pain Left knee pain Left knee pain Chief Complaint gen pain LEFT KNEE RM 4 L knee pain INTERNAL DERANGEMENT OF LEFT KNEE LEFT KNEE DDD. RX HERE LEFT KNEE LEFT KNEE Reason for Visit Lumbar pain Left knee pain Left knee pain Left knee pain Malingering Left knee pain Tear of medial meniscus of left knee Chief Complaint gen pain LEFT KNEE RM 4 L knee pain INTERNAL DERANGEMENT OF LEFT KNEE LEFT KNEE DDD. RX HERE LEFT KNEE LEFT KNEE MED MENISCUS TEAR LT KN/RX HERE Reason for Visit Lumbar pain Left knee pain Left knee pain Left knee pain Malingering Left knee pain Tear of medial meniscus of left knee Chief Complaint gen pain LEFT KNEE RM 4 L knee pain Reason for Visit Lumbar pain Left knee pain Chief Complaint Admit Date rt flank pain March 06, 2025 10:3 9am Medications Administered Section Inactive Administered Medications - [...] Indicated Resolved Time COVID-19 Rule-Out 01/07/2022 01/07/2022 Reason for Referral Specialty Diagnoses / Procedures Referred By Jordyn connolly Referred To Contact [facility] Diagnoses Sprain of right ankle, unspecified ligament, initial encounter Procedures CONSULT TO PHYSICAL THERAPY PHYSICAL THERAPY EVALUATION HIGH COMPLEX 45 MINS [address] [place] [address] [facility] [place] [address] [place] [address] Referral ID Status Reason Start Date Expiration Date Visits Requested Visits Authorized [id number] Pending Review Auto-Generat ed Referral 02/11/2023 02/11/2024 1 1 Specialty Diagnoses / Procedures Referred By Jordyn connolly Referred To Contact XR IMAGING Diagnoses Sprain of right ankle, unspecified ligament, initial encounter Procedures XR TIBIA FIBULA 2V AP/LAT RIGHT RADIOLOGIC EXAMINATION TIBIA & FIBULA 2 VIEWS Brenden Puri [address] [place] [address] Xr Imaging Referral ID Status Reason Start Date Expiration Date Visits Requested Visits Authorized [id number] Pending Review Auto-Generat ed Referral 02/11/2023 03/12/2024 1 1 Specialty Diagnoses / Procedures Referred By Jordyn connolly Referred To Contact MR IMAGING Diagnoses Acute right ankle pain Procedures MRI ANKLE WO IVCON RIGHT MRI ANY JT LOWER EXTREM W/O CONTRAST MATRL Brenden Puri [address] [place] [address] Mr Imaging Referral ID Status Reason Start Date Expiration Date Visits Requested Visits Authorized [id number] Pending Review Auto-Generat ed Referral 03/10/2023 04/08/2024 1 1 Specialty Diagnoses / Procedures Referred By Contac t Referred To Contact [facility] Diagnoses Sprain of right ankle, unspecified ligament, initial encounter Procedures PT REHAB FOLLOW UP ORDER THERAPEUTIC EXERCISES RE, EA 15 MIN. Brenden Puri [address] [place] [address] [facility] [place] [address] [place] [address] Referral ID Status Reason Start Date Expiration Date Visits Requested Visits Authorized [id number] Pending Review PCP Requested Referral Auto-Generate d Referral 03/13/2023 06/11/2023 1 1 Specialty Diagnoses / Procedures Referred By Jordyn t Referred To Contact Diagnoses Seizure (HCC) Uriel Greenwood MD [address] [facility] [address] [place] [id number] Referral ID Status Reason Start Date Expiration Date Visits Re quested Visits Authorized [id number] Closed 1 1 Referral ID Status Reason Start Date Expiration Date Visits Re quested Visits Authorized [id number] Closed 1 1 Specialty Diagnoses / Procedures Referred By Mabelac t Referred To Contact MR IMAGING Diagnoses Acute right ankle pain Procedures MRI ANKLE WO IVCON RIGHT MRI ANY JT LOWER EXTREM W/O CONTRAST MATRL Brenden Puri [address] [place] [address] Mr Imaging [place] [address] Referral ID Status Reason Start Date Expiration Date V isits Requested Visits Authorized [id number] Closed Auto-Generate d Referral 03/26/2023 05/25/2023 1 1 Specialty Diagnoses / Procedures Referred By Contac t Referred To Contact [facility] Diagnoses Tear of medial meniscus of left knee, current, unspecified tear type, initial encounter Procedures CONSULT TO PHYSICAL THERAPY PHYSICAL THERAPY EVALUATION HIGH COMPLEX 45 MINS Elizabeth Karimi PA-C [address] [place] [address] [facility] [address] [address] Referral ID Status Reason Start Date Expiration Date Visits Requested Visits Authorized [id number] Pending Review Auto-Generat ed Referral 04/01/2024 04/01/2025 1 1 Specialty Diagnoses / Procedures Referred By Contac t Referred To Contact [facility] Diagnoses Chronic pain of left knee Acute medial meniscus tear of left knee, initial encounter Procedures PT REHAB FOLLOW UP ORDER THERAPEUTIC EXERCISES RE, EA 15 MIN. Pt [facility] [address] [place] [address] [facility] [address] [address] Referral ID Status Reason Start Date Expiration Date Visits Requested Visits Authorized [id number] New Request PCP Requested Referral Auto-Generate d Referral 2024 08/10/2024 1 1 Referral ID Status Reason Start Date Expiration Date Visits Requested Visits Authorized [id number] New Request PCP Requested Referral Auto-Generate d Referral 10/19/2024 1 1 Specialty Diagnoses / Procedures Referred By Contac t Referred To Contact Diagnoses Overweight (BMI 25.0-29.9) Procedures ENDOCRINE MEDICAL WEIGHT MANAGEMENT OFFICE/OUTPATIENT NEW HIGH MDM 60 MINUTES Debbie Pichardo MD [address] [place] [address] Referral ID Status Reason Start Date Expiration Date Visits Requested Visits Authorized [id number] Authorized PCP Requested Referral 08/02/2025 1 1 Specialty Diagnoses / Procedures Referred By Contac t Referred To Contact Diagnoses Intractable chronic migraine without aura and without [place] [address] [address] [place] [address] Referral ID Status Reason Start Date Expiration Date V isits Requested Visits Authorized [id number] Authorized 08/25/2024 02/20/2025 1 1 Summary Purpose Additional Source Comments Reason for Visit (unrecogniz ed section and content) Reason Comments New Patient Specialty Diagnoses / Procedures Referred By Contac t Referred To Contact Spine Health / NEUROLOGY PAIN Diagnoses Chronic pain of left knee Knee pain Chronic pain of left knee [M25.562, G89.29] Procedures OFFICE/OUTPATIENT NEW MODERATE MDM 45 MINUTES NEW NEUR CHRONIC PAIN Irene Randolph DO [address] [place] [address] Phone: tel: fax: [place] [address] [place] [address] Phone: tel: fax: Referral ID Status Reason Start Date Expiration Date Visits Requested Visits Authorized [id number] Closed OON Notification Letter Patient Cleared - INN Insurance Found 12/01/2024 03/01/2025 1 1 Reason Comments Physical Therapy Specialty Diagnoses / Procedures Referred By Contac t Referred To Contact PHYSICAL THERAPY Diagnoses S83.242A (ICD-10-CM) - Tear of medial meniscus of left knee, current, unspecified tear type, initial encounter Procedures S83.242A (ICD-10-CM) - Tear of medial meniscus of left knee, current, unspecified tear type, initial encounter Elizabeth Karimi PA-C [address] [place] [address] Pt [facility] [address] [place] [address] Referral ID Status Reason Start Date Expiration Date V isits Requested Visits Authorized [id number] Authorized 08/10/2024 08/09/2025 10 10 Reason Comments PT Progress Note Reason For Visit Description Start Date New - 1st visit with practice Preliminary reason f or visit data, not yet signed by the author as of right thumb finger pain Reason Comments Follow Up Reason Comments Results Orders Reason Comments Appointment Reason Comments Appointment ER f/u- scheduled Reason Comments Infusion Headaches Specialty Diagnoses / Procedures Referred By Contac t Referred To Contact Neurology / NEUROLOGY Diagnoses vyepti Procedures [place] [address] [address] Neur Treatment [place] [address] [place] [address] Referral ID Status Reason Start Date Expiration Date V isits Requested Visits Authorized [id number] Pending Review 01/01/2022 04/01/2022 1 1 Reason Comments Sore Throat pain rated 1, 1 day covid exposure , chills Cough intermittent SOB, ch est pain Reason Comments Appointment Referral to PM Reason Comments Pain Pt reported Hx surge [...] Eval Specialty Diagnoses / Procedures Referred By Contac t Referred To Contact [facility] Diagnoses Sprain of right ankle, unspecified ligament, initial encounter Procedures CONSULT TO PHYSICAL THERAPY PHYSICAL THERAPY EVALUATION HIGH COMPLEX 45 MINS Brenden Puri [address] [place] [address] [facility] [place] [address] [place] [address] Referral ID Status Reason Start Date Expiration Date V isits Requested Visits Authorized [id number] Closed Auto-Generate d Referral 08/10/2022 08/09/2023 1 1 Reason Comments Results Reason Comments Missed Appointment New patient missed a ppointment. Reason Comments Sore Throat ST, ADDISON and sinus x 3 days Specialty Diagnoses / Procedures Referred By Contac t Referred To Contact MR IMAGING Diagnoses Acute right ankle pain Procedures MRI ANKLE WO IVCON RIGHT MRI ANY JT LOWER EXTREM W/O CONTRAST MATRL Brenden Puri [address] [place] [address] Mr Imaging [id number] Referral ID Status Reason Start Date Expiration Date V isits Requested Visits Authorized [id number] Closed Auto-Generate d Referral 03/26/2023 05/25/2023 1 1 Reason Comments New Knee Pain Reason Comments Chills abdominal burning, s trange taste x 2 days Reason Comments Knee Pain New Swelling Reason Comments Pre-Op Visit Reason Comments Radiology XR Specialty Diagnoses / Procedures Referred By Contac t Referred To Contact XR IMAGING Diagnoses Left knee pain, unspecified chronicity Procedures XR KNEE GENERAL 4V AP BOTH/PA BOTH/LAT/MERC LEFT RADIOLOGIC EXAM KNEE COMPLETE 4/MORE VIEWS Seven Hernandez MD [address] [place] [address] [place] [address] Referral ID Status Reason Start Date Expiration Date V isits Requested Visits Authorized [id number] Closed Auto-Generate d Referral 01/11/2024 02/09/2025 1 1 Reason Comments Established Patient Post Op Specialty Diagnoses / Procedures Referred By Contac t Referred To Contact [facility] Diagnoses Chronic pain of left knee Acute medial meniscus tear of left knee, initial encounter Procedures CONSULT TO PHYSICAL THERAPY PHYSICAL THERAPY EVALUATION HIGH COMPLEX 45 MINS Irene Randolph DO [address] [place] [address] [facility] [address] [address] Referral ID Status Reason Start Date Expiration Date V isits Requested Visits Authorized [id number] Closed Auto-Generate d Referral 08/10/2023 08/09/2024 1 1 Reason Comments Post Op Reason Comments Patient Question Reason Onset Date Comments Refill Request 05/24/2024 Reason Comments Seizures Follow Up Specialty Diagnoses / Procedures Referred By Jordyn t Referred To Contact [facility] Diagnoses Chronic pain of left knee Acute medial meniscus tear of left knee, initial encounter Procedures PT REHAB FOLLOW UP ORDER THERAPEUTIC EXERCISES RE, EA 15 MIN. Irene Randolph DO [address] [place] [address] [facility] [address] [address] Referral ID Status Reason Start Date Expiration Date Visits Requested Visits Authorized [id number] Authorized PCP Requested Referral Auto-Generate d Referral 05/17/2024 08/09/2024 8 8 Reason Comments Post Op 10 weeks post arthro scopic medical meniscus root/posterior horn repair Reason Comments New Reason Comments Prescription Refills Reason Comments Seizures Reason Comments PT Re-eval Specialty Diagnoses / Procedures Referred By Contac t Referred To Contact [facility] Diagnoses Tear of medial meniscus of left knee, current, unspecified tear type, initial encounter Procedures CONSULT TO PHYSICAL THERAPY PHYSICAL THERAPY EVALUATION HIGH COMPLEX 45 MINS Elizabeth Karimi PA-C [address] [place] [address] [facility] [address] [address] Referral ID Status Reason Start Date Expiration Date Visits Requested Visits Authorized [id number] Authorized Auto-Generat ed Referral 08/10/2023 08/09/2024 99 99 Specialty Diagnoses / Procedures Referred By Jordyn t Referred To Contact [facility] Diagnoses Tear of medial meniscus of left knee, current, unspecified tear type, initial encounter Procedures CONSULT TO PHYSICAL THERAPY PHYSICAL THERAPY EVALUATION HIGH COMPLEX 45 MINS Elizabeth Karimi PA-C [address] [place] [id number] [facility] [address] [address] Reason Comments Post Op 2 weeks post op Left knee ma nipulation under anesthesia and extensive synovectomy, S/P Left knee medial meniscus repair Reason Comments Thyroid Problem Reason Comments Overweight Specialty Diagnoses / Procedures Referred By Jordyn t Referred To Contact Diagnoses Overweight (BMI 25.0-29.9) Procedures ENDOCRINE MEDICAL WEIGHT MANAGEMENT OFFICE/OUTPATIENT NEW HIGH [facility] 60 MINUTES Debbie Pichardo MD [address] [place] [address] Referral ID Status Reason Start Date Expiration Date V isits Requested Visits Authorized [id number] Closed PCP Requested Referral 08/02/2024 08/02/2025 1 1 Reason Comments Chronic Migraine Reason Comments Knee Pain Post Op Follow Up Reason Comments Returning Patient's Call New Patient Reason Comments update Reason Comments Follow Up Knee Pain Reason Comments Injections Reason Comments Established Patient Chronic Migraines Reason Comments PT Re-eval Specialty Diagnoses / Procedures Referred By Contac t Referred To Contact PHYSICAL THERAPY Diagnoses S83.242A (ICD-10-CM) - Tear of medial meniscus of left knee, current, unspecified tear type, initial encounter Procedures S83.242A (ICD-10-CM) - Tear of medial meniscus of left knee, current, unspecified tear type, initial encounter Elizabeth Karimi PA-C [address] [place] [address] Phone: tel: fax: [facility] [address] [place] [address] Phone: tel: fax: Reason Comments post op pain Reason Comments Medication Authorization Lamictal XR Reason Comments Knee Pain Post Op Reason Comments Established Patient Headache Injections Sphenopalatine Specialty Diagnoses / Procedures Referred By Jordyn connolly Referred To Contact Pain Management / PAIN MANAGEMENT Diagnoses Chronic migraine without aura, intractable, with status migrainosus Sphenopalatine ganglion block (1 of 3); seafood & shellfish allergy Procedures INJECTION ANES AGENT SPHENOPALATINE GANGLION SPECIALTY INJECTION Frida Vargas APRN.SPOOL TENDER [address] [place] [address] Phone: tel: fax: Ani Rajput APRN.SPOOL TENDER [address] [place] [address] Phone: tel: fax: Referral ID Status Reason Start Date Expiration Date Visits Re quested Visits Authorized [id number] Closed 08/10/2024 08/09/2025 1 1 Reason Comments Patient Question Diagnostic mammogram . Reason Comments Consult Overdue for colonosc opy Specialty Diagnoses / Procedures Referred By Jordyn connolly Referred To Contact General Surgery / [facility] DEPARTMENT Diagnoses Screening for colon cancer Procedures CONSULT TO GENERAL SURGERY OFFICE/OUTPATIENT [facility] 60 MINUTES Iveth Hernandez, [employer]INO GAMING INSPECTOR.SPOOL TENDER [address] [place] [address] Phone: tel: fax: Candis Gamez MD [address] [place] [address] Phone: tel: fax: Referral ID Status Reason Start Date Expiration Date V isits Requested Visits Authorized [id number] Closed PCP Requested Referral 12/06/2024 03/06/2025 1 1 Reason Comments Establish Care Reason Comments Follow Up Migraine Specialty Diagnoses / Procedures Referred By Contac t Referred To Contact Pain Management / PAIN MANAGEMENT Diagnoses Encounter for general adult medical examination without abnormal findings Nerve blocks follow up Procedures OFFICE/OUTPATIENT ESTABLISHED HIGH MDM 40 MIN OFFICE/OUTPATIENT ESTABLISHED MOD MDM 30 MIN OFFICE/OUTPATIENT ESTABLISHED LOW MDM 20 MIN OFFICE/OUTPATIENT ESTABLISHED SF MDM 10 MIN EST PAIN Self Sam, ANDREA Viramontes.SPOOL TENDER [address] [place] [address] Phone: tel: fax: Referral ID Status Reason Start Date Expiration Date Visits Re quested Visits Authorized [id number] Closed 12/15/2024 08/09/2025 1 1 Reason Comments Knee Pain Reason Comments Yearly Exam Reason Comments Chronic Pain Specialty Diagnoses / Procedures Referred By Contac t Referred To Contact Diagnoses Chronic pain of left knee Procedures PROVIDER ORDERED FOLLOW UP OFFICE/OUTPATIENT NEW HIGH MDM 60 MINUTES Sania Price PA-C [address] [place] [address] Phone: tel: fax: Referral ID Status Reason Start Date Expiration Date V isits Requested Visits Authorized [id number] Closed PCP Requested Referral 02/09/2025 01/10/2026 1 1 Reason Comments Post Op Knee Pain Reason Comments Rectal Bleeding Reason Comments Rectal Bleeding bright red blood, ri ght flank pain x 3 days Source Comments (unrecognize d section and content) In the event this informatio n is protected by the Federal Confidentiality of Alcohol and Drug Abuse Patient Records regulations: The Federal rules restrict any use of the information to criminally investigate or prosecute any alcohol or drug abuse patient.[facility] the event this information is protected by the Federal Confidentiality of Alcohol and Drug Abuse Patient Records regulations: The Federal rules restrict any use of the information to criminally investigate or prosecute any alcohol or drug abuse patient.[facility] the event this information is protected by the Federal Confidentiality of Alcohol and Drug Abuse Patient Records regulations: The Federal rules restrict any use of the information to criminally investigate or prosecute any alcohol or drug abuse patient.[facility] the event this information is protected by the Federal Confidentiality of Alcohol and Drug Abuse Patient Records regulations: The Federal rules restrict any use of the information to criminally investigate or prosecute any alcohol or drug abuse patient.[facility] the event this information is protected by the Federal Confidentiality of Alcohol and Drug Abuse Patient Records regulations: The Federal rules restrict any use of the information to criminally investigate or prosecute any alcohol or drug abuse patient.[facility] the event this information is protected by the Federal Confidentiality of Alcohol and Drug Abuse Patient Records regulations: The Federal rules restrict any use of the information to criminally investigate or prosecute any alcohol or drug abuse patient.[facility] the event this information is protected by the Federal Confidentiality of Alcohol and Drug Abuse Patient Records regulations: The Federal rules restrict any use of the information to criminally investigate or prosecute any alcohol or drug abuse patient.[facility] the event this information is protected by the Federal Confidentiality of Alcohol and Drug Abuse Patient Records regulations: The Federal rules restrict any use of the information to criminally investigate or prosecute any alcohol or drug abuse patient.[facility] the event this information is protected by the Federal Confidentiality of Alcohol and Drug Abuse Patient Records regulations: The Federal rules restrict any use of the information to criminally investigate or prosecute any alcohol or drug abuse patient.[facility] the event this information is protected by the Federal Confidentiality of Alcohol and Drug Abuse Patient Records regulations: The Federal rules restrict any use of the information to criminally investigate or prosecute any alcohol or drug abuse patient.[facility] the event this information is protected by the Federal Confidentiality of Alcohol and Drug Abuse Patient Records regulations: The Federal rules restrict any use of the information to criminally investigate or prosecute any alcohol or drug abuse patient.[facility] the event this information is protected by the Federal Confidentiality of Alcohol and Drug Abuse Patient Records regulations: The Federal rules restrict any use of the information to criminally investigate or prosecute any alcohol or drug abuse patient.[facility] the event this information is protected by the Federal Confidentiality of Alcohol and Drug Abuse Patient Records regulations: The Federal rules restrict any use of the information to criminally investigate or prosecute any alcohol or drug abuse patient.[facility] the event this information is protected by the Federal Confidentiality of Alcohol and Drug Abuse Patient Records regulations: The Federal rules restrict any use of the information to criminally investigate or prosecute any alcohol or drug abuse patient.[facility] the event this information is protected by the Federal Confidentiality of Alcohol and Drug Abuse Patient Records regulations: The Federal rules restrict any use of the information to criminally investigate or prosecute any alcohol or drug abuse patient.[facility] the event this information is protected by the Federal Confidentiality of Alcohol and Drug Abuse Patient Records regulations: The Federal rules restrict any use of the information to criminally investigate or prosecute any alcohol or drug abuse patient.[facility] the event this information is protected by the Federal Confidentiality of Alcohol and Drug Abuse Patient Records regulations: The Federal rules restrict any use of the information to criminally investigate or prosecute any alcohol or drug abuse patient.[facility] the event this information is protected by the Federal Confidentiality of Alcohol and Drug Abuse Patient Records regulations: The Federal rules restrict any use of the information to criminally investigate or prosecute any alcohol or drug abuse patient.[facility] the event this information is protected by the Federal Confidentiality of Alcohol and Drug Abuse Patient Records regulations: The Federal rules restrict any use of the information to criminally investigate or prosecute any alcohol or drug abuse patient.[facility] the event this information is protected by the Federal Confidentiality of Alcohol and Drug Abuse Patient Records regulations: The Federal rules restrict any use of the information to criminally investigate or prosecute any alcohol or drug abuse patient.[facility] the event this information is protected by the Federal Confidentiality of Alcohol and Drug Abuse Patient Records regulations: The Federal rules restrict any use of the information to criminally investigate or prosecute any alcohol or drug abuse patient.[facility] the event this information is protected by the Federal Confidentiality of Alcohol and Drug Abuse Patient Records regulations: The Federal rules restrict any use of the information to criminally investigate or prosecute any alcohol or drug abuse patient.[facility]In the event this information is protected by the Federal Confidentiality of Alcohol and Drug Abuse Patient Records regulations: The Federal rules restrict any use of the information to criminally investigate or prosecute any alcohol or drug abuse patient.[facility] the event this information is protected by the Federal Confidentiality of Alcohol and Drug Abuse Patient Records regulations: The Federal rules restrict any use of the information to criminally investigate or prosecute any alcohol or drug abuse patient.[facility]In the event this information is protected by the Federal Confidentiality of Alcohol and Drug Abuse Patient Records regulations: The Federal rules restrict any use of the information to criminally investigate or prosecute any alcohol or drug abuse patient.[facility]In the event this information is protected by the Federal Confidentiality of Alcohol and Drug Abuse Patient Records regulations: The Federal rules restrict any use of the information to criminally investigate or prosecute any alcohol or drug abuse patient.[facility]In the event this information is protected by the Federal Confidentiality of Alcohol and Drug Abuse Patient Records regulations: The Federal rules restrict any use of the information to criminally investigate or prosecute any alcohol or drug abuse patient.[facility]In the event this information is protected by the Federal Confidentiality of Alcohol and Drug Abuse Patient Records regulations: The Federal rules restrict any use of the information to criminally investigate or prosecute any alcohol or drug abuse patient.[facility]In the event this information is protected by the Federal Confidentiality of Alcohol and Drug Abuse Patient Records regulations: The Federal rules restrict any use of the information to criminally investigate or prosecute any alcohol or drug abuse patient.[facility]In the event this information is protected by the Federal Confidentiality of Alcohol and Drug Abuse Patient Records regulations: The Federal rules restrict any use of the information to criminally investigate or prosecute any alcohol or drug abuse patient.[facility]In the event this information is protected by the Federal Confidentiality of Alcohol and Drug Abuse Patient Records regulations: The Federal rules restrict any use of the information to criminally investigate or prosecute any alcohol or drug abuse patient.[facility]In the event this information is protected by the Federal Confidentiality of Alcohol and Drug Abuse Patient Records regulations: The Federal rules restrict any use of the information to criminally investigate or prosecute any alcohol or drug abuse patient.[facility]In the event this information is protected by the Federal Confidentiality of Alcohol and Drug Abuse Patient Records regulations: The Federal rules restrict any use of the information to criminally investigate or prosecute any alcohol or drug abuse patient.[facility]In the event this information is protected by the Federal Confidentiality of Alcohol and Drug Abuse Patient Records regulations: The Federal rules restrict any use of the information to criminally investigate or prosecute any alcohol or drug abuse patient.[facility]In the event this information is protected by the Federal Confidentiality of Alcohol and Drug Abuse Patient Records regulations: The Federal rules restrict any use of the information to criminally investigate or prosecute any alcohol or drug abuse patient.[facility]In the event this information is protected by the Federal Confidentiality of Alcohol and Drug Abuse Patient Records regulations: The Federal rules restrict any use of the information to criminally investigate or prosecute any alcohol or drug abuse patient.[facility]In the event this information is protected by the Federal Confidentiality of Alcohol and Drug Abuse Patient Records regulations: The Federal rules restrict any use of the information to criminally investigate or prosecute any alcohol or drug abuse patient.[facility]In the event this information is protected by the Federal Confidentiality of Alcohol and Drug Abuse Patient Records regulations: The Federal rules restrict any use of the information to criminally investigate or prosecute any alcohol or drug abuse patient.[facility]In the event this information is protected by the Federal Confidentiality of Alcohol and Drug Abuse Patient Records regulations: The Federal rules restrict any use of the information to criminally investigate or prosecute any alcohol or drug abuse patient.[facility]In the event this information is protected by the Federal Confidentiality of Alcohol and Drug Abuse Patient Records regulations: The Federal rules restrict any use of the information to criminally investigate or prosecute any alcohol or drug abuse patient.[facility]In the event this information is protected by the Federal Confidentiality of Alcohol and Drug Abuse Patient Records regulations: The Federal rules restrict any use of the information to criminally investigate or prosecute any alcohol or drug abuse patient.[facility]In the event this information is protected by the Federal Confidentiality of Alcohol and Drug Abuse Patient Records regulations: The Federal rules restrict any use of the information to criminally investigate or prosecute any alcohol or drug abuse patient.[facility]In the event this information is protected by the Federal Confidentiality of Alcohol and Drug Abuse Patient Records regulations: The Federal rules restrict any use of the information to criminally investigate or prosecute any alcohol or drug abuse patient.[facility]In the event this information is protected by the Federal Confidentiality of Alcohol and Drug Abuse Patient Records regulations: The Federal rules restrict any use of the information to criminally investigate or prosecute any alcohol or drug abuse patient.[facility]In the event this information is protected by the Federal Confidentiality of Alcohol and Drug Abuse Patient Records regulations: The Federal rules restrict any use of the information to criminally investigate or prosecute any alcohol or drug abuse patient.[facility]In the event this information is protected by the Federal Confidentiality of Alcohol and Drug Abuse Patient Records regulations: The Federal rules restrict any use of the information to criminally investigate or prosecute any alcohol or drug abuse patient.[facility]In the event this information is protected by the Federal Confidentiality of Alcohol and Drug Abuse Patient Records regulations: The Federal rules restrict any use of the information to criminally investigate or prosecute any alcohol or drug abuse patient.[facility]In the event this information is protected by the Federal Confidentiality of Alcohol and Drug Abuse Patient Records regulations: The Federal rules restrict any use of the information to criminally investigate or prosecute any alcohol or drug abuse patient.[facility]In the event this information is protected by the Federal Confidentiality of Alcohol and Drug Abuse Patient Records regulations: The Federal rules restrict any use of the information to criminally investigate or prosecute any alcohol or drug abuse patient.[facility]In the event this information is protected by the Federal Confidentiality of Alcohol and Drug Abuse Patient Records regulations: The Federal rules restrict any use of the information to criminally investigate or prosecute any alcohol or drug abuse patient.[facility]In the event this information is protected by the Federal Confidentiality of Alcohol and Drug Abuse Patient Records regulations: The Federal rules restrict any use of the information to criminally investigate or prosecute any alcohol or drug abuse patient.[facility]In the event this information is protected by the Federal Confidentiality of Alcohol and Drug Abuse Patient Records regulations: The Federal rules restrict any use of the information to criminally investigate or prosecute any alcohol or drug abuse patient.[facility]In the event this information is protected by the Federal Confidentiality of Alcohol and Drug Abuse Patient Records regulations: The Federal rules restrict any use of the information to criminally investigate or prosecute any alcohol or drug abuse patient.[facility]In the event this information is protected by the Federal Confidentiality of Alcohol and Drug Abuse Patient Records regulations: The Federal rules restrict any use of the information to criminally investigate or prosecute any alcohol or drug abuse patient.[facility]In the event this information is protected by the Federal Confidentiality of Alcohol and Drug Abuse Patient Records regulations: The Federal rules restrict any use of the information to criminally investigate or prosecute any alcohol or drug abuse patient.[facility]In the event this information is protected by the Federal Confidentiality of Alcohol and Drug Abuse Patient Records regulations: The Federal rules restrict any use of the information to criminally investigate or prosecute any alcohol or drug abuse patient.[facility]In the event this information is protected by the Federal Confidentiality of Alcohol and Drug Abuse Patient Records regulations: The Federal rules restrict any use of the information to criminally investigate or prosecute any alcohol or drug abuse patient.[facility]In the event this information is protected by the Federal Confidentiality of Alcohol and Drug Abuse Patient Records regulations: The Federal rules restrict any use of the information to criminally investigate or prosecute any alcohol or drug abuse patient.[facility]In the event this information is protected by the Federal Confidentiality of Alcohol and Drug Abuse Patient Records regulations: The Federal rules restrict any use of the information to criminally investigate or prosecute any alcohol or drug abuse patient.[facility]In the event this information is protected by the Federal Confidentiality of Alcohol and Drug Abuse Patient Records regulations: The Federal rules restrict any use of the information to criminally investigate or prosecute any alcohol or drug abuse patient.[facility]In the event this information is protected by the Federal Confidentiality of Alcohol and Drug Abuse Patient Records regulations: The Federal rules restrict any use of the information to criminally investigate or prosecute any alcohol or drug abuse patient.[facility]In the event this information is protected by the Federal Confidentiality of Alcohol and Drug Abuse Patient Records regulations: The Federal rules restrict any use of the information to criminally investigate or prosecute any alcohol or drug abuse patient.[facility]In the event this information is protected by the Federal Confidentiality of Alcohol and Drug Abuse Patient Records regulations: The Federal rules restrict any use of the information to criminally investigate or prosecute any alcohol or drug abuse patient.[facility] the event this information is protected by the Federal Confidentiality of Alcohol and Drug Abuse Patient Records regulations: The Federal rules restrict any use of the information to criminally investigate or prosecute any alcohol or drug abuse patient.[facility]In the event this information is protected by the Federal Confidentiality of Alcohol and Drug Abuse Patient Records regulations: The Federal rules restrict any use of the information to criminally investigate or prosecute any alcohol or drug abuse patient.[facility]In the event this information is protected by the Federal Confidentiality of Alcohol and Drug Abuse Patient Records regulations: The Federal rules restrict any use of the information to criminally investigate or prosecute any alcohol or drug abuse patient.[facility]In the event this information is protected by the Federal Confidentiality of Alcohol and Drug Abuse Patient Records regulations: The Federal rules restrict any use of the information to criminally investigate or prosecute any alcohol or drug abuse patient.[facility]In the event this information is protected by the Federal Confidentiality of Alcohol and Drug Abuse Patient Records regulations: The Federal rules restrict any use of the information to criminally investigate or prosecute any alcohol or drug abuse patient.[facility]In the event this information is protected by the Federal Confidentiality of Alcohol and Drug Abuse Patient Records regulations: The Federal rules restrict any use of the information to criminally investigate or prosecute any alcohol or drug abuse patient.[facility]In the event this information is protected by the Federal Confidentiality of Alcohol and Drug Abuse Patient Records regulations: The Federal rules restrict any use of the information to criminally investigate or prosecute any alcohol or drug abuse patient.[facility]In the event this information is protected by the Federal Confidentiality of Alcohol and Drug Abuse Patient Records regulations: The Federal rules restrict any use of the information to criminally investigate or prosecute any alcohol or drug abuse patient.[facility]In the event this information is protected by the Federal Confidentiality of Alcohol and Drug Abuse Patient Records regulations: The Federal rules restrict any use of the information to criminally investigate or prosecute any alcohol or drug abuse patient.[facility]In the event this information is protected by the Federal Confidentiality of Alcohol and Drug Abuse Patient Records regulations: The Federal rules restrict any use of the information to criminally investigate or prosecute any alcohol or drug abuse patient.[facility]In the event this information is protected by the Federal Confidentiality of Alcohol and Drug Abuse Patient Records regulations: The Federal rules restrict any use of the information to criminally investigate or prosecute any alcohol or drug abuse patient.[facility]In the event this information is protected by the Federal Confidentiality of Alcohol and Drug Abuse Patient Records regulations: The Federal rules restrict any use of the information to criminally investigate or prosecute any alcohol or drug abuse patient.[facility]In the event this information is protected by the Federal Confidentiality of Alcohol and Drug Abuse Patient Records regulations: The Federal rules restrict any use of the information to criminally investigate or prosecute any alcohol or drug abuse patient.[facility]In the event this information is protected by the Federal Confidentiality of Alcohol and Drug Abuse Patient Records regulations: The Federal rules restrict any use of the information to criminally investigate or prosecute any alcohol or drug abuse patient.[facility]In the event this information is protected by the Federal Confidentiality of Alcohol and Drug Abuse Patient Records regulations: The Federal rules restrict any use of the information to criminally investigate or prosecute any alcohol or drug abuse patient.[facility]In the event this information is protected by the Federal Confidentiality of Alcohol and Drug Abuse Patient Records regulations: The Federal rules restrict any use of the information to criminally investigate or prosecute any alcohol or drug abuse patient.[facility]In the event this information is protected by the Federal Confidentiality of Alcohol and Drug Abuse Patient Records regulations: The Federal rules restrict any use of the information to criminally investigate or prosecute any alcohol or drug abuse patient.[facility]In the event this information is protected by the Federal Confidentiality of Alcohol and Drug Abuse Patient Records regulations: The Federal rules restrict any use of the information to criminally investigate or prosecute any alcohol or drug abuse patient.[facility]In the event this information is protected by the Federal Confidentiality of Alcohol and Drug Abuse Patient Records regulations: The Federal rules restrict any use of the information to criminally investigate or prosecute any alcohol or drug abuse patient.[facility]In the event this information is protected by the Federal Confidentiality of Alcohol and Drug Abuse Patient Records regulations: The Federal rules restrict any use of the information to criminally investigate or prosecute any alcohol or drug abuse patient.[facility]In the event this information is protected by the Federal Confidentiality of Alcohol and Drug Abuse Patient Records regulations: The Federal rules restrict any use of the information to criminally investigate or prosecute any alcohol or drug abuse patient.[facility]In the event this information is protected by the Federal Confidentiality of Alcohol and Drug Abuse Patient Records regulations: The Federal rules restrict any use of the information to criminally investigate or prosecute any alcohol or drug abuse patient.[facility]In the event this information is protected by the Federal Confidentiality of Alcohol and Drug Abuse Patient Records regulations: The Federal rules restrict any use of the information to criminally investigate or prosecute any alcohol or drug abuse patient.[facility]In the event this information is protected by the Federal Confidentiality of Alcohol and Drug Abuse Patient Records regulations: The Federal rules restrict any use of the information to criminally investigate or prosecute any alcohol or drug abuse patient.[facility]In the event this information is protected by the Federal Confidentiality of Alcohol and Drug Abuse Patient Records regulations: The Federal rules restrict any use of the information to criminally investigate or prosecute any alcohol or drug abuse patient.[facility]In the event this information is protected by the Federal Confidentiality of Alcohol and Drug Abuse Patient Records regulations: The Federal rules restrict any use of the information to criminally investigate or prosecute any alcohol or drug abuse patient.[facility]In the event this information is protected by the Federal Confidentiality of Alcohol and Drug Abuse Patient Records regulations: The Federal rules restrict any use of the information to criminally investigate or prosecute any alcohol or drug abuse patient.[facility]In the event this information is protected by the Federal Confidentiality of Alcohol and Drug Abuse Patient Records regulations: The Federal rules restrict any use of the information to criminally investigate or prosecute any alcohol or drug abuse patient.[facility]In the event this information is protected by the Federal Confidentiality of Alcohol and Drug Abuse Patient Records regulations: The Federal rules restrict any use of the information to criminally investigate or prosecute any alcohol or drug abuse patient.[facility]In the event this information is protected by the Federal Confidentiality of Alcohol and Drug Abuse Patient Records regulations: The Federal rules restrict any use of the information to criminally investigate or prosecute any alcohol or drug abuse patient.[facility]In the event this information is protected by the Federal Confidentiality of Alcohol and Drug Abuse Patient Records regulations: The Federal rules restrict any use of the information to criminally investigate or prosecute any alcohol or drug abuse patient.[facility]In the event this information is protected by the Federal Confidentiality of Alcohol and Drug Abuse Patient Records regulations: The Federal rules restrict any use of the information to criminally investigate or prosecute any alcohol or drug abuse patient.[facility]In the event this information is protected by the Federal Confidentiality of Alcohol and Drug Abuse Patient Records regulations: The Federal rules restrict any use of the information to criminally investigate or prosecute any alcohol or drug abuse patient.[facility]In the event this information is protected by the Federal Confidentiality of Alcohol and Drug Abuse Patient Records regulations: The Federal rules restrict any use of the information to criminally investigate or prosecute any alcohol or drug abuse patient.[facility]In the event this information is protected by the Federal Confidentiality of Alcohol and Drug Abuse Patient Records regulations: The Federal rules restrict any use of the information to criminally investigate or prosecute any alcohol or drug abuse patient.[facility]In the event this information is protected by the Federal Confidentiality of Alcohol and Drug Abuse Patient Records regulations: The Federal rules restrict any use of the information to criminally investigate or prosecute any alcohol or drug abuse patient.[facility]In the event this information is protected by the Federal Confidentiality of Alcohol and Drug Abuse Patient Records regulations: The Federal rules restrict any use of the information to criminally investigate or prosecute any alcohol or drug abuse patient.[facility]In the event this information is protected by the Federal Confidentiality of Alcohol and Drug Abuse Patient Records regulations: The Federal rules restrict any use of the information to criminally investigate or prosecute any alcohol or drug abuse patient.[facility]In the event this information is protected by the Federal Confidentiality of Alcohol and Drug Abuse Patient Records regulations: The Federal rules restrict any use of the information to criminally investigate or prosecute any alcohol or drug abuse patient.[facility]In the event this information is protected by the Federal Confidentiality of Alcohol and Drug Abuse Patient Records regulations: The Federal rules restrict any use of the information to criminally investigate or prosecute any alcohol or drug abuse patient.[facility]In the event this information is protected by the Federal Confidentiality of Alcohol and Drug Abuse Patient Records regulations: The Federal rules restrict any use of the information to criminally investigate or prosecute any alcohol or drug abuse patient.[facility]In the event this information is protected by the Federal Confidentiality of Alcohol and Drug Abuse Patient Records regulations: The Federal rules restrict any use of the information to criminally investigate or prosecute any alcohol or drug abuse patient.[facility]In the event this information is protected by the Federal Confidentiality of Alcohol and Drug Abuse Patient Records regulations: The Federal rules restrict any use of the information to criminally investigate or prosecute any alcohol or drug abuse patient.[facility]In the event this information is protected by the Federal Confidentiality of Alcohol and Drug Abuse Patient Records regulations: The Federal rules restrict any use of the information to criminally investigate or prosecute any alcohol or drug abuse patient.[facility] the event this information is protected by the Federal Confidentiality of Alcohol and Drug Abuse Patient Records regulations: The Federal rules restrict any use of the information to criminally investigate or prosecute any alcohol or drug abuse patient.[facility] the event this information is protected by the Federal Confidentiality of Alcohol and Drug Abuse Patient Records regulations: The Federal rules restrict any use of the information to criminally investigate or prosecute any alcohol or drug abuse patient.[facility] the event this information is protected by the Federal Confidentiality of Alcohol and Drug Abuse Patient Records regulations: The Federal rules restrict any use of the information to criminally investigate or prosecute any alcohol or drug abuse patient.[facility] the event this information is protected by the Federal Confidentiality of Alcohol and Drug Abuse Patient Records regulations: The Federal rules restrict any use of the information to criminally investigate or prosecute any alcohol or drug abuse patient.[facility] the event this information is protected by the Federal Confidentiality of Alcohol and Drug Abuse Patient Records regulations: The Federal rules restrict any use of the information to criminally investigate or prosecute any alcohol or drug abuse patient.[facility] the event this information is protected by the Federal Confidentiality of Alcohol and Drug Abuse Patient Records regulations: The Federal rules restrict any use of the information to criminally investigate or prosecute any alcohol or drug abuse patient.[facility] the event this information is protected by the Federal Confidentiality of Alcohol and Drug Abuse Patient Records regulations: The Federal rules restrict any use of the information to criminally investigate or prosecute any alcohol or drug abuse patient.[facility] the event this information is protected by the Federal Confidentiality of Alcohol and Drug Abuse Patient Records regulations: The Federal rules restrict any use of the information to criminally investigate or prosecute any alcohol or drug abuse patient.[facility]In the event this information is protected by the Federal Confidentiality of Alcohol and Drug Abuse Patient Records regulations: The Federal rules restrict any use of the information to criminally investigate or prosecute any alcohol or drug abuse patient.[facility] the event this information is protected by the Federal Confidentiality of Alcohol and Drug Abuse Patient Records regulations: The Federal rules restrict any use of the information to criminally investigate or prosecute any alcohol or drug abuse patient.[facility] the event this information is protected by the Federal Confidentiality of Alcohol and Drug Abuse Patient Records regulations: The Federal rules restrict any use of the information to criminally investigate or prosecute any alcohol or drug abuse patient.[facility] Care Teams (unrecognized sec tion and content) Clothing Sales Assistant Relationship Specialty Start Date End Date Jimenez Stewart Jr. PCP - General Internal Medicine 08/27/12 Clothing Sales Assistant Relationship Specialty Start Date End Date Jimenez Stewart Jr. PCP - General Internal Medicine 08/27/12 Clothing Sales Assistant Relationship Specialty Start Date End Date Jimenez Stewart Jr. PCP - General Internal Medicine 08/27/12 Clothing Sales Assistant Relationship Specialty Start Date End Date Jimenez Stewart Jr. PCP - General Internal Medicine 08/27/12 Clothing Sales Assistant Relationship Specialty Start Date End Date Jimenez Stewart Jr. PCP - General Internal Medicine 08/27/12 Clothing Sales Assistant Relationship Specialty Start Date End Date Jimenez Stewart Jr. PCP - General Internal Medicine 08/27/12 Clothing Sales Assistant Relationship Specialty Start Date End Date Jimenez Stewart Jr., MD PCP - General Internal Medicine 08/27/12 Clothing Sales Assistant Relationship Specialty Start Date End Date Jimenez Stewart Jr., MD PCP - General Internal Medicine 08/27/12 Clothing Sales Assistant Relationship Specialty Start Date End Date Jimenez Stewart Jr., MD PCP - General Internal Medicine 08/27/12 Clothing Sales Assistant Relationship Specialty Start Date End Date Jimenez Stewart Jr., MD PCP - General Internal Medicine 08/27/12 Clothing Sales Assistant Relationship Specialty Start Date End Date Jimenez Stewart Jr., MD PCP - General Internal Medicine 08/27/12 Team Status: Active Member Role Status Dates Rae Aguayo ADDICTION TREATMENT COUNSELOR, ADDICTION TREATMENT COUNSELOR-C Family Provider Active Jimenez Cabrera ADDICTION TREATMENT COUNSELOR, ADDICTION TREATMENT COUNSELOR-C Primary Care Provider Active Team Status: Inactive Member Role Status Dates Jimenez Cabrera ADDICTION TREATMENT COUNSELOR, ADDICTION TREATMENT COUNSELOR-C Primary Care Provider Active Dr. Thomas Atwood DO Emergency Provider Active Team Status: Inactive Member Role Status Dates Jimenez Cabrera ADDICTION TREATMENT COUNSELOR, ADDICTION TREATMENT COUNSELOR-C Primary Care Provider Active Ed Physician Provider Emergency Provider Active Team Status: Inactive Member Role Status Dates Jimenez Cabrera ADDICTION TREATMENT COUNSELOR, ADDICTION TREATMENT COUNSELOR-C Primary Care Provider, Referring Provider Active Lyudmila MENDEZ, PA Attending Provider Active Team Status: Inactive Member Role Status Dates Jimenez Cabrera ADDICTION TREATMENT COUNSELOR, ADDICTION TREATMENT COUNSELOR-C Primary Care Provider Active Dr. Delgado Engle MD Attending Provider Active Team Status: Active Member Role Status Dates Jimenez Cabrera ADDICTION TREATMENT COUNSELOR, ADDICTION TREATMENT COUNSELOR-C Primary Care Provider, Referring Provider Active Dr. Vince Wall DO Attending Provider Active Team Status: Inactive Member Role Status Dates Jimenez Cabrera ADDICTION TREATMENT COUNSELOR, ADDICTION TREATMENT COUNSELOR-C Primary Care Provider Active Ed Physician Provider Attending Provider, Emergency Pr ovider Active Team Status: Inactive Member Role Status Dates Jimenez Cabrera ADDICTION TREATMENT COUNSELOR, ADDICTION TREATMENT COUNSELOR-C Primary Care Provider Active Lyudmila MENDEZ, PA Attending Provider, Referring Provi ian Active Team Status: Inactive Member Role Status Dates Jimenez Cabrera ADDICTION TREATMENT COUNSELOR, ADDICTION TREATMENT COUNSELOR-C Primary Care Provider Active Dr. Carla Moore MD Attending Provider, Emergency Provider Active Team Status: Inactive Member Role Status Dates Jimenez Cabrera ADDICTION TREATMENT COUNSELOR, ADDICTION TREATMENT COUNSELOR-C Primary Care Provider, Referring Provider Active Dr. Vince Wall DO Attending Provider Active Team Status: Inactive Member Role Status Dates Jimenez Cabrera ADDICTION TREATMENT COUNSELOR, ADDICTION TREATMENT COUNSELOR-C Primary Care Provider Active Dr. Vince Wall DO Attending Provider, Referring Provider Active Team Status: Inactive Member Role Status Dates Jimenez Cabrera ADDICTION TREATMENT COUNSELOR, ADDICTION TREATMENT COUNSELOR-C Primary Care Provider, Referring Provider Active Joni Landis MD Attending Provider Active Team Status: Active Member Role Status Dates Jimenez Cabrera ADDICTION TREATMENT COUNSELOR, ADDICTION TREATMENT COUNSELOR-C Primary Care Provider Active Dr. Gordy Ruiz MD Attending Provider, Referrin g Provider Active Team Status: Inactive Member Role Status Dates Jimenez Cabrera ADDICTION TREATMENT COUNSELOR, ADDICTION TREATMENT COUNSELOR-C Primary Care Provider Active Dr. Gordy Ruiz MD Attending Provider, Referrin g Provider Active Team Status: Inactive Member Role Status Dates Jimenez Cabrera ADDICTION TREATMENT COUNSELOR, ADDICTION TREATMENT COUNSELOR-C Primary Care Provider Active Joni Landis MD Attending Provider, Referring Prov ider Active Team Status: Inactive Member Role Status Dates Jimenez Cabrera ADDICTION TREATMENT COUNSELOR, ADDICTION TREATMENT COUNSELOR-C Primary Care Provider Active Dr. Carla Moore MD Emergency Provider Active Clothing Sales Assistant Relationship Specialty Start Date End Date Jimenez Stewart Jr., MD PCP - General Internal Medicine 08/27/12 09/24/22 Clothing Sales Assistant Relationship Specialty Start Date End Date Iveth Hernandez CASINO GAMING INSPECTOR.SPOOL TENDER [address], [place] [id number] PCP - General Family Medicine 12/06/24 Clothing Sales Assistant Relationship Specialty Start Date End Date Iveth Hernandez CASINO GAMING INSPECTOR.SPOOL TENDER [address], [place] [id number] PCP - General Family Medicine 12/06/24 Clothing Sales Assistant Relationship Specialty Start Date End Date Iveth Hernandez, CASINO GAMING INSPECTOR.SPOOL TENDER [address] [place] [address] PCP - General Family Medicine 12/06/24 Clothing Sales Assistant Relationship Specialty Start Date End Date Iveth Hernandez, CASINO GAMING INSPECTOR.SPOOL TENDER [address] [place] [address] PCP - General Family Medicine 12/06/24 Clothing Sales Assistant Relationship Specialty Start Date End Date Iveth Hernandez, CASINO GAMING INSPECTOR.SPOOL TENDER [address] [place] [address] PCP - General Family Medicine 12/06/24 Clothing Sales Assistant Relationship Specialty Start Date End Date Iveth Hernandez, CASINO GAMING INSPECTOR.SPOOL TENDER [address] [place] [address] PCP - General Family Medicine 12/06/24 Clothing Sales Assistant Relationship Specialty Start Date End Date Iveth Hernandez, CASINO GAMING INSPECTOR.SPOOL TENDER [address] [place] [address] PCP - General Family Medicine 12/06/24 Clothing Sales Assistant Relationship Specialty Start Date End Date Iveth Hernandez, CASINO GAMING INSPECTOR.SPOOL TENDER [address] [place] [address] PCP - General Family Medicine 12/06/24 Clothing Sales Assistant Relationship Specialty Start Date End Date Iveth Hernandez, CASINO GAMING INSPECTOR.SPOOL TENDER [address] [place] [address] PCP - General Family Medicine 12/06/24 Clothing Sales Assistant Relationship Specialty Start Date End Date Iveth Hernandez A, CASINO GAMING INSPECTOR.SPOOL TENDER [address] [place] [address] PCP - General Family Medicine 12/06/24 Clothing Sales Assistant Relationship Specialty Start Date End Date QueIveth sanchez A, CASINO GAMING INSPECTOR.SPOOL TENDER [address] [place] [address] PCP - General Family Medicine 12/06/24 Clothing Sales Assistant Relationship Specialty Start Date End Date Iveth Hernandez A, CASINO GAMING INSPECTOR.SPOOL TENDER [address] [place] [address] PCP - General Family Medicine 12/06/24 Clothing Sales Assistant Relationship Specialty Start Date End Date Iveth Hernandez A, CASINO GAMING INSPECTOR.SPOOL TENDER [address] [place] [address] PCP - General Family Medicine 12/06/24 Clothing Sales Assistant Relationship Specialty Start Date End Date Iveth Hernandez, CASINO GAMING INSPECTOR.SPOOL TENDER [address] [place] [address] PCP - General Family Medicine 12/06/24 Clothing Sales Assistant Relationship Specialty Start Date End Date Iveth Hernandez A, CASINO GAMING INSPECTOR.SPOOL TENDER [address] [place] [address] PCP - General Family Medicine 12/06/24 Clothing Sales Assistant Relationship Specialty Start Date End Date Iveth Hernandez, CASINO GAMING INSPECTOR.SPOOL TENDER [address] [place] [address] PCP - General Family Medicine 12/06/24 Clothing Sales Assistant Relationship Specialty Start Date End Date Iveth Hernandez A, CASINO GAMING INSPECTOR.SPOOL TENDER [address] [place] [address] PCP - General Family Medicine 12/06/24 Clothing Sales Assistant Relationship Specialty Start Date End Date Iveth Hernandez APRN.SPOOL TENDER [address] [place] [address] PCP - General Family Medicine 12/06/24 Team Status: Active Member Role/Relationship Status Dates Jimenez Cabrera ADDICTION TREATMENT COUNSELOR, ADDICTION TREATMENT COUNSELOR-C Primary Care Provider Active Team Status: Inactive Member Role/Relationship Status Dates Jimenez Cabrera ADDICTION TREATMENT COUNSELOR, ADDICTION TREATMENT COUNSELOR-C Primary Care Provider Active Start: March 06, 2025 End: March 06, 2025 Dr. Hailee Weiss , DO Emergency Provider Active Start: March 06, 2025 End: March 06, 2025 Clothing Sales Assistant Relationship Specialty Start Date End Date Iveth Hernandez CASINO GAMING INSPECTOR.SPOOL TENDER [address] [place] [address] PCP - General Family Medicine 12/06/24 Goals (unrecognized section and content) Goals may be documented in a n alternate sectionGoals may be documented in an alternate sectionGoals may be documented in an alternate sectionGoals may be documented in an alternate section No data available for this section No data available for this sectionGoals may be documented in an alternate sectionGoals may be documented in an alternate sectionGoals may be documented in an alternate sectionGoals may be documented in an alternate sectionGoals may be documented in an alternate sectionGoals may be documented in an alternate sectionGoals may be documented in an alternate sectionGoals may be documented in an alternate section INFORMATION SOURCE (unrecogn ized section and content) DATE CREATED AUTHOR 04/10/2023 [facility] ([place]) DATE CREATED AUTHOR AUTHOR'S ORGANIZ ATION 09/14/2024 [facility] DATE CREATED AUTHOR AUTHOR'S ORGANIZ ATION 09/17/2024 [facility] DATE CREATED AUTHOR AUTHOR'S ORGANIZ ATION 01/15/2025 DATE CREATED AUTHOR AUTHOR'S ORGANIZ ATION 03/04/2025 [facility] DATE CREATED AUTHOR AUTHOR'S ORGANIZ ATION 03/06/2025 [facility] Scheduled Active and Recently Administ ered Medications (unrecognized section and content) Medication Order 10/02/2024 10/03/2024 10/04/2024 acetaminophen 1,000 mg tab(s) (TYLENOL) (CANCELED) 1,000 mg, ORAL, DIRECTED, Starting on Thu10/04/24 at 0830, Until Thu10/04/24 at 1027, pre o[ med, Preprocedure 0823 (Given - Provid er: Marion Lima RN) clindamycin iv piggyback 600 mg in D5W 50 mL (CLEOCIN) (COMPLETED) 600 mg, INTRAVENOUS, at 100 mL/hr, Administer over 30 Minutes, ONCE, 1 dose, On Thu10/04/24 at 0800, Antimicrobial indication: Prophylaxis, Preprocedure 0815 (Sent with Nancy ent - Provider: Marion Lima RN)0947 (Given - Provider: Deyvi Coto APRN.AUTOMATIC LATHE SETTER) fentaNYL 50 mcg/mL 50 mcg injection (SUBLIMAZE) (COMPLETED) 50 mcg, INTRAVENOUS, ONCE, 1 dose, On Thu10/04/24 at 0900, for block, Preprocedure 0844 (Given - Provid er: Marion Lima RN) midazolam (PF) 2 mg injection (VERSED) (COMPLETED) 2 mg, INTRAVENOUS, ONCE, 1 dose, On Thu10/04/24 at 0830, midazolam for block, Preprocedure 0829 (Given - Provid er: Marion Lima RN) scopolamine (delivers 1 mg over 3 days) 1 Patch (TRANSDERM-SCOP) 1 Patch, TRANSDERMAL, Administer over 24 Hours, ONCE, 1 dose, On Thu10/04/24 at 0830, Apply patch behind ear. Each time a new patch is needed it should be placed behind the alternate ear from the previous patch. Remove old patch. Each transdermal system contains 1.5 mg scopolamine base and delivers 1 mg over 3 days., Preprocedure 0823 (Given - Provid er: Marion Jb, RN) traMADol 50 mg tab(s) (ULTRAM) (COMPLETED) 50 mg, ORAL, ONCE, 1 dose, On Thu10/04/24 at 1100, Recovery or Phase I (only) 1043 (Given - Provid er: Melanie Briseno RN) Continuous Medication Order 10/02/2024 10/03/2024 10/04/2024 lactated ringers iv infusion (CANCELED) 5-30 mL/hr, INTRAVENOUS, CONTINUOUS, Starting on Thu10/04/24 at 0800, Until Thu10/04/24 at 0817, Preprocedure 0814 (New Bag/Syring e/Bottle - Provider: Marion Lima RN)0817 (Due: Order Ending - Provider: Vince Rai MD - Comment: [Order ends at this time. Document a Stopped action when infusion is complete.]) lactated ringers iv infusion 5-30 mL/hr, INTRAVENOUS, CONTINUOUS, Starting on Thu10/04/24 at 1100, Until Thu10/05/24 at 0302, Recovery or Phase I (only) 1100 (Due) PRN Medication Order 10/02/2024 10/03/2024 10/04/2024 fentaNYL 50 mcg/mL 50 mcg injection (SUBLIMAZE) 50 mcg, INTRAVENOUS, EVERY 10 MINUTES NEEDED, 4 doses, Starting on Thu10/04/24 at 1032, Until Thu10/05/24 at 0302, Moderate Pain (4-6) - Parenteral, Severe Pain (>/=7) - Parenteral, FIRST LINE THERAPY, Every 10 minutes., Recovery or Phase I (only) 1038 (Given - Provid er: Melanie Briseno RN) triamcinolone acetonide 2 mL in NaCl (PF) 0.9% 4 mL (CANCELED) X (OR/PROCEDURE) PRN, Starting on Thu10/04/24 at 1016, Until Thu10/04/24 at 1029, Intraprocedure 1016 (Given - Provid er: Irene Randolph DO - Comment: infiltration) FOR RECORDS PERTAINING TO PATIENTS WHO ARE [...] BE BASED ON THE PRIMARY CLINICAL RECORDS. [facility] [employer] [facility]. provides no warranty or guarantee of the accuracy or completeness of information in this document.
== END 2025-03-06 18:57 | disposition short-term general hospital (02) ==
PROVIDERS: Emergency Provider Emergency Medicine; PCP Nurse Practitioner Family; Visit Provider Emergency Medicine
DX: R10.9 Unspecified abdominal pain (principal); N39.0 Urinary tract infection, site not specified; Z90.710 Acquired absence of both cervix and uterus; N20.2 Calculus of kidney with calculus of ureter; F32.A Depression, unspecified; Z79.899 Other long term (current) drug therapy; I10 Essential (primary) hypertension
CPT/HCPCS: 74177; 80053; 81001; 82274; 83690; 85025; 87077; 87086; 87088; 87186; 96361; 96365; 96366; 96375; 96376; 99284; Q9967; A4216; J2405

== ENCOUNTER 2025-07-30 09:57 | Emergency (ER) | payer MEDICAID, SELFPAY ==
[2025-07-30 09:58] VITALS: BP 107/66; PULSE 88; RESP 15; TEMP 36.2; O2SAT 100; BMI 33.0
--- OUTSIDE RECORDS SUMMARY | 2025-07-30 10:10 | XMS RPT_ITS | CCD ---
Author Organization [facility] [place] Inform ion Partnership [facility] Care Team Providers Care Restorative Care Technician Name Role Phone Lavonne Mace Unavailable [phone] Alberto Matamoros MD Unavailable Jimenez Stewart Jr. Primary Care Provider Terry Boykin MD, Jimenez Barahona Primary Care Provider Terry Boykin MD, Jimenez Barahona Primary Care Provider Terry Boykin MD, Jimenez Barahona Primary Care Provider Unavailable Primary Care Provider Unavailabl e BALGUSTABO BLASTING CONTRACT MAN-GEMMA, ELIZ Primary Care Physician DAIJA DUMASN-COMMUNITY HEALTH PLANNING DIRECTOR, DAYAN Attending Unavailab le BALTES BLASTING CONTRACT MAN-COMMUNITY HEALTH PLANNING DIRECTOR, ELIZ Primary Care Unavailabl e FISH BLASTING CONTRACT MAN-COMMUNITY HEALTH PLANNING DIRECTOR, DAYAN Attending Unavailab le BALTES BLASTING CONTRACT MAN-COMMUNITY HEALTH PLANNING DIRECTOR, ELIZ Primary Care Unavailabl e Deborah POLICY CHANGE CLERKS SUPERVISOR, POLICY CHANGE CLERKS SUPERVISOR-C Jimenez Ibarra Primary Care Pr ovider Deborah MOODY, POLICY CHANGE CLERKS SUPERVISOR-C Jimenez Ibarra Referring Provi ian ANDREA Portillo Attending Provider [phone] Dr. Delgado Engle Attending Provider Dr. Vince Wall Attending Provider Deborah MOODY, POLICY CHANGE CLERKS SUPERVISOR-C Jimenez Ibarra Primary Care Pr ovider Deborah MOODY, POLICY CHANGE CLERKS SUPERVISOR-C Jimenez Ibarra Referring Provi ian ANDREA Portillo Attending Provider Dr. Delgado Engle Attending Provider Dr. Vince Wall Attending Provider [phone] MD Joni Landis Attending Provider [phone] Unavailable Primary Care Provider Unavailabl e Terry Boykin MD, Jimenez Barahona Primary Care Provider Queden BLASTING CONTRACT MAN.COMMUNITY HEALTH PLANNING DIRECTOR, Iveth A Primary Care Provider Deborah POLICY CHANGE CLERKS SUPERVISOR-C, Jimenez Ibarra Primary Care Provi ian Dr. Hailee Weiss DO Emergency Provider Fransisco RN, Carla Unavailable Celeste GAONA, Tania Unavailable [phone] Fransisco GAONA, Carla Unavailable Deborah POLICY CHANGE CLERKS SUPERVISOR, Jimenez Ibarra Primary Care Unav ailable Hailee Weiss Attending Unavailable YESICA BEAN Attending Unavailable SELF Referring Unavailable YSEICA BEAN Attending Unavailable QUEDEN, IVETH A Primary Care Unavailable QUEDEN, IVETH A Primary Care Unavailable REGOTTI, ELIZABETH Referring Unavailable PROVIDER, UNKNOWN Referring Unavailable QUEDEN, IVETH A Primary Care Unavailable QUEDEN, IVETH Primary Care Unavailable PREBISH, FRIDA Attending Unavailable PREBISH, FRIDA Referring Unavailable ANI RAJPUT Attending Unavailable QUEDEN, IVETH Primary Care Unavailable PREBISH, FRIDA Attending Unavailable SELF Referring Unavailable QUEDEN, IVETH Primary Care Unavailable KALESSA, DUONG Referring Unavailable QUEDEN, IVETH Primary Care Unavailable QUEDEN, IVETH Primary Care Unavailable ANA JONES Attending Unavail able QUEDEN, IVETH Primary Care Unavailable GLORIA SMITH Attending Unavailable QUEDEN, IVETH Primary Care Unavailable QUEDEN, IVETH Primary Care Unavailable QUEDEN, IVETH Primary Care Unavailable QUEDEN, IVETH Primary Care Unavailable QUEDEN, IVETH Primary Care Unavailable QUEDEN, IVETH Primary Care Unavailable LOWE, DUONG Referring Unavailable QUEDEN, IVETH Primary Care Unavailable QUEDEN, IVETH Attending Unavailable QUEDEN, IVETH Primary Care Unavailable QUEDEN, IVETH Primary Care Unavailable QUEDEN, IVETH Attending Unavailable SELF Referring Unavailable QUEDEN, IVETH Primary Care Unavailable ANI RAJPUT Attending Unavailable QUEDEN, IVETH Primary Care Unavailable KALESSA, DUONG Referring Unavailable QUEDEN, IVETH Primary Care Unavailable KALESSA, DUONG Referring Unavailable QUEDEN, IVETH Primary Care Unavailable KALESSA, DUONG Referring Unavailable NOHEMI, CHLESIE Attending Unavailable NOHEMI CHELSIE Admitting Unavailable QUEDEN, IVETH Primary Care Unavailable NOHEMI, CHELSIE Referring Unavailable NOHEMI CHELSIE Attending Unavailable QUEDEN, IVETH Primary Care Unavailable JOSE RODRIGUEZ Attending Unava ilZHANNA Ochoa Referring Unavailable GLORIA SMITH Attending Unavailable QUEDEN, IVETH Primary Care Unavailable QUEDEN, IVETH Primary Care Unavailable QUEDEN, IVETH Primary Care Unavailable QUEDEN, IVETH Primary Care Unavailable QUEDEN, IVETH Primary Care Unavailable QUEDEN, IVETH Primary Care Unavailable RONNIE PETTIT Attending Unavailable REGOTTI, ELIZABETH Referring Unavailable CHICORELLIIRENE Attending Unavailab le QUEDEN, IVETH A Primary Care Unavailable ALBERTSANIA Attending Unavailable ALBERT SANIA Referring Unavailable QUEDEN, IVETH A Primary Care Unavailable MADDIEORELLIIRENE Admitting Unavailab le CHICORELIRENE POLO Attending Unavailab le RONNIE PETTIT Attending Unavailable REGOTTI, ELIZABETH Referring Unavailable QUEDEN, IVETH A Primary Care Unavailable QUEDEN, IVETH A Referring Unavailable YEVGENIY CUMMINS Attending Unavailable MADDIEORELLIIRENE Referring Unavailab le QUEDEN, IVETH A Primary Care Unavailable RESHMA LYMAN Attending Unavailable IRENE RANDOLPH Referring Unavailab le DARIAN AMES Attending Unavailable QUEDEN, IVETH A Primary Care Unavailable MADDIEORELIRENE POLO Attending Unavailab le MADDIEORELIRENE POLO Referring Unavailab le CHICORELLIIRENE Attending Unavailab le QUEDEN, IVETH A Primary Care Unavailable QUEDEN, IVETH A Primary Care Unavailable DARIAN CAMPBELL Attending Unavailable SELF Referring Unavailable KALESSA, DUONG Attending Unavailable QUEDEN, IVETH A Primary Care Unavailable QUEDEN, IVETH A Referring Unavailable QUEDEN, IVETH A Primary Care Unavailable QUEDEN, IVETH A Referring Unavailable CHICORELLIIRENE Attending Unavailab ZHANNA Cabral Attending Unavailable QUEDEN, IVETH A Primary Care Unavailable QUEDEN, IVETH A Referring Unavailable HODANRONNIE Attending Unavailable REGOTTI, ELIZABETH Referring Unavailable Danny'STEPH LEBRON Attending Unavailable REGOTTI, ELIZABETH Referring Unavailable HODAN, RONNIE Attending Unavailable REGOTTI, ELIZABETH Referring Unavailable HODAN, RONNIE Attending Unavailable REGOTTI, ELIZABETH Referring Unavailable HODAN, RONNIE Attending Unavailable REGOTTI, ELIZABETH Referring Unavailable CHICORELLIIRENE Referring Unavailab le QUEDEN, IVETH A Primary Care Unavailable KALESSADUONG Referring Unavailable QUEDEN, IVETH A Primary Care Unavailable HDOANRONNIE Attending Unavailable REGOTTI, ELIZABETH Referring Unavailable HODAN, RONNIE Attending Unavailable REGOTTI, ELIZABETH Referring Unavailable CHICORELLIIRENE Attending Unavailab le YESICA BEAN Referring Unavailable QUEDEN, IVETH A Primary Care Unavailable QUEDEN, IVETH A Referring Unavailable SANIA PRICE Attending Unavailable CHICORELLIIRENE Referring Unavailab le QUEDEN, IVETH A Primary Care Unavailable CHICORELLIIRENE Referring Unavailab le REGOTTI, ELIZABETH Attending Unavailable QUEDEN, IVETH A Primary Care Unavailable QUEDEN, IVETH A Attending Unavailable QUEDEN, IVETH A Referring Unavailable QUEDEN, IVETH A Primary Care Unavailable DARIAN AMES Attending Unavailable QUEDEN, IVETH A Primary Care Unavailable TIPRETTYANODARIAN Referring Unavailable QUEDEN, IVETH A Primary Care Unavailable CHICORELLIIRENE Referring Unavailab le CHICORELLIIRENE Referring Unavailab le CHICORELLIIRENE Attending Unavailab le CHICORELLIIRENE Referring Unavailab ANAYA Mcdaniels Attending Unavailable ANAYA BARTLETT Referring Unavailable KRISTIN MOTA Attending Unavailab le HUNTER, GILMAR R Admitting Unavailable DEBBIE PICHARDO Attending Unavaila ble QUEDEN, IVETH A Primary Care Unavailable JOSÉ LUIS HAQUE Attending Unavailable ANAYA BARTLETT Attending Unavailable URIEL GREENWOOD Attending Unavailable FREDI, LAVONNE Referring Unavailable QUEDEN, IVETH A Primary Care Unavailable DEBBIE PICHARDO Referring Unavaila ble INOSARIKA RAMSEY Attending Unavailable HODAN, RONNIE Attending Unavailable REGOTTI, ELIZABETH Referring Unavailable HODAN, RONNIE Attending Unavailable REGOTTI, ELIZABETH Referring Unavailable HODAN, RONNIE Attending Unavailable REGOTTI, ELIZABETH Referring Unavailable SELF Referring Unavailable QUEDEN, IVETH A Primary Care Unavailable JAMES RIVAS Admitting Unavailable CLEM DRAPER Attending Unavailable FREDILAVONNE Consulting Unavailable FREDI, LAVONNE KHALIL Admitting Unavailable FREDI, LAVONNE KHALIL Attending Unavailable QUEDEN, IVETH A Primary Care Unavailable DUONG SANDHU Attending Unavailable QUEDEN, IVETH A Primary Care Unavailable FREDI, LAVONNE EDWARD Referring Unavailable QUEDEN, IVETH A Primary Care Unavailable FREDI, LAVONNE KHALIL Attending Unavailable FREDI, LAVONNE EDWARD Referring Unavailable QUEDEN, IVETH A Primary Care Unavailable MARGARETTE SNEED Attending Unavailable QUEDEN, IVETH A Primary Care Unavailable Allergies Allergy Classification Reported Allergen(s) Allergy Type Date of Onset Reaction(s) Facility Aspirin (2 sources) Aspirin Drug Allergy 09-24-19 19 Rash [facility] diphenhydrAMINE (2 sources) diphenhydrAMINE Drug Allergy 07-01-20 06 Mental Status Change [facility] Opioid Agonists (4 sources) Codeine Drug Allergy 07-01-20 06 Hives, Swelling [facility] Penicillins (antibiotic) (2 sources) Penicillins Drug Allergy 07-01-20 06 Hives, Swelling [facility] Promethazine (2 sources) Promethazine Drug Allergy 07-01-20 06 Intolerance [facility] Shellfish (2 sources) Shellfish Food Allergy 10-20-19 19 Anaphylaxis [facility] (3 sources) penicillin; Translations: [Penicillin -class of antibiotic- (substance)] Drug Allergy 12-23-19 17 HIVES, VOMITING [facility] Work Phone: (1 source) Adrenergic Beta-Antagonists drug allergy 03-08-20 19 heart races [facility] Work Phone: (1 source) diphenhydrAMINE Drug Allergy 03-08-20 19 nasty personality [facility] Work Phone: (1 source) Morphine Drug Allergy 03-08-20 19 throat closes [facility] Work Phone: (1 source) Penicillins (Antibiotic) drug allergy 03-08-20 19 throat closes [facility] Work Phone: (1 source) Promethazine Drug Allergy 03-08-20 19 heart race [facility] Work Phone: (20 sources) Aspirin; Translations: [aspirin] Drug Allergy 09-24-19 19 Rash [facility] (20 sources) Codeine; Translations: [codeine] Drug Allergy 07-08-20 06 Hives, Swelling [facility] (20 sources) diphenhydrAMINE; Translations: [DIPHENHYDRAMINE HCL] Drug Allergy 07-01-20 06 Mental Status Change [facility] Work Phone: (20 sources) Morphine; Translations: [morphine] Drug Allergy 07-01-20 06 Swelling [facility] Work Phone: (20 sources) Penicillin G; Translations: [PENICILLIN G] Drug Allergy 07-01-20 06 Hives, Swelling [facility] Work Phone: (20 sources) Promethazine; Translations: [PROMETHAZINE HCL] Drug Allergy 07-01-20 06 Intolerance, Mental Status Change [facility] (9 sources) Salicylic Acid; Translations: [SALICYLATES] Drug Allergy 07-01-20 06 Swelling [facility] Work Phone: (20 sources) Shellfish; Translations: [shellfish derived] Drug Allergy 10-20-19 19 Anaphylaxis [facility] Comment on above: FROM SEAFOOD ALLERGY (12 sources) Penicillins; Translations: [Penicillins] Allergy to substance 04-11-20 Rash [facility] (5 sources) Seafood Allergy to substance 04-11-20 Rash, ANAPHYLACTIC [facility] (20 sources) Salicylate product Propensity to adverse reactions 07-01-20 06 Swelling [facility] Work Phone: (10 sources) Fish Containing Products; Translations: [FISH CONTAINING PRODUCTS] Allergy to substance 01-13-20 [facility] Comment on above: FROM SEAFOOD ALLERGY (2 sources) diphenhydrAMINE; Translations: [diphenhydramine] Drug Allergy COMBATIVE [facility] (2 sources) Metoprolol; Translations: [metoprolol] Drug Allergy CHEST ON FIRE [facility] (2 sources) Promethazine; Translations: [promethazine] Drug Allergy DE [place] CRUZ VEINS [facility] (2 sources) Shellfish; Translations: [shellfish] Food allergy ANAPHYLACTIC [facility] (20 sources) Fish Drug Allergy 01-13-20 [place] (1 source) Aspirin Drug Allergy 03-06-20 [facility] (1 source) Codeine Drug Allergy 03-06-20 25 [facility] (1 source) diphenhydrAMINE Drug Allergy 03-06-20 25 [facility] (1 source) Morphine Drug Allergy 03-06-20 25 [facility] (1 source) Promethazine Drug Allergy 03-06-20 25 [facility] (1 source) Fish Containing Products Drug allergy (disorder) 03-06-20 [facility] Medications Current Medications Medication Drug Class(es) [...] 6 hours as needed for pain OXYCODONE-ACETAMINOPHEN [id number] Chencho MENDEZ BD LUER-FAHAD SYRINGE 3 mL 25 x 5/8 (13 sources) Start: 02-02-2025 BD LUER-FAHAD SYRINGE 3 mL 25 x 5/8 02/02/2025 Active celecoxib 200 mg oral capsule (7 sources) Nonsteroidal Anti-inflammatory Drug Start: 09-14-2023 take 1 capsule by mouth twice daily Celecoxib 200 mg capsule Active 200 mg PO TWICE A DAY 30 September 14, 2023 1:00am Left knee pain [...] Take one cap every 12 hours CEPHALEXIN [id number] Chencho MENDEZ dicyclomine hydrochloride 10 mg oral capsule (13 sources) Anticholinergic Start: 03-21-2025 End: 06-19-2025 take 1 capsule by mouth at bedtime dicyclomine (BENTYL) 10 mg capsule Take 1 capsule by mouth before meals and at bedtime. 360 capsule 03/21/2025 06/19/2025 Active 1 ml diphenhydrAMINE hydrochloride 50 mg/ml injection (20 sources) Histamine-1 Receptor Antagonist Start: 02-02-2025 inject 25 mg by intramuscular injection twice daily diphenhydrAMINE (BENADRYL) 50 mg/mL injection Inject 25 mg intramuscularly two times a day. Takes for migraines 02/02/2025 Active Start: 02-02-2025 diphenhydrAMIN E (BENADRYL) 50 mg/mL injection 02/02/2025 Active Start: 09-12-2024 End: 10-12-2024 inject 50 mg by intramuscular injection every [...] capsule (20 sources) Provitamin D2 Compound Start: 024 End: 025 take 1 capsule by mouth every week ergocalciferol 50,000 unit capsule (VITAMIN D2, DRISDOL) Indications: Vitamin D deficiency Take 1 capsule by mouth one time a week. 12 capsule 04/11/2025 07/10/2025 Active escitalopram 20 mg oral tablet (14 sources) Serotonin Reuptake Inhibitor Start: escitalopram 20 mg oral tablet Dose : 20 mg = 1 tab(s), Oral, qDay, # 90 tab(s), 0 Refill(s), Pharmacy: [id number], Depressed state, 153, cm, 10/30/20 15:10:00 EDT, Height, kg, 10/30/20 15:10:00 EDT, Dosing Weight Start Date: 10/30/20 Status: Ordered Start: 09-28-2020 End: 03-18-2021 take 1 tablet by mouth once daily Escitalopram Oxalate 10 MG tablet Discontinued 10 mg PO DAILY September 28, 2020 1:00am March 18, 2021 8:06am FLUoxetine 40 mg oral capsule (20 sources) Serotonin Reuptake Inhibitor Start: 08-23-2024 End: 02-19-2025 take 1 capsule by mouth once daily FLUoxetine (PROZAC) 40 mg capsule Indications: Mood disorder , PTSD (post-traumatic stress disorder) Take 1 capsule by mouth once daily. 90 capsule 1 08/23/2024 Active Start: 07-15-2024 End: 01-11-2025 take 1 capsule [...] daily. 90 capsule 1 06/22/2024 07/15/2024 Discontinued ketorolac tromethamine 10 mg oral tablet (4 sources) Nonsteroidal Anti-inflammatory Drug, Cyclooxygenase Inhibitor Start: 03-10-2025 End: 03-15-2025 take 1 tablet by mouth every six hours as needed for pain keTORolac (TORADOL) 10 mg tablet Indications: Ureteral calculi Take 1 tablet by mouth every 6 hours as needed for pain for up to 5 days. 20 tablet 03/10/2025 03/15/2025 Active Start: 09-25-2022 End: 09-25-2022 keTORolac 60 mg injection (T ORADOL) Start: 05-06-2022 End: 05-06-2022 keTORolac 60 mg injection (T ORADOL) lamoTRIgine 100 mg oral tablet (20 sources) Mood Stabilizer, Anti-epileptic Agent Start: 08-10-2024 End: 02-21-2025 take 1 tablet by mouth twice daily lamoTRIgine (LAMICTAL) 100 mg tablet Take 1 tablet by mouth two times a day. To start on or after 08/10/2024, after completing titration schedule. 180 tablet 1 08/25/2024 Active Start: 06-22-2024 End: 08-25-2024 lamoTRIgine (LAMICTAL) 25 [...] Start: 03-18-2021 take 1 tablet by brady three times daily Lamotrigine 200 mg tablet extended release 24hr Active 200 mg PO THREE TIMES A DAY March 18, 2021 12:00am Start: 03-08-2019 take 1 tablet by brady once daily LAMICTAL XR 200 MG [id number] take as directed by mouth 1800mg per day LAMOTRIGINE [id number] Alberto Matamoros MD Start: 12-16-2016 LAMICTAL XR XR 24H-TAB as directed LAMOTRIGINE TC01G-XMP [id number] Deja Sexton LPN Start: 03-09-2014 take 2 tablets by [facility] three times daily LaMICtal XR 200 mg [...] Comment on above: Take 2 tablets by [facility] twice daily. Take 1 tablet by [facility] every morning. Take 2 tablets by [facility] every evening. levothyroxine sodium 0.088 mg oral tablet (20 sources) l-Thyroxine Start: 12-12-2024 End: 03-12-2025 levothyroxine (SYNTHROID) 88 mcg tablet Indications: Hypothyroidism, unspecified type Take 1 tablet by mouth once daily. Take 1 1/2 tablets on Thursday 90 tablet 1 03/12/2025 Active Start: 06-22-2024 End: 12-12-2024 take 1 tablet [...] Take 1 tablet by brady th once daily. Take on empty stomach. For Thyroid. Take 1 tablet by brady th once daily. Take on empty stomach. For Thyroid meloxicam 15 mg oral tablet (5 sources) Nonsteroidal Anti-inflammatory Drug Start: 09-10-19 End: 03-29-20 meloxicam 15 mg oral tablet 0 Refill(s) Start Date: 09/10/20 Status: Ordered Comment on above: Take 1 tablet by brady th once daily as needed for pain (with food). mineral oil 0.14 mg/mg / petrolatum 0.749 mg/mg / phenylephrine hydrochloride 0.0025 mg/mg rectal ointment (18 sources) alpha-1 Adrenergic Agonist Start: 03-08-20 hemorrhoid ointment (PREPARATION H) 0.25-14-74.9 % rectal ointment by RECTAL route as needed (For hemorrhoid pain and bleeding). 56 g 03/08/2025 Active mirtazapine 7.5 mg oral tablet (20 sources) Start: 08-23-19 End: 06-04-20 take 1 tablet by mouth once daily at bedtime Mirtazapine (REMERON) 7.5 mg tablet Indications: Mood disorder Take 1 tablet by mouth daily at bedtime. 90 tablet 1 12/06/2024 06/04/2025 Active ondansetron 4 mg oral tablet (20 sources) Serotonin-3 Receptor Antagonist Start: 03-08-20 take 1 tablet by mouth every six hours as needed ondansetron (ZOFRAN) 4 mg tablet Take 1 tablet by mouth every 6 hours as needed for nausea/vomiting. 12 tablet 03/08/2025 Active Start: 04-24-2019 End: 09-13-2019 take 1 tablet [...] mouth daily before breakfast. 90 tablet 12/06/2024 Active pindolol 5 mg oral tablet (3 sources) beta-Adrenergic Red Start: 03-19-2023 pindolol 5 mg oral tablet Dose : 5 mg = 1 tab(s), Oral, BID, # 60 tab(s), 3 Refill(s), Pharmacy: [facility], 155, cm, 03/19/23 14:38:00 EDT, Height, kg, 03/19/23 14:38:00 EDT, Dosing Weight Start Date: 03/19/23 Status: Ordered Start: 12-16-2016 PINDOLOL TABS as directed PINDOLOL TABS [id number] Deja Sexton LPN polyethylene glycol 3350 080851 mg / potassium chloride 2970 mg / sodium bicarbonate 6740 mg / sodium chloride 5860 mg / sodium sulfate 67051 mg powder for oral solution (1 source) Osmotic Laxative Start: 12-07-2024 End: 12-07-2024 peg 3350-Electrolytes (GOLYTELY) 236-22.74-6.74 -5.86 gram suspension Indications: Screening for colon cancer Take 4,000 mL by mouth one time only for 1 dose. Refer to printed prep instructions from your provider. 4000 mL 12/07/2024 12/07/2024 Active pregabalin 50 mg oral capsule (20 sources) Start: 02-20-2025 End: 05-21-2025 take 1 capsule by mouth three times daily pregabalin (LYRICA) 50 mg capsule Indications: Chronic pain of left knee Take 1 capsule by mouth three times a day for 90 days. 90 capsule 2 02/20/2025 05/21/2025 Active Start: 01-10-2025 End: 02-20-2025 take 1 capsule by mouth three times daily pregabalin (LYRICA) 25 mg capsule Indications: Chronic pain of left knee Take 1 capsule by mouth three times a day for 30 days. 90 capsule 01/10/2025 02/20/2025 Discontinued rimegepant 75 mg disintegrating oral tablet (14 sources) Start: 10-30-2020 Rimegepant (Nurtec Odt) 75 mg Tablet,Disintegrating Active 75 mg PO Q48H December 16, 2020 12:00am sertraline 50 mg oral tablet (10 sources) Serotonin Reuptake Inhibitor Start: 03-27-2022 take 1 tablet by mouth once daily Sertraline (Zoloft) 50 mg Tablet Active 50 mg PO DAILY March 27, 2022 12:00am sucralfate 100 mg/ml oral suspension (13 sources) Aluminum Complex Start: 03-21-2025 take 10 mL by mouth at bedtime sucralfate (CARAFATE) 100 mg/mL suspension Take 10 mL by mouth before meals and at bedtime. 1200 mL 03/21/2025 Active tamsulosin hydrochloride 0.4 mg oral capsule (20 sources) alpha-Adrenerg ic Red Start: 03-08-2025 End: 04-18-2025 take 1 capsule by mouth once daily tamsulosin (FLOMAX) 0.4 mg Take 1 capsule by mouth once daily for 7 days. 7 capsule 04/11/2025 Active traMADol hydrochloride 50 mg oral tablet (7 [...] (QULIPTA) 60 mg tablet (20 sources) Start: 08-25-2024 take 1 tablet by mouth once daily [...] on above: Take 1 capsule by mo [facility] one time a week. Take 1 capsule by mo [facility] one time a week for 12 doses. DO NOT REFILL cyclobenzaprine hydrochloride 10 mg oral tablet (11 sources) Muscle Relaxant Start: 08-24-19 End: 04-04-20 take 1 tablet by mouth once daily at bedtime cyclobenzaprine (FLEXERIL) 10 mg tablet Indications: Acute bilateral low back pain with bilateral sciatica Take 1 tablet by mouth daily at bedtime. 9 tablet 08/24/2023 04/04/2024 Discontinued (Course of therapy completed) 1 ml fentaNYL 0.05 mg/ml injection (2 sources) Opioid Agonist Start: 10-04-19 End: 10-05-19 50 mcg, INTRAVENOUS, EVERY 10 MINUTES NEEDED, 4 doses, Starting on Thu10/04/24 at 1032, Until Thu10/05/24 at 0302, Moderate Pain (4-6) - Parenteral, Severe Pain (>/=7) - Parenteral, FIRST LINE THERAPY, Every 10 minutes., Recovery or Phase I (only) Start: 10-04-2024 End: 10-04-2024 50 mcg, INTRAVENOUS, ONCE, 1 dose, On Thu10/04/24 at 0900, for block, Preprocedure FREMANEZUMAB-VFRM (1 source) Start: 03-08-2019 AJOVY 225 MG/1 .5ML SOSY give injection to self 1 x month FREMANEZUMAB-VFRM [id number] Alberto Matamoros MD lidocaine hydrochloride 0.02 mg/mg topical gel (20 [...] Thu10/04/24 at 0830, midazolam for block, Preprocedure naproxen 500 mg oral tablet (12 sources) Nonsteroidal Anti-inflammatory Drug Start: 04-24-2019 End: 09-13-2019 take 1 tablet by mouth twice daily Naproxen 500 MG tablet Discontinued 500 mg PO TWICE A DAY April 24, 2019 12:00am September 13, 2019 2:42pm oxyCODONE hydrochloride 5 mg oral tablet (7 sources) Opioid Agonist Start: 03-30-2025 End: 04-02-2025 take 1 tablet by mouth every six hours as needed for pain oxyCODONE IR (ROXICODONE) 5 mg immediate release tablet Indications: Hydronephrosis with urinary obstruction due to ureteral calculus Take 1 tablet by mouth every 6 hours as needed for pain for up to 3 days. 12 tablet 03/30/2025 04/02/2025 Start: 03-08-2025 End: 03-11-2025 take 1 tablet by mouth every six hours as needed for pain oxyCODONE IR (ROXICODONE) 5 mg immediate release tablet Indications: Hydronephrosis with urinary obstruction due to renal calculus Take 1 tablet by mouth every 6 hours as needed for pain for up to 3 days. 6 tablet 03/08/2025 03/11/2025 phenazopyridine hydrochloride 200 mg oral tablet (4 sources) Start: 03-08-2025 End: 03-13-2025 take 1 tablet by mouth every eight hours as needed phenazopyridine (PYRIDIUM) 200 mg tablet Take 1 tablet by mouth three times a day as needed for up to 5 days. 15 tablet 03/08/2025 03/13/2025 predniSONE 10 mg oral tablet (3 sources) [...] tab daily for 3 days with food. 72 hr scopolamine 0.0139 mg/hr transdermal system [...] 23 x 1 (20 sources) Start: 08-30-2024 End: 03-21-2025 Syringe with Needle, Disp, 3 mL 23 x 1 Indications: Intractable chronic migraine without aura and without status migrainosus 1 Each as directed. 4 Each 08/30/2024 03/21/2025 Discontinued Start: 08-30-2024 Syringe with N eedle, Disp, [...] migrainosus 1 Each as needed. 4 Each 5 09/30/2021 08/13/2022 Discontinued (Course of therapy completed) Start: 09-30-2021 Syringe with N eedle, Disp, 3 mL 23 x 1 Indications: Intractable chronic migraine without aura and without status migrainosus 1 Each as needed. 4 Each 5 09/30/2021 Active Comment on above: 1 Each [...] VERAPAMIL HCL TABS (1 source) Calcium Channel Red Start: 12-16-2016 VERAPAMIL HCL TABS as directed VERAPAMIL HCL TABS [id number] Deja Sexton LPN zonisamide 100 mg oral [...] [Malingerer [conscious simulation]] 10-12-2023 Episodic Anxiety disorders (20 sources) Generalized anxiety disorder; Translations: [Generalized anxiety disorder] Onset: 5 01-10-2025 Chronic Asthma (20 sources) Asthma; Translations: [Unspecified asthma, uncomplicated] Onset: 7 01-05-2018 Chronic Biliary tract disease (11 sources) Cholelithiasis without obstruction; Translations: [Calculus of gallbladder without cholecystitis without obstruction] Onset: 5 03-31-2025 Episodic Calculus of urinary tract (20 sources) Kidney stone; Translations: [Calculus of kidney] Onset: 6 Resolved: 8 12-26-2017 Episodic Cardiac dysrhythmias (1 source) Palpitations; Translations: [Palpitations] Episodic Delirium, dementia, and amnestic and other cognitive disorders (12 sources) Postconcussion syndrome; Translations: [Postconcussional syndrome] 05-04-2019 Chronic Diabetes mellitus without complication (1 source) Hyperglycemia; Translations: [Hyperglycemia, unspecified] 04-02-2025 Episodic E Codes: Fall (9 sources) Fall; Translations: [Unspecified fall, initial encounter] 01-12-2023 Episodic Ectopic (2 sources) Tubal 05-02-2015 Episodic Epilepsy; convulsions (3 sources) Seizure disorder; Translations: [Epilepsy, unspecified, not intractable, without status epilepticus] Chronic Esophageal disorders (1 source) Gastro-esophageal reflux disease with esophagitis; Translations: [Gastroesophageal reflux disease with esophagitis, unspecified whether hemorrhage] 03-21-2025 Chronic Esophageal disorders (1 source) Esophageal disorders; Translations: [Gastroesophageal reflux disease with esophagitis, unspecified whether hemorrhage] Onset: 5 Essential hypertension (20 sources) Essential hypertension; Translations: [Essential (primary) hypertension] Onset: 8 01-01-2018 Chronic Gastritis and duodenitis (6 sources) Chronic superficial gastritis; Translations: [Chronic superficial gastritis without bleeding] Onset: 5 03-21-2025 Chronic Headache; including migraine (20 sources) Migraine; Translations: [Migraine, unspecified, not intractable, without status migrainosus] Onset: 3 02-01-2013 Chronic Headache; including migraine (1 source) Medication overuse headache; Translations: [Drug-induced headache, not elsewhere classified, not intractable] Episodic Heart valve disorders (20 sources) Non-rheumatic mitral valve prolapse; Translations: [Nonrheumatic mitral (valve) prolapse] Onset: 7 12-24-2017 Chronic Hemorrhoids (15 sources) Internal hemorrhoids; Translations: [Other hemorrhoids] Onset: 5 03-21-2025 Episodic Joint disorders and dislocations; trauma-related (1 source) Chondromalacia of left patella; Translations: [Chondromalacia patellae, left knee] 03-30-2024 Chronic Malaise and fatigue (10 sources) [...] Translations: [Depression, unspecified depression type] Onset: 4 Nausea and vomiting (6 sources) Nausea; Translations: [Nausea] Onset: 5 03-21-2025 Episodic Neoplasms of unspecified nature or uncertain behavior (2 sources) Intracranial tumor 07-08-2014 Chronic Nonspecific chest pain (1 source) Chest pain; Translations: [Chest pain, unspecified] Episodic Nutritional deficiencies (17 sources) Vitamin D deficiency; Translations: [Vitamin D [...] right hand] Chronic Other connective tissue disease (2 sources) Pain [...] tissue disorders] 02-28-2025 Episodic Other gastrointestinal disorders (17 sources) Irritable bowel syndrome with diarrhea; Translations: [Irritable bowel syndrome with diarrhea] Onset: 5 03-21-2025 Chronic Other gastrointestinal disorders (2 sources) Irritable bowel syndrome with diarrhea; Translations: [Irritable bowel syndrome with diarrhea] Onset: 5 Chronic Other gastrointestinal disorders (5 sources) Dysphagia; Translations: [Dysphagia, unspecified] 12-07-2024 Episodic Other gastrointestinal disorders (2 sources) Other dysphagia; Translations: [Other dysphagia] Onset: 5 Episodic Other gastrointestinal disorders (1 source) Dysphagia, pharyngoesophageal phase; Translations: [Pharyngoesophageal dysphagia] Onset: 5 Episodic Other gastrointestinal disorders (2 sources) Dysphagia, unspecified; Translations: [Dysphagia, unspecified type] Onset: 5 Episodic Other injuries and conditions due to external causes (12 sources) Avulsion of skin; Translations: [Other injury of unspecified body region, initial encounter] 11-16-2015 Episodic Other liver diseases (1 source) Alkaline phosphatase raised; Translations: [Abnormal levels of other serum enzymes] 12-06-2024 Episodic Other lower respiratory disease (12 sources) Dyspnea; Translations: [Dyspnea, unspecified] 03-31-2021 Episodic Other lower respiratory disease (3 sources) Hemoptysis; Translations: [Hemoptysis] 12-07-2024 Episodic Other nervous system disorders (1 source) Chronic pain; Translations: [Other chronic pain] Chronic Other nervous system disorders (3 sources) Chronic pain syndrome; Translations: [Chronic pain syndrome] 01-10-2025 Chronic Other nervous system disorders (3 sources) Complex regional pain syndrome type I of left lower limb; Translations: [Complex regional pain syndrome I of left lower limb] 02-28-2025 Chronic Other nervous system disorders (2 sources) Other chronic pain; Translations: [Chronic pain of left knee] Onset: 4 Chronic Other nervous system disorders (1 source) Chronic pain syndrome; Translations: [Chronic pain syndrome] Onset: 5 Chronic Other nervous system disorders (1 source) Complex regional pain syndrome I of left lower limb; Translations: [Complex regional pain syndrome type 1 of left lower extremity] Onset: 5 Chronic Other nervous system disorders [...] Translations: [Arthrofibrosis of knee joint, left] Onset: 5 Chronic Other non-traumatic joint disorders (11 sources) Pain in wrist; Translations: [Pain in right wrist] 12-23-2021 Episodic Other non-traumatic joint disorders (3 sources) Acute ankle pain; Translations: [Pain in right ankle and joints of right foot] 03-10-2023 Episodic Other nutritional; endocrine; and metabolic disorders (20 sources) Obese class II; Translations: [Obesity, Class II, BMI 35-39.9] Onset: 5 03-06-2025 Chronic Other nutritional; endocrine; and metabolic disorders (2 sources) Body mass index 25-29 - overweight; Translations: [Overweight] 08-02-2024 Episodic Other upper respiratory infections (2 sources) Sore throat symptom; Translations: [Acute pharyngitis, unspecified] 04-28-2023 Episodic Residual codes; unclassified (2 sources) Insomnia 05-25-2018 Episodic Residual codes; unclassified (1 source) Chill; Translations: [Chills (without fever)] 02-27-2024 Episodic Residual codes; unclassified (3 sources) History of arthroscopy of knee joint; Translations: [Other specified postprocedural states] 04-27-2024 Episodic Spondylosis; intervertebral disc disorders; other back problems (1 source) Degeneration of lumbar intervertebral disc; Translations: [Other intervertebral disc degeneration, lumbar region] 09-28-2023 Chronic Spondylosis; intervertebral disc disorders; other back problems (10 sources) Chronic neck pain; Translations: [Cervicalgia] Episodic Superficial injury; contusion (20 sources) Contusion of hand; Translations: [Contusion of left hand, initial encounter] 12-17-2020 Episodic Thyroid disorders (20 sources) Acquired hypothyroidism; Translations: [Hypothyroidism, unspecified] Onset: 4 Chronic Unclassified (11 sources) Transformed migraine; Translations: [Chronic migraine] 09-28-2020 Unclassified (12 sources) No history of clinical finding in subject; Translations: [No significant past medical history] 04-24-2019 Unclassified (5 sources) Chronic pain of left knee 09-28-2024 Unclassified (7 sources) Patient encounter status 12-08-2024 Unclassified (1 source) Left knee pain, unspecified chronicity 01-11-2025 Unclassified (2 sources) Autogenerated Problem Onset: 5 03-19-2025 Unclassified (1 source) Chronic migraine with aura [...] pain] Onset: 9 Resolved: 8 12-24-2017 Episodic Epilepsy; convulsions (20 sources) Seizure; Translations: [Unspecified convulsions] Onset: 3 Resolved: 8 06-02-2014 Episodic Gastrointestinal hemorrhage (20 sources) Gastrointestinal hemorrhage; Translations: [Hemorrhage of anus and rectum] Onset: 5 12-07-2024 Episodic Genitourinary symptoms and ill-defined conditions (20 sources) Cecy hematuria; Translations: [Gross hematuria] Onset: 9 Resolved: 8 12-24-2017 Episodic Immunizations and screening for infectious disease (16 sources) Contact with or exposure to other viral diseases; Translations: [Exposure to COVID-19 virus] Onset: 5 Episodic Intracranial injury (20 sources) History of concussion injury of brain; Translations: [Personal history of traumatic brain injury] Onset: 5 05-03-2019 Episodic Joint disorders and dislocations; trauma-related (20 sources) Tear of medial meniscus of knee; Translations: [Other tear of medial meniscus, current injury, left knee, initial encounter] Onset: 4 10-15-2023 Episodic Other aftercare (1 source) Other detention (current) drug therapy; Translations: [Medication management] Onset: 5 Episodic Other connective tissue disease (1 source) Pain in left lower leg; Translations: [Pain of left calf] Onset: 4 Episodic Other diseases of bladder and urethra (20 sources) Overactive bladder; Translations: [Other neuromuscular dysfunction of bladder] Onset: 9 Resolved: 8 12-24-2017 Chronic Other diseases of kidney and ureters (20 sources) Hydronephrosis; Translations: [Unspecified hydronephrosis] Onset: 8 Resolved: 8 12-24-2017 Episodic Other diseases of kidney and ureters (20 sources) Hydronephrosis with renal and ureteral calculous obstruction; Translations: [Hydronephrosis] Onset: 8 03-06-2025 Episodic Other liver diseases (2 sources) Abnormal levels of other serum enzymes; Translations: [Elevated alkaline phosphatase level] Onset: 5 Episodic Other lower respiratory disease (2 sources) Hemoptysis; Translations: [Coughing up blood] Onset: 5 Episodic Other nervous system disorders (1 source) Other acute postprocedural pain; Translations: [Postoperative pain] Onset: 4 Episodic Other non-traumatic joint disorders (20 sources) Pain in left knee; Translations: [Pain in joint, lower leg] Onset: 4 09-14-2023 Episodic Other non-traumatic joint disorders (20 sources) Pain in lower limb; Translations: [Pain in unspecified knee] Onset: 3 Resolved: 8 12-24-2017 Episodic Other nutritional; endocrine; and metabolic disorders (1 source) Overweight; Translations: [Overweight (BMI 25.0-29.9)] Onset: 5 Episodic Other screening for suspected conditions (not mental disorders or infectious disease) (20 sources) Patient encounter status; Translations: [Encounter for screening for malignant neoplasm of colon] Onset: 5 12-07-2024 Episodic Sprains and strains (20 sources) Sprain of ankle; Translations: [Sprain of unspecified ligament of right ankle, initial encounter] Onset: 8 01-12-2023 Episodic Suicide and intentional self-inflicted injury (2 sources) Suicidal thoughts; Translations: [Suicidal ideations] Onset: 5 01-10-2025 Episodic Unclassified (1 source) Problem Unclassified (12 sources) Contusion of scalp, initial encounter 04-25-2019 Results Test Name Value Interpretation Reference Range Facility [facility] 06-20-2025 [facility] Telephone ([id number]) SRI CHACON ([id number]) 1975 F Date Time Provider Department 06/20/25 DUONG JEFFERS [id number] During your visit today, we recorded the following information about you: Dasha Villarreal MA 06/20/2025 12:22 PM Signed Please advise on pts KUB results. Thank you, TATUM De Jesus Melissa, APRN.COMMUNITY HEALTH PLANNING DIRECTOR 06/20/2025 1:11 PM Signed Can notify that recent KUB showed stones in the RIGHT kidney but nothing seen passing. LEFT kidney was also clear of stones. Hope she is feeling well Thanks Duong Jeffers APRN.COMMUNITY HEALTH PLANNING DIRECTOR Allergies As of Date: 06/20/2025 Noted Allergy Reaction CODEINE 07/08/2006 4 - Hives 7 - Swelling Comments: swelling-airway/face MORPHINE 07/01/2006 7 - Swelling PENICILLIN G 07/01/2006 4 - Hives 7 - Swelling SHELLFISH DERIVED 10/19/2018 10 - Anaphylaxis BENADRYL (DIPHENHYDRAMINE HCL) 07/01/2006 1 - Mental Status Change PHENERGAN (PROMETHAZINE HCL) 07/01/2006 1 - Mental Status Change ASPIRIN 09/24/2018 2 - Rash Date Reviewed: 05/30/2025 Reviewed by: Thao Uriarte, RN - Fully Assessed Prescriptions as of 06/20/2025 - levothyroxine (SYNTHROID) 100 mcg tablet Take 1 tablet by mouth once daily. Take 1 1/2 tablets on Thursday - ergocalciferol 50,000 unit capsule (VITAMIN D2, DRISDOL) Take 1 capsule by mouth one time a week. - sucralfate (CARAFATE) 100 mg/mL suspension Take 10 mL by mouth before meals and at bedtime. - pantoprazole DR (PROTONIX) 20 mg tablet Take 1 tablet by mouth daily before breakfast. - lamoTRIgine (LAMICTAL) 100 mg tablet Take 1 tablet by mouth two times a day. To start on or after 08/10/2024, after completing titration schedule. Problem List As Of Date 06/20/2025 Noted Resolved Calculus of kidney [N20.0] 07/03/2006 12/26/2017 Asthma [J45.909] 07/17/2007 Sprain of right ankle [S93.401A] 10/18/2007 Renal colic [N23] 01/21/2008 12/24/2017 Hydronephrosis with urinary obstruction due to *03/16/2008 Right ureteral calculus [N20.1] 03/16/2008 Gross hematuria [R31.0] 05/02/2009 12/24/2017 Microscopic hematuria [R31.29] 05/02/2009 12/24/2017 Right flank pain [R10.A1] 05/02/2009 Hyperactivity of bladder [N31.8] 05/02/2009 12/24/2017 Renal calculus, right [N20.0] 07/31/2010 12/24/2017 Pelvic pain in female [R10.20] 08/27/2011 12/24/2017 Pain in joint, lower leg [...] Arthrofibrosis of knee joint, left [M24.662] 10/05/2024 Major depressive disorder, recurrent severe wit*02/24/2025 DARREL (generalized anxiety disorder) [F41.1] 02/24/2025 Chronic post-traumatic stress disorder (PTSD) [*02/24/2025 Obesity, Class II, BMI 35-39.9 [E66.812] 03/06/2025 Rectal bleeding [K62.5] 03/06/2025 HTN (hypertension) [I10] 03/06/2025 Chronic abdominal pain [R10.9, G89.29] 03/21/2025 Hemorrhoids, internal [K64.8] 03/21/2025 Irritable bowel syndrome with diarrhea [K58.0] 03/21/2025 Preop testing [Z01.818] 03/27/2025 Vitamin D deficiency [E55.9] 03/30/2025 Esophageal stricture [K22.2] 05/10/2025 Encounter Status:Closed by DASHA VILLARREAL on 06/20/25 [facility] T4 Free SerPl-mCncon 025 Free T4 [Mass/Vol] 0.8 ng/dL Low 0.9-1.7 [facility] Comment on above: Order Comment: Speci men Type: BLOOD SPECIMENOrdering Facility: [facility] Address: [address] [place] [address] Performed By: #### T PSYCHIATRIC, 3024-7 ####[facility] LABCLIA [id number] [place] [address] [place] TSH W/REFLEX FT4on 5 TSH Qn 4.400 m[IU]/L High 0.270-4.200 [facility] Comment on above: Order Comment: Speci men Type: BLOOD SPECIMENOrdering Facility: [facility] Address: [address] [place] [address] Performed By: #### T PSYCHIATRIC, 3024-7 ####[facility] LABCLIA [id number] [place] [address] [place] XR ABDOMEN 1V SUPINEon 06-13 XR ABDOMEN 1V SUPINE Normal [facility] CNCOon 06-01-2025 CNCO Letter Text Normal [facility] ANES POSTPROC EVALon 025 ANES POSTPROC EVAL HNO ID: [id number] Author: IRAIDA SANTOYO MD Service: Anesthesiology Author Type: Anesthesiologist Type: Anesthesia Postprocedure Evaluation Filed: 05/30/2025 14:47 Note Text: POST ANESTHESIA EVALUATION NOTE : 1975 Procedure Summary Date: 05/30/25 Room / Location: [facility] OR OR Anesthesia Start: 817 Anesthesia Stop: 939 Procedure: LAPAROSCOPIC CHOLECYSTECTOMY Diagnosis: Cholecystitis Dyskinesia of gallbladder (Cholecystitis [K81.9]) (Dyskinesia of gallbladder [K82.8]) Surgeons: Chelsie Peralta MD Responsible Provider: Iraida Santoyo MD Anesthesia Type: general ASA Status: 3 Anesthesia Type: general Airway Type: ETT Last Vitals Vitals Value Taken Time BP 127/82 05/30/25 11:30 Temp 36.1 ?C (97 ?F) 05/30/25 11:30 Pulse 81 05/30/25 11:42 Resp 20 05/30/25 11:42 SpO2 94 % 05/30/25 11:41 Vitals shown include unfiled device data. Post Anesthesia Patient Status Patient Evaluation: PACU. PACU/ICU Patient Condition: stable. Anticipated Disposition: phase 2 then home. Neurological Status: aware and responsive. Pulmonary Status: breathing comfortably on room air Airway Control: returned to baseline unsupported. Cardiovascular Status: stable. Pain Management: clinically adequate Postoperative Hydration: acceptable. Intraoperative Events: no significant anesthesia events Recommendation: continue current plan of care. Other Remarks: Uncomplicated anesthetic, patient tolerated procedure well. Anesthesia Observations No Documentation SIGNATURE: Iraida Santoyo MD PATIENT NAME: Sri Chacon DATE: May 30, 2025 TIME: 2:46 PM CSN: [id number] Normal [facility] ANES PRE-OPon 05-30-2025 ANES PRE-OP HNO ID: [id number] Author: IRAIDA SANTOYO MD Service: Anesthesiology Author Type: Anesthesiologist Type: Anesthesia Preprocedure Evaluation Filed: 05/30/2025 07:55 Note Text: ANESTHESIOLOGY DAY OF SURGERY NOTE : 1975 Procedure Information Date/Time: 05/30/25 0800 Procedure: LAPAROSCOPIC CHOLECYSTECTOMY Location: [facility] OR OR Surgeons: Chelsie Peralta MD Estimated body mass index is 36.86 kg/m? as calculated from the following: Height as of 05/11/25: 154.9 cm (5' 0.98). Weight as of 05/11/25: 88.5 kg (195 lb). Most recent hematocrit and potassium results: Hematocrit 43.3 03/30/2025 Potassium 4.5 03/30/2025 Relevant Problems CARDIO (+) Essential hypertension (+) HTN (hypertension) (+) Hemorrhoids, internal (+) Migraine (+) Nonrheumatic mitral (valve) prolapse ENDO (+) Hypothyroidism -RENAL (+) Hydronephrosis with urinary obstruction due to ureteral calculus NEURO-PSYCH (+) Migraine (+) Other convulsions PULMONARY (+) Asthma (HCC) I - PHYSICAL EVALUATION AIRWAY Patient intubated: No. Tracheostomy tube not present Mallampati: III. TM distance: >3 FB. Neck ROM: full ROM without neurological symptoms. Mouth openin FB. Short neck: no. Thick neck: no DENTAL Dental findings: poor dentition. Dentures, upper: partial. II - ANESTHESIA PLAN ASA Score: 3 Anesthetic Plan: general Airway type: ETT NPO Status: adequate Monitoring Plan Monitoring plan: standard ASA. Informed Consent Anesthetic risks, benefits, alternatives, personnel and consent discussed: yes. Patient / Responsible [employer] Party agrees to proceed: yes Patient / Surrogate agrees to blood products: Yes Vitals Value Taken Time BP 130/88 05/30/25 07:13 Pulse 77 05/30/25 07:14 Resp Temp 36.6 ?C (97.9 ?F) 05/30/25 07:14 SpO2 97 % 05/30/25 07:14 Vitals shown include unfiled device data. Facility-Administered Medications as of 05/30/2025 Medication Dose Route Frequency enoxaparin 40 mg injection (LOVENOX) 40 mg SUBCUTANEOUS ONCE dextrose 10% iv bolus 12.5 g INTRAVENOUS PRN Or glucagon 0.5-1 mg injection 0.5-1 mg INTRAMUSCULAR PRN lidocaine (PF) 10 mg/mL (1 %) 1-2 mg injection (XYLOCAINE) 0.1-0.2 mL INTRADERMAL PRN lactated ringers iv infusion 5-30 mL/hr INTRAVENOUS CONTINUOUS NaCl 0.9% iv flush bag 20 mL INTRAVENOUS PRN acetaminophen 975 mg tab(s) (TYLENOL) 975 mg ORAL Pre-Op Once gabapentin 300 mg cap(s) (NEURONTIN) 300 mg ORAL Pre-Op Once clindamycin iv piggyback 900 mg in D5W 50 mL (CLEOCIN) 900 mg INTRAVENOUS Pre-Op Once Outpatient Medications as of 05/30/2025 Medication Sig Mirtazapine (REMERON) 7.5 mg tablet Take 7.5 mg by mouth daily at bedtime. dicyclomine (BENTYL) 10 mg capsule Take 1 capsule by mouth before meals and at bedtime. sucralfate (CARAFATE) 100 mg/mL suspension Take 10 mL by mouth before meals and at bedtime. levothyroxine (SYNTHROID) 88 mcg tablet Take 1 tablet by mouth once daily. Take 1 1/2 tablets on Thursday pantoprazole DR (PROTONIX) 20 mg tablet Take 1 tablet by mouth daily before breakfast. lamoTRIgine (LAMICTAL) 100 mg tablet Take 1 tablet by mouth two times a day. To start on or after 08/10/2024, after completing titration schedule. zavegepant (ZAVZPRET) 10 mg/actuation nasal spray 1 spray by INTRANASAL route as needed (at migaine onset. 1 spray in 1 nostril. Max dose is 1 spray in 24 hrs.). ergocalciferol 50,000 unit capsule (VITAMIN D2, DRISDOL) Take 1 capsule by mouth one time a week. I have interviewed and examined the patient. I have reviewed the medical record and/or the pre-anesthesia evaluation, pertinent labs, and test results. This contains updated information obtained within 48 hours of Surgery/Procedure. SIGNATURE: Iraida Santoyo MD PATIENT NAME: Sri Chacon DATE: May 30, 2025 TIME: 7:17 AM CSN: [id number] [facility] OPERATIVE NOon 05-30-2025 OPERATIVE NO HNO ID: [id number] Author: CHELSIE PERALTA MD Service: General Surgery Author Type: Resident Type: Operative Report Filed: 06/03/2025 11:31 Note Text: Attestation signed by Chelsie Peralta MD at 06/03/2025 11:31 AM I was present and scrubbed for the critical portions of this case. Marbella Peralta MD [facility] Surgeon OPERATIVE REPORT LOG ID: [id number] Surgery/Procedure Date: 05/30/2025 Incision/Procedure Start Time: 8:44 AM Incision Close/Procedure End Time: 9:22 AM Surgeon(s)/Proceduralis t(s) and Manager Heart(s): Surgeons and Role: * Chelsie Peralta MD - Primary * Gela Pearson DO - Resident - Assisting No Additional Staff Procedure(s): Procedure(s): LAPAROSCOPIC CHOLECYSTECTOMY Anesthesia: General Findings: Normal appearing gallbladder Indication for Procedure: Sri Chacon is a 50 year old who presented with biliary dyskinesia. History, exam, laboratory evaluation and imaging were notable for cholelithiasis. The risks, benefits and alternatives to the procedure with discussed with the patient.. The risks discussed include but are not limited to potential complications of anesthesia, infection, bleeding, nerve injury, device or staple failure, CBD injury, postoperative pain, need for a blood transfusion, infection, operative site hernia, injury to adjacent structures, need for additional operation or procedure and other factors. All questions were answered and consent was obtained from patient. Description of Procedure: After a pre-operative huddle the patient was taken to the operating room. After induction of General anesthesia, administration/confirma tion of mcihael-operative antibiotics and VTE prophylaxis, the patient was positioned, prepped and draped in usual sterile fashion and the surgical safety checklist was performed. We opted for [facility] entry at [facility]. A 5mm incision was made in the left upper quadrant. Under direct visualization, a 5mm port was introduced. The abdominal cavity was insufflated while monitoring the intra-abdominal pressure to ensure free low pressure flow of gas inside the peritoneal cavity. The Marcia 12mm trocar was placed in the periumbilical region. Upon entry of the abdomen we verified no injury to the bowel or any other structures, then under direct camera visualization two 5 mm trocar were placed in the right subcostal area and a 5 mm trocar placed in the subxyphoid position. We then grasped the gallbladder and retracted it to the right shoulder in the cephalad direction. We then identified the gallbladder neck, grasped this and opened the gallbladder peritoneum medially and laterally. We then used blunt dissection to identify the cystic duct and the cystic artery. We had a good critical view visualizing the cystic plate, cystic duct and cystic artery with two and only two structures entering the gallbladder. We placed a total of three 5-mm endoclips on the cystic duct, one on the gallbladder side and two on the stay side. We then placed three 5 mm clips on the cystic artery. We then transected the cystic duct and cystic artery leaving 2 clips on the stay side of the gallbladder and two clip on cystic artery. We then continued the procedure by removing the gallbladder from the gallbladder fossa using electrocautery and had excellent hemostasis. We then placed the gallbladder into the specimen bag, performed a specimen time-out and removed the specimen from the sterile field. We then desufflated the abdomen after removing all trocars and approximated the umbilical incision fascia with a figure of eight #0 Vicryl suture. We then closed the skin with 4-0 Monocryl suture and placed skin glue on the incisions. All instrument and sponge counts were correct prior to skin closure. Drains: None IV Fluids: Per anesthesia report Estimated Blood Loss: 5 cc Estimated Urine Output: Per anesthesia report Specimens: ID Type Source Tests Collected by Time Destination A : Tissue Gallbladder SURGICAL PATHOLOGY Chelsie Peralta MD 05/30/2025 9:10 AM Antibiotics: Current Anti-Infective Meds (From admission, onward) Start Stop Route Frequency Ordered 05/30/25 0800 clindamycin iv piggyback 900 mg in D5W 50 mL (CLEOCIN) Status: Discontinued 05/30/25 0920 IV PRE-OP ONCE 05/30/25 0658 Wound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 patient changes clothes, and cooperation requested of patient/family with fall risk interventions. [facility] OPERATIVE NOon 03-29-2025 OPERATIVE NO HNO ID: [id number] Author: LAVONNE RAI MD Service: Urology Author Type: Physician Type: Operative Report Filed: 03/29/2025 16:37 Note Text: OPERATIVE/PROCEDURE REPORT LOG ID: [id number] SURGERY/PROCEDURE DATE: 03/29/2025 INCISION/PROCEDURE START TIME: 4:07 PM INCISION CLOSE/PROCEDURE END TIME: SURGEON(S)/PROCEDURALIS T(S) AND SENIOR ENERGY CONSULTANT(S): Surgeons and Role: * Lavonne Rai MD - Primary No Additional Staff SURGERY/PROCEDURE(S): RIGHT Extracorporeal shockwave lithotripsy ANESTHESIA: General SURGERY/PROCEDURE DETAILS: The patient was administered IV antibiotics and taken to the operating room where bilateral SCDs were placed and a general anesthetic was administered. The patient was positioned supine such that the stone in the RIGHT proximal ureter was an F2 of the lithotripter using biplanar fluoroscopy. The patient received 2500 shocks with good fluoroscopic resolution. PRE-OP/PRE-PROCEDURE DIAGNOSIS: RIGHT ureteral stone POST-OP/POST-PROCEDURE DIAGNOSIS: Same as Preop ESTIMATED BLOOD LOSS: 0 ml SPECIMENS: None IMPLANTABLE DEVICES: None DRAINS: None COMPLICATIONS: None PARTICIPATION IN SURGERY/PROCEDURE: I/primary surgeon/proceduralist performed the procedure with assistance. SIGNATURE: Lavonne Rai MD PATIENT NAME: Sri Chacon DATE: March 29, 2025 TIME: 4:36 PM [facility] US ABDOMEN COMPLETEon 2024 US ABDOMEN COMPLETE * * *Final Report* * * DATE OF EXAM: Mar 27 2025 11:46AM AKU 1040 - US ABDOMEN COMPLETE / PROCEDURE REASON: multiple diagnoses * * * * Physician Interpretation * * * * EXAMINATION: COMPLETE ABDOMINAL ULTRASOUND CLINICAL HISTORY: Generalized abdominal pain Rectal bleeding Irritable bowel syndrome with diarrhea Chronic superficial gastritis without bleeding TECHNIQUE: Sonography of the abdomen was performed. Images were obtained and stored in a permanent archive. MQ: UAbC_2 COMPARISON: 03/06/2025 outside enhanced A/P CT RESULT: Pancreas: Normal sonographic appearance. Portions obscured: Tail Lesions: None Liver: Echotexture: Normal, homogeneous. Echogenicity: Normal Surface contour: Smooth Lesions: None. Other: Main portal vein is patent and demonstrates appropriate hepatopedal blood flow. Biliary: No intrahepatic biliary duct dilation. CBD: 0.2 cm at the hilum. Gallbladder: Normal caliber -Contents: Cholelithiasis, mobile within the gallbladder lumen -Wall: Normal -Other: No pericholecystic fluid. Spleen: Length: 12.1 cm Lesions: None Right Kidney: -Renal length: 11.0 cm -Parenchyma: Normal parenchymal echogenicity. Normal parenchymal thickness. -Collecting system: No hydronephrosis. -Calculus: Shadowing 1.8 x 0.9 x 1.1 cm mid pole renal sinus echogenicity. -Lesion: None. Left Kidney: -Renal length: 9.7 cm -Parenchyma: Normal parenchymal echogenicity. Normal parenchymal thickness. -Collecting system: No hydronephrosis. -Calculus: No echogenic, shadowing calculus. -Lesion: None. Bladder: Nondistended. IVC: Imaged segment is patent. Abdominal Aorta: Imaged segment is patent. Maximum Diameter: 2.2 Ascites: None. IMPRESSION: Cholelithiasis. Nonobstructing right nephrolith. Potato Chip Sorter: [facility] Transcribe Date/Time: Mar 29 2025 6:24P Dictated by : DEISY BYRD MD This examination was interpreted and the report reviewed and electronically signed by: DEISY BYRD MD on Mar 29 2025 6:33PM EST [id number] Normal [facility] CNPNon 03-22-2025 CNPN Normal [facility] CNOVon 03-21-2025 CNOV Normal [facility] CNOVon 03-20-2025 CNOV Normal [facility] CNPNon 03-10-2025 CNPN Normal [facility] CNPN Telephone (URCANT) OSWALDOSRI Arauz ([id number]) 1975 F Date Time Provider Department 03/10/25 BRIA STOVER During your visit today, we recorded the following information about you: Ricardo Heard 03/10/2025 1:19 PM Signed Patient called and left a message asking if she could get some pain medication from having emergency surgery. Please advise Ricardo Heard Allergies As of Date: 03/10/2025 Noted Allergy Reaction CODEINE 07/08/2006 4 - Hives 7 - Swelling Comments: swelling-airway/face MORPHINE 07/01/2006 7 - Swelling PENICILLIN G 07/01/2006 4 - Hives 7 - Swelling SHELLFISH DERIVED 10/19/2018 10 - Anaphylaxis BENADRYL (DIPHENHYDRAMINE HCL) 07/01/2006 1 - Mental Status Change PHENERGAN (PROMETHAZINE HCL) 07/01/2006 1 - Mental Status Change ASPIRIN 09/24/2018 2 - Rash Date Reviewed: 03/08/2025 Reviewed by: Fabi Conner, RN - Fully Assessed Reason for Visit: asking for pain meds [Other] Primary Visit Diagnosis:Ureteral calculi [N20.1] Order(s):keTORolac (TORADOL) 10 mg tabletTake 1 tablet by mouth every 6 hours as needed for pain for up to 5 days.Disp: 20 tabletRfl: 0 Prescriptions as of 03/14/2025 - levothyroxine (SYNTHROID) 88 mcg tablet Take 1 tablet by mouth once daily. Take 1 1/2 tablets on Thursday - keTORolac (TORADOL) 10 mg tablet Take 1 tablet by mouth every 6 hours as needed for pain for up to 5 days. - tamsulosin (FLOMAX) 0.4 mg Take 1 capsule by mouth daily at bedtime. - ondansetron (ZOFRAN) 4 mg tablet Take 1 tablet by mouth every 6 hours as needed for nausea/vomiting. - hemorrhoid ointment (PREPARATION H) 0.25-14-74.9 % rectal ointment by RECTAL route as needed (For hemorrhoid pain and bleeding). - pregabalin (LYRICA) 50 mg capsule Take 1 capsule by mouth three times a day for 90 days. - ergocalciferol 50,000 unit capsule (VITAMIN D2, DRISDOL) Take 1 capsule by mouth one time a week. - pantoprazole DR (PROTONIX) 20 mg tablet Take 1 tablet by mouth daily before breakfast. - Syringe with Needle, Disp, 3 mL 23 x 1 1 Each as directed. - lamoTRIgine (LAMICTAL) 100 mg tablet Take 1 tablet by mouth two times a day. To start on or after 08/10/2024, after completing titration schedule. - FLUoxetine (PROZAC) 40 mg capsule Take 1 capsule by mouth once daily. Problem List As Of Date 03/10/2025 Noted Resolved Calculus of kidney [N20.0] 07/03/2006 12/26/2017 Asthma [J45.909] 07/17/2007 Sprain of right ankle [S93.401A] 10/18/2007 Renal colic [N23] 01/21/2008 12/24/2017 Hydronephrosis with urinary obstruction due to *03/16/2008 Right ureteral calculus [N20.1] 03/16/2008 Gross hematuria [R31.0] 05/02/2009 12/24/2017 Microscopic hematuria [R31.29] 05/02/2009 12/24/2017 Right flank pain [R10.9] 05/02/2009 Hyperactivity of bladder [N31.8] 05/02/2009 12/24/2017 Renal [...] Arthrofibrosis of knee joint, left [M24.662] 10/05/2024 Major depressive disorder, recurrent severe wit*02/24/2025 DARREL (generalized anxiety disorder) [F41.1] 02/24/2025 Chronic post-traumatic stress disorder (PTSD) [*02/24/2025 Obesity, Class II, BMI 35-39.9 [E66.812] 03/06/2025 Rectal bleeding [K62.5] 03/06/2025 HTN (hypertension) [I10] 03/06/2025 Prescriptions ordered this encounter Disp Refills Start End KETOROLAC 10 MG TABLET 20 t* 0 03/10/2025 03/15/2025 Route: PO Sig: Take 1 tablet by mouth every 6 hours as needed for pain for up to 5 days. Encounter Status:Closed by RICARDO HEARD on 03/14/25 Normal [facility] Basic metabolic 2000 panelon 03-08-2025 Anion gap [Moles/Vol] 9 mmol/L Normal 5-16 [facility] Comment on above: Order Comment: Cassandra cunningham Type: BLOOD SPECIMEN Ordering Facility: [facility] Address: [address] [place] [address] Performed By: #### 5 8410-2 #### [facility] CLIA [id number] [address] [place] [address] [place] Calcium [Mass/Vol] 9.7 mg/dL Normal 8.5-10.5 [facility] Comment on above: Order Comment: Cassandra cunningham Type: BLOOD SPECIMEN Ordering Facility: [facility] Address: [address] [place] [address] Performed By: #### 5 8410-2 #### [facility] CLIA [id number] [address] [place], [place] [address] [place] Chloride [Moles/Vol] 104 mmol/L Normal 98-107 [facility] Comment on above: Order Comment: Speci men Type: BLOOD SPECIMEN Ordering Facility: [facility] Address: [address] [place] [address] Performed By: #### 5 8410-2 #### [facility] CLIA [id number] [address] [place] [address] [place] CO2 [Moles/Vol] 26 mmol/L Normal 21-32 [facility] Comment on above: Order Comment: Speci men Type: BLOOD SPECIMEN Ordering Facility: [facility] Address: [address] [place] [address] Performed By: #### 5 8410-2 #### [facility] CLIA [id number] [address] [place] [address] [place] Creatinine [Mass/Vol] 0.73 mg/dL Normal 0.51-0.95 [facility] Comment on above: Order Comment: Speci men Type: BLOOD SPECIMEN Ordering Facility: [facility] Address: [address] [place] [address] Result Comment: Nancy ents receiving either N-Acetylcysteine (NAC) or Metamizole prior to venipuncture, may have falsely depressed results. Performed By: #### 5 8410-2 #### [facility] CLIA [id number] [address] [place] [address] [place] eGFRcr SerPlBld CKD-EPI 2020 100 mL/min/1.73m??? Normal >=60 [facility] Comment on above: Order Comment: Speci men Type: BLOOD SPECIMEN Ordering Facility: [facility] Address: [address] [place] [address] Result Comment: Ninfa mated Glomerular Filtration Rate [...] accurately reflect actual GFR. Performed By: #### 5 8410-2 #### [facility] CLIA [id number] [address] [place] [address] [place] Glucose [Mass/Vol] 96 mg/dL Normal 70-100 [facility] Comment on above: Order Comment: Cassandra cunningham Type: BLOOD SPECIMEN Ordering Facility: [facility] Address: [address] [place] [id number] Result Comment: The [place] [employer] Association (ADA) provides guidance for cutoff [...] Standards of Medical Care in Diabetes 2016, [place] [employer]. Diabetes Care. 2016.39(Suppl 1). Results may be falsely elevated after the administration of Sulfapyridine. Results may be falsely depressed after the administration of Sulfasalazine. Performed By: #### 5 8410-2 #### [facility] CLIA [id number] [address] [place] [address] [place] Potassium [Moles/Vol] 4.0 mmol/L Normal 3.5-5.1 [facility] Comment on above: Order Comment: Cassandra cunningham Type: BLOOD SPECIMEN Ordering Facility: [facility] Address: [address] [place] [address] Performed By: #### 5 8410-2 #### [facility] CLIA [id number] [address] [place], [place] [address] [place] Sodium [Moles/Vol] 139 mmol/L Normal 136-145 [facility] Comment on above: Order Comment: Speci men Type: BLOOD SPECIMEN Ordering Facility: [facility] Address: [address] [place] [address] Performed By: #### 5 8410-2 #### [facility] CLIA [id number] [address] [place] [address] [place] Urea nitrogen [Mass/Vol] 11 mg/dL Normal 7-26 [facility] Comment on above: Order Comment: Speci men Type: BLOOD SPECIMEN Ordering Facility: [facility] Address: [address] [place] [address] Performed By: #### 5 8410-2 #### [facility] CLIA [id number] [address] [place] [address] [place] CBC panel Auto (Bld)on 03-08 Erythrocyte distribution width (RBC) [Ratio] 12.7 % Normal 11.5-15.0 [facility] Comment on above: Order Comment: Speci men Type: BLOOD SPECIMEN Ordering Facility: [facility] Address: [address] [place] [address] Performed By: #### 5 8410-2 #### [facility] CLIA [id number] [address] [place] [address] [place] Hematocrit (Bld) [Volume fraction] 39.3 % Normal 36.0-46.0 [facility] Comment on above: Order Comment: Speci men Type: BLOOD SPECIMEN Ordering Facility: [facility] Address: [address] [place] [address] Performed By: #### 5 8410-2 #### [facility] CLIA [id number] [address] [place] [address] [place] Hemoglobin (Bld) [Mass/Vol] 13.5 g/dL Normal 11.5-15.5 [facility] Comment on above: Order Comment: Speci men Type: BLOOD SPECIMEN Ordering Facility: [facility] Address: [address] [place] [address] Performed By: #### 5 8410-2 #### [facility] CLIA [id number] [address] [place] [address] [place] MCH (RBC) [Entitic mass] 30.6 pg Normal 26.0-34.0 [facility] Comment on above: Order Comment: Speci men Type: BLOOD SPECIMEN Ordering Facility: [facility] Address: [address] [place] [address] Performed By: #### 5 8410-2 #### [facility] CLIA [id number] [address] [place] [address] [place] MCHC (RBC) [Mass/Vol] 34.4 g/dL Normal 30.5-36.0 [facility] Comment on above: Order Comment: Speci men Type: BLOOD SPECIMEN Ordering Facility: [facility] Address: [address] [place] [address] Performed By: #### 5 8410-2 #### [facility] CLIA [id number] [address] [place] [address] [place] MCV (RBC) [Entitic vol] 89.1 fL Normal 80.0-100.0 [facility] Comment on above: Order Comment: Speci men Type: BLOOD SPECIMEN Ordering Facility: [facility] Address: [address] [place] [address] Performed By: #### 5 8410-2 #### [facility] CLIA [id number] [address] [place] [address] [place] Nucleated RBC (Bld) [#/Vol] 10*3/uL Normal <0.01 [facility] Comment on above: Order Comment: Speci men Type: BLOOD SPECIMEN Ordering Facility: [facility] Address: [address] [place] [address] Performed By: #### 5 8410-2 #### [facility] CLIA [id number] [address] [place] [address] [place] Platelet mean volume (Bld) [Entitic vol] 9.1 fL Normal 9.0-12.7 [facility] Comment on above: Order Comment: Speci men Type: BLOOD SPECIMEN Ordering Facility: [facility] Address: [address] [place] [address] Performed By: #### 5 8410-2 #### [facility] CLIA [id number] [address] [place], [place] [address] [facility] Platelets (Bld) [#/Vol] 230 10*3/uL Normal 150-400 [facility] Comment on above: Order Comment: Speci men Type: BLOOD SPECIMEN Ordering Facility: [facility] Address: [address] [place] [address] Performed By: #### 5 8410-2 #### [facility] CLIA [id number] [address] [place] [address] RBC (Bld) [#/Vol] 4.41 10*6/uL Normal 3.90-5.20 [facility] Comment on above: Order Comment: Speci men Type: BLOOD SPECIMEN [facility] [facility] Address: [address] [place] [address] Performed By: #### 5 8410-2 #### [facility] CLIA [id number] [address] [place] [address] [facility] WBC (Bld) [#/Vol] 7.83 10*3/uL Normal 3.70-11.00 [facility] Comment on above: Order Comment: Speci men Type: BLOOD SPECIMEN Ordering Facility: [facility] Address: [address] [place] [address] Performed By: #### 5 8410-2 #### [facility] CLIA [id number] [address] [place] [address] CNDSon 03-08-2025 CNDS HNO ID: [id number] Author: GRETA ARCE APRN.COMMUNITY HEALTH PLANNING DIRECTOR Service: Hospital Medicine Author Type: Nurse Practitioner Type: Discharge Summary Filed: 03/08/2025 13:27 Note Text: Attestation signed by Clem Draper MD at 03/08/2025 5:59 PM I have reviewed the Resident/ POLICY CHANGE CLERKS SUPERVISOR/PA's documentation. I discussed and agree with the nonphysician practitioner's physical findings, diagnoses, and management plan as above. Clem Draper MD 03/08/2025 5:59 PM P DISCHARGE SUMMARY PATIENT NAME: Sri Chacon ADMISSION DATE: 03/06/2025 DISCHARGE DATE: 03/08/2025 Attending Physician: Clem Draper MD Code Status: Full Code Highest Readmission Risk Score: 16 The 30 day readmissions risk score is derived from an internally validated risk model which evaluates patient level characteristics, utilization history, medication orders and lab results up until the day of discharge. Patients with a score of 39 or above are considered highest risk for readmission. Specific patient level drivers will be listed at the bottom of the summary. Reason for Hospitalization: Hydronephrosis with urinary obstruction due to renal calculus Sri Chacon is a 49 year old female presented with past medical history of kidney stones, hypertension, hypothyroidism, IBS, TBI, and depression who presents as a direct admission from [facility] with a diagnosis of hydronephrosis with urinary obstruction due to renal calculus after she presented there with right flank pain. The patient reports that she began experiencing right lower quadrant abdominal pain this am that radiated and became more localized to the right flank accompanied by nausea. She further reports she noticed cecy red rectal bleeding multiple times while wiping for the past day as well. She denies any fever, chills, shortness of breath, chest pain, constipation, or dysuria. In the ER, lab work unremarkable. CT showed a 1.2 cm stone in the right renal collecting system with moderate dilatation of the right ureter with a 0.2 cm stone in the right distal ureter. She was given 1 g IV Rocephin, Dilaudid, and Toradol. She was subsequently transferred here for urology services. She underwent Cystoscopy, right ureteral stent insertion with Dr Stover on 03/07. She was cleared for discharge on POD#1 with outpatient follow up. She endorsed pain uncontrolled with Tylenol and Motrin and prior tolerance with Oxycodone so she was provided this on discharge. Urology recommended starting Flomax and Pyridium on discharge, no need for antibiotics. Principal Problem: Hydronephrosis with urinary obstruction due to renal calculus (POA: Yes) Active Problems: Right ureteral calculus (POA: Yes) Right flank pain (POA: Yes) Depression (POA: Yes) Hypothyroidism (POA: Yes) Chronic post-traumatic stress disorder (PTSD) (POA: Yes) Obesity, Class II, BMI 35-39.9 (POA: Yes) Rectal bleeding (POA: Yes) HTN (hypertension) (POA: Yes) Resolved Problems: * No resolved hospital problems. * Operations During Hospitalization: Cystoscopy, right ureteral stent insertion Procedures During Hospitalization: No procedures performed Hospital Course: Principal Problem: 1. Hydronephrosis with urinary obstruction due to renal calculus (POA: Yes) -CT imaging showed 1.2 cm stone in the right renal collecting system with moderate dilatation of the right ureter with a 0.2 cm stone in the right distal ureter. She was given 1 g IV Rocephin and transferred here for urology services. -Monitored on continuous cardiac monitoring -IV fluid hydration with LR at 75 mL an hour continuously -POD #1 Cystoscopy, right ureteral stent insertion -Consult placed urology, appreciate recs -UA not showing infection -Urology sending with flomax/pyridium. No need for antibiotics. Follow up in office in 2 weeks. Active Problems: 2. Right flank pain (POA: Yes) -likely secondary to above. - OTC Tylenol or Motrin as needed. Will send with Oxycodone for severe pain as she states has tolerated in past. 3. Rectal bleeding (POA: Yes) -suspect secondary to hemorrhoids. - Preparation H as needed for rectal pain and bleeding - Hgb stable 13.5 4. Obesity, Class II, BMI 35-39.9 (POA: Yes) -current BMI 35.74. - BMI 35.74, Weight loss recommended Chronic Conditions: Stable 5. Depression 6. Hypothyroidism 7. Chronic posttraumatic stress disorder 8. Hypertension - Continue home PO prozac 40mg daily, PO lamictal 100mg BID, PO synthroid 88mcg daily, PO protonix 20mg daily, PO lyrica 25mg TID - Patient does have an active IOP however no current concerns for suicidal ideation Resolved Problems: * No resolved hospital problems. * Consulting Teams During Hospitalization: Surgery : Urology Treatment Team: Attending Pro (more content not included)... [facility] CNDS HNO ID: [id number] Author: JANETT DASH [facility] Service: Behavioral Health IOP (Intensive Outpatient Program) Author Type: Counselor Type: Discharge Summary Filed: 03/08/2025 15:23 Note Text: BEHAVIORAL HEALTH IOP (INTENSIVE OUTPATIENT PROGRAM) CLOSING SUMMARY OPENING/ADMIT DATE: 03-06-25 CLOSING/TERMINATION DATE: 03-08-25 DATE OF LAST CONTACT: 03-08-25 PRESENTING COMPLAINT: Increased symptoms of depression, anxiety with Suicidal Ideation. UNRESOLVED PROBLEMS: all GOALS MET: none GOALS TO CONTINUE ON OUTPATIENT: all Unable to complete SAFE-T, GAD7, And PHQ9 due to the patient withdrawing from the program. The patient plans to re-enroll when she has her health better managed. She had to discharge due to emergency surgery and follow up appointments. MEDICATION SUMMARY: Current Outpatient Medications Medication Sig phenazopyridine (PYRIDIUM) 200 mg tablet Take 1 tablet by mouth three times a day as needed for up to 5 days. tamsulosin (FLOMAX) 0.4 mg Take 1 capsule by mouth daily at bedtime. ondansetron (ZOFRAN) 4 mg tablet Take 1 tablet by mouth every 6 hours as needed for nausea/vomiting. hemorrhoid ointment (PREPARATION H) 0.25-14-74.9 % rectal ointment by RECTAL route as needed (For hemorrhoid pain and bleeding). oxyCODONE IR (ROXICODONE) 5 mg immediate release tablet Take 1 tablet by mouth every 6 hours as needed for pain for up to 3 days. pregabalin (LYRICA) 50 mg capsule Take 1 capsule by mouth three times a day for 90 days. levothyroxine (SYNTHROID) 88 mcg tablet Take 1 tablet by mouth once daily. ergocalciferol 50,000 unit capsule (VITAMIN D2, DRISDOL) Take 1 capsule by mouth one time a week. pantoprazole DR (PROTONIX) 20 mg tablet Take [...] daily. No current facility-administered medications for this encounter. Facility-Administered Medications Ordered in Other Encounters Medication Dose Route Frequency tamsulosin 0.4 mg cap(s) (FLOMAX) 0.4 mg ORAL AT BEDTIME phenazopyridine 200 mg tab(s) (PYRIDIUM) 200 mg ORAL TID after MEALS hemorrhoid ointment ointment (PREPARATION H) RECTAL PRN lamoTRIgine 100 mg tab(s) (LaMICtal) 100 mg ORAL BID pregabalin 25 mg cap(s) (LYRICA) 25 mg ORAL TID pantoprazole DR 20 mg tab(s) (PROTONIX) 20 mg ORAL BEFORE BREAKFAST DAILY FLUoxetine 40 mg cap(s) (PROzac) 40 mg ORAL DAILY levothyroxine 88 mcg tab(s) (SYNTHROID) 88 mcg ORAL DAILY acetaminophen 650 mg tab(s) (TYLENOL) 650 mg ORAL q 4 H PRN ibuprofen 400 mg tab(s) (MOTRIN) 400 mg ORAL q 6 H PRN ondansetron 4 mg tab(s) (ZOFRAN) 4 mg ORAL q 6 H PRN Or ondansetron (PF) 4 mg injection (ZOFRAN) 4 mg INTRAVENOUS q 6 H PRN FINAL DIAGNOSIS: Mood Disorder Major Depressive Disorder, Recurrent, Severe Without Psychotic Symptoms F33.2 Anxiety Disorder Generalized Anxiety Disorder F41.1 PTSD, chronic F43.12 History of polysubstance abuse REASON FOR CLOSING/TERMINATION: Withdrew from program REFERRALS: Psychiatry: Anaya Bartlett APRN Therapy: Patient to return to [facility] when she feels she is able. Cannot complete program at this time due to health. SIGNATURE: Janett Dash [facility] PATIENT NAME: Sri Chacon DATE: March 08, 2025 TIME: 3:21 PM Normal [facility] CNDS HNO ID: [id number] Author: JANETT DASH [facility] Service: Behavioral Health IOP (Intensive Outpatient Program) Author Type: Counselor Type: Discharge Summary Filed: 03/08/2025 15:20 Note Text: [facility] Partial Hospitalization and Intensive Outpatient Program [address] [place] [address] IOP (INTENSIVE OUTPATIENT PROGRAM) PATIENT DISCHARGE INSTRUCTIONS C O N F I D E N T I A L I N F O R M A T I O N The following is a summary of your discharge instructions. Some of the information contained on this summary may be confidential. This information should be kept in your records and should be shared with your regular doctor. Patient Name: Sri Chacon Allergies as of 03/08/2025 ALLERGIES Allergen Reactions Codeine Hives, Swelling swelling-airway/face Morphine Swelling Penicillin G Hives, Swelling Shellfish Derived Anaphylaxis Benadryl [Diphenhyd* Mental Status Change Phenergan [Prometha* Mental Status Change Aspirin Rash This is a current medication list per your reported information. Current Outpatient Medications Medication Sig phenazopyridine (PYRIDIUM) 200 mg tablet Take 1 tablet by mouth three times a day as needed for up to 5 days. tamsulosin (FLOMAX) 0.4 mg Take 1 capsule by mouth daily at bedtime. ondansetron (ZOFRAN) 4 mg tablet Take 1 tablet by mouth every 6 hours as needed for nausea/vomiting. hemorrhoid ointment (PREPARATION H) 0.25-14-74.9 % rectal ointment by RECTAL route as needed (For hemorrhoid pain and bleeding). oxyCODONE IR (ROXICODONE) 5 mg immediate release tablet Take 1 tablet by mouth every 6 hours as needed for pain for up to 3 days. pregabalin (LYRICA) 50 mg capsule Take 1 capsule by mouth three times a day for 90 days. levothyroxine (SYNTHROID) 88 mcg tablet Take 1 tablet by mouth once daily. ergocalciferol 50,000 unit capsule (VITAMIN D2, DRISDOL) Take 1 capsule by mouth one time a week. pantoprazole DR (PROTONIX) 20 mg tablet Take [...] daily. No current facility-administered medications for this encounter. Facility-Administered Medications Ordered in Other Encounters Medication Dose Route Frequency tamsulosin 0.4 mg cap(s) (FLOMAX) 0.4 mg ORAL AT BEDTIME phenazopyridine 200 mg tab(s) (PYRIDIUM) 200 mg ORAL TID after MEALS hemorrhoid ointment ointment (PREPARATION H) RECTAL PRN lamoTRIgine 100 mg tab(s) (LaMICtal) 100 mg ORAL BID pregabalin 25 mg cap(s) (LYRICA) 25 mg ORAL TID pantoprazole DR 20 mg tab(s) (PROTONIX) 20 mg ORAL BEFORE BREAKFAST DAILY FLUoxetine 40 mg cap(s) (PROzac) 40 mg ORAL DAILY levothyroxine 88 mcg tab(s) (SYNTHROID) 88 mcg ORAL DAILY acetaminophen 650 mg tab(s) (TYLENOL) 650 mg ORAL q 4 H PRN ibuprofen 400 mg tab(s) (MOTRIN) 400 mg ORAL q 6 H PRN ondansetron 4 mg tab(s) (ZOFRAN) 4 mg ORAL q 6 H PRN Or ondansetron (PF) 4 mg injection (ZOFRAN) 4 mg INTRAVENOUS q 6 H PRN If you have any questions or concerns about your medication(s) please contact the prescribing physician. Your follow-up appointments include: Psychiatry: Anaya Bartlett APRN Therapy: Patient to return to [facility] when she feels she is able. Could not complete program at this time due to health. Recommended Community Resources: [facility]/Emergency 24-Hour Mental Health and [place] Line for Adults and Children [facility] First Call for Help or [address] [facility] Lifeline-Suicide Prevention 0-403-598-BBMP (2830) ANDRE ([employer] [place] on Mental Illness) . Info referral line I have received a copy of the above instructions and understand them. SIGNED: Patient unable to sign due to VIOP Date: _Time: Patient/Significant Other Signed: Dat e: Time: __ Staff Signature/Title Electronically Signed: Janett Dash [facility] 03-08-2025 CNPN Telephone ([id number]) SRI CHACON ([id number]) 1975 F Date Time Provider Department 03/08/25 DUONG SANDHU [id number] During your visit today, we recorded the following information about you: Duong Sandhu APRN.[facility] 03/08/2025 8:49 AM Signed Pt evaluated during admission for right ureteral calculi Surgery: Extracorporeal shockwave lithotripsy - right Duration: 1 hour(s) Surgeon: Dr. Rai Location: [facility] Anesthesia: General Fluoroscopy: Yes Special equipment: none PACC visit: No Presurgical testing: CBC, BMP, Urinalysis and urine culture one week prior to surgery, EKG Clearance: No Bowel prep: No Blood thinners to stop: yes Will need follow up [address] Rai for stent removal. Post up KUB ordered. Be Baca 03/09/2025 9:23 AM Signed Called pt and she is on 03/29. Aware of instructions. Can you place orders for the CBC, BMP, Urinalysis and urine culture, EKG Duong Sandhu APRN.CNP 03/09/2025 9:32 AM Signed Orders placed. Be Baca 03/14/2025 11:38 AM Signed Pt is on for an ESWL under general anesthesia with on 03/29/2025 CASE# [id number] Pt is aware of prep and arrival instructions given verbally 03/09. Pt states they are not on nsaids or Asprin. GOSO message sent 03/14. Post Op 04/11/2025 at 8:40 in the [place] office ESWL bed REF# [id number] per portal 03/14 Be Almaraz 03/28/2025 10:21 AM Signed Called to confirm surgery and pt confirmed date and procedure. Confirmed they have a transfer driver. Reminded no NSAIDS and NPO. Be Baca Allergies As of Date: 03/08/2025 Noted Allergy Reaction CODEINE 07/08/2006 4 - Hives 7 - Swelling Comments: swelling-airway/face MORPHINE 07/01/2006 7 - Swelling PENICILLIN G 07/01/2006 4 - Hives 7 - Swelling SHELLFISH DERIVED 10/19/2018 10 - Anaphylaxis BENADRYL (DIPHENHYDRAMINE HCL) 07/01/2006 1 - Mental Status Change PHENERGAN (PROMETHAZINE HCL) 07/01/2006 1 - Mental Status Change ASPIRIN 09/24/2018 2 - Rash Date Reviewed: 03/08/2025 Reviewed by: Fabi Conner RN - Fully Assessed Reason for Visit: Surgery [Other] Primary Visit Diagnosis:Ureteral calculi [N20.1] Order(s):SURGICAL REQUEST - ELECTIVE (03/2020) [9945770] Order #: [id number]: 1 COMPLETE BLOOD COUNT [SQCBC] Order #: [id number] FUTURE BASIC METABOLIC PANEL [SQBMP] Order #: [id number] FUTURE ECG COMPLETE [ECG01] Order #: [id number] FUTURE URINALYSIS (WITH MICROSCOPIC) WITH CULTURE IF INDICATED [SQUACII] Order #: [id number] FUTURE Prescriptions as of 03/28/2025 - diphenhydrAMINE (BENADRYL) 50 mg/mL injection Inject 25 mg intramuscularly two times a day. Takes for migraines - BD LUER-FAHAD SYRINGE 3 mL 25 x 58 - dicyclomine (BENTYL) 10 mg capsule Take 1 capsule by mouth before meals and at bedtime. - sucralfate (CARAFATE) 100 mg/mL suspension Take 10 mL by mouth before meals and at bedtime. - levothyroxine (SYNTHROID) 88 mcg tablet Take 1 tablet by mouth once daily. Take 1 1/2 tablets on Thursday - tamsulosin (FLOMAX) 0.4 mg Take 1 capsule by mouth daily at bedtime. - ondansetron (ZOFRAN) 4 mg tablet Take 1 tablet by mouth every 6 hours as needed for nausea/vomiting. - hemorrhoid ointment (PREPARATION H) 0.25-14-74.9 % rectal ointment by RECTAL route as needed (For hemorrhoid pain and bleeding). - pregabalin (LYRICA) 50 mg capsule Take 1 capsule by mouth three times a day for 90 days. - ergocalciferol 50,000 unit capsule (VITAMIN D2, DRISDOL) Take 1 capsule by mouth one time a week. - pantoprazole DR (PROTONIX) 20 mg tablet Take 1 tablet by mouth daily before breakfast. - lamoTRIgine (LAMICTAL) 100 mg tablet Take 1 tablet by mouth two times a day. To start on or after 08/10/2024, after completing titration schedule. - FLUoxetine (PROZAC) 40 mg capsule Take 1 capsule by mouth once daily. Problem List As Of Date 03/08/2025 Noted Resolved Calculus of kidney [N20.0] 07/03/2006 12/26/2017 Asthma [J45.909] 07/17/2007 Sprain of right ankle [S93.401A] 10/18/2007 Renal colic [N23] 01/21/2008 12/24/2017 Hydronephrosis with urinary obstruction due to *03/16/2008 Right ureteral calculus [N20.1] 03/16/2008 Gross hematuria [R31.0] 05/02/2009 12/24/2017 Microscopic hematuria [R31.29] 05/02/2009 12/24/2017 Right flank pain [R10.9] 05/02/2009 Hyperactivity of bladder [N31.8] 05/02/2009 12/24/2017 Renal calculus, right [N20.0] 07/31/2010 12/24/2017 Pelvic pain in female [R10.2] 08/27/2011 12/24/2017 Pain in joint, lower leg [M25.569] 12/29/2012 12/24/2017 Convulsions (HCC) [R56.9] 02/01/2013 12/26/2017 Migraine [G43.909] 02/01/2013 Other convulsions (HCC) [R56.9] 06/02/2014 Nonrheumatic mitral (valve) prolapse [I34.1] 06/15/2017 Essential hypertension [I10] 01/01/2018 Depression [F32.A] 01/01/2018 Chronic pain of left knee [M25.562, G89.29] 10 (more content not included)... Normal [facility] Urine Cultureon 03-08-2025 URC Klebsiella pneumonia e sp pneum [place] Count 80,000-100,000 Klebsiella pneumoniae sp pneum: REACTION Ampicillin Islt YADIRA Ampicillin+Sulbac Islt YADIRA 4 S Cefepime Islt YADIRA <=0.12 S cefTRIAXone Islt YADIRA <=0.25 S Ciprofloxacin Islt YADIRA <=0.06 S B-Lactamase Extended Susc Islt NEG Gentamicin Islt YADIRA <=1 S levoFLOXacin Islt YADIRA <=0.12 S Meropenem Islt YADIRA <=0.25 S Nitrofurantoin Islt YADIRA 64 I Pip+Tazo Islt YADIRA <=4 S TMP SMX Islt YADIRA <=20 S Normal [facility] Comment on above: Performed By: #### M [id number] #### [facility] Laboratory [facility] [place], [address] ALLIED HEALTHon 03-07-2025 ALLIED HEALTH HNO ID: [id number] Author: HAMZAH ANNE RT(R) Service: ? Author Type: Technologist Type: Allied Health Filed: 03/07/2025 09:41 Note Text: Summary: xray Radiology Service Progress Note PATIENT NAME: Sri Chacon DATE OF SERVICE: March 07, 2025 TIME: 9:41 AM PATIENT IDENTITY VERIFICATION COMPLETED USING TWO (2) IDENTIFIERS: Name and Date of confirmed by patient verbally and Name and Date of confirmed by identification band. FALL SCREENING: Has the patient had 2 falls in the last year or 1 fall with injury or currently using an Ambulatory Assistive Device (Walker, Cane, Wheelchair, Crutches, etc.)? Inpatient: Screened on floor PATIENT GENDER DATA: Assigned female at . status: : No status: NO. PATIENT RELEVANT IMPLANT DATA REVIEWED: Not Applicable PATIENT PRESENTS WITH AN IMPLANTABLE OR ATTACHED FRONT DESK REPRESENTATIVE: No RADIOLOGY DEPARTMENT: General X-ray: Exam(s) Completed: Abdomen X-Ray: Abdomen PERIPHERAL IV DATA: Not applicable SIGNED BY: RT Paula(Alise) March 07, 2025 9:41 AM [facility] ANES POSTPROC EVALon 025 ANES POSTPROC EVAL HNO ID: [id number] Author: DOMINGO MCCANN DO Service: Anesthesiology Author Type: Anesthesiologist Type: Anesthesia Postprocedure Evaluation Filed: 03/07/2025 11:54 Note Text: POST ANESTHESIA EVALUATION NOTE : 1975 Procedure Summary Date: 03/07/25 Room / Location: OR 08 / MR OR Anesthesia Start: 1046 Anesthesia Stop: 1118 Procedure: CYSTOSCOPY, INSERTION STENT URETERAL J (Right: Bladder) Diagnosis: Right flank pain (Right flank pain [R10.9]) Surgeons: Bria Stover MD Responsible Provider: Domingo Mccann DO Anesthesia Type: general ASA Status: 2 Anesthesia Type: general Airway Type: LMA Last Vitals Vitals Value Taken Time BP 116/79 03/07/25 1145 Temp 36.7 ?C (98 ?F) 03/07/25 1145 Pulse 90 03/07/25 1151 Resp 20 03/07/25 1145 SpO2 98 % 03/07/25 1151 Vitals shown include unfiled device data. Post Anesthesia Patient Status Patient Evaluation: PACU. PACU/ICU Patient Condition: stable. Anticipated Disposition: inpatient floor planned admission. Neurological Status: aware and responsive. Pulmonary Status: breathing comfortably on room air Airway Control: returned to baseline unsupported. Cardiovascular Status: stable. Pain Management: clinically adequate - multimodal analgesia pain management approach Postoperative Hydration: acceptable. Intraoperative Events: no significant anesthesia events Post Operative Nausea/Vomiting Status: no significant post operative nausea or vomiting Recommendation: continue current plan of care and further care per PACU/ICU/floor team. Anesthesia Observations No Documentation SIGNATURE: Domingo Mccann DO PATIENT NAME: Sri Chacon DATE: March 07, 2025 TIME: 11:53 AM CSN: [id number] [facility] ANES PRE-OPon 03-07-2025 ANES PRE-OP HNO ID: [id number] Author: DOMINGO MCCANN DO Service: Anesthesiology Author Type: Anesthesiologist Type: Anesthesia Preprocedure Evaluation Filed: 03/07/2025 10:39 Note Text: ANESTHESIOLOGY DAY OF SURGERY NOTE : 1975 Procedure Information Date/Time: 03/07/25 1048 Procedure: CYSTOSCOPY, INSERTION STENT URETERAL J (Right: Bladder) Location: OR 08 / MR OR Surgeons: Bria Stover MD Estimated body mass index is 35.74 kg/m? as calculated from the following: Height as of this encounter: 154.9 cm (5' 1). Weight as of this encounter: 85.8 kg (189 lb 2.5 oz). Most recent hematocrit and potassium results: Hematocrit 39.0 03/07/2025 Potassium 4.6 03/07/2025 Hemoglobin (g/dL) Date Value 03/07/2025 12.8 04/04/2021 13.8 Hematocrit (%) Date Value 03/07/2025 39.0 04/04/2021 42.5 WBC (k/uL) Date Value 03/07/2025 6.48 04/04/2021 6.37 Platelet Count (k/uL) Date Value 03/07/2025 203 04/04/2021 242 CMP: Glucose 94 03/07/2025 BUN 10 03/07/2025 Creatinine 0.71 03/07/2025 Sodium 143 03/07/2025 Potassium 4.6 03/07/2025 Chloride 108 03/07/2025 CO2 27 03/07/2025 Protein, Total 6.5 03/07/2025 Albumin 3.3 03/07/2025 Calcium 9.1 03/07/2025 Alkaline Phosphatase 93 03/07/2025 Bilirubin, Total 0.5 03/07/2025 AST 14 03/07/2025 ALT 12 03/07/2025 CHIEF COMPLAINT: Right flank pain HPI: This is a 49 year old female with a past medical history significant for history of kidney stones, hypertension, hypothyroidism, IBS, TBI, and depression who presents as a direct admission from [facility] with a diagnosis of hydronephrosis with urinary obstruction due to renal calculus after she presented there with right flank pain. The patient reports that she began experiencing right lower quadrant abdominal pain this am that radiated and became more localized to the right flank accompanied by nausea. She further reports she noticed cecy red rectal bleeding multiple times while wiping for the past day as well. She denies any fever, chills, shortness of breath, chest pain, constipation, or dysuria. In the ER, lab work unremarkable. CT showed a 1.2 cm stone in the right renal collecting system with moderate dilatation of the right ureter with a 0.2 cm stone in the right distal ureter. She was given 1 g IV Rocephin, Dilaudid, and Toradol. She was subsequently transferred here for urology services. She will be admitted to the medical unit for observation for further evaluation and treatment for IV fluid hydration with a consultation to urology. Relevant Problems CARDIO (+) Essential hypertension (+) HTN (hypertension) (+) Migraine (+) Nonrheumatic mitral (valve) prolapse ENDO (+) Hypothyroidism -RENAL (+) Hydronephrosis with urinary obstruction due to renal calculus NEURO-PSYCH (+) Migraine (+) Other convulsions PULMONARY (+) Asthma (HCC) Surgical History Current as of 03/07/25 1032 TOTAL ABDOMINAL HYSTERECT W/WO RMVL TUBE OVARY DILATION AND CURETTAGE DXAND/THER NONOBSTETRIC CYSTOSCOPY,URETEROSCOPY ,LITHOTRIPSY PAST SURGICAL HISTORY OF PAST SURGICAL HISTORY OF PAST SURGICAL HISTORY OF PAST SURGICAL HISTORY OF PAST SURGICAL HISTORY OF ARTHROSCOPY KNEE W/MENISCUS RPR MEDIAL/LATERAL ARTHROSCOPY KNEE DIAGNOSTIC W/WO SYNOVIAL BX SPX ARTHROSCOPY KNEE DIAGNOSTIC W/WO SYNOVIAL BX SPX COLONOSCOPY SCREENING EGD W/O BRSH SPEC VARICIES INJ Substance History Current as of 03/07/25 1032 Smoking Status: Never Passive Exposure: Never Smokeless Tobacco Status: Never Alcohol use: Yes, unspecified volume Comments: rare Drug use: Never Diagnosis: Right flank pain [R10.9] Pre-op diagnosis: Right flank pain [R10.9] Location: MR OR 08 / [facility] OR Surgeons: Bria Stover MD I - PHYSICAL EVALUATION AIRWAY Patient intubated: No. Tracheostomy tube not present Mallampati: II. TM distance: >3 FB. Neck ROM: full ROM without neurological symptoms. Mouth opening: adequate. Short neck: no. Thick neck: no Oliveros present: no Lip Bite Test: II Microretrognathia/Micro nagthia/Recessed Chin: No DENTAL Dental findings: teeth intact and missing tooth/teeth. Additional exam findings: yes. CARDIOVASCULAR Rhythm: regular PULMONARY Breath sounds clear to auscultation. ABDOMINAL Obese: obesity present. II - ANESTHESIA PLAN ASA Score: 2 Anesthetic Plan: general Airway type: LMA The patient is a current smoker. NPO Status: adequate Anesthetic plan additional comments: Admitted to vaping nicotine. Beta Red Administration of chronic beta red medication planned. (prn) Monitoring Plan Monitoring plan: standard ASA. Post Procedure Analgesic Plan Postoperative analgesic plan: multimodal analgesia. Informed Consent Anesthetic risks, benefits, alternatives, personnel and consent discussed: yes. Patient / Responsible [employer] Party agrees to proceed: yes Patient / Surrogate agrees to blood products: Yes Discus (more content not included)... Normal [facility] CBC panel Auto (Bld)on 03-07 Erythrocyte distribution width (RBC) [Ratio] 13.0 % Normal 11.5-15.0 [facility] Comment on above: Order Comment: Cassandra cunningham Type: BLOOD SPECIMEN Ordering Facility: [facility] Address: [address] [place] [address] Performed By: #### 5 8410-2 #### [facility] CLIA [id number] [address] [place] [address] [place] Hematocrit (Bld) [Volume fraction] 39.0 % Normal 36.0-46.0 [facility] Comment on above: Order Comment: Cassandra cunningham Type: BLOOD SPECIMEN Ordering Facility: [facility] Address: [address] [place] [address] Performed By: #### 5 8410-2 #### [facility] CLIA [id number] [address] [place] [address] [place] Hemoglobin (Bld) [Mass/Vol] 12.8 g/dL Normal 11.5-15.5 [facility] Comment on above: Order Comment: Cassandra cunningham Type: BLOOD SPECIMEN Ordering Facility: [facility] Address: [address] [place] [address] Performed By: #### 5 8410-2 #### [facility] CLIA [id number] [address] [place] [address] [place] MCH (RBC) [Entitic mass] 29.8 pg Normal 26.0-34.0 [facility] Comment on above: Order Comment: Speci men Type: BLOOD SPECIMEN Ordering Facility: [facility] Address: [address] [place] [address] Performed By: #### 5 8410-2 #### [facility] CLIA [id number] [address] [place] [address] [place] MCHC (RBC) [Mass/Vol] 32.8 g/dL Normal 30.5-36.0 [facility] Comment on above: Order Comment: Speci men Type: BLOOD SPECIMEN Ordering Facility: [facility] Address: [address] [place] [address] Performed By: #### 5 8410-2 #### [facility] CLIA [id number] [address] [place] [address] [place] MCV (RBC) [Entitic vol] 90.9 fL Normal 80.0-100.0 [facility] Comment on above: Order Comment: Speci men Type: BLOOD SPECIMEN Ordering Facility: [facility] Address: [address] [place] [address] Performed By: #### 5 8410-2 #### [facility] CLIA [id number] [address] [place] [address] [place] Nucleated RBC (Bld) [#/Vol] 10*3/uL Normal <0.01 [facility] Comment on above: Order Comment: Speci men Type: BLOOD SPECIMEN Ordering Facility: [facility] Address: [address] [place] [address] Performed By: #### 5 8410-2 #### [facility] CLIA [id number] [address] [place] [address] [place] Platelet mean volume (Bld) [Entitic vol] 9.3 fL Normal 9.0-12.7 [facility] Comment on above: Order Comment: Speci men Type: BLOOD SPECIMEN Ordering Facility: [facility] Address: [address] [place] [address] Performed By: #### 5 8410-2 #### [facility] CLIA [id number] [address] [place] [address] [place] Platelets (Bld) [#/Vol] 203 10*3/uL Normal 150-400 [facility] Comment on above: Order Comment: Speci men Type: BLOOD SPECIMEN Ordering Facility: [facility] Address: [address] [place] [address] Performed By: #### 5 8410-2 #### [facility] CLIA [id number] [address] [place], [place] [address] [facility] [place] RBC (Bld) [#/Vol] 4.29 10*6/uL Normal 3.90-5.20 [facility] Comment on above: Order Comment: Speci men Type: BLOOD SPECIMEN Ordering Facility: [facility] Address: [address] [place] [address] Performed By: #### 5 8410-2 #### [facility] CLIA [id number] [address] [place], [place] [address] [place] WBC (Bld) [#/Vol] 6.48 10*3/uL Normal 3.70-11.00 [facility] Comment on above: Order Comment: Speci men Type: BLOOD SPECIMEN Ordering Facility: [facility] Address: [address] [place] [address] Performed By: #### 5 8410-2 #### [facility] CLIA [id number] [address] [place], [place] [address] [facility] CONSULTon 03-07-2025 CONSULT HNO ID: [id number] Author: BRIA STOVER MD Service: Urology Author Type: Nurse Practitioner Type: Consults Filed: 03/07/2025 10:34 Note Text: Attestation signed by Bria Stover MD at 03/07/2025 10:34 AM Staff Urologist Note I have personally performed a kexa-iu-eehd assessment of the patient and have reviewed the SANTI note. I performed a substantive portion of the visit including all aspects of the following. My woods finding include: ASSESSMENT and PLAN: Right ureteral calculi. 2 mm distal, 12 mm UPJ stones with hydronephrosis. Pain - not improving. Discussed treatment options. Plan cystoscopy and right ureteral stent insert today. Will need outpatient definitive stone treatment. Microscopic hematuria. Likely due to #1. No further work up at this time Right flank pain. Likely due to #1. Pain control as needed until stent placement History of stones. Previously treated in [place]. No prior investigation into stone causes per patient. Plan outpatient metabolic stone work up. Please note the significant and separately identifiable evaluation and management service performed on the same day as the separately-documented minor procedure. FOLLOW UP: Thank you for this consultation. Will follow while in hospital MEDICAL DECISION MAKING TIME: I spent 60-79 minutes (moderate) on the patient's care, including review of the chart, seeing the patient, answering questions, and documenting in the medical record. SIGNATURE: Bria Stover MD UROLOGY STAFF PHYSICIAN DATE: March 07, 2025 PATIENT NAME: Sri Chacon TIME: 10:32 AM UROLOGY INITIAL CONSULT NOTE SERVICE DATE: 03/07/2025 SERVICE TIME: 9:07 AM REASON FOR CONSULT: obstructing renal calculi with hydro REQUESTING PHYSICIAN: Margi Small HISTORY OF PRESENT ILLNESS Sri Chacon is a 49 year old female who presented to the ED for right flank pain that began 1 week ago. Pain is a sharp, stabbing and is band like. Pain accompanied with n/v and rectal pain. Denies hematuria, dysuria, frequency, urgency, incontinence. Denies constipation, diarrhea, fever, chills. CT showed a 1.2 cm stone in the right renal collecting system with moderate dilatation of the right ureter with a 0.2 cm stone in the right distal ureter. She was given 1 g IV Rocephin, Dilaudid, and Toradol. She was subsequently transferred here for urology services UA: 6-10 WBC, >25 RBC per high-power field. Urine culture pending. No leukocytosis no TAIWO PAST MEDICAL HISTORY Diagnosis Date Calculus of kidney 07/03/2006 Calculus of ureter 03/16/2008 Convulsions (HCC) 02/01/2013 Depression Essential hypertension 01/01/2018 Gallstone 12/25/2017 Hydronephrosis 03/16/2008 Hypothyroidism IBS (irritable bowel syndrome) Lactose intolerance in adult 01/21/2018 Migraine 02/01/2013 Nonrheumatic mitral (valve) prolapse 06/15/2017 Seizure disorder ([facility]) last 04/2021 Traumatic brain injury ([facility]) Unspecified asthma(493.90) Unspecified ectopic without intrauterine (HCC) Ectopic PAST SURGICAL HISTORY Procedure Laterality Date ARTHROSCOPY KNEE DIAGNOSTIC W/WO SYNOVIAL BX SPX Left 06/30/2024 Dr. Mccracken ARTHROSCOPY KNEE DIAGNOSTIC W/WO SYNOVIAL BX SPX Left 10/04/2024 ARTHROSCOPY KNEE W/MENISCUS RPR MEDIAL/LATERAL Left 04/07/2024 Left knee arthroscopy medial meniscus root/posterior horn repair COLONOSCOPY SCREENING 01/20/2025 CYSTOSCOPY,URETEROSCOPY ,LITHOTRIPSY DILATION AND CURETTAGE DXAND/THER NONOBSTETRIC 1995 Dilation AND curettage EGD W/O BRSH SPEC VARICIES INJ [...] Use Vaping status: current everyday user Substances: F (more content not included)... Normal [facility] Comprehensive metabolic 2000 panelon 03-07-2025 Albumin [Mass/Vol] 3.3 g/dL Normal 3.2-5.0 [facility] Comment on above: Order Comment: Speci men Type: BLOOD SPECIMEN Ordering Facility: [facility] Address: [address] [place] [address] Performed By: #### 2 4323-8, 85932-0 #### [facility] CLIA [id number] [address] [place] [address] [place] ALP [Catalytic activity/Vol] 93 U/L Normal 45-117 [facility] Comment on above: Order Comment: Speci men Type: BLOOD SPECIMEN Ordering Facility: [facility] Address: [address] [place] [address] Performed By: #### 2 4323-8, #### [facility] CLIA [id number] [address] [place] [address] [place] ALT [Catalytic activity/Vol] 12 U/L Low 13-61 [facility] Comment on above: Order Comment: Speci men Type: BLOOD SPECIMEN Ordering Facility: [facility] Address: [address] [place] [id number] Result Comment: Resu lts may be falsely depressed after the administration of Sulfasalazine and/or Sulfapyridine. Performed By: #### 2 4323-8, #### [facility] CLIA [id number] [address] [place], [place] [address] [place] Anion gap [Moles/Vol] 8 mmol/L Normal 5-16 [facility] Comment on above: Order Comment: Speci men Type: BLOOD SPECIMEN Ordering Facility: [facility] Address: [address] [place] [address] Performed By: #### 2 4323-8, #### [facility] CLIA [id number] [address] [place] [address] [place] AST [Catalytic activity/Vol] 14 U/L Normal 8-34 [facility] Comment on above: Order Comment: Makedai men Type: BLOOD SPECIMEN Ordering Facility: [facility] Address: [address] [place] [address] Result Comment: Resu lts may be falsely depressed after the administration of Sulfasalazine and/or Sulfapyridine. Performed By: #### 2 4323-8, #### [facility] CLIA [id number] [address] [place], [place] [address] [place] Bilirubin [Mass/Vol] 0.5 mg/dL Normal 0.2-1.0 [facility] Comment on above: Order Comment: Speci men Type: BLOOD SPECIMEN Ordering Facility: [facility] Address: [address] [place], [place] [address] Performed By: #### 2 4323-8, #### [facility] CLIA [id number] [address] [place], [place] [address] [place] Calcium [Mass/Vol] 9.1 mg/dL Normal 8.5-10.5 [facility] Comment on above: Order Comment: Speci men Type: BLOOD SPECIMEN Ordering Facility: [facility] Address: [address] [place] [address] Performed By: #### 2 4323-8, 81073-8 #### [facility] CLIA [id number] [address] [place] [address] [place] Chloride [Moles/Vol] 108 mmol/L High 98-107 [facility] Comment on above: Order Comment: Speci men Type: BLOOD SPECIMEN Ordering Facility: [facility] Address: [address] [place] [address] Performed By: #### 2 4323-8, #### [facility] CLIA [id number] [address] [place], [place] [address] [place] CO2 [Moles/Vol] 27 mmol/L Normal 21-32 [facility] Comment on above: Order Comment: Speci men Type: BLOOD SPECIMEN Ordering Facility: [facility] Address: [address] [place] [address] Performed By: #### 2 4323-8, #### [facility] CLIA [id number] [address] [place], [place] [address] [place] Creatinine [Mass/Vol] 0.71 mg/dL Normal 0.51-0.95 [facility] Comment on above: Order Comment: Speci men Type: BLOOD SPECIMEN Ordering Facility: [facility] Address: [address] [place] [address] Result Comment: Nancy ents receiving either N-Acetylcysteine (NAC) or Metamizole prior to venipuncture, may have falsely depressed results. Performed By: #### 2 4323-8, #### [facility] CLIA [id number] [address] [place], [place] [address] [place] eGFRcr SerPlBld CKD-EPI 2020 104 mL/min/1.73m??? Normal >=60 [facility] Comment on above: Order Comment: Speci men Type: BLOOD SPECIMEN Ordering Facility: [facility] Address: [address] [place] [address] Result Comment: Ninfa mated Glomerular Filtration Rate [...] reflect actual GFR. Performed By: #### 2 4323-8, #### [facility] CLIA [id number] [address] [place], [place] [address] [place] Glucose [Mass/Vol] 94 mg/dL Normal 70-100 [facility] Comment on above: Order Comment: Cassandra cunningham Type: BLOOD SPECIMEN Ordering Facility: [facility] Address: [address] [place], [place] [id number] Result Comment: The [place] [employer] (ADA) provides guidance for cutoff [...] Standards of Medical Care in Diabetes 2016, [place] [employer]. Diabetes Care. 2016.39(Suppl 1). Results may be falsely elevated after the administration of Sulfapyridine. Results may be falsely depressed after the administration of Sulfasalazine. Performed By: #### 2 4323-8, #### [facility] CLIA [id number] [address] [place], [place] [address] [place] Potassium [Moles/Vol] 4.6 mmol/L Normal 3.5-5.1 [facility] Comment on above: Order Comment: Cassandra cunningham Type: BLOOD SPECIMEN Ordering Facility: [facility] Address: [address] [place] [address] Performed By: #### 2 4323-8, #### [facility] CLIA [id number] [address] [place], [place] [address] [place] Protein [Mass/Vol] 6.5 g/dL Normal 6.0-8.5 [facility] Comment on above: Order Comment: Speci men Type: BLOOD SPECIMEN Ordering Facility: [facility] Address: [address] [place] [address] Performed By: #### 2 4323-8, #### [facility] CLIA [id number] [address] [place] [address] [place] Sodium [Moles/Vol] 143 mmol/L Normal 136-145 [facility] Comment on above: Order Comment: Speci men Type: BLOOD SPECIMEN Ordering Facility: [facility] Address: [address] [place] [address] Performed By: #### 2 4323-8, #### [facility] CLIA [id number] [address] [place] [address] [place] Urea nitrogen [Mass/Vol] 10 mg/dL Normal 7-26 [facility] Comment on above: Order Comment: Speci men Type: BLOOD SPECIMEN Ordering Facility: [facility] Address: [address] [place] [address] Performed By: #### 2 4323-8, #### [facility] CLIA [id number] [address] [place] [address] [place] Magnesium SerPl-mCncon 03-07 Magnesium [Mass/Vol] 2.1 mg/dL Normal 1.6-2.6 [facility] Comment on above: Order Comment: Speci men Type: BLOOD SPECIMEN Ordering Facility: [facility] Address: [address] [place] [address] Performed By: #### 2 4323-8, #### [facility] CLIA [id number] [address] [place], [place] [address] [place] OPERATIVE NOon 03-07-2025 OPERATIVE NO HNO ID: [id number] Author: BRIA STOVER MD Service: Urology Author Type: Physician Type: Operative Report Filed: 03/07/2025 11:14 Note Text: [facility] OPERATIVE NOTE/REPORT DETAIL NAME: Sri Chacon Surgery/Procedure Date: 03/07/2025 Procedure(s): Cystoscopy, right ureteral stent insertion Pre-Op/Pre-Procedure Diagnosis: right ureteral calculus Post-Op/Post-Procedure Diagnosis: same Surgeon(s)/Proceduralis t(s) and Manager Heart(s): Surgeons and Role: * Bria Stover MD - Primary Anesthesiologist: Domingo Mccann DO CAA: Sandy Pérez AA Paper Cleaner: Ileana Downs RN Scrub Person: Camelia Lopez RN Operative Indications: Sri Chacon is a 49 year old female with 2 right ureteral calculi. Procedure with risks, benefits and alternatives were reviewed with patient. All questions answered. Patient/guardian gives informed consent to proceed with procedure. Findings: Normal urethra. Bladder surveyed entirely. No stones noted. No mucosal lesions. Bilateral ureteral orifices of normal caliber, location, and number. No bladder trabeculation. Normal bladder volume. Uncomplicated right ureteral stent insertion. Anesthesia: General Estimated Blood Loss: zero cc Specimens: none Drains: right 6 x 24 double J ureteral stent Complications: None immediate Procedure Narrative: The patient was seen and examined in the pre-operative area. A surgical check in was performed per protocol. The patient was taken back to the operative suite. Anesthesia was administered. The patient was transitioned into a dorsal lithotomy position per protocol. All pressure points were padded. Prepped and draped in the usual sterile fashion. A time-out was performed. A 22 Congolese cystoscope was passed into the urinary bladder. The bladder and urethra were visualized in their entirety with the findings as above. Both ureteral orifices were identified and found to be of normal caliber location and number. Laterality confirmation performed. I then advanced a 0.035 wire into the right collecting system. The wire curled in the renal pelvis. I then advanced a right double-J ureteral stent over the Glidewire and into position in the renal pelvis. The wire was then removed and good curl was noted proximally by fluoroscopy and a bladder by direct visualization. The stent appeared in good position and was draining well. Hemostasis was excellent. The patient's bladder was drained and the cystoscope was removed. . The patient tolerated the procedure well. Surgical counts were correct. The patient was awoken from anesthesia and transferred to the transport bed without incident. Disposition: The patient was transferred to the PACU in stable condition. Surgical findings were discussed with the patient's available contact per the patient's wishes. Plan of care: Return to nursing floor Dr. Stover performed all of the woods and critical portions of the procedure with the printing assistant. Dr. Stover was immediately available for all other portions of the procedure. LOG ID: [id number] Incision/Procedure Start Time: 11:01 AM Incision Close/Procedure End Time: 11:05 AM SIGNATURE: Bria Stover MD PATIENT NAME: Sri Chacon DATE: March 07, 2025 TIME: 11:13 AM Normal [facility] Urinalysis complete panel (U )on 03-07-2025 Bacteria LM.HPF (Urine sed) [#/Area] None Seen Normal None Seen [facility] Comment on above: Order Comment: Speci men Type: URINE SPECIMEN Ordering Facility: [facility] Address: [address] [place] [address] Performed By: #### 2 4356-8 #### [facility] CLIA [id number] [address] [place] [address] [place] Bilirubin Ql (U) Negative Normal Negative [facility] Comment on above: Order Comment: Speci men Type: URINE SPECIMEN Ordering Facility: [facility] Address: [address] [place] [address] Performed By: #### 2 4356-8 #### [facility] CLIA [id number] [address] [place] [address] [place] Clarity (Unsp spec) Hazy Abnormal Clear [facility] Comment on above: Order Comment: Speci men Type: URINE SPECIMEN Ordering Facility: [facility] Address: [address] [place] [address] Performed By: #### 2 4356-8 #### [facility] CLIA [id number] [address] [place] [address] [place] Color (U) Yellow Normal Yellow [facility] Comment on above: Order Comment: Speci men Type: URINE SPECIMEN Ordering Facility: [facility] Address: [address] [place] [address] Performed By: #### 2 4356-8 #### [facility] CLIA [id number] [address] [place] [address] [place] Epithelial cells LM.HPF (Urine sed) [#/Area] Few Normal [facility] Comment on above: Order Comment: Speci men Type: URINE SPECIMEN Ordering Facility: [facility] Address: [address] [place] [address] Performed By: #### 2 4356-8 #### [facility] CLIA [id number] [address] [place] [address] [place] Glucose Test strip (U) [Mass/Vol] Negative Normal Negative [facility] Comment on above: Order Comment: Speci men Type: URINE SPECIMEN Ordering Facility: [facility] Address: [address] [place] [address] Performed By: #### 2 4356-8 #### [facility] CLIA [id number] [address] [place] [address] [place] Hemoglobin Ql (U) 3+ Abnormal Negative [facility] Comment on above: Order Comment: Speci men Type: URINE SPECIMEN Ordering Facility: [facility] Address: [address] [place] [address] Performed By: #### 2 4356-8 #### [facility] CLIA [id number] [address] [place] [address] [place] Ketones Ql (U) 2+ Abnormal Negative [facility] Comment on above: Order Comment: Speci men Type: URINE SPECIMEN Ordering Facility: [facility] Address: [address] [place] [address] Performed By: #### 2 4356-8 #### [facility] CLIA [id number] [address] [place] [address] [place] Leukocyte esterase Test strip Ql (U) Negative Normal Negative [facility] Comment on above: Order Comment: Speci men Type: URINE SPECIMEN Ordering Facility: [facility] Address: [address] [place] [address] Performed By: #### 2 4356-8 #### [facility] CLIA [id number] [address] [place] [address] [place] Nitrite Ql (U) Negative Normal Negative [facility] Comment on above: Order Comment: Speci men Type: URINE SPECIMEN Ordering Facility: [facility] Address: [address] [place] [address] Performed By: #### 2 4356-8 #### [facility] CLIA [id number] [address] [place] [address] [place] pH (U) 5.5 [pH] Normal 5.0-8.0 [facility] Comment on above: Order Comment: Speci men Type: URINE SPECIMEN Ordering Facility: [facility] Address: [address] [place] [address] Performed By: #### 2 4356-8 #### [facility] CLIA [id number] [address] [place] [address] [place] Protein (U) [Mass/Vol] 1+ Abnormal Negative [facility] Comment on above: Order Comment: Speci men Type: URINE SPECIMEN Ordering Facility: [facility] Address: [address] [place] [address] Performed By: #### 2 4356-8 #### [facility] CLIA [id number] [address] [place] [address] [place] RBC LM.HPF (Urine sed) [#/Area] /[HPF] Abnormal 0-3 /HPF [facility] Comment on above: Order Comment: Speci men Type: URINE SPECIMEN Ordering Facility: [facility] Address: [address] [place] [address] Performed By: #### 2 4356-8 #### [facility] CLIA [id number] [address] [place] [address] [place] Specific gravity (U) [Rel density] 1.030 Normal 1.005-1.030 [facility] Comment on above: Order Comment: Speci men Type: URINE SPECIMEN Ordering Facility: [facility] Address: [address] [place] [address] Performed By: #### 2 4356-8 #### [facility] CLIA [id number] [address] [place] [address] [place] Urobilinogen Ql (U) Negative Normal Negative [facility] Comment on above: Order Comment: Speci men Type: URINE SPECIMEN Ordering Facility: [facility] Address: [address] [place] [address] Performed By: #### 2 4356-8 #### [facility] CLIA [id number] [address] [place] [address] [place] WBC LM.HPF (Urine sed) [#/Area] 6-10 /HPF Abnormal 0-5 /HPF [facility] Comment on above: Order Comment: Speci men Type: URINE SPECIMEN Ordering Facility: [facility] Address: [address] [place] [address] Performed By: #### 2 4356-8 #### [facility] CLIA [id number] [address] [place] [address] [place] XR ABDOMEN 1V SUPINEon 03-07 XR ABDOMEN 1V SUPINE * * *Final Report* * * DATE OF EXAM: Mar 07 2025 9:40AM RHX 5289 - XR ABDOMEN 1V SUPINE / PROCEDURE REASON: Kidney stone suspected * * * * Physician Interpretation * * * * XR ABDOMEN 1V SUPINE Ordering Physician: DUONG SANDHU 03/07/2025 9:40 AM ABDOMEN Clinical Statement: Renal calculus FINDINGS: 2 images of the abdomen and pelvis were obtained and compared to a prior study dated 08/27/[address] examination from an outside institution dated 03/06/2025. The bowel gas pattern is unremarkable. There is no abnormal gaseous distention. There is a 15 mm calculus in the region of the right renal pelvis. No other calculi are identified. IMPRESSION: 15 mm calculus in the region of the right renal pelvis. Potato Chip Sorter: [place]OR[place] Transcribe Date/Time: Mar 07 2025 9:48A Dictated by : WARD SUTTON MD This examination was interpreted and the report reviewed and electronically signed by: WARD SUTTON MD on Mar 07 2025 9:49AM EST [id number] Normal [facility] Abdomen/Pelvis W IV Cont ONL Yon 03-06-2025 Abdomen/Pelvis W IV Cont ONLY [facility] Imaging Services [address] [place], [place] [address] Abdomen/Pelvis W IV Cont ONLY MR#: [id number] Acct: [id number] Name: SRI CHACON Rep #: [id number] : 1975 F 49 From: Ochoa Matos MD PCP: Jimenez Cabrera, [employer]ER[employer] SUPERVISOR-C Status: REG ER Study: Abdomen/Pelvis W IV Cont ONLY Date of Exam: Exam# [id number] Ordering Dr: Hailee Weiss DO PROCEDURE: ABDOMEN/PELVIS W IV CONT [...] base, image 99/125. There is no stone or hydronephrosis on the left. Bladder: Unremarkable Reproductive Organs: [...] Weiss by Dr. Matos at the time of dictation. Reading Location: [facility] CC: ANN Cabrera; Dr. Hailee Weiss DO Potato Chip Sorter: Signed Normal [facility] Absolute lymphocyte countOrd ered By: Hailee Weiss on 03-06-2025 Lymphocytes Auto (Unsp spec) [#/Vol] 1.89 10*3/uL 0.83-4.51 [facility] Absolute neutrophil countOrd ered By: Hailee Weiss on 03-06-2025 Neutrophils (Bld) [#/Vol] 3.8 10*3/uL 2.0-7.7 [facility] Anion gap in Serum or Plasma Ordered By: Hailee Weiss on 03-06-2025 Anion gap [Moles/Vol] 10 mmol/L 5-15 [facility] Automated lymphocyte count a s percentage of total leukocytesOrdered By: Hailee Weiss on 03-06-2025 Lymphocytes/100 WBC Auto (Unsp spec) 27.9 % 19-41 [facility] BUN/creatinine ratioOrdered By: Hailee Weiss on 03-06-2025 Urea nitrogen/Creatinine [Mass ratio] 17.4 mg/mg 10-20 [facility] Basophil percentageOrdered B y: Hailee Weiss on 03-06-2025 Basophils/100 WBC (Bld) 0.4 % 0-1 [facility] Bilirubin Test strip Ql (U)O rdered By: Hailee Weiss on 03-06-2025 Bilirubin Ql (U) Negative Negative [facility] Bilirubin, totalOrdered By: Hailee Weiss on 03-06-2025 Bilirubin [Mass/Vol] 0.49 mg/dL 0.00-1.30 [facility] CBC W/Diff, Automatedon 02-08 Absolute Lymph 1.89 X10 3/uL Normal 0.83-4.51 [facility] Comment on above: Order Comment: REDRA W. PREVIOUS SPECIMEN REJECTED DUE TO SPECIMEN BEING CLOTTED. 03/06/251128 Brenden Jackson Performed By: #### L 100.0100 #### [facility] [address] [place], [address] Absolute Neut 3.8 X10 3/uL Normal 2.0-7.7 [facility] Comment on above: Order Comment: REDRA W. PREVIOUS SPECIMEN REJECTED DUE TO SPECIMEN BEING CLOTTED. 03/06/251128 Brenden Jackson Performed By: #### L 100.0100 #### [facility] [address] [place], [address] Basophils/100 WBC (Bld) 0.4 % Normal 0-1 [facility] Comment on above: Order Comment: REDRA W. PREVIOUS SPECIMEN REJECTED DUE TO SPECIMEN BEING CLOTTED. 03/06/251128 Brenden Jackson Performed By: #### L 100.0100 #### [facility] [address] [place], [address] Eosinophils/100 WBC (Bld) 6.2 % High 0-5 [facility] Comment on above: Order Comment: REDRA W. PREVIOUS SPECIMEN REJECTED DUE TO SPECIMEN BEING CLOTTED. 03/06/251128 Brenden Jackson Performed By: #### L 100.0100 #### [facility] [address] [place], [address] Erythrocyte distribution width (RBC) [Ratio] 12.9 % Normal 11.6-14.6 [facility] Comment on above: Order Comment: REDRA W. PREVIOUS SPECIMEN REJECTED DUE TO SPECIMEN BEING CLOTTED. 03/06/251128 Brenden Jackson Performed By: #### L 100.0100 #### [facility] [address] [place], [address] Hematocrit (Bld) [Volume fraction] 40.0 % Normal 37-47 [facility] Comment on above: Order Comment: REDRA W. PREVIOUS SPECIMEN REJECTED DUE TO SPECIMEN BEING CLOTTED. 03/06/251128 Brenden Jackson Performed By: #### L 100.0100 #### [facility] [address] [place], [address] Hemoglobin (Bld) [Mass/Vol] 13.2 g/dL Normal 12.0-15.0 [facility] Comment on above: Order Comment: REDRA W. PREVIOUS SPECIMEN REJECTED DUE TO SPECIMEN BEING CLOTTED. 03/06/251128 Brenden Jackson Performed By: #### L 100.0100 #### [facility] [address] [place], [address] IG% 0.400 Normal 0.0-0.9 [facility] Comment on above: Order Comment: REDRA W. PREVIOUS SPECIMEN REJECTED DUE TO SPECIMEN BEING CLOTTED. 03/06/251128 Brenden Jackson Result Comment: IG% - Immature Granulocytes (promyelocytes, myelocytes and metamyelocytes) > 1% indicates that a LEFT SHIFT is Present. Performed By: #### L 100.0100 #### [facility] [address] [place], [address] Lymphocytes/100 WBC (Bld) 27.9 % Normal 19-41 [facility] Comment on above: Order Comment: REDRA W. PREVIOUS SPECIMEN REJECTED DUE TO SPECIMEN BEING CLOTTED. 03/06/251128 Brenden Jackson Performed By: #### L 100.0100 #### [facility] [address] [place], [address] MCH (RBC) [Entitic mass] 29.4 pg Normal 27.0-32.0 [facility] Comment on above: Order Comment: REDRA W. PREVIOUS SPECIMEN REJECTED DUE TO SPECIMEN BEING CLOTTED. 03/06/251128 Brenden Jackson Performed By: #### L 100.0100 #### [facility] [address] [place], [address] MCHC (RBC) [Mass/Vol] 33.0 g/dL Normal 32-36 [facility] Comment on above: Order Comment: REDRA W. PREVIOUS SPECIMEN REJECTED DUE TO SPECIMEN BEING CLOTTED. 03/06/251128 Brenden Jackson Performed By: #### L 100.0100 #### [facility] [address] [place], [address] MCV (RBC) [Entitic vol] 89.1 fL Normal 81-99 [facility] Comment on above: Order Comment: REDRA W. PREVIOUS SPECIMEN REJECTED DUE TO SPECIMEN BEING CLOTTED. 03/06/251128 Brenden Jackson Performed By: #### L 100.0100 #### [facility] [address] [place], [address] Monocytes/100 WBC (Bld) 8.9 % Normal 0-10 [facility] Comment on above: Order Comment: REDRA W. PREVIOUS SPECIMEN REJECTED DUE TO SPECIMEN BEING CLOTTED. 03/06/251128 Brenden Jackson Performed By: #### L 100.0100 #### [facility] [address] [place], [address] Neutrophils/100 WBC (Bld) 56.2 % Normal 47-70 [facility] Comment on above: Order Comment: REDRA W. PREVIOUS SPECIMEN REJECTED DUE TO SPECIMEN BEING CLOTTED. 03/06/251128 Brenden Jackson Performed By: #### L 100.0100 #### [facility] [address] [place], [address] Nucleated RBC (Bld) [#/Vol] 0 10*3/uL Normal 0-5 [facility] Comment on above: Order Comment: REDRA W. PREVIOUS SPECIMEN REJECTED DUE TO SPECIMEN BEING CLOTTED. 03/06/251128 Brenden Jackson Performed By: #### L 100.0100 #### [facility] [address] [place], [address] Platelet mean volume (Bld) [Entitic vol] 9.2 fL Normal 6.2-12.0 [facility] Comment on above: Order Comment: REDRA W. PREVIOUS SPECIMEN REJECTED DUE TO SPECIMEN BEING CLOTTED. 03/06/251128 Brenden Jackson Performed By: #### L 100.0100 #### [facility] [address] [place], [address] Platelets (Bld) [#/Vol] 223 10*3/uL Normal 150-450 [facility] Comment on above: Order Comment: REDRA W. PREVIOUS SPECIMEN REJECTED DUE TO SPECIMEN BEING CLOTTED. 03/06/251128 Brenden Jackson Performed By: #### L 100.0100 #### [facility] [address] [place], [address] RBC (Bld) [#/Vol] 4.49 10*6/uL Normal 4.2-5.4 [facility] Comment on above: Order Comment: REDRA W. PREVIOUS SPECIMEN REJECTED DUE TO SPECIMEN BEING CLOTTED. 03/06/251128 Brenden Jackson Performed By: #### L 100.0100 #### [facility] [address] [place], [address] RDW SD 42.0 fl Normal 35.1-43.9 [facility] Comment on above: Order Comment: REDRA W. PREVIOUS SPECIMEN REJECTED DUE TO SPECIMEN BEING CLOTTED. 03/06/251128 Brenden Jackson Performed By: #### L 100.0100 #### [facility] [address] [place], [address] WBC (Bld) [#/Vol] 6.8 10*3/uL Normal 4.4-11.0 [facility] Comment on above: Order Comment: REDRA W. PREVIOUS SPECIMEN REJECTED DUE TO SPECIMEN BEING CLOTTED. 03/06/251128 Brenden R Stoner. Performed By: #### L 100.0100 #### [facility] [address] [place], [address] Absolute Neut Normal 2.0-7.7 [facility] Comment on above: Result Comment: This specimen has been REJECTED due to Laboratory criteria: Clotted. GRETA GAONA (ER) has been notified of need of recollection. 03/06/25 1128 Brenden R Stoner Performed By: #### M 100.7900, L501.2450, L100.0100, L500.4050 #### [facility] [address] [place], [address] HCT Normal 37-47 [facility] Comment on above: Result Comment: This specimen has been REJECTED due to Laboratory criteria: Clotted. GRETA GAONA (ER) has been notified of need of recollection. 03/06/258 Brenden R Stoner Performed By: #### M 100.7900, L501.2450, L100.0100, L500.4050 #### [facility] [address] [place], [address] HGB Normal 12.0-15.0 [facility] Comment on above: Result Comment: This specimen has been REJECTED due to Laboratory criteria: Clotted. GRETA GAONA (ER) has been notified of need of recollection. 03/06/25 1128 Brenden R Stoner Performed By: #### M 100.7900, L501.2450, L100.0100, L500.4050 #### [facility] [address] [place], [address] MCH Normal 27.0-32.0 [facility] Comment on above: Result Comment: This specimen has been REJECTED due to Laboratory criteria: Clotted. GRETA GAONA (ER) has been notified of need of recollection. 03/06/25 1128 Brenden R Stoner Performed By: #### M 100.7900, L501.2450, L100.0100, L500.4050 #### [facility] [address] [place], [address] MCHC Normal 32-36 [facility] Comment on above: Result Comment: This specimen has been REJECTED due to Laboratory criteria: Clotted. GRETA GAONA (ER) has been notified of need of recollection. 03/06/25 1128 Brenden R Stoner Performed By: #### M 100.7900, L501.2450, L100.0100, L500.4050 #### [facility] [address] [place], [address] MCV Normal 81-99 [facility] Comment on above: Result Comment: This specimen has been REJECTED due to Laboratory criteria: Clotted. GRETA GAONA (ER) has been notified of need of recollection. 03/06/25 1128 Brenden R Stoner Performed By: #### M 100.7900, L501.2450, L100.0100, L500.4050 #### [facility] [address] [place], [address] NEUT% Normal 47-70 [facility] Comment on above: Result Comment: This specimen has been REJECTED due to Laboratory criteria: Clotted. GRETA GAONA (ER) has been notified of need of recollection. 03/06/258 Brenden R Stoner Performed By: #### M 100.7900, L501.2450, L100.0100, L500.4050 #### [facility] [address] [place], [address] PLT Normal 150-450 [facility] Comment on above: Result Comment: This specimen has been REJECTED due to Laboratory criteria: Clotted. GRETA GAONA (ER) has been notified of need of recollection. 03/06/25 1128 Brenden R Stoner Performed By: #### M 100.7900, L501.2450, L100.0100, L500.4050 #### [facility] [address] [place], [address] RBC Normal 4.2-5.4 [facility] Comment on above: Result Comment: This specimen has been REJECTED due to Laboratory criteria: Clotted. GRETA GAONA (ER) has been notified of need of recollection. 03/06/258 Brenden R Stoner Performed By: #### M 100.7900, L501.2450, L100.0100, L500.4050 #### [facility] [address] [place], [address] RDW CV Normal 11.6-14.6 [facility] Comment on above: Result Comment: This specimen has been REJECTED due to Laboratory criteria: Clotted. GRETA GAONA (ER) has been notified of need of recollection. 03/06/258 Brenden R Stoner Performed By: #### M 100.7900, L501.2450, L100.0100, L500.4050 #### [facility] [address] [place], [address] RDW SD Normal 35.1-43.9 [facility] Comment on above: Result Comment: This specimen has been REJECTED due to Laboratory criteria: Clotted. GRETA GAONA (ER) has been notified of need of recollection. 03/06/258 Brenden R Stoner Performed By: #### M 100.7900, L501.2450, L100.0100, L500.4050 #### [facility] [address] [place], [address] WBC Normal 4.4-11.0 [facility] Comment on above: Result Comment: This specimen has been REJECTED due to Laboratory criteria: Clotted. GRETA GAONA (ER) has been notified of need of recollection. 03/06/25 1128 Brenden R Stoner Performed By: #### M 100.7900, L501.2450, L100.0100, L500.4050 #### [facility] [address] [place], [address] CNOVon 03-06-2025 CNOV Normal [facility] Carbon dioxide, total [Moles /volume] in Central venous bloodOrdered By: Hailee Weiss on 03-06-2025 CO2 [Moles/Vol] 23.5 mmol/L 21.0-32.0 [facility] Chloride assayOrdered By: Zenon Weiss on 03-06-2025 Chloride [Moles/Vol] 106 mmol/L 98-108 [facility] Comprehensive Metabolic Prof ilon 03-06-2025 Albumin [Mass/Vol] 3.9 g/dL Normal 3.5-5.0 [facility] Comment on above: Performed By: #### M 100.7900, L501.2450, L100.0100, L500.4050 #### [facility] [address] [place], [address] Albumin/Globulin [Mass ratio] 1.2 {ratio} Normal 0.9-2.4 [facility] Comment on above: Performed By: #### M 100.7900, L501.2450, L100.0100, L500.4050 #### [facility] [address] [place], [address] ALK PHOS 104 U/L Normal 35-104 [facility] Comment on above: Performed By: #### M 100.7900, L501.2450, L100.0100, L500.4050 #### [facility] [address] [place], [address] ALT [Catalytic activity/Vol] 14 U/L Normal <=34 [facility] Comment on above: Result Comment: Hemo lysis present, Results??could be affected. ?? Performed By: #### M 100.7900, L501.2450, L100.0100, L500.4050 #### [facility] [address] [place], [address] AST [Catalytic activity/Vol] 27 U/L Normal <=31 [facility] Comment on above: Result Comment: Hemo lysis present, Results??could be affected. ?? Performed By: #### M 100.7900, L501.2450, L100.0100, L500.4050 #### [facility] [address] [place], [address] Bilirubin [Mass/Vol] 0.49 mg/dL Normal 0.00-1.30 [facility] Comment on above: Performed By: #### M 100.7900, L501.2450, L100.0100, L500.4050 #### [facility] [address] [place], [address] BUN/CRE 17.4 RATIO Normal 10-20 [facility] Comment on above: Performed By: #### M 100.7900, L501.2450, L100.0100, L500.4050 #### [facility] [address] [place], [address] Calcium [Mass/Vol] 9.2 mg/dL Normal 7.6-11.0 [facility] Comment on above: Performed By: #### M 100.7900, L501.2450, L100.0100, L500.4050 #### [facility] [address] [place], [address] Chloride [Moles/Vol] 106 mmol/L Normal 98-108 [facility] Comment on above: Performed By: #### M 100.7900, L501.2450, L100.0100, L500.4050 #### [facility] [address] [place], [address] CO2 [Moles/Vol] 23.5 mmol/L Normal 21.0-32.0 [facility] Comment on above: Performed By: #### M 100.7900, L501.2450, L100.0100, L500.4050 #### [facility] [address] [place], [address] Creatinine [Mass/Vol] 0.76 mg/dL Normal 0.70-1.20 [facility] Comment on above: Performed By: #### M 100.7900, L501.2450, L100.0100, L500.4050 #### [facility] [address] [place], [address] ECRCL 76.11 ml/min Normal 50-250 [facility] Comment on above: Performed By: #### M 100.7900, L501.2450, L100.0100, L500.4050 #### [facility] [address] [place], [address] GAP 10 Normal 5-15 [facility] Comment on above: Performed By: #### M 100.7900, L501.2450, L100.0100, L500.4050 #### [facility] [address] [place], [address] GFR/1.73 sq M.predicted among non-blacks MDRD (S/P/Bld) [Vol rate/Area] 96 mL/min/{1.73_m2} Normal >60 [facility] Comment on above: Result Comment: mL/m in/1.73m2 CKD-EPI Creatinine Equation (2020) Performed By: #### M 100.7900, L501.2450, L100.0100, L500.4050 #### [facility] [address] [place], [address] Globulin (S) [Mass/Vol] 3.2 g/dL Normal 2.2-4.2 [facility] Comment on above: Performed By: #### M 100.7900, L501.2450, L100.0100, L500.4050 #### [facility] [address] [place], [address] Glucose [Mass/Vol] 93 mg/dL Normal 70-99 [facility] Comment on above: Performed By: #### M 100.7900, L501.2450, L100.0100, L500.4050 #### [facility] [address] [place], [address] Potassium [Moles/Vol] 4.4 mmol/L Normal 3.3-5.1 [facility] Comment on above: Result Comment: Hemo lysis present, Results??could be affected. ?? Performed By: #### M 100.7900, L501.2450, L100.0100, L500.4050 #### [facility] [address] [place], [address] Sodium [Moles/Vol] 140 mmol/L Normal 133-145 [facility] Comment on above: Performed By: #### M 100.7900, L501.2450, L100.0100, L500.4050 #### [facility] [address] [place], [address] T PROT 7.2 g/dL Normal 5.9-8.4 [facility] Comment on above: Performed By: #### M 100.7900, L501.2450, L100.0100, L500.4050 #### [facility] [address] [place], [address] Urea nitrogen [Mass/Vol] 13 mg/dL Normal 4-19 [facility] Comment on above: Performed By: #### M 100.7900, L501.2450, L100.0100, L500.4050 #### [facility] [address] [place], [address] Emergency Department Summary on 03-06-2025 Emergency Department Summary [facility] Medical Records Department [address] [place] [address] Emergency Department Summary 03/06/25 MR#: [id number] Acct: [id number] Name: OSWALDOSRI Rep #: [id number] : 1975 49 From: Hailee Weiss DO PCP: Jimenez Cabrera NP-Emeli Status:REG ER Location: ED HPI HPI - GI History of Present Illness Chief Complaint: Abd Pain Informant: patient Narrative Narrative: Patient is a 49-year-old female with history of renal stones, depression, hypertension, gallstones, hypothyroidism, IBS, migraines, traumatic brain injury, chronic pain (stomach and bilateral knees as well as migraines) multiple knee surgeries and prior hysterectomy presenting with right sided abdominal pain. States the pain started about 3 days ago. She states the pain is in her right back and radiates around her stomach. She describes it as a sharp and stabbing pain that also feels pulling. She is a feels different than her kidney stone pain. Denies associated rash. Also notes around same time she developed bright red blood per rectum. She states she has pain when she wipes even if she does not have a bowel movement. States her bowel movements are okay denies any hard or painful bowel movements. Denies any clots. Has never had this before. She states the pain is constant with no aggravating or alleviating factors. No urinary symptoms such as dysuria, hematuria or frequency. Denies any vaginal bleeding. Has tried [id number] Tylenol and ibuprofen with no relief. Came for further evaluation. Does report 1 transient fever when this first started. No other complaints or concerns reported at this time. Had colonoscopy on 01/20/2025???procedure report reviewed. Performed with Dr. Gamez. She found nonbleeding internal hemorrhoids and one 6 to 10 mm polyp of the rectum which was removed. [facility] Medical History Tear of medial meniscus of left knee Migraines History of epilepsy Home Medications ???Medication ???Instructions ???Recorded ???Last Taken ???Type rimegepant 75 mg disintegrating 75 mg PO Q48H 12/16/20 Unknown His tory tablet (Nurtec ODT) lamotrigine 200 mg tablet,extended 200 mg PO TID 03/18/21 03/05/25 History release 24 hr trazodone 50 mg tablet 50 mg PO DAILY 04/05/21 03/05/25 H istory sertraline 50 mg tablet (Zoloft) 50 mg PO DAILY 03/27/22 03/05/25 H istory celecoxib 200 mg capsule 200 mg PO BID Pain #30 caps 03/05/25 Rx levothyroxine 88 mcg tablet 88 mcg PO DAILY 03/06/25 03/05/25 History Allergy/AdvReac Type Severity Reaction Status [...] pain and other Details: Bright red blood per rectum ; Denies diarrhea, melena, nausea or vomiting [...] however patient reports pain in her right (more content not included)... Normal [facility] Eosinophil percentageOrdered By: Hailee Weiss on 03-06-2025 Eosinophils/100 WBC (Bld) 6.2 % High 0-5 [facility] Erythrocyte distribution wid th ratioOrdered By: Haileemyrtle Weiss on 03-06-2025 Erythrocyte distribution width (RBC) [Ratio] 12.9 % 11.6-14.6 [facility] Erythrocyte distribution wid th standard deviationOrdered By: Hailee Weiss on 03-06-2025 Erythrocyte distribution width (RBC) [Ratio] 42.0 fl 35.1-43.9 [facility] Glomerular filtration rate ( GFR) estimation/1.73 sq m using serum, plasma, or whole bOrdered By: Hailee Weiss on 03-06-2025 GFR/1.73 sq M.predicted among non-blacks MDRD (S/P/Bld) [Vol rate/Area] 96 mL/min/{1.73_m2} >60 [facility] Comment on above: mL/min/1.73m2 CKD-EP I Creatinine Equation (2020) HISTORY PHYSICALon HISTORY PHYSICAL HNO ID: [id number] Author: JAMES RIVAS MD Service: Hospital Medicine Author Type: Nurse Practitioner Type: H&P Filed: 03/07/2025 11:59 Note Text: Attestation signed by James Rivas MD at 03/07/2025 11:59 AM I have reviewed the documentation below obtained and documented by the Nurse Practitioner. I have personally performed a face to face assessment of the patient and I have discussed the case and management of the patient's care. HISTORY AND PHYSICAL EXAMINATION SERVICE DATE: 03/06/2025 SERVICE TIME: 11:43 PM PRIMARY CARE PHYSICIAN: Iveth Hernandez APRN.COMMUNITY HEALTH PLANNING DIRECTOR SUBJECTIVE: CHIEF COMPLAINT: Right flank pain HPI: This is a 49 year old female with a past medical history significant for history of kidney stones, hypertension, hypothyroidism, IBS, TBI, and depression who presents as a direct admission from [facility] with a diagnosis of hydronephrosis with urinary obstruction due to renal calculus after she presented there with right flank pain. The patient reports that she began experiencing right lower quadrant abdominal pain this am that radiated and became more localized to the right flank accompanied by nausea. She further reports she noticed cecy red rectal bleeding multiple times while wiping for the past day as well. She denies any fever, chills, shortness of breath, chest pain, constipation, or dysuria. In the ER, lab work unremarkable. CT showed a 1.2 cm stone in the right renal collecting system with moderate dilatation of the right ureter with a 0.2 cm stone in the right distal ureter. She was given 1 g IV Rocephin, Dilaudid, and Toradol. She was subsequently transferred here for urology services. She will be admitted to the medical unit for observation for further evaluation and treatment for IV fluid hydration with a consultation to urology. FUNCTIONAL STATUS: Independent PAST MEDICAL HISTORY Diagnosis Date Calculus of kidney 07/03/2006 Calculus of ureter 03/16/2008 Convulsions (HCC) 02/01/2013 Depression Essential hypertension 01/01/2018 Gallstone 12/25/2017 Hydronephrosis 03/16/2008 Hypothyroidism IBS (irritable bowel syndrome) Lactose intolerance in adult 01/21/2018 Migraine 02/01/2013 Nonrheumatic mitral (valve) prolapse 06/15/2017 Seizure disorder ([facility]) last 04/2021 Traumatic brain injury ([facility]) Unspecified asthma(493.90) Unspecified ectopic without intrauterine (HCC) Ectopic PAST SURGICAL HISTORY Procedure Laterality Date ARTHROSCOPY KNEE DIAGNOSTIC W/WO SYNOVIAL BX SPX Left 06/30/2024 Dr. Mccracken ARTHROSCOPY KNEE DIAGNOSTIC W/WO SYNOVIAL BX SPX Left 10/04/2024 ARTHROSCOPY KNEE W/MENISCUS RPR MEDIAL/LATERAL Left 04/07/2024 Left knee arthroscopy medial meniscus root/posterior horn repair COLONOSCOPY SCREENING 01/20/2025 CYSTOSCOPY,URETEROSCOPY ,LITHOTRIPSY DILATION AND CURETTAGE DXAND/THER NONOBSTETRIC 1995 Dilation AND curettage EGD W/O BRSH SPEC VARICIES INJ [...] use: Yes Comment: rare Drug use: Never pregabalin (LYRICA) 50 mg capsule, Take 1 capsule by mouth three times a day for 90 days., Disp: 90 capsule, Rfl: 2, 03/05/2025 Evening levothyroxine (SYNTHROID) 88 mcg tablet, Take 1 tablet by mouth once daily., Disp: 90 tablet, Rfl: 1, 03/05/2025 Evening ergocalciferol 50,000 unit capsule (VITAMIN D2, DRISDOL), Take 1 capsule by mouth one time a week., Disp: 12 capsule, Rfl: 0, 03/06/[address] (PROTONIX) 20 mg tablet, Take 1 tablet by mouth daily before breakfast., Disp: 90 tablet, Rfl: 0, 03/05/2025 Evening Syringe with Needle, Disp, 3 mL 23 x 1, 1 Each as directed., Disp: 4 Each, Rfl: 5, 03/05/2025 Evening lamoTRIgine (LAMICTAL) 100 mg tablet, Take 1 tablet by mouth two times a day. To start on or after 08/10/2024, after completing titration schedule., Disp: 180 tablet, Rfl: 1, 03/05/2025 Evening FLUoxetine (PROZAC) 40 mg capsule, Take 1 capsule by mout (more content not included)... Normal [facility] Hematocrit Auto (Bld) [Volum e fraction]Ordered By: Hailee Weiss on 03-06-2025 Hematocrit (Bld) [Volume fraction] 40.0 % 37-47 [facility] Hemoglobin measurementOrdere d By: Hailee Weiss on 03-06-2025 Hemoglobin (Bld) [Mass/Vol] 13.2 g/dL 12.0-15.0 [facility] Immature granulocytes/100 WB C Auto (Bld)Ordered By: Hailee Weiss on 03-06-2025 Immature granulocytes/100 WBC (Bld) 0.400 % 0.0-0.9 [facility] Comment on above: IG% - Immature Granu locytes (promyelocytes, myelocytes and metamyelocytes) > 1% indicates that a LEFT SHIFT is Present. Ketones Test strip Ql (U)Ord ered By: Hailee Weiss on 03-06-2025 Ketones Ql (U) Negative Negative [facility] Laboratory - Chemistry and C hemistry - challengeOrdered By: Hailee Weiss on 03-06-2025 AST [Catalytic activity/Vol] 27 U/L <32 [facility] Comment on above: Hemolysis present, R esults could be affected. Lipaseon 03-06-2025 Lipase [Catalytic activity/Vol] 24 U/L Normal 13-75 [facility] Comment on above: Result Comment: Joseph ocampo note: LIPASE revised reference range effective 22. New Lipase methodology. Expected to produce lower values than the previous assay method. NEW Reference Range: 13 - 75 U/L Performed By: #### M 100.7900, L501.2450, L100.0100, L500.4050 #### [facility] [address] [place], [place], [id number] Lipase measurementOrdered By : Hailee Weiss on 03-06-2025 Lipase [Catalytic activity/Vol] 24 U/L 13-75 [facility] Comment on above: Please note:LIPASE r evised reference range effective 22. New Lipase methodology. Expected to produce lower values than the previous assay method. NEW Reference Range: 13 - 75 U/L MCV (mean corpuscular volume ) determinationOrdered By: Hailee Weiss on 03-06-2025 MCV (RBC) [Entitic vol] 89.1 fL 81-99 [facility] Mean corpuscular hemoglobin (MCH) determinationOrdered By: Hailee Weiss on 03-06-2025 MCH (RBC) [Entitic mass] 29.4 pg 27.0-32.0 [facility] Mean corpuscular hemoglobin concentration (MCHC) determinationOrdered By: Hailee Weiss on 03-06-2025 MCHC (RBC) [Mass/Vol] 33.0 g/dL 32-36 [facility] Mean platelet volume determi nationOrdered By: Hailee Weiss on 03-06-2025 Platelet mean volume (Bld) [Entitic vol] 9.2 fL 6.2-12.0 [facility] Microscopic analysis of urin e for red blood cells (RBC)Ordered By: Hailee Weiss on 03-06-2025 Microscopic analysis of urine for red blood cells (RBC) > 100 SEEN /hpf 0-5 [facility] Monocyte percentageOrdered B y: Hailee Weiss on 03-06-2025 Monocytes/100 WBC (Bld) 8.9 % 0-10 [facility] Mucus LM Ql (Urine sed)Order ed By: Hailee Weiss on 03-06-2025 Mucus Ql (Urine sed) 0 SEEN /hpf [facility] Neutrophil percentageOrdered By: Hailee Weiss on 03-06-2025 Neutrophils/100 WBC (Bld) 56.2 % 47-70 [facility] Nitrite Test strip Ql (U)Ord ered By: Hailee Weiss on 03-06-2025 Nitrite Ql (U) Positive High Negative [facility] Nucleated red blood cell per centageOrdered By: Hailee Weiss on 03-06-2025 Nucleated RBC/100 WBC (Bld) [Ratio] 0 % 0-5 [facility] Platelet countOrdered By: Zenon Weiss on 03-06-2025 Platelets (Bld) [#/Vol] 223 10*3/uL 150-450 [facility] Potassium measurement (mass/ volume)Ordered By: Hailee Weiss on 03-06-2025 Potassium (Unsp spec) [Mass/Vol] 4.4 mmol/L 3.3-5.1 [facility] Comment on above: Hemolysis present, R esults could be affected. Protein Test strip Ql (U)Ord ered By: Hailee Weiss on 03-06-2025 Protein Ql (U) 100 mg/dl High Negative [facility] RBC Auto (Bld) [#/Vol]Ordere d By: Hailee Weiss on 03-06-2025 RBC (Bld) [#/Vol] 4.49 10*6/uL 4.2-5.4 [facility] Serum creatinine measurement (mass/volume)Ordered By: Hailee Weiss on 03-06-2025 Creatinine [Mass/Vol] 0.76 mg/dL 0.70-1.20 [facility] Serum globulin measurementOr dered By: Hailee Weiss on 03-06-2025 Globulin (S) [Mass/Vol] 3.2 g/dL 2.2-4.2 [facility] Serum glucose measurement (m ass/volume)Ordered By: Hailee Weiss on 03-06-2025 Glucose [Mass/Vol] 93 mg/dL 70-99 [facility] Serum or plasma alanine do otransferase (ALT) measurementOrdered By: Hailee Weiss on 03-06-2025 ALT [Catalytic activity/Vol] 14 U/L <35 [facility] Comment on above: Hemolysis present, R esults could be affected. Serum or plasma albumin dennis urement (mass/volume)Ordered By: Hailee Weiss on 03-06-2025 Albumin [Mass/Vol] 3.9 g/dL 3.5-5.0 [facility] Serum or plasma albumin/glob ulin mass ratioOrdered By: Hailee Weiss on 03-06-2025 Albumin/Globulin [Mass ratio] 1.2 {ratio} 0.9-2.4 [facility] Serum or plasma alkaline cameron sphatase measurementOrdered By: Hailee Weiss on 03-06-2025 ALP [Catalytic activity/Vol] 104 U/L 35-104 [facility] Serum or plasma calcium dennis urement (mass/volume)Ordered By: Hailee Weiss on 03-06-2025 Calcium [Mass/Vol] 9.2 mg/dL 7.6-11.0 [facility] Serum or plasma urea nitroge n measurement (mass/volume)Ordered By: Hailee Weiss on 03-06-2025 Urea nitrogen [Mass/Vol] 13 mg/dL 4-19 [facility] Sodium levelOrdered By: Tressa Weiss on 03-06-2025 Sodium [Moles/Vol] 140 mmol/L 133-145 [facility] Squamous epithelial cells de tection in urine sediment by light microscopyOrdered By: Hailee Weiss on 03-06-2025 Epithelial cells.squamous LM Ql (Urine sed) 0-5 SEEN /hpf 5-10 [facility] Stool Occult Blood iFOBon STOB Positive Normal [facility] Comment on above: Performed By: #### M 100.7900, L501.2450, L100.0100, L500.4050 #### [facility] [address] [facility]. [place], [place], [id number] Stool gastrointestinal hemog lobin detection by immunologic methodOrdered By: Hailee Weiss on 03-06-2025 Lower GI hemoglobin IA Ql (Stl) Positive Abnormal [facility] Total proteinOrdered By: Cassidy Weiss on 03-06-2025 Protein [Mass/Vol] 7.2 g/dL 5.9-8.4 [facility] Urinalysis, Completeon 03-06 EPI,SQUAMOUS 0-5 SEEN Normal 5-10 [facility] Comment on above: Order Comment: CLEAN CATCH Performed By: #### L 400.0001 #### [facility] [address] [place], [place], [id number] RBC > 100 SEEN Normal 0-5 [facility] Comment on above: Order Comment: CLEAN CATCH Performed By: #### L 400.0001 #### [facility] [address] [place], [place], [id number] BACTERIA 0 SEEN Normal None Seen [facility] Comment on above: Order Comment: CLEAN CATCH Performed By: #### L 400.0001 #### [facility] [address] [place], [place], [id number] Mucus Ql (Urine sed) 0 SEEN Normal [facility] Comment on above: Order Comment: CLEAN CATCH Performed By: #### L 400.0001 #### [facility] [address] [place], [place], [id number] WBC 0 SEEN Normal 0-5 [facility] Comment on above: Order Comment: CLEAN CATCH Performed By: #### L 400.0001 #### [facility] [address] [place], [place], [id number] Urine clarityOrdered By: Cassidy Weiss on 03-06-2025 Clarity (U) Sl. Cloudy Clear [facility] Urine color determinationOrd ered By: Hailee Weiss on 03-06-2025 Color (U) Yellow Yellow [facility] Urine glucose detectionOrder ed By: Hailee Weiss on 03-06-2025 Glucose Ql (U) Normal mg/dl Normal [facility] Urine leukocyte esterase det ection by dipstickOrdered By: Hailee Weiss on 03-06-2025 Leukocyte esterase Test strip Ql (U) 25 /ul High Negative [facility] Urine pHOrdered By: Hailee mcelroy on 03-06-2025 pH (U) 6.5 [pH] 5.0 - 8.0 [facility] Urine sediment bacteria coun t by microscopy (number/high power field)Ordered By: Hailee Weiss on 03-06-2025 Bacteria LM.HPF (Urine sed) [#/Area] 0 /[HPF] None Seen [facility] Urine specific gravity measu rementOrdered By: Hailee Weiss on 03-06-2025 Specific gravity (U) [Rel density] 1.015 1.002-1.030 [facility] Urine urobilinogen measureme ntOrdered By: Hailee Abhishek on 03-06-2025 Urobilinogen Ql (U) Normal mg/dl Normal [facility] White blood cell (WBC) count Ordered By: Hailee Abhishek on 03-06-2025 WBC (Bld) [#/Vol] 6.8 10*3/uL 4.4-11.0 [facility] White blood cell countOrdere d By: Hailee Weiss on 03-06-2025 White blood cell count 0 SEEN /hpf 0-5 [facility] MR Brain WO contraston 03-03 IMPRESSION: No acute intracranial abnormality or finding correlating with etiology of patient's symptoms. Potato Chip Sorter: FLORENCE Transcribe Date/Time: Mar 03 2025 11:36A Dictated by : IRAIDA CASTRO DO This examination was interpreted and the report reviewed and electronically signed by: VAHE PRINCE MD on Mar 03 2025 1:14PM [facility] OF RADIOLOGY * * *Final Report* * * DATE OF EXAM: Mar 03 2025 11:25AM [facility] 0294 - MRI BRAIN WO IVCON / [...] DATE OF EXAM: Mar 03 2025 11:25AM [facility] 0294 - MRI BRAIN WO IVCON / [...] finding correlating with etiology of patient's symptoms. Potato Chip Sorter: PSCB Transcribe Date/Time: Mar 03 2025 11:36A Dictated by : IRAIDA CASTRO, This examination was interpreted and the report reviewed and electronically signed by: VAHE PRINCE MD on Mar 03 2025 1:14PM [facility] Radiology Study observation (narrative) [facility] MR Brain WO contrastOrdered By: Ccf Provider on 03-03-2025 [facility] MRI BRAIN WO IVCONon 025 MRI BRAIN WO IVCON Normal [facility] HISTORY PHYSICALon HISTORY PHYSICAL HNO ID: [id number] Author: GLORIA SMITH APRN.COMMUNITY HEALTH PLANNING DIRECTOR Service: Psychiatry Author Type: Nurse Practitioner Type: H&P Filed: 02/28/2025 23:02 Note Text: PSYC NEW - PSYCHIATRIC ASSESSMENT INTENSIVE OUTPATIENT PROGRAM Patient was seen for an initial evaluation. All information is from Patient report except when noted. This evaluation is NOT intended for forensic, disability or child custody purposes. This virtual visit was performed using [employer] Video Visit. It required patient-provider interaction for the medical decision making as documented below. I have communicated my name and active licensure. The patient's identity and physical location were verified at the time of this visit. Either the patient or their legal front desk representative has been informed of the risks and benefits of -- and alternatives to -- treatment through a remote evaluation and consents to proceed with the evaluation remotely. Persons present: patient, BLASTING [employer] MAN provider and [employer] student, Betty Calvo RN. The patient or the patient's front desk representative consented to this virtual encounter. PDMP website checked and validated. All prescriptions have been APPROPRIATELY filled. No suspicious activity was identified. 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 Patient states [facility]B is involved due to [...] go about (more content not included)... Normal [facility] CNOVon 02-27-2025 CNOV Normal [facility] T4 Free SerPl-mCncon 025 Free T4 [Mass/Vol] 1.0 ng/dL Normal 0.9-1.7 [facility] Comment on above: Order Comment: Speci men Type: BLOOD SPECIMENOrdering Facility: [facility] Address: [address] [place] [address] Performed By: #### T PSYCHIATRIC, 3024-7 ####[facility] [id number] [place] [address] [place] TOXICOLOGY SCREEN, ROUTINE U RINEon 02-27-2025 Amphetamines Confirm (U) [Mass/Vol] Negative Normal Negative [facility] Comment on above: Order Comment: Speci men Type: URINE SPECIMENOrdering Facility: [facility] Address: [address] [place] [address] Result Comment: Cuto ff threshold at 1000 ng/mL. Performed By: #### U TOX2 ####[facility] [id number] [place] [address] [place] BARBITURATES, URINE Negative Normal Negative [facility] Comment on above: Order Comment: Speci men Type: URINE SPECIMENOrdering Facility: [facility] Address: [address] [place] [address] Result Comment: Cuto ff threshold at 200 ng/mL. Performed By: #### U TOX2 ####[facility] [id number] [id number] [address] [place] BENZODIAZEPINES, URINE Negative Normal Negative Cl [facility] Comment on above: Order Comment: Speci men Type: URINE SPECIMENOrdering Facility: [facility] Address: [address] [place] [address] Result Comment: Cuto ff threshold at 200 ng/mL. Performed By: #### U TOX2 ####[facility] [id number] [place] [address] [place] Cannabinoids Screen Ql (U) Negative Normal Negative [facility] Comment on above: Order Comment: Speci men Type: URINE SPECIMENOrdering Facility: [facility] Address: [address] [place] [address] Result Comment: Cuto ff threshold at 50 ng/mL. Performed By: #### U TOX2 ####[facility] [id number] [place] [address] [place] Cocaine Ql (U) Negative Normal Negative [facility] Comment on above: Order Comment: Speci men Type: URINE SPECIMENOrdering Facility: [facility] Address: [address] [place] [address] Result Comment: Cuto ff threshold at 300 ng/mL. Performed By: #### U TOX2 ####[facility] [id number] [place] [address] [place] Ethanol (U) [Mass/Vol] <11 Normal <11 [facility] Comment on above: Order Comment: Speci men Type: URINE SPECIMENOrdering Facility: [facility] Address: [address] [place] [address] Performed By: #### U TOX2 ####[facility] [id number] [place] [address] [place] fentaNYL Screen Ql (U) Negative Normal Negative [facility] Comment on above: Order Comment: Speci men Type: URINE SPECIMENOrdering Facility: [facility] Address: [address] [place] [address] Result Comment: Cuto ff threshold at 5 ng/mL. Performed By: #### U TOX2 ####[facility] [id number] [address] [place] Opiates Screen Ql (U) Negative Normal Negative [facility] Comment on above: Order Comment: Speci men Type: URINE SPECIMENOrdering Facility: [facility] Address: [address] [place] [address] Result Comment: Cuto ff threshold at 300 ng/mL. Performed By: #### U TOX2 ####[facility] LABIA [id number] [address] [place] oxyCODONE cutoff Screen (U) [Mass/Vol] Negative Normal Negative [facility] Comment on above: Order Comment: Speci men Type: URINE SPECIMENOrdering Facility: [facility] Address: [address] [place] [address] Result Comment: Cuto ff threshold at 100 ng/mL. Performed By: #### U TOX2 ####[facility] LABIA [id number] [address] [place] Phencyclidine Ql (U) Negative Normal Negative [facility] Comment on above: Order Comment: Speci men Type: URINE SPECIMENOrdering Facility: [facility] Address: [address] [place] [address] Result Comment: Cuto ff threshold at 25 ng/mL. Performed By: #### U TOX2 ####[facility] LABIA [id number] [place] [address] [place] TSH W/REFLEX FT4on 5 TSH Qn 4.620 m[IU]/L High 0.270-4.200 [facility] Comment on above: Order Comment: Speci men Type: BLOOD SPECIMENOrdering Facility: [facility] Address: [address] [place] [address] Result Comment: If t he patient is , TSH reference range varies by gestational period:First Trimester (weeks 9-12): 0.180-2.990 mIU/LSecond Trimester: 0.110-3.980 mIU/LThird Trimester: 0.480-4.710 mIU/Tutu Mosquera et al. A Practical Approach for the Verifications and Determination of Site- and Trimester-Specific Reference Intervals for Thyroid Function tests in . Thyroid, 2019:29:3:412-420. Keith Mendez, et al. 2017 Guidelines of the [place] [employer] for the Diagnosis and Management of Thyroid Disease during and the . Thyroid, 2017:27:3:315-389. Performed By: #### T PSYCHIATRIC, 3024-7 ####[facility] LABCLIA [id number] [address] OF [facility] CONSULT PROGon 02-24-2025 CONSULT PROG HNO ID: [id number] Author: ANA JONES [facility] Service: Behavioral Health IOP (Intensive Outpatient Program) Author Type: Counselor Type: Consult Progress Note Filed: 02/24/2025 13:17 Note Text: DIAGNOSTIC ASSESSMENT FOR IOP (INTENSIVE OUTPATIENT PROGRAM) SERVICE DATE: 02/24/2025 SERVICE TIME: 2641-1958 REFERRED BY: Anaya Bartlett APRN.[employer] Virtual platform used: StatSheet This Visit is being conducted with the use of a HIPPA compliant telecommunication system permitting interactive audio and or video platform. I have communicated my name and active licensure. The patient's identity and physical location were verified at the time of this visit. Either the patient or their legal front desk representative has been informed of the risks [...] fiance (she refers to him as her hubby) working [place] base is also stressful for [...] states if it weren't for her friend, hubby, and grandchildren she thinks she would have [...] Lyman. Per EMR, note from Anaya Bartlett APRN.COMMUNITY HEALTH PLANNING DIRECTOR on 08/23/2024: Ms. Chacon is a 49 [...] elevated due to Denies any symptoms of debora. She had her second knee surgery 06/30 [...] she expla (more content not included)... Normal [facility] CNOVon 02-17-2025 CNOV Normal [facility] CNOVon 02-13-2025 CNOV Normal [facility] ANES POSTPROC EVALon 025 ANES POSTPROC EVAL HNO ID: [id number] Author: JOSE RODRIGUEZ MD Service: Anesthesiology Author [...] January 20, 2025 TIME: 8:47 AM CSN: [id number] [facility] ANES PRE-OPon 01-20-2025 ANES PRE-OP HNO ID: [id number] Author: JOSE RODRIGUEZ MD Service: Anesthesiology Author [...] a current smoker. NPO Status: adequate Beta Red Monitoring Plan Monitoring plan: standard ASA. Post Procedure Analgesic Plan Postoperative analgesic plan: parenteral or oral opioids. Informed Consent Anesthetic risks, benefits, alternatives, personnel and consent discussed: yes. Patient / Responsible Constitution Party agrees to proceed: yes Patient / Surrogate [...] January 20, 2025 TIME: 7:31 AM CSN: [id number] Normal [facility] Colonoscopyon 01-20-2025 Colonoscopy [facility] Gastrointestinal Endoscopy Patient Name: Sri [...] current guidelines. Procedure Code(s): --- Professional --- 19099, Colonoscopy, flexible; with removal of tumor(s), polyp(s), or other lesion(s) by snare technique 50094, 59, Colonoscopy, flexible; with biopsy, single or multiple Diagnosis Code(s): --- Professional --- R19.7, Diarrhea, unspecified D12.8, Benign neoplasm of rectum K64.8, Other hemorrhoids CPT copyright 202 [employer]. All rights reserved. The codes documented in this report are preliminary and upon admissions advisor review may be revised to meet current [...] minimal. Estimated blood loss was minimal. Normal [facility] Colonoscopy studyon 01-21-[address] [place] [address] Gastrointestinal Endoscopy Patient Name: Sri Chacon Procedure [...] current guidelines. Procedure Code(s): --- Professional --- 31715, Colonoscopy, flexible; with removal of tumor(s), polyp(s), or other lesion(s) by snare technique 74420, 59, Colonoscopy, flexible; with biopsy, single or multiple Diagnosis Code(s): --- Professional --- R19.7, Diarrhea, unspecified D12.8, Benign neoplasm of rectum K64.8, Other hemorrhoids CPT copyright 2020 [employer]. All rights reserved. The codes documented in this report are preliminary and upon admissions advisor review december (more content not included)... PROVATION [facility] Radiology Study observation (narrative) [facility] EGD Study observation Narrat iveon 01-20-2025 [facility] Gastrointestinal Endoscopy Patient Name: Sri [...] future endoscopies Procedure Code(s): --- Professional --- 68023, Esophagogastroduodenosc opy, flexible, transoral; with biopsy, single or multiple Diagnosis Code(s): --- Professional --- R13.10, Dysphagia, unspecified K22.89, Other specified disease of esophagus K31.89, Other diseases of stomach and duodenum CPT copyright 2020 [employer]. All rights reserved. The codes documented in this report are preliminary and upon admissions advisor review may be revised to meet current compliance requirements. Attending Participation: I personally performed the entire procedure. Scope In: 8:09:29 AM Scope Out: 8:17:37 AM MD Candis Moss MD 01/20/2025 8:23:28 AM This report has been signed electronically by Candis Gamez MD Number of Addenda: 0 Note Initiated On: 01/20/2025 7:19 AM Estimated Blood Loss: Estimated blood loss was minimal. PROVATION [facility] Radiology Study observation (narrative) [facility] HISTORY PHYSICALon HISTORY PHYSICAL HNO ID: [id number] Author: CANDIS GAMEZ MD Service: General Surgery Author Type: Physician Type: H&P Filed: 01/20/2025 07:54 Note Text: HISTORY AND PHYSICAL Sri Haddadulk : 1975 REFERRING PHYSICIAN: Iveth Hernandez [address] [place] [id number] CHIEF COMPLAINT: Patient presents with: Consult: Overdue [...] colonoscopy was 12/[address] Rubio at [facility]. Sedation: MAC Impression: - The entire examined [...] Nonrheumatic mitral (valve) prolapse 06/15/2017 Seizure disorder ([facility]) last 04/2021 Traumatic brain injury ([facility]) Unspecified asthma(493.90) Unspecified ectopic without intrauterine (HCC) [...] The pat (more content not included)... Normal [facility] NURSING PROGon 01-20-2025 NURSING PROG HNO ID: [id number] Author: GIBRAN MATTHEW, CANDELARIA Service: Nursing Author Type: Registered Nurse Type: Nursing Progress Note Filed: 01/20/2025 09:11 Note Text: Pt and brother Ajit advised that per Dr. Jennifer GOLDSMITH, pt is to take lamictal dose when she gets home, and she is to rest for today. Normal [facility] Pathology biopsy report Javad (Tiss)on 01-20-2025 AP DISCLAIMER Normal [facility] Comment on above: Order Comment: Speci men Type: TISSUE SPECIMENOrdering Facility: [facility] Address: [address] [place] [address] Result Comment: Esther hensley Developed Test (LDT) Disclaimer: Performance characteristics of immunohistochemical, immunofluorescent, and chromogenic in-situ hybridization tests have been determined by the performing laboratory within [facility]'s [facility] Pathology and Laboratory Medicine Department ([facility], [facility], [facility], [facility], [facility], [facility], or [facility]) in a manner consistent with CLIA requirements. One or more of these tests may not have been cleared or approved by the FDA. [facility] is regulated under CLIA as qualified to perform high-complexity testing. These tests are used for clinical purposes. These should not be regarded as investigational or for research. Positive and negative controls stain appropriately. Performed By: #### 6 6121-5 ####[facility] LABORATORYCLIA [id number] [address] STATES OF [facility] CASE REPORT Normal [facility] Comment on above: Order Comment: Speci men Type: TISSUE SPECIMENOrdering Facility: [facility] Address: [address] [place] [address] Result Comment: Surg ica Pathology Report Case: [id number] Authorizing Provider: Candis Gamez MD Collected: 01/20/2025 08:11 AM Ordering Location: SURGERY Received: 01/20/2025 09:56 AM Pathologist: Yaw Garcia MD Specimens: A) - Small Bowel, Duodenum, Biopsy B) - Stomach, Antrum, Biopsy C) - Esophagogastric Junction, Biopsy D) - Esophagus, Biopsy, random E) - Colon, Biopsy, RANDOM F) - Rectum, Polyp Performed By: #### 6 6121-5 ####[facility] LABORATORYCLIA [id number] [address] [place] FINAL DIAGNOSIS Normal [facility] Comment on above: Order Comment: Speci men Type: TISSUE SPECIMENOrdering Facility: [facility] Address: [address] [place] [address] Result Comment: A. D uodenum, biopsy: - [...] 1009 EDT Performed By: #### 6 6121-5 ####[facility] LABORATORYCLIA [id number] [address] [place] FINAL PERFORMING LAB Normal [facility] Comment on above: Order Comment: Speci men Type: TISSUE SPECIMENOrdering Facility: [facility] Address: [address] [place] [address] Result Comment: Diag nostic interpretation performed at: [facility], [address] [address] CLIA# [id number] Restaurant Bartender: Thomas Prasad MD Performed By: #### 6 6121-5 ####[facility] LABORATORYCLIA [id number] [address] [place] GROSS DESCRIPTION Normal [facility] Comment on above: Order Comment: Speci men Type: TISSUE SPECIMENOrdering Facility: [facility] Address: [address] [place], [place] [address], [place] [address] Result Comment: A. S mall Bowel, Duodenum, [...] entirely in F1. Gross examination performed at [facility], [address] [place] [address] CLIA#[id number] [facility] January 20, 2025 2:13 PM Performed By: #### 6 6121-5 ####[facility] LABORATORYCLIA [id number] [place] [address] [place] Upper GI endoscopyon 06-13-2 025 Upper GI endoscopy [facility] Gastrointestinal Endoscopy Patient Name: Sri [...] future endoscopies Procedure Code(s): --- Professional --- 80001, Esophagogastroduodenosc opy, flexible, transoral; with biopsy, single or multiple Diagnosis Code(s): --- Professional --- R13.10, Dysphagia, unspecified K22.89, Other specified disease of esophagus K31.89, Other diseases of stomach and duodenum CPT copyright 2020 [employer]. All rights reserved. The codes documented in this report are preliminary and upon admissions advisor review may be revised to meet current compliance requirements. Attending Participation: I personally performed the entire procedure. Scope In: 8:09:29 AM Scope Out: 8:17:37 AM MD Candis Moss MD 01/20/2025 8:23:28 AM This report has been signed electronically by Candis Gamez MD Number of Addenda: 0 Note Initiated On: 01/20/2025 7:19 AM Estimated Blood Loss: Estimated blood loss was minimal. Normal [facility] DBT Breast - bilateral diagn ostic [...] Pawel Light M.D. Electronically signed on: 01/17/2025 Potato Chip Sorter: RAÚL Transcrimargarita Date/Time: Jan 17 2025 9:59A Dictated by: PAWEL LIGHT MD This examination was interpreted and the report reviewed and electronically signed by: PAWEL LIGHT MD on Jan 17 2025 12:27PM [facility] DIVISION OF RADIOLOGY * * *Final Report* * * Comments: ULTRASOUND OF RIGHT BREAST: 06/29/2018 RESULT: Diagnosis: multiple diagnoses [facility] Page: 1 Name: SRI CHACON MR#: [id number] Printed: 01/17/2025 12:32:39 * * *Final Report* * * DATE OF EXAM: Jan 17 2025 10:16AM JED 0627 - MARNIE VANESSA HARTMAN / PROCEDURE REASON: multiple diagnoses * * * * Physician Interpretation * * * * RESULT: [place] [address] [place] [address] #[id number] - MARNIE FEMIG W ELIO ELIA HISTORY: 49 year-old patient [...] in either breast. DIVISION OF RADIOLOGY Provider, [facility] - 01/17/2025 * * *Final Report* * * Comments: ULTRASOUND OF RIGHT BREAST: 06/29/2018 RESULT: Diagnosis: multiple diagnoses [facility] Page: 1 Name: SRI CHACON [facility] #: [id number] MR#: [id number] Printed: 01/17/2025 12:32:39 * * *Final Report* * * DATE OF EXAM: Jan 17 2025 10:16AM [facility] 0627 - MARNIE DIAG W ELIO ELIA / PROCEDURE REASON: multiple diagnoses * * * * Physician Interpretation * * * * RESULT: [place] [address] #[id number] - MARNIE DIAG W ELIO ELIA HISTORY: [...] Pawel Light M.D. Electronically signed on: 01/17/2025 Potato Chip Sorter: RAÚL Transcribe Date/Time: Jan 17 2025 9:59A Dictated by: PAWEL LIGHT MD This examination was interpreted and the report reviewed and electronically signed by: PAWEL LIGHT MD on Jan 17 2025 12:27PM EST [facility] Radiology Study observation (narrative) [facility] DBT Breast - bilateral diagn ostic for implantOrdered By: Ccf Provider on 01-17-2025 [facility] MARNIE DIAG W ELIO BILon 2024 MARNIE DIAG W ELIO ELIA Normal [facility] CNOVon 01-12-2025 CNOV Normal [facility] XR KNEE 4V AP/PA BOTH+LAT/ME R LTon [...] No joint effusion. IMPRESSION: No acute abnormality Potato Chip Sorter: FLORENCE Transcribe Date/Time: Jan 15 2025 8:45A Dictated by : PRETTY CHINO MD This examination was interpreted and the report reviewed and electronically signed by: PRETTY CHINO MD on Jan 15 2025 8:46AM EST [id number] [facility]25 [facility]24 [facility] Office Visit (SPAGWO ) SRI CHACON ([id number]) 1975 F Date Time Provider Department 12/15/24 10:30 AM FRIDA VARGAS During your visit today, we recorded the following information about you: Pulse Respiration 85/minute 16/minute Bonnie Msue MA 12/15/2024 12:44 PM Signed Review of [...] ideas. The patient is nervous/anxious. Frida Vargas APRN.CNP 12/15/2024 12:44 PM Signed [facility] Today's Date: 12/15/2024 Name: Sri Chacon [...] Procedures: Sphenopalatine ganglion block NONE at N/A Angular Js Developer Needed: Nerve Blocks - YES (Exception: Occipital Nerve Blocks - NO) Anticoagulant - Hold Needed: N/A (Not currently on Anticoagulants) Anticoagulant - Currently Taking: None Allergies (relevant): None Scheduling - Mobility (Can Patient independently transfer on/off an OR or Procedure table?): YES (May schedule at any location) Scheduling - Additional Info: None X 3 2 weeks apart Studies: None Functional Congregation: NONE Referrals: No additional considerations at present [...] Relaxants: Topicals: (more content not included)... Normal [facility] 12-12-2024 [facility] Telephone (NOLBERTO) SRI CHACON ([id number]) 1975 F Date Time Provider Department 12/12/24 IVETH HERNANDEZ During your visit today, we recorded the following information about you: Veronika Guallpa MA 12/12/2024 11:37 AM Signed Pt. Carmelo on vm stating she is trying to figure out what we are going to do with my blood work. No other information given. I am assuming it is for her thyroid. Please advise. TATUM Durham Brittny A, APRN.CNP 12/12/2024 1:46 PM Signed Please see other encounter that addressed this. aMli Fam MA 12/13/2024 9:05 AM Signed See [...] Date Reviewed: 12/07/2024 Reviewed by: Zhanna Shah APRN.COMMUNITY HEALTH PLANNING DIRECTOR - Fully Assessed Reason for Visit: Patient Question [1727] Prescriptions as of 12/13/2024 - levothyroxine (SYNTHROID) [...] Encounter Status:Closed by VERONIKA GUALLPA on 12/12/24 Normal [facility] 25(OH)D3 SerPl-mCncon 2024 25-hydroxyvitamin D3 [Mass/Vol] 16.3 ng/mL Low 31.0-80.0 [facility] Comment on above: Order Comment: Speci men Type: BLOOD SPECIMENOrdering Facility: [facility] Address: [address] [place] [address] [place] [address] Result Comment: Clas sification of 25 [place] Vitamin D status:Deficiency/Insufficiency: < or = 30 ng/ml.Sufficiency/Optimal Levels: 31-80 ng/mLToxicity: > 100 ng/mL.Test performed by chemiluminescent immunoassay. Performed By: #### 1 989-3 ####[facility] LABCLIA [id number] [place] [address] [place] 25-hydroxyvitamin D3 [Mass/V ol]on 12-07-2024 Interpretation and review of laboratory results Abnormal [facility] The reference range interval was based on an analysis of samples from healthy adults and may not pertain to children from 0-18 years old. [facility] CNOVon 12-07-2024 CNOV Normal [facility] CNPNon 12-07-2024 CNPN Telephone (AGFAMPLE) SRI CHACON ([id number]) 1975 F Date Time Provider Department 12/07/24 IVETH HERNANDEZ During your visit today, we recorded the following information about you: Veronika Guallpa MA 12/07/2024 9:12 AM Signed Pt. Lm on stating she needs diagnostic mammogram ordered. Please advise. Veronika LeahykennethTATUM Brittny A, APRN.COMMUNITY HEALTH PLANNING DIRECTOR 12/08/2024 8:24 AM Signed Order was placed [...] Date Reviewed: 12/07/2024 Reviewed by: Zhanna Shah APRN.COMMUNITY HEALTH PLANNING DIRECTOR - Fully Assessed Reason for Visit: Patient Question [6287] Cmt: Diagnostic mammogram. Prescriptions as of 12/08/2024 [...] Status:Closed by VERONIKA GUALLPA on 12/07/24 Normal [facility] Comprehensive metabolic 2000 panelOrdered By: Mali Orozco on 12-07-2024 Albumin [Mass/Vol] 4.4 g/dL 3.9 - 4.9 g/dL [facility] ALP [Catalytic activity/Vol] 105 U/L 34 - 123 U/L [facility] ALT [Catalytic activity/Vol] 21 U/L 7 - 38 U/L [facility] Anion gap [Moles/Vol] 11 mmol/L 8 - 15 mmol/L [facility] AST [Catalytic activity/Vol] 19 U/L 13 - 35 U/L [facility] Bilirubin [Mass/Vol] 0.5 mg/dL 0.2 - 1 .3 mg/dL [facility] Calcium [Mass/Vol] 10.1 mg/dL 8.5 - 10. 2 mg/dL [facility] Chloride [Moles/Vol] 101 mmol/L 98 - 10 7 mmol/L [facility] CO2 [Moles/Vol] 27 mmol/L 22 - 30 mmol/L [facility] Creatinine [Mass/Vol] 0.88 mg/dL 0.58 - 0.96 mg/dL [facility] GFR/1.73 sq M.predicted among non-blacks MDRD (S/P/Bld) [Vol rate/Area] 80 mL/min/{1.73_m2} - PINF [facility] Comment on above: Estimated Glomerular Filtration [...] [Mass/Vol] 95 mg/dL 74 - 99 mg/dL [facility] Comment on above: The [place] Di[employer] Association (ADA) provides guidance for [...] Standards of Medical Care in Diabetes 2016, [employer]. Diabetes Care. 2016.39(Suppl 1). Interpretation and review of laboratory results Normal [facility] Potassium [Moles/Vol] 4.5 mmol/L 3.7 - 5.1 mmol/L [facility] Protein [Mass/Vol] 7.9 g/dL 6.3 - 8.0 g/dL [facility] Sodium [Moles/Vol] 139 mmol/L 136 - 144 mmol/L [facility] Urea nitrogen [Mass/Vol] 21 mg/dL 7 - 21 mg/dL [facility] Comprehensive metabolic 2000 panelon 12-07-2024 Albumin [Mass/Vol] 4.4 g/dL Normal 3.9-4.9 [facility] Comment on above: Order Comment: Speci men Type: BLOOD SPECIMENOrdering Facility: [facility] Address: [address] [place] [address] Performed By: #### 2 4323-8 ####[facility] [id number] [place] [address] [place] ALP [Catalytic activity/Vol] 105 U/L Normal 34-123 [facility] Comment on above: Order Comment: Makedai men Type: BLOOD SPECIMENOrdering Facility: [facility] Address: [address] [place] [address] Performed By: #### 2 4323-8 ####[facility]VILLENCLIA [id number] [place] [address] [place] ALT [Catalytic activity/Vol] 21 U/L Normal 7-38 [facility] Comment on above: Order Comment: Speci men Type: BLOOD SPECIMENOrdering Facility: [facility] Address: [address] [place] [address] Performed By: #### 2 4323-8 ####[facility]SONVILLENCLIA [id number] [place] [id number] [place] Anion gap [Moles/Vol] 11 mmol/L Normal 8-15 [facility] Comment on above: Order Comment: Speci men Type: BLOOD SPECIMENOrdering Facility: [facility] Address: [address] [place] [address] Performed By: #### 2 4323-8 ####[facility]ITALWNCLIA [id number] [place] [address] [place] AST [Catalytic activity/Vol] 19 U/L Normal 13-35 [facility] Comment on above: Order Comment: Speci men Type: BLOOD SPECIMENOrdering Facility: [facility] Address: [address] [place] [address] Performed By: #### 2 4323-8 ####[facility]ITALA [id number] [place] [address] [place] Bilirubin [Mass/Vol] 0.5 mg/dL Normal 0.2-1.3 [facility] Comment on above: Order Comment: Speci men Type: BLOOD SPECIMENOrdering Facility: [facility] Address: [address] [place] [address] Performed By: #### 2 4323-8 ####[facility]ILLENCLIA [id number] [place] [address] [place] Calcium [Mass/Vol] 10.1 mg/dL Normal 8.5-10.2 [facility] Comment on above: Order Comment: Speci men Type: BLOOD SPECIMENOrdering Facility: [facility] Address: [address] [place] [address] Performed By: #### 2 4323-8 ####[facility]ILLENCLIA [id number] [place] [address] [place] Chloride [Moles/Vol] 101 mmol/L Normal 98-107 [facility] Comment on above: Order Comment: Speci men Type: BLOOD SPECIMENOrdering Facility: [facility] Address: [address] [place] [address] Performed By: #### 2 4323-8 ####[facility] [id number] [place] [address] [place] CO2 [Moles/Vol] 27 mmol/L Normal 22-30 [facility] Comment on above: Order Comment: Speci men Type: BLOOD SPECIMENOrdering Facility: [facility] Address: [address] [place] [address] Performed By: #### 2 4323-8 ####[facility] [id number] [place] [address] [place] Creatinine [Mass/Vol] 0.88 mg/dL Normal 0.58-0.96 [facility] Comment on above: Order Comment: Speci men Type: BLOOD SPECIMENOrdering Facility: [facility] Address: [address] [place] [address] Performed By: #### 2 4323-8 ####[facility]ITALA [id number] [address] OF [place] Creatinine and Glomerular filtration rate.predicted panel (S/P/Bld) 80 mL/min/1.73m??? Normal >=60 [facility] Comment on above: Order Comment: Speci men Type: BLOOD SPECIMENOrdering Facility: [facility] Address: [address] [place] [address] Result Comment: Ninfa mated Glomerular Filtration Rate [...] actual GFR. Performed By: #### 2 4323-8 ####[facility] HOS[facility]ITALWNCLI [id number] [place] [address] [place] Glucose [Mass/Vol] 95 mg/dL Normal 74-99 [facility] Comment on above: Order Comment: Speci men Type: BLOOD SPECIMENOrdering Facility: [facility] Address: [address] [place], [place] [address] Result Comment: The [place] Diabetes Association (ADA) provides guidance for cutoff [...] Standards of Medical Care in Diabetes 2016, [place] [employer]. Diabetes Care. 2016.39(Suppl 1). Performed By: #### 2 4323-8 ####[facility] CENTERTOWCORALIA [id number] [place] [address] [place] Potassium [Moles/Vol] 4.5 mmol/L Normal 3.7-5.1 [facility] Comment on above: Order Comment: Speci men Type: BLOOD SPECIMENOrdering Facility: [facility] Address: [address] [place], [place] [address] Performed By: #### 2 4323-8 ####[facility]ITALWNCLIA [id number] [place] [address] [place] Protein [Mass/Vol] 7.9 g/dL Normal 6.3-8.0 [facility] Comment on above: Order Comment: Speci men Type: BLOOD SPECIMENOrdering Facility: [facility] Address: [address] [place], [place] [address] Performed By: #### 2 4323-8 ####[facility]LECORALIA [id number] [place] [address] [place] Sodium [Moles/Vol] 139 mmol/L Normal 136-144 [facility] Comment on above: Order Comment: Speci men Type: BLOOD SPECIMENOrdering Facility: [facility] Address: [address] [place] [address] Performed By: #### 2 4323-8 ####[facility] [id number] [place] [address] [place] Urea nitrogen [Mass/Vol] 21 mg/dL Normal 7-21 [facility] Comment on above: Order Comment: Speci men Type: BLOOD SPECIMENOrdering Facility: [facility] Address: [address] [place] [address] Performed By: #### 2 4323-8 ####[facility] [id number] [place] [address] [place] GGTon 12-07-2024 Gamma glutamyl transferase [Catalytic activity/Vol] 27 U/L 6 - 46 U/L [facility] GGT SerPl-cCncon 12-07-2024 Gamma glutamyl transferase [Catalytic activity/Vol] 27 U/L Normal 6-46 [facility] Comment on above: Order Comment: Speci men Type: BLOOD SPECIMENOrdering Facility: [facility] Address: [address] [place] [address] Performed By: #### 2 324-2, [facility], 3024-7 ####[facility] LABCLIA [id number] [address] [address] [place]#### 94760-3 ####[facility] LABCLIA [id number] [address] [address] [place] [facility]AM[facility] SURESHNORTHEASTERN HE[facility] SYSTEM – TAHLEQUAHLIA [id number] [place] [address] [place] Gamma glutamyl transferase [ Catalytic activity/Vol]on 12-07-2024 Interpretation and review of laboratory results Normal [facility] HCV Ab Ql (S)on 12-07-2024 Interpretation and review of laboratory results Normal [facility] HCV Ab Ser Qlon 12-07-2024 HCV Ab Ql (S) Negative Normal Negative [facility] Comment on above: Order Comment: Speci men Type: BLOOD SPECIMENOrdering Facility: [facility] Address: [address] [place] [address] Result Comment: The result suggests no evidence of infection with Hepatitis C virus. Should recent infection be suspected, repeat testing may be considered 4-6 weeks after this draw. Performed By: #### 1 6128-1 ####[facility] LABCLIA [id number] [address] OF [facility] HEPATITIS C ANTIBODY IA WITH CONFIRMATIONon 12-07-2024 HCV Ab Ql (S) Negative Negative [facility] Comment on above: The result suggests no evidence of infection with Hepatitis C virus. Should recent infection be suspected, repeat testing may be considered 4-6 weeks after this draw. HIV 1+2 Ab IA Qlon HIV 1 and 2 Ab IA.rapid Nom (S/P/Bld) [facility] Comment on above: Test not indicated. HIV 1+2 Ab+HIV1 p24 Ag IA Ql Non-Reactive Nonreactive [facility] HIV immunoassay testing algorithm interpretation (S/P/Bld) [Interp] [facility] Comment on above: No evidence of HIV-1 or HIV-2 infection. Should recent infection be suspected, repeat testing may be considered 2-3 weeks after this draw. [place] Rev. Code 3701.243(E): This information has been [...] release of HIV test results or diagnoses. [facility] HIV 1 and 2 Ab IA.rapid Nom (S/P/Bld) Normal [facility] Comment on above: Order Comment: Speci men Type: BLOOD SPECIMENOrdering Facility: [facility] Address: [address] [place] [address] Result Comment: Test not indicated. Performed By: #### 3 1201-7 ####[facility] LABIA [id number] [place] [address] [place] HIV 1+2 Ab+HIV1 p24 Ag IA Ql Non-Reactive Normal Nonreactive [facility] Comment on above: Order Comment: Speci men Type: BLOOD SPECIMENOrdering Facility: [facility] Address: [address] [place] [address] Performed By: #### 3 1201-7 ####[facility] [id number] [address] OF [facility] HIV immunoassay testing algorithm interpretation (S/P/Bld) [Interp] Normal [facility] Comment on above: Order Comment: Speci men Type: BLOOD SPECIMENOrdering Facility: [facility] Address: [address] [place] [address] Result Comment: No e vidence of HIV-1 or HIV-2 infection. Should recent infection be suspected, repeat testing may be considered 2-3 weeks after this draw.[place] Rev. Code 3701.243(E): This information has been [...] or diagnoses. Performed By: #### 3 1201-7 ####[facility] LABIA [id number] [place] [address] [place] Lipid 1996 panelon 5 Cholesterol [Mass/Vol] 235 mg/dL High NINF - 200 mg/dL [facility] Comment on above: <200 mg/dL, Desirabl e 200-239 mg/dL, Borderline high >239 mg/dL, High Cholesterol in HDL [Mass/Vol] 52 mg/dL 39 - PINF mg/dL [facility] Comment on above: 40-59 mg/dL, Accepta ble >59 mg/dL, High: Negative risk factor for coronary heart disease <40 mg/dL, Low: Positive risk factor for coronary heart disease Cholesterol in LDL [Mass/Vol] 168 mg/dL High NINF - 100 mg/dL [facility] Comment on above: <100 mg/dL, Optimal 100-129 mg/dL, Near optimal/above optimal 130-159 mg/dL, Borderline high 160-189 mg/dL, High >189 mg/dL, Very high Secondary prevention optimal LDL Cholesterol levels are recommended to be <70 mg/dL LDL cholesterol is calculated using the Mccabe-NIH equation. Cholesterol in LDL/Cholesterol in HDL [Mass ratio] 3.23 {ratio} High NINF - 2.54 [facility] Comment on above: Reference: 1. National Cholesterol Education Program ATP III Guideline At-A-Glance Quick Desk Reference: National Heart, Lung, and Blood Pimento. National Institutes of Health. 2001: NIH Publication No. 01-3305. 2. An International Atherosclerosis Society position paper: global recommendations for the management of dyslipidemia: executive summary, Atherosclerosis. 2014: 232(2):410-413. Cholesterol in VLDL [Mass/Vol] 17 mg/dL NINF - 30 mg/dL [facility] Cholesterol non HDL [Mass/Vol] 183 mg/dL High NINF - 130 mg/dL [facility] Comment on above: <130 mg/dL, Optimal 130-159 mg/dL, Near optimal/above optimal 160-189 mg/dL, Borderline high 190-219 mg/dL, High >219 mg/dL, Very high Secondary prevention optimal non HDL Cholesterol levels are recommended to be <100 mg/dL Cholesterol.total/Chol esterol in HDL [Mass ratio] 4.52 {ratio} NINF - 5.10 [facility] Fasting Time 12 hrs [facility] Interpretation and review of laboratory results Abnormal [facility] Triglyceride [Mass/Vol] 86 mg/dL NINF - 150 mg/dL [facility] Comment on above: <150 mg/dL, Normal 150-199 mg/dL, Borderline high 200-499 mg/dL, High >499 mg/dL, Very high Cholesterol [Mass/Vol] 235 mg/dL High <200 Cl [facility] Comment on above: Order Comment: Speci men Type: BLOOD SPECIMENOrdering Facility: [facility] Address: [address] [place] [address] Result Comment: <200 mg/dL, Desirable 200-239 mg/dL, Borderline high>239 mg/dL, High Performed By: #### 2 324-2, [facility], 3024-7 ####[facility] LABCLIA [id number] [facility] [address], [place] [address] [place]#### 98831-1 ####[facility] LABCLIA [id number] [facility] [address], [address] STATES OF [facility] [id number] [place] [address] [place] Cholesterol in HDL [Mass/Vol] 52 mg/dL Normal >39 [facility] Comment on above: Order Comment: Speci men Type: BLOOD SPECIMENOrdering Facility: [facility] Address: [address] [place] [address] Result Comment: 40-5 9 mg/dL, Acceptable>59 mg/dL, High: Negative risk factor for coronary heart disease<40 mg/dL, Low: Positive risk factor for coronary heart disease Performed By: #### 2 324-2, [facility], 3024-7 ####[facility] LABCLIA [id number] [address], [place] [address] [place]#### 87219-9 ####[facility] LABCLIA [id number] [facility] [address], [address] STATES OF [facility] [id number] [place] [address] [place] Cholesterol in LDL [Mass/Vol] 168 mg/dL High <100 [facility] Comment on above: Order Comment: Speci men Type: BLOOD SPECIMENOrdering Facility: [facility] Address: [address] [place] [address] Result Comment: <100 mg/dL, Optimal 100-129 mg/dL, Near optimal/above optimal 130-159 mg/dL, Borderline high 160-189 mg/dL, High>189 mg/dL, Very highSecondary prevention optimal LDL Cholesterol levels are recommended to be <70 mg/dLLDL cholesterol is calculated using the Mccabe-NIH equation. Performed By: #### 2 324-2, [facility], 3024-02 ####[facility] LABCLIA [id number] [address] [address] [facility] OF [place]#### [address]-9 ####[facility] LABIA [id number] [address] [place] [address] [facility] [id number] [place] [address] [place] Cholesterol in LDL/Cholesterol in HDL [Mass ratio] 3.23 {ratio} High <2.54 [facility] Comment on above: Order Comment: Speci men Type: BLOOD SPECIMENOrdering Facility: [facility] Address: [address] [place] [address] Result Comment: Refe rence:1. National Cholesterol Education Program ATP III Guideline At-A-Glance Quick Desk Reference: National Heart, Lung, and Blood Pimento. National Institutes of Health. 2001: NIH Publication No. 01-3305.2. An International Atherosclerosis Society position paper: global recommendations for the management of dyslipidemia: executive summary, Atherosclerosis. 2014: 232(2):410-413. Performed By: #### 2 324-2, [facility], 3024-02 ####[facility] LABIA [id number] [address] [address] [facility]#### 75682-3 ####[facility] LABIA [id number] [address] [address] [facility] [id number] [address] [place] Cholesterol in VLDL [Mass/Vol] 17 mg/dL Normal <30 [facility] Comment on above: Order Comment: Speci men Type: BLOOD SPECIMENOrdering Facility: [facility] Address: [address] [place] [id number] Performed By: #### 2 324-2, [facility], 3024-02 ####[facility] LABCLIA [id number] [address] [place] [address] [place]#### 65678-4 ####[facility] LABCLIA [id number] [address] [place] [address] [place] [facility] [id number] [place] [address] [place] Cholesterol non HDL [Mass/Vol] 183 mg/dL High <130 [facility] Comment on above: Order Comment: Speci men Type: BLOOD SPECIMENOrdering Facility: [facility] Address: [address] [place] [address] Result Comment: <130 mg/dL, Optimal 130-159 mg/dL, Near optimal/above optimal 160-189 mg/dL, Borderline high 190-219 mg/dL, High>219 mg/dL, Very highSecondary prevention optimal non HDL Cholesterol levels are recommended to be <100 mg/dL Performed By: #### 2 324-2, [facility], 3024-02 ####[facility] LABCLIA [id number] [address] [address] [place]#### 56855-8 ####[facility] LABCLIA [id number] [address] [place] [address] [place] [facility] [id number] [place] [address] [place] Cholesterol.total/Chol esterol in HDL [Mass ratio] 4.52 {ratio} Normal <5.10 [facility] Comment on above: Order Comment: Speci men Type: BLOOD SPECIMENOrdering Facility: [facility] Address: [address] [place], [place] [address] Performed By: #### 2 324-2, [facility], 3024-02 ####[facility] LABCLIA [id number] [facility] [address] [place] [address] [place]#### 80362-2 ####[facility] LABCLIA [id number] [facility] [address] [place] [address] [facility] [id number] [place] [address] FASTING TIME 12 hrs Normal [facility] Comment on above: Order Comment: Speci men Type: BLOOD SPECIMENOrdering Facility: [facility] Address: [address] [place] [address] Performed By: #### 2 324-2, [facility], 3024-02 ####[facility] LABCLIA [id number] [address] [place]#### 300[address]-7 ####[facility] LABCLIA [id number] [address], [facility] [place] STATES [place] [id number] [place] [address] Triglyceride [Mass/Vol] 86 mg/dL Normal <150 [facility] Comment on above: Order Comment: Speci men Type: BLOOD SPECIMENOrdering Facility: [facility] Address: [address] [place] [address] Result Comment: <150 mg/dL, Normal 150-199 mg/dL, Borderline high 200-499 mg/dL, High>499 mg/dL, Very high Performed By: #### 2 324-2, [facility], 3024-02 ####[facility] LABCLIA [id number] [facility] [address] [place] [address] [place]#### 205[address]-3 ####[facility] LABCLIA [id number] [address], [place] [id number] [place] [address] [place] No Panel Informationon 12-07 [facility] T4 Free SerPl-mCncon 025 Free T4 [Mass/Vol] 0.8 ng/dL Low 0.9-1.7 [facility] Comment on above: Order Comment: Speci men Type: BLOOD SPECIMENOrdering Facility: [facility] Address: [address] [place] [address] Performed By: #### 2 324-2, [facility], 3024-7 ####[facility] LABCLIA [id number] [address]#### [address]-0 ####[facility] LABCLIA [id number] [address] STATES OF [facility] [id number] [place] [address] [place] TSH W/REFLEX FT4on Interpretation and review of laboratory results Abnormal [facility] TSH Qn 7.44 m[IU]/L High [facility] Comment on above: If the patient [...] Mendez, et al. 2017 Guidelines of the [place] Thyroid Association for the Diagnosis and Management of Thyroid Disease during and the . Thyroid, 2017:27:3:315-389. [facility] TSH Qn 7.440 m[IU]/L High 0.270-4.200 [facility] Comment on above: Order Comment: Speci men Type: BLOOD SPECIMENOrdering Facility: [facility] Address: [address] [place] [address] Result Comment: If t he patient is , TSH reference range varies by gestational period:First Trimester (weeks 9-12): 0.180-2.990 mIU/LSecond Trimester: 0.110-3.980 mIU/LThird Trimester: 0.480-4.710 mIU/Tutu Mosquera et al. A Practical Approach for the Verifications and Determination of Site- and Trimester-Specific Reference Intervals for Thyroid Function tests in . Thyroid, 2019:29:3:412-420. Keith E, et al. 2017 Guidelines of the [place] Thyroid Association for the Diagnosis and Management of Thyroid Disease during and the . Thyroid, 2017:27:3:315-389. Performed By: #### 2 324-2, [facility], 3024-7 ####[facility] LABIA [id number] [address] STATES OF [facility]#### 97083-3 ####[facility] [id number] [place] [address] [place] [facility] [id number] [address] [place] VITAMIN D 25 HYDROXYon 12-07 25-hydroxyvitamin D3 [Mass/Vol] 16.3 ng/mL Low 31.0 - 80.0 ng/mL [facility] Comment on above: Classification of 25 [place] Vitamin D status: Deficiency/Insufficiency: < or = 30 ng/ml. Sufficiency/Optimal Levels: 31-80 ng/mL Toxicity: > 100 ng/mL. Test performed by chemiluminescent immunoassay. CNOVon 12-06-2024 CNOV Office Visit (STANLEY TELLO) SRI CHACON ([id number]) 1975 F Date Time Provider Department 12/06/24 2:20 PM IVETH HERNANDEZ During your visit today, we recorded the following information about you: Temperature Pulse Respiration Blood pressure 98.2 degrees 76/minute 18/minute 120/74 Iveth Hernandez, BLASTING CONTRACT MAN.COMMUNITY HEALTH PLANNING DIRECTOR 12/08/2024 1:16 PM Signed [facility] Iveth Hernandez BLASTING CONTRACT MAN-COMMUNITY HEALTH PLANNING DIRECTOR [address] [place] [id number] Dept Dept. Visit Date: December 06, 2024 Ms.Tina Alise Chacon Date of : 1975 MRN/E #: [id number] Chief Complaint: Patient presents with: Establish Care History of Present Illness Sri is a 49-year-old female with a history of epilepsy, chronic migraines, and hypothyroidism, presenting for an initial visit and evaluation of abdominal pain. I reviewed past medical, surgical, social, and family histories today and updated chart. Allergies, chronic medications, and supplements were also reviewed. Recording using Beisen software for draft documentation of the visit was discussed with the patient/authorized front desk representative; all questions welcomed and answered. Patient/authorized front desk representative agreed to proceed Abdominal Pain: - Persistent abdominal pain described as a twisting and stabbing sensation, x years. - Pain is constant, worsens after eating and drinking. - Denies acid reflux or positional relief. - Occasional nausea; denies severe constipation. - No relief from aqbr-mkj-ssgrpaf medications. Chronic Migraines: - Chronic migraines since [...] Prozac. - Last seen by psychiatry at [facility]. Liver Enzyme Elevation: - Recent labs from September showed elevated alkaline phosphatase. - Other liver enzymes (AST, ALT, bilirubin) were normal. 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 - Underwent three surgeries (April 07, June 30, and September 30). - Currently in physical therapy without significant improvement. - Scheduled to see a specialist in [place] for further evaluation. PAST MEDICAL HISTORY Diagnosis Date Calculus of kidney 07/03/2006 Calculus of ureter 03/16/2008 Convulsions (HCC) 02/01/2013 Depression Essential hypertension 01/01/2018 Gallstone 12/25/2017 Hydronephrosis 03/16/2008 Hypothyroidism IBS (irritable bowel syndrome) Lactose intolerance in adult 01/21/2018 Migraine 02/01/2013 Nonrheumatic mitral (valve) prolapse 06/15/2017 Seizure disorder (HCC) last 04/2021 Traumatic brain injury ([facility]) Unspecified asthma(493.90) Unspecified ectopic without intrauterine (HCC) [...] (Not Specified) (more content not included)... Normal [facility] Micah 12-01-2024 GEMMAN Telephone (AGSPHWG) SRI CHACON ([id number]) 1975 F Date Time Provider Department 12/01/24 [...] Date Reviewed: 10/26/2024 Reviewed by: Ani Rajput, BLASTING CONTRACT MAN.COMMUNITY HEALTH PLANNING DIRECTOR - Fully Assessed Reason for Visit: Appointment [...] Encounter Status:Closed by ANGELINE JULIEN on 12/01/24 Normal [facility] CNPN Normal [facility] CNTHERAPYon 10-20-2024 CNTHERAPY Normal [facility] CNOVon 10-19-2024 CNOV Normal [facility] CNPNon 10-19-2024 CNPN Normal [facility] CNTHERAPYon 10-18-2024 CNTHERAPY Normal [facility] CNPNon 10-12-2024 CNPN Normal [facility] CNTHERAPYon 10-12-2024 CNTHERAPY Normal [facility] [id number] 10-05-2024 [id number] Normal [facility] CNTHERAPYon 10-05-2024 CNTHERAPY Normal [facility] ANES POSTPROC EVALon 025 ANES POSTPROC EVAL HNO ID: [id number] Author: VINCE RAI MD Service: Anesthesiology Author Type: Anesthesiologist Type: Anesthesia Postprocedure Evaluation Filed: 10/04/2024 14:03 Note Text: POST ANESTHESIA EVALUATION NOTE : 1975 Procedure Summary Date: 10/04/24 Room / Location: [place] [address] / [place] Anesthesia Start: 946 Anesthesia Stop: 1030 Procedure: [...] October 04, 2024 TIME: 2:03 PM CSN: [id number] [facility] ANES PRE-OPon 10-04-2024 ANES PRE-OP HNO ID: [id number] Author: VINCE RAI MD Service: Anesthesiology Author Type: Anesthesiologist Type: Anesthesia Preprocedure Evaluation Filed: 10/04/2024 08:19 Note Text: ANESTHESIOLOGY DAY OF SURGERY NOTE : 1975 Procedure Information Date/Time: 10/04/24 0912 Procedures: ARTHROSCOPY KNEE SYNOVECTOMY MAJOR (Left: Knee) MANIPULATION KNEE JOINT UNDER GENERAL ANES (Left: Knee) - Needs long acting post op block, Dr. Dia informed ARTHROSCOPY KNEE LYSIS OF ADHESIONS (Left) [facility]: [facility] Surgeons: Irene Randolph DO Estimated body [...] Airway type: LMA NPO Status: adequate Beta Red Monitoring Plan Monitoring plan: Standard ASA. Post [...] none. Vitals Value Taken Time BP 131/71 10/04/24 075 Pulse 79 10/04/24 075 Resp 18 10/04/24754 Temp 36.5 ?C (97.7 ?F) 10/04/24 075 SpO2 97 % 10/04/[address]754 Facility-Administered Medications as [...] October 04, 2024 TIME: 8:18 AM CSN: [id number] [facility] NURSING PROGon 10-04-2024 NURSING PROG HNO ID: [id number] Author: MARION LIMA RN Service: ? Author [...] called to bedside at completion of procedure. [facility] OPERATIVE NOon 10-04-2024 OPERATIVE NO HNO ID: [id number] Author: IRENE RANDOLPH DO Service: Orthopaedic Surgery Author Type: Physician Type: Operative Report Filed: 10/04/2024 10:43 Note Text: OPERATIVE/PROCEDURE REPORT LOG ID: [id number] SURGERY/PROCEDURE DATE: 10/04/2024 INCISION/PROCEDURE START TIME: 10:04 AM INCISION CLOSE/PROCEDURE END TIME: 10:19 AM SURGEON(S)/PROCEDURALIS T(S) AND SENIOR ENERGY CONSULTANT(S): Surgeons and Role: * Irene Randolph DO - Primary Physician Manager Heart: Elizabeth Karimi PA-C Registered Nurse Grinder Machine Setter: Dania Moore RN SURGERY/PROCEDURE(S): Left knee evalution [...] DATE: October 04, 2024 TIME: 10:31 AM [facility] PHOTO KNEE LEFTon 10-04-2024 [facility] Radiology Study observation (narrative) [facility] B. burgdorferi IgG and IgM p selvin (S)on 09-30-2024 B. burgdorferi IgG+IgM Qn (S) Negative Normal Negative [facility] Comment on above: Order Comment: Cassandra cunningham Type: BLOOD SPECIMENOrdering Facility: [facility] Address: [address] [place] [address] Result Comment: Rece nt infection with B. burgdorferi sensu lato cannot be excluded if the specimen collected within four weeks after the onset of signs and symptoms or within six weeks after a known tick exposure. Clinical and epidemiological correlation is required. Performed By: #### 3 4942-3 ####[facility] LABCLIA [id number] [facility] [id number] [place] [address] [place] CK SerPl-cCncon 09-30-2024 CK [Catalytic activity/Vol] 41 U/L Low 42-196 [facility] Comment on above: Order Comment: Cassandra cunningham Type: BLOOD SPECIMENOrdering Facility: [facility] Address: [address] [place] [address] Performed By: #### 2 157-6, 1987-12, 37396-7, 3084-1 ####[facility] LABIA [id number] [place] [address] [place] CRP SerPl-mCncon 09-30-2024 CRP [Mass/Vol] 0.5 mg/dL Normal <0.9 [facility] Comment on above: Order Comment: Speci men Type: BLOOD SPECIMENOrdering Facility: [facility] Address: [address] [place] [address] Performed By: #### 2 157-6, 1987-12, 62003-5, 3084-1 ####[facility] [id number] [place] [address] [place] Cyclic citrullinated peptide IgG Qnon 09-30-2024 CCP ANTIBODY IGG QUALITATIVE Negative Normal Negative [facility] Comment on above: Order Comment: Speci men Type: BLOOD SPECIMENOrdering Facility: [facility] Address: [address] [place] [address] Performed By: #### 3 3935-8 ####[facility] [id number] [place] [address] [place] [place] ESR Westergren method (Bld) [Velocity]on 09-30-2024 ESR (Bld) [Velocity] 16 mm/h Normal 0-20 [facility] Comment on above: Order Comment: Speci men Type: BLOOD SPECIMENOrdering Facility: [facility] Address: [address] [place] [address] Performed By: #### 4 537-7 ####[facility] [id number] [place] [address] [place] Nuclear Ab IA Ql (S)on 09-30 NIKKI SCR QUAL Negative Normal Negative [facility] Comment on above: Order Comment: Speci men Type: BLOOD SPECIMENOrdering Facility: [facility] Address: [address] [place] [address] Result Comment: The qualitative antinuclear antibody screen test performed using the following antigens: dsDNA, Chromatin, Ribosomal P, SS-A 60, SS-A 52, SS-B, Sm, SmRNP, BLOW MACHINE TENDER STARCH SPRAYING A, BLOW MACHINE TENDER STARCH SPRAYING 68, Scl-70, Gracie-1, and Centromere B. Methodology: Multiplex flow immunoassay. Performed By: #### 4 7383-5 ####[facility] LABCLIA [id number] [place] [address] [place] Rheumatoid fact SerPl-aCncon 09-30-2024 Rheumatoid factor Qn [IU]/mL Normal <16 [facility] Comment on above: Order Comment: Speci men Type: BLOOD SPECIMENOrdering Facility: [facility] Address: [address] [place] [address] Performed By: #### 2 157-6, 1987-12, , 3084-1 ####[facility] LABCLIA [id number] [place] [address] [place] Urate SerPl-mCncon 5 Urate [Mass/Vol] 5.2 mg/dL Normal 2.5-6.6 [facility] Comment on above: Order Comment: Speci men Type: BLOOD SPECIMENOrdering Facility: [facility] Address: [address] [place] [address] Performed By: #### 2 157-6, 1987-12, , 3084-1 ####[facility] LABCLIA [id number] [place] [address] [place] cCP IgG SerPl-aCncon 025 Cyclic citrullinated peptide IgG Qn <15 Normal <20 [facility] Comment on above: Order Comment: Speci men Type: BLOOD SPECIMENOrdering Facility: [facility] Address: [address] [place] [address] Performed By: #### 3 3935-8 ####[facility] LABCLIA [id number] [place] [address] [place] HISTORY PHYSICALon HISTORY PHYSICAL Normal [facility] CBC panel Auto (Bld)on 09-26 Erythrocyte distribution width (RBC) [Ratio] 13.1 % Normal 11.5-15.0 [facility] Comment on above: Order Comment: Speci men Type: BLOOD SPECIMENOrdering Facility: [facility] Address: [address] [place] [address] Performed By: #### 5 8410-2 ####[facility] [id number] [place] [address] [place] Hematocrit (Bld) [Volume fraction] 45.4 % Normal 36.0-46.0 [facility] Comment on above: Order Comment: Speci men Type: BLOOD SPECIMENOrdering Facility: [facility] Address: [address] [place] [address] Performed By: #### 5 8410-2 ####[facility] [id number] [place] [address] [place] Hemoglobin (Bld) [Mass/Vol] 14.8 g/dL Normal 11.5-15.5 [facility] Comment on above: Order Comment: Speci men Type: BLOOD SPECIMENOrdering Facility: [facility] Address: [address] [place] [address] Performed By: #### 5 8410-2 ####[facility] [id number] [place] [address] [place] MCH (RBC) [Entitic mass] 28.7 pg Normal 26.0-34.0 [facility] Comment on above: Order Comment: Speci men Type: BLOOD SPECIMENOrdering Facility: [facility] Address: [address] [place] [address] Performed By: #### 5 8410-2 ####[facility] [id number] [place] [address] [place] MCHC (RBC) [Mass/Vol] 32.6 g/dL Normal 30.5-36.0 [facility] Comment on above: Order Comment: Speci men Type: BLOOD SPECIMENOrdering Facility: [facility] Address: [address] [place] [address] Performed By: #### 5 8410-2 ####[facility] [id number] [place] [address] [place] MCV (RBC) [Entitic vol] 88.2 fL Normal 80.0-100.0 [facility] Comment on above: Order Comment: Speci men Type: BLOOD SPECIMENOrdering Facility: [facility] Address: [address] [place] [address] Performed By: #### 5 8410-2 ####[facility] [id number] [place] [address] [place] Nucleated RBC (Bld) [#/Vol] 10*3/uL Normal <0.01 [facility] Comment on above: Order Comment: Speci men Type: BLOOD SPECIMENOrdering Facility: [facility] Address: [address] [place] [address] Performed By: #### 5 8410-2 ####[facility] [id number] [place] [address] [place] Platelet mean volume (Bld) [Entitic vol] 9.0 fL Normal 9.0-12.7 [facility] Comment on above: Order Comment: Speci men Type: BLOOD SPECIMENOrdering Facility: [facility] Address: [address] [place] [address] Performed By: #### 5 8410-2 ####[facility] [id number] [place] [address] [place] Platelets (Bld) [#/Vol] 285 10*3/uL Normal 150-400 [facility] Comment on above: Order Comment: Speci men Type: BLOOD SPECIMENOrdering Facility: [facility] Address: [address] [place] [address] Performed By: #### 5 8410-2 ####[facility] JONESWNCLIA [id number] [place] [address] [place] RBC (Bld) [#/Vol] 5.15 10*6/uL Normal 3.90-5.20 [facility] Comment on above: Order Comment: Speci men Type: BLOOD SPECIMENOrdering Facility: [facility] Address: [address] [place] [address] Performed By: #### 5 8410-2 ####[facility] [id number] [place] [address] [place] WBC (Bld) [#/Vol] 6.17 10*3/uL Normal 3.70-11.00 [facility] Comment on above: Order Comment: Speci men Type: BLOOD SPECIMENOrdering Facility: [facility] Address: [address] [place] [address] Performed By: #### 5 8410-2 ####[facility] [id number] [place] [address] [place] Comprehensive metabolic 2000 panelon 09-26-2024 Albumin [Mass/Vol] 4.5 g/dL Normal 3.9-4.9 [facility] Comment on above: Order Comment: Speci men Type: BLOOD SPECIMENOrdering Facility: [facility] Address: [address] [place] [address] Performed By: #### 2 4323-8 ####[facility] [id number] [place] [address] [place] ALP [Catalytic activity/Vol] 148 U/L High 34-123 [facility] Comment on above: Order Comment: Speci men Type: BLOOD SPECIMENOrdering Facility: [facility] Address: [address] [place] [address] Performed By: #### 2 4323-8 ####[facility] MILLWNCLIA [id number] [place] [address] [place] ALT [Catalytic activity/Vol] 24 U/L Normal 7-38 [facility] Comment on above: Order Comment: Speci men Type: BLOOD SPECIMENOrdering Facility: [facility] Address: [address] [place] [address] Performed By: #### 2 4323-8 ####[facility] [id number] [place] [address] [place] Anion gap [Moles/Vol] 10 mmol/L Normal 8-15 [facility] Comment on above: Order Comment: Speci men Type: BLOOD SPECIMENOrdering Facility: [facility] Address: [address] [place] [address] Performed By: #### 2 4323-8 ####[facility] [id number] [place] [address] [place] AST [Catalytic activity/Vol] 20 U/L Normal 13-35 [facility] Comment on above: Order Comment: Speci men Type: BLOOD SPECIMENOrdering Facility: [facility] Address: [address] [place] [address] Performed By: #### 2 4323-8 ####[facility] [id number] [place] [address] [place] Bilirubin [Mass/Vol] 0.6 mg/dL Normal 0.2-1.3 [facility] Comment on above: Order Comment: Speci men Type: BLOOD SPECIMENOrdering Facility: [facility] Address: [address] [place] [address] Performed By: #### 2 4323-8 ####[facility] [id number] [place] [address] [place] Calcium [Mass/Vol] 10.1 mg/dL Normal 8.5-10.2 [facility] Comment on above: Order Comment: Speci men Type: BLOOD SPECIMENOrdering Facility: [facility] Address: [address] [place] [address] Performed By: #### 2 4323-8 ####[facility] MILLWNCLIA [id number] [place] [address] [place] Chloride [Moles/Vol] 102 mmol/L Normal 98-107 [facility] Comment on above: Order Comment: Speci men Type: BLOOD SPECIMENOrdering Facility: [facility] Address: [address] [place] [address] Performed By: #### 2 4323-8 ####[facility] [id number] [place] [address] [place] CO2 [Moles/Vol] 27 mmol/L Normal 22-30 [facility] Comment on above: Order Comment: Speci men Type: BLOOD SPECIMENOrdering Facility: [facility] Address: [address] [place] [address] Performed By: #### 2 4323-8 ####[facility] [id number] [place] [address] [place] Creatinine [Mass/Vol] 0.95 mg/dL Normal 0.58-0.96 [facility] Comment on above: Order Comment: Speci men Type: BLOOD SPECIMENOrdering Facility: [facility] Address: [address] [place] [address] Performed By: #### 2 4323-8 ####[facility] [id number] [place] [address] [place] Creatinine and Glomerular filtration rate.predicted panel (S/P/Bld) 73 mL/min/1.73m??? Normal >=60 [facility] Comment on above: Order Comment: Cassandra cunningham Type: BLOOD SPECIMENOrdering Facility: [facility] Address: [address] [place] [address] Result Comment: Ninfa mated Glomerular Filtration Rate [...] actual GFR. Performed By: #### 2 4323-8 ####[facility] [id number] [place] [address] [place] Glucose [Mass/Vol] 99 mg/dL Normal 74-99 [facility] Comment on above: Order Comment: Cassandra cunningham Type: BLOOD SPECIMENOrdering Facility: [facility] Address: [address] [place] [address] Result Comment: The [place] [employer] (ADA) provides guidance for cutoff [...] Standards of Medical Care in Diabetes 2016, [place] [employer]. Diabetes Care. 2016.39(Suppl 1). Performed By: #### 2 4323-8 ####[facility] [id number] [place] [address] [place] Potassium [Moles/Vol] 4.3 mmol/L Normal 3.7-5.1 [facility] Comment on above: Order Comment: Cassandra cunningham Type: BLOOD SPECIMENOrdering Facility: [facility] Address: [address] [place] [address] Performed By: #### 2 4323-8 ####[facility] ADAMWNCLIA [id number] [place] [address] [place] Protein [Mass/Vol] 7.8 g/dL Normal 6.3-8.0 [facility] Comment on above: Order Comment: Speci men Type: BLOOD SPECIMENOrdering Facility: [facility] Address: [address] [facility] [place] [address] Performed By: #### 2 4323-8 ####[facility] [id number] [place] [address] [place] Sodium [Moles/Vol] 139 mmol/L Normal 136-144 [facility] Comment on above: Order Comment: Speci men Type: BLOOD SPECIMENOrdering Facility: [facility] Address: [address] [place] [address] Performed By: #### 2 4323-8 ####[facility] [id number] [place] [address] [place] Urea nitrogen [Mass/Vol] 14 mg/dL Normal 7-21 [facility] Comment on above: Order Comment: Speci men Type: BLOOD SPECIMENOrdering Facility: [facility] Address: [facility] [place] [address] Performed By: #### 2 4323-8 ####[facility] [id number] [place] [address] [place] CNCOon 09-22-2024 CNCO Letter Text Normal [facility] CNOVon 09-22-2024 CNOV Office Visit (SPAGWO ) SRI CHACON ([id number]) 1975 F Date Time Provider Department 09/22/24 10:45 AM FRIDA VARGAS During your visit today, we recorded the following information about you: Pulse Respiration Normal [facility] Micah 09-22-2024 CNPN Telephone (SPAGWO) SRI CHACON ([id number]) 1975 F Date Time Provider Department 09/22/24 [...] No 8. Does this procedure require a transfer driver? Yes If yes, has patient been notified that a transfer driver is needed and must be present at check in? yes 9. Were the pre-procedure instructions explained and provided to the patient? Yes 10. Do you have a pacemaker? No 11. Do you have an internal stimulator of any kind? 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 Reason for Visit: Injections [...] Encounter Status:Closed by SYLVIA BASS on 09/22/24 [facility] CNOVon 09-21-2024 CNOV Normal [facility] CNTHERAPYon 09-12-2024 CNTHERAPY Normal [facility] CNPNon 09-05-2024 CNPN Telephone (AGSPINE3) SRI CHACON ([id number]) 1975 F Date Time Provider Department 09/05/24 PREBIFRIDA PERALESPINE3 During your visit today, we recorded the following information about you: Patience Choudhary 09/05/2024 1:21 PM Signed ----- Message from Joya Sainz sent at 09/05/2024 11:12 AM EST ----- Regarding: Spine and Pain/Consult to Pain Mgt/[place] area Contact: Subject Line Format: Orthopedics / [Provider Name or Open AND Body Part] / [Issue] Patient has been identified by name and Date of (Y/N): Y Patient: Sri Chacon Date of : 1975 Previous Provider Seen: Dr Ricci 09/2021 Diagnosis/Reason For Visit: Chronic Migraine Reason for the call/escalation: can not find appt. in [facility], Patient said she was told to schedule with Jimena. Patient has a consult to Pain Management but would like seen in [facility]. If reason for call/escalation is discharge from ED/ER or Hospital, which facility was the patient seen at: N Was an appointment scheduled (Y/N): N Person calling if other than patient: Pt Return call to if other than patient: Pt Best contact number: [phone] Thank you, Joya Weaver September 05, 2024 [...] Encounter Status:Closed by PATIENCE CHOUDHARY on 09/05/24 [facility] Telephone (NEADFV) SRI CHACON ([id number]) 1975 F Date Time Provider Department 09/01/24 YESICA BEAN NEKEISHAFV During your visit today, we recorded the following information about you: Bonnie Talavera 09/01/2024 12:22 PM Signed Per Leia joseph at [facility] pharmacy at [phone] patient at filled diphenhydrAMINE (BENADRYL) 50 mg/mL [...] Secure chat sent to Dr. Bean. Lay McintoshCANDELARIA 09/09/2024 9:17 AM Signed Confirmed with provider, [...] Encounter Status:Closed by YESICA BEAN on 09/12/24 [facility] [id number] 08-31-2024 [id number] [facility] CNPTOUTREACHon 08-31-2024 CNPTOUTREACH [facility] CNTHERAPYon 08-31-2024 CNTHERAPY [facility] CNOVon 08-19-2024 CNOV [facility] CNTHERAPYon 08-15-2024 CNTHERAPY [facility] CNTHERAPYon 08-11-2024 CNTHERAPY [facility] CNTHERAPYon 08-08-2024 CNTHERAPY [facility] CNOVon 08-02-2024 CNOV Normal [facility] CNTHERAPYon 08-02-2024 CNTHERAPY [facility] CNTHERAPYon 07-27-2024 CNTHERAPY [facility] [id number] 07-21-2024 [id number] [facility] CNTHERAPYon 07-21-2024 CNTHERAPY [facility] THERAPY NTon 07-21-2024 THERAPY NT [facility] CNOVon 07-14-2024 CNOV Normal [facility] US LEG VEIN DVT UNL VAS LABo n 07-14-2024 US LEG VEIN DVT UNL VAS LAB Normal [facility] US Lower extremity veinon Non-Invasive Vascular Laboratory [facility] Lower Extremity Venous Duplex Unilateral - Left [...] below for Image [facility] ANES POSTPROC EVALon 024 ANES POSTPROC EVAL Normal [facility] ANES PRE-OPon 06-30-2024 ANES PRE-OP Normal [facility] OPERATIVE NOon 06-30-2024 OPERATIVE NO Normal [facility] HISTORY PHYSICALon HISTORY PHYSICAL Normal [facility] ALLIED HEALTHon 06-22-2024 ALLIED HEALTH Normal [facility] ALLIED HEALTH Normal [facility] CNDSon 06-22-2024 CNDS Normal [facility] NURSING PROGon 06-22-2024 NURSING PROG Normal [facility] SOCIAL WORKon 06-22-2024 SOCIAL WORK Normal [facility] CNPNon 06-21-2024 CNPN Normal [facility] CONSULTon 06-21-2024 CONSULT Normal [facility] CONSULT PROGon 06-21-2024 CONSULT PROG Normal [facility] SOCIAL WORKon 06-21-2024 SOCIAL WORK Normal [facility] CONSULTon 06-20-2024 CONSULT Normal [facility] THYROID PEROXIDASE ANTIBODYo n 06-20-2024 TPO Ab Qn 337.4 [IU]/mL High <5.6 [facility] Comment on above: Order Comment: Speci men Type: BLOOD SPECIMENOrdering Facility: [facility] Address: [address] [place] [address] Result Comment: Thyr oid Peroxidase Antibody test is used as an aid in diagnosis of autoimmune thyroid disease. Clinical correlation is required. Performed By: #### M ICRO ####[facility] LABCLIA [id number] [place] [address] [place] CBC W Auto Differential pane l (Bld)on 06-19-2024 Basophils (Bld) [#/Vol] 0.03 10*3/uL Normal <0.11 [facility] Comment on above: Order Comment: Speci men Type: BLOOD SPECIMENOrdering Facility: [facility] Address: [address] [place] [address] Performed By: #### 5 7021-8 ####[facility] LABIA [id number] [place] [address] [place] Basophils/100 WBC (Bld) 0.4 % Normal [facility] Comment on above: Order Comment: Speci men Type: BLOOD SPECIMENOrdering Facility: [facility] Address: [address] [place] [address] Performed By: #### 5 7021-8 ####[facility] LABIA [id number] [place] [address] [place] Differential cell count method Nom (Bld) Auto Normal [facility] Comment on above: Order Comment: Speci men Type: BLOOD SPECIMENOrdering Facility: [facility] Address: [address] [place] [address] Performed By: #### 5 7021-8 ####[facility] LABCLIA [id number] [place] [address] [place] Eosinophils (Bld) [#/Vol] 0.45 10*3/uL Normal <0.46 [facility] Comment on above: Order Comment: Speci men Type: BLOOD SPECIMENOrdering Facility: [facility] Address: [address] [place] [address] Performed By: #### 5 7021-8 ####[facility] LABCLIA [id number] [place] [address] [place] Eosinophils/100 WBC (Bld) 6.7 % Normal [facility] Comment on above: Order Comment: Speci men Type: BLOOD SPECIMENOrdering Facility: [facility] Address: [address] [place] [address] Performed By: #### 5 7021-8 ####[facility] LABCLIA [id number] [place] [address] [place] Erythrocyte distribution width (RBC) [Ratio] 13.6 % Normal 11.5-15.0 [facility] Comment on above: Order Comment: Speci men Type: BLOOD SPECIMENOrdering Facility: [facility] Address: [address] [place] [address] Performed By: #### 5 7021-8 ####[facility] LABCLIA [id number] [place] [address] [place] Hematocrit (Bld) [Volume fraction] 41.8 % Normal 36.0-46.0 [facility] Comment on above: Order Comment: Speci men Type: BLOOD SPECIMENOrdering Facility: [facility] Address: [address] [place] [address] Performed By: #### 5 7021-8 ####[facility] LABCLIA [id number] [place] [address] [place] Hemoglobin (Bld) [Mass/Vol] 13.7 g/dL Normal 11.5-15.5 [facility] Comment on above: Order Comment: Speci men Type: BLOOD SPECIMENOrdering Facility: [facility] Address: [address] [place] [address] Performed By: #### 5 7021-8 ####[facility] LABCLIA [id number] [place] [address] [place] Immature granulocytes (Bld) [#/Vol] 10*3/uL Normal <0.10 [facility] Comment on above: Order Comment: Speci men Type: BLOOD SPECIMENOrdering Facility: [facility] Address: [address] [place] [address] Performed By: #### 5 7021-8 ####[facility] LABCLIA [id number] [place] [address] [place] Immature granulocytes/100 WBC (Bld) 0.3 % Normal [facility] Comment on above: Order Comment: Speci men Type: BLOOD SPECIMENOrdering Facility: [facility] Address: [address] [place] [address] Performed By: #### 5 7021-8 ####[facility] LABCLIA [id number] [place] [address] [place] Lymphocytes (Bld) [#/Vol] 2.32 10*3/uL Normal 1.00-4.00 [facility] Comment on above: Order Comment: Speci men Type: BLOOD SPECIMENOrdering Facility: [facility] Address: [address] [place] [address] Performed By: #### 5 7021-8 ####[facility] LABCLIA [id number] [place] [address] [place] Lymphocytes/100 WBC (Bld) 34.7 % Normal [facility] Comment on above: Order Comment: Speci men Type: BLOOD SPECIMENOrdering Facility: [facility] Address: [address] [place] [address] Performed By: #### 5 7021-8 ####[facility] LABIA [id number] [place] [address] [place] MCH (RBC) [Entitic mass] 28.8 pg Normal 26.0-34.0 [facility] Comment on above: Order Comment: Speci men Type: BLOOD SPECIMENOrdering Facility: [facility] Address: [address] [place] [address] Performed By: #### 5 7021-8 ####[facility] LABIA [id number] [place] [address] [place] MCHC (RBC) [Mass/Vol] 32.8 g/dL Normal 30.5-36.0 [facility] Comment on above: Order Comment: Speci men Type: BLOOD SPECIMENOrdering Facility: [facility] Address: [address] [place] [address] Performed By: #### 5 7021-8 ####[facility] LABIA [id number] [place] [address] [place] MCV (RBC) [Entitic vol] 87.8 fL Normal 80.0-100.0 [facility] Comment on above: Order Comment: Speci men Type: BLOOD SPECIMENOrdering Facility: [facility] Address: [address] [place] [address] Performed By: #### 5 7021-8 ####[facility] LABIA [id number] [place] [address] [place] Monocytes (Bld) [#/Vol] 0.71 10*3/uL Normal <0.87 [facility] Comment on above: Order Comment: Speci men Type: BLOOD SPECIMENOrdering Facility: [facility] Address: [address] [place] [address] Performed By: #### 5 7021-8 ####[facility] LABIA [id number] [place] [address] [place] Monocytes/100 WBC (Bld) 10.6 % Normal [facility] Comment on above: Order Comment: Speci men Type: BLOOD SPECIMENOrdering Facility: [facility] Address: [address] [place] [address] Performed By: #### 5 7021-8 ####[facility] LABCLIA [id number] [place] [address] [place] Neutrophils (Bld) [#/Vol] 3.15 10*3/uL Normal 1.45-7.50 [facility] Comment on above: Order Comment: Speci men Type: BLOOD SPECIMENOrdering Facility: [facility] Address: [address] [place] [address] Performed By: #### 5 7021-8 ####[facility] LABCLIA [id number] [place] [address] [place] Neutrophils/100 WBC (Bld) 47.3 % Normal [facility] Comment on above: Order Comment: Speci men Type: BLOOD SPECIMENOrdering Facility: [facility] Address: [address] [place] [address] Performed By: #### 5 7021-8 ####[facility] LABCLIA [id number] [place] [address] [place] Nucleated RBC (Bld) [#/Vol] 10*3/uL Normal <0.01 [facility] Comment on above: Order Comment: Speci men Type: BLOOD SPECIMENOrdering Facility: [facility] Address: [address] [place] [address] Performed By: #### 5 7021-8 ####[facility] LABCLIA [id number] [place] [address] [place] Nucleated RBC/100 WBC (Bld) [Ratio] 0.0 /100 WBC Normal [facility] Comment on above: Order Comment: Speci men Type: BLOOD SPECIMENOrdering Facility: [facility] Address: [address] [place] [address] Performed By: #### 5 7021-8 ####[facility] LABIA [id number] [place] [address] [place] Platelet mean volume (Bld) [Entitic vol] 9.2 fL Normal 9.0-12.7 [facility] Comment on above: Order Comment: Speci men Type: BLOOD SPECIMENOrdering Facility: [facility] Address: [address] [place] [address] Performed By: #### 5 7021-8 ####[facility] LABIA [id number] [place] [address] [place] Platelets (Bld) [#/Vol] 260 10*3/uL Normal 150-400 [facility] Comment on above: Order Comment: Speci men Type: BLOOD SPECIMENOrdering Facility: [facility] Address: [address] [place] [address] Performed By: #### 5 7021-8 ####[facility] LABIA [id number] [place] [address] [place] RBC (Bld) [#/Vol] 4.76 10*6/uL Normal 3.90-5.20 [facility] Comment on above: Order Comment: Speci men Type: BLOOD SPECIMENOrdering Facility: [facility] Address: [address] [place] [address] Performed By: #### 5 7021-8 ####[facility] LABIA [id number] [place] [address] [place] WBC (Bld) [#/Vol] 6.68 10*3/uL Normal 3.70-11.00 [facility] Comment on above: Order Comment: Speci men Type: BLOOD SPECIMENOrdering Facility: [facility] Address: [address] [place] [address] Performed By: #### 5 7021-8 ####[facility] LABCLIA [id number] [address] [address] [place] Comprehensive metabolic 2000 panelon 06-19-2024 Albumin [Mass/Vol] 4.0 g/dL Normal 3.9-4.9 [facility] Comment on above: Order Comment: Speci men Type: BLOOD SPECIMENOrdering Facility: [facility] Address: [address] [place] [address] Performed By: #### 2 777-1, 3016-3, 3051-0, 3026-2, 59094-9, 68786-6 ####[facility] LABCLIA [id number] [place] [address] [place] ALP [Catalytic activity/Vol] 87 U/L Normal 34-123 [facility] Comment on above: Order Comment: Speci men Type: BLOOD SPECIMENOrdering Facility: [facility] Address: [address] [place] [address] Performed By: #### 2 777-1, 3016-3, 3051-0, 3026-2, 73353-0, 15876-9 ####[facility] LABIA [id number] [place] [address] [place] ALT [Catalytic activity/Vol] 15 U/L Normal 7-38 [facility] Comment on above: Order Comment: Speci men Type: BLOOD SPECIMENOrdering Facility: [facility] Address: [address] [place] [address] Performed By: #### 2 777-1, 3016-3, 3051-0, 3026-2, 78892-2, 45508-4 ####[facility] LABCLIA [id number] [place] [id number] [place] Anion gap [Moles/Vol] 13 mmol/L Normal 8-15 [facility] Comment on above: Order Comment: Speci men Type: BLOOD SPECIMENOrdering Facility: [facility] Address: [address] [place], [place] [address] [id number] Performed By: #### 2 777-1, 3016-3, 3051-0, 3026-2, 89088-1, ####[facility] LABCLIA [id number] [facility] [address] [address] [place] AST [Catalytic activity/Vol] 16 U/L Normal 13-35 [facility] Comment on above: Order Comment: Speci men Type: BLOOD SPECIMENOrdering Facility: [facility] Address: [address] [place] [id number] Performed By: #### 2 777-1, 3016-3, 305-0, 3026-2, 58010-9, ####[facility] LABCLIA [id number] [address] [address] [place] Bilirubin [Mass/Vol] 0.3 mg/dL Normal 0.2-1.3 [facility] Comment on above: Order Comment: Speci men Type: BLOOD SPECIMENOrdering Facility: [facility] Address: [address] [place] [id number] Performed By: #### 2 777-1, 3016-3, 3051-0, 3026-2, 87445-9, ####[facility] LABCLIA [id number] [facility] [place] [id number] [place] Calcium [Mass/Vol] 9.4 mg/dL Normal 8.5-10.2 [facility] Comment on above: Order Comment: Speci men Type: BLOOD SPECIMENOrdering Facility: [facility] Address: [address] [place] [id number] Performed By: #### 2 777-1, 3016-3, 3051-0, 3026-2, 69700-0, ####[facility] LABCLIA [id number] [facility] [place] [id number] [place] Chloride [Moles/Vol] 107 mmol/L Normal 98-107 [facility] Comment on above: Order Comment: Speci men Type: BLOOD SPECIMENOrdering Facility: [facility] Address: [address] [place] [address] Performed By: #### 2 777-1, 3016-3, 3051-0, 3026-2, 48709-1, 54524-8 ####[facility] LABIA [id number] [place] [address] [place] CO2 [Moles/Vol] 24 mmol/L Normal 22-30 [facility] Comment on above: Order Comment: Speci men Type: BLOOD SPECIMENOrdering Facility: [facility] Address: [address] [place] [address] Performed By: #### 2 777-1, 3016-3, 3051-0, 3026-2, 12056-6, 66512-8 ####[facility] LABIA [id number] [place] [address] [place] Creatinine [Mass/Vol] 1.08 mg/dL High 0.58-0.96 [facility] Comment on above: Order Comment: Speci men Type: BLOOD SPECIMENOrdering Facility: [facility] Address: [address] [place] [address] Performed By: #### 2 777-1, 3016-3, 3051-0, 3026-2, 92446-4, 44368-1 ####[facility] LABIA [id number] [place] [id number] [place] Creatinine and Glomerular filtration rate.predicted panel (S/P/Bld) 63 mL/min/1.73m??? Normal >=60 [facility] Comment on above: Order Comment: Speci men Type: BLOOD SPECIMENOrdering Facility: [facility] Address: [address] [place] [address] Result Comment: Ninfa mated Glomerular Filtration Rate [...] reflect actual GFR. Performed By: #### 2 777-1, 3016-3, 3051-0, 3026-2, 07191-7, 70306-3 ####[facility] LABCLIA [id number] [address] [address] [place] Glucose [Mass/Vol] 92 mg/dL Normal 74-99 [facility] Comment on above: Order Comment: Cassandra cunningham Type: BLOOD SPECIMENOrdering Facility: [facility] Address: [address] [place] [address] Result Comment: The [place] [employer] (ADA) provides guidance for cutoff [...] Standards of Medical Care in Diabetes 2016, [place] [employer]. Diabetes Care. 2016.39(Suppl 1). Performed By: #### 2 777-1, 6-3, 3051-0, 3026-2, 22017-5, 72835-9 ####[facility] LABCLIA [id number] [address] [address] [place] Potassium [Moles/Vol] 4.0 mmol/L Normal 3.7-5.1 [facility] Comment on above: Order Comment: Cassandra cunningham Type: BLOOD SPECIMENOrdering Facility: [facility] Address: [address] [place] [address] Performed By: #### 2 777-1, 3016-3, 3051-0, 3026-2, 09063-9, 68503-5 ####[facility] LABCLIA [id number] [address] [address] [place] Protein [Mass/Vol] 6.6 g/dL Normal 6.3-8.0 [facility] Comment on above: Order Comment: Speci men Type: BLOOD SPECIMENOrdering Facility: [facility] Address: [address] [place] [address] Performed By: #### 2 777-1, 3016-3, 3051-0, 3026-2, 77915-0, 91585-1 ####[facility] LABIA [id number] [place] [id number] [place] Sodium [Moles/Vol] 144 mmol/L Normal 136-144 [facility] Comment on above: Order Comment: Speci men Type: BLOOD SPECIMENOrdering Facility: [facility] Address: [address] [place] [address] Performed By: #### 2 777-1, 3016-3, 3051-0, 3026-2, 68607-5, 17195-0 ####[facility] LABIA [id number] [place] [id number] [place] Urea nitrogen [Mass/Vol] 16 mg/dL Normal 7-21 [facility] Comment on above: Order Comment: Speci men Type: BLOOD SPECIMENOrdering Facility: [facility] Address: [address] [place], [place] [id number] Performed By: #### 2 777-1, 3016-3, 3051-0, 3026-2, 97699-3, 03870-3 ####[facility] LABIA [id number] [place] [id number] [place] HCG Preg Ur Qlon 06-19-2024 HCG ( test) Ql (U) Negative Normal Negative [facility] Comment on above: Order Comment: Speci men Type: URINE SPECIMENOrdering Facility: [facility] Address: [address] [place] [address] Result Comment: This test is intended to aid in the early detection of . Very dilute urine samples, as indicated by a low specific gravity, may not contain front desk representative levels of hCG. This test detects [...] for . Performed By: #### 2 106-3 ####[facility] LABCLIA [id number] [place] [address] [place] HISTORY PHYSICALon HISTORY PHYSICAL Normal [facility] Magnesium SerPl-mCncon 06-19 Magnesium [Mass/Vol] 2.5 mg/dL High 1.7-2.3 [facility] Comment on above: Order Comment: Cassandra cunningham Type: BLOOD SPECIMENOrdering Facility: [facility] Address: [address] [place] [address] Performed By: #### 2 777-1, 3016-3, 3051-0, 3026-2, 94188-5, 29501-0 ####[facility] LABCLIA [id number] [place] [address] [place] NURSING PROGon 06-19-2024 NURSING PROG Normal [facility] PT panel Coag (PPP)on 2023 INR Coag (PPP) [Relative time] 0.9 {INR} Normal 0.9-1.3 [facility] Comment on above: Order Comment: Makedai octavio Type: BLOOD SPECIMENOrdering Facility: [facility] Address: [address] [place] [address] Result Comment: Caro min K Antagonist (VKA) Therapeutic Range: INR 2 to 3 (Target INR of 2.5)Note: For patients treated with VKA drugs, such as warfarin, the [place] [employer] 2012 Guideline recommends [...] of 3).Olvin GH, et al. Chest 2012, 141:7S-47SNishgoyo RA, et al. [facility] 2017, 70: 252-289 Performed By: #### 3 4528-0, 66979-7 ####[facility] LABIA [id number] [place] [address] [place] PT Coag (PPP) [Time] 10.0 s Normal 9.7-13.0 [facility] Comment on above: Order Comment: Speci men Type: BLOOD SPECIMENOrdering Facility: [facility] Address: [address] [place] [address] Performed By: #### 3 4528-0, 43684-2 ####[facility] [id number] [place] [address] [place] Phosphate SerPl-mCncon 06-19 Phosphate [Mass/Vol] 3.0 mg/dL Normal 2.7-4.8 [facility] Comment on above: Order Comment: Speci men Type: BLOOD SPECIMENOrdering Facility: [facility] Address: [address] [place] [address] Performed By: #### 2 777-1, 3016-3, 3051-0, 3026-2, 86971-1, 06778-3 ####[facility] LABCLIA [id number] [place] [id number] [place] T3Free SerPl-mCncon 06-19-20 24 Free T3 [Mass/Vol] 3.3 pg/mL Normal 2.3-4.1 [facility] Comment on above: Order Comment: Speci men Type: BLOOD SPECIMENOrdering Facility: [facility] Address: [address] [place] [address] Performed By: #### 2 777-1, 3016-3, 3051-0, 3026-2, 32371-6, 28031-1 ####[facility] LABCLIA [id number] [place] [address] [place] T4 SerPl-mCncon 06-19-2024 T4 [Mass/Vol] 5.6 ug/dL Normal 5.5-10.2 [facility] Comment on above: Order Comment: Speci men Type: BLOOD SPECIMENOrdering Facility: [facility] Address: [address] [place] [address] Performed By: #### 2 777-1, 3016-3, 3051-0, 3026-2, 31021-6, 44239-0 ####[facility] LABIA [id number] [place] [address] [place] TOXICOLOGY SCREEN, ROUTINE U RINEon 06-19-2024 Amphetamines Confirm (U) [Mass/Vol] Negative Normal Negative [facility] Comment on above: Order Comment: Speci men Type: URINE SPECIMENOrdering Facility: [facility] Address: [address] [place] [address] Result Comment: Cuto ff threshold at 1000 ng/mL. Performed By: #### U TOX2 ####[facility] LABCLIA [id number] [place] [address] [place] BARBITURATES, URINE Negative Normal Negative [facility] Comment on above: Order Comment: Speci men Type: URINE SPECIMENOrdering Facility: [facility] Address: [address] [place] [address] Result Comment: Cuto ff threshold at 200 ng/mL. Performed By: #### U TOX2 ####[facility] LABCLIA [id number] [place] [address] [place] BENZODIAZEPINES, UR Negative Normal Negative [facility] Comment on above: Order Comment: Speci men Type: URINE SPECIMENOrdering Facility: [facility] Address: [address] [place] [address] Result Comment: Cuto ff threshold at 200 ng/mL. Performed By: #### U TOX2 ####[facility] LABIA [id number] [place] [address] [place] Cannabinoids Screen Ql (U) Negative Normal Negative [facility] Comment on above: Order Comment: Speci men Type: URINE SPECIMENOrdering Facility: [facility] Address: [address] [place] [address] Result Comment: Cuto ff threshold at 50 ng/mL. Performed By: #### U TOX2 ####[facility] LABIA [id number] [place] [address] [place] Cocaine Ql (U) Negative Normal Negative [facility] Comment on above: Order Comment: Speci men Type: URINE SPECIMENOrdering Facility: [facility] Address: [address] [place] [address] Result Comment: Cuto ff threshold at 300 ng/mL. Performed By: #### U TOX2 ####[facility] LABCLIA [id number] [place] [address] [place] Ethanol (U) [Mass/Vol] <11 Normal <11 [facility] Comment on above: Order Comment: Speci men Type: URINE SPECIMENOrdering Facility: [facility] Address: [address] [place] [address] Performed By: #### U TOX2 ####[facility] LABIA [id number] [place] [address] [place] Opiates Screen Ql (U) Negative Normal Negative [facility] Comment on above: Order Comment: Speci men Type: URINE SPECIMENOrdering Facility: [facility] Address: [address] [place] [address] Result Comment: Cuto ff threshold at 300 ng/mL. Performed By: #### U TOX2 ####[facility] LABCLIA [id number] [address] [place] oxyCODONE cutoff Screen (U) [Mass/Vol] Negative Normal Negative [facility] Comment on above: Order Comment: Speci men Type: URINE SPECIMENOrdering Facility: [facility] Address: [address] [place] [address] Result Comment: Cuto ff threshold at 100 ng/mL. Performed By: #### U TOX2 ####[facility] LABCLIA [id number] [address] [place] Phencyclidine Ql (U) Negative Normal Negative [facility] Comment on above: Order Comment: Speci men Type: URINE SPECIMENOrdering Facility: [facility] Address: [address] [place] [address] Result Comment: Cuto ff threshold at 25 ng/mL. Performed By: #### U TOX2 ####[facility] LABIA [id number] [place] [address] [place] TSH SerPl-aCncon 06-19-2024 TSH Qn 7.390 m[IU]/L High 0.270-4.200 [facility] Comment on above: Order Comment: Speci men Type: BLOOD SPECIMENOrdering Facility: [facility] Address: [address] [place] [address] Result Comment: If t he patient is , TSH reference range varies by gestational period:First Trimester (weeks 9-12): 0.180-2.990 mIU/LSecond Trimester: 0.110-3.980 mIU/LThird Trimester: 0.480-4.710 mIU/LDonovan L, et al. A Practical Approach for the Verifications and Determination of Site- and Trimester-Specific Reference Intervals for Thyroid Function tests in . Thyroid, 2019:29:3:412-420. Keith E, et al. 2017 Guidelines of the [place] Thy[employer] Association for the Diagnosis and Management of Thyroid Disease during and the . Thyroid, 2017:27:3:315-389. Performed By: #### 2 777-1, 3016-3, 3051-0, 3026-2, 05161-5, 86564-3 ####[facility] LABIA [id number] [place] [id number] [place] Zonisamide SerPl-mCncon - Zonisamide [Mass/Vol] 4.7 ug/mL Low 10.0-40.0 [facility] Comment on above: Order Comment: Specmarvin cunningham Type: BLOOD SPECIMENOrdering Facility: [facility] Address: [address] [place] [address] Result Comment: This test was developed, and its performance characteristics determined by the [facility] Department of Pathology and Laboratory Medicine. It has not been cleared or approved by the FDA. The [facility] Department of Pathology and Laboratory Medicine is regulated under CLIA as qualified to perform high-complexity testing. This test is used for clinical purposes. It should not be regarded as investigational or for research. Performed By: #### 2 9620-2 ####[facility] [id number] [place] [id number] [place] aPTT PPPon 06-19-2024 aPTT Coag (PPP) [Time] 28.4 s Normal 23.0-32.4 [facility] Comment on above: Order Comment: Cassandra cunningham Type: BLOOD SPECIMENOrdering Facility: [facility] Address: [address] [place] [address] Performed By: #### 3 4528-0, 14098-7 ####[facility] LABIA [id number] [place] [id number] [place] US Lower extremity veinon Non-Invasive Vascular Laboratory [facility] Lower Extremity Venous Duplex Unilateral - Left [...] small saphenous vein. Technologist: Deborah Hanson RVT [facility] Ordering physician: IRENE RANDOLPH Interpreting physician: JERMAIN Green DO Final See Link below for Image [facility] XR Knee - left 4 Viewson IMPRESSION: Normal radiographs of both knees. Potato Chip Sorter: FLORENCE Transcribe Date/Time: Feb 04 2024 6:29P Dictated by : STELLA HANSON MD This examination was interpreted and the report reviewed and electronically signed by: STELLA HANSON MD on Feb 04 2024 6:29PM [facility] DIVISION OF RADIOLOGY * * *Final Report* [...] No joint effusions. DIVISION OF RADIOLOGY Provider, [facility] - 02/04/2024 * * *Final Report* * [...] IMPRESSION IMPRESSION: Normal radiographs of both knees. Potato Chip Sorter: FLORENCE Transcribe Date/Time: Feb 04 2024 6:29P Dictated by : STELLA HANSON MD This examination was interpreted and the report reviewed and electronically signed by: STELLA HANSON MD on Feb 04 2024 6:29PM EST [facility] Radiology Study observation (narrative) [facility] XR Knee - left 4 ViewsOrdere d By: Cc Provider on 02-04-2024 [facility] Laboratory - Drug toxicology Ordered By: Gordy Ruiz on 10-20-2023 Amphetamines Ql (U) Negative <1000 ng/mL [facility] Benzodiazepines Ql (U) Negative < 200 ng/mL [facility] Cannabinoids Screen Ql (U) Negative < 50 ng/mL [facility] Cocaine Ql (U) Negative < 300 ng/mL [facility] Opiates Ql (U) Negative < 300 ng/mL [facility] No Panel InformationOrdered By: Gordy Ruiz on 10-20-2023 MDMA (Ecstasy) Screen Negative < 500 ng/mL [facility] Miscellaneous Test See comment [facility] Comment on above: [id number] 6+OXYCODONE-B UND (ng/mL) DRUG RESULT SCREEN CUTOFF____ Amphetamines,Urine Negative ng/mL 1000 Amphetamine test includes Amphetamine and Methamphetamine.Barbiturates Negative ng/mL 200Benzodiazepines Negative ng/mL 200Cannabinoid Negative ng/mL 20Cocaine (Metab) Negative ng/mL 300Opiates Negative ng/mL 300 Opiates test includes Codeine, Morphine, Hydromorphone, Hydrocodone. Oxycodone/Oxymorphone,Urine Negative ng/mL 300 Test includes Oxycodone and Oxymorphone. TESTING PERFORMED AT [facility]. ORIGINAL REPORT ON FILE IN LAB CONTAINS ADDITIONAL TEST SITE INFORMATION. Urine Barbiturates Screen Negative < 200 ng/mL [facility] Urine Drug Screen Comment [facility] Comment on above: CONFIRMATORY TESTING FOR ALL [...] TESTING MUST BE ORDERED SEPARATELY. USE TESTMNEMONIC: NCCA Urine Methadone Screen Negative < 300 ng/mL [facility] Urine phencyclidine (PCP) de tectionOrdered By: Gordy Ruiz on 10-20-2023 Phencyclidine Ql (U) Negative < 25 ng/mL [facility] Serum or plasma uric acid me asurement (mass/volume)Ordered By: Vince Wall on 09-28-2023 Urate [Mass/Vol] 5.4 mg/dL 2.6-6.0 [facility] Comment on above: The drugs N-Acetylcy steine and Metamizole may falsely depress this assay. XR Lumbar spine 3 Viewson IMPRESSION: Sclerosi s along the superior endplate of L1 vertebral body. Consider follow-up. Potato Chip Sorter: PSCB Transcribe Date/Time: Aug 24 2023 3:50P Dictated by : FILEMON BURT MD This examination was interpreted and the report reviewed and electronically signed by: FILEMON BURT MD on Aug 24 2023 3:53PM [facility] DIVISION OF RADIOLOGY * * *Final Report* [...] spine are presented. FINDINGS: There are five afe-lsu-swzbhtp lumbar vertebrae. No subluxation seen. Sclerosis along the superior endplate of the L1 vertebral body, seen on lateral view. The disc spaces are well preserved. There is no significant osteophyte formation. DIVISION OF RADIOLOGY Provider, [facility] - 08/24/2023 * * *Final Report* * [...] spine are presented. FINDINGS: There are five yvq-tsn-uibdyhi lumbar vertebrae. No subluxation seen. Sclerosis along the superior endplate of the L1 vertebral body, seen on lateral view. The disc spaces are well preserved. There is no significant osteophyte formation. IMPRESSION IMPRESSION: Sclerosis along the superior endplate of L1 vertebral body. Consider follow-up. Potato Chip Sorter: FLORENCE Transcribe Date/Time: Aug 24 2023 3:50P Dictated by : FILEMON BURT MD This examination was interpreted and the report reviewed and electronically signed by: FILEMON BURT MD on Aug 24 2023 3:53PM EST [facility] Radiology Study observation (narrative) [place] [facility] XR Lumbar spine 3 ViewsOrder ed By: Ccf Provider on 08-24-2023 [facility] STREP A MOLECULAR (POC)on Procedural Control Valid [facility] Strep A (POCT) Negative Negative [facility] MRI ANKLE WO IVCON RIGHTon 0 04-10-2023 [facility] NM MYOCARDIAL SPECT STRESS/R ESTon 04-08-2023 [...] Date: 04/08/2023 6:25:39 PM Ordering Provider:Dayan Palomo [facility] ([place]) .Auto Diffon 03-19-2023 Basophil, Absolute 0.0 10 3/mcL Normal 0.0-0.2 On license of [facility] ([place]) Comment on above: Performed By: #### A TRACEY, GFR, CBC, LIPID, CMP, ADIFF, TSH, MG, PBNP #### [address] [address] Basophils/100 WBC (Bld) 0.5 % Normal 0.0-2.5 [facility] ([place]) Comment on above: Performed By: #### A TRACEY, GFR, CBC, LIPID, CMP, ADIFF, TSH, MG, PBNP #### [address] [address] Eosinophil, Absolute 0.6 10 3/mcL High 0.0-0.4 [facility] ([place]) Comment on above: Performed By: #### A TRACEY, GFR, CBC, LIPID, CMP, ADIFF, TSH, MG, PBNP #### [address] [address] Eosinophils/100 WBC (Bld) 7.5 % High 0.0-7.0 [facility] ([place] Comment on above: Performed By: #### A TRACEY, GFR, CBC, LIPID, CMP, ADIFF, TSH, MG, PBNP #### [address] [address] Lymphocyte, Absolute 1.8 10 3/mcL Normal 0.8-3.9 [facility] ([place] Comment on above: Performed By: #### A TRACEY, GFR, CBC, LIPID, CMP, ADIFF, TSH, MG, PBNP #### [address] [address] Lymphocytes/100 WBC (Bld) 24.2 % Normal 10.0-50.0 [facility] ([place] Comment on above: Performed By: #### A TRACEY, GFR, CBC, LIPID, CMP, ADIFF, TSH, MG, PBNP #### [address] [address] Monocyte, Absolute 0.7 10 3/mcL Normal 0.2-1.0 On license of [facility] ([place]) Comment on above: Performed By: #### A TRACEY, GFR, CBC, LIPID, CMP, ADIFF, TSH, MG, PBNP #### [address] [address] Monocytes/100 WBC (Bld) 8.8 % Normal 1.7-13.0 [facility] ([place] Comment on above: Performed By: #### A TRACEY, GFR, CBC, LIPID, CMP, ADIFF, TSH, MG, PBNP #### [address] [address] Neutrophils/100 WBC (Bld) 59.0 % Normal 37.0-80.0 [facility] ([place] Comment on above: Performed By: #### A TRACEY, GFR, CBC, LIPID, CMP, ADIFF, TSH, MG, PBNP #### [address] [address] .GFRon 03-19-2023 GFR Non- 82 ml/min/1.73sqm Normal [facility] ([place]) Comment on above: Result Comment: GFR Population [...] LIPID, CMP, ADIFF, TSH, MG, PBNP #### [address] [address] GFR 100 ml/min/1.73sqm Normal [facility] ([place]) Comment on above: Result Comment: GFR Population [...] LIPID, CMP, ADIFF, TSH, MG, PBNP #### [address] [address] .NEUABSon 03-19-2023 Neutrophil, Absolute 4.5 10 3/mcL Normal 2.9-6.2 [facility] ([place] Comment on above: Performed By: #### A TRACEY, GFR, CBC, LIPID, CMP, ADIFF, TSH, MG, PBNP #### [address] [address] CBCon 03-19-2023 Erythrocyte distribution width (RBC) [Ratio] 12.7 % Normal 11.5-14.5 [facility] ([place] Comment on above: Performed By: #### A TRACEY, GFR, CBC, LIPID, CMP, ADIFF, TSH, MG, PBNP #### [address] [address] Hematocrit (Bld) [Volume fraction] 39.4 % Normal 37.0-47.0 [facility] ([place] Comment on above: Performed By: #### A TRACEY, GFR, CBC, LIPID, CMP, ADIFF, TSH, MG, PBNP #### [address] [address] Hgb 13.4 G/dL Normal 12.0-16.0 [facility] ([place] Comment on above: Performed By: #### A TRACEY, GFR, CBC, LIPID, CMP, ADIFF, TSH, MG, PBNP #### [address] [address] MCH (RBC) [Entitic mass] 29.2 pg Normal 27.0-31.2 [facility] ([place] Comment on above: Performed By: #### A TRACEY, GFR, CBC, LIPID, CMP, ADIFF, TSH, MG, PBNP #### [address] [address] MCHC 34.1 G/dL Normal 33.0-37.0 [facility] ([place] Comment on above: Performed By: #### A TRACEY, GFR, CBC, LIPID, CMP, ADIFF, TSH, MG, PBNP #### [address] [address] MCV (RBC) [Entitic vol] 85.5 fL Normal 80.0-94.0 [facility] [place] Comment on above: Performed By: #### A TRACEY, GFR, CBC, LIPID, CMP, ADIFF, TSH, MG, PBNP #### [address] [address] Platelet 246 10 3/mcL Normal 130-400 [facility] ([place]) Comment on above: Performed By: #### A TRACEY, GFR, CBC, LIPID, CMP, ADIFF, TSH, MG, PBNP #### [address] [address] Platelet mean volume (Bld) [Entitic vol] 7.5 fL Normal 7.4-10.4 [facility] ([place] Comment on above: Performed By: #### A TRACEY, GFR, CBC, LIPID, CMP, ADIFF, TSH, MG, PBNP #### [address] [address] RBC 4.61 10 6/mcL Normal 4.20-5.40 [facility] ([place] Comment on above: Performed By: #### A TRACEY, GFR, CBC, LIPID, CMP, ADIFF, TSH, MG, PBNP #### [address] [address] WBC 7.6 10 3/mcL Normal 4.6-10.8 [facility] ([place] Comment on above: Performed By: #### A TRACEY, GFR, CBC, LIPID, CMP, ADIFF, TSH, MG, PBNP #### [address] [address] CMPon 03-19-2023 Albumin Level 3.8 G/dL Normal 3.5-5.0 [facility] ([place] Comment on above: Performed By: #### A TRACEY, GFR, CBC, LIPID, CMP, ADIFF, TSH, MG, PBNP #### [address] [address] Albumin/Globulin [Mass ratio] 1.2 {ratio} Normal 1.1-2.5 [facility] ([place] Comment on above: Performed By: #### A TRACEY, GFR, CBC, LIPID, CMP, ADIFF, TSH, MG, PBNP #### [address] [address] ALP [Catalytic activity/Vol] 76 U/L Normal 40-135 [facility] ([place] Comment on above: Performed By: #### A TRACEY, GFR, CBC, LIPID, CMP, ADIFF, TSH, MG, PBNP #### [address] [address] ALT [Catalytic activity/Vol] 20 U/L Normal 14-59 [facility] ([place] Comment on above: Performed By: #### A TRACEY, GFR, CBC, LIPID, CMP, ADIFF, TSH, MG, PBNP #### [address] [address] AST [Catalytic activity/Vol] 15 U/L Normal 10-40 [facility] ([place] Comment on above: Performed By: #### A TRACEY, GFR, CBC, LIPID, CMP, ADIFF, TSH, MG, PBNP #### [address] [address] Bili Total 0.4 mg/dL Normal 0.2-1.0 [facility] ([place]) Comment on above: Result Comment: Use of this assay is not recommended for patients undergoing treatment with eltrombopag due to the potential for falsely elevated results. Performed By: #### A TRACEY, GFR, CBC, LIPID, CMP, ADIFF, TSH, MG, PBNP #### [address] [address] BUN/Creatinine Ratio 21 ratio Normal 7-27 On license of [facility] ([place]) Comment on above: Performed By: #### A TRACEY, GFR, CBC, LIPID, CMP, ADIFF, TSH, MG, PBNP #### [address] [address] Calcium [Mass/Vol] 9.0 mg/dL Normal 8.4-10.2 [facility] ([place]) Comment on above: Performed By: #### A TRACEY, GFR, CBC, LIPID, CMP, ADIFF, TSH, MG, PBNP #### [address] [address] Chloride [Moles/Vol] 106 mmol/L Normal 98-107 On license of [facility] ([place]) Comment on above: Performed By: #### A TRACEY, GFR, CBC, LIPID, CMP, ADIFF, TSH, MG, PBNP #### [address] [address] CO2 [Moles/Vol] 28 mmol/L Normal 22-29 [facility] ([place] Comment on above: Performed By: #### A TRACEY, GFR, CBC, LIPID, CMP, ADIFF, TSH, MG, PBNP #### [address] [address] Creatinine [Mass/Vol] 0.75 mg/dL Normal 0.55-1.02 [facility] ([place]) Comment on above: Performed By: #### A TRACEY, GFR, CBC, LIPID, CMP, ADIFF, TSH, MG, PBNP #### [address] [address] Electrolyte Balance 9.0 mEq/L Normal 4.0-15.0 [facility] ([place]) Comment on above: Performed By: #### A TRACEY, GFR, CBC, LIPID, CMP, ADIFF, TSH, MG, PBNP #### [address] [address] Globulin 3.2 G/dL Normal [facility] ([place]) Comment on above: Performed By: #### A TRACEY, GFR, CBC, LIPID, CMP, ADIFF, TSH, MG, PBNP #### [address] [address] Glucose [Mass/Vol] 85 mg/dL Normal 70-105 [facility] ([place] Comment on above: Performed By: #### A TRACEY, GFR, CBC, LIPID, CMP, ADIFF, TSH, MG, PBNP #### [address] [address] Potassium [Moles/Vol] 4.1 mmol/L Normal 3.5-5.1 [facility]) Comment on above: Performed By: #### A TRACEY, GFR, CBC, LIPID, CMP, ADIFF, TSH, MG, PBNP #### [address] [address] Sodium [Moles/Vol] 143 mmol/L Normal 136-145 [facility] ([place] Comment on above: Performed By: #### A TRACEY, GFR, CBC, LIPID, CMP, ADIFF, TSH, MG, PBNP #### [address] [address] Total Protein 7.0 G/dL Normal 6.4-8.2 [facility] ([place] Comment on above: Performed By: #### A TRACEY, GFR, CBC, LIPID, CMP, ADIFF, TSH, MG, PBNP #### [address] [address] Urea nitrogen [Mass/Vol] 16 mg/dL Normal 7-18 [facility] ([place] Comment on above: Performed By: #### A TRACEY, GFR, CBC, LIPID, CMP, ADIFF, TSH, MG, PBNP #### [address] [address] LABORATORYOrdered By: SYSTEM SYSTEM on 03-19-2023 Albumin [...] 03-19-2023 Cholesterol [Mass/Vol] 199 mg/dL Normal 0-200 [facility] ([place] Comment on above: Result Comment: Chol esterol Reference Interval: Less than 200 Desirable 200-239 Borderline high risk 240 and above High risk Performed By: #### A TRACEY, GFR, CBC, LIPID, CMP, ADIFF, TSH, MG, PBNP #### [address] [address] Cholesterol in HDL [Mass/Vol] 50 mg/dL Normal 40-60 [facility] ([place] Comment on above: Performed By: #### A TRACEY, GFR, CBC, LIPID, CMP, ADIFF, TSH, MG, PBNP #### [address] [address] Cholesterol in LDL [Mass/Vol] 126 mg/dL Normal 0-130 [facility] ([place] Comment on above: Performed By: #### A TRACEY, GFR, CBC, LIPID, CMP, ADIFF, TSH, MG, PBNP #### [address] [address] Triglyceride [Mass/Vol] 115 mg/dL Normal 0-150 [facility] ([place]) Comment on above: Result Comment: Trig lyceride Reference Interval: Less than 150 Normal 150-199 Borderline high risk 200-499 High risk 500 or higher Very high risk Performed By: #### A TRACEY, GFR, CBC, LIPID, CMP, ADIFF, TSH, MG, PBNP #### [address] [address] MGon 03-19-2023 Magnesium [Mass/Vol] 2.1 mg/dL Normal 1.8-2.4 On license of [facility] ([place]) Comment on above: Performed By: #### A TRACEY, GFR, CBC, LIPID, CMP, ADIFF, TSH, MG, PBNP #### [address] [address] PBNPon 03-19-2023 Natriuretic peptide B (Bld) [Mass/Vol] 69 pg/mL Normal 0-125 [facility] ([place] Comment on above: Result Comment: NT-p roBNP results of less than 300 pg/mL effectively rules out acute congestive heart failure with 99% negative predictive value. Performed By: #### A TRACEY, GFR, CBC, LIPID, CMP, ADIFF, TSH, MG, PBNP #### [address] [address] TSHon 03-19-2023 TSH Qn 5.16 m[IU]/L High 0.36-3.74 [facility] ([place]) Comment on above: Performed By: #### A TRCAEY, GFR, CBC, LIPID, CMP, ADIFF, TSH, MG, PBNP #### [address] [address] XR TIBIA FIBULA 2V AP/LAT RI GHTon 02-17-2023 [facility] XR ANKLE GENERAL 3V AP/LAT/O BL RIGHTon 02-11-2023 [facility] LAMOTRIGINEon 01-03-2023 lamoTRIgine [Mass/Vol] 0.9 ug/mL Low 1.0 - 13.0 ug/mL [facility] ZONISAMIDEon 01-03-2023 Zonisamide [Mass/Vol] Low 10.0 - 40.0 ug/mL [facility] VITAMIN D 25 HYDROXYon 01-01 25-hydroxyvitamin D3 [Mass/Vol] 12.2 ng/mL Low 31.0 - 80.0 ng/mL [facility] XR HAND GENERAL 3V PA/LAT/OB L RIGHTon 05-06-2022 [facility] XR Hand - right PA and Later al and Obliqueon 05-06-2022 IMPRESSION: 1. 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 2. 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 Potato Chip Sorter: PSCB Transcribe Date/Time: May 06 2022 10:57A Dictated by : KAYLAN GILMAN MD This examination was interpreted and the report reviewed and electronically signed by: KAYLAN GILMAN MD on May 06 2022 11:01AM [facility] DIVISION OF RADIOLOGY * * *Final Report* [...] osseous abnormality identified. DIVISION OF RADIOLOGY [facility] * * *Final Report* * [...] suggestive of enchondroma in the first metacarpal. Potato Chip Sorter: FLORENCE Transcribe Date/Time: May 06 2022 10:57A Dictated by : KAYLAN GILMAN MD This examination was interpreted and the report reviewed and electronically signed by: KAYLAN GILMAN MD on May 06 2022 11:01AM EST [facility] Radiology Study observation (narrative) [facility] XR Hand - right PA and Later al and ObliqueOrdered By: Ccf Provider on 05-06-2022 [facility] Basophil percentageon 2021 Bilirubin [Mass/Vol] 0.50 mg/dL 0.20-1.00 [facility] Work Phone: Comment on above: For patients on eltr ombopag therapy, use of Dimension [place] TBIL is not recommended. Chloride [Moles/Vol] 109 mmol/L 98-107 [facility] Work Phone: Glucose [Mass/Vol] 118 mg/dL 74-106 [facility] Work Phone: Comment on above: Fasting Glucose resu lt from 100 to 125 mg/dL suggests IMPAIRED HOMEOSTASIS per A.D.A. criteria. Potassium [Moles/Vol] 3.8 mmol/L 3.5-5.1 [facility] Work Phone: Protein [Mass/Vol] 7.2 g/dL 6.4-8.2 [facility] Work Phone: [phone] Sodium [Moles/Vol] 138 mmol/L 136-145 [facility] Work Phone: [phone] WBC (Bld) [#/Vol] 7.3 10*3/uL 4.4-11.0 [facility] Work Phone: [phone] Blood erythrocytes count (nu mber/volume)on 03-27-2022 RBC (Bld) [#/Vol] 4.64 10*6/uL 4.2-5.4 [facility] Work Phone: [phone] Blood hemoglobin measurement (mass/volume)on 03-27-2022 Hemoglobin (Bld) [Mass/Vol] 13.6 g/dL 12.0-15.0 [facility] Work Phone: [phone] Blood platelet mean volumeon 03-27-2022 Platelet mean volume (Bld) [Entitic vol] 8.9 fL 6.2-12.0 [facility] Work Phone: [phone] Determination of erythrocyte mean corpuscular volume (MCV)on 03-27-2022 MCV (RBC) [Entitic vol] 87.1 fL 81-99 [facility] Work Phone: [phone] Hematocrit Auto (Bld) [Volum e fraction]on 03-27-2022 Hematocrit (Bld) [Volume fraction] 40.4 % 37-47 [facility] Work Phone: [phone] Laboratory - Chemistry and C hemistry - challengeon 03-27-2022 ALP [Catalytic activity/Vol] 75 U/L 45-117 [facility] Work Phone: [phone] ALT [Catalytic activity/Vol] 16 U/L 13-56 [facility] Work Phone: [phone] CO2 [Moles/Vol] 23.0 mmol/L 21.0-32.0 [facility] Work Phone: [phone] Globulin (S) [Mass/Vol] 3.8 g/dL 2.2-4.2 [facility] Work Phone: [phone] Urea nitrogen/Creatinine [Mass ratio] 15.0 mg/mg 10-20 [facility] Work Phone: [phone] Laboratory - Hematology and Cell countson 03-27-2022 Erythrocyte distribution width (RBC) [Entitic vol] 39.6 fL 35.1-43.9 [facility] Work Phone: [phone] Erythrocyte distribution width (RBC) [Ratio] 12.5 % 11.6-14.6 [facility] Work Phone: [phone] MCH (RBC) [Entitic mass] 29.3 pg 27.0-32.0 [facility] Work Phone: [phone] MCHC Auto (RBC) [Mass/Vol]on 03-27-2022 MCHC (RBC) [Mass/Vol] 33.7 g/dL 32-36 [facility] Work Phone: No Panel Informationon 03-27 Estimated Creatinine Clearance Calc 65.60 ml/min [facility] Work Phone: [phone] Estimated GFR (MDRD) Amer 98 mL/min >60 [facility] Work Phone: Comment on above: GFR Calc Estimated GFR (MDRD) Non-Af Amer 81 mL/min >60 [facility] Work Phone: Comment on above: Non- GFR Calc Platelets bldon 03-27-2022 Platelets (Bld) [#/Vol] 245 10*3/uL 150-450 [facility] Work Phone: [phone] Serum or plasma albumin dennis urement (mass/volume)on 03-27-2022 Albumin [Mass/Vol] 3.4 g/dL 3.2-5.0 [facility] Work Phone: [phone] Serum or plasma albumin/glob ulin mass ratioon 03-27-2022 Albumin/Globulin [Mass ratio] 0.9 {ratio} 0.9-2.4 [facility] Work Phone: [phone] Serum or plasma calcium dennis urement (mass/volume)on 03-27-2022 Calcium [Mass/Vol] 9.1 mg/dL 8.5-10.1 [facility] Work Phone: [phone] Serum or plasma creatinine m easurement (mass/volume)on 03-27-2022 Creatinine [Mass/Vol] 0.80 mg/dL 0.55-1.02 [facility] Work Phone: Comment on above: The validity of the calculated GFR & GFRAA in patients over 70 years has not been determined. Clinical correlation is essential. Serum or plasma urea nitroge n measurement (mass/volume)on 03-27-2022 Urea nitrogen [Mass/Vol] 12 mg/dL -18 [facility] Work Phone: [phone] Thin prep Papanicolaou smear with manual screeningon 03-27-2022 Thin prep Papanicolaou smear with manual screening 13 U/L 15-37 [facility] Work Phone: Thin prep Papanicolaou smear with manual screening 6 5-15 [facility] Work Phone: No Panel Informationon 02-27 [facility] Clinical Summary: HMSPatient IDon 03-08-2019 SOP [facility] Work Phone: Office Visit: New - 1st visi t with practice, Rm: 3on 03-08-2019 NEGATED: Highlighted rowTobacco smoking status NHIS Tobacco smoking status TXIS [facility] Work Phone: Office Visit: C: R thumb l aceration healed but increased painon 06-11-2017 Documentation of current medications (procedure) Done Invalid Interpretation Code [facility] Work Phone: Fall risk assessment No Invalid Interpretation Code [facility] Work Phone: Tobacco smoking status NHIS Never Invalid Interpretation Code [facility] Work Phone: Tobacco use [facility] Never smoker Invalid Interpretation Code [facility] Work Phone: Vital Signs Date Time Vital Sign Value Performing Clinician Facility 04-11-2025 10:44-0400 Body height 154.9 cm Lavonne Rai MD Work Phone: [facility] 04-11-2025 10:44-0400 Body mass index (BMI) [Ratio] 25.51 kg/m2 Lavonne Rai MD Work Phone: [facility] 04-11-2025 10:44-0400 Body weight 61.24 kg Lavonne Rai MD Work Phone: [facility] 04-11-2025 10:44-0400 Diastolic blood pressure 70 mm[Hg] Lavonne Rai MD Work Phone: [facility] 04-11-2025 10:44-0400 Systolic blood pressure 113 mm[Hg] Lavonne Rai MD Work Phone: [facility] 03-30-2025 13:00-0400 Body height 154.9 cm Iveth Queden [employer] PLANNING DIRECTOR Work Phone: [facility] 03-30-2025 13:00-0400 Body mass index (BMI) [Ratio] 33.07 kg/m2 Iveth Queden [employer].COMM[employer]ITY HEALTH PLANNING DIRECTOR Work Phone: [facility] 03-30-2025 13:00-0400 Body temperature 98.6 [degF] Iveth Queden [employer] MAN.COMM[employer]ITY HEALTH PLANNING DIRECTOR Work Phone: [facility] 03-30-2025 13:00-0400 Body weight 79.38 kg Iveth Queden [employer] MAN.COMM[employer]ITY HEALTH PLANNING DIRECTOR Work Phone: [facility] 03-30-2025 13:00-0400 Diastolic blood pressure 60 mm[Hg] Iveth Queden [employer] MAN.COMMUNITY HEALTH PLANNING DIRECTOR Work Phone: [facility] 03-30-2025 13:00-0400 Heart rate 76 /min Iveth Queden [employer].COMM[employer] HEALTH PLANNING DIRECTOR Work Phone: [facility] 03-30-2025 13:00-0400 Respiratory rate 16 /min Iveth Queden [employer].COMM[employer]ITY HEALTH PLANNING DIRECTOR Work Phone: [facility] 03-30-2025 13:00-0400 SaO2% (BldA) [Mass fraction] 98 % Iveth Queden [employer] MAN.COMMUNITY HEALTH PLANNING DIRECTOR Work Phone: [facility] 03-30-2025 13:00-0400 Systolic blood pressure 112 mm[Hg] Iveth Queden [employer]ING [employer] MAN.COMMUNITY HEALTH PLANNING DIRECTOR Work Phone: [facility] 03-21-2025 08:48-0400 Body height 154.9 cm Duong Sjessa [employer].COMM[employer]ITY HEALTH PLANNING DIRECTOR Work Phone: [facility] 03-21-2025 08:48-0400 Body mass index (BMI) [Ratio] 25.51 kg/m2 Duong Kalessa [employer].COMM[employer]ITY HEALTH PLANNING DIRECTOR Work Phone: [facility] 03-21-2025 08:48-0400 Body weight 61.24 kg Duong Damon [employer] MAN.COMMUNITY HEALTH PLANNING DIRECTOR Work Phone: [facility] 03-21-2025 08:48-0400 Diastolic blood pressure 74 mm[Hg] Duong Damon [employer]ING [employer] MAN.COMMUNITY HEALTH PLANNING DIRECTOR Work Phone: [facility] 03-21-2025 08:48-0400 Heart rate 67 /min Duong Damon [employer] MAN.COMMUNITY HEALTH PLANNING DIRECTOR Work Phone: [facility] 03-21-2025 08:48-0400 Systolic blood pressure 116 mm[Hg] Duong Damon [employer]ING [employer] MAN.COMMUNITY HEALTH PLANNING DIRECTOR Work Phone: [facility] 03-06-2025 18:55-0400 Body temperature 98 [degF] Jimenez Cabrera [employer] CH[employer] SUPERVISOR-C Work Phone: [facility] 03-06-2025 18:55-0400 Diastolic blood pressure 72 mm[Hg] Jimenez Cabrera [employer] CH[employer]ER[employer] SUPERVISOR-C Work Phone: [facility] 03-06-2025 18:55-0400 Heart rate 78 /min Jimenez Cabrera [employer] CH[employer]ER[employer] SUPERVISOR-C Work Phone: [facility] 03-06-2025 18:55-0400 Respiratory rate 18 /min Jimenez Cabrera [employer] CH[employer]ER[employer] SUPERVISOR-C Work Phone: [facility] 03-06-2025 18:55-0400 SaO2% (BldA) [Mass fraction] 98 % Jimenez Cabrera [employer]ER[employer] SUPERVISOR-C Work Phone: [facility] 03-06-2025 18:55-0400 Systolic blood pressure 156 mm[Hg] Jimenez Cabrera [employer] CH[employer]ERKS SUPERVISOR-C Work Phone: [facility] 03-06-2025 10:39-0400 Body height 154.94 cm Jimenez Cabrera [employer] CH[employer]ER[employer] SUPERVISOR-C Work Phone: [facility] 03-06-2025 10:39-0400 Body mass index (BMI) [Ratio] 26.8 kg/m2 Jimenez Cabrera [employer]ER[employer] SUPERVISOR-C Work Phone: [facility] 03-06-2025 10:39-0400 Body weight 64.41 kg Jimenez Francispkins [employer]IC[employer] CH[employer]ERKS SUPERVISOR-C Work Phone: [facility] 03-06-2025 10:25-0400 Body mass index (BMI) [Ratio] 36.66 kg/m2 José Luis Swank [employer]ING [employer] MAN.COMMUN[employer] HEALTH PLANNING DIRECTOR Work Phone: [facility] 03-06-2025 10:25-0400 Body temperature 97.11 [degF] José Luis Swank [employer]ING [employer] MAN.COMMUNITY HEALTH PLANNING DIRECTOR Work Phone: [facility] 03-06-2025 10:25-0400 Body weight 88 kg José Luis Swank [employer]ING [employer] MAN.COMMUNITY HEALTH PLANNING DIRECTOR Work Phone: [facility] 03-06-2025 10:25-0400 Diastolic blood pressure 80 mm[Hg] José Luis Swank [employer]ING [employer] MAN.COMMUNITY HEALTH PLANNING DIRECTOR Work Phone: [facility] 03-06-2025 10:25-0400 Heart rate 94 /min José Luis Swank [employer]ING [employer] MAN.COMMUNITY HEALTH PLANNING DIRECTOR Work Phone: [facility] 03-06-2025 10:25-0400 Respiratory rate 16 /min José Luis Swank [employer]ING [employer] MAN.COMMUNITY HEALTH PLANNING DIRECTOR Work Phone: [facility] 03-06-2025 10:25-0400 SaO2% (BldA) [Mass fraction] 98 % José Luis Swank [employer]ING [employer] MAN.COMMUNITY HEALTH PLANNING DIRECTOR Work Phone: [facility] 03-06-2025 10:25-0400 Systolic blood pressure 132 mm[Hg] José Luis Swank [employer]ING [employer] MAN.COMMUNITY HEALTH PLANNING DIRECTOR Work Phone: [facility] 02-13-2025 11:12-0400 Body mass index (BMI) [Ratio] 35.71 kg/m2 Darian Ames MD Work Phone: [facility] 02-13-2025 11:12-0400 Body weight 85.73 kg Darian Ames MD Work Phone: [facility] 02-13-2025 11:12-0400 Diastolic blood pressure 84 mm[Hg] Darian Ames MD Work Phone: [facility] 02-13-2025 11:12-0400 Systolic blood pressure 126 mm[Hg] Darian Ames MD Work Phone: [facility] 01-20-2025 09:05-0400 Diastolic blood pressure 82 mm[Hg] Candis Gamez MD Work Phone: [facility] 01-20-2025 09:05-0400 Heart rate 69 /min Candis Gamez MD Work Phone: [facility] 01-20-2025 09:05-0400 Respiratory rate 15 /min Candis Gamez MD Work Phone: [facility] 01-20-2025 09:05-0400 SaO2% (BldA) [Mass fraction] 99 % Candis Gamez MD Work Phone: [facility] 01-20-2025 09:05-0400 Systolic blood pressure 117 mm[Hg] Candis Gamez MD Work Phone: [facility] 01-20-2025 08:42-0400 Body temperature 97.5 [degF] Candis Gamez MD Work Phone: [facility] 01-20-2025 07:53-0400 Body height 154.9 cm Candis Gamez MD Work Phone: [facility] 01-20-2025 07:53-0400 Body mass index (BMI) [Ratio] 36.47 kg/m2 Candis Gamez MD Work Phone: [facility] 01-20-2025 07:53-0400 Body weight 87.54 kg Candis Gamez MD Work Phone: [facility] 01-10-2025 09:33-0400 Body height 154.9 cm Bethel Albert PA-C Work Phone: [facility] 01-10-2025 09:33-0400 Body mass index (BMI) [Ratio] 36.49 kg/m2 Bethel Albert PA-C Work Phone: [facility] 01-10-2025 09:33-0400 Body weight 87.6 kg Bethel Albert PA-C Work Phone: [facility] 01-10-2025 09:33-0400 Diastolic blood pressure 76 mm[Hg] Bethel Albert PA-C Work Phone: [facility] 01-10-2025 09:33-0400 Heart rate 80 /min Bethel Albert PA-C Work Phone: [facility] 01-10-2025 09:33-0400 SaO2% (BldA) [Mass fraction] 98 % Bethel Albert PA-C Work Phone: [facility] 01-10-2025 09:33-0400 Systolic blood pressure 113 mm[Hg] Bethel Albert PA-C Work Phone: [facility] 01-09-2025 16:01-0400 Body height 154.9 cm Ani Rajput [employer] MAN.[employer] HE[employer] PLANNING DIRECTOR Work Phone: [facility] 01-09-2025 16:01-0400 Body mass index (BMI) [Ratio] 25.51 kg/m2 Ani Rajput [employer] MAN.COMMUNITY HEALTH PLANNING DIRECTOR Work Phone: [facility] 01-09-2025 16:01-0400 Body weight 61.24 kg Ani Rajput [employer]ING [employer] MAN.COMMUNITY HEALTH PLANNING DIRECTOR Work Phone: [facility] 12-15-2024 10:20-0400 Heart rate 85 /min Frida Prebish [employer]ING [employer] MAN.COMMUNITY HEALTH PLANNING DIRECTOR Work Phone: [facility] 12-15-2024 10:20-0400 Respiratory rate 16 /min Frida Prebish [employer]ING [employer] MAN.COMMUNITY HEALTH PLANNING DIRECTOR Work Phone: [facility] 12-15-2024 10:20-0400 SaO2% (BldA) [Mass fraction] 98 % Frida Prebish [employer] MAN.COMMUNITY HEALTH PLANNING DIRECTOR Work Phone: [facility] 12-07-2024 09:34-0400 Body mass index (BMI) [Ratio] 25.51 kg/m2 Zhanna Pablo [employer] MAN.COMMUNITY HEALTH PLANNING DIRECTOR Work Phone: [facility] 12-07-2024 09:34-0400 Body weight 61.24 kg Zhanna Pablo [employer]ING [employer] MAN.COMMUNITY HEALTH PLANNING DIRECTOR Work Phone: [facility] 12-07-2024 09:34-0400 Diastolic blood pressure 83 mm[Hg] Zhanna Pablo [employer]ING [employer] MAN.COMMUNITY HEALTH PLANNING DIRECTOR Work Phone: [facility] 12-07-2024 09:34-0400 Heart rate 89 /min Zhanna Pablo [employer]ING [employer] MAN.COMMUNITY HEALTH PLANNING DIRECTOR Work Phone: [facility] 12-07-2024 09:34-0400 Respiratory rate 14 /min Zhanna Pablo [employer]ING [employer] MAN.COMMUNITY HEALTH PLANNING DIRECTOR Work Phone: [facility] 12-07-2024 09:34-0400 SaO2% (BldA) [Mass fraction] 96 % Zhanna Pablo [employer]ING [employer] MAN.COMMUNITY HEALTH PLANNING DIRECTOR Work Phone: [facility] 12-07-2024 09:34-0400 Systolic blood pressure 124 mm[Hg] Zhanna Pablo [employer]ING [employer] MAN.COMMUNITY HEALTH PLANNING DIRECTOR Work Phone: [facility] 12-06-2024 13:51-0400 Body temperature 98.2 [degF] Iveth Queden [employer]ING [employer] MAN.COMMUNITY HEALTH PLANNING DIRECTOR Work Phone: [facility] 12-06-2024 13:51-0400 Diastolic blood pressure 74 mm[Hg] Iveth Queden [employer]ING [employer] MAN.COMMUNITY HEALTH PLANNING DIRECTOR Work Phone: [facility] 12-06-2024 13:51-0400 Heart rate 76 /min Iveth Queden [employer]ING [employer] MAN.COMMUNITY HEALTH PLANNING DIRECTOR Work Phone: [facility] 12-06-2024 13:51-0400 Respiratory rate 18 /min Iveth Queden [employer]ING [employer] MAN.COMMUNITY HEALTH PLANNING DIRECTOR Work Phone: [facility] 12-06-2024 13:51-0400 SaO2% (BldA) [Mass fraction] 98 % Iveth Queden [employer]ING [employer] MAN.COMMUNITY HEALTH PLANNING DIRECTOR Work Phone: [facility] 12-06-2024 13:51-0400 Systolic blood pressure 120 mm[Hg] Iveth Hernandez [employer]ING [employer] MAN.COMMUNITY HEALTH PLANNING DIRECTOR Work Phone: [facility] 10-26-2024 11:14-0400 Heart rate 86 /min Animelina Rajput [employer]ING [employer] MAN.COMMUNITY HEALTH PLANNING DIRECTOR Work Phone: [facility] 10-26-2024 11:14-0400 Respiratory rate 16 /min Ani Phamic [employer] MAN.COMMUNITY HEALTH PLANNING DIRECTOR Work Phone: [facility] 10-26-2024 11:14-0400 SaO2% (BldA) [Mass fraction] 99 % Ani Phamic [employer] MAN.COMMUNITY HEALTH PLANNING DIRECTOR Work Phone: [facility] 10-04-2024 11:24-0500 Diastolic blood pressure 73 mm[Hg] Irene Randolph DO Work Phone: [facility] 10-04-2024 11:24-0500 Respiratory rate 16 /min Irene Randolph DO Work Phone: [facility] 10-04-2024 11:24-0500 SaO2% (BldA) [Mass fraction] 99 % Irene Randolph DO Work Phone: [facility] 10-04-2024 11:24-0500 Systolic blood pressure 126 mm[Hg] Irene Randolph DO Work Phone: [facility] 10-04-2024 11:00-0500 Heart rate 70 /min Irene Randolph DO Work Phone: [facility] 10-04-2024 10:28-0500 Body temperature 96.8 [degF] Irene Randolph DO Work Phone: [facility] 10-04-2024 07:55-0500 Body height 154.9 cm Irene Randolph DO Work Phone: [facility] 10-04-2024 07:55-0500 Body mass index (BMI) [Ratio] 25.51 kg/m2 Irene Randolph DO Work Phone: [facility] 10-04-2024 07:55-0500 Body weight 61.24 kg Irene Randolph DO Work Phone: [facility] 09-27-2024 08:00-0500 Body height 154.9 cm [facility] 09-27-2024 08:00-0500 Body mass index (BMI) [Ratio] 25.51 kg/m2 [facility] 09-27-2024 08:00-0500 Body weight 61.24 kg [facility] 09-27-2024 08:00-0500 Respiratory rate 18 /min [facility] 09-22-2024 10:07-0500 Heart rate 91 /min Frida Prebish [employer]ING [employer] MAN.COMMUNITY HEALTH PLANNING DIRECTOR Work Phone: [facility] 09-22-2024 10:07-0500 Respiratory rate 18 /min Frida Prebish [employer]ING [employer] MAN.COMMUNITY HEALTH PLANNING DIRECTOR Work Phone: [facility] 09-22-2024 10:07-0500 SaO2% (BldA) [Mass fraction] 95 % Frida Prebish [employer]ING [employer] MAN.COMMUNITY HEALTH PLANNING DIRECTOR Work Phone: [facility] 08-02-2024 10:05-0500 Body height 154.9 cm Debbie Pichardo MD Work Phone: [facility] 08-02-2024 10:05-0500 Body mass index (BMI) [Ratio] 25.51 kg/m2 Debbie Pichardo MD Work Phone: [facility] 08-02-2024 10:05-0500 Body weight 61.24 kg Debbie Pichardo MD Work Phone: [facility] Comment on above: self-reported 08-02-2024 10:05-0500 Diastolic blood pressure 72 mm[Hg] Debbie Pichardo MD Work Phone: [facility] 08-02-2024 10:05-0500 Heart rate 97 /min Debbie Pichardo MD Work Phone: [facility] 08-02-2024 10:05-0500 Respiratory rate 19 /min Debbie Pichardo MD Work Phone: [facility] 08-02-2024 10:05-0500 SaO2% (BldA) [Mass fraction] 97 % Debbie Pihcardo MD Work Phone: [facility] 08-02-2024 10:05-0500 Systolic blood pressure 118 mm[Hg] Debbie Pichardo MD Work Phone: [facility] 06-29-2024 11:07-0500 Body height 154.9 cm [facility] 06-29-2024 11:07-0500 Body mass index (BMI) [Ratio] 34.96 kg/m2 [facility] 06-29-2024 11:07-0500 Body weight 83.92 kg [facility] 06-29-2024 11:07-0500 Respiratory rate 18 /min [facility] 04-04-2024 10:27-0400 Body height 154.9 cm [facility] 04-04-2024 10:27-0400 Body mass index (BMI) [Ratio] 26.45 kg/m2 [facility] 04-04-2024 10:27-0400 Body weight 63.5 kg [facility] Comment on above: patient reported, pr evious weight 190? 04-04-2024 10:27-0400 Respiratory rate 18 /min [facility] 02-27-2024 15:19-0400 Body mass index (BMI) [Ratio] 36.12 kg/m2 Quintin Mcguire MD Work Phone: [facility] 02-27-2024 15:19-0400 Body temperature 97.59 [degF] Quintin Mcguire MD Work Phone: [facility] 02-27-2024 15:19-0400 Body weight 86.7 kg Quintin Mcguire MD Work Phone: [facility] 02-27-2024 15:19-0400 Diastolic blood pressure 72 mm[Hg] Quintin Mcguire MD Work Phone: [facility] 02-27-2024 15:19-0400 Heart rate 88 /min Quintin Mcguire MD Work Phone: [facility] 02-27-2024 15:19-0400 Respiratory rate 16 /min Quintin Mcguire MD Work Phone: [facility] 02-27-2024 15:19-0400 SaO2% (BldA) [Mass fraction] 97 % Quintin Mcguire MD Work Phone: [facility] 02-27-2024 15:19-0400 Systolic blood pressure 122 mm[Hg] Quintin Mcguire MD Work Phone: [facility] 09-19-2023 22:50-0500 Body height 154.94 cm [employer] SUPERVISOR-C Jimenez Cabrera [employer]IC[employer] CHANGE [employer]ER[employer] SUPERVISOR Work Phone: [facility] 09-19-2023 22:50-0500 Body mass index (BMI) [Ratio] 32.8 kg/m2 [employer] SUPERVISOR-C Jimenez Cabrera [employer]IC[employer] CHANGE [employer]ERKS SUPERVISOR Work Phone: [facility] 09-19-2023 22:50-0500 Body temperature 98 [degF] [employer] SUPERVISOR-C Jimenez Cabrera [employer]IC[employer] CHANGE [employer]ERKS SUPERVISOR Work Phone: [facility] 09-19-2023 22:50-0500 Body weight 78.8 kg [employer] SUPERVISOR-C Jimenez Cabrera POLICY CHANGE CLERKS SUPERVISOR Work Phone: [facility] 09-19-2023 22:50-0500 Diastolic blood pressure 68 mm[Hg] [employer] SUPERVISOR-C Jimenez Cabrera [employer]IC[employer] CHANGE CLERKS SUPERVISOR Work Phone: [facility] 09-19-2023 22:50-0500 Heart rate 90 /min [employer] SUPERVISOR-C Jimenez Cabrera POLICY CHANGE CLERKS SUPERVISOR Work Phone: [facility] 09-19-2023 22:50-0500 Respiratory rate 20 /min [employer] SUPERVISOR-C Jimenez Cabrera POLIC[employer] CH[employer]ERKS SUPERVISOR Work Phone: [facility] 09-19-2023 22:50-0500 SaO2% (BldA) [Mass fraction] 98 % [employer] SUPERVISORVasquez Cabrera POLICY CHANGE CLERKS SUPERVISOR Work Phone: [facility] 09-19-2023 22:50-0500 Systolic blood pressure 115 mm[Hg] [employer] SUPERVISORVasquez Cabrera POLICY CHANGE CLERKS SUPERVISOR Work Phone: [facility] 08-24-2023 12:53-0500 Body height 154.94 cm [facility] 08-24-2023 12:53-0500 Body mass index (BMI) [Ratio] 32.3 kg/m2 [facility] 08-24-2023 12:53-0500 Body temperature 96.6 [degF] [facility] 08-24-2023 12:53-0500 Body weight 77.79 kg [facility] 08-24-2023 12:53-0500 Diastolic blood pressure 86 mm[Hg] [facility] 08-24-2023 12:53-0500 Heart rate 92 /min [facility] 08-24-2023 12:53-0500 Respiratory rate 18 /min [facility] 08-24-2023 12:53-0500 SaO2% (BldA) [Mass fraction] 97 % [facility] 08-24-2023 12:53-0500 Systolic blood pressure 105 mm[Hg] [facility] 04-28-2023 09:12-0400 Body temperature 97.59 [degF] Stan Rodgers [employer]ING [employer] MAN.COMMUNITY HE[employer] PLANNING DIRECTOR Work Phone: [facility] 04-28-2023 09:12-0400 Body weight 79.74 kg Stan Rodgers [employer]ING [employer] MAN.COMMUNITY HEALTH PLANNING DIRECTOR Work Phone: [facility] 04-28-2023 09:12-0400 Diastolic blood pressure 64 mm[Hg] Stan Pendkathy [employer]ING [employer] MAN.COMMUNITY HEALTH PLANNING DIRECTOR Work Phone: [facility] 04-28-2023 09:12-0400 Heart rate 91 /min Stan Vishal [employer]ING [employer] MAN.COMMUNITY HEALTH PLANNING DIRECTOR Work Phone: [facility] 04-28-2023 09:12-0400 Respiratory rate 18 /min Stan Pendlejo [employer]ING [employer] MAN.COMMUNITY HEALTH PLANNING DIRECTOR Work Phone: [facility] 04-28-2023 09:12-0400 SaO2% (BldA) [Mass fraction] 98 % Stan Vishal [employer]ING [employer] MAN.COMMUNITY HEALTH PLANNING DIRECTOR Work Phone: [facility] 04-28-2023 09:12-0400 Systolic blood pressure 108 mm[Hg] Stan Vishal [employer]ING [employer] MAN.COMMUNITY HEALTH PLANNING DIRECTOR Work Phone: [facility] 01-12-2023 10:42-0400 Body height 154.94 cm [facility] 01-12-2023 10:42-0400 Body mass index (BMI) [Ratio] 26.4 kg/m2 [facility] 01-12-2023 10:42-0400 Body temperature 97.4 [degF] [facility] 01-12-2023 10:42-0400 Body weight 63.5 kg [facility] 01-12-2023 10:42-0400 Diastolic blood pressure 96 mm[Hg] [facility] 01-12-2023 10:42-0400 Heart rate 78 /min [facility] 01-12-2023 10:42-0400 Respiratory rate 16 /min [facility] 01-12-2023 10:42-0400 SaO2% (BldA) [Mass fraction] 100 % [facility] 01-12-2023 10:42-0400 Systolic blood pressure 130 mm[Hg] [facility] 12-24-2022 11:22-0400 Body temperature 97.39 [degF] Misha Chambers APRN.COMMUNITY HEALTH PLANNING DIRECTOR Work Phone: [facility] 12-24-2022 11:22-0400 Body weight 81.65 kg Misha Chambers [employer]ING [employer] MAN.COMMUNITY HEALTH PLANNING DIRECTOR Work Phone: [facility] 12-24-2022 11:22-0400 Diastolic blood pressure 80 mm[Hg] Misha Chambers [employer]ING [employer] MAN.COMMUNITY HEALTH PLANNING DIRECTOR Work Phone: [facility] 12-24-2022 11:22-0400 Heart rate 75 /min Misha Chambers [employer]ING [employer] MAN.COMMUNITY HEALTH PLANNING DIRECTOR Work Phone: [facility] 12-24-2022 11:22-0400 Respiratory rate 21 /min Misha Reyes [employer]ING [employer] MAN.COMMUNITY HEALTH PLANNING DIRECTOR Work Phone: [facility] 12-24-2022 11:22-0400 SaO2% (BldA) [Mass fraction] 100 % Misha Reyes [employer]ING [employer] MAN.COMMUNITY HEALTH PLANNING DIRECTOR Work Phone: [facility] 12-24-2022 11:22-0400 Systolic blood pressure 102 mm[Hg] Misha Chambers [employer]ING [employer] MAN.COMMUNITY HEALTH PLANNING DIRECTOR Work Phone: [facility] 11-28-2022 08:43-0400 Body height 154.9 cm Uriel Greenwood MD Work Phone: [facility] 11-28-2022 08:43-0400 Body weight 63.5 kg Uriel Greenwood MD Work Phone: [facility] 11-28-2022 08:43-0400 Diastolic blood pressure 87 mm[Hg] Uriel Greenwood MD Work Phone: [facility] 11-28-2022 08:43-0400 Heart rate 68 /min Uriel Greenwood MD Work Phone: [facility] 11-28-2022 08:43-0400 SaO2% (BldA) [Mass fraction] 100 % Uriel Greenwood MD Work Phone: [facility] 11-28-2022 08:43-0400 Systolic blood pressure 120 mm[Hg] Uriel Greenwood MD Work Phone: [facility] 11-19-2022 15:30-0400 Body height 154.9 cm Yesica Bean MD Work Phone: [facility] 11-19-2022 15:30-0400 Body weight 80.74 kg Yesica Bean MD Work Phone: [facility] 11-19-2022 15:30-0400 Diastolic blood pressure 75 mm[Hg] Yesica Bean MD Work Phone: [facility] 11-19-2022 15:30-0400 Heart rate 79 /min Yesica Bean MD Work Phone: [facility] 11-19-2022 15:30-0400 Systolic blood pressure 109 mm[Hg] Yesica Bean MD Work Phone: [facility] 09-25-2022 09:57-0500 Body temperature 98.71 [degF] Precious Athy PA-C Work Phone: [facility] 09-25-2022 09:57-0500 Diastolic blood pressure 84 mm[Hg] Precious Athy PA-C Work Phone: [facility] 09-25-2022 09:57-0500 Heart rate 74 /min Precious Athy PA-C Work Phone: [facility] 09-25-2022 09:57-0500 Respiratory rate 18 /min Precious Athy PA-C Work Phone: [facility] 09-25-2022 09:57-0500 SaO2% (BldA) [Mass fraction] 99 % Precious Athy PA-C Work Phone: [facility] 09-25-2022 09:57-0500 Systolic blood pressure 136 mm[Hg] Precious Athy PA-C Work Phone: [facility] 05-06-2022 10:26-0400 Body temperature 97.59 [degF] Steph Shaw [employer]ING [employer] MAN.COMMUNITY HEALTH PLANNING DIRECTOR Work Phone: [facility] 05-06-2022 10:26-0400 Body weight 80.02 kg Steph Shaw [employer]ING [employer] MAN.COMMUNITY HEALTH PLANNING DIRECTOR Work Phone: [facility] 05-06-2022 10:26-0400 Diastolic blood pressure 76 mm[Hg] Steph Shaw [employer]ING [employer] MAN.COMMUNITY HEALTH PLANNING DIRECTOR Work Phone: [facility] 05-06-2022 10:26-0400 Heart rate 76 /min Steph Shaw [employer]ING [employer] MAN.COMMUNITY HEALTH PLANNING DIRECTOR Work Phone: [facility] 05-06-2022 10:26-0400 Respiratory rate 16 /min Steph Shaw [employer]ING [employer] MAN.COMMUNITY HEALTH PLANNING DIRECTOR Work Phone: [facility] 05-06-2022 10:26-0400 SaO2% (BldA) [Mass fraction] 98 % Steph Shaw [employer]ING [employer] MAN.COMMUNITY HEALTH PLANNING DIRECTOR Work Phone: [facility] 05-06-2022 10:26-0400 Systolic blood pressure 128 mm[Hg] Steph Shaw [employer]ING [employer] MAN.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 Work Phone: 03-27-2022 10:28-0400 Body height 154.94 cm [facility] Work Phone: 03-27-2022 10:28-0400 Body mass index (BMI) [Ratio] 25.9 kg/m2 [facility] Work Phone: 03-27-2022 10:28-0400 Body temperature 96.8 [degF] [facility] Work Phone: 03-27-2022 10:28-0400 Body weight 62.14 kg [facility] Work Phone: 03-27-2022 10:28-0400 Diastolic blood pressure 86 mm[Hg] [facility] Work Phone: 03-27-2022 10:28-0400 Heart rate 102 /min [facility] Work Phone: 03-27-2022 10:28-0400 SaO2% (BldA) [Mass fraction] 98 % [facility] Work Phone: 03-27-2022 10:28-0400 Systolic blood pressure 128 mm[Hg] [facility] Work Phone: 02-27-2022 08:51-0400 Heart rate 64 /min Jimena Ashley [employer]ING [employer] MAN.COMMUNITY HEALTH PLANNING DIRECTOR Work Phone: [facility] 02-27-2022 08:51-0400 Respiratory rate 16 /min Jimena Ashley [employer]ING [employer] MAN.COMMUNITY HEALTH PLANNING DIRECTOR Work Phone: [facility] 02-27-2022 08:51-0400 SaO2% (BldA) [Mass fraction] 99 % Jimena Ashley [employer]ING [employer] MAN.COMMUNITY HEALTH PLANNING DIRECTOR Work Phone: [facility] 01-07-2022 10:25-0400 Body temperature 97.39 [degF] Lori Praisler-Wood [employer]ING [employer] MAN.COMMUNITY HEALTH PLANNING DIRECTOR Work Phone: [facility] 01-07-2022 10:25-0400 Body weight 81.1 kg Lori Praisler-Wood [employer]ING [employer] MAN.COMMUNITY HEALTH PLANNING DIRECTOR Work Phone: [facility] 01-07-2022 10:25-0400 Diastolic blood pressure 72 mm[Hg] Lori Praisler-Wood [employer]ING [employer] MAN.COMMUNITY HEALTH PLANNING DIRECTOR Work Phone: [facility] 01-07-2022 10:25-0400 Heart rate 93 /min Lori Praisler-Wood [employer]ING [employer] MAN.COMMUNITY HEALTH PLANNING DIRECTOR Work Phone: [facility] 01-07-2022 10:25-0400 Respiratory rate 20 /min Lori Praisler-Wood [employer]ING [employer] MAN.COMMUNITY HEALTH PLANNING DIRECTOR Work Phone: [facility] 01-07-2022 10:25-0400 SaO2% (BldA) [Mass fraction] 96 % Lori Praisler-Wood BLASTING [employer] MAN.COMMUNITY HEALTH PLANNING DIRECTOR Work Phone: [facility] 01-07-2022 10:25-0400 Systolic blood pressure 114 mm[Hg] Lori Praisler-Wood [employer]ING [employer] MAN.COMMUNITY HEALTH PLANNING DIRECTOR Work Phone: [facility] 01-01-2022 13:00-0400 Body temperature 97.3 [degF] [facility] Work Phone: [facility] 01-01-2022 13:00-0400 Diastolic blood pressure 78 mm[Hg] [facility] Work Phone: [facility] 01-01-2022 13:00-0400 Heart rate 70 /min [facility] Work Phone: [facility] 01-01-2022 13:00-0400 Systolic blood pressure 109 mm[Hg] [facility] Work Phone: [facility] 12-15-2021 [id number] Body height 154.94 cm [facility] Work Phone: 12-15-2021 14:11-0400 Body mass index (BMI) [Ratio] 25.4 kg/m2 [facility] Work Phone: 12-15-2021 14:11-0400 Body temperature 98.2 [degF] [facility] Work Phone: 12-15-2021 14:11-0400 Body weight 61.23 kg [facility] Work Phone: 12-15-2021 14:11-0400 Diastolic blood pressure 80 mm[Hg] [facility] Work Phone: 12-15-2021 14:11-0400 Heart rate 115 /min [facility] Work Phone: 12-15-2021 14:11-0400 Respiratory rate 18 /min [facility] Work Phone: 12-15-2021 14:11-0400 SaO2% (BldA) [Mass fraction] 95 % [facility] Work Phone: 12-15-2021 14:11-0400 Systolic blood pressure 158 mm[Hg] [facility] Work Phone: 11-11-2021 14:38-0400 Body height 154.9 cm Ward Go Jr., MD Work Phone: [facility] 11-11-2021 14:38-0400 Body weight 81.19 kg Ward Go Jr., MD Work Phone: [facility] 11-11-2021 14:38-0400 Respiratory rate 16 /min Ward Go Jr., MD Work Phone: [facility] 06-11-2017 15:25-0400 BMI (Body Mass Index) 27.21 kg/m2 Lavonne MENDEZ [facility] Work Phone: 06-11-2017 15:25-0400 Body Temperature 97.4 [degF] Lavonne MENDEZ [facility] Work Phone: 06-11-2017 15:25-0400 BP Diastolic 74 mm[Hg] Lavonne MENDEZ [facility] Work Phone: 06-11-2017 15:25-0400 BP Systolic 106 mm[Hg] Lavonne MENDEZ [facility] Work Phone: 06-11-2017 15:25-0400 Height 154.94 cm Lavonne MENDEZ [facility] Work Phone: 06-11-2017 15:25-0400 Pulse (Heart Rate) 82 /min Lavonne MENDEZ [facility] Work Phone: 06-11-2017 15:25-0400 Respiratory Rate 14 /min Lavonne MENDEZ [facility] Work Phone: 06-11-2017 15:25-0400 Weight 65.32 kg Lavonne MENDEZ [facility] Work Phone: NEGATED: Highlighted [id number] 14:09-0400 BMI (Body Mass Index) 31.16 kg/m2 Lauren Sharma [facility] Work Phone: NEGATED: Highlighted [id number] 14:09-0400 Body weight 72.12 kg Lauren Sharma [employer]ING BOOKKEEPER [facility] Work Phone: NEGATED: Highlighted [id number] 14:09-0400 Body weight 72 kg Lauren Sharma TYPING BOOKKEEPER [facility] Work Phone: NEGATED: Highlighted [id number] 14:09-0400 BP Diastolic 74 mm[Hg] Lauren Sharma [facility] Work Phone: NEGATED: Highlighted [id number] 14:09-0400 BP Systolic 107 mm[Hg] Lauren Sharma LPN [facility] Work Phone: NEGATED: Highlighted [id number] 14: Height 152.4 cm Lauren Sharma TYPING BOOKKEEPER [facility] Work Phone: NEGATED: Highlighted [id number] 14: Height 152 cm Lauren Sharma TYPING BOOKKEEPER [facility] Work Phone: NEGATED: Highlighted [id number] 14: Pulse (Heart Rate) 70 /min Lauren Sharma LPN [facility] Work Phone: Encounters Encounter Date Encounter Type Care Provider Facility Start: 06-13-2025 End: 06-13-2025 ambulatory IVETH HERNANDEZ Facility:[facility] Start: 05-30-2025 End: 05-30-2025 ambulatory CHELSIE PERALTA Facility:[facility] Start: 05-19-2025 ambulatory [facility] Facility: [id number] Start: 05-16-2025 ambulatory UNKNOWN PROVIDER Facili ty:[facility] Start: 05-11-2025 End: 05-11-2025 ambulatory IVETH HERNANDEZ Facility:[facility] Start: 05-04-2025 End: 05-05-2025 ambulatory IVETH HERNANDEZ Facility:[facility] Start: 05-02-2025 End: 05-02-2025 ambulatory YESICA BEAN Facility:[facility] Start: 04-26-2025 End: 04-26-2025 Follow-up encounter Duong Damon APRN.COMMUNITY HEALTH PLANNING DIRECTOR Work Phone: [facility] Start: 04-25-2025 End: 04-25-2025 Telephone encounter Duong Zambranocuate COMMUNITY HEALTH PLANNING DIRECTOR Work Phone: [facility] [place] Comment on above: Results Start: 04-21-2025 End: 04-21-2025 ambulatory DUONG DAMON Facility:[facility] Start: 04-21-2025 End: 04-21-2025 Subsequent hospital visit by physician [facility] Work Phone: Nuclear Medicine Comment on above: Calculus of gallblad ian without cholecystitis without obstruction [K80.20] Start: 04-11-2025 End: 04-11-2025 Patient encounter procedure Lavonne Rai MD Work Phone: Urology Comment on above: Kidney stone (Primar y Dx) Start: 04-11-2025 End: 04-11-2025 Subsequent hospital visit by physician [facility] Comment on above: Right ureteral calcu courtney [N20.1] Start: 04-11-2025 End: 04-11-2025 Postop follow up visit related to original px Duong Sandhu [employer]ING [employer] MAN.COMMUNITY HEALTH PLANNING DIRECTOR Work Phone: Urology Comment on above: Ureteral calculi (Pr imary Dx) Start: 04-11-2025 End: 04-11-2025 ambulatory LAVONNE RAI Facility:[id number] Start: 04-06-2025 [facility] Start: 04-04-2025 ambulatory [facility] Start: 04-03-2025 ambulatory [facility] Start: 03-31-2025 End: 04-11-2025 Orders Only Duong Damon [employer] MAN.COMMUNITY HEALTH PLANNING DIRECTOR Work Phone: [facility] [place] Comment on above: Calculus of gallblad ian without cholecystitis without obstruction (Primary Dx); Nausea; Generalized abdominal pain Results Start: 03-30-2025 End: 03-30-2025 Patient encounter procedure Iveth Hernandez [employer] MAN.COMMUNITY HEALTH PLANNING DIRECTOR Work Phone: [facility] Comment on above: Hydronephrosis with urinary obstruction due to ureteral calculus (Primary Dx); Hypothyroidism, unspecified type; Primary hypertension; Vitamin D deficiency; Screening for diabetes mellitus; Hyperglycemia Start: 03-30-2025 End: 03-30-2025 ambulatory [facility]HU [facility] Start: 03-29-2025 End: 03-29-2025 ambulatory IVETH QUEDEN Facility:[facility] Start: 03-29-2025 ambulatory IVETH QUEDEN Facility :[facility] Start: 03-27-2025 Patient encounter status Us 2 [facility] Work Phone: Start: 03-27-2025 ambulatory IVETH QUEDEN Facility :[facility] Start: 03-27-2025 End: 03-27-2025 Subsequent hospital visit by physician [facility] Comment on above: Generalized abdomina l pain [R10.84] Start: 03-27-2025 ambulatory IVETH QUEDEN Facility :[facility] Start: 03-23-2025 ambulatory IVETH QUEDEN Facility :[facility] Start: 03-22-2025 End: 03-22-2025 Telephone encounter Duong Damon APRN.CNP [facility] Comment on above: Pharmacist question Start: 03-21-2025 End: 03-21-2025 Office outpatient new 45 minutes Duong Damon APRN.CNP Work [facility] Comment on above: Generalized abdomina l pain (Primary Dx); Dysphagia, unspecified type; Other dysphagia; Chronic superficial gastritis without bleeding; Chronic abdominal pain; Gastroesophageal reflux disease with esophagitis, unspecified whether hemorrhage; Irritable bowel syndrome with diarrhea; Hemorrhoids, internal; Rectal bleeding; Nausea Start: 03-21-2025 End: 03-21-2025 ambulatory IVETH QUEDEN Facility:[facility] Start: 03-20-2025 End: 03-20-2025 Office outpatient visit 25 minutes Darian Campbell MD Work Phone: Orthopaedics Comment on above: Chronic pain of left knee (Primary Dx); Arthrofibrosis of knee joint, left Start: 03-20-2025 End: 03-20-2025 ambulatory IVETH QUEDEN Facility:[facility] Start: 03-20-2025 ambulatory IVETH QUEDEN Facility :[facility] Start: 03-16-2025 ambulatory IVETH QUEDEN Facility :[facility] Start: 03-12-2025 End: 03-13-2025 Follow-up encounter Iveth Hernandez APRN.CNP Work Phone: [facility] Comment on above: Results Start: 03-10-2025 End: 03-14-2025 Telephone encounter Bria Stover MD Work Phone: Urology Comment on above: asking for pain meds Start: 03-10-2025 End: 03-10-2025 ambulatory IRENE DARLING AGUSTÍN Facility:[facility] Start: 03-08-2025 End: 03-09-2025 Telephone encounter Duong Edson MENDEZ.COMMUNITY HEALTH PLANNING DIRECTOR Work Phone: Urology Comment on above: Surgery Start: 03-08-2025 End: 03-08-2025 Subsequent hospital visit by physician Iop Team B [facility] Behavioral [facility] Start: 03-08-2025 ambulatory IVETH HERNANDEZ Facility :[facility] Start: 03-06-2025 End: 03-08-2025 Evaluation and management of inpatient SELF Facility:[id number] Start: 03-06-2025 End: 03-06-2025 E-mail encounter from caregiver Janett Dash [facility] Work Phone: [facility] Start: 03-06-2025 End: 03-06-2025 Patient encounter procedure José Luis Dexterlydia MENDEZ.COMMUNITY HEALTH PLANNING DIRECTOR Work Phone: [facility] Comment on above: Flank pain (Primary Dx); Rectal bleeding Start: 03-06-2025 End: 03-06-2025 Emergency department patient visit Jimenez JUAREZ Work Phone: -Emergency Department Work Phone: Start: 03-06-2025 End: 03-06-2025 ambulatory Janett Dash [facility] Work Phone: [facility] Comment on above: IOP packet Start: 03-06-2025 End: 03-06-2025 Subsequent hospital visit by physician Iop Team B [facility] Medicine Start: 03-04-2025 End: 03-04-2025 ambulatory Carolee Sharma RN [facility] Comment on above: Rectal Bleeding Start: 03-03-2025 End: 03-03-2025 ambulatory IRENE RANDOLPH Facility:[facility] Start: 03-03-2025 End: 03-03-2025 Subsequent hospital visit by physician Mri Radio [facility] W[facility] (I-Stat/1.5t) Work Phone: Radiology Comment on above: Chronic migraine wit h aura without status migrainosus, not intractable [G43.E09] Start: 03-02-2025 End: 03-02-2025 E-mail encounter from caregiver Janett Dash [facility] Work Phone: [facility] Start: 03-02-2025 End: 03-02-2025 ambulatory Janett Dash [facility] Work Phone: [facility] Comment on above: [facility] Sri n Start: 03-02-2025 End: 03-02-2025 Subsequent hospital visit by physician Iop Team B [facility] Start: 03-01-2025 End: 03-01-2025 Telemedicine consultation with patient Yevgeniy Cummins DO Work Phone: Neurology Pain Start: 03-01-2025 End: 03-01-2025 ambulatory Yevgeniy Cummins DO Work Phone: Neurology Pain Comment on above: Chronic migraine wit h aura without status migrainosus, not intractable; Complex regional pain syndrome type 1 of left lower extremity Start: 02-28-2025 ambulatory IVETH HERNANDEZ Facility :[facility] Start: 02-28-2025 End: 02-28-2025 Subsequent hospital visit by physician Gloria Smith APRN.CNP Work Phone: [facility] Start: 02-27-2025 End: 02-27-2025 ambulatory IVETH HERNANDEZ Facility:[facility] Start: 02-27-2025 End: 02-27-2025 ambulatory DARIAN AMES Facility:[facility] Start: 02-24-2025 ambulatory IVETH HERNANDEZ Facility :[facility] Start: 02-24-2025 End: 02-24-2025 Subsequent hospital visit by physician Ana Bruce [facility] Medicine Start: 02-20-2025 End: 02-20-2025 [facility] Saniaissa Price PA-C Work Phone: Neurology Pain Comment [...] Start: 02-17-2025 End: 02-17-2025 ambulatory IRENE RANDOLPH Facility:[facility] Start: 02-16-2025 End: 02-24-2025 ambulatory [facility] Provider [facility] Behavioral Medicine Comment on above: Info for IOP and Saf ety plan Start: 02-16-2025 End: 02-24-2025 E-mail encounter from caregiver [facility] Provider [facility] Medicine Start: 02-14-2025 ambulatory DARIAN AMES Facilit y:[facility] Start: 02-14-2025 End: 02-14-2025 [facility] Start: 02-14-2025 End: 02-14-2025 Subsequent hospital visit by physician Screen Mammo [facility] Mammogram Start: 02-13-2025 End: 02-13-2025 Patient encounter procedure Darian Ames MD Work Phone: OB/Gynecology Comment on above: Encounter for gyneco logical examination (general) (routine) without abnormal findings (Primary Dx); Encounter for screening mammogram for breast cancer Start: 02-13-2025 End: 02-13-2025 Patient encounter status Darian Ames MD Work Phone: [facility] Start: 02-13-2025 End: 02-13-2025 ambulatory DARIAN AMES Facility:[facility] Start: 02-13-2025 Encounter for gynecological examination (general) (routine) without abnormal findings DARIAN AMES [facility] Start: 01-20-2025 ambulatory IVETH HERNANDEZ Facility :[facility] Start: 01-20-2025 End: 01-20-2025 Subsequent hospital visit by physician Candis Gamez MD Work Phone: LD SURGERY Comment on above: Left lower quadrant abdominal pain [R10.32] Start: 01-17-2025 ambulatory IVETHSONY HERNANDEZ Facili ty:[facility] Start: 01-17-2025 End: 01-17-2025 Subsequent hospital visit by physician [facility] Mob 1 Work Phone: Radiology Comment on above: Encounter for screen ing mammogram for breast cancer [Z12.31] Start: 01-12-2025 End: 01-12-2025 Patient encounter procedure Elizabeth Karimi PA-C Work Phone: Orthopaedics Comment on above: Chronic pain of left knee (Primary Dx); Arthrofibrosis of knee joint, left Start: 01-12-2025 End: 01-12-2025 ambulatory IVETH HERNANDEZ [facility] Start: 01-12-2025 End: 01-12-2025 Subsequent hospital visit by physician Radio General Maria De Jesus Casas Work Phone: Radiology Comment on above: Left knee pain, unsp ecified chronicity [M25.562] Start: 01-10-2025 End: 01-11-2025 Patient encounter procedure Nopcp (Historical) [facility] Comment on above: Chronic pain of left knee (Primary Dx); Medication management; Major depressive disorder, single episode, severe without psychotic features (HCC); Generalized anxiety disorder; Suicidal ideation; Personal history of traumatic brain injury; Chronic pain syndrome Left knee pain, unsp ecified chronicity (Primary Dx) Start: 01-10-2025 End: 01-10-2025 ambulatory Nopcp (Historical) [facility] Start: 01-09-2025 End: 01-09-2025 Telemedicine consultation with patient Ani Kay Rajput APRN.CNP Work Phone: [facility] Start: 01-09-2025 End: 01-09-2025 ambulatory Ani Villanueva Tessy [employer]ING [employer] MAN.COMMUNITY HEALTH PLANNING DIRECTOR Work Phone: [facility] Comment on above: Intractable chronic migraine without aura and with status migrainosus (Primary Dx) Start: 12-15-2024 End: 12-15-2024 Patient encounter procedure Fridacuate Vargas [employer]ING [employer] MAN.COMMUNITY HEALTH PLANNING DIRECTOR Work Phone: [facility] Comment on above: Intractable chronic migraine without aura and with status migrainosus (Primary Dx) Start: 12-15-2024 End: 12-15-2024 ambulatory IVETH HERNANDEZ Facility:[facility] Start: 12-12-2024 End: 12-12-2024 Follow-up encounter Iveth Hernandez BLASTING [employer] MAN.COMMUNITY HEALTH PLANNING DIRECTOR Work Phone: [facility] Start: 12-12-2024 End: 12-12-2024 Telephone encounter Iveth Hernandez BLASTING [employer] MAN.COMMUNITY HEALTH PLANNING DIRECTOR Work Phone: [facility] Comment on above: Patient Question Start: 12-07-2024 End: 12-07-2024 Telephone encounter Iveth Hernandez [employer]ING [employer] MAN.COMMUNITY HEALTH PLANNING DIRECTOR Work Phone: [facility] Comment on above: Patient Question (Di agnostic mammogram. ) Start: 12-07-2024 End: 12-07-2024 Patient encounter procedure Zhanna Shah [employer]ING [employer] MAN.COMMUNITY HEALTH PLANNING DIRECTOR Work Phone: General Surgery Comment on above: Left lower quadrant abdominal pain (Primary Dx); Screening for colon cancer; BRBPR (bright red blood per rectum); Coughing up blood; Dysphagia, unspecified type Start: 12-07-2024 End: 12-07-2024 ambulatory IVETH HERNANDEZ Facility:[facility] Start: 12-06-2024 End: 12-06-2024 Patient encounter procedure Iveth Hernandez BLASTING [employer] MAN.COMMUNITY HEALTH PLANNING DIRECTOR Work Phone: [facility] Comment on above: Well adult exam ([facility] veronika Dx); Elevated alkaline phosphatase level; Chronic pain [...] End: 12-06-2024 Patient encounter status Iveth Hernandez APRN.COMMUNITY HEALTH PLANNING DIRECTOR Work Phone: [facility] Start: 12-06-2024 End: 12-06-2024 ambulatory IVETH HERNANDEZ Facility:[facility] Start: 12-06-2024 Encounter for genera l adult medical examination without abnormal findings IVETH HERNANDEZ [facility] Start: 12-01-2024 End: 03-01-2025 Telephone encounter Yesica Bean MD Work Phone: Neurology Comment on above: Patient Question Start: 10-26-2024 End: 10-26-2024 [facility] visit, estab pt Ani Rajput APRN.COMMUNITY HEALTH PLANNING DIRECTOR Work Phone: [facility] Comment on above: Established Patient; Headache; Injections (Sphenopalatine/) Start: 10-26-2024 End: 10-26-2024 Patient encounter procedure Ani Rajput APRN.GEMMA Work Phone: [facility] Start: 10-26-2024 End: 10-26-2024 ambulatory FRIDA PREBISH Facility[facility] Start: 10-20-2024 End: 10-20-2024 ambulatory Ronnie Pettit PT Work Phone: [facility] Comment on above: Chronic pain of left knee (Primary Dx); Arthrofibrosis of knee joint, left Start: 10-19-2024 End: 10-19-2024 ambulatory IRENE RANDOLPH Facility:[facility] Start: 10-19-2024 End: 10-19-2024 Patient encounter procedure Irene Randolph DO Work Phone: Orthopaedics Comment on above: Chronic pain of left knee (Primary Dx) Start: 10-19-2024 End: 10-20-2024 Telephone encounter Irene Randolph DO Work Phone: [facility] Comment on above: Patient Question Start: 10-18-2024 End: 10-18-2024 ambulatory Ronnie Hodan PT Work Phone: [facility] Comment on above: Chronic pain of left knee (Primary Dx); Arthrofibrosis of knee joint, left Start: 10-12-2024 End: 10-13-2024 Telephone encounter Irene Randolph DO Work Phone: Orthopaedics Comment on above: post op pain Start: 10-12-2024 End: 10-12-2024 ambulatory Ronnie Hodan PT Work Phone: [facility] Comment on above: Chronic pain of left knee (Primary Dx); Arthrofibrosis of knee joint, left Start: 10-05-2024 End: 10-05-2024 ambulatory Ronnie Hodan PT Work Phone: [facility] Comment on above: Chronic pain of left knee (Primary Dx); Arthrofibrosis of knee joint, left Start: 10-04-2024 End: 10-04-2024 Subsequent hospital visit by physician Irene Randolph DO Work Phone: [facility] Surgery Comment on above: Chronic pain of left knee [M25.562, G89.29], Arthrofibrosis of knee joint, left [M24.662] Start: 09-30-2024 End: 09-30-2024 ambulatory IRENE RANDOLPH Facility:[facility] Start: 09-29-2024 End: 11-29-2024 Follow-up encounter Yesica Bean MD Work Phone: Neurology Start: 09-28-2024 End: 09-28-2024 Orders Only Elizabeth Karimi PA-C Work Phone: Orthopaedics Comment on above: Chronic pain of left knee (Primary Dx); Arthrofibrosis of knee joint, left Start: 09-27-2024 Encounter for other preprocedural examination RONNIE PETTIT [facility] Start: 09-27-2024 End: 09-27-2024 PAT [facility] Pre Anest[facility] Comment on above: Preop examination (P rimary Dx); Seizure-like activity (HCC); Psychogenic nonepileptic seizure; Hypothyroidism, unspecified type; Mood disorder (HCC); Intractable chronic migraine without aura and with status migrainosus Start: 09-27-2024 End: 09-27-2024 Preprocedural examination done [facility] Work Phone: Start: 09-26-2024 End: 09-26-2024 ambulatory YESICA BEAN Facility:[facility] Start: 09-23-2024 End: 09-23-2024 Orders Only Irene Randolph DO Work Phone: Orthopaedics Comment on above: Chronic pain of left knee (Primary Dx); Arthrofibrosis of knee joint, left Start: 09-22-2024 End: 09-22-2024 Telephone encounter Frida Vargas APRN.CNP Work Phone: [facility] Comment on above: Injections Start: 09-22-2024 End: 09-22-2024 Patient encounter procedure Frida Vargas APRN.CNP Work Phone: [facility] Comment on above: Intractable chronic migraine without aura and with status migrainosus (Primary Dx) Start: 09-22-2024 End: 09-22-2024 ambulatory FRIDA PREBISH [facility] Start: 09-21-2024 End: 09-21-2024 ambulatory IRENE RANDOLPH Facility:[facility] Start: 09-21-2024 End: 09-21-2024 Patient encounter procedure Irene Randolph DO Work Phone: Orthopaedics Comment on above: Arthrofibrosis of kn ee joint, left (Primary Dx); Chronic pain of left knee Start: 09-12-2024 End: 09-12-2024 ambulatory Ronnie Pettit PT Work Phone: [facility] Comment on above: Chronic pain of left knee (Primary Dx) Start: 09-05-2024 End: 09-05-2024 Telephone encounter Frida Laichristiano MENDEZ.COMMUNITY HEALTH PLANNING DIRECTOR Work Phone: [facility] Comment on above: Returning Patient's Call; New Patient Start: 09-01-2024 End: 09-12-2024 Telephone encounter Yesica Bean MD Work Phone: Neurology Comment on above: update Start: 08-31-2024 End: 08-31-2024 ambulatory Ronnie Pettit PT Work Phone: [facility] Comment on above: Chronic pain of left knee (Primary Dx); Acute medial meniscus tear of left knee, initial encounter Start: 08-31-2024 End: 08-31-2024 Patient encounter procedure No Pcp BLASTING CONTRACT MAN [facility] Start: 08-29-2024 End: 08-30-2024 Refill Yesica Bean MD Work Phone: Neurology Start: 08-25-2024 End: 08-25-2024 ambulatory Sarika Rao MD Work Phone: Endocrinology Comment on above: Overweight (BMI 25.0 -29.9) Intractable chronic migraine without aura and without status migrainosus (Primary Dx) Start: 08-25-2024 End: 08-25-2024 Telemedicine consultation with patient Sarika Rao MD Work Phone: Endocrinology Start: 08-23-2024 End: 08-23-2024 ambulatory ANAYA BARTLETT Facility:[facility] Start: 08-19-2024 End: 08-19-2024 ambulatory IRENE RANDOLPH Facility:[facility] Start: 08-19-2024 End: 08-19-2024 Patient encounter procedure Irene Randolph DO Work Phone: Orthopaedics Comment on above: Chronic pain of left knee (Primary Dx) Start: 08-15-2024 End: 08-15-2024 ambulatory Ronnie Hodan PT Work Phone: [facility] Comment on above: Chronic pain of left knee (Primary Dx); Acute medial meniscus tear of left knee, initial encounter Start: 08-11-2024 End: 08-11-2024 ambulatory Ronnie Hodan PT Work Phone: [facility] Comment on above: Chronic pain of left knee (Primary Dx); Acute medial meniscus tear of left knee, initial encounter Start: 08-08-2024 End: 08-08-2024 ambulatory Ronnie Hodan PT Work Phone: [facility] Comment on above: Chronic pain of left knee (Primary Dx); Acute medial meniscus tear of left knee, initial encounter Start: 08-02-2024 End: 08-02-2024 Patient encounter procedure Debbie Pichardo MD Work Phone: Endocrinology Comment on above: Overweight (BMI 25.0 -29.9) (Primary Dx); Subclinical hypothyroidism; Ton thyroiditis Start: 08-02-2024 End: 08-02-2024 ambulatory Steph Ontiveros PT [facility] Comment on above: Tear of medial menis cus of left knee, current, unspecified tear type, initial encounter (Primary Dx); Chronic pain of left knee; Acute medial meniscus tear of left knee, initial encounter; Sprain of right ankle, unspecified ligament, initial encounter Start: 07-27-2024 End: 07-27-2024 ambulatory Ronnie Hodan PT Work Phone: [facility] Comment on above: Tear of medial menis cus of left knee, current, unspecified tear type, initial encounter Start: 07-21-2024 End: 07-21-2024 ambulatory Ronnie Hodan PT Work Phone: [facility] Comment on above: Chronic pain of left knee (Primary Dx); Acute medial meniscus tear of left knee, initial encounter Start: 07-18-2024 End: 07-18-2024 [facility] Uriel Greenwood MD Work Phone: Neurology Comment on above: Psychogenic nonepile ptic seizure (Primary Dx); Severe episode of recurrent major depressive disorder, with psychotic features (HCC) Start: 07-15-2024 End: 07-15-2024 ambulatory ANAYA BARTLETT Facility:[facility] Start: 07-14-2024 End: 07-15-2024 Refill Irene Randolph DO Work Phone: Orthopaedics Comment on above: Prescription Refills Pain of left calf (P rimary Dx); S/P arthroscopy of knee Start: 06-30-2024 End: 06-30-2024 ambulatory IRENE RANDOLPH Facility:[facility] Start: 06-29-2024 Encounter for other preprocedural examination RONNIE PETTIT [facility] Start: 06-29-2024 End: 06-29-2024 Preprocedural examination done [facility] Work Phone: Start: 06-29-2024 End: 06-29-2024 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) Start: 06-16-2024 End: 06-16-2024 Patient encounter procedure Irene Randolph DO Work Phone: Orthopaedics Comment on above: 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); S/P arthroscopy of knee Start: 06-07-2024 End: 06-07-2024 ambulatory Ronnie Pettit PT Work Phone: [facility] Comment on above: Chronic pain of left knee (Primary Dx); Acute medial meniscus tear of left knee, initial encounter Start: 06-03-2024 End: 06-03-2024 ambulatory Ronnie Pettit PT Work Phone: [facility] Comment on above: Chronic pain of left knee (Primary Dx); Acute medial meniscus tear of left knee, initial encounter Start: 05-31-2024 End: 05-31-2024 ambulatory Ronnie Pettit PT Work Phone: [facility] Comment on above: Chronic pain of left knee (Primary Dx); Acute medial meniscus tear of left knee, initial encounter Start: 05-30-2024 End: 05-30-2024 ambulatory Sierra Dunham PA-C Work Phone: Neurology Comment on above: Seizure (HCC) (Prima ry Dx) Start: 05-30-2024 End: 05-30-2024 Telemedicine consultation with patient Sierra Dunham PA-C Work Phone: Neurology Start: 05-25-2024 End: 10-14-2024 Telephone encounter Uriel Greenwood MD Work Phone: Neurology Comment on above: Medication Authoriza tion (Lamictal XR) Start: 05-24-2024 End: 05-25-2024 Refill Uriel Greenwood MD Work Phone: Neurology Comment on above: Refill Request Start: 05-19-2024 End: 05-24-2024 Telephone encounter Tania BRINK [facility] Comment on above: Patient Question Start: 05-19-2024 End: 05-19-2024 Patient encounter procedure Irene Randolph DO Work Phone: Orthopaedics Comment on above: 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) Start: 2024 End: 2024 ambulatory Ronnie Pettit PT Work Phone: [facility] Comment on above: Chronic pain of left knee (Primary Dx); Acute medial meniscus tear of left knee, initial encounter Start: 04-27-2024 End: 04-27-2024 Telephone encounter Isabel Dahl RN Orthopaedics Start: 04-21-2024 End: 04-21-2024 Patient encounter procedure Heidiandrea Randolph DO Work Phone: Orthopaedics Comment on above: Pain of left calf (P rimary Dx); Chronic pain of left knee; Acute medial meniscus tear of left knee, initial encounter Start: 04-04-2024 End: 04-04-2024 Admission to establishment [facility] Start: 04-04-2024 End: 04-04-2024 Anesthesia consultation [facility]est[facility] Comment on above: Preop examination (P rimary Dx); Intractable chronic migraine without aura and with status migrainosus Start: 04-04-2024 End: 04-04-2024 Preprocedural examination done Pac [facility] Work Phone: Start: 04-01-2024 End: 04-01-2024 Orders Only HeidiYajaira Randolph DO Work Phone: Orthopaedics Comment on above: Tear of medial menis cus of left knee, current, unspecified tear type, initial encounter (Primary Dx) Appointment Start: 03-30-2024 End: 03-30-2024 Patient encounter procedure Irene Darling Agustín HDEZ Work Phone: Orthopaedics Comment on above: Chronic pain of left knee (Primary Dx); Chondromalacia of left patella; Tear of medial meniscus of left knee, current, unspecified tear type, initial encounter Start: 02-27-2024 End: 02-27-2024 Patient encounter procedure Quintin Mcguire MD Work Phone: [facility] Comment on above: Taste sense altered (Primary Dx); Chills Start: 02-10-2024 End: 02-10-2024 Subsequent hospital visit by physician Chasidy [facility] Suresh Casas Work Phone: Radiology Comment on above: Left leg pain [M79.6 05] Start: 02-05-2024 Telephone encounter Seven lutz MD Work Phone: Orthopaedics Comment on above: Appointment Start: 02-04-2024 End: 02-04-2024 Patient encounter procedure Seven Hernandez MD Work Phone: Orthopaedic Surgery [facility] Comment on above: Chronic pain of left knee (Primary Dx) Start: 02-04-2024 End: 02-04-2024 Subsequent hospital visit by physician Xr [facility] Roberta 1 Xray [facility] Comment on above: Left knee pain, unsp ecified chronicity [M25.562] Start: 01-11-2024 Orders Only Seven Hernandez MD Work Phone: Orthopaedics Comment on above: Left knee pain, unsp ecified chronicity (Primary Dx) Start: 12-17-2023 End: 12-17-2023 ambulatory [employer] CHANGE [employer]ERKS SUPERVISOR-C Jimenez Cabrera POLICY CHANGE CLERKS SUPERVISOR Work Phone: [facility] Work Phone: Start: 12-17-2023 End: 12-17-2023 Discharged Recurring [employer]IC[employer]ERKS SUPERVISOR-C Jimenez Cabrera POLICY CHANGE CLERKS SUPERVISOR Work Phone: [facility]-Physical Therapy Work Phone: Start: 10-20-2023 End: 10-20-2023 ambulatory POLICY CHANGE CLERKS SUPERVISOR-C Jimenez Cabrera POLICY CHANGE CLERKS SUPERVISOR Work Phone: [facility] Work Phone: Start: 10-20-2023 End: 10-20-2023 Patient encounter procedure POLICY CHANGE CLERKS SUPERVISOR-C Jimenez Cabrera POLICY CHANGE CLERKS SUPERVISOR Work Phone: [facility]Laboratory Work Phone: Start: 10-15-2023 End: 10-15-2023 Patient encounter procedure POLICY CHANGE CLERKS SUPERVISOR-C Jimenez Cabrera POLICY CHANGE CLERKS SUPERVISOR Work Phone: [facility] Work Phone: Start: 10-12-2023 End: 10-12-2023 Patient encounter procedure POLICY CHANGE CLERKS SUPERVISOR-C Jimenez Cabrera POLICY CHANGE CLERKS SUPERVISOR Work Phone: [facility] Work Phone: Start: 10-06-2023 End: 10-06-2023 ambulatory POLICY CHANGE CLERKS SUPERVISOR-C Jimenez Francispkins POLICY CHANGE CLERKS SUPERVISOR Work Phone: [facility] Work Phone: Start: 10-06-2023 End: 10-06-2023 Discharged Recurring POLIC[employer] CH[employer] CLERKS SUPERVISOR-C Jimenez Cabrera POLICY CHANGE CLERKS SUPERVISOR Work Phone: [facility] Therapy Work Phone: Start: 09-28-2023 End: 09-28-2023 ambulatory POLICY CHANGE CLERKS SUPERVISOR-C Jimenez Francispkins POLICY CHANGE CLERKS SUPERVISOR Work Phone: [facility] Work Phone: Start: 09-28-2023 End: 09-28-2023 Patient encounter procedure POLICY CHANGE CLERKS SUPERVISOR-C Jimenez Francispkins POLICY CHANGE CLERKS SUPERVISOR Work Phone: [facility] Work Phone: Start: 09-28-2023 End: 09-28-2023 Patient encounter procedure POLICY CHANGE CLERKS SUPERVISOR-C Jimenez Francispkins POLICY CHANGE CLERKS SUPERVISOR Work Phone: [facility] Work Phone: Start: 09-23-2023 End: 09-23-2023 ambulatory POLIC[employer] CHANGE CLERKS SUPERVISOR-C Jimenez Francispkins POLICY CHANGE CLERKS SUPERVISOR Work Phone: [facility] Work Phone: Start: 09-23-2023 End: 09-23-2023 Patient encounter procedure POLICY CHANGE CLERKS SUPERVISOR-C Jimenez [place] POLICY CHANGE CLERKS SUPERVISOR Work Phone: [facility] Work Phone: Start: 09-19-2023 End: 09-20-2023 Emergency department patient visit POLICY CHANGE CLERKS SUPERVISOR-C Jimenez Deborah POLICY CHANGE CLERKS SUPERVISOR Work Phone: [facility]-Emergency Department Work Phone: Start: 09-14-2023 End: 09-14-2023 Patient encounter procedure POLICY CHANGE CLERKS SUPERVISOR-C Jimenez Deborah POLICY CHANGE CLERKS SUPERVISOR Work Phone: [facility] Work Phone: Start: 08-24-2023 End: 08-24-2023 Subsequent hospital visit by physician Xr [facility] Work Phone: Radiology Comment on above: Bilateral sciatica [ M54.31, M54.32] Start: 08-24-2023 End: 08-24-2023 Emergency department patient visit [facility] Work Phone: Start: 04-28-2023 End: 04-28-2023 Office outpatient visit 15 minutes Stan Rodgers BLASTING CONTRACT MAN.COMMUNITY HEALTH PLANNING DIRECTOR Work Phone: [facility] Comment on above: Sore throat (Primary Dx); URI with cough and congestion Start: 04-10-2023 End: 04-10-2023 Subsequent hospital visit by physician Mri Radio [facility] Wstr (I-Stat/1.5t) Work Phone: Radiology Comment on above: Acute right ankle pa in [M25.571] Start: 04-08-2023 End: 04-09-2023 ambulatory DAYAN CHOE BLASTING CONTRACT MAN-COMMUNITY HEALTH PLANNING DIRECTOR Facility:B Start: 04-08-2023 End: 04-08-2023 Patient encounter procedure DAYAN CHOE BLASTING CONTRACT MAN-COMMUNITY HEALTH PLANNING DIRECTOR [facility] Start: 03-31-2023 Telephone encounter Iveth Cuate Hernandez BLASTING CONTRACT MAN.COMMUNITY HEALTH PLANNING DIRECTOR Work Phone: [facility] Comment on above: Missed Appointment ( New patient missed appointment.) Start: 03-19-2023 End: 03-20-2023 ambulatory DAYAN FISH BLASTING CONTRACT MAN-COMMUNITY HEALTH PLANNING DIRECTOR Facility:B Start: 03-19-2023 End: 03-19-2023 Patient encounter procedure DAYAN CHOE BLASTING CONTRACT MAN-COMMUNITY HEALTH PLANNING DIRECTOR [facility] Start: 03-13-2023 End: 03-13-2023 ambulatory Ronnie Pettit PT Work Phone: [facility] Comment on above: Sprain of right ankl e, unspecified ligament, initial encounter (Primary Dx) Start: 03-10-2023 End: 03-10-2023 Patient encounter procedure Brenden Puri Work Phone: Podiatry Comment on above: Sprain of right ankl e, unspecified ligament, initial encounter (Primary Dx); Peroneal tendinitis of right lower extremity; Acute right ankle pain Start: 02-17-2023 End: 02-17-2023 Subsequent hospital visit by physician Xr [facility] Mob Work Phone: Radiology Comment on above: Sprain of right ankl e, unspecified ligament, initial encounter [S93.401A] Start: 02-11-2023 End: 02-11-2023 Patient encounter procedure Brenden Puri Work Phone: Podiatry Comment on above: Sprain of right ankl e, unspecified ligament, initial encounter (Primary Dx) Start: 02-11-2023 End: 02-11-2023 Subsequent hospital visit by physician Xr [facility] Mob Work Phone: Radiology Comment on above: Acute right ankle pa in [M25.571] Start: 01-12-2023 End: 01-12-2023 [facility] Start: 12-31-2022 Telephone encounter Uriel trimble MD Work Phone: Neurology Comment on above: Results Start: 12-24-2022 End: 12-24-2022 Patient encounter procedure Misha Chambers APRN.CNP Work Phone: [facility] Comment on above: Unspecified migraine (Primary Dx) Start: 11-28-2022 End: 11-28-2022 Patient encounter procedure Uriel Greenwood MD Work Phone: Neurology Comment on above: Seizure (HCC) (Prima ry Dx) Start: 11-19-2022 End: 11-19-2022 Patient encounter procedure Yesica Bean MD Work Phone: Neurology Comment on above: Intractable chronic migraine without aura and without status migrainosus (Primary Dx); Medication overuse headache Start: 09-25-2022 Telephone encounter Urile trimble MD Work Phone: Neurology Comment on above: Seizures (Seizure ) Start: 09-25-2022 End: 09-25-2022 Patient encounter procedure Precious Vargas PA-C Work Phone: [facility] Comment on above: Chronic migraine wit h aura (Primary Dx); Seizure disorder (HCC) Start: 08-12-2022 Telephone encounter Uriel trimble MD Work Phone: Neurology Comment on above: Medication Concern ( Zonisamide) Start: 08-10-2022 Refill Shy Leong BLASTING CONTRACT MAN.COMMUNITY HEALTH PLANNING DIRECTOR Work Phone: Neurology Comment on above: Refill Request Start: 05-06-2022 End: 05-06-2022 Subsequent hospital visit by physician Xr [facility] Work Phone: Radiology Comment on above: Right hand pain [M79 .641] Start: 05-06-2022 End: 05-06-2022 Patient encounter procedure Steph Shaw BLASTING CONTRACT MAN.COMMUNITY HEALTH PLANNING DIRECTOR Work Phone: [facility] Comment on above: Right hand pain (Sarah veronika Dx) Start: 03-27-2022 End: 03-27-2022 Emergency department patient visit [facility]Emergency Department Start: 02-27-2022 End: 02-27-2022 Subsequent hospital visit by physician Xr [facility] Work Phone: Radiology Comment on above: Chronic neck pain [M 54.2, G89.29] Start: 02-27-2022 End: 02-27-2022 Patient encounter procedure Jimena Ashley BLASTING CONTRACT MAN.COMMUNITY HEALTH PLANNING DIRECTOR Work Phone: [facility] Comment on above: Disturbance of skin sensation (Primary Dx); Arthritis of carpometacarpal (CMC) joint of right thumb; Other chronic pain; Chronic neck pain Start: 01-07-2022 Telephone encounter Ward Chaves MD Work Phone: [facility] Comment on above: Appointment (Referra l to PM ) Start: 01-07-2022 End: 01-07-2022 Patient encounter procedure Lori Corral BLASTING CONTRACT MAN.COMMUNITY HEALTH PLANNING DIRECTOR Work Phone: [facility] Comment on above: Viral illness (Prima ry Dx); Exposure to COVID-19 virus Start: 01-01-2022 End: 01-01-2022 Orders Only Yesica Bean MD Work Phone: Neurology Comment on above: Intractable chronic migraine without aura and with status migrainosus (Primary Dx) Start: 12-16-2021 Telephone encounter Ward Chaves MD Work Phone: [facility] Comment on above: Appointment Appointment (ER f/u- scheduled ) Start: 12-15-2021 End: 12-15-2021 Emergency department patient visit [facility]-Emergency Department Start: 12-05-2021 Telephone encounter Ana tobin BLASTING CONTRACT MAN.COMMUNITY HEALTH PLANNING DIRECTOR Work Phone: [facility] [place] Comment on above: Results; Orders Start: 11-14-2021 End: 11-14-2021 Discharged Recurring [facility]-Occupational Therapy Start: 11-11-2021 End: 11-11-2021 Patient encounter procedure Ward Go MD Work Phone: [facility] Comment on above: Numbness of right addison nd (Primary Dx) Start: 03-08-2019 End: 03-08-2019 Patient encounter procedure Alberto Matamoros MD Work Phone: [facility] Work Phone: Procedures Date Procedure Procedure Detail Performing Clinician Start: 05-02-2025 Follow-up visit Follow Up YESICA BEAN Start: 04-21-2025 Hepatobil syst imag inc gb w/pharma intervenj Duong Damon BLASTING CONTRACT MAN.COMMUNITY HEALTH PLANNING DIRECTOR Work Phone: Start: 04-11-2025 Urnls dip stick/tabl et rgnt auto w/o microscopy [facility] Provider Start: 03-06-2025 Measurement of occul t blood in stool specimen using immunoassay Jimenez Cabrera POLICY CHANGE CLERKS SUPERVISOR-C Work Phone: Start: 03-06-2025 Urnls dip stick/tabl et reagent auto microscopy Jimenez Cabrera POLICY CHANGE CLERKS SUPERVISOR-C Work Phone: Start: 03-06-2025 Estimated creatinine clearance Jimenez Cabrera POLICY CHANGE CLERKS SUPERVISOR-C Work Phone: Start: 03-06-2025 Computed tomography of abdomen and pelvis with intravenous contrast Jimenez Cabrera POLICY CHANGE CLERKS SUPERVISOR-C Work Phone: Start: 03-03-2025 Mri brain brain stem w/o contrast material Irene Randolph DO Work Phone: Start: 01-20-2025 Colonoscopy flx dx w/collj spec when pfrmd Candis Gamez MD Work Phone: Start: 01-20-2025 Esophagoscp rig transoral hypopharynx crv esoph Candis Gamez MD Work Phone: Start: 01-20-2025 Colonoscopy Candis Gamez MD Work Phone: Start: 01-17-2025 Digital breast tomosynthesis bilateral Iveth Hernandez APRN.COMMUNITY HEALTH PLANNING DIRECTOR Work Phone: Start: 12-15-2024 Follow-up visit Follow Up FRIDA MANJARREZ Start: 12-07-2024 Lipid 1996 panel - S francisco or Plasma Iveth Hernandez APRN.COMMUNITY HEALTH PLANNING DIRECTOR Work Phone: Start: 10-04-2024 PHOTO KNEE LEFT [facility] Pro vider Start: 02-04-2024 Radiologic exam knee complete 4/more views Seven Hernandez MD Work Phone: Start: 09-23-2023 MRI of joint of lowe r extremity POL[employer] CH[employer] CLERKS SUPERVISOR-C Jimenez Cabrera POLICY CHANGE CLERKS SUPERVISOR Work Phone: Start: 09-19-2023 Radiologic examinati on of knee POLICY CHANGE CLERKS SUPERVISOR-C Jimenez Cabrera POLICY CHANGE CLERKS SUPERVISOR Work Phone: Start: 09-14-2023 X-ray of lumbar spin e, two or three views POLICY CHANGE CLERKS SUPERVISOR-C Jimenez Cabrera POLICY CHANGE CLERKS SUPERVISOR Work Phone: Start: 09-14-2023 Radiologic examinati on of knee POLICY CHANGE CLERKS SUPERVISOR-C Jimenez Cabrera POLICY CHANGE CLERKS SUPERVISOR Work Phone: Start: 08-24-2023 Radex spine lumbosac ral 2/3 views Lori Corral BLASTING CONTRACT MAN.COMMUNITY HEALTH PLANNING DIRECTOR Work Phone: Start: 04-28-2023 STREP A MOLECULAR [...] Radex hand minimum 3 views Steph Shaw BLASTING CONTRACT MAN.COMMUNITY HEALTH PLANNING DIRECTOR Work Phone: Start: 03-27-2022 Plain chest X-ray Start: 02-27-2022 Radex spine cervical 6 or more views Jimena Ashley BLASTING CONTRACT MAN.COMMUNITY HEALTH PLANNING DIRECTOR Work Phone: Start: 12-15-2021 Plain x-ray of [...] Start: 03-15-2018 Cardiovascular stres s testing DAYAN CHOE BLASTING CONTRACT MAN-COMMUNITY HEALTH PLANNING DIRECTOR Start: 01-05-2018 Colonoscopy Ward Banerjee Jr., MD Work Phone: Start: 12-25-2017 Mammography Ward Banerjee Jr., MD Work Phone: Abdominal hysterectomy Abdominal hysterectomy DAYAN CHOE BLASTING CONTRACT MAN-COMMUNITY HEALTH PLANNING DIRECTOR Cardiac catheterization ROXA ULISES CHOE BLASTING CONTRACT MAN-COMMUNITY HEALTH PLANNING DIRECTOR section DAYANIRENE MOE H BLASTING CONTRACT MAN-COMMUNITY HEALTH PLANNING DIRECTOR Colonoscopy DAYAN CHOE BLASTING CONTRACT MAN-COMMUNITY HEALTH PLANNING DIRECTOR Hysterectomy DAYAN CHOE BLASTING CONTRACT MAN-COMMUNITY HEALTH PLANNING DIRECTOR Ligation of fallopia n tube DAYAN CHOE BLASTING CONTRACT MAN-COMMUNITY HEALTH PLANNING DIRECTOR NEGATED: Highlighted rowStart: 03-08-2019 End: 03-08-2019 Documentation of current medications Lauren Sharma LPN Plan of Treatment Date Care Activity Detail Author Start: 01-20-2030 Screening for malignant neoplasm of colon [facility] Start: 12-07-2029 Lipid panel Lipid Screening [facility] Start: 03-30-2028 Diabetes Screening Diabetes Screening [facility] Start: 03-08-2028 Diabetes Screening Diabetes Screening [facility] Start: 12-08-2027 Diabetes Screening Diabetes Screening [facility] Start: 09-26-2027 Diabetes Screening Diabetes Screening [facility] Start: 06-19-2027 Diabetes Screening Diabetes Screening [facility] Start: 03-30-2026 Annual PCP Team Chronic Disease Visit Annual PCP Team Chronic Disease Visit [facility] Start: 01-20-2026 Screening for malignant neoplasm of colon [facility] Start: 01-17-2026 Screening for malignant neoplasm of breast Mammogram Screening [facility] Start: 01-10-2026 BP Controlled (<130/80) BP Controlled (<130/80) [facility] Start: 01-10-2026 zzBP Controlled (<130/80) (Retired) zzBP Controlled (<130/80) (Retired) [facility] Start: 12-26-2025 DIABETES SCREEN DIABETES SCREEN [facility] Start: 12-26-2025 Diabetes Screening Diabetes Screening [facility] Start: 12-06-2025 Annual PCP Team Chronic Disease Visit Annual PCP Team Chronic Disease Visit [facility] Start: 11-14-2025 Urine microalbumin profile [facility] Start: 08-02-2025 BP Controlled (<130/80) BP Controlled (<130/80) [facility] Start: 08-02-2025 End: 11-01-2025 Thyrotropin [Units/volume] in Serum or Plasma THYROID STIMULATING HORMONE Lab Routine Subclinical hypothyroidism Ton thyroiditis Expected: 08/02/2025, Expires: 11/01/2025 [facility] Work Phone: Comment on above: Expected: 08/02/2025, Expires: Start: 08-02-2025 End: 11-01-2025 Thyroxine (T4) free [Mass/volume] in Serum or Plasma T4 FREE/FREE THYROXINE Lab Routine Subclinical hypothyroidism Ton thyroiditis Expected: 08/02/2025, Expires: 11/01/2025 [facility] Comment on above: Expected: 08/02/2025, Expires: Start: 08-02-2025 End: 08-02-2025 ambulatory 08/02/2025 10:00 AM EST Results Only [facility] [address] [place] [address] [facility] Start: 06-30-2025 End: 06-30-2025 Patient encounter procedure 06/30/2025 10:20 AM EST Office Visit [facility] [address] [place] [address] Iveth Hernandez, BLASTING CONTRACT MAN.COMMUNITY HEALTH PLANNING DIRECTOR [address] [place] [address] Thyroid problem [facility] Comment on above: Thyroid problem Start: 05-23-2025 End: 05-23-2025 Patient encounter procedure 05/23/2025 10:05 AM EDT Office Visit Gastroenterology [facility] [address] [place] [id number] Duong Damon, BLASTING CONTRACT MAN.COMMUNITY HEALTH PLANNING DIRECTOR [address] [place] [address] 2 Month Follow up Gastroenterology [facility] Comment on above: 2 Month Follow up Start: 05-19-2025 End: 05-19-2025 Patient encounter procedure 05/19/2025 12:00 PM EDT Office Visit Urology [address] [facility] [place] [address] Margarette Sneed APRN.COMMUNITY HEALTH PLANNING DIRECTOR [address] [place] [address] 4 week follow up, kub Urology Comment on above: 4 week follow up, kub Start: 05-16-2025 End: 05-16-2025 Patient encounter procedure 05/16/2025 10:00 AM EDT OT/PT/Speech Visit [facility] [address] [place] [address] Ronnie Carter, PT Dry land eval [facility] Comment on above: Dry land eval Start: 05-11-2025 End: 05-11-2025 Patient encounter procedure 05/11/2025 9:30 AM EDT Office Visit [facility] [address] [place] [address] [address] [place] [address] Chelsie Peralta MD [address] [place] [address] (Fax) chronic cholecystitis [facility] Comment on above: chronic cholecystitis Start: 05-08-2025 End: 05-11-2026 XR Abdomen Supine and Upright XR ABDOMEN 1V SUPINE Radiology Routine Kidney stone Expected: 05/08/2025 (Approximate), Expires: 05/11/2026 [facility] Work Phone: Comment on above: Expected: 05/08/2025 (Approximate), Expi res: 05/11/2026 Start: 05-04-2025 End: 05-04-2025 ambulatory 05/04/2025 1:00 PM EDT OT/PT/Speech Visit [facility] [address] [place] [address] Other dysphagia [R13.19] [facility] Comment on above: Other dysphagia [R13.19] Start: 05-04-2025 End: 05-04-2025 Patient encounter procedure 05/04/2025 1:00 PM EDT Appointment [facility] [address] [place] [address] Other dysphagia [R13.19] [facility] Comment on above: Other dysphagia [R13.19] Start: 05-02-2025 End: 05-02-2025 Patient encounter procedure 05/02/2025 10:30 AM EDT Office Visit Neurology [address] [place] [address] [place] [address] [address] [place] [address] headache-follow up Neurology Comment on above: headache-follow up Start: 05-01-2025 End: 05-01-2025 Patient encounter procedure 05/01/2025 9:45 AM EDT Office Visit Orthopaedics [address] [address] Darian Campbell MD [address] [place] [address] Follow up appointment Orthopaedics Comment on above: Follow up appointment Start: 05-01-2025 End: 05-01-2025 ambulatory 05/01/2025 9:00 AM EDT Results Only [facility] [address] [place] [address] S[facility] Start: 04-30-2025 End: 09-26-2025 TSH W/REFLEX FT4 TSH W/REFLEX FT4 Lab Routine Hypothyroidism, unspecified type Expected: 04/30/2025 (Approximate), Expires: 09/26/2025 [facility] Work Phone: Comment on above: Expected: 04/30/2025 (Approximate), Expi res: 09/26/2025 Start: 04-27-2025 End: 04-27-2025 Patient encounter procedure 04/27/2025 1:00 PM EDT OT/PT/Speech Visit [facility] [address] [place] [address] Ronnie Carter, PT Dry land eval [facility] Comment on above: Dry land eval Start: 04-24-2025 End: 04-24-2025 Patient encounter procedure 04/24/2025 8:15 AM EDT Office Visit Orthopaedics [address] [address] Darian Campbell MD [address] [place] [address] Follow up appointment Orthopaedics Comment on above: Follow up appointment Start: 04-21-2025 End: 04-21-2025 Patient encounter procedure [facility] Comment on above: Dry land eval Dx: Calculus of gall bladder without cholecystitis without obstruction [K80.20]; Nausea [R11.0]; Generalized abdominal pain [R10.84] Start: 04-14-2025 End: 04-14-2025 Patient encounter procedure 04/14/2025 9:00 AM EDT Office Visit Orthopaedics [address] [address] Sylvia Spears PA-C [address] [place] [address] left knee pain Orthopaedics Comment on above: left knee pain Start: 04-12-2025 End: 04-12-2025 Patient encounter procedure 04/12/2025 9:00 AM EDT Appointment [facility] [address] [facility] [place] [address] [employer]oom [facility] Comment on above: Zoom Group B Start: 04-11-2025 End: 04-11-2025 Patient encounter procedure [facility] Comment on above: Zoom Group B post op eswl Start: 04-10-2025 Influenza vaccination [facility] Start: 04-06-2025 End: 04-06-2025 Patient encounter procedure 04/06/2025 9:00 AM EDT Appointment [facility] [address] [place] [address] [facility]oom Group B [facility] Comment on above: Zoom Group B Start: 04-05-2025 End: 04-05-2025 ambulatory 04/05/2025 10:00 AM EDT [facility] Neurology Pain [address] [address], [place] [address] Sania Price PA-C [address] [place], [place] [id number] Neurology Pain Start: 04-04-2025 End: 04-04-2025 Patient encounter procedure 04/04/2025 9:00 AM EDT Appointment [facility] Medicine 1 [place] [address] [employer] [facility] Comment on above: [employer] Start: 04-03-2025 End: 04-03-2025 Patient encounter procedure 04/03/2025 9:00 AM EDT Appointment [facility] Medicine 1 [place] [address] [employer] [facility] Comment on above: [employer] Start: 03-30-2025 End: 03-30-2025 Patient encounter procedure [facility] Comment on above: [employer] 3 MTH F/U Thyroid Start: 03-29-2025 End: 03-29-2025 Admission to same day surgery center 03/29/2025 4:20 PM EDT - 03/29/2025 5:30 PM EDT Surgery [facility] Surgery [address] [facility] [place] [address] Lavonne Rai MD [address] [facility] [place] [place] [address] EXTRACORPOREAL SHOCKWAVE LITHOTRIPSY UNILATERAL [facility] Surgery Comment on above: EXTRACORPOREAL SHOCKWAVE LITHOTRIPSY UNI LATERAL Start: 03-29-2025 End: 03-29-2025 Lithotripsy xtrcorp shock wave EXTRACORPOREAL SHOCKWAVE LITHOTRIPSY UNILATERAL Ureteral calculi 03/29/2025 4:20 PM EDT MR OR Start: 03-29-2025 End: 03-29-2025 Admission to same day surgery center 03/29/2025 2:25 PM EDT - 03/29/2025 3:45 PM EDT Surgery [facility] Surgery [address] [facility] [place] [address] Lavonne Rai MD [address] [place] [address] EXTRACORPOREAL SHOCKWAVE LITHOTRIPSY UNILATERAL [facility] Surgery Comment on above: EXTRACORPOREAL SHOCKWAVE LITHOTRIPSY UNI LATERAL Start: 03-29-2025 End: 03-29-2025 Lithotripsy xtrcorp shock wave EXTRACORPOREAL SHOCKWAVE LITHOTRIPSY UNILATERAL Ureteral calculi 03/29/2025 2:25 PM EDT MR OR Start: 03-29-2025 Subsequent hospital visit by physician [facility] Surgery Comment on above: Ureteral calculi [N20.1] Start: 03-29-2025 End: 03-29-2025 Patient encounter procedure 03/29/2025 9:00 AM EDT Appointment [facility] Medicine 1 [place] [address] [employer] [facility] Comment on above: [employer] Start: 03-28-2025 End: 03-28-2025 Patient encounter procedure 03/28/2025 9:00 AM EDT Appointment [facility] [address] [facility] [place] [address] [employer] [facility] Comment on above: [employer] Start: 03-27-2025 End: 03-27-2025 Patient encounter procedure [facility] Medicine Comment on above: [employer] Generalized abdomina l pain [R10.84] Start: 03-23-2025 End: 03-23-2025 Patient encounter procedure 03/23/2025 9:00 AM EDT Appointment [facility] [address] [place] [address] [employer] [facility] Comment on above: [employer] Start: 03-22-2025 End: 03-22-2025 Patient encounter procedure 03/22/2025 9:00 AM EDT Appointment [facility] Medicine [address] [address] [employer] [facility] Medicine Comment on above: [employer] Start: 03-21-2025 End: 03-21-2025 Patient encounter procedure [facility] Comment on above: New patient [employer] f/u Start: 03-20-2025 End: 03-20-2025 Patient encounter procedure 03/20/2025 9:00 AM EDT Appointment [facility] [address] [facility] [place] [address] [employer] [facility] Comment on above: [employer] Start: 03-16-2025 End: 03-16-2025 Patient encounter procedure 03/16/2025 9:00 AM EDT Appointment [facility] Medicine [address] [place] [address] [employer] [facility] Medicine Comment on above: [employer] Start: 03-15-2025 End: 03-15-2025 Patient encounter procedure 03/15/2025 9:00 AM EDT Appointment [facility] [address] [facility] [place] [address] [employer] [facility] Medicine Comment on above: [employer] Start: 03-14-2025 End: 03-14-2025 Patient encounter procedure 03/14/2025 9:00 AM EDT Appointment [facility] [address] [place] [address] [employer] [facility] Medicine Comment on above: [employer] Start: 03-13-2025 End: 03-13-2025 Patient encounter procedure 03/13/2025 9:00 AM EDT Appointment [facility] 1 [facility] [place] [address] [employer] [facility] Comment on above: [employer] Start: 03-10-2025 End: 06-09-2025 Basic metabolic 2000 panel - Serum or Plasma BASIC METABOLIC PANEL Lab Routine Ureteral calculi Expected: 03/10/2025 (Approximate), Expires: 06/09/2025 [facility] Comment on above: Expected: 03/10/2025 (Approximate), Expi res: 06/09/2025 Start: 03-10-2025 End: 06-09-2025 CBC panel - Blood by Automated count COMPLETE BLOOD COUNT Lab Routine Ureteral calculi Expected: 03/10/2025 (Approximate), Expires: 06/09/2025 [facility] Work Phone: Comment on above: Expected: 03/10/2025 (Approximate), Expi res: 06/09/2025 Start: 03-10-2025 End: 03-09-2026 ECG COMPLETE ECG COMPLETE ECG Routine Ureteral calculi Expected: 03/10/2025 (Approximate), Expires: 03/09/2026 [facility] Comment on above: Expected: 03/10/2025 (Approximate), Expi res: 03/09/2026 Start: 03-10-2025 End: 06-09-2025 Urinalysis complete panel - Urine URINALYSIS (WITH MICROSCOPIC) WITH CULTURE IF INDICATED Lab Routine Ureteral calculi Expected: 03/10/2025 (Approximate), Expires: 06/09/2025 [facility] Comment on above: Expected: 03/10/2025 (Approximate), Expi res: 06/09/2025 Start: 03-10-2025 End: 03-10-2025 ambulatory 03/10/2025 12:45 PM EDT [facility] Orthopaedics [address] [address] Irene Randolph DO [address] [facility] [place] [address] MRI results Orthopaedics Comment on above: MRI results Start: 03-09-2025 End: 03-09-2025 Patient encounter procedure 03/09/2025 9:00 AM EDT Appointment [facility] 1 [place] [address] [employer] [facility] Comment on above: [employer] Start: 03-08-2025 End: 03-08-2025 Patient encounter procedure Neurology Comment on above: headache-follow up [employer] Start: 03-07-2025 End: 03-07-2025 Patient encounter procedure [facility] Comment on above: 3 MTH F/U Thyroid [employer] Start: 03-06-2025 Bacteria identified in Urine by Culture Urine Culture [facility] Start: 03-06-2025 End: 03-06-2025 Patient encounter procedure 03/06/2025 12:30 PM EDT Office [facility] [address] [place] [phone] José Luis Haque APRN.COMMUNITY HEALTH PLANNING DIRECTOR [address] [place], [place] [address] Flank pain (Primary Dx); Rectal bleeding [facility] Comment on above: Flank pain (Primary Dx); Rectal bleeding Start: 03-06-2025 [facility] Start: 03-06-2025 Subsequent hospital visit by physician 03/06/2025 9:00 AM EDT Hospital Encounter [facility] 1 [place] [address] [facility] Start: 03-03-2025 End: 03-03-2025 Patient encounter procedure 03/03/2025 11:00 AM EDT Appointment Radiology [address] [place], [place] [address] Chronic migraine with aura without status migrainosus, not intractable [G43.E09] Radiology Comment on above: Chronic migraine with aura without statu s migrainosus, not intractable [G43.E09] Start: 03-02-2025 End: 03-02-2025 Patient encounter procedure 03/02/2025 9:00 AM EDT Appointment [facility] 1 [place] [address] [employer] [facility] Comment on above: [employer] Start: 03-01-2025 End: 03-01-2025 ambulatory 03/01/2025 9:00 AM EDT [facility] Neurology Pain [address] [place] [address] Yevgeniy Cummins DO [address] [place], [place] [id number] Chronic migraine with aura without status migrainosus, not intractable [G43.E09] Neurology Pain Comment on above: Chronic migraine with aura without statu s migrainosus, not intractable [G43.E09] Start: 02-28-2025 End: 02-28-2025 Patient encounter procedure 02/28/2025 1:30 PM EDT Appointment [facility] 1 [place] [address] Gloria Smith, BLASTING CONTRACT MAN.COMMUNITY HEALTH PLANNING DIRECTOR 1 [place] [address] H & P [facility] Medicine Comment on above: H & P Start: 02-28-2025 Subsequent hospital visit by physician 02/28/2025 1:30 PM EDT Hospital Encounter [facility] 1 [place] [address] Gloria Smith, BLASTING CONTRACT MAN.COMMUNITY HEALTH PLANNING DIRECTOR 1 [place] [address] [facility] Start: 02-27-2025 End: 02-27-2025 Patient encounter procedure 02/27/2025 9:30 AM EDT Office Visit OB/Gynecology [address] [place] [address] Darian Ames MD [address] [place] [address] discuss hormone replacement medications OB/Gynecology Comment on above: discuss hormone replacement medications Start: 02-26-2025 BP Controlled (<130/80) BP Controlled (<130/80) [facility] Start: 02-24-2025 End: 02-24-2025 Patient encounter procedure 02/24/2025 9:00 AM EDT Appointment [facility] Medicine 1 [place] [address] Ana Jones, [facility] Assessment [facility] Comment on above: Assessment Start: 02-21-2025 End: 02-21-2025 Patient encounter procedure 02/21/2025 11:00 AM EDT Office Visit Neurology Pain [address] [place] [address] [place] [address] [place] [address] Chronic pain of left knee [M25.562, G89.29] Neurology Pain Comment on above: Chronic pain of left knee [M25.562, G89. 29] Start: 02-20-2025 End: 02-20-2025 ambulatory 02/20/2025 11:30 AM EDT [facility] Neurology Pain [address] [place] [address] Sania Price PA-C [address] [place] [address] Chronic pain of left knee [M25.562, G89.29] Neurology Pain Comment on above: Chronic pain of left knee [M25.562, G89. 29] Start: 02-17-2025 End: 02-17-2025 Patient encounter procedure 02/17/2025 10:00 AM EDT Office Visit Orthopaedics [address] [address] Irene Randolph DO [address] [place] [address] 6 week f/u, left knee Orthopaedics Comment on above: 6 week f/u, left knee Start: 02-14-2025 End: 02-14-2025 Patient encounter procedure 02/14/2025 9:10 AM EDT Appointment Mammogram [address] [place] [address] Encounter for gynecological examination (general) (routine) without abnormal findings [Z01.419]; Encounter for screening mammogram for breast cancer [Z12.31] Mammogram Comment on above: Encounter for gynecological examination (general) (routine) without abnormal findings [Z01.419]; Encounter for screening mammogram for breast cancer [Z12.31] Start: 02-13-2025 End: 02-13-2025 Patient encounter procedure 02/13/2025 11:10 AM EDT Office Visit OB/Gynecology [address] [place] [address] Darian Ames MD [address] [place] [address] ANNUAL OB/Gynecology Comment on above: ANNUAL Start: 02-08-2025 End: 02-08-2025 Patient encounter procedure 02/08/2025 9:00 AM EDT Office Visit Pain Management [address] [phone] Bob Esquivel MD [address] [facility] [place] [address] Intractable chronic migraine without aura and with status migrainosus [G43.711] Pain Management Comment on above: Intractable chronic migraine without aur a and with status migrainosus [G43.711] Start: 01-31-2025 End: 01-31-2025 Patient encounter procedure Gastroenterology [facility] Comment on above: New patient Start: 01-26-2025 End: 04-27-2025 TSH W/REFLEX FT4 TSH W/REFLEX FT4 Lab Routine Hypothyroidism, unspecified type Expected: 01/26/2025 (Approximate), Expires: 04/27/2025 [facility] Work Phone: Comment on above: Expected: 01/26/2025 (Approximate), Expi res: 04/27/2025 Start: 01-23-2025 End: 01-23-2025 Patient encounter procedure 01/23/2025 10:30 AM EDT Office Visit Neurology [address] [place] [address] [place] [address] [address] [place] [address] headache-follow up Neurology Comment on above: headache-follow up Start: 01-20-2025 End: 01-20-2025 Patient encounter procedure 01/20/2025 8:00 AM EDT Appointment [facility] [address] [place] [address] Candis Gamez MD [address] [place] [phone] Davonte Shah pt; colon and EGD [facility] Comment on above: Davonte Shah pt; colon and EGD Start: 01-17-2025 End: 01-17-2025 Patient encounter procedure Mammogram Comment on above: Encounter for screening mammogram for br east cancer [Z12.31] *Needs U/S schedule Comp- VERY VERY LATE Follow up (2017) due for bilat Encounter for screen ing [...] 11:15 AM EDT Procedure [facility] [address] [place], [place] [phone] Ani Rajput, ANDREA.COMMUNITY HEALTH PLANNING DIRECTOR [address] [place] [phone] AUTH GOOD NPCR LMS - Sphenopalatine ganglion block (3 of 3); seafood & shellfish allergy [facility] Comment on above: AUTH GOOD NPCR LMS - Sphenopalatine gang lion block (3 of 3); seafood & shellfish allergy Start: 01-10-2025 End: 01-10-2025 Anesthesia consultation 01/10/2025 11:59 PM EDT Anesthesia Event [facility] [address] [facility] [place] [address] Jose Rodriguez MD [facility] [place] [phone] Neurology Pain Start: 01-10-2025 End: 04-11-2025 TOXICOLOGY SCREEN, ROUTINE URINE TOXICOLOGY SCREEN, ROUTINE URINE Lab Routine Chronic pain of left knee Medication management Expected: 01/10/2025, Expires: 04/11/2025 [facility] Work Phone: Comment on above: Expected: 01/10/2025, Expires: Start: 01-10-2025 End: 01-10-2025 Patient encounter procedure 01/10/2025 10:00 AM EDT Office Visit Neurology Pain [address] [place] [address] Sania Price PA-C [address] [place] [address] Chronic pain of left knee [M25.562, G89.29] Neurology Pain Comment on above: Chronic pain of left knee [M25.562, G89. 29] Start: 01-09-2025 End: 01-09-2025 Follow-up encounter 01/09/2025 4:00 PM EDT [facility] [address] [place] [address] Ani Rajput APRN.COMMUNITY HEALTH PLANNING DIRECTOR [address] [place] [phone] Block follow up VV (between the 2nd and 3rd ones) [facility] Comment on above: Block follow up VV (between the 2nd and 3rd ones) Start: 12-21-2024 End: 12-21-2024 ambulatory [facility] Comment on above: Sphenopalatine ganglion block (3 of 3); seafood & shellfish allergy Sphenopalatine gangl ion block (2 of 3); seafood & shellfish allergy Start: 12-20-2024 End: 12-20-2024 Patient encounter procedure 12/20/2024 2:00 PM EDT Office Visit Neurology Pain [address] [place] [address] [place] [address] [place], [place] [address] Chronic pain of left knee [M25.562, G89.29] Neurology Pain Comment on above: Chronic pain of left knee [M25.562, G89. 29] Start: 12-15-2024 End: 12-15-2024 Patient encounter procedure 12/15/2024 10:30 AM EDT Office Visit [facility] [address] [place], [place] [address] Frida Vargas APRN.COMMUNITY HEALTH PLANNING DIRECTOR [facility] [place] [address] Nerve blocks follow up [facility] Comment on above: Nerve blocks follow up Start: 12-13-2024 End: 12-13-2024 ambulatory 12/13/2024 1:45 PM EDT Procedure [facility] [place] [address] Steve Thomson APRN.COMMUNITY HEALTH PLANNING DIRECTOR [address] [place] [phone] AUTH GOOD NPCR LMS - Sphenopalatine ganglion block (2 of 3); seafood & shellfish allergy [facility] Comment on above: AUTH GOOD NPCR LMS - Sphenopalatine gang lion block (2 of 3); seafood & shellfish allergy Start: 12-12-2024 End: 12-12-2024 ambulatory [facility] Comment on above: Dx: Chronic pain of left knee [M25.562, G89.29 (ICD-10-CM)]; Arthrofibrosis of knee joint, left [M24.662 (ICD-10-CM)] My knee Start: 12-09-2024 End: 12-09-2024 ambulatory 12/09/2024 1:45 PM EDT OT/PT/Speech Visit [facility] [address] [facility] [place], [place] [phone] Ronnie Pettit, PT [address] [place], [place] [phone] Dx: Chronic pain of left knee [M25.562, G89.29 (ICD-10-CM)]; Arthrofibrosis of knee joint, left [M24.662 (ICD-10-CM)] [facility] Comment on above: Dx: Chronic pain of left knee [M25.562, G89.29 (ICD-10-CM)]; Arthrofibrosis of knee joint, left [M24.662 (ICD-10-CM)] Start: 12-07-2024 End: 12-07-2024 ambulatory 12/07/2024 1:30 PM EDT OT/PT/Speech Visit [facility] [address] [facility] [place], [place] [phone] Ronnie Pettit, PT [address] [place], [place] [phone] Dx: Chronic pain of left knee [M25.562, G89.29 (ICD-10-CM)]; Arthrofibrosis of knee joint, left [M24.662 (ICD-10-CM)] [facility] Comment on above: Dx: Chronic pain of left knee [M25.562, G89.29 (ICD-10-CM)]; Arthrofibrosis of knee joint, left [M24.662 (ICD-10-CM)] Start: 12-07-2024 End: 12-07-2024 ambulatory 12/07/2024 11:15 AM EDT OT/PT/Speech Visit [facility] [address] [place] [address] Steph Ontiveros, PT My knee [facility] Comment on above: My knee Start: 12-06-2024 End: 12-06-2024 Patient encounter procedure 12/06/2024 2:20 PM EDT Office Visit [facility] [address] [place] [address] Iveth Hernandez, BLASTING CONTRACT MAN.[facility] [address] [place] [address] est care physical [facility] Comment on above: est care physical Start: 12-05-2024 End: 12-05-2024 ambulatory 12/05/2024 2:15 PM EDT OT/PT/Speech Visit [facility] [address] [place] [address] Ronnie Pettit, PT [address] [place] [address] Dx: Chronic pain of left knee [M25.562, G89.29 (ICD-10-CM)]; Arthrofibrosis of knee joint, left [M24.662 (ICD-10-CM)] [facility] Comment on above: Dx: Chronic pain of left knee [M25.562, G89.29 (ICD-10-CM)]; Arthrofibrosis of knee joint, left [M24.662 (ICD-10-CM)] Start: 12-02-2024 DIABETES SCREEN DIABETES SCREEN [facility] Start: 12-01-2024 End: 12-01-2024 ambulatory 12/01/2024 2:15 PM EDT OT/PT/Speech Visit [facility] [address] [place] [address] Ronnie Pettit, PT [address] [place], [place] [address] Dx: Chronic pain of left knee [M25.562, G89.29 (ICD-10-CM)]; Arthrofibrosis of knee joint, left [M24.662 (ICD-10-CM)] [facility] Comment on above: Dx: Chronic pain of left knee [M25.562, G89.29 (ICD-10-CM)]; Arthrofibrosis of knee joint, left [M24.662 (ICD-10-CM)] Start: 12-01-2024 End: 12-01-2024 Patient encounter procedure 12/01/2024 9:00 AM EDT Office Visit Neurology Pain [address] [place] [address] [place] [address] [place], [place] [address] Chronic pain of left knee [M25.562, G89.29] Neurology Pain Comment on above: Chronic pain of left knee [M25.562, G89. 29] Start: 11-30-2024 End: 11-30-2024 ambulatory 11/30/2024 11:30 AM EDT Procedure [facility] [address] [place] [address] Ani Rajput, ANDREA.COMMUNITY HEALTH PLANNING DIRECTOR [address] [place] [phone] Sphenopalatine ganglion block (3 of 3); seafood & shellfish allergy [facility] Comment on above: Sphenopalatine ganglion block (3 of 3); seafood & shellfish allergy Start: 11-28-2024 End: 11-28-2024 ambulatory 11/28/2024 2:15 PM EDT OT/PT/Speech Visit [facility] [address] [place] [phone] Ronnie Pettit, PT [address] [place] [address] Dx: Chronic pain of left knee [M25.562, G89.29 (ICD-10-CM)]; Arthrofibrosis of knee joint, left [M24.662 (ICD-10-CM)] [facility] Comment on above: Dx: Chronic pain of left knee [M25.562, G89.29 (ICD-10-CM)]; Arthrofibrosis of knee joint, left [M24.662 (ICD-10-CM)] Start: 11-25-2024 End: 11-25-2024 ambulatory 11/25/2024 1:45 PM EDT OT/PT/Speech Visit [facility] [address] [facility] [place], [place] [phone] Ronnie Pettit, PT [address] [place], [place] [phone] Dx: Chronic pain of left knee [M25.562, G89.29 (ICD-10-CM)]; Arthrofibrosis of knee joint, left [M24.662 (ICD-10-CM)] [facility] Comment on above: Dx: Chronic pain of left knee [M25.562, G89.29 (ICD-10-CM)]; Arthrofibrosis of knee joint, left [M24.662 (ICD-10-CM)] Start: 11-23-2024 End: 11-23-2024 ambulatory 11/23/2024 1:30 PM EDT OT/PT/Speech Visit [facility] [address] [facility] [facility] [place] [address] Ronnie Pettit, PT [address] [place], [place] [phone] Dx: Chronic pain of left knee [M25.562, G89.29 (ICD-10-CM)]; Arthrofibrosis of knee joint, left [M24.662 (ICD-10-CM)] [facility] Comment on above: Dx: Chronic pain of left knee [M25.562, G89.29 (ICD-10-CM)]; Arthrofibrosis of knee joint, left [M24.662 (ICD-10-CM)] Start: 11-21-2024 End: 11-21-2024 ambulatory 11/21/2024 2:15 PM EDT OT/PT/Speech Visit [facility] [address] [place] [address] Ronnie Pettit, PT [address] [place], [place] [phone] Dx: Chronic pain of left knee [M25.562, G89.29 (ICD-10-CM)]; Arthrofibrosis of knee joint, left [M24.662 (ICD-10-CM)] [facility] Comment on above: Dx: Chronic pain of left knee [M25.562, G89.29 (ICD-10-CM)]; Arthrofibrosis of knee joint, left [M24.662 (ICD-10-CM)] Start: 11-18-2024 End: 11-18-2024 ambulatory 11/18/2024 1:45 PM EDT OT/PT/Speech Visit [facility] [address] [place], [place] [phone] Ronnie Pettit, PT [address] [place], [place] [phone] Dx: Chronic pain of left knee [M25.562, G89.29 (ICD-10-CM)]; Arthrofibrosis of knee joint, left [M24.662 (ICD-10-CM)] [facility] Comment on above: Dx: Chronic pain of left knee [M25.562, G89.29 (ICD-10-CM)]; Arthrofibrosis of knee joint, left [M24.662 (ICD-10-CM)] Start: 11-17-2024 End: 11-17-2024 ambulatory 11/17/2024 12:15 PM EDT OT/PT/Speech Visit [facility] [address] [place], [place] [phone] Ronnie Pettit, PT [address] [place], [place] [phone] Dx: Chronic pain of left knee [M25.562, G89.29 (ICD-10-CM)]; Arthrofibrosis of knee joint, left [M24.662 (ICD-10-CM)] [facility] Comment on above: Dx: Chronic pain of left knee [M25.562, G89.29 (ICD-10-CM)]; Arthrofibrosis of knee joint, left [M24.662 (ICD-10-CM)] Start: 11-16-2024 End: 11-16-2024 ambulatory 11/16/2024 11:30 AM EDT Procedure [facility] [address] [place] [address] Ani Rajput APRN.COMMUNITY HEALTH PLANNING DIRECTOR [address] [place] [phone] Sphenopalatine ganglion block (2 of 3); seafood & shellfish allergy [facility] Comment on above: Sphenopalatine ganglion block (2 of 3); seafood & shellfish allergy Start: 11-14-2024 End: 11-14-2024 ambulatory 11/14/2024 2:45 PM EDT OT/PT/Speech Visit [facility] [address] [place], [place] [phone] Sonia Collins, DISTANCE EDUCATION DIRECTOR [address] [place], [place] [phone] Dx: Chronic pain of left knee [M25.562, G89.29 (ICD-10-CM)]; Arthrofibrosis of knee joint, left [M24.662 (ICD-10-CM)] [facility] Comment on above: Dx: Chronic pain of left knee [M25.562, G89.29 (ICD-10-CM)]; Arthrofibrosis of knee joint, left [M24.662 (ICD-10-CM)] Start: 11-11-2024 End: 11-11-2024 ambulatory 11/11/2024 1:45 PM EDT OT/PT/Speech Visit [facility] [address] [facility] [place] [address] Ronnie Pettit, PT [address] [place], [place] [phone] Dx: Chronic pain of left knee [M25.562, G89.29 (ICD-10-CM)]; Arthrofibrosis of knee joint, left [M24.662 (ICD-10-CM)] [facility] Comment on above: Dx: Chronic pain of left knee [M25.562, G89.29 (ICD-10-CM)]; Arthrofibrosis of knee joint, left [M24.662 (ICD-10-CM)] Start: 11-11-2024 End: 11-11-2024 ambulatory 11/11/2024 11:30 AM EDT OT/PT/Speech Visit [facility] [address] [facility] [place], [place] [id number] Ronnie Pettit, PT [address] [place], [place] [address] Dx: Chronic pain of left knee [M25.562, G89.29 (ICD-10-CM)]; Arthrofibrosis of knee joint, left [M24.662 (ICD-10-CM)] [facility] Comment on above: Dx: Chronic pain of left knee [M25.562, G89.29 (ICD-10-CM)]; Arthrofibrosis of knee joint, left [M24.662 (ICD-10-CM)] Start: 11-09-2024 End: 11-09-2024 ambulatory 11/09/2024 2:15 PM EDT OT/PT/Speech Visit [facility] [address] [place] [address] Ronnie Pettit, PT [address] [facility] [address] Dx: Chronic pain of left knee [M25.562, G89.29 (ICD-10-CM)]; Arthrofibrosis of knee joint, left [M24.662 (ICD-10-CM)] [facility] Comment on above: Dx: Chronic pain of left knee [M25.562, G89.29 (ICD-10-CM)]; Arthrofibrosis of knee joint, left [M24.662 (ICD-10-CM)] Start: 11-07-2024 End: 11-07-2024 ambulatory 11/07/2024 2:45 PM EDT OT/PT/Speech Visit [facility] [address] [place] [address] KasJose cunninghamh, DISTANCE EDUCATION DIRECTOR [address] [place] [address] Dx: Chronic pain of left knee [M25.562, G89.29 (ICD-10-CM)]; Arthrofibrosis of knee joint, left [M24.662 (ICD-10-CM)] [facility] Comment on above: Dx: Chronic pain of left knee [M25.562, G89.29 (ICD-10-CM)]; Arthrofibrosis of knee joint, left [M24.662 (ICD-10-CM)] Start: 11-04-2024 End: 11-04-2024 ambulatory 11/04/2024 1:45 PM EDT OT/PT/Speech Visit [facility] [address] [place] [address] Ronnie Pettit, PT [address] [facility] [place] [place] [address] Dx: Chronic pain of left knee [M25.562, G89.29 (ICD-10-CM)]; Arthrofibrosis of knee joint, left [M24.662 (ICD-10-CM)] [facility] Comment on above: Dx: Chronic pain of left knee [M25.562, G89.29 (ICD-10-CM)]; Arthrofibrosis of knee joint, left [M24.662 (ICD-10-CM)] Start: 11-02-2024 End: 11-02-2024 ambulatory 11/02/2024 1:30 PM EDT OT/PT/Speech Visit [facility] [address] [place] [address] Ronnie Pettit, PT [address] [place], [place] [id number] Dx: Chronic pain of left knee [M25.562, G89.29 (ICD-10-CM)]; Arthrofibrosis of knee joint, left [M24.662 (ICD-10-CM)] [facility] Comment on above: Dx: Chronic pain of left knee [M25.562, G89.29 (ICD-10-CM)]; Arthrofibrosis of knee joint, left [M24.662 (ICD-10-CM)] Start: 10-31-2024 End: 10-31-2024 ambulatory 10/31/2024 11:30 AM EDT OT/PT/Speech Visit [facility] [address] [place] [address] Ronnie Pettit, PT [address] [place], [place] [id number] Dx: Chronic pain of left knee [M25.562, G89.29 (ICD-10-CM)]; Arthrofibrosis of knee joint, left [M24.662 (ICD-10-CM)] [facility] Comment on above: Dx: Chronic pain of left knee [M25.562, G89.29 (ICD-10-CM)]; Arthrofibrosis of knee joint, left [M24.662 (ICD-10-CM)] Start: 10-28-2024 End: 10-28-2024 Patient encounter procedure 10/28/2024 2:00 PM EDT Office Visit [facility] [address] [place] [address] Iveth Hernandez, BLASTING CONTRACT MAN.COMMUNITY HEALTH PLANNING DIRECTOR [address] [place] [address] est care physical [facility] Comment on above: est care physical Start: 10-27-2024 End: 10-27-2024 ambulatory 10/27/2024 2:15 PM EDT OT/PT/Speech Visit [facility] [address] [place] [phone] Ronnie Pettit, PT [address] [place] [address] Dx: Chronic pain of left knee [M25.562, G89.29 (ICD-10-CM)]; Arthrofibrosis of knee joint, left [M24.662 (ICD-10-CM)] [facility] Comment on above: Dx: [...] shellfish allergy Start: 10-24-2024 End: 10-24-2024 ambulatory [facility] Comment on above: Dx: Chronic pain of left knee [M25.562, G89.29 (ICD-10-CM)]; Arthrofibrosis of knee joint, left [M24.662 (ICD-10-CM)] Start: 10-20-2024 End: 10-20-2024 ambulatory 10/20/2024 2:15 PM EDT OT/PT/Speech Visit [facility] [address] [place], [place] [address] Ronnie Pettit, PT [address] [place] [address] Dx: Chronic pain of left knee [M25.562, G89.29 (ICD-10-CM)]; Arthrofibrosis of knee joint, left [M24.662 (ICD-10-CM)] [facility] Comment on above: Dx: [...] knee joint, left Expected: 10/19/2024, Expires: 01/18/2025 [facility] Comment on above: Expected: 10/19/2024, Expires: Start: 10-19-2024 End: 09-21-2025 C reactive protein [Mass/volume] in Serum or Plasma C-REACTIVE PROTEIN Lab Routine Chronic pain of left knee Arthrofibrosis of knee joint, left Expected: 10/19/2024, Expires: 09/21/2025 [facility] Comment on above: Expected: 10/19/2024, Expires: Start: 10-19-2024 End: 09-21-2025 Creatine kinase [Enzymatic activity/volume] in Serum or Plasma CREATINE KINASE/CK Lab Routine Chronic pain of left knee Arthrofibrosis of knee joint, left Expected: 10/19/2024, Expires: 09/21/2025 [facility] Comment on above: Expected: 10/19/2024, Expires: Start: 10-19-2024 End: 09-21-2025 Cyclic citrullinated peptide IgG Ab [Units/volume] in Serum or Plasma CCP ANTIBODY IGG Lab Routine Chronic pain of left knee Arthrofibrosis of knee joint, left Expected: 10/19/2024, Expires: 09/21/2025 [facility] Comment on above: Expected: 10/19/2024, Expires: Start: 10-19-2024 End: 09-21-2025 Erythrocyte sedimentation rate SEDIMENTATION RATE, WESTERGREN Lab Routine Chronic pain of left knee Arthrofibrosis of knee joint, left Expected: 10/19/2024, Expires: 09/21/2025 [facility] Comment on above: Expected: 10/19/2024, Expires: Start: 10-19-2024 End: 09-21-2025 Nuclear Ab [Presence] in Serum by Immunoassay NIKKI PANEL BLOOD SCRN Lab Routine Chronic pain of left knee Arthrofibrosis of knee joint, left Expected: 10/19/2024, Expires: 09/21/2025 [facility] Comment on above: Expected: 10/19/2024, Expires: Start: 10-19-2024 End: 09-21-2025 Rheumatoid factor [Units/volume] in Serum or Plasma RHEUMATOID FACTOR Lab Routine Chronic pain of left knee Arthrofibrosis of knee joint, left Expected: 10/19/2024, Expires: 09/21/2025 [facility] Work Phone: Comment on above: Expected: 10/19/2024, Expires: Start: 10-19-2024 End: 09-21-2025 Urate [Mass/volume] in Serum or Plasma URIC ACID Lab Routine Chronic pain of left knee Arthrofibrosis of knee joint, left Expected: 10/19/2024, Expires: 09/21/2025 [facility] Comment on above: Expected: 10/19/2024, Expires: Start: 10-18-2024 End: 10-18-2024 ambulatory 10/18/2024 3:00 PM EDT OT/PT/Speech Visit [facility] [address] [place], [place] [id number] Ronnie Pettit, PT [address] [place] [address] Dx: Chronic pain of left knee [M25.562, G89.29 (ICD-10-CM)]; Arthrofibrosis of knee joint, left [M24.662 (ICD-10-CM)] [facility] Comment on above: Dx: Chronic pain of left knee [M25.562, G89.29 (ICD-10-CM)]; Arthrofibrosis of knee joint, left [M24.662 (ICD-10-CM)] Start: 10-17-2024 End: 10-17-2024 Patient encounter procedure 10/17/2024 11:30 AM EDT Office Visit Orthopaedics [address] [place] [phone] Pawel Gonzales PA-C [address] [place] [phone] 1st post op Lt knee manipulation 10/04/24 Orthopaedics Comment on above: 1st post op Lt knee manipulation 10/04/24 Start: 10-14-2024 End: 10-14-2024 ambulatory 10/14/2024 11:15 AM EST OT/PT/Speech Visit [facility] [address] [place], [place] [phone] Ronnie Pettit, PT [address] [place], [place] [phone] Dx: Chronic pain of left knee [M25.562, G89.29 (ICD-10-CM)]; Arthrofibrosis of knee joint, left [M24.662 (ICD-10-CM)] [facility] Comment on above: Dx: Chronic pain of left knee [M25.562, G89.29 (ICD-10-CM)]; Arthrofibrosis of knee joint, left [M24.662 (ICD-10-CM)] Start: 10-12-2024 End: 10-12-2024 ambulatory 10/12/2024 11:30 AM EST OT/PT/Speech Visit [facility] [address] [facility] [place] [address] Ronnie Pettit, PT [address] [place] [address] Dx: Chronic pain of left knee [M25.562, G89.29 (ICD-10-CM)]; Arthrofibrosis of knee joint, left [M24.662 (ICD-10-CM)] [facility] Comment on above: Dx: Chronic pain of left knee [M25.562, G89.29 (ICD-10-CM)]; Arthrofibrosis of knee joint, left [M24.662 (ICD-10-CM)] Start: 10-10-2024 End: 10-10-2024 ambulatory 10/10/2024 5:15 PM EST OT/PT/Speech Visit [facility] [address] [place] [address] Ronnie Pettit, PT [address] [place] [address] Dx: Chronic pain of left knee [M25.562, G89.29 (ICD-10-CM)]; Arthrofibrosis of knee joint, left [M24.662 (ICD-10-CM)] [facility] Comment on above: Dx: Chronic pain of left knee [M25.562, G89.29 (ICD-10-CM)]; Arthrofibrosis of knee joint, left [M24.662 (ICD-10-CM)] Start: 10-05-2024 End: 10-05-2024 ambulatory 10/05/2024 2:15 PM EST OT/PT/Speech Visit [facility] [address] [place] [address] Ronnie Pettit, PT [address] [place] [address] Dx: Chronic pain of left knee [M25.562, G89.29 (ICD-10-CM)]; Acute medial meniscus tear of left knee, initial encounter [S83.242A (ICD-10-CM)] [facility] Comment on above: Dx: Chronic pain of left knee [M25.562, G89.29 (ICD-10-CM)]; Acute medial meniscus tear of left knee, initial encounter [S83.242A (ICD-10-CM)] Start: 10-04-2024 End: 10-04-2024 Admission to same day surgery center 10/04/2024 11:37 AM EST - 10/04/2024 1:12 PM EST Surgery [facility] [address] [place] [address] Irene Randolph DO [address] [place] [address] MANIPULATION KNEE JOINT UNDER GENERAL ANES [facility] Comment on above: MANIPULATION KNEE JOINT [...] physician 10/04/2024 11:37 AM EST Hospital Encounter [facility] [address] [place] [address] Irene Randolph DO [address] [place] [address] Chronic pain of left knee [M25.562, G89.29], Arthrofibrosis of knee joint, left [M24.662] [facility] Comment on above: Chronic pain of left knee [M25.562, G89. 29], Arthrofibrosis of knee joint, left [M24.662] Start: 10-04-2024 End: 10-04-2024 Admission to same day surgery center 10/04/2024 9:45 AM EST - 10/04/2024 11:20 AM EST Surgery [facility] [address] [place] [address] Irene Randolph, DO [address] [facility] [place] [address] ARTHROSCOPY KNEE SYNOVECTOMY MAJOR [facility] Comment on above: ARTHROSCOPY KNEE SYNOVECTOMY [...] physician 10/04/2024 9:45 AM EST Hospital Encounter [facility] Surgery [address] [place] [address] Irene Randolph, DO [address] [place] [address] Chronic pain of left knee [M25.562, G89.29], Arthrofibrosis of knee joint, left [M24.662] [facility] Comment on above: Chronic pain of left knee [M25.562, G89. 29], Arthrofibrosis of knee joint, left [M24.662] Start: 09-26-2024 End: 09-26-2024 ambulatory 09/26/2024 11:00 AM EST Results Only [place] [facility] [address] [place] [address] [place] [facility] Start: 09-25-2024 End: 12-25-2024 CBC panel - Blood by Automated count COMPLETE BLOOD COUNT Lab Routine Intractable chronic migraine without aura and without status migrainosus Expected: 09/25/2024, Expires: 12/25/2024 [facility] Work Phone: Comment on above: Expected: 09/25/2024, Expires: Start: 09-25-2024 End: 12-25-2024 Comprehensive metabolic 2000 panel - Serum or Plasma COMPREHENSIVE METABOLIC PANEL Lab Routine Intractable chronic migraine without aura and without status migrainosus Expected: 09/25/2024, Expires: 12/25/2024 [facility] Comment on above: Expected: 09/25/2024, Expires: Start: 09-22-2024 End: 09-22-2024 Patient encounter procedure 09/22/2024 10:45 AM EST Office Visit [facility] [address] [place] [address] Frida Vargas APRN.[facility] [address] [place] [address] Intractable chronic migraine without aura and without status migrainosus; patient last seen February 2022 [facility] Comment on above: Intractable chronic migraine without aur a and without status migrainosus; patient last seen February 2022 Start: 09-21-2024 End: 09-21-2024 Patient encounter procedure 09/21/2024 9:00 AM EST Office Visit Orthopaedics [address] [address] Irene Randolph DO [address] [place] [address] post op - left knee manip Orthopaedics Comment on above: post op - left knee manip Start: 09-20-2024 End: 09-20-2024 ambulatory 09/20/2024 10:45 AM EST OT/PT/Speech Visit [facility] [address] [facility] [address] Ronnie Pettit, PT [address] [facility] [place] [address] S83.242A (ICD-10-CM) - Tear of medial meniscus of left knee, current, unspecified tear type, initial encounter [facility] Comment on above: S83.242A (ICD-10-CM) - Tear of medial me niscus of left knee, current, unspecified tear type, initial encounter Start: 09-15-2024 End: 09-15-2024 ambulatory 09/15/2024 10:00 AM EST OT/PT/Speech Visit [facility] [address] [facility] [address] Ronnie Pettit, PT [address] [facility] [place] [address] S83.242A (ICD-10-CM) - Tear of medial meniscus of left knee, current, unspecified tear type, initial encounter [facility] Comment on above: S83.242A (ICD-10-CM) - Tear of medial me niscus of left knee, current, unspecified tear type, initial encounter Start: 09-12-2024 End: 09-12-2024 ambulatory 09/12/2024 2:15 PM EST OT/PT/Speech Visit [facility] [address] [facility] [address] Tania Pettitn, PT [address] [facility] [place] [address] S83.242A (ICD-10-CM) - Tear of medial meniscus of left knee, current, unspecified tear type, initial encounter [facility] Comment on above: S83.242A (ICD-10-CM) - Tear of medial me niscus of left knee, current, unspecified tear type, initial encounter Start: 09-07-2024 End: 09-07-2024 ambulatory 09/07/2024 2:15 PM EST OT/PT/Speech Visit [facility] [address] [facility] [address] Ronnie Pettit, PT [address] [place] [address] S83.242A (ICD-10-CM) - Tear of medial meniscus of left knee, current, unspecified tear type, initial encounter [facility] Comment on above: S83.242A (ICD-10-CM) - Tear of medial me niscus of left knee, current, unspecified tear type, initial encounter Start: 09-05-2024 End: 09-05-2024 ambulatory 09/05/2024 2:15 PM EST OT/PT/Speech Visit [facility] [address] [facility] [address] Ronnie Pettit, PT [address] [place] [address] S83.242A (ICD-10-CM) - Tear of medial meniscus of left knee, current, unspecified tear type, initial encounter [facility] Comment on above: S83.242A (ICD-10-CM) - Tear of medial me niscus of left knee, current, unspecified tear type, initial encounter Start: 08-31-2024 End: 08-31-2024 ambulatory 08/31/2024 2:15 PM EST OT/PT/Speech Visit [facility] [address] [facility] [address] Ronnie Pettit, PT [address] [facility] [place] [address] S83.242A (ICD-10-CM) - Tear of medial meniscus of left knee, current, unspecified tear type, initial encounter [facility] Comment on above: S83.242A (ICD-10-CM) - Tear of medial me niscus of left knee, current, unspecified tear type, initial encounter Start: 08-31-2024 End: 08-31-2024 Documentation procedure 08/31/2024 Plan of Care Documentation [facility] [address] [place] [address] [facility] Start: 08-29-2024 End: 08-29-2024 ambulatory 08/29/2024 2:15 PM EST OT/PT/Speech Visit [facility] [address] [place] [address] oRnnie Pettit, PT [address] [place] [address] S83.242A (ICD-10-CM) - Tear of medial meniscus of left knee, current, unspecified tear type, initial encounter [facility] Comment on above: S83.242A (ICD-10-CM) - Tear of medial me niscus of left knee, current, unspecified tear type, initial encounter Start: 08-25-2024 End: 08-25-2024 ambulatory 08/25/2024 9:30 AM EST [facility] [address] [place] [place] [address] [place] [address] [address] [place] [address] chronic migraines Neurology Comment on above: chronic migraines Start: 08-25-2024 End: 08-25-2024 Patient encounter procedure 08/25/2024 8:40 AM EST [facility] [address] [place] [address] Sarika Rao MD [address] [place] [address] Consult to Endocrine Medical Weight Management Endocrinology Comment on above: Consult to Endocrine Medical Weight Stephanie juan Start: 08-24-2024 End: 08-24-2024 ambulatory 08/24/2024 2:15 PM EST OT/PT/Speech Visit [facility] [address] [facility] [address] [facility] [place] [address] Ronnie Pettit, PT [address] [facility] [place] [place] [address] S83.242A (ICD-10-CM) - Tear of medial meniscus of left knee, current, unspecified tear type, initial encounter [facility] Comment on above: S83.242A (ICD-10-CM) - Tear of medial me niscus of left knee, current, unspecified tear type, initial encounter Start: 08-22-2024 End: 08-22-2024 ambulatory 08/22/2024 2:15 PM EST OT/PT/Speech Visit [facility] [address] [facility] [address] [place] [address] Ronnie Pettit, PT [address] [facility] [place] [place] [address] S83.242A (ICD-10-CM) - Tear of medial meniscus of left knee, current, unspecified tear type, initial encounter [facility] Comment on above: S83.242A (ICD-10-CM) - Tear of medial me niscus of left knee, current, unspecified tear type, initial encounter Start: 08-18-2024 End: 08-18-2024 Patient encounter procedure 08/18/2024 10:15 AM EST Office Visit Orthopaedics [address] [place] [address] Irene Randolph DO [address] [place] [address] 2nd post op Orthopaedics Comment on above: 2nd post op Start: 08-17-2024 End: 08-17-2024 ambulatory 08/17/2024 2:15 PM EST OT/PT/Speech Visit [facility] [address] [facility] [address] Ronnie Pettit, PT [address] [place] [address] S83.242A (ICD-10-CM) - Tear of medial meniscus of left knee, current, unspecified tear type, initial encounter [facility] Comment on above: S83.242A (ICD-10-CM) - Tear of medial me niscus of left knee, current, unspecified tear type, initial encounter Start: 08-15-2024 End: 08-15-2024 ambulatory 08/15/2024 4:30 PM EST OT/PT/Speech Visit [facility] [address] [facility] [place] [address] Ronnie Pettit, PT [address] [place] [address] S83.242A (ICD-10-CM) - Tear of medial meniscus of left knee, current, unspecified tear type, initial encounter [facility] Comment on above: S83.242A (ICD-10-CM) - Tear of medial me niscus of left knee, current, unspecified tear type, initial encounter Start: 08-11-2024 End: 08-11-2024 ambulatory 08/11/2024 3:00 PM EST OT/PT/Speech Visit [facility] [address] [facility] [place] [address] Ronnie Pettit, PT [address] [facility] [place] [address] S83.242A (ICD-10-CM) - Tear of medial meniscus of left knee, current, unspecified tear type, initial encounter [facility] Comment on above: S83.242A (ICD-10-CM) - Tear of medial me niscus of left knee, current, unspecified tear type, initial encounter Start: 08-08-2024 End: 08-08-2024 ambulatory 08/08/2024 3:45 PM EST OT/PT/Speech Visit [facility] [address] [facility] [place] [address] Ronnie Pettit, PT [address] [facility] [place] [address] S83.242A (ICD-10-CM) - Tear of medial meniscus of left knee, current, unspecified tear type, initial encounter [facility] Comment on above: S83.242A (ICD-10-CM) - Tear of medial me niscus of left knee, current, unspecified tear type, initial encounter Start: 08-02-2024 End: 08-02-2024 Patient encounter procedure 08/02/2024 10:40 AM EST Office Visit Endocrinology [address] [place] [address] Debbie Pichardo MD [address] [place] [address] Please schedule an appointment with any endocrine provider to be seen in 6-8 weeks if possible - subclinical hypothyroidism Endocrinology Comment on above: Please schedule an appointment with any endocrine provider to be seen in 6-8 weeks if possible - subclinical hypothyroidism Start: 08-02-2024 End: 08-02-2024 ambulatory 08/02/2024 9:00 AM EST OT/PT/Speech Visit [facility] [address] [place] [address] Steph Ontiveros, PT S83.242A (ICD-10-CM) - Tear of medial meniscus of left knee, current, unspecified tear type, initial encounter [facility] Comment on above: S83.242A (ICD-10-CM) - Tear of medial me niscus of left knee, current, unspecified tear type, initial encounter Start: 07-29-2024 End: 07-29-2024 ambulatory 07/29/2024 8:00 AM EST OT/PT/Speech Visit [facility] [address] [facility] [place] [address] Duong Jensen, PT S83.242A (ICD-10-CM) - Tear of medial meniscus of left knee, current, unspecified tear type, initial encounter [facility] Comment on above: S83.242A (ICD-10-CM) - Tear of medial me niscus of left knee, current, unspecified tear type, initial encounter Start: 07-27-2024 End: 07-27-2024 ambulatory 07/27/2024 3:00 PM EST OT/PT/Speech Visit [facility] [address] [facility] [place] [address] Ronnie Pettit, PT [address] [place], [place] [address] S83.242A (ICD-10-CM) - Tear of medial meniscus of left knee, current, unspecified tear type, initial encounter [facility] Comment on above: S83.242A (ICD-10-CM) - Tear of medial me niscus of left knee, current, unspecified tear type, initial encounter Start: 07-21-2024 End: 07-21-2024 Anesthesia consultation 07/21/2024 10:00 AM EST OT/PT/Speech Visit [facility] [address] [facility] [place] [address] Ronnie Pettit, PT [address] [place] [address] Left Knee - Post Op 2 weeks post op Left knee manipulation under anesthesia [facility] Comment on above: Left Knee - Post Op 2 weeks post op Left knee manipulation under anesthesia Start: 07-18-2024 End: 07-18-2024 Follow-up encounter 07/18/2024 2:20 PM EST [facility] Neurology [address] [phone] Uriel Greenwood MD [address] [phone] Follow up Neurology Comment on above: Follow up Start: 07-14-2024 End: 07-14-2024 Patient encounter procedure 07/14/2024 3:00 PM EST Office Visit Orthopaedics [address] [place] [address] Irene Randolph DO [address] [place] [address] 1st post op Lt knee synovectomy 06/30/24 Orthopaedics Comment on above: 1st post op Lt knee synovectomy 06/30/24 Start: 06-30-2024 End: 06-30-2024 Admission to same day surgery center 06/30/2024 8:45 AM EST - 06/30/2024 10:15 AM EST Surgery [facility]ulatory [facility] [address] [place] [address] Irene Randolph DO [address] [place], [place] [address] ARTHROSCOPY KNEE SYNOVECTOMY MAJOR Ambulatory Surgery Comment on above: ARTHROSCOPY KNEE SYNOVECTOMY MAJOR Start: 06-30-2024 End: 06-30-2024 Anesthesia consultation 06/30/2024 8:45 AM EST Anesthesia Event Ambulatory Surgery [address] [place] [address] Kody Lowe, IRENE [address] [place] [address] Ambulatory Surgery Start: 06-30-2024 End: 06-30-2024 Arthroscopy knee synovectomy 2/>compartments ARTHROSCOPY KNEE SYNOVECTOMY MAJOR Fibrosis of left knee joint 06/30/2024 8:45 AM EST [facility] Start: 06-30-2024 Subsequent hospital visit by physician 06/30/2024 8:45 AM EST Hospital Encounter Ambulatory Surgery [address] [place] [address] Irene Randolph DO [address] [place] [address] Fibrosis of left knee joint [M24.662] Ambulatory Surgery Comment on above: Fibrosis of left knee joint [M24.662] Start: 06-21-2024 End: 06-21-2024 ambulatory 06/21/2024 2:15 PM EST OT/PT/Speech Visit [facility] [address] [place] [address] Ronnie Pettit, PT [address] [place], [place] [id number] M25.562,G89.29 (ICD-10-CM) - Chronic pain of left knee [facility] Comment on above: M25.562,G89.29 (ICD-10-CM) - Chronic abby n of left knee Start: 06-19-2024 Subsequent hospital visit by physician 06/19/2024 Hospital Encounter HOSP MAIN M060 [address] [id number] Gilmar Hunter MD [address] [place] [address] Unspecified convulsions [R56.9] [facility] Comment on above: Unspecified convulsions [R56.9] Start: 06-19-2024 End: 06-19-2024 Patient encounter procedure 06/19/2024 10:00 AM EST Office Visit Neurology [address] [place] [address] ADMIT Neurology Comment on above: ADMIT Start: 06-17-2024 End: 06-17-2024 ambulatory 06/17/2024 2:30 PM EST OT/PT/Speech Visit [facility] [address] [place], [place] [id number] Ronnie Pettit, PT [address] [place], [place] [id number] M25.562,G89.29 (ICD-10-CM) - Chronic pain of left knee [facility] Comment on above: M25.562,G89.29 (ICD-10-CM) - Chronic abby n of left knee Start: 06-16-2024 End: 06-16-2024 Patient encounter procedure 06/16/2024 10:00 AM EST Office Visit Orthopaedics [address] [place] [facility] [place] [address] Irene Randolph, DO [address] [facility] [facility] [facility] [place] [address] Post op Orthopaedics Comment on above: Post op Start: 06-14-2024 End: 06-14-2024 ambulatory 06/14/2024 2:15 PM EST OT/PT/Speech Visit [facility] [address] [facility] [place] [address] Ronnie Pettit, PT [address] [facility] [place] [address] M25.562,G89.29 (ICD-10-CM) - Chronic pain of left knee [facility] Comment on above: M25.562,G89.29 (ICD-10-CM) - Chronic abby n of left knee Start: 06-10-2024 End: 06-10-2024 ambulatory 06/10/2024 2:00 PM EDT OT/PT/Speech Visit [facility] [address] [facility] [address] Sonia Collins, DISTANCE EDUCATION DIRECTOR [address] [facility] [place] [address] M25.562,G89.29 (ICD-10-CM) - Chronic pain of left knee [facility] Comment on above: M25.562,G89.29 (ICD-10-CM) - Chronic abby n of left knee Start: 06-07-2024 End: 06-07-2024 ambulatory 06/07/2024 2:15 PM EDT OT/PT/Speech Visit [facility] [address] [place] [address] Ronnie Pettit, PT [address] [place] [address] M25.562,G89.29 (ICD-10-CM) - Chronic pain of left knee [facility] Comment on above: M25.562,G89.29 (ICD-10-CM) - Chronic abby n of left knee Start: 06-03-2024 End: 06-03-2024 ambulatory 06/03/2024 1:00 PM EDT OT/PT/Speech Visit [facility] [address] [facility] [place] [address] Ronnie Pettit, PT [address] [place] [address] M25.562,G89.29 (ICD-10-CM) - Chronic pain of left knee [facility] Comment on above: M25.562,G89.29 (ICD-10-CM) - Chronic abby n of left knee Start: 05-31-2024 End: 05-31-2024 ambulatory [facility] Comment on above: M25.562,G89.29 (ICD-10-CM) - Chronic abby n of left knee Start: 05-30-2024 End: 08-29-2024 lamoTRIgine [Mass/volume] in Serum or Plasma LAMOTRIGINE Lab Routine Seizure (HCC) Expected: 05/30/2024, Expires: 08/29/2024 [facility] Work Phone: Comment on above: Expected: 05/30/2024, Expires: Start: 05-30-2024 End: 08-29-2024 Zonisamide [Mass/volume] in Serum or Plasma ZONISAMIDE Lab Routine Seizure (HCC) Expected: 05/30/2024, Expires: 08/29/2024 [facility] Comment on above: Expected: 05/30/2024, Expires: Start: 05-30-2024 End: 05-30-2024 Follow-up encounter 05/30/2024 10:30 AM EDT [facility] Neurology [address] [place] [address] Sierra Dunham PA-C [address] [place] [address] follow up Neurology Comment on above: follow up Start: 05-24-2024 End: 05-24-2024 ambulatory 05/24/2024 2:00 PM EDT OT/PT/Speech Visit [facility] [address] [facility] [address] Sonia Collins, ISELA [address] [facility] [place] [address] M25.562,G89.29 (ICD-10-CM) - Chronic pain of left knee [facility] Comment on above: M25.562,G89.29 (ICD-10-CM) - Chronic abby n of left knee Start: 05-19-2024 End: 05-19-2024 Patient encounter procedure 05/19/2024 9:15 AM EDT Office Visit Orthopaedics [address] [place] [address] Irene Randolph DO [address] [place] [address] 1st post op Lt medial meniscal repair 04/07/24 Orthopaedics Comment on above: 1st post op Lt medial meniscal repair Start: 2024 Pneumococcal Vaccine: 50+ (1 of 1 - PCV) Pneumococcal Vaccine: 50+ (1 of 1 - PCV) [facility] Start: 2024 Shingrix Vaccine (1 of 2) Shingrix Vaccine (1 of 2) [facility] Start: 2024 End: 2024 ambulatory 2024 10:00 AM EDT OT/PT/Speech Visit [facility] [address] [place] [address] Ronnie Pettit, PT [address] [place] [address] Chronic pain of left knee [M25.562, G89.29]; Acute medial meniscus tear of left knee, initial encounter [S83.242A] [facility] Comment on above: Chronic pain of left knee [M25.562, G89. 29]; Acute medial meniscus tear of left knee, initial encounter [S83.242A] Start: 04-28-2024 BP Controlled (<130/80) BP Controlled (<130/80) [facility] Start: 04-21-2024 End: 04-21-2024 Patient encounter procedure 04/21/2024 10:45 AM EDT Office Visit Orthopaedics [address] [place] [address] Irene Randolph DO [address] [place], [place] [id number] 1st post op Lt medial meniscal repair 04/07/24 Orthopaedics Comment on above: 1st post op Lt medial meniscal repair Start: 04-10-2024 Covid-19 Vaccine ( season) Covid-19 Vaccine ( season) [facility] Start: 04-10-2024 Covid-19 Vaccine ( season) Covid-19 Vaccine ( season) [facility] Start: 04-10-2024 Influenza vaccination [facility] Start: 04-07-2024 End: 04-07-2024 Admission to same day surgery center 04/07/2024 7:30 AM EDT - 04/07/2024 9:05 AM EDT Surgery Ambulatory Surgery [address] [place] [address] Irene Randolph DO [address] [place], [place] [address] ARTHROSCOPY, KNEE MENISCUS REPAIR MEDIAL OR LATERAL Ambulatory Surgery Comment on above: ARTHROSCOPY, KNEE MENISCUS REPAIR MEDIAL OR LATERAL Start: 04-07-2024 End: 04-07-2024 Arthroscopy knee w/meniscus rpr medial/lateral ARTHROSCOPY, KNEE MENISCUS REPAIR MEDIAL OR LATERAL Tear of medial meniscus of left knee, current, unspecified tear type, initial encounter 04/07/2024 7:30 AM EDT [facility] Start: 04-07-2024 Subsequent hospital visit by physician 04/07/2024 7:30 AM EDT Hospital Encounter Ambulatory Surgery [address] [place] [address] Irene Randolph DO [address] [place], [place] [id number] [phone] Tear of medial meniscus of left knee, current, unspecified tear type, initial encounter [S83.242A] Ambulatory Surgery Comment on above: Tear of medial meniscus of left knee, cu rrent, unspecified tear type, initial encounter [S83.242A] Start: 04-04-2024 DIABETES SCREEN DIABETES SCREEN [facility] Start: 03-30-2024 End: 03-30-2024 Patient encounter procedure 03/30/2024 11:00 AM EDT Office Visit Orthopaedics [address] [address] Irene Randolph DO [address] [place] [address] Left knee pain Orthopaedics Comment on above: Left knee pain Start: 03-17-2024 End: 03-17-2024 Patient encounter procedure 03/17/2024 10:15 AM EDT Office Visit Orthopaedics [address] [place] [address] Irene Randolph DO [address] [place] [address] Left knee pain Orthopaedics Comment on above: Left knee pain Start: 02-04-2024 End: 02-04-2024 Patient encounter procedure 02/04/2024 9:00 AM EDT Office Visit Orthopaedic Surgery [facility] [address] [place] [address] Seven Hernandez MD [address] [place] [address] NEW CONSULT FOR LT KNEE IN PAIN Orthopaedic Surgery [facility] Comment on above: NEW CONSULT FOR LT KNEE IN PAIN Start: 12-27-2023 BP CONTROLLED (<130/80) BP CONTROLLED (<130/80) [facility] Start: 10-20-2023 Procedure [facility] Start: 10-15-2023 Patient referral [facility] Work Phone: Start: 09-19-2023 [facility] Start: 05-06-2023 BP CONTROLLED (<130/80) BP CONTROLLED (<130/80) [facility] Start: 04-10-2023 Covid-19 Vaccine ( season) Covid-19 Vaccine () [facility] Start: 04-10-2023 Influenza vaccination [facility] Start: 01-07-2023 BP CONTROLLED (<130/80) BP CONTROLLED (<130/80) [facility] Start: 11-28-2022 End: 01-28-2023 lamoTRIgine [Mass/volume] in Serum or Plasma LAMOTRIGINE Lab Routine Seizure (HCC) Expected: 11/28/2022, Expires: 01/28/2023 [facility] Work Phone: Comment on above: Expected: 11/28/2022, Expires: Start: 11-28-2022 End: 01-28-2023 Zonisamide [Mass/volume] in Serum or Plasma ZONISAMIDE Lab Routine Seizure (HCC) Expected: 11/28/2022, Expires: 01/28/2023 [facility] Work Phone: Comment on above: Expected: 11/28/2022, Expires: 3 Start: 04-10-2022 Influenza vaccination [facility] Start: 04-04-2022 ANNUAL PCP TEAM CHRONIC DISEASE VISIT ANNUAL PCP TEAM CHRONIC DISEASE VISIT [facility] Start: 01-07-2022 End: 01-21-2022 Influenza virus A and B RNA and SARS-CoV-2 (COVID-19) N gene panel - Respiratory specimen by ANU with probe detection COVID WITH FLUA+B, ROUTINE Microbiology Routine Viral illness Exposure to COVID-19 virus Expected: 01/07/2022, Expires: 01/21/2022 [facility] Work Phone: Comment on above: Expected: 01/07/2022, Expires: 2 Start: 01-04-2022 End: 03-06-2022 T4 FREE/FREE THYROX T4 FREE/FREE THYROX Lab Routine Hypothyroidism, acquired Expected: 01/04/2022, Expires: 03/06/2022 [facility] Work Phone: Comment on above: Expected: 01/04/2022, Expires: 2 Start: 01-04-2022 End: 03-06-2022 Thyrotropin [Units/volume] in Serum or Plasma TSH BLD Lab Routine Hypothyroidism, acquired Expected: 01/04/2022, Expires: 03/06/2022 [facility] Work Phone: Comment on above: Expected: 01/04/2022, Expires: 2 Start: 12-15-2021 Plain x-ray of wrist Wrist min 3 Views [facility] Work Phone: Start: 05-26-2021 COVID-19 VACCINE (3 - Booster for Pfizer series) COVID-19 VACCINE (3 - Booster for Pfizer series) [facility] Start: 02-18-2021 COVID-19 VACCINE (3 - Booster for Pfizer series) COVID-19 VACCINE (3 - Booster for Pfizer series) [facility] Start: 02-18-2021 COVID-19 VACCINE (3 - Pfizer series) COVID-19 VACCINE (3 - Pfizer series) [facility] Start: 2019 COLOGUARD (FIT-DNA) COLOGUARD (FIT-DNA) [facility] Start: 2019 Colonoscopy COLONOSCOPY [facility] Start: 2019 COLORECTAL CANCER SCREENING COLORECTAL CANCER SCREENING [facility] Start: [address] COLONOGRAPHY [facility] Start: 2019 FECAL OCCULT BLOOD FECAL OCCULT BLOOD [facility] Start: 2019 Lipid 1996 panel - Serum or Plasma Lipid Screening [facility] Start: 2019 Lipid panel Lipid Screening [facility] Start: 2019 LIPID SCREEN LIPID SCREEN [facility] Start: 2019 Screening for malignant neoplasm of colon [facility] Start: 2019 SIGMOIDOSCOPY SIGMOIDOSCOPY [facility] Start: 03-08-2019 End: 03-08-2019 Appointment Appointment [facility] Work Phone: Start: 03-08-2019 End: 03-08-2019 Mri upper extrem other than jt w/o & w/contras MRI right hand with and without contrast [facility] Work Phone: Start: 03-08-2019 End: 03-08-2019 Radex hand minimum 3 views XR HAND 3+ VWS-RT [facility] Work Phone: Start: 12-25-2018 Mammography [facility] Start: 12-25-2018 Screening for malignant neoplasm of breast Mammogram Screening [facility] Start: 07-10-2017 End: 07-10-2017 Appointment Appointment [facility] Work Phone: Start: 06-11-2017 End: 06-11-2017 Appointment Appointment [facility] Work Phone: Start: 1993 Hepatitis B Vaccine (1 of 3 - 19+ 3-dose series) Hepatitis B Vaccine (1 of 3 - 19+ 3-dose series) [facility] Start: 1993 ONE PNEUMOVAX PRIOR TO AGE 65 ONE PNEUMOVAX PRIOR TO AGE 65 [facility] Start: 1992 Anxiety Screening Anxiety Screening [facility] Start: 1992 BP CONTROLLED (<130/80) BP CONTROLLED (<130/80) [facility] Start: 1992 HEPATITIS C SCREENING HEPATITIS C SCREENING [facility] Start: 1992 Hepatitis C screening Hepatitis C Screening [facility] Start: 1992 SPIROMETRY SPIROMETRY [facility] Start: 1980 PNEUMOCOCCAL (1 - PCV) PNEUMOCOCCAL (1 - PCV) [facility] Start: 1980 Pneumococcal vaccination Pneumococcal Vaccine (1 - PCV) [facility] Start: 1974 HEPATITIS B (1 of 3 - 3-dose series) HEPATITIS B (1 of 3 - 3-dose series) [facility] Start: 1974 Hepatitis B Vaccine (1 of 3 - 3-dose series) Hepatitis B Vaccine (1 of 3 - 3-dose series) [facility] End: 01-05-2026 DBT Breast - bilateral diagnostic for implant MARNIE DIAG W ELIO BILATERAL Radiology Routine Encounter for screening mammogram for breast cancer Abnormal mammogram of right breast 1 Occurrences starting 12/06/2024 until 01/05/2026 [facility] Comment on above: 1 Occurrences starting 12/06/2024 until 01/05/2026 End: 01-05-2026 DBT Breast - bilateral screening MARNIE SCREENING W ELIO Radiology Routine Encounter for screening mammogram for breast cancer 1 Occurrences starting 12/06/2024 until 01/05/2026 [facility] Work Phone: Comment on above: 1 Occurrences starting 12/06/2024 until 01/05/2026 End: 03-15-2026 DBT Breast - bilateral screening MARNIE SCREENING W ELIO Radiology Routine Encounter for gynecological examination (general) (routine) without abnormal findings Encounter for screening mammogram for breast cancer 1 Occurrences starting 02/13/2025 until 03/15/2026 [facility] Work Phone: Comment on above: 1 Occurrences starting 02/13/2025 until 03/15/2026 End: 12-07-2025 EGD DIAGNOSTIC EGD DIAGNOSTIC Endoscopy Routine Coughing up blood Dysphagia, unspecified type 1 Occurrences starting 12/07/2024 until 12/07/2025 [facility] Comment on above: 1 Occurrences starting 12/07/2024 until 12/07/2025 EGD DIAGNOSTIC EGD DIAGNOSTIC E ndoscopy Routine Coughing up blood Dysphagia, unspecified type 01/20/2025 8:40 AM EDT [facility] End: 05-31-2025 EPIL EEG LEAD PLACEMENT EPIL EEG LEAD PLACEMENT NEUROLOGY Routine Seizure (HCC) 1 Occurrences starting 05/31/2024 until 05/31/2025 [facility] Comment on above: 1 Occurrences starting 05/31/2024 until 05/31/2025 End: 11-29-2023 EPIL EEG LONG EPIL EEG LONG NEUROLOGY Routine Seizure (HCC) 1 Occurrences starting 11/28/2022 until 11/29/2023 [facility] Work Phone: Comment on above: 1 Occurrences starting 11/28/2022 until 11/29/2023 EPIL VEEG ADMIT TO EMU/PMU EPIL VEEG ADMIT TO EMU/PMU NEUROLOGY Routine Seizure (HCC) Ordered: 05/31/2024 [facility] Comment on above: Ordered: 05/31/2024 End: 12-07-2025 Flexible sigmoidoscopy study COLONOSCOPY DIAGNOSTIC Endoscopy Routine Left lower quadrant abdominal pain BRBPR (bright red blood per rectum) 1 Occurrences starting 12/07/2024 until 12/07/2025 [facility] Work Phone: Comment on above: 1 Occurrences starting 12/07/2024 until 12/07/2025 Flexible sigmoidosco py study COLONOSCOPY DIAGNOSTIC Endoscopy Routine Left lower quadrant abdominal pain BRBPR (bright red blood per rectum) 01/20/2025 8:40 AM EDT [facility] Work Phone: Injection anes agent sphenopalatine ganglion SPHENOPALATINE GANGLION BLOCK Procedures Routine Intractable chronic migraine without aura and with status migrainosus Ordered: 10/26/2024 [facility] Work Phone: Comment on above: Ordered: 10/26/2024 Lithotripsy xtrcorp shock wave EXTRACORPOREAL SHOCKWAVE LITHOTRIPSY UNILATERAL Ureteral calculi MR OR End: 03-19-2026 MR Brain WO contrast MRI BRAIN WO IVCON Radiology Routine Chronic migraine with aura without status migrainosus, not intractable 1 Occurrences starting 02/17/2025 until 03/19/2026 [facility] Work Phone: Comment on above: 1 Occurrences starting 02/17/2025 until 03/19/2026 [facility] End: 04-08-2024 MRI ANKLE WO IVCON RIGHT MRI ANKLE WO IVCON RIGHT Radiology Routine Acute right ankle pain 1 Occurrences starting 03/10/2023 until 04/08/2024 [facility] Work Phone: Comment on above: 1 Occurrences starting 03/10/2023 until 04/08/2024 End: 04-30-2026 NM Biliary ducts and Gallbladder Views for patency of biliary structures and ejection fraction W sincalide and W radionuclide IV NM HEPATOBILIARY W EF AND/OR RX Radiology Routine Calculus of gallbladder without cholecystitis without obstruction Nausea Generalized abdominal pain 1 Occurrences starting 03/31/2025 until 04/30/2026 [facility] Work Phone: Comment on above: 1 Occurrences starting 03/31/2025 until 04/30/2026 Patient Education [facility] Work Phone: Patient referral [facility] Work Phone: End: 04-21-2026 RF videography Hypopharynx and Esophagus Views W liquid and paste contrast PO during swallowing XR MODIFIED BARIUM SWALLOW W SPEECH THERAPY Radiology Routine Other dysphagia 1 Occurrences starting 03/21/2025 until 04/21/2026 [facility] Work Phone: Comment on above: 1 Occurrences starting 03/21/2025 until 04/21/2026 SARS-CoV-2 (COVID-19 ) RNA [Presence] in Respiratory specimen by ANU with probe detection COVID NAAT, UPPER RESPIRATORY, ROUTINE Microbiology Routine Taste sense altered Chills 02/27/2024 3:31 PM EDT [facility] Work Phone: Tissue Pathology biopsy report [facility] Work Phone: Comment on above: Release Upon Ordering for 1 Occurrences starting 01/20/2025, 1 completed Urine culture [facility] End: 04-20-2026 US Abdomen US ABDOMEN COMPLETE Radiology Routine Generalized abdominal pain Rectal bleeding Irritable bowel syndrome with diarrhea Chronic superficial gastritis without bleeding 1 Occurrences starting 03/21/2025 until 04/20/2026 [facility] Comment on above: 1 Occurrences starting 03/21/2025 until 04/20/2026 End: 03-27-2025 US Abdomen [facility] Work Phone: Comment on above: 1 Occurrences starting 03/27/2025 until 03/27/2025 End: 01-05-2026 US Breast - right limited US BREAST LTD RIGHT Radiology Routine Encounter for screening mammogram for breast cancer Abnormal mammogram of right breast 1 Occurrences starting 12/06/2024 until 01/05/2026 [facility] Comment on above: 1 Occurrences starting 12/06/2024 until 01/05/2026 End: 05-21-2025 US Lower extremity vein - left US DVT LOWER LEFT Radiology STAT Pain of left calf 1 Occurrences starting 04/21/2024 until 05/21/2025 [facility] Work Phone: Comment on above: 1 Occurrences starting 04/21/2024 until 05/21/2025 XR Abdomen Supine an d Upright XR ABDOMEN 2V ROUTINE SUPINE W UPRIGHT/DECUB/CTL Radiology Routine Right ureteral calculus 04/11/2025 9:44 AM EDT [facility] Work Phone: End: 02-09-2025 XR Knee - left 4 Views XR KNEE GENERAL 4V AP BOTH/PA BOTH/LAT/MERC LEFT Radiology Routine Left knee pain, unspecified chronicity 1 Occurrences starting 01/11/2024 until 02/09/2025 [facility] Work Phone: Comment on above: 1 Occurrences starting 01/11/2024 until 02/09/2025 XR Knee - left 4 Views XR KNEE G ENERAL 4V AP BOTH/PA BOTH/LAT/MERC LEFT Radiology Routine Left knee pain, unspecified chronicity 01/12/2025 10:37 AM EDT [facility] Work Phone: End: 02-09-2026 XR Knee - left 4 Views XR KNEE GENERAL 4V AP BOTH/PA BOTH/LAT/MERC LEFT Radiology Routine Left knee pain, unspecified chronicity 1 Occurrences starting 01/11/2025 until 02/09/2026 [facility] Work Phone: Comment on above: 1 Occurrences starting 01/11/2025 until 02/09/2026 XR Pelvis and Hip - left AP and Lateral frog XR HIP GENERAL 3V PELV/AP/LAT LEFT Radiology Routine Left leg pain 02/10/2024 9:53 AM EDT [facility] Work Phone: End: 03-12-2024 XR TIBIA FIBULA 2V AP/LAT RIGHT XR TIBIA FIBULA 2V AP/LAT RIGHT Radiology Routine Sprain of right ankle, unspecified ligament, initial encounter 1 Occurrences starting 02/11/2023 until 03/12/2024 [facility] Work Phone: Comment on above: 1 Occurrences starting 02/11/2023 until 03/12/2024 [facility] Immunizations Immunization Date Immunization Notes Care Provider [facility] 12-24-2020 COVID-19 vaccine, ag e 12+ yr (PFIZER-BIONTECH - PURPLE TOP) Ward Go Jr., MD Work Phone: [facility] 12-03-2020 COVID-19 vaccine, ag e 12+ yr (PFIZER-BIONTECH - PURPLE TOP) Ward Go Jr., MD Work Phone: [facility] 11-15-2015 tetanus toxoid, redu bin diphtheria toxoid, and acellular pertussis vaccine, adsorbed Ward Go Jr., MD Work Phone: [facility] Work Phone: 07-26-2006 diphtheria and tetan us toxoids, adsorbed for pediatric use Ward Go Jr., MD Work Phone: [facility] Work Phone: Payers Date Payer Category Payer Self-pay [id number] 2023 Private Health Insurance [id number] 2006 Unknown SELF PAY INSURANCE [id number] 2006 Unknown [id number] 2006 Medicaid [employer] [facility] [id number] 2006-Present [phone] [address] [place] [address] Medicaid [id number] 2006 Medicaid [id number] 1974 Unknown [id number] 1974 Unknown [id number] Unknown [id number] Social History Date Type Detail Facility Start: 07-12-2019 End: 03-30-2025 Tobacco smoking status TXIS Never smoked tobacco [facility] Start: 11-11-2021 End: 02-27-2025 Alcohol intake Current drinker of alcohol (finding) [facility] Start: 04-02-2021 History SDOH Alcohol Frequency 5 [facility] Start: 04-02-2021 History SDOH Alcohol Std Drinks 1 [facility] [facility] Start: 11-29-2010 History SDOH Alcohol Comment rare [facility] Start: 04-02-2021 History SDOH Social Connections Membership 2 [facility] Start: 04-02-2021 History SDOH Social Connections Living 98 [facility] Start: 04-02-2021 History SDOH Physica l Activity DPW 7 [facility] Start: 04-02-2021 History SDOH Physica l Activity MPS 15 [facility] Start: 04-02-2021 Education 12 [facility] Start: 1975 Sex Assigned At Female C [facility] Start: 11-01-2021 End: 12-25-2022 Exposure to SARS-CoV-2 (event) Not sure [facility] Start: 04-11-2021 End: 09-19-2023 Tobacco smoking status NHIS Unknown if ever smoked [facility] Start: 09-28-2020 None [facility] Start: 09-28-2020 With Family [facility] Start: 12-16-2020 Non-smoker [facility] Start: 12-28-2021 End: 01-07-2022 Exposure to SARS-CoV-2 (event) Yes [facility] Work Phone: Start: 04-02-2021 End: 12-25-2022 History of Social function [facility] Start: 04-02-2021 End: 12-25-2022 Social connection and isolation panel [facility] Do you belong to any clubs or organizations such as alevism groups, shoutrs, [employer] or athletic groups, or school groups? No [facility] Are you now , , , , never or living with a partner? Refused [facility] How often to you hav e a drink containing alcohol? 4 or more times a week [facility] How many standard drinks containing alcohol do you have on a typical day? 1 or 2 [facility] How often do you hav e 6 or more drinks on 1 occasion? Never [facility] Start: 07-11-2012 How hard is it for y ou to pay for the very basics like food, housing, medical care, and heating Not hard at all [facility] Do you feel stress - tense, restless, nervous, or anxious, or unable to sleep at night because your mind is troubled all the time - these days [OSQ] Very much [facility] (I/We) worried whechencho er (my/our) food would run out before (I/we) got money to buy more. Never true [facility] Start: 06-17-2021 Gender identity Identifies as female gender (finding) [facility] Start: 08-02-2024 End: 03-30-2025 Tobacco use and exposure Smokeless tobacco non-user [facility] Start: 03-21-2025 End: 04-11-2025 Alcoholic beverage intake Ex-drinker (finding) [facility] Start: 03-30-2025 Tobacco Comment ARAndrea Sammykatherine [facility] NEGATED: Highlighted rowStart: 03-08-2019 End: 03-08-2019 Alcohol use Alcohol use [facility] Work Phone: NEGATED: Highlighted rowStart: 03-08-2019 End: 03-08-2019 Details of drug misuse behavior Details of drug misuse behavior [facility] Work Phone: NEGATED: Highlighted rowStart: 03-08-2019 End: 03-08-2019 Employment detail Employment detail [facility] Work Phone: NEGATED: Highlighted rowStart: 03-08-2019 End: 03-08-2019 How many days of moderate to strenuous exercise, like a brisk walk, did you do in the last 7 days? How many days of moderate to strenuous exercise, like a brisk walk, did you do in the last 7 days? [facility] Work Phone: NEGATED: Highlighted rowStart: 03-08-2019 End: 03-08-2019 Assertion Never smoker [facility] Work Phone: NEGATED: Highlighted row [facility] NEGATED: Highlighted rowStart: NINF History of tobacco use Passive smoker [facility] Medical Equipment Procedure Code Equipment Code Equipment Origin al Text Equipment Identifier Dates Pine Juggerkno t 1 Short Suture Soft Rigid Drill Bit 1.45mm [id number] Start: 07-25-2021 Unknown Unknown 05/28/18 Unknown Unknown FDA Start: 05-28-2018 FDA Start: 05-28-2018 FDA Start: 05-28-2018 FDA Start: 05-28-2018 Unknown Unknown 05/28/18 Unknown Unknown FDA Start: 05-28-2018 FDA Start: 05-28-2018 FDA Start: 05-28-2018 FDA Start: 05-28-2018 Device Fast-Fix 360d Reverse Curve Fixation Meniscal Repair System - [id number] Start: 04-07-2024 Device Fast-Fix 360d Reverse Curve Fixation Meniscal Repair System - [id number] Start: 04-07-2024 Device Fast-Fix 360d Reverse Curve Fixation Meniscal Repair System - [id number] Start: 04-07-2024 Set 6fr .038in 2 Pigtail Curve Filiform Black Stainless Steel Vinyl - [id number] Start: 03-07-2025 Goals Date Patient Goal Desired Activity /State Personal health goal Functional Status Date Assessment Result Facility 03-30-2025 Total score [AUDIT-C] 0 03/30/20 1:00 PM EDT Mali Fam MA [facility] 03-21-2025 Total score [AUDIT-C] 0 03/21/20 8:53 AM EDT Tania Day MA [facility] 03-08-2025 Are you deaf, or do you have serious difficulty hearing No 03/08/2025 1:52 PM Fabi Ramos RN [facility] 03-08-2025 Are you blind, or do you have serious difficulty seeing, even when wearing glasses No 03/08/2025 1:52 PM Fabi Ramos RN [facility] 03-08-2025 Do you have serious difficulty walking or climbing stairs No 03/08/2025 1:52 PM Fabi Ramos, CANDELARIA [facility] 03-08-2025 Do you have difficul ty dressing or bathing No 03/08/2025 1:52 PM Fabi Ramos, CANDELARIA [facility] 03-08-2025 Because of a physica l, mental, or emotional condition, do you have difficulty doing errands alone such as visiting a physician's office or shopping No 03/08/2025 1:52 PM Fabi Ramos, CANDELARIA No [facility] 06-22-2024 Are you deaf, or do you have serious difficulty hearing No 06/22/2024 2:04 PM Deja Taylor RN No [facility] 06-22-2024 Are you blind, or do you have serious difficulty seeing, even when wearing glasses No 06/22/2024 2:04 PM Deja Taylor RN No [facility] 06-22-2024 Do you have serious difficulty walking or climbing stairs No 06/22/2024 2:04 PM Deja Taylor, RN No [facility] 06-22-2024 Do you have difficul ty dressing or bathing No 06/22/2024 2:04 PM Deja Taylor, CANDELARIA No [facility] 06-22-2024 Because of a physica l, mental, or emotional condition, do you have difficulty doing errands alone such as visiting a physician's office or shopping No 06/22/2024 2:04 PM Deja Taylor, RN No [facility] 02-28-2015 Are you deaf, or do you have serious difficulty hearing No 02/28/2015 10:05 AM Rae Greenwood Ma No [facility] 02-28-2015 Are you blind, or do you have serious difficulty seeing, even when wearing glasses No 02/28/2015 10:05 AM Rae Greenwood Ma No [facility] 02-28-2015 Do you have serious difficulty walking or climbing stairs Yes 02/28/2015 10:05 AM Rae Greenwood Ma Yes [facility] 02-28-2015 Do you have difficul ty dressing or bathing No 02/28/2015 10:05 AM Rae Greenwood Ma No [facility] 02-28-2015 Because of a physica l, mental, or emotional condition, do you have difficulty doing errands alone such as visiting a physician's office or shopping No 02/28/2015 10:05 AM Rae Greenwood Ma No [facility] Mental Status Date Assessment Result Facility 03-08-2025 Because of a physica l, mental, or emotional condition, do you have serious difficulty concentrating, remembering, or making decisions No 03/08/2025 1:52 PM Fabi Ramos, CANDELARIA No [facility] 06-22-2024 Because of a physica l, mental, or emotional condition, do you have serious difficulty concentrating, remembering, or making decisions No 06/22/2024 2:04 PM Deja Taylor, RN No [facility] 03-27-2022 Cognitive function Level Of Cons ciousness Awake;Alert;Appropriate;Fol lows Commands [facility] Work Phone: 02-28-2015 Because of a physica l, mental, or emotional condition, do you have serious difficulty concentrating, remembering, or making decisions Yes 02/28/2015 10:05 AM EDT Rae Duarte Ma Yes [facility] Clinical Notes 02-01-2013 to 06-13-2025 Telephone Encounter - Tex Bynum MA - 04/25/2025 12:38 PM EDTTelephone Encounter - Tex Bynum MA - 04/25/2025 12:38 PM EDTTelephone Encounter - Tex Bynum MA - 04/25/2025 11:42 AM EDT Note Date & Type Note Facility 06-13-2025 Note [facility] 05-30-2025 Note HNO ID: [id number] Author: VICKI BASS SRNA Service: ? Author Type: Student Type: Anesthesia Procedure Notes Filed: 05/30/2025 08:42 Note Text: ANESTHESIOLOGY PROCEDURE NOTE Airway General Information Procedure Start Time/Medication Administration: 05/30/2025 8:27 AM Procedure End Time: 05/30/2025 8:28 AM Patient location during procedure: OR Timeout Performed Pre-procedure: timeout performed Consent Obtained: Yes Patient identity confirmed: arm band and patient sedated or unresponsive Staffing Anesthesiologist: Iraida Santoyo MD ELECTRONIC PAGINATION SYSTEM OPERATOR: Angie Doe APRN.ELECTRONIC PAGINATION SYSTEM OPERATOR SRNA: Vicki Bass SRNA Performed by: IRENE Indications and Patient Condition Indications for airway management: anesthesia Preoxygenated: yes anesthesia circuit Patient position: sniffing Method: asleep Cricoid Pressure: No Manual In-Line Stabilization: No Difficult Mask: No Airway Accessory: oral airway Final Airway Details Final airway type: endotracheal airwayFinal Endotracheal Airway: ETT Cuffed: yes Successful intubation technique: direct laryngoscopy Devices used: Tena Endotracheal tube insertion site: oral Blade: Lisette Blade size: #3 ETT size (mm): 7.0 Measured from: lips Measurement (cm): 22 Placement verified by: chest auscultation and capnometry Cormack-Lehane Classification: grade I - full view of glottis Number of attempts at approach: 1 Failed airway: no Unrecognized esophageal intubation: no Airway not difficult SIGNATURE: IRENE Gan PATIENT NAME: Sri Chacon DATE: May 30, 2025 TIME: 8:41 AM CSN: [id number] [facility] 05-30-2025 Note HNO ID: [id number] Author: VICKI BASS SRNA Service: ? Author Type: Student Type: Anesthesia Procedure Notes Filed: 05/30/2025 08:39 Note Text: ANESTHESIOLOGY PROCEDURE NOTE PIV General Information Procedure Start Time/Medication Administration: 05/30/2025 7:30 AM Procedure End Time: 05/30/2025 7:35 AM Patient Location: OR Staffing SRNA: Vicki Bass SRNA Performed by: IRENE Preparation Sterility Preparation: hand hygiene performed prior to procedure, surgical cap used, mask used, sterile drape used during line insertion, skin prep agent completely dried prior to procedure Site Prep: Chloraprep Procedure Details Indication: need for IV access Needle Size/Type: 20 gauge angiocath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 Magnesium 03/07/2025 2.1 1.6 - 2.6 mg/dL Final Color 03/07/2025 Yellow Yellow Final Clarity 03/07/2025 Hazy (A) Clear Final Glucose, Urine 03/07/2025 Negative Negative Final Bilirubin, Urine 03/07/2025 Negative Negative Final Ketones, Urine 03/07/2025 2+ (A) Negative Final Specific [place], Ur 03/07/2025 1.030 1.005 - 1.030 Final Hemoglobin/Blood,Ur 03/07/2025 3+ (A) Negative Final pH, Urine 03/07/2025 5.5 5.0 - 8.0 Final Protein, Urine 03/07/2025 1+ (A) Negative Final Urobilinogen 03/07/2025 Negative Negative Final Nitrites 03/07/2025 Negative Negative Final Leuk Esterase 03/07/2025 Negative Negative Final WBC, Urine 03/07/2025 6-10 /HPF (A) 0-5 /HPF Final RBC, Urine 03/07/2025 >25 /HPF (A) 0-3 /HPF Final Bacteria 03/07/2025 None Seen None Seen /HPF Final Squamous Epithelial Cells 03/07/2025 Few /HPF Final WBC 03/08/2025 7.83 3.70 - 11.00 k/uL Final RBC 03/08/2025 4.41 3.90 - 5.20 m/uL Final Hemoglobin 03/08/2025 13.5 11.5 - 15.5 g/dL Final Hematocrit 03/08/2025 39.3 36.0 - 46.0 % Final MCV 03/08/2025 89.1 80.0 - 100.0 fL Final MCH 03/08/2025 30.6 26.0 - 34.0 pg Final MCHC 03/08/2025 34.4 30.5 - 36.0 g/dL Final RDW-CV 03/08/2025 12.7 11.5 - 15.0 % Final Platelet Count 03/08/2025 230 150 - 400 k/uL Final MPV 03/08/2025 9.1 9.0 - 12.7 fL Final Absolute nRBC 03/08/2025 <0.01 <0.01 k/uL Final Glucose 03/08/2025 96 70 - 100 mg/dL Final The [place] [employer] (ADA) provides guidance for cutoff [...] Standards of Medical Care in Diabetes 2016, [place] [employer]. Diabetes Care. 2016.39(Suppl 1). Results may be falsely elevated after the administration of Sulfapyridine. Results may be falsely depressed after the administration of Sulfasalazine. BUN 03/08/2025 11 7 - 26 mg/dL Final Creatinine 03/08/2025 0.73 0.51 - 0.95 mg/dL Final Patients receiving either N-Acetylcysteine (NAC) or Metamizole prior to venipuncture, may have falsely depressed results. Sodium 03/08/2025 139 136 - 145 mmol/L Final Potassium 03/08/2025 4.0 3.5 - 5.1 mmol/L Final Chloride 03/08/2025 104 98 - 107 mmol/L Final CO2 03/08/2025 26 21 - 32 mmol/L Final Anion Gap 03/08/2025 9 5 - 16 mmol/L Final Calcium, Total 03/08/2025 9.7 8.5 - 10.5 mg/dL Final Estimated Glomerular Filtration Ra* 03/08/2025 100 >=60 mL/min/1.73m Final Estimated Glomerular Filtration Rate (eGFR) is calculated using the 2020 CKD-EPI creatinine equation. This equation utilizes serum creatinine, sex, and age as parameters. The creatinine assay has traceable calibration to isotope dilution-mass spectrometry. Refer to KDIGO guidelines for clinical interpretation. In patients with unstable renal function, e.g. those with acute kidney injury, the eGFR may not accurately reflect actual GFR. Labs: - TSH: 4.26 (slightly elevated) Imaging: - Abdominal Ultrasound: Gallstones present, no bile duct dilation Tests: - (April) Colonoscopy: Tubular adenoma identified, described as borderline malignant ASSESSMENT/PLAN: 1. Hydronephrosis with urinary obstruction due to ureteral calculus (N13.2) - Recent hospitalization for large ureteral calculi with hydronephrosis; ureteral stent placed 2 weeks ago, lithotripsy performed last night. - No current hematuria or dysuria; stent removal planned after X-ray on the . - Start short course of oxycodone for post-lithotripsy pain management. - Advised patient to discuss stone analysis and strainer use with urology at next visit. - Follow-up with urology on the 2nd for X-ray and stent removal. 2. Hypothyroidism, unspecified type (E03.9) - TSH 4.26 one month ago; recent medication adjustment earlier this month. - Recheck TSH in one month. 3. Primary hypertension (I10) - Occasional elevated BP readings, but not consistently high; no antihypertensive medication indicated at this time. 4. Vitamin D deficiency (E55.9) - Continue current vitamin D supplementation. - Order vitamin D level. 5. Screening for diabetes mellitus (Z13.1) 6. Hyperglycemia (R73.9) - Order metabolic panel and CBC to assess blood glucose and overall health. - Advised patient to report any new symptoms or concerns. - Follow-up in 3 months. New medication(s) prescribed today: None. Counseling completed in adopting health behaviors such as avoiding excessive alcohol use, avoid tobacco use, improve nutrition, and engage in physical activities. Copy of written care plan, clinical summary, treatment plan, new medications, goals, and self management requirements were given to patient. Iveth Hernandez APRN.CNP [1] Social History Tobacco Use Smoking status: Never Passive exposure: Never Smokeless tobacco: Never Tobacco comments: VAPE Vaping Use Vaping status: current everyday user Substances: Nicotine, Flavoring Substance Use Topics Alcohol use: Not Currently Comment: rare Drug use: Never documented in this encounter [facility] 03-29-2025 Note HNO ID: [id number] Author: BRANDI LOVE AA Service: ? Author Type: Rn Quality Type: Anesthesia Procedure Notes Filed: 03/29/2025 16:07 Note Text: ANESTHESIOLOGY PROCEDURE NOTE Airway General Information Procedure Start Time/Medication Administration: 03/29/2025 4:00 PM Procedure End Time: 03/29/2025 4:00 PM Patient location during procedure: OR Timeout Performed Pre-procedure: timeout performed Consent Obtained: Yes Patient identity confirmed: arm band Staffing Anesthesiologist: Brett Briceno MD CAA: Brandi Love AA Performed by: CK Indications and Patient Condition Indications for airway management: anesthesia Preoxygenated: yesMethod: asleep Final Airway Details Final airway type: supraglottic airway Number of attempts at approach: 1 Final Supraglottic Airway: i-gel Size: 4Seal Adequate: yes SIGNATURE: BECCA Collins PATIENT NAME: Sri Chacon DATE: March 29, 2025 TIME: 4:06 PM CSN: [id number] [facility] 03-28-2025 Note HNO ID: [id number] Author: SHANTE HARLEY RN Service: ? Author Type: Registered Nurse Type: Progress Notes Filed: 03/28/2025 15:19 Note Text: MEDICATION INSTRUCTIONS PRIOR TO SURGERY Please read below carefully for your personalized instructions. Medications: If you are on blood thinner or anticoagulants including aspirin, please confirm with your surgical team on when to stop these medications. Unless instructed differently by your surgical team, stay on all of your medications until your surgery. Pre Surgery Med Instructions Medication instructions dicyclomine (BENTYL) 10 mg capsule Continue as prescribed. diphenhydrAMINE (BENADRYL) 50 mg/mL injection DO NOT TAKE THE MORNING OF SURGERY. ergocalciferol 50,000 unit capsule (VITAMIN D2, DRISDOL) DO NOT TAKE THE MORNING OF SURGERY. FLUoxetine (PROZAC) 40 mg capsule If you normally take this medication in the morning, it is ok to take the morning of surgery with a sip of water. hemorrhoid ointment (PREPARATION H) 0.25-14-74.9 % rectal ointment DO NOT TAKE THE MORNING OF SURGERY. lamoTRIgine (LAMICTAL) 100 mg tablet If you normally take this medication in the morning, it is ok to take the morning of surgery with a sip of water. levothyroxine (SYNTHROID) 88 mcg tablet If you normally take this medication in the morning, it is ok to take the morning of surgery with a sip of water. ondansetron (ZOFRAN) 4 mg tablet Continue as prescribed. pantoprazole DR (PROTONIX) 20 mg tablet If you normally take this medication in the morning, it is ok to take the morning of surgery with a sip of water. pregabalin (LYRICA) 50 mg capsule If you normally take this medication in the morning, it is ok to take the morning of surgery with a sip of water. sucralfate (CARAFATE) 100 mg/mL suspension DO NOT TAKE THE MORNING OF SURGERY. tamsulosin (FLOMAX) 0.4 mg If you normally take this medication in the morning, it is ok to take the morning of surgery with a sip of water. If you have any medication changes between receiving these instructions and your surgery date, please provide this updated information with the nurse who calls you the week day prior to your surgical procedure so we can update your list and provide you with updated instructions for the morning of your procedure. PRE-PROCEDURE INSTRUCTIONS TO PREPARE FOR YOUR PROCEDURE: Your arrival time for your procedure is 1445. Do NOT eat any solid foods after MIDNIGHT the night prior to your procedure - this includes gum or mints. You can drink clear liquids* up until 1245 , which is 2 hours before your arrival time. *Clear liquids = water, carbohydrate drink (sports drink that is clear or yellow in color), Ensure Pre-Surgery (given by TIMOTEO or your DrKarishma), fruit juice without pulp (apple/cranberry), clear tea, black coffee (no cream). NO CARBONATED BEVERAGES AND NO ALCOHOL. Shower the morning of the procedure, put on clean clothes, and have clean sheets for your bed to help prevent infection after your procedure. Leave all valuables such as jewelry including rings, piercings, wallets, and purses at home. Wear comfortable, loose-fitting clothing. If you wear glasses or contacts, please bring a case. SPECIAL INSTRUCTIONS: If instructed, bring your first voided urine specimen with you. If you were provided skin preparation to use prior to your procedure, complete this as directed. If you use crutches or a walker, bring them with you. If you have a home CPAP/BIPAP machine, bring it with you. If you were instructed to complete a fleets enema or bowel prep, complete as directed. Bring copy of Living Will/Power of Extruding Department Supervisor. Do not smoke or chew. If you use tobacco, quit or at least cut down before surgery. Do not smoke or chew after midnight the day before your surgery. This effects bleeding, infection, healing, and so much more. Do not take any Diet or Herbal Supplements 2 weeks prior to your surgery date. Please notify your physician if there is any change in your physical condition such as a cold, cough, fever, sore throat, or skin irritation near the surgical site. Visitors under the age of 14 are restricted in the Surgery Center. UPON ARRIVAL: Access to [facility] (the glass building) is located on [address] [place] [address]. Parasitologist parking is available for your convenience from 5am-5pm- there is a $5.00 charge for this service. Take the elevators directly inside the entrance to the 1st Floor Surgery Lobby. Sign in at the podium located to the left when you get off the elevators. A payment may be expected at the time of service. One visitor may come back to the preoperative area with you. The preoperative staff will be reviewing your medical history, please let them know if you prefer not to have a visitor with you during this time. Once you are ready for your procedure, two visitors at a time are permitted in your preprocedure room. [facility] 03-27-2025 Note HNO ID: [id number] Author: PAWEL SEE PA-C Service: Anesthesiology Author Type: Physician Manager Heart Type: Progress Notes Filed: 03/27/2025 08:13 Note Text: Summary: PAT review 49 yo female PMH: seizure disorder ([place] - last seizure 2020), GERD, HTN, hypothyroidism, MVP, kidney stones, IBS [facility] 03-27-2025 Note HNO ID: [id number] Author: PAWEL SEE PA-C Service: Anesthesiology Author Type: Physician Manager Heart Type: Progress Notes Filed: 03/27/2025 08:05 Note Text: Summary: DOS meds MEDICATION INSTRUCTIONS PRIOR TO SURGERY Please read below carefully for your personalized instructions. Medications: If you are on blood thinner or anticoagulants including aspirin, please confirm with your surgical team on when to stop these medications. Unless instructed differently by your surgical team, stay on all of your medications until your surgery. Pre Surgery Med Instructions Medication instructions dicyclomine (BENTYL) 10 mg capsule Continue as prescribed. diphenhydrAMINE (BENADRYL) 50 mg/mL injection DO NOT TAKE THE MORNING OF SURGERY. ergocalciferol 50,000 unit capsule (VITAMIN D2, DRISDOL) DO NOT TAKE THE MORNING OF SURGERY. FLUoxetine (PROZAC) 40 mg capsule If you normally take this medication in the morning, it is ok to take the morning of surgery with a sip of water. hemorrhoid ointment (PREPARATION H) 0.25-14-74.9 % rectal ointment DO NOT TAKE THE MORNING OF SURGERY. lamoTRIgine (LAMICTAL) 100 mg tablet If you normally take this medication in the morning, it is ok to take the morning of surgery with a sip of water. levothyroxine (SYNTHROID) 88 mcg tablet If you normally take this medication in the morning, it is ok to take the morning of surgery with a sip of water. ondansetron (ZOFRAN) 4 mg tablet Continue as prescribed. pantoprazole DR (PROTONIX) 20 mg tablet If you normally take this medication in the morning, it is ok to take the morning of surgery with a sip of water. pregabalin (LYRICA) 50 mg capsule If you normally take this medication in the morning, it is ok to take the morning of surgery with a sip of water. sucralfate (CARAFATE) 100 mg/mL suspension DO NOT TAKE THE MORNING OF SURGERY. tamsulosin (FLOMAX) 0.4 mg If you normally take this medication in the morning, it is ok to take the morning of surgery with a sip of water. If you have any medication changes between receiving these instructions and your surgery date, please provide this updated information with the nurse who calls you the week day prior to your surgical procedure so we can update your list and provide you with updated instructions for the morning of your procedure. [facility] 03-22-2025 Telephone encounter Note Pharmacy advised ok to change Tania Day MA [facility] 03-22-2025 Miscellaneous Notes Pharmacy advised ok to change Tania Day MA Leia pharmacist from [facility] pharmacy in [place] called with question about sucralfate supsension. She wanted to know if she could change the quantity from 1200 ml to 1260 ml? Please call to advise. documented in this encounter [facility] 03-22-2025 Telephone encounter Note Leia pharmacist from [facility] pharmacy in [place] called with question about sucralfate supsension. She wanted to know if she could change the quantity from 1200 ml to 1260 ml? Please call to advise. [facility] 03-21-2025 Instructions Duong Damon APRN.GEMMA - 03/21/2025 9:14 AM EDT We discussed your abdominal pain, diarrhea, and difficulty swallowing: - I prescribed Bentyl (dicyclomine) to help with abdominal cramping and pain. Take this before meals and at bedtime. This medication may also help reduce your diarrhea. - I prescribed Carafate in liquid form to coat your stomach and help you eat more comfortably. Take this before meals and at bedtime for 30 days. - Continue taking Protonix 20 mg in the morning before breakfast as prescribed. - I ordered a swallowing study to evaluate your throat and esophagus. This test will involve drinking barium while a speech therapist observes how it moves through your throat and esophagus on an X-ray. This will help determine if there are any strictures or other issues causing your swallowing difficulties. We discussed your recent colonoscopy and endoscopy results: - Your colonoscopy showed non-bleeding internal hemorrhoids and a 6-10 mm tubular adenoma polyp. This polyp had some cellular changes but was not cancerous. A follow-up colonoscopy is recommended in 7 years. - Your endoscopy showed mild stomach redness and esophageal inflammation. No H. pylori (a bacteria that can cause ulcers) was found. Biopsies were taken, and no concerning findings were reported. We discussed your recent kidney stone and cyst: - You mentioned having a kidney stone and a cyst between your kidney and liver. You recently had a stent placed and are scheduled for follow-up treatment on the . Please continue to follow up with your urologist for this condition. Next steps: - Start taking Bentyl and Carafate as prescribed. - Complete the swallowing study as ordered. - Follow up with your urologist on the for your kidney stone and cyst treatment. - Please let me know if your symptoms worsen or do not improve with the prescribed treatments. If you have any questions or concerns, feel free to contact our office. Dear Sri Chacon, Following our recent discussion, I'd like to recommend [facility] for your digestive symptoms. They offer nutrition and psychology programs led by an expert digestive care team, which can be beneficial in addition to the care we provide you at [facility]. Here s how to sign up: Qwiki link: https://santi.Revolights/?utm _source=ccf They are in-network with multiple health plans and offer affordable iyz-if-znaovq options. Here is what [employer] provides: ? Evidence-based nutrition program ? Science-backed brain-gut support ? Access to expert digestive care via telehealth for help with brain/gut and nutrition ? Gut health tracker ? Grocery-finding tools ? Curated educational content ? Seamless progress sharing with your [facility] provider Please feel free to contact me with any questions, and I encourage you to share your experience or any symptom changes with me at our next appointment. Duong Damon APRN.COMMUNITY HEALTH PLANNING DIRECTOR documented in this encounter [facility] 03-21-2025 History of Presen t illness Narrative Images from the original note were not included. [facility] New Patient Consult CHIEF COMPLAINT: Patient presents with: Abdominal Pain: Was in [place] ER and then taken to [facility]. Anal bleeding, Diarrhea and Dysphagia This consult was requested by Iveth Hernandez APRN* for an opinion regarding abdominal pain. My final recommendations will be communicated to the requesting health care provider by way of the shared medical record for internal providers or letter via the [employer] for external providers. HPI: Sri Chacon is a 49-year-old female with a history of IBS, presenting with abdominal pain, rectal bleeding, and dysphagia. Abdominal Pain: - Chronic abdominal pain, described as a constant cramping sensation. Reports having abdominal pain since childhood. - Pain is exacerbated by eating and drinking; reports, If I eat, it hurts 10 times worse. - Pain persists even when not eating. - Describes the pain as severe enough to cause crying. - Reports nausea but denies emesis. - Taking Protonix 20 mg in the morning before breakfast; unsure of its effectiveness. - Denies regurgitation of food or reflux. Rectal Bleeding: - Sri noticed rectal bleeding when wiping. - Recent colonoscopy revealed non-bleeding internal hemorrhoids. - she tried preparation H one time, and didn't notice a difference. - she is not currently having bleeding. Diarrhea: - Chronic diarrhea, occurring all day, all night. - Denies regular bowel movements; primarily experiences diarrhea. - Has tried mrfo-qst-tndmbfi medications with no relief. Dysphagia: - Difficulty swallowing both solids and liquids, feeling like they get stuck. - Symptoms have been present for a long while. At least 6 months. - Experiences gagging sensation when trying to swallow. - Takes 5-6 minutes to eat a small yogurt due to dysphagia. - Denies regurgitation of food. IBS: - Diagnosed with IBS- D in the past. Said she was diagnosed with this many years ago. - Has tried auir-zcr-tmecxpy medications with no relief. - Denies use of Bentyl or dicyclomine. Kidney Stone: - Recent emergency surgery for a large kidney stone and cyst. - Stent placed; follow-up appointment scheduled for the for lithotripsy. Family History: - Denies family history of gastric cancers or inflammatory bowel disease. : The perianal and digital rectal examinations were [...] minimal. Impression: - Non-bleeding internal hemorrhoids. - Normal duodenal bulb, first portion of the duodenum and second portion of the duodenum. Biopsied. - Erythematous mucosa in the antrum. Biopsied. - Z-line irregular. Biopsied. Repeat colon in 7 years. A. Duodenum, biopsy: - Duodenal mucosa with no histopathologic [...] F. Colon, rectum, polyp: - Tubular adenoma. 06/24/2019: Sricuate Lorenzok a 44 year old female who is returning regarding irritable bowel syndrome. I saw the patient in consultation on 01/21/18. That note has been reviewed. She exhibits hyper-awareness. She had been on dicyclomine. A prescription for Librax was sent. We had not heard from her since that visit. The patient underwent diagnostic colonoscopy 01/05/18. The colon appeared normal and random biopsies were without diagnostic alteration. Presenting complaint: The patient presents today reporting Im not feeling the greatest. I can go 6 days without eating because it hurts a lot. Now even not even eating and it's the same. She has tried going lactose free and gluten free , no carbs, tried Keto, without any relief. Will have severe stomach cramping and won't feel ok unless in the position. Reports a lot of stress. Having a bowel movement with eating - Started on dicyclomine Years ago the patient had a combination of anorexia and bulimia but no longer suffers from that disorder. She has had extensive gynecologic surgery after having had a ruptured tubal . She tells me that she is apparently moving to [place] for her second marriage in early February. Years ago the patient had a combination of anorexia and bulimia but no longer suffers from that disorder. She has had extensive gynecologic surgery after having had a ruptured tubal . She tells me that she is apparently moving to [place] for her second marriage in early February. Record Review: [facility] / Outside records reviewed. PAST MEDICAL HISTORY Diagnosis Date Calculus of kidney 07/03/2006 Calculus of ureter 03/16/2008 Convulsions (HCC) 02/01/2013 Depression Essential hypertension 01/01/2018 Gallstone 12/25/2017 Hydronephrosis 03/16/2008 Hypothyroidism IBS (irritable bowel syndrome) Lactose intolerance in adult 01/21/2018 Migraine 02/01/2013 Nonrheumatic mitral (valve) prolapse 06/15/2017 Seizure disorder (HCC) last 04/2021 Traumatic brain injury (HCC) Unspecified asthma(493.90) Resolved Unspecified ectopic without intrauterine (HCC) Ectopic PAST SURGICAL HISTORY Procedure Laterality Date ARTHROSCOPY KNEE DIAGNOSTIC W/WO SYNOVIAL BX SPX Left 06/30/2024 Dr. Mccracken ARTHROSCOPY KNEE DIAGNOSTIC W/WO SYNOVIAL BX SPX Left 10/04/2024 ARTHROSCOPY KNEE W/MENISCUS RPR MEDIAL/LATERAL Left 04/07/2024 Left knee arthroscopy medial meniscus root/posterior horn repair COLONOSCOPY SCREENING 01/20/2025 CYSTOSCOPY,URETEROSCOPY,LITHOTRI PSY DILATION & CURETTAGE DX&/THER NONOBSTETRIC [...] W/WO RMVL TUBE OVARY 01/2005 Hysterectomy, ALLY Allergies: ALLERGIES Allergen Reactions Codeine Hives, Swelling swelling-airway/face Morphine Swelling Penicillin G Hives, Swelling Shellfish Derived Anaphylaxis Benadryl [Diphenhyd* Mental Status Change Phenergan [Prometha* Mental Status Change Aspirin Rash Medications: diphenhydrAMINE (BENADRYL) 50 mg/mL injection BD LUER-FAHAD SYRINGE 3 mL 25 x 5 levothyroxine (SYNTHROID) 88 mcg tablet Take 1 tablet by mouth once daily. Take 1 1/2 tablets on Thursday tamsulosin (FLOMAX) 0.4 mg Take 1 capsule by mouth daily at bedtime. ondansetron (ZOFRAN) 4 mg tablet Take 1 tablet by mouth every 6 hours as needed for nausea/vomiting. hemorrhoid ointment (PREPARATION H) 0.25-14-74.9 % rectal ointment by RECTAL route as needed (For hemorrhoid pain and bleeding). pregabalin (LYRICA) 50 mg capsule Take 1 capsule by mouth three times a day for 90 days. ergocalciferol 50,000 unit capsule (VITAMIN D2, DRISDOL) Take 1 capsule by mouth one time a week. pantoprazole DR (PROTONIX) 20 mg tablet Take 1 tablet by mouth daily before breakfast. lamoTRIgine (LAMICTAL) 100 mg tablet Take 1 tablet by mouth two times a day. To start on or after 08/10/2024, after completing titration schedule. FLUoxetine (PROZAC) 40 mg capsule Take 1 capsule by mouth once daily. FAMILY HISTORY Problem Relation Age of Onset Arthritis Mother Cataract Mother other (pacemaker, defibrillator) Mother other (mitral valve) Father Cataract Maternal Grandmother Difficulty with anesthesia No Family History Thyroid No Family History Colon Cancer No Family History Employer And Job Title: No employer specified (Unemployed) Years Of Education Completed: Not specified Marital Status: Single SOCIAL HISTORY[1] Review of Systems: Review of Systems Constitutional: Positive for activity change, appetite change, fatigue and unexpected weight change. HENT: Positive for trouble swallowing. Gastrointestinal: Positive for abdominal pain, anal bleeding and diarrhea. All other systems reviewed and are negative. Constitutional: (+) decreased appetite Ears/Nose/Mouth/Throat: (+) dysphagia Gastrointestinal: (+) abdominal pain, (+) abdominal cramping, (+) diarrhea, (+) rectal bleeding, (+) nausea, (-) vomiting, (-) regurgitation, (-) heartburn Psychiatric: (+) crying episodes Are you taking any blood thinners? No Physical Examination: BP 116/74 Pulse 67 Ht 5' 1 (1.55m) Wt 135 lb (61.2kg) LMP 02/07/2000 BMI 25.52 kg/(m^2). Physical Exam Vitals and nursing note reviewed. HENT: Head: Normocephalic. Mouth/Throat: Mouth: Mucous membranes are dry. Eyes: Extraocular Movements: Extraocular movements intact. Abdominal: General: Bowel sounds are normal. There is no distension. Palpations: Abdomen is soft. There is no mass. Tenderness: There is generalized abdominal tenderness and tenderness in the right upper quadrant, periumbilical area, left upper quadrant and left lower quadrant. There is no guarding or rebound. Comments: Abdominal pain Musculoskeletal: Comments: Left knee brace Skin: General: Skin is warm. Neurological: General: No focal deficit present. Mental Status: She is alert and oriented to person, place, and time. Mental status is at baseline. Psychiatric: Mood and Affect: Mood is anxious. Speech: Speech is rapid and pressured. Assessment and Plan (R10.84) Generalized abdominal pain (primary encounter diagnosis) (R13.10) Dysphagia, unspecified type (R13.19) Other dysphagia (K29.30) Chronic superficial gastritis without bleeding (R10.9, G89.29) Chronic abdominal pain (K21.00) Gastroesophageal reflux disease with esophagitis, unspecified whether hemorrhage (K58.0) Irritable bowel syndrome with diarrhea (K64.8) Hemorrhoids, internal (K62.5) Rectal bleeding (R11.0) Nausea 1. Generalized abdominal pain (R10.84) Chronic abdominal pain (R10.9) Persistent abdominal pain exacerbated by both eating and fasting. Recent colonoscopy and endoscopy performed; endoscopy revealed mild gastric erythema, biopsies negative for H. pylori. - Initiated dicyclomine to be taken before meals and at bedtime to alleviate abdominal cramping and pain. - Prescribed Carafate in liquid form to be taken before meals and at bedtime to coat the stomach and reduce pain. 2. Dysphagia, unspecified type (R13.10) Other dysphagia (R13.19) Experiencing sensation of food and liquids getting stuck in the upper esophagus, requiring effort to swallow. No regurgitation or reflux reported. - Ordered a swallowing study with a speech therapist to evaluate esophageal function and identify any strictures. - consider repeat EGD for increased eosinophils 17 per high power field 3. Chronic superficial gastritis without bleeding (K29.30) Endoscopy showed mild gastric erythema; biopsies negative for H. pylori. - Continue monitoring symptoms; initiated Carafate to coat the stomach and reduce irritation. 4. Gastroesophageal reflux disease with esophagitis, unspecified whether hemorrhage (K21.00) Endoscopy revealed esophageal inflammation. Currently taking Protonix 20 mg in the morning before breakfast. - Continue Protonix 20 mg daily. 5. Irritable bowel syndrome with diarrhea (K58.0) History of IBS with current symptoms of frequent diarrhea and abdominal pain. No relief from quzo-yfk-yvettdj medications. - Initiated dicyclomine to manage abdominal cramping and reduce diarrhea. - referral for [facility]. - consider consult to Dr. Henderson. 6. Hemorrhoids, internal (K64.8) Rectal bleeding (K62.5) Colonoscopy revealed non-bleeding internal hemorrhoids measuring 6-10 mm. Rectal bleeding noted primarily during wiping. - Educated on the use of Preparation H for symptom relief. 7. Nausea (R11.0) Persistent nausea without vomiting. - Monitor symptoms; Carafate may provide some relief. - If your symptoms worsen or you develop new symptoms such as fever, vomiting, or severe pain, please contact our office or go to the emergency room. Follow up in office MONTHS: 3 months. Medical Decision Making: Problems: Minimal: Self-limited or minor problem Low: Acute, uncomplicated illness or injury and 2+ self-limited or minor problems Moderate: New problem with uncertain prognosis, Acute illness with systemic symptoms and 1+ chronic illnesses with change Data: Unique test result(s) reviewed: 1 Unique test(s) ordered: 2 Assessment requiring an independent historian(s) Risk: Moderate: Drug management, Moderate risk from testing/treatment and Decision on minor surgery w/ risk factors Medical Decision Making Level: 4 - Moderate Recording using ambient [employer] software for draft documentation of the visit was discussed with the patient/authorized front desk representative; all questions welcomed and answered. Patient/authorized front desk representative agreed to proceed Duong Damon APRN.CNP [facility] March 21, 2025 9:36 AM [1] Social History Tobacco Use Smoking status: Never Passive exposure: Never Smokeless tobacco: Never Vaping Use Vaping status: current everyday user Substances: Flavoring Substance Use Topics Alcohol use: Not Currently Comment: rare Drug use: Never documented in this encounter [facility] 03-21-2025 Note [facility] 03-20-2025 Note [facility] 03-20-2025 History of Presen t illness Narrative [facility] Encounter Date: 03/20/2025 Patient Name: Sri Chacon : 1975 Chief Complaint: left knee pain and limited motion Sri Chacon is a 49-year-old female presenting for evaluation of persistent knee pain and limited range of motion following multiple surgeries. She is a patient well known to Dr. Randolph and previously has undergone a left knee medial meniscal repair in March 2024 c/b arthrofibrosis requiring two arthroscopic JUAN/ALEX in June 2024 and September 2024. She most recently was seen on February 2025. Presents today for a second opinion. Sri reports her initial symptoms began at work in September 2023. She initially experienced difficulty rising from a squat position and subsequently noted her knee going out intermittently. Subsequently her knee gave out completely while attempting to step up, leading to an emergency department visit where she was placed on crutches and referred to multiple specialists. Initial MRI showed a small tear, and she underwent physical therapy and received multiple injections without significant improvement. On 04/07/2024, she underwent a meniscus repair performed by Dr. Ellsworth. Due to persistent issues with knee extension and flexion, she underwent a manipulation under anesthesia on 06/30/2024, followed by a third procedure on 10/04/2024. Despite these interventions, she continues to experience constant pain, limited knee extension and flexion, and rapid swelling. She has been using a knee brace and crutches but reports that these have not provided the desired improvement. She has also used a Dynasplint for 3 hours daily to improve knee extension but reports no significant benefit. Sri has been unable to work for 1 year and 6 months due to her knee issues and is eager to return to work. 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 She has not tried aquatic therapy or swimming since her knee issues began. She notes that she has not been in to see pain management despite recommendations to do so. Complete review of 14 systems, past medical and surgical history, social and family history were reviewed and updated today. PHYSICAL EXAM Constitutional: no fevers, chills, wt change General Appearance: Well-nourished and without distress Cardiovascular: Normal capillary refill and circulation Pulmonary: regular rate and nonlabored Gl- abd soft, nt/nd, no pubic or symphysis tenderness Back - no rib hump, nontender Lymphatic: No abnormal lymph node swelling or lymphangitis noted. Skin: No skin lesions noted Left knee Ambulates with antalgic gait using crutches Wearing hinged knee brace Knee ROM 20-60- pain limited Trace effusion Well healed surgical incisions TTP over medial and lateral joint line Remainder of exam unable to be performed due to limitations in ROM RADIOLOGY Upon review of 4V left Knee x-ray done 01/12/25 as interpreted by myself, Sri is noted to have: no obvious fracture, mild OA, mild dissuse osteopenia IMPRESSION Sri Chaocn is a 49 year old old female s/p PLAN We discussed your ongoing knee pain and limited range of motion following multiple surgeries. Discussed that she has significant limitations in ROM on exam today. Discussed that this is a difficult problem especially given two prior JUAN/ALEX where full symmetric motion was achieved. Do not feel she warrants further surgical intervention at this point. Discussed that I would recommend continued use of her dynasplint and recommend increasing hours utilizing. Also discussed prone hangs. Discussed the addition of aquatic therapy to try and improve ROM. Agree with getting her into pain management and recommend she schedule that appointment. Recommend getting out of her brace and off of crutches to try and improve motion. F/u with Dr. Randolph or myself in 2 months. Please follow these instructions and let us know if you experience worsening symptoms or have any concerns. Recording using [employer] software for draft documentation of the visit was discussed with the patient/authorized front desk representative; all questions welcomed and answered. Patient/authorized front desk representative agreed to proceed Darian Campbell MD documented in this encounter [facility] 03-13-2025 Telephone encounter Note Pt. Notified. Veronika Guallpa MA [facility] 03-13-2025 Telephone encounter Note ----- Message from Iveth Hernandez APRN.CNP sent at 03/12/2025 6:05 PM EDT ----- TSH has improved but still slightly elevated. I want her to take 1 1/2 tablets of 88 mcg on Thursday, continue with 1 tablet daily on all other days. [facility] 03-13-2025 Miscellaneous Notes Pt. Notified. Veronika Guallpa MA ----- Message from Iveth Hernandez APRN.COMMUNITY HEALTH PLANNING DIRECTOR sent at 03/12/2025 6:05 PM EDT ----- TSH has improved but still slightly elevated. I want her to take 1 1/2 tablets of 88 mcg on Thursday, continue with 1 tablet daily on all other days. documented in this encounter [facility] 03-10-2025 Telephone encounter Note Patient called and left a message asking if she could get some pain medication from having emergency surgery. Please advise Ricardo Heard [facility] 03-10-2025 Miscellaneous Notes Patient called and left a message asking if she could get some pain medication from having emergency surgery. Please advise Ricardo Heard documented in this encounter [facility] 03-10-2025 Note [facility] 03-09-2025 Telephone encounter Note Orders placed. [facility] 03-09-2025 Miscellaneous Notes Orders placed. Called pt and she is on 03/29. Aware of instructions. Can you place orders for the CBC, BMP, Urinalysis and urine culture, EKG Pt evaluated during admission for right ureteral calculi Surgery: Extracorporeal shockwave lithotripsy - right Duration: 1 hour(s) Surgeon: Dr. Rai Location: [facility] Anesthesia: General Fluoroscopy: Yes Special equipment: none PACC visit: No Presurgical testing: CBC, BMP, Urinalysis and urine culture one week prior to surgery, EKG Clearance: No Bowel prep: No Blood thinners to stop: yes Will need follow up [address] Rai for stent removal. Post up KUB ordered. documented in this encounter [facility] 03-09-2025 Telephone encounter Note Called pt and she is on 03/29. Aware of instructions. Can you place orders for the CBC, BMP, Urinalysis and urine culture, EKG [facility] 03-08-2025 History of Presen t illness Narrative BEHAVIORAL HEALTH IOP (INTENSIVE OUTPATIENT PROGRAM) APPOINTMENT CANCELLATION COMMUNICATION DATE: 03/08/2025 Scheduled Intensive Outpatient Program appointment for Sri Chacon was on 03-08-2025 at 0900. Patient canceled the appointment. Due to being inpatient at [facility]. SIGNATURE: ALLYN Caruso PATIENT NAME: Sri Chacon DATE: March 08, 2025 TIME: 7:06 AM documented in this encounter [facility] 03-08-2025 Hospital course Narrative [facility] Partial Hospitalization and Intensive Outpatient Program [address] [place] [address] IOP (INTENSIVE OUTPATIENT PROGRAM) PATIENT DISCHARGE INSTRUCTIONS C O N F I D E N T I A L I N F O R M A T I O N The following is a summary of your discharge instructions. Some of the information contained on this summary may be confidential. This information should be kept in your records and should be shared with your regular doctor. Patient Name: Sri Chacon Allergies as of 03/08/2025 ALLERGIES Allergen Reactions Codeine Hives, Swelling swelling-airway/face Morphine Swelling Penicillin G Hives, Swelling Shellfish Derived Anaphylaxis Benadryl [Diphenhyd* Mental Status Change Phenergan [Prometha* Mental Status Change Aspirin Rash This is a current medication list per your reported information. Current Outpatient Medications Medication Sig phenazopyridine (PYRIDIUM) 200 mg tablet Take 1 tablet by mouth three times a day as needed for up to 5 days. tamsulosin (FLOMAX) 0.4 mg Take 1 capsule by mouth daily at bedtime. ondansetron (ZOFRAN) 4 mg tablet Take 1 tablet by mouth every 6 hours as needed for nausea/vomiting. hemorrhoid ointment (PREPARATION H) 0.25-14-74.9 % rectal ointment by RECTAL route as needed (For hemorrhoid pain and bleeding). oxyCODONE IR (ROXICODONE) 5 mg immediate release tablet Take 1 tablet by mouth every 6 hours as needed for pain for up to 3 days. pregabalin (LYRICA) 50 mg capsule Take 1 capsule by mouth three times a day for 90 days. levothyroxine (SYNTHROID) 88 mcg tablet Take 1 tablet by mouth once daily. ergocalciferol 50,000 unit capsule (VITAMIN D2, DRISDOL) Take 1 capsule by mouth one time a week. pantoprazole DR (PROTONIX) 20 mg tablet Take [...] daily. No current facility-administered medications for this encounter. Facility-Administered Medications Ordered in Other Encounters Medication Dose Route Frequency tamsulosin 0.4 mg cap(s) (FLOMAX) 0.4 mg ORAL AT BEDTIME phenazopyridine 200 mg tab(s) (PYRIDIUM) 200 mg ORAL TID after MEALS hemorrhoid ointment ointment (PREPARATION H) RECTAL PRN lamoTRIgine 100 mg tab(s) (LaMICtal) 100 mg ORAL BID pregabalin 25 mg cap(s) (LYRICA) 25 mg ORAL TID pantoprazole DR 20 mg tab(s) (PROTONIX) 20 mg ORAL BEFORE BREAKFAST DAILY FLUoxetine 40 mg cap(s) (PROzac) 40 mg ORAL DAILY levothyroxine 88 mcg tab(s) (SYNTHROID) 88 mcg ORAL DAILY acetaminophen 650 mg tab(s) (TYLENOL) 650 mg ORAL q 4 H PRN ibuprofen 400 mg tab(s) (MOTRIN) 400 mg ORAL q 6 H PRN ondansetron 4 mg tab(s) (ZOFRAN) 4 mg ORAL q 6 H PRN Or ondansetron (PF) 4 mg injection (ZOFRAN) 4 mg INTRAVENOUS q 6 H PRN If you have any questions or concerns about your medication(s) please contact the prescribing physician. Your follow-up appointments include: Psychiatry: Anaya Bartlett APRN Therapy: Patient to return to IOP when she feels she is able. Could not complete program at this time due to health. Recommended Community Resources: [facility]/Emergency 24-Hour Mental Health and [facility] Line for Adults and Children [facility] First Call for Help or [address] [facility] Lifeline-Suicide Prevention 9-610-399-TALK (9446) ANDRE ([employer] [place] on Mental Illness) . Info referral line I have received a copy of the above instructions and understand them. SIGNED: Patient unable to sign due to VIOP Date: Time:___ Patient/Significant Other Signed: Date: Time:__ Staff Signature/Title BEHAVIORAL HEALTH IOP (INTENSIVE OUTPATIENT PROGRAM) CLOSING SUMMARY OPENING/ADMIT DATE: 03-06-25 CLOSING/TERMINATION DATE: 03-08-25 DATE OF LAST CONTACT: 03-08-25 PRESENTING COMPLAINT: Increased symptoms of depression, anxiety with Suicidal Ideation. UNRESOLVED PROBLEMS: all GOALS MET: none GOALS TO CONTINUE ON OUTPATIENT: all Unable to complete SAFE-T, GAD7, And PHQ9 due to the patient withdrawing from the program. The patient plans to re-enroll when she has her health better managed. She had to discharge due to emergency surgery and follow up appointments. MEDICATION SUMMARY: Current Outpatient Medications Medication Sig phenazopyridine (PYRIDIUM) 200 mg tablet Take 1 tablet by mouth three times a day as needed for up to 5 days. tamsulosin (FLOMAX) 0.4 mg Take 1 capsule by mouth daily at bedtime. ondansetron (ZOFRAN) 4 mg tablet Take 1 tablet by mouth every 6 hours as needed for nausea/vomiting. hemorrhoid ointment (PREPARATION H) 0.25-14-74.9 % rectal ointment by RECTAL route as needed (For hemorrhoid pain and bleeding). oxyCODONE IR (ROXICODONE) 5 mg immediate release tablet Take 1 tablet by mouth every 6 hours as needed for pain for up to 3 days. pregabalin (LYRICA) 50 mg capsule Take 1 capsule by mouth three times a day for 90 days. levothyroxine (SYNTHROID) 88 mcg tablet Take 1 tablet by mouth once daily. ergocalciferol 50,000 unit capsule (VITAMIN D2, DRISDOL) Take 1 capsule by mouth one time a week. pantoprazole DR (PROTONIX) 20 mg tablet Take [...] daily. No current facility-administered medications for this encounter. Facility-Administered Medications Ordered in Other Encounters Medication Dose Route Frequency tamsulosin 0.4 mg cap(s) (FLOMAX) 0.4 mg ORAL AT BEDTIME phenazopyridine 200 mg tab(s) (PYRIDIUM) 200 mg ORAL TID after MEALS hemorrhoid ointment ointment (PREPARATION H) RECTAL PRN lamoTRIgine 100 mg tab(s) (LaMICtal) 100 mg ORAL BID pregabalin 25 mg cap(s) (LYRICA) 25 mg ORAL TID pantoprazole DR 20 mg tab(s) (PROTONIX) 20 mg ORAL BEFORE BREAKFAST DAILY FLUoxetine 40 mg cap(s) (PROzac) 40 mg ORAL DAILY levothyroxine 88 mcg tab(s) (SYNTHROID) 88 mcg ORAL DAILY acetaminophen 650 mg tab(s) (TYLENOL) 650 mg ORAL q 4 H PRN ibuprofen 400 mg tab(s) (MOTRIN) 400 mg ORAL q 6 H PRN ondansetron 4 mg tab(s) (ZOFRAN) 4 mg ORAL q 6 H PRN Or ondansetron (PF) 4 mg injection (ZOFRAN) 4 mg INTRAVENOUS q 6 H PRN FINAL DIAGNOSIS: Mood Disorder Major Depressive Disorder, Recurrent, Severe Without Psychotic Symptoms F33.2 Anxiety Disorder Generalized Anxiety Disorder F41.1 PTSD, chronic F43.12 History of polysubstance abuse REASON FOR CLOSING/TERMINATION: Withdrew from program REFERRALS: Psychiatry: Anaya Bartlett APRN Therapy: Patient to return to IOP when she feels she is able. Cannot complete program at this time due to health. SIGNATURE: ALLYN Caruso PATIENT NAME: Sri Chacon DATE: March 08, 2025 TIME: 3:21 PM documented in this encounter [facility] 03-08-2025 Miscellaneous Notes IOP TEAM NOTE IOP TEAM MEETING DATE: 03/08/2025 RECENT ASSESSMENTS/TREATMENT PLAN REVIEWS: Patient Data Generalized Anxiety Disorder Scale (DARREL-7) 01/08/2025 02/24/2025 02/27/2025 DARREL - 7 SCORES Score 18 21 21 (0-4) minimal anxiety, (5-9) mild anxiety, (10-14) moderate anxiety, (15-21) severe anxiety Patient Health Questionnaire (PHQ-9) 02/11/2025 02/24/2025 02/27/2025 PHQ-9 Score 21 20 27 (0-4) minimal depression, (5-9) mild depression, (10-14) moderate depression, (15-19) moderately severe depression, (20-27) severe depression Patient Data IOP Daily Questionnaire 03/01/2025 03/05/2025 IOP Daily Today, is your belief in your ability to use your Safety Plan in a crisis at 90%? Yes Yes Today, have you wished you were or wished you could go to sleep and not wake up? Yes Yes Today, have you actually had any thoughts of killing yourself? Yes Yes On a scale of 1 to 10 how would you rate your mood now? 1 1 SUICIDE RISK AND MITIGATION PLAN High Risk. Suicidal ideation with intent or intent with plan in past month. Pt is assessed by MHPs daily in group. BLASTING [employer] MAN continues to monitor patient. Should pt report an increase in passive wish or SI CSSR-S and SAFE-T will be administered. Pt reports daily commitment to the use of the safety plan they created with the support of MHPs. WEEKLY REVIEW OF CLIENT PROGRESS: The patient has not been in groups this week. Patient called off on Thursday stating she wasn't feeling well and then was later admitted to [facility] inpatient. DISCHARGE PLANNING/RECOMMENDATIONS: Patient to remain in IOP at this time Tentative discharge on 04-12-2025 DC Planning: Outpatient Providers: Anaya Bartlett:BLASTING [employer] MAN Needs therapy This consensus plan was developed by [facility] treatment team which met via zoom on 03-08-2025 Team Members Participation in this Plan of Care: ALLYN Caruso, LPAT ANDREA Murphy, RHIANNON AbarcaS DOCUMENTED BY: ALLYN Caruso PATIENT NAME: Sri Chacon DATE: March 08, 2025 TIME: 12:51 PM documented in this encounter [facility] 03-08-2025 Note HNO ID: [id number] Author: JANETT DASH LPCC Service: Behavioral Health IOP (Intensive Outpatient Program) Author Type: Counselor Type: Progress Notes Filed: 03/08/2025 12:22 Note Text: BEHAVIORAL HEALTH IOP (INTENSIVE OUTPATIENT PROGRAM) APPOINTMENT CANCELLATION COMMUNICATION DATE: 03/08/2025 Scheduled Intensive Outpatient Program appointment for Sri Chacon was on 03-08-2025 at 0900. Patient canceled the appointment. Due to being inpatient at [facility]. SIGNATURE: ALLYN Caruso PATIENT NAME: Sri Chacon DATE: March 08, 2025 TIME: 7:06 AM [facility] 03-08-2025 Note HNO ID: [id number] Author: JANETT DASH [facility] Service: Behavioral Health IOP (Intensive Outpatient Program) Author Type: Counselor Type: Plan of Care Filed: 03/08/2025 13:17 Note Text: IOP TEAM NOTE IOP TEAM MEETING DATE: 03/08/2025 RECENT ASSESSMENTS/TREATMENT PLAN REVIEWS: Patient Data Generalized Anxiety Disorder Scale (DARREL-7) 01/08/2025 02/24/2025 02/27/2025 DARREL - 7 SCORES Score 18 21 21 (0-4) minimal anxiety, (5-9) mild anxiety, (10-14) moderate anxiety, (15-21) severe anxiety Patient Health Questionnaire (PHQ-9) 02/11/2025 02/24/2025 02/27/2025 PHQ-9 Score 21 20 27 (0-4) minimal depression, (5-9) mild depression, (10-14) moderate depression, (15-19) moderately severe depression, (20-27) severe depression Patient Data IOP Daily Questionnaire 03/01/2025 03/05/2025 IOP Daily Today, is your belief in your ability to use your Safety Plan in a crisis at 90%? Yes Yes Today, have you wished you were or wished you could go to sleep and not wake up? Yes Yes Today, have you actually had any thoughts of killing yourself? Yes Yes On a scale of 1 to 10 how would you rate your mood now? 1 1 SUICIDE RISK AND MITIGATION PLAN High Risk. Suicidal ideation with intent or intent with plan in past month. Pt is assessed by MHPs daily in group. BLASTING [employer] MAN continues to monitor patient. Should pt report an increase in passive wish or SI CSSR-S and SAFE-T will be administered. Pt reports daily commitment to the use of the safety plan they created with the support of MHPs. WEEKLY REVIEW OF CLIENT PROGRESS: The patient has not been in groups this week. Patient called off on Thursday stating she wasn't feeling well and then was later admitted to [facility] inpatient. DISCHARGE PLANNING/RECOMMENDATIONS: Patient to remain in [facility] at this time Tentative discharge on 04-12-2025 DC Planning: Outpatient Providers: Anaya Bartlett:BLASTING [employer] MAN Needs therapy This consensus plan was developed by [facility] treatment team which met via zoom on 03-08-2025 Team Members Participation in this Plan of Care: ALLYN Caruso, LPAT ANDREA Murphy [facility] DOCUMENTED BY: ALLYN Caruso PATIENT NAME: Sri Chacon DATE: March 08, 2025 TIME: 12:51 PM [facility] 03-08-2025 Plan of care note IOP TEAM NOTE IOP TEAM MEETING DATE: 03/08/2025 RECENT ASSESSMENTS/TREATMENT PLAN REVIEWS: Patient Data Generalized Anxiety Disorder Scale (DARREL-7) 01/08/2025 02/24/2025 02/27/2025 DARREL - 7 SCORES Score 18 21 21 (0-4) minimal anxiety, (5-9) mild anxiety, (10-14) moderate anxiety, (15-21) severe anxiety Patient Health Questionnaire (PHQ-9) 02/11/2025 02/24/2025 02/27/2025 PHQ-9 Score 21 20 27 (0-4) minimal depression, (5-9) mild depression, (10-14) moderate depression, (15-19) moderately severe depression, (20-27) severe depression Patient Data IOP Daily Questionnaire 03/01/2025 03/05/2025 IOP Daily Today, is your belief in your ability to use your Safety Plan in a crisis at 90%? Yes Yes Today, have you wished you were or wished you could go to sleep and not wake up? Yes Yes Today, have you actually had any thoughts of killing yourself? Yes Yes On a scale of 1 to 10 how would you rate your mood now? 1 1 SUICIDE RISK AND MITIGATION PLAN High Risk. Suicidal ideation with intent or intent with plan in past month. Pt is assessed by MHPs daily in group. BLASTING CONTRACT MAN continues to monitor patient. Should pt report an increase in passive wish or SI CSSR-S and SAFE-T will be administered. Pt reports daily commitment to the use of the safety plan they created with the support of MHPs. WEEKLY REVIEW OF CLIENT PROGRESS: The patient has not been in groups this week. Patient called off on Thursday stating she wasn't feeling well and then was later admitted to [facility]. DISCHARGE PLANNING/RECOMMENDATIONS: Patient to remain in IOP at this time Tentative discharge on 04-12-2025 DC Planning: Outpatient Providers: Anaya Bartlett:ANDREA Needs therapy This consensus plan was developed by [facility] treatment team which met via zoom on 03-08-2025 Team Members Participation in this Plan of Care: Janett Dash, VALERI, LPAT ANDREA Murphy, [facility] Ana Bruce, [facility]-S DOCUMENTED BY: ALLYN Caruso PATIENT NAME: Sri Chacon DATE: March 08, 2025 TIME: 12:51 PM [facility] 03-08-2025 Telephone encounter Note Pt evaluated during admission for right ureteral calculi Surgery: Extracorporeal shockwave lithotripsy - right Duration: 1 hour(s) Surgeon: Dr. Rai Location: [facility] Anesthesia: General Fluoroscopy: Yes Special equipment: none PACC visit: No Presurgical testing: CBC, BMP, Urinalysis and urine culture one week prior to surgery, EKG Clearance: No Bowel prep: No Blood thinners to stop: yes Will need follow up [address] Rai for stent removal. Post up KUB ordered. [facility] 03-08-2025 Note HNO ID: [id number] Author: LAVONNE RAI MD Service: Urology Author Type: Nurse Practitioner Type: Progress Notes Filed: 03/08/2025 09:12 Note Text: Attestation signed by Lavonne Rai MD at 03/08/2025 9:12 AM ESWL as o/p. PROGRESS NOTE SERVICE DATE: 03/08/2025 SERVICE TIME: 8:42 AM Subjectives: Evaluated at bedside. No acute distress noted. No overnight events. C/O of right flank pain- stent discomfort. Medications: Current Facility-Administered Medications Medication Dose Route Frequency ondansetron 4 mg tab(s) (ZOFRAN) 4 mg ORAL q 6 H PRN Or ondansetron (PF) 4 mg injection (ZOFRAN) 4 mg INTRAVENOUS q 6 H PRN hemorrhoid ointment ointment (PREPARATION H) RECTAL PRN lamoTRIgine 100 mg tab(s) (LaMICtal) 100 mg ORAL BID pregabalin 25 mg cap(s) (LYRICA) 25 mg ORAL TID pantoprazole DR 20 mg tab(s) (PROTONIX) 20 mg ORAL BEFORE BREAKFAST DAILY FLUoxetine 40 mg cap(s) (PROzac) 40 mg ORAL DAILY levothyroxine 88 mcg tab(s) (SYNTHROID) 88 mcg ORAL DAILY acetaminophen 650 mg tab(s) (TYLENOL) 650 mg ORAL q 4 H PRN ibuprofen 400 mg tab(s) (MOTRIN) 400 mg ORAL q 6 H PRN tamsulosin 0.4 mg cap(s) (FLOMAX) 0.4 mg ORAL AT BEDTIME phenazopyridine 200 mg tab(s) (PYRIDIUM) 200 mg ORAL TID after MEALS Objective PHYSICAL EXAM: Physical Exam Performed: General appearance: cooperative, pleasant, no acute distress, alert and oriented, Head: Normocephalic. Lungs: unlabored Abdomen: Abdomen soft, non-tender. Extremities: Extremities normal. No edema. Peripheral pulses: Normal. Genitourinary: Bladder: non-palpable, non-distended, non-tender + CVA/suprapubic tenderness DATA: Diagnostic tests reviewed for today's visit: Most recent labs and imaging results. Assessment AND Plan Hydronephrosis with urinary obstruction due to renal calculus -2 mm distal, 12 mm UPJ stones with hydronephrosis. - S/P DAVID with Dr. Stover 03/07/25 -Will need outpatient definitive stone invention. ESWL with Dr. Rai - rec outpatient metabolic workup Right flank pain -2/2 obstructing calculi - UA 6-10 WBC >25 RBC/HPF. No leukocytosis. No TAIWO - start flomax/pyridium for stent discomfort. Duong Sandhu APRN.CNP [phone] SERVICE DATE: March 08, 2025 SERVICE TIME: 8:42 AM [facility] 03-07-2025 Note HNO ID: [id number] Author: JANETT MUNOZ RN Service: Care Management Author Type: Registered Nurse Type: Care Mgt Initial Assessment Filed: 03/07/2025 12:45 Note Text: CARE MANAGEMENT: ASSESSMENT AND DISCHARGE PLAN SERVICE DATE: March 07, 2025 SERVICE TIME: 1241 PCP: Iveth Hernandez APRN.CNP Primary Contact: Extended Emergency Contact Information Primary Emergency Contact: Tiffany Potter [facility] Mobile Relation: Mother Admission Status: Observation Insurance Provider: [employer] Discharge Planning requested by: Per Department Practice Potential Transition Plans Home Advance Directives Current Advance Directive: None Expediter Clerk Attempted to Assist with AD Completion: Yes Action: Education Provided Current Living Arrangements and Support Lives with: Alone Type of Residence: Private Residence (Apartment or Condo) Does the patient have to climb stairs at home?: No Support: Family members, Friends/neighbors How do you manage to accomplish the following: Independent: Ambulation, Bathe/Shower, Dress, Meals/Meal Prep, Going to the bathroom, Medication Management, Transportation to appointments/community Current Services/Equipment Current Post-Acute Service(s): DME Current DME Type: Crutches Discharge Planning Patient Goal(s): Be able to go home, General wellness [place] of Choice Explained: Are you interested in bedside delivery of your medications? No Discharge Planning Participant(s): Patient Patient/Family Comments: Caregiver Assessment: Caregiver is ready, willing and able to meet the patient's needs as recommended by the inter-professional team: No Caregiver needed Transport at Discharge: Transportation Arrangements: Car Needs Prior to Discharge: Needs Prior to Discharge: Procedure Procedure Needed: cystoscopy and poss stent placement Post-Acute Discharge Plan: Chart reviewed, spoke with patient at the bedside, she is independent with self care and drives. Patient denies use of any DME or community resources, she last saw her PCP over one year ago, denies difficulty obtaining medications. Patient admitted with hydronephrosis with urinary obstruction due to renal calculus. Urology consulted, plan for OR today. Patient plans to return home when she's medically ready, she denies any home going needs, she will have transportation. CM will continue to follow should needs arise. Intimate Partner Violence We have begun to talk to patients about safe and healthy relationships because it can have a large impact on your health. Do you feel safe around your partner or ex-partner?: Yes Food Insecurity Within the past 12 months, you worried that your food would run out before you got the money to buy more.: Never true Within the past 12 months, the food you bought just didn't last and you didn't have money to get more.: Never true Transportation Needs In the past 12 months, has lack of transportation kept you from medical appointments or from getting medications?: No In the past 12 months, has lack of transportation kept you from meetings, work, or from getting things needed for daily living?: No Housing Stability In the last 12 months, was there a time when you were not able to pay the mortgage or rent on time?: No In the past 12 months, how many times have you moved where you were living?: 0 At any time in the past 12 months, were you homeless or living in a longterm (including now)?: No Utilities In the past 12 months has the [employer], gas, oil, or water [employer] threatened to shut off services in your home?: No Social Information Financial Resources: Unemployed SIGNATURE: Janett Munoz RN PATIENT NAME: Sri Chacon DATE: March 07, 2025 TIME: 12:41 PM [facility] 03-07-2025 Note HNO ID: [id number] Author: SANDY PÉREZ AA Service: ? Author Type: Rn Quality Type: Anesthesia Procedure Notes Filed: 03/07/2025 11:07 Note Text: ANESTHESIOLOGY PROCEDURE NOTE Airway General Information Procedure Start Time/Medication Administration: 03/07/2025 10:53 AM Procedure End Time: 03/07/2025 10:54 AM Patient location during procedure: OR Timeout Performed Pre-procedure: timeout performed Consent Obtained: Yes Patient identity confirmed: arm band and patient Staffing Anesthesiologist: Domingo Mccann DO CAA: Sandy Pérez AA Performed by: CK Indications and Patient Condition Indications for airway management: anesthesia Preoxygenated: yes anesthesia circuit Patient position: sniffing Method: asleep Cricoid Pressure: No Manual In-Line Stabilization: No Difficult Mask: No Final Airway Details Final airway type: supraglottic airway Number of attempts at approach: 1 Final Supraglottic Airway: i-gel Size 4 Seal Adequate: yes Failed airway: no Unrecognized esophageal intubation: no Airway not difficult Comments Uncomplicated LMA placement, dentition unchanged from preoperative assessment. SIGNATURE: BECCA Montez PATIENT NAME: Sri Chacon DATE: March 07, 2025 TIME: 11:06 AM CSN: [id number] [facility] 03-07-2025 Note HNO ID: [id number] Author: FABI CONNER RN Service: Nursing Author Type: Registered Nurse Type: Nursing Progress Note Filed: 03/07/2025 10:02 Note Text: Patient off unit to radiology then to OR for cystoscopy. [facility] 03-07-2025 Note HNO ID: [id number] Author: GRETA ARCE APRN.CNP Service: Hospital Medicine Author Type: Nurse Practitioner Type: Progress Notes Filed: 03/07/2025 14:00 Note Text: DEPARTMENT OF HOSPITAL MEDICINE PROGRESS NOTE SERVICE DATE: 03/07/2025 SERVICE TIME: 9:00 AM Hospital Medicine/Primary Attending: Ngozi Gary MD PRIMARY CARE PHYSICIAN: Iveth Hernandez APRN.COMMUNITY HEALTH PLANNING DIRECTOR Readmission: Highest Readmission Risk Score: 14 Subjective INTERVAL HPI: No acute events overnight. Seen and examined at bedside. She is resting in bed. Endorses right flank pain, feels like insides are ripping apart, states nursing already notified for analgesic. Endorses nausea. Denies chest pain, shortness of breath, abdominal pain, vomiting, fever, chills. She is pending OR today. Current Facility-Administered Medications Medication Dose Route Frequency NaCl 0.9% iv flush bag 20 mL INTRAVENOUS PRN lactated ringers iv infusion 75 mL/hr INTRAVENOUS CONTINUOUS ondansetron 4 mg tab(s) (ZOFRAN) 4 mg ORAL q 6 H PRN Or ondansetron (PF) 4 mg injection (ZOFRAN) 4 mg INTRAVENOUS q 6 H PRN HYDROmorphone 0.2 mg injection (DILAUDID) 0.2 mg INTRAVENOUS q 4 H PRN hemorrhoid ointment ointment (PREPARATION H) RECTAL PRN lamoTRIgine 100 mg tab(s) (LaMICtal) 100 mg ORAL BID pregabalin 25 mg cap(s) (LYRICA) 25 mg ORAL TID pantoprazole DR 20 mg tab(s) (PROTONIX) 20 mg ORAL BEFORE BREAKFAST DAILY FLUoxetine 40 mg cap(s) (PROzac) 40 mg ORAL DAILY levothyroxine 88 mcg tab(s) (SYNTHROID) 88 mcg ORAL DAILY Objective PHYSICAL EXAM: BP 133/79 Pulse 83 Temp (Src) 98.2 (Oral) Resp 16 Ht 5' 1 (1.55m) Wt 189 lb 2.5 oz (85.8kg) SpO2 97% LMP 02/07/2000 BMI 35.76 kg/(m2). O2 Therapy: Room Air Physical Exam Performed GENERAL: Alert, no distress, cooperative, Obese SKIN: Skin color, texture, turgor normal. No rashes or lesions. LUNGS: Lungs clear to auscultation, Good diaphragmatic excursion CARDIAC: Normal S1 and S2; no rubs, murmurs, or gallops ABDOMEN: Abdomen soft, non-tender, BS normal, No masses or organomegaly and Positive findings: obese EXTREMITIES: Normal exam of the extremities NEURO: Grossly normal cognition, motor function, and cranial nerves III-XII The remainder of the physical exam is noncontributory. Lines, Drains, and Airways None Reviewed lines and needs to be continued: REASONS: Intravenous fluids, Intravenous antibiotics, and Difficulty in obtaining/maintaining access DATA: Diagnostic tests reviewed for today's visit: Most recent labs Most recent imaging CBC, Coags, BMP, Mg, Phos Recent Labs 03/07/25 0606 WBC 6.48 HB 12.8 HCT 39.0 PLT 203 NA 143 K 4.6 CHLOR 108* CO2 27 BUN 10 CREAT 0.71 GLUC 94 CA 9.1 MG 2.1 Liver Function, Amylase, AND Lipase Recent Labs 03/07/25 0606 TPROT 6.5 ALB 3.3 ALT 12* AST 14 ALKPHOS 93 TBILI 0.5 Assessment/Plan Problem List Hydronephrosis with urinary obstruction due to renal calculus (POA: Yes) Right flank pain (POA: Yes) Depression (POA: Yes) Hypothyroidism (POA: Yes) Chronic post-traumatic stress disorder (PTSD) (POA: Yes) Obesity, Class II, BMI 35-39.9 (POA: Yes) Rectal bleeding (POA: Yes) HTN (hypertension) (POA: Yes) HOSPITAL COURSE: Sri Chacon is a 49 year old female presented with past medical history of kidney stones, hypertension, hypothyroidism, IBS, TBI, and depression who presents as a direct admission from [facility] with a diagnosis of hydronephrosis with urinary obstruction due to renal calculus after she presented there with right flank pain. The patient reports that she began experiencing right lower quadrant abdominal pain this am that radiated and became more localized to the right flank accompanied by nausea. She further reports she noticed cecy red rectal bleeding multiple times while wiping for the past day as well. She denies any fever, chills, shortness of breath, chest pain, constipation, or dysuria. In the ER, lab work unremarkable. CT showed a 1.2 cm stone in the right renal collecting system with moderate dilatation of the right ureter with a 0.2 cm stone in the right distal ureter. She was given 1 g IV Rocephin, Dilaudid, and Toradol. She was subsequently transferred here for urology services. She is scheduled for OR today. Principal Problem: 1. Hydronephrosis with urinary obstruction due to renal calculus (POA: Yes) -CT imaging showed 1.2 cm stone in the right renal collecting system with moderate dilatation of the right ureter with a 0.2 cm stone in the right distal ureter. She was given 1 g IV Rocephin and transferred here for urology services. -Continuous cardiac monitoring -IV fluid hydration with LR at 75 mL an hour continuously -N.p.o. pending OR -Consult placed urology, appreciate recs -UA not showing infection -Trend CBC, BMP Active Problems: 2. Right flank pain (POA: Yes) -likely secondary to above. - 0.2 mg IV D (more content not included)... [facility] 03-06-2025 Discharge summary Note Date/Time March 06, 2025 4:39pm [facility] Medical Records Department [address] [place] [address] Emergency Department Summary 03/06/25 MR#: [id number] Acct: [id number] Name: SRI CHACON Rep #:[id number] : 1975 49 From: Hailee Delgado PCP: [...] frequency. Denies any vaginal bleeding. Has tried [id number] Tylenol and ibuprofen with no relief. Came for further evaluation. Does report 1 transient fever when this first started. No other complaints or concerns reported at this time. Had colonoscopy on 01/20/2025?procedure report reviewed. Performed with Dr. Gamez. She found nonbleeding internal hemorrhoids and one 6 to 10 mm polyp of the rectum which was removed. [facility] Medical History Tear of medial meniscus of left knee Migraines History of epilepsy Home Medications ?Medication ?Instructions ?Recorded ?Last Taken ?Type rimegepant 75 mg disintegrating 75 mg PO Q48H 12/16/20 Unknown History tablet (Nurtec ODT) lamotrigine 200 mg tablet,extended 200 mg PO TID 03/1803/05/25 History release 24 hr trazodone 50 mg tablet 50 mg PO DAILY 04/05/21/03/03 History sertraline 50 mg tablet (Zoloft) 50 [...] Patient receives her other outpatient care through [facility] will contact the transfer line. Patient given IV Rocephin in the emergency room. Case discussed with hospitalist at [facility], Dr. Mahoney. She is exceptedto the medicine [...] Cancelled 56.2 Lymph % (Auto) Cancelled 27.9 [place] % (Auto) Cancelled 8.9 Eos % (Auto) [...] Drop Cells Cancelled Ovalocytes Cancelled Stomatocytes Cancelled Martinez-Garnett Bodies Cancelled Ingrid Cells Cancelled Bite Cells [...] Color Urine Clarity Urine pH Ur Specific Magee Urine Protein Urine Glucose (UA) Urine Ketones Urine Occult Blood Urine Nitrite Urine Bilirubin Urine Urobilinogen Ur Leukocyte Esterase Urine RBC Urine WBC Ur Squamous Epith Cells Urine Bacteria Urine Mucus 03/06/25 12:09 WBC Corrected WBC RBC Hgb Hct MCV MCH MCHC RDW Std Deviation RDW Coeff of Kg Plt Count MPV Immature Gran % (Auto) Neut % (Auto) Lymph % (Auto) [place] % (Auto) Eos % (Auto) Baso % [...] Target Cells Tear Drop Cells Ovalocytes Stomatocytes Martinez-Garnett Bodies Ingrid Cells Bite Cells Crenated Cell Acanthocytes (Spur) Rouleaux Schistocytes Sodium Potassium Chloride Carbon Dioxide Anion Gap BUN Creatinine Estim Creat Clear Calc Est GFR (MDRD) Non-Af BUN/Creatinine Ratio Glucose Calcium Total Bilirubin AST ALT Alkaline Phosphatase Total Protein Albumin Globulin Albumin/Globulin Ratio Lipase Urine Color Yellow Urine Clarity Sl. Cloudy Urine pH 6.5 Ur Specific Magee 1.015 Urine Protein 100 H Urine Glucose [...] Matos at the time ofdictation. Reading Location: [facility] Management Discussion w/another healthcare provider: Hospitalist Discharge [...] Provider: Jimenez Cabrera NP Referrals: Jimenez Cabrera NP, POLICY CHANGE CLERKS SUPERVISOR-C [Primary Care Provider] - Print Language: Slovenian Disposition Disposition: Acute Care Hospital Discharge Location: [facility] What to do if you have Problems For any increased pain, shortness of breath, bleeding, nausea or vomiting, chestpain, or any unexpected problems, contact your Primary Care Provider. Call [facility] ([phone]) or report to the closest Emergency Room. Call 911 if necessary. 03/06/25 1611 <Electronically signed by Hailee Weiss DO> Cosigner Signature (if applicable): CC: POLICY CHANGE CLERKS SUPERVISOR-C Jimenez Cabrera ~ Signed ADDENDUM by Dr. Hailee Weiss DO on 03/06/25 at 1639 Chaperoned rectal exam? Patient has some nonthrombosed nonbleeding external hemorrhoids. There is mild tenderness on rectal exam. No obvious fissures. On internal rectal exam there is dark red blood present. 03/06/25 1638<Electronically signed by Hailee Weiss DO> Cosigner Signature (if applicable): cc: ANN Cabrera ~* Signed [facility] Work Phone: [phone]) 675-267107-28-2025 Discharge summary [facility] Medical Records Department [address] [place] [address] Emergency Department Summary 03/06/25 MR#: [id number] Acct: [id number] Name: SRI CHACON Rep #:[id number] : 1975 49 From: Hailee Delgado PCP: ANN Martinez Sta tus:REG ER Location: ED HPI HPI [...] frequency. Denies any vaginal bleeding. Has tried [id number] Tylenol and ibuprofen with no relief. Came for further evaluation. Does report 1 transient fever when this first started. No other complaints or concerns reported at this time. Had colonoscopy on 01/20/2025?procedure report reviewed. Performed with Dr. Gamez. She found nonbleeding internal hemorrhoids and one 6 to 10 mm polyp of the rectum which was removed. [facility] Medical History Tear of medial meniscus [...] Patient receives her other outpatient care through [facility] will contact the transfer line. Patient given IV Rocephin in the emergency room. Case discussed with hospitalist at [facility], Dr. Mahoney. She is exceptedto the medicine [...] Cancelled 56.2 Lymph % (Auto) Cancelled 27.9 [place] % (Auto) Cancelled 8.9 Eos % (Auto) [...] Drop Cells Cancelled Ovalocytes Cancelled Stomatocytes Cancelled Martinez-Garnett Bodies Cancelled Ingrid Cells Cancelled Bite Cells [...] Color Urine Clarity Urine pH Ur Specific Magee Urine Protein Urine Glucose (UA) Urine Ketones Urine Occult Blood Urine Nitrite Urine Bilirubin Urine Urobilinogen Ur Leukocyte Esterase Urine RBC Urine WBC Ur Squamous Epith Cells Urine Bacteria Urine Mucus 03/06/25 12:09 WBC Corrected WBC RBC Hgb Hct MCV MCH MCHC RDW Std Deviation RDW Coeff of Kg Plt Count MPV Immature Gran % (Auto) Neut % (Auto) Lymph % (Auto) [place] % (Auto) Eos % (Auto) Baso % [...] Target Cells Tear Drop Cells Ovalocytes Stomatocytes Martinez-Garnett Bodies Ingrid Cells Bite Cells Crenated Cell Acanthocytes (Spur) Rouleaux Schistocytes Sodium Potassium Chloride Carbon Dioxide Anion Gap BUN Creatinine Estim Creat Clear Calc Est GFR (MDRD) Non-Af BUN/Creatinine Ratio Glucose Calcium Total Bilirubin AST ALT Alkaline Phosphatase Total Protein Albumin Globulin Albumin/Globulin Ratio Lipase Urine Color Yellow Urine Clarity Sl. Cloudy Urine pH 6.5 Ur Specific Magee 1.015 Urine Protein 100 H Urine Glucose [...] Matos at the time ofdictation. [facility] Discussion w/another healthcare provider: Hospitalist Discharge [...] Provider: Jimenez Cabrera NP Referrals: Jimenez Cabrera POLICY CHANGE CLERKS SUPERVISOR, POLICY CHANGE CLERKS SUPERVISOR-C [Primary Care Provider] - Print Language: Slovenian Disposition Disposition: Acute Care Hospital Discharge Location: [facility] What to do if you have Problems For any increased pain, shortness of breath, bleeding, nausea or vomiting, chestpain, or any unexpected problems, contact your Primary Care Provider. Call [facility] ([phone]) or report tothe closest Emergency Room. Call 911 if necessary. 03/06/25 1611 Cosigner Signature (if applicable): CC: POLICY CHANGE CLERKS SUPERVISOR-C Jimenez Cabrera ~ Signed ADDENDUM by Dr. Hailee Weiss DO on 03/06/25 at 1639 Chaperoned rectal exam? Patient has some nonthrombosed nonbleeding external hemorrhoids. There is mild tenderness on rectalexam. No obvious fissures. On internal rectal exam there is dark red blood present. 03/06/25 1638 Cosigner Signature (if applicable): cc: POLICY CHANGE CLERKS SUPERVISORVasquez Cabrera ~* Signed [facility]07-28-2025 Radiology Diagnostic study note [facility] Imaging Services [address] [place] [address] [id number] Abdomen/Pelvis W IV Cont ONLY MR#: [id number] Acct: [id number] Name: SRI CHACON Rep #: [id number] : 1975 F 49 From: Shannan Matos MD PCP: ANN Martinez Status: REG ER Study:Abdomen/Pelvis W IV Cont ONLY Date of E xam: 03/06/25 Exam# [id number] Ordering Dr: Emeli Weiss DO PROCEDURE: ABDOMEN/PELVIS [...] ANN Cabrera; Dr. Hailee Weiss, DO ~ Potato Chip Sorter: Signed [facility]07-28-[facility] History of Present illness Narrative* José Luis Haque APRN.COMMUNITY HEALTH PLANNING DIRECTOR - 03/06/2025 10:32 AM EDT URGENT CARE [facility] Sri Chacon is a 49 year old [...] Nonrheumatic mitral (valve) prolapse 06/15/2017 Seizure disorder ([facility]) last 04/2021 Traumatic brain injury ([facility]) Unspecified asthma(493.90) Unspecified ectopic without intrauterine (HCC) [...] patient was other (comment). [facility] History of Present illness Narrative* Janett Dash LPCC - 03/06/2025 9:00 AM EDT BEHAVIORAL HEALTH IOP (INTENSIVE OUTPATIENT PROGRAM) APPOINTMENT CANCELLATION COMMUNICATION DATE: 03/06/2025 Scheduled Intensive Outpatient Program appointment for Sri Chacon was on 03-06-25 at 0900. Patient canceled the appointment, stating that she wasn't feeling the greatest and plans to return tomorrow. SIGNATURE: ALLYN Caruso PATIENT NAME: Sri Chaocn DATE: March 06, 2025 TIME: 7:49 AM documented in this [facility]Ohio [facility]-2025 NoteHNO ID: [id number] Author: JANETT DASH LPCC Service: Behavioral Health [...] Chacon DATE: March 06, 2025 TIME: 7:[facility] Telephone encounter Note* Telephone Encounter - Carolee [...] than once a day Protocols used: Rectal Ekkbbvic-GOGMF-JU [facility]07-26-2025 Miscellaneous Notes* Telephone Encounter - Carolee [...] than once a day Protocols used: Rectal Nlxbuons-GLVEL-NX documented in this [facility]Ohio [facility]25 History of Present illness Narrative* Frida [...] PATIENT PRESENTS WITH AN IMPLANTABLE OR ATTACHED FRONT DESK REPRESENTATIVE: No RADIOLOGY DEPARTMENT: MR; Exam(s) Completed: Head: Routine Brain. Aromatherapy Administered: No PERIPHERAL IV DATA: Not applicable SIGNED BY: RT Donna(R) March 03, 2025 11:18 AM documented in this encounterOhio [facility] History of Present illness Narrative* Janett Dash LPCC - 03/02/2025 9:00 AM EDT [facility] (VIRTUAL INTENSIVE OUTPATIENT) PROGRESS NOTE SERVICE DATE: 03-02-25 SERVICE TIME : 0900 CO-LEADING THERAPIST: ALLYN Caruso LPAT/ HEAVENLY Medina Virtual platform used: StatSheet This Visit is being conducted with the use of a HIPPA compliant telecommunication system permittinginteractive audio and or video platform. I have communicated my name and active licensure. The patient's identity and physical location wereverified at the time of this visit. Either the patient or their legal front desk representative has been informed of the risks and benefits of -- and alternatives to -- treatment through a remote evaluation andconsents to proceed with the evaluation remotely. BEHAVIOR: [...] and behaviors from the previous day. Discussed whatskills patient used. Patient identified goal they would [...] safety Overall mood is 10 Pain is 10 Weekend planning: Pt shared she struggles to make time to care for self because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 Nerve Blocks - NO) Anticoagulant - Hold Needed: N/A (Not currently on Anticoagulants) Anticoagulant - Currently Taking: None Allergies (relevant): None Scheduling - Mobility (Can Patient independently transfer on/off an OR or Procedure table?): YES (May schedule at any location) Scheduling - Additional Info: None X 3 2 weeks apart Studies: None Functional Congregation: NONE Referrals: No additional considerations at present [...] and validated on 12/15/2024 by Frida Vargas APRN.COMMUNITY HEALTH PLANNING DIRECTOR All prescriptions have been APPROPRIATELY filled. No [...] the patient to chronic pain clinic at [facility] to see if they have other options [...] series Sphenopalatine ganglion block NONE at N/A Angular Js Developer Needed: Nerve Blocks - YES (Exception: Occipital Nerve Blocks - NO) Anticoagulant - Hold Needed: N/A (Not currently on Anticoagulants) Anticoagulant - Currently Taking: None Allergies (relevant): None Scheduling - Mobility (Can Patient independently transfer on/off an OR or Procedure table?): YES (May schedule at any location) Scheduling - Additional Info: None X 3 2 weeks apart Studies: None Functional Congregation: NONE Referrals: No additional considerations at present [...] decision making from today's date. Frida Vargas APRN.COMMUNITY HEALTH PLANNING DIRECTOR Pain Management [facility] * Bonnie Muse MA - 12/15/2024 [...] The patient is nervous/anxious. documented in this encounterOhio State Harding Hospital05-08-2025 NoteHNO ID: [id number] Author: BONNIE MUSE MA Service: ? Author Type: Manager Of Environmental Services Type: Progress Notes Filed: 12/15/2024 12:44 Note [...] Negative for suicidal ideas. The patient is nervous/anxious.[facility]05-05-2025 Telephone encounter Note* Telephone Encounter - Iveth Hernandez APRN.CNP - 12/12/2024 1:46 PM EDT Please see other encounter that addressed this. [facility]05-05-[facility] Miscellaneous Notes* Telephone Encounter - Iveth [...] advise. Veronika Guallpa MA documented in this encounterOhio State Harding Hospital05-05-2025 Telephone encounter Note * Telephone Encounter - Veronika Guallpa MA - 12/12/2024 11:36 AM EDT Pt. Carmelo on vm stating she is trying to figure out what we are going to do with my blood work. No other information given. I am assuming it is for her thyroid. Please advise. Veronika Guallpa MA [facility]05-05-2025 Telephone encounter Note* Telephone Encounter - [...] to exercise currently). Follow low fat diet. [facility]05-05-2025 Miscellaneous Notes* Telephone Encounter - Iveth Hernandez APRN.COMMUNITY HEALTH PLANNING DIRECTOR - 12/12/2024 8:41 AM EDT TSH was [...] Follow low fat diet. documented in this encounterOhio State Harding Hospital04-30-2025 [facility]Tr[facility]04-30-2025 Procedure note* Zhanna Shah APRN.CNP - 12/07/2024 9:38 AM EDT REVIEW OF [...] Mammogram screening? 2018 Last Colonoscopy: 2018 Bernice Garf RN [facility]04-30-2025 Procedure note* Zhanna Shah APRN.CNP - 12/07/2024 9:38 AM EDT REVIEW OF [...] 2018 Bernice Graf RN documented in this encounterOhio State Harding Hospital04-30-2025 History of Present illness Narrative* Zhanna Shah APRN.GEMMA - 12/07/2024 9:30 AM EDT HISTORY AND PHYSICAL Sri Chacon : 1975 REFERRING PHYSICIAN: Iveth Hernandez [address] [place] [id number] CHIEF COMPLAINT: Patient presents with: Consult: Overdue [...] colonoscopy was 12/[address] Rubio at [facility]. Sedation: MAC Impression: - The entire examined [...] edited and updated as necessary. Zhanna Shah APRN.GEMMA documented in this encounterOhio State Harding Hospital04-30-2025 [facility]Tr[facility]04-30-2025 Telephone encounter Note* Telephone Encounter - Veronika Guallpa MA - 12/07/2024 9:10 AM EDT Pt. Carmelo on stating she needs diagnostic mammogram ordered. Please advise. Veronika Guallpa MA [facility]04-30-2025 Miscellaneous Notes* Telephone Encounter - Veronika Guallpa MA - 12/07/2024 9:10 AM EDT Pt. Lm on vm stating she needs diagnostic mammogram ordered. Please advise. Veronika Guallpa MA documented in this encounterOhio State Harding Hospital04-29-2025 Instructions* Patient Instructions* Iveth Hernandez APRN.CNP - 12/06/2024 2:15 PM EDT Pneumonia vaccine Shingles vaccine [facility] [address] [facility] [place] [address] Appointment: [phone] Desk: [phone] documented in this encounterOhio State Harding Hospital04-29-2025 NoteHNO ID: [id number] Author: IVETH HERNANDEZ APRN.CNP Service: ? Author Type: Nurse Practitioner Type: Progress Notes Filed: 12/08/2024 13:16 Note Text: [facility] [place] Iveth Hernandez APRN-COMMUNITY HEALTH PLANNING DIRECTOR [address] [place] [address] Dept Dept. Visit Date: December 06, 2024 Ms.Tina Alise Chacon Date of : 1975 MRN/E #: [id number] Chief Complaint: Patient presents with: Establish Care History of Present Illness Sri is a 49-year-old female with a history of epilepsy, chronic migraines, and hypothyroidism, presenting for an initial visit and evaluation of abdominal pain. I reviewed past medical, surgical, social, and family histories today and updated chart. Allergies, chronic medications, and supplements were also reviewed. Recording using [employer] software for draft documentation of the visit was discussed with the patient/authorized front desk representative; all questions welcomed and answered. Patient/authorized front desk representative agreed to proceed Abdominal Pain: - Persistent abdominal pain described as a twisting and stabbing sensation, x years. - Pain is constant, worsens after eating and drinking. - Denies acid reflux or positional relief. - Occasional nausea; denies severe constipation. - No relief from pxde-hht-wuioghy medications. Chronic Migraines: - Chronic migraines since [...] Prozac. - Last seen by psychiatry at [facility]. Liver Enzyme Elevation: - Recent labs from September showed elevated alkaline phosphatase. - Other liver enzymes (AST, ALT, bilirubin) were normal. 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 - Underwent three surgeries (April 07, June 30, and September 30). - Currently in physical therapy without significant improvement. - Scheduled to see a specialist in [place] for further evaluation. PAST MEDICAL HISTORY Diagnosis [...] Swelling swelling-airway/face Morphine Swelling (more content not included)...[facility] 12-06-2024 History of Present illness Narrative* Iveth Hernandez APRN.GEMMA - 12/06/2024 1:53 PM EDT [facility] [place] Iveth Hernandez BLASTING CONTRACT MAN-COMMUNITY HEALTH PLANNING DIRECTOR [address] [place] [address] Dept Dept. Visit Date: December 06, 2024 Ms.Tina Alise Chacon Date of : 1975 MRN/E #: [id number] Chief Complaint: Patient presents with: Establish Care History of Present Illness Sri is a 49-year-old female with a history of epilepsy, chronic migraines, and hypothyroidism, presenting for an initial visit and evaluation of abdominal pain. I reviewed past medical, surgical, social, and family histories today and updated chart. Allergies, chronic medications, and supplements were also reviewed. Recording using Beisen software for draft documentation of the visit was discussed with the patient/authorized front desk representative; all questions welcomed and answered. Patient/authorized front desk representative agreed to proceed Abdominal Pain: - Persistent abdominal pain described as a twisting and stabbing sensation, x years. - Pain is constant, worsens after eating and drinking. - Denies acid reflux or positional relief. - Occasional nausea; denies severe constipation. - No relief from qccm-xlj-aphnwex medications. Chronic Migraines: - Chronic migraines since [...] Prozac. - Last seen by psychiatry at [facility]. Liver Enzyme Elevation: - Recent labs from September showed elevated alkaline phosphatase. - Other liver enzymes (AST, ALT, bilirubin) were normal. 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 - Underwent three surgeries (April 07, June 30, and September 30). - Currently in physical therapy without significant improvement. - Scheduled to see a specialist in [place] for further evaluation. PAST MEDICAL HISTORY Diagnosis [...] - Planning to consult a specialist in [place] for further evaluation and potential fourth surgery. [...] of Protonix once daily. - Referred to [facility] for further evaluation and potential endoscopy. [...] (around 03/07/2025) for Thyroid problem. Iveth Hernandez APRN.GEMMA, signed on December 06, 2024 1:56 PM documented in this encounterOhio [facility]04-[facility]25 Telephone encounter Note * Telephone Encounter - Juan Cruz RN - 12/02/2024 12:[address] Bean recommended follow up appointment to discuss further interventions. Schedulers scheduled patient for follow up visit. [facility] Work Phone: [phone]) 594-559104-25-2025 Miscellaneous Notes* Telephone Encounter - Juan Cruz RN - 12/02/2024 12:[address] Bean recommended follow up appointment to discuss further interventions. Schedulers scheduled patient for follow up visit. * Telephone Encounter - Zeny Juarez - 12/01/2024 9:42 AM EDT Patient continues to have headaches 02/03, even after injections. Nothing is touching it. Wonders if she should have a brain scan done. Wonders what else can be done? Patient can be reached at [phone] documented in this encounterOhio State [facility]ing Hospital04-24-2025 Telephone encounter Note * Telephone Encounter - Triston Juarezna Anais - 12/01/2024 9:42 AM EDT Patient continues to have headaches 02/03, even after injections. Nothing is touching it. Wonders if she should have a brain scan done. Wonders what else can be done? Patient can be reached at [phone] [facility]03-19-2025 NoteHNO ID: [id number] Author: ANI RAJPUT APRN.COMMUNITY HEALTH PLANNING DIRECTOR Service: ? Author Type: Nurse Practitioner Type: Procedures Filed: 10/26/2024 11:36 Note Text: [facility] Patient name: Sri Chacon Patient Date of : 1975 Today's Date: 10/26/2024 Provider performing procedure: Ani Rajput APRN.COMMUNITY HEALTH PLANNING DIRECTOR Procedure: sphenopalatine block She is here today [...] pending outcome of the SPB done today Ursa protocol documentation / Pre-Procedure Checklist: done at [...] were confirmed After dis (more content not included)...[facility]03-19-2025 Procedure note* Ani Rajput APRN.CNP - 10/26/2024 11:30 AM EDT Procedure(s): SPHENOPALATINE GANGLION BLOCK Pre-Procedure Diagnose(s): Chronic migraine without aura, with intractable migraine, so stated, with status migrainosus Post-Procedure Diagnose(s): Chronic migraine without aura, with intractable migraine, so stated, with status migrainosus [facility] Patient name: Sri Chacon Patient Date of : 1975 Today's Date: 10/26/2024 Provider performing procedure: Ani Rajput APRN.CNP Procedure: sphenopalatine block She is here today [...] disorder (HCC) last 04/2021 Traumatic brain injury ([facility]) Unspecified asthma(493.90) Unspecified ectopic without intrauterine Ectopic [...] pending outcome of the SPB done today Ursa protocol documentation / Pre-Procedure Checklist: done at [...] the patient. Time Started 1133 Time Ended 113 ASSESSMENT/PLAN: 1. Intractable chronic migraine without aura and with status migrainosus - ICD9: 346.73, ICD10: G43.711 SPB #1 - SPHENOPALATINE GANGLION BLOCK - LIDOCAINE 2 % MUCOSAL JELLY IN APPLICATOR - LIDOCAINE HCL 4 % (40 MG/ML) MUCOSAL SOLUTION Ani Rajput APRN.GEMMA Rajput APRN.CNP Pain Management [facility]03-19-[facility] Procedure note* Ani Rajput APRN.GEMMA - 10/26/2024 11:30 AM EDTProcedure(s): SPHENOPALATINE GANGLION BLOCK Pre-Procedure Diagnose(s): Chronic migraine without aura, with intractable migraine, so stated, with status migrainosus Post-Procedure Diagnose(s): Chronic migraine without aura, with intractable migraine, so stated, with status migrainosus [facility] Patient name: Sri Chacon Patient Date of : 1975 Today's Date: 10/26/2024 Provider performing procedure: Ani Rajput APRN.CNP Procedure: sphenopalatine block She is here today [...] pending outcome of the SPB done today Ursa protocol documentation / Pre-Procedure Checklist: done at [...] the patient. Time Started 1133 Time Ended 113 ASSESSMENT/PLAN: 1. Intractable chronic migraine without aura and with status migrainosus - ICD9: 346.73, ICD10: G43.711 SPB #1 - SPHENOPALATINE GANGLION BLOCK - LIDOCAINE 2 % MUCOSAL JELLY IN APPLICATOR - LIDOCAINE HCL 4 % (40 MG/ML) MUCOSAL SOLUTION CARLA Frias APRN.GEMMA Pain Management [facility] documented in this encounterOhio State Harding Hospital03-19-2025 Instructions* Patient Instructions* Ani Rajput APRN.CNP - 10/26/2024 11:16 AM EDT No food or drink for 30-60 minutes following today's procedure or until throat no longer numb Ice and heat as tolerated Activity as tolerated documented in this encounterOhio State Harding Hospital03-19-2025 NoteHNO ID: [id number] Author: CHANELL HERNANDEZ LPN Service: ? Author [...] Negative for suicidal ideas. The patient is nervous/anxious.[facility]03-19-2025 History of Present illness Narrative* Chanell [...] The patient is nervous/anxious. documented in this encounterOhio State Harding Hospital03-13-2025 [facility] History of Present illness Narrative* Ronnie Pettit, [...] 1455 Ronnie Pettit PT documented in this encounterOhio State Harding Hospital03-13-2025 Telephone encounter Note * Telephone Encounter - Ling Simmons RN - 10/20/2024 12:48 PM EDT I sent her to pain management. Were deferring any further pain treatment to that team. Thanks, Irene Randolph DO [facility]03-13-2025 Miscellaneous Notes* Telephone Encounter - Ling [...] be prescribed Liane High documented in this encounterOhio State Harding Hospital03-12-2025 Telephone encounter Note * Telephone Encounter - Liane High - 10/19/2024 4:07 PM EDT During scheduling, patient asked if Dr Randolph was going to be prescribing her any additional medication to help manage her pain. Patient is asking if something stronger than Tramadol can be prescribed Liane High [facility]03-12-2025 [facility] History of Present illness Narrative* Irene Randolph DO - 10/19/2024 3:33 PM EDT Images [...] pain of left knee M25.562 CONSULT TO [facility] FOR PAIN RECOVERY (CHRONIC PAIN) G89.29 Today, [...] Irene Randolph D.O. M.P.H. documented in this encounterOhio State Harding Hospital03-11-2025 [facility]Tr[facility]03-[facility]-2025 History of Present illness Narrative* Ronnie Pettit, [...] 1534 Ronnie Pettit PT documented in this encounterOhio State Harding Hospital03-06-2025 Telephone encounter Note * Telephone Encounter - Ling Simmons RN - 10/13/2024 8:15 AM EST Spoke with patient and relayed message. Patient verbalized understanding. [facility]03-06-20[facility] Miscellaneous Notes* Telephone Encounter - Ling [...] not helping Please advise documented in this encounterOhio State Harding Hospital03-05-2025 Telephone encounter Note * Telephone Encounter [...] 5 days. Authorizing Provider: ELIZABETH KARIMI PA-C [facility]03-05-2025 [facility]03-[facility]-20[facility] History of Present illness Narrative* Ronnie Pettit, [...] appointment. Ronnie Pettit PT documented in this encounterOhio State Harding Hospital03-05-2025 Telephone encounter Note * Telephone Encounter - Ling Simmons RN - 10/12/2024 8:50 AM EST Spoke with patient She is having pain and trouble sleeping and was asking if she could get something to help Has been taking OTC Tylenol and/or ibuprofen, they are not helping Please advise [facility]02[facility] History of Present illness Narrative* Ronnie Pettit, PT - 10/05/2024 2:03 PM EST Images [...] increase T-score by a minimum 5 points. [place] in home exercise program. Increase ROM of [...] Planned: 24 Planned Treatment Interventions: Therapeutic exercise (84579), Neuromuscular re- education (97086), Manual therapy (30440), Therapeutic activities (34419), Self- assisted management (39116), Patient/Family/Caregiver Education, Gait Training (37799) PLAN FOR NEXT VISIT: Assess compliance with [...] 1450 Ronnie Pettit PT documented in this encounterOhio State Harding Hospital02-25-2025 NoteHNO ID: [id number] Author: VINCE RAI MD Service: Anesthesiology Author [...] October 04, 2024 TIME: 2:01 PM CSN: [id number] NoteHNO ID: [id number] Author: ?, ?, ? Service: Pharmacy Author Type: ? Type: Plan of Care Filed: 10/04/2024 11:45 Note Text: PHARMACY BEDSIDE DELIVERY SERVICE Patient Name: Sri Chacon The marked outpatient medications were Filled at: [place] and delivered to the patient's bedside to [...] your Primary Care Provider. Daysi Valadez PAGER: [phone] October 04, 2024 11:45 [id number] Plan of care note* Plan of Care - Daysi Valadez - 10/04/2024 11:45 AM EST Images from the original note were not included. PHARMACY BEDSIDE DELIVERY SERVICE Patient Name: Sri Chacon The marked outpatient medications were Filled at: [place] and delivered to the patient's bedside to [...] your Primary Care Provider. Daysi Valadez PAGER: [phone] October 04, 2024 11:45 AM [facility]02-25-2025 Miscellaneous Notes* Plan of Care - [...] your Primary Care Provider. Daysi Valadez PAGER: [phone] October 04, 2024 11:45 AM documented in this encounterOhio State Harding Hospital02-25-2025 NoteHNO ID: [id number] Author: DEYVI COTO APRN.ELECTRONIC PAGINATION SYSTEM OPERATOR Service: Anesthesiology Author Type: Nurse Fire Protection Engineer Type: Anesthesia Procedure Notes Filed: 10/04/2024 10:03 Note Text: ANESTHESIOLOGY PROCEDURE NOTE Airway General Information Procedure Start Time/Medication Administration: 10/04/2024 9:52 AM Procedure End Time: 10/04/2024 9:52 AM Patient location during procedure: OR Timeout Performed Pre-procedure: timeout performed Consent Obtained: Yes 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 Staffing ELECTRONIC PAGINATION SYSTEM OPERATOR: Deyvi Coto APRN.ELECTRONIC PAGINATION SYSTEM OPERATOR Performed by: JUN Indications and Patient Condition Indications for airway management: anesthesia Preoxygenated: yes anesthesia circuit Patient position: sniffing Method: asleep Cricoid Pressure: No Final Airway Details Final airway type: supraglottic airway Number of attempts at approach: 1 Final Supraglottic Airway: i-gel Size 3 Seal Adequate: yes SIGNATURE: Deyvi Coto APRN.ELECTRONIC PAGINATION SYSTEM OPERATOR PATIENT NAME: Sri Chacon DATE: October 04, 2024 TIME: 10:03 AM CSN: [id number] Surgery Surgical operation note* Operative Report - Irene Randolph DO - 10/04/2024 9:47 AM EST OPERATIVE/PROCEDURE REPORT LOG ID: [id number] SURGERY/PROCEDURE DATE: 10/04/2024 INCISION/PROCEDURE START TIME: 10:04 AM INCISION CLOSE/PROCEDURE END TIME: 10:19 AM SURGEON(S)/PROCEDURALIST(S) AND SENIOR ENERGY CONSULTANT(S): Surgeons and Role: * Irene Randolph DO - Primary Physician Manager Heart: Elizabeth Karimi PA-C Registered Nurse Grinder Machine Setter: Dania Moore RN SURGERY/PROCEDURE(S): Left knee evalution [...] pain numbness ting or further issues arise Alexison disclaimer comment: Please note this report has [...] DATE: October 04, 2024 TIME: 10:31 AM [facility] Surgical operation note* Operative Report - Irene Randolph DO - 10/04/2024 9:47 AM EST OPERATIVE/PROCEDURE REPORT LOG ID: [id number] SURGERY/PROCEDURE DATE: 10/04/2024 INCISION/PROCEDURE START TIME: 10:04 AM INCISION CLOSE/PROCEDURE END TIME: 10:19 AM SURGEON(S)/PROCEDURALIST(S) AND SENIOR ENERGY CONSULTANT(S): Surgeons and Role: * Irene Randolph DO - Primary Physician Manager Heart: Elizabeth Karimi PA-C Registered Nurse Grinder Machine Setter: Dania Moore RN SURGERY/PROCEDURE(S): Left knee evalution [...] 2024 TIME: 10:31 AM documented in this encounterOhio State Harding Hospital02-25-2025 Nurse Note* Marion Lima RN - [...] called to bedside at completion of procedure. [facility]02-25-[facility] Nurse Note* Marion Lima RN - [...] at completion of procedure. documented in this encounterOhio State Harding Hospital02-25-2025 NoteHNO ID: [id number] Author: VINCE RAI MD Service: Anesthesiology Author [...] October 04, 2024 TIME: 8:52 AM CSN: [id number] Attending History and physical note* Irene Randolph [...] Self This is a virtual visit using [employer] Zoom Video Visit. It required patient- provider interaction for the medical decision making as documented below. I have communicated my name and active licensure. The patient's identity and physical location wereverified at the time of this visit. Either the patient or their legal front desk representative has been informed of the risks [...] large neck Non-male patient STOP-Bang Score: 0 [id number] Score: Age: <65 Sex: female CHF history: No Hypertension history: No Stroke/TIA/thromboembolism history: No Vascular disease history: No Diabetes history: No [id number]-GEZv Score: 1 ANESTHESIA FINDINGS: Intubation History: No [...] additional comments: *PACC/TCI - anesthesia choice. Beta Red Monitoring Plan Post Procedure Analgesic Plan Prepared [...] requiring medication, no history of angina, CHF, TN, cardiac surgery or stents. Denies rest pain, gangrene or revascularization/amputation for PVD. No history of cardiovascular symptoms or problems. GI: No history of GI symptoms or problems. No history of esophageal varices, recent ascites, or ETOH greater than 2 drinks per day. : No history of dysuria, frequency or incontinence,, stones or chronic kidney disease BEHAVIORAL INTERVENTION SPECIALIST: Negative for abnormal vaginal bleeding, abnormal vaginal [...] original vaccine, age 12+ yr, monovalent (PFIZER- BIONTIntucell - PURPLE TOP) 12/03/2020 Imm Admin: COVID-19 original vaccine, age 12+ yr, monovalent ([employer]akes- BIONTECH - PURPLE TOP) PAST MEDICAL HISTORY [...] APRN.CNP PATIENT NAME: Sri Chacon DATE: 09/27/2024 [facility] History and physical note* Irene Randolph [...] Self This is a virtual visit using A[employer]om Video Visit. It required patient- provider interaction for the medical decision making as documented below. I have communicated my name and active licensure. The patient's identity and physical location wereverified at the time of this visit. Either the patient or their legal front desk representative has been informed of the risks [...] large neck Non-male patient STOP-Bang Score: 0 [id number] Score: Age: <65 Sex: female CHF history: No Hypertension history: No Stroke/TIA/thromboembolism history: No Vascular disease history: No Diabetes history: No KIP2IY6-KUZz Score: 1 ANESTHESIA FINDINGS: Intubation History: No [...] additional comments: *PACC/TCI - anesthesia choice. Beta Red Monitoring Plan Post Procedure Analgesic Plan Prepared [...] requiring medication, no history of angina, CHF, TN, cardiac surgery or stents. Denies rest pain, gangrene or revascularization/amputation for PVD. No history of cardiovascular symptoms or problems. GI: No history of GI symptoms or problems. No history of esophageal varices, recent ascites, or ETOH greater than 2 drinks per day. : No history of dysuria, frequency or incontinence,, stones or chronic kidney disease BEHAVIORAL INTERVENTION SPECIALIST: Negative for abnormal vaginal bleeding, abnormal vaginal [...] Immunization Dates Current Care Gaps Covid-19 Vaccine (2023- season) Overdue since 04/10/2024 12/24/2020 Imm Admin: COVID-19 original vaccine, age 12+ yr, monovalent (PFIZER- BIONTIntucell - PURPLE TOP) 12/03/2020 Imm Admin: COVID-19 [...] Sri Chacon DATE: 09/27/2024 documented in this encounterOhio State Harding Hospital02-18-2025 History and physical note * Marcy [...] Self This is a virtual visit using [employer] Zoom Video Visit. It required patient- provider interaction for the medical decision making as documented below. I have communicated my name and active licensure. The patient's identity and physical location wereverified at the time of this visit. Either the patient or their legal front desk representative has been informed of the risks [...] large neck Non-male patient STOP-Bang Score: 0 [id number] Score: Age: <65 Sex: female CHF history: No Hypertension history: No Stroke/TIA/thromboembolism history: No Vascular disease history: No Diabetes history: No WBR8BI0-VHZr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 without aura and without status migrainosus- Primary Chronic migraine without aura, with intractable migraine, so stated, without mention of status migrainosus Medication overuse headache Drug induced headache, not elsewhere classified documented in this encounter [facility]Evalun[facility] [place] [facility]* Diagnosis Unspecified migraine- Primary documented in this encounter [facility]Eval[facility] [place] [facility]* Diagnosis Sprain of right ankle, unspecified ligament, initial encounter- Primary documented in this encounter [facility] HospitalEvalunem[facility], [place] note* Diagnosis Sprain of right ankle, unspecified ligament, initial encounter- Primary Peroneal tendinitis of right lower extremity Other enthesopathy of ankle and tarsus Acute right ankle [facility] [place] [facility] Diagnosis Sprain of right ankle, unspecified ligament, initial encounter- Primary [facility] [place] [facility]* Diagnosis Vitamin D deficiency- Primary Unspecified vitamin D deficiency Seizure (HCC) Other convulsions documented in this encounter [facility] note* Diagnosis Sore throat- Primary Acute pharyngitis URI with cough and congestion documented in this encounter [facility] note* Diagnosis Sprain of right ankle, unspecified ligament, initial encounter documented in this encounter [facility] note* Diagnosis Acute right ankle pain [facility] [place] [facility]* Diagnosis Acute right ankle pain [facility] [place] [facility]* Diagnosis Onset Date Resolution Status Lumbar pain noneactive Left knee pain noneactive [facility] Work Phone: Evaluation note* Diagnosis Onset Date Resolution Status Lumbar pain noneactive Left knee pain noneactive Left knee pain acute [facility] Work Phone: Evaluation note* Diagnosis Onset Date Resolution Status Lumbar pain noneactive Left knee pain noneactive Left knee pain acute Left knee pain acute Malingering acute Left knee pain acute Tear of medial meniscus of left knee acute [facility] Work Phone: Evaluation note* Diagnosis Left knee pain, unspecified chronicity- Primary documented in this encounter [facility] note* Diagnosis Left leg pain Pain in limb documented in this encounter [facility] note* Diagnosis Chronic pain of left knee- Primary Pain in joint, lower leg documented in this encounter [facility] note* Diagnosis Taste sense altered- Primary Disturbances of sensation of smell and taste Chills Chills (without fever) documented in this encounter [facility] note* Diagnosis Chronic pain of left knee- Primary Pain in joint, lower leg Chondromalacia of left patella Chondromalacia of patella Tear of medial meniscus of left knee, current, unspecified tear type, initial encounter documented in this encounter [facility] note* Diagnosis Tear of medial meniscus of left knee, current, unspecified tear type, initial encounter- Primary Tear of medial meniscus of left knee, current, unspecified tear type, initial encounter [facility] [place] [facility]* Diagnosis Tear of medial meniscus of left knee, current, unspecified tear type, initial encounter- Primary Tear of medial meniscus of left knee, current, unspecified tear type, initial encounter documented in this encounter [facility] note* Diagnosis Preop examination- Primary Preoperative examination, unspecified Intractable chronic migraine without aura and with status migrainosus Chronic migraine without aura, with intractable migraine, so stated, with status migrainosus Tear of medial meniscus of left knee, current, unspecified tear type, initial encounter * Assessment & Plan Note - Marcy Salinas APRN.CNP - 04/04/2024 10:40 AM EDT Associated Problem(s): [...] seizures at visit [facility] Left knee pain, unspecified chronicity [...] [facility] Diagnosis Bilateral sciatica Sciatica Acute bilateral low back pain with bilateral sciatica Preop examination- Primary Preoperative examination, unspecified Intractable chronic migraine without aura and with status migrainosus Chronic migraine without aura, with intractable migraine, so stated, with status migrainosus [facility] Preop examination- Primary Preoperative examination, unspecified Intractable chronic migraine without aura and with status migrainosus Chronic migraine without aura, with intractable migraine, so stated, with status migrainosus Tear of medial meniscus of left knee, current, unspecified tear type, initial encounter- Primary S/P arthroscopy of knee Other postprocedural status [facility] Diagnosis Right hand pain Pain [...] knee, initial encounter [facility] [place] [facility]* Diagnosis Preop examination- Primary Preoperative examination, unspecified Intractable chronic migraine without aura and with status migrainosus Chronic migraine without aura, with intractable migraine, so stated, with status migrainosus Chronic pain of left knee- Primary Pain in joint, lower leg Acute medial meniscus tear of left knee, initial encounter [facility] [place] [facility]* Diagnosis Preop examination- Primary Preoperative examination, unspecified Intractable chronic migraine without aura and with status migrainosus Chronic migraine without aura, with intractable migraine, so stated, with status migrainosus Fibrosis of left knee joint- Primary S/P arthroscopy of knee Other postprocedural status [facility] [place] [facility]* Diagnosis Preop examination- Primary Preoperative examination, unspecified Intractable chronic migraine without aura and with status migrainosus Chronic migraine without aura, with intractable migraine, so stated, with status migrainosus Fibrosis of left knee joint- Primary Fibrosis of left knee joint [facility] [place] [facility]* Diagnosis Preop [...] noted by patient [facility] Preop examination- Primary Preoperative examination, unspecified Intractable chronic migraine without aura and with status migrainosus Chronic migraine without aura, with intractable migraine, so stated, with status migrainosus 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 disorder Pre-op evaluation- Primary Preoperative examination, unspecified Hypothyroidism, unspecified type Mood disorder (HCC) Unspecified episodic mood disorder [facility] [place] [facility]* Diagnosis Preop examination- Primary Preoperative examination, unspecified Intractable chronic migraine without aura and with status migrainosus Chronic migraine without aura, with intractable migraine, so stated, with status migrainosus Pre-op evaluation- Primary Preoperative examination, unspecified Hypothyroidism, unspecified type Mood disorder (HCC) Unspecified episodic mood disorder Postoperative pain Other acute postoperative pain [facility] [place] [facility]* Diagnosis Preop [...] psychotic features (HCC) documented [facility] [place] [facility]* Diagnosis Preop [...] knee, initial encounter [facility] [place] [facility]* Diagnosis Preop examination- [...] type, initial encounter documented [facility] this encounter [facility] [place] note* Diagnosis Preop examination- [...] Other postprocedural status documented [facility] [place] [facility]* Diagnosis Preop [...] ligament, initial encounter documented [facility] this [facility] [place] note* Diagnosis Preop examination- [...] hypothyroidism Ton thyroiditis documented [facility] this [facility] [place] note* Diagnosis Preop examination- [...] knee, initial encounter documented in this encounter [facility] note* Diagnosis Preop examination- Primary Preoperative [...] knee, initial encounter documented in this encounter [facility] note* Diagnosis Preop examination- Primary Preoperative [...] knee, initial encounter [facility] this [facility] [place] [facility]* Diagnosis Preop examination- Primary Preoperative examination, unspecified Intractable chronic migraine without aura and with status migrainosus Chronic migraine without aura, with intractable migraine, so stated, with status migrainosus Pre-op evaluation- Primary Preoperative examination, unspecified Hypothyroidism, unspecified type Mood disorder (HCC) Unspecified episodic mood disorder Overweight (BMI 25.0-29.9) Overweight documented in this encounter [facility] note* Diagnosis Preop examination- Primary Preoperative [...] of status migrainosus [facility] [place] [facility]* Diagnosis Preop [...] joint, lower leg [facility] [place] [facility]* Diagnosis Preop [...] of status migrainosus [facility] [place] [facility]* Diagnosis Preop [...] knee, initial encounter [facility] [place] [facility]* Diagnosis Preop [...] of status migrainosus documented in this encounter [facility] note* Diagnosis Preop examination- Primary Preoperative examination, unspecified Intractable chronic migraine without aura and with status migrainosus Chronic migraine without aura, with intractable migraine, so stated, with status migrainosus Pre-op evaluation- Primary Preoperative examination, unspecified Hypothyroidism, unspecified type Mood disorder (HCC) Unspecified episodic mood disorder Chronic pain of left knee- Primary Pain in joint, lower leg documented in this encounter [facility] note* Diagnosis Preop examination- Primary Preoperative [...] joint, lower leg documented in this encounter [facility] note* Diagnosis Preop examination- Primary Preoperative [...] with status migrainosus documented in this encounter [facility] note* Diagnosis Preop examination- Primary Preoperative [...] knee joint, left documented in this encounter [facility] note* Diagnosis Preop examination- Primary Preoperative [...] with status migrainosus [facility] Diagnosis Preop examination- Primary Preoperative [...] with status migrainosus [facility] examination- Primary Preoperative [...] with status migrainosus [facility] Diagnosis Preop examination- Primary Preoperative [...] with status migrainosus [facility] [place] [facility]* Diagnosis Preop [...] with status migrainosus [facility] [place] [facility]* Diagnosis Preop examination- [...] with status migrainosus [facility] [place] [facility]* Diagnosis Preop [...] with status migrainosus [facility] [place] [facility]* Diagnosis Preop [...] with status migrainosus [facility] [place] [facility]* Diagnosis Preop [...] with status migrainosus [facility] [place] [facility]* Diagnosis Preop [...] with status migrainosus [facility] [place] [facility]* Diagnosis Preop [...] with status migrainosus [facility] [place] [facility]* Diagnosis Preop [...] with status migrainosus [facility] [place] [facility]* Diagnosis Preop [...] with status migrainosus [facility] [place] [facility]* Diagnosis Preop examination- Primary Preoperative examination, unspecified Intractable chronic migraine without aura and with status migrainosus Chronic migraine without aura, with intractable migraine, so stated, with status migrainosus Pre-op evaluation- Primary Preoperative examination, unspecified Hypothyroidism, unspecified type Mood disorder Unspecified episodic mood disorder Left knee pain, unspecified chronicity documented [facility] this [facility] [place] [facility]* Diagnosis Preop [...] knee joint, left documented in this encounter [facility] note* Diagnosis Preop examination- Primary Preoperative examination, unspecified Intractable chronic migraine without aura and with status migrainosus Chronic migraine without aura, with intractable migraine, so stated, with status migrainosus Pre-op evaluation- Primary Preoperative examination, unspecified Hypothyroidism, unspecified type Mood disorder Unspecified episodic mood disorder Encounter for screening mammogram for breast cancer Abnormal mammogram of right breast documented in this encounter [facility] note* Diagnosis Preop examination- Primary Preoperative examination, unspecified Intractable chronic migraine without aura and with status migrainosus Chronic migraine without aura, with intractable migraine, so stated, with status migrainosus Pre-op evaluation- Primary Preoperative examination, unspecified Hypothyroidism, unspecified type Mood disorder Unspecified episodic mood disorder Encounter for screening mammogram for breast cancer Abnormal mammogram of right breast documented in this encounter [facility] note* Diagnosis Preop examination- Primary Preoperative [...] Dysphagia, unspecified type documented in this encounter [facility] note* Diagnosis Preop examination- Primary Preoperative [...] Chronic pain syndrome documented in this encounter [facility] note* Diagnosis Preop examination- Primary Preoperative examination, unspecified Intractable chronic migraine without aura and with status migrainosus Chronic migraine without aura, with intractable migraine, so stated, with status migrainosus Pre-op evaluation- Primary Preoperative examination, unspecified Hypothyroidism, unspecified type Mood disorder Unspecified episodic mood disorder Left knee pain, unspecified chronicity- Primary documented in this encounter [facility] note* Diagnosis Preop examination- Primary Preoperative [...] for breast cancer documented in this encounter [facility] note* Diagnosis Preop examination- Primary Preoperative [...] for breast cancer documented in this encounter [facility] note* Diagnosis Preop examination- Primary Preoperative [...] Generalized anxiety disorder documented in this encounter [facility] note* Diagnosis Preop examination- Primary Preoperative [...] traumatic brain injury [facility] [place] [facility]* Diagnosis Preop examination- Primary Preoperative examination, unspecified Intractable chronic migraine without aura and with status migrainosus Chronic migraine without aura, with intractable migraine, so stated, with status migrainosus Pre-op evaluation- Primary Preoperative examination, unspecified Hypothyroidism, unspecified type Mood disorder Unspecified episodic mood disorder Chronic migraine with aura without status migrainosus, not intractable [facility] [place] [facility]* Diagnosis Preop [...] rectum and anus documented [facility] [place] [facility]* Diagnosis Preop examination- Primary Preoperative examination, unspecified Intractable chronic migraine without aura and with status migrainosus Chronic migraine without aura, with intractable migraine, so stated, with status migrainosus Pre-op evaluation- Primary Preoperative examination, unspecified Hypothyroidism, unspecified type Mood disorder Unspecified episodic mood disorder Hydronephrosis with urinary obstruction due to renal calculus- Primary Right flank pain Abdominal pain, unspecified site Hydronephrosis with urinary obstruction due to renal calculus Obesity, Class II, BMI 35-39.9 Obesity, unspecified Right flank pain Abdominal pain, unspecified site Rectal bleeding Hemorrhage of rectum and anus Chronic post-traumatic stress disorder (PTSD) Depression Depressive disorder, not elsewhere classified HTN (hypertension) Unspecified essential hypertension Hypothyroidism Unspecified hypothyroidism Right ureteral calculus Calculus of ureter Ureteral calculi- Primary Calculus of ureter [facility] [place] [facility]* Diagnosis Preop examination- Primary Preoperative examination, unspecified Intractable chronic migraine without aura and with status migrainosus Chronic migraine without aura, with intractable migraine, so stated, with status migrainosus Pre-op evaluation- Primary Preoperative examination, unspecified Hypothyroidism, unspecified type Mood disorder Unspecified episodic mood disorder Chronic migraine with aura without status migrainosus, not intractable Complex regional pain syndrome type 1 of left lower extremity [facility] [place] note* Diagnosis Preop examination- Primary Preoperative examination, unspecified Intractable chronic migraine without aura and with status migrainosus Chronic migraine without aura, with intractable migraine, so stated, with status migrainosus Pre-op evaluation- Primary Preoperative examination, unspecified Hypothyroidism, unspecified type Mood disorder Unspecified episodic mood disorder Hydronephrosis with urinary obstruction due to renal calculus- Primary Right flank pain Abdominal pain, unspecified site Hydronephrosis with urinary obstruction due to renal calculus Obesity, Class II, BMI 35-39.9 Obesity, unspecified Right flank pain Abdominal pain, unspecified site Rectal bleeding Hemorrhage of rectum and anus Chronic post-traumatic stress disorder (PTSD) Depression Depressive disorder, not elsewhere classified HTN (hypertension) Unspecified essential hypertension Hypothyroidism Unspecified hypothyroidism Right ureteral calculus Calculus of ureter Hypothyroidism, unspecified type documented [facility] this [facility] [place] [facility]* Diagnosis Preop examination- Primary Preoperative examination, unspecified Intractable chronic migraine without aura and with status migrainosus Chronic migraine without aura, with intractable migraine, so stated, with status migrainosus Pre-op evaluation- Primary Preoperative examination, unspecified Hypothyroidism, unspecified type Mood disorder Unspecified episodic mood disorder Hydronephrosis with urinary obstruction due to renal calculus- Primary Right flank pain Abdominal pain, unspecified site Hydronephrosis with urinary obstruction due to renal calculus Obesity, Class II, BMI 35-39.9 Obesity, unspecified Right flank pain Abdominal pain, unspecified site Rectal bleeding Hemorrhage of rectum and anus Chronic post-traumatic stress disorder (PTSD) Depression Depressive disorder, not elsewhere classified HTN (hypertension) Unspecified essential hypertension Hypothyroidism Unspecified hypothyroidism Right ureteral calculus Calculus of ureter Ureteral calculi- Primary Calculus of ureter documented [facility] this [facility] [place] note* Diagnosis Preop examination- Primary Preoperative examination, unspecified Intractable chronic migraine without aura and with status migrainosus Chronic migraine without aura, with intractable migraine, so stated, with status migrainosus Pre-op evaluation- Primary Preoperative examination, unspecified Hypothyroidism, unspecified type Mood disorder Unspecified episodic mood disorder Hydronephrosis with urinary obstruction due to renal calculus- Primary Right flank pain Abdominal pain, unspecified site Hydronephrosis with urinary obstruction due to renal calculus Obesity, Class II, BMI 35-39.9 Obesity, unspecified Right flank pain Abdominal pain, unspecified site Rectal bleeding Hemorrhage of rectum and anus Chronic post-traumatic stress disorder (PTSD) Depression Depressive disorder, not elsewhere classified HTN (hypertension) Unspecified essential hypertension Hypothyroidism Unspecified hypothyroidism Right ureteral calculus Calculus of ureter Chronic pain of left knee- Primary Pain in joint, lower leg Arthrofibrosis of knee joint, left Ureteral calculi Calculus of ureter [facility] [place] [facility]* Diagnosis Preop examination- Primary Preoperative examination, unspecified Intractable chronic migraine without aura and with status migrainosus Chronic migraine without aura, with intractable migraine, so stated, with status migrainosus Pre-op evaluation- Primary Preoperative examination, unspecified Hypothyroidism, unspecified type Mood disorder Unspecified episodic mood disorder Hydronephrosis with urinary obstruction due to renal calculus- Primary Right flank pain Abdominal pain, unspecified site Hydronephrosis with urinary obstruction due to renal calculus Obesity, Class II, BMI 35-39.9 Obesity, unspecified Right flank pain Abdominal pain, unspecified site Rectal bleeding Hemorrhage of rectum and anus Chronic post-traumatic stress disorder (PTSD) Depression Depressive disorder, not elsewhere classified HTN (hypertension) Unspecified essential hypertension Hypothyroidism Unspecified hypothyroidism Right ureteral calculus Calculus of ureter Generalized abdominal pain- Primary Abdominal pain, generalized Dysphagia, unspecified type Chronic superficial gastritis without bleeding Atrophic gastritis without mention of hemorrhage Chronic abdominal pain Abdominal pain, unspecified site Gastroesophageal reflux disease with esophagitis, unspecified whether hemorrhage Irritable bowel syndrome with diarrhea Irritable bowel syndrome Hemorrhoids, internal Internal hemorrhoids without mention of complication Rectal bleeding Hemorrhage of rectum and anus Nausea Nausea alone Ureteral calculi Calculus of ureter [facility] [place] [facility]* Diagnosis Preop examination- Primary Preoperative examination, unspecified Intractable chronic migraine without aura and with status migrainosus Chronic migraine without aura, with intractable migraine, so stated, with status migrainosus Pre-op evaluation- Primary Preoperative examination, unspecified Hypothyroidism, unspecified type Mood disorder Unspecified episodic mood disorder Hydronephrosis with urinary obstruction due to renal calculus- Primary Right flank pain Abdominal pain, unspecified site Hydronephrosis with urinary obstruction due to renal calculus Obesity, Class II, BMI 35-39.9 Obesity, unspecified Right flank pain Abdominal pain, unspecified site Rectal bleeding Hemorrhage of rectum and anus Chronic post-traumatic stress disorder (PTSD) Depression Depressive disorder, not elsewhere classified HTN (hypertension) Unspecified essential hypertension Hypothyroidism Unspecified hypothyroidism Right ureteral calculus Calculus of ureter Preop testing Preoperative examination, unspecified Generalized abdominal pain Abdominal pain, generalized Rectal bleeding Hemorrhage of rectum and anus Irritable bowel syndrome with diarrhea Irritable bowel syndrome Chronic superficial gastritis without bleeding Atrophic gastritis without mention of hemorrhage Ureteral calculi Calculus of ureter documented in this encounter [facility] [place] note* Diagnosis Preop examination- Primary Preoperative examination, unspecified Intractable chronic migraine without aura and with status migrainosus Chronic migraine without aura, with intractable migraine, so stated, with status migrainosus Pre-op evaluation- Primary Preoperative examination, unspecified Hypothyroidism, unspecified type Mood disorder Unspecified episodic mood disorder Right flank pain Abdominal pain, unspecified site Hydronephrosis with urinary obstruction due to renal calculus Obesity, Class II, BMI 35-39.9 Obesity, unspecified Right flank pain Abdominal pain, unspecified site Rectal bleeding Hemorrhage of rectum and anus Chronic post-traumatic stress disorder (PTSD) Depression Depressive disorder, not elsewhere classified HTN (hypertension) Unspecified essential hypertension Hypothyroidism Unspecified hypothyroidism Right ureteral calculus Calculus of ureter Calculus of gallbladder without cholecystitis without obstruction- Primary Calculus of gallbladder without mention of cholecystitis or obstruction Nausea Nausea alone Generalized abdominal pain Abdominal pain, generalized Complex regional pain syndrome type 1 of left lower extremity- Primary Chronic pain syndrome Chronic migraine with aura without status migrainosus, not intractable Chronic pain of left knee Pain in joint, lower leg Medication management Encounter for long-term (current) use of other medications documented in this encounter [facility] note* Diagnosis Preop examination- Primary Preoperative examination, unspecified Intractable chronic migraine without aura and with status migrainosus Chronic migraine without aura, with intractable migraine, so stated, with status migrainosus Pre-op evaluation- Primary Preoperative examination, unspecified Hypothyroidism, unspecified type Mood disorder Unspecified episodic mood disorder Right flank pain Abdominal pain, unspecified site Hydronephrosis with urinary obstruction due to renal calculus Obesity, Class II, BMI 35-39.9 Obesity, unspecified Right flank pain Abdominal pain, unspecified site Rectal bleeding Hemorrhage of rectum and anus Chronic post-traumatic stress disorder (PTSD) Depression Depressive disorder, not elsewhere classified HTN (hypertension) Unspecified essential hypertension Hypothyroidism Unspecified hypothyroidism Right ureteral calculus Calculus of ureter Hydronephrosis with urinary obstruction due to ureteral calculus- Primary Hypothyroidism, unspecified type Primary hypertension Unspecified essential hypertension Vitamin D deficiency Unspecified vitamin D deficiency Screening for diabetes mellitus Hyperglycemia Other abnormal glucose Complex regional pain syndrome type 1 of left lower extremity- Primary Chronic pain syndrome Chronic migraine with aura without status migrainosus, not intractable Chronic pain of left knee Pain in joint, lower leg Medication management Encounter for long-term (current) use of other medications documented in this encounter [facility] note* Diagnosis Preop examination- Primary Preoperative examination, unspecified Intractable chronic migraine without aura and with status migrainosus Chronic migraine without aura, with intractable migraine, so stated, with status migrainosus Pre-op evaluation- Primary Preoperative examination, unspecified Hypothyroidism, unspecified type Mood disorder Unspecified episodic mood disorder Right flank pain Abdominal pain, unspecified site Hydronephrosis with urinary obstruction due to renal calculus Obesity, Class II, BMI 35-39.9 Obesity, unspecified Right flank pain Abdominal pain, unspecified site Rectal bleeding Hemorrhage of rectum and anus Chronic post-traumatic stress disorder (PTSD) Depression Depressive disorder, not elsewhere classified HTN (hypertension) Unspecified essential hypertension Hypothyroidism Unspecified hypothyroidism Right ureteral calculus Calculus of ureter Ureteral calculi- Primary Calculus of ureter documented in this encounter [facility] note* Diagnosis Preop examination- Primary Preoperative examination, unspecified Intractable chronic migraine without aura and with status migrainosus Chronic migraine without aura, with intractable migraine, so stated, with status migrainosus Pre-op evaluation- Primary Preoperative examination, unspecified Hypothyroidism, unspecified type Mood disorder Unspecified episodic mood disorder Right flank pain Abdominal pain, unspecified site Hydronephrosis with urinary obstruction due to renal calculus Obesity, Class II, BMI 35-39.9 Obesity, unspecified Right flank pain Abdominal pain, unspecified site Rectal bleeding Hemorrhage of rectum and anus Chronic post-traumatic stress disorder (PTSD) Depression Depressive disorder, not elsewhere classified HTN (hypertension) Unspecified essential hypertension Hypothyroidism Unspecified hypothyroidism Right ureteral calculus Calculus of ureter Kidney stone- Primary Calculus of kidney documented in this encounter [facility] note* Diagnosis Preop examination- Primary Preoperative examination, unspecified Intractable chronic migraine without aura and with status migrainosus Chronic migraine without aura, with intractable migraine, so stated, with status migrainosus Pre-op evaluation- Primary Preoperative examination, unspecified Hypothyroidism, unspecified type Mood disorder Unspecified episodic mood disorder Right flank pain Abdominal pain, unspecified site Hydronephrosis with urinary obstruction due to renal calculus Obesity, Class II, BMI 35-39.9 Obesity, unspecified Right flank pain Abdominal pain, unspecified site Rectal bleeding Hemorrhage of rectum and anus Chronic post-traumatic stress disorder (PTSD) Depression Depressive disorder, not elsewhere classified HTN (hypertension) Unspecified essential hypertension Hypothyroidism Unspecified hypothyroidism Right ureteral calculus Calculus of ureter Vitamin D deficiency Unspecified vitamin D deficiency documented in this encounter [facility] [place] note* Diagnosis Preop examination- Primary Preoperative examination, unspecified Intractable chronic migraine without aura and with status migrainosus Chronic migraine without aura, with intractable migraine, so stated, with status migrainosus Pre-op evaluation- Primary Preoperative examination, unspecified Hypothyroidism, unspecified type Mood disorder Unspecified episodic mood disorder Right flank pain Abdominal pain, unspecified site Hydronephrosis with urinary obstruction due to renal calculus Obesity, Class II, BMI 35-39.9 Obesity, unspecified Right flank pain Abdominal pain, unspecified site Rectal bleeding Hemorrhage of rectum and anus Chronic post-traumatic stress disorder (PTSD) Depression Depressive disorder, not elsewhere classified HTN (hypertension) Unspecified essential hypertension Hypothyroidism Unspecified hypothyroidism Right ureteral calculus Calculus of ureter Right ureteral calculus Calculus of ureter documented in this encounter [facility] note* Diagnosis Preop examination- Primary Preoperative examination, unspecified Intractable chronic migraine without aura and with status migrainosus Chronic migraine without aura, with intractable migraine, so stated, with status migrainosus Pre-op evaluation- Primary Preoperative examination, unspecified Hypothyroidism, unspecified type Mood disorder Unspecified episodic mood disorder Right flank pain Abdominal pain, unspecified site Hydronephrosis with urinary obstruction due to renal calculus Obesity, Class II, BMI 35-39.9 Obesity, unspecified Right flank pain Abdominal pain, unspecified site Rectal bleeding Hemorrhage of rectum and anus Chronic post-traumatic stress disorder (PTSD) Depression Depressive disorder, not elsewhere classified HTN (hypertension) Unspecified essential hypertension Hypothyroidism Unspecified hypothyroidism Right ureteral calculus Calculus of ureter Calculus of gallbladder without cholecystitis without obstruction Calculus of gallbladder without mention of cholecystitis or obstruction Nausea Nausea alone Generalized abdominal pain Abdominal pain, generalized [facility] [place] [facility]* Diagnosis Preop examination- Primary Preoperative examination, unspecified Intractable chronic migraine without aura and with status migrainosus Chronic migraine without aura, with intractable migraine, so stated, with status migrainosus Pre-op evaluation- Primary Preoperative examination, unspecified Hypothyroidism, unspecified type Mood disorder Unspecified episodic mood disorder Right flank pain Abdominal pain, unspecified site Hydronephrosis with urinary obstruction due to renal calculus Obesity, Class II, BMI 35-39.9 Obesity, unspecified Right flank pain Abdominal pain, unspecified site Rectal bleeding Hemorrhage of rectum and anus Chronic post-traumatic stress disorder (PTSD) Depression Depressive disorder, not elsewhere classified HTN (hypertension) Unspecified essential hypertension Hypothyroidism Unspecified hypothyroidism Right ureteral calculus Calculus of ureter Cholecystitis- Primary Cholecystitis, unspecified Dyskinesia of gallbladder [facility] N[facility] No data available for this section [facility] Hospital Discharge instructions Additional Instructions Your lab work, chest x-ray and EKG were unremarkable today. Follow-up with your primary care physician if not improving.[facility] Work Phone: Hospital Discharge instructions No data available for this section [facility] Hospital Discharge instructions Additional Instructions Follow-up for your MRI on Thursday as scheduled.[facility] Work Phone: Progress note No data available for this section [facility] Reason for referral (narrative)* Diagnostic Procedure Only (Routine) - Closed Specialty Diagnoses / Procedures Referred By Contac t Referred To Contact XR IMAGING Diagnoses Chronic neck pain Procedures XR CERV OTHER 6V AP/LAT/FLX/EXT/OBL RADEX SPINE CERVICAL 6 OR MORE VIEWS Jimena Ashley, BLASTING [employer] MAN.COMMUNITY HEALTH PLANNING DIRECTOR [address] [place] [address] Xr Imaging Referral ID Status Reason Start Date Expiration Date V isits Requested Visits Authorized [id number] Closed Auto-Generate d Referral 02/27/2022 03/29/2023 1 1 [facility] for referral (narrative)* Diagnostic Procedure Only (Routine) - Closed Specialty Diagnoses / Procedures Referred By Contac t Referred To Contact XR IMAGING Diagnoses Chronic neck pain Procedures XR CERV OTHER 6V AP/LAT/FLX/EXT/OBL RADEX SPINE CERVICAL 6 OR MORE VIEWS Jimena Ashley [employer] MAN.COMMUNITY HEALTH PLANNING DIRECTOR [address] [place] [address] Xr Imaging Referral ID Status Reason Start Date Expiration Date V isits Requested Visits Authorized [id number] Closed Auto-Generate d Referral 02/27/2022 03/29/2023 1 1 Electronically signed by Jimena Ashley [employer] MAN.COMMUNITY HEALTH PLANNING DIRECTOR at 02/27/2022 9:59 AM EDT [facility] for referral (narrative)* Diagnostic Procedure Only (Urgent) - Closed Specialty Diagnoses / Procedures Referred By Contac t Referred To Contact XR IMAGING Diagnoses Right hand pain Procedures XR HAND GENERAL 3V PA/LAT/OBL RIGHT RADEX HAND MINIMUM 3 VIEWS Steph Shaw APRN.COMMUNITY HEALTH PLANNING DIRECTOR [address] [place] [address] Xr Imaging Referral ID Status Reason Start Date Expiration Date V isits Requested Visits Authorized [id number] Closed Auto-Generate d Referral 05/06/2022 06/05/2023 1 1 [facility] for referral (narrative)* Outpatient Procedure (Routine) - Authorized Specialty Diagnoses / Procedures Referred By Contac t Referred To Contact [facility] Diagnoses Seizure (HCC) Procedures EPIL EEG LONG EEG EXTENDED MONITORING 61-119 MINUTES ELECTROENCEPHALOGRAM REC COMA/SLEEP ONLY Soila Kendrick, CLAU [address] [place] [address] [facility] [address] [place] [address] Referral ID Status Reason Start Date Expiration Date Visits Requested Visits Authorized [id number] Authorized Auto-Generat ed Referral 11/28/2022 11/29/2023 1 1 [facility] for referral (narrative)* Diagnostic Procedure Only (Routine) - Closed Specialty Diagnoses / Procedures Referred By Contac t Referred To Contact XR IMAGING Diagnoses Sprain of right ankle, unspecified ligament, initial encounter Procedures XR TIBIA FIBULA 2V AP/LAT RIGHT RADIOLOGIC EXAMINATION TIBIA & FIBULA 2 VIEWS Brenden Puri [address] [place] [address] [place] [address] Referral ID Status Reason Start Date Expiration Date V isits Requested Visits Authorized [id number] Closed Auto-Generate d Referral 02/11/2023 03/12/2024 1 1 [facility] for referral (narrative)* Diagnostic Procedure Only (Routine) - Closed Specialty Diagnoses / Procedures Referred By Contac t Referred To Contact XR IMAGING Diagnoses Acute right ankle pain Procedures XR ANKLE GENERAL 3V AP/LAT/OBL RIGHT RADEX ANKLE COMPLETE MINIMUM 3 VIEWS Brenden Puri [address] [place] [address] [place] [address] Referral ID Status Reason Start Date Expiration Date V isits Requested Visits Authorized [id number] Closed Auto-Generate d Referral 02/06/2023 03/07/2024 1 1 T [facility] for referral (narrative)* Diagnostic Procedure Only (Routine) - Pending Review Specialty Diagnoses / Procedures Referred By Contac t Referred To Contact XR IMAGING Diagnoses Left knee pain, unspecified chronicity Procedures XR KNEE GENERAL 4V AP BOTH/PA BOTH/LAT/MERC LEFT RADIOLOGIC EXAM KNEE COMPLETE 4/MORE VIEWS Seven Hernandez MD [address] [place] [address] [place] [address] Referral ID Status Reason Start Date Expiration Date Visits Requested Visits Authorized [id number] Pending Review Auto-Generat ed Referral 01/11/2024 02/09/2025 1 1 [facility] for referral (narrative)* Diagnostic Procedure Only (Routine) - Closed Specialty Diagnoses / Procedures Referred By Contac t Referred To Contact XR IMAGING Diagnoses Left knee pain, unspecified chronicity Procedures XR KNEE GENERAL 4V AP BOTH/PA BOTH/LAT/MERC LEFT RADIOLOGIC EXAM KNEE COMPLETE 4/MORE VIEWS Seven Hernandez MD [address] [place] [address] [place] [address] Referral ID Status Reason Start Date Expiration Date V isits Requested Visits Authorized [id number] Closed Auto-Generate d Referral 01/11/2024 02/09/2025 1 1 [facility] for referral (narrative)* Outpatient Procedure (Routine) - Closed Specialty Diagnoses / Procedures Referred By Contac t Referred To Contact [facility] Diagnoses Pain of left calf Procedures US LEG VEIN DVT UNL VAS LAB DUP-SCAN XTR VEINS UNILATERAL/LIMITED STUDY Irene Randolph DO [address] [place] [address] [facility] [address] [place] [address] Referral ID Status Reason Start Date Expiration Date V isits Requested Visits Authorized [id number] Closed Auto-Generate d Referral 04/21/2024 04/21/2025 1 1 * Physical Therapy (Routine) - Authorized Specialty Diagnoses / Procedures Referred By Contac t Referred To Contact [facility] Diagnoses Chronic pain of left knee Acute medial meniscus tear of left knee, initial encounter Procedures CONSULT TO PHYSICAL THERAPY PHYSICAL THERAPY EVALUATION HIGH COMPLEX 45 MINS Irene Randolph DO [address] [place] [address] [facility] [address] [place] [address] Referral ID Status Reason Start Date Expiration Date Visits Requested Visits Authorized [id number] Authorized Auto-Generat ed Referral 08/10/2023 08/09/2024 1 1 * Diagnostic Procedure Only (Urgent) - New Request Specialty Diagnoses / Procedures Referred By Contac t Referred To Contact US IMAGING Diagnoses Pain of left calf Procedures US DVT LOWER LEFT DUP-SCAN XTR VEINS UNILATERAL/LIMITED STUDY Irene Randolph DO [address] [place] [address] [place] [address] Referral ID Status Reason Start Date Expiration Date Visits Requested Visits Authorized [id number] New Request Auto-Generat ed Referral 04/21/2024 05/21/2025 1 1 [facility] for referral (narrative)* Diagnostic Procedure Only (Urgent) - Closed Specialty Diagnoses / Procedures Referred By Contac t Referred To Contact XR IMAGING Diagnoses Bilateral sciatica Acute bilateral low back pain with bilateral sciatica Procedures XR LUMBAR GENERAL 3V AP/LAT/L5-S1 RADEX SPINE LUMBOSACRAL 2/3 VIEWS Lori Corral, ANDREA.COMMUNITY HEALTH PLANNING DIRECTOR [address] [place] [address] [place] [address] Referral ID Status Reason Start Date Expiration Date V isits Requested Visits Authorized [id number] Closed Auto-Generate d Referral 08/24/2023 09/22/2024 1 1 [facility] for referral (narrative)* Diagnostic Procedure Only (Urgent) - Closed Specialty Diagnoses / Procedures Referred By Contac t Referred To Contact XR IMAGING Diagnoses Right hand pain Procedures XR HAND GENERAL 3V PA/LAT/OBL RIGHT RADEX HAND MINIMUM 3 VIEWS Steph Shaw [employer].COMMUN[employer] HEALTH PLANNING DIRECTOR [address] [place] [address] [place] [address] Referral ID Status Reason Start Date Expiration Date V isits Requested Visits Authorized [id number] Closed Auto-Generate d Referral 05/06/2022 06/05/2023 1 1 [facility] for referral (narrative)* Outpatient Procedure (Routine) - New Request Specialty Diagnoses / Procedures Referred By Jordyn t Referred To Contact [facility] Diagnoses Seizure (HCC) Procedures EPIL EEG LEAD PLACEMENT EEG EXTENDED MONITORING 61-119 MINUTES ELECTROENCEPHALOGRAM REC COMA/SLEEP ONLY Sierra Dunham PA-C [address] [facility] [address] [place] [address] [facility] [address] [place] [address] Referral ID Status Reason Start Date Expiration Date Visits Requested Visits Authorized [id number] New Request Auto-Generat ed Referral 05/31/2025 1 1 [facility] for referral (narrative)* Outpatient Procedure (Routine) - Closed Specialty Diagnoses / Procedures Referred By Jordyn t Referred To Contact [facility] Diagnoses Pain of left calf Procedures US LEG VEIN DVT UNL VAS LAB DUP-SCAN XTR VEINS UNILATERAL/LIMITED STUDY Irene Randolph DO [address] [place] [address] [facility] [address] [place] [address] Referral ID Status Reason Start Date Expiration Date V isits Requested Visits Authorized [id number] Closed Auto-Generate d Referral 07/14/2024 07/14/2025 1 1 [facility] for referral (narrative)No reason for referral information availableWOhio[facility] Work Phone: Reason for visit Narrative* Diagnostic Procedure Only (Routine) - Closed Specialty Diagnoses / Procedures Referred By Contac t Referred To Contact XR IMAGING Diagnoses Chronic neck pain Procedures XR CERV OTHER 6V AP/LAT/FLX/EXT/OBL RADEX SPINE CERVICAL 6 OR MORE VIEWS Jimena Ashley, [employer]ING [employer] MAN.COMMUNITY HEALTH PLANNING DIRECTOR [address] [place] [address] Xr Imaging Referral ID Status Reason Start Date Expiration Date V isits Requested Visits Authorized [id number] Closed Auto-Generate d Referral 02/27/2022 03/29/2023 1 1 [facility] for visit Narrative* Diagnostic Procedure Only (Routine) - Closed Specialty Diagnoses / Procedures Referred By Contac t Referred To Contact XR IMAGING Diagnoses Sprain of right ankle, unspecified ligament, initial encounter Procedures XR TIBIA FIBULA 2V AP/LAT RIGHT RADIOLOGIC EXAMINATION TIBIA & FIBULA 2 VIEWS Brenden Puri [address] [place] [address] [place] [address] Referral ID Status Reason Start Date Expiration Date V isits Requested Visits Authorized [id number] Closed Auto-Generate d Referral 02/11/2023 03/12/2024 1 1 [facility] for visit Narrative* Diagnostic Procedure Only (Routine) - Closed Specialty Diagnoses / Procedures Referred By Contac t Referred To Contact XR IMAGING Diagnoses Acute right ankle pain Procedures XR ANKLE GENERAL 3V AP/LAT/OBL RIGHT RADEX ANKLE COMPLETE MINIMUM 3 VIEWS Brenden Puri [address] [place] [address] [place] [address] Referral ID Status Reason Start Date Expiration Date V isits Requested Visits Authorized [id number] Closed Auto-Generate d Referral 02/06/2023 03/07/2024 1 1 [facility] for visit Narrative* Diagnostic Procedure Only (Routine) - Closed Specialty Diagnoses / Procedures Referred By Contac t Referred To Contact XR IMAGING Diagnoses Left leg pain Procedures XR HIP GENERAL 3V PELV/AP/LAT LEFT RADEX HIP UNILATERAL WITH PELVIS 2-3 VIEWS Seven Hernandez MD [address] [place] [address] [place] [address] Referral ID Status Reason Start Date Expiration Date V isits Requested Visits Authorized [id number] Closed Auto-Generate d Referral 02/09/2024 03/10/2025 1 1 [facility] for visit Narrative* Diagnostic Procedure Only (Urgent) - Closed Specialty Diagnoses / Procedures Referred By Contac t Referred To Contact XR IMAGING Diagnoses Bilateral sciatica Acute bilateral low back pain with bilateral sciatica Procedures XR LUMBAR GENERAL 3V AP/LAT/L5-S1 RADEX SPINE LUMBOSACRAL 2/3 VIEWS Lori Corral, BLASTING [employer] MAN.COMMUNITY HEALTH PLANNING DIRECTOR [address] [place] [address] [place] [address] Referral ID Status Reason Start Date Expiration Date V isits Requested Visits Authorized [id number] Closed Auto-Generate d Referral 08/24/2023 09/22/2024 1 1 [facility] for visit Narrative* Diagnostic Procedure Only (Urgent) - Closed Specialty Diagnoses / Procedures Referred By Contac t Referred To Contact XR IMAGING Diagnoses Right hand pain Procedures XR HAND GENERAL 3V PA/LAT/OBL RIGHT RADEX HAND MINIMUM 3 VIEWS Steph Shaw, BLASTING CONTRACT MAN.COMMUNITY HEALTH PLANNING DIRECTOR [address] [place] [address] [place] [address] Referral ID Status Reason Start Date Expiration Date V isits Requested Visits Authorized [id number] Closed Auto-Generate d Referral 05/06/2022 06/05/2023 1 1 [facility] for visit Narrative* Auth/Cert (Routine) Specialty Diagnoses / Procedures Referred By Contac [...] GENERAL ANES ARTHROSCOPY KNEE LYSIS OF ADHESIONS [facility] [address] [place] [address] Referral ID Status Reason Start Date Expiration Date Visits Re quested Visits Authorized [id number] 1 1 [facility] for visit Narrative* Diagnostic Procedure Only (Routine) - Closed Specialty Diagnoses / Procedures Referred By Jordyn connolly Referred To Contact XR IMAGING Diagnoses Left knee pain, unspecified chronicity Procedures XR KNEE GENERAL 4V AP BOTH/PA BOTH/LAT/MERC LEFT RADIOLOGIC EXAM KNEE COMPLETE 4/MORE VIEWS Elizabeth Karimi PA-C [address] [place] [address] Phone: tel: fax: [place] [address] Referral ID Status Reason Start Date Expiration Date V isits Requested Visits Authorized [id number] Closed Auto-Generate d Referral 01/11/2025 02/09/2026 1 1 [facility] for visit Narrative* Diagnostic Procedure Only (Routine) - Authorized Specialty Diagnoses / Procedures Referred By Jordyn connolly Referred To Contact [facility] IM[facility]ING Diagnoses Encounter for screening mammogram for breast cancer Abnormal mammogram of right breast Procedures US BREAST LTD RIGHT US BREAST UNI REAL TIME WITH IMAGE LIMITED Iveth Hernandez BLASTING CONTRACT MAN.COMMUNITY HEALTH PLANNING DIRECTOR [address] [place] [address] Phone: tel: fax: [facility] [address] [place] [address] Referral ID Status Reason Start Date Expiration Date Visits Requested Visits Authorized [id number] Authorized Auto-Generat ed Referral 12/06/2024 01/05/2026 1 1 [facility] for visit Narrative* Diagnostic Procedure Only (Routine) - Closed Specialty Diagnoses / Procedures Referred By Jordyn connolly Referred To Contact [facility] Diagnoses Encounter for screening mammogram for breast cancer Abnormal mammogram Abnormal mammogram of right breast Procedures MARNIE DIAG W ELIO BILATERAL DIGITAL BREAST TOMOSYNTHESIS BILATERAL Iveth Hernandez BLASTING CONTRACT MAN.COMMUNITY HEALTH PLANNING DIRECTOR [address] [place] [address] Phone: tel: fax: [facility] [address] [place] [address] Referral ID Status Reason Start Date Expiration Date V isits Requested Visits Authorized [id number] Closed Auto-Generate d Referral 12/06/2024 01/05/2026 1 1 [facility] for visit Narrative* Outpatient Procedure (Routine) - Closed Specialty Diagnoses / Procedures Referred By Jordyn t Referred To Contact [facility] Diagnoses Coughing up blood Dysphagia, unspecified type Procedures EGD DIAGNOSTIC ESOPHAGOGASTRODUODENOSC OPY TRANSORAL DIAGNOSTIC Zhanna Shah, BLASTING CONTRACT MAN.COMMUNITY HEALTH PLANNING DIRECTOR [address] [place] [address] Phone: tel: fax: [facility] [address] [place] [address] Referral ID Status Reason Start Date Expiration Date V isits Requested Visits Authorized [id number] Closed Auto-Generate d Referral 12/07/2024 12/07/2025 1 1 [facility] for visit Narrative* MRI/CT (Routine) - Closed Specialty Diagnoses / Procedures [facility] Referred To Contact [facility] Diagnoses Chronic migraine with aura without status migrainosus, not intractable Procedures MRI BRAIN WO IVCON MRI BRAIN BRAIN STEM W/O CONTRAST MATERIAL Irene Randolph, DO [address] [place] [address] Phone: tel: fax: [place] [address] Referral ID Status Reason Start Date Expiration Date V isits Requested Visits Authorized [id number] Closed Auto-Generate d Referral 02/28/2025 04/29/2025 1 1 [facility] for visit Narrative* Diagnostic Procedure Only (Routine) - Closed Specialty Diagnoses / Procedures Referred By Jordyn t Referred To Contact [facility] Diagnoses Generalized abdominal pain Rectal bleeding Irritable bowel syndrome with diarrhea Chronic superficial gastritis without bleeding Procedures US ABDOMEN COMPLETE US ABDOMINAL REAL TIME W/IMAGE DOCUMENTATION Duong Damon, BLASTING CONTRACT MAN.COMMUNITY HEALTH PLANNING DIRECTOR [address] [place] [place] [address] Phone: tel: fax: [place] [address] Referral ID Status Reason Start Date Expiration Date V isits Requested Visits Authorized [id number] Closed Auto-Generate d Referral 03/21/2025 04/20/2026 1 1 [facility] for visit Narrative* Diagnostic Procedure Only (Routine) - Closed Specialty Diagnoses / Procedures [facility] Referred To Contact [facility] Diagnoses Right ureteral calculus Procedures XR ABDOMEN 2V ROUTINE SUPINE W UPRIGHT/DECUB/CTL RADIOLOGIC EXAM ABDOMEN 2 VIEWS FrediLavonne mas MD [address] [place] [address] Phone: tel: fax: [place] [address] Referral ID Status Reason Start Date Expiration Date V isits Requested Visits Authorized [id number] Closed Auto-Generate d Referral 03/29/2025 04/28/2026 1 1 [facility] Chief Complaint Chief Complaint Description Start Date right thumb finger pain Preliminary chief co mplaint data, not yet signed by the author as of Instructions Instruction Description Start Date Patient advised to follow-up with Primary Care Physician for BMI management. Advance Directives No Advanced Directives Records Found Date Activated Date Inactivated Comments 03/06/2025 9:01 PM 03/08/2025 5:20 PM Question Answer Comments Full Code Order Discussed With: Patient Documents on File Type Date Recorded Patient Office Coordinator Receptionist Expl anation Advance Directive(s) 07/25/2021 8:48 AM Advance Directive(s) 01/05/2018 10:23 AM Advance Directive Response Recorded Date/ Time Living Will No March 30 11:29pm Power of Extruding Department Supervisor No March 30 11:29pm Advance Directive Response Recorded Date/ Time Living Will No December 15, 2021 2: 16pm Power of Extruding Department Supervisor No December 15, 2021 2:16pm Documents on File Type Date Recorded Patient Office Coordinator Receptionist Expl anation Advance Directive(s) 07/25/2021 8:48 AM Advance Directive(s) 01/05/2018 10:23 AM Advance Directive Response Recorded Date/ Time Living Will No March 27 10:42am Power of Extruding Department Supervisor No March 27, 022 10:42am Advance Directive Response Recorded Date/ Time Living Will No January 12, 2023 1 0:52am Power of Extruding Department Supervisor No January 12, 2023 10:52am Advance Directive Response Recorded Date/ Time Living Will No January 12, 2023 9 :52am Power of Extruding Department Supervisor No January 12, 2023 9:52am Advance Directive Response Recorded Date/ Time Living Will No September 19 024 11:05pm Power of Extruding Department Supervisor No September 19, 2023 11:05pm Advance Directive Response Recorded Date/ Time Living Will No September 20, 024 12:05am Power of Extruding Department Supervisor No September 20, 2023 12:05am Advance Directive Response Recorded Date/ Time Living Will No December 10, 2023 3: 08pm Power of Extruding Department Supervisor No December 10, 2023 3:08pm Advance Directive Response Recorded Date/ Time Do you have a Healthcare Power of Extruding Department Supervisor? No March 06, 2025 10:39am Date Activated Date Inactivated Comments 03/06/2025 9:01 PM Date Activated Date Inactivated Comments 03/06/2025 9:01 PM 03/08/2025 5:20 PM Question Answer Comments Full Code Order [...] to 3 most recent administrations Medication Order [facility] Action Action Date Dose Rate Site eptinezumab-jjmr [...] to 3 most recent administrations Medication Order [facility] Action Action Date Dose Rate Site keTORolac [...] to 3 most recent administrations Medication Order [facility] Action Action Date Dose Rate Site keTORolac [...] 45 MINS [address] [place] [address] [facility] [address] [place] [address] Referral ID Status Reason Start Date Expiration Date Visits Requested Visits Authorized [id number] Pending Review Auto-Generat ed Referral 02/11/2023 02/11/2024 1 1 Specialty Diagnoses / Procedures Referred By Jordyn connolly Referred To Contact X[facility] Diagnoses Sprain of right ankle, unspecified ligament, initial encounter Procedures XR TIBIA FIBULA 2V AP/LAT RIGHT RADIOLOGIC EXAMINATION TIBIA & FIBULA 2 VIEWS [address] [place] [address] Xr Imaging Referral ID Status Reason Start Date Expiration Date Visits Requested Visits Authorized [id number] Pending Review Auto-Generat ed Referral 02/11/2023 03/12/2024 1 1 Specialty Diagnoses / Procedures Referred By Jordyn connolly Referred To Contact [facility] Diagnoses Acute right ankle pain Procedures MRI ANKLE WO IVCON RIGHT MRI ANY JT LOWER EXTREM W/O CONTRAST MATRL Brenden Puri [address] [place] [address] Mr Imaging Referral ID Status Reason Start Date Expiration Date Visits Requested Visits Authorized [id number] Pending Review Auto-Generat ed Referral 03/10/2023 04/08/2024 1 1 Specialty Diagnoses / Procedures Referred By Jordyn connolly Referred To Contact [facility] Diagnoses Sprain of right ankle, unspecified ligament, initial encounter Procedures PT REHAB FOLLOW UP ORDER THERAPEUTIC EXERCISES RE, EA 15 MIN. [address] [place] [address] [facility] [address] [place] [address] Referral ID Status Reason Start Date Expiration Date Visits Requested Visits Authorized [id number] Pending Review PCP Requested Referral Auto-Generate d Referral 03/13/2023 06/11/2023 1 1 Specialty Diagnoses / Procedures Referred By Contac t Referred To Contact Diagnoses Seizure (HCC) Uriel Greenwood MD [address] [facility] [address] [place] [address] Referral ID Status Reason Start Date Expiration Date Visits Re quested Visits Authorized [id number] Closed 1 1 Referral ID Status Reason Start Date Expiration Date Visits Re quested Visits Authorized [id number] Closed 1 1 Specialty Diagnoses / Procedures Referred By Contac t Referred To Contact [facility] Diagnoses Acute right ankle pain Procedures MRI ANKLE WO IVCON RIGHT MRI ANY JT LOWER EXTREM W/O CONTRAST Brenden Taylor [address] [place] [address] Mr Imaging [facility] Referral ID Status Reason Start Date Expiration Date V isits Requested Visits Authorized [id number] Closed Auto-Generate d Referral 03/26/2023 05/25/2023 1 1 Specialty Diagnoses / Procedures Referred By Contac t Referred To Contact [facility] Diagnoses Tear of medial meniscus of left knee, current, unspecified tear type, initial encounter Procedures CONSULT TO PHYSICAL THERAPY PHYSICAL THERAPY EVALUATION HIGH COMPLEX 45 MINS Elizabeth Karimi PA-C [address] [place] [address] [facility] [address] [place] [address] Referral ID Status Reason Start Date Expiration Date Visits Requested Visits Authorized [id number] Pending Review Auto-Generat ed Referral 04/01/2024 04/01/2025 1 1 Specialty Diagnoses / Procedures Referred By Contac t Referred To Contact [facility] Diagnoses Chronic pain of left knee Acute medial meniscus tear of left knee, initial encounter Procedures PT REHAB FOLLOW UP ORDER THERAPEUTIC EXERCISES RE, EA 15 MIN. [facility] [address] [place] [address] [facility] [address] [place] [address] Referral ID Status Reason Start Date Expiration Date Visits Requested Visits Authorized [id number] New Request PCP Requested Referral Auto-Generate d Referral 2024 08/10/2024 1 1 Referral ID Status Reason Start Date Expiration Date Visits Requested Visits Authorized [id number] New Request PCP Requested Referral Auto-Generate d Referral 10/19/2024 1 1 Specialty Diagnoses / Procedures Referred By Contac t Referred To Contact Diagnoses Overweight (BMI 25.0-29.9) Procedures ENDOCRINE MEDICAL WEIGHT MANAGEMENT OFFICE/OUTPATIENT NEW HIGH MDM 60 MINUTES Debbie Pichardo MD [address] [place] [address] Referral ID Status Reason Start Date Expiration Date Visits Requested Visits Authorized [id number] Authorized PCP Requested Referral 08/02/2025 1 1 Specialty Diagnoses / Procedures Referred By Contac t Referred To Contact Diagnoses Intractable chronic migraine without aura and without [place] [address] [address] [place] [address] Referral ID Status Reason Start Date Expiration Date V isits Requested Visits Authorized [id number] Authorized 08/25/2024 02/20/2025 1 1 Summary Purpose [...] CHRONIC PAIN Irene Randolph DO [address] [place] [address] Phone: tel: fax: [place] [address] [place] [address] Phone: tel: fax: Referral ID Status Reason Start Date Expiration Date Visits Requested Visits Authorized [id number] Closed OON Notification Letter Patient Cleared - [...] initial encounter Elizabeth Karimi PA-C [address] [place] [address] [facility] [address] [place] [address] Referral ID Status Reason Start Date Expiration Date V isits Requested Visits Authorized [id number] Authorized 08/10/2024 08/09/2025 10 10 Reason Comments [...] Headaches Specialty Diagnoses / Procedures Referred By Jordyn t Referred To Contact Neurology / NEUROLOGY Diagnoses vyepti Procedures [place] [address] [place] [address] Neur Treatment Frvw [address] [place] [address] Referral ID Status Reason Start Date Expiration Date V isits Requested Visits Authorized [id number] Pending Review 01/01/2022 04/01/2022 1 1 Reason [...] MINS Brenden Puri [address] [place] [address] [facility] [address] [place] [id number] Referral ID Status Reason Start Date Expiration Date V isits Requested Visits Authorized [id number] Closed Auto-Generate d Referral 08/10/2022 08/09/2023 1 1 Reason Comments Results Reason Comments Missed Appointment New patient missed a ppointment. Reason Comments Sore Throat ST, ADDISON and sinus x 3 days Specialty Diagnoses / Procedures Referred By Contac t Referred To Contact [facility] Diagnoses Acute right ankle pain Procedures MRI ANKLE WO IVCON RIGHT MRI ANY JT LOWER EXTREM W/O CONTRAST MATRL JamesBrenden rosas [address] [place] [address] [place] [address] Referral ID Status Reason Start Date Expiration Date V isits Requested Visits Authorized [id number] Closed Auto-Generate d Referral 03/26/2023 05/25/2023 1 [...] Seven Hernandez MD [address] [place] [address] [place] [address] Referral ID Status Reason Start Date Expiration Date V isits Requested Visits Authorized [id number] Closed Auto-Generate d Referral 01/11/2024 02/09/2025 1 1 Reason Comments Established Patient Post Op Specialty Diagnoses / Procedures Referred By Contac t Referred To Contact [facility] Diagnoses Chronic pain of left knee Acute medial meniscus tear of left knee, initial encounter Procedures CONSULT TO PHYSICAL THERAPY PHYSICAL THERAPY EVALUATION HIGH COMPLEX 45 MINS Irene Randolph DO [address] [place] [address] [facility] [address] [address] Referral ID Status Reason Start Date Expiration Date V isits Requested Visits Authorized [id number] Closed Auto-Generate d Referral 08/10/2023 08/09/2024 1 1 Reason Comments Post Op Reason Comments Patient Question Reason Onset Date Comments Refill Request 05/24/2024 Reason Comments Seizures Follow Up Specialty Diagnoses / Procedures Referred By Contac t Referred To Contact [facility] Diagnoses Chronic pain of left knee Acute medial meniscus tear of left knee, initial encounter Procedures PT REHAB FOLLOW UP ORDER THERAPEUTIC EXERCISES RE, EA 15 MIN. Irene Randolph DO [address] [place] [address] [address] Referral ID Status Reason Start Date Expiration Date Visits Requested Visits Authorized [id number] Authorized PCP Requested Referral Auto-Generate d Referral [...] 45 MINS Elizabeth Karimi PA-C [address] [place] [address] [facility] [address] [address] Referral ID Status Reason Start Date Expiration Date Visits Requested Visits Authorized [id number] Authorized Auto-Generat ed Referral 08/10/2023 08/09/2024 99 99 Specialty Diagnoses / Procedures Referred By Jordyn connolly Referred To Contact [facility] Diagnoses Tear of medial meniscus of left knee, current, unspecified tear type, initial encounter Procedures CONSULT TO PHYSICAL THERAPY PHYSICAL THERAPY EVALUATION HIGH COMPLEX 45 MINS Elizabeth Karimi PA-C [address] [place] [address] [facility] [address] [place] [address] Reason Comments Post Op 2 weeks post op Left knee ma nipulation under anesthesia and extensive synovectomy, S/P Left knee medial meniscus repair Reason Comments Thyroid Problem Reason Comments Overweight Specialty Diagnoses / Procedures Referred By Jordyn connolly Referred To Contact Diagnoses Overweight (BMI 25.0-29.9) Procedures ENDOCRINE MEDICAL WEIGHT MANAGEMENT OFFICE/OUTPATIENT [facility] 60 MINUTES Debbie Pichardo MD [address] [place] [id number] Referral ID Status Reason Start Date Expiration Date V isits Requested Visits Authorized [id number] Closed PCP Requested Referral 08/02/2024 08/02/2025 1 1 Reason Comments Chronic Migraine Reason Comments Knee Pain Post Op Follow Up Reason Comments Returning Patient's Call New Patient Reason Comments update Reason Comments Follow Up Knee Pain Reason Comments Injections Reason Comments Established Patient Chronic Migraines Reason Comments PT Re-eval Specialty Diagnoses / Procedures Referred By Jordyn connolly Referred To Contact PHYSICAL THERAPY Diagnoses S83.242A (ICD-10-CM) - Tear of medial meniscus of left knee, current, unspecified tear type, initial encounter Procedures S83.242A (ICD-10-CM) - Tear of medial meniscus of left knee, current, unspecified tear type, initial encounter Elizabeth Karimi PA-C [address] [place] [address] Phone: tel: fax: [facility] Therapy [address] [place] [address] Phone: tel: fax: Reason Comments post op pain Reason Comments Medication Authorization Lamictal XR Reason Comments Knee Pain Post Op Reason Comments Established Patient Headache Injections Sphenopalatine Specialty Diagnoses / Procedures Referred By Contac t Referred To Contact Pain Management / PAIN MANAGEMENT Diagnoses Chronic migraine without aura, intractable, with status migrainosus Sphenopalatine ganglion block (1 of 3); seafood & shellfish allergy Procedures INJECTION ANES AGENT SPHENOPALATINE GANGLION SPECIALTY INJECTION Frida Vargas, BLASTING CONTRACT MAN.COMMUNITY HEALTH PLANNING DIRECTOR [address] [place] [address] Phone: tel: fax: Ani Rajput BLASTING CONTRACT MAN.COMMUNITY HEALTH PLANNING DIRECTOR [address] [place] [address] Phone: tel: fax: Referral ID Status Reason Start Date Expiration Date Visits Re quested Visits Authorized [id number] Closed 08/10/2024 08/09/2025 1 1 Reason Comments Patient Question Diagnostic mammogram . Reason Comments Consult Overdue for colonosc opy Specialty Diagnoses / Procedures Referred By Contac t Referred To Contact General Surgery / [facility] DEPARTMENT Diagnoses Screening for colon cancer Procedures CONSULT TO GENERAL SURGERY OFFICE/OUTPATIENT NEW HIGH MDM 60 MINUTES Iveth Hernandez, BLASTING CONTRACT MAN.COMMUNITY HEALTH PLANNING DIRECTOR [address] [place] [address] Phone: tel: fax: Candis Gamez MD [address] [place] [address] Phone: tel: fax: Referral ID Status Reason Start Date Expiration Date V isits Requested Visits Authorized [id number] Closed PCP Requested Referral 12/06/2024 03/06/2025 1 [...] 10 MIN EST PAIN Self Sam, ANDREA Viramontes.COMMUNITY HEALTH PLANNING DIRECTOR [address] [place] [address] Phone: tel: fax: Referral ID Status Reason Start Date Expiration Date Visits Re quested Visits Authorized [id number] Closed 12/15/2024 08/09/2025 1 1 Reason Comments Knee Pain Reason Comments Yearly Exam Reason Comments Chronic Pain Specialty Diagnoses / Procedures Referred By Contac t Referred To Contact Diagnoses Chronic pain of left knee Procedures PROVIDER ORDERED FOLLOW UP OFFICE/OUTPATIENT NEW HIGH MDM 60 MINUTES Sania Price PA-C [address] [place] [address] Phone: tel: fax: Referral ID Status Reason Start Date Expiration Date V isits Requested Visits Authorized [id number] Closed PCP Requested Referral 02/09/2025 01/10/2026 1 1 Reason Comments Post Op Knee Pain Reason Comments Rectal Bleeding Reason Comments Rectal Bleeding bright red blood, ri ght flank pain x 3 days Reason Comments Surgery Reason Comments Chronic Pain Specialty Diagnoses / Procedures Referred By Contac t Referred To Contact [facility] / ORTHOPAEDIC SURGERY Diagnoses Chronic migraine with aura without status migrainosus, not intractable Complex regional pain syndrome type 1 of left lower extremity Procedures CONSULT TO [facility] (CHRONIC PAIN) OFFICE/OUTPATIENT NEW HIGH MDM 60 MINUTES Irene Randolph DO [address] [facility] [place] [address] Phone: tel: fax: Orthopaedics [address] [address] Phone: tel: Referral ID Status Reason Start Date Expiration Date V isits Requested Visits Authorized [id number] Closed PCP Requested Referral 02/17/2025 08/09/2025 1 1 Reason Onset Date Comments Results 03/12/2025 Reason Comments asking for pain meds Reason Comments New Knee Pain Reason Comments Abdominal Pain Was in [place] [facility] an d then taken to [facility]. Anal bleeding, Diarrhea and Dysphagia Specialty Diagnoses / Procedures Referred By Contac t Referred To Contact Gastroenterology Diagnoses Generalized abdominal pain Procedures OFFICE/OUTPATIENT NEW HIGH MDM 60 MINUTES Iveth Hernandez, BLASTING CONTRACT MAN.COMMUNITY HEALTH PLANNING DIRECTOR [address] [place] [address] Phone: tel: fax: [facility] [address] [place] [address] Phone: tel: fax: Referral ID Status Reason Start Date Expiration Date V isits Requested Visits Authorized [id number] Closed PCP Requested Referral 12/06/2024 12/06/2025 1 1 Reason Comments Pharmacist question Reason Comments F/U 3 Month Reason Comments Post-Op Visit Reason Comments Cystoscopy-1 Stent Extraction Reason Onset Date Comments Results 03/31/2025 Reason Comments Radiology NM Specialty Diagnoses / Procedures Referred By Contac t Referred To Contact MOLECULAR [facility] FUNCTIONAL IMAGING Diagnoses Calculus of gallbladder without cholecystitis without obstruction Nausea Generalized abdominal pain Procedures NM HEPATOBILIARY W EF AND/OR RX HEPATOBIL [facility] GB W/PHARMA INTERVENDuong Rocha, BLASTING CONTRACT MAN.COMMUNITY HEALTH PLANNING DIRECTOR [address] [place] [address] Phone: tel: fax: Molecular Imaging [address] [place], [place] [id number] Phone: tel: Referral ID Status Reason Start Date Expiration Date V isits Requested Visits Authorized [id number] Closed Auto-Generate d Referral 03/31/2025 04/30/2026 1 1 Reason Comments Results Source Comments (unrecognize d section and content) In the event this informatio n is protected by the Federal Confidentiality of Alcohol and Drug Abuse Patient Records regulations: The Federal rules restrict any use of the information to criminally investigate or prosecute any alcohol or drug abuse patient.[facility] the event this information is protected by the Federal Confidentiality of Alcohol and Drug Abuse Patient Records regulations: The Federal rules restrict any use of the information to criminally investigate or prosecute any alcohol or drug abuse patient.[facility] the event this information is protected by the Federal Confidentiality of Alcohol and Drug Abuse Patient Records regulations: The Federal rules restrict any use of the information to criminally investigate or prosecute any alcohol or drug abuse patient.[facility] the event this information is protected by the Federal Confidentiality of Alcohol and Drug Abuse Patient Records regulations: The Federal rules restrict any use of the information to criminally investigate or prosecute any alcohol or drug abuse patient.[facility] the event this information is protected by the Federal Confidentiality of Alcohol and Drug Abuse Patient Records regulations: The Federal rules restrict any use of the information to criminally investigate or prosecute any alcohol or drug abuse patient.[facility] the event this information is protected by the Federal Confidentiality of Alcohol and Drug Abuse Patient Records regulations: The Federal rules restrict any use of the information to criminally investigate or prosecute any alcohol or drug abuse patient.[facility] the event this information is protected by the Federal Confidentiality of Alcohol and Drug Abuse Patient Records regulations: The Federal rules restrict any use of the information to criminally investigate or prosecute any alcohol or drug abuse patient.[facility] the event this information is protected by the Federal Confidentiality of Alcohol and Drug Abuse Patient Records regulations: The Federal rules restrict any use of the information to criminally investigate or prosecute any alcohol or drug abuse patient.[facility] the event this information is protected by the Federal Confidentiality of Alcohol and Drug Abuse Patient Records regulations: The Federal rules restrict any use of the information to criminally investigate or prosecute any alcohol or drug abuse patient.[facility] HospitalIn the event this information is protected by the Federal Confidentiality of Alcohol and Drug Abuse Patient Records regulations: The Federal rules restrict any use of the information to criminally investigate or prosecute any alcohol or drug abuse patient.[facility] HospitalIn the event this information is protected by the Federal Confidentiality of Alcohol and Drug Abuse Patient Records regulations: The Federal rules restrict any use of the information to criminally investigate or prosecute any alcohol or drug abuse patient.[facility] HospitalIn the event this information is protected by the Federal Confidentiality of Alcohol and Drug Abuse Patient Records regulations: The Federal rules restrict any use of the information to criminally investigate or prosecute any alcohol or drug abuse patient.[facility] HospitalIn the event this information is protected by the Federal Confidentiality of Alcohol and Drug Abuse Patient Records regulations: The Federal rules restrict any use of the information to criminally investigate or prosecute any alcohol or drug abuse patient.[facility] HospitalIn the event this information is protected by the Federal Confidentiality of Alcohol and Drug Abuse Patient Records regulations: The Federal rules restrict any use of the information to criminally investigate or prosecute any alcohol or drug abuse patient.[facility] HospitalIn the event this information is protected by the Federal Confidentiality of Alcohol and Drug Abuse Patient Records regulations: The Federal rules restrict any use of the information to criminally investigate or prosecute any alcohol or drug abuse patient.[facility] HospitalIn the event this information is protected by the Federal Confidentiality of Alcohol and Drug Abuse Patient Records regulations: The Federal rules restrict any use of the information to criminally investigate or prosecute any alcohol or drug abuse patient.[facility] HospitalIn the event this information is protected by the Federal Confidentiality of Alcohol and Drug Abuse Patient Records regulations: The Federal rules restrict any use of the information to criminally investigate or prosecute any alcohol or drug abuse patient.[facility] HospitalIn the event this information is protected by the Federal Confidentiality of Alcohol and Drug Abuse Patient Records regulations: The Federal rules restrict any use of the information to criminally investigate or prosecute any alcohol or drug abuse patient.[facility] HospitalIn the event this information is protected by the Federal Confidentiality of Alcohol and Drug Abuse Patient Records regulations: The Federal rules restrict any use of the information to criminally investigate or prosecute any alcohol or drug abuse patient.[facility] HospitalIn the event this information is protected by the Federal Confidentiality of Alcohol and Drug Abuse Patient Records regulations: The Federal rules restrict any use of the information to criminally investigate or prosecute any alcohol or drug abuse patient.[facility] HospitalIn the event this information is protected by the Federal Confidentiality of Alcohol and Drug Abuse Patient Records regulations: The Federal rules restrict any use of the information to criminally investigate or prosecute any alcohol or drug abuse patient.[facility] HospitalIn the event this information is protected by the Federal Confidentiality of Alcohol and Drug Abuse Patient Records regulations: The Federal rules restrict any use of the information to criminally investigate or prosecute any alcohol or drug abuse patient.[facility] HospitalIn the event this information is protected by the Federal Confidentiality of Alcohol and Drug Abuse Patient Records regulations: The Federal rules restrict any use of the information to criminally investigate or prosecute any alcohol or drug abuse patient.[facility] HospitalIn the event this information is protected by the Federal Confidentiality of Alcohol and Drug Abuse Patient Records regulations: The Federal rules restrict any use of the information to criminally investigate or prosecute any alcohol or drug abuse patient.[facility] ClinicIn the event this information is protected by the Federal Confidentiality of Alcohol and Drug Abuse Patient Records regulations: The Federal rules restrict any use of the information to criminally investigate or prosecute any alcohol or drug abuse patient.[facility] HospitalIn the event this information is protected by the Federal Confidentiality of Alcohol and Drug Abuse Patient Records regulations: The Federal rules restrict any use of the information to criminally investigate or prosecute any alcohol or drug abuse patient.[facility] HospitalIn the event this information is protected by the Federal Confidentiality of Alcohol and Drug Abuse Patient Records regulations: The Federal rules restrict any use of the information to criminally investigate or prosecute any alcohol or drug abuse patient.[facility] HospitalIn the event this information is protected by the Federal Confidentiality of Alcohol and Drug Abuse Patient Records regulations: The Federal rules restrict any use of the information to criminally investigate or prosecute any alcohol or drug abuse patient.[facility] HospitalIn the event this information is protected by the Federal Confidentiality of Alcohol and Drug Abuse Patient Records regulations: The Federal rules restrict any use of the information to criminally investigate or prosecute any alcohol or drug abuse patient.[facility] HospitalIn the event this information is protected by the Federal Confidentiality of Alcohol and Drug Abuse Patient Records regulations: The Federal rules restrict any use of the information to criminally investigate or prosecute any alcohol or drug abuse patient.[facility] HospitalIn the event this information is protected by the Federal Confidentiality of Alcohol and Drug Abuse Patient Records regulations: The Federal rules restrict any use of the information to criminally investigate or prosecute any alcohol or drug abuse patient.[facility] HospitalIn the event this information is protected by the Federal Confidentiality of Alcohol and Drug Abuse Patient Records regulations: The Federal rules restrict any use of the information to criminally investigate or prosecute any alcohol or drug abuse patient.[facility] HospitalIn the event this information is protected by the Federal Confidentiality of Alcohol and Drug Abuse Patient Records regulations: The Federal rules restrict any use of the information to criminally investigate or prosecute any alcohol or drug abuse patient.[facility] HospitalIn the event this information is protected by the Federal Confidentiality of Alcohol and Drug Abuse Patient Records regulations: The Federal rules restrict any use of the information to criminally investigate or prosecute any alcohol or drug abuse patient.[facility] HospitalIn the event this information is protected by the Federal Confidentiality of Alcohol and Drug Abuse Patient Records regulations: The Federal rules restrict any use of the information to criminally investigate or prosecute any alcohol or drug abuse patient.[facility] HospitalIn the event this information is protected by the Federal Confidentiality of Alcohol and Drug Abuse Patient Records regulations: The Federal rules restrict any use of the information to criminally investigate or prosecute any alcohol or drug abuse patient.[facility] HospitalIn the event this information is protected by the Federal Confidentiality of Alcohol and Drug Abuse Patient Records regulations: The Federal rules restrict any use of the information to criminally investigate or prosecute any alcohol or drug abuse patient.[facility] HospitalIn the event this information is protected by the Federal Confidentiality of Alcohol and Drug Abuse Patient Records regulations: The Federal rules restrict any use of the information to criminally investigate or prosecute any alcohol or drug abuse patient.[facility] HospitalIn the event this information is protected by the Federal Confidentiality of Alcohol and Drug Abuse Patient Records regulations: The Federal rules restrict any use of the information to criminally investigate or prosecute any alcohol or drug abuse patient.[facility] HospitalIn the event this information is protected by the Federal Confidentiality of Alcohol and Drug Abuse Patient Records regulations: The Federal rules restrict any use of the information to criminally investigate or prosecute any alcohol or drug abuse patient.[facility] HospitalIn the event this information is protected by the Federal Confidentiality of Alcohol and Drug Abuse Patient Records regulations: The Federal rules restrict any use of the information to criminally investigate or prosecute any alcohol or drug abuse patient.[facility] HospitalIn the event this information is protected by the Federal Confidentiality of Alcohol and Drug Abuse Patient Records regulations: The Federal rules restrict any use of the information to criminally investigate or prosecute any alcohol or drug abuse patient.[facility] HospitalIn the event this information is protected by the Federal Confidentiality of Alcohol and Drug Abuse Patient Records regulations: The Federal rules restrict any use of the information to criminally investigate or prosecute any alcohol or drug abuse patient.[facility] HospitalIn the event this information is protected by the Federal Confidentiality of Alcohol and Drug Abuse Patient Records regulations: The Federal rules restrict any use of the information to criminally investigate or prosecute any alcohol or drug abuse patient.[facility] HospitalIn the event this information is protected by the Federal Confidentiality of Alcohol and Drug Abuse Patient Records regulations: The Federal rules restrict any use of the information to criminally investigate or prosecute any alcohol or drug abuse patient.[facility] HospitalIn the event this information is protected by the Federal Confidentiality of Alcohol and Drug Abuse Patient Records regulations: The Federal rules restrict any use of the information to criminally investigate or prosecute any alcohol or drug abuse patient.[facility] HospitalIn the event this information is protected by the Federal Confidentiality of Alcohol and Drug Abuse Patient Records regulations: The Federal rules restrict any use of the information to criminally investigate or prosecute any alcohol or drug abuse patient.[facility] HospitalIn the event this information is protected by the Federal Confidentiality of Alcohol and Drug Abuse Patient Records regulations: The Federal rules restrict any use of the information to criminally investigate or prosecute any alcohol or drug abuse patient.[facility] HospitalIn the event this information is protected by the Federal Confidentiality of Alcohol and Drug Abuse Patient Records regulations: The Federal rules restrict any use of the information to criminally investigate or prosecute any alcohol or drug abuse patient.[facility] HospitalIn the event this information is protected by the Federal Confidentiality of Alcohol and Drug Abuse Patient Records regulations: The Federal rules restrict any use of the information to criminally investigate or prosecute any alcohol or drug abuse patient.[facility] HospitalIn the event this information is protected by the Federal Confidentiality of Alcohol and Drug Abuse Patient Records regulations: The Federal rules restrict any use of the information to criminally investigate or prosecute any alcohol or drug abuse patient.[facility] HospitalIn the event this information is protected by the Federal Confidentiality of Alcohol and Drug Abuse Patient Records regulations: The Federal rules restrict any use of the information to criminally investigate or prosecute any alcohol or drug abuse patient.[facility] HospitalIn the event this information is protected by the Federal Confidentiality of Alcohol and Drug Abuse Patient Records regulations: The Federal rules restrict any use of the information to criminally investigate or prosecute any alcohol or drug abuse patient.[facility] HospitalIn the event this information is protected by the Federal Confidentiality of Alcohol and Drug Abuse Patient Records regulations: The Federal rules restrict any use of the information to criminally investigate or prosecute any alcohol or drug abuse patient.[facility] HospitalIn the event this information is protected by the Federal Confidentiality of Alcohol and Drug Abuse Patient Records regulations: The Federal rules restrict any use of the information to criminally investigate or prosecute any alcohol or drug abuse patient.[facility] HospitalIn the event this information is protected by the Federal Confidentiality of Alcohol and Drug Abuse Patient Records regulations: The Federal rules restrict any use of the information to criminally investigate or prosecute any alcohol or drug abuse patient.[facility] HospitalIn the event this information is protected by the Federal Confidentiality of Alcohol and Drug Abuse Patient Records regulations: The Federal rules restrict any use of the information to criminally investigate or prosecute any alcohol or drug abuse patient.[facility] HospitalIn the event this information is protected by the Federal Confidentiality of Alcohol and Drug Abuse Patient Records regulations: The Federal rules restrict any use of the information to criminally investigate or prosecute any alcohol or drug abuse patient.[facility] HospitalIn the event this information is protected by the Federal Confidentiality of Alcohol and Drug Abuse Patient Records regulations: The Federal rules restrict any use of the information to criminally investigate or prosecute any alcohol or drug abuse patient.[facility] HospitalIn the event this information is protected by the Federal Confidentiality of Alcohol and Drug Abuse Patient Records regulations: The Federal rules restrict any use of the information to criminally investigate or prosecute any alcohol or drug abuse patient.[facility] HospitalIn the event this information is protected by the Federal Confidentiality of Alcohol and Drug Abuse Patient Records regulations: The Federal rules restrict any use of the information to criminally investigate or prosecute any alcohol or drug abuse patient.[facility] HospitalIn the event this information is protected by the Federal Confidentiality of Alcohol and Drug Abuse Patient Records regulations: The Federal rules restrict any use of the information to criminally investigate or prosecute any alcohol or drug abuse patient.[facility] HospitalIn the event this information is protected by the Federal Confidentiality of Alcohol and Drug Abuse Patient Records regulations: The Federal rules restrict any use of the information to criminally investigate or prosecute any alcohol or drug abuse patient.[facility] HospitalIn the event this information is protected by the Federal Confidentiality of Alcohol and Drug Abuse Patient Records regulations: The Federal rules restrict any use of the information to criminally investigate or prosecute any alcohol or drug abuse patient.[facility] HospitalIn the event this information is protected by the Federal Confidentiality of Alcohol and Drug Abuse Patient Records regulations: The Federal rules restrict any use of the information to criminally investigate or prosecute any alcohol or drug abuse patient.[facility] HospitalIn the event this information is protected by the Federal Confidentiality of Alcohol and Drug Abuse Patient Records regulations: The Federal rules restrict any use of the information to criminally investigate or prosecute any alcohol or drug abuse patient.[facility] HospitalIn the event this information is protected by the Federal Confidentiality of Alcohol and Drug Abuse Patient Records regulations: The Federal rules restrict any use of the information to criminally investigate or prosecute any alcohol or drug abuse patient.[facility] HospitalIn the event this information is protected by the Federal Confidentiality of Alcohol and Drug Abuse Patient Records regulations: The Federal rules restrict any use of the information to criminally investigate or prosecute any alcohol or drug abuse patient.[facility] HospitalIn the event this information is protected by the Federal Confidentiality of Alcohol and Drug Abuse Patient Records regulations: The Federal rules restrict any use of the information to criminally investigate or prosecute any alcohol or drug abuse patient.[facility] HospitalIn the event this information is protected by the Federal Confidentiality of Alcohol and Drug Abuse Patient Records regulations: The Federal rules restrict any use of the information to criminally investigate or prosecute any alcohol or drug abuse patient.[facility] HospitalIn the event this information is protected by the Federal Confidentiality of Alcohol and Drug Abuse Patient Records regulations: The Federal rules restrict any use of the information to criminally investigate or prosecute any alcohol or drug abuse patient.[facility] HospitalIn the event this information is protected by the Federal Confidentiality of Alcohol and Drug Abuse Patient Records regulations: The Federal rules restrict any use of the information to criminally investigate or prosecute any alcohol or drug abuse patient.[facility] HospitalIn the event this information is protected by the Federal Confidentiality of Alcohol and Drug Abuse Patient Records regulations: The Federal rules restrict any use of the information to criminally investigate or prosecute any alcohol or drug abuse patient.[facility] HospitalIn the event this information is protected by the Federal Confidentiality of Alcohol and Drug Abuse Patient Records regulations: The Federal rules restrict any use of the information to criminally investigate or prosecute any alcohol or drug abuse patient.[facility]In the event this information is protected by the Federal Confidentiality of Alcohol and Drug Abuse Patient Records regulations: The Federal rules restrict any use of the information to criminally investigate or prosecute any alcohol or drug abuse patient.[facility] HospitalIn the event this information is protected by the Federal Confidentiality of Alcohol and Drug Abuse Patient Records regulations: The Federal rules restrict any use of the information to criminally investigate or prosecute any alcohol or drug abuse patient.[facility] HospitalIn the event this information is protected by the Federal Confidentiality of Alcohol and Drug Abuse Patient Records regulations: The Federal rules restrict any use of the information to criminally investigate or prosecute any alcohol or drug abuse patient.[facility] HospitalIn the event this information is protected by the Federal Confidentiality of Alcohol and Drug Abuse Patient Records regulations: The Federal rules restrict any use of the information to criminally investigate or prosecute any alcohol or drug abuse patient.[facility] HospitalIn the event this information is protected by the Federal Confidentiality of Alcohol and Drug Abuse Patient Records regulations: The Federal rules restrict any use of the information to criminally investigate or prosecute any alcohol or drug abuse patient.[facility] HospitalIn the event this information is protected by the Federal Confidentiality of Alcohol and Drug Abuse Patient Records regulations: The Federal rules restrict any use of the information to criminally investigate or prosecute any alcohol or drug abuse patient.[facility] HospitalIn the event this information is protected by the Federal Confidentiality of Alcohol and Drug Abuse Patient Records regulations: The Federal rules restrict any use of the information to criminally investigate or prosecute any alcohol or drug abuse patient.[facility] HospitalIn the event this information is protected by the Federal Confidentiality of Alcohol and Drug Abuse Patient Records regulations: The Federal rules restrict any use of the information to criminally investigate or prosecute any alcohol or drug abuse patient.[facility] HospitalIn the event this information is protected by the Federal Confidentiality of Alcohol and Drug Abuse Patient Records regulations: The Federal rules restrict any use of the information to criminally investigate or prosecute any alcohol or drug abuse patient.[facility] HospitalIn the event this information is protected by the Federal Confidentiality of Alcohol and Drug Abuse Patient Records regulations: The Federal rules restrict any use of the information to criminally investigate or prosecute any alcohol or drug abuse patient.[facility] HospitalIn the event this information is protected by the Federal Confidentiality of Alcohol and Drug Abuse Patient Records regulations: The Federal rules restrict any use of the information to criminally investigate or prosecute any alcohol or drug abuse patient.[facility] HospitalIn the event this information is protected by the Federal Confidentiality of Alcohol and Drug Abuse Patient Records regulations: The Federal rules restrict any use of the information to criminally investigate or prosecute any alcohol or drug abuse patient.[facility] HospitalIn the event this information is protected by the Federal Confidentiality of Alcohol and Drug Abuse Patient Records regulations: The Federal rules restrict any use of the information to criminally investigate or prosecute any alcohol or drug abuse patient.[facility] HospitalIn the event this information is protected by the Federal Confidentiality of Alcohol and Drug Abuse Patient Records regulations: The Federal rules restrict any use of the information to criminally investigate or prosecute any alcohol or drug abuse patient.[facility] HospitalIn the event this information is protected by the Federal Confidentiality of Alcohol and Drug Abuse Patient Records regulations: The Federal rules restrict any use of the information to criminally investigate or prosecute any alcohol or drug abuse patient.[facility] HospitalIn the event this information is protected by the Federal Confidentiality of Alcohol and Drug Abuse Patient Records regulations: The Federal rules restrict any use of the information to criminally investigate or prosecute any alcohol or drug abuse patient.[facility] HospitalIn the event this information is protected by the Federal Confidentiality of Alcohol and Drug Abuse Patient Records regulations: The Federal rules restrict any use of the information to criminally investigate or prosecute any alcohol or drug abuse patient.[facility] HospitalIn the event this information is protected by the Federal Confidentiality of Alcohol and Drug Abuse Patient Records regulations: The Federal rules restrict any use of the information to criminally investigate or prosecute any alcohol or drug abuse patient.[facility] HospitalIn the event this information is protected by the Federal Confidentiality of Alcohol and Drug Abuse Patient Records regulations: The Federal rules restrict any use of the information to criminally investigate or prosecute any alcohol or drug abuse patient.[facility] HospitalIn the event this information is protected by the Federal Confidentiality of Alcohol and Drug Abuse Patient Records regulations: The Federal rules restrict any use of the information to criminally investigate or prosecute any alcohol or drug abuse patient.[facility] HospitalIn the event this information is protected by the Federal Confidentiality of Alcohol and Drug Abuse Patient Records regulations: The Federal rules restrict any use of the information to criminally investigate or prosecute any alcohol or drug abuse patient.[facility] HospitalIn the event this information is protected by the Federal Confidentiality of Alcohol and Drug Abuse Patient Records regulations: The Federal rules restrict any use of the information to criminally investigate or prosecute any alcohol or drug abuse patient.[facility] HospitalIn the event this information is protected by the Federal Confidentiality of Alcohol and Drug Abuse Patient Records regulations: The Federal rules restrict any use of the information to criminally investigate or prosecute any alcohol or drug abuse patient.[facility] HospitalIn the event this information is protected by the Federal Confidentiality of Alcohol and Drug Abuse Patient Records regulations: The Federal rules restrict any use of the information to criminally investigate or prosecute any alcohol or drug abuse patient.[facility] HospitalIn the event this information is protected by the Federal Confidentiality of Alcohol and Drug Abuse Patient Records regulations: The Federal rules restrict any use of the information to criminally investigate or prosecute any alcohol or drug abuse patient.[facility] HospitalIn the event this information is protected by the Federal Confidentiality of Alcohol and Drug Abuse Patient Records regulations: The Federal rules restrict any use of the information to criminally investigate or prosecute any alcohol or drug abuse patient.[facility] HospitalIn the event this information is protected by the Federal Confidentiality of Alcohol and Drug Abuse Patient Records regulations: The Federal rules restrict any use of the information to criminally investigate or prosecute any alcohol or drug abuse patient.[facility] HospitalIn the event this information is protected by the Federal Confidentiality of Alcohol and Drug Abuse Patient Records regulations: The Federal rules restrict any use of the information to criminally investigate or prosecute any alcohol or drug abuse patient.[facility] HospitalIn the event this information is protected by the Federal Confidentiality of Alcohol and Drug Abuse Patient Records regulations: The Federal rules restrict any use of the information to criminally investigate or prosecute any alcohol or drug abuse patient.[facility] HospitalIn the event this information is protected by the Federal Confidentiality of Alcohol and Drug Abuse Patient Records regulations: The Federal rules restrict any use of the information to criminally investigate or prosecute any alcohol or drug abuse patient.[facility] HospitalIn the event this information is protected by the Federal Confidentiality of Alcohol and Drug Abuse Patient Records regulations: The Federal rules restrict any use of the information to criminally investigate or prosecute any alcohol or drug abuse patient.[facility] HospitalIn the event this information is protected by the Federal Confidentiality of Alcohol and Drug Abuse Patient Records regulations: The Federal rules restrict any use of the information to criminally investigate or prosecute any alcohol or drug abuse patient.[facility] HospitalIn the event this information is protected by the Federal Confidentiality of Alcohol and Drug Abuse Patient Records regulations: The Federal rules restrict any use of the information to criminally investigate or prosecute any alcohol or drug abuse patient.[facility] HospitalIn the event this information is protected by the Federal Confidentiality of Alcohol and Drug Abuse Patient Records regulations: The Federal rules restrict any use of the information to criminally investigate or prosecute any alcohol or drug abuse patient.[facility] HospitalIn the event this information is protected by the Federal Confidentiality of Alcohol and Drug Abuse Patient Records regulations: The Federal rules restrict any use of the information to criminally investigate or prosecute any alcohol or drug abuse patient.[facility] HospitalIn the event this information is protected by the Federal Confidentiality of Alcohol and Drug Abuse Patient Records regulations: The Federal rules restrict any use of the information to criminally investigate or prosecute any alcohol or drug abuse patient.[facility] HospitalIn the event this information is protected by the Federal Confidentiality of Alcohol and Drug Abuse Patient Records regulations: The Federal rules restrict any use of the information to criminally investigate or prosecute any alcohol or drug abuse patient.[facility] HospitalIn the event this information is protected by the Federal Confidentiality of Alcohol and Drug Abuse Patient Records regulations: The Federal rules restrict any use of the information to criminally investigate or prosecute any alcohol or drug abuse patient.[facility] HospitalIn the event this information is protected by the Federal Confidentiality of Alcohol and Drug Abuse Patient Records regulations: The Federal rules restrict any use of the information to criminally investigate or prosecute any alcohol or drug abuse patient.[facility] HospitalIn the event this information is protected by the Federal Confidentiality of Alcohol and Drug Abuse Patient Records regulations: The Federal rules restrict any use of the information to criminally investigate or prosecute any alcohol or drug abuse patient.[facility] HospitalIn the event this information is protected by the Federal Confidentiality of Alcohol and Drug Abuse Patient Records regulations: The Federal rules restrict any use of the information to criminally investigate or prosecute any alcohol or drug abuse patient.[facility] HospitalIn the event this information is protected by the Federal Confidentiality of Alcohol and Drug Abuse Patient Records regulations: The Federal rules restrict any use of the information to criminally investigate or prosecute any alcohol or drug abuse patient.[facility] HospitalIn the event this information is protected by the Federal Confidentiality of Alcohol and Drug Abuse Patient Records regulations: The Federal rules restrict any use of the information to criminally investigate or prosecute any alcohol or drug abuse patient.[facility] HospitalIn the event this information is protected by the Federal Confidentiality of Alcohol and Drug Abuse Patient Records regulations: The Federal rules restrict any use of the information to criminally investigate or prosecute any alcohol or drug abuse patient.[facility] HospitalIn the event this information is protected by the Federal Confidentiality of Alcohol and Drug Abuse Patient Records regulations: The Federal rules restrict any use of the information to criminally investigate or prosecute any alcohol or drug abuse patient.[facility] HospitalIn the event this information is protected by the Federal Confidentiality of Alcohol and Drug Abuse Patient Records regulations: The Federal rules restrict any use of the information to criminally investigate or prosecute any alcohol or drug abuse patient.[facility] HospitalIn the event this information is protected by the Federal Confidentiality of Alcohol and Drug Abuse Patient Records regulations: The Federal rules restrict any use of the information to criminally investigate or prosecute any alcohol or drug abuse patient.[facility] HospitalIn the event this information is protected by the Federal Confidentiality of Alcohol and Drug Abuse Patient Records regulations: The Federal rules restrict any use of the information to criminally investigate or prosecute any alcohol or drug abuse patient.[facility] HospitalIn the event this information is protected by the Federal Confidentiality of Alcohol and Drug Abuse Patient Records regulations: The Federal rules restrict any use of the information to criminally investigate or prosecute any alcohol or drug abuse patient.[facility] HospitalIn the event this information is protected by the Federal Confidentiality of Alcohol and Drug Abuse Patient Records regulations: The Federal rules restrict any use of the information to criminally investigate or prosecute any alcohol or drug abuse patient.[facility] ClinicIn the event this information is protected by the Federal Confidentiality of Alcohol and Drug Abuse Patient Records regulations: The Federal rules restrict any use of the information to criminally investigate or prosecute any alcohol or drug abuse patient.[facility] HospitalIn the event this information is protected by the Federal Confidentiality of Alcohol and Drug Abuse Patient Records regulations: The Federal rules restrict any use of the information to criminally investigate or prosecute any alcohol or drug abuse patient.[facility] HospitalIn the event this information is protected by the Federal Confidentiality of Alcohol and Drug Abuse Patient Records regulations: The Federal rules restrict any use of the information to criminally investigate or prosecute any alcohol or drug abuse patient.[facility] HospitalIn the event this information is protected by the Federal Confidentiality of Alcohol and Drug Abuse Patient Records regulations: The Federal rules restrict any use of the information to criminally investigate or prosecute any alcohol or drug abuse patient.[facility] HospitalIn the event this information is protected by the Federal Confidentiality of Alcohol and Drug Abuse Patient Records regulations: The Federal rules restrict any use of the information to criminally investigate or prosecute any alcohol or drug abuse patient.[facility] HospitalIn the event this information is protected by the Federal Confidentiality of Alcohol and Drug Abuse Patient Records regulations: The Federal rules restrict any use of the information to criminally investigate or prosecute any alcohol or drug abuse patient.[facility] HospitalIn the event this information is protected by the Federal Confidentiality of Alcohol and Drug Abuse Patient Records regulations: The Federal rules restrict any use of the information to criminally investigate or prosecute any alcohol or drug abuse patient.[facility] HospitalIn the event this information is protected by the Federal Confidentiality of Alcohol and Drug Abuse Patient Records regulations: The Federal rules restrict any use of the information to criminally investigate or prosecute any alcohol or drug abuse patient.[facility] HospitalIn the event this information is protected by the Federal Confidentiality of Alcohol and Drug Abuse Patient Records regulations: The Federal rules restrict any use of the information to criminally investigate or prosecute any alcohol or drug abuse patient.[facility] HospitalIn the event this information is protected by the Federal Confidentiality of Alcohol and Drug Abuse Patient Records regulations: The Federal rules restrict any use of the information to criminally investigate or prosecute any alcohol or drug abuse patient.[facility] HospitalIn the event this information is protected by the Federal Confidentiality of Alcohol and Drug Abuse Patient Records regulations: The Federal rules restrict any use of the information to criminally investigate or prosecute any alcohol or drug abuse patient.[facility] HospitalIn the event this information is protected by the Federal Confidentiality of Alcohol and Drug Abuse Patient Records regulations: The Federal rules restrict any use of the information to criminally investigate or prosecute any alcohol or drug abuse patient.[facility] HospitalIn the event this information is protected by the Federal Confidentiality of Alcohol and Drug Abuse Patient Records regulations: The Federal rules restrict any use of the information to criminally investigate or prosecute any alcohol or drug abuse patient.[facility] HospitalIn the event this information is protected by the Federal Confidentiality of Alcohol and Drug Abuse Patient Records regulations: The Federal rules restrict any use of the information to criminally investigate or prosecute any alcohol or drug abuse patient.[facility] HospitalIn the event this information is protected by the Federal Confidentiality of Alcohol and Drug Abuse Patient Records regulations: The Federal rules restrict any use of the information to criminally investigate or prosecute any alcohol or drug abuse patient.[facility] HospitalIn the event this information is protected by the Federal Confidentiality of Alcohol and Drug Abuse Patient Records regulations: The Federal rules restrict any use of the information to criminally investigate or prosecute any alcohol or drug abuse patient.[facility] HospitalIn the event this information is protected by the Federal Confidentiality of Alcohol and Drug Abuse Patient Records regulations: The Federal rules restrict any use of the information to criminally investigate or prosecute any alcohol or drug abuse patient.[facility] Care Teams (unrecognized sec tion and content) Restorative Care Technician Relationship Specialty Start Date End Date Jimenez Stewart Jr. PCP - General Internal Medicine 08/27/12 Restorative Care Technician Relationship Specialty Start Date End Date Jimenez Stewart Jr. PCP - General Internal Medicine 08/27/12 Restorative Care Technician Relationship Specialty Start Date End Date Jimenez Stewart Jr. PCP - General Internal Medicine 08/27/12 Restorative Care Technician Relationship Specialty Start Date End Date Jimenez Stewart Jr. PCP - General Internal Medicine 08/27/12 Restorative Care Technician Relationship Specialty Start Date End Date Jimenez Stewart Jr. PCP - General Internal Medicine 08/27/12 Restorative Care Technician Relationship Specialty Start Date End Date Jimenez Stewart Jr. PCP - General Internal Medicine 08/27/12 Restorative Care Technician Relationship Specialty Start Date End Date Jimenez Stewart Jr., MD PCP - General Internal Medicine 08/27/12 Restorative Care Technician Relationship Specialty Start Date End Date Jimenez Stewart Jr., MD PCP - General Internal Medicine 08/27/12 Restorative Care Technician Relationship Specialty Start Date End Date Jimenez Stewart Jr., MD PCP - General Internal Medicine 08/27/12 Restorative Care Technician Relationship Specialty Start Date End Date Jimenez Stewart Jr., MD PCP - General Internal Medicine 08/27/12 Restorative Care Technician Relationship Specialty Start Date End Date Jimenez Stewart Jr., MD PCP - General Internal Medicine 08/27/12 Team Status: Active Member Role Status Dates Rae Aguayo POLICY CHANGE CLERKS SUPERVISOR, POLICY CHANGE CLERKS SUPERVISOR-C Family Provider Active Jimenez Cabrera POLICY CHANGE CLERKS SUPERVISOR, POLICY CHANGE CLERKS SUPERVISOR-C Primary Care Provider Active Team Status: Inactive Member Role Status Dates Jimenez Cabrera POLICY CHANGE CLERKS SUPERVISOR, POLICY CHANGE CLERKS SUPERVISOR-C Primary Care Provider Active Dr. Thomas Atwood DO Emergency Provider Active Team Status: Inactive Member Role Status Dates Jimenez Cabrera POLICY CHANGE CLERKS SUPERVISOR, POLICY CHANGE CLERKS SUPERVISOR-C Primary Care Provider Active Ed Physician Provider Emergency Provider Active Team Status: Inactive Member Role Status Dates Jimenez Cabrera POLICY CHANGE CLERKS SUPERVISOR, POLICY CHANGE CLERKS SUPERVISOR-C Primary Care Provider, Referring Provider Active Lyudmila MENDEZ PA Attending Provider Active Team Status: Inactive Member Role Status Dates Jimenez Cabrera POLICY CHANGE CLERKS SUPERVISOR, POLICY CHANGE CLERKS SUPERVISOR-C Primary Care Provider Active Dr. Delgado Engle MD Attending Provider Active Team Status: Active Member Role Status Dates Jimenez Cabrera POLICY CHANGE CLERKS SUPERVISOR, POLICY CHANGE CLERKS SUPERVISOR-C Primary Care Provider, Referring Provider Active Dr. Vince Wall DO Attending Provider Active Team Status: Inactive Member Role Status Dates Jimenez Cabrera POLICY CHANGE CLERKS SUPERVISOR, POLICY CHANGE CLERKS SUPERVISOR-C Primary Care Provider Active Ed Physician Provider Attending Provider, Emergency Pr ovider Active Team Status: Inactive Member Role Status Dates Jimenez Cabrera POLICY CHANGE CLERKS SUPERVISOR, POLICY CHANGE CLERKS SUPERVISOR-C Primary Care Provider Active Lyudmila MENDEZ PA Attending Provider, Referring Provi ian Active Team Status: Inactive Member Role Status Dates Jimenez Cabrera POLICY CHANGE CLERKS SUPERVISOR, POLICY CHANGE CLERKS SUPERVISOR-C Primary Care Provider Active Dr. Carla Moore MD Attending Provider, Emergency Provider Active Team Status: Inactive Member Role Status Dates Jimenez Cabrera POLICY CHANGE CLERKS SUPERVISOR, POLICY CHANGE CLERKS SUPERVISOR-C Primary Care Provider, Referring Provider Active Dr. Vince Wall DO Attending Provider Active Team Status: Inactive Member Role Status Dates Jimenez Cabrera POLICY CHANGE CLERKS SUPERVISOR, POLICY CHANGE CLERKS SUPERVISOR-C Primary Care Provider Active Dr. Vince Wall DO Attending Provider, Referring Provider Active Team Status: Inactive Member Role Status Dates Jimenez Cabrera POLICY CHANGE CLERKS SUPERVISOR, POLICY CHANGE CLERKS SUPERVISOR-C Primary Care Provider, Referring Provider Active Joni Landis MD Attending Provider Active Team Status: Active Member Role Status Dates Jimenez Cabrera POLICY CHANGE CLERKS SUPERVISOR, POLICY CHANGE CLERKS SUPERVISOR-C Primary Care Provider Active Dr. Gordy Ruiz MD Attending Provider, Referrin g Provider Active Team Status: Inactive Member Role Status Dates Jimenez Cabrera POLICY CHANGE CLERKS SUPERVISOR, POLICY CHANGE CLERKS SUPERVISOR-C Primary Care Provider Active Dr. Gordy Ruiz MD Attending Provider, Referrin g Provider Active Team Status: Inactive Member Role Status Dates Jimenez Cabrera POLICY CHANGE CLERKS SUPERVISOR, POLICY CHANGE CLERKS SUPERVISOR-C Primary Care Provider Active Joni Landis MD Attending Provider, Referring Prov ider Active Team Status: Inactive Member Role Status Dates Jimenez Cabrera POLICY CHANGE CLERKS SUPERVISOR, POLICY CHANGE CLERKS SUPERVISOR-C Primary Care Provider Active Dr. Carla Moore MD Emergency Provider Active Restorative Care Technician Relationship Specialty Start Date End Date Jimenez Stewart Jr., MD PCP - General Internal Medicine 08/27/12 09/24/22 Restorative Care Technician Relationship Specialty Start Date End Date Iveth Hernandez, BLASTING CONTRACT MAN.COMMUNITY HEALTH PLANNING DIRECTOR [address] [place] [address] PCP - General Family Medicine 12/06/24 Restorative Care Technician Relationship Specialty Start Date End Date Iveth Hernandez BLASTING CONTRACT MAN.COMMUNITY HEALTH PLANNING DIRECTOR [address] [place] [address] PCP - General Family Medicine 12/06/24 Restorative Care Technician Relationship Specialty Start Date End Date Iveth Hernandez, BLASTING CONTRACT MAN.COMMUNITY HEALTH PLANNING DIRECTOR [address] [place] [address] PCP - General Family Medicine 12/06/24 Restorative Care Technician Relationship Specialty Start Date End Date QueIveth antonio A, BLASTING CONTRACT MAN.COMMUNITY HEALTH PLANNING DIRECTOR [address] [place] [address] PCP - General Family Medicine 12/06/24 Restorative Care Technician Relationship Specialty Start Date End Date Iveth Hernandez A, BLASTING CONTRACT MAN.COMMUNITY HEALTH PLANNING DIRECTOR [address] [place] [address] PCP - General Family Medicine 12/06/24 Restorative Care Technician Relationship Specialty Start Date End Date Iveth Hernandez A, BLASTING CONTRACT MAN.COMMUNITY HEALTH PLANNING DIRECTOR [address] [place] [address] PCP - General Family Medicine 12/06/24 Restorative Care Technician Relationship Specialty Start Date End Date Iveth Hernandez A, BLASTING CONTRACT MAN.COMMUNITY HEALTH PLANNING DIRECTOR [address] [place] [address] PCP - General Family Medicine 12/06/24 Restorative Care Technician Relationship Specialty Start Date End Date Iveth Hernandez A, BLASTING CONTRACT MAN.COMMUNITY HEALTH PLANNING DIRECTOR [address] [place] [address] PCP - General Family Medicine 12/06/24 Restorative Care Technician Relationship Specialty Start Date End Date Iveth Hernandez A, BLASTING CONTRACT MAN.COMMUNITY HEALTH PLANNING DIRECTOR [address] [place] [address] PCP - General Family Medicine 12/06/24 Restorative Care Technician Relationship Specialty Start Date End Date Iveth Hernandez A, BLASTING CONTRACT MAN.COMMUNITY HEALTH PLANNING DIRECTOR [address] [place] [address] PCP - General Family Medicine 12/06/24 Restorative Care Technician Relationship Specialty Start Date End Date Queden, Iveth A, BLASTING CONTRACT MAN.COMMUNITY HEALTH PLANNING DIRECTOR [address] [place] [address] PCP - General Family Medicine 12/06/24 Restorative Care Technician Relationship Specialty Start Date End Date Queden, Iveth A, BLASTING CONTRACT MAN.COMMUNITY HEALTH PLANNING DIRECTOR [address] [place] [address] PCP - General Family Medicine 12/06/24 Restorative Care Technician Relationship Specialty Start Date End Date Queden, Iveth A, BLASTING CONTRACT MAN.COMMUNITY HEALTH PLANNING DIRECTOR [address] [place] [address] PCP - General Family Medicine 12/06/24 Restorative Care Technician Relationship Specialty Start Date End Date Queden, Iveth A, BLASTING CONTRACT MAN.COMMUNITY HEALTH PLANNING DIRECTOR [address] [place] [address] PCP - General Family Medicine 12/06/24 Restorative Care Technician Relationship Specialty Start Date End Date Queden, Iveth A, BLASTING CONTRACT MAN.COMMUNITY HEALTH PLANNING DIRECTOR [address] [place] [address] PCP - General Family Medicine 12/06/24 Restorative Care Technician Relationship Specialty Start Date End Date Queden, Iveth A, BLASTING CONTRACT MAN.COMMUNITY HEALTH PLANNING DIRECTOR [address] [place] [address] PCP - General Family Medicine 12/06/24 Restorative Care Technician Relationship Specialty Start Date End Date Queden, Iveth A, BLASTING CONTRACT MAN.COMMUNITY HEALTH PLANNING DIRECTOR [address] [place] [address] PCP - General Family Medicine 12/06/24 Restorative Care Technician Relationship Specialty Start Date End Date Iveth Hernandez, BLASTING CONTRACT MAN.COMMUNITY HEALTH PLANNING DIRECTOR [address] [facility], [place] [id number] PCP - General Family Medicine 12/06/24 Team Status: Active Member Role/Relationship Status Dates Jimenez Cabrera POLICY CHANGE CLERKS SUPERVISOR, POLICY CHANGE CLERKS SUPERVISOR-C Primary Care Provider Active Team Status: Inactive Member Role/Relationship Status Dates Jimenez Cabrera POLICY CHANGE CLERKS SUPERVISOR, POLICY CHANGE CLERKS SUPERVISOR-C Primary Care Provider Active Start: March 06, 2025 End: March 06, 2025 Dr. Hailee Weiss , Emergency Provider Active Start: March 06, 2025 End: March 06, 2025 Restorative Care Technician Relationship Specialty Start Date End Date Iveth Hernandez, BLASTING CONTRACT MAN.COMMUNITY HEALTH PLANNING DIRECTOR [address] [place] [address] PCP - General Family Medicine 12/06/24 Restorative Care Technician Relationship Specialty Start Date End Date Iveth Hernandez, BLASTING CONTRACT MAN.COMMUNITY HEALTH PLANNING DIRECTOR [address] [facility], [place] [id number] PCP - General Family Medicine 12/06/24 Restorative Care Technician Relationship Specialty Start Date End Date Iveth Hernandez, BLASTING CONTRACT MAN.COMMUNITY HEALTH PLANNING DIRECTOR [address] [place] [address] PCP - General Family Medicine 12/06/24 Carla Moody, CANDELARIA Primary Care Viticulturist 03/09/25 Tania Alonso, CANDELARIA Primary Care Viticulturist 03/09/25 03/09/25 Restorative Care Technician Relationship Specialty Start Date End Date Iveth Hernandez, BLASTING CONTRACT MAN.COMMUNITY HEALTH PLANNING DIRECTOR [address] [place] [address] PCP - General Family Medicine 12/06/24 Restorative Care Technician Relationship Specialty Start Date End Date Iveth Hernandez, BLASTING CONTRACT MAN.COMMUNITY HEALTH PLANNING DIRECTOR [address] [place] [address] PCP - General Family Medicine 12/06/24 Restorative Care Technician Relationship Specialty Start Date End Date Iveth Hernandez, BLASTING CONTRACT MAN.COMMUNITY HEALTH PLANNING DIRECTOR [address] [place] [address] PCP - General Family Medicine 12/06/24 Carla Moody, CANDELARIA Primary Care Viticulturist 03/09/25 03/10/25 Restorative Care Technician Relationship Specialty Start Date End Date Iveth Hernandez, BLASTING CONTRACT MAN.COMMUNITY HEALTH PLANNING DIRECTOR [address] [place] [address] PCP - General Family Medicine 12/06/24 Restorative Care Technician Relationship Specialty Start Date End Date Iveth Hernandez, BLASTING CONTRACT MAN.COMMUNITY HEALTH PLANNING DIRECTOR [address] [place] [address] PCP - General Family Medicine 12/06/24 Restorative Care Technician Relationship Specialty Start Date End Date Ievth Hernandez, BLASTING CONTRACT MAN.COMMUNITY HEALTH PLANNING DIRECTOR [address] [place] [address] PCP - General Family Medicine 12/06/24 Restorative Care Technician Relationship Specialty Start Date End Date Iveth Hernandez, BLASTING CONTRACT MAN.COMMUNITY HEALTH PLANNING DIRECTOR [address] [place] [address] PCP - General Family Medicine 12/06/24 Restorative Care Technician Relationship Specialty Start Date End Date Iveth Hernandez, BLASTING CONTRACT MAN.COMMUNITY HEALTH PLANNING DIRECTOR [address] [place] [address] PCP - General Family Medicine 12/06/24 Restorative Care Technician Relationship Specialty Start Date End Date Queden, Iveth A, BLASTING CONTRACT MAN.COMMUNITY HEALTH PLANNING DIRECTOR [address] [place] [address] PCP - General Family Medicine 12/06/24 Restorative Care Technician Relationship Specialty Start Date End Date Queden, Iveth A, BLASTING CONTRACT MAN.COMMUNITY HEALTH PLANNING DIRECTOR [address] [place] [address] PCP - General Family Medicine 12/06/24 Restorative Care Technician Relationship Specialty Start Date End Date Queden, Iveth A, BLASTING CONTRACT MAN.COMMUNITY HEALTH PLANNING DIRECTOR [address] [place] [address] PCP - General Family Medicine 12/06/24 Restorative Care Technician Relationship Specialty Start Date End Date Queden, Iveth A, BLASTING CONTRACT MAN.COMMUNITY HEALTH PLANNING DIRECTOR [address] [place] [address] PCP - General Family Medicine 12/06/24 Restorative Care Technician Relationship Specialty Start Date End Date Queden, Iveth A, BLASTING CONTRACT MAN.COMMUNITY HEALTH PLANNING DIRECTOR [address] [place] [address] PCP - General Family Medicine 12/06/24 Restorative Care Technician Relationship Specialty Start Date End Date Queden, Iveth A, BLASTING CONTRACT MAN.COMMUNITY HEALTH PLANNING DIRECTOR [address] [place] [address] PCP - General Family Medicine 12/06/24 Restorative Care Technician Relationship Specialty Start Date End Date Queden, Iveth A, BLASTING CONTRACT MAN.COMMUNITY HEALTH PLANNING DIRECTOR [address] [place] [address] PCP - General Family Medicine 12/06/24 Restorative Care Technician Relationship Specialty Start Date End Date Iveth Hernandez APRN.GEMMA [address] [place] [address] PCP - General Family Medicine 12/06/24 Goals [...] section and content) DATE CREATED AUTHOR 04/10/2023 [facility] [place] ([place] DATE CREATED AUTHOR AUTHOR'S ORGANIZ ATION 03/16/2025 [facility] DATE CREATED AUTHOR AUTHOR'S ORGANIZ ATION 05/04/2025 [facility] DATE CREATED AUTHOR AUTHOR'S ORGANIZ ATION 05/13/2025 [facility] DATE CREATED AUTHOR AUTHOR'S ORGANIZ ATION 06/05/2025 [facility] DATE CREATED AUTHOR AUTHOR'S ORGANIZ ATION 06/19/2025 [facility] DATE CREATED AUTHOR AUTHOR'S ORGANIZ ATION 06/21/2025 [facility] Scheduled Active and Recently Administ ered Medications [...] Lima RN)[id number] (Given - Provider: Deyvi Coto APRN.CRNA) fentaNYL 50 mcg/mL 50 mcg injection (SUBLIMAZE) [...] (Given - Provid er: Marion Lima RN) traMADol 50 mg tab(s) (ULTRAM) (COMPLETED) [...] BE BASED ON THE PRIMARY CLINICAL RECORDS. [employer] provides no warranty or guarantee of the accuracy or completeness of information in this document.
--- NOTE | 2025-07-30 10:19 | EX.ED.GENINJ ---
HPI History of Present Illness Chief Complaint: Bite Narrative Narrative: Patient is a 50-year-old female presenting to the emergency department for a dog bite. Patient states that she was letting her friend and dog stated her house last night and the dog lunged at her and bit down on her right hand and wrist. States it did not break skin. She states then the dog lunged again at her right lower leg and did break skin with a bite. She is unsure if the dog is up to date on shots, but states she will text her friend and ask. She states her last tetanus shot was greater than 10 years ago. She denies any other injuries. [facility] Medical History Tear of medial meniscus of left knee Migraines History of epilepsy Home Medications ?Medication ?Instructions ?Recorded ?Last Taken ?Type rimegepant 75 mg disintegrating 75 mg PO Q48H 12/16/20 Unknown History tablet (Nurtec ODT) lamotrigine 200 mg tablet,extended 200 mg PO TID 03/18/21 03/05/25 History release 24 hr trazodone 50 mg tablet 50 mg PO DAILY 04/05/21 03/05/25 History sertraline 50 mg tablet (Zoloft) 50 mg PO DAILY 03/27/22 03/05/25 History celecoxib 200 mg capsule 200 mg PO BID Pain #30 caps 09/14/23 03/05/25 Rx levothyroxine 88 mcg tablet 88 mcg PO DAILY 03/06/25 03/05/25 History doxycycline hyclate 100 mg tablet 100 mg PO BID 7 days #14 tabs 07/30/25 Unknown Rx metronidazole 500 mg tablet 500 mg PO TID 7 days #21 tabs 07/30/25 Unknown Rx Allergy/AdvReac Type Severity Reaction Status Date / Time aspirin Allergy Rash Verified 07/30/25 10:00 codeine Allergy Rash Verified 07/30/25 10:00 Fish Containing Products Allergy Rash Verified 07/30/25 10:00 morphine Allergy Rash Verified 07/30/25 10:00 Penicillins Allergy Rash Verified 07/30/25 10:00 shellfish derived Allergy Rash Verified 07/30/25 10:00 diphenhydramine HCl (From AdvReac Other Verified 07/30/25 10:00 Benadryl) promethazine HCl (From AdvReac Other Verified 07/30/25 10:00 Phenergan) Surgical History H/O wrist surgery History of hysterectomy Social History Smoking Status: Current every day smoker tobacco type: e-cigarettes substance use type: does not use ROS ROS ED ROS Narrative see HPI EXAM Physical Exam Narrative Exam Narrative: Vital signs: Reviewed General: Alert and oriented x 3. No acute distress. Well-appearing, nontoxic. HEENT: Head is normocephalic and atraumatic, sinuses nontender, pupils equal round and reactive. Nares are patent. Oropharynx and throat exams normal. Neck: Supple without lymphadenopathy nontender Cardiovascular: Regular rate and rhythm, no murmurs. No rubs or gallops. Normal S1 and S2 Respiratory: Clear to auscultation bilaterally. No wheezes, rales, rhonchi Abdominal: Soft and nontender. Normal bowel sounds. No guarding or rebound. Nonsurgical abdomen Extremities: Very mild ecchymosis to the dorsal proximal right hand with tenderness to palpation. Radial pulse intact. No tenderness to palpation of the forearm. Normal active ROM of the RUE. There are no breaks in the skin or bites to the RUE. There is one puncture wound to the right proximal lateral calf. No active bleeding. Mild ecchymosis surrounding the bite. No tenderness to palpation. No foreign body seen on wound exploration. The rest of the physical exam is unremarkable Const Vital Signs: 07/30/25 09:58 Temperature 97.2 F L Temperature Source Temporal Pulse Rate 88 Respiratory Rate 15 Blood Pressure 107/66 Blood Pressure Mean 79 Pulse Ox 100 Oxygen Delivery Method Room Air MDM MDM MDM Narrative Medical decision making narrative: Patient is a 50-year-old female presenting to the emergency department for dog bite. Patient was seen and examined. Vitals are stable. Patient resting bed comfortably no acute distress. Tetanus vaccine was updated. Will give first dose of abx here. Right hand x-ray was obtained given the tenderness and bruising however I doubt any fracture or dislocation. Neurovascularly intact. The small puncture wound on the right leg does not require any repair especially since it is a dog bite. Will prescribe Augmentin for home. Patient has a rash allergy to penicillins when she was a child, patient states she is uncomfortable trying augmentin here. Will prescribe doxy and flagyl instead of augmentin. Explained she cannot drink alcohol while on this. She verbalizes understanding. Patient did contact the dog's general dentist/owner and the dog is up-to-date on vaccinations, no need for rabies prophylaxis or immunoglobulin. Hand x-ray was reviewed by myself, no fractures, dislocations or radiopaque foreign body seen. Radiology read in agreement. Patient was given wound care instructions including washing for signs of infection which were discussed. Patient discharged from the Emergency Department. I do not feel that the patient's evaluation reveals any acute reason for admission at this time. I instructed them to either follow-up with their primary care physician or promptly return to the Emergency Department for reevaluation should symptoms worsen or new symptoms develop. I explained what symptoms would indicate the need to return to the emergency department. Shared decision making was used. The patient voiced understanding of the treatment plan and is agreeable with it. Clinical impression Dog bite History & Record Review Discussion w/independent historian: Patient Radiography X-Ray: Read by ED Physician and No Fracture Diagnostic Testing: Clinical Impression(s) from Imaging Studies Hand X-Ray 07/30/25 11:00 IMPRESSION: Degenerative changes of the right hand and wrist without acute fracture or subluxation. No radiopaque foreign bodies. Reading Location: [id number] Discharge Plan Triage Chief Complaint: Bite ED Provider: Francisca Brown Dx/Rx/DC Orders Clinical Impression: Dog bite Instructions: ED Dog Bite Prescriptions: New metronidazole 500 mg tablet 500 mg PO TID 7 Days Qty: 21 0RF doxycycline hyclate 100 mg tablet 100 mg PO BID 7 Days Qty: 14 0RF No Action lamotrigine 200 mg tablet extended release 24hr 200 mg PO TID Patient Comments: TAKE 2 TABLETS BY MOUTH TWICE DAILY trazodone 50 mg tablet 50 mg PO DAILY celecoxib 200 mg capsule 200 mg PO BID Qty: 30 0RF Rx Instructions: Do not take in conjunction with other NSAIDs. Tylenol is okay. Nurtec ODT 75 mg Tablet,Disintegrating 75 mg PO Q48H sertraline [Zoloft] 50 mg Tablet 50 mg PO DAILY levothyroxine 88 mcg tablet 88 mcg PO DAILY Primary Care Provider: Jimenez Cabrera NP Referrals: Jimenez Cabrera [employer], [employer] [Primary Care Provider, Family Practice] - As soon as possible Activity Restrictions/Additional Instructions: Take the antibiotics as prescribed. Do not drink alcohol while on these antibiotics. Watch the bite for signs of infection which include redness, warmth, swelling or drainage. You need to return for any of these symptoms. Your evaluation in the Emergency Department did not reveal any acute reason for admission. However, I want to emphasize that you may be early in the course of a disease process or illness even if it is not present. For this reason you should follow-up within 24 hours for reevaluation with either your primary care physician or if necessary back here in the Emergency Department. You should return to the Emergency Department immediately if your symptoms worsen or new symptoms develop. Print Language: Yemeni Disposition Disposition: Home, Self Care
--- NOTE | 2025-07-30 11:00 | RAD_ITS ---
PROCEDURE: HAND MIN 3 VIEWS 07/30/2025 REASON FOR EXAM: DOG BITE, BRUISING TO HAND TECHNIQUE: Procedure Code: [facility] Modality: DX Procedure: HAND MIN 3 VIEWS COMPARISON: Right wrist radiographs from December 15, 2021 FINDINGS: Radiographs of the right hand demonstrate anatomic alignment without acute fracture or subluxation. No radiopaque foreign bodies. 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 Carpometacarpal degenerative changes as well as degenerative changes of the distal 2nd through 5th interphalangeal joints. Soft tissues are within normal limits for age. RAD/Hand Min 3 Views IMPRESSION: Degenerative changes of the right hand and wrist without acute fracture or subl uxation. No radiopaque foreign bodies. Reading Location: [id number]
[2025-07-30 12:03] VITALS: BP 138/64; PULSE 82; RESP 16; TEMP 36.6; O2SAT 99
[2025-07-30 12:05] VITALS: BP 138/64; PULSE 82; RESP 16; TEMP 36.6; O2SAT 99
== END 2025-07-30 12:06 | disposition home or self-care (01) ==
PROVIDERS: Emergency Provider Student in an Organized Health Care Education/Training Program; PCP Nurse Practitioner Family; Visit Provider Student in an Organized Health Care Education/Training Program
DX: S81.851A Open bite, right lower leg, initial encounter (principal); F17.220 Nicotine dependence, chewing tobacco, uncomplicated; W54.0XXA Bitten by dog, initial encounter; S60.571A Other superficial bite of hand of right hand, initial encounter; Z23 Encounter for immunization
CPT/HCPCS: 73130; 90471; 90715; 99282